=== PATIENT | male | born 1945 | race Caucasian/White ===

== ENCOUNTER → 2017-12-23 06:42 | Outpatient (CLI) | payer MEDICARE, SELFPAY ==
--- NOTE | 2017-12-23 06:42 | DT_ITS ---
This patient was seen during an EMR downtime December 19, 2017 - December 26, 2017. This patient may have a combination of paper and electronic documentation or all paper documentation. All documentation is viewable within the e-chart portion of [employer] for each patient visit.
--- NOTE | 2017-12-23 06:46 | AAAS_ITS ---
Reason For Study: AAA Aorta Measurements Aorta Doppler Measurements Proximal aorta measures1.34 x 1.43cm. in cross- Peak systolic flow velocities within the proximal sectional axis. aorta measure 127 cm/sec. Proximal aorta measures1.34cm. in longitudinal Peak systolic flow velocities within the mid axis. aorta measure 94.9 cm/sec. Mid aorta measures1.52 x 1.45cm. in cross- Peak systolic flow velocities within the distal sectional axis. aorta measure 84.8 cm/sec. Mid aorta measures1.42cm. in longitudinal axis. Distal aorta measures1.35 x 1.36cm. in cross- sectional axis. Distal aorta measures1.36cm. in longitudinal axis. Left Iliac Artery Left iliac artery measures .818 x .800 cm. in the cross-sectional axis. Left iliac artery measures .768 cm. in the longitudinal axis. Peak systolic velocity in the left iliac artery measures 136 cm/sec. Right Iliac Artery Right iliac artery measures .749 x .818 cm. in the cross-sectional axis. Right iliac artery measures .819 cm. in the longitudinal axis. Peak systolic velocity in the right iliac artery measures 83.0 cm/sec. Interpretation Summary No evidence for abdominal aortic aneurysm with maximal mid aortic diameter of 1.52 x 1.45cm Elevated proximal aortic velocities consisten with mild occlusive disease. Normal iliac diameters. Ordering Physician: Luan Brown Performed By: Jaskaran Saini, RVT
--- NOTE | 2017-12-23 06:46 | CT_ITS ---
STUDY: CTA CHEST REASON FOR EXAM: Male, 72 years old. Stenosis and aneurysm RADIATION DOSAGE (If Supplied By Facility): CTDIvol = ( 13.90 ) mGy, DLP = ( 1310.00 ) mGycm TECHNIQUE: The examination was performed with the intravenous administration of 100ML ml of Isovue 370 contrast material. Post-processing of the angiographic images was performed, with multiplanar reformation and 3D reconstruction. Individualized dose optimization techniques were used for this CT. COMPARISON: None. FINDINGS: Normal enhancement of the main pulmonary artery and right and left pulmonary arteries. Normal enhancement of the bilateral peripheral pulmonary arteries. There is no demonstrated pulmonary embolism. Heavy aortic and great vessel calcifications. There is no demonstrated aortic dissection. Normal heart and pericardium. Normal mediastinum. Normal hilar regions. Normal visualized trachea and bronchi. The lungs are well expanded. Normal pulmonary parenchyma. Normal pleura. Normal chest wall structures. Right shoulder arthroplasty. Degenerative spinal changes. Remote rib trauma. Normal visualized upper abdomen. CT/CTA Chest W/WO Contrast IMPRESSION: No thoracic aortic aneurysm or pulmonary embolus. Heavy arterial calcifications. No acute pulmonary findings. Electronically Signed: Eligio Avery MD at 6:40 EDT Tel , Service support ,
--- NOTE | 2017-12-23 06:46 | CT_ITS ---
STUDY: CTA NECK WITH CONTRAST REASON FOR EXAM: Male, 72 years old. Stenosis RADIATION DOSAGE (If Supplied By Facility): CTDIvol = ( 13.90 ) mGy, DLP = ( 1310.00 ) mGycm TECHNIQUE: CT angiography with multi-detector data acquisition was performed from the aortic arch to the skull base following intravenous administration of 100ML ml of Isovue 370 contrast. MIP images were reconstructed from the axial data set. Post-processing of the angiographic images was performed, with multiplanar reformation and 3D reconstruction. Individualized dose optimization techniques were used for this CT. COMPARISON: 04/22/2015 report only FINDINGS: AORTIC ARCH: Extensive calcifications of the great vessels. Otherwise: Normal visualized aortic arch. Normal origins of the brachiocephalic, left common carotid, and left subclavian arteries. RIGHT CAROTID ARTERIES: Normal right common carotid artery (CCA). Heavy circumferential calcified plaque in the carotid bulb. No associated flow limiting stenosis. Residual lumen diameter is 3 mm. Heavy circumferential calcified plaque in the proximal ICA. 60% stenosis, with residual lumen diameter of 2 mm. Normal visualized cervical portion of the right internal carotid artery. Normal origin of the right external carotid artery (ECA). LEFT CAROTID ARTERIES: Normal left common carotid artery (CCA). Mild eccentric calcified plaque in the carotid bulb without flow-limiting stenosis. Residual lumen diameter is 4 mm. Heavy concentric calcified plaque in the proximal ICA without flow-limiting stenosis. Normal visualized cervical portion of the left internal carotid artery. Normal origin of the left external carotid artery (ECA). VERTEBRAL ARTERIES: The right vertebral artery terminates as the posterior inferior cerebellar artery, a normal anatomic variant. CT/CTA Neck W/WO Contrast IMPRESSION: Circumferential calcified plaque in the proximal right ICA with an associated 60% stenosis of that vessel. Heavy calcified plaque in the bilateral carotid bulbs without flow-limiting stenosis at those levels. Electronically Signed: Eligio Avery MD at 6:30 EDT Tel , Service support ,
== END ==
PROVIDERS: Family Provider Family Medicine; PCP Family Medicine; Visit Provider Surgery
DX: I71.4 Abdominal aortic aneurysm, without rupture (principal); I77.1 Stricture of artery; I65.29 Occlusion and stenosis of unspecified carotid artery
CPT/HCPCS: 70498; 71275; 76706; Q9967

== ENCOUNTER 2022-07-03 23:00 | Emergency (ER) | payer MEDICARE, SELFPAY ==
[2022-07-03 23:01] VITALS: BP 177/66; PULSE 88; RESP 18; TEMP 36.2; O2SAT 100
[2022-07-03 23:02] VITALS: BP 177/66; PULSE 88; RESP 16; TEMP 36.2; O2SAT 100; BMI 25.2
--- NOTE | 2022-07-04 00:09 | EDS_ITS ---
HPI History of Present Illness Chief Complaint: Lower Extremity Injury Detail of Chief Complaint: Right ankle redness Informant: patient Onset/Context/Timing Onset: Yesterday Context: Gradual Onset Current Severity: Moderate Maximum Severity: Moderate Narrative Narrative: Patient presents with erythema and pain along the medial aspect of his right ankle. He states he noted symptoms yesterday and is progressed today. He has a history of gout in his knee but has not had a flare in approximately 12 years. He denies any abrasions or skin breakdown to the area. No fever or chills. He is able to ambulate but walks with antalgic gait. [facility] Medical History CAD (coronary artery disease) Carotid stenosis Carotid stenosis, bilateral Chronic back pain GERD (gastroesophageal reflux disease) Gout HTN (hypertension) Osteoarthritis Prominent abdominal aortic pulsation Subclavian arterial stenosis Home Medications aspirin 81 mg tablet,delayed release (Adult Aspirin Regimen) 81 mg PO QDAY 12/09/17 [History Last Taken Unknown] lisinopril 20 mg tablet 20 mg PO QDAY 12/09/17 [History Last Taken Unknown] multivitamin 1 cap PO QDAY 12/09/17 [History Last Taken Unknown] simvastatin 20 mg tablet 20 mg PO QPM 12/09/17 [History Last Taken Unknown] omeprazole 20 mg capsule,delayed release 20 mg PO DAILY 07/03/22 [History Last Taken Unknown] doxycycline monohydrate 100 mg capsule 100 mg PO BID #20 caps 07/04/22 [Rx Last Taken Unknown] hydrocodone-acetaminophen 5-325mg 5mg-325mg 1 tab PO Q6H PRN pain 3 days #10 tabs 07/04/22 [Rx Last Taken Unknown] prednisone 20 mg tablet 40 mg PO DAILY #10 tabs 07/04/22 [Rx Last Taken Unknown] Allergy/AdvReac Type Severity Reaction Status Date / Time No Known Allergies Allergy Verified 12/09/17 14:15 Family History Mother CVA (cerebral vascular accident) Heart disease Hypertension Surgical History S/P eye surgery S/P hip replacement S/P knee replacement S/P shoulder replacement Social History Smoking Status: Never smoker ROS ROS ED Constitutional Constitutional ED: Denies chills or fever(s) Eyes Eyes: Denies change in vision or discharge from eye(s) ENT ENT ED: Denies discharge from eye(s), rhinorrhea or sore throat Cardiovascular Cardiovascular: Denies chest pain or palpitations Respiratory/Chest Respiratory/Chest: Denies cough or dyspnea Gastrointestinal Gastrointestinal: Denies abdominal pain, nausea or vomiting Musculoskeletal Musculoskeletal: Reports extremity pain; Denies back pain Integumentary Reports rash; Denies Abrasions Neurologic Neurologic: Denies headache(s) or weakness Psychiatric Psychiatric: Denies anxiety or depression Allergic/Immunologic Allergic/Immunologic ED: Denies lip swelling or urticaria EXAM Physical Exam Const Vital Signs: 07/03/22 23:02 07/03/22 23:01 Temperature 97.1 F L 97.1 F L Temperature Source Temporal Temporal Pulse Rate 88 88 Respiratory Rate 16 18 Blood Pressure 177/66 H 177/66 H Blood Pressure Mean 103 103 Pulse Ox 100 100 Oxygen Delivery Method Room Air Room Air Positive well nourished and well developed General Appearance ED: well developed HEENT Reports normocephalic and head/scalp atraumatic Eyes PERRL and EOMs intact bilaterally Neck supple Chest Wall inspection of chest normal and palpation of chest normal Resp normal respiratory effort and clear to auscultation bilaterally Cardio regular rate and regular rhythm GI normal to inspection, nondistended, normoactive bowel sounds Palpation: soft Extremity Extremity Narrative: 5 cm diameter round area of erythema along the medial right ankle that is warm to the touch. There is no open skin wound. No calf tenderness or edema. Neuro oriented x3 and no sensory deficits noted Sensorium / Orientation: alert Motor Exam: strength 5/5 throughout Psych mental status grossly normal MDM MDM MDM Narrative Medical decision making narrative: I discussed with the patient that my suspicion is this is a gout flare. This could also represent a cellulitis. He will be covered with both steroids and antibiotics. I will also write him [place] for pain. was concerned about possible blood clot. While I think this is unlikely, I will have him come back tomorrow for an ultrasound when this is available to be thorough. Patient is comfortable with the plan. Discharge Plan Triage Chief Complaint: Lower Extremity Injury ED Provider: Keiko Munguia Dx/Rx/DC Orders Clinical Impression: Gout Instructions: ED Gout Prescriptions: New doxycycline monohydrate 100 mg capsule 100 mg PO BID Qty: 20 0RF hydrocodone-acetaminophen 5-325 mg tablet 1 tab PO Q6H PRN (Reason: pain) 3 Days Qty: 10 0RF prednisone 20 mg tablet 40 mg PO DAILY Qty: 10 0RF No Action lisinopril 20 mg tablet 20 mg PO QDAY simvastatin 20 mg tablet 20 mg PO QPM aspirin [Adult Aspirin Regimen] 81 mg tablet,delayed release (DR/EC) 81 mg PO QDAY multivitamin capsule capsule 1 cap PO QDAY omeprazole 20 mg capsule,delayed release(DR/EC) 20 mg PO DAILY Other Ambulatory Orders: Venous Duplex US, Unilateral (Stat) Facility: [facility] - Location: [facility] Ordered By: Dr. Keiko Munguia Primary Care Provider: Nolan Vigil Referrals: Nolan Vigil MD [Primary Care Provider] - Zoran Cline DPM [Med Staff - Active Staff] - 5-7 Days Disposition Disposition: Home, Self Care Discharge Date/Time: 07/04/22 00:52
[2022-07-04] MEDS: HYDROcodone Bitartrate/Apap 5/325 Tablet PO (00:31)
[2022-07-04] MEDS: predniSONE 20 MG Tablet 60 MG PO (00:32)
[2022-07-04] MEDS: Doxycycline 100 MG CAPSULE PO (00:32)
== END 2022-07-04 00:52 | disposition home or self-care (01) ==
LOC: ED 07-04 00:26
PROVIDERS: Emergency Provider Emergency Medicine; PCP Family Medicine; Visit Provider Emergency Medicine
DX: M10.9 Gout, unspecified (principal); I25.10 Atherosclerotic heart disease of native coronary artery without angina pectoris; I10 Essential (primary) hypertension; M54.9 Dorsalgia, unspecified; G89.29 Other chronic pain; Z79.82 Long term (current) use of aspirin; Z79.899 Other long term (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; Z79.52 Long term (current) use of systemic steroids
CPT/HCPCS: 99283

== ENCOUNTER → 2022-07-04 | Outpatient (CLI) | payer MEDICARE, SELFPAY ==
--- NOTE | 2022-07-04 10:59 | VDLE_ITS ---
Reason For Study: RLE PAIN (ankle) RIGHT GSV is normal. CFV is compressible, spontaneous, phasic, competent and demonstrates normal augmentation. FV is compressible, spontaneous, phasic, competent and demonstrates normal augmentation. POP V is compressible, spontaneous, phasic, competent and demonstrates normal augmentation. T/P Trunk is compressible. PTV is compressible. RT PerV is compressible. Procedure This is a venous duplex using B-mode, color flow and spectral Doppler. Exam performed in department. A preliminary report was called and/or faxed to Nolan Vigil & ED. VL/Venous Duplex US, Unilateral Interpretation Summary Deep veins of the right lower extremity are patent and compressible segmentally . There is no evidence of right lower extremity deep vein thrombosis. The right great sapheno us vein appears patent and compressible segmentally. Ordering Physician: Keiko Munguia Referring Physician: Nolan Vigil Performed By: Dora Akins, DAVID, RVT
== END | disposition home or self-care (01) ==
LOC: VL 10:53
PROVIDERS: PCP Family Medicine; Referring Provider Emergency Medicine; Visit Provider Emergency Medicine
DX: M79.661 Pain in right lower leg (principal)
CPT/HCPCS: 93971

== ENCOUNTER → 2022-09-24 | Outpatient (CLI) | payer MEDICARE, SELFPAY ==
--- NOTE | 2022-09-24 10:48 | STRESSREP_ITS ---
Stress Test Report Date: 09/24/2022 Procedure: Pharmacologic stress nuclear imaging study Indications: Atrial fibrillation/dyspnea Consent: Per the patient Procedure: The patient underwent pharmacologic (Regadenoson 0.4mg ) evaluation with a peak heart rate of 111 beats per minute (77%predicted maximal heart rate) and a peak blood pressure of 120/62 mmHg. The baseline ECG demonstrated atrial fibrillation. The peak pharmacologic ECG demonstrated no significant changes. There were no cardiac dysrhythmias pretest, during pharmacologic infusion, or recovery. There was no complaint of chest discomfort during pharmacologic infusion or recovery. The patient was injected with 15.0 millicuries of technetium 99m Cardiolite and subsequently rest SPECT Cardiolite nuclear imaging was obtained in the horizontal long, vertical long, and short axis views. The patient underwent pharmacologic (Regadenoson) evaluation. The patient was injected with 45.0 millicuries of technetium 99m Cardiolite and subsequently stress SPECT Cardiolite nuclear imaging was obtained in the horizontal long, vertical long, and short axis views. A gated Cardiolite study at peak stress was obtained. The examination was stopped secondary to completion of protocol. Rest and stress SPECT Cardiolite nuclear imaging status post realignment, normalization, and attenuation correction demonstrate moderate apical and septal reversible defect. There is end systolic thickening and brightening. The gated Cardiolite study demonstrates myocardial thickening and inward wall motion. The reported LVEF is 49%. Impression: 1. Pharmacologic (Regadenoson) evaluation 2. Peak pharmacologic ECG with no ischemic changes. 3. There were no cardiac dysrhythmias pretest, during pharmacologic infusion, or recovery. 5. Moderate size anterior apical and septal reversible defect suggestive of ischemia. 6. The gated Cardiolite study reports an LVEF of 49%. This note was generated with [employer] software. It may contain incorrect words, spelling, and punctuation that were not noted in checking the note before signing.
== END | disposition home or self-care (01) ==
LOC: CVS 06:20
PROVIDERS: PCP Family Medicine; Referring Provider Internal Medicine Cardiovascular Disease; Visit Provider Internal Medicine Cardiovascular Disease
DX: I48.91 Unspecified atrial fibrillation (principal); I42.9 Cardiomyopathy, unspecified; R06.02 Shortness of breath
CPT/HCPCS: 78452; 93017; A9500; A4216; J2785

== ENCOUNTER 2022-10-06 12:33 | Observation (INO) | payer MEDICARE, SELFPAY ==
[2022-10-04 08:31] LABS: Hematocrit 36.7 % (40-54); Hemoglobin 11.9 g/dL (13.0-16.5); Mean Corp Hgb Conc 32.4 g/dL (32-36); Mean Corpuscular Hgb 30.3 pg (27.0-32.0); Mean Corpuscular Volume 93.4 fL (80-94); Mean Platelet Vol. 10.5 fl (6.2-12.0); Platelet Count 176 K/mm3 (150-450); RBC Distribution Width CV 14.8 % (11.6-14.6); RBC Distribution Width SD 49.7 fl (35.1-43.9); Red Blood Count 3.93 M/mm3 (4.6-6.2); White Blood Count 10.4 K/mm3 (4.4-11.0)
[2022-10-04 08:56] LABS: International Normalized Ratio 1.4; Prothrombin Time (Protime)PT. 16.4 SECONDS (11.7-14.9)
[2022-10-04 08:57] LABS: Partial Thromboplast Time 30.2 Seconds (24.1-36.2)
[2022-10-04 09:04] LABS: Anion Gap 7 (5-15); BUN 20 mg/dL (7-18); BUN/Creat Ratio 17.1 RATIO (10-20); Calcium,Total 8.9 mg/dL (8.5-10.1); Chloride 108 mmol/L (98-107); Creatinine, Serum 1.17 mg/dL (0.70-1.30); EST Glomerular Filtration Rate 64 mL/min (>60); Est Glom Filt Rate - Afr Amer 78 mL/min (>60); Glucose 100 mg/dL (74-106); Potassium 4.1 mmol/L (3.5-5.1); Sodium Level 140 mmol/L (136-145)
[2022-10-05 06:58] VITALS: BMI 25.2
[2022-10-06] VITALS (8 sets, daily range): BP systolic 110–146; BP diastolic 60–81; PULSE 60–85; RESP 16–17; TEMP 36.5–36.6; O2SAT 96–100
--- NOTE | 2022-10-06 12:21 | CL.I_ITS ---
Patient Name: TRINH FOX Study Date: 10/06/2022 Performing: Osbaldo Vernon MD Ht: 70 inches 177.8 cm : 1945 Wt: 176 lbs 79.83 kg Age: 77 Gender: male BSA: 1.98 PROCEDURE(S) PERFORMED DC01-(75116)LHC/COR/LV IC12-([id number])CALE W/WO PTCA, SINGLE CORONARY ARTERY IC10-([id number])FFR, CORONARY OR GRAFT, INITIAL VESSEL IC02-([id number])PTCA, EACH ADD'L CORONARY ART, SAME MAJOR CLINICAL PROFILE AND CO-MORBIDITIES Indications: Suspected CAD, Cardiomyopathy Heart Failure: None Stress/Imaging Stress Test w/SPECT MPI: Yes Result: Positive Intermediate Risk Stress Test with SPECT MPI: Positive Intermediate Risk CAD Presentations: Other: Dyspnea on exertion CONCLUSIONS LVEF 35% [place] Aorta Heavily calcified ulcerated lesion Prox Right Inominate Artery. Procedure completed through femoral approach. RECOMMENDATIONS Plavix for at least 12 months Continue Eliquis DESCRIPTION OF PROCEDURE The patient arrived to the procedure lab. The risks and benefits of the procedure as well as a full description of our services here and lack of surgical backup were fully explained to the patient and/or their significant other prior to the catheterization. The Timeout was completed, verifying the correct patient and procedure. The patient's procedural site was prepped and draped in the usual fashion. Local anesthetic was given subcutaneously to right radial region with Lidocaine 2%. Local anesthetic was given subcutaneously to right groin region with Lidocaine 2%. Using a modified Seldinger technique, arterial access was obtained via the right radial artery, a 6Fr sheath was inserted., arterial access was obtained via the right femoral artery, a 6Fr sheath was inserted.. Left Coronary Artery selective angiography was performed in multiple views using a 6 Fr. JL4 catheter. Right Coronary Artery selective angiography was then performed in multiple views using a 6 Fr. 3DRC (Peng) catheter. Left Ventriculography was performed in ARREAGA projection using a 6 Fr. Pigtail catheter. LV to AO pullback pressures were then recordedThe images were reviewed and options discussed. A decision was then made to proceed with an Intervention, IVUS or other adjunct procedure. The FFR/iFR wire was inserted. iFR measurements were performed. iFR Ratio: .85 The FFR/iFR wire was then removed. xb 3.0 Guide catheter was inserted and engaged into the LCA. runtrhough Guide wire was advanced to the 1st OM. emerge 2.00 x 15 Balloon catheter was advanced across lesion in the first obtuse marginal, ostial. PTCA balloon inflated at 8 atms for 15 secs. Angiogram performed post balloon dilatation. dee 2.5 x 18 Drug Eluting stent was advanced across the lesion in the first obtuse marginal, ostial. Angiogram performed post stent deployment. runthrough Guide wire was advanced to the Circumflex. 2.5 x 15 nc euphora Balloon catheter was inserted post stent. emerge 1.5 x 8 Balloon catheter was inserted on circ wire PTCA balloon inflated at 10 atms for 18 secs. emerge 2.0 x 8 Balloon catheter was advanced across lesion in the circumflex, mid. PTCA balloon inflated at 10 atms for 20 secs. Angiogram performed post balloon dilatation. nc emerge 2.75 x 8 Balloon catheter was inserted post stent. Angiogram performed post balloon dilatation. runthrough Guide wire was advanced to the OM1 dee 2.25 x 8 Drug Eluting stent was advanced across the lesion in the first obtuse marginal, ostial. nc euphora 2.5 x 15 Balloon catheter was inserted post stent. Angiogram performed post balloon dilatation. Contrast was injected through the sheath and the Right Iliac and Femoral artery were assessed for possible closure device. The arterial sheath was pulled and a Perclose closure device was deployed for hemostasis CORONARY ANGIOGRAPHY DOMINANCE: Right Dominant LEFT HEART ASSESSMENT Left Ventricular Ejection Fraction: by LV Gram 35 % Normal Left Ventricular End Diastolic Pressure LEFT MAIN: Calcified but no significant luminal stenosis LEFT ANTERIOR DESCENDING ARTERY: Heavily calcified Prox segment but no significant luminal stenosis; 50% Mid LAD LAD: Tubular 50% Mid lesion in LAD OM 1: Tubular 90% Ostial lesion in 1st OM RIGHT CORONARY ARTERY: Mild luminal irregularities INTERVENTION INFORMATION LESION SITE: 1st OM (Ostial) Lesion Complexity: Non-High/Non-C Pre Stenosis: 90 % Pre intervention TORSTEN flow: 3 PROCEDURE: Drug Eluting Stent with pre and post dilatation Post Stenosis: 0 % Post intervention TORSTEN flow: 3 Lesion Devices: Cordis 6 Fr XB3.0 100cm Guide Catheter Spreadsave (PNMsoft) Coronary FFR Wire Preston Sci EMERGE MR 2.00x15 BALLOON Medtronic Resolute Dee RX CALE 2.5x18 Medtronic NC EUPHORA RX 2.5x15 BALLOON Preston Sci NC EMERGE MR 2.75x08 BALLOON Terumo .014 180cm Runthrough Extra Floppy straight Medtronic Resolute Dee RX CALE 2.25x08 Preston Sci EMERGE MR 2.00x08 BALLOON LESION SITE: Circumflex (Mid) Lesion Devices: Cordis 6 Fr XB3.0 100cm Guide Catheter Terumo .014 180cm Runthrough Extra Floppy straight Preston Sci EMERGE MR 1.50x08 BALLOON COMPLICATIONS No Complications PROCEDURE MEDICATIONS Versed 1 mg IV Fentanyl 50 mcg IV Fentanyl 50 mcg IV Fentanyl 50 mcg IV Oxygen: 2 L/min via nasal cannula Aspirin (325mg) 1 Tabs PO 10/06/2022 08:38:15 Brilinta 180 mg PO 10/06/2022 11:05:20 Atropine 1mg/10ml 1 amp @ 10/06/2022 12:18:31 Heparin given IA 10/06/2022 10:21:14 Heparin 3000 unit(s) IV 10/06/2022 10:26:50 Heparin 2000 unit(s) IV 10/06/2022 11:05:11 Heparin 1000 unit(s) IV 10/06/2022 11:09:22 Heparin 2000 unit(s) IV 10/06/2022 11:09:48 Nitro 200 mcg IC 10/06/2022 11:09:11 Nitro 200 mcg IC 10/06/2022 11:09:11 Verapamil 2.5mg, Ntg 200mcgs, 2000 units of Heparin given IA 10/06/2022 10:21:14 SUMMARY OF HEMODYNAMIC DATA Time AIR REST ECG 10:16:47 AO 103/62 (77) SA 10:25:13 LV 133/6, 18 10:44:50 LV 146/7, 20 10:44:59 LV 132/15, 24 10:46:10 LVp 136/21, 35 10:46:18 AOp 135/53 (90) 10:46:26 ECG 12:20:11 12:20:11 Signed By Osbaldo Vernon MD On 10/06/2022 12:20:14 Osbaldo Vernon MD
--- NOTE | 2022-10-06 13:28 | CRPHASE1 ---
Patient Communication PHII Cardiac Rehab Discussed with Patient:: Yes Guide to Cardiac Rehab Given to Patient:: Yes Cardiac Rehab Facility Choice List Given to Patient:: Yes Choice Program [facility] CR PHII:: Communication Given to CR Choice Program Other:: Communication Given to CR Commercial Attorney:: Osbaldo Vernon Phase II Cardiac Rehab:: Yes Sessions:: 36 sessions - 3 days/wk, 12 weeks Cardiac Rehabilitation Info Cardiac Rehabilitation Program Information: Cardiac Rehab The cardiac rehab team at [facility] consists of highly skilled exercise physiologists, nurses, respiratory therapists and physicians working together with you. Our purpose is to help you have a full recovery and achieve the goals you set for yourself. Over the years many of our patients have returned to activities they assumed they would never do again! We can help restore your confidence and motivation to make lifestyle changes that can have a significant impact on your health and quality of life! We can help answer questions and concerns you may have about exercise, lifestyle, medications, diet, stress and anxiety which are common following a hospitalization. WE monitor ECG and vital signs during exercise and discuss your progress with you and report to your physician(s). Cardiac Rehab is proven to help reduce readmissions, improve functional capacity and lower recurrence of problems with your heart. Our Cardiac Rehab program is Certified by the [place] [employer]-Vascular and Pulmonary [employer] (AACVPR) and Accredited by the [place] [employer] through our [facility]. You can contact us at . We invite you to call us with your questions or to get started in our program. If you have other questions or concerns be sure to ask your physician/provider during your follow-up visit. WE look forward to seeing you!
--- NOTE | 2022-10-06 13:29 | CRPH1.INSTRU ---
General Education CAD and cardiac anatomy and function:: Patient communicates acknowledgment Explanation of diagnoses and procedures:: Patient communicates acknowledgment Sign/Symptoms of MN:: Patient communicates acknowledgment Antiplatelet therapy: Patient communicates acknowledgment Smoking Patient Nicotine/Smoking Risk Factors Are:: Non-smoker Recommendations Include:: Previous smoker; encourage continued cessation Nicotine/Smoking Response Code:: Patient communicates acknowledgment Dyslipidemia Patient Dyslipidemia Risk Factors Are:: Total Cholesterol, Triglycerides, HDL, LDL Recommendations Include:: Lipid profile not available, Reviewed NCEP/ATP guidelines, Therapeutic Lifestyle Change dietary guidelines Dyslipidemia Response Code:: Patient communicates acknowledgment Overweight/Obesity Patient Overweight/Obesity Risk Factors Are:: BMI Normal [24-29 & > 65 years old] Hypertension Recommendations Include:: Maintain BP <130/85, DASH dietary guidelines, Decrease/maintain normal body weight, Moderation of ETOH Hypertension:: Patient communicates acknowledgment Diabetes Patient Diabetes Risk Factors Are:: No documented hx of diabetes Metabolic Syndrome Recommendations Include:: Does not meet criteria Sedentary Recommendations Include:: Aerobic exercise 5-7 times/week for 20-30 minutes continuously, Benefits of regular exercise, Discussed home walking program, Monitored Outpatient Cardiac Rehab Sedentary Response Code:: Patient communicates acknowledgment Stress Recommendations Include:: Identification of stressors, and assessment of coping skills, Stress management techniques Stress Response Code:: Patient communicates acknowledgment
[2022-10-06] MEDS: 0.9% Normal Saline 1,000 ML 75 ML IV (14:45)
--- NOTE | 2022-10-06 14:55 | EKG12_ITS ---
Test Reason : POSTPCI Blood Pressure : / mmHG Vent. Rate : 086 BPM Atrial Rate : 000 BPM P-R Int : 000 ms QRS Dur : 138 ms QT Int : 396 ms P-R-T Axes : 000 -74 043 degrees QTc Int : 473 ms Atrial fibrillation with premature ventricular or aberrantly conducted complexes Right bundle branch block Left anterior fascicular block Bifascicular block Abnormal ECG Confirmed by DEEPAK VIDALES, PETER ([id number]), editorial director GRETEL ESPINO ([id number]) on 10/12/2022 9:08:49 AM Referred By: Osbaldo Vernon Confirmed By:PETER SOTELO MD
[2022-10-06] MEDS: Allopurinol 100 MG Tablet PO (18:14)
[2022-10-06] MEDS: Clopidogrel Bisulfate 300 MG Tablet PO (19:59)
[2022-10-06] MEDS: MELATONIN 10 MG TABLET 5 MG PO (21:52)
[2022-10-06] MEDS: Atorvastatin Calcium 10 MG Tablet PO (21:53)
[2022-10-07 04:17] VITALS: BP 115/84; PULSE 87; RESP 18; TEMP 36.8; O2SAT 95
[2022-10-07 05:50] LABS: Hemoglobin 10.9 g/dL (13.0-16.5); Mean Corp Hgb Conc 32.1 g/dL (32-36); Mean Corpuscular Hgb 30.1 pg (27.0-32.0); Mean Corpuscular Volume 93.9 fL (80-94); Mean Platelet Vol. 10.3 fl (6.2-12.0); Platelet Count 156 K/mm3 (150-450); RBC Distribution Width CV 15.5 % (11.6-14.6); RBC Distribution Width SD 52.7 fl (35.1-43.9); Red Blood Count 3.62 M/mm3 (4.6-6.2); White Blood Count 9.3 K/mm3 (4.4-11.0)
[2022-10-07 06:21] LABS: AST(SGOT) 22 U/L (15-37); Alanine Aminotransfer ALT/SGPT 59 U/L (16-61); Alkaline Phosphatase 67 U/L (45-117); Anion Gap 8 (5-15); BUN 15 mg/dL (7-18); BUN/Creat Ratio 15.4 RATIO (10-20); Calcium,Total 8.7 mg/dL (8.5-10.1); Chloride 111 mmol/L (98-107); Cholesterol 115 mg/dL (200); Creatinine, Serum 0.98 mg/dL (0.70-1.30); EST Glomerular Filtration Rate 79 mL/min (>60); Est Glom Filt Rate - Afr Amer 96 mL/min (>60); Estimated Creatinine Clearance 65.18 ml/min; Globulin 2.9 g/dL (2.2-4.2); Glucose 103 mg/dL (74-106); High Density Lipoprotein 42 mg/dL; Protein, Total 5.9 g/dL (6.4-8.2); Sodium Level 143 mmol/L (136-145); Triglycerides 121 mg/dL; Very Low Density Lipoprotein 24 mg/dL (5-40)
--- NOTE | 2022-10-07 07:52 | NURSING ---
Pt ambulated up in jay, reassessed groin site. Site soft, no bleeding or signs of hematoma noted.
[2022-10-07 08:07] VITALS: O2SAT 97
[2022-10-07 08:23] VITALS: BP 135/92; PULSE 96; RESP 18; TEMP 36.9; O2SAT 97
[2022-10-07 08:24] VITALS: BP 135/92; PULSE 96
[2022-10-07] MEDS: Clopidogrel Bisulfate 75 MG Tablet PO (08:24)
[2022-10-07] MEDS: Metoprolol(XL)Succ 25 MG Tablet PO (08:24)
[2022-10-07] MEDS: APIXABAN 5 MG TABLET PO (08:24)
[2022-10-07] MEDS: Pantoprazole Sodium 20 MG Tablet PO (08:24)
[2022-10-07] MEDS: Allopurinol 100 MG Tablet PO (08:24)
[2022-10-07] MEDS: Lisinopril 2.5 MG Tablet PO (08:25)
--- NOTE | 2022-10-07 08:40 | PCM.PN.BLA ---
Progress Note Denies any complaints today. Ambulating. Right groin and right wrist stable. No hematoma or bruit. Discharge home. Follow-up as outpatient.
--- NOTE | 2022-10-07 08:50 | DCINST_ITS ---
Discharge Instructions Diet Discharge Diet: Low fat / Low cholesterol Activity May resume sexual activity in: 1-2 weeks Lifting Restrictions: No heavy lifting, bending or strenuous physical activity for 1 week Dressing / Incision Call your doctor if your incision/area has: Continuous Slow Oozing, Sudden Increased Bleeding, Increased Pain/ Swelling, Increased Redness, Foul Smelling Discharge and Swelling at the incision site Follow Up Care Please Follow Up With: Osbaldo Vernon MD When: 2 to 4 weeks Test Results: Test results from this visit will be discussed in further detail at your follow- up appointment, if applicable. Discharge Plan Admission Admit Date/Time: 10/06/22 12:33 Attending Provider: Osbaldo Vernon Primary Care Provider: Nolan Vigil Discharge Orders/Prescriptions Prescriptions: New clopidogrel 75 mg Tablet 75 mg PO DAILY Qty: 90 4RF Continued simvastatin 20 mg tablet 20 mg PO QPM sildenafil 100 mg tablet 100 mg PO DAILY PRN (Reason: sexual activity) Rx Instructions: Take 0.5-1 tab by mouth 1 hour before activity coenzyme Q10 100 mg capsule 100 mg PO DAILY omega 3-sav-vst-fish oil 500-100-1,000 mg capsule 1 cap PO DAILY multivitamin Liquid 5 ml PO DAILY Eliquis 5 mg tablet 5 mg PO BID metoprolol succinate 25 mg tablet extended release 24 hr 25 mg PO DAILY allopurinol 100 mg tablet 100 mg PO BID pantoprazole 20 mg tablet,delayed release (DR/EC) 20 mg PO DAILY benzonatate 100 mg capsule 100 mg PO TID PRN (Reason: cough) potassium gluconate 595 mg (99 mg) tablet 595 mg PO BID melatonin 5 mg capsule 5 mg PO QHS furosemide [Lasix] 40 mg tablet 40 mg PO DAILY PRN (Reason: Pt has gout, wants to take PRN) lisinopril 2.5 mg tablet 2.5 mg PO DAILY Qty: 30 11RF Referrals / Follow Up: Nolan Vigil MD [Primary Care Provider] - Disposition Disposition (needs filled in before D/C Order can be placed): Home, Self Care
[2022-10-07 12:44] VITALS: BP 119/81; PULSE 92; RESP 16; TEMP 36.8; O2SAT 97
== END 2022-10-07 08:49 | disposition home or self-care (01) ==
LOC: CLSP 13:46 → PCU 14:05
PROVIDERS: Admitting Provider Internal Medicine Cardiovascular Disease; PCP Family Medicine; Referring Provider Internal Medicine Cardiovascular Disease; Visit Provider Internal Medicine Cardiovascular Disease
DX: R06.09 Other forms of dyspnea (principal); I42.9 Cardiomyopathy, unspecified; I48.20 Chronic atrial fibrillation, unspecified; I25.10 Atherosclerotic heart disease of native coronary artery without angina pectoris; I10 Essential (primary) hypertension; E78.5 Hyperlipidemia, unspecified; Z79.899 Other long term (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; Z79.82 Long term (current) use of aspirin; I65.23 Occlusion and stenosis of bilateral carotid arteries; N52.9 Male erectile dysfunction, unspecified
CPT/HCPCS: 36415; 80048; 80053; 80061; 85027; 85610; 85730; 92921; 92928; 93005; 93458; 93571; 96360; 96361; 99152; 99153; 99221; J7030; J7040; Q9967; C1725; C1760; C1769; C1874; C1887; C1894; C9600; G0378; J2405

== ENCOUNTER → 2022-11-12 | Outpatient (CLI) | payer MEDICARE, SELFPAY ==
[2022-11-12 10:33] LABS: Anion Gap 4 (5-15); BUN 22 mg/dL (7-18); BUN/Creat Ratio 22.3 RATIO (10-20); Calcium,Total 8.8 mg/dL (8.5-10.1); Chloride 110 mmol/L (98-107); Creatinine, Serum 0.98 mg/dL (0.70-1.30); EST Glomerular Filtration Rate 78 mL/min (>60); Est Glom Filt Rate - Afr Amer 95 mL/min (>60); Glucose 138 mg/dL (74-106); Potassium 4.2 mmol/L (3.5-5.1); Sodium Level 136 mmol/L (136-145)
== END | disposition home or self-care (01) ==
LOC: LAB 08:58
PROVIDERS: PCP Family Medicine; Referring Provider Internal Medicine Cardiovascular Disease; Visit Provider Internal Medicine Cardiovascular Disease
DX: I25.10 Atherosclerotic heart disease of native coronary artery without angina pectoris (principal); I42.9 Cardiomyopathy, unspecified; I48.91 Unspecified atrial fibrillation; Z95.5 Presence of coronary angioplasty implant and graft
CPT/HCPCS: 36415; 80048

== ENCOUNTER → 2022-11-16 | Outpatient (CLI) | payer MEDICARE, SELFPAY ==
[2022-11-16 10:42] LABS: Absolute Neutrophil Count 7.7 X10^3/uL (2.0-7.7); Basophil# 0.05 X10^3/uL; Basophil% 0.4 % (0-1); Eosinophil# 0.11 X10^3/uL; Eosinophils% 0.9 % (0-5); Hematocrit 42.8 % (40-54); Hemoglobin 13.1 g/dL (13.0-16.5); Lymphocyte % 26.4 % (19-41); Mean Corp Hgb Conc 30.6 g/dL (32-36); Mean Corpuscular Hgb 28.4 pg (27.0-32.0); Mean Corpuscular Volume 92.8 fL (80-94); Mean Platelet Vol. 10.8 fl (6.2-12.0); Monocyte# 0.92 X10^3/uL; Monocyte% 7.6 % (0-10); NRBC Flagged by Analyzer 0.2 % (0-5); Neutrophil % 63.7 % (47-70); Platelet Count 240 K/mm3 (150-450); RBC Distribution Width CV 15.7 % (11.6-14.6); Red Blood Count 4.61 M/mm3 (4.6-6.2); White Blood Count 12.1 K/mm3 (4.4-11.0)
[2022-11-16 10:55] LABS: Erythrocyte Sedimentation Rate 15 mm/hr (0-20)
[2022-11-16 11:05] LABS: ALB/GLOB Ratio 1.1 RATIO (0.9-2.4); AST(SGOT) 50 U/L (15-37); Alanine Aminotransfer ALT/SGPT 96 U/L (16-61); Albumin, Serum 3.6 g/dL (3.2-5.0); Alkaline Phosphatase 97 U/L (45-117); Anion Gap 7 (5-15); BUN 25 mg/dL (7-18); BUN/Creat Ratio 21.7 RATIO (10-20); CRP < 2.90 mg/L (0.0-3.0); Calcium,Total 8.9 mg/dL (8.5-10.1); Chloride 112 mmol/L (98-107); Creatinine, Serum 1.15 mg/dL (0.70-1.30); EST Glomerular Filtration Rate 66 mL/min (>60); Est Glom Filt Rate - Afr Amer 79 mL/min (>60); Globulin 3.4 g/dL (2.2-4.2); Glucose 100 mg/dL (74-106); Potassium 3.9 mmol/L (3.5-5.1); Rheumatoid Factor < 10.0 IU/mL (<15); Sodium Level 142 mmol/L (136-145)
[2022-11-16 11:27] LABS: Hepatitis B Surface Antibody Non-Reactive; Hepatitis B Surface Antigen Non-Reactive (Nonreactive); Hepatitis C Antibody Non-Reactive (Nonreactive)
[2022-11-17 12:08] LABS: ANTINUCLEAR ANTIBODIES DIRECT Negative (Negative)
[2022-11-22 17:07] LABS: CCP IgG Antibodies 3 units (0-19); HLA B27 Negative (.)
== END | disposition home or self-care (01) ==
LOC: MTLAB 07:53
PROVIDERS: PCP Family Medicine; Referring Provider Internal Medicine Rheumatology; Visit Provider Internal Medicine Rheumatology
DX: M06.4 Inflammatory polyarthropathy (principal); M10.9 Gout, unspecified
CPT/HCPCS: 36415; 80053; 81374; 85025; 85652; 86038; 86140; 86200; 86431; 86706; 86803; 87340

== ENCOUNTER → 2022-12-18 | Outpatient (CLI) | payer MEDICARE, SELFPAY ==
--- NOTE | 2022-12-18 07:56 | US_ITS ---
STUDY: ABDOMINAL ULTRASOUND - RIGHT UPPER QUADRANT REASON FOR VISIT: Male, 77 years old ELEVATED LIVER ENZYMES TECHNIQUE: Ultrasound evaluation of the right upper quadrant was performed with real-time and static doherty-scale imaging. TECHNICAL QUALITY: Adequate. COMPARISON: None. FINDINGS: Liver: The liver measures 14.4 cm. There is normal echogenicity of the liver. The bile ducts are within normal limits. There is hepatic color flow. The direction of portal flow is hepatopetal. Probable 7 mm right lobe hemangioma. Gallbladder: Normal distended gallbladder. The gallbladder wall measures 7.3 mm. There is a negative sonographic Wahl''s sign. There is no pericholecystic fluid. There are no gallstones. Common Bile Duct (C.B.D.): The common bile duct measures 4 mm. Pancreas: Normal size of the head, body and tail of the pancreas. There is normal echogenicity of the pancreas. There is no demonstrated pancreatic mass or cyst. Right Kidney: Normal size of the right kidney. The right kidney measures 11.5 cm. Normal renal cortex. The right cortex measures 1.2 cm. There is no demonstrated renal mass or cyst. There is no right hydronephrosis. US/Liver IMPRESSION: Significantly thickened gallbladder wall, otherwise unremarkable exam. Electronically Signed: Masood Urbina MD at 16:52 EDT ,
== END | disposition home or self-care (01) ==
LOC: US 07:52
PROVIDERS: PCP Family Medicine; Referring Provider Internal Medicine Rheumatology; Visit Provider Internal Medicine Rheumatology
DX: M06.4 Inflammatory polyarthropathy (principal); I42.9 Cardiomyopathy, unspecified; I48.20 Chronic atrial fibrillation, unspecified; M10.9 Gout, unspecified; I10 Essential (primary) hypertension; I25.10 Atherosclerotic heart disease of native coronary artery without angina pectoris; I65.23 Occlusion and stenosis of bilateral carotid arteries; E78.5 Hyperlipidemia, unspecified; N52.9 Male erectile dysfunction, unspecified
CPT/HCPCS: 76705

== ENCOUNTER 2022-12-25 06:29 | Emergency (ER) | payer MEDICARE, SELFPAY ==
[2022-12-25] VITALS (7 sets, daily range): BP systolic 111–142; BP diastolic 50–78; PULSE 57–70; RESP 14–18; TEMP 35.8–36.7; O2SAT 96–100; BMI 25.7
--- NOTE | 2022-12-25 06:30 | EKG12_ITS ---
Test Reason : SOB Blood Pressure : / mmHG Vent. Rate : 079 BPM Atrial Rate : 079 BPM P-R Int : 170 ms QRS Dur : 152 ms QT Int : 436 ms P-R-T Axes : 076 -77 071 degrees QTc Int : 499 ms Sinus rhythm with frequent Premature ventricular complexes Right bundle branch block Left anterior fascicular block Bifascicular block Abnormal ECG Confirmed by DEEPAK VIDALES, PETER ([id number]), assistant editor GRETEL ESPINO ([id number]) on 12/27/2022 1:16:26 PM Referred By: CYNDIE Confirmed By:PETER SOTELO MD
--- NOTE | 2022-12-25 06:51 | CT_ITS ---
HISTORY: dyspnea. TECHNIQUE: CT angiogram of the chest was performed after the intravenous administration of 100 mL Isovue-370. Post-processing of the angiographic images was performed with multiplanar reformation and 3D reconstruction. Individualized dose optimization techniques were used for this CT. 1170 images. COMPARISON: 12/23/2017. FINDINGS: CENTRAL AIRWAYS: Patent. LUNGS: Very mild centrilobular emphysema. Small calcified right upper lobe granuloma. Mild septal thickening and groundglass opacities in the bilateral lower lobes. PLEURA: Mild bilateral pleural effusions. HEART/PERICARDIUM: Heart upper limits of normal in size with coronary artery disease. No pericardial effusion. PULMONARY ARTERIES: No filling defect. AORTA/VESSELS: Advanced atherosclerosis in the nondilated thoracic aorta. MEDIASTINUM/KUSH: No pathologically enlarged lymph nodes. OSSEOUS STRUCTURES: Right shoulder arthroplasty in place. Degenerative change. Chronic mild T7 compression fracture. UPPER ABDOMEN: Mild ascites and gallbladder wall edema. CT/CTA Chest W/WO Contrast IMPRESSION: No evidence of pulmonary embolism. Mild pulmonary edema with mild pleural effusions. Anasarca with mild ascites and gallbladder wall edema. Electronically Signed: Nae Wright MD at 8:47 EDT ,
--- NOTE | 2022-12-25 06:56 | EDS_ITS ---
HPI History of Present Illness Chief Complaint: Shortness of Breath Narrative Narrative: Patient is a 77-year-old male with past medical history of hypertension and hyperlipidemia as well as CAD requiring 2 stents placed in September of this year. He also has atrial fibrillation and is on Eliquis. He underwent an ablation for his A-fib on Tuesday, December 20 and stayed 1 night in the hospital and went home. He states that he did not have to stop his Eliquis for the procedure. He states that he then was started on amiodarone following the ablation. He reports that he has had shortness of breath since the procedure but last night and this morning had worsening symptoms and with this comes in for evaluation. He denies any history of lung disorder such as COPD emphysema or asthma. He states there is no fevers chills or cough/congestion associated with this but simply a sensation of shortness of breath PFSH [facility] Medical History Allergic rhinitis Atherosclerotic heart disease of [place] coronary artery without angina pectoris Atrial fibrillation Avascular necrosis Benign neoplasm of colon CAD (coronary artery disease) Cardiomyopathy Carotid stenosis, bilateral Chronic back pain Diverticulosis of colon Erectile dysfunction Essential (primary) hypertension GERD (gastroesophageal reflux disease) Gout Hepatomegaly Mixed hyperlipidemia Osteoarthritis PAD (peripheral artery disease) Presence of stent in coronary artery (~10/06/22) Prominent abdominal aortic pulsation Snoring Subclavian arterial stenosis Home Medications simvastatin 20 mg tablet 20 mg PO QPM cholesterol 12/09/17 [History Last Taken Unknown] allopurinol 100 mg tablet 100 mg PO BID gout 09/07/22 [History Last Taken Unknown] apixaban 5 mg tablet (Eliquis) 5 mg PO BID blood thinner 09/07/22 [History Last Taken 10/02/22] pantoprazole 20 mg tablet,delayed release 20 mg PO DAILY reflux 09/07/22 [History Last Taken Unknown] melatonin 5 mg capsule 5 mg PO QHS sleep 09/10/22 [History Last Taken Unknown] multivitamin 5 ml PO DAILY vitamin 09/10/22 [History Last Taken Unknown] potassium gluconate 595 mg (99 mg) tablet 595 mg PO BID supplement 09/10/22 [History Last Taken Unknown] sildenafil 100 mg tablet 100 mg PO DAILY PRN sexual activity 09/10/22 [History Last Taken Unknown] clopidogrel 75 mg tablet 75 mg PO DAILY #90 tabs 10/07/22 [Rx Last Taken Unknown] furosemide 40 mg tablet (Lasix) 40 mg PO DAILY PRN diuretic #90 tabs 10/18/22 [Rx Last Taken Unknown] acetaminophen 325 mg tablet 325 mg PO Q4H PRN 11/04/22 [History Last Taken Unknown] empagliflozin 10 mg tablet (Jardiance) 10 mg PO DAILY #30 tabs 11/04/22 [Rx Last Taken Unknown] lisinopril 5 mg tablet 5 mg PO DAILY #90 tabs 11/04/22 [Rx Last Taken Unknown] prednisone 5 mg tablets in a dose pack 5 mg PO DIRECTED 11/04/22 [History Last Taken Unknown] carvedilol 6.25 mg tablet 6.25 mg PO BID Pt is out, can't get RX until elsewhere #60 tabs 12/09/22 [Rx Last Taken Unknown] Allergy/AdvReac Type Severity Reaction Status Date / Time indomethacin [From Indocin] AdvReac Intermediate Diarrhea Verified 12/25/22 06:36 meloxicam [From Mobic] AdvReac Intermediate Diarrhea Verified 12/25/22 06:36 Family History Mother CVA (cerebral vascular accident) Heart disease Hypertension CAD (coronary artery disease) Cancer kidney Father Cancer lung Sister Fibromyalgia Brother Cancer prostate Surgical History History of tonsillectomy and adenoidectomy Presence of coronary angioplasty implant and graft (~10/06/22) S/P eye surgery S/P hip replacement S/P knee replacement S/P shoulder replacement Social History Smoking Status: Former smoker quit date: 07/18/71 pack-years: 10 how long ago did patient quit smokin alcohol intake: current alcohol intake frequency: a few times a week Alcohol type: beer substance use type: does not use caffeine: Yes Type: coffee Number of servings: 2 ROS ROS ED Constitutional Constitutional ED: Denies chills or fever(s) ENT ENT ED: Denies sore throat Cardiovascular Cardiovascular: Denies chest pain, palpitations or racing heartbeat Respiratory/Chest Respiratory/Chest: Reports dyspnea; Denies cough Gastrointestinal Gastrointestinal: Denies abdominal pain, diarrhea, nausea or vomiting Genitourinary Genitourinary ED: Denies dysuria Musculoskeletal Musculoskeletal: Denies myalgias Integumentary Denies rash Neurologic Neurologic: Denies headache(s) Hematologic/Lymphatic Hematologic/Lymphatic: Reports easy bleeding and easy bruising EXAM Physical Exam Const Vital Signs: 12/25/22 06:29 12/25/22 06:37 Temperature 96.4 F L Temperature Source Temporal Pulse Rate 67 Respiratory Rate 14 Respiratory Effort Normal Non-Labored Short of Breath Respiratory Depth Normal Respiratory Pattern Normal Blood Pressure 137/76 H Blood Pressure Mean 96 Pulse Ox 100 Oxygen Delivery Method Room Air Room Air Positive well nourished and well developed General Appearance ED: well developed; Negative for pallor HEENT Reports moist mucous membranes HEENT Narrative: No tongue or lip swelling no oral lesions no airway edema or compromise Eyes PERRL and EOMs intact bilaterally General Eye ED: Negative for pale conjunctiva Neck supple and no JVD Neck Narrative: No crepitance noted Chest Wall palpation of chest normal Resp normal respiratory effort and clear to auscultation bilaterally Resp Narrative: Breath sounds are slightly diminished throughout but overall clear to auscultation. No nasal flaring retractions tachypnea or accessory muscle use Cardio regular rate and regular rhythm Rate: other Other Details: There is an occasional ectopic beat noted Radial pulses are plus 2 out of 4 bilaterally are equal and symmetric GI normal to inspection, nondistended, normoactive bowel sounds, non-tender, non- distended and no masses GI Narrative: No voluntary guarding or rigidity no pulsatile mass or fluid wave Auscultation: normoactive bowel sounds Palpation: soft Extremity Extremity Narrative: Trace pitting edema to the bilateral lower extremities that is equal and symmetric Neuro oriented x3 and CN's II-XII intact bilaterally Sensorium / Orientation: alert Psych mental status grossly normal Skin no rashes or lesions noted General Skin Exam: Negative for pallor MDM MDM MDM Narrative Medical decision making narrative: Patient presented to the ER with stable vitals satting 98 to 100% on room air with no real increased work of breathing and clear lungs. Differential diagnosis includes pneumonia pulmonary embolus pleural effusions congestive heart failure exacerbation acute blood loss anemia cardiac dysrhythmia or acute coronary syndrome. Patient does have a history of stent placement 3 months ago but there is no obvious signs of heart attack on EKG and rhythm appears sinus without heart block. Pulmonary embolus is a possibility with his history of A- fib and recent procedure but he has been on Eliquis the entire time which should negate any possible pulmonary embolus. However at this time his breath sounds are clear going against pneumonia or congestive heart failure or sudden onset bronchospasm and therefore do not feel the need to provide breathing treatment. Patient will undergo basic laboratory testing to check for acute loss anemia electrolyte derangement or cardiac event as a cause of symptoms and a CT will be added as well to ensure there is no PE or lung pathology. The patient's work-up is still pending and therefore he will be signed out to the oncoming daytime physician Dr. Saldaña. Disposition will be per him. History & Record Review Discussion w/independent historian: Patient and Significant other Lab Data Labs: Laboratory Results - last 24 hr 12/25/22 06:54 WBC 9.7 RBC 4.31 L Hgb 12.1 L Hct 38.3 L MCV 88.9 MCH 28.1 MCHC 31.6 L RDW Std Deviation 54.8 H RDW Coeff of Jarocho 17.1 H Plt Count 147 L MPV 10.5 Immature Gran % (Auto) 0.700 Neut % (Auto) 68.4 Lymph % (Auto) 22.2 [place] % (Auto) 6.9 Eos % (Auto) 1.5 Baso % (Auto) 0.3 Absolute Neuts (auto) 6.7 Absolute Lymphs (auto) 2.16 Nucleated RBC % 0 Discharge Plan Triage Chief Complaint: Shortness of Breath ED Provider: Merrick Abreu Dx/Rx/DC Orders Clinical Impression: SOB (shortness of breath), CAD (coronary artery disease), Current use of retirement anticoagulation, History of atrial fibrillation Prescriptions: No Action simvastatin 20 mg tablet 20 mg PO QPM sildenafil 100 mg tablet 100 mg PO DAILY PRN (Reason: sexual activity) Rx Instructions: Take 0.5-1 tab by mouth 1 hour before activity multivitamin Liquid 5 ml PO DAILY prednisone 5 mg tablets,dose pack 5 mg PO DIRECTED Rx Instructions: see taper instructions acetaminophen 325 mg tablet 325 mg PO Q4H PRN lisinopril 5 mg tablet 5 mg PO DAILY Qty: 90 3RF Jardiance 10 mg tablet 10 mg PO DAILY Qty: 30 12RF clopidogrel 75 mg Tablet 75 mg PO DAILY Qty: 90 4RF Eliquis 5 mg tablet 5 mg PO BID allopurinol 100 mg tablet 100 mg PO BID pantoprazole 20 mg tablet,delayed release (DR/EC) 20 mg PO DAILY potassium gluconate 595 mg (99 mg) tablet 595 mg PO BID melatonin 5 mg capsule 5 mg PO QHS furosemide [Lasix] 40 mg tablet 40 mg PO DAILY PRN (Reason: diuretic) Qty: 90 3RF carvedilol 6.25 mg tablet 6.25 mg PO BID Qty: 60 0RF Rx Instructions: must administer with a meal/food Primary Care Provider: Nolan Vigil Referrals: Nolan Vigil MD [Primary Care Provider] -
[2022-12-25 07:12] LABS: Absolute Lymphocyte Count 2.16 X10^3/uL (0.83-4.51); Absolute Neutrophil Count 6.7 X10^3/uL (2.0-7.7); Basophil# 0.03 X10^3/uL; Basophil% 0.3 % (0-1); Eosinophil# 0.15 X10^3/uL; Eosinophils% 1.5 % (0-5); Hematocrit 38.3 % (40-54); Hemoglobin 12.1 g/dL (13.0-16.5); Lymphocyte # 2.16 X10^3/ul (0.83-4.51); Lymphocyte % 22.2 % (19-41); Mean Corp Hgb Conc 31.6 g/dL (32-36); Mean Corpuscular Hgb 28.1 pg (27.0-32.0); Mean Corpuscular Volume 88.9 fL (80-94); Mean Platelet Vol. 10.5 fl (6.2-12.0); Monocyte# 0.67 X10^3/uL; Monocyte% 6.9 % (0-10); NRBC Flagged by Analyzer 0 % (0-5); Neutrophil # 6.66 X10^3/uL (2.7-7.7); Neutrophil % 68.4 % (47-70); Platelet Count 147 K/mm3 (150-450); RBC Distribution Width CV 17.1 % (11.6-14.6); RBC Distribution Width SD 54.8 fl (35.1-43.9); Red Blood Count 4.31 M/mm3 (4.6-6.2); White Blood Count 9.7 K/mm3 (4.4-11.0)
[2022-12-25 07:31] LABS: International Normalized Ratio 1.7; Prothrombin Time (Protime)PT. 19.8 SECONDS (11.7-14.9)
[2022-12-25 07:32] LABS: Partial Thromboplast Time 32.6 Seconds (24.1-36.2)
[2022-12-25 07:34] LABS: Anion Gap 8 (5-15); BUN 19 mg/dL (7-18); Chloride 111 mmol/L (98-107); Creatinine, Serum 1.12 mg/dL (0.70-1.30); EST Glomerular Filtration Rate 68 mL/min (>60); Est Glom Filt Rate - Afr Amer 82 mL/min (>60); Estimated Creatinine Clearance 57.03 ml/min; Glucose 106 mg/dL (74-106); Magnesium 2.4 mg/dL (1.6-2.6); Potassium 3.7 mmol/L (3.5-5.1); Sodium Level 142 mmol/L (136-145); Troponin-I HS 170 pg/mL (3.0-78.0)
--- NOTE | 2022-12-25 07:35 | ED.RN ---
LAB CALLED [facility] [address]. DR MARTIN.
[2022-12-25 09:18] LABS: AST(SGOT) 34 U/L (15-37); Alanine Aminotransfer ALT/SGPT 60 U/L (16-61); Albumin, Serum 3.6 g/dL (3.2-5.0); Alkaline Phosphatase 96 U/L (45-117); Bilirubin, Direct 0.29 mg/dL (0.00-0.30); Globulin 3.2 g/dL (2.2-4.2); Protein, Total 6.8 g/dL (6.4-8.2)
[2022-12-25 09:45] LABS: Troponin-I HS 161 pg/mL (3.0-78.0)
--- NOTE | 2022-12-25 10:08 | EDS_ITS ---
HPI History of Present Illness Chief Complaint: Shortness of Breath PFSH PFS Medical History Allergic rhinitis Atherosclerotic heart disease of [place] coronary artery without angina pectoris Atrial fibrillation Avascular necrosis Benign neoplasm of colon CAD (coronary artery disease) Cardiomyopathy Carotid stenosis, bilateral Chronic back pain Diverticulosis of colon Erectile dysfunction Essential (primary) hypertension GERD (gastroesophageal reflux disease) Gout Hepatomegaly Mixed hyperlipidemia Osteoarthritis PAD (peripheral artery disease) Presence of stent in coronary artery (~10/06/22) Prominent abdominal aortic pulsation Snoring Subclavian arterial stenosis Home Medications simvastatin 20 mg tablet 20 mg PO QPM cholesterol 12/09/17 [History Last Taken Unknown] allopurinol 100 mg tablet 100 mg PO BID gout 09/07/22 [History Last Taken Unknown] apixaban 5 mg tablet (Eliquis) 5 mg PO BID blood thinner 09/07/22 [History Last Taken 10/02/22] pantoprazole 20 mg tablet,delayed release 20 mg PO DAILY reflux 09/07/22 [History Last Taken Unknown] melatonin 5 mg capsule 5 mg PO QHS sleep 09/10/22 [History Last Taken Unknown] multivitamin 5 ml PO DAILY vitamin 09/10/22 [History Last Taken Unknown] potassium gluconate 595 mg (99 mg) tablet 595 mg PO BID supplement 09/10/22 [History Last Taken Unknown] sildenafil 100 mg tablet 100 mg PO DAILY PRN sexual activity 09/10/22 [History Last Taken Unknown] clopidogrel 75 mg tablet 75 mg PO DAILY #90 tabs 10/07/22 [Rx Last Taken Unknown] furosemide 40 mg tablet (Lasix) 40 mg PO DAILY PRN diuretic #90 tabs 10/18/22 [Rx Last Taken Unknown] acetaminophen 325 mg tablet 325 mg PO Q4H PRN 11/04/22 [History Last Taken Unknown] empagliflozin 10 mg tablet (Jardiance) 10 mg PO DAILY #30 tabs 11/04/22 [Rx Last Taken Unknown] lisinopril 5 mg tablet 5 mg PO DAILY #90 tabs 11/04/22 [Rx Last Taken Unknown] prednisone 5 mg tablets in a dose pack 5 mg PO DIRECTED 11/04/22 [History Last Taken Unknown] carvedilol 6.25 mg tablet 6.25 mg PO BID Pt is out, can't get RX until Tu elsewhere #60 tabs 12/09/22 [Rx Last Taken Unknown] Allergy/AdvReac Type Severity Reaction Status Date / Time indomethacin [From Indocin] AdvReac Intermediate Diarrhea Verified 12/25/22 06:36 meloxicam [From Mobic] AdvReac Intermediate Diarrhea Verified 12/25/22 06:36 Family History Mother CVA (cerebral vascular accident) Heart disease Hypertension CAD (coronary artery disease) Cancer kidney Father Cancer lung Sister Fibromyalgia Brother Cancer prostate Surgical History History of tonsillectomy and adenoidectomy Presence of coronary angioplasty implant and graft (~10/06/22) S/P eye surgery S/P hip replacement S/P knee replacement S/P shoulder replacement Social History Smoking Status: Former smoker quit date: 07/18/71 pack-years: 10 how long ago did patient quit smokin alcohol intake: current alcohol intake frequency: a few times a week Alcohol type: beer substance use type: does not use caffeine: Yes Type: coffee Number of servings: 2 EXAM Physical Exam Const Vital Signs: 12/25/22 06:29 12/25/22 06:37 Temperature 96.4 F L Temperature Source Temporal Pulse Rate 67 Respiratory Rate 14 Respiratory Effort Normal Non-Labored Short of Breath Respiratory Depth Normal Respiratory Pattern Normal Blood Pressure 137/76 H Blood Pressure Mean 96 Pulse Ox 100 Oxygen Delivery Method Room Air Room Air [facility] Lab Data Labs: Laboratory Results - last 24 hr 12/25/22 12/25/22 12/25/22 06:54 06:54 06:54 WBC 9.7 RBC 4.31 L Hgb 12.1 L Hct 38.3 L MCV 88.9 MCH 28.1 MCHC 31.6 L RDW Std Deviation 54.8 H RDW Coeff of Jarocho 17.1 H Plt Count 147 L MPV 10.5 Immature Gran % (Auto) 0.700 Neut % (Auto) 68.4 Lymph % (Auto) 22.2 [place] % (Auto) 6.9 Eos % (Auto) 1.5 Baso % (Auto) 0.3 Absolute Neuts (auto) 6.7 Absolute Lymphs (auto) 2.16 Nucleated RBC % 0 PT 19.8 H INR 1.7 APTT 32.6 Sodium 142 Potassium 3.7 Chloride 111 H Carbon Dioxide 23.0 Anion Gap 8 BUN 19 H Creatinine 1.12 Estim Creat Clear Calc 57.03 Est GFR (MDRD) Af Amer 82 Est GFR (MDRD) Non-Af 68 BUN/Creatinine Ratio 17.0 Glucose 106 Calcium 9.0 Magnesium 2.4 Total Bilirubin Direct Bilirubin AST ALT Alkaline Phosphatase Troponin I High Sens 170 H* B-Natriuretic Peptide Total Protein Albumin Globulin 12/25/22 12/25/22 12/25/22 06:54 06:54 09:15 WBC RBC Hgb Hct MCV MCH MCHC RDW Std Deviation RDW Coeff of Jarocho Plt Count MPV Immature Gran % (Auto) Neut % (Auto) Lymph % (Auto) [place] % (Auto) Eos % (Auto) Baso % (Auto) Absolute Neuts (auto) Absolute Lymphs (auto) Nucleated RBC % PT INR APTT Sodium Potassium Chloride Carbon Dioxide Anion Gap BUN Creatinine Estim Creat Clear Calc Est GFR (MDRD) Af Amer Est GFR (MDRD) Non-Af BUN/Creatinine Ratio Glucose Calcium Magnesium Total Bilirubin 0.90 Direct Bilirubin 0.29 AST 34 ALT 60 Alkaline Phosphatase 96 Troponin I High Sens 161 H* B-Natriuretic Peptide 466.0 H Total Protein 6.8 Albumin 3.6 Globulin 3.2 Radiography Diagnostic Testing: Clinical Impression(s) from Imaging Studies Chest CTA 12/25/22 06:51 IMPRESSION: No evidence of pulmonary embolism. Mild pulmonary edema with mild pleural effusions. Anasarca with mild ascites and gallbladder wall edema. 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, History of atrial fibrillation Prescriptions: No Action simvastatin 20 mg tablet 20 mg PO QPM sildenafil 100 mg tablet 100 mg PO DAILY PRN (Reason: sexual activity) Rx Instructions: Take 0.5-1 tab by mouth 1 hour before activity multivitamin Liquid 5 ml PO DAILY prednisone 5 mg tablets,dose pack 5 mg PO DIRECTED Rx Instructions: see taper instructions acetaminophen 325 mg tablet 325 mg PO Q4H PRN lisinopril 5 mg tablet 5 mg PO DAILY Qty: 90 3RF Jardiance 10 mg tablet 10 mg PO DAILY Qty: 30 12RF clopidogrel 75 mg Tablet 75 mg PO DAILY Qty: 90 4RF Eliquis 5 mg tablet 5 mg PO BID allopurinol 100 mg tablet 100 mg PO BID pantoprazole 20 mg tablet,delayed release (DR/EC) 20 mg PO DAILY potassium gluconate 595 mg (99 mg) tablet 595 mg PO BID melatonin 5 mg capsule 5 mg PO QHS furosemide [Lasix] 40 mg tablet 40 mg PO DAILY PRN (Reason: diuretic) Qty: 90 3RF carvedilol 6.25 mg tablet 6.25 mg PO BID Qty: 60 0RF Rx Instructions: must administer with a meal/food Primary Care Provider: Nolan Vigil Referrals: Osbaldo Vernon MD [Med Staff - Active Staff] - 5-7 Days Nolan Vigil MD [Primary Care Provider] - Activity Restrictions/Additional Instructions: Take Lasix 40 mg daily for the next 5 days. Disposition Disposition: Home, Self Care
== END 2022-12-25 10:31 | disposition home or self-care (01) ==
PROVIDERS: Emergency Medicine; Emergency Provider Emergency Medicine; PCP Family Medicine; Visit Provider Emergency Medicine
DX: R06.02 Shortness of breath (principal); I48.91 Unspecified atrial fibrillation; I25.10 Atherosclerotic heart disease of native coronary artery without angina pectoris; E78.2 Mixed hyperlipidemia; Z87.891 Personal history of nicotine dependence; Z79.01 Long term (current) use of anticoagulants; I10 Essential (primary) hypertension; Z79.899 Other long term (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; M10.9 Gout, unspecified; N52.9 Male erectile dysfunction, unspecified; Z79.02 Long term (current) use of antithrombotics/antiplatelets; Z95.5 Presence of coronary angioplasty implant and graft; Z96.649 Presence of unspecified artificial hip joint; Z96.659 Presence of unspecified artificial knee joint; Z96.619 Presence of unspecified artificial shoulder joint
CPT/HCPCS: 71275; 80048; 80076; 83735; 83880; 84484; 85025; 85610; 85730; 93005; 99282; Q9967; A4216

== ENCOUNTER → 2023-01-04 | Outpatient (CLI) | payer MEDICARE, SELFPAY ==
[2023-01-04 08:44] LABS: AST(SGOT) 17 U/L (15-37); Alanine Aminotransfer ALT/SGPT 33 U/L (16-61); Albumin, Serum 3.5 g/dL (3.2-5.0); Alkaline Phosphatase 76 U/L (45-117); Anion Gap 8 (5-15); BUN 25 mg/dL (7-18); BUN/Creat Ratio 23.1 RATIO (10-20); Calcium,Total 9.1 mg/dL (8.5-10.1); Chloride 108 mmol/L (98-107); Creatinine, Serum 1.08 mg/dL (0.70-1.30); EST Glomerular Filtration Rate 70 mL/min (>60); Est Glom Filt Rate - Afr Amer 85 mL/min (>60); Globulin 3.4 g/dL (2.2-4.2); Glucose 131 mg/dL (74-106); Potassium 3.8 mmol/L (3.5-5.1); Protein, Total 6.9 g/dL (6.4-8.2); Sodium Level 140 mmol/L (136-145); Uric Acid 3.7 mg/dL (3.5-7.2)
== END | disposition home or self-care (01) ==
LOC: LAB 08:00
PROVIDERS: PCP Family Medicine; Referring Provider Internal Medicine Rheumatology; Visit Provider Internal Medicine Rheumatology
DX: M06.4 Inflammatory polyarthropathy (principal); I42.9 Cardiomyopathy, unspecified; I48.20 Chronic atrial fibrillation, unspecified; M10.9 Gout, unspecified; I10 Essential (primary) hypertension; I25.10 Atherosclerotic heart disease of native coronary artery without angina pectoris; I65.23 Occlusion and stenosis of bilateral carotid arteries; E78.5 Hyperlipidemia, unspecified; N52.9 Male erectile dysfunction, unspecified
CPT/HCPCS: 36415; 80053; 84550

== ENCOUNTER → 2023-04-01 | Outpatient (CLI) | payer MEDICARE, SELFPAY ==
[2023-04-01 12:07] LABS: Absolute Lymphocyte Count 1.77 X10^3/uL (0.83-4.51); Absolute Neutrophil Count 4.5 X10^3/uL (2.0-7.7); Basophil# 0.04 X10^3/uL; Basophil% 0.6 % (0-1); Eosinophil# 0.06 X10^3/uL; Eosinophils% 0.8 % (0-5); Hematocrit 33.2 % (40-54); Hemoglobin 10.6 g/dL (13.0-16.5); Lymphocyte # 1.77 X10^3/ul (0.83-4.51); Lymphocyte % 24.8 % (19-41); Mean Corp Hgb Conc 31.9 g/dL (32-36); Mean Corpuscular Hgb 29.5 pg (27.0-32.0); Mean Corpuscular Volume 92.5 fL (80-94); Mean Platelet Vol. 10.3 fl (6.2-12.0); Monocyte# 0.67 X10^3/uL; Monocyte% 9.4 % (0-10); NRBC Flagged by Analyzer 0 % (0-5); Neutrophil # 4.52 X10^3/uL (2.7-7.7); Neutrophil % 63.1 % (47-70); Platelet Count 169 K/mm3 (150-450); RBC Distribution Width CV 15.9 % (11.6-14.6); RBC Distribution Width SD 54.1 fl (35.1-43.9); Red Blood Count 3.59 M/mm3 (4.6-6.2); White Blood Count 7.2 K/mm3 (4.4-11.0)
[2023-04-01 12:45] LABS: ALB/GLOB Ratio 1.1 RATIO (0.9-2.4); AST(SGOT) 18 U/L (15-37); Alanine Aminotransfer ALT/SGPT 25 U/L (16-61); Albumin, Serum 3.5 g/dL (3.2-5.0); Alkaline Phosphatase 53 U/L (45-117); Anion Gap 6 (5-15); BUN 17 mg/dL (7-18); BUN/Creat Ratio 14.4 RATIO (10-20); Calcium,Total 8.6 mg/dL (8.5-10.1); Chloride 112 mmol/L (98-107); Creatinine, Serum 1.18 mg/dL (0.70-1.30); EST Glomerular Filtration Rate 64 mL/min (>60); Est Glom Filt Rate - Afr Amer 77 mL/min (>60); Globulin 3.1 g/dL (2.2-4.2); Glucose 92 mg/dL (74-106); Potassium 3.9 mmol/L (3.5-5.1); Protein, Total 6.6 g/dL (6.4-8.2); Sodium Level 140 mmol/L (136-145)
== END | disposition home or self-care (01) ==
LOC: MTLAB 10:39
PROVIDERS: PCP Family Medicine; Referring Provider Internal Medicine Rheumatology; Visit Provider Internal Medicine Rheumatology
DX: M06.4 Inflammatory polyarthropathy (principal); M10.9 Gout, unspecified
CPT/HCPCS: 36415; 80053; 85025

== ENCOUNTER 2023-05-10 21:46 | Emergency (ER) | payer MEDICARE, SELFPAY ==
[2023-05-10 21:46] VITALS: PULSE 76; RESP 18; TEMP 36.6; O2SAT 98; BMI 25.2
[2023-05-10 21:55] VITALS: BP 129/54
--- NOTE | 2023-05-10 22:10 | CT_ITS ---
STUDY: CT ABDOMEN AND PELVIS WITH CONTRAST REASON FOR EXAM: Male, 77 years old. pain distention and vomiting RADIATION DOSAGE (If Supplied By Facility): CTDIvol = ( 17.29 ) mGy, DLP = ( 1002.04 ) mGycm TECHNIQUE: Transaxial images were obtained from the dome of the diaphragm to the symphysis pubis without oral contrast. IV 100mL Isovue-370 was administered. Sagittal and coronal images were reconstructed. Individualized dose optimization techniques were used for this CT. COMPARISON: None. FINDINGS: The visualized lung bases are unremarkable. Cardiomegaly. Normal liver. Normal gallbladder and extrahepatic biliary system. Normal spleen. Normal pancreas. Normal bilateral adrenal glands. Normal right kidney. Normal left kidney. There is a small hiatal hernia. Normal small intestine. There are multiple colonic diverticula consistent with diverticulosis. Large amount of stool throughout the colon suggestive of constipation. The appendix is visualized and appears normal. There is diffuse atherosclerotic calcification of the abdominal aorta, without a demonstrated aneurysm. Normal inferior vena cava. Normal retroperitoneum. Normal urinary bladder. Normal abdominal wall. Status post left hip arthroplasty which produces streak artifact obscures the pelvis. CT/Abdomen/Pelvis W IV Cont ONLY IMPRESSION: Suspect constipation. Electronically Signed: Feng Cassidy MD at 23:40 EDT ,
--- NOTE | 2023-05-10 22:11 | EX.ED.DYSGE1 ---
HPI History of Present Illness Chief Complaint: Nausea/Vomiting Informant: patient and spouse/S.O. Narrative Narrative: 77 male presenting to the emergency room with abdominal pain and vomiting. Patient states that he ate [place] food with his for dinner. She is feeling well. He developed abdominal cramping bloating and vomiting. States his last bowel movement was on Tuesday and was loose. He has been experiencing loose stools over the past several weeks/months. He has been noticing that he gets full with meals earlier than normal and is scheduled to have a endoscopy through the [facility] in [facility]. 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 The patient denies any prior abdominal surgeries or bowel obstructions. No history of pancreatitis. He denies any fever. History of CHF, atrial fibrillation (status post ablation) as well as coronary artery disease having had stents placed this year. He follows with Dr. Vernon with [facility]. He is currently on clopidogrel and apixaban. [facility] Medical History Allergic rhinitis Atherosclerotic heart disease of [place] coronary artery without angina pectoris Atrial fibrillation Avascular necrosis Benign neoplasm of colon Bradycardia CAD (coronary artery disease) Cardiomyopathy Carotid stenosis, bilateral Chronic back pain Diverticulosis of colon Dyslipidemia Erectile dysfunction Essential (primary) hypertension Fatigue GERD (gastroesophageal reflux disease) Gout Hepatomegaly Lightheadedness Mixed hyperlipidemia Osteoarthritis PAD (peripheral artery disease) Presence of stent in coronary artery (~10/06/22) Prominent abdominal aortic pulsation Snoring SOB (shortness of breath) Subclavian arterial stenosis Home Medications simvastatin 20 mg tablet 20 mg PO QPM cholesterol 12/09/17 [History Last Taken Unknown] allopurinol 100 mg tablet 100 mg PO BID gout 09/07/22 [History Last Taken Unknown] pantoprazole 20 mg tablet,delayed release 20 mg PO DAILY reflux 09/07/22 [History Last Taken Unknown] melatonin 5 mg capsule 5 mg PO QHS sleep 09/10/22 [History Last Taken Unknown] multivitamin 5 ml PO DAILY vitamin 09/10/22 [History Last Taken Unknown] sildenafil 100 mg tablet 100 mg PO DAILY PRN sexual activity 09/10/22 [History Last Taken Unknown] clopidogrel 75 mg tablet 75 mg PO DAILY #90 tabs 10/07/22 [Rx Last Taken Unknown] acetaminophen 325 mg tablet 325 mg PO Q4H PRN fever or pain 11/04/22 [History Last Taken Unknown] carvedilol 6.25 mg tablet 6.25 mg PO BID Pt is out, can't get RX until Tu elsewhere #60 tabs 12/09/22 [Rx Last Taken Unknown] furosemide 40 mg tablet (Lasix) 20 mg (1/2 x 40 mg) PO DAILY PRN diuretic #0 tabs 02/10/23 [Rx Last Taken Unknown] lisinopril 5 mg tablet 2.5 mg (1/2 x 5 mg) PO DAILY #0 tabs 02/10/23 [Rx Last Taken Unknown] apixaban 5 mg tablet (Eliquis) 5 mg PO BID blood thinner #180 tabs 04/25/23 [Rx Last Taken Unknown] ferrous sulfate 325 mg (65 mg iron) tablet 325 mg PO DAILY 05/10/23 [History Last Taken Unknown] hydroxychloroquine 200 mg tablet 200 mg PO DAILY 05/10/23 [History Last Taken Unknown] Allergy/AdvReac Type Severity Reaction Status Date / Time indomethacin [From Indocin] AdvReac Intermediate Diarrhea Verified 05/10/23 21:49 meloxicam [From Mobic] AdvReac Intermediate Diarrhea Verified 05/10/23 21:49 spironolactone AdvReac Intermediate Dizziness Verified 05/10/23 21:49 and severe headaches Family History Mother CVA (cerebral vascular accident) Heart disease Hypertension CAD (coronary artery disease) Cancer kidney Father Cancer lung Sister Fibromyalgia Brother Cancer prostate Surgical History History of radiofrequency ablation (RFA) for complex left atrial arrhythmia (~12/2022) History of tonsillectomy and adenoidectomy Presence of coronary angioplasty implant and graft (~10/06/22) S/P eye surgery S/P hip replacement S/P knee replacement S/P shoulder replacement Social History Smoking Status: Former smoker quit date: 07/18/71 pack-years: 10 how long ago did patient quit smokin alcohol intake: current alcohol intake frequency: a few times a week Alcohol type: beer substance use type: does not use caffeine: Yes Type: coffee Number of servings: 2 ROS ROS ED Constitutional Constitutional ED: Denies chills, fever(s) or weight loss Eyes Eyes: Denies change in vision or diplopia ENT ENT ED: Denies ear pain, rhinorrhea or sore throat Cardiovascular Cardiovascular: Denies chest pain, orthopnea, palpitations or racing heartbeat Respiratory/Chest Respiratory/Chest: Denies cough, dyspnea or orthopnea Gastrointestinal Gastrointestinal: Reports abdominal pain, constipation, nausea, vomiting and other Details: Abdominal distention ; Denies diarrhea Genitourinary Genitourinary ED: Denies dysuria, hematuria or urinary frequency Musculoskeletal Musculoskeletal: Denies arthralgias, back pain, myalgias or neck pain Integumentary Denies abscess or rash Neurologic Neurologic: Denies headache(s) or weakness Psychiatric Psychiatric: Denies anxiety, depression, suicidal ideation or suicidal thoughts Endocrine Endocrinology: Denies polydipsia, polyphagia or polyuria Allergic/Immunologic Allergic/Immunologic ED: Denies mouth swelling, tongue swelling or urticaria EXAM Physical Exam Narrative Exam Narrative: Patient appears uncomfortable but holding his abdomen. Const Vital Signs: 05/10/23 21:46 05/10/23 21:55 Temperature 97.9 F Temperature Source Oral Pulse Rate 76 Respiratory Rate 18 Blood Pressure 129/54 H Blood Pressure Mean 79 Pulse Ox 98 Oxygen Delivery Method Room Air Positive well nourished and well developed General Appearance ED: well developed HEENT Reports normocephalic, head/scalp atraumatic and moist mucous membranes Eyes PERRL and EOMs intact bilaterally Neck no lymphadenopathy, supple and no JVD Resp normal respiratory effort and clear to auscultation bilaterally Cardio regular rate, regular rhythm and no murmurs GI Inspection: abdominal distention Auscultation: normoactive bowel sounds Palpation: soft, tender other (Diffuse) and guarding Back/Spine no CVA tenderness and normal ROM Extremity Extremity Narrative: Trace edema to the lower extremities. +2 dorsalis pedis pulses. Neuro oriented x3 and CN's II-XII intact bilaterally Sensorium / Orientation: alert Motor Exam: strength 5/5 throughout Psych mental status grossly normal Mood & Affect: Negative for depressed or tearful Skin no rashes or lesions noted and no wounds Skin Narrative: Normal skin tone MDM MDM MDM Narrative Medical decision making narrative: White count is nonspecifically elevated 11.5. Hemoglobin 11.7. Platelet 286. BUN of 21 with a creatinine 1.37. Liver enzymes showed an AST of [address] of the abdomen pelvis with IV contrast was obtained. This demonstrated a large amount of stool throughout the large intestine. There is diverticulosis noted but no diverticulitis. Small bowel obstruction was not noted. The CT was reviewed by myself. Patient passed 3 small marble pieces of stool while he was here in the department. Based on the CT findings a soapsuds enema was ordered. Patient has not had much success in being able to hold the fluid of the enema. He is still having abdominal cramping. He does not appear to have an impaction. Bowel sounds are quite active. I would give him some magnesium citrate have him continue this at home. Has his write for any Zofran due to the constipating effects and I am hesitant to use Phenergan or Compazine due to a general sedation effects. Patient and were advised to return instructions note understanding Lab Data Attestation: I reviewed the patient's lab results. Labs: Laboratory Results - last 24 hr 05/10/23 22:14 WBC 11.5 H RBC 4.02 L Hgb 11.7 L Hct 36.9 L MCV 91.8 MCH 29.1 MCHC 31.7 L RDW Std Deviation 46.9 H RDW Coeff of Jarocho 13.8 Plt Count 286 MPV 11.0 Immature Gran % (Auto) 0.300 Neut % (Auto) 69.8 Lymph % (Auto) 23.9 Lander % (Auto) 5.0 Eos % (Auto) 0.7 Baso % (Auto) 0.3 Absolute Neuts (auto) 8.0 H Absolute Lymphs (auto) 2.74 Nucleated RBC % 0 Sodium 139 Potassium 3.9 Chloride 111 H Carbon Dioxide 21.0 Anion Gap 7 BUN 21 H Creatinine 1.37 H Estim Creat Clear Calc 46.62 Est GFR (MDRD) Af Amer 65 Est GFR (MDRD) Non-Af 54 L BUN/Creatinine Ratio 15.3 Glucose 129 H Calcium 9.1 Total Bilirubin 0.80 Direct Bilirubin 0.28 AST 42 H ALT 35 Alkaline Phosphatase 94 Total Protein 7.3 Albumin 3.7 Globulin 3.6 Lipase 42 Radiography Diagnostic Testing: Clinical Impression(s) from Imaging Studies Abdomen/Pelvis CT 05/10/23 22:10 IMPRESSION: Suspect constipation. Electronically Signed: Feng Cassidy MD at 23:40 EDT , Discharge Plan Triage Chief Complaint: Nausea/Vomiting ED Provider: Cabrera Ngo Dx/Rx/DC Orders Clinical Impression: Abdominal pain, Constipation, Vomiting Instructions: Abdominal Pain, ED Vomiting (Adult), ED Diverticulosis Prescriptions: No Action simvastatin 20 mg tablet 20 mg PO QPM sildenafil 100 mg tablet 100 mg PO DAILY PRN (Reason: sexual activity) Rx Instructions: Take 0.5-1 tab by mouth 1 hour before activity multivitamin Liquid 5 ml PO DAILY acetaminophen 325 mg tablet 325 mg PO Q4H PRN (Reason: fever or pain) clopidogrel 75 mg Tablet 75 mg PO DAILY Qty: 90 4RF hydroxychloroquine 200 mg tablet 200 mg PO DAILY Patient Comments: TAKE 1 TABLET BY MOUTH TWICE A DAY ferrous sulfate 325 mg (65 mg iron) tablet 325 mg PO DAILY Patient Comments: TAKE 1 TABLET BY MOUTH EVERY DAY allopurinol 100 mg tablet 100 mg PO BID pantoprazole 20 mg tablet,delayed release (DR/EC) 20 mg PO DAILY melatonin 5 mg capsule 5 mg PO QHS carvedilol 6.25 mg tablet 6.25 mg PO BID Qty: 60 0RF Rx Instructions: must administer with a meal/food lisinopril 5 mg tablet 2.5 mg PO DAILY Qty: 0 0RF Hold Instructions: low BP furosemide [Lasix] 40 mg tablet 20 mg PO DAILY PRN (Reason: diuretic) Qty: 0 0RF Eliquis 5 mg tablet 5 mg PO BID Qty: 180 3RF Primary Care Provider: Nolan Vigil Referrals: Nolan Vigil MD [Primary Care Provider] - 3-5 Days if not improving
[2023-05-10] MEDS: Morphine 4 MG/ML Syringe IV (22:22)
[2023-05-10] MEDS: Ondansetron 4 MG/2 ML Vial IV (22:22)
[2023-05-10] MEDS: 0.9% Normal Saline (500mL Bag) 500 ML 999 ML IV (22:24)
[2023-05-10 22:29] LABS: Absolute Lymphocyte Count 2.74 X10^3/uL (0.83-4.51); Basophil# 0.04 X10^3/uL; Basophil% 0.3 % (0-1); Eosinophil# 0.08 X10^3/uL; Eosinophils% 0.7 % (0-5); Hematocrit 36.9 % (40-54); Hemoglobin 11.7 g/dL (13.0-16.5); Lymphocyte # 2.74 X10^3/ul (0.83-4.51); Lymphocyte % 23.9 % (19-41); Mean Corp Hgb Conc 31.7 g/dL (32-36); Mean Corpuscular Hgb 29.1 pg (27.0-32.0); Mean Corpuscular Volume 91.8 fL (80-94); Monocyte# 0.57 X10^3/uL; NRBC Flagged by Analyzer 0 % (0-5); Neutrophil # 7.98 X10^3/uL (2.7-7.7); Neutrophil % 69.8 % (47-70); Platelet Count 286 K/mm3 (150-450); RBC Distribution Width CV 13.8 % (11.6-14.6); RBC Distribution Width SD 46.9 fl (35.1-43.9); Red Blood Count 4.02 M/mm3 (4.6-6.2); White Blood Count 11.5 K/mm3 (4.4-11.0)
[2023-05-10 23:03] LABS: AST(SGOT) 42 U/L (15-37); Alanine Aminotransfer ALT/SGPT 35 U/L (16-61); Albumin, Serum 3.7 g/dL (3.2-5.0); Alkaline Phosphatase 94 U/L (45-117); Anion Gap 7 (5-15); BUN 21 mg/dL (7-18); BUN/Creat Ratio 15.3 RATIO (10-20); Bilirubin, Direct 0.28 mg/dL (0.00-0.30); Calcium,Total 9.1 mg/dL (8.5-10.1); Chloride 111 mmol/L (98-107); Creatinine, Serum 1.37 mg/dL (0.70-1.30); EST Glomerular Filtration Rate 54 mL/min (>60); Est Glom Filt Rate - Afr Amer 65 mL/min (>60); Estimated Creatinine Clearance 46.62 ml/min; Globulin 3.6 g/dL (2.2-4.2); Glucose 129 mg/dL (74-106); Lipase 42 U/L (13-75); Potassium 3.9 mmol/L (3.5-5.1); Protein, Total 7.3 g/dL (6.4-8.2); Sodium Level 139 mmol/L (136-145)
[2023-05-10 23:46] VITALS: BP 121/74; PULSE 71; RESP 18; O2SAT 99
[2023-05-11 01:00] VITALS: BP 123/73; PULSE 72; RESP 18; O2SAT 99
[2023-05-11] MEDS: Magnesium Citrate 300 ML PO (02:17)
== END 2023-05-11 02:21 | disposition home or self-care (01) ==
PROVIDERS: Emergency Provider Emergency Medicine; PCP Family Medicine; Visit Provider Emergency Medicine
DX: R10.9 Unspecified abdominal pain (principal); I42.9 Cardiomyopathy, unspecified; Z87.891 Personal history of nicotine dependence; I10 Essential (primary) hypertension; E78.2 Mixed hyperlipidemia; M54.9 Dorsalgia, unspecified; I25.10 Atherosclerotic heart disease of native coronary artery without angina pectoris; K57.90 Diverticulosis of intestine, part unspecified, without perforation or abscess without bleeding; K59.00 Constipation, unspecified; R11.10 Vomiting, unspecified; Z95.5 Presence of coronary angioplasty implant and graft
CPT/HCPCS: 74177; 80048; 80076; 83690; 85025; 96361; 96374; 96375; 99285; J7030; Q9967; A4216; J2405

== ENCOUNTER 2023-07-31 15:37 | Emergency (ER) | payer MEDICARE, SELFPAY ==
[2023-07-31 15:38] VITALS: BP 150/78; PULSE 76; RESP 15; TEMP 36.2; O2SAT 100; BMI 24.3
--- NOTE | 2023-07-31 15:55 | CT_ITS ---
INDICATION: blunt left anterior chest wall trauma EXAMINATION: CT CHEST WITHOUT CONTRAST - CT Chest W/O Contrast Injection TECHNIQUE: Helically acquired images were obtained of the chest. A radiation dose optimization technique was used for this scan. IV Contrast dosage and agent: None. COMPARISON: 12/25/2022. 12/23/2017. FINDINGS: LUNGS, PLEURA AND LARGE AIRWAYS: Small right lower lobe subpleural nodule, image 83, series 4 measuring 3.3 mm. Trace bilateral lower lobe atelectasis, otherwise no masses, consolidation, or edema. No pleural effusion or thickening. No pneumothorax. THYROID: No thyroid lesions. HEART AND PERICARDIUM: Heart size is normal. No pericardial effusion. CORONARY ARTERIES: Coronary artery calcification is seen. VESSELS: Calcified atherosclerosis throughout the aorta with no aneurysm. MEDIASTINUM AND KUSH: No mediastinal or hilar adenopathy, largest lymph node measuring approximately 8.7 x 4.5 mm seen in the precarinal region. Esophagus is unremarkable. No hiatal hernia. UPPER ABDOMEN: No acute pathology. BONES: Diffuse osteopenia with multilevel degenerative disease of the spine. Mild compression fracture of T7, stable since 12/25/2022. No acute fracture or subluxation seen of thoracic spine. There is a right-sided shoulder prosthesis in place. CT/Chest without Contrast IMPRESSION: 3.3 mm right lower lobe nodule, unchanged since exam dated 12/23/2017 and therefore compatible with benign process, no further follow-up imaging recommended. Trace bilateral lower lobe atelectasis, otherwise no acute cardiopulmonary disease. No pleural effusion or pneumothorax. Electronically Signed: Rizwana Hedrick MD at 16:55 EST ,
--- NOTE | 2023-07-31 15:55 | RAD_ITS ---
STUDY: X-RAY - LEFT HAND, ATTENTION FIFTH FINGER REASON FOR EXAM: Male, 77 years old. trauma TECHNIQUE: 3 view(s) of the finger were obtained. COMPARISON: None. FINDINGS: Normal metacarpal head. Normal metacarpophalangeal joint. Normal proximal phalanx. Normal middle phalanx. Normal distal phalanx. There is mild degenerative arthrosis of the proximal interphalangeal joint. There is moderate to severe degenerative arthrosis of the distal interphalangeal joint. There is no demonstrated fracture. RAD/Finger(s) Min 2 Views IMPRESSION: Question osteopenia with osteoarthritis, more severe at the distal interphalangeal joint. No acute fracture or subluxation. Electronically Signed: Rizwana Hedrick MD at 16:24 EST ,
--- NOTE | 2023-07-31 15:56 | ED.VIS.CHEST ---
HPI History of Present Illness Chief Complaint: Chest Other Informant: patient and spouse/S.O. Narrative Narrative: 77-year-old male presenting to the emergency room following a fall. Patient states he was in [employer]. He was finished bowling and was carrying his bowling ball when he tripped over the step falling forward. He states he skinned his left anterior knee, hit his right dorsum of his hand resulting in hematoma, injured his left little finger at the DIP joint and struck his anterior left upper chest wall on the bowling ball. He has been able to ambulate appropriately. He applied Band-Aids to the knee. He notes that he is on blood thinner for atrial fibrillation. He denies striking his head or having any headache. He drove from [place] back home to [place] to be evaluated. [facility] Medical History Allergic rhinitis Atherosclerotic heart disease of [place] coronary artery without angina pectoris Atrial fibrillation Avascular necrosis Benign neoplasm of colon Bradycardia CAD (coronary artery disease) Cardiomyopathy Carotid stenosis, bilateral Chronic back pain Diverticulosis of colon Dyslipidemia Erectile dysfunction Essential (primary) hypertension Fatigue GERD (gastroesophageal reflux disease) Gout Hepatomegaly Lightheadedness Mixed hyperlipidemia Osteoarthritis PAD (peripheral artery disease) Presence of stent in coronary artery (~10/06/22) Prominent abdominal aortic pulsation Snoring SOB (shortness of breath) Subclavian arterial stenosis Home Medications simvastatin 20 mg tablet 20 mg PO QPM cholesterol 12/09/17 [History Last Taken Unknown] allopurinol 100 mg tablet 100 mg PO BID gout 09/07/22 [History Last Taken Unknown] pantoprazole 20 mg tablet,delayed release 20 mg PO DAILY reflux 09/07/22 [History Last Taken Unknown] melatonin 5 mg capsule 5 mg PO QHS sleep 09/10/22 [History Last Taken Unknown] multivitamin 5 ml PO DAILY vitamin 09/10/22 [History Last Taken Unknown] sildenafil 100 mg tablet 100 mg PO DAILY PRN sexual activity 09/10/22 [History Last Taken Unknown] clopidogrel 75 mg tablet 75 mg PO DAILY #90 tabs 10/07/22 [Rx Last Taken Unknown] acetaminophen 325 mg tablet 325 mg PO Q4H PRN fever or pain 11/04/22 [History Last Taken Unknown] carvedilol 6.25 mg tablet 6.25 mg PO BID Pt is out, can't get RX until Tu elsewhere #60 tabs 12/09/22 [Rx Last Taken Unknown] furosemide 40 mg tablet (Lasix) 20 mg (1/2 x 40 mg) PO DAILY PRN diuretic #0 tabs 02/10/23 [Rx Last Taken Unknown] apixaban 5 mg tablet (Eliquis) 5 mg PO BID blood thinner #180 tabs 04/25/23 [Rx Last Taken Unknown] hydroxychloroquine 200 mg tablet 200 mg PO DAILY 05/10/23 [History Last Taken Unknown] lactobacillus combination no.4 3 billion cell capsule (Probiotic) 3,000 mmu cells PO DAILY 07/15/23 [History Last Taken Unknown] lisinopril 2.5 mg tablet mg PO 07/15/23 [History Last Taken Unknown] magnesium 250 mg tablet 500 mg PO QHS 07/31/23 [History Last Taken Unknown] Allergy/AdvReac Type Severity Reaction Status Date / Time indomethacin [From Indocin] AdvReac Intermediate Diarrhea Verified 07/31/23 15:40 meloxicam [From Mobic] AdvReac Intermediate Diarrhea Verified 07/31/23 15:40 spironolactone AdvReac Intermediate Dizziness Verified 07/31/23 15:40 and severe headaches Family History Mother CVA (cerebral vascular accident) Heart disease Hypertension CAD (coronary artery disease) Cancer kidney Father Cancer lung Sister Fibromyalgia Brother Cancer prostate Surgical History History of radiofrequency ablation (RFA) for complex left atrial arrhythmia (~12/2022) History of tonsillectomy and adenoidectomy Presence of coronary angioplasty implant and graft (~10/06/22) S/P eye surgery S/P hip replacement S/P knee replacement S/P shoulder replacement Social History Smoking Status: Former smoker quit date: 07/18/71 pack-years: 10 how long ago did patient quit smokin alcohol intake: current alcohol intake frequency: a few times a week Alcohol type: beer substance use type: does not use caffeine: Yes Type: coffee Number of servings: 2 ROS ROS ED Constitutional Constitutional ED: Denies chills, fever(s) or weight loss Eyes Eyes: Denies change in vision or diplopia ENT ENT ED: Denies ear pain, rhinorrhea or sore throat Cardiovascular Cardiovascular: Reports chest pain; Denies orthopnea, palpitations or racing heartbeat Respiratory/Chest Respiratory/Chest: Denies cough, dyspnea or orthopnea Gastrointestinal Gastrointestinal: Denies abdominal pain, diarrhea, nausea or vomiting Genitourinary Genitourinary ED: Denies dysuria, hematuria or urinary frequency Musculoskeletal Musculoskeletal: Reports other Details: Right hand swelling and hematoma over the dorsum of the hand along the second and third MCP joint. There is chronic arthritic deformity of the left little finger DIP joint with associated abrasion and ecchymosis. There are superficial abrasions to the anterior left knee without significant effusion or deformity or ligamentous instability. ; Denies arthralgias or myalgias Integumentary Reports Abrasions; Denies abscess or rash Neurologic Neurologic: Denies headache(s) or weakness Psychiatric Psychiatric: Denies anxiety, depression, suicidal ideation or suicidal thoughts Endocrine Endocrinology: Denies polydipsia, polyphagia or polyuria Allergic/Immunologic Allergic/Immunologic ED: Denies mouth swelling, tongue swelling or urticaria EXAM Physical Exam Const Vital Signs: 07/31/23 15:38 07/31/23 15:48 Temperature 97.2 F L Temperature Source Temporal Pulse Rate 76 Respiratory Rate 15 Respiratory Pattern Normal Blood Pressure 150/78 H Blood Pressure Mean 102 Pulse Ox 100 Oxygen Delivery Method Room Air MDM MDM MDM Narrative Medical decision making narrative: My independent interpretation of the plain films of the left little finger is no obvious fracture. There is some osteoarthritis particular at the DIP joint. My independent rotation of the plain films of the right hand is no acute fracture. Soft tissue swelling. CT of the chest demonstrated no obvious sternal or rib fractures. No pneumothorax or pulmonary contusion seen. There is no obvious costochondral separation either on physical exam or on CT. At this point patient can be treated conservatively at home. We talked about deep breathing exercises. Follow-up with primary care return if worsening or concerns Radiography Diagnostic Testing: Clinical Impression(s) from Imaging Studies Chest CT 07/31/23 15:55 IMPRESSION: 3.3 mm right lower lobe nodule, unchanged since exam dated 12/23/2017 and therefore compatible with benign process, no further follow-up imaging recommended. Trace bilateral lower lobe atelectasis, otherwise no acute cardiopulmonary disease. No pleural effusion or pneumothorax. Electronically Signed: Rizwana Hedrick MD at 16:55 EST , Finger X-Ray 07/31/23 15:55 IMPRESSION: Question osteopenia with osteoarthritis, more severe at the distal interphalangeal joint. No acute fracture or subluxation. Electronically Signed: Rizwana Hedrick MD at 16:24 EST Reading Location ID and State: [employer] / [place] , Service support , Hand X-Ray 07/31/23 16:06 IMPRESSION: Possible osteopenia. Osteoarthritis. No acute fracture or subluxation. Electronically Signed: Rizwana Hedrick MD at 16:26 EST Reading Location ID and State: [employer] / [place] , Service support , Discharge Plan Triage Chief Complaint: Chest Other ED Provider: Cabrera Ngo Dx/Rx/DC Orders Clinical Impression: Hematoma of right hand, Sprain of left little finger, Contusion of left chest wall, Fall, Abrasion, knee Instructions: ED Hand Contusion, ED Bruise, Rib, ED Finger Sprain Prescriptions: No Action simvastatin 20 mg tablet 20 mg PO QPM sildenafil 100 mg tablet 100 mg PO DAILY PRN (Reason: sexual activity) Rx Instructions: Take 0.5-1 tab by mouth 1 hour before activity multivitamin Liquid 5 ml PO DAILY acetaminophen 325 mg tablet 325 mg PO Q4H PRN (Reason: fever or pain) Probiotic 3 billion cell capsule 3,000 mmu cells PO DAILY Rx Instructions: administer with a meal lisinopril 2.5 mg tablet PO Patient Comments: TAKE 1 TABLET BY MOUTH EVERY DAY clopidogrel 75 mg Tablet 75 mg PO DAILY Qty: 90 4RF hydroxychloroquine 200 mg tablet 200 mg PO DAILY Patient Comments: TAKE 1 TABLET BY MOUTH TWICE A DAY magnesium 250 mg tablet 500 mg PO QHS allopurinol 100 mg tablet 100 mg PO BID pantoprazole 20 mg tablet,delayed release (DR/EC) 20 mg PO DAILY melatonin 5 mg capsule 5 mg PO QHS carvedilol 6.25 mg tablet 6.25 mg PO BID Qty: 60 0RF Rx Instructions: must administer with a meal/food furosemide [Lasix] 40 mg tablet 20 mg PO DAILY PRN (Reason: diuretic) Qty: 0 0RF Eliquis 5 mg tablet 5 mg PO BID Qty: 180 3RF Primary Care Provider: Nolan Vigil Referrals: Nolan Vigil MD [Primary Care Provider] - 1 Week Disposition Disposition: Home, Self Care
--- NOTE | 2023-07-31 16:06 | RAD_ITS ---
STUDY: X-RAY - RIGHT HAND REASON FOR EXAM: Male, 77 years old. trauma TECHNIQUE: 3 view(s) of the hand. COMPARISON: None. FINDINGS: Possible diffuse osteopenia. There is joint space narrowing of the radiocarpal articulation consistent mild degenerative arthrosis. Normal distal radioulnar joint. Normal visualized carpal bones. There is degenerative joint disease of the scaphotrapezium / trapezoid articulation. The remainder of the carpal articulations are normal. There is degenerative arthrosis of the carpometacarpal (CMC) articulation of the thumb. Normal second through fifth carpometacarpal joints. Normal metacarpi. There is degenerative arthrosis of the metacarpophalangeal (MCP) joints. There is degenerative arthrosis of the interphalangeal joint of the thumb with articular joint space narrowing. Normal proximal and distal phalanges of the thumb. Normal metacarpophalangeal joints of the second and third fingers. There is diffuse articular joint space narrowing of the proximal and distal interphalangeal joints of the second through fifth fingers, but without erosive changes or periarticular soft tissue swelling. This is more severe at the distal interphalangeal joints, and most significant at the first digit. Normal phalanges of the second through fifth fingers. The soft tissue structures are unremarkable. RAD/Hand Min 3 Views IMPRESSION: Possible osteopenia. Osteoarthritis. No acute fracture or subluxation. Electronically Signed: Rizwana Hedrick MD at 16:26 EST ,
--- OUTSIDE RECORDS SUMMARY | 2023-07-31 16:28 | XMS RPT_ITS | CCD ---
Author Name Unknown Address [address] [place] [address] [facility] Care Team Providers Care Move Coordinator Name Role Phone VICKIE PAEZ Unavailable Unavailable IMCA Unavailable Unavailable Federico Vigil Unavailable Unavailable VICKIE PAEZ Unavailable Unavailable IMCA Unavailable Unavailable Federico Vigil Unavailable Unavailable ANTOINETTE DEAN Unavailable Unavailable eFderico Vigil Unavailable Unavailable Federico Vigil Unavailable Unavailable Serge Dubon MD Unavailable Federico Vigil MD Primary Care Provider Federico Vigil MD Primary Care Provider Federico Vigil MD Primary Care Provider Federico Vigil MD Primary Care Provider CLAUDETTE MORGAN Referring Unavailable MCKENNA MILLER Attending Unavailable FEDERICO VIGIL Primary Care Unavailable MATTO, SUNNY Admitting Unavailable MATELEONORA, SUNNY Attending Unavailable FEDERICO VIGIL Primary Care Unavailable MATTO, SUNNY Referring Unavailable FEDERICO VIGIL Primary Care Unavailable MATTO, SUNNY Referring Unavailable FEDERICO VIGIL Primary Care Unavailable ELENA WATKINS Attending Unavailable FEDERICO VIGIL Primary Care Unavailable FEDERICO VIGIL Referring Unavailable MATTO, SUNNY Attending Unavailable FEDERICO VIGIL Primary Care Unavailable MATELEONORA, SUNNY Attending Unavailable FEDERICO VIGIL Primary Care Unavailable ANDRESSA SAM Attending Unavailable FEDERICO VIGIL Primary Care Unavailable MATTO, SUNNY Referring Unavailable FEDERICO VIGIL Primary Care Unavailable FEDERICO VIGIL Primary Care Unavailable RUTH PEREZ Referring Unavailable FEDERICO VIGIL Primary Care Unavailable FEDERICO VIGIL Primary Care Unavailable URTH PEREZ Referring Unavailable ELDERBROCK, FEDERICO D Primary Care Unavailable ELDERBROCK, FEDERICO D Primary Care Unavailable TESTRAKE, KARINA Attending Unavailable ELDERBROCK, FEDERICO D Primary Care Unavailable TESTRAKE, KARINA Referring Unavailable ELDERBROCK, FEDERICO D Primary Care Unavailable SANTIAGO ELENA Referring Unavailable ELDERBROCK, FEDERICO D Primary Care Unavailable HIRAL, CABRERA P Referring Unavailable HIRAL, CABRERA P Attending Unavailable ELDERBROCK, FEDREICO D Primary Care Unavailable ELDERBROCK, FEDERICO D Primary Care Unavailable ELDERBROCK, FEDERICO D Referring Unavailable CLAUDETTE MORGAN Attending Unavailable TANNHOF, RUTH Attending Unavailable ELDERBROCK, FEDERICO D Primary Care Unavailable ELDERBROCK, FEDERICO D Primary Care Unavailable HIRAL, CABRERA P Referring Unavailable TANNHOF, RUTH Referring Unavailable ELDERBROCK, FEDERICO D Primary Care Unavailable ELDERBROCK, FEDERICO D Primary Care Unavailable TANNHOF, RUTH Referring Unavailable ELDERBROCK, FEDERICO D Primary Care Unavailable TESTRAKE, KARINA Attending Unavailable ELDERBROCK, FEDERICO D Primary Care Unavailable ELDERBROCK, FEDERICO D Primary Care Unavailable TESTRAKE, KARINA Referring Unavailable ELDERBROCK, FEDERICO D Primary Care Unavailable ELDERBROCK, FEDERICO D Attending Unavailable ELDERBROCK, FEDERICO D Primary Care Unavailable ELDERBROCK, FEDERICO D Referring Unavailable TANNHOF, RUTH Attending Unavailable ELDERBROCK, FEDERICO D Primary Care Unavailable TANNHOF, RUTH Attending Unavailable ELDERBROCK, FEDERICO D Primary Care Unavailable TANNHOF, RUTH Attending Unavailable ELDERBROCK, FEDERICO D Primary Care Unavailable TANNHOF, RUTH Referring Unavailable ELDERBROCK, FEDERICO D Primary Care Unavailable ELDERBROCK, FEDERICO D Primary Care Unavailable JOSIAH CHRISTOPHER Referring Unavailable ELDERBROCK, FEDERICO D Primary Care Unavailable ELDERBROCK, FEDERICO D Primary Care Unavailable TESTRAKE, KARINA Attending Unavailable ELDERBROCK, FEDERICO D Primary Care Unavailable TESTRAKE, KARINA Referring Unavailable ELDERBROCK, FEDERICO D Primary Care Unavailable TESTRAKE, KARINA Referring Unavailable ELDERBROCK, FEDERICO D Primary Care Unavailable ELDERBROCK, FEDERICO D Attending Unavailable ELDERBROCK, FEDERICO D Primary Care Unavailable TANNHOF, RUTH Attending Unavailable ELDERBROCK, FEDERICO D Primary Care Unavailable TANNHOF, RUTH Referring Unavailable ELDERBROCK, FEDERICO D Primary Care Unavailable TANNHOF, RUTH Attending Unavailable ELDERBROCK, FEDERICO D Primary Care Unavailable Allergies Allergy Classification Reported Allergen(s) Allergy Type Date of Onset Reaction(s) Facility (20 sources) indomethacin; Translations: [INDOMETHACIN SODIUM] Drug Allergy 05-05-2005 Diarrhea [facility] (20 sources) meloxicam; Translations: [MELOXICAM] Drug Allergy 08-16-2014 Diarrhea [facility] (1 source) Indomethacin Drug Allergy 05-17-2014 nausea [facility] Work Phone: Medications Current Medications Medication Drug Class(es) Dates Sig (Normalized) Sig (Original) amoxicillin 875 mg / clavulanate 125 mg oral tablet (9 sources) Penicillin-class Antibacterial Start: 10-12-2022 End: 10-19-2022 amoxicillin-clavul anic acid (AUGMENTIN) 875-125 mg per tablet Indications: Acute gout involving toe of left foot, unspecified cause Take 1 tablet by mouth twice daily for 7 days. FOR 7 DAYS. 14 tablet 0 10/12/2022 10/19/2022 Active Completed/Discontinued Medications Medication Drug Class(es) Dates Sig (Normalized) Sig (Original) allopurinol 100 mg oral tablet (20 sources) Xanthine Oxidase Inhibitor Start: 08-13-2022 End: 05-24-2023 take 1 tablet by mouth every twelve hours allopurinol (ZYLOPRIM) 100 mg tablet take 1 tablet by mouth twice a day 180 tablet 3 05/24/2023 Active Problems Active Problems Problem Classification Problem Date Documented Da te Episodic/Chronic Abdominal pain (1 source) Upper abdominal pain; Translations: [Upper abdominal pain, unspecified] 05-02-2023 Episodic Acquired foot deformities (1 source) Tailor's bunion of right foot; Translations: [Bunionette of right foot] Episodic Cardiac dysrhythmias (20 sources) Atrial fibrillation; Translations: [Unspecified atrial fibrillation] Onset: 3 08-30-2022 Chronic Conditions associated with dizziness or vertigo (4 sources) Dizziness; Translations: [Dizziness and giddiness] Onset: 3 Episodic Coronary atherosclerosis and other heart disease (20 sources) Ischemic myocardial dysfunction; Translations: [Ischemic cardiomyopathy] Onset: 3 Chronic Deficiency and other anemia (8 sources) Anemia; Translations: [Anemia, unspecified] Onset: 3 05-19-2023 Episodic Deficiency and other anemia (1 source) Anemia, unspecified; Translations: [Anemia, unspecified type] Onset: 3 Episodic Disorders of lipid metabolism (20 sources) Mixed hyperlipidemia; Translations: [Mixed hyperlipidemia] Onset: 5 10-27-2015 Chronic Diverticulosis and diverticulitis (20 sources) Diverticulosis of colon; Translations: [Diverticulosis of large intestine without perforation or abscess without bleeding] Onset: 7 08-24-2006 Chronic Esophageal disorders (20 sources) Gastroesophageal reflux disease; Translations: [Gastro-esophageal reflux disease without esophagitis] Onset: 7 04-27-2017 Chronic Essential hypertension (20 sources) Benign essential hypertension; Translations: [Essential (primary) hypertension] Onset: 5 07-13-2021 Chronic Gout and other crystal arthropathies (20 sources) Gout; Translations: [Gout, unspecified] Onset: 6 08-31-2005 Chronic Hyperplasia of prostate (1 source) Benign prostatic hyperplasia without lower urinary tract symptoms; Translations: [Benign prostatic hyperplasia, unspecified whether lower urinary tract symptoms present] Onset: 4 Chronic Immunizations and screening for infectious disease (2 sources) Suspected disease caused by 2019-nCoV; Translations: [Suspected COVID-19 virus infection] Episodic Occlusion or stenosis of precerebral arteries (20 sources) Bilateral stenosis of carotid arteries; Translations: [Occlusion and stenosis of bilateral carotid arteries] Onset: 9 01-20-2018 Chronic Osteoarthritis (1 source) Osteoarthritis of knee; Translations: [Unilateral primary osteoarthritis, right knee] Onset: 5 04-09-2015 Chronic Other aftercare (1 source) Long-term current use of drug therapy; Translations: [Other mcc (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] 03-28-2023 Episodic Other aftercare (1 source) Long-term current use of anticoagulant; Translations: [manager intermediate (current) use of anticoagulants] 03-28-2023 Episodic Other aftercare (1 source) 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; Translations: [manager intermediate current use of antiarrhythmic drug] Onset: 3 Episodic Other aftercare (1 source) [facility] (current) use of anticoagulants; Translations: [manager intermediate (current) use of anticoagulants] Onset: 3 Episodic Other and unspecified benign neoplasm (9 sources) History of polyp of colon; Translations: [Personal history of colonic polyps] Onset: 3 05-02-2023 Episodic Other and unspecified benign neoplasm (1 source) Personal history of colonic polyps; Translations: [History of colonic polyps] Onset: 3 Episodic Other bone disease and musculoskeletal deformities (20 sources) Avascular necrosis of bone; Translations: [Idiopathic aseptic necrosis of unspecified bone] Onset: 1 08-24-2010 Chronic Other circulatory disease (1 source) Personal history of other diseases of the circulatory system; Translations: [Status post ablation of atrial flutter] Onset: 3 Episodic Other congenital anomalies (20 sources) Congenital pes planus; Translations: [Congenital pes planus, unspecified foot] Onset: 8 07-05-2008 Chronic Other connective tissue disease (1 source) H/O: artificial joint; Translations: [Presence of right artificial knee joint] Onset: 5 07-16-2015 Chronic Other connective tissue disease (20 sources) History of operative procedure on shoulder; Translations: [Presence of unspecified artificial shoulder joint] Onset: 1 06-28-2011 Chronic Other connective tissue disease (1 source) Bursitis of right foot; Translations: [Other enthesopathy of right foot and ankle] Episodic Other connective tissue disease (1 source) Cramp in lower limb; Translations: [Cramp and spasm] Episodic Other connective tissue disease (4 sources) Pain in left foot; Translations: [Pain in left foot] Episodic Other connective tissue disease (1 source) Toe swelling; Translations: [Other specified soft tissue disorders] Episodic Other connective tissue disease (1 source) H/O: gout; Translations: [Personal history of other diseases of the musculoskeletal system and connective tissue] Episodic Other connective tissue disease (1 source) Pain in right foot; Translations: [Pain in right foot] 11-03-2022 Episodic Other connective tissue disease (8 sources) H/O: arthritis; Translations: [Personal history of other diseases of the musculoskeletal system and connective tissue] Onset: 3 05-19-2023 Episodic Other connective tissue disease (2 sources) Personal history of other diseases of the musculoskeletal system and connective tissue; Translations: [History of arthritis] Onset: 3 Episodic Other ear and sense organ disorders (2 sources) Tinnitus; Translations: [Tinnitus, unspecified ear] 05-08-2023 Episodic Other ear and sense organ disorders (1 source) Impacted cerumen of bilateral ears; Translations: [Impacted cerumen, bilateral] 05-09-2023 Episodic Other ear and sense organ disorders (1 source) Tinnitus, unspecified ear; Translations: [Tinnitus, unspecified laterality] Onset: 3 Episodic Other gastrointestinal disorders (3 sources) Swallowing painful; Translations: [Dysphagia, unspecified] Episodic Other gastrointestinal disorders (9 sources) Dysphagia; Translations: [Dysphagia, unspecified] Onset: 3 05-20-2023 Episodic Other gastrointestinal disorders (2 sources) Dysphagia, unspecified; Translations: [Dysphagia, unspecified type] Onset: 3 Episodic Other liver diseases (20 sources) Large liver; Translations: [Hepatomegaly, not elsewhere classified] 08-31-2005 Episodic Other lower respiratory disease (3 sources) Cough; Translations: [Acute cough] Episodic Other lower respiratory disease (1 source) Lower respiratory tract infection; Translations: [Unspecified acute lower respiratory infection] Episodic Other lower respiratory disease (20 sources) Dyspnea; Translations: [Shortness of breath] Onset: 3 Episodic Other lower respiratory disease (1 source) Dyspnea, unspecified; Translations: [Dyspnea, unspecified type] Onset: 3 Episodic Other male genital disorders (20 sources) Secondary erectile dysfunction; Translations: [Male erectile dysfunction, unspecified] Onset: 7 04-27-2017 Chronic Other skin disorders (1 source) Eruption; Translations: [Rash and other nonspecific skin eruption] 04-17-2023 Episodic Other upper respiratory disease (20 sources) Allergic rhinitis; Translations: [Allergic rhinitis, unspecified] 08-31-2005 Chronic Judy-; endo-; and myocarditis; cardiomyopathy (except that caused by tuberculosis or sexually transmitted disease) (3 sources) Cardiomyopathy; Translations: [Cardiomyopathy, unspecified] Onset: 3 06-22-2023 Chronic Peripheral and visceral atherosclerosis (20 sources) Peripheral vascular disease, unspecified; Translations: [Peripheral vascular disease, unspecified] Onset: 9 05-01-2019 Chronic Residual codes; unclassified (1 source) Daytime somnolence; Translations: [Other hypersomnia] 03-03-2023 Chronic Residual codes; unclassified (3 sources) Pain; Translations: [Pain, unspecified] Episodic Residual codes; unclassified (20 sources) History of atrial flutter; Translations: [Other specified postprocedural states] Onset: 3 03-28-2023 Episodic Residual codes; unclassified (2 sources) Other specified personal risk factors, not elsewhere classified; Translations: [Other specified personal history presenting hazards to health] Onset: 3 03-28-2023 Episodic Residual codes; unclassified (2 sources) Other specified postprocedural states; Translations: [Status post ablation of atrial flutter] Onset: 3 Episodic Rheumatoid arthritis and related disease (10 sources) Inflammatory polyarthropathy; Translations: [Inflammatory polyarthropathy] Onset: 3 05-19-2023 Chronic Screening and history of mental health and substance abuse codes (9 sources) Ex-smoker; Translations: [Personal history of nicotine dependence] Onset: 3 05-19-2023 Episodic Thyroid disorders (4 sources) Goiter; Translations: [Nontoxic goiter, unspecified] Onset: 3 Chronic Unclassified (1 source) Unknown / UNK(Unknown) Onset: 8 Unclassified (1 source) History of repair of hip joint; Translations: [Presence of left artificial hip joint] Onset: 6 06-30-2016 Unclassified (1 source) Other persistent atrial fibrillation; Translations: [Persistent atrial fibrillation (HCC)] Onset: 3 Past or Other Problems Problem Classification Problem Date Documented Da te Episodic/Chronic Acquired foot deformities (3 sources) Tailor's bunion of left foot; Translations: [Bunionette of left foot] Onset: 10-25-2022 Episodic Coronary atherosclerosis and other heart disease (1 source) Presence of coronary angioplasty implant and graft; Translations: [S/P drug eluting coronary stent placement] Onset: 11-29-2022 Episodic Hemorrhoids (20 sources) Internal hemorrhoids; Translations: [Other hemorrhoids] Onset: 08-24-2006 08-24-2006 Episodic Other and unspecified benign neoplasm (20 sources) Benign neoplasm of colon; Translations: [Benign neoplasm of colon, unspecified] Onset: 08-24-2006 08-24-2006 Episodic Other connective tissue disease (20 sources) Enthesopathy of ankle AND/OR tarsus; Translations: [Other enthesopathy of unspecified foot and ankle] Onset: 07-05-2008 07-05-2008 Episodic Other connective tissue disease (1 source) Pain in right foot; Translations: [Pain in right foot] Onset: 11-03-2022 Episodic Other connective tissue disease (1 source) Pain in left foot; Translations: [Pain in left foot] Onset: 10-25-2022 Episodic Other lower respiratory disease (1 source) Shortness of breath; Translations: [SOB (shortness of breath)] Onset: 08-30-2022 Episodic Other screening for suspected conditions (not mental disorders or infectious disease) (1 source) Other specified abnormal findings of blood chemistry; Translations: [Abnormal CBC] Onset: 04-06-2023 Episodic Rehabilitation care; fitting of prostheses; and adjustment of devices (20 sources) Patient encounter status; Translations: [Other physical therapy] Onset: 10-01-2010 10-01-2010 Episodic Residual codes; unclassified (20 sources) H/O cardiac surgery; Translations: [Other specified postprocedural states] Onset: 12-21-2022 12-21-2022 Episodic Residual codes; unclassified (1 source) Pain, unspecified; Translations: [Pain] Onset: 09-27-2022 Episodic Spondylosis; intervertebral disc disorders; other back problems (3 sources) Tenderness of neck; Translations: [Cervicalgia] Onset: 04-13-2023 05-09-2023 Episodic Unclassified (1 source) Occlusion and stenosis of bilateral carotid arteries Onset: 01-20-2018 Unclassified (1 source) Problem Results Test Name Value Interpretation Reference Range Facil ity Vital Signs Date Time Vital Sign Value Performing Clinician Facility 06-22-2023 14:48-0500 Body height 179.1 cm Sunny Walker MD Work Phone: [facility] 06-22-2023 14:48-0500 Body weight 75.75 kg Sunny Walker MD Work Phone: [facility] 06-22-2023 14:48-0500 Diastolic blood pressure 66 mm[Hg] Sunny Walker MD Work Phone: [facility] 06-22-2023 14:48-0500 Heart rate 72 /min Sunny Walker MD Work Phone: [facility] 06-22-2023 14:48-0500 SaO2% (BldA) [Mass fraction] 98 % Sunny Walker MD Work Phone: [facility] 06-22-2023 14:48-0500 Systolic blood pressure 108 mm[Hg] Sunny Walker MD Work Phone: [facility] 06-06-2023 14:52-0500 Body height 179.1 cm Cabrera Mejia MD Work Phone: [facility] 06-06-2023 14:52-0500 Body temperature 96.49 [degF] Cabrera Mejia MD Work Phone: [facility] 06-06-2023 14:52-0500 Body weight 78.47 kg Cabrera Mejia MD Work Phone: [facility] 06-06-2023 14:52-0500 Diastolic blood pressure 58 mm[Hg] Cabrera Mejia MD Work Phone: [facility] 06-06-2023 14:52-0500 Heart rate 68 /min Cabrera Mejia MD Work Phone: [facility] 06-06-2023 14:52-0500 SaO2% (BldA) [Mass fraction] 100 % Cabrera Mejia MD Work Phone: [facility] 06-06-2023 14:52-0500 Systolic blood pressure 112 mm[Hg] Cabrera Mejia MD Work Phone: [facility] 05-09-2023 12:47-0400 Body weight 78.47 kg Ruth Perez APRN.CNP Work Phone: [facility] 05-09-2023 12:47-0400 Diastolic blood pressure 50 mm[Hg] Ruth Tannhof PROTECTION MGR.FLATBED PRESS OPERATOR Work Phone: [facility] 05-09-2023 12:47-0400 Heart rate 66 /min Ruth Smithhof PROTECTION MGR.FLATBED PRESS OPERATOR Work Phone: [facility] 05-09-2023 12:47-0400 Respiratory rate 16 /min Ruth Tannhof PROTECTION MGR.FLATBED PRESS OPERATOR Work Phone: [facility] 05-09-2023 12:47-0400 SaO2% (BldA) [Mass fraction] 97 % Ruthchikis Smithhof PROTECTION MGR.FLATBED PRESS OPERATOR Work Phone: [facility] 05-09-2023 12:47-0400 Systolic blood pressure 100 mm[Hg] Ruth Tannhof PROTECTION MGR.FLATBED PRESS OPERATOR Work Phone: [facility] 04-26-2023 12:56-0400 Body height 177.8 cm Claudette Luther PA-C Work Phone: [facility] 04-26-2023 12:56-0400 Body temperature 97.2 [degF] Claudette Pojoaque PA-C Work Phone: [facility] 04-26-2023 12:56-0400 Body weight 78.47 kg Claudette Pojoaque PA-C Work Phone: [facility] 04-26-2023 12:56-0400 Diastolic blood pressure 64 mm[Hg] Claudette Luther PA-C Work Phone: [facility] 04-26-2023 12:56-0400 Heart rate 61 /min Claudette Pojoaque PA-C Work Phone: [facility] 04-26-2023 12:56-0400 SaO2% (BldA) [Mass fraction] 97 % Claudette Luther PA-C Work Phone: [facility] 04-26-2023 12:56-0400 Systolic blood pressure 132 mm[Hg] Claudette Pojoaque PA-C Work Phone: [facility] 04-17-2023 12:14-0400 Body temperature 97.59 [degF] Josiah Rich MELENDEZ.FLATBED PRESS OPERATOR Work Phone: [facility] 04-17-2023 12:14-0400 Body weight 80.56 kg Josiah Rich MELENDEZ.FLATBED PRESS OPERATOR Work Phone: [facility] 04-17-2023 12:14-0400 Diastolic blood pressure 62 mm[Hg] Josiah Christopher APRN.FLATBED PRESS OPERATOR Work Phone: [facility] 04-17-2023 12:14-0400 Heart rate 60 /min Josiahshelton Christopher APRN.FLATBED PRESS OPERATOR Work Phone: [facility] 04-17-2023 12:14-0400 Respiratory rate 16 /min Josiah Christopher APRN.FLATBED PRESS OPERATOR Work Phone: [facility] 04-17-2023 12:14-0400 SaO2% (BldA) [Mass fraction] 99 % Josiah Christopher APRN.FLATBED PRESS OPERATOR Work Phone: [facility] 04-17-2023 12:14-0400 Systolic blood pressure 152 mm[Hg] Josiah Christopher APRN.FLATBED PRESS OPERATOR Work Phone: [facility] 03-29-2023 14:54-0400 Body height 177.8 cm Andressa Sam APRN.FLATBED PRESS OPERATOR Work Phone: [facility] 03-29-2023 14:54-0400 Body weight 78.83 kg Andressa Sam APRN.FLATBED PRESS OPERATOR Work Phone: [facility] 03-29-2023 14:54-0400 Diastolic blood pressure 49 mm[Hg] Andressa Sam APRN.FLATBED PRESS OPERATOR Work Phone: [facility] 03-29-2023 14:54-0400 Heart rate 66 /min Andressa Sam APRN.FLATBED PRESS OPERATOR Work Phone: [facility] 03-29-2023 14:54-0400 SaO2% (BldA) [Mass fraction] 96 % Andressa Sam APRN.FLATBED PRESS OPERATOR Work Phone: [facility] 03-29-2023 14:54-0400 Systolic blood pressure 132 mm[Hg] Andressa Sam APRN.FLATBED PRESS OPERATOR Work Phone: [facility] 01-17-2023 15:03-0400 Body weight 76.66 kg Federico Vigil MD Work Phone: [facility] 01-17-2023 15:03-0400 Diastolic blood pressure 60 mm[Hg] Federico Vigil MD Work Phone: [facility] 01-17-2023 15:03-0400 Heart rate 80 /min Federico Vigil MD Work Phone: [facility] 01-17-2023 15:03-0400 Respiratory rate 16 /min Federico Vigil MD Work Phone: [facility] 01-17-2023 15:03-0400 Systolic blood pressure 122 mm[Hg] Federico Vigil MD Work Phone: [facility] 11-29-2022 09:33-0400 Body height 177.8 cm Sunny Walker MD Work Phone: [facility] 11-29-2022 09:33-0400 Body weight 80.02 kg Sunny Walker MD Work Phone: [facility] 11-29-2022 09:33-0400 Diastolic blood pressure 69 mm[Hg] Sunny Walker MD Work Phone: [facility] 11-29-2022 09:33-0400 Heart rate 65 /min Sunny Walker MD Work Phone: [facility] 11-29-2022 09:33-0400 SaO2% (BldA) [Mass fraction] 99 % Sunny Walker MD Work Phone: [facility] 11-29-2022 09:33-0400 Systolic blood pressure 122 mm[Hg] Sunny Walker MD Work Phone: [facility] 10-27-2022 10:50-0400 Body weight 81.65 kg Ruth Perez APRN.FLATBED PRESS OPERATOR Work Phone: [facility] 10-27-2022 10:50-0400 Diastolic blood pressure 88 mm[Hg] Ruth Smithhof PROTECTION MGR.FLATBED PRESS OPERATOR Work Phone: [facility] 10-27-2022 10:50-0400 Heart rate 83 /min Ruth Smithhof PROTECTION MGR.FLATBED PRESS OPERATOR Work Phone: [facility] 10-27-2022 10:50-0400 Respiratory rate 16 /min Ruth Smithhof PROTECTION MGR.FLATBED PRESS OPERATOR Work Phone: [facility] 10-27-2022 10:50-0400 SaO2% (BldA) [Mass fraction] 100 % Ruth Smithhof PROTECTION MGR.FLATBED PRESS OPERATOR Work Phone: [facility] 10-27-2022 10:50-0400 Systolic blood pressure 130 mm[Hg] Ruth Smithhof PROTECTION MGR.FLATBED PRESS OPERATOR Work Phone: [facility] 09-27-2022 08:55-0400 Body temperature 98.49 [degF] Josiah Christopher APRN.FLATBED PRESS OPERATOR Work Phone: [facility] 09-27-2022 08:55-0400 Body weight 80.47 kg Josiah Christopher APRN.FLATBED PRESS OPERATOR Work Phone: [facility] 09-27-2022 08:55-0400 Diastolic blood pressure 62 mm[Hg] Josiah Christopher PROTECTION MGR.FLATBED PRESS OPERATOR Work Phone: [facility] 09-27-2022 08:55-0400 Heart rate 77 /min Josiah Christopher APRN.FLATBED PRESS OPERATOR Work Phone: [facility] 09-27-2022 08:55-0400 Respiratory rate 18 /min Josiah Christopher PROTECTION MGR.FLATBED PRESS OPERATOR Work Phone: [facility] 09-27-2022 08:55-0400 SaO2% (BldA) [Mass fraction] 98 % Josiah Christopher APRN.FLATBED PRESS OPERATOR Work Phone: [facility] 09-27-2022 08:55-0400 Systolic blood pressure 126 mm[Hg] Josiah Christopher PROTECTION MGR.FLATBED PRESS OPERATOR Work Phone: [facility] 08-05-2022 10:51-0500 Body weight 81.19 kg Ruth Tannhof PROTECTION MGR.FLATBED PRESS OPERATOR Work Phone: [facility] 08-05-2022 10:51-0500 Diastolic blood pressure 70 mm[Hg] Ruth Tannhof PROTECTION MGR.FLATBED PRESS OPERATOR Work Phone: [facility] 08-05-2022 10:51-0500 Heart rate 69 /min Ruth Tannhof PROTECTION MGR.FLATBED PRESS OPERATOR Work Phone: [facility] 08-05-2022 10:51-0500 Respiratory rate 16 /min Ruth Tannhof PROTECTION MGR.FLATBED PRESS OPERATOR Work Phone: [facility] 08-05-2022 10:51-0500 SaO2% (BldA) [Mass fraction] 97 % Ruth Tannhof PROTECTION MGR.FLATBED PRESS OPERATOR Work Phone: [facility] 08-05-2022 10:51-0500 Systolic blood pressure 124 mm[Hg] Ruth Tannhof PROTECTION MGR.FLATBED PRESS OPERATOR Work Phone: [facility] 08-01-2022 09:31-0500 Body temperature 97 [degF] Royce Pendlebury PROTECTION MGR.FLATBED PRESS OPERATOR Work Phone: [facility] 08-01-2022 09:31-0500 Body weight 83.28 kg Royce Pendlebury PROTECTION MGR.FLATBED PRESS OPERATOR Work Phone: [facility] 08-01-2022 09:31-0500 Diastolic blood pressure 70 mm[Hg] Royce Pendlebury PROTECTION MGR.FLATBED PRESS OPERATOR Work Phone: [facility] 08-01-2022 09:31-0500 Heart rate 68 /min Royce Pendlebury PROTECTION MGR.FLATBED PRESS OPERATOR Work Phone: [facility] 08-01-2022 09:31-0500 Respiratory rate 18 /min Royce Pendlebury PROTECTION MGR.FLATBED PRESS OPERATOR Work Phone: [facility] 08-01-2022 09:31-0500 SaO2% (BldA) [Mass fraction] 99 % Royce Pendlebury PROTECTION MGR.FLATBED PRESS OPERATOR Work Phone: [facility] 08-01-2022 09:31-0500 Systolic blood pressure 148 mm[Hg] Royce Rivera PROTECTION MGR.FLATBED PRESS OPERATOR Work Phone: [facility] 07-29-2022 10:13-0500 Body temperature 98.2 [degF] Ruth Tannhof PROTECTION MGR.FLATBED PRESS OPERATOR Work Phone: [facility] 07-29-2022 10:13-0500 Body weight 81.65 kg Ruth Tannhof PROTECTION MGR.FLATBED PRESS OPERATOR Work Phone: [facility] 07-29-2022 10:13-0500 Diastolic blood pressure 72 mm[Hg] Ruth Tannhof PROTECTION MGR.FLATBED PRESS OPERATOR Work Phone: [facility] 07-29-2022 10:13-0500 Heart rate 60 /min Ruth Tannhof PROTECTION MGR.FLATBED PRESS OPERATOR Work Phone: [facility] 07-29-2022 10:13-0500 Respiratory rate 16 /min Ruth Tannhof PROTECTION MGR.FLATBED PRESS OPERATOR Work Phone: [facility] 07-29-2022 10:13-0500 SaO2% (BldA) [Mass fraction] 96 % Ruth Tannhof PROTECTION MGR.FLATBED PRESS OPERATOR Work Phone: [facility] 07-29-2022 10:13-0500 Systolic blood pressure 140 mm[Hg] Ruth Tannhof PROTECTION MGR.FLATBED PRESS OPERATOR Work Phone: [facility] 07-21-2022 08:20-0500 Body weight 82.56 kg Ruth Sarahhof PROTECTION MGR.FLATBED PRESS OPERATOR Work Phone: [facility] 07-21-2022 08:20-0500 Diastolic blood pressure 60 mm[Hg] Ruth Tannhof PROTECTION MGR.FLATBED PRESS OPERATOR Work Phone: [facility] 07-21-2022 08:20-0500 Heart rate 75 /min Ruth Tannhof PROTECTION MGR.FLATBED PRESS OPERATOR Work Phone: [facility] 07-21-2022 08:20-0500 Respiratory rate 16 /min Ruth Tannhof PROTECTION MGR.FLATBED PRESS OPERATOR Work Phone: [facility] 07-21-2022 08:20-0500 SaO2% (BldA) [Mass fraction] 96 % Ruth Tannhof PROTECTION MGR.FLATBED PRESS OPERATOR Work Phone: [facility] 07-21-2022 08:20-0500 Systolic blood pressure 130 mm[Hg] Ruth Tannhof PROTECTION MGR.FLATBED PRESS OPERATOR Work Phone: [facility] 04-28-2022 10:57-0400 Diastolic blood pressure 66 mm[Hg] Ruth Tannhof PROTECTION MGR.FLATBED PRESS OPERATOR Work Phone: [facility] 04-28-2022 10:57-0400 Systolic blood pressure 134 mm[Hg] Ruth Tannhof PROTECTION MGR.FLATBED PRESS OPERATOR Work Phone: [facility] 04-28-2022 10:55-0400 Body weight 79.83 kg Ruth Tannhof PROTECTION MGR.FLATBED PRESS OPERATOR Work Phone: [facility] 04-28-2022 10:55-0400 Heart rate 75 /min Ruth Tannhof PROTECTION MGR.FLATBED PRESS OPERATOR Work Phone: [facility] 04-28-2022 10:55-0400 Respiratory rate 20 /min Ruth Tannhof PROTECTION MGR.FLATBED PRESS OPERATOR Work Phone: [facility] 04-28-2022 10:55-0400 SaO2% (BldA) [Mass fraction] 98 % Ruth Tannhof PROTECTION MGR.FLATBED PRESS OPERATOR Work Phone: [facility] 04-15-2022 11:40-0400 Body temperature 97 [degF] Kinga Praisler-Wood PROTECTION MGR.FLATBED PRESS OPERATOR Work Phone: [facility] 04-15-2022 11:40-0400 Body weight 82.56 kg Kinga Praisler-Wood PROTECTION MGR.FLATBED PRESS OPERATOR Work Phone: [facility] 04-15-2022 11:40-0400 Diastolic blood pressure 84 mm[Hg] Kinga Praisler-Wood PROTECTION MGR.FLATBED PRESS OPERATOR Work Phone: [facility] 04-15-2022 11:40-0400 Heart rate 81 /min Kinga Praisler-Wood PROTECTION MGR.FLATBED PRESS OPERATOR Work Phone: [facility] 04-15-2022 11:40-0400 Respiratory rate 18 /min Kinga Praisler-Wood PROTECTION MGR.FLATBED PRESS OPERATOR Work Phone: [facility] 04-15-2022 11:40-0400 SaO2% (BldA) [Mass fraction] 98 % Kinga Praisler-Wood PROTECTION MGR.FLATBED PRESS OPERATOR Work Phone: [facility] 04-15-2022 11:40-0400 Systolic blood pressure 168 mm[Hg] Kinga Praisler-Wood PROTECTION MGR.FLATBED PRESS OPERATOR Work Phone: [facility] 03-04-2022 09:54-0400 Body height 179.1 cm Shabnam Caba MD Work Phone: [facility] 03-04-2022 09:54-0400 Body weight 79.38 kg Shabnam Caba MD Work Phone: [facility] 03-04-2022 09:54-0400 Diastolic blood pressure 70 mm[Hg] Shabnam Caba MD Work Phone: [facility] 03-04-2022 09:54-0400 Heart rate 72 /min Shabnam Caba MD Work Phone: [facility] 03-04-2022 09:54-0400 Respiratory rate 16 /min Shabnam Cbaa MD Work Phone: [facility] 03-04-2022 09:54-0400 Systolic blood pressure 132 mm[Hg] Shabnam Caba MD Work Phone: [facility] 01-15-2022 09:29-0400 Body weight 80.74 kg Ruth Perez PROTECTION MGR.FLATBED PRESS OPERATOR Work Phone: [facility] 01-15-2022 09:29-0400 Diastolic blood pressure 68 mm[Hg] Ruth Smithhopat PROTECTION MGR.FLATBED PRESS OPERATOR Work Phone: [facility] 01-15-2022 09:29-0400 Heart rate 59 /min [facility] PROTECTION MGR.FLATBED PRESS OPERATOR Work Phone: [facility] 01-15-2022 09:29-0400 Respiratory rate 16 /min Ruth Perez PROTECTION MGR.FLATBED PRESS OPERATOR Work Phone: [facility] 01-15-2022 09:29-0400 SaO2% (BldA) [Mass fraction] 98 % [facility] PROTECTION MGR.FLATBED PRESS OPERATOR Work Phone: [facility] 01-15-2022 09:29-0400 Systolic blood pressure 140 mm[Hg] [facility] PROTECTION MGR.FLATBED PRESS OPERATOR Work Phone: [facility] NEGATED: Highlighted [id number] 12:27-0500 BMI (Body Mass Index) 24.77 kg/m2 [facility] Work Phone: NEGATED: Highlighted [id number] 12:27-0500 BP Diastolic 84 mm[Hg] [facility] Work Phone: NEGATED: Highlighted [id number] 12:27-0500 BP Systolic 134 mm[Hg] [facility] Work Phone: NEGATED: Highlighted [id number] 12:27-0500 Height 177.8 cm [facility] Work Phone: NEGATED: Highlighted [id number] 12:27-0500 Height 178 cm [facility] Work Phone: NEGATED: Highlighted [id number] 12:27-0500 Pulse (Heart Rate) 85 /min [facility] Work Phone: NEGATED: Highlighted [id number] 12:27-0500 Weight 78.02 kg [facility] Work Phone: NEGATED: Highlighted [id number] 12:27-0500 Weight 78 kg Tita Angulo [facility] Work Phone: Encounters Encounter Date Encounter Type Care Provider Facility Start: 07-21-2023 End: 07-22-2023 ambulatory FEDERICO VIGIL Facility:[facility] Start: 07-12-2023 End: 07-12-2023 [facility] Start: 06-22-2023 End: 06-22-2023 ambulatory SUNNY WALKER Facility:[facility] Start: 06-22-2023 End: 06-22-2023 Patient encounter procedure Sunny Walker MD Work Phone: [facility] [place] Procedures Date Procedure Procedure Detail Performing Clinician Start: 05-25-2023 Ct angiography head w/contrast/noncontrast Ruth Perez PROTECTION MGR.FLATBED PRESS OPERATOR Work Phone: Start: 05-25-2023 Ct angiography neck w/contrast/noncontrast Ruth Perez PROTECTION MGR.FLATBED PRESS OPERATOR Work Phone: Start: 04-22-2023 INFLUENZA VACCINE, PRSV FREE, AGE 65+ YR, HIGH DOSE, QUADRIVALENT (FLUZONE HIGH-DOSE) Federico Vigil MD Work Phone: Start: 04-13-2023 Us soft tissue head & neck real time imge docwaldo Perez PROTECTION MGR.FLATBED PRESS OPERATOR Work Phone: Start: 03-29-2023 Ecg routine ecg w/least 12 lds w/i&r Andressa Sam PROTECTION MGR.FLATBED PRESS OPERATOR Work Phone: Start: 03-29-2023 Echo tthrc r-t 2d w/wom-mode compl spec&colr d Sunny Walker MD Work Phone: Start: 11-03-2022 Radex foot complete minimum 3 views Karina Cline Work Phone: Start: 07-23-2022 Us soft tissue head & neck real time imge docm Ruth Perez PROTECTION MGR.FLATBED PRESS OPERATOR Work Phone: Start: 04-28-2022 INFLUENZA SEASONAL QUADRIVALENT HIGH DOSE AGE 65+ Ruth Perez APRN.FLATBED PRESS OPERATOR Work Phone: Start: 11-24-2021 Radex foot complete minimum 3 views Karina Cline Work Phone: Start: 10-06-2021 Adult depression screening assessment Karma Alberto APRN.FLATBED PRESS OPERATOR Work Phone: Start: 08-04-2018 End: 08-08-2018 Blood pressure within normal parameters - no follow-up required Serge Dubon MD Work Phone: Start: 08-04-2018 End: 08-08-2018 BMI documented within normal parameters - no follow-up plan is required Serge Dubon MD Work Phone: Start: 08-04-2018 End: 08-08-2018 Documentation of current medications Serge Dubon MD Work Phone: Start: 08-04-2018 End: 08-08-2018 Pain assessment documented as negative - follow-up not required Serge Dubon MD Work Phone: Start: 08-04-2018 End: 08-04-2018 Radiologic examination knee 3 views Serge Dubon MD Work Phone: Start: 08-04-2018 End: 08-08-2018 Tobacco non-user Serge Holden i, MD Work Phone: Start: 10-01-2010 H/O: artificial joint Shoulder joint replacement by other means Karma Alberto APRN.FLATBED PRESS OPERATOR Work Phone: Start: 09-28-2010 H/O: artificial joint Shoulder joint replacement Karma Alberto APRN.FLATBED PRESS OPERATOR Work Phone: History of placement of stent for coronary artery disease S/P drug eluting coronary stent placement Sunny Walker MD Work Phone: Plan of Treatment Date Care Activity Detail Author Start: 12-21-2025 DIABETES SCREEN DIABETES SCREEN [facility] Start: 12-21-2025 [facility] Start: 07-21-2025 DIABETES SCREEN DIABETES SCREEN [facility] Start: 01-15-2025 DIABETES SCREEN DIABETES SCREEN [facility] Start: 10-06-2024 DIABETES SCREEN DIABETES SCREEN [facility] Start: 06-22-2024 BP Controlled (<130/80) BP Controlle d (<130/80) [facility] Start: 06-06-2024 BP Controlled (<130/80) BP Controlle d (<130/80) [facility] Start: 05-18-2024 BP Controlled (<130/80) BP Controlle d (<130/80) [facility] Start: 05-09-2024 Annual PCP Team Coding Validator ruth Disease Visit Annual PCP Team Chronic Disease Visit [facility] Start: 05-09-2024 BP Controlled (<130/80) BP Controlle d (<130/80) [facility] Start: 04-06-2024 Annual PCP Team Coding Validator ruth Disease Visit Annual PCP Team Chronic Disease Visit [facility] Start: 01-18-2024 ANNUAL PCP TEAM GUNSTOCK REPAIRER RUTH DISEASE VISIT ANNUAL PCP TEAM CHRONIC DISEASE VISIT [facility] Start: 01-18-2024 BP CONTROLLED (<130/80) BP CONTROLLE D (<130/80) [facility] Start: 11-30-2023 BP CONTROLLED (<130/80) BP CONTROLLE D (<130/80) [facility] Start: 10-28-2023 ANNUAL PCP TEAM GUNSTOCK REPAIRER RUTH DISEASE VISIT ANNUAL PCP TEAM CHRONIC DISEASE VISIT [facility] Start: 09-28-2023 BP CONTROLLED (<130/80) BP CONTROLLE D (<130/80) [facility] Start: 08-30-2023 ANNUAL PCP TEAM GUNSTOCK REPAIRER RUTH DISEASE VISIT ANNUAL PCP TEAM CHRONIC DISEASE VISIT [facility] Start: 08-30-2023 BP CONTROLLED (<130/80) BP CONTROLLE D (<130/80) [facility] Start: 08-05-2023 ANNUAL PCP TEAM GUNSTOCK REPAIRER RUTH DISEASE VISIT ANNUAL PCP TEAM CHRONIC DISEASE VISIT [facility] Start: 08-05-2023 BP CONTROLLED (<130/80) BP CONTROLLE D (<130/80) [facility] Start: 07-29-2023 ANNUAL PCP TEAM GUNSTOCK REPAIRER RUTH DISEASE VISIT ANNUAL PCP TEAM CHRONIC DISEASE VISIT [facility] Start: 07-21-2023 ANNUAL PCP TEAM GUNSTOCK REPAIRER RUTH DISEASE VISIT ANNUAL PCP TEAM CHRONIC DISEASE VISIT [facility] Start: 05-09-2023 End: 08-08-2023 CREATININE BLD CREATININE BLD Lab Routine Dizziness Tinnitus, unspecified laterality Expected: 05/09/2023, Expires: 08/08/2023 [facility] Work Phone: Immunizations Immunization Date Immunization Notes Care Provider Weston casiano 04-22-2023 influenza (HD-IIV4) vaccine, age 65+ yr, high dose, quadrivalent, PF (FLUZONE HIGH-DOSE) Immunization Brianna Work Phone: [facility] Work Phone: 04-28-2022 influenza, high-dose , quadrivalent vaccine (FLUZONE HIGH DOSE QUADRIVALENT) Ruth Perez PROTECTION MGR.[facility] Work Phone: [facility] Work Phone: 04-28-2022 influenza virus vaccine, unspecified formulation Andressa Sam PROTECTION MGR.[facility] Work Phone: [facility] 04-08-2021 influenza, high-dose , quadrivalent vaccine (FLUZONE HIGH DOSE QUADRIVALENT) Karma Alberto PROTECTION MGR.FLATBED PRESS OPERATOR Work Phone: [facility] 09-22-2020 COVID-19 vaccine, fu ll dose (MODERNA) Karma Alberto PROTECTION MGR.FLATBED PRESS OPERATOR Work Phone: [facility] 08-25-2020 COVID-19 vaccine, fu ll dose (MODERNA) Karma Alberto PROTECTION MGR.FLATBED PRESS OPERATOR Work Phone: [facility] 04-19-2020 influenza, high-dose , quadrivalent vaccine (FLUZONE HIGH DOSE QUADRIVALENT) Karma Alberto PROTECTION MGR.FLATBED PRESS OPERATOR Work Phone: [facility] 05-01-2019 influenza, high dose seasonal, preservative-free Karma Alberto PROTECTION MGR.FLATBED PRESS OPERATOR Work Phone: [facility] 05-01-2018 influenza, high dose seasonal, preservative-free Karma Alberto PROTECTION MGR.FLATBED PRESS OPERATOR Work Phone: [facility] 04-27-2017 influenza, high dose seasonal, preservative-free Karma Alberto PROTECTION MGR.FLATBED PRESS OPERATOR Work Phone: [facility] 07-08-2016 pneumococcal polysaccharide vaccine, 23 valent Karma Alberto PROTECTION MGR.FLATBED PRESS OPERATOR Work Phone: [facility] 05-21-2016 influenza, high dose seasonal, preservative-free Karma Alberto PROTECTION MGR.FLATBED PRESS OPERATOR Work Phone: [facility] Work Phone: 06-02-2015 influenza, high dose seasonal, preservative-free Karma Alberto PROTECTION MGR.FLATBED PRESS OPERATOR Work Phone: [facility] 03-26-2015 pneumococcal conjuga te vaccine, 13 valent Karma Alberto PROTECTION MGR.[facility] Work Phone: [facility] Work Phone: 07-01-2008 influenza virus vaccine, unspecified formulation Karma Alberto PROTECTION MGR.FLATBED PRESS OPERATOR Work Phone: [facility] 06-05-2007 influenza virus vaccine, unspecified formulation Karma Alberto PROTECTION MGR.FLATBED PRESS OPERATOR Work Phone: [facility] Work Phone: 10-05-2006 tetanus toxoid, reduced diphtheria toxoid, and acellular pertussis vaccine, adsorbed Karma Alberto PROTECTION MGR.[facility] Work Phone: [facility] Work Phone: 05-05-2005 influenza virus vaccine, whole virus Karma Alberto PROTECTION MGR.[facility] Work Phone: [facility] Work Phone: No information available. Tita Angulo [facility] Work Phone: Payers Date Payer Category Payer Medicare AETNA MEDICARE A ETNA MEDICARE PPO [id number] 2021-Present [phone] [address] [place] [address] PPO [id number] 2021 Medicare AETNA MEDICARE A ETNA MEDICARE PPO [id number] 2021-Present [phone] [address] [place] [address] PPO [id number] 2021 Medicare [id number] 1945 Unknown [id number] Unknown [id number] Social History Date Type Detail Facility Start: 08-08-2018 End: 08-08-2018 Assertion Unknown if ever smoked [facility] [place] [facility] Work Phone: Start: 02-22-2011 End: 04-15-2022 Tobacco smoking status NHIS Ex-smoker [facility] End: 07-18-1971 History of tobacco use Current smoker [facility] End: 07-18-1971 History of tobacco use Cigarette Smoker [facility] Start: 10-06-2021 End: 07-21-2022 Alcohol intake Current drinker of alcohol (finding) [facility] Start: 10-06-2021 End: 11-29-2022 Alcohol intake [facility] Work Phone: Start: 1945 Sex Assigned At Not on file [facility] Start: 09-26-2021 End: 04-20-2022 Exposure to SARS-CoV-2 (event) Not sure [facility] Start: 02-22-2011 End: 04-15-2022 Tobacco use and exposure Smokeless tobacco non-user [facility] Start: 11-29-2022 Alcohol Comment daily beer [facility] Start: 11-29-2022 End: 01-17-2023 Tobacco use panel [facility] Work Phone: Adult Depression Screening Assessment 0 [facility] Work Phone: Start: 03-29-2023 Alcohol Comment weekends beer [facility] Start: 05-18-2023 End: 06-22-2023 Alcohol intake Ex-drinker (finding) [facility] Start: 05-18-2023 Alcohol Comment occasional [facility] Medical Equipment Procedure Code Equipment Code Equipment Origin al Text Equipment Identifier Dates Assemb Tapr Ball Adj Nk - [id number] Start: 07-23-2010 Clinical Notes 10-09-2007 to 07-21-2023 Patient InstructionsSunny Walker MD - 06/22/2023 2:56 PM Keiko Gonzalez LPN - 06/22/2023 2:47 PM Cabrera Marinelli MD - 06/13/2023 1:11 PM ESTPatient InstructionsPatient Instructions Note Date & Type Note Facility 07-21-2023 Note HNO ID: [id number] Author: FEDERICO VIGIL MD Service: ? Author Type: Physician Type: Progress Notes Filed: 07/22/2023 16:47 Note Text: Chief Complaint Patient presents with: 6 Month Exam HPI Shelton Kay is a 77 year old male who presents here today for 6 month follow up. Depression screening; denies feeling depressed or hopeless. He does not have an Advanced Directive. No bowel, Gi, or urinary issues. Had EGD done due to having issues with dysphagia. Is taking Protonix 20 mg daily. A-fib: Follows with Cardio Dr. Walker. Is on Eliquis 5 mg BID. HTN: Taking Coreg 6.25 mg BID and Lisinopril 5 mg daily. No chest pains, dizziness, or SOB. Checking BP at home with readings WNL. Edema: taking Lasix 40 mg daily prn. Gout: Stable with Allopurinol 100 mg BID. Lipid/CAD: Taking Zocor 20 mg daily and Plavix 75 mg daily. He was in UC 08/12/22 for itching. He thought it was possibly a side effect of the RSV vaccine. He was given Zyrtec 10 mg daily x 7 days and given Kenalog cream. The itching not improved. He denies any rash. He follows with Rheum Dr. eSo. Is taking Prednisone prn and Plaquenil 200 mg 1 pill BID[address] He saw Dr. Pool, for neck pain and bone spurs. [facility]. Past medical history, appointments, medications, allergies reviewed. Previous Medical History PAST MEDICAL HISTORY Diagnosis Date Allergic rhinitis, cause unspecified Arthritis Atherosclerotic heart disease of [place] coronary artery without angina pectoris Atrial fibrillation (HCC) Avascular necrosis (HCC) Benign neoplasm of colon CAD (coronary artery disease) Cardiomyopathy (HCC) Carotid artery stenosis Chronic back pain Diverticulosis of colon (without mention of hemorrhage) Dyslipidemia Erectile dysfunction Essential hypertension, benign Fatigue GERD (gastroesophageal reflux disease) Gout, unspecified H/O carotid stenosis Hepatomegaly Internal hemorrhoids without mention of complication Mixed hyperlipidemia Osteoarthritis Other and unspecified hyperlipidemia Peripheral arterial disease (HCC) Prominent abdominal aortic pulsation S/P drug eluting coronary stent placement Snoring Status post catheter ablation of atrial fibrillation 12/21/2022 Patient underwent radiofrequency PVI for both atrial fibrillation as well as typical atrial flutter with Dr. Walker on 12/20/2022. Subclavian arterial stenosis (HCC) Unspecified atrial fibrillation (HCC) Previous Surgical History PAST SURGICAL HISTORY Procedure Laterality Date ARTHROPLASTY TOTAL SHOULDER 06/2011 Dr. Benitez. ARTHRP ACETBLR/PROX FEM PROSTC AGRFT/ALGRFT 04/2012 Dr. Wood> [facility]. ARTHRP KNE CONDYLEANDPLATU MEDIALANDLAT COMPARTMENTS Right COLONOSCOPY FLX DX W/COLLJ SPEC WHEN PFRMD 05/[address] Mejia COLONOSCOPY SCREENING 05/20/2023 COLONOSCOPY W/BIOPSY SINGLE/MULTIPLE 08/24/2006 EGD 12/01/2020 ESOPHAGOGASTRODUODENOSCOPY TRANSORAL DIAGNOSTIC 05/2023 EYE SURGERY HX JOINT REPLACEMENT HX LEFT HEART CATH,PERCUTANEOUS 10/06/2022 OPEN REPAIR OF ROTATOR CUFF ACUTE 10/03/2008 Rotator cuff repair-right PAST SURGICAL HISTORY OF right knee scope PAST SURGICAL HISTORY OF cataract both eyes PAST SURGICAL HISTORY OF N/A 12/20/2022 EPS with Ablation, [facility] [place] TONSILLECTOMY HX TONSILLECTOMY PRIMARY/SECONDARY Tonsillectomy and adnoids Family History FAMILY HISTORY Problem Relation Age of Onset Cancer Mother KIDNEY Coronary Artery Disease Mother Lipids Mother Stroke Mother Heart disease Mother Cancer Father LUNG other (fibromyalgia) Sister Prostate Cancer Brother Patient Allergies ALLERGIES Allergen Reactions Indocin [Indomethac* Diarrhea Mobic [Meloxicam] Diarrhea Current Medications Current Outpatient Medications on File Prior to Visit Medication Sig furosemide (LASIX) 40 mg tablet Take 40 mg by mouth as needed. allopurinol (ZYLOPRIM) 100 mg tablet take 1 tablet by mouth twice a day pantoprazole DR (PROTONIX) 20 mg tablet Take 1 tablet by mouth daily before breakfast. Take on empty stomach, 1/2 hr before meal. carvedilol (COREG) 6.25 mg tablet Take 1 tablet by mouth twice daily. predniSONE (DELTASONE) 10 mg tablet Take 1 tablet by mouth as needed. hydrOXYchloroQUINE (PLAQUENIL) 200 mg tablet Take 200 mg by mouth twice daily. simvastatin (ZOCOR) 20 mg tablet Take 1 tablet by mouth once daily. multivit with minerals/lutein (MULTIVITAMIN 50 PLUS ORAL) Take 1 tablet by mouth once daily. apixaban (ELIQUIS) 5 mg tab(s) Take 5 mg by mouth twice daily. clopidogrel (PLAVIX) 75 mg tablet Take 75 mg by mouth once daily. Melatonin 5 mg cap Take 5 mg by mouth daily at bedtime. sildenafil (VIAGRA) 100 mg tablet Take 1/2 to 1 tablet by mouth 1 hour prior to anticipated intercourse. No current facility-administered medications on file prior to visit. Social History Social History Tobacco Use Smoking stat (more content not included)... [facility] 07-12-2023 Note HNO ID: [id number] Author: Kinga Pepper APRN.FLATB[employer] PRESS OPERATOR Service: ? Author Type: Nurse Practitioner Type: Progress Notes Filed: 07/12/2023 8:41 AM Note Text: Subjective HPI Shelton Kay is a 77 year old male who presents with itching on arms and legs He got the RSV shot on 07/05 and itching started the . He has used itch cream and itch spray at home. These have not helped. He is not sure if he can take benadryl with his current medications. He has not had a fever. Review of Systems Constitutional: Negative for chills and fever. Respiratory: Negative. Cardiovascular: Negative. Musculoskeletal: Negative for myalgias. Skin: Positive for itching and rash. BP 120/62 Pulse 60 Temp 36.4 ?C (97.6 ?F) Resp 16 Wt 78 kg (172 lb) SpO2 97% BMI 24.33 kg/m? PAST MEDICAL HISTORY Diagnosis Date Allergic rhinitis, cause unspecified Arthritis Atherosclerotic heart disease of [place] coronary artery without angina pectoris Atrial fibrillation (HCC) Avascular necrosis (HCC) Benign neoplasm of colon CAD (coronary artery disease) Cardiomyopathy (HCC) Carotid artery stenosis Chronic back pain Diverticulosis of colon (without mention of hemorrhage) Dyslipidemia Erectile dysfunction Essential hypertension, benign Fatigue GERD (gastroesophageal reflux disease) Gout, unspecified H/O carotid stenosis Hepatomegaly Internal hemorrhoids without mention of complication Mixed hyperlipidemia Osteoarthritis Other and unspecified hyperlipidemia Peripheral arterial disease (HCC) Prominent abdominal aortic pulsation S/P drug eluting coronary stent placement Snoring Status post catheter ablation of atrial fibrillation 12/21/2022 Patient underwent radiofrequency PVI for both atrial fibrillation as well as typical atrial flutter with Dr. Walker on 12/20/2022. Subclavian arterial stenosis (HCC) Unspecified atrial fibrillation (HCC) PAST SURGICAL HISTORY Procedure Laterality Date ARTHROPLASTY TOTAL SHOULDER 06/2011 Dr. Benitez. ARTHRP ACETBLR/PROX FEM PROSTC AGRFT/ALGRFT 04/2012 Dr. Wood> [facility]. ARTHRP KNE CONDYLEANDPLATU MEDIALANDLAT COMPARTMENTS Right COLONOSCOPY FLX DX W/COLLJ SPEC WHEN PFRMD 05/[address] Mejia COLONOSCOPY SCREENING 05/20/2023 COLONOSCOPY W/BIOPSY SINGLE/MULTIPLE 08/24/2006 EGD 12/01/2020 ESOPHAGOGASTRODUODENOSCOPY TRANSORAL DIAGNOSTIC 05/2023 EYE SURGERY HX JOINT REPLACEMENT HX LEFT HEART CATH,PERCUTANEOUS 10/06/2022 OPEN REPAIR OF ROTATOR CUFF ACUTE 10/03/2008 Rotator cuff repair-right PAST SURGICAL HISTORY OF right knee scope PAST SURGICAL HISTORY OF cataract both eyes PAST SURGICAL HISTORY OF N/A 12/20/2022 EPS with Ablation, [facility] TONSILLECTOMY HX TONSILLECTOMY PRIMARY/SECONDARY Tonsillectomy and adnoids ALLERGIES Indocin [Indomethacin Sodium] and Mobic [Meloxicam] MEDICATIONS furosemide (LASIX) 40 mg tablet Take 40 mg by mouth as needed. allopurinol (ZYLOPRIM) 100 mg tablet take 1 tablet by mouth twice a day pantoprazole DR (PROTONIX) 20 mg tablet Take 1 tablet by mouth daily before breakfast. Take on empty stomach, 1/2 hr before meal. carvedilol (COREG) 6.25 mg tablet Take 1 tablet by mouth twice daily. predniSONE (DELTASONE) 10 mg tablet Take 1 tablet by mouth as needed. hydrOXYchloroQUINE (PLAQUENIL) 200 mg tablet Take 200 mg by mouth twice daily. simvastatin (ZOCOR) 20 mg tablet Take 1 tablet by mouth once daily. multivit with minerals/lutein (MULTIVITAMIN 50 PLUS ORAL) Take 1 tablet by mouth once daily. apixaban (ELIQUIS) 5 mg tab(s) Take 5 mg by mouth twice daily. Melatonin 5 mg cap Take 5 mg by mouth daily at bedtime. sildenafil (VIAGRA) 100 mg tablet Take 1/2 to 1 tablet by mouth 1 hour prior to anticipated intercourse. cetirizine (ZYRTEC) 10 mg tablet Take 1 tablet by mouth once daily for 7 days. triamcinolone (KENALOG) 0.025 % cream Apply 1 application to affected area two times a day. clopidogrel (PLAVIX) 75 mg tablet Take 75 mg by mouth once daily. (Patient not taking: Reported on 07/12/2023) FAMILY HISTORY Problem Relation Age of Onset Cancer Mother KIDNEY Coronary Artery Disease Mother Lipids Mother Stroke Mother Heart disease Mother Cancer Father LUNG other (fibromyalgia) Sister Prostate Cancer Brother Social History Tobacco Use Smoking status: Former Packs/day: 1.00 Years: 10.00 Additional pack years: 0.00 Total pack years: 10.00 Types: Cigarettes Quit date: 07/18/1971 Years since quittin.0 Smokeless tobacco: Never Vaping Use Vaping Use: Never used Substance Use Topics Alcohol use: Not Currently Comment: occasional Drug use: No Objective Physical Exam Vitals and nursing note reviewed. Constitutional: General: He is not in acute distress. Appearance: Normal appearance. He is not ill-appearing. Cardiovascular: Rate and Rhythm: Normal rate and regular rhythm. Heart sounds: Normal (more content not included)... [facility] 06-22-2023 Note HNO ID: [id number] Author: Sunny Walker MD Service: ? Author Type: Physician Type: Progress Notes Filed: 06/22/2023 4:17 PM Note Text: PRIMARY CARE PHYSICIAN: Federico Vigil [address] [place] [address] Patient Care Team: Federico Vigil MD as PCP - General (Family Medicine) CHIEF COMPLAINT: Paroxysmal Atrial fibrillation HISTORY OF PRESENT ILLNESS: Mr. Kay is a 77 year old male who presents today for a cardiovascular medicine follow-up visit. History copied from previous notes, edited as needed: Mr. Kay is a 77 year old male with PMH significant for hypertension, hyperlipidemia, GERD, CAD status post PCI to OM, PAD, chronic systolic heart failure (EF 40%), paroxysmal atrial fibrillation who presents today as a referral for management of atrial fibrillation. Patient was diagnosed with atrial fibrillation in July 2022 after he presented to his primary care with symptoms of fatigue and tiredness for few months. He was noted to be in atrial fibrillation on twelve-lead EKG and referred to cardiology. He underwent an echocardiogram that showed EF of 40% and a mildly dilated left atrium. He subsequently was scheduled for nuclear stress test that showed reversible moderate-sized anterior apical and septal defects suggestive of ischemia. She subsequently underwent a left heart catheterization which showed a 90% OM lesion and underwent PCI. He was placed on carvedilol and Eliquis for management of his atrial fibrillation. He remains in atrial fibrillation although rate controlled but still complains of easy fatigability and tiredness. He has cut down on his caffeine intake and is scheduled for a sleep study because of his history of snoring. Patient was referred to electrophysiology for management of atrial fibrillation. Patient wants to opt for ablation procedure. subsequently he underwent radiofrequency catheter ablation for both atrial fibrillation and typical atrial flutter with Dr. Walker 12/20/2022. He was discharged the next day on amiodarone due to frequent ectopy. Interval History: The patient reports following ablation, the first 5 days were little rough, but since then has been well. The beginning of March, he ran out of the amiodarone, the medication was stopped per Dr. Walker. He underwent 3-month post ablation testing prior to today's appointment which includes an echocardiogram, CT of the chest and 30-day event monitor was applied. He has been exercising 3 days per week at the wellness center in [place], under the supervision of an procurement officer. He checks his heart rhythm daily on the Kardia mobile, reports 2 episodes of atrial fibrillation which he believes only lasted minutes and then resolved, he did not have symptoms associated with these episodes. Interim History : He presents today for follow up. He is doing well with only brief episodes of AF (minutes) since his last visit as reported on the Kardia device. Some of these episodes are not AF but SR with ectopy, others could be AF but rates are similar as SR, lot of baseline wander that makes review difficult. He has otherwise been doing well, other than some issues with swallowing and underwent EGD and CTA head and neck. He was changed from metoprolol to carvedilol by his PCP due to issues of fatigue with metoprolol. He is on carvedilol 6.25 mg twice daily. Blood pressure with systolics in the 100-110's. Does report occasional episodes of lightheadedness especially with positional changes. He denies chest pain, shortness of breath, orthopnea, cough, edema, palpitations, PND, syncope. I have confirmed and edited as necessary, the PFSH and ROS obtained by others. PAST MEDICAL HISTORY Diagnosis Date Allergic rhinitis, cause unspecified Arthritis Atherosclerotic heart disease of [place] coronary artery without angina pectoris Atrial fibrillation (HCC) Avascular necrosis (HCC) Benign neoplasm of colon CAD (coronary artery disease) Cardiomyopathy (HCC) Carotid artery stenosis Chronic back pain Diverticulosis of colon (without mention of hemorrhage) Dyslipidemia Erectile dysfunction Essential hypertension, benign Fatigue GERD (gastroesophageal reflux disease) Gout, unspecified H/O carotid stenosis Hepatomegaly Internal hemorrhoids without mention of complication Mixed hyperlipidemia Osteoarthritis Other and unspecified hyperlipidemia Peripheral arterial disease (HCC) Prominent abdominal aortic pulsation S/P drug eluting coronary stent placement Snoring Status post catheter ablation of atrial fibrillation 12/21/2022 Patient underwent radiofrequency PVI for both atrial fibrillation as well as typical atrial flutter with Dr. Walker on 12/20/2022. Subclavian arterial stenosis (HCC) Unspecified atrial fibrillation (HCC) PAST SURGICAL HISTORY Procedure Laterality Date ARTHROPLASTY T (more content not included)... [facility] 06-22-2023 Instructions Sunny Walker MD - 06/22/2023 3:21 PM EST Atrial Fibrillation What is atrial fibrillation? Atrial fibrillation (also called A-fib) is a fast or irregular heartbeat that starts in the upper chambers of the heart. The abnormal heartbeat affects the ability of the heart to pump blood to the rest of the body. What is the cause? An electrical signal in your heart starts each heartbeat, causing the heart muscle to squeeze (contract). Normally, this signal starts in the upper right chamber of the heart (the right atrium) at a place called the sinus node. The signal then follows normal pathways to the upper left atrium and to the lower chambers of the heart (the ventricles). When you have atrial fibrillation, electrical signals don t start in the normal place in the right atrium and don t travel normally. This can cause the upper chambers of the heart (atria) to beat very fast and not in a normal pattern. Common causes of heart rhythm problems are conditions that damage the heart, like coronary artery disease, heart attack, or heart failure. Problems with the heart valves are another common cause. The heart has 4 valves that open and close with each heartbeat to help blood flow in the right direction through the heart. Other causes of atrial fibrillation include: Health problems, such as a stroke, lung disease, diabetes, overactive thyroid gland, or high blood pressure Abuse of alcohol or drugs, such as cocaine Sometimes no cause can be found. What are the symptoms? Some people don t have any symptoms. When atrial fibrillation does cause symptoms, the most common ones are: Feeling like your heart is beating too fast or too hard or skipping beats or fluttering Feeling tired or weak all the time Symptoms that are more serious include: Chest pain Trouble breathing Lightheadedness or dizziness Confusion How is it diagnosed? Your healthcare provider will ask about your symptoms and medical history and examine you. Tests may include: An ECG (also called an EKG), which measures and records your heartbeat. You may have an ECG while you are resting or while you exercise on a treadmill. You may also be asked to wear a small portable ECG monitor for a few days or sometimes a couple weeks. Blood tests An echocardiogram, which uses sound waves (ultrasound) to show the structures of the heart, like the valves How is it treated? The goal of treatment is to help the heart keep a normal rhythm. Your treatment depends on the cause of the atrial fibrillation, how often you have symptoms, and the severity of your symptoms. If you have no symptoms, or your symptoms are fairly mild, you may not need treatment. For some people atrial fibrillation lasts just a short time and the heart goes back to a normal rhythm on its own. If you keep having spells of atrial fibrillation, treatment may help keep you from having so many spells. If a health problem like a leaky heart valve is causing the atrial fibrillation, treating the health problem may also treat the fast or irregular heartbeat. Other possible treatments are: Medicine: Your provider may prescribe medicine to slow or restore a normal heart rate and rhythm. You may also need medicine to prevent blood clots because when the heart beats irregularly, some of the blood can stay in the upper chambers too long. This makes it easier for blood clots to form, increasing your risk of having a stroke or heart attack. Electrical cardioversion: First, you will be given medicine called anesthesia to keep you from feeling pain during the procedure. Then your chest will be given an electrical shock. The electrical shock should make your heart start beating normally again. You may need medicine to keep your heart rhythm normal after this procedure. Ablation: Ablation is a procedure that uses a small tube called a catheter to deliver energy to the inside of the heart. The energy (usually radio waves) scars small areas of heart tissue. The scars block abnormal electrical pathways and help you have a normal heart rhythm. With some types of ablation treatment, you will also need a pacemaker. A pacemaker is an electronic device put under the skin of your chest to help control the heartbeat. How can I take care of myself? Take your medicines as prescribed. Keep your appointments for follow-up blood tests. Make sure your healthcare provider knows about changes in your diet or medical condition. Your provider also needs to know about all prescription and nonprescription medicines, herbs, or supplements that you are taking. Some medicines may interact with your heart medicine or increase your risk for atrial fibrillation. If you want to drink alcohol, ask your provider how much is safe for you to drink. Follow your healthcare provider's instructions. Ask your provider: ?How and when you will hear your test results ?How long it will take to recover ?What activities you should avoid and when you can return to your normal activities ?How to take care of yourself at home ?What symptoms or problems you should watch for and what to do if you have them Make sure you know when you should come back for a checkup. How can I help prevent atrial fibrillation? The best prevention is to have a heart-healthy lifestyle. Keep a healthy weight. Eat a healthy diet that is low in sodium and saturated and trans fat. Stay fit with the right kind of exercise for you. Decrease stress. Don t smoke. Limit your use of alcohol. If you have heart disease or high blood pressure, follow your healthcare provider's instructions for treatment. Developed by [employer]. Published by [employer]. Copyright 2014 [employer] and/or one of its subsidiaries. All rights reserved. documented in this encounter [facility] 06-22-2023 History of Present illness Narrative PRIMARY CARE PHYSICIAN: Federico Vigil [address] [place] [address] Patient Care Team: Federico Vigil MD as PCP - General (Family Medicine) CHIEF COMPLAINT: Paroxysmal Atrial fibrillation HISTORY OF PRESENT ILLNESS: Mr. Kay is a 77 year old male who presents today for a cardiovascular medicine follow-up visit. History copied from previous notes, edited as needed: Mr. Kay is a 77 year old male with PMH significant for hypertension, hyperlipidemia, GERD, CAD status post PCI to OM, PAD, chronic systolic heart failure (EF 40%), paroxysmal atrial fibrillation who presents today as a referral for management of atrial fibrillation. Patient was diagnosed with atrial fibrillation in July 2022 after he presented to his primary care with symptoms of fatigue and tiredness for few months. He was noted to be in atrial fibrillation on twelve-lead EKG and referred to cardiology. He underwent an echocardiogram that showed EF of 40% and a mildly dilated left atrium. He subsequently was scheduled for nuclear stress test that showed reversible moderate-sized anterior apical and septal defects suggestive of ischemia. She subsequently underwent a left heart catheterization which showed a 90% OM lesion and underwent PCI. He was placed on carvedilol and Eliquis for management of his atrial fibrillation. He remains in atrial fibrillation although rate controlled but still complains of easy fatigability and tiredness. He has cut down on his caffeine intake and is scheduled for a sleep study because of his history of snoring. Patient was referred to electrophysiology for management of atrial fibrillation. Patient wants to opt for ablation procedure. subsequently he underwent radiofrequency catheter ablation for both atrial fibrillation and typical atrial flutter with Dr. Walker 12/20/2022. He was discharged the next day on amiodarone due to frequent ectopy. Interval History: The patient reports following ablation, the first 5 days were little rough, but since then has been well. The beginning of March, he ran out of the amiodarone, the medication was stopped per Dr. Walker. He underwent 3-month post ablation testing prior to today's appointment which includes an echocardiogram, CT of the chest and 30-day event monitor was applied. He has been exercising 3 days per week at the wellness center in [place], under the supervision of an procurement officer. He checks his heart rhythm daily on the [employer] mobile, reports 2 episodes of atrial fibrillation which he believes only lasted minutes and then resolved, he did not have symptoms associated with these episodes. Interim History : He presents today for follow up. He is doing well with only brief episodes of AF (minutes) since his last visit as reported on the [employer] device. Some of these episodes are not AF but SR with ectopy, others could be AF but rates are similar as SR, lot of baseline wander that makes review difficult. He has otherwise been doing well, other than some issues with swallowing and underwent EGD and CTA head and neck. He was changed from metoprolol to carvedilol by his PCP due to issues of fatigue with metoprolol. He is on carvedilol 6.25 mg twice daily. Blood pressure with systolics in the 100-110's. Does report occasional episodes of lightheadedness especially with positional changes. He denies chest pain, shortness of breath, orthopnea, cough, edema, palpitations, PND, syncope. I have confirmed and edited as necessary, the PFSH and ROS obtained by others. PAST MEDICAL HISTORY Diagnosis Date Allergic rhinitis, cause unspecified Arthritis Atherosclerotic heart disease of [place] coronary artery without angina pectoris Atrial fibrillation (HCC) Avascular necrosis (HCC) Benign neoplasm of colon CAD (coronary artery disease) Cardiomyopathy (HCC) Carotid artery stenosis Chronic back pain Diverticulosis of colon (without mention of hemorrhage) Dyslipidemia Erectile dysfunction Essential hypertension, benign Fatigue GERD (gastroesophageal reflux disease) Gout, unspecified H/O carotid stenosis Hepatomegaly Internal hemorrhoids without mention of complication Mixed hyperlipidemia Osteoarthritis Other and unspecified hyperlipidemia Peripheral arterial disease (HCC) Prominent abdominal aortic pulsation S/P drug eluting coronary stent placement Snoring Status post catheter ablation of atrial fibrillation 12/21/2022 Patient underwent radiofrequency PVI for both atrial fibrillation as well as typical atrial flutter with Dr. Walker on 12/20/2022. Subclavian arterial stenosis (HCC) Unspecified atrial fibrillation (HCC) PAST SURGICAL HISTORY Procedure Laterality Date ARTHROPLASTY TOTAL SHOULDER 06/2011 Dr. Bneitez. ARTHRP ACETBLR/PROX FEM PROSTC AGRFT/ALGRFT 04/2012 Dr. Wood> [facility] ARTHRP KNE CONDYLE&PLATU MEDIAL&LAT COMPARTMENTS Right COLONOSCOPY FLX DX W/COLLJ SPEC WHEN PFRMD 05/[address] Mejia COLONOSCOPY SCREENING 05/20/2023 COLONOSCOPY W/BIOPSY SINGLE/MULTIPLE 08/24/2006 EGD 12/01/2020 ESOPHAGOGASTRODUODENOSCOPY TRANSORAL DIAGNOSTIC 05/2023 EYE SURGERY HX JOINT REPLACEMENT HX LEFT HEART CATH,PERCUTANEOUS 10/06/2022 OPEN REPAIR OF ROTATOR CUFF ACUTE 10/03/2008 Rotator cuff repair-right PAST SURGICAL HISTORY OF right knee scope PAST SURGICAL HISTORY OF cataract both eyes PAST SURGICAL HISTORY OF N/A 12/20/2022 EPS with Ablation, [facility] TONSILLECTOMY HX TONSILLECTOMY PRIMARY/SECONDARY <AGE 12 Tonsillectomy and adnoids SOCIAL HISTORY Social History Tobacco Use Smoking status: Former Packs/day: 1.00 Years: 10.00 Additional pack years: 0.00 Total pack years: 10.00 Types: Cigarettes Quit date: 07/18/1971 Years since quittin.9 Smokeless tobacco: Never Vaping Use Vaping Use: Never used Substance Use Topics Alcohol use: Not Currently Comment: occasional Drug use: No FAMILY HISTORY Problem Relation Age of Onset Cancer Mother KIDNEY Coronary Artery Disease Mother Lipids Mother Stroke Mother Heart disease Mother Cancer Father LUNG other (fibromyalgia) Sister Prostate Cancer Brother ALLERGIES: ALLERGIES Allergen Reactions Indocin [Indomethac* Diarrhea Mobic [Meloxicam] Diarrhea MEDICATIONS: furosemide (LASIX) 40 mg tablet Take 40 mg by mouth as needed. allopurinol (ZYLOPRIM) 100 mg tablet take 1 tablet by mouth twice a day pantoprazole DR (PROTONIX) 20 mg tablet Take 1 tablet by mouth daily before breakfast. Take on empty stomach, 1/2 hr before meal. carvedilol (COREG) 6.25 mg tablet Take 1 tablet by mouth twice daily. predniSONE (DELTASONE) 10 mg tablet Take 1 tablet by mouth as needed. hydrOXYchloroQUINE (PLAQUENIL) 200 mg tablet Take 200 mg by mouth twice daily. simvastatin (ZOCOR) 20 mg tablet Take 1 tablet by mouth once daily. multivit with minerals/lutein (MULTIVITAMIN 50 PLUS ORAL) Take 1 tablet by mouth once daily. apixaban (ELIQUIS) 5 mg tab(s) Take 5 mg by mouth twice daily. clopidogrel (PLAVIX) 75 mg tablet Take 75 mg by mouth once daily. Melatonin 5 mg cap Take 5 mg by mouth daily at bedtime. sildenafil (VIAGRA) 100 mg tablet Take 1/2 to 1 tablet by mouth 1 hour prior to anticipated intercourse. PHYSICAL EXAMINATION: BP 108/66 Pulse 72 Ht 5' 10.5 (1.79m) Wt 167 lb (75.8kg) SpO2 98% BMI 23.62 kg/(m^2). General: Well appearing, in no acute distress. Neck: No jugular venous distention. Lungs: Clear to auscultation bilaterally, no wheezing or rhonchi. Heart: Regular rhythm, S1, S2 normal. Abdomen: Soft, nontender, bowel sounds normal, no palpable organomegaly, no bruits. Extremities: No peripheral edema. Neuro: Oriented to person, place and time, alert, cooperative, gait coordinated. CARDIOVASCULAR MEDICINE TESTING: Electrocardiogram: SR with PAC's, RBBB/LAFB. HR 66 bpm. TTE: 03/2023 - The left ventricle is normal in size. Left ventricular systolic function is mildly decreased. EF = 50 5% (2D biplane) Indeterminate left ventricular diastolic dysfunction due to >2+ MR. - The right ventricle is normal in size. Right ventricular systolic function is normal. Tricuspid annular displacement is 2.4 cm. - The left atrial cavity is moderately dilated. Arlyn 43 ml/m . - There is moderate (2+) mitral valve regurgitation. Regurgitant orifice area (PISA) is 0.18 cm . - Exam was compared with the prior echocardiographic exam performed on 08/31/2022 ([facility]). Mild improvement in the LV systolic function, patient in sinus rhythm on todays exam. 30 day event monitor: 03/29/23 to 04/29/23 Sinus rhythm, no AF. CTA:03/29/23 1. Normal pulmonary venous anatomy without pulmonary vein stenosis. 2. No left atrial or left atrial appendage thrombus. 3. Coronary artery disease with severe coronary artery calcifications. I have personally reviewed the Electrocardiogram. I spent 20 minutes in the visit, with more than 50% of the total [id number] time of the visit in counseling / coordination of care. ASSESSMENT/PLAN: 1. Paroxysmal atrial fibrillation (HCC) - ICD9: 427.31, ICD10: I48.0 (primary diagnosis) - ECG B/O W INTERP (MED OFFICE) 2. Cardiomyopathy, unspecified type (HCC) - ICD9: 425.4, ICD10: I42.9 3. Coronary artery disease involving [place] coronary artery of [place] heart with angina pectoris (HCC) - ICD9: 414.01, 413.9, ICD10: I25.119 4. Mixed hyperlipidemia - ICD9: 272.2, ICD10: E78.2 5. BENIGN HYPERTENSION - ICD9: 401.1, ICD10: I10 6. Status post ablation of atrial flutter - ICD9: V45.89, ICD10: Z98.890, Z86.79 IMPRESSION: Mr. Kay is a 77 year old male with PMH significant for hypertension, hyperlipidemia, GERD, CAD status post PCI to OM, PAD, chronic systolic heart failure (EF 40%), paroxysmal atrial fibrillation who presents today for follow up. Patient was formally diagnosed in July 2022 with symptomatic atrial fibrillation and underwent PVI, PW isolation and CTI ablation in 12/2022. He was previously placed on amiodarone for frequent ectopy post ablation and now remains in sustained sinus rhythm off amiodarone. He reports doing well since his ablation. 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 Post testing reviewed and shows improvement in EF to 50%, no pulmonary vein stenosis on CT and 30-day event monitor was negative for AF. CHADS2-Vasc Score Breakdown 4 Total Score 2 Age >= 75 years old 1 History of hypertension 1 History of vascular disease PLAN AND RECOMMENDATIONS: -Patient will continue on Coreg 6.25 mg twice daily. Up titration is limited by his blood pressure. If continues to have frequent ectopy, I would like him to be switched to metoprolol XL, which will not limit up titration as much as carvedilol. This can be assessed either during my follow-up visit or repeat visit with his PCP. -Continue Eliquis for [id number] score of 5, CHF/age/hypertension/vascular disease. No bleeding complications on Eliquis. -Continue lifestyle modifications including maintaining a healthy weight, regular exercise and limiting use of alcohol and/or caffeine. Return in about 6 months (around 12/22/2023) for Afib follow up. Sunny Walker MD documented in this encounter [facility] 06-22-2023 Nurse Note Patient denies any cardiac complaints or symptoms. Keiko Santos LPN documented in this encounter [facility] 06-13-2023 Note HNO ID: [id number] Author: Cabrera Mejia MD Service: ? Author Type: Physician Type: Progress Notes Filed: 06/13/2023 1:14 PM Note Text: Subjective: Patient is status post an EGD completed at [facility] on 05/20/2023. This was done secondary to dysphagia. Biopsy was results of the duodenum were normal the stomach was normal as well distal esophageal and mid esophageal showed squamous epithelium with glycogenic acanthosis. Objective: Blood pressure 112/58, pulse 68, temperature (!) 35.8 ?C (96.5 ?F), height 179.1 cm (5' 10.5 ), weight 78.5 kg (173 lb), SpO2 100 %. Abdomen is soft and nontender Assessment:Other dysphagia (primary encounter diagnosis) Pain with swallowing Plan: Told the patient that probably the neck step. But have to be some esophageal manometry possibly pH probe. She would like to see one of the brick layer in time and we will hopefully get this set up for her [facility] 06-13-2023 History of Present illness Narrative Subjective: Patient is status post an EGD completed at [place] on 05/20/2023. This was done secondary to dysphagia. Biopsy was results of the duodenum were normal the stomach was normal as well distal esophageal and mid esophageal showed squamous epithelium with glycogenic acanthosis. Objective: Blood pressure 112/58, pulse 68, temperature (!) 35.8 C (96.5 F), height 179.1 cm (5' 10.5 ), weight 78.5 kg (173 lb), SpO2 100 %. Abdomen is soft and nontender Assessment:Other dysphagia (primary encounter diagnosis) Pain with swallowing Plan: Told the patient that probably the neck step. But have to be some esophageal manometry possibly pH probe. She would like to see one of the brick layer in time and we will hopefully get this set up for her documented in this encounter [facility] 06-06-2023 Miscellaneous Notes Faxed colonoscopy and EGD report and pathology to Dr Jay's office per patient request Tiffany Lewis LPN Patients calling in, she states that they were told to follow up with One of 2 physicians, one is not accepting new patients. The other, Dr. Jay, is requesting that patient's colonoscopy results get faxed to their office. They plan to follow up with Dr. Jay. Please fax results to their office. documented in this encounter [facility] 05-26-2023 Miscellaneous Notes Patient notified of results, verbalizes understanding of instructions. Valarie Diaz LPN Can you please call the patient and let him know that I reviewed his CT results. IMPRESSION: 1. No large vessel occlusion or high-grade arterial stenosis intracranially. 2. Marked atherosclerotic calcification of the bilateral common carotid arteries with severe stenosis of the mid right common carotid artery. 3. At least 50% stenosis of the proximal right ICA and 30% stenosis of the proximal left ICA by NASCET criteria. At this time I do not see any causes for his current symptoms. I know he has had the carotid arteries evaluated in the past with ultrasound. Most important is controlling cholesterol to prevent worsening stenosis. Ruth Perez APRN.FLATBED PRESS OPERATOR documented in this encounter [facility] 05-25-2023 Miscellaneous Notes Called patient and advised him of diet below. Patient was satisfied with that. Patient has an appointment on 06/[address] Mejia. Pascale Walker LPN Patient's , Azucena, called regarding how patient should proceed. Patient was suppose to have colonoscopy done but was unsuccessful, had barium enema instead. Patient was diagnosed with tortuous colon. Patient is concerned about what he should eat, is there a certain diet he should stick too? Is there a fiber supplement he should be taking, if so what? Patient has a follow up with Collin Morgan on 06/03 but did not want to wait that long to find these things out due to having anxiety over this. Informed Azucena that Dr. Mejia and Claudette Morgan are out of office until 05/27 but I will reach out to all providers for any recommendations to ease patients concern. Please review and advise. Pascale Walker LPN documented in this encounter [facility] 05-25-2023 Note HNO ID: [id number] Author: Andressa Aldnaa RT(R) Service: ? Author Type: Mix Mill Tender Type: Progress Notes Filed: 05/25/2023 4:17 PM Note Text: Radiology Service Progress Note DATE OF SERVICE: May 25, 2023 TIME: 4:16 PM PATIENT IDENTITY VERIFICATION COMPLETED USING TWO (2) STANDARD IDENTIFIERS: Name and Date of confirmed by patient verbally. FALL SCREENING: Has the patient had 2 falls in the last year or 1 fall with injury or currently using an Ambulatory Assistive Device (Walker, Cane, Wheelchair, Crut IENT GENDER DATA: Male PATIENT RELEVANT IMPLANT DATA REVIEWED: Yes ALLERGIES: Reviewed and unchanged CONTRAST ALLERGY: NO. EXAM: CT -CONTRAST INDUCED NEPHROPATHY RISK FACTORS: Patient age > 60 years CREATININE: Creatinine Date Value Ref Range Status 05/23/2023 1.36 (H) 0.73 - 1.22 mg/dL Final 12/21/2022 1.10 0.73 - 1.22 mg/dL Final 12/20/2022 0.99 0.73 - 1.22 mg/dL Final Estimated Glomerular Filtration Rate Date Value Ref Range Status 05/23/2023 54 (L) >=60 mL/min/1.73m? Final Comment: Estimated Glomerular Filtration Rate (eGFR) is calculated using the 2020 CKD-EPI creatinine equation. This equation utilizes serum creatinine, sex, and age as parameters. The creatinine assay has traceable calibration to isotope dilution-mass spectrometry. Refer to KDIGO guidelines for clinical interpretation. In patients with unstable renal function, e.g. those with acute kidney injury, the eGFR may not accurately reflect actual GFR. eGFR- Date Value Ref Range Status 04/09/2021 >60 Final P.O.C.T. RESULTS: POC done: Yes, See Lab Tab May 25, 2023 TREATMENT: N/A PERIPHERAL IV DATA: Ambulatory: A peripheral IV was started in the Left antecubital site with a Angio cath: 18 gauge. RADIOLOGY DEPARTMENT: CT; Exam(s) Completed: Brain , CTA Brain , and CTA Neck SIGNATURE: RT Mariposa(R) PATIENT NAME: Shelton Kay DATE: May 25, 2023 TIME: 4:16 PM [facility] 05-25-2023 History of Present illness Narrative Radiology Service Progress Note DATE OF SERVICE: May 25, 2023 TIME: 4:16 PM PATIENT IDENTITY VERIFICATION COMPLETED USING TWO (2) STANDARD IDENTIFIERS: Name and Date of confirmed by patient verbally. FALL SCREENING: Has the patient had 2 falls in the last year or 1 fall with injury or currently using an Ambulatory Assistive Device (Walker, Cane, Wheelchair, Crut IENT GENDER DATA: Male PATIENT RELEVANT IMPLANT DATA REVIEWED: Yes ALLERGIES: Reviewed and unchanged CONTRAST ALLERGY: NO. EXAM: CT -CONTRAST INDUCED NEPHROPATHY RISK FACTORS: Patient age > 60 years CREATININE: Creatinine Date Value Ref Range Status 05/23/2023 1.36 (H) 0.73 - 1.22 mg/dL Final 12/21/2022 1.10 0.73 - 1.22 mg/dL Final 12/20/2022 0.99 0.73 - 1.22 mg/dL Final Estimated Glomerular Filtration Rate Date Value Ref Range Status 05/23/2023 54 (L) >=60 mL/min/1.73m Final Comment: Estimated Glomerular Filtration Rate (eGFR) is calculated using the 2020 CKD-EPI creatinine equation. This equation utilizes serum creatinine, sex, and age as parameters. The creatinine assay has traceable calibration to isotope dilution-mass spectrometry. Refer to KDIGO guidelines for clinical interpretation. In patients with unstable renal function, e.g. those with acute kidney injury, the eGFR may not accurately reflect actual GFR. eGFR- Date Value Ref Range Status 04/09/2021 >60 Final P.O.C.T. RESULTS: POC done: Yes, See Lab Tab May 25, 2023 TREATMENT: N/A PERIPHERAL IV DATA: Ambulatory: A peripheral IV was started in the Left antecubital site with a Angio cath: 18 gauge. RADIOLOGY DEPARTMENT: CT; Exam(s) Completed: Brain , CTA Brain , and CTA Neck SIGNATURE: RT Mariposa(R) PATIENT NAME: Shelton Kay DATE: May 25, 2023 TIME: 4:16 PM documented in this encounter [facility] 05-24-2023 Miscellaneous Notes OK to refill as ordered Federico Vigil MD Patient has been identified by name and date of : Yes, Provider Dr. Vigil Date 05/24/23 Time 7:54 am Pharmacy phones for refill(s): Requested Prescriptions Pending Prescriptions Disp Refills allopurinol (ZYLOPRIM) 100 mg tablet [Pharmacy Med Name: ALLOPURINOL 100 MG TABLET] 180 tablet 1 Sig: take 1 tablet by mouth twice a day Date of last office visit in primary care: 05/09/2023 Date of next office visit in primary care: 07/21/2023 Last 2 Encounter Wt Readings: Date: Wt: 05/20/2023 78.5 kg (173 lb) 05/18/2023 78.5 kg (173 lb) Previous labs/tests for medication: Not applicable Thank you. Elif Godoy LPN. documented in this encounter [facility] 05-23-2023 Miscellaneous Notes The following approved medication requests have been transmitted electronically. Requested Prescriptions Signed Prescriptions Disp Refills pantoprazole DR (PROTONIX) 20 mg tablet 90 tablet 3 Sig: Take 1 tablet by mouth daily before breakfast. Take on empty stomach, 1/2 hr before meal. Ruth Perez APRN.FLATBED PRESS OPERATOR Patient has been identified by name and date of : Yes Requested Prescriptions Pending Prescriptions Disp Refills pantoprazole DR (PROTONIX) 20 mg tablet 90 tablet 1 Sig: Take 1 tablet by mouth daily before breakfast. Take on empty stomach, 1/2 hr before meal. RX INSTRUCTIONS: Patient aware RX will be sent to pharmacy. No need to notify patient. Elizabeth Brennan LPN documented in this encounter [facility] 05-20-2023 Note HNO ID: [id number] Author: Luma Armstrong RN Service: ? Author Type: Registered Nurse Type: Nursing Progress Note Filed: 05/20/2023 3:43 PM Note Text: Pt to xray for ferdinand hancock. [facility] 05-20-2023 Note HNO ID: [id number] Author: Lexis Junior RT(R) Service: Radiology Author Type: Technologist Type: Progress Notes Filed: 05/20/2023 4:31 PM Note Text: Radiology Service Progress Note PATIENT NAME: Shelton Kay DATE OF SERVICE: May 20, 2023 TIME: 4:31 PM PATIENT IDENTITY VERIFICATION COMPLETED USING TWO (2) IDENTIFIERS: Name and Date of confirmed by patient verbally and Name and Date of confirmed by identification band. FALL SCREENING: Has the patient had 2 falls in the last year or 1 fall with injury or currently using an Ambulatory Assistive Device (Walker, Cane, Wheelchair, Crutches, etc.)? No PATIENT GENDER DATA: Male PATIENT RELEVANT IMPLANT DATA REVIEWED: Not Applicable RADIOLOGY DEPARTMENT: General X-ray: Exam(s) Completed: GI/ Procedure(s): Barium enema with barium contrast PERIPHERAL IV DATA: Not applicable SIGNED BY: RT Lamont(R) May 20, 2023 4:31 PM [facility] 05-10-2023 Miscellaneous Notes Contacted patient for pre-op GI phone call via either phone and or [employer]. Patient understands prep instructions, sent either Mychart and/or Mail. Understands where to report on the day of procedure. All questions answered and or sent to providers office for clarification. Patient understands MyChart arrival time could change and wait for their arrival time call from the facility the day before procedure.Patient understands must have a piledriver carpenter and or responsible republican present. Patient was given direct phone number to call ) if patient has any further questions or given the option to respond to [employer] message If one was sent (please see below for [employer] message). If you have any questions please contact the assembly manager at [phone] or respond to this [employer] message. . Thank you, Rick documented in this encounter [facility] 05-09-2023 Note HNO ID: [id number] Author: Ruth Perez APRN.FLATBED PRESS OPERATOR Service: ? Author Type: Nurse Practitioner Type: Progress Notes Filed: 05/09/2023 2:58 PM Note Text: This is a 77 year old male who presents today with: Patient presents with: Acute Visit: continued dizziness, neck ear pain, tinnitis HISTORY OF PRESENT ILLNESS: Shelton Kay is a 77 year old male. Patient presents with: Acute Visit: continued dizziness, neck ear pain, tinnitis Here in the office for continued ear pain and tinnitus. On going dizziness, new onset afib earlier in the year. Following with cardiology ( [facility]), refers following up soon. Getting lightheaded with position changes or moves too quickly. Checking BP at home, 110/40-140/60's. Dizziness will improve with rest. Tinnitus bilaterally that is constant. Refers that he will get vision changes in the right eye, pain that radiates down into the neck. No LOC. Concerned he may need a CT scan. 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 Was having neck pain and difficulty swallowing, US neck soft tissue was normal. Will be having upper scope completed soon. PAST MEDICAL HISTORY: PAST MEDICAL HISTORY Diagnosis Date Allergic rhinitis, cause unspecified Arthritis Atherosclerotic heart disease of [place] coronary artery without angina pectoris Atrial fibrillation (HCC) Avascular necrosis (HCC) Benign neoplasm of colon CAD (coronary artery disease) Cardiomyopathy (HCC) Carotid artery stenosis Chronic back pain Diverticulosis of colon (without mention of hemorrhage) Dyslipidemia Erectile dysfunction Essential hypertension, benign Fatigue GERD (gastroesophageal reflux disease) Gout, unspecified H/O carotid stenosis Hepatomegaly Internal hemorrhoids without mention of complication Mixed hyperlipidemia Osteoarthritis Other and unspecified hyperlipidemia Peripheral arterial disease (HCC) Prominent abdominal aortic pulsation S/P drug eluting coronary stent placement Snoring Status post catheter ablation of atrial fibrillation 12/21/2022 Patient underwent radiofrequency PVI for both atrial fibrillation as well as typical atrial flutter with Dr. Walker on 12/20/2022. Subclavian arterial stenosis (HCC) Unspecified atrial fibrillation (HCC) PAST SURGICAL HISTORY Procedure Laterality Date ARTHROPLASTY TOTAL SHOULDER 06/2011 Dr. Benitez. ARTHRP ACETBLR/PROX FEM PROSTC AGRFT/ALGRFT 04/2012 Dr. Wood> [facility]. ARTHRP KNE CONDYLEANDPLATU MEDIALANDLAT COMPARTMENTS Right COLONOSCOPY W/BIOPSY SINGLE/MULTIPLE 08/24/2006 EGD 12/01/2020 EYE SURGERY HX JOINT REPLACEMENT HX LEFT HEART CATH,PERCUTANEOUS 10/06/2022 OPEN REPAIR OF ROTATOR CUFF ACUTE 10/03/2008 Rotator cuff repair-right PAST SURGICAL HISTORY OF right knee scope PAST SURGICAL HISTORY OF cataract both eyes PAST SURGICAL HISTORY OF N/A 12/20/2022 EPS with Ablation, [place] [facility] TONSILLECTOMY HX TONSILLECTOMY PRIMARY/SECONDARY Tonsillectomy and adnoids ALLERGIES Indocin [Indomethacin Sodium] and Mobic [Meloxicam] MEDICATIONS Current Outpatient Medications Medication Sig ferrous sulfate 325 mg (65 mg iron) tablet Take 1 tablet by mouth once daily. carvedilol (COREG) 6.25 mg tablet Take 1 tablet by mouth twice daily. lisinopril (ZESTRIL) 5 mg tablet Take 1 tablet by mouth once daily. lisinopril 2.5 mg tablet Take 5 mg by mouth once daily. (Patient not taking: Reported on 03/29/2023) predniSONE (DELTASONE) 10 mg tablet Take 1 tablet by mouth as needed. hydrOXYchloroQUINE (PLAQUENIL) 200 mg tablet Take 200 mg by mouth twice daily. simvastatin (ZOCOR) 20 mg tablet Take 1 tablet by mouth once daily. multivit with minerals/lutein (MULTIVITAMIN 50 PLUS ORAL) Take 1 tablet by mouth once daily. carvedilol (COREG) 3.125 mg tablet Take 6.25 mg by mouth twice daily. (Patient not taking: Reported on 03/29/2023) allopurinol (ZYLOPRIM) 100 mg tablet TAKE 1 TABLET BY MOUTH TWICE A DAY apixaban (ELIQUIS) 5 mg tab(s) Take 5 mg by mouth twice daily. clopidogrel (PLAVIX) 75 mg tablet Take 75 mg by mouth once daily. Melatonin 5 mg cap Take 5 mg by mouth daily at bedtime. furosemide (LASIX) 40 mg tablet Take 1 tablet by mouth once daily. sildenafil (VIAGRA) 100 mg tablet Take 1/2 to 1 tablet by mouth 1 hour prior to anticipated intercourse. No current facility-administered medications for this visit. FAMILY HISTORY Problem Relation Age of Onset Cancer Mother KIDNEY Coronary Artery Disease Mother Lipids Mother Stroke Mother Heart disease Mother Cancer Father LUNG other (fibromyalgia) Sister Prostate Cancer Brother Social History Tobacco Use Smoking status: Former Packs/day: 1.00 Years: 10.00 Additional pack years: 0.00 Total pack years: 10.00 Types: Cigarettes Quit date: 07/18/1971 Years since quittin.8 Smokeless tobacco: Never Vaping Use Vaping Use: Never used Substance Use Topics Alcoho (more content not included)... [facility] 05-09-2023 Instructions Ruth Perez APRN.FLATBED PRESS OPERATOR - 05/09/2023 1:[address] scan of head and neck, get labs completed a couple days prior. Trial off of the lisinopril at night time to see if symptoms improve. Monitor blood pressure, Goal 130/80 or less. Keep up coming appointment with cardiology. Stay well hydrated Be mindful of position changes. If tinnitus does not improve recommend ENT evaluation. No infection seen, ear wax removed. Follow up pending test results. documented in this encounter [facility] 05-09-2023 History of Present illness Narrative This is a 77 year old male who presents today with: Patient presents with: Acute Visit: continued dizziness, neck ear pain, tinnitis HISTORY OF PRESENT ILLNESS: Shelton Kay is a 77 year old male. Patient presents with: Acute Visit: continued dizziness, neck ear pain, tinnitis Here in the office for continued ear pain and tinnitus. On going dizziness, new onset afib earlier in the year. Following with cardiology ( [facility]), refers following up soon. Getting lightheaded with position changes or moves too quickly. Checking BP at home, 110/40-140/60's. Dizziness will improve with rest. Tinnitus bilaterally that is constant. Refers that he will get vision changes in the right eye, pain that radiates down into the neck. No LOC. Concerned he may need a CT scan. 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 Was having neck pain and difficulty swallowing, US neck soft tissue was normal. Will be having upper scope completed soon. PAST MEDICAL HISTORY: PAST MEDICAL HISTORY Diagnosis Date Allergic rhinitis, cause unspecified Arthritis Atherosclerotic heart disease of [place] coronary artery without angina pectoris Atrial fibrillation (HCC) Avascular necrosis (HCC) Benign neoplasm of colon CAD (coronary artery disease) Cardiomyopathy (HCC) Carotid artery stenosis Chronic back pain Diverticulosis of colon (without mention of hemorrhage) Dyslipidemia Erectile dysfunction Essential hypertension, benign Fatigue GERD (gastroesophageal reflux disease) Gout, unspecified H/O carotid stenosis Hepatomegaly Internal hemorrhoids without mention of complication Mixed hyperlipidemia Osteoarthritis Other and unspecified hyperlipidemia Peripheral arterial disease (HCC) Prominent abdominal aortic pulsation S/P drug eluting coronary stent placement Snoring Status post catheter ablation of atrial fibrillation 12/21/2022 Patient underwent radiofrequency PVI for both atrial fibrillation as well as typical atrial flutter with Dr. Walker on 12/20/2022. Subclavian arterial stenosis (HCC) Unspecified atrial fibrillation (HCC) PAST SURGICAL HISTORY Procedure Laterality Date ARTHROPLASTY TOTAL SHOULDER 06/2011 Dr. Benitez. ARTHRP ACETBLR/PROX FEM PROSTC AGRFT/ALGRFT 04/2012 Dr. Wood> [facility]. ARTHRP KNE CONDYLE&PLATU MEDIAL&LAT COMPARTMENTS Right COLONOSCOPY W/BIOPSY SINGLE/MULTIPLE 08/24/2006 EGD 12/01/2020 EYE SURGERY HX JOINT REPLACEMENT HX LEFT HEART CATH,PERCUTANEOUS 10/06/2022 OPEN REPAIR OF ROTATOR CUFF ACUTE 10/03/2008 Rotator cuff repair-right PAST SURGICAL HISTORY OF right knee scope PAST SURGICAL HISTORY OF cataract both eyes PAST SURGICAL HISTORY OF N/A 12/20/2022 EPS with Ablation, [place] [facility] TONSILLECTOMY HX TONSILLECTOMY PRIMARY/SECONDARY <AGE 12 Tonsillectomy and adnoids ALLERGIES Indocin [Indomethacin Sodium] and Mobic [Meloxicam] MEDICATIONS Current Outpatient Medications Medication Sig ferrous sulfate 325 mg (65 mg iron) tablet Take 1 tablet by mouth once daily. carvedilol (COREG) 6.25 mg tablet Take 1 tablet by mouth twice daily. lisinopril (ZESTRIL) 5 mg tablet Take 1 tablet by mouth once daily. lisinopril 2.5 mg tablet Take 5 mg by mouth once daily. (Patient not taking: Reported on 03/29/2023) predniSONE (DELTASONE) 10 mg tablet Take 1 tablet by mouth as needed. hydrOXYchloroQUINE (PLAQUENIL) 200 mg tablet Take 200 mg by mouth twice daily. simvastatin (ZOCOR) 20 mg tablet Take 1 tablet by mouth once daily. multivit with minerals/lutein (MULTIVITAMIN 50 PLUS ORAL) Take 1 tablet by mouth once daily. carvedilol (COREG) 3.125 mg tablet Take 6.25 mg by mouth twice daily. (Patient not taking: Reported on 03/29/2023) allopurinol (ZYLOPRIM) 100 mg tablet TAKE 1 TABLET BY MOUTH TWICE A DAY apixaban (ELIQUIS) 5 mg tab(s) Take 5 mg by mouth twice daily. clopidogrel (PLAVIX) 75 mg tablet Take 75 mg by mouth once daily. Melatonin 5 mg cap Take 5 mg by mouth daily at bedtime. furosemide (LASIX) 40 mg tablet Take 1 tablet by mouth once daily. sildenafil (VIAGRA) 100 mg tablet Take 1/2 to 1 tablet by mouth 1 hour prior to anticipated intercourse. No current facility-administered medications for this visit. FAMILY HISTORY Problem Relation Age of Onset Cancer Mother KIDNEY Coronary Artery Disease Mother Lipids Mother Stroke Mother Heart disease Mother Cancer Father LUNG other (fibromyalgia) Sister Prostate Cancer Brother Social History Tobacco Use Smoking status: Former Packs/day: 1.00 Years: 10.00 Additional pack years: 0.00 Total pack years: 10.00 Types: Cigarettes Quit date: 07/18/1971 Years since quittin.8 Smokeless tobacco: Never Vaping Use Vaping Use: Never used Substance Use Topics Alcohol use: Yes Alcohol/week: 5.0 standard drinks of alcohol Types: 3 Standard drinks or equivalent, 2 Cans of Beer (12oz) per week Comment: weekends beer Drug use: No REVIEW OF SYSTEMS GENERAL: No weight loss, malaise or fevers/chills HEENT: + Vision Changes NECK: Neck Pain RESPIRATORY: Negative for cough, hemoptysis, wheezing, dyspnea or shortness of breath CARDIOVASCULAR: Negative for chest pain, leg swelling, orthopnea, or palpitations GI: No nausea, vomiting, or diarrhea/constipation. No hematochezia/melena. No heartburn or reflux symptoms. : No history of dysuria, frequency or incontinence MUSCULOSKELETAL: Negative for joint pain or swelling. SKIN: Negative for lesions, rash, and itching ENDOCRINE: Negative for cold or heat intolerance, polyuria, polydipsia and goiter NEURO: + Dizziness MOOD: Negative for depression, anxiety, or suicidal ideation. EXAM: BP 100/50 Pulse 66 Resp 16 Wt 78.5 kg (173 lb) SpO2 97% BMI 24.82 kg/m PHYSICAL EXAM: General Appearance: Well appearing, alert, in no acute distress, well-hydrated, well nourished. Skin: Skin color, texture, turgor normal, no suspicious rashes or lesions. Head: Normocephalic, no masses, lesions, tenderness or abnormalities. Eyes: Anicteric sclera. Pupils are equally round and reactive to light. Extraocular movements are intact. Ears: External ears normal, bilateral cerumen noted, removed without difficulty with a curette. TM's dull. Lungs: Lungs clear to auscultation. No wheezing, rhonchi, rales. Heart: Positive findings: irregular rhythm. History of Afib. Extremities: No deformities, edema, skin discoloration, clubbing or cyanosis. Good capillary refill. Peripheral Pulses: Normal, Capillary refill <2secs, strong peripheral pulses, Pulses palpable. Neurologic: Gait normal. Sensation grossly intact. ASSESSMENT/PLAN: 1. Paroxysmal atrial fibrillation (HCC) - ICD9: 427.31, ICD10: I48.0 (primary diagnosis) - Stable, continue to take medication as prescribed. - Keep up coming appt with cardiology. 2. Dizziness - ICD9: 780.4, ICD10: R42 - May trial off of Lisinopril to see if symptoms improve. - Instructed to monitor Blood pressure. - Keep up coming appointment with cardiology. - Due to on going symptoms will get CT head/neck. - CTA HEAD WO/W IVCON - CTA NECK W IVCON - IV CONTRAST (RADIOLOGY PROCEDURE) - CREATININE BLD 3. Tinnitus, unspecified laterality - ICD9: 388.30, ICD10: H93.19 - If symptoms do not improve recommend follow up with ENT Brianna. - CTA HEAD WO/W IVCON - CTA NECK W IVCON - IV CONTRAST (RADIOLOGY PROCEDURE) - CREATININE BLD 4. Bilateral impacted cerumen - ICD9: 380.4, ICD10: H61.23 - Cerumen removed without difficulty. 5. Tenderness of neck - ICD9: 723.1, ICD10: M54.2 - Complete EGD Follow up pending test results or sooner as needed. Discussed treatment plan and patient voices understanding. Patient's questions answered appropriately. Medications and potential side effects were discussed and patient voices understanding. Ruth Perez APRN.[facility] This note was partially generated using [employer] voice recognition system. Note was reviewed for accuracy. There may be minor misspellings or grammar miscues with [employer] voice recognition. documented in this encounter [facility] 05-02-2023 Miscellaneous Notes Pt advised he can get the vaccine at any pharmacy or he can call in and make a nurse visit appt. Janneth Burkett Ma documented in this encounter [facility] 04-26-2023 Note HNO ID: [id number] Author: Claudette Morgan PA-C Service: ? Author Type: Physician Computer Technology Teacher Type: Progress Notes Filed: 05/02/2023 2:17 PM Note Text: HISTORY AND PHYSICAL Shelton Kay 1945 REFERRING PHYSICIAN: Federico Vigil MD CHIEF COMPLAINT: Consult (EGD, pain with swallowing, 04/13/2023 [facility]) HPI: The patient is a 77 year old male referred for endoscopy. Shelton notes a history of neck and throat pain with swallowing over the last year. Onset of symptoms following cardiac ablation. He states pain is worse in right side of his neck. Pain exacerbated with eating foods such as bread. Was felt to have enlarged thyroid on exam by PCP, had ultrasound which did not show concerning findings. Patient denies any change in bowel habits, weight changes, blood in stools, black tarry stools or abdominal pain. Denies family history of colon issues. Shelton has undergone prior endoscopy. Last EGD 12/01/20 under conscious sedation, findings of gastritis. Last colonoscopy in [facility] 09/08/16 with removal of sigmoid polyp, 3 year follow-up recommended. Path report not available in [facility]. Patient's medical history is significant for atrial fibrillation, AVN, cardiomyopathy, coronary stents, carotid stenosis, PAD. He follows with Dr. Vigil in primary care for his chronic medical conditions. PAST MEDICAL HISTORY Diagnosis Date Allergic rhinitis, cause unspecified Arthritis Atherosclerotic heart disease of [place] coronary artery without angina pectoris Atrial fibrillation (HCC) Avascular necrosis (HCC) Benign neoplasm of colon CAD (coronary artery disease) Cardiomyopathy (HCC) Carotid artery stenosis Chronic back pain Diverticulosis of colon (without mention of hemorrhage) Dyslipidemia Erectile dysfunction Essential hypertension, benign Fatigue GERD (gastroesophageal reflux disease) Gout, unspecified H/O carotid stenosis Hepatomegaly Internal hemorrhoids without mention of complication Mixed hyperlipidemia Osteoarthritis Other and unspecified hyperlipidemia Peripheral arterial disease (HCC) Prominent abdominal aortic pulsation S/P drug eluting coronary stent placement Snoring Status post catheter ablation of atrial fibrillation 12/21/2022 Patient underwent radiofrequency PVI for both atrial fibrillation as well as typical atrial flutter with Dr. Walker on 12/20/2022. Subclavian arterial stenosis (HCC) Unspecified atrial fibrillation (HCC) PAST SURGICAL HISTORY Procedure Laterality Date ARTHROPLASTY TOTAL SHOULDER 06/2011 Dr. Benitez. ARTHRP ACETBLR/PROX FEM PROSTC AGRFT/ALGRFT 04/2012 Dr. Wood> [facility]. ARTHRP KNE CONDYLEANDPLATU MEDIALANDLAT COMPARTMENTS Right COLONOSCOPY W/BIOPSY SINGLE/MULTIPLE 08/24/2006 EGD 12/01/2020 EYE SURGERY HX JOINT REPLACEMENT HX LEFT HEART CATH,PERCUTANEOUS 10/06/2022 OPEN REPAIR OF ROTATOR CUFF ACUTE 10/03/2008 Rotator cuff repair-right PAST SURGICAL HISTORY OF right knee scope PAST SURGICAL HISTORY OF cataract both eyes PAST SURGICAL HISTORY OF N/A 12/20/2022 EPS with Ablation, [facility] TONSILLECTOMY HX TONSILLECTOMY PRIMARY/SECONDARY Tonsillectomy and adnoids Current Outpatient Medications Medication Sig allopurinol (ZYLOPRIM) 100 mg tablet TAKE 1 TABLET BY MOUTH TWICE A DAY apixaban (ELIQUIS) 5 mg tab(s) Take 5 mg by mouth twice daily. carvedilol (COREG) 3.125 mg tablet Take 6.25 mg by mouth twice daily. (Patient not taking: Reported on 03/29/2023) carvedilol (COREG) 6.25 mg tablet Take 1 tablet by mouth twice daily. clopidogrel (PLAVIX) 75 mg tablet Take 75 mg by mouth once daily. ferrous sulfate 325 mg (65 mg iron) tablet Take 1 tablet by mouth once daily. furosemide (LASIX) 40 mg tablet Take 1 tablet by mouth once daily. hydrOXYchloroQUINE (PLAQUENIL) 200 mg tablet Take 200 mg by mouth twice daily. JARDIANCE 10 mg tablet Take 10 mg by mouth once daily. (Patient not taking: Reported on 03/29/2023) lisinopril (ZESTRIL) 5 mg tablet Take 1 tablet by mouth once daily. lisinopril 2.5 mg tablet Take 5 mg by mouth once daily. (Patient not taking: Reported on 03/29/2023) Melatonin 5 mg cap Take 5 mg by mouth daily at bedtime. multivit with minerals/lutein (MULTIVITAMIN 50 PLUS ORAL) Take 1 tablet by mouth once daily. predniSONE (DELTASONE) 10 mg tablet Take 1 tablet by mouth as needed. sildenafil (VIAGRA) 100 mg tablet Take 1/2 to 1 tablet by mouth 1 hour prior to anticipated intercourse. simvastatin (ZOCOR) 20 mg tablet Take 1 tablet by mouth once daily. No current facility-administered medications for this visit. ALLERGIES: Indocin [Indomethacin Sodium] and Mobic [Meloxicam] PERSONAL HISTORY: Social History Tobacco Use Smoking status: Former Packs/day: 1.00 Years: 10.00 Additional pack years: 0.00 Total pack years: 10.00 Types: Cigarettes Quit date: 07/18/1971 Years since quittin.8 Smokeless tobacco: Never Vaping Use Vaping U (more content not included)... [facility] 04-26-2023 History of Present illness Narrative HISTORY AND PHYSICAL Shelton Kay 1945 REFERRING PHYSICIAN: Federico Vigil MD CHIEF COMPLAINT: Consult (EGD, pain with swallowing, 04/13/2023 [facility]) HPI: The patient is a 77 year old male referred for endoscopy. Shelton notes a history of neck and throat pain with swallowing over the last year. Onset of symptoms following cardiac ablation. He states pain is worse in right side of his neck. Pain exacerbated with eating foods such as bread. Was felt to have enlarged thyroid on exam by PCP, had ultrasound which did not show concerning findings. Patient denies any change in bowel habits, weight changes, blood in stools, black tarry stools or abdominal pain. Denies family history of colon issues. Shelton has undergone prior endoscopy. Last EGD 12/01/20 under conscious sedation, findings of gastritis. Last colonoscopy in [facility] 09/08/16 with removal of sigmoid polyp, 3 year follow-up recommended. Path report not available in [facility]. Patient's medical history is significant for atrial fibrillation, AVN, cardiomyopathy, coronary stents, carotid stenosis, PAD. He follows with Dr. Vigil in primary care for his chronic medical conditions. PAST MEDICAL HISTORY Diagnosis Date Allergic rhinitis, cause unspecified Arthritis Atherosclerotic heart disease of [place] coronary artery without angina pectoris Atrial fibrillation (HCC) Avascular necrosis (HCC) Benign neoplasm of colon CAD (coronary artery disease) Cardiomyopathy (HCC) Carotid artery stenosis Chronic back pain Diverticulosis of colon (without mention of hemorrhage) Dyslipidemia Erectile dysfunction Essential hypertension, benign Fatigue GERD (gastroesophageal reflux disease) Gout, unspecified H/O carotid stenosis Hepatomegaly Internal hemorrhoids without mention of complication Mixed hyperlipidemia Osteoarthritis Other and unspecified hyperlipidemia Peripheral arterial disease (HCC) Prominent abdominal aortic pulsation S/P drug eluting coronary stent placement Snoring Status post catheter ablation of atrial fibrillation 12/21/2022 Patient underwent radiofrequency PVI for both atrial fibrillation as well as typical atrial flutter with Dr. Walker on 12/20/2022. Subclavian arterial stenosis (HCC) Unspecified atrial fibrillation (HCC) PAST SURGICAL HISTORY Procedure Laterality Date ARTHROPLASTY TOTAL SHOULDER 06/2011 Dr. Benitez. ARTHRP ACETBLR/PROX FEM PROSTC AGRFT/ALGRFT 04/2012 Dr. Wood> [facility]. ARTHRP KNE CONDYLE&PLATU MEDIAL&LAT COMPARTMENTS Right COLONOSCOPY W/BIOPSY SINGLE/MULTIPLE 08/24/2006 EGD 12/01/2020 EYE SURGERY HX JOINT REPLACEMENT HX LEFT HEART CATH,PERCUTANEOUS 10/06/2022 OPEN REPAIR OF ROTATOR CUFF ACUTE 10/03/2008 Rotator cuff repair-right PAST SURGICAL HISTORY OF right knee scope PAST SURGICAL HISTORY OF cataract both eyes PAST SURGICAL HISTORY OF N/A 12/20/2022 EPS with Ablation, [facility] TONSILLECTOMY HX TONSILLECTOMY PRIMARY/SECONDARY <AGE 12 Tonsillectomy and adnoids Current Outpatient Medications Medication Sig allopurinol (ZYLOPRIM) 100 mg tablet TAKE 1 TABLET BY MOUTH TWICE A DAY apixaban (ELIQUIS) 5 mg tab(s) Take 5 mg by mouth twice daily. carvedilol (COREG) 3.125 mg tablet Take 6.25 mg by mouth twice daily. (Patient not taking: Reported on 03/29/2023) carvedilol (COREG) 6.25 mg tablet Take 1 tablet by mouth twice daily. clopidogrel (PLAVIX) 75 mg tablet Take 75 mg by mouth once daily. ferrous sulfate 325 mg (65 mg iron) tablet Take 1 tablet by mouth once daily. furosemide (LASIX) 40 mg tablet Take 1 tablet by mouth once daily. hydrOXYchloroQUINE (PLAQUENIL) 200 mg tablet Take 200 mg by mouth twice daily. JARDIANCE 10 mg tablet Take 10 mg by mouth once daily. (Patient not taking: Reported on 03/29/2023) lisinopril (ZESTRIL) 5 mg tablet Take 1 tablet by mouth once daily. lisinopril 2.5 mg tablet Take 5 mg by mouth once daily. (Patient not taking: Reported on 03/29/2023) Melatonin 5 mg cap Take 5 mg by mouth daily at bedtime. multivit with minerals/lutein (MULTIVITAMIN 50 PLUS ORAL) Take 1 tablet by mouth once daily. predniSONE (DELTASONE) 10 mg tablet Take 1 tablet by mouth as needed. sildenafil (VIAGRA) 100 mg tablet Take 1/2 to 1 tablet by mouth 1 hour prior to anticipated intercourse. simvastatin (ZOCOR) 20 mg tablet Take 1 tablet by mouth once daily. No current facility-administered medications for this visit. ALLERGIES: Indocin [Indomethacin Sodium] and Mobic [Meloxicam] PERSONAL HISTORY: Social History Tobacco Use Smoking status: Former Packs/day: 1.00 Years: 10.00 Additional pack years: 0.00 Total pack years: 10.00 Types: Cigarettes Quit date: 07/18/1971 Years since quittin.8 Smokeless tobacco: Never Vaping Use Vaping Use: Never used Substance Use Topics Alcohol use: Yes Alcohol/week: 5.0 standard drinks of alcohol Types: 3 Standard drinks or equivalent, 2 Cans of Beer (12oz) per week Comment: weekends beer Drug use: No FAMILY HISTORY: FAMILY HISTORY Problem Relation Age of Onset Cancer Mother KIDNEY Coronary Artery Disease Mother Lipids Mother Stroke Mother Heart disease Mother Cancer Father LUNG other (fibromyalgia) Sister Prostate Cancer Brother REVIEW OF SYMPTOMS: The review of systems data was entered by the nurse and reviewed by nh Nursing Notes: Tiffany Lewis LPN 04/26/2023 1:00 PM Signed REVIEW OF SYSTEMS: General: The patient notes fatigue, denies weight loss, denies weight gain, notes feeling hot, and denies feelings of cold. Eyes: The patient denies glaucoma, notes eye injury/surgery, wears glasses or contacts. Ear/Nose/Throat: The patient notes allergies, denies hayfever, denies ear infections, and denies bloody noses. Cardiovascular: The patient denies chest pain, notes heart disease, notes high blood pressure,notes cardiac stent, denies prior heart attack, notes irregular heart beat, notes high cholesterol, notes poor circulation, notes heart failure, other cardiac issues, denies claudication, denies cold feet, denies peripheral arterial stent. Respiratory: The patient denies tuberculosis, denies pneumonia, denies frequent cough, denies pulmonary embolism, denies shortness of breath, and denies coughing up blood. Gastrointestinal: The patient notes difficulty swallowing, notes acid reflux, denies ulcers, denies vomiting, denies jaundice/hepatitis, denies gallbladder problems, denies black or tarry stools, denies hemorrhoids, denies bleeding from rectum, denies diverticulitis, denies constipation, notes diarrhea, denies loss of stool control, and denies hernias. Kidney/Bladder: The patient denies kidney stones, denies urine infections, and denies bloody urine. Skin: The patient denies a history of skin cancer, notes bleeding/changing moles, and denies a history of skin rash. Neurologic: The patient denies a history of epilepsy/convulsions, denies headaches, denies head/spinal injuries, and denies stroke/TIA. Psychiatric: The patient denies psychiatric medications, denies depression, and denies voices, denies substance abuse. Endocrine: The patient denies thyroid disorders, denies diabetes, and denies hormonal problems. Hematologic: The patient notes a history of bruising, notes bleeding, and notes anemia, denies blood clots. Infections: The patient notes a history of measles and mumps, denies rheumatic fever, and denies sexually transmitted diseases. Musculoskeletal: The patient notes back pain/injury, denies back problems, denies sciatica, denies knee/foot trouble, notes arthritis, or notes gout. When was patient's last Mammogram screening? N/A Last Colonoscopy: 2016 Tiffany Lewis LPN I have confirmed and edited as necessary, the PFSH and ROS obtained by others. Claudette Morgan PA-C PHYSICAL EXAMINATION: General: The patient is 77 year old male, well nourished, well hydrated in no acute distress. The patient is oriented to time, place, and person. VITALS: Blood pressure 132/64, pulse 61, temperature 36.2 C (97.2 F), height 177.8 cm (5' 10 ), weight 78.5 kg (173 lb), SpO2 97 %. Body mass index is 24.82 kg/m . HEENT: Normal cephalic, ataumatic, pupils are equally round, sclera are anicteric, mucous membranes are moist, oropharynx is clear. Neck has no masses, asymmetry or lymphadenopathy. Respiratory: Clear to auscultation and percussion. Normal respiratory excursion and pattern. Cardiac: Examination is regular rate and rhythm. Normal S1/S2 Abdominal exam: Soft, nontender, with no palpable masses. No hepatosplenomegaly. No palpable hernias. Extremities: no clubbing, cyanosis or edema. No adenopathy. LABORATORY VALUES: As Noted RADIOLOGIC STUDIES: As Noted Assessment IMPRESSION: dysphagia, throat pain. History of colon polyp PLAN: I have reviewed my findings with the surgeon. Will plan for upper endoscopy. Patient was also offered colonoscopy at same setting, as he appears to have history of polyp and be overdue for surveillance colonoscopy. Path report not available for review. Patient declines to schedule colonoscopy at this time. We discussed the risks and benefits of the planned endoscopy. I have informed the patient that complications can occur including failure to complete the endoscopy and perforation. The patient had the opportunity to ask questions concerning the planned endoscopy. My staff has also explained the procedure to the patient in understandable terms and has given the patient printed material concerning the procedure. The patient freely consents to surgery. If EGD unremarkable, recommend follow-up with ENT We will plan for Monitored Anesthetic Care. Diagnoses: (R13.10) Pain with swallowing (primary encounter diagnosis) (Z86.010) History of colonic polyps (R10.10) Upper abdominal pain Consultation requested by Dr. Vigil for an opinion regarding dysphagia. My final recommendations will be communicated back to the requesting physician by way of shared Medical record or letter to requesting physician via US mail. Claudette Morgan PA-C documented in this encounter [facility] 04-26-2023 Nurse Note REVIEW OF SYSTEMS: General: The patient notes fatigue, denies weight loss, denies weight gain, notes feeling hot, and denies feelings of cold. Eyes: The patient denies glaucoma, notes eye injury/surgery, wears glasses or contacts. Ear/Nose/Throat: The patient notes allergies, denies hayfever, denies ear infections, and denies bloody noses. Cardiovascular: The patient denies chest pain, notes heart disease, notes high blood pressure,notes cardiac stent, denies prior heart attack, notes irregular heart beat, notes high cholesterol, notes poor circulation, notes heart failure, other cardiac issues, denies claudication, denies cold feet, denies peripheral arterial stent. Respiratory: The patient denies tuberculosis, denies pneumonia, denies frequent cough, denies pulmonary embolism, denies shortness of breath, and denies coughing up blood. Gastrointestinal: The patient notes difficulty swallowing, notes acid reflux, denies ulcers, denies vomiting, denies jaundice/hepatitis, denies gallbladder problems, denies black or tarry stools, denies hemorrhoids, denies bleeding from rectum, denies diverticulitis, denies constipation, notes diarrhea, denies loss of stool control, and denies hernias. Kidney/Bladder: The patient denies kidney stones, denies urine infections, and denies bloody urine. Skin: The patient denies a history of skin cancer, notes bleeding/changing moles, and denies a history of skin rash. Neurologic: The patient denies a history of epilepsy/convulsions, denies headaches, denies head/spinal injuries, and denies stroke/TIA. Psychiatric: The patient denies psychiatric medications, denies depression, and denies voices, denies substance abuse. Endocrine: The patient denies thyroid disorders, denies diabetes, and denies hormonal problems. Hematologic: The patient notes a history of bruising, notes bleeding, and notes anemia, denies blood clots. Infections: The patient notes a history of measles and mumps, denies rheumatic fever, and denies sexually transmitted diseases. Musculoskeletal: The patient notes back pain/injury, denies back problems, denies sciatica, denies knee/foot trouble, notes arthritis, or notes gout. When was patient's last Mammogram screening? N/A Last Colonoscopy: 2016 Tiffany Lewis LPN documented in this encounter [facility] 04-17-2023 Note HNO ID: [id number] Author: Josiah Christopher APRN.[facility] Service: ? Author Type: Nurse Practitioner Type: Progress Notes Filed: 04/17/2023 12:37 PM Note Text: Subjective Came in with 2 different concerns. Patient said he has had redness on his right ankle for an unspecified amount of time. Denies any pain says it does itch at times. Patient denies any difficulty with range of motion. Patient also said his middle right toe is red swollen and warm. Patient does have a significant history of gout-like attacks. Patient is on medication for that and just started weaning down. The history is provided by the patient. No language instructor was used. Rash Review of Systems Constitutional: Negative. Skin: Positive for rash. Objective Physical Exam Constitutional: Appearance: Normal appearance. Pulmonary: Effort: Pulmonary effort is normal. Skin: Comments: Erythema noted in the area marked above in blue. Is blanchable. Joint and middle toe where marked red is red and warm. Neurological: Mental Status: He is alert. PAST MEDICAL HISTORY Diagnosis Date Allergic rhinitis, cause unspecified Arthritis Atherosclerotic heart disease of [place] coronary artery without angina pectoris Atrial fibrillation (HCC) Avascular necrosis (HCC) Benign neoplasm of colon CAD (coronary artery disease) Cardiomyopathy (HCC) Carotid artery stenosis Chronic back pain Diverticulosis of colon (without mention of hemorrhage) Dyslipidemia Erectile dysfunction Essential hypertension, benign Fatigue GERD (gastroesophageal reflux disease) Gout, unspecified H/O carotid stenosis Hepatomegaly Internal hemorrhoids without mention of complication Mixed hyperlipidemia Osteoarthritis Other and unspecified hyperlipidemia Peripheral arterial disease (HCC) Prominent abdominal aortic pulsation S/P drug eluting coronary stent placement Snoring Status post catheter ablation of atrial fibrillation 12/21/2022 Patient underwent radiofrequency PVI for both atrial fibrillation as well as typical atrial flutter with Dr. Walker on 12/20/2022. Subclavian arterial stenosis (HCC) Unspecified atrial fibrillation (HCC) PAST SURGICAL HISTORY Procedure Laterality Date ARTHROPLASTY TOTAL SHOULDER 06/2011 Dr. Benitez. ARTHRP ACETBLR/PROX FEM PROSTC AGRFT/ALGRFT 04/2012 Dr. Wood> [facility]. ARTHRP KNE CONDYLEANDPLATU MEDIALANDLAT COMPARTMENTS Right COLONOSCOPY W/BIOPSY SINGLE/MULTIPLE 08/24/2006 EGD 12/01/2020 EYE SURGERY HX JOINT REPLACEMENT HX LEFT HEART CATH,PERCUTANEOUS 10/06/2022 OPEN REPAIR OF ROTATOR CUFF ACUTE 10/03/2008 Rotator cuff repair-right PAST SURGICAL HISTORY OF right knee scope PAST SURGICAL HISTORY OF cataract both eyes PAST SURGICAL HISTORY OF N/A 12/20/2022 EPS with Ablation, [facility] TONSILLECTOMY HX TONSILLECTOMY PRIMARY/SECONDARY Tonsillectomy and adnoids ALLERGIES Indocin [Indomethacin Sodium] and Mobic [Meloxicam] MEDICATIONS ferrous sulfate 325 mg (65 mg iron) tablet Take 1 tablet by mouth once daily. carvedilol (COREG) 6.25 mg tablet Take 1 tablet by mouth twice daily. lisinopril (ZESTRIL) 5 mg tablet Take 1 tablet by mouth once daily. predniSONE (DELTASONE) 10 mg tablet Take 1 tablet by mouth as needed. hydrOXYchloroQUINE (PLAQUENIL) 200 mg tablet Take 200 mg by mouth twice daily. simvastatin (ZOCOR) 20 mg tablet Take 1 tablet by mouth once daily. multivit with minerals/lutein (MULTIVITAMIN 50 PLUS ORAL) Take 1 tablet by mouth once daily. allopurinol (ZYLOPRIM) 100 mg tablet TAKE 1 TABLET BY MOUTH TWICE A DAY apixaban (ELIQUIS) 5 mg tab(s) Take 5 mg by mouth twice daily. clopidogrel (PLAVIX) 75 mg tablet Take 75 mg by mouth once daily. Melatonin 5 mg cap Take 5 mg by mouth daily at bedtime. furosemide (LASIX) 40 mg tablet Take 1 tablet by mouth once daily. sildenafil (VIAGRA) 100 mg tablet Take 1/2 to 1 tablet by mouth 1 hour prior to anticipated intercourse. lisinopril 2.5 mg tablet Take 5 mg by mouth once daily. (Patient not taking: Reported on 03/29/2023) JARDIANCE 10 mg tablet Take 10 mg by mouth once daily. (Patient not taking: Reported on 03/29/2023) carvedilol (COREG) 3.125 mg tablet Take 6.25 mg by mouth twice daily. (Patient not taking: Reported on 03/29/2023) FAMILY HISTORY Problem Relation Age of Onset Cancer Mother KIDNEY Coronary Artery Disease Mother Lipids Mother Stroke Mother Heart disease Mother Cancer Father LUNG other (fibromyalgia) Sister Prostate Cancer Brother Social History Tobacco Use Smoking status: Former Packs/day: 1.00 Years: 10.00 Additional pack years: 0.00 Total pack years: 10.00 Types: Cigarettes Quit date: 07/18/1971 Years since quittin.7 Smokeless tobacco: Never Vaping Use Vaping Use: Never used Substance Use Topics Alcohol use: Yes Alcohol/week: 5.0 standard drinks of alcohol Types: 3 Standard drinks or equivalent, 2 Cans of Beer (more content not included)... [facility] 04-17-2023 History of Present illness Narrative Images from the original note were not included. Subjective Came in with 2 different concerns. Patient said he has had redness on his right ankle for an unspecified amount of time. Denies any pain says it does itch at times. Patient denies any difficulty with range of motion. Patient also said his middle right toe is red swollen and warm. Patient does have a significant history of gout-like attacks. Patient is on medication for that and just started weaning down. The history is provided by the patient. No language instructor was used. Rash Review of Systems Constitutional: Negative. Skin: Positive for rash. Objective Physical Exam Constitutional: Appearance: Normal appearance. Pulmonary: Effort: Pulmonary effort is normal. Skin: Comments: Erythema noted in the area marked above in blue. Is blanchable. Joint and middle toe where marked red is red and warm. Neurological: Mental Status: He is alert. PAST MEDICAL HISTORY Diagnosis Date Allergic rhinitis, cause unspecified Arthritis Atherosclerotic heart disease of [place] coronary artery without angina pectoris Atrial fibrillation (HCC) Avascular necrosis (HCC) Benign neoplasm of colon CAD (coronary artery disease) Cardiomyopathy (HCC) Carotid artery stenosis Chronic back pain Diverticulosis of colon (without mention of hemorrhage) Dyslipidemia Erectile dysfunction Essential hypertension, benign Fatigue GERD (gastroesophageal reflux disease) Gout, unspecified H/O carotid stenosis Hepatomegaly Internal hemorrhoids without mention of complication Mixed hyperlipidemia Osteoarthritis Other and unspecified hyperlipidemia Peripheral arterial disease (HCC) Prominent abdominal aortic pulsation S/P drug eluting coronary stent placement Snoring Status post catheter ablation of atrial fibrillation 12/21/2022 Patient underwent radiofrequency PVI for both atrial fibrillation as well as typical atrial flutter with Dr. Walker on 12/20/2022. Subclavian arterial stenosis (HCC) Unspecified atrial fibrillation (HCC) PAST SURGICAL HISTORY Procedure Laterality Date ARTHROPLASTY TOTAL SHOULDER 06/2011 Dr. Benitez. ARTHRP ACETBLR/PROX FEM PROSTC AGRFT/ALGRFT 04/2012 Dr. Wood> [facility]. ARTHRP KNE CONDYLE&PLATU MEDIAL&LAT COMPARTMENTS Right COLONOSCOPY W/BIOPSY SINGLE/MULTIPLE 08/24/2006 EGD 12/01/2020 EYE SURGERY HX JOINT REPLACEMENT HX LEFT HEART CATH,PERCUTANEOUS 10/06/2022 OPEN REPAIR OF ROTATOR CUFF ACUTE 10/03/2008 Rotator cuff repair-right PAST SURGICAL HISTORY OF right knee scope PAST SURGICAL HISTORY OF cataract both eyes PAST SURGICAL HISTORY OF N/A 12/20/2022 EPS with Ablation, [facility] TONSILLECTOMY HX TONSILLECTOMY PRIMARY/SECONDARY <AGE 12 Tonsillectomy and adnoids ALLERGIES Indocin [Indomethacin Sodium] and Mobic [Meloxicam] MEDICATIONS ferrous sulfate 325 mg (65 mg iron) tablet Take 1 tablet by mouth once daily. carvedilol (COREG) 6.25 mg tablet Take 1 tablet by mouth twice daily. lisinopril (ZESTRIL) 5 mg tablet Take 1 tablet by mouth once daily. predniSONE (DELTASONE) 10 mg tablet Take 1 tablet by mouth as needed. hydrOXYchloroQUINE (PLAQUENIL) 200 mg tablet Take 200 mg by mouth twice daily. simvastatin (ZOCOR) 20 mg tablet Take 1 tablet by mouth once daily. multivit with minerals/lutein (MULTIVITAMIN 50 PLUS ORAL) Take 1 tablet by mouth once daily. allopurinol (ZYLOPRIM) 100 mg tablet TAKE 1 TABLET BY MOUTH TWICE A DAY apixaban (ELIQUIS) 5 mg tab(s) Take 5 mg by mouth twice daily. clopidogrel (PLAVIX) 75 mg tablet Take 75 mg by mouth once daily. Melatonin 5 mg cap Take 5 mg by mouth daily at bedtime. furosemide (LASIX) 40 mg tablet Take 1 tablet by mouth once daily. sildenafil (VIAGRA) 100 mg tablet Take 1/2 to 1 tablet by mouth 1 hour prior to anticipated intercourse. lisinopril 2.5 mg tablet Take 5 mg by mouth once daily. (Patient not taking: Reported on 03/29/2023) JARDIANCE 10 mg tablet Take 10 mg by mouth once daily. (Patient not taking: Reported on 03/29/2023) carvedilol (COREG) 3.125 mg tablet Take 6.25 mg by mouth twice daily. (Patient not taking: Reported on 03/29/2023) FAMILY HISTORY Problem Relation Age of Onset Cancer Mother KIDNEY Coronary Artery Disease Mother Lipids Mother Stroke Mother Heart disease Mother Cancer Father LUNG other (fibromyalgia) Sister Prostate Cancer Brother Social History Tobacco Use Smoking status: Former Packs/day: 1.00 Years: 10.00 Additional pack years: 0.00 Total pack years: 10.00 Types: Cigarettes Quit date: 07/18/1971 Years since quittin.7 Smokeless tobacco: Never Vaping Use Vaping Use: Never used Substance Use Topics Alcohol use: Yes Alcohol/week: 5.0 standard drinks of alcohol Types: 3 Standard drinks or equivalent, 2 Cans of Beer (12oz) per week Comment: weekends beer Drug use: No ASSESSMENT/PLAN: 1. Rash - ICD9: 782.1, ICD10: R21 (primary diagnosis) She is not believed to be an infection at this time. 2. Acute gout involving toe of right foot, unspecified cause - ICD9: 274.01, ICD10: M10.9 Patient also has a care plan through his physician to start if a gout flare occurs. Patient is going to start that and follow-up with primary care and specialist. Patient was okay with this care plan. Josiah Christopher APRN.CNP documented in this encounter [facility] 04-13-2023 Note HNO ID: [id number] Author: Elena Hennessy RDMS Service: ? Author Type: Pulp Grinder And Blender Type: Progress Notes Filed: 04/13/2023 9:39 AM Note Text: Radiology Service Progress Note PATIENT NAME: Shelton Kay DATE OF SERVICE: April 13, 2023 TIME: 9:38 AM PATIENT IDENTITY VERIFICATION COMPLETED USING TWO (2) IDENTIFIERS: Name and Date of confirmed by patient verbally. FALL SCREENING: Has the patient had 2 falls in the last year or 1 fall with injury or currently using an Ambulatory Assistive Device (Walker, Cane, Wheelchair, Crutches, etc.)? No PATIENT GENDER DATA: Male PATIENT RELEVANT IMPLANT DATA REVIEWED: Not Applicable RADIOLOGY DEPARTMENT: Ultrasound PERIPHERAL IV DATA: Not applicable SIGNED BY: Elena Hennessy RDMS RVT April 13, 2023 9:38 AM [facility] 04-13-2023 History of Present illness Narrative Radiology Service Progress Note PATIENT NAME: Shelton Kay DATE OF SERVICE: April 13, 2023 TIME: 9:38 AM PATIENT IDENTITY VERIFICATION COMPLETED USING TWO (2) IDENTIFIERS: Name and Date of confirmed by patient verbally. FALL SCREENING: Has the patient had 2 falls in the last year or 1 fall with injury or currently using an Ambulatory Assistive Device (Walker, Cane, Wheelchair, Crutches, etc.)? No PATIENT GENDER DATA: Male PATIENT RELEVANT IMPLANT DATA REVIEWED: Not Applicable RADIOLOGY DEPARTMENT: Ultrasound PERIPHERAL IV DATA: Not applicable SIGNED BY: Elena Hennessy RDMS RVT April 13, 2023 9:38 AM documented in this encounter [facility] 04-06-2023 Note HNO ID: [id number] Author: Ruth Perez APRN.FLATBED PRESS OPERATOR Service: ? Author Type: Nurse Practitioner Type: Progress Notes Filed: 04/06/2023 11:26 AM Note Text: This is a 77 year old male who presents today with: Patient presents with: Acute Visit: neck/throat pain right side HISTORY OF PRESENT ILLNESS: Shelton Kay is a 77 year old male. Patient presents with: Acute Visit: neck/throat pain right side Here in the office for throat/neck pain. Started after he had cardiac ablation. Refers that right side of neck is tender with touch and swallowing food. Refers he has some difficulty swallowing food, will need to drink fluids. Had thyroid work-up last July for enlarged thyroid. Testing was all normal, except TSH has been trending down. Had teeth implants over a year ago will be following up with oral surgeon. Abnormal CBC, was ordered from Rheumatology, Dr. Seo, was told her was anemic. PAST MEDICAL HISTORY: PAST MEDICAL HISTORY Diagnosis Date Allergic rhinitis, cause unspecified Arthritis Atherosclerotic heart disease of [place] coronary artery without angina pectoris Atrial fibrillation (HCC) Avascular necrosis (HCC) Benign neoplasm of colon CAD (coronary artery disease) Cardiomyopathy (HCC) Carotid artery stenosis Chronic back pain Diverticulosis of colon (without mention of hemorrhage) Dyslipidemia Erectile dysfunction Essential hypertension, benign Fatigue GERD (gastroesophageal reflux disease) Gout, unspecified H/O carotid stenosis Hepatomegaly Internal hemorrhoids without mention of complication Mixed hyperlipidemia Osteoarthritis Other and unspecified hyperlipidemia Peripheral arterial disease (HCC) Prominent abdominal aortic pulsation S/P drug eluting coronary stent placement Snoring Status post catheter ablation of atrial fibrillation 12/21/2022 Patient underwent radiofrequency PVI for both atrial fibrillation as well as typical atrial flutter with Dr. Walker on 12/20/2022. Subclavian arterial stenosis (HCC) Unspecified atrial fibrillation (HCC) PAST SURGICAL HISTORY Procedure Laterality Date ARTHROPLASTY TOTAL SHOULDER 06/2011 Dr. Benitez. ARTHRP ACETBLR/PROX FEM PROSTC AGRFT/ALGRFT 04/2012 Dr. Wood> [facility]. ARTHRP KNE CONDYLEANDPLATU MEDIALANDLAT COMPARTMENTS Right COLONOSCOPY W/BIOPSY SINGLE/MULTIPLE 08/24/2006 EGD 12/01/2020 EYE SURGERY HX JOINT REPLACEMENT HX LEFT HEART CATH,PERCUTANEOUS 10/06/2022 OPEN REPAIR OF ROTATOR CUFF ACUTE 10/03/2008 Rotator cuff repair-right PAST SURGICAL HISTORY OF right knee scope PAST SURGICAL HISTORY OF cataract both eyes PAST SURGICAL HISTORY OF N/A 12/20/2022 EPS with Ablation, [facility] TONSILLECTOMY HX TONSILLECTOMY PRIMARY/SECONDARY Tonsillectomy and adnoids ALLERGIES Indocin [Indomethacin Sodium] and Mobic [Meloxicam] MEDICATIONS Current Outpatient Medications Medication Sig carvedilol (COREG) 6.25 mg tablet Take 1 tablet by mouth twice daily. lisinopril (ZESTRIL) 5 mg tablet Take 1 tablet by mouth once daily. lisinopril 2.5 mg tablet Take 5 mg by mouth once daily. (Patient not taking: Reported on 03/29/2023) predniSONE (DELTASONE) 10 mg tablet Take 1 tablet by mouth as needed. hydrOXYchloroQUINE (PLAQUENIL) 200 mg tablet Take 200 mg by mouth twice daily. simvastatin (ZOCOR) 20 mg tablet Take 1 tablet by mouth once daily. multivit with minerals/lutein (MULTIVITAMIN 50 PLUS ORAL) Take 1 tablet by mouth once daily. JARDIANCE 10 mg tablet Take 10 mg by mouth once daily. (Patient not taking: Reported on 03/29/2023) carvedilol (COREG) 3.125 mg tablet Take 6.25 mg by mouth twice daily. (Patient not taking: Reported on 03/29/2023) allopurinol (ZYLOPRIM) 100 mg tablet TAKE 1 TABLET BY MOUTH TWICE A DAY apixaban (ELIQUIS) 5 mg tab(s) Take 5 mg by mouth twice daily. clopidogrel (PLAVIX) 75 mg tablet Take 75 mg by mouth once daily. Melatonin 5 mg cap Take 5 mg by mouth daily at bedtime. furosemide (LASIX) 40 mg tablet Take 1 tablet by mouth once daily. sildenafil (VIAGRA) 100 mg tablet Take 1/2 to 1 tablet by mouth 1 hour prior to anticipated intercourse. No current facility-administered medications for this visit. FAMILY HISTORY Problem Relation Age of Onset Cancer Mother KIDNEY Coronary Artery Disease Mother Lipids Mother Stroke Mother Heart disease Mother Cancer Father LUNG other (fibromyalgia) Sister Prostate Cancer Brother Social History Tobacco Use Smoking status: Former Packs/day: 1.00 Years: 10.00 Additional pack years: 0.00 Total pack years: 10.00 Types: Cigarettes Quit date: 07/18/1971 Years since quittin.7 Smokeless tobacco: Never Vaping Use Vaping Use: Never used Substance Use Topics Alcohol use: Yes Alcohol/week: 5.0 standard drinks of alcohol Types: 3 Standard drinks or equivalent, 2 Cans of Beer (12oz) per week Comment: weekends beer Drug use: No REVIEW OF SYSTEMS G (more content not included)... [facility] 03-29-2023 Note HNO ID: [id number] Author: Andressa Sam APRN.FLATBED PRESS OPERATOR Service: ? Author Type: Nurse Practitioner Type: Progress Notes Filed: 03/29/2023 3:48 PM Note Text: [facility] Electrophysiology PRIMARY CARE PHYSICIAN: Federico Vigil [address] [place] [address] CHIEF COMPLAINT: Cardiovascular medicine follow-up for arrhythmia. HISTORY OF PRESENT ILLNESS: Mr. Kay is a 77 year old male who presents today for follow-up regarding arrhythmia. The patient has a past medical history significant for hypertension, hyperlipidemia, GERD, CAD s/p PCI to OM, PAD, chronic systolic heart failure (EF 40%), paroxysmal atrial fibrillation, establish care with Dr. Walker in November/2022. He was diagnosed with atrial fibrillation in July/2022 after he presented to his primary care with symptoms of fatigue and tiredness for few months. He was noted to be in atrial fibrillation on twelve-lead EKG and referred to cardiology. He underwent echocardiogram that showed LVEF 40% and mildly dilated left atrium. He underwent nuclear stress test that showed reversible moderate-sized anterior apical and septal defects suggestive of ischemia. He subsequently underwent a left heart catheterization which showed 90% OM lesion and underwent PCI. He was placed on carvedilol and Eliquis for management of his atrial fibrillation. He reduce his caffeine intake and scheduled for a sleep study for history of snoring. He is considered an appropriate candidate for catheter ablation of atrial fibrillation, subsequently he underwent radiofrequency catheter ablation for both atrial fibrillation and typical atrial flutter with Dr. Walker 12/20/2022. He was discharged the next day on amiodarone due to frequent ectopy. Interval History: The patient reports following ablation, the first 5 days were little rough, but since then has been well. The beginning of March, he ran out of the amiodarone, the medication was stopped per Dr. Walker. He underwent 3-month post ablation testing prior to today's appointment which includes an echocardiogram, CT of the chest and 30-day event monitor was applied. He has been exercising 3 days per week at the wellness center in [place], under the supervision of an procurement officer. He checks his heart rhythm daily on the [employer] mobile, reports 2 episodes of atrial fibrillation which he believes only lasted minutes and then resolved, he did not have symptoms associated with these episodes. He denies chest discomfort, palpitations, shortness of breath, lightheadedness, dizziness, near-syncope or syncope. He remains anticoagulated with Eliquis, denies any bleeding issues, does report bruising easily. PAST MEDICAL HISTORY Diagnosis Date Allergic rhinitis, cause unspecified Arthritis Atherosclerotic heart disease of [place] coronary artery without angina pectoris Atrial fibrillation (HCC) Avascular necrosis (HCC) Benign neoplasm of colon CAD (coronary artery disease) Cardiomyopathy (HCC) Carotid artery stenosis Chronic back pain Diverticulosis of colon (without mention of hemorrhage) Dyslipidemia Erectile dysfunction Essential hypertension, benign Fatigue GERD (gastroesophageal reflux disease) Gout, unspecified H/O carotid stenosis Hepatomegaly Internal hemorrhoids without mention of complication Mixed hyperlipidemia Osteoarthritis Other and unspecified hyperlipidemia Peripheral arterial disease (HCC) Prominent abdominal aortic pulsation S/P drug eluting coronary stent placement Snoring Status post catheter ablation of atrial fibrillation 12/21/2022 Patient underwent radiofrequency PVI for both atrial fibrillation as well as typical atrial flutter with Dr. Walker on 12/20/2022. Subclavian arterial stenosis (HCC) Unspecified atrial fibrillation (HCC) PAST SURGICAL HISTORY Procedure Laterality Date ARTHROPLASTY TOTAL SHOULDER 06/2011 Dr. Benitez. ARTHRP ACETBLR/PROX FEM PROSTC AGRFT/ALGRFT 04/2012 Dr. Wood> [facility] ARTHRP KNE CONDYLEANDPLATU MEDIALANDLAT COMPARTMENTS Right COLONOSCOPY W/BIOPSY SINGLE/MULTIPLE 08/24/2006 EGD 12/01/2020 EYE SURGERY HX JOINT REPLACEMENT HX LEFT HEART CATH,PERCUTANEOUS 10/06/2022 OPEN REPAIR OF ROTATOR CUFF ACUTE 10/03/2008 Rotator cuff repair-right PAST SURGICAL HISTORY OF right knee scope PAST SURGICAL HISTORY OF cataract both eyes PAST SURGICAL HISTORY OF N/A 12/20/2022 EPS with Ablation, [facility] TONSILLECTOMY HX TONSILLECTOMY PRIMARY/SECONDARY Tonsillectomy and adnoids Social History Tobacco Use Smoking status: Former Packs/day: 1.00 Years: 10.00 Additional pack years: 0.00 Total pack years: 10.00 Types: Cigarettes Quit date: 07/18/1971 Years since quittin.7 Smokeless tobacco: Never Vaping Use Vaping Use: Never used Substance Use Topics Alcohol use: Yes Alcohol/week: 5 (more content not included)... [facility] 03-29-2023 Instructions Andressa Sam APRN.FLATBED PRESS OPERATOR - 03/29/2023 3:35 PM EDT Atrial Fibrillation What is atrial fibrillation? Atrial fibrillation (also called A-fib) is a fast or irregular heartbeat that starts in the upper chambers of the heart. The abnormal heartbeat affects the ability of the heart to pump blood to the rest of the body. What is the cause? An electrical signal in your heart starts each heartbeat, causing the heart muscle to squeeze (contract). Normally, this signal starts in the upper right chamber of the heart (the right atrium) at a place called the sinus node. The signal then follows normal pathways to the upper left atrium and to the lower chambers of the heart (the ventricles). When you have atrial fibrillation, electrical signals don t start in the normal place in the right atrium and don t travel normally. This can cause the upper chambers of the heart (atria) to beat very fast and not in a normal pattern. Common causes of heart rhythm problems are conditions that damage the heart, like coronary artery disease, heart attack, or heart failure. Problems with the heart valves are another common cause. The heart has 4 valves that open and close with each heartbeat to help blood flow in the right direction through the heart. Other causes of atrial fibrillation include: Health problems, such as a stroke, lung disease, diabetes, overactive thyroid gland, or high blood pressure Abuse of alcohol or drugs, such as cocaine Sometimes no cause can be found. What are the symptoms? Some people don t have any symptoms. When atrial fibrillation does cause symptoms, the most common ones are: Feeling like your heart is beating too fast or too hard or skipping beats or fluttering Feeling tired or weak all the time Symptoms that are more serious include: Chest pain Trouble breathing Lightheadedness or dizziness confusion How is it diagnosed? Your healthcare provider will ask about your symptoms and medical history and examine you. Tests may include: An ECG (also called an EKG), which measures and records your heartbeat. You may have an ECG while you are resting or while you exercise on a treadmill. You may also be asked to wear a small portable ECG monitor for a few days or sometimes a couple weeks. Blood tests An echocardiogram, which uses sound waves (ultrasound) to show the structures of the heart, like the valves How is it treated? The goal of treatment is to help the heart keep a normal rhythm. Your treatment depends on the cause of the atrial fibrillation, how often you have symptoms, and the severity of your symptoms. If you have no symptoms, or your symptoms are fairly mild, you may not need treatment. For some people atrial fibrillation lasts just a short time and the heart goes back to a normal rhythm on its own. If you keep having spells of atrial fibrillation, treatment may help keep you from having so many spells. If a health problem like a leaky heart valve is causing the atrial fibrillation, treating the health problem may also treat the fast or irregular heartbeat. Other possible treatments are: Medicine: Your provider may prescribe medicine to slow or restore a normal heart rate and rhythm. You may also need medicine to prevent blood clots because when the heart beats irregularly, some of the blood can stay in the upper chambers too long. This makes it easier for blood clots to form, increasing your risk of having a stroke or heart attack. Electrical cardioversion: First, you will be given medicine called anesthesia to keep you from feeling pain during the procedure. Then your chest will be given an electrical shock. The electrical shock should make your heart start beating normally again. You may need medicine to keep your heart rhythm normal after this procedure. Ablation: Ablation is a procedure that uses a small tube called a catheter to deliver energy to the inside of the heart. The energy (usually radio waves) scars small areas of heart tissue. The scars block abnormal electrical pathways and help you have a normal heart rhythm. With some types of ablation treatment, you will also need a pacemaker. A pacemaker is an electronic device put under the skin of your chest to help control the heartbeat. How can I take care of myself? Take your medicines as prescribed. Keep your appointments for follow-up blood tests. Make sure your healthcare provider knows about changes in your diet or medical condition. Your provider also needs to know about all prescription and nonprescription medicines, herbs, or supplements that you are taking. Some medicines may interact with your heart medicine or increase your risk for atrial fibrillation. If you want to drink alcohol, ask your provider how much is safe for you to drink. Follow your healthcare provider's instructions. Ask your provider: ?How and when you will hear your test results ?How long it will take to recover ?What activities you should avoid and when you can return to your normal activities ?How to take care of yourself at home ?What symptoms or problems you should watch for and what to do if you have them Make sure you know when you should come back for a checkup. How can I help prevent atrial fibrillation? The best prevention is to have a heart-healthy lifestyle. Keep a healthy weight. Eat a healthy diet that is low in sodium and saturated and trans fat. Stay fit with the right kind of exercise for you. Decrease stress. Don t smoke. Limit your use of alcohol. If you have heart disease or high blood pressure, follow your healthcare provider's instructions for treatment. Copyright 2014 [employer] and/or one of its subsidiaries. All rights reserved. documented in this encounter [facility] 03-29-2023 History of Present illness Narrative Images from the original note were not included. [facility] Electrophysiology PRIMARY CARE PHYSICIAN: Federico Vigil [address] [place] [address] CHIEF COMPLAINT: Cardiovascular medicine follow-up for arrhythmia. HISTORY OF PRESENT ILLNESS: Mr. Kay is a 77 year old male who presents today for follow-up regarding arrhythmia. The patient has a past medical history significant for hypertension, hyperlipidemia, GERD, CAD s/p PCI to OM, PAD, chronic systolic heart failure (EF 40%), paroxysmal atrial fibrillation, establish care with Dr. Walker in November/2022. He was diagnosed with atrial fibrillation in July/2022 after he presented to his primary care with symptoms of fatigue and tiredness for few months. He was noted to be in atrial fibrillation on twelve-lead EKG and referred to cardiology. He underwent echocardiogram that showed LVEF 40% and mildly dilated left atrium. He underwent nuclear stress test that showed reversible moderate-sized anterior apical and septal defects suggestive of ischemia. He subsequently underwent a left heart catheterization which showed 90% OM lesion and underwent PCI. He was placed on carvedilol and Eliquis for management of his atrial fibrillation. He reduce his caffeine intake and scheduled for a sleep study for history of snoring. He is considered an appropriate candidate for catheter ablation of atrial fibrillation, subsequently he underwent radiofrequency catheter ablation for both atrial fibrillation and typical atrial flutter with Dr. Walker 12/20/2022. He was discharged the next day on amiodarone due to frequent ectopy. Interval History: The patient reports following ablation, the first 5 days were little rough, but since then has been well. The beginning of March, he ran out of the amiodarone, the medication was stopped per Dr. Walker. He underwent 3-month post ablation testing prior to today's appointment which includes an echocardiogram, CT of the chest and 30-day event monitor was applied. He has been exercising 3 days per week at the wellness center in [place], under the supervision of an procurement officer. He checks his heart rhythm daily on the [employer] mobile, reports 2 episodes of atrial fibrillation which he believes only lasted minutes and then resolved, he did not have symptoms associated with these episodes. He denies chest discomfort, palpitations, shortness of breath, lightheadedness, dizziness, near-syncope or syncope. He remains anticoagulated with Eliquis, denies any bleeding issues, does report bruising easily. PAST MEDICAL HISTORY Diagnosis Date Allergic rhinitis, cause unspecified Arthritis Atherosclerotic heart disease of [place] coronary artery without angina pectoris Atrial fibrillation (HCC) Avascular necrosis (HCC) Benign neoplasm of colon CAD (coronary artery disease) Cardiomyopathy (HCC) Carotid artery stenosis Chronic back pain Diverticulosis of colon (without mention of hemorrhage) Dyslipidemia Erectile dysfunction Essential hypertension, benign Fatigue GERD (gastroesophageal reflux disease) Gout, unspecified H/O carotid stenosis Hepatomegaly Internal hemorrhoids without mention of complication Mixed hyperlipidemia Osteoarthritis Other and unspecified hyperlipidemia Peripheral arterial disease (HCC) Prominent abdominal aortic pulsation S/P drug eluting coronary stent placement Snoring Status post catheter ablation of atrial fibrillation 12/21/2022 Patient underwent radiofrequency PVI for both atrial fibrillation as well as typical atrial flutter with Dr. Walker on 12/20/2022. Subclavian arterial stenosis (HCC) Unspecified atrial fibrillation (HCC) PAST SURGICAL HISTORY Procedure Laterality Date ARTHROPLASTY TOTAL SHOULDER 06/2011 Dr. Benitez. ARTHRP ACETBLR/PROX FEM PROSTC AGRFT/ALGRFT 04/2012 Dr. Wood> [facility] ARTHRP KNE CONDYLE&PLATU MEDIAL&LAT COMPARTMENTS Right COLONOSCOPY W/BIOPSY SINGLE/MULTIPLE 08/24/2006 EGD 12/01/2020 EYE SURGERY HX JOINT REPLACEMENT HX LEFT HEART CATH,PERCUTANEOUS 10/06/2022 OPEN REPAIR OF ROTATOR CUFF ACUTE 10/03/2008 Rotator cuff repair-right PAST SURGICAL HISTORY OF right knee scope PAST SURGICAL HISTORY OF cataract both eyes PAST SURGICAL HISTORY OF N/A 12/20/2022 EPS with Ablation, [facility] TONSILLECTOMY HX TONSILLECTOMY PRIMARY/SECONDARY <AGE 12 Tonsillectomy and adnoids Social History Tobacco Use Smoking status: Former Packs/day: 1.00 Years: 10.00 Additional pack years: 0.00 Total pack years: 10.00 Types: Cigarettes Quit date: 07/18/1971 Years since quittin.7 Smokeless tobacco: Never Vaping Use Vaping Use: Never used Substance Use Topics Alcohol use: Yes Alcohol/week: 5.0 standard drinks of alcohol Types: 3 Standard drinks or equivalent, 2 Cans of Beer (12oz) per week Comment: weekends beer Drug use: No Family History Problem Relation Age of Onset Cancer Mother KIDNEY Coronary Artery Disease Mother Lipids Mother Stroke Mother Heart disease Mother Cancer Father LUNG other (fibromyalgia) Sister Prostate Cancer Brother ALLERGIES Allergen Reactions Indocin [Indomethac* Diarrhea Mobic [Meloxicam] Diarrhea MEDICATIONS: carvedilol (COREG) 6.25 mg tablet Take 1 tablet by mouth twice daily. lisinopril (ZESTRIL) 5 mg tablet Take 1 tablet by mouth once daily. predniSONE (DELTASONE) 10 mg tablet Take 1 tablet by mouth as needed. hydrOXYchloroQUINE (PLAQUENIL) 200 mg tablet Take 200 mg by mouth twice daily. simvastatin (ZOCOR) 20 mg tablet Take 1 tablet by mouth once daily. multivit with minerals/lutein (MULTIVITAMIN 50 PLUS ORAL) Take 1 tablet by mouth once daily. allopurinol (ZYLOPRIM) 100 mg tablet TAKE 1 TABLET BY MOUTH TWICE A DAY apixaban (ELIQUIS) 5 mg tab(s) Take 5 mg by mouth twice daily. clopidogrel (PLAVIX) 75 mg tablet Take 75 mg by mouth once daily. Melatonin 5 mg cap Take 5 mg by mouth daily at bedtime. furosemide (LASIX) 40 mg tablet Take 1 tablet by mouth once daily. sildenafil (VIAGRA) 100 mg tablet Take 1/2 to 1 tablet by mouth 1 hour prior to anticipated intercourse. lisinopril 2.5 mg tablet Take 5 mg by mouth once daily. (Patient not taking: Reported on 03/29/2023) JARDIANCE 10 mg tablet Take 10 mg by mouth once daily. (Patient not taking: Reported on 03/29/2023) carvedilol (COREG) 3.125 mg tablet Take 6.25 mg by mouth twice daily. (Patient not taking: Reported on 03/29/2023) REVIEW OF SYSTEMS: Review of Systems Constitutional: Negative for chills, diaphoresis and fever. HENT: Negative for nosebleeds. Respiratory: Negative for cough, hemoptysis, sputum production, shortness of breath and wheezing. Cardiovascular: Negative for chest pain, palpitations, orthopnea, leg swelling and PND. Gastrointestinal: Negative for blood in stool. Genitourinary: Negative for hematuria. Musculoskeletal: Negative for myalgias. Neurological: Negative for dizziness, loss of consciousness and headaches. Endo/Heme/Allergies: Bruises/bleeds easily. PHYSICAL EXAMINATION: BP 132/49 Pulse 66 Ht 5' 10 (1.78m) Wt 173 lb 12.8 oz (78.8kg) SpO2 96% BMI 24.94 kg/(m^2). Physical Exam Vitals and nursing note reviewed. Constitutional: General: He is not in acute distress. Appearance: He is not diaphoretic. HENT: Head: Normocephalic and atraumatic. Neck: Vascular: No JVD. Cardiovascular: Rate and Rhythm: Normal rate and regular rhythm. Pulses: Radial pulses are 2+ on the right side and 2+ on the left side. Posterior tibial pulses are 2+ on the right side and 2+ on the left side. Heart sounds: S1 normal and S2 normal. No murmur heard. No gallop. Pulmonary: Effort: Pulmonary effort is normal. No respiratory distress. Breath sounds: Normal breath sounds. No wheezing or rales. Chest: Chest wall: No tenderness. Musculoskeletal: General: Normal range of motion. Cervical back: Neck supple. Right lower leg: No edema. Left lower leg: No edema. Skin: General: Skin is warm and dry. Nails: There is no clubbing. Neurological: Mental Status: He is alert and oriented to person, place, and time. Psychiatric: Mood and Affect: Mood and affect normal. Behavior: Behavior normal. CARDIOVASCULAR MEDICINE TESTING: Echocardiogram: 03/29/2023, results pending. 30-day event monitor: Applied 03/29/2023. CT Chest Scan: 03/29/2023, results pending. Echocardiogram: 08/31/2022 CONCLUSIONS: - Exam indication: Atrial fibrillation - The left ventricle is normal in size. Left ventricular systolic function is moderately decreased. EF = 40 5% (2D 4-ch.) Left ventricular diastolic function was not evaluated due to AF. Global hypokinesis. - The right ventricle is normal in size. Right ventricular systolic function is normal. - The left atrial cavity is mildly dilated. - There is mild (1-2+) mitral regurgitation. - There is mild (1+) tricuspid gestation. - The patient has not had a prior CC echocardiographic exam for comparison. I have personally reviewed the Electrocardiogram: 03/29/2023 -sinus rhythm with occasional PVCs, RBBB, LAFB, 65 bpm, NH 198 ms, QRS 130 ms, QT/QTc 452/470 ms. PLAN AND RECOMMENDATIONS: ASSESSMENT/PLAN: 1. Status post catheter ablation of atrial fibrillation - ICD9: V45.89, ICD10: Z98.890 (primary diagnosis) 2. Status post ablation of atrial flutter - ICD9: V45.89, ICD10: Z98.890, Z86.79 3. Paroxysmal atrial fibrillation (HCC) - ICD9: 427.31, ICD10: I48.0 -s/p radiofrequency catheter ablation of atrial fibrillation and typical atrial flutter with Dr. Walker 12/20/2022. He underwent 3-month post ablation testing prior to today's appointment that includes a CT of the chest, echocardiogram and 30-day event monitor was applied. He seems to be doing well since the ablation, he will continue carvedilol 6.25 mg twice daily and Eliquis 5 mg twice daily. He will follow-up in [address] Walker or [place], or call sooner should any issues arise, patient and his spouse verbalized understanding. 4. [facility] current use of antiarrhythmic drug - ICD9: V58.69, ICD10: Z79.899 -amiodarone; indication: Paroxysmal atrial fibrillation, amiodarone was discontinued at the beginning of this month. In the future, if patient needs antiarrhythmic drug therapy, will consider dofetilide, as discussed with Dr. Walker. 5. [facility] (current) use of anticoagulants - ICD9: V58.61, ICD10: Z79.01 6. At risk for stroke - ICD9: V15.89, ICD10: Z91.89 -paroxysmal atrial fibrillation, continue Eliquis 5 mg twice daily, no signs of bleeding. CHADS2-Vasc Score Breakdown 5 Total Score 2 Age >= 75 years old 1 History of CHF 1 History of hypertension 1 History of vascular disease Return in about 3 months (around 06/28/2023) for Dr. Walker or AL. Andressa Sam APRN.CNP Medical Decision Making: Problems: Moderate: 2+ stable chronic illnesses Data: Unique source(s) for external note(s) reviewed: 2 Unique test result(s) reviewed: 3+ Unique test(s) ordered: 1 Risk: Moderate: Drug management and Moderate risk from testing/treatment Medical Decision Making Level: 4 - Moderate The above note was partially created using a dictation recognition software. A reasonable attempt has been made to correct any errors. documented in this encounter [facility] 03-29-2023 Nurse Note No cardiac complaints today. Veronica Rosas MA documented in this encounter [facility] 03-29-2023 Nurse Note Applied event monitor. Pt verbalized understanding of monitor use and appropriately demonstrated recording a baseline. Spouse present for instruction. documented in this encounter [facility] 03-29-2023 Note HNO ID: [id number] Author: Tatianna Benavidez RT(R) Service: Radiology Author Type: Technologist Type: Progress Notes Filed: 03/29/2023 8:28 AM Note Text: Radiology Service Progress Note DATE OF SERVICE: March 29, 2023 TIME: 8:27 AM PATIENT IDENTITY VERIFICATION COMPLETED USING TWO (2) STANDARD IDENTIFIERS: Name and Date of confirmed by patient verbally and Name and Date of confirmed by identification band. FALL SCREENING: Has the patient had 2 falls in the last year or 1 fall with injury or currently using an Ambulatory Assistive Device (Walker, Cane, Wheelchair, Crutches, etc.)? No PATIENT GENDER DATA: Male PATIENT RELEVANT IMPLANT DATA REVIEWED: Yes ALLERGIES: Reviewed and unchanged CONTRAST ALLERGY: NO. EXAM: CT -CONTRAST INDUCED NEPHROPATHY RISK FACTORS: Patient age > 60 years CREATININE: Creatinine Date Value Ref Range Status 12/21/2022 1.10 0.73 - 1.22 mg/dL Final 12/20/2022 0.99 0.73 - 1.22 mg/dL Final 07/21/2022 1.08 0.73 - 1.22 mg/dL Final Estimated Glomerular Filtration Rate Date Value Ref Range Status 12/21/2022 69 >=60 mL/min/1.73m? Final Comment: Estimated Glomerular Filtration Rate (eGFR) is calculated using the 2020 CKD-EPI creatinine equation. This equation utilizes serum creatinine, sex, and age as parameters. The creatinine assay has traceable calibration to isotope dilution-mass spectrometry. Refer to KDIGO guidelines for clinical interpretation. In patients with unstable renal function, e.g. those with acute kidney injury, the eGFR may not accurately reflect actual GFR. eGFR- Date Value Ref Range Status 04/09/2021 >60 Final P.O.C.T. RESULTS: POC done: Yes, See Lab Tab March 29, 2023 TREATMENT: N/A PERIPHERAL IV DATA: Ambulatory: A peripheral IV was started in the Right antecubital site with a Angio cath: 20 gauge. RADIOLOGY DEPARTMENT: CT; Exam(s) Completed: Cardiac SIGNATURE: RT Flory(R) PATIENT NAME: Shelton Kay DATE: March 29, 2023 TIME: 8:27 AM [facility] 03-29-2023 History of Present illness Narrative Radiology Service Progress Note DATE OF SERVICE: March 29, 2023 TIME: 8:27 AM PATIENT IDENTITY VERIFICATION COMPLETED USING TWO (2) STANDARD IDENTIFIERS: Name and Date of confirmed by patient verbally and Name and Date of confirmed by identification band. FALL SCREENING: Has the patient had 2 falls in the last year or 1 fall with injury or currently using an Ambulatory Assistive Device (Walker, Cane, Wheelchair, Crutches, etc.)? No PATIENT GENDER DATA: Male PATIENT RELEVANT IMPLANT DATA REVIEWED: Yes ALLERGIES: Reviewed and unchanged CONTRAST ALLERGY: NO. EXAM: CT -CONTRAST INDUCED NEPHROPATHY RISK FACTORS: Patient age > 60 years CREATININE: Creatinine Date Value Ref Range Status 12/21/2022 1.10 0.73 - 1.22 mg/dL Final 12/20/2022 0.99 0.73 - 1.22 mg/dL Final 07/21/2022 1.08 0.73 - 1.22 mg/dL Final Estimated Glomerular Filtration Rate Date Value Ref Range Status 12/21/2022 69 >=60 mL/min/1.73m Final Comment: Estimated Glomerular Filtration Rate (eGFR) is calculated using the 2020 CKD-EPI creatinine equation. This equation utilizes serum creatinine, sex, and age as parameters. The creatinine assay has traceable calibration to isotope dilution-mass spectrometry. Refer to KDIGO guidelines for clinical interpretation. In patients with unstable renal function, e.g. those with acute kidney injury, the eGFR may not accurately reflect actual GFR. eGFR- Date Value Ref Range Status 04/09/2021 >60 Final P.O.C.T. RESULTS: POC done: Yes, See Lab Tab March 29, 2023 TREATMENT: N/A PERIPHERAL IV DATA: Ambulatory: A peripheral IV was started in the Right antecubital site with a Angio cath: 20 gauge. RADIOLOGY DEPARTMENT: CT; Exam(s) Completed: Cardiac SIGNATURE: RT Flory(R) PATIENT NAME: Shelton Kay DATE: March 29, 2023 TIME: 8:27 AM documented in this encounter [facility] 03-25-2023 Note HNO ID: [id number] Author: Elena Watkins APRN.FLATBED PRESS OPERATOR Service: ? Author Type: Nurse Practitioner Type: Progress Notes Filed: 03/25/2023 11:33 AM Note Text: Shelton Kay is a 77 year old male presents for yearly evaluation of carotid disease. He is a prior [facility] pt, and established care with Dr. Caba a year ago at the [facility], following [facility]'s usp. Annual Carotid US was requested. Pt has been concerned with some headaches and blurred vision. Explains that he's a lot of health issues since last June. Diagnosed with a-fib (asymptomatic), had a cardiac ablation, and had a heart cath with PCI. Recent Carotid US, done 02/15/23 showed: R CCA 50-99% stenosis, R ICA 20-39% stenosis, and R SCA 50-99% stenosis. L CCA 50-99% stenosos, L ICA 60-79% stenosis, L SCA 50-99% stenosis. And no evidence of reversal of flow in the vertebrals. SYMPTOMS: No notable symptoms - MAURER AND blurred vision not symptomatic of ICAs. We reviewed the symptoms of TIA/stroke including weakness or numbness in an extremity, slurred speech, facial droop, amaurosis fugax, and the pt does not have any symptoms. The pt understands that he/she should call or go to the ED should any of these symptoms develop and that delay could result in stroke. We had an extensive discussion about carotid stenosis, risk factors, rationale for treatment and types of treatment including medical mgmt, carotid stent and carotid endarterectomy. PATIENT'S CURRENT TREATMENT: Eliquis AND Plavix Statin: Yes Patient does not have a history of a CVA. Patient has not had previous carotid surgery HISTORIES: PAST MEDICAL HISTORY Diagnosis Date Allergic rhinitis, cause unspecified Arthritis Atherosclerotic heart disease of [place] coronary artery without angina pectoris Atrial fibrillation (HCC) Avascular necrosis (HCC) Benign neoplasm of colon CAD (coronary artery disease) Cardiomyopathy (HCC) Carotid artery stenosis Chronic back pain Diverticulosis of colon (without mention of hemorrhage) Dyslipidemia Erectile dysfunction Essential hypertension, benign Fatigue GERD (gastroesophageal reflux disease) Gout, unspecified H/O carotid stenosis Hepatomegaly Internal hemorrhoids without mention of complication Mixed hyperlipidemia Osteoarthritis Other and unspecified hyperlipidemia Peripheral arterial disease (HCC) Prominent abdominal aortic pulsation S/P drug eluting coronary stent placement Snoring Status post catheter ablation of atrial fibrillation 12/21/2022 Patient underwent radiofrequency PVI for both atrial fibrillation as well as typical atrial flutter with Dr. Walker on 12/20/2022. Subclavian arterial stenosis (HCC) Unspecified atrial fibrillation (HCC) PAST SURGICAL HISTORY Procedure Laterality Date ARTHROPLASTY TOTAL SHOULDER 06/2011 Dr. Benitez. ARTHRP ACETBLR/PROX FEM PROSTC AGRFT/ALGRFT 04/2012 Dr. Wood> [facility]. ARTHRP KNE CONDYLEANDPLATU MEDIALANDLAT COMPARTMENTS Right COLONOSCOPY W/BIOPSY SINGLE/MULTIPLE 08/24/2006 EGD 12/01/2020 EYE SURGERY HX JOINT REPLACEMENT HX LEFT HEART CATH,PERCUTANEOUS 10/06/2022 OPEN REPAIR OF ROTATOR CUFF ACUTE 10/03/2008 Rotator cuff repair-right PAST SURGICAL HISTORY OF right knee scope PAST SURGICAL HISTORY OF cataract both eyes PAST SURGICAL HISTORY OF N/A 12/20/2022 EPS with Ablation, [facility] TONSILLECTOMY HX TONSILLECTOMY PRIMARY/SECONDARY Tonsillectomy and adnoids Social History Tobacco Use Smoking status: Former Packs/day: 1.00 Years: 10.00 Additional pack years: 0.00 Total pack years: 10.00 Types: Cigarettes Quit date: 07/18/1971 Years since quittin.7 Smokeless tobacco: Never Vaping Use Vaping Use: Never used Substance Use Topics Alcohol use: Yes Alcohol/week: 5.0 standard drinks of alcohol Types: 3 Standard drinks or equivalent, 2 Cans of Beer (12oz) per week Comment: daily beer Drug use: No MEDICATIONS: Current Outpatient Medications Medication Sig lisinopril 2.5 mg tablet Take 5 mg by mouth once daily. predniSONE (DELTASONE) 10 mg tablet Take 1 tablet by mouth as needed. hydrOXYchloroQUINE (PLAQUENIL) 200 mg tablet Take 200 mg by mouth twice daily. simvastatin (ZOCOR) 20 mg tablet Take 1 tablet by mouth once daily. multivit with minerals/lutein (MULTIVITAMIN 50 PLUS ORAL) Take 1 tablet by mouth once daily. JARDIANCE 10 mg tablet Take 10 mg by mouth once daily. carvedilol (COREG) 3.125 mg tablet Take 6.25 mg by mouth twice daily. allopurinol (ZYLOPRIM) 100 mg tablet TAKE 1 TABLET BY MOUTH TWICE A DAY apixaban (ELIQUIS) 5 mg tab(s) Take 5 mg by mouth twice daily. clopidogrel (PLAVIX) 75 mg tablet Take 75 mg by mouth once daily. Melatonin 5 mg cap Take 5 mg by mouth daily at bedtime. furosemide (LASIX) 40 mg tablet Take 1 tablet by mouth once daily. sildenafil (VIAGRA) 100 mg tablet Take 1/2 to 1 tablet by mouth 1 hour prior to anticipated interco (more content not included)... [facility] 03-18-2023 Miscellaneous Notes Left message for to call [facility] for update and new order. [facility] phone number provided. Elena Foster LPN He can stop amio now. Patient's request for medication is as follows: Requested Prescriptions Pending Prescriptions Disp Refills amiodarone (PACERONE) 200 mg tablet [Pharmacy Med Name: AMIODARONE HCL 200 MG TABLET] 90 tablet 0 Sig: Take 1 tablet by mouth once daily. Last seen 11/29/2022. Follow up scheduled for 03/29/2023. Prescription(s) as above. Please process accordingly. Elena Foster LPN documented in this encounter [facility] 03-17-2023 Miscellaneous Notes Consult has been signed, printed, and faxed to [place] [facility]. Ruth Perez APRN.FLATBED PRESS OPERATOR Spouse ([place]) calls and reports that the recommendation would be for a referral to pulmonology and asking if provider would send it to [facility]. Pended consult for a-fib with excessive daytime sleepiness per spouse's request. Please fax to [phone] if provider agrees. Precious Henry RN If Sleep Lab states that this this is not covered by pt's insurance and Cardio wanted this completed, what do you suggest? Yasmeen Oliveros Ma [facility] called and the office notes they received do not support the order for sleep study. The phone number shows the sander and buffer wanted pt to have this done. Per the Sleep lab pt will need a face to face with documentation from pcp is needed. Please contact pt to schedule a face to face apt. After this has been done please fax office note to [facility]. Need documented signs and symptoms that qualify pt for the sleep study. Elif Godoy LPN documented in this encounter [facility] 02-21-2023 Miscellaneous Notes Noted and agree with plan. Thank you, Elena Watkins APRN.LIZET Spouse, Azucena, calling in to Nurse's Line to advise that patient is experiencing head pain and blurred vision. Patient went to his risk consultant/opthalmology who cleared him there. Spouse states there was a change on patient's carotid but patient also had ablation for A-fib by Dr. Joya (sp?). Patient wasn't due for his carotid follow-up until April however they got an early appointment, March 17, 2023 at 9:30am. This Nurse returned call to confirm the March 17, 2023 appointment and to notify us if any changes or concerns and always, if patient's symptoms worsen, to get him to the closest medical facility to be evaluated. Haley Renteria LPN February 21, 2023 1:28 PM documented in this encounter [facility] 01-25-2023 Miscellaneous Notes LMOM to schedule with Dr Caba in [place] Annual F/UP for Carotid Stenosis, Asymptomatic, Bilat with US CAROTID BILAT 02/15/2023 *DOLLY SCHULER* documented in this encounter [facility] 01-17-2023 Note HNO ID: [id number] Author: Federico Vigil MD Service: ? Author Type: Physician Type: Progress Notes Filed: 01/17/2023 5:59 PM Note Text: Chief Complaint Follow up HPI Shelton Kay is a 77 year old male who presents here today for a follow up visit. Pt here today with his , Azucena to discuss his recent health changes. GI/Uro - Denies any stomach, bowel or urinary issues. ED - Takes Viagra prn for ED. GERD - Stable with use of Protonix 20 mg daily. HTN - Checks BP at home, noting his BP has been low in the 110/50's. Denies any chest pain, sob or dizziness. Pt missed formal cardiac rehab due to the inflammatory issues he was having. He's now doing a cardiac work out he received from [employer]. On current regimen of Lisinopril 2.5 mg once daily in addition to Coreg 3.125 mg 2 tab po bid, Jardiance 10 mg once daily, Eliquis 5 mg bid, Amiodarone 200 mg once daily, Lasix 40 mg prn, Aldactone 25 mg once daily and Plavix 75 mg once daily. Afib - Is followed by [facility], had new onset of Afib earlier this year. Pt had cardiac work up completed with stress test, heart cath with 2 stents placed in September. Pt was then referred for ablation, which was completed on 12/20/22. Pt was seen in [place] by Dr. Walker. Has f/u with Cardio. Notes that he's had two episodes of going back into afib since surgery but lasted a very short duration. Lipids - Stable on current regimen of Zocor 20 mg once daily, tolerating well. Does try to watch his diet and stay active. Gout - Following with Podiatry. On current regimen of Allopurinol 100 mg bid. Denies any recent issues. Rheum - Follows with Dr. Seo. Currently taking Plaquenil 200 mg bid and Prednisone 10 mg once daily for inflammatory arthritis; she felt it was more than just gout. Was having increased inflammatory issues in ankles and feet, but is doing much better. This is doing much better. Plan is to slowly wean down off of Prednisone while building up Plaquenil. brought intermittent FMLA forms to be completed to take pt to Doctor appts. Has recently had to miss quite a bit due to his ongoing health issues. Forms completed for intermittent leave 1 episode/week, 2 days/episode. Complains of numbness along right side neck since ablation. Getting better. Noticed rah in right groin today; not itchy. Past medical history, appointments, medications, allergies reviewed. Previous Medical History PAST MEDICAL HISTORY Diagnosis Date Allergic rhinitis, cause unspecified Arthritis Atherosclerotic heart disease of [place] coronary artery without angina pectoris Atrial fibrillation (HCC) Avascular necrosis (HCC) Benign neoplasm of colon CAD (coronary artery disease) Cardiomyopathy (HCC) Carotid artery stenosis Chronic back pain Diverticulosis of colon (without mention of hemorrhage) Dyslipidemia Erectile dysfunction Essential hypertension, benign Fatigue GERD (gastroesophageal reflux disease) Gout, unspecified H/O carotid stenosis Hepatomegaly Internal hemorrhoids without mention of complication Mixed hyperlipidemia Osteoarthritis Other and unspecified hyperlipidemia Peripheral arterial disease (HCC) Prominent abdominal aortic pulsation S/P drug eluting coronary stent placement Snoring Status post catheter ablation of atrial fibrillation 12/21/2022 Patient underwent radiofrequency PVI for both atrial fibrillation as well as typical atrial flutter with Dr. Walker on 12/20/2022. Subclavian arterial stenosis (HCC) Unspecified atrial fibrillation (HCC) Previous Surgical History PAST SURGICAL HISTORY Procedure Laterality Date ARTHROPLASTY TOTAL SHOULDER 06/2011 Dr. Benitez. ARTHRP ACETBLR/PROX FEM PROSTC AGRFT/ALGRFT 04/2012 Dr. Wood> [facility] ARTHRP KNE CONDYLEANDPLATU MEDIALANDLAT COMPARTMENTS Right COLONOSCOPY W/BIOPSY SINGLE/MULTIPLE 08/24/2006 EGD 12/01/2020 EYE SURGERY HX JOINT REPLACEMENT HX LEFT HEART CATH,PERCUTANEOUS 10/06/2022 OPEN REPAIR OF ROTATOR CUFF ACUTE 10/03/2008 Rotator cuff repair-right PAST SURGICAL HISTORY OF right knee scope PAST SURGICAL HISTORY OF cataract both eyes TONSILLECTOMY HX TONSILLECTOMY PRIMARY/SECONDARY Tonsillectomy and adnoids Family History FAMILY HISTORY Problem Relation Age of Onset Cancer Mother KIDNEY Coronary Artery Disease Mother Lipids Mother Stroke Mother Heart disease Mother Cancer Father LUNG other (fibromyalgia) Sister Prostate Cancer Brother Patient Allergies ALLERGIES Allergen Reactions Indocin [Indomethac* Diarrhea Mobic [Meloxicam] Diarrhea Current Medications Current Outpatient Medications on File Prior to Visit Medication Sig simvastatin (ZOCOR) 20 mg tablet Take 1 tablet by mouth once daily. amiodarone (PACERONE) 200 mg tablet Take 1 tablet by mouth three times daily for 21 doses. TID for 7 days followed by 200 mg once daily for 3 months (Total of 111 tabs (more content not included)... [facility] 01-17-2023 History of Present illness Narrative Chief Complaint Follow up HPI Shelton Kay is a 77 year old male who presents here today for a follow up visit. Pt here today with his , Azucena to discuss his recent health changes. GI/Uro - Denies any stomach, bowel or urinary issues. ED - Takes Viagra prn for ED. GERD - Stable with use of Protonix 20 mg daily. HTN - Checks BP at home, noting his BP has been low in the 110/50's. Denies any chest pain, sob or dizziness. Pt missed formal cardiac rehab due to the inflammatory issues he was having. He's now doing a cardiac work out he received from [employer]. On current regimen of Lisinopril 2.5 mg once daily in addition to Coreg 3.125 mg 2 tab po bid, Jardiance 10 mg once daily, Eliquis 5 mg bid, Amiodarone 200 mg once daily, Lasix 40 mg prn, Aldactone 25 mg once daily and Plavix 75 mg once daily. Afib - Is followed by [facility], had new onset of Afib earlier this year. Pt had cardiac work up completed with stress test, heart cath with 2 stents placed in September. Pt was then referred for ablation, which was completed on 12/20/22. Pt was seen in [place] by Dr. Walker. Has f/u with Cardio. Notes that he's had two episodes of going back into afib since surgery but lasted a very short duration. Lipids - Stable on current regimen of Zocor 20 mg once daily, tolerating well. Does try to watch his diet and stay active. Gout - Following with Podiatry. On current regimen of Allopurinol 100 mg bid. Denies any recent issues. Rheum - Follows with Dr. Seo. Currently taking Plaquenil 200 mg bid and Prednisone 10 mg once daily for inflammatory arthritis; she felt it was more than just gout. Was having increased inflammatory issues in ankles and feet, but is doing much better. This is doing much better. Plan is to slowly wean down off of Prednisone while building up Plaquenil. brought intermittent FMLA forms to be completed to take pt to Doctor appts. Has recently had to miss quite a bit due to his ongoing health issues. Forms completed for intermittent leave 1 episode/week, 2 days/episode. Complains of numbness along right side neck since ablation. Getting better. Noticed rah in right groin today; not itchy. Past medical history, appointments, medications, allergies reviewed. Previous Medical History PAST MEDICAL HISTORY Diagnosis Date Allergic rhinitis, cause unspecified Arthritis Atherosclerotic heart disease of [place] coronary artery without angina pectoris Atrial fibrillation (HCC) Avascular necrosis (HCC) Benign neoplasm of colon CAD (coronary artery disease) Cardiomyopathy (HCC) Carotid artery stenosis Chronic back pain Diverticulosis of colon (without mention of hemorrhage) Dyslipidemia Erectile dysfunction Essential hypertension, benign Fatigue GERD (gastroesophageal reflux disease) Gout, unspecified H/O carotid stenosis Hepatomegaly Internal hemorrhoids without mention of complication Mixed hyperlipidemia Osteoarthritis Other and unspecified hyperlipidemia Peripheral arterial disease (HCC) Prominent abdominal aortic pulsation S/P drug eluting coronary stent placement Snoring Status post catheter ablation of atrial fibrillation 12/21/2022 Patient underwent radiofrequency PVI for both atrial fibrillation as well as typical atrial flutter with Dr. Walker on 12/20/2022. Subclavian arterial stenosis (HCC) Unspecified atrial fibrillation (HCC) Previous Surgical History PAST SURGICAL HISTORY Procedure Laterality Date ARTHROPLASTY TOTAL SHOULDER 06/2011 Dr. Benitez. ARTHRP ACETBLR/PROX FEM PROSTC AGRFT/ALGRFT 04/2012 Dr. Wood> [facility]. ARTHRP KNE CONDYLE&PLATU MEDIAL&LAT COMPARTMENTS Right COLONOSCOPY W/BIOPSY SINGLE/MULTIPLE 08/24/2006 EGD 12/01/2020 EYE SURGERY HX JOINT REPLACEMENT HX LEFT HEART CATH,PERCUTANEOUS 10/06/2022 OPEN REPAIR OF ROTATOR CUFF ACUTE 10/03/2008 Rotator cuff repair-right PAST SURGICAL HISTORY OF right knee scope PAST SURGICAL HISTORY OF cataract both eyes TONSILLECTOMY HX TONSILLECTOMY PRIMARY/SECONDARY <AGE 12 Tonsillectomy and adnoids Family History FAMILY HISTORY Problem Relation Age of Onset Cancer Mother KIDNEY Coronary Artery Disease Mother Lipids Mother Stroke Mother Heart disease Mother Cancer Father LUNG other (fibromyalgia) Sister Prostate Cancer Brother Patient Allergies ALLERGIES Allergen Reactions Indocin [Indomethac* Diarrhea Mobic [Meloxicam] Diarrhea Current Medications Current Outpatient Medications on File Prior to Visit Medication Sig simvastatin (ZOCOR) 20 mg tablet Take 1 tablet by mouth once daily. amiodarone (PACERONE) 200 mg tablet Take 1 tablet by mouth three times daily for 21 doses. TID for 7 days followed by 200 mg once daily for 3 months (Total of 111 tabs) lisinopril (ZESTRIL) 5 mg tablet Take 5 mg by mouth once daily. multivit with minerals/lutein (MULTIVITAMIN 50 PLUS ORAL) Take 1 tablet by mouth once daily. JARDIANCE 10 mg tablet Take 10 mg by mouth once daily. predniSONE (DELTASONE) 10 mg tablet Take 1.2 tablets by mouth as needed. carvedilol (COREG) 3.125 mg tablet Take 6.25 mg by mouth twice daily. allopurinol (ZYLOPRIM) 100 mg tablet TAKE 1 TABLET BY MOUTH TWICE A DAY apixaban (ELIQUIS) 5 mg tab(s) Take 5 mg by mouth twice daily. clopidogrel (PLAVIX) 75 mg tablet Take 75 mg by mouth once daily. Melatonin 5 mg cap Take 5 mg by mouth daily at bedtime. furosemide (LASIX) 40 mg tablet Take 1 tablet by mouth once daily. pantoprazole DR (PROTONIX) 20 mg tablet Take 1 tablet by mouth daily before breakfast. Take on empty stomach, 1/2 hr before meal. sildenafil (VIAGRA) 100 mg tablet Take 1/2 to 1 tablet by mouth 1 hour prior to anticipated intercourse. Current Facility-Administered Medications on File Prior to Visit Medication perflutren lipid microspheres 1.3 mL in NaCl (PF) 0.9% 10 mL injection (DEFINITY) sodium chloride 0.9 % (flush) 10 mL (BD POSIFLUSH) perflutren lipid microspheres 1.3 mL in NaCl (PF) 0.9% 10 mL injection (DEFINITY) sodium chloride 0.9 % (flush) 10 mL (BD POSIFLUSH) Social History Social History Tobacco Use Smoking status: Former Packs/day: 1.00 Years: 10.00 Pack years: 10.00 Types: Cigarettes Quit date: 07/18/1971 Years since quittin.5 Smokeless tobacco: Never Vaping Use Vaping Use: Never used Substance Use Topics Alcohol use: Yes Alcohol/week: 5.0 standard drinks Types: 3 Standard drinks or equivalent, 2 Cans of Beer (12oz) per week Comment: daily beer Drug use: No EXAM: BP 122/60 (BP Site: Left Arm, BP Position: Sitting, BP Cuff Size: Regular Adult) Pulse 80 Resp 16 Wt 76.7 kg (169 lb) BMI 24.25 kg/m General Appearance: Well appearing, alert, in no acute distress, well-hydrated, well nourished.. Skin: mildly erythematous rash right groin, circular, red edges. Neck: good ROM, subjective numbness right posterior neck. Lungs: Lungs clear to auscultation. No wheezing, rhonchi, rales.. Heart: RRR without murmur, gallop, or rubs. No ectopy. Health Maintenance List SHINGRIX VACCINE(1 of 2) Never done DTAP,TDAP,TD(2 - Td or Tdap) due on 10/05/2016 ADVANCE DIRECTIVE DISCUSSION due on 07/18/2022 ANNUAL PCP TEAM CHRONIC DISEASE VISIT due on 10/28/2023 BP CONTROLLED (<130/80) due on 11/30/2023 DIABETES SCREEN due on 12/21/2025 INFLUENZA Completed DEPRESSION ASSESSMENT Completed HEPATITIS C SCREENING Completed COVID-19 VACCINE Completed PNEUMOCOCCAL: 65+ Completed Data reviewed Admission on 12/20/2022, Discharged on 12/21/2022 Component Date Value Glucose 12/20/2022 133 (A) BUN 12/20/2022 21 Creatinine 12/20/2022 0.99 Sodium 12/20/2022 136 Potassium 12/20/2022 4.2 Chloride 12/20/2022 103 CO2 12/20/2022 20 (A) Anion Gap 12/20/2022 13 Calcium, Total 12/20/2022 9.1 Estimated Glomerular Nicola* 12/20/2022 78 WBC 12/20/2022 10.53 RBC 12/20/2022 4.61 Hemoglobin 12/20/2022 13.1 Hematocrit 12/20/2022 40.8 MCV 12/20/2022 88.5 MCH 12/20/2022 28.4 MCHC 12/20/2022 32.1 RDW-CV 12/20/2022 16.4 (A) Platelet Count 12/20/2022 162 MPV 12/20/2022 10.9 Absolute nRBC 12/20/2022 <0.01 Activated Clotting Time * 12/20/2022 480 (A) Activated Clotting Time * 12/20/2022 395 (A) Activated Clotting Time * 12/20/2022 359 (A) Activated Clotting Time * 12/20/2022 329 (A) Activated Clotting Time * 12/20/2022 299 (A) Activated Clotting Time * 12/20/2022 347 (A) Activated Clotting Time * 12/20/2022 323 (A) Activated Clotting Time * 12/20/2022 305 (A) WBC 12/21/2022 13.92 (A) RBC 12/21/2022 4.22 Hemoglobin 12/21/2022 11.8 (A) Hematocrit 12/21/2022 37.5 (A) MCV 12/21/2022 88.9 MCH 12/21/2022 28.0 MCHC 12/21/2022 31.5 RDW-CV 12/21/2022 17.2 (A) Platelet Count 12/21/2022 175 MPV 12/21/2022 11.0 Absolute nRBC 12/21/2022 <0.01 Glucose 12/21/2022 124 (A) BUN 12/21/2022 22 Creatinine 12/21/2022 1.10 Sodium 12/21/2022 140 Potassium 12/21/2022 3.7 Chloride 12/21/2022 107 (A) CO2 12/21/2022 20 (A) Anion Gap 12/21/2022 13 Calcium, Total 12/21/2022 8.7 Estimated Glomerular Nicola* 12/21/2022 69 TSH 12/21/2022 0.627 Albumin 12/21/2022 3.8 (A) Bilirubin, Total 12/21/2022 1.1 Bilirubin, Conjugated 12/21/2022 Alkaline Phosphatase 12/21/2022 68 AST 12/21/2022 40 ALT 12/21/2022 31 Protein, Total 12/21/2022 6.3 ASSESSMENT/PLAN: 1. BENIGN HYPERTENSION - ICD9: 401.1, ICD10: I10 (primary diagnosis) - Controlled - Continue current medications - Recommend home blood pressure monitoring, to bring results to next visit - Encouraged sodium restriction, DASH or Mediterranean diet - Recommend regular aerobic exercise 2. GERD without esophagitis - ICD9: 530.81, ICD10: K21.9 - PANTOPRAZOLE 20 MG TABLET,DELAYED RELEASE 3. Mixed hyperlipidemia - ICD9: 272.2, ICD10: E78.2 - Controlled - Continue current medications - Counseled on healthy diet and regular exercise 4. PAD (peripheral artery disease) (HCC) - ICD9: 443.9, ICD10: I73.9 5. Atrial fibrillation, unspecified type (HCC) - ICD9: 427.31, ICD10: I48.91 Follow with Cardiology 6. Cardiomyopathy, ischemic - ICD9: 414.8, ICD10: I25.5 7. Ischemic cardiomyopathy - ICD9: 414.8, ICD10: I25.5 Follow with Cardiology 8. Rash Use OTC Lamisil or Lotrimin 9. Neck numbness Monitor Follow up in 6 months Medical Decision Making: Problems: Low: Acute, uncomplicated illness or injury Moderate: 2+ stable chronic illnesses and 1+ chronic illnesses with change Risk: Moderate: Drug management Medical Decision Making Level: 4 - Moderate Federico Vigil MD documented in this encounter [facility] 12-30-2022 Miscellaneous Notes Post PVAI orders pended for signature documented in this encounter [facility] 12-20-2022 Note HNO ID: [id number] Author: Royce Harding APRN.GATHERING MACHINE FEEDER Service: Anesthesiology Author Type: Nurse Firewall Security Engineer Type: Anesthesia Procedure Notes Filed: 12/20/2022 9:16 AM Note Text: ANESTHESIOLOGY PROCEDURE NOTE Airway General Information Procedure Start Time/Medication Administration: 12/20/2022 9:00 AM Patient location during procedure: OR Patient identity confirmed: arm band Staffing GATHERING MACHINE FEEDER: Royce Harding APRN.GATHERING MACHINE FEEDER Performed by: GATHERING MACHINE FEEDER Indications and Patient Condition Indications for airway management: anesthesia Preoxygenated: yes anesthesia circuit Patient position: sniffing Final Airway Details Final airway type: endotracheal airway Final Endotracheal Airway: ETT Cuffed: yes Successful intubation technique: video laryngoscopy Devices used: ConforMIS Endotracheal tube insertion site: oral Blade: Nadiya Blade size: #4 ETT size (mm): 8.0 Placement verified by: chest auscultation and capnometry Cormack-Lehane Classification: grade IIa - partial view of glottis Number of attempts at approach: 1 SIGNATURE: Francisco Harding APRN.GATHERING MACHINE FEEDER PATIENT NAME: Shelton Kay DATE: December 20, 2022 TIME: 9:14 AM CSN: [id number] [facility] 11-30-2022 Miscellaneous Notes Pt's name has been added to [facility] procedure board. Magda Wallace RN Patient is scheduled for a PVI Ablation on 12/[address] Walker. The hospital will call the day before between 2-5pm with your arrival time. You should not eat or drink after midnight the day before the procedure. You will need a piledriver carpenter when released from the hospital and you will stay overnight for observation. You should continue to take medications as prescribed the morning of the procedure with just a sip of water unless otherwise instructed. Spoke with Shelton Kay on November 30, 2022. Informed of instructions as stated above. Patient verbalized understanding. Tiarra Rand documented in this encounter [facility] 11-29-2022 Note HNO ID: [id number] Author: Sunny Walker MD Service: ? Author Type: Physician Type: Progress Notes Filed: 11/29/2022 12:15 PM Note Text: PRIMARY CARE PHYSICIAN: Federico Vigil [address] [place] [address] REFERRING PHYSICIAN: No referring provider defined for this encounter. Patient Care Team: Federico Vigil MD as PCP - General (Family Medicine) CHIEF COMPLAINT: Paroxysmal atrial fibrillation HISTORY OF PRESENT ILLNESS: Mr. Kay is a 77 year old male with PMH significant for hypertension, hyperlipidemia, GERD, CAD status post PCI to OM, PAD, chronic systolic heart failure (EF 40%), paroxysmal atrial fibrillation who presents today as a referral for management of atrial fibrillation. Patient was diagnosed with atrial fibrillation in July 2022 after he presented to his primary care with symptoms of fatigue and tiredness for few months. He was noted to be in atrial fibrillation on twelve-lead EKG and referred to cardiology. He underwent an echocardiogram that showed EF of 40% and a mildly dilated left atrium. He subsequently was scheduled for nuclear stress test that showed reversible moderate-sized anterior apical and septal defects suggestive of ischemia. She subsequently underwent a left heart catheterization which showed a 90% OM lesion and underwent PCI. He was placed on carvedilol and Eliquis for management of his atrial fibrillation. He remains in atrial fibrillation although rate controlled but still complains of easy fatigability and tiredness. He has cut down on his caffeine intake and is scheduled for a sleep study because of his history of snoring. Patient was referred to electrophysiology for management of atrial fibrillation. He denies chest pain, orthopnea, cough, edema, PND, lightheadedness or syncope. I have confirmed and edited as necessary, the PFSH and ROS obtained by others. PAST MEDICAL HISTORY Diagnosis Date Allergic rhinitis, cause unspecified Arthritis Atherosclerotic heart disease of [place] coronary artery without angina pectoris Atrial fibrillation (HCC) Avascular necrosis (HCC) Benign neoplasm of colon CAD (coronary artery disease) Cardiomyopathy (HCC) Carotid artery stenosis Chronic back pain Diverticulosis of colon (without mention of hemorrhage) Dyslipidemia Erectile dysfunction Essential hypertension, benign Fatigue GERD (gastroesophageal reflux disease) Gout, unspecified H/O carotid stenosis Hepatomegaly Internal hemorrhoids without mention of complication Mixed hyperlipidemia Osteoarthritis Other and unspecified hyperlipidemia Peripheral arterial disease (HCC) Prominent abdominal aortic pulsation S/P drug eluting coronary stent placement Snoring Subclavian arterial stenosis (HCC) Unspecified atrial fibrillation (HCC) PAST SURGICAL HISTORY Procedure Laterality Date ARTHROPLASTY TOTAL SHOULDER 06/2011 Dr. Benitez. ARTHRP ACETBLR/PROX FEM PROSTC AGRFT/ALGRFT 04/2012 Dr. Wood> [facility] ARTHRP KNE CONDYLEANDPLATU MEDIALANDLAT COMPARTMENTS Right COLONOSCOPY W/BIOPSY SINGLE/MULTIPLE 08/24/2006 EGD 12/01/2020 EYE SURGERY HX JOINT REPLACEMENT HX LEFT HEART CATH,PERCUTANEOUS 10/06/2022 OPEN REPAIR OF ROTATOR CUFF ACUTE 10/03/2008 Rotator cuff repair-right PAST SURGICAL HISTORY OF right knee scope PAST SURGICAL HISTORY OF cataract both eyes TONSILLECTOMY HX TONSILLECTOMY PRIMARY/SECONDARY Tonsillectomy and adnoids SOCIAL HISTORY Social History Tobacco Use Smoking status: Former Packs/day: 1.00 Years: 10.00 Pack years: 10.00 Types: Cigarettes Quit date: 07/18/1971 Years since quittin.4 Smokeless tobacco: Never Vaping Use Vaping Use: Never used Substance Use Topics Alcohol use: Yes Alcohol/week: 5.0 standard drinks Types: 3 Standard drinks or equivalent, 2 Cans of Beer (12oz) per week Comment: daily beer Drug use: No FAMILY HISTORY Problem Relation Age of Onset Cancer Mother KIDNEY Coronary Artery Disease Mother Lipids Mother Stroke Mother Heart disease Mother Cancer Father LUNG other (fibromyalgia) Sister Prostate Cancer Brother ALLERGIES: ALLERGIES Allergen Reactions Indocin [Indomethac* Diarrhea Mobic [Meloxicam] Diarrhea MEDICATIONS: lisinopril (ZESTRIL) 5 mg tabletTake 5 mg by mouth once daily.Disp: Rfl: multivit with minerals/lutein (MULTIVITAMIN 50 PLUS ORAL)Take 1 tablet by mouth once daily.Disp: Rfl: JARDIANCE 10 mg tabletTake 10 mg by mouth once daily.Disp: Rfl: predniSONE (DELTASONE) 10 mg tabletTake 1.2 tablets by mouth as needed.Disp: Rfl: carvedilol (COREG) 3.125 mg tabletTake 6.25 mg by mouth twice daily.Disp: Rfl: allopurinol (ZYLOPRIM) 100 mg tabletTAKE 1 TABLET BY MOUTH TWICE A DAYDisp: 180 tabletRfl: 1 apixaban (ELIQUIS) 5 mg tab(s)Take 5 mg by mouth twice daily.Disp: Rfl: clopidogrel (PLAVIX) 75 mg tabletTak (more content not included)... [facility] 11-29-2022 Instructions Sunny Walker MD - 11/29/2022 10:13 AM EDT Atrial Fibrillation What is atrial fibrillation? Atrial fibrillation (also called A-fib) is a fast or irregular heartbeat that starts in the upper chambers of the heart. The abnormal heartbeat affects the ability of the heart to pump blood to the rest of the body. What is the cause? An electrical signal in your heart starts each heartbeat, causing the heart muscle to squeeze (contract). Normally, this signal starts in the upper right chamber of the heart (the right atrium) at a place called the sinus node. The signal then follows normal pathways to the upper left atrium and to the lower chambers of the heart (the ventricles). When you have atrial fibrillation, electrical signals don t start in the normal place in the right atrium and don t travel normally. This can cause the upper chambers of the heart (atria) to beat very fast and not in a normal pattern. Common causes of heart rhythm problems are conditions that damage the heart, like coronary artery disease, heart attack, or heart failure. Problems with the heart valves are another common cause. The heart has 4 valves that open and close with each heartbeat to help blood flow in the right direction through the heart. Other causes of atrial fibrillation include: Health problems, such as a stroke, lung disease, diabetes, overactive thyroid gland, or high blood pressure Abuse of alcohol or drugs, such as cocaine Sometimes no cause can be found. What are the symptoms? Some people don t have any symptoms. When atrial fibrillation does cause symptoms, the most common ones are: Feeling like your heart is beating too fast or too hard or skipping beats or fluttering Feeling tired or weak all the time Symptoms that are more serious include: Chest pain Trouble breathing Lightheadedness or dizziness Confusion How is it diagnosed? Your healthcare provider will ask about your symptoms and medical history and examine you. Tests may include: An ECG (also called an EKG), which measures and records your heartbeat. You may have an ECG while you are resting or while you exercise on a treadmill. You may also be asked to wear a small portable ECG monitor for a few days or sometimes a couple weeks. Blood tests An echocardiogram, which uses sound waves (ultrasound) to show the structures of the heart, like the valves How is it treated? The goal of treatment is to help the heart keep a normal rhythm. Your treatment depends on the cause of the atrial fibrillation, how often you have symptoms, and the severity of your symptoms. If you have no symptoms, or your symptoms are fairly mild, you may not need treatment. For some people atrial fibrillation lasts just a short time and the heart goes back to a normal rhythm on its own. If you keep having spells of atrial fibrillation, treatment may help keep you from having so many spells. If a health problem like a leaky heart valve is causing the atrial fibrillation, treating the health problem may also treat the fast or irregular heartbeat. Other possible treatments are: Medicine: Your provider may prescribe medicine to slow or restore a normal heart rate and rhythm. You may also need medicine to prevent blood clots because when the heart beats irregularly, some of the blood can stay in the upper chambers too long. This makes it easier for blood clots to form, increasing your risk of having a stroke or heart attack. Electrical cardioversion: First, you will be given medicine called anesthesia to keep you from feeling pain during the procedure. Then your chest will be given an electrical shock. The electrical shock should make your heart start beating normally again. You may need medicine to keep your heart rhythm normal after this procedure. Ablation: Ablation is a procedure that uses a small tube called a catheter to deliver energy to the inside of the heart. The energy (usually radio waves) scars small areas of heart tissue. The scars block abnormal electrical pathways and help you have a normal heart rhythm. With some types of ablation treatment, you will also need a pacemaker. A pacemaker is an electronic device put under the skin of your chest to help control the heartbeat. How can I take care of myself? Take your medicines as prescribed. Keep your appointments for follow-up blood tests. Make sure your healthcare provider knows about changes in your diet or medical condition. Your provider also needs to know about all prescription and nonprescription medicines, herbs, or supplements that you are taking. Some medicines may interact with your heart medicine or increase your risk for atrial fibrillation. If you want to drink alcohol, ask your provider how much is safe for you to drink. Follow your healthcare provider's instructions. Ask your provider: ?How and when you will hear your test results ?How long it will take to recover ?What activities you should avoid and when you can return to your normal activities ?How to take care of yourself at home ?What symptoms or problems you should watch for and what to do if you have them Make sure you know when you should come back for a checkup. How can I help prevent atrial fibrillation? The best prevention is to have a heart-healthy lifestyle. Keep a healthy weight. Eat a healthy diet that is low in sodium and saturated and trans fat. Stay fit with the right kind of exercise for you. Decrease stress. Don t smoke. Limit your use of alcohol. If you have heart disease or high blood pressure, follow your healthcare provider's instructions for treatment. Developed by [employer]. Published by [employer]. Copyright 2014 [employer] and/or one of its subsidiaries. All rights reserved. documented in this encounter [facility] 11-29-2022 History of Present illness Narrative Images from the original note were not included. PRIMARY CARE PHYSICIAN: Federico Vigil [address] [place] [address] REFERRING PHYSICIAN: No referring provider defined for this encounter. Patient Care Team: Federico Vigil MD as PCP - General (Family Medicine) CHIEF COMPLAINT: Paroxysmal atrial fibrillation HISTORY OF PRESENT ILLNESS: Mr. Kay is a 77 year old male with PMH significant for hypertension, hyperlipidemia, GERD, CAD status post PCI to OM, PAD, chronic systolic heart failure (EF 40%), paroxysmal atrial fibrillation who presents today as a referral for management of atrial fibrillation. Patient was diagnosed with atrial fibrillation in July 2022 after he presented to his primary care with symptoms of fatigue and tiredness for few months. He was noted to be in atrial fibrillation on twelve-lead EKG and referred to cardiology. He underwent an echocardiogram that showed EF of 40% and a mildly dilated left atrium. He subsequently was scheduled for nuclear stress test that showed reversible moderate-sized anterior apical and septal defects suggestive of ischemia. She subsequently underwent a left heart catheterization which showed a 90% OM lesion and underwent PCI. He was placed on carvedilol and Eliquis for management of his atrial fibrillation. He remains in atrial fibrillation although rate controlled but still complains of easy fatigability and tiredness. He has cut down on his caffeine intake and is scheduled for a sleep study because of his history of snoring. Patient was referred to electrophysiology for management of atrial fibrillation. He denies chest pain, orthopnea, cough, edema, PND, lightheadedness or syncope. I have confirmed and edited as necessary, the PFSH and ROS obtained by others. PAST MEDICAL HISTORY Diagnosis Date Allergic rhinitis, cause unspecified Arthritis Atherosclerotic heart disease of [place] coronary artery without angina pectoris Atrial fibrillation (HCC) Avascular necrosis (HCC) Benign neoplasm of colon CAD (coronary artery disease) Cardiomyopathy (HCC) Carotid artery stenosis Chronic back pain Diverticulosis of colon (without mention of hemorrhage) Dyslipidemia Erectile dysfunction Essential hypertension, benign Fatigue GERD (gastroesophageal reflux disease) Gout, unspecified H/O carotid stenosis Hepatomegaly Internal hemorrhoids without mention of complication Mixed hyperlipidemia Osteoarthritis Other and unspecified hyperlipidemia Peripheral arterial disease (HCC) Prominent abdominal aortic pulsation S/P drug eluting coronary stent placement Snoring Subclavian arterial stenosis (HCC) Unspecified atrial fibrillation (HCC) PAST SURGICAL HISTORY Procedure Laterality Date ARTHROPLASTY TOTAL SHOULDER 06/2011 Dr. Benitez. ARTHRP ACETBLR/PROX FEM PROSTC AGRFT/ALGRFT 04/2012 Dr. Wood> [facility]. ARTHRP KNE CONDYLE&PLATU MEDIAL&LAT COMPARTMENTS Right COLONOSCOPY W/BIOPSY SINGLE/MULTIPLE 08/24/2006 EGD 12/01/2020 EYE SURGERY HX JOINT REPLACEMENT HX LEFT HEART CATH,PERCUTANEOUS 10/06/2022 OPEN REPAIR OF ROTATOR CUFF ACUTE 10/03/2008 Rotator cuff repair-right PAST SURGICAL HISTORY OF right knee scope PAST SURGICAL HISTORY OF cataract both eyes TONSILLECTOMY HX TONSILLECTOMY PRIMARY/SECONDARY <AGE 12 Tonsillectomy and adnoids SOCIAL HISTORY Social History Tobacco Use Smoking status: Former Packs/day: 1.00 Years: 10.00 Pack years: 10.00 Types: Cigarettes Quit date: 07/18/1971 Years since quittin.4 Smokeless tobacco: Never Vaping Use Vaping Use: Never used Substance Use Topics Alcohol use: Yes Alcohol/week: 5.0 standard drinks Types: 3 Standard drinks or equivalent, 2 Cans of Beer (12oz) per week Comment: daily beer Drug use: No FAMILY HISTORY Problem Relation Age of Onset Cancer Mother KIDNEY Coronary Artery Disease Mother Lipids Mother Stroke Mother Heart disease Mother Cancer Father LUNG other (fibromyalgia) Sister Prostate Cancer Brother ALLERGIES: ALLERGIES Allergen Reactions Indocin [Indomethac* Diarrhea Mobic [Meloxicam] Diarrhea MEDICATIONS: lisinopril (ZESTRIL) 5 mg tablet^Take 5 mg by mouth once daily.^Disp: ^Rfl: multivit with minerals/lutein (MULTIVITAMIN 50 PLUS ORAL)^Take 1 tablet by mouth once daily.^Disp: ^Rfl: JARDIANCE 10 mg tablet^Take 10 mg by mouth once daily.^Disp: ^Rfl: predniSONE (DELTASONE) 10 mg tablet^Take 1.2 tablets by mouth as needed.^Disp: ^Rfl: carvedilol (COREG) 3.125 mg tablet^Take 6.25 mg by mouth twice daily.^Disp: ^Rfl: allopurinol (ZYLOPRIM) 100 mg tablet^TAKE 1 TABLET BY MOUTH TWICE A DAY^Disp: 180 tablet^Rfl: 1 apixaban (ELIQUIS) 5 mg tab(s)^Take 5 mg by mouth twice daily.^Disp: ^Rfl: clopidogrel (PLAVIX) 75 mg tablet^Take 75 mg by mouth once daily.^Disp: ^Rfl: Melatonin 5 mg cap^Take 5 mg by mouth daily at bedtime.^Disp: ^Rfl: furosemide (LASIX) 40 mg tablet^Take 1 tablet by mouth once daily.^Disp: 30 tablet^Rfl: [address] (PROTONIX) 20 mg tablet^Take 1 tablet by mouth daily before breakfast. Take on empty stomach, 1/2 hr before meal.^Disp: 30 tablet^Rfl: 5 simvastatin (ZOCOR) 20 mg tablet^Take 1 tablet by mouth once daily.^Disp: 90 tablet^Rfl: 3 sildenafil (VIAGRA) 100 mg tablet^Take 1/2 to 1 tablet by mouth 1 hour prior to anticipated intercourse.^Disp: 30 tablet^Rfl: 5 REVIEW OF SYSTEMS: GENERAL: Negative for: Weight loss or gain, Fever or Chills, Weakness and Sleep difficulties. HEENT: Negative for: Headache, Impaired Vision, Glasses, Hearing Impairment, Ringing in Ears, Nosebleeds, Poor dental care, Bleeding Gums, Dentures NECK: Negative for: Swelling, Pain, Stiffness RESPIRATORY: Negative for: Cough, Blood in Sputum, Shortness of breath, Wheezing, Apnea GASTROINTESTINAL: Negative for: Trouble swallowing, Heartburn, Change in bowel habits, Blood in stool, Dark black stools MUSCULOSKELETAL: Negative for: Muscle or joint pain, Stiffness , Joint swelling NEUROLOGIC/PSYCHIATRIC: Negative for: Weakness, Paralysis, Numbness, Tingling, Tremor, Nervousness, Depressed mood, Memory loss SKIN: Negative for: Rashes, Itching HEMATOLOGICAL/LYMPHATIC: Negative for: Easy bruising , Easy bleeding ENDOCRINE: Negative for: Heat or cold intolerance, Excessive sweating, Frequent urination, Frequent thirst PHYSICAL EXAMINATION: BP 122/69 Pulse 65 Ht 5' 10 (1.78m) Wt 176 lb 6.4 oz (80.0kg) SpO2 99% BMI 25.31 kg/(m^2). General: Well appearing, in no acute distress. Skin: No clubbing, no cyanosis. Eyes: Extra ocular movements intact Oropharynx: Teeth in good repair. Neck: No jugular venous distention, no carotid bruits, carotids have a normal upstroke, no palpable thyromegaly. Lungs: Clear to auscultation bilaterally, no wheezing or rhonchi. Heart: Regular rhythm, PMI not displaced, S1, S2 normal, no S3, no S4, no heaves, no rub and no murmur. Abdomen: Soft, nontender, bowel sounds normal, no palpable organomegaly, no bruits. Extremities: No peripheral edema . Grade 2/4 distal pulses bilaterally. Neuro: Oriented to person, place and time, alert, cooperative, gait coordinated. CARDIOVASCULAR MEDICINE TESTING: Electrocardiogram: Echocardiogram: Stress test: 09/24/2022 [facility]: I have personally reviewed the Electrocardiogram, Echocardiogram, and Stress Test: Nuclear (Non-PET). ASSESSMENT/PLAN: 1. PAF (paroxysmal atrial fibrillation) ([facility]) - ICD9: 427.31, ICD10: I48.0 (primary diagnosis) 2. Atrial fibrillation, unspecified type (HCC) - ICD9: 427.31, ICD10: I48.91 - ECG B/O W INTERP (MED OFFICE) 3. Cardiomyopathy, ischemic - ICD9: 414.8, ICD10: I25.5 4. PAD (peripheral artery disease) ([facility]) - ICD9: 443.9, ICD10: I73.9 5. Mixed hyperlipidemia - ICD9: 272.2, ICD10: E78.2 6. Coronary artery disease involving [place] coronary artery of [place] heart without angina pectoris - ICD9: 414.01, ICD10: I25.10 7. S/P drug eluting coronary stent placement - ICD9: V45.82, ICD10: Z95.5 IMPRESSION: Mr. Kay is a 77 year old male with PMH significant for hypertension, hyperlipidemia, GERD, CAD status post PCI to OM, PAD, chronic systolic heart failure (EF 40%), paroxysmal atrial fibrillation who presents today as a referral for management of atrial fibrillation. Patient was formally diagnosed in July 2022 with symptomatic atrial fibrillation which is currently rate controlled. He presents today to discuss various options for rhythm control of atrial fibrillation. I did discuss the natural history of atrial fibrillation and progression especially given concomitant history of multiple risk factors including hypertension, possible ALONDRA, and dilated left atrium. I discussed options for rhythm control with AAD, which will probably involve Tikosyn initiation as he is likely not a candidate for other antiarrhythmics except for amiodarone, prolonged therapy for which would be limited by side effects. We also discussed ablation procedure involving PVI and details, benefits and risks of the procedure. Patient wants to opt for ablation procedure. CHADS2-Vasc Score Breakdown 5 Total Score 2 Age >= 75 years old 1 History of CHF 1 History of hypertension 1 History of vascular disease PLAN AND RECOMMENDATIONS: -Continue Coreg 6.25 mg twice daily. Remains well rate controlled on current medications. -Continue uninterrupted Eliquis 5 mg twice daily. -Schedule patient for pulm vein isolation with cardio and RF. Required cardioversion during the procedure. -He also has a right bundle branch block and left anterior fascicular block at baseline, no history of syncope and currently no indication for pacemaker. We will continue to monitor. -We will also need repeat echo in 3 to 4 months after PCI and then ablation to achieve rhythm control, to assess with improvement in EF. Return in about 3 months (around 03/01/2023). Or follow-up to be determined after atrial fibrillation ablation. Sunny Walker MD documented in this encounter [facility] 11-29-2022 Nurse Note C/o SOB. Veronica Rosas MA documented in this encounter [facility] 11-10-2022 Miscellaneous Notes Patient aware. Karine Salvador LPN I understand but since they saw him I would feel tanya if they talk with him first. Thanks, Anna Marie APRN.LIZET Pts called and is notified of providers message and instructions. She voices understanding. She states they weren't trying to go over Dr Cline, but she said sometimes he will have them go to the PCP. She was sent through on the phones to Dr Berkowitz office. Claudette Morelos RN I would have him follow-up with Dr. Cline as if he recommended he not have it I do not feel comfortable overriding his decision since he has been treating this. Anna Marie APRN.LIZET checking on reply. Scheduled same day appt with [employer] [place] [employer]. called in and pt has seen Dr. Cline for gout and has been referred to the Rheumatology at [facility]. APt is not till 11-24-22. Pt's foot is red, painful, swelling and pt is having problems walking. He is home icing it now. Pt has been on Prednisone dose pack and has completed this and requesting more Prednisone to help with the symptoms above. Per Dr. Cline did not want to give anymore Prednisone and wants him to see Rheumatology which he does have and apt but needs help while waiting for apt. Please advise . Elif Godoy LPN documented in this encounter [facility] 11-10-2022 Miscellaneous Notes See Phone Encounter 11/10/22. Called patient and notified him that new steroid script was sent to pharmacy. Records faxed to [facility] Dr. Seo. Consent has been scanned into chart. Nurys Stevens LPN Called patient to inform him that he will need to stop into office and sign a consent to forward medical records to arthritis clinic.Patient verbalized understanding. Patient asked if he could have another round of prednisone but tapered. Nurys Stevens LPN documented in this encounter [facility] 11-10-2022 Miscellaneous Notes Images from the original note were not included. Karina Cline [facility] 1 minute ago (4:04 PM) I will call in oral steroid for one time refill. If condition fails to improve, present to ed Karina Cline DPM Azuc[facility] called. Verified name and date of of patient. Patient was referred to reach back out to Dr. Cline due to continuity of care. Patient has rheumatology appointment in two weeks but the gout is causing pain, redness, swelling, and warm to touch. He did complete the prednisone but it did not help completely. Per Azucena it helped about 70%. On the last day it was not completely resolved. Azucena did express going to [facility] or Emergency Room but would really like to have guidance from Dr. Cline. Please review and advise. Andressa Padilla LPN documented in this encounter [facility] 11-10-2022 Miscellaneous Notes Called in refill for oral steroid documented in this encounter [facility] 11-03-2022 Note HNO ID: [id number] Author: RT Eunice(R) Service: Nuclear Medicine Author Type: Technologist Type: Progress Notes Filed: 11/03/2022 9:38 AM Note Text: Radiology Service Progress Note PATIENT NAME: Shelton Kay DATE OF SERVICE: November 03, 2022 TIME: 9:28 AM PATIENT IDENTITY VERIFICATION COMPLETED USING TWO (2) IDENTIFIERS: Name and Date of confirmed by patient verbally. FALL SCREENING: Has the patient had 2 falls in the last year or 1 fall with injury or currently using an Ambulatory Assistive Device (Walker, Cane, Wheelchair, Crutches, etc.)? No PATIENT GENDER DATA: Male PATIENT RELEVANT IMPLANT DATA REVIEWED: Not Applicable RADIOLOGY DEPARTMENT: General X-ray: Exam(s) Completed: Lower Extremity X-Ray(s): Foot, Right and Wt. Bearing PERIPHERAL IV DATA: Not applicable SIGNED BY: RT Eunice(R) November 03, 2022 9:28 AM [facility] 11-03-2022 Note HNO ID: [id number] Author: Karina Cline Service: ? Author Type: Physician Type: Progress Notes Filed: 11/03/2022 9:21 AM Note Text: FOLLOW UP PODIATRIC OFFICE VISIT Chief Complaint: This 77 year old who presents for right foot pain. Patient presents to clinic for evaluation of right foot. Patient states this past Tuesday, he developed pain in the right great toe and right midfoot. He states that the pain is severe and limits his walking He states he has had 4 episodes of gout since this past June. He was seen by me on October 25 and was treated with injection of left 5th metatarsal. The pain is improved. Patient is not currently taking any medicaion for the pain. PAIN EVALUATION 11/03/2022 0856 Pain Level: 10 Pain Location: Foot-Right Description: Throbbing;Aching Duration Amount of Time: 6 Duration Units: Days Frequency: Intermittent Intervention/Comfort measure: Reposition;Relaxation Hemoglobin A1C Date Value Ref Range Status 10/06/2021 5.5 4.3 - 5.6 % Final Comment: [place] [employer] guidelines indicate that patients with HgbA1c in the range 5.7-6.4% are at increased risk for development of diabetes, and intervention by lifestyle modification may be beneficial. HgbA1c greater or equal to 6.5% is considered diagnostic of diabetes. PCP: Federico Vigil MD PAST MEDICAL HISTORY Diagnosis Date Allergic rhinitis, cause unspecified Arthritis Benign neoplasm of colon Carotid artery stenosis Diverticulosis of colon (without mention of hemorrhage) Essential hypertension, benign Gout, unspecified H/O carotid stenosis Hepatomegaly Internal hemorrhoids without mention of complication Other and unspecified hyperlipidemia Snoring Current Outpatient Medications Medication Sig carvedilol (COREG) 3.125 mg tablet TAKE 1 TABLET BY MOUTH TWICE A DAY MUST ADMINISTER WITH FOOD allopurinol (ZYLOPRIM) 100 mg tablet TAKE 1 TABLET BY MOUTH TWICE A DAY apixaban (ELIQUIS) 5 mg tab(s) TWICE A DAY clopidogrel (PLAVIX) 75 mg tablet Take 75 mg by mouth once daily. Melatonin 5 mg cap AT BEDTIME furosemide (LASIX) 40 mg tablet Take 1 tablet by mouth once daily. pantoprazole DR (PROTONIX) 20 mg tablet Take 1 tablet by mouth daily before breakfast. Take on empty stomach, 1/2 hr before meal. simvastatin (ZOCOR) 20 mg tablet Take 1 tablet by mouth once daily. sildenafil (VIAGRA) 100 mg tablet Take 1/2 to 1 tablet by mouth 1 hour prior to anticipated intercourse. POTASSIUM-99 ORAL Take 99 % by mouth twice daily. lisinopril (ZESTRIL, PRINIVIL) 10 mg tablet Take 1 tablet by mouth once daily. (Patient taking differently: Take 10 mg by mouth once daily. 2.5 mg daily) coenzyme Q10 (COENZYME Q-10) 100 mg cap capsule Take 100 mg by mouth once daily. omega 5-uvn-wgp-fish oil 500-100-1,000 mg cap Take 1 capsule by mouth once daily. multivitamins ORAL Liqd TAKES 1 OUNCE DAILY colchicine (COLCRYS) 0.6 mg tablet Take 1 tablet by mouth twice daily for 10 days. metoprolol succinate ER (TOPROL XL) 25 mg 24 hr tablet TAKE 1 TABLET BY MOUTH EVERY DAY omeprazole (PRILOSEC) 20 mg capsule TAKE 1 CAPSULE BY MOUTH EVERY DAY (Patient not taking: No sig reported) aspirin 81 mg chewable tablet Take 81 mg by mouth once daily. (Patient not taking: No sig reported) Current Facility-Administered Medications Medication Dose Route Frequency perflutren lipid microspheres 1.3 mL in NaCl (PF) 0.9% 10 mL injection (DEFINITY) INTRAVENOUS DIRECTED PRN sodium chloride 0.9 % (flush) 10 mL (BD POSIFLUSH) 10 mL INTRAVENOUS DIRECTED PRN ALLERGIES Allergen Reactions Indocin [Indomethac* Diarrhea Mobic [Meloxicam] Diarrhea PAST SURGICAL HISTORY Procedure Laterality Date ARTHROPLASTY TOTAL SHOULDER 06/2011 Dr. Benitez. ARTHRP ACETBLR/PROX FEM PROSTC AGRFT/ALGRFT 04/2012 Dr. Wood> [facility] ARTHRP KNE CONDYLEANDPLATU MEDIALANDLAT COMPARTMENTS Right COLONOSCOPY W/BIOPSY SINGLE/MULTIPLE 08/24/2006 EGD 12/01/2020 EYE SURGERY HX JOINT REPLACEMENT HX OPEN REPAIR OF ROTATOR CUFF ACUTE 10/03/2008 Rotator cuff repair-right PAST SURGICAL HISTORY OF right knee scope PAST SURGICAL HISTORY OF cataract both eyes TONSILLECTOMY HX TONSILLECTOMY PRIMARY/SECONDARY Tonsillectomy and adnoids Physical Exam: OBJECTIVE: Constitutional: Pt is a well developed 77 year old male who is alert, oriented, cooperative and in no apparent distress. Eyes: Following during examination. No redness or drainage. Respiratory: RR normal and nonlabored. Even breathing. No evidence of distress. Psychology: Patient is engaged during conversation. Normal affect and mood. Does not appear depressed or anxious. NVSI unchanged from previous visit. Dermatological: Nails 1-5 b/l are normal. Webspaces clean and dry 1-4 b/l. Skin appears well hydrated and supple. good color, texture, turgor. No open lesions present. No callosities present. Musculoskele (more content not included)... [facility] 11-03-2022 Note HNO ID: [id number] Author: Claudette Bansal RN Service: ? Author Type: Registered Nurse Type: Progress Notes Filed: 11/03/2022 9:21 AM Note Text: AMB ROOMING INTAKE FLOWSHEET DATA Pain Pain Level: 10 Pain Location: Foot-Right Description: Throbbing, Aching Duration Amount of Time: 6 Duration Units: Days Frequency: Intermittent Intervention/Comfort measure: Reposition, Relaxation Patient presents with: Right Foot - Established Patient, Follow Up, Pain Patient presents for Right foot pain that began on Tuesday. Patient states that it started with redness and pain to the toes, now he states the foot is red and swollen. Patient states that he has had many gout and bunion flare ups and it is becoming very frustrating for him. Patient is hoping to be referred to a fiscal economist to find out why he is having so many flare ups. [facility] 11-03-2022 History of Present illness Narrative Radiology Service Progress Note PATIENT NAME: Shelton Kay DATE OF SERVICE: November 03, 2022 TIME: 9:28 AM PATIENT IDENTITY VERIFICATION COMPLETED USING TWO (2) IDENTIFIERS: Name and Date of confirmed by patient verbally. FALL SCREENING: Has the patient had 2 falls in the last year or 1 fall with injury or currently using an Ambulatory Assistive Device (Walker, Cane, Wheelchair, Crutches, etc.)? No PATIENT GENDER DATA: Male PATIENT RELEVANT IMPLANT DATA REVIEWED: Not Applicable RADIOLOGY DEPARTMENT: General X-ray: Exam(s) Completed: Lower Extremity X-Ray(s): Foot, Right and Wt. Bearing PERIPHERAL IV DATA: Not applicable SIGNED BY: RT Eunice(R) November 03, 2022 9:28 AM [facility] Administration 10-27-2022 Note HNO ID: [id number] Author: Ruth Perez APRN.LIZET Service: ? Author Type: Nurse Practitioner Type: Progress Notes Filed: 10/27/2022 1:31 PM Note Text: This is a 77 year old male who presents today with: Patient presents with: 6 Month Exam HISTORY OF PRESENT ILLNESS: Shelton Kay is a 77 year old male. Patient presents with: 6 Month Exam Office for 6-month follow-up. Afib: Was seen by [facility] for new onset A-fib. Had cardiac work-up completed by them, stress test/heart cath. 2 stents placed in September Was referred to [facility] cardiology for ablation due to afib. Discussion of ablation in the future. Waiting for call to get scheduled. Still taking Eliquis 5 mg twice daily and Plavix 75 mg daily. Carvidol 3.125 mg BID. Still having ongoing SOB at times. No chest pain. Cardiology has been monitoring his labs. HTN: Taking lisinopril 2.5 mg daily. Not currently checking blood pressure at home. Denies chest pain, palpitations, dizziness, or edema. Lipid: Taking Zocor 20 mg at bedtime. Tolerating medication well. Watching diet and staying active. GERD: Taking Protonix 20 mg daily. Symptoms well controlled medication Gout: Taking Allopurinol 100 mg twice daily.Saw Coater Smoking Pipe, had an injection into the foot. Injection was helpful. Vaccines: Due for Tdap, denies wanting any vaccines at this time. PAST MEDICAL HISTORY: PAST MEDICAL HISTORY Diagnosis Date Allergic rhinitis, cause unspecified Arthritis Benign neoplasm of colon Carotid artery stenosis Diverticulosis of colon (without mention of hemorrhage) Essential hypertension, benign Gout, unspecified H/O carotid stenosis Hepatomegaly Internal hemorrhoids without mention of complication Other and unspecified hyperlipidemia Snoring PAST SURGICAL HISTORY Procedure Laterality Date ARTHROPLASTY TOTAL SHOULDER 06/2011 Dr. Benitez. ARTHRP ACETBLR/PROX FEM PROSTC AGRFT/ALGRFT 04/2012 Dr. Wood> [facility] ARTHRP KNE CONDYLEANDPLATU MEDIALANDLAT COMPARTMENTS Right COLONOSCOPY W/BIOPSY SINGLE/MULTIPLE 08/24/2006 EGD 12/01/2020 EYE SURGERY HX JOINT REPLACEMENT HX OPEN REPAIR OF ROTATOR CUFF ACUTE 10/03/2008 Rotator cuff repair-right PAST SURGICAL HISTORY OF right knee scope PAST SURGICAL HISTORY OF cataract both eyes TONSILLECTOMY HX TONSILLECTOMY PRIMARY/SECONDARY Tonsillectomy and adnoids ALLERGIES Indocin [Indomethacin Sodium] and Mobic [Meloxicam] MEDICATIONS Current Outpatient Medications Medication Sig allopurinol (ZYLOPRIM) 100 mg tablet TAKE 1 TABLET BY MOUTH TWICE A DAY apixaban (ELIQUIS) 5 mg tab(s) TWICE A DAY clopidogrel (PLAVIX) 75 mg tablet Take 75 mg by mouth once daily. Melatonin 5 mg cap AT BEDTIME colchicine (COLCRYS) 0.6 mg tablet Take 1 tablet by mouth twice daily for 10 days. metoprolol succinate ER (TOPROL XL) 25 mg 24 hr tablet TAKE 1 TABLET BY MOUTH EVERY DAY (Patient not taking: Reported on 10/25/2022) furosemide (LASIX) 40 mg tablet Take 1 tablet by mouth once daily. pantoprazole DR (PROTONIX) 20 mg tablet Take 1 tablet by mouth daily before breakfast. Take on empty stomach, 1/2 hr before meal. omeprazole (PRILOSEC) 20 mg capsule TAKE 1 CAPSULE BY MOUTH EVERY DAY (Patient not taking: No sig reported) simvastatin (ZOCOR) 20 mg tablet Take 1 tablet by mouth once daily. sildenafil (VIAGRA) 100 mg tablet Take 1/2 to 1 tablet by mouth 1 hour prior to anticipated intercourse. POTASSIUM-99 ORAL Take 99 % by mouth twice daily. lisinopril (ZESTRIL, PRINIVIL) 10 mg tablet Take 1 tablet by mouth once daily. (Patient taking differently: Take 10 mg by mouth once daily. 2.5 mg daily) aspirin 81 mg chewable tablet Take 81 mg by mouth once daily. (Patient not taking: Reported on 10/25/2022) coenzyme Q10 (COENZYME Q-10) 100 mg cap capsule Take 100 mg by mouth once daily. omega 7-zuw-ajk-fish oil 500-100-1,000 mg cap Take 1 capsule by mouth once daily. multivitamins ORAL Liqd TAKES 1 OUNCE DAILY Current Facility-Administered Medications Medication Dose Route Frequency BUPivacaine (PF) 0.5 % (5 mg/mL) 2.5 mg injection 0.5 mL INTRA-ARTICULAR ONCE dexAMETHasone sodium phosphate 2 mg injection (DECADRON) 2 mg INTRA-ARTICULAR ONCE triamcinolone acetonide 5 mg injection (KeNALog 10) 5 mg INTRA-ARTICULAR ONCE perflutren lipid microspheres 1.3 mL in NaCl (PF) 0.9% 10 mL injection (DEFINITY) INTRAVENOUS DIRECTED PRN sodium chloride 0.9 % (flush) 10 mL (BD POSIFLUSH) 10 mL INTRAVENOUS DIRECTED PRN FAMILY HISTORY Problem Relation Age of Onset Cancer Mother KIDNEY Coronary Artery Disease Mother Lipids Mother Stroke Mother Cancer Father LUNG other (fibromyalgia) Sister Prostate Cancer Brother Social History Tobacco Use Smoking status: Former Packs/day: 1.00 Years: 10.00 Pack years: 10.00 Types: Cigarettes Quit date: 07/18/1971 Years since quittin.3 Smokeless tobacco: Never Vaping Use Vaping Use: (more content not included)... [facility] 10-27-2022 Instructions Ruth Perez APRN.CNP - 10/27/2022 11:16 AM EDT Continue to take all medication as prescribed. Keep scheduled appointments with cardiology Red flag symptoms go to ER Due for Tdap booster Follow up in 6 months or sooner as needed. documented in this encounter [facility] 10-27-2022 History of Present illness Narrative This is a 77 year old male who presents today with: Patient presents with: 6 Month Exam HISTORY OF PRESENT ILLNESS: Shelton Kay is a 77 year old male. Patient presents with: 6 Month Exam Office for 6-month follow-up. Afib: Was seen by [facility] for new onset A-fib. Had cardiac work-up completed by them, stress test/heart cath. 2 stents placed in September Was referred to [facility] cardiology for ablation due to afib. Discussion of ablation in the future. Waiting for call to get scheduled. Still taking Eliquis 5 mg twice daily and Plavix 75 mg daily. Carvidol 3.125 mg BID. Still having ongoing SOB at times. No chest pain. Cardiology has been monitoring his labs. HTN: Taking lisinopril 2.5 mg daily. Not currently checking blood pressure at home. Denies chest pain, palpitations, dizziness, or edema. Lipid: Taking Zocor 20 mg at bedtime. Tolerating medication well. Watching diet and staying active. GERD: Taking Protonix 20 mg daily. Symptoms well controlled medication Gout: Taking Allopurinol 100 mg twice daily.Saw Coater Smoking Pipe, had an injection into the foot. Injection was helpful. Vaccines: Due for Tdap, denies wanting any vaccines at this time. PAST MEDICAL HISTORY: PAST MEDICAL HISTORY Diagnosis Date Allergic rhinitis, cause unspecified Arthritis Benign neoplasm of colon Carotid artery stenosis Diverticulosis of colon (without mention of hemorrhage) Essential hypertension, benign Gout, unspecified H/O carotid stenosis Hepatomegaly Internal hemorrhoids without mention of complication Other and unspecified hyperlipidemia Snoring PAST SURGICAL HISTORY Procedure Laterality Date ARTHROPLASTY TOTAL SHOULDER 06/2011 Dr. Benitez. ARTHRP ACETBLR/PROX FEM PROSTC AGRFT/ALGRFT 04/2012 Dr. Wood> [facility] ARTHRP KNE CONDYLE&PLATU MEDIAL&LAT COMPARTMENTS Right COLONOSCOPY W/BIOPSY SINGLE/MULTIPLE 08/24/2006 EGD 12/01/2020 EYE SURGERY HX JOINT REPLACEMENT HX OPEN REPAIR OF ROTATOR CUFF ACUTE 10/03/2008 Rotator cuff repair-right PAST SURGICAL HISTORY OF right knee scope PAST SURGICAL HISTORY OF cataract both eyes TONSILLECTOMY HX TONSILLECTOMY PRIMARY/SECONDARY <AGE 12 Tonsillectomy and adnoids ALLERGIES Indocin [Indomethacin Sodium] and Mobic [Meloxicam] MEDICATIONS Current Outpatient Medications Medication Sig allopurinol (ZYLOPRIM) 100 mg tablet TAKE 1 TABLET BY MOUTH TWICE A DAY apixaban (ELIQUIS) 5 mg tab(s) TWICE A DAY clopidogrel (PLAVIX) 75 mg tablet Take 75 mg by mouth once daily. Melatonin 5 mg cap AT BEDTIME colchicine (COLCRYS) 0.6 mg tablet Take 1 tablet by mouth twice daily for 10 days. metoprolol succinate ER (TOPROL XL) 25 mg 24 hr tablet TAKE 1 TABLET BY MOUTH EVERY DAY (Patient not taking: Reported on 10/25/2022) furosemide (LASIX) 40 mg tablet Take 1 tablet by mouth once daily. pantoprazole DR (PROTONIX) 20 mg tablet Take 1 tablet by mouth daily before breakfast. Take on empty stomach, 1/2 hr before meal. omeprazole (PRILOSEC) 20 mg capsule TAKE 1 CAPSULE BY MOUTH EVERY DAY (Patient not taking: No sig reported) simvastatin (ZOCOR) 20 mg tablet Take 1 tablet by mouth once daily. sildenafil (VIAGRA) 100 mg tablet Take 1/2 to 1 tablet by mouth 1 hour prior to anticipated intercourse. POTASSIUM-99 ORAL Take 99 % by mouth twice daily. lisinopril (ZESTRIL, PRINIVIL) 10 mg tablet Take 1 tablet by mouth once daily. (Patient taking differently: Take 10 mg by mouth once daily. 2.5 mg daily) aspirin 81 mg chewable tablet Take 81 mg by mouth once daily. (Patient not taking: Reported on 10/25/2022) coenzyme Q10 (COENZYME Q-10) 100 mg cap capsule Take 100 mg by mouth once daily. omega 6-qzs-too-fish oil 500-100-1,000 mg cap Take 1 capsule by mouth once daily. multivitamins ORAL Liqd TAKES 1 OUNCE DAILY Current Facility-Administered Medications Medication Dose Route Frequency BUPivacaine (PF) 0.5 % (5 mg/mL) 2.5 mg injection 0.5 mL INTRA-ARTICULAR ONCE dexAMETHasone sodium phosphate 2 mg injection (DECADRON) 2 mg INTRA-ARTICULAR ONCE triamcinolone acetonide 5 mg injection (KeNALog 10) 5 mg INTRA-ARTICULAR ONCE perflutren lipid microspheres 1.3 mL in NaCl (PF) 0.9% 10 mL injection (DEFINITY) INTRAVENOUS DIRECTED PRN sodium chloride 0.9 % (flush) 10 mL (BD POSIFLUSH) 10 mL INTRAVENOUS DIRECTED PRN FAMILY HISTORY Problem Relation Age of Onset Cancer Mother KIDNEY Coronary Artery Disease Mother Lipids Mother Stroke Mother Cancer Father LUNG other (fibromyalgia) Sister Prostate Cancer Brother Social History Tobacco Use Smoking status: Former Packs/day: 1.00 Years: 10.00 Pack years: 10.00 Types: Cigarettes Quit date: 07/18/1971 Years since quittin.3 Smokeless tobacco: Never Vaping Use Vaping Use: Never used Substance Use Topics Alcohol use: Yes Alcohol/week: 5.0 standard drinks Types: 2 Cans of Beer (12oz) per week Drug use: No REVIEW OF SYSTEMS GENERAL: No weight loss, malaise or fevers/chills HEENT: Negative for frequent or significant headaches, No changes in hearing or vision. NECK: Negative for lumps, goiter, pain and significant neck swelling RESPIRATORY: Negative for cough, hemoptysis, wheezing, dyspnea or shortness of breath CARDIOVASCULAR: Negative for chest pain, leg swelling, orthopnea, or palpitations GI: No nausea, vomiting, or diarrhea/constipation. No hematochezia/melena. No heartburn or reflux symptoms. : No history of dysuria, frequency or incontinence MUSCULOSKELETAL: Negative for joint pain or swelling. SKIN: Negative for lesions, rash, and itching ENDOCRINE: Negative for cold or heat intolerance, polyuria, polydipsia and goiter NEURO: No history of headaches, syncope, paralysis, seizures or tremors MOOD: Negative for depression, anxiety, or suicidal ideation. EXAM: BP 130/88 Pulse 83 Resp 16 Wt 81.6 kg (180 lb) SpO2 100% BMI 25.46 kg/m PHYSICAL EXAM: General Appearance: Well appearing, alert, in no acute distress, well-hydrated, well nourished. Skin: Skin color, texture, turgor normal, no suspicious rashes or lesions. Head: Normocephalic, no masses, lesions, tenderness or abnormalities. Eyes: Anicteric sclera. Extraocular movements are intact. Lungs: Lungs clear to auscultation. No wheezing, rhonchi, rales. Heart: RRR without murmur, gallop, or rubs. No ectopy. Extremities: No deformities, edema, skin discoloration, clubbing or cyanosis. Good capillary refill. Musculoskeletal: No joint swelling, deformity, or tenderness. Peripheral Pulses: Normal, Capillary refill <2secs, strong peripheral pulses, Pulses palpable. Neurologic: Gait normal. Sensation grossly intact. ASSESSMENT/PLAN: 1. Atrial fibrillation, unspecified type (HCC) - ICD9: 427.31, ICD10: I48.91 (primary diagnosis) - Continue to take medication as prescribed. - Keep scheduled appointments with cardiology. - Red flag symptoms given to patient, he verbalizes understanding when to seek emergency care 2. BENIGN HYPERTENSION - ICD9: 401.1, ICD10: I10 - good control - Continue current medication(s) - Recommended regular aerobic exercise. - Recommend home blood pressure monitoring, to bring results in on next visit - Discussed need and benefit for weight loss. - Goal of BP <130/80 3. Mixed hyperlipidemia - ICD9: 272.2, ICD10: E78.2 - good control - Continue current medication. 4. GERD without esophagitis - ICD9: 530.81, ICD10: K21.9 - Discussed lifestyle modifications including losing weight, limiting caffeine, no meals three hours before sleep, and head of bed elevation. - Stable, continue current medication. 5. Gout involving toe of right foot, unspecified cause, unspecified chronicity - ICD9: 274.9, ICD10: M10.9 - Stable. - Continue to take all medication as prescribed - Keep scheduled appointments with podiatry Follow-up in 6 months or sooner as needed. Discussed treatment plan and patient voices understanding. Patient's questions answered appropriately. Medications and potential side effects were discussed and patient voices understanding. Ruth Perez APRN.CNP This note was partially generated using [employer] voice recognition system. Note was reviewed for accuracy. There may be minor misspellings or grammar miscues with [employer] voice recognition. documented in this encounter [facility] 10-25-2022 Note HNO ID: [id number] Author: Karina Cline Service: ? Author Type: Physician Type: Progress Notes Filed: 10/25/2022 1:47 PM Note Text: FOLLOW UP PODIATRIC OFFICE VISIT Chief Complaint: This 77 year old who presents for follow up:left 2nd toe swelling Patient presents to clinic for follow-up left 2nd toe. The pain and swelling in the left 2nd toe has improved but he still has swelling across the lateral foot He has concerns with the swelling. He has iced his ankle and foot. He took the oral steroid and augmentin. Patient states the pain in the left 2nd toe is better but most of his pain is along the lateral 5th ray. He has had injection in the psat and these have helped PAIN EVALUATION 10/25/2022 1258 Pain Level: 8 Pain Location: Toe Description: Burning Duration Amount of Time: 2 Duration Units: Weeks Frequency: Continuous Intervention/Comfort measure: Relaxation;Reposition;Medication Hemoglobin A1C Date Value Ref Range Status 10/06/2021 5.5 4.3 - 5.6 % Final Comment: [place] [employer] guidelines indicate that patients with HgbA1c in the range 5.7-6.4% are at increased risk for development of diabetes, and intervention by lifestyle modification may be beneficial. HgbA1c greater or equal to 6.5% is considered diagnostic of diabetes. PCP: Federico Vigil MD PAST MEDICAL HISTORY Diagnosis Date Allergic rhinitis, cause unspecified Arthritis Benign neoplasm of colon Carotid artery stenosis Diverticulosis of colon (without mention of hemorrhage) Essential hypertension, benign Gout, unspecified H/O carotid stenosis Hepatomegaly Internal hemorrhoids without mention of complication Other and unspecified hyperlipidemia Snoring Current Outpatient Medications Medication Sig allopurinol (ZYLOPRIM) 100 mg tablet TAKE 1 TABLET BY MOUTH TWICE A DAY apixaban (ELIQUIS) 5 mg tab(s) TWICE A DAY clopidogrel (PLAVIX) 75 mg tablet Take 75 mg by mouth once daily. Melatonin 5 mg cap AT BEDTIME furosemide (LASIX) 40 mg tablet Take 1 tablet by mouth once daily. pantoprazole DR (PROTONIX) 20 mg tablet Take 1 tablet by mouth daily before breakfast. Take on empty stomach, 1/2 hr before meal. simvastatin (ZOCOR) 20 mg tablet Take 1 tablet by mouth once daily. sildenafil (VIAGRA) 100 mg tablet Take 1/2 to 1 tablet by mouth 1 hour prior to anticipated intercourse. POTASSIUM-99 ORAL Take 99 % by mouth twice daily. lisinopril (ZESTRIL, PRINIVIL) 10 mg tablet Take 1 tablet by mouth once daily. (Patient taking differently: Take 10 mg by mouth once daily. 2.5 mg daily) coenzyme Q10 (COENZYME Q-10) 100 mg cap capsule Take 100 mg by mouth once daily. omega 3-sye-tnz-fish oil 500-100-1,000 mg cap Take 1 capsule by mouth once daily. multivitamins ORAL Liqd TAKES 1 OUNCE DAILY colchicine (COLCRYS) 0.6 mg tablet Take 1 tablet by mouth twice daily for 10 days. metoprolol succinate ER (TOPROL XL) 25 mg 24 hr tablet TAKE 1 TABLET BY MOUTH EVERY DAY (Patient not taking: Reported on 10/25/2022) omeprazole (PRILOSEC) 20 mg capsule TAKE 1 CAPSULE BY MOUTH EVERY DAY (Patient not taking: No sig reported) aspirin 81 mg chewable tablet Take 81 mg by mouth once daily. (Patient not taking: Reported on 10/25/2022) Current Facility-Administered Medications Medication Dose Route Frequency perflutren lipid microspheres 1.3 mL in NaCl (PF) 0.9% 10 mL injection (DEFINITY) INTRAVENOUS DIRECTED PRN sodium chloride 0.9 % (flush) 10 mL (BD POSIFLUSH) 10 mL INTRAVENOUS DIRECTED PRN ALLERGIES Allergen Reactions Indocin [Indomethac* Diarrhea Mobic [Meloxicam] Diarrhea PAST SURGICAL HISTORY Procedure Laterality Date ARTHROPLASTY TOTAL SHOULDER 06/2011 Dr. Benitez. ARTHRP ACETBLR/PROX FEM PROSTC AGRFT/ALGRFT 04/2012 Dr. Wood> [facility] ARTHRP KNE CONDYLEANDPLATU MEDIALANDLAT COMPARTMENTS Right COLONOSCOPY W/BIOPSY SINGLE/MULTIPLE 08/24/2006 EGD 12/01/2020 EYE SURGERY HX JOINT REPLACEMENT HX OPEN REPAIR OF ROTATOR CUFF ACUTE 10/03/2008 Rotator cuff repair-right PAST SURGICAL HISTORY OF right knee scope PAST SURGICAL HISTORY OF cataract both eyes TONSILLECTOMY HX TONSILLECTOMY PRIMARY/SECONDARY Tonsillectomy and adnoids Physical Exam: OBJECTIVE: Constitutional: Pt is a well developed 77 year old male who is alert, oriented, cooperative and in no apparent distress. Eyes: Following during examination. No redness or drainage. Respiratory: RR normal and nonlabored. Even breathing. No evidence of distress. Psychology: Patient is engaged during conversation. Normal affect and mood. Does not appear depressed or anxious. NVSI unchanged from previous visit. Dermatological: No open sores noted to left foot. Musculoskeletal/Orthopaedic: Patient has pain to palpation of left 5th metatarsal/tailors bunion Moderate swelling is noted to left foot but no calf pain noted. Tailors bunion present to left foot Swelling a (more content not included)... [facility] 10-25-2022 Note HNO ID: [id number] Author: Rosemary Desouza RN Service: ? Author Type: ? Type: Progress Notes Filed: 10/25/2022 1:47 PM Note Text: AMB ROOMING INTAKE FLOWSHEET DATA Pain Pain Level: 8 Pain Location: Toe Description: Burning Duration Amount of Time: 2 Duration Units: Weeks Frequency: Continuous Intervention/Comfort measure: Relaxation, Reposition, Medication Patient presents with: Left 2nd Toe - Follow Up, Pain, Swelling Patient continues with pain and swelling in L 2nd toe since finishing antibiotics and colcrys. He says swelling has radiated to foot and ankle. [facility] 10-25-2022 Instructions Karina Cline - 10/25/2022 1:16 PM EDT STEROID INJECTION You have been injected with a corticosteroid and local anesthesia today. This should provide relief of symptoms for the next 8 hours or so. After this time frame you will likely experience an increase in pain symptoms again until the effects of the steroid start to work, which should occur within 24-48 hours. Approximately 2% of individuals may experience a post injection flare or severe worsening of symptoms following injection. If this occurs ice the area and take Tylenol or Aleve for pain. In some very rare instances skin depigmentation and joint infection may occur. Joint infection is a concern if you experience any of the following: pain for more than 48 hours after the injection pain develops more than 2 days after the injection the area becomes red, hot or swollen you develop a fever following the injection Corticosteroid injections can also rarely interfere with the healing process and weaken tendons, sometimes causing tendons to rupture. Repeated injections of steroids can also damage joint cartilage. For these reasons, there are limits to how many times and how frequently corticosteroid injections can be used in the same area. If anything seems unusual or out of the ordinary please contact our office as soon as possible for further instruction. documented in this encounter [facility] 10-25-2022 History of Present illness Narrative FOLLOW UP PODIATRIC OFFICE VISIT Chief Complaint: This 77 year old who presents for follow up:left 2nd toe swelling Patient presents to clinic for follow-up left 2nd toe. The pain and swelling in the left 2nd toe has improved but he still has swelling across the lateral foot He has concerns with the swelling. He has iced his ankle and foot. He took the oral steroid and augmentin. Patient states the pain in the left 2nd toe is better but most of his pain is along the lateral 5th ray. He has had injection in the psat and these have helped PAIN EVALUATION 10/25/2022 1258 Pain Level: 8 Pain Location: Toe Description: Burning Duration Amount of Time: 2 Duration Units: Weeks Frequency: Continuous Intervention/Comfort measure: Relaxation;Reposition;Medication Hemoglobin A1C Date Value Ref Range Status 10/06/2021 5.5 4.3 - 5.6 % Final Comment: [place] [employer] guidelines indicate that patients with HgbA1c in the range 5.7-6.4% are at increased risk for development of diabetes, and intervention by lifestyle modification may be beneficial. HgbA1c greater or equal to 6.5% is considered diagnostic of diabetes. PCP: Federico Vigil MD PAST MEDICAL HISTORY Diagnosis Date Allergic rhinitis, cause unspecified Arthritis Benign neoplasm of colon Carotid artery stenosis Diverticulosis of colon (without mention of hemorrhage) Essential hypertension, benign Gout, unspecified H/O carotid stenosis Hepatomegaly Internal hemorrhoids without mention of complication Other and unspecified hyperlipidemia Snoring Current Outpatient Medications Medication Sig allopurinol (ZYLOPRIM) 100 mg tablet TAKE 1 TABLET BY MOUTH TWICE A DAY apixaban (ELIQUIS) 5 mg tab(s) TWICE A DAY clopidogrel (PLAVIX) 75 mg tablet Take 75 mg by mouth once daily. Melatonin 5 mg cap AT BEDTIME furosemide (LASIX) 40 mg tablet Take 1 tablet by mouth once daily. pantoprazole DR (PROTONIX) 20 mg tablet Take 1 tablet by mouth daily before breakfast. Take on empty stomach, 1/2 hr before meal. simvastatin (ZOCOR) 20 mg tablet Take 1 tablet by mouth once daily. sildenafil (VIAGRA) 100 mg tablet Take 1/2 to 1 tablet by mouth 1 hour prior to anticipated intercourse. POTASSIUM-99 ORAL Take 99 % by mouth twice daily. lisinopril (ZESTRIL, PRINIVIL) 10 mg tablet Take 1 tablet by mouth once daily. (Patient taking differently: Take 10 mg by mouth once daily. 2.5 mg daily) coenzyme Q10 (COENZYME Q-10) 100 mg cap capsule Take 100 mg by mouth once daily. omega 9-wky-ksn-fish oil 500-100-1,000 mg cap Take 1 capsule by mouth once daily. multivitamins ORAL Liqd TAKES 1 OUNCE DAILY colchicine (COLCRYS) 0.6 mg tablet Take 1 tablet by mouth twice daily for 10 days. metoprolol succinate ER (TOPROL XL) 25 mg 24 hr tablet TAKE 1 TABLET BY MOUTH EVERY DAY (Patient not taking: Reported on 10/25/2022) omeprazole (PRILOSEC) 20 mg capsule TAKE 1 CAPSULE BY MOUTH EVERY DAY (Patient not taking: No sig reported) aspirin 81 mg chewable tablet Take 81 mg by mouth once daily. (Patient not taking: Reported on 10/25/2022) Current Facility-Administered Medications Medication Dose Route Frequency perflutren lipid microspheres 1.3 mL in NaCl (PF) 0.9% 10 mL injection (DEFINITY) INTRAVENOUS DIRECTED PRN sodium chloride 0.9 % (flush) 10 mL (BD POSIFLUSH) 10 mL INTRAVENOUS DIRECTED PRN ALLERGIES Allergen Reactions Indocin [Indomethac* Diarrhea Mobic [Meloxicam] Diarrhea PAST SURGICAL HISTORY Procedure Laterality Date ARTHROPLASTY TOTAL SHOULDER 06/2011 Dr. Benitez. ARTHRP ACETBLR/PROX FEM PROSTC AGRFT/ALGRFT 04/2012 Dr. Wood> [facility]. ARTHRP KNE CONDYLE&PLATU MEDIAL&LAT COMPARTMENTS Right COLONOSCOPY W/BIOPSY SINGLE/MULTIPLE 08/24/2006 EGD 12/01/2020 EYE SURGERY HX JOINT REPLACEMENT HX OPEN REPAIR OF ROTATOR CUFF ACUTE 10/03/2008 Rotator cuff repair-right PAST SURGICAL HISTORY OF right knee scope PAST SURGICAL HISTORY OF cataract both eyes TONSILLECTOMY HX TONSILLECTOMY PRIMARY/SECONDARY <AGE 12 Tonsillectomy and adnoids Physical Exam: OBJECTIVE: Constitutional: Pt is a well developed 77 year old male who is alert, oriented, cooperative and in no apparent distress. Eyes: Following during examination. No redness or drainage. Respiratory: RR normal and nonlabored. Even breathing. No evidence of distress. Psychology: Patient is engaged during conversation. Normal affect and mood. Does not appear depressed or anxious. NVSI unchanged from previous visit. Dermatological: No open sores noted to left foot. Musculoskeletal/Orthopaedic: Patient has pain to palpation of left 5th metatarsal/tailors bunion Moderate swelling is noted to left foot but no calf pain noted. Tailors bunion present to left foot Swelling and redness of left 2nd toe is resolved. ASSESSMENT: Acute gout involving toe of left foot, unspecified cause (primary encounter diagnosis) Pain in left foot Tailor's bunion of left foot PLAN: Discussed left 2nd toe swelling and redness. This has all resolved since oral steroid and antibiotic. Likely improved with oral steroid. He does have considerable pain and swelling of left foot mostly along the left 5th metatarsal. He had injection in April which helped. He would like an injection today. Informed him that there are risks of injection not limited to infection, pain, swelling, injury. If he had infection could make infection worse. He has no clinical signs of infection. He has elected to pursue. Patient elected to proceed with an injection to the left 5th metatarsal bursa today. The risks, benefits, potential complications, personnel present, and alternatives to this were discsussed. Pt elected to proceed. all questions were answered. no guarantees were given. A timeout was performed. patient properly identified. procedure site marked. Under aseptic technique an injection was performed to the left 5th metatarsal bursae using a mixture of cc of 0.5 % Marcaine plain, of kenalog and cc of dexamethazone Patient noted immediate improvement following injection. Will repeat blood work today. Discussed swelling. Was told by cardiology to discontinue. Would recommend compression stocking. Karina Cline DPM AMB ROOMING INTAKE FLOWSHEET DATA Pain Pain Level: 8 Pain Location: Toe Description: Burning Duration Amount of Time: 2 Duration Units: Weeks Frequency: Continuous Intervention/Comfort measure: Relaxation, Reposition, Medication Patient presents with: Left 2nd Toe - Follow Up, Pain, Swelling Patient continues with pain and swelling in L 2nd toe since finishing antibiotics and colcrys. He says swelling has radiated to foot and ankle. documented in this encounter [facility] 10-19-2022 Miscellaneous Notes Patient notified of results and provider's instructions. Patient verbalizes understanding. Patient states he just needs shot and he as an appointment on 11/02/2022. Nurys Stevens LPN documented in this encounter [facility] 10-18-2022 Miscellaneous Notes The following approved medication requests have been transmitted electronically. Requested Prescriptions Pending Prescriptions Disp Refills allopurinol (ZYLOPRIM) 100 mg tablet [Pharmacy Med Name: ALLOPURINOL 100 MG TABLET] 180 tablet 1 Sig: TAKE 1 TABLET BY MOUTH TWICE A DAY [facility]ani [facility] APRN.LIZET Patient has been identified by name and date of : Yes Requested Prescriptions Pending Prescriptions Disp Refills allopurinol (ZYLOPRIM) 100 mg tablet [Pharmacy Med Name: ALLOPURINOL 100 MG TABLET] 180 tablet 1 Sig: TAKE 1 TABLET BY MOUTH TWICE A DAY RX INSTRUCTIONS: Patient aware RX will be sent to pharmacy. No need to notify patient. Patient last office visit: 08/30/22 Patient next office visit: 10/27/22 Luma Keyes MA documented in this encounter [facility] 10-13-2022 Miscellaneous Notes I called patient and spoke to He started the medication He just started yesterday Will check back later in week to see how he is doing Informed patient that I am out of town next week so if issues arise, present to hospital Karina Cline DPM I attempted to contact patient but no answer. I am going to hold on colcrys and give him oral steroid. I am also going to call in antibiotic as precaution as blood work was slightly elevated Left message. Karina Cline DPM Spoke with Pharmacy, they state that the interaction is with patient's Simvastatin and can cause muscle pain. Notified Dr. Cline. Will wait for further instructions. Pt called back again stating pharmacy will not fill script until they are contacted from Dr. Berkowitz office due to medication interactions. She is asking that either that happens or they receive a call back. She stated the patient had a rough night as he is in a ton of pain with what they believe is gout. Please contact patient.Seema Kitchen RN Patient's called stating she went to [facility] colchicine (COLCRYS) 0.6 mg tablet, pharmacy stated they are waiting on a reply from doctor. Please review and advise pharmacy and patient. Pascale Walker LPN documented in this encounter [facility] 10-11-2022 Note HNO ID: [id number] Author: RT Mackenzie(R) Service: ? Author Type: Technologist Type: Progress Notes Filed: 10/11/2022 2:32 PM Note Text: Radiology Service Progress Note PATIENT NAME: Shelton Kay DATE OF SERVICE: October 11, 2022 TIME: 2:31 PM PATIENT IDENTITY VERIFICATION COMPLETED USING TWO (2) IDENTIFIERS: Name and Date of confirmed by patient verbally. FALL SCREENING: Has the patient had 2 falls in the last year or 1 fall with injury or currently using an Ambulatory Assistive Device (Walker, Cane, Wheelchair, Crutches, etc.)? No PATIENT GENDER DATA: Male PATIENT RELEVANT IMPLANT DATA REVIEWED: Not Applicable RADIOLOGY DEPARTMENT: General X-ray: Exam(s) Completed: Lower Extremity X-Ray(s): Foot, Left, NON WT BEARING PERIPHERAL IV DATA: Not applicable SIGNED BY: RT Mackenzie(R) October 11, 2022 2:31 PM [facility] 10-11-2022 Note HNO ID: [id number] Author: Karina Cline Service: ? Author Type: Physician Type: Progress Notes Filed: 10/11/2022 2:05 PM Note Text: Initial Podiatric Office Visit: Chief Complaint: This 77 year old male who presents with chief complaint:left 2nd toe pain and swelling HPI Patient presents to clinic for evaluation of left 2nd toe. He has swelling and redness to his left 2nd toe that has been present for 4-5 days. He denies any pain but he is concerned about the overall appearance. Patient was recently on oral steroid (possibly 3-4 weeks ago). Patient is on allopurinol but he does not feel it is helping. Patient does not recall any injury Patient is here because he has acute swelling, redness and pain of left 2nd toe. Patient had two stents placed last week. He is on eliquis. He had injection of left 5th metatarsal last office visit. He has no pain currently in 5th toe. PAIN EVALUATION 10/11/2022 1305 Pain Level: 10 Pain Location: Foot-Left Description: Other: See comment Tender Duration Amount of Time: 1 Duration Units: Weeks Frequency: Intermittent Intervention/Comfort measure: Reposition;Relaxation;Cold;Medica tion Hemoglobin A1C (%) Date Value 10/06/2021 5.5 04/09/2021 5.5 HBA1C, [place] (%) Date Value 06/24/2010 5.2 06/06/2007 5.1 PCP: Federico Vigil MD PAST MEDICAL HISTORY Diagnosis Date Allergic rhinitis, cause unspecified Arthritis Benign neoplasm of colon Carotid artery stenosis Diverticulosis of colon (without mention of hemorrhage) Essential hypertension, benign Gout, unspecified H/O carotid stenosis Hepatomegaly Internal hemorrhoids without mention of complication Other and unspecified hyperlipidemia Snoring Current Outpatient Medications Medication Sig apixaban (ELIQUIS) 5 mg tab(s) TWICE A DAY allopurinol (ZYLOPRIM) 100 mg tablet TWICE A DAY Melatonin 5 mg cap AT BEDTIME clopidogrel (PLAVIX) 75 mg tablet Take 75 mg by mouth once daily. metoprolol succinate ER (TOPROL XL) 25 mg 24 hr tablet TAKE 1 TABLET BY MOUTH EVERY DAY furosemide (LASIX) 40 mg tablet Take 1 tablet by mouth once daily. pantoprazole DR (PROTONIX) 20 mg tablet Take 1 tablet by mouth daily before breakfast. Take on empty stomach, 1/2 hr before meal. omeprazole (PRILOSEC) 20 mg capsule TAKE 1 CAPSULE BY MOUTH EVERY DAY (Patient not taking: Reported on 08/05/2022) simvastatin (ZOCOR) 20 mg tablet Take 1 tablet by mouth once daily. sildenafil (VIAGRA) 100 mg tablet Take 1/2 to 1 tablet by mouth 1 hour prior to anticipated intercourse. POTASSIUM-99 ORAL Take 99 % by mouth twice daily. lisinopril (ZESTRIL, PRINIVIL) 10 mg tablet Take 1 tablet by mouth once daily. (Patient not taking: Reported on 08/30/2022) aspirin 81 mg chewable tablet Take 81 mg by mouth once daily. coenzyme Q10 (COENZYME Q-10) 100 mg cap capsule Take 100 mg by mouth once daily. omega 4-cxo-tkq-fish oil 500-100-1,000 mg cap Take 1 capsule by mouth once daily. multivitamins ORAL Liqd TAKES 1 OUNCE DAILY Current Facility-Administered Medications Medication Dose Route Frequency perflutren lipid microspheres 1.3 mL in NaCl (PF) 0.9% 10 mL injection (DEFINITY) INTRAVENOUS DIRECTED PRN sodium chloride 0.9 % (flush) 10 mL (BD POSIFLUSH) 10 mL INTRAVENOUS DIRECTED PRN ALLERGIES Allergen Reactions Indocin [Indomethac* Diarrhea Mobic [Meloxicam] Diarrhea PAST SURGICAL HISTORY Procedure Laterality Date ARTHROPLASTY TOTAL SHOULDER 06/2011 Dr. Benitez. ARTHRP ACETBLR/PROX FEM PROSTC AGRFT/ALGRFT 04/2012 Dr. Wood> [facility] ARTHRP KNE CONDYLEANDPLATU MEDIALANDLAT COMPARTMENTS Right COLONOSCOPY W/BIOPSY SINGLE/MULTIPLE 08/24/2006 EGD 12/01/2020 EYE SURGERY HX JOINT REPLACEMENT HX OPEN REPAIR OF ROTATOR CUFF ACUTE 10/03/2008 Rotator cuff repair-right PAST SURGICAL HISTORY OF right knee scope PAST SURGICAL HISTORY OF cataract both eyes TONSILLECTOMY HX TONSILLECTOMY PRIMARY/SECONDARY Tonsillectomy and adnoids FAMILY HISTORY Problem Relation Age of Onset Cancer Mother KIDNEY Coronary Artery Disease Mother Lipids Mother Stroke Mother Cancer Father LUNG other (fibromyalgia) Sister Prostate Cancer Brother Social History Tobacco Use Smoking status: Former Packs/day: 1.00 Years: 10.00 Pack years: 10.00 Types: Cigarettes Quit date: 07/18/1971 Years since quittin.2 Smokeless tobacco: Never Vaping Use Vaping Use: Never used Substance Use Topics Alcohol use: Yes Alcohol/week: 5.0 standard drinks Types: 2 Cans of Beer (12oz) per week Drug use: No REVIEW OF SYSTEMS GENERAL: Negative for Malaise, significant weight loss, fever RESPIRATORY: Negative for cough, wheezing and shortness of breath CARDIOVASCULAR: Negative for chest pain, leg swelling and palpitations GI: Negative for abdominal discomfort, blood in stools or black stools and change in bowel habits : Negative for dysuria, (more content not included)... [facility] 10-11-2022 Note HNO ID: [id number] Author: Nurys Steevns LPN Service: ? Author Type: LICENSED NURSE Type: Progress Notes Filed: 10/11/2022 2:05 PM Note Text: AMB ROOMING INTAKE FLOWSHEET DATA Pain Pain Level: 10 Pain Location: Foot-Left Description: Other: See comment (Tender) Duration Amount of Time: 1 Duration Units: Weeks Frequency: Intermittent Intervention/Comfort measure: Reposition, Relaxation, Cold, Medication Patient presents with: Left Foot - Established Patient, Follow Up, Pain, Swelling Patient present to office with redness and swelling and pain rating 10/10 when touched. Nurys Stevens LPN [facility] 10-11-2022 History of Present illness Narrative Images from the original note were not included. Initial Podiatric Office Visit: Chief Complaint: This 77 year old male who presents with chief complaint:left 2nd toe pain and swelling HPI Patient presents to clinic for evaluation of left 2nd toe. He has swelling and redness to his left 2nd toe that has been present for 4-5 days. He denies any pain but he is concerned about the overall appearance. Patient was recently on oral steroid (possibly 3-4 weeks ago). Patient is on allopurinol but he does not feel it is helping. Patient does not recall any injury Patient is here because he has acute swelling, redness and pain of left 2nd toe. Patient had two stents placed last week. He is on eliquis. He had injection of left 5th metatarsal last office visit. He has no pain currently in 5th toe. PAIN EVALUATION 10/11/2022 1305 Pain Level: 10 Pain Location: Foot-Left Description: Other: See comment Tender Duration Amount of Time: 1 Duration Units: Weeks Frequency: Intermittent Intervention/Comfort measure: Reposition;Relaxation;Cold;Medica tion Hemoglobin A1C (%) Date Value 10/06/2021 5.5 04/09/2021 5.5 HBA1C, [place] (%) Date Value 06/24/2010 5.2 06/06/2007 5.1 PCP: Federico Vigil MD PAST MEDICAL HISTORY Diagnosis Date Allergic rhinitis, cause unspecified Arthritis Benign neoplasm of colon Carotid artery stenosis Diverticulosis of colon (without mention of hemorrhage) Essential hypertension, benign Gout, unspecified H/O carotid stenosis Hepatomegaly Internal hemorrhoids without mention of complication Other and unspecified hyperlipidemia Snoring Current Outpatient Medications Medication Sig apixaban (ELIQUIS) 5 mg tab(s) TWICE A DAY allopurinol (ZYLOPRIM) 100 mg tablet TWICE A DAY Melatonin 5 mg cap AT BEDTIME clopidogrel (PLAVIX) 75 mg tablet Take 75 mg by mouth once daily. metoprolol succinate ER (TOPROL XL) 25 mg 24 hr tablet TAKE 1 TABLET BY MOUTH EVERY DAY furosemide (LASIX) 40 mg tablet Take 1 tablet by mouth once daily. pantoprazole DR (PROTONIX) 20 mg tablet Take 1 tablet by mouth daily before breakfast. Take on empty stomach, 1/2 hr before meal. omeprazole (PRILOSEC) 20 mg capsule TAKE 1 CAPSULE BY MOUTH EVERY DAY (Patient not taking: Reported on 08/05/2022) simvastatin (ZOCOR) 20 mg tablet Take 1 tablet by mouth once daily. sildenafil (VIAGRA) 100 mg tablet Take 1/2 to 1 tablet by mouth 1 hour prior to anticipated intercourse. POTASSIUM-99 ORAL Take 99 % by mouth twice daily. lisinopril (ZESTRIL, PRINIVIL) 10 mg tablet Take 1 tablet by mouth once daily. (Patient not taking: Reported on 08/30/2022) aspirin 81 mg chewable tablet Take 81 mg by mouth once daily. coenzyme Q10 (COENZYME Q-10) 100 mg cap capsule Take 100 mg by mouth once daily. omega 8-ktn-qyi-fish oil 500-100-1,000 mg cap Take 1 capsule by mouth once daily. multivitamins ORAL Liqd TAKES 1 OUNCE DAILY Current Facility-Administered Medications Medication Dose Route Frequency perflutren lipid microspheres 1.3 mL in NaCl (PF) 0.9% 10 mL injection (DEFINITY) INTRAVENOUS DIRECTED PRN sodium chloride 0.9 % (flush) 10 mL (BD POSIFLUSH) 10 mL INTRAVENOUS DIRECTED PRN ALLERGIES Allergen Reactions Indocin [Indomethac* Diarrhea Mobic [Meloxicam] Diarrhea PAST SURGICAL HISTORY Procedure Laterality Date ARTHROPLASTY TOTAL SHOULDER 06/2011 Dr. Benitez. ARTHRP ACETBLR/PROX FEM PROSTC AGRFT/ALGRFT 04/2012 Dr. Wood> [facility]. ARTHRP KNE CONDYLE&PLATU MEDIAL&LAT COMPARTMENTS Right COLONOSCOPY W/BIOPSY SINGLE/MULTIPLE 08/24/2006 EGD 12/01/2020 EYE SURGERY HX JOINT REPLACEMENT HX OPEN REPAIR OF ROTATOR CUFF ACUTE 10/03/2008 Rotator cuff repair-right PAST SURGICAL HISTORY OF right knee scope PAST SURGICAL HISTORY OF cataract both eyes TONSILLECTOMY HX TONSILLECTOMY PRIMARY/SECONDARY <AGE 12 Tonsillectomy and adnoids FAMILY HISTORY Problem Relation Age of Onset Cancer Mother KIDNEY Coronary Artery Disease Mother Lipids Mother Stroke Mother Cancer Father LUNG other (fibromyalgia) Sister Prostate Cancer Brother Social History Tobacco Use Smoking status: Former Packs/day: 1.00 Years: 10.00 Pack years: 10.00 Types: Cigarettes Quit date: 07/18/1971 Years since quittin.2 Smokeless tobacco: Never Vaping Use Vaping Use: Never used Substance Use Topics Alcohol use: Yes Alcohol/week: 5.0 standard drinks Types: 2 Cans of Beer (12oz) per week Drug use: No REVIEW OF SYSTEMS GENERAL: Negative for Malaise, significant weight loss, fever RESPIRATORY: Negative for cough, wheezing and shortness of breath CARDIOVASCULAR: Negative for chest pain, leg swelling and palpitations GI: Negative for abdominal discomfort, blood in stools or black stools and change in bowel habits : Negative for dysuria, frequency and incontinence MUSCULOSKELETAL: Negative for joint pain or swelling, back pain, and muscle pain. SKIN: Negative for lesions, rash, and itching. HEMATOLOGY/LYMPHOLOGY Negative for prolonged bleeding, bruising easily, and swollen nodes. ENDOCRINE: Negative for cold or heat intolerance, polyuria, polydipsia and goiter. NEURO: negative Physical Exam: Constitutional: Pt is a well developed 77 year old male who is alert, oriented and cooperative Eyes: Following during examination. No redness or drainage. Respiratory: RR normal and nonlabored. Even breathing. No evidence of distress or shortness of breath. Psychology: Patient is engaged during conversation. Normal affect and mood. Does not appear depressed or anxious during encounter. Vascular: Dorsalis pedis and posterior tibial pulses nonpalpable left Capillary Fill time < 5 seconds to digits 1-5 left Skin temperature warm to warm proximal to distal left Hair growth present to digits Left 2nd toe is visibly swollen and red. Picture in epic Neurological: intact light touch/epicritic sensation left intact protective sensation no significant neurological deficits Dermatological: No open wounds noted to left foot. Redness present to left 2nd toe Musculoskeletal/Orthopaedic: Patient has pain to palpation of left 2nd toe at pipj Visible swelline is noted to left 2nd toe and left forefoot Radiographs: 3 views left foot reviewed October 11, 2022: I have personally reviewed and interpreted these XR myself: no acute fracture ASSESSMENT: (M10.9) Acute gout involving toe of left foot, unspecified cause (primary encounter diagnosis) (M79.672) Pain in left foot PLAN: 1. History and physical examination performed. 2. XR reviewed with patient and interpreted today 3. Discussed swelling and pain in left 2nd toe. Differential includes gout vs cellulitis vs fracture. Patient has no known injury and has no open wounds so at this present time, favor more gout. Will check esr, crp, cbc, uric acid 4. Will repeat xrays to evaluate for possible fracture vs lytic changes that would support an infection. 5. Discussed oral steroid vs colcrys. He was on oral steroid in the past and minimal improvement. Will start him on colcrys. Will follow-up with him via phone call later this week to check on him 6. Will call with results. Karina Cline DPM Podiatry [address] [facility] [address] Dept: [phone] Dept AMB ROOMING INTAKE FLOWSHEET DATA Pain Pain Level: 10 Pain Location: Foot-Left Description: Other: See comment (Tender) Duration Amount of Time: 1 Duration Units: Weeks Frequency: Intermittent Intervention/Comfort measure: Reposition, Relaxation, Cold, Medication Patient presents with: Left Foot - Established Patient, Follow Up, Pain, Swelling Patient present to office with redness and swelling and pain rating 10/10 when touched. Nurys Stevens LPN documented in this encounter [facility] 10-11-2022 Miscellaneous Notes Patient scheduled for 10/11/2022. Nurys Stevens LPN Patient returned office call and has been scheduled with Dr. Cline on 10/14. Patient voiced understanding. Called patient to offer sooner appointments. No response. Left VM. Nurys Stevens LPN documented in this encounter [facility] 09-27-2022 Note HNO ID: [id number] Author: RT Damion(R) Service: ? Author Type: Mix Mill Tender Type: Progress Notes Filed: 09/27/2022 9:35 AM Note Text: Radiology Service Progress Note PATIENT NAME: Shelton Kay DATE OF SERVICE: September 27, 2022 TIME: 9:21 AM PATIENT IDENTITY VERIFICATION COMPLETED USING TWO (2) IDENTIFIERS: Name and Date of confirmed by patient verbally. FALL SCREENING: Has the patient had 2 falls in the last year or 1 fall with injury or currently using an Ambulatory Assistive Device (Walker, Cane, Wheelchair, Crutches, etc.)? No PATIENT GENDER DATA: Male PATIENT RELEVANT IMPLANT DATA REVIEWED: Yes RADIOLOGY DEPARTMENT: General X-ray: Exam(s) Completed: Lower Extremity X-Ray(s): Foot, Left PERIPHERAL IV DATA: Not applicable SIGNED BY: RT Damion(R) September 27, 2022 9:21 AM [facility] 09-27-2022 Note HNO ID: [id number] Author: Josiah Christopher APRN.[facility] Service: ? Author Type: Nurse Practitioner Type: Progress Notes Filed: 09/27/2022 10:42 AM Note Text: Subjective Patient came in with complaints of left foot and left middle toe pain. Patient does have a history of gout. Patient assumed it was gout at first. But patient has never had gout in his foot. Patient does take allopurinol regularly. Patient denies any numbness tingling or loss of feeling. Patient says it started a day and a half ago. Patient denies any injury to the area. The history is provided by the patient. No language instructor was used. Pain (foot) Review of Systems Constitutional: Negative. Skin: Negative. Objective Physical Exam Constitutional: Appearance: Normal appearance. Pulmonary: Effort: Pulmonary effort is normal. Musculoskeletal: Feet: Feet: Comments: Erythema located where the red area is marked above as well as swelling. The purple area marked above is area where patient also has pain when palpated. No swelling noted in the area. Neurological: Mental Status: He is alert. PAST MEDICAL HISTORY Diagnosis Date Allergic rhinitis, cause unspecified Arthritis Benign neoplasm of colon Carotid artery stenosis Diverticulosis of colon (without mention of hemorrhage) Essential hypertension, benign Gout, unspecified H/O carotid stenosis Hepatomegaly Internal hemorrhoids without mention of complication Other and unspecified hyperlipidemia Snoring PAST SURGICAL HISTORY Procedure Laterality Date ARTHROPLASTY TOTAL SHOULDER 06/2011 Dr. Benitez. ARTHRP ACETBLR/PROX FEM PROSTC AGRFT/ALGRFT 04/2012 Dr. Wood> [facility] ARTHRP KNE CONDYLEANDPLATU MEDIALANDLAT COMPARTMENTS Right COLONOSCOPY W/BIOPSY SINGLE/MULTIPLE 08/24/2006 EGD 12/01/2020 EYE SURGERY HX JOINT REPLACEMENT HX OPEN REPAIR OF ROTATOR CUFF ACUTE 10/03/2008 Rotator cuff repair-right PAST SURGICAL HISTORY OF right knee scope PAST SURGICAL HISTORY OF cataract both eyes TONSILLECTOMY HX TONSILLECTOMY PRIMARY/SECONDARY Tonsillectomy and adnoids ALLERGIES Indocin [Indomethacin Sodium] and Mobic [Meloxicam] MEDICATIONS metoprolol succinate ER (TOPROL XL) 25 mg 24 hr tabletTAKE 1 TABLET BY MOUTH EVERY DAYDisp: 30 tabletRfl: 5 furosemide (LASIX) 40 mg tabletTake 1 tablet by mouth once daily.Disp: 30 tabletRfl: 0 apixaban (ELIQUIS) 5 mg tab(s)Take 1 tablet by mouth twice daily.Disp: 60 tabletRfl: 5 simvastatin (ZOCOR) 20 mg tabletTake 1 tablet by mouth once daily.Disp: 90 tabletRfl: 3 sildenafil (VIAGRA) 100 mg tabletTake 1/2 to 1 tablet by mouth 1 hour prior to anticipated intercourse.Disp: 30 tabletRfl: 5 POTASSIUM-99 ORALTake 99 % by mouth twice daily.Disp: Rfl: aspirin 81 mg chewable tabletTake 81 mg by mouth once daily.Disp: Rfl: coenzyme Q10 (COENZYME Q-10) 100 mg cap capsuleTake 100 mg by mouth once daily.Disp: Rfl: omega 0-qoz-oaq-fish oil 500-100-1,000 mg capTake 1 capsule by mouth once daily. Disp: Rfl: multivitamins ORAL LiqdTAKES 1 OUNCE DAILYDisp: Rfl: methylPREDNISolone (MEDROL, PETRONA,) 4 mg Dose-PackTake as directedDisp: 21 tabletRfl: [address] (PROTONIX) 20 mg tabletTake 1 tablet by mouth daily before breakfast. Take on empty stomach, 1/2 hr before meal.Disp: 30 tabletRfl: 5 omeprazole (PRILOSEC) 20 mg capsuleTAKE 1 CAPSULE BY MOUTH EVERY DAYDisp: 90 capsuleRfl: 3 (Patient not taking: Reported on 08/05/2022) lisinopril (ZESTRIL, PRINIVIL) 10 mg tabletTake 1 tablet by mouth once daily.Disp: 90 tabletRfl: 3 (Patient not taking: Reported on 08/30/2022) FAMILY HISTORY Problem Relation Age of Onset Cancer Mother KIDNEY Coronary Artery Disease Mother Lipids Mother Stroke Mother Cancer Father LUNG other (fibromyalgia) Sister Prostate Cancer Brother Social History Tobacco Use Smoking status: Former Packs/day: 1.00 Years: 10.00 Pack years: 10.00 Types: Cigarettes Quit date: 07/18/1971 Years since quittin.2 Smokeless tobacco: Never Vaping Use Vaping Use: Never used Substance Use Topics Alcohol use: Yes Alcohol/week: 5.0 standard drinks Types: 2 Cans of Beer (12oz) per week Drug use: No ASSESSMENT/PLAN: 1. Pain - ICD9: 780.96, ICD10: R52 (primary diagnosis) - XR FOOT GENERAL 3V AP/LAT/OBL LEFT * * * * Physician Interpretation * * * * EXAMINATION: XR FOOT 3V AP/LAT/OBL LT CLINICAL HISTORY: Left foot pain Technique: XR FOOT 3V AP/LAT/OBL LT -- LEFT with 3 views on 3 images Comparison: X-ray left foot 04/20/2022 RESULT: No acute fracture or dislocation. Scattered interphalangeal joint space narrowing. Enthesophyte at the base of the left fifth metatarsal. Plantar and posterior calcaneal enthesophytes. Vascular calcifications are noted. 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 Acute (more content not included)... [facility] 09-27-2022 History of Present illness Narrative Images from the original note were not included. Subjective Patient came in with complaints of left foot and left middle toe pain. Patient does have a history of gout. Patient assumed it was gout at first. But patient has never had gout in his foot. Patient does take allopurinol regularly. Patient denies any numbness tingling or loss of feeling. Patient says it started a day and a half ago. Patient denies any injury to the area. The history is provided by the patient. No language instructor was used. Pain (foot) Review of Systems Constitutional: Negative. Skin: Negative. Objective Physical Exam Constitutional: Appearance: Normal appearance. Pulmonary: Effort: Pulmonary effort is normal. Musculoskeletal: Feet: Feet: Comments: Erythema located where the red area is marked above as well as swelling. The purple area marked above is area where patient also has pain when palpated. No swelling noted in the area. Neurological: Mental Status: He is alert. PAST MEDICAL HISTORY Diagnosis Date Allergic rhinitis, cause unspecified Arthritis Benign neoplasm of colon Carotid artery stenosis Diverticulosis of colon (without mention of hemorrhage) Essential hypertension, benign Gout, unspecified H/O carotid stenosis Hepatomegaly Internal hemorrhoids without mention of complication Other and unspecified hyperlipidemia Snoring PAST SURGICAL HISTORY Procedure Laterality Date ARTHROPLASTY TOTAL SHOULDER 06/2011 Dr. Benitez. ARTHRP ACETBLR/PROX FEM PROSTC AGRFT/ALGRFT 04/2012 Dr. Wood> [facility]. ARTHRP KNE CONDYLE&PLATU MEDIAL&LAT COMPARTMENTS Right COLONOSCOPY W/BIOPSY SINGLE/MULTIPLE 08/24/2006 EGD 12/01/2020 EYE SURGERY HX JOINT REPLACEMENT HX OPEN REPAIR OF ROTATOR CUFF ACUTE 10/03/2008 Rotator cuff repair-right PAST SURGICAL HISTORY OF right knee scope PAST SURGICAL HISTORY OF cataract both eyes TONSILLECTOMY HX TONSILLECTOMY PRIMARY/SECONDARY <AGE 12 Tonsillectomy and adnoids ALLERGIES Indocin [Indomethacin Sodium] and Mobic [Meloxicam] MEDICATIONS metoprolol succinate ER (TOPROL XL) 25 mg 24 hr tablet^TAKE 1 TABLET BY MOUTH EVERY DAY^Disp: 30 tablet^Rfl: 5 furosemide (LASIX) 40 mg tablet^Take 1 tablet by mouth once daily.^Disp: 30 tablet^Rfl: 0 apixaban (ELIQUIS) 5 mg tab(s)^Take 1 tablet by mouth twice daily.^Disp: 60 tablet^Rfl: 5 simvastatin (ZOCOR) 20 mg tablet^Take 1 tablet by mouth once daily.^Disp: 90 tablet^Rfl: 3 sildenafil (VIAGRA) 100 mg tablet^Take 1/2 to 1 tablet by mouth 1 hour prior to anticipated intercourse.^Disp: 30 tablet^Rfl: 5 POTASSIUM-99 ORAL^Take 99 % by mouth twice daily.^Disp: ^Rfl: aspirin 81 mg chewable tablet^Take 81 mg by mouth once daily.^Disp: ^Rfl: coenzyme Q10 (COENZYME Q-10) 100 mg cap capsule^Take 100 mg by mouth once daily.^Disp: ^Rfl: omega 9-dnr-cut-fish oil 500-100-1,000 mg cap^Take 1 capsule by mouth once daily. ^Disp: ^Rfl: multivitamins ORAL Liqd^TAKES 1 OUNCE DAILY^Disp: ^Rfl: methylPREDNISolone (MEDROL, PETRONA,) 4 mg Dose-Pack^Take as directed^Disp: 21 tablet^Rfl: [address] (PROTONIX) 20 mg tablet^Take 1 tablet by mouth daily before breakfast. Take on empty stomach, 1/2 hr before meal.^Disp: 30 tablet^Rfl: 5 omeprazole (PRILOSEC) 20 mg capsule^TAKE 1 CAPSULE BY MOUTH EVERY DAY^Disp: 90 capsule^Rfl: 3 (Patient not taking: Reported on 08/05/2022) lisinopril (ZESTRIL, PRINIVIL) 10 mg tablet^Take 1 tablet by mouth once daily.^Disp: 90 tablet^Rfl: 3 (Patient not taking: Reported on 08/30/2022) FAMILY HISTORY Problem Relation Age of Onset Cancer Mother KIDNEY Coronary Artery Disease Mother Lipids Mother Stroke Mother Cancer Father LUNG other (fibromyalgia) Sister Prostate Cancer Brother Social History Tobacco Use Smoking status: Former Packs/day: 1.00 Years: 10.00 Pack years: 10.00 Types: Cigarettes Quit date: 07/18/1971 Years since quittin.2 Smokeless tobacco: Never Vaping Use Vaping Use: Never used Substance Use Topics Alcohol use: Yes Alcohol/week: 5.0 standard drinks Types: 2 Cans of Beer (12oz) per week Drug use: No ASSESSMENT/PLAN: 1. Pain - ICD9: 780.96, ICD10: R52 (primary diagnosis) - XR FOOT GENERAL 3V AP/LAT/OBL LEFT * * * * Physician Interpretation * * * * EXAMINATION: XR FOOT 3V AP/LAT/OBL LT CLINICAL HISTORY: Left foot pain Technique: XR FOOT 3V AP/LAT/OBL LT -- LEFT with 3 views on 3 images Comparison: X-ray left foot 04/20/2022 RESULT: No acute fracture or dislocation. Scattered interphalangeal joint space narrowing. Enthesophyte at the base of the left fifth metatarsal. Plantar and posterior calcaneal enthesophytes. Vascular calcifications are noted. 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 Acute gout involving toe of left foot, unspecified cause - ICD9: 274.01, ICD10: M10.9 - PREDNISONE 10 MG TABLET Patient mentioned that he has a foot doctor's appointment later today. Was educated about x-ray results. Patient was educated that the pain in his foot could be spread of gout and pain related to gout. Was instructed that he should follow-up if the pain is persistent after treatment. Or worsening during treatment. Patient instructed to take the steroids as prescribed rest elevate foot. Increase his water. Patient was okay with this care plan. Josiah Christopher APRN.LIZET documented in this encounter [facility] 09-21-2022 Miscellaneous Notes The following approved medication requests have been transmitted electronically. Requested Prescriptions Pending Prescriptions Disp Refills metoprolol succinate ER (TOPROL XL) 25 mg 24 hr tablet [Pharmacy Med Name: METOPROLOL SUCC ER 25 MG TAB] 30 tablet 5 Sig: TAKE 1 TABLET BY MOUTH EVERY DAY Phani St APRN.LIZET Patient has been identified by name and date of : Yes Requested Prescriptions Pending Prescriptions Disp Refills metoprolol succinate ER (TOPROL XL) 25 mg 24 hr tablet [Pharmacy Med Name: METOPROLOL SUCC ER 25 MG TAB] 30 tablet 5 Sig: TAKE 1 TABLET BY MOUTH EVERY DAY RX INSTRUCTIONS: Patient aware RX will be sent to pharmacy. No need to notify patient. Patient last office visit: 08/30/22 Patient next office visit: 10/27/22 Luma Keyes MA documented in this encounter [facility] 03-02-2023 Miscellaneous Notes Called and spoke with and notified her of message below. She verbalized understanding and wanted to thank PCP for doing this. Going to a lot of appt's for Cardiology. Yasmeen Oliveros Ma I would suggest another Medrol dose petrona as ordered to clear up his attack. He has appt with Ruth in October. Federico Vigil MD Patient's is calling because he is having what she thinks is a gout flare of his left foot second toe. She says his toe is red, swollen, shiny, painful and warm. He had a flare in July of his right big toe. He is currently taking Allopurinol 100 mg twice daily. He started taking Lasix 40 mg on 09/07/22. She says the swelling has improved in both feet but now he noticed the swelling on the top of the left foot near the red toe. He used to take an NSAID (Aleve) for a mild flare but is now on Eliquis and cannot do so. She said he'd be willing to come in for an office visit. She is asking for a recommendation? Phylicia Alberts, RN documented in this encounter [facility] 09-14-2022 Miscellaneous Notes OK to refill as ordered Federico Vigil MD documented in this encounter [facility] 09-07-2022 Miscellaneous Notes Notified via [employer]. Janneth Burkett Ma OK for Lasix 40 mg daily as ordered Federico Vigil MD Patient's calls and states that patient has not been able to sleep due to cough. Patient's states that she had called [facility] and was told that it sounds like patient may need some lasix. Patient does have pitting edema to left foot. By the end of day patient has pitting edema to bilateral feet. states that [facility] nurse told her to call PCP for lasix since he has not had establish care visit with [facility] (this appointment is 09/13/2022). asking if provider can order lasix? Patient's pharmacy is [facility]. Please review and advise, Cynthia Sam RN documented in this encounter [facility] 09-06-2022 Miscellaneous Notes Order has been placed and faxed. Ruth Perez APRN.CNP Luma @ [facility] Cardiovascular Testing calling to request order for Nuclear Lexiscan. They were unable to perform Exercise Stress ECG due to patient is in A fib. Please fax order to [facility]. Phylicia Alberts RN documented in this encounter [facility] 09-01-2022 Miscellaneous Notes Noted, last office note, echo results, and EKG faxed to [facility] office. Ruth Perez APRN.CNP Patient notified of results, verbalizes understanding of instructions. Pt has appt. with [facility]. on Sep 13 Valarie Diaz LPN Can you please call the patient and let him know that I reviewed his echo results. Left ventricular systolic function is moderately decreased. Ejection fraction was 40%. Right ventricle normal function. There is mild mitral regurgitation noted. I would recommend that he continue on the Eliquis and metoprolol. I see he is scheduled for cardiology but not till January. If he is agreeable I can check with the [facility] at [facility] to see if they can see him sooner? Please let me know what he prefers. Thank you. Ruth Perez APRN.LIZET documented in this encounter [facility] 08-30-2022 Miscellaneous Notes Stress test order faxed to [facility]. Referral, demo, OV, lab, insurance card, faxed to [facility]. Janneth Burkett Ma Patient would like stress test sent to [facility] to complete as patient is current scheduled for 01/10 and they would also like cardiology consult sent to [facility] as first opening in [facility] is January 2023 documented in this encounter [facility] 08-30-2022 Note HNO ID: [id number] Author: Ruth Perez APRN.CNP Service: ? Author Type: Nurse Practitioner Type: Progress Notes Filed: 08/30/2022 12:16 PM Note Text: This is a 77 year old male who presents today with: Patient presents with: Acute Visit: continued cough HISTORY OF PRESENT ILLNESS: Shelton Kay is a 77 year old male. Patient presents with: Acute Visit: continued cough Here in the office for reoccurring cough. Ongoing cough for the past 2 weeks. Dry and hacking. Refill of Tessalon Perles sent in on 08/27/2022. Cough is dry. No wheezing. Refers he washing car over the weekend and got SOB, felt like he had ran. No chest pain, palpitations, or dizziness. Concerned that symptoms may be cardiac related. No fever, chills, sore throat, or sinus congestion. Stopped taking Lisinopril 2 weeks ago due to diastolic was in the 50's. Checking BP at home 130/60-70's. Feeling better since stopping medication. PAST MEDICAL HISTORY: PAST MEDICAL HISTORY Diagnosis Date Allergic rhinitis, cause unspecified Arthritis Benign neoplasm of colon Carotid artery stenosis Diverticulosis of colon (without mention of hemorrhage) Essential hypertension, benign Gout, unspecified H/O carotid stenosis Hepatomegaly Internal hemorrhoids without mention of complication Other and unspecified hyperlipidemia Snoring PAST SURGICAL HISTORY Procedure Laterality Date ARTHROPLASTY TOTAL SHOULDER 06/2011 Dr. Benitez. ARTHRP ACETBLR/PROX FEM PROSTC AGRFT/ALGRFT 04/2012 Dr. Wood> [facility]. ARTHRP KNE CONDYLEANDPLATU MEDIALANDLAT COMPARTMENTS Right COLONOSCOPY W/BIOPSY SINGLE/MULTIPLE 08/24/2006 EGD 12/01/2020 EYE SURGERY HX JOINT REPLACEMENT HX OPEN REPAIR OF ROTATOR CUFF ACUTE 10/03/2008 Rotator cuff repair-right PAST SURGICAL HISTORY OF right knee scope PAST SURGICAL HISTORY OF cataract both eyes TONSILLECTOMY HX TONSILLECTOMY PRIMARY/SECONDARY Tonsillectomy and adnoids ALLERGIES Indocin [Indomethacin Sodium] and Mobic [Meloxicam] MEDICATIONS Current Outpatient Medications Medication Sig benzonatate (TESSALON PERLE) 100 mg capsule Take 2 capsules by mouth three times daily as needed for cough for up to 10 days. allopurinol (ZYLOPRIM) 100 mg tablet Take 1 tablet by mouth twice daily. methylPREDNISolone (MEDROL, PETRONA,) 4 mg Dose-Pack Take as directed pantoprazole DR (PROTONIX) 20 mg tablet Take 1 tablet by mouth daily before breakfast. Take on empty stomach, 1/2 hr before meal. omeprazole (PRILOSEC) 20 mg capsule TAKE 1 CAPSULE BY MOUTH EVERY DAY (Patient not taking: Reported on 08/05/2022) simvastatin (ZOCOR) 20 mg tablet Take 1 tablet by mouth once daily. sildenafil (VIAGRA) 100 mg tablet Take 1/2 to 1 tablet by mouth 1 hour prior to anticipated intercourse. POTASSIUM-99 ORAL Take 99 % by mouth twice daily. lisinopril (ZESTRIL, PRINIVIL) 10 mg tablet Take 1 tablet by mouth once daily. aspirin 81 mg chewable tablet Take 81 mg by mouth once daily. coenzyme Q10 (COENZYME Q-10) 100 mg cap capsule Take 100 mg by mouth once daily. omega 3-izl-sci-fish oil 500-100-1,000 mg cap Take 1 capsule by mouth once daily. multivitamins ORAL Liqd TAKES 1 OUNCE DAILY No current facility-administered medications for this visit. FAMILY HISTORY Problem Relation Age of Onset Cancer Mother KIDNEY Coronary Artery Disease Mother Lipids Mother Stroke Mother Cancer Father LUNG other (fibromyalgia) Sister Prostate Cancer Brother Social History Tobacco Use Smoking status: Former Packs/day: 1.00 Years: 10.00 Pack years: 10.00 Types: Cigarettes Quit date: 07/18/1971 Years since quittin.1 Smokeless tobacco: Never Vaping Use Vaping Use: Never used Substance Use Topics Alcohol use: Yes Alcohol/week: 5.0 standard drinks Types: 2 Cans of Beer (12oz) per week Drug use: No REVIEW OF SYSTEMS GENERAL: No weight loss, malaise or fevers/chills HEENT: Negative for frequent or significant headaches, No changes in hearing or vision. NECK: Negative for lumps, goiter, pain and significant neck swelling RESPIRATORY: + Cough/SOB CARDIOVASCULAR: Negative for chest pain, leg swelling, orthopnea, or palpitations GI: No nausea, vomiting, or diarrhea/constipation. No hematochezia/melena. No heartburn or reflux symptoms. : No history of dysuria, frequency or incontinence MUSCULOSKELETAL: Negative for joint pain or swelling. SKIN: Negative for lesions, rash, and itching ENDOCRINE: Negative for cold or heat intolerance, polyuria, polydipsia and goiter NEURO: No history of headaches, syncope, paralysis, seizures or tremors MOOD: Negative for depression, anxiety, or suicidal ideation. EXAM: BP 120/78 Pulse 76 Resp 16 Wt 83.5 kg (184 lb) SpO2 97% BMI 26.03 kg/m? PHYSICAL EXAM: General Appearance: Well appearing, alert, in no acute distress, well-hydrated, well nourished. Skin: Skin color, texture, turgor normal, no suspici (more content not included)... [facility] 08-27-2022 Miscellaneous Notes The following approved medication requests have been transmitted electronically. Requested Prescriptions Signed Prescriptions Disp Refills benzonatate (TESSALON PERLE) 100 mg capsule 60 capsule 0 Sig: Take 2 capsules by mouth three times daily as needed for cough for up to 10 days. Authorizing Provider: RUTH PEREZ APRN.CNP Patient complains of a dry hacking cough for about 1 week. Worse at night while trying to sleep. Denies any fever, headache or chest tightness. Is requesting a refill of the tessalon capsules he was prescribed about 4 months ago. documented in this encounter [facility] 08-13-2022 Miscellaneous Notes Patient was notified Kellen Morejon Ma Can you please call the patient and let him know that I reviewed his lab result. Uric acid is elevated. I would like to go ahead and start him on allopurinol and recheck labs in 4 weeks. Take allopurinol 100 mg once daily for 1 week and increase to 100 mg twice daily. I sent prescription to [facility]. Please let me know if he have any questions. Thank you. The following approved medication requests have been transmitted electronically. Requested Prescriptions Signed Prescriptions Disp Refills allopurinol (ZYLOPRIM) 100 mg tablet 60 tablet 5 Sig: Take 1 tablet by mouth twice daily. Authorizing Provider: RUTH PEREZ APRN.CNP documented in this encounter [facility] 08-05-2022 Note HNO ID: [id number] Author: Ruth Perez APRN.CNP Service: ? Author Type: Nurse Practitioner Type: Progress Notes Filed: 08/05/2022 11:32 AM Note Text: This is a 76 year old male who presents today with: Patient presents with: Acute Visit: Gout right great toe HISTORY OF PRESENT ILLNESS: Shelton Kay is a 76 year old male. Patient presents with: Acute Visit: Gout right great toe Here in the office to follow-up from express care visit. Was seen for great right toe redness, swelling, tenderness. Diagnosed with gout. Given steroid. Questioning whether he can start allopurinol. This is the 2nd flare up since Reji. Steroids have helped with symptoms. Redness and tenderness has improved. Refers that he was on allopurinol several years ago but cannot remember why he stopped taking it. PAST MEDICAL HISTORY: PAST MEDICAL HISTORY Diagnosis Date Allergic rhinitis, cause unspecified Arthritis Benign neoplasm of colon Carotid artery stenosis Diverticulosis of colon (without mention of hemorrhage) Essential hypertension, benign Gout, unspecified H/O carotid stenosis Hepatomegaly Internal hemorrhoids without mention of complication Other and unspecified hyperlipidemia Snoring PAST SURGICAL HISTORY Procedure Laterality Date ARTHROPLASTY TOTAL SHOULDER 06/2011 Dr. Benitez. ARTHRP ACETBLR/PROX FEM PROSTC AGRFT/ALGRFT 04/2012 Dr. Wood> [facility]. ARTHRP KNE CONDYLEANDPLATU MEDIALANDLAT COMPARTMENTS Right COLONOSCOPY W/BIOPSY SINGLE/MULTIPLE 08/24/2006 EGD 12/01/2020 EYE SURGERY HX JOINT REPLACEMENT HX OPEN REPAIR OF ROTATOR CUFF ACUTE 10/03/2008 Rotator cuff repair-right PAST SURGICAL HISTORY OF right knee scope PAST SURGICAL HISTORY OF cataract both eyes TONSILLECTOMY HX TONSILLECTOMY PRIMARY/SECONDARY Tonsillectomy and adnoids ALLERGIES Indocin [Indomethacin Sodium] and Mobic [Meloxicam] MEDICATIONS Current Outpatient Medications Medication Sig methylPREDNISolone (MEDROL, PETRONA,) 4 mg Dose-Pack Take as directed pantoprazole DR (PROTONIX) 20 mg tablet Take 1 tablet by mouth daily before breakfast. Take on empty stomach, 1/2 hr before meal. omeprazole (PRILOSEC) 20 mg capsule TAKE 1 CAPSULE BY MOUTH EVERY DAY simvastatin (ZOCOR) 20 mg tablet Take 1 tablet by mouth once daily. sildenafil (VIAGRA) 100 mg tablet Take 1/2 to 1 tablet by mouth 1 hour prior to anticipated intercourse. POTASSIUM-99 ORAL Take 99 % by mouth twice daily. lisinopril (ZESTRIL, PRINIVIL) 10 mg tablet Take 1 tablet by mouth once daily. aspirin 81 mg chewable tablet Take 81 mg by mouth once daily. coenzyme Q10 (COENZYME Q-10) 100 mg cap capsule Take 100 mg by mouth once daily. omega 7-qnv-wpc-fish oil 500-100-1,000 mg cap Take 1 capsule by mouth once daily. multivitamins ORAL Liqd TAKES 1 OUNCE DAILY No current facility-administered medications for this visit. FAMILY HISTORY Problem Relation Age of Onset Cancer Mother KIDNEY Coronary Artery Disease Mother Lipids Mother Stroke Mother Cancer Father LUNG other (fibromyalgia) Sister Prostate Cancer Brother Social History Tobacco Use Smoking status: Former Packs/day: 1.00 Years: 10.00 Pack years: 10.00 Types: Cigarettes Quit date: 07/18/1971 Years since quittin.0 Smokeless tobacco: Never Vaping Use Vaping Use: Never used Substance Use Topics Alcohol use: Yes Alcohol/week: 5.0 standard drinks Types: 2 Cans of Beer (12oz) per week Drug use: No REVIEW OF SYSTEMS GENERAL: No weight loss, malaise or fevers/chills HEENT: Negative for frequent or significant headaches, No changes in hearing or vision. NECK: Negative for lumps, goiter, pain and significant neck swelling RESPIRATORY: Negative for cough, hemoptysis, wheezing, dyspnea or shortness of breath CARDIOVASCULAR: Negative for chest pain, leg swelling, orthopnea, or palpitations GI: No nausea, vomiting, or diarrhea/constipation. No hematochezia/melena. No heartburn or reflux symptoms. : No history of dysuria, frequency or incontinence MUSCULOSKELETAL: + Right Great Toe Pain SKIN: Negative for lesions, rash, and itching ENDOCRINE: Negative for cold or heat intolerance, polyuria, polydipsia and goiter NEURO: No history of headaches, syncope, paralysis, seizures or tremors MOOD: Negative for depression, anxiety, or suicidal ideation. EXAM: BP 124/70 Pulse 69 Resp 16 Wt 81.2 kg (179 lb) SpO2 97% BMI 25.32 kg/m? PHYSICAL EXAM: General Appearance: Well appearing, alert, in no acute distress, well-hydrated, well nourished. Skin: Skin color, texture, turgor normal, no suspicious rashes or lesions. Head: Normocephalic, no masses, lesions, tenderness or abnormalities. Eyes: Anicteric sclera. Extraocular movements are intact. Lungs: Lungs clear to auscultation. No wheezing, rhonchi, rales. Heart: RRR without murmur, gallop, or rubs. No ectopy. Extremities: No deformities, edema, sk (more content not included)... [facility] 08-05-2022 Instructions Ruth Perez APRN.CNP - 08/05/2022 11:01 AM EST Get labs completed next week. Finish the steroids. 3. Follow up pending test results or sooner as needed. documented in this encounter [facility] 08-05-2022 History of Present illness Narrative This is a 76 year old male who presents today with: Patient presents with: Acute Visit: Gout right great toe HISTORY OF PRESENT ILLNESS: Shelton Kay is a 76 year old male. Patient presents with: Acute Visit: Gout right great toe Here in the office to follow-up from express care visit. Was seen for great right toe redness, swelling, tenderness. Diagnosed with gout. Given steroid. Questioning whether he can start allopurinol. This is the 2nd flare up since . Steroids have helped with symptoms. Redness and tenderness has improved. Refers that he was on allopurinol several years ago but cannot remember why he stopped taking it. PAST MEDICAL HISTORY: PAST MEDICAL HISTORY Diagnosis Date Allergic rhinitis, cause unspecified Arthritis Benign neoplasm of colon Carotid artery stenosis Diverticulosis of colon (without mention of hemorrhage) Essential hypertension, benign Gout, unspecified H/O carotid stenosis Hepatomegaly Internal hemorrhoids without mention of complication Other and unspecified hyperlipidemia Snoring PAST SURGICAL HISTORY Procedure Laterality Date ARTHROPLASTY TOTAL SHOULDER 06/2011 Dr. Benitez. ARTHRP ACETBLR/PROX FEM PROSTC AGRFT/ALGRFT 04/2012 Dr. Wood> [facility]. ARTHRP KNE CONDYLE&PLATU MEDIAL&LAT COMPARTMENTS Right COLONOSCOPY W/BIOPSY SINGLE/MULTIPLE 08/24/2006 EGD 12/01/2020 EYE SURGERY HX JOINT REPLACEMENT HX OPEN REPAIR OF ROTATOR CUFF ACUTE 10/03/2008 Rotator cuff repair-right PAST SURGICAL HISTORY OF right knee scope PAST SURGICAL HISTORY OF cataract both eyes TONSILLECTOMY HX TONSILLECTOMY PRIMARY/SECONDARY <AGE 12 Tonsillectomy and adnoids ALLERGIES Indocin [Indomethacin Sodium] and Mobic [Meloxicam] MEDICATIONS Current Outpatient Medications Medication Sig methylPREDNISolone (MEDROL, PETRONA,) 4 mg Dose-Pack Take as directed pantoprazole DR (PROTONIX) 20 mg tablet Take 1 tablet by mouth daily before breakfast. Take on empty stomach, 1/2 hr before meal. omeprazole (PRILOSEC) 20 mg capsule TAKE 1 CAPSULE BY MOUTH EVERY DAY simvastatin (ZOCOR) 20 mg tablet Take 1 tablet by mouth once daily. sildenafil (VIAGRA) 100 mg tablet Take 1/2 to 1 tablet by mouth 1 hour prior to anticipated intercourse. POTASSIUM-99 ORAL Take 99 % by mouth twice daily. lisinopril (ZESTRIL, PRINIVIL) 10 mg tablet Take 1 tablet by mouth once daily. aspirin 81 mg chewable tablet Take 81 mg by mouth once daily. coenzyme Q10 (COENZYME Q-10) 100 mg cap capsule Take 100 mg by mouth once daily. omega 9-jtt-lsp-fish oil 500-100-1,000 mg cap Take 1 capsule by mouth once daily. multivitamins ORAL Liqd TAKES 1 OUNCE DAILY No current facility-administered medications for this visit. FAMILY HISTORY Problem Relation Age of Onset Cancer Mother KIDNEY Coronary Artery Disease Mother Lipids Mother Stroke Mother Cancer Father LUNG other (fibromyalgia) Sister Prostate Cancer Brother Social History Tobacco Use Smoking status: Former Packs/day: 1.00 Years: 10.00 Pack years: 10.00 Types: Cigarettes Quit date: 07/18/1971 Years since quittin.0 Smokeless tobacco: Never Vaping Use Vaping Use: Never used Substance Use Topics Alcohol use: Yes Alcohol/week: 5.0 standard drinks Types: 2 Cans of Beer (12oz) per week Drug use: No REVIEW OF SYSTEMS GENERAL: No weight loss, malaise or fevers/chills HEENT: Negative for frequent or significant headaches, No changes in hearing or vision. NECK: Negative for lumps, goiter, pain and significant neck swelling RESPIRATORY: Negative for cough, hemoptysis, wheezing, dyspnea or shortness of breath CARDIOVASCULAR: Negative for chest pain, leg swelling, orthopnea, or palpitations GI: No nausea, vomiting, or diarrhea/constipation. No hematochezia/melena. No heartburn or reflux symptoms. : No history of dysuria, frequency or incontinence MUSCULOSKELETAL: + Right Great Toe Pain SKIN: Negative for lesions, rash, and itching ENDOCRINE: Negative for cold or heat intolerance, polyuria, polydipsia and goiter NEURO: No history of headaches, syncope, paralysis, seizures or tremors MOOD: Negative for depression, anxiety, or suicidal ideation. EXAM: BP 124/70 Pulse 69 Resp 16 Wt 81.2 kg (179 lb) SpO2 97% BMI 25.32 kg/m PHYSICAL EXAM: General Appearance: Well appearing, alert, in no acute distress, well-hydrated, well nourished. Skin: Skin color, texture, turgor normal, no suspicious rashes or lesions. Head: Normocephalic, no masses, lesions, tenderness or abnormalities. Eyes: Anicteric sclera. Extraocular movements are intact. Lungs: Lungs clear to auscultation. No wheezing, rhonchi, rales. Heart: RRR without murmur, gallop, or rubs. No ectopy. Extremities: No deformities, edema, skin discoloration, clubbing or cyanosis. Good capillary refill. Musculoskeletal: No joint swelling, deformity. Right great toe mildly tender, no erythema or swelling noted Peripheral Pulses: Normal, Capillary refill <2secs, strong peripheral pulses, Pulses palpable. Neurologic: Gait normal. Reflexes normal and symmetric. Sensation grossly intact. ASSESSMENT/PLAN: 1. History of gout - ICD9: V12.29, ICD10: Z87.39 - Finish prednisone as prescribed. - Get labs completed next week. - Discussed starting back on allopurinol after reviewing results. - URIC ACID BLOOD Follow-up pending test results or sooner as needed. Discussed treatment plan and patient voices understanding. Patient's questions answered appropriately. Medications and potential side effects were discussed and patient voices understanding. Ruth Perez APRN.LIZET This note was partially generated using Proc[employer] voice recognition system. Note was reviewed for accuracy. There may be minor misspellings or grammar miscues with [employer] voice recognition. documented in this encounter [facility] 08-01-2022 Note HNO ID: [id number] Author: Royce Rivera APRN.LIZET Service: ? Author Type: Nurse Practitioner Type: Progress Notes Filed: 08/01/2022 10:30 AM Note Text: Subjective HPI Nontoxic-appearing male presents urgent care chief complaint right great toe pain. Duration of symptoms 1 day. Associated symptoms right great toe pain swelling or redness. States he believes he has gout. Has had gout in the past. This feels similar. Last flareup of gout about 3 weeks ago. Was seen in the ED. Diagnosed with gout of right ankle. Denies any trauma. No numbness no tingling. Denies any systemic symptoms. States overall feels well. Denies any fever body aches chills productive cough chest pain shortness of breath pleuritic pain hemoptysis nausea vomiting abdominal pain change in bowel or bladder habits. Past medical history prescription medication use and allergies reviewed. .Patient presents with: Pain: Pt reported (RT) toe pain, denied injury pain, swelling , x1 day. PAST MEDICAL HISTORY Diagnosis Date Allergic rhinitis, cause unspecified Arthritis Benign neoplasm of colon Carotid artery stenosis Diverticulosis of colon (without mention of hemorrhage) Essential hypertension, benign Gout, unspecified H/O carotid stenosis Hepatomegaly Internal hemorrhoids without mention of complication Other and unspecified hyperlipidemia Snoring PAST SURGICAL HISTORY Procedure Laterality Date ARTHROPLASTY TOTAL SHOULDER 06/2011 Dr. Benitez. ARTHRP ACETBLR/PROX FEM PROSTC AGRFT/ALGRFT 04/2012 Dr. Wood> [facility]. ARTHRP KNE CONDYLEANDPLATU MEDIALANDLAT COMPARTMENTS Right COLONOSCOPY W/BIOPSY SINGLE/MULTIPLE 08/24/2006 EGD 12/01/2020 EYE SURGERY HX JOINT REPLACEMENT HX OPEN REPAIR OF ROTATOR CUFF ACUTE 10/03/2008 Rotator cuff repair-right PAST SURGICAL HISTORY OF right knee scope PAST SURGICAL HISTORY OF cataract both eyes TONSILLECTOMY HX TONSILLECTOMY PRIMARY/SECONDARY Tonsillectomy and adnoids ALLERGIES Indocin [Indomethacin Sodium] and Mobic [Meloxicam] MEDICATIONS pantoprazole DR (PROTONIX) 20 mg tablet Take 1 tablet by mouth daily before breakfast. Take on empty stomach, 1/2 hr before meal. omeprazole (PRILOSEC) 20 mg capsule TAKE 1 CAPSULE BY MOUTH EVERY DAY simvastatin (ZOCOR) 20 mg tablet Take 1 tablet by mouth once daily. sildenafil (VIAGRA) 100 mg tablet Take 1/2 to 1 tablet by mouth 1 hour prior to anticipated intercourse. POTASSIUM-99 ORAL Take 99 % by mouth twice daily. lisinopril (ZESTRIL, PRINIVIL) 10 mg tablet Take 1 tablet by mouth once daily. aspirin 81 mg chewable tablet Take 81 mg by mouth once daily. coenzyme Q10 (COENZYME Q-10) 100 mg cap capsule Take 100 mg by mouth once daily. omega 4-uth-sms-fish oil 500-100-1,000 mg cap Take 1 capsule by mouth once daily. multivitamins ORAL Liqd TAKES 1 OUNCE DAILY FAMILY HISTORY Problem Relation Age of Onset Cancer Mother KIDNEY Coronary Artery Disease Mother Lipids Mother Stroke Mother Cancer Father LUNG other (fibromyalgia) Sister Prostate Cancer Brother Social History Tobacco Use Smoking status: Former Packs/day: 1.00 Years: 10.00 Pack years: 10.00 Types: Cigarettes Quit date: 07/18/1971 Years since quittin.0 Smokeless tobacco: Never Vaping Use Vaping Use: Never used Substance Use Topics Alcohol use: Yes Alcohol/week: 5.0 standard drinks Types: 2 Cans of Beer (12oz) per week Drug use: No BP 148/70 Pulse 68 Temp 36.1 ?C (97 ?F) (Tympanic) Resp 18 Wt 83.3 kg (183 lb 9.6 oz) SpO2 99% BMI 25.97 kg/m? Review of Systems Constitutional: Negative for chills, fever and malaise/fatigue. HENT: Negative for congestion, ear discharge, ear pain, sinus pain and sore throat. Eyes: Negative for blurred vision, pain, discharge and redness. Respiratory: Negative for cough, hemoptysis, sputum production, shortness of breath, wheezing and stridor. Cardiovascular: Negative for chest pain. Gastrointestinal: Negative for abdominal pain, diarrhea, nausea and vomiting. Musculoskeletal: Positive for joint pain. Negative for back pain, falls, myalgias and neck pain. Skin: Negative for itching and rash. Neurological: Negative for dizziness and headaches. Objective Physical Exam Constitutional: General: He is not in acute distress. Appearance: He is not diaphoretic. HENT: Head: Normocephalic. Eyes: Conjunctiva/sclera: Conjunctivae normal. Pupils: Pupils are equal, round, and reactive to light. Cardiovascular: Rate and Rhythm: Normal rate and regular rhythm. Heart sounds: Normal heart sounds. Pulmonary: Effort: Pulmonary effort is normal. No tachypnea, accessory muscle usage or respiratory distress. Breath sounds: Normal breath sounds. No stridor. No wheezing, rhonchi or rales. Abdominal: General: There is no distension. Palpations: Abdomen is soft. Tenderness: There is no abdominal tenderness. There is no guardi (more content not included)... [facility] 08-01-2022 Instructions Royce Rivera APRN.CNP - 08/01/2022 10:01 AM EST GOUT: You have an acute joint inflammation called gout. Gout is caused by uric acid crystals forming in the joint. Often uric acid levels in the blood are also elevated. Gout occurs most commonly in men and appears to be an inherited condition. Diuretics (water pills) tend to elevate blood uric acid levels and can cause similar joint problems. The big toe, foot, ankle, and knee are the joints most often affected. Treatment includes: Rest and elevate the affected limb until the swelling and pain are better. Use a frame to keep the sheets off your leg as needed. Anti-inflammatory medicine usually brings about dramatic relief of pain , redness, and swelling within 2-3 days. Increase your fluid intake, avoid alcohol, and do not eat liver, sweetbreads, or sardines. Long-term management may require medicine to lower blood uric acid levels or stopping diuretic therapy. Please see your doctor if your condition is not better after 1-2 days of treatment, or if you have fever, skin rash, diarrhea, or other joint pains. documented in this encounter [facility] 08-01-2022 History of Present illness Narrative Images from the original note were not included. Subjective HPI Nontoxic-appearing male presents urgent care chief complaint right great toe pain. Duration of symptoms 1 day. Associated symptoms right great toe pain swelling or redness. States he believes he has gout. Has had gout in the past. This feels similar. Last flareup of gout about 3 weeks ago. Was seen in the ED. Diagnosed with gout of right ankle. Denies any trauma. No numbness no tingling. Denies any systemic symptoms. States overall feels well. Denies any fever body aches chills productive cough chest pain shortness of breath pleuritic pain hemoptysis nausea vomiting abdominal pain change in bowel or bladder habits. Past medical history prescription medication use and allergies reviewed. .Patient presents with: Pain: Pt reported (RT) toe pain, denied injury pain, swelling , x1 day. PAST MEDICAL HISTORY Diagnosis Date Allergic rhinitis, cause unspecified Arthritis Benign neoplasm of colon Carotid artery stenosis Diverticulosis of colon (without mention of hemorrhage) Essential hypertension, benign Gout, unspecified H/O carotid stenosis Hepatomegaly Internal hemorrhoids without mention of complication Other and unspecified hyperlipidemia Snoring PAST SURGICAL HISTORY Procedure Laterality Date ARTHROPLASTY TOTAL SHOULDER 06/2011 Dr. Benitez. ARTHRP ACETBLR/PROX FEM PROSTC AGRFT/ALGRFT 04/2012 Dr. Wood> [facility]. ARTHRP KNE CONDYLE&PLATU MEDIAL&LAT COMPARTMENTS Right COLONOSCOPY W/BIOPSY SINGLE/MULTIPLE 08/24/2006 EGD 12/01/2020 EYE SURGERY HX JOINT REPLACEMENT HX OPEN REPAIR OF ROTATOR CUFF ACUTE 10/03/2008 Rotator cuff repair-right PAST SURGICAL HISTORY OF right knee scope PAST SURGICAL HISTORY OF cataract both eyes TONSILLECTOMY HX TONSILLECTOMY PRIMARY/SECONDARY <AGE 12 Tonsillectomy and adnoids ALLERGIES Indocin [Indomethacin Sodium] and Mobic [Meloxicam] MEDICATIONS pantoprazole DR (PROTONIX) 20 mg tablet Take 1 tablet by mouth daily before breakfast. Take on empty stomach, 1/2 hr before meal. omeprazole (PRILOSEC) 20 mg capsule TAKE 1 CAPSULE BY MOUTH EVERY DAY simvastatin (ZOCOR) 20 mg tablet Take 1 tablet by mouth once daily. sildenafil (VIAGRA) 100 mg tablet Take 1/2 to 1 tablet by mouth 1 hour prior to anticipated intercourse. POTASSIUM-99 ORAL Take 99 % by mouth twice daily. lisinopril (ZESTRIL, PRINIVIL) 10 mg tablet Take 1 tablet by mouth once daily. aspirin 81 mg chewable tablet Take 81 mg by mouth once daily. coenzyme Q10 (COENZYME Q-10) 100 mg cap capsule Take 100 mg by mouth once daily. omega 4-vdj-ptk-fish oil 500-100-1,000 mg cap Take 1 capsule by mouth once daily. multivitamins ORAL Liqd TAKES 1 OUNCE DAILY FAMILY HISTORY Problem Relation Age of Onset Cancer Mother KIDNEY Coronary Artery Disease Mother Lipids Mother Stroke Mother Cancer Father LUNG other (fibromyalgia) Sister Prostate Cancer Brother Social History Tobacco Use Smoking status: Former Packs/day: 1.00 Years: 10.00 Pack years: 10.00 Types: Cigarettes Quit date: 07/18/1971 Years since quittin.0 Smokeless tobacco: Never Vaping Use Vaping Use: Never used Substance Use Topics Alcohol use: Yes Alcohol/week: 5.0 standard drinks Types: 2 Cans of Beer (12oz) per week Drug use: No BP 148/70 Pulse 68 Temp 36.1 C (97 F) (Tympanic) Resp 18 Wt 83.3 kg (183 lb 9.6 oz) SpO2 99% BMI 25.97 kg/m Review of Systems Constitutional: Negative for chills, fever and malaise/fatigue. HENT: Negative for congestion, ear discharge, ear pain, sinus pain and sore throat. Eyes: Negative for blurred vision, pain, discharge and redness. Respiratory: Negative for cough, hemoptysis, sputum production, shortness of breath, wheezing and stridor. Cardiovascular: Negative for chest pain. Gastrointestinal: Negative for abdominal pain, diarrhea, nausea and vomiting. Musculoskeletal: Positive for joint pain. Negative for back pain, falls, myalgias and neck pain. Skin: Negative for itching and rash. Neurological: Negative for dizziness and headaches. Objective Physical Exam Constitutional: General: He is not in acute distress. Appearance: He is not diaphoretic. HENT: Head: Normocephalic. Eyes: Conjunctiva/sclera: Conjunctivae normal. Pupils: Pupils are equal, round, and reactive to light. Cardiovascular: Rate and Rhythm: Normal rate and regular rhythm. Heart sounds: Normal heart sounds. Pulmonary: Effort: Pulmonary effort is normal. No tachypnea, accessory muscle usage or respiratory distress. Breath sounds: Normal breath sounds. No stridor. No wheezing, rhonchi or rales. Abdominal: General: There is no distension. Palpations: Abdomen is soft. Tenderness: There is no abdominal tenderness. There is no guarding or rebound. Musculoskeletal: Cervical back: Normal range of motion. Right foot: Decreased range of motion. Feet: Feet: Right foot: Skin integrity: Erythema, warmth and dry skin present. No ulcer, blister or skin breakdown. Comments: Pain with palpation over first digit right foot. Pain is most prevalent over MTP joint. Mild erythema edema noted to this joint. No breakdown of skin. No remote redness. Neurovascular intact. Skin: General: Skin is warm and dry. Neurological: Mental Status: He is alert and oriented to person, place, and time. ASSESSMENT/PLAN: 1. Toe swelling - ICD9: 729.81, ICD10: M79.89 - CBC + DIFF - COMP METABOLIC PANEL - XR FOOT GENERAL 3V AP/LAT/OBL RIGHT Patient diagnosed with great toe swelling. Suspicious of gout. History of gout this feels similar. No signs of skin breakdown. Low suspicion for bacterial cause of pain and swelling. Hemodynamically stable. No systemic symptoms. Placed on Medrol Dosepak. Will not take with NSAIDs. Return tomorrow for lab work and x-ray. Red flags for prompt reevaluation discussed. Patient was educated on supportive therapies. Patient will follow up with primary care provider as needed. Patient was instructed to immediately proceed to emergency room for any new, worsening, or symptoms lasting longer than anticipated. The patient's clinical presentation is otherwise unremarkable at this time. Based on exam and clinical finding, the patient is stable for discharge. Plan of care was discussed with patient. Patient verbalizes understanding and agrees to plan of care. This note was generated using [employer] software. It may contain errors in wording, punctuation, or spelling. Royce Rivera APRN.LIZET documented in this encounter [facility] 07-29-2022 Note HNO ID: [id number] Author: Ruth Perez APRN.LIZET Service: ? Author Type: Nurse Practitioner Type: Progress Notes Filed: 07/29/2022 11:26 AM Note Text: This is a 76 year old male who presents today with: Patient presents with: Acute Visit: question about throat, and coughing HISTORY OF PRESENT ILLNESS: Shelton Kay is a 76 year old male. Patient presents with: Acute Visit: question about throat, and coughing Here in the office for ongoing difficulty with swallowing. On Right side throat is tender with swallowing. No difficulty swallowing food or liquids, increased pain with doing so. Food is not getting stuck or having any aspiration. At last office visit thyroid was enlarged on exam, labs and ultrasound normal. History of GERD, taking omeprazole 20 mg. Has not tolerated higher dose of medication, caused hand and foot swelling. Recommended adding on pepcid at last visit but has not started. Refers he does not have heartburn. Has had difficulty with swallowing in the past as well. Had EGD in November [address] Dougherty. Denies any abdominal pain. EGD: Findings: The examined esophagus was normal. Scattered mild inflammation characterized by erythema was found in the entire examined stomach. Biopsies were taken with a cold forceps for histology. Estimated blood loss was minimal. The examined duodenum was normal. Impression: - Normal esophagus. - Gastritis. Biopsied. - Normal examined duodenum. PAST MEDICAL HISTORY: PAST MEDICAL HISTORY Diagnosis Date Allergic rhinitis, cause unspecified Arthritis Benign neoplasm of colon Carotid artery stenosis Diverticulosis of colon (without mention of hemorrhage) Essential hypertension, benign Gout, unspecified H/O carotid stenosis Hepatomegaly Internal hemorrhoids without mention of complication Other and unspecified hyperlipidemia Snoring PAST SURGICAL HISTORY Procedure Laterality Date ARTHROPLASTY TOTAL SHOULDER 06/2011 Dr. Benitez. ARTHRP ACETBLR/PROX FEM PROSTC AGRFT/ALGRFT 04/2012 Dr. Wood> [facility]. ARTHRP KNE CONDYLEANDPLATU MEDIALANDLAT COMPARTMENTS Right COLONOSCOPY W/BIOPSY SINGLE/MULTIPLE 08/24/2006 EGD 12/01/2020 EYE SURGERY HX JOINT REPLACEMENT HX OPEN REPAIR OF ROTATOR CUFF ACUTE 10/03/2008 Rotator cuff repair-right PAST SURGICAL HISTORY OF right knee scope PAST SURGICAL HISTORY OF cataract both eyes TONSILLECTOMY HX TONSILLECTOMY PRIMARY/SECONDARY Tonsillectomy and adnoids ALLERGIES Indocin [Indomethacin Sodium] and Mobic [Meloxicam] MEDICATIONS Current Outpatient Medications Medication Sig omeprazole (PRILOSEC) 20 mg capsule TAKE 1 CAPSULE BY MOUTH EVERY DAY simvastatin (ZOCOR) 20 mg tablet Take 1 tablet by mouth once daily. sildenafil (VIAGRA) 100 mg tablet Take 1/2 to 1 tablet by mouth 1 hour prior to anticipated intercourse. POTASSIUM-99 ORAL Take 99 % by mouth twice daily. lisinopril (ZESTRIL, PRINIVIL) 10 mg tablet Take 1 tablet by mouth once daily. aspirin 81 mg chewable tablet Take 81 mg by mouth once daily. coenzyme Q10 (COENZYME Q-10) 100 mg cap capsule Take 100 mg by mouth once daily. omega 7-brf-unu-fish oil 500-100-1,000 mg cap Take 1 capsule by mouth once daily. multivitamins ORAL Liqd TAKES 1 OUNCE DAILY No current facility-administered medications for this visit. FAMILY HISTORY Problem Relation Age of Onset Cancer Mother KIDNEY Coronary Artery Disease Mother Lipids Mother Stroke Mother Cancer Father LUNG other (fibromyalgia) Sister Prostate Cancer Brother Social History Tobacco Use Smoking status: Former Packs/day: 1.00 Years: 10.00 Pack years: 10.00 Types: Cigarettes Quit date: 07/18/1971 Years since quittin.0 Smokeless tobacco: Never Vaping Use Vaping Use: Never used Substance Use Topics Alcohol use: Yes Alcohol/week: 5.0 standard drinks Types: 2 Cans of Beer (12oz) per week Drug use: No REVIEW OF SYSTEMS GENERAL: No weight loss, malaise or fevers/chills HEENT: + Pain with Swallowing NECK: Negative for lumps, goiter, pain and significant neck swelling RESPIRATORY: Negative for cough, hemoptysis, wheezing, dyspnea or shortness of breath CARDIOVASCULAR: Negative for chest pain, leg swelling, orthopnea, or palpitations GI: No nausea, vomiting, or diarrhea/constipation. No hematochezia/melena. No heartburn or reflux symptoms. : No history of dysuria, frequency or incontinence MUSCULOSKELETAL: Negative for joint pain or swelling. SKIN: Negative for lesions, rash, and itching ENDOCRINE: Negative for cold or heat intolerance, polyuria, polydipsia and goiter NEURO: No history of headaches, syncope, paralysis, seizures or tremors MOOD: Negative for depression, anxiety, or suicidal ideation. EXAM: BP 140/72 Pulse 60 Temp 36.8 ?C (98.2 ?F) (Left Tympanic) Resp 16 Wt 81.6 kg (180 lb) SpO2 96% BMI 25.46 kg/m? PHYSICAL EXAM: General Appearance: Well appearing, (more content not included)... [facility] 07-29-2022 Instructions Ruth Perez APRN.FLATBED PRESS OPERATOR - 07/29/2022 10:34 AM EST Stop omeprazole, start Protnix 20 mg ,30 minutes prior to breakfast. Recommend eating smaller meals, watch acidic and fatty foods in the diet. Do not eat close to bedtime. If symptoms do not improve recommend follow up with general surgery for possible repeat upper scope if needed. Follow up 1 month if needed. May add on Pepcid 20 mg if needed documented in this encounter [facility] 07-29-2022 History of Present illness Narrative This is a 76 year old male who presents today with: Patient presents with: Acute Visit: question about throat, and coughing HISTORY OF PRESENT ILLNESS: Shelton Kay is a 76 year old male. Patient presents with: Acute Visit: question about throat, and coughing Here in the office for ongoing difficulty with swallowing. On Right side throat is tender with swallowing. No difficulty swallowing food or liquids, increased pain with doing so. Food is not getting stuck or having any aspiration. At last office visit thyroid was enlarged on exam, labs and ultrasound normal. History of GERD, taking omeprazole 20 mg. Has not tolerated higher dose of medication, caused hand and foot swelling. Recommended adding on pepcid at last visit but has not started. Refers he does not have heartburn. Has had difficulty with swallowing in the past as well. Had EGD in November [address] Dougherty. Denies any abdominal pain. EGD: Findings: The examined esophagus was normal. Scattered mild inflammation characterized by erythema was found in the entire examined stomach. Biopsies were taken with a cold forceps for histology. Estimated blood loss was minimal. The examined duodenum was normal. Impression: - Normal esophagus. - Gastritis. Biopsied. - Normal examined duodenum. PAST MEDICAL HISTORY: PAST MEDICAL HISTORY Diagnosis Date Allergic rhinitis, cause unspecified Arthritis Benign neoplasm of colon Carotid artery stenosis Diverticulosis of colon (without mention of hemorrhage) Essential hypertension, benign Gout, unspecified H/O carotid stenosis Hepatomegaly Internal hemorrhoids without mention of complication Other and unspecified hyperlipidemia Snoring PAST SURGICAL HISTORY Procedure Laterality Date ARTHROPLASTY TOTAL SHOULDER 06/2011 Dr. Benitez. ARTHRP ACETBLR/PROX FEM PROSTC AGRFT/ALGRFT 04/2012 Dr. Wood> [facility] ARTHRP KNE CONDYLE&PLATU MEDIAL&LAT COMPARTMENTS Right COLONOSCOPY W/BIOPSY SINGLE/MULTIPLE 08/24/2006 EGD 12/01/2020 EYE SURGERY HX JOINT REPLACEMENT HX OPEN REPAIR OF ROTATOR CUFF ACUTE 10/03/2008 Rotator cuff repair-right PAST SURGICAL HISTORY OF right knee scope PAST SURGICAL HISTORY OF cataract both eyes TONSILLECTOMY HX TONSILLECTOMY PRIMARY/SECONDARY <AGE 12 Tonsillectomy and adnoids ALLERGIES Indocin [Indomethacin Sodium] and Mobic [Meloxicam] MEDICATIONS Current Outpatient Medications Medication Sig omeprazole (PRILOSEC) 20 mg capsule TAKE 1 CAPSULE BY MOUTH EVERY DAY simvastatin (ZOCOR) 20 mg tablet Take 1 tablet by mouth once daily. sildenafil (VIAGRA) 100 mg tablet Take 1/2 to 1 tablet by mouth 1 hour prior to anticipated intercourse. POTASSIUM-99 ORAL Take 99 % by mouth twice daily. lisinopril (ZESTRIL, PRINIVIL) 10 mg tablet Take 1 tablet by mouth once daily. aspirin 81 mg chewable tablet Take 81 mg by mouth once daily. coenzyme Q10 (COENZYME Q-10) 100 mg cap capsule Take 100 mg by mouth once daily. omega 6-jce-inu-fish oil 500-100-1,000 mg cap Take 1 capsule by mouth once daily. multivitamins ORAL Liqd TAKES 1 OUNCE DAILY No current facility-administered medications for this visit. FAMILY HISTORY Problem Relation Age of Onset Cancer Mother KIDNEY Coronary Artery Disease Mother Lipids Mother Stroke Mother Cancer Father LUNG other (fibromyalgia) Sister Prostate Cancer Brother Social History Tobacco Use Smoking status: Former Packs/day: 1.00 Years: 10.00 Pack years: 10.00 Types: Cigarettes Quit date: 07/18/1971 Years since quittin.0 Smokeless tobacco: Never Vaping Use Vaping Use: Never used Substance Use Topics Alcohol use: Yes Alcohol/week: 5.0 standard drinks Types: 2 Cans of Beer (12oz) per week Drug use: No REVIEW OF SYSTEMS GENERAL: No weight loss, malaise or fevers/chills HEENT: + Pain with Swallowing NECK: Negative for lumps, goiter, pain and significant neck swelling RESPIRATORY: Negative for cough, hemoptysis, wheezing, dyspnea or shortness of breath CARDIOVASCULAR: Negative for chest pain, leg swelling, orthopnea, or palpitations GI: No nausea, vomiting, or diarrhea/constipation. No hematochezia/melena. No heartburn or reflux symptoms. : No history of dysuria, frequency or incontinence MUSCULOSKELETAL: Negative for joint pain or swelling. SKIN: Negative for lesions, rash, and itching ENDOCRINE: Negative for cold or heat intolerance, polyuria, polydipsia and goiter NEURO: No history of headaches, syncope, paralysis, seizures or tremors MOOD: Negative for depression, anxiety, or suicidal ideation. EXAM: BP 140/72 Pulse 60 Temp 36.8 C (98.2 F) (Left Tympanic) Resp 16 Wt 81.6 kg (180 lb) SpO2 96% BMI 25.46 kg/m PHYSICAL EXAM: General Appearance: Well appearing, alert, in no acute distress, well-hydrated, well nourished. Skin: Skin color, texture, turgor normal, no suspicious rashes or lesions. Head: Normocephalic, no masses, lesions, tenderness or abnormalities. Eyes: Anicteric sclera. Extraocular movements are intact. Ears: External ears normal, canals clear. TMs pearly doherty Oropharynx: Lips, mucosa, and tongue normal, teeth and gums normal, oropharynx normal. Neck: Positive findings: thyroid: enlarged, Right side of neck tender with palpation. Lungs: Lungs clear to auscultation. No wheezing, rhonchi, rales. Heart: RRR without murmur, gallop, or rubs. No ectopy. Extremities: No deformities, edema, skin discoloration, clubbing or cyanosis. Good capillary refill. Peripheral Pulses: Normal, Capillary refill <2secs, strong peripheral pulses, Pulses palpable. Neurologic: Gait normal. Sensation grossly intact. ASSESSMENT/PLAN: 1. Pain with swallowing - ICD9: 787.20, ICD10: R13.10 (primary diagnosis) - Concerns that GERD is causing his symptoms. - If symptoms do not improve recommend follow-up with general surgery to discuss possible repeat upper scope - CONSULT TO GENERAL SURGERY 2. GERD without esophagitis - ICD9: 530.81, ICD10: K21.9 - Discussed lifestyle modifications including losing weight, limiting caffeine, no meals three hours before sleep, and head of bed elevation - Begin treatment Protonix 20 mg daily. - PANTOPRAZOLE 20 MG TABLET,DELAYED RELEASE Follow-up in 1 month or sooner as needed Discussed treatment plan and patient voices understanding. Patient's questions answered appropriately. Medications and potential side effects were discussed and patient voices understanding. Ruth Perez APRN.FLATBED PRESS OPERATOR This note was partially generated using Dragon voice recognition system. Note was reviewed for accuracy. There may be minor misspellings or grammar miscues with [employer] voice recognition. documented in this encounter [facility] 07-23-2022 History of Present illness Narrative Radiology Service Progress Note PATIENT NAME: Shelton Kay DATE OF SERVICE: July 23, 2022 TIME: 3:22 PM PATIENT IDENTITY VERIFICATION COMPLETED USING TWO (2) IDENTIFIERS: Name and Date of confirmed by patient verbally. FALL SCREENING: Has the patient had 2 falls in the last year or 1 fall with injury or currently using an Ambulatory Assistive Device (Walker, Cane, Wheelchair, Crutches, etc.)? No PATIENT GENDER DATA: Male PATIENT RELEVANT IMPLANT DATA REVIEWED: Not Applicable RADIOLOGY DEPARTMENT: Ultrasound PERIPHERAL IV DATA: Not applicable SIGNED BY: Elena Hennessy RD[facility] July 23, 2022 3:22 PM documented in this encounter [facility] 07-21-2022 Instructions Ruth Perez APRN.CNP - 07/21/2022 8:37 AM EST Get labs completed. Schedule appointment for ultrasound. Recommend follow up with Dr. Wolff Follow up pending test results or sooner as needed. Increasing burping may add on Pepcid 20 mg as needed. documented in this encounter [facility] 07-21-2022 History of Present illness Narrative This is a 76 year old male who presents today with: Patient presents with: Acute Visit: dizziness HISTORY OF PRESENT ILLNESS: Shelton Kay is a 76 year old male. Patient presents with: Acute Visit: dizziness Here in the office for dizziness. Dizziness started several days ago, lasting 10 seconds. Symptoms occur randomly. Improves with rest. Has not had dizziness since last Tuesday. Seems to have resolved. No LOC. Following with Dr. Wolff, Vascular Medicine, has been monitoring carotid arteries. Had ultrasound in January showing carotid stenosis. Has noticed some tenderness with swallowing. History of Gerd. Noticed for the past couple weeks with swallowing vitamin. No difficulty swallowing water or food. Denies any increase heartburn but having increased belching. Has tried Omeprazole 20 mg twice daily but did not tolerate, currently taking once daily. No abdominal pain, N/V/D. PAST MEDICAL HISTORY: PAST MEDICAL HISTORY Diagnosis Date Allergic rhinitis, cause unspecified Arthritis Benign neoplasm of colon Carotid artery stenosis Diverticulosis of colon (without mention of hemorrhage) Essential hypertension, benign Gout, unspecified H/O carotid stenosis Hepatomegaly Internal hemorrhoids without mention of complication Other and unspecified hyperlipidemia Snoring PAST SURGICAL HISTORY Procedure Laterality Date ARTHROPLASTY TOTAL SHOULDER 06/2011 Dr. Benitez. ARTHRP ACETBLR/PROX FEM PROSTC AGRFT/ALGRFT 04/2012 Dr. Wood> [facility] ARTHRP KNE CONDYLE&PLATU MEDIAL&LAT COMPARTMENTS Right COLONOSCOPY W/BIOPSY SINGLE/MULTIPLE 08/24/2006 EGD 12/01/2020 EYE SURGERY HX JOINT REPLACEMENT HX OPEN REPAIR OF ROTATOR CUFF ACUTE 10/03/2008 Rotator cuff repair-right PAST SURGICAL HISTORY OF right knee scope PAST SURGICAL HISTORY OF cataract both eyes TONSILLECTOMY HX TONSILLECTOMY PRIMARY/SECONDARY <AGE 12 Tonsillectomy and adnoids ALLERGIES Indocin [Indomethacin Sodium] and Mobic [Meloxicam] MEDICATIONS Current Outpatient Medications Medication Sig omeprazole (PRILOSEC) 20 mg capsule TAKE 1 CAPSULE BY MOUTH EVERY DAY simvastatin (ZOCOR) 20 mg tablet Take 1 tablet by mouth once daily. sildenafil (VIAGRA) 100 mg tablet Take 1/2 to 1 tablet by mouth 1 hour prior to anticipated intercourse. POTASSIUM-99 ORAL Take 99 % by mouth twice daily. lisinopril (ZESTRIL, PRINIVIL) 10 mg tablet Take 1 tablet by mouth once daily. aspirin 81 mg chewable tablet Take 81 mg by mouth once daily. coenzyme Q10 (COENZYME Q-10) 100 mg cap capsule Take 100 mg by mouth once daily. omega 2-wye-rlf-fish oil 500-100-1,000 mg cap Take 1 capsule by mouth once daily. multivitamins ORAL Liqd TAKES 1 OUNCE DAILY No current facility-administered medications for this visit. FAMILY HISTORY Problem Relation Age of Onset Cancer Mother KIDNEY Coronary Artery Disease Mother Lipids Mother Stroke Mother Cancer Father LUNG other (fibromyalgia) Sister Prostate Cancer Brother Social History Tobacco Use Smoking status: Former Packs/day: 1.00 Years: 10.00 Pack years: 10.00 Types: Cigarettes Quit date: 07/18/1971 Years since quittin.0 Smokeless tobacco: Never Vaping Use Vaping Use: Never used Substance Use Topics Alcohol use: Yes Alcohol/week: 5.0 standard drinks Types: 2 Cans of Beer (12oz) per week Drug use: No REVIEW OF SYSTEMS GENERAL: No weight loss, malaise or fevers/chills HEENT: + Difficulty swallowing NECK: Negative for lumps, goiter, pain and significant neck swelling RESPIRATORY: Negative for cough, hemoptysis, wheezing, dyspnea or shortness of breath CARDIOVASCULAR: Negative for chest pain, leg swelling, orthopnea, or palpitations GI: No nausea, vomiting, or diarrhea/constipation. No hematochezia/melena. No heartburn or reflux symptoms. : No history of dysuria, frequency or incontinence MUSCULOSKELETAL: Negative for joint pain or swelling. SKIN: Negative for lesions, rash, and itching ENDOCRINE: Negative for cold or heat intolerance, polyuria, polydipsia and goiter NEURO: + Dizziness MOOD: Negative for depression, anxiety, or suicidal ideation. EXAM: BP 130/60 Pulse 75 Resp 16 Wt 82.6 kg (182 lb) SpO2 96% BMI 25.75 kg/m PHYSICAL EXAM: General Appearance: Well appearing, alert, in no acute distress, well-hydrated, well nourished. Skin: Skin color, texture, turgor normal, no suspicious rashes or lesions. Head: Normocephalic, no masses, lesions, tenderness or abnormalities. Eyes: Anicteric sclera. Pupils are equally round and reactive to light. Extraocular movements are intact. Neck: Positive findings: thyroid: normal to inspection and palpation and enlarged. Lungs: Lungs clear to auscultation. No wheezing, rhonchi, rales.. Heart: RRR without murmur, gallop, or rubs. No ectopy, Positive findings: Carotid bruit noted bilaterally. Extremities: No deformities, edema, skin discoloration, clubbing or cyanosis. Good capillary refill. Peripheral Pulses: Normal, Capillary refill <2secs, strong peripheral pulses, Pulses palpable. Neurologic: Gait normal. Reflexes normal and symmetric. Sensation grossly intact. ASSESSMENT/PLAN: 1. Dizziness - ICD9: 780.4, ICD10: R42 (primary diagnosis) - Recommend follow up with vascular due to symptoms and past history with carotid stenosis 2. Enlarged thyroid - ICD9: 240.9, ICD10: E04.9 - Get the following labs and imaging completed. - CBC + DIFF - COMP METABOLIC PANEL - TSH BLD - T4 FREE/FREE THYROX - T3 BLD - US THYROID/PARATHYROID Follow-up pending test results or sooner as needed Discussed treatment plan and patient voices understanding. Patient's questions answered appropriately. Medications and potential side effects were discussed and patient voices understanding. Ruth Perez APRN.FLATBED PRESS OPERATOR This note was partially generated using [employer] voice recognition system. Note was reviewed for accuracy. There may be minor misspellings or grammar miscues with [employer] voice recognition. documented in this encounter [facility] 07-16-2022 Miscellaneous Notes Reason for Call: intermittent dizziness Outcome: Pt advised to be evaluated per a physician within 24 hrs. Pt and his agree. Pt.'s states pt will go to the [facility] express care tomorrow if no appt is available.Express care hours for today and tomorrow given. I forwarded call to the appointment center to schedule appt. Reason for Disposition Taking a medicine that could cause dizziness (e.g., blood pressure medications, diuretics) Answer Assessment - Initial Assessment Questions 1. DESCRIPTION: pt states he has intermittent dizziness that lasts about 10 seconds at a time which began a few days ago 2. LIGHTHEADED: Pt reports last episode of dizziness was yesterday. pt has no dizziness/lightheadedness now/today 3.. VERTIGO: none 4. SEVERITY: pt reports mild lightheadedness when it occurs and sits down for relief 5. ONSET: a few days ago 6. AGGRAVATING FACTORS: not sure 7. HEART RATE: HR was 81 earlier today- usually is in the 70's 8. CAUSE: not sure, possibly his hx of carotid stenosis 9. RECURRENT SYMPTOM: yes, has occurred in the past, but was not evaluated for it 10. OTHER SYMPTOMS: Pt reports he had difficulty swallowing pills earlier today, but some pills are large. Pt drinks fluids normally, voids normally Protocols used: Dizziness - [id number] Pt reports recent dx of gout or cellulitis per his ankle which has improved and appears better. documented in this encounter [facility] 04-28-2022 Instructions Ruth Perez APRN.LIZET - 04/28/2022 11:17 AM EDT Continue to take all medication as prescribed. Get fasting labs completed prior to next appointment. No food 8-10 hours, may have black coffee and water. Keep scheduled appointment with specialist. Follow up in 6 months or sooner as needed. documented in this encounter [facility] 04-28-2022 History of Present illness Narrative This is a 76 year old male who presents today with: Patient presents with: Follow Up Immunizations: Flu vaccination HISTORY OF PRESENT ILLNESS: Shelton Kay is a 76 year old male. Patient presents with: Follow Up Immunizations: Flu vaccination Here in the office for 6-month follow-up. GERD: Taking Prilosec 20 mg daily. Symptoms well controlled medication. ED: Using Viagra as needed. HTN: Taking lisinopril 10 mg daily. Checking blood pressure at home, 130/60's. Follows with vascular was seeing Dr. Caba and Dr. Wolff. Denies chest pain, palpitations, dizziness, or edema. Lipids: Taking Zocor 20 mg daily. Has been working on diet and exercise at home. Vaccines: Due for Tdap, would like Flu vaccine today. Labs completed in January, CBC, CMP, magnesium were within normal limits. Last cholesterol completed in September showed slight elevation in LDL at 106. PAST MEDICAL HISTORY: PAST MEDICAL HISTORY Diagnosis Date Allergic rhinitis, cause unspecified Arthritis Benign neoplasm of colon Carotid artery stenosis Diverticulosis of colon (without mention of hemorrhage) Essential hypertension, benign Gout, unspecified H/O carotid stenosis Hepatomegaly Internal hemorrhoids without mention of complication Other and unspecified hyperlipidemia Snoring PAST SURGICAL HISTORY Procedure Laterality Date ARTHROPLASTY TOTAL SHOULDER 06/2011 Dr. Benitez. ARTHRP ACETBLR/PROX FEM PROSTC AGRFT/ALGRFT 04/2012 Dr. Wood> [facility]. ARTHRP KNE CONDYLE&PLATU MEDIAL&LAT COMPARTMENTS Right COLONOSCOPY W/BIOPSY SINGLE/MULTIPLE 08/24/2006 EGD 12/01/2020 EYE SURGERY HX JOINT REPLACEMENT HX OPEN REPAIR OF ROTATOR CUFF ACUTE 10/03/2008 Rotator cuff repair-right PAST SURGICAL HISTORY OF right knee scope PAST SURGICAL HISTORY OF cataract both eyes TONSILLECTOMY HX TONSILLECTOMY PRIMARY/SECONDARY <AGE 12 Tonsillectomy and adnoids ALLERGIES Indocin [Indomethacin Sodium] and Mobic [Meloxicam] MEDICATIONS Current Outpatient Medications Medication Sig omeprazole (PRILOSEC) 20 mg capsule TAKE 1 CAPSULE BY MOUTH EVERY DAY simvastatin (ZOCOR) 20 mg tablet Take 1 tablet by mouth once daily. sildenafil (VIAGRA) 100 mg tablet Take 1/2 to 1 tablet by mouth 1 hour prior to anticipated intercourse. POTASSIUM-99 ORAL Take 99 % by mouth twice daily. lisinopril (ZESTRIL, PRINIVIL) 10 mg tablet Take 1 tablet by mouth once daily. aspirin 81 mg chewable tablet Take 81 mg by mouth once daily. coenzyme Q10 (COENZYME Q-10) 100 mg cap capsule Take 100 mg by mouth once daily. omega 3-mvs-zno-fish oil 500-100-1,000 mg cap Take 1 capsule by mouth once daily. multivitamins ORAL Liqd TAKES 1 OUNCE DAILY No current facility-administered medications for this visit. FAMILY HISTORY Problem Relation Age of Onset Cancer Mother KIDNEY Coronary Artery Disease Mother Lipids Mother Stroke Mother Cancer Father LUNG other (fibromyalgia) Sister Prostate Cancer Brother Social History Tobacco Use Smoking status: Former Packs/day: 1.00 Years: 10.00 Pack years: 10.00 Types: Cigarettes Quit date: 07/18/1971 Years since quittin.8 Smokeless tobacco: Never Vaping Use Vaping Use: Never used Substance Use Topics Alcohol use: Yes Alcohol/week: 5.0 standard drinks Types: 2 Cans of Beer (12oz) per week Drug use: No REVIEW OF SYSTEMS GENERAL: No weight loss, malaise or fevers/chills HEENT: Negative for frequent or significant headaches, No changes in hearing or vision. NECK: Negative for lumps, goiter, pain and significant neck swelling RESPIRATORY: Negative for cough, hemoptysis, wheezing, dyspnea or shortness of breath CARDIOVASCULAR: Negative for chest pain, leg swelling, orthopnea, or palpitations GI: No nausea, vomiting, or diarrhea/constipation. No hematochezia/melena. No heartburn or reflux symptoms. : No history of dysuria, frequency or incontinence MUSCULOSKELETAL: Negative for joint pain or swelling. SKIN: Negative for lesions, rash, and itching ENDOCRINE: Negative for cold or heat intolerance, polyuria, polydipsia and goiter NEURO: No history of headaches, syncope, paralysis, seizures or tremors MOOD: Negative for depression, anxiety, or suicidal ideation. EXAM: BP 134/66 Pulse 75 Resp 20 Wt 79.8 kg (176 lb) SpO2 98% BMI 24.90 kg/m PHYSICAL EXAM: General Appearance: Well appearing, alert, in no acute distress, well-hydrated, well nourished. Skin: Skin color, texture, turgor normal, no suspicious rashes or lesions. Head: Normocephalic, no masses, lesions, tenderness or abnormalities. Eyes: Anicteric sclera. Extraocular movements are intact. Lungs: Lungs clear to auscultation. No wheezing, rhonchi, rales. Heart: RRR without murmur, gallop, or rubs. No ectopy. Extremities: No deformities, edema, skin discoloration, clubbing or cyanosis. Good capillary refill. Musculoskeletal: No joint swelling, deformity, or tenderness. Peripheral Pulses: Normal, Capillary refill <2secs, strong peripheral pulses, Pulses palpable. Neurologic: Gait normal. Sensation grossly intact. ASSESSMENT/PLAN: 1. BENIGN HYPERTENSION - ICD9: 401.1, ICD10: I10 (primary diagnosis) - suboptimal control - Continue current medication(s) - Recommended regular aerobic exercise. - Goal of BP <130/80 - COMP METABOLIC PANEL 2. Mixed hyperlipidemia - ICD9: 272.2, ICD10: E78.2 - to be determined upon return of lab results - Continue current medication. - LIPID PANEL BASIC 3. PAD (peripheral artery disease) (HCC) - ICD9: 443.9, ICD10: I73.9 - Keep scheduled appointments with vascular medicine. 4. ED (erectile dysfunction) of organic origin - ICD9: 607.84, ICD10: N52.9 - May use Viagra as needed. 5. Gastroesophageal reflux disease, unspecified whether esophagitis present - ICD9: 530.81, ICD10: K21.9 - Continue treatment with Prilosec 20 mg QD - MAGNESIUM BLD 6. Need for influenza vaccination - ICD9: V04.81, ICD10: Z23 - VIS provided. - INFLUENZA SEASONAL QUADRIVALENT HIGH DOSE AGE 65+ Follow up in 6 months or sooner as needed. Discussed treatment plan and patient voices understanding. Patient's questions answered appropriately. Medications and potential side effects were discussed and patient voices understanding. Ruth Perez APRN.FLATBED PRESS OPERATOR This note was partially generated using [employer] voice recognition system. Note was reviewed for accuracy. There may be minor misspellings or grammar miscues with [employer] voice recognition. documented in this encounter [facility] 04-21-2022 Miscellaneous Notes The following approved medication requests have been transmitted electronically. Requested Prescriptions Signed Prescriptions Disp Refills omeprazole (PRILOSEC) 20 mg capsule 90 capsule 3 Sig: TAKE 1 CAPSULE BY MOUTH EVERY DAY Authorizing Provider: FEDERICO VIGIL MA OK to refill as ordered Federico Vigil MD Patient asking if pcp will refill omeprazole, since [facility] [employer] is no longer here? Pended. Last ov in pcp office- 01-15-22. Next appt: 04-28-22. Reports he has 2 pills left. documented in this encounter [facility] 04-21-2022 Miscellaneous Notes PATIENT NOTIFIED OF SAME. Can you please call the patient and let him know that he does not have to have labs completed at this time, looking in his chart he had labs completed in January. Please let me know if he has any questions. Thank you. Ruth Perez APRN.LIZET Patient scheduled his 6 mth f/u with [employer] [facility] [employer] on 04-28. Asking if you want him to do lab work? Reports he takes cholesterol and BP medication. Please advise patient. documented in this encounter [facility] 04-20-2022 History of Present illness Narrative FOLLOW UP PODIATRIC OFFICE VISIT Chief Complaint: This 76 year old who presents for follow up:left foot pain Patient presents to clinic for follow-up left foot pain. Patient has pain to the lateral aspect of left 5th metatarsal. He had similar pain in the left foot last July and he had this treated with injection. The pain is starting to return. He is interested in another injection. This will be his second injection in the left foot PAIN EVALUATION 04/20/2022 1533 Pain Level: 1 Pain Location: Foot-Left Description: Sore Duration Amount of Time: 2 Duration Units: Weeks Frequency: Intermittent Intervention/Comfort measure: Reposition;Relaxation Hemoglobin A1C Date Value Ref Range Status 10/06/2021 5.5 4.3 - 5.6 % Final Comment: [place] [employer] guidelines indicate that patients with HgbA1c in the range 5.7-6.4% are at increased risk for development of diabetes, and intervention by lifestyle modification may be beneficial. HgbA1c greater or equal to 6.5% is considered diagnostic of diabetes. PCP: Federico Vigil MD PAST MEDICAL HISTORY Diagnosis Date Allergic rhinitis, cause unspecified Arthritis Benign neoplasm of colon Carotid artery stenosis Diverticulosis of colon (without mention of hemorrhage) Essential hypertension, benign Gout, unspecified H/O carotid stenosis Hepatomegaly Internal hemorrhoids without mention of complication Other and unspecified hyperlipidemia Snoring Current Outpatient Medications Medication Sig simvastatin (ZOCOR) 20 mg tablet Take 1 tablet by mouth once daily. sildenafil (VIAGRA) 100 mg tablet Take 1/2 to 1 tablet by mouth 1 hour prior to anticipated intercourse. POTASSIUM-99 ORAL Take 99 % by mouth twice daily. omeprazole (PRILOSEC) 20 mg capsule TAKE 1 CAPSULE BY MOUTH EVERY DAY lisinopril (ZESTRIL, PRINIVIL) 10 mg tablet Take 1 tablet by mouth once daily. aspirin 81 mg chewable tablet Take 81 mg by mouth once daily. coenzyme Q10 (COENZYME Q-10) 100 mg cap capsule Take 100 mg by mouth once daily. omega 8-inp-npe-fish oil 500-100-1,000 mg cap Take 1 capsule by mouth once daily. multivitamins ORAL Liqd TAKES 1 OUNCE DAILY benzonatate (TESSALON PERLE) 100 mg capsule Take 2 capsules by mouth three times daily as needed for cough for up to 10 days. (Patient not taking: Reported on 04/20/2022) amoxicillin-clavulanic acid (AUGMENTIN) 875-125 mg per tablet Take 1 tablet by mouth twice daily for 10 days. (Patient not taking: Reported on 04/20/2022) No current facility-administered medications for this visit. ALLERGIES Allergen Reactions Indocin [Indomethac* Diarrhea Mobic [Meloxicam] Diarrhea PAST SURGICAL HISTORY Procedure Laterality Date ARTHROPLASTY TOTAL SHOULDER 06/2011 Dr. Benitez. ARTHRP ACETBLR/PROX FEM PROSTC AGRFT/ALGRFT 04/2012 Dr. Wood> [facility] ARTHRP KNE CONDYLE&PLATU MEDIAL&LAT COMPARTMENTS Right COLONOSCOPY W/BIOPSY SINGLE/MULTIPLE 08/24/2006 EGD 12/01/2020 EYE SURGERY HX JOINT REPLACEMENT HX OPEN REPAIR OF ROTATOR CUFF ACUTE 10/03/2008 Rotator cuff repair-right PAST SURGICAL HISTORY OF right knee scope PAST SURGICAL HISTORY OF cataract both eyes TONSILLECTOMY HX TONSILLECTOMY PRIMARY/SECONDARY <AGE 12 Tonsillectomy and adnoids Physical Exam: OBJECTIVE: Constitutional: Pt is a well developed 76 year old male who is alert, oriented, cooperative and in no apparent distress. Eyes: Following during examination. No redness or drainage. Respiratory: RR normal and nonlabored. Even breathing. No evidence of distress. Psychology: Patient is engaged during conversation. Normal affect and mood. Does not appear depressed or anxious. NVSI unchanged from previous visit. Dermatological: Nails 1-5 b/l are normal. Webspaces clean and dry 1-4 b/l. Skin appears well hydrated and supple. good color, texture, turgor. No open lesions present. No callosities present. Musculoskeletal/Orthopaedic: Patient has pain to palpation of left lateral 5th metatarsal head Mild tailors bunion is present to left foot ASSESSMENT: Tailor's bunion of left foot (primary encounter diagnosis) PLAN: Discussed left foot pain Small tailors bunion of left foot Recommend wider shoes He had injection in the past and this helped. 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 If patient continues to have pain, tailors exostectomy could be an option. Patient is not interested in surgery. Patient elected for injection to the left foot. Patient elected to proceed with an injection to the left 5th metatarsal bursae today. The risks, benefits, potential complications, personnel present, and alternatives to this were discsussed. Pt elected to proceed. all questions were answered. no guarantees were given. A timeout was performed. patient properly identified. procedure site marked. Under aseptic technique an injection was performed to the left 5th metatarsal bursae using a mixture of cc of 0.5 % Marcaine plain, of kenalog and cc of dexamethazone Karina Cline DPM AMB ROOMING INTAKE FLOWSHEET DATA Risk Screening Do you have concerns about personal safety or safety in the home?: No Pain Pain Level: 1 Pain Location: Foot-Left Description: Sore Duration Amount of Time: 2 Duration Units: Weeks Frequency: Intermittent Intervention/Comfort measure: Reposition, Relaxation Patient presents with: Left Foot - Follow Up, Bunion Patient states he had a cortisone injection a year ago and pain came back about 2 weeks ago while on vacation. Requesting subsequent injection. documented in this encounter [facility] 04-20-2022 Instructions Karina Cline - 04/20/2022 4:05 PM EDT STEROID INJECTION You have been injected with a corticosteroid and local anesthesia today. This should provide relief of symptoms for the next 8 hours or so. After this time frame you will likely experience an increase in pain symptoms again until the effects of the steroid start to work, which should occur within 24-48 hours. Approximately 2% of individuals may experience a post injection flare or severe worsening of symptoms following injection. If this occurs ice the area and take Tylenol or Aleve for pain. In some very rare instances skin depigmentation and joint infection may occur. Joint infection is a concern if you experience any of the following: pain for more than 48 hours after the injection pain develops more than 2 days after the injection the area becomes red, hot or swollen you develop a fever following the injection Corticosteroid injections can also rarely interfere with the healing process and weaken tendons, sometimes causing tendons to rupture. Repeated injections of steroids can also damage joint cartilage. For these reasons, there are limits to how many times and how frequently corticosteroid injections can be used in the same area. If anything seems unusual or out of the ordinary please contact our office as soon as possible for further instruction. documented in this encounter [facility] 04-20-2022 History of Present illness Narrative Radiology Service Progress Note PATIENT NAME: Shelton Kay DATE OF SERVICE: April 20, 2022 TIME: 3:18 PM PATIENT IDENTITY VERIFICATION COMPLETED USING TWO (2) IDENTIFIERS: Name and Date of confirmed by patient verbally. FALL SCREENING: Has the patient had 2 falls in the last year or 1 fall with injury or currently using an Ambulatory Assistive Device (Walker, Cane, Wheelchair, Crutches, etc.)? No PATIENT GENDER DATA: Male PATIENT RELEVANT IMPLANT DATA REVIEWED: Not Applicable RADIOLOGY DEPARTMENT: General X-ray: Exam(s) Completed: Lower Extremity X-Ray(s): Foot, Left and Wt. Bearing PERIPHERAL IV DATA: Not applicable SIGNED BY: RT Eunice(R) April 20, 2022 3:18 PM documented in this encounter [facility] 04-15-2022 Instructions Elina Darnell - 04/15/2022 12:12 PM EDT ASSESSMENT/PLAN: 1. Acute cough - ICD9: 786.2, ICD10: R05.1 (primary diagnosis) - XR CHEST 2V FRONTAL/LAT IMPRESSION: No acute radiographic abnormality. - BENZONATATE 100 MG CAPSULE 2. Suspected COVID-19 virus infection - ICD9: V01.79, ICD10: Z20.822 - COVID WITH FLUA+B, ROUTINE 3. BENIGN HYPERTENSION - ICD9: 401.1, ICD10: I10 - BP in office 168/84. Pt reports frequent decongestant use. Pt states that BP normally runs 130's/70's. - Stop taking decongestants - Monitor BP at home, if BP >140/80 after illness is resolved then follow up with PCP - Continue current medication(s) - Encouraged dietary sodium restriction/DASH diet - Recommended regular aerobic exercise. - Goal of BP <130/80 - Recommend home or pharmacy blood pressure monitoring 4. Lower resp. tract infection - ICD9: 519.8, ICD10: J22 - AMOXICILLIN 875 MG-POTASSIUM CLAVULANATE 125 MG TABLET - PREDNISONE 20 MG TABLET Elina Darnell APRN Student documented in this encounter [facility] 04-15-2022 History of Present illness Narrative Subjective Cough Associated symptoms include wheezing. Pertinent negatives include no chills, no ear pain, no headaches, no sore throat, no myalgias, no shortness of breath and no eye redness. Shelton Kay is a 76 year old male who presents with cough, congestion and wheezing x 2 weeks. Describes cough as being dry and persistent and reports wheezing at night. States that there has been no improvement over the past 2 weeks. Denies nasal drainage but states he does feel like there is congestion in his chest. Denies fever, chills, sore throat, headache, or GI symptoms. Has tried mucinex and robitussin at home without relief. Pt reports taking multiple at home covid-19 tests over the past 2 weeks that were all negative, but is requesting to be re-tested today. Pt reports recent antibiotic use with amoxicllin within the last 30 days for dental work. Review of Systems Constitutional: Negative for chills, fever and malaise/fatigue. HENT: Positive for congestion. Negative for ear pain, sinus pain and sore throat. Eyes: Negative for discharge and redness. Respiratory: Positive for cough and wheezing. Negative for sputum production and shortness of breath. Gastrointestinal: Negative for abdominal pain, constipation, diarrhea, nausea and vomiting. Musculoskeletal: Negative for myalgias. Skin: Negative for rash. Neurological: Negative for headaches. BP 168/84 Pulse 81 Temp 36.1 C (97 F) Resp 18 Wt 82.6 kg (182 lb) SpO2 98% BMI 25.75 kg/m PAST MEDICAL HISTORY Diagnosis Date Allergic rhinitis, cause unspecified Arthritis Benign neoplasm of colon Carotid artery stenosis Diverticulosis of colon (without mention of hemorrhage) Essential hypertension, benign Gout, unspecified H/O carotid stenosis Hepatomegaly Internal hemorrhoids without mention of complication Other and unspecified hyperlipidemia Snoring PAST SURGICAL HISTORY Procedure Laterality Date ARTHROPLASTY TOTAL SHOULDER 06/2011 Dr. Benitez. ARTHRP ACETBLR/PROX FEM PROSTC AGRFT/ALGRFT 04/2012 Dr. Wood> [facility] ARTHRP KNE CONDYLE&PLATU MEDIAL&LAT COMPARTMENTS Right COLONOSCOPY W/BIOPSY SINGLE/MULTIPLE 08/24/2006 EGD 12/01/2020 EYE SURGERY HX JOINT REPLACEMENT HX OPEN REPAIR OF ROTATOR CUFF ACUTE 10/03/2008 Rotator cuff repair-right PAST SURGICAL HISTORY OF right knee scope PAST SURGICAL HISTORY OF cataract both eyes TONSILLECTOMY HX TONSILLECTOMY PRIMARY/SECONDARY <AGE 12 Tonsillectomy and adnoids ALLERGIES Indocin [Indomethacin Sodium] and Mobic [Meloxicam] MEDICATIONS simvastatin (ZOCOR) 20 mg tablet Take 1 tablet by mouth once daily. sildenafil (VIAGRA) 100 mg tablet Take 1/2 to 1 tablet by mouth 1 hour prior to anticipated intercourse. POTASSIUM-99 ORAL Take 99 % by mouth twice daily. omeprazole (PRILOSEC) 20 mg capsule TAKE 1 CAPSULE BY MOUTH EVERY DAY lisinopril (ZESTRIL, PRINIVIL) 10 mg tablet Take 1 tablet by mouth once daily. aspirin 81 mg chewable tablet Take 81 mg by mouth once daily. coenzyme Q10 (COENZYME Q-10) 100 mg cap capsule Take 100 mg by mouth once daily. omega 8-vmr-xar-fish oil 500-100-1,000 mg cap Take 1 capsule by mouth once daily. multivitamins ORAL Liqd TAKES 1 OUNCE DAILY benzonatate (TESSALON PERLE) 100 mg capsule Take 2 capsules by mouth three times daily as needed for cough for up to 10 days. FAMILY HISTORY Problem Relation Age of Onset Cancer Mother KIDNEY Coronary Artery Disease Mother Lipids Mother Stroke Mother Cancer Father LUNG other (fibromyalgia) Sister Prostate Cancer Brother Social History Tobacco Use Smoking status: Former Packs/day: 1.00 Years: 10.00 Pack years: 10.00 Types: Cigarettes Quit date: 07/18/1971 Years since quittin.7 Smokeless tobacco: Never Vaping Use Vaping Use: Never used Substance Use Topics Alcohol use: Yes Alcohol/week: 5.0 standard drinks Types: 2 Cans of Beer (12oz) per week Drug use: No Objective Physical Exam Vitals and nursing note reviewed. Constitutional: Appearance: Normal appearance. HENT: Head: Normocephalic. Right Ear: Tympanic membrane and ear canal normal. Left Ear: Tympanic membrane and ear canal normal. Nose: Nose normal. Mouth/Throat: Pharynx: No oropharyngeal exudate or posterior oropharyngeal erythema. Eyes: Conjunctiva/sclera: Conjunctivae normal. Pupils: Pupils are equal, round, and reactive to light. Cardiovascular: Rate and Rhythm: Normal rate and regular rhythm. Pulmonary: Effort: Pulmonary effort is normal. Breath sounds: Wheezing (slight lower bilaterally) present. Abdominal: Palpations: Abdomen is soft. Lymphadenopathy: Cervical: No cervical adenopathy. Skin: General: Skin is warm and dry. Neurological: Mental Status: He is alert. ASSESSMENT/PLAN: 1. Acute cough - ICD9: 786.2, ICD10: R05.1 (primary diagnosis) - XR CHEST 2V FRONTAL/LAT IMPRESSION: No acute radiographic abnormality. - BENZONATATE 100 MG CAPSULE 2. Suspected COVID-19 virus infection - ICD9: V01.79, ICD10: Z20.822 - COVID WITH FLUA+B, ROUTINE 3. BENIGN HYPERTENSION - ICD9: 401.1, ICD10: I10 - BP in office 168/84. Pt reports frequent decongestant use. Pt states that BP normally runs 130's/70's. - Monitor BP at home, if BP >140/80 after illness is resolved then follow up with PCP - Stop taking decongestants - Continue current medication(s) - Encouraged dietary sodium restriction/DASH diet - Recommended regular aerobic exercise. - Goal of BP <130/80 - Recommend home or pharmacy blood pressure monitoring 4. Lower resp. tract infection - ICD9: 519.8, ICD10: J22 - AMOXICILLIN 875 MG-POTASSIUM CLAVULANATE 125 MG TABLET - PREDNISONE 20 MG TABLET Elina Darnell APRN Student TEACHING PROVIDER (Physician/PA/PROTECTION MGR) NOTE OF PERSONAL INVOLVEMENT IN CARE: I have personally seen and examined the patient and performed the medical decision-making components. I have reviewed the Advanced Practice Registered Nurse (PROTECTION MGR) Student's documentation and verified the findings in the note as written. Any additions or changes are noted in bold/italics. Signature: Kinga Pepper Date: 04/15/2022 Time: 12:59 PM documented in this encounter [facility] 03-08-2022 Miscellaneous Notes OK to refill as ordered Federico Vigil MD Last office visit: 01/15/22 Last labs: 10/06/21 Patient phones requesting refills as follows: Requested Prescriptions Pending Prescriptions Disp Refills simvastatin (ZOCOR) 20 mg tablet 90 tablet 3 Sig: Take 1 tablet by mouth once daily. Please review and advise. Tianna Barcenas LPN documented in this encounter [facility] 03-04-2022 History of Present illness Narrative Shelton Kay is a 76 year old male presents for yearly evaluation of carotid disease. He is a prior DJW pt that was last seen 04/30/21 when he had about B 50% carotid stenosis. Plan was for PVR and carotid US in 1 year. He had a PVR done 07/2021 that showed: normal PVR to the ankle, but some digital disease. He has no sx of claudication or rest pain. He has some night cramps on occasion. He works out 5x/week and plays golf 2-3x/week. His carotid was done 02/05/22 and showed: R CCA 50-99% stenosis, R ICA 40-59% stenosis, and R SCA 50-99% stenosis. L CCA 50-99% stenosos, L TCA21-22% stenosis, L SCA 50-99% stenosis. And no evidence of reversal of flow in the vertebrals. There was no change in degree of stenosis from prior study. SYMPTOMS: no notable symptoms We reviewed the symptoms of TIA/stroke including weakness or numbness in an extremity, slurred speech, facial droop, amaurosis fugax, and the pt does not have any symptoms. The pt understands that he/she should call or go to the ED should any of these symptoms develop and that delay could result in stroke. We had an extensive discussion about carotid stenosis, risk factors, rationale for treatment and types of treatment including medical mgmt, carotid stent and carotid endarterectomy. PATIENT'S CURRENT TREATMENT: Aspirin Statin: Yes Patient does not have a history of a CVA. Patient has not had previous carotid surgery HISTORIES: PAST MEDICAL HISTORY Diagnosis Date Allergic rhinitis, cause unspecified Arthritis Benign neoplasm of colon Carotid artery stenosis Diverticulosis of colon (without mention of hemorrhage) Essential hypertension, benign Gout, unspecified H/O carotid stenosis Hepatomegaly Internal hemorrhoids without mention of complication Other and unspecified hyperlipidemia Snoring PAST SURGICAL HISTORY Procedure Laterality Date ARTHROPLASTY TOTAL SHOULDER 06/2011 Dr. Benitez. ARTHRP ACETBLR/PROX FEM PROSTC AGRFT/ALGRFT 04/2012 Dr. Wood> [facility]. ARTHRP KNE CONDYLE&PLATU MEDIAL&LAT COMPARTMENTS Right COLONOSCOPY W/BIOPSY SINGLE/MULTIPLE 08/24/2006 EGD 12/01/2020 EYE SURGERY HX JOINT REPLACEMENT HX OPEN REPAIR OF ROTATOR CUFF ACUTE 10/03/2008 Rotator cuff repair-right PAST SURGICAL HISTORY OF right knee scope PAST SURGICAL HISTORY OF cataract both eyes TONSILLECTOMY HX TONSILLECTOMY PRIMARY/SECONDARY <AGE 12 Tonsillectomy and adnoids Social History Tobacco Use Smoking status: Former Packs/day: 1.00 Years: 10.00 Pack years: 10.00 Types: Cigarettes Quit date: 07/18/1971 Years since quittin.6 Smokeless tobacco: Never Vaping Use Vaping Use: Never used Substance Use Topics Alcohol use: Yes Alcohol/week: 5.0 standard drinks Types: 2 Cans of Beer (12oz) per week Drug use: No MEDICATIONS: Current Outpatient Medications Medication Sig sildenafil (VIAGRA) 100 mg tablet Take 1/2 to 1 tablet by mouth 1 hour prior to anticipated intercourse. POTASSIUM-99 ORAL Take 99 % by mouth twice daily. omeprazole (PRILOSEC) 20 mg capsule TAKE 1 CAPSULE BY MOUTH EVERY DAY lisinopril (ZESTRIL, PRINIVIL) 10 mg tablet Take 1 tablet by mouth once daily. aspirin 81 mg chewable tablet Take 81 mg by mouth once daily. simvastatin (ZOCOR) 20 mg tablet Take 1 tablet by mouth once daily. coenzyme Q10 (COENZYME Q-10) 100 mg cap capsule Take 100 mg by mouth once daily. omega 9-yqo-uds-fish oil 500-100-1,000 mg cap Take 1 capsule by mouth once daily. multivitamins ORAL Liqd TAKES 1 OUNCE DAILY No current facility-administered medications for this visit. ALLERGIES: ALLERGIES Allergen Reactions Indocin [Indomethac* Diarrhea Mobic [Meloxicam] Diarrhea PHYSICAL EXAM: General appearance: Normal, healthy, well nourished, alert and cooperative individual, in no acute distress. Skin: No lesions, rashes or ulcerations; normal color and turgor. Pulmonary: No wheezing or rhonchi. Unlabored on RA Upper Extremities: Normal exam of the upper extremities. No clubbing, cyanosis, or edema. Neuro: Awake, alert, and oriented., Gait normal. Sensation grossly intact., CN II-XII grossly intact. IMPRESSION: Carotid Artery Disease: Discussion of carotid artery disease is undertaken with Shelton. The implications of both symptomatic and asymptomatic carotid artery disease are discussed with specific regard to his problem. Different alternatives including medical management with antiplatelet agents and statin agents, endovascular stenting of carotid artery stenosis with cerebral protection, and carotid endarterectomy are discussed in detail with the patient and family members present. Discussion is had with the patient with regard to current thinking with regards to carotid artery disease and how each of the potential therapies impacts on this patient's particular disease state. Expectant management of medical therapy with it's attendant risks of stroke is discussed. PLAN: Continue asa and statin Will need repeat carotid US and f/u visit in 1 year. Pt will call with questions or changes in s/sx. Pt does not appear to have significant or symptomatic PAD. He is not interested in any procedures. Unless he were to develop a non-healing wound or claudication symptoms, will not repeat his pvr. Shabnam Caba MD I spent 30 minutes in the visit, with more than 50% of the total [id number] time of the visit in counseling / coordination of care. 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 Will come tomorrow to get this. Yasmeen Oliveros Ma OK to refill as ordered Federico Vigil MD Patient has been identified by name and date of : Yes Requested Prescriptions Pending Prescriptions Disp Refills sildenafil (VIAGRA) 100 mg tablet 30 tablet 5 Sig: Take 1/2 to 1 tablet by mouth 1 hour prior to anticipated intercourse. RX INSTRUCTIONS: Print and leave at the medical records. Call patient when complete. Gloria Christopher MA Patient requested printed prescription. Xu: 09/2021 No appointment scheduled. It appears it needs rescheduled. Last refill: 07/2021 Patient is requesting to pick-up this RX in paper form and take it to his pharmacy himself. Patient has been identified by name and date of : Yes Requested Prescriptions Pending Prescriptions Disp Refills sildenafil (VIAGRA) 100 mg tablet 30 tablet 5 Sig: Take 1/2 to 1 tablet by mouth 1 hour prior to anticipated intercourse. RX INSTRUCTIONS: PATIENT WOULD LIKE TO PICK-UP THIS RX AT [facility], PLEASE NOTIFY WHEN READY AT [phone] [facility]ai R[facility] documented in this encounter [facility] 03-01-2022 Miscellaneous Notes LM for patient to see if we can move his appointment up to 10am with Dr. Caba on for brianna. Told him to call me to see if that works. documented in this encounter [facility] 01-19-2022 Miscellaneous Notes Pt notified of results via [facility]. Janneth Burkett Ma Can please call the patient and let him know that I reviewed his lab results. Labs were all relatively normal. At this time I do not see any causes for his symptoms. Leg cramping can be idiopathic and may occur for unknown reasons. I would still recommend that he stay well-hydrated, stretch before and after exercise, and try a B complex vitamin. Please let me know if he has any questions. Thank you. Ruth Perez APRN.LIZET documented in this encounter [facility] 01-15-2022 Instructions Ruth Perez APRN.CNP - 01/15/2022 9:46 AM EDT 1.) Get labs completed. 2.) Increase water intake to 8-10 glasses per day. 3.) Recommend trying a B complex vitamin 4.) Continue to stretch the legs. 5.) schedule follow up with vascular, Dr. Wolff. 6.) Follow up pending test results. documented in this encounter [facility] 01-15-2022 History of Present illness Narrative This is a 76 year old male who presents today with: Patient presents with: Acute Visit: cramping in calves HISTORY OF PRESENT ILLNESS: Shelton Kay is a 76 year old male. Patient presents with: Acute Visit: cramping in calves In the office for calf cramps. Cramping started a couple months ago Noticing cramps in calfs that seem worse at night. Refers that he stays well hydrated, drinks about 4 bottles of water per day. Is mindful to stretch when traveling. Wearing supportive shoes. Will get up at night to stretch the legs. Working out 5 days per week, weight lifting and cardio. Golfing about 3 times per week. Has been taking a statin mcc without any problems. Does take a potassium supplement daily. Seeing Vascular annually. PAST MEDICAL HISTORY: PAST MEDICAL HISTORY Diagnosis Date Allergic rhinitis, cause unspecified Arthritis Benign neoplasm of colon Carotid artery stenosis Diverticulosis of colon (without mention of hemorrhage) Essential hypertension, benign Gout, unspecified H/O carotid stenosis Hepatomegaly Internal hemorrhoids without mention of complication Other and unspecified hyperlipidemia Snoring PAST SURGICAL HISTORY Procedure Laterality Date ARTHROPLASTY TOTAL SHOULDER 06/2011 Dr. Benitez. ARTHRP ACETBLR/PROX FEM PROSTC AGRFT/ALGRFT 04/2012 Dr. Wood> [facility]. ARTHRP KNE CONDYLE&PLATU MEDIAL&LAT COMPARTMENTS Right COLONOSCOPY W/BIOPSY SINGLE/MULTIPLE 08/24/2006 EGD 12/01/2020 EYE SURGERY HX JOINT REPLACEMENT HX OPEN REPAIR OF ROTATOR CUFF ACUTE 10/03/2008 Rotator cuff repair-right PAST SURGICAL HISTORY OF right knee scope PAST SURGICAL HISTORY OF cataract both eyes TONSILLECTOMY HX TONSILLECTOMY PRIMARY/SECONDARY <AGE 12 Tonsillectomy and adnoids ALLERGIES Indocin [Indomethacin Sodium] and Mobic [Meloxicam] MEDICATIONS Current Outpatient Medications Medication Sig omeprazole (PRILOSEC) 20 mg capsule TAKE 1 CAPSULE BY MOUTH EVERY DAY lisinopril (ZESTRIL, PRINIVIL) 10 mg tablet Take 1 tablet by mouth once daily. sildenafil (VIAGRA) 100 mg tablet Take 1/2 to 1 tablet by mouth 1 hour prior to anticipated intercourse. aspirin 81 mg chewable tablet Take 81 mg by mouth once daily. simvastatin (ZOCOR) 20 mg tablet Take 1 tablet by mouth once daily. coenzyme Q10 (CO Q-10) 100 mg cap capsule Take 100 mg by mouth once daily. omega 2-vvp-bdm-fish oil 500-100-1,000 mg cap Take 1 capsule by mouth once daily. multivitamins ORAL Liqd TAKES 1 OUNCE DAILY No current facility-administered medications for this visit. FAMILY HISTORY Problem Relation Age of Onset Cancer Mother KIDNEY Coronary Artery Disease Mother Lipids Mother Stroke Mother Cancer Father LUNG other (fibromyalgia) Sister Prostate Cancer Brother Social History Tobacco Use Smoking status: Former Smoker Packs/day: 1.00 Years: 10.00 Pack years: 10.00 Types: Cigarettes Quit date: 07/18/1971 Years since quittin.5 Smokeless tobacco: Never Used Vaping Use Vaping Use: Never used Substance Use Topics Alcohol use: Yes Alcohol/week: 5.0 standard drinks Types: 2 Cans of Beer (12oz) per week Drug use: No REVIEW OF SYSTEMS GENERAL: No weight loss, malaise or fevers/chills HEENT: Negative for frequent or significant headaches, No changes in hearing or vision. NECK: Negative for lumps, goiter, pain and significant neck swelling RESPIRATORY: Negative for cough, hemoptysis, wheezing, dyspnea or shortness of breath CARDIOVASCULAR: Negative for chest pain, leg swelling, orthopnea, or palpitations GI: No nausea, vomiting, or diarrhea/constipation. No hematochezia/melena. No heartburn or reflux symptoms. : No history of dysuria, frequency or incontinence MUSCULOSKELETAL: + Leg cramps SKIN: Negative for lesions, rash, and itching ENDOCRINE: Negative for cold or heat intolerance, polyuria, polydipsia and goiter NEURO: No history of headaches, syncope, paralysis, seizures or tremors MOOD: Negative for depression, anxiety, or suicidal ideation. EXAM: BP 140/68 Pulse (!) 59 Resp 16 Wt 80.7 kg (178 lb) SpO2 98% BMI 25.54 kg/m PHYSICAL EXAM: General Appearance: Well appearing, alert, in no acute distress, well-hydrated, well nourished. Skin: Skin color, texture, turgor normal, no suspicious rashes or lesions. Head: Normocephalic, no masses, lesions, tenderness or abnormalities. Eyes: Anicteric sclera. Extraocular movements are intact. Lungs: Lungs clear to auscultation. No wheezing, rhonchi, rales. Heart: RRR without murmur, gallop, or rubs. No ectopy. Extremities: No deformities, edema, skin discoloration, clubbing or cyanosis. Good capillary refill. Musculoskeletal: No joint swelling, deformity, or tenderness. Peripheral Pulses: Normal, Capillary refill <2secs, strong peripheral pulses, Pulses palpable. Neurologic: Gait normal. Reflexes normal and symmetric. Sensation grossly intact., Negative findings: muscle strength normal. ASSESSMENT/PLAN: 1. Leg cramping - ICD9: 729.82, ICD10: R25.2 - Get the following labs completed. - May try a B complex vitamin. - Instructed to increase water to at least 8-10 glasses per day. - Continue to stretch daily - Schedule follow up with Vascular. - CBC + DIFF - COMP METABOLIC PANEL - MAGNESIUM BLD - CK CREATINE KINASE Follow-up pending test results or sooner as needed. Discussed treatment plan and patient voices understanding. Patient's questions answered appropriately. Medications and potential side effects were discussed and patient voices understanding. Ruth Perez [email or web address] This note was partially generated using [employer] voice recognition system. Note was reviewed for accuracy. There may be minor misspellings or grammar miscues with [employer] voice recognition. documented in this encounter [facility] 11-24-2021 Instructions Karina Cline - 11/24/2021 4:16 PM EDT STEROID INJECTION You have been injected with a corticosteroid and local anesthesia today. This should provide relief of symptoms for the next 8 hours or so. After this time frame you will likely experience an increase in pain symptoms again until the effects of the steroid start to work, which should occur within 24-48 hours. Approximately 2% of individuals may experience a post injection flare or severe worsening of symptoms following injection. If this occurs ice the area and take Tylenol or Aleve for pain. In some very rare instances skin depigmentation and joint infection may occur. Joint infection is a concern if you experience any of the following: - pain for more than 48 hours after the injection - pain develops more than 2 days after the injection - the area becomes red, hot or swollen - you develop a fever following the injection Corticosteroid injections can also rarely interfere with the healing process and weaken tendons, sometimes causing tendons to rupture. Repeated injections of steroids can also damage joint cartilage. For these reasons, there are limits to how many times and how frequently corticosteroid injections can be used in the same area. If anything seems unusual or out of the ordinary please contact our office as soon as possible for further instruction. documented in this encounter [facility] 11-24-2021 History of Present illness Narrative Images from the original note were not included. FOLLOW UP PODIATRIC OFFICE VISIT Chief Complaint: This 76 year old who presents for follow up:pain in right 5th toe Patient presents to clinic for evaluation of right foot. Patient complains of pain to the right 5th toe. Patient states he gets pain in the right 5th toe for the past one month. He has been treating with epsom salts and ice. Nothing seems to work. Patient states there is pain to the ball of right 5th metatarsal He feels a knot to the bottom of his right foot. He had similar pain in left foot and this was relieved with steroid shot. PAIN EVALUATION 11/24/2021 1540 Pain Location: Toe right foot pinky toe Description: Sore Duration Amount of Time: 1 Duration Units: Months Frequency: Intermittent Intervention/Comfort measure: Relaxation Comments: epsom salt soaks, relaxation Hemoglobin A1C Date Value Ref Range Status 10/06/2021 5.5 4.3 - 5.6 % Final Comment: [place] [employer] guidelines indicate that patients with HgbA1c in the range 5.7-6.4% are at increased risk for development of diabetes, and intervention by lifestyle modification may be beneficial. HgbA1c greater or equal to 6.5% is considered diagnostic of diabetes. PCP: Federico Vigil MD PAST MEDICAL HISTORY Diagnosis Date Allergic rhinitis, cause unspecified Arthritis Benign neoplasm of colon Carotid artery stenosis Diverticulosis of colon (without mention of hemorrhage) Essential hypertension, benign Gout, unspecified H/O carotid stenosis Hepatomegaly Internal hemorrhoids without mention of complication Other and unspecified hyperlipidemia Snoring Current Outpatient Medications Medication Sig omeprazole (PRILOSEC) 20 mg capsule TAKE 1 CAPSULE BY MOUTH EVERY DAY lisinopril (ZESTRIL, PRINIVIL) 10 mg tablet Take 1 tablet by mouth once daily. sildenafil (VIAGRA) 100 mg tablet Take 1/2 to 1 tablet by mouth 1 hour prior to anticipated intercourse. aspirin 81 mg chewable tablet Take 81 mg by mouth once daily. simvastatin (ZOCOR) 20 mg tablet Take 1 tablet by mouth once daily. coenzyme Q10 (CO Q-10) 100 mg cap capsule Take 100 mg by mouth once daily. omega 8-hpf-ymp-fish oil 500-100-1,000 mg cap Take 1 capsule by mouth once daily. multivitamins ORAL Liqd TAKES 1 OUNCE DAILY No current facility-administered medications for this visit. ALLERGIES Allergen Reactions Indocin [Indomethac* Diarrhea Mobic [Meloxicam] Diarrhea PAST SURGICAL HISTORY Procedure Laterality Date ARTHROPLASTY TOTAL SHOULDER 06/2011 Dr. Benitez. ARTHRP ACETBLR/PROX FEM PROSTC AGRFT/ALGRFT 04/2012 Dr. Wood> [facility] ARTHRP KNE CONDYLE&PLATU MEDIAL&LAT COMPARTMENTS Right COLONOSCOPY W/BIOPSY SINGLE/MULTIPLE 08/24/2006 EGD 12/01/2020 EYE SURGERY HX JOINT REPLACEMENT HX OPEN REPAIR OF ROTATOR CUFF ACUTE 10/03/2008 Rotator cuff repair-right PAST SURGICAL HISTORY OF right knee scope PAST SURGICAL HISTORY OF cataract both eyes TONSILLECTOMY HX TONSILLECTOMY PRIMARY/SECONDARY <AGE 12 Tonsillectomy and adnoids Physical Exam: OBJECTIVE: Constitutional: Pt is a well developed 76 year old male who is alert, oriented, cooperative and in no apparent distress. Eyes: Following during examination. No redness or drainage. Respiratory: RR normal and nonlabored. Even breathing. No evidence of distress. Psychology: Patient is engaged during conversation. Normal affect and mood. Does not appear depressed or anxious. NVSI unchanged from previous visit. Dermatological: Nails 1-5 b/l are normal. Webspaces clean and dry 1-4 b/l. Skin appears well hydrated and supple. good color, texture, turgor. No open lesions present. No callosities present. Musculoskeletal/Orthopaedic: Patient has pain to palpation of right plantar lateral right 5th metatarsa. No pain with rom of right 5th mtpj xrays of right foot reviewed. Small tailors bunion. No acute fracture is noted. ASSESSMENT: (M77.51) Bursitis of right foot (primary encounter diagnosis) (M21.621) Tailor's bunion of right foot PLAN: Discussed pain in right foot. Pain is located to plantar lateral right 5th metatarsal. Discussed treatment options not limited to otc pain medication, inserts or oral steroid vs injection. This patient elected for injection. Given that his pain is plantar lateral 5th metatarsal, suspect bursitis. Discussed the planned injection to right foot Discussed risks of injection not limited to pain, swelling, bleeding, slow wound healing, recurrent pain. Patient elects to proceed with injection. Patient elected to proceed with an injection to the right 5th metatarsal bursa today. The risks, benefits, potential complications, personnel present, and alternatives to this were discsussed. Pt elected to proceed. all questions were answered. no guarantees were given. A timeout was performed. patient properly identified. procedure site marked. Under aseptic technique an injection was performed to the right foot using a mixture of cc of 0.5 % Marcaine plain, of kenalog and cc of dexamethazone Karina Cline DPM documented in this encounter [facility] 11-24-2021 History of Present illness Narrative Radiology Service Progress Note PATIENT NAME: Shelton Kay DATE OF SERVICE: November 24, 2021 TIME: 2:30 PM PATIENT IDENTITY VERIFICATION COMPLETED USING TWO (2) IDENTIFIERS: Name and Date of confirmed by patient verbally. FALL SCREENING: Has the patient had 2 falls in the last year or 1 fall with injury or currently using an Ambulatory Assistive Device (Walker, Cane, Wheelchair, Crutches, etc.)? No PATIENT GENDER DATA: Male PATIENT RELEVANT IMPLANT DATA REVIEWED: Not Applicable RADIOLOGY DEPARTMENT: General X-ray: Exam(s) Completed: Lower Extremity X-Ray(s): Foot, Right and Wt. Bearing PERIPHERAL IV DATA: Not applicable SIGNED BY: RT Eunice(R) November 24, 2021 2:30 PM documented in this encounter [facility] 10-15-2021 Miscellaneous Notes Insurance will only cover Quantity Limit: 1 Quantity per 1 Day Pharmacy calls in requesting the following refill(s): Pending Prescriptions Disp Refills OMEPRAZOLE 20 MG CAPSULE,DELAYED RELEASE 90 capsule 1 Sig: TAKE 1 CAPSULE BY MOUTH EVERY DAY NUHA: Yes documented in this encounter [facility] documented as of this encounter (statuses as of 01/18/2023) [facility] History of Past illness Narrative* Problem Noted Date Diagnosed Date Resolved Date 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 3 Pain in limb 10/09/2007 10/30/2018 Disturbance of skin sensation 10/09/2007 10/30/2018 documented as of this encounter (statuses as of 01/25/2023) [facility] History of Past illness Narrative* Problem Noted Date Diagnosed Date Resolved Date 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 3 Pain in limb 10/09/2007 10/30/2018 Disturbance of skin sensation 10/09/2007 10/30/2018 documented as of this encounter (statuses as of 02/21/2023) [facility] History of Past illness Narrative* Problem Noted Date Diagnosed Date Resolved Date 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 3 Pain in limb 10/09/2007 10/30/2018 Disturbance of skin sensation 10/09/2007 10/30/2018 documented as of this encounter (statuses as of 03/18/2023) [facility] History of Past illness Narrative* Problem Noted Date Diagnosed Date Resolved Date 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 3 Pain in limb 10/09/2007 10/30/2018 Disturbance of skin sensation 10/09/2007 10/30/2018 documented as of this encounter (statuses as of 03/18/2023) [facility] History of Past illness Narrative* Problem Noted Date Diagnosed Date Resolved Date 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 3 Pain in limb 10/09/2007 10/30/2018 Disturbance of skin sensation 10/09/2007 10/30/2018 documented as of this encounter (statuses as of 03/30/2023) [facility] History of Past illness Narrative* Problem Noted Date Diagnosed Date Resolved Date 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 3 Pain in limb 10/09/2007 10/30/2018 Disturbance of skin sensation 10/09/2007 10/30/2018 documented as of this encounter (statuses as of 03/30/2023) [facility] History of Past illness Narrative* Problem Noted Date Diagnosed Date Resolved Date 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 3 Pain in limb 10/09/2007 10/30/2018 Disturbance of skin sensation 10/09/2007 10/30/2018 documented as of this encounter (statuses as of 03/30/2023) [facility] History of Past illness Narrative* Problem Noted Date Diagnosed Date Resolved Date 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 3 Pain in limb 10/09/2007 10/30/2018 Disturbance of skin sensation 10/09/2007 10/30/2018 documented as of this encounter (statuses as of 03/30/2023) [facility] History of Past illness Narrative* Problem Noted Date Diagnosed Date Resolved Date 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 3 Pain in limb 10/09/2007 10/30/2018 Disturbance of skin sensation 10/09/2007 10/30/2018 documented as of this encounter (statuses as of 04/17/2023) [facility] History of Past illness Narrative* Problem Noted Date Diagnosed Date Resolved Date 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 3 Pain in limb 10/09/2007 10/30/2018 Disturbance of skin sensation 10/09/2007 10/30/2018 documented as of this encounter (statuses as of 04/23/2023) [facility] History of Past illness Narrative* Problem Noted Date Diagnosed Date Resolved Date 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 3 Pain in limb 10/09/2007 10/30/2018 Disturbance of skin sensation 10/09/2007 10/30/2018 documented as of this encounter (statuses as of 05/02/2023) [facility] History of Past illness Narrative* Problem Noted Date Diagnosed Date Resolved Date 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 3 Pain in limb 10/09/2007 10/30/2018 Disturbance of skin sensation 10/09/2007 10/30/2018 documented as of this encounter (statuses as of 05/02/2023) [facility] History of Past illness Narrative* Problem Noted Date Diagnosed Date Resolved Date 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 3 Pain in limb 10/09/2007 10/30/2018 Disturbance of skin sensation 10/09/2007 10/30/2018 documented as of this encounter (statuses as of 05/10/2023) [facility] History of Past illness Narrative* Problem Noted Date Diagnosed Date Resolved Date 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 3 Pain in limb 10/09/2007 10/30/2018 Disturbance of skin sensation 10/09/2007 10/30/2018 documented as of this encounter (statuses as of 05/10/2023) [facility] History of Past illness Narrative* Problem Noted Date Diagnosed Date Resolved Date 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 3 Pain in limb 10/09/2007 10/30/2018 Disturbance of skin sensation 10/09/2007 10/30/2018 documented as of this encounter (statuses as of 05/22/2023) [facility] History of Past illness Narrative* Problem Noted Date Diagnosed Date Resolved Date 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 3 Pain in limb 10/09/2007 10/30/2018 Disturbance of skin sensation 10/09/2007 10/30/2018 documented as of this encounter (statuses as of 05/22/2023) [facility] History of Past illness Narrative* Problem Noted Date Diagnosed Date Resolved Date 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 3 Pain in limb 10/09/2007 10/30/2018 Disturbance of skin sensation 10/09/2007 10/30/2018 documented as of this encounter (statuses as of 05/22/2023) [address]07-2011 History of Past illness Narrative* Problem Noted Date Diagnosed Date Resolved Date 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 3 Pain in limb 10/09/2007 10/30/2018 Disturbance of skin sensation 10/09/2007 10/30/2018 documented as of this encounter (statuses as of 05/24/2023) [facility] History of Past illness Narrative* Problem Noted Date Diagnosed Date Resolved Date 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 3 Pain in limb 10/09/2007 10/30/2018 Disturbance of skin sensation 10/09/2007 10/30/2018 documented as of this encounter (statuses as of 05/25/2023) [facility] History of Past illness Narrative* Problem Noted Date Diagnosed Date Resolved Date 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 3 Pain in limb 10/09/2007 10/30/2018 Disturbance of skin sensation 10/09/2007 10/30/2018 documented as of this encounter (statuses as of 05/26/2023) [facility] History of Past illness Narrative* Problem Noted Date Diagnosed Date Resolved Date 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 3 Pain in limb 10/09/2007 10/30/2018 Disturbance of skin sensation 10/09/2007 10/30/2018 documented as of this encounter (statuses as of 05/26/2023) [facility] History of Past illness Narrative* Problem Noted Date Diagnosed Date Resolved Date 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 3 Pain in limb 10/09/2007 10/30/2018 Disturbance of skin sensation 10/09/2007 10/30/2018 documented as of this encounter (statuses as of 06/07/2023) [facility] History of Past illness Narrative* Problem Noted Date Diagnosed Date Resolved Date 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 3 Pain in limb 10/09/2007 10/30/2018 Disturbance of skin sensation 10/09/2007 10/30/2018 documented as of this encounter (statuses as of 06/14/2023) [facility] History of Past illness Narrative* Problem Noted Date Diagnosed Date Resolved Date 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 3 Pain in limb 10/09/2007 10/30/2018 Disturbance of skin sensation 10/09/2007 10/30/2018 documented as of this encounter (statuses as of 06/23/2023) [facility] History of Past illness Narrative* Problem Noted Date Resolved Date Pain in limb 10/09/2007 10/30/2018 Disturbance of skin sensation 10/09/2007 documented as of this encounter (statuses as of 10/15/2021) [facility] History of Past illness Narrative* Problem Noted Date Resolved Date Pain in limb 10/09/2007 10/30/2018 Disturbance of skin sensation 10/09/2007 documented as of this encounter (statuses as of 10/15/2021) [facility] History of Past illness Narrative* Problem Noted Date Resolved Date Pain in limb 10/09/2007 10/30/2018 Disturbance of skin sensation 10/09/2007 documented as of this encounter (statuses as of 11/16/2021) [address]24-2008 History of Past illness Narrative* Problem Noted Date Resolved Date Pain in limb 10/09/2007 10/30/2018 Disturbance of skin sensation 10/09/2007 documented as of this encounter (statuses as of 11/25/2021) [place] [id number] History of Past illness Narrative* Problem Noted Date Resolved Date Pain in limb 10/09/2007 10/30/2018 Disturbance of skin sensation 10/09/2007 documented as of this encounter (statuses as of 11/25/2021) [place] [id number] History of Past illness Narrative* Problem Noted Date Resolved Date Pain in limb 10/09/2007 10/30/2018 Disturbance of skin sensation 10/09/2007 documented as of this encounter (statuses as of 01/15/2022) [address]24-2008 History of Past illness Narrative* Problem Noted Date Resolved Date Pain in limb 10/09/2007 10/30/2018 Disturbance of skin sensation 10/09/2007 documented as of this encounter (statuses as of 01/19/2022) [facility] History of Past illness Narrative* Problem Noted Date Resolved Date Pain in limb 10/09/2007 10/30/2018 Disturbance of skin sensation 10/09/2007 documented as of this encounter (statuses as of 03/01/2022) [facility] History of Past illness Narrative* Problem Noted Date Resolved Date Pain in limb 10/09/2007 10/30/2018 Disturbance of skin sensation 10/09/2007 documented as of this encounter (statuses as of 03/01/2022) [facility] History of Past illness Narrative* Problem Noted Date Resolved Date Pain in limb 10/09/2007 10/30/2018 Disturbance of skin sensation 10/09/2007 documented as of this encounter (statuses as of 03/04/2022) [facility] History of Past illness Narrative* Problem Noted Date Resolved Date Pain in limb 10/09/2007 10/30/2018 Disturbance of skin sensation 10/09/2007 documented as of this encounter (statuses as of 03/08/2022) [facility] History of Past illness Narrative* Problem Noted Date Resolved Date Pain in limb 10/09/2007 10/30/2018 Disturbance of skin sensation 10/09/2007 documented as of this encounter (statuses as of 04/12/2022) [facility] History of Past illness Narrative* Problem Noted Date Resolved Date Pain in limb 10/09/2007 10/30/2018 Disturbance of skin sensation 10/09/2007 documented as of this encounter (statuses as of 04/15/2022) [facility] History of Past illness Narrative* Problem Noted Date Resolved Date Pain in limb 10/09/2007 10/30/2018 Disturbance of skin sensation 10/09/2007 documented as of this encounter (statuses as of 04/16/2022) [facility] History of Past illness Narrative* Problem Noted Date Resolved Date Pain in limb 10/09/2007 10/30/2018 Disturbance of skin sensation 10/09/2007 documented as of this encounter (statuses as of 04/21/2022) [address]24-2008 History of Past illness Narrative* Problem Noted Date Resolved Date Pain in limb 10/09/2007 10/30/2018 Disturbance of skin sensation 10/09/2007 documented as of this encounter (statuses as of 04/21/2022) [place] [id number] History of Past illness Narrative* Problem Noted Date Resolved Date Pain in limb 10/09/2007 10/30/2018 Disturbance of skin sensation 10/09/2007 documented as of this encounter (statuses as of 04/22/2022) [facility] History of Past illness Narrative* Problem Noted Date Resolved Date Pain in limb 10/09/2007 10/30/2018 Disturbance of skin sensation 10/09/2007 documented as of this encounter (statuses as of 04/28/2022) [facility] History of Past illness Narrative* Problem Noted Date Resolved Date Pain in limb 10/09/2007 10/30/2018 Disturbance of skin sensation 10/09/2007 documented as of this encounter (statuses as of 07/22/2022) [address]24-2008 History of Past illness Narrative* Problem Noted Date Resolved Date Pain in limb 10/09/2007 10/30/2018 Disturbance of skin sensation 10/09/2007 documented as of this encounter (statuses as of 07/22/2022) [facility] History of Past illness Narrative* Problem Noted Date Resolved Date Pain in limb 10/09/2007 10/30/2018 Disturbance of skin sensation 10/09/2007 documented as of this encounter (statuses as of 07/29/2022) [facility] History of Past illness Narrative* Problem Noted Date Resolved Date Pain in limb 10/09/2007 10/30/2018 Disturbance of skin sensation 10/09/2007 documented as of this encounter (statuses as of 08/01/2022) [address]24-2008 History of Past illness Narrative* Problem Noted Date Resolved Date Pain in limb 10/09/2007 10/30/2018 Disturbance of skin sensation 10/09/2007 documented as of this encounter (statuses as of 08/05/2022) [address]24-2008 History of Past illness Narrative* Problem Noted Date Resolved Date Pain in limb 10/09/2007 10/30/2018 Disturbance of skin sensation 10/09/2007 documented as of this encounter (statuses as of 08/13/2022) [facility] History of Past illness Narrative* Problem Noted Date Resolved Date Pain in limb 10/09/2007 10/30/2018 Disturbance of skin sensation 10/09/2007 documented as of this encounter (statuses as of 08/27/2022) [facility] History of Past illness Narrative* Problem Noted Date Resolved Date Pain in limb 10/09/2007 10/30/2018 Disturbance of skin sensation 10/09/2007 documented as of this encounter (statuses as of 08/31/2022) [facility] History of Past illness Narrative* Problem Noted Date Resolved Date Pain in limb 10/09/2007 10/30/2018 Disturbance of skin sensation 10/09/2007 documented as of this encounter (statuses as of 09/01/2022) [facility] History of Past illness Narrative* Problem Noted Date Resolved Date Pain in limb 10/09/2007 10/30/2018 Disturbance of skin sensation 10/09/2007 documented as of this encounter (statuses as of 09/06/2022) [facility] History of Past illness Narrative* Problem Noted Date Resolved Date Pain in limb 10/09/2007 10/30/2018 Disturbance of skin sensation 10/09/2007 documented as of this encounter (statuses as of 09/07/2022) [facility] History of Past illness Narrative* Problem Noted Date Resolved Date Pain in limb 10/09/2007 10/30/2018 Disturbance of skin sensation 10/09/2007 documented as of this encounter (statuses as of 09/14/2022) [facility] History of Past illness Narrative* Problem Noted Date Resolved Date Pain in limb 10/09/2007 10/30/2018 Disturbance of skin sensation 10/09/2007 documented as of this encounter (statuses as of 09/17/2022) [facility] History of Past illness Narrative* Problem Noted Date Resolved Date Pain in limb 10/09/2007 10/30/2018 Disturbance of skin sensation 10/09/2007 documented as of this encounter (statuses as of 09/21/2022) [address]24-2008 History of Past illness Narrative* Problem Noted Date Resolved Date Pain in limb 10/09/2007 10/30/2018 Disturbance of skin sensation 10/09/2007 documented as of this encounter (statuses as of 09/27/2022) [address]24-2008 History of Past illness Narrative* Problem Noted Date Resolved Date Pain in limb 10/09/2007 10/30/2018 Disturbance of skin sensation 10/09/2007 documented as of this encounter (statuses as of 10/11/2022) [facility] History of Past illness Narrative* Problem Noted Date Resolved Date Pain in limb 10/09/2007 10/30/2018 Disturbance of skin sensation 10/09/2007 documented as of this encounter (statuses as of 10/11/2022) [address]24-2008 History of Past illness Narrative* Problem Noted Date Resolved Date Pain in limb 10/09/2007 10/30/2018 Disturbance of skin sensation 10/09/2007 documented as of this encounter (statuses as of 10/12/2022) [address]24-2008 History of Past illness Narrative* Problem Noted Date Resolved Date Pain in limb 10/09/2007 10/30/2018 Disturbance of skin sensation 10/09/2007 documented as of this encounter (statuses as of 10/18/2022) [facility] History of Past illness Narrative* Problem Noted Date Resolved Date Pain in limb 10/09/2007 10/30/2018 Disturbance of skin sensation 10/09/2007 documented as of this encounter (statuses as of 10/19/2022) [address]24-2008 History of Past illness Narrative* Problem Noted Date Resolved Date Pain in limb 10/09/2007 10/30/2018 Disturbance of skin sensation 10/09/2007 documented as of this encounter (statuses as of 10/19/2022) [address]24-2008 History of Past illness Narrative* Problem Noted Date Resolved Date Pain in limb 10/09/2007 10/30/2018 Disturbance of skin sensation 10/09/2007 documented as of this encounter (statuses as of 10/25/2022) [facility] History of Past illness Narrative* Problem Noted Date Resolved Date Pain in limb 10/09/2007 10/30/2018 Disturbance of skin sensation 10/09/2007 documented as of this encounter (statuses as of 10/28/2022) [facility] History of Past illness Narrative* Problem Noted Date Resolved Date Pain in limb 10/09/2007 10/30/2018 Disturbance of skin sensation 10/09/2007 documented as of this encounter (statuses as of 11/11/2022) [facility] History of Past illness Narrative* Problem Noted Date Resolved Date Pain in limb 10/09/2007 10/30/2018 Disturbance of skin sensation 10/09/2007 documented as of this encounter (statuses as of 11/11/2022) [address]24[address]2008 History of Past illness Narrative* Problem Noted Date Resolved Date Pain in limb 10/09/2007 10/30/2018 Disturbance of skin sensation 10/09/2007 documented as of this encounter (statuses as of 11/11/2022) [facility] History of Past illness Narrative* Problem Noted Date Resolved Date Pain in limb 10/09/2007 10/30/2018 Disturbance of skin sensation 10/09/2007 documented as of this encounter (statuses as of 11/11/2022) [facility] History of Past illness Narrative* Problem Noted Date Resolved Date Pain in limb 10/09/2007 10/30/2018 Disturbance of skin sensation 10/09/2007 documented as of this encounter (statuses as of 11/29/2022) [address]24[address]2008 History of Past illness Narrative* Problem Noted Date Resolved Date Pain in limb 10/09/2007 10/30/2018 Disturbance of skin sensation 10/09/2007 documented as of this encounter (statuses as of 11/30/2022) [address]24[address]2008 History of Past illness Narrative* Problem Noted Date Resolved Date Pain in limb 10/09/2007 10/30/2018 Disturbance of skin sensation 10/09/2007 documented as of this encounter (statuses as of 12/30/2022) [facility] note* Diagnosis Pain- Primary Generalized pain [facility] [place] [facility] Diagnosis Pain Generalized pain [facility] [place] [facility]* Diagnosis Bursitis of right foot- Primary Tailor's bunion of right foot [facility] [place] [facility]* Diagnosis Leg cramping- Primary Cramp of limb [facility] in this [facility] [place] [facility]* Diagnosis ED (erectile dysfunction) of organic origin Impotence of organic origin [facility] [place] [facility]* Diagnosis Carotid stenosis, asymptomatic, bilateral- Primary [facility] [place] [facility]* Diagnosis Mixed hyperlipidemia [facility] [place] [facility]* Diagnosis Acute cough- Primary Suspected COVID-19 virus infection BENIGN HYPERTENSION Essential hypertension, benign Lower resp. tract infection Other diseases of respiratory system, not elsewhere classified documented in this [facility] [place] [facility]* Diagnosis Pain in left foot- Primary Pain in limb [facility] [place] [facility] Diagnosis Pain in left foot Pain in limb [facility] [place] [facility]* Diagnosis Tailor's bunion of left foot- Primary [facility] [place] [facility]* Diagnosis BENIGN HYPERTENSION- Primary Essential hypertension, benign Mixed hyperlipidemia PAD (peripheral artery disease) (HCC) Peripheral vascular disease, unspecified ED (erectile dysfunction) of organic origin Impotence of organic origin Gastroesophageal reflux disease, unspecified whether esophagitis present Need for influenza vaccination Need for prophylactic vaccination and inoculation against influenza [facility] this [facility] [place] [facility]* Diagnosis Dizziness- Primary Dizziness and giddiness Enlarged thyroid Goiter, unspecified [facility] [place] [facility]* Diagnosis Pain with swallowing- Primary Dysphagia, unspecified GERD without esophagitis Esophageal reflux [facility] [place] [facility]* Diagnosis Toe swelling- Primary Swelling of limb [facility] [place] [facility]* Diagnosis History of gout- Primary Personal history of other endocrine, metabolic, and immunity disorders documented in this [facility] [place] [facility]* Diagnosis Gout involving toe of right foot, unspecified cause, unspecified chronicity- Primary [facility] [place] [facility]* Diagnosis Acute cough documented in this encounter [facility] note* Diagnosis Atrial fibrillation, unspecified type (HCC)- Primary SOB (shortness of breath) Shortness of breath Shortness of breath documented in this encounter [facility] note* Diagnosis Acute cough documented in this encounter [facility] note* Diagnosis Gout involving toe of right foot, unspecified cause, unspecified chronicity- Primary documented in this encounter [facility] note* Diagnosis Atrial fibrillation, unspecified type (HCC) documented in this encounter [facility] note* Diagnosis Pain- Primary Generalized pain Acute gout involving toe of left foot, unspecified cause documented in this encounter [facility] note* Diagnosis Acute gout involving toe of left foot, unspecified cause- Primary Pain in left foot Pain in limb documented in this encounter [facility] note* Diagnosis Acute gout involving toe of left foot, unspecified cause- Primary documented in this encounter [facility] note* Diagnosis Acute gout involving toe of left foot, unspecified cause- Primary Pain in left foot Pain in limb Tailor's bunion of left foot Atrial fibrillation, unspecified type (HCC)- Primary Gout involving toe of right foot, unspecified cause, unspecified chronicity GERD without esophagitis Esophageal reflux BENIGN HYPERTENSION Essential hypertension, benign Mixed hyperlipidemia documented in this encounter [facility] note* Diagnosis Atrial fibrillation, unspecified type (HCC)- Primary BENIGN HYPERTENSION Essential hypertension, benign Mixed hyperlipidemia GERD without esophagitis Esophageal reflux Gout involving toe of right foot, unspecified cause, unspecified chronicity documented in this encounter [facility] note* Diagnosis PAF (paroxysmal atrial fibrillation) (HCC)- Primary Atrial fibrillation Atrial fibrillation, unspecified type (HCC) Cardiomyopathy, ischemic Other specified forms of chronic ischemic heart disease PAD (peripheral artery disease) (HCC) Peripheral vascular disease, unspecified Mixed hyperlipidemia Coronary artery disease involving [place] coronary artery of [place] heart without angina pectoris S/P drug eluting coronary stent placement Postsurgical percutaneous transluminal coronary angioplasty status documented in this encounter [facility] note* Diagnosis Persistent atrial fibrillation (HCC)- Primary Atrial fibrillation Dyspnea, unspecified type documented in this [facility] [place] [facility]* Diagnosis BENIGN HYPERTENSION- Primary Essential hypertension, benign GERD without esophagitis Esophageal reflux Mixed hyperlipidemia PAD (peripheral artery disease) (HCC) Peripheral vascular disease, unspecified Atrial fibrillation, unspecified type (HCC) Cardiomyopathy, ischemic Other specified forms of chronic ischemic heart disease Ischemic cardiomyopathy Other specified forms of chronic ischemic heart disease documented [facility] [place] [facility]* Diagnosis Paroxysmal atrial fibrillation (HCC)- Primary Atrial fibrillation Excessive daytime sleepiness documented in this [facility] [place] [facility]* Diagnosis Status post catheter ablation of atrial fibrillation documented [facility] this 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 [place] [facility]* Diagnosis Persistent atrial fibrillation (HCC) Atrial fibrillation Dyspnea, unspecified type [facility] [place] [facility]* Diagnosis Rash- Primary Rash and other nonspecific skin eruption Acute gout involving toe of right foot, unspecified cause documented [facility] encounter [facility] [place] [facility]* Diagnosis Pain with swallowing- Primary Dysphagia, unspecified History of colonic polyps Personal history of colonic polyps Upper abdominal pain Abdominal pain, other specified site documented [facility] this encounter [facility] [place] [facility]* Diagnosis Paroxysmal atrial fibrillation (HCC)- Primary Atrial fibrillation Dizziness Dizziness and giddiness Tinnitus, unspecified laterality Bilateral impacted cerumen Impacted cerumen Tenderness of neck documented [facility] this encounter [facility] [place] [facility]* Diagnosis Acute idiopathic gout, unspecified site Pain in right foot Pain in limb documented in this [facility] [place] [facility]* Diagnosis Enlarged thyroid Goiter, unspecified Tenderness of neck documented [facility] [place] [facility]* Diagnosis Enlarged thyroid Goiter, unspecified documented [facility] [place] [facility]* Diagnosis GERD without esophagitis- Primary Esophageal reflux [facility] [place] [facility]* Diagnosis Dizziness Dizziness and giddiness Tinnitus, unspecified laterality documented [facility] this [facility] [place] [facility]* Diagnosis Other dysphagia- Primary Pain with swallowing Dysphagia, unspecified [facility] [place] [facility]* Diagnosis Paroxysmal atrial fibrillation (HCC)- Primary Atrial fibrillation Cardiomyopathy, unspecified type (HCC) Coronary artery disease involving [place] coronary artery of [place] heart with angina pectoris (HCC) Mixed hyperlipidemia BENIGN HYPERTENSION Essential hypertension, benign Status post ablation of atrial flutter Other postprocedural status documented in this encounter [facility] for referral (narrative)* Diagnostic Procedure Only (Routine) - Authorized Specialty Diagnoses / Procedures Referred By Contac t Referred To Contact XR IMAGING Diagnoses Pain Procedures XR FOOT GENERAL 3V AP/LAT/OBL RIGHT RADEX FOOT COMPLETE MINIMUM 3 VIEWS Karina Cline [address] [place] [address] Xr Imaging Referral ID Status Reason Start Date Expiration Date Visits Requested Visits Authorized [id number] Authorized Auto-Generat ed Referral 11/16/2021 12/16/2022 1 1 [facility] for referral (narrative)* Diagnostic Procedure Only (Routine) - Closed Specialty Diagnoses / Procedures Referred By Contac t Referred To Contact XR IMAGING Diagnoses Pain Procedures XR FOOT GENERAL 3V AP/LAT/OBL RIGHT RADEX FOOT COMPLETE MINIMUM 3 VIEWS Karina Cline[address] [place] [address] Xr Imaging Referral ID Status Reason Start Date Expiration Date V isits Requested Visits Authorized [id number] Closed Auto-Generate d Referral 11/16/2021 12/16/2022 1 1 [facility] for referral (narrative)* Diagnostic Procedure Only (Routine) - Pending Review Specialty Diagnoses / Procedures Referred By Contac t Referred To Contact XR IMAGING Diagnoses Pain in left foot Procedures XR FOOT GENERAL 3V AP/LAT/OBL LEFT RADEX FOOT COMPLETE MINIMUM 3 VIEWS Karina [address]line[address] [place] [address] Xr Imaging Referral ID Status Reason Start Date Expiration Date Visits Requested Visits Authorized [id number] Pending Review Auto-Generat ed Referral 04/16/2022 05/16/2023 1 1 [facility] for referral (narrative)* Diagnostic Procedure Only (Routine) - Closed Specialty Diagnoses / Procedures Referred By Contac t Referred To Contact XR IMAGING Diagnoses Pain in left foot Procedures XR FOOT GENERAL 3V AP/LAT/OBL LEFT RADEX FOOT COMPLETE MINIMUM 3 VIEWS Karina Cline [address] [place] [address] Xr Imaging Referral ID Status Reason Start Date Expiration Date V isits Requested Visits Authorized [id number] Closed Auto-Generate d Referral 04/16/2022 05/16/2023 1 1 [facility] for referral (narrative)* Diagnostic Procedure Only (Routine) - Authorized Specialty Diagnoses / Procedures Referred By Contac t Referred To Contact US IMAGING Diagnoses Enlarged thyroid Procedures US THYROID/PARATHYROID US SOFT TISSUE HEAD & NECK REAL TIME IMGE Ruth Gonzalez APRN.FLATBED PRESS OPERATOR [address] [place] [address] Us Imaging Referral ID Status Reason Start Date Expiration Date Visits Requested Visits Authorized [id number] Authorized Auto-Generat ed Referral 07/21/2022 08/20/2023 1 1 [facility] for referral (narrative)* Diagnostic Procedure Only (Urgent) - Pending Review Specialty Diagnoses / Procedures Referred By Contac t Referred To Contact XR IMAGING Diagnoses Toe swelling Procedures XR FOOT GENERAL 3V AP/LAT/OBL RIGHT RADEX FOOT COMPLETE MINIMUM 3 VIEWS Royce Rivera APRN.CNP [address] [place] [address] Xr Imaging Referral ID Status Reason Start Date Expiration Date Visits Requested Visits Authorized [id number] Pending Review Auto-Generat ed Referral 08/01/2022 08/31/2023 1 1 [facility] for referral (narrative)* Diagnostic Procedure Only (Routine) - Pending Review Specialty Diagnoses / Procedures Referred By Contac t Referred To Contact MOLECULAR & FUNCTIONAL IMAGING Diagnoses Atrial fibrillation, unspecified type (HCC) Shortness of breath Procedures NM CARDIAC PERF STRESS/PHARM MYOCARDIAL SPECT MULTIPLE STUDIES Ruth Perez APRN.FLATBED PRESS OPERATOR [address] [place] [address] Molecular & Functional Imaging [address] [place] [address] Referral ID Status Reason Start Date Expiration Date Visits Requested Visits Authorized [id number] Pending Review Auto-Generat ed Referral 09/06/2022 10/06/2023 1 1 [facility] for referral (narrative)* Diagnostic Procedure Only (Urgent) - Closed Specialty Diagnoses / Procedures [facility] To Contact XR IMAG[facility] Diagnoses Pain Procedures XR FOOT GENERAL 3V AP/LAT/OBL LEFT RADEX FOOT COMPLETE MINIMUM 3 VIEWS Josiah Christopher APRN.FLATBED PRESS OPERATOR [address] [place] [address] Xr Imaging Referral ID Status Reason Start Date Expiration Date V isits Requested Visits Authorized [id number] Closed Auto-Generate d Referral 09/27/2022 10/27/2023 1 1 [facility] for referral (narrative)* Diagnostic Procedure Only (Routine) - Closed Specialty Diagnoses / Procedures Referred By Contac t Referred To Contact XR IMAGING Diagnoses Acute gout involving toe of left foot, unspecified cause Pain in left foot Procedures XR FOOT GENERAL 3V AP/LAT/OBL LEFT RADEX FOOT COMPLETE MINIMUM 3 VIEWS Karina Cline [address] [place] [address] Xr Imaging Referral ID Status Reason Start Date Expiration Date V isits Requested Visits Authorized [id number] Closed Auto-Generate d Referral 10/11/2022 11/10/2023 1 1 [facility] for referral (narrative)* Outpatient Procedure (Routine) - Closed Specialty Diagnoses / Procedures Referred By Contac t Referred To Contact [facility] Diagnoses Persistent atrial fibrillation (HCC) Dyspnea, unspecified type Procedures ECHO ECHO TTHRC R-T 2D W/WOM-MODE COMPL SPEC&COLR Sunny Arce MD [address] [place] [address] [facility] [place] [address] [facility] [address] Referral ID Status Reason Start Date Expiration Date V isits Requested Visits Authorized [id number] Closed Auto-Generate d Referral 03/22/2023 12/30/2023 1 1 [facility] for referral (narrative)* Diagnostic Procedure Only (Routine) - Closed Specialty Diagnoses / Procedures Referred By Contac t Referred To Contact XR IMAGING Diagnoses Acute idiopathic gout, unspecified site Pain in right foot Procedures XR FOOT GENERAL 3V AP/LAT/OBL RIGHT RADEX FOOT COMPLETE MINIMUM 3 VIEWS Karina Cline [address] [place] [address] [place] [address] Referral ID Status Reason Start Date Expiration Date V isits Requested Visits Authorized [id number] Closed Auto-Generate d Referral 11/03/2022 12/03/2023 1 1 [facility] for referral (narrative)* Diagnostic Procedure Only (Routine) - Closed Specialty Diagnoses / Procedures Referred By Contac t Referred To Contact US IMAGING Diagnoses Tenderness of neck Procedures US HEAD/NECK SOFT TISSUE OTHER US SOFT TISSUE HEAD & NECK REAL TIME IMGE Ruth Gonzalez APRN.FLATBED PRESS OPERATOR [address] [place] [address] [place] [address] Referral ID Status Reason Start Date Expiration Date V isits Requested Visits Authorized [id number] Closed Auto-Generate d Referral 04/06/2023 05/05/2024 1 1 * Diagnostic Procedure Only (Routine) - Closed Specialty Diagnoses / Procedures Referred By Contac t Referred To Contact US IMAGING Diagnoses Enlarged thyroid Procedures US THYROID/PARATHYROID US SOFT TISSUE HEAD & NECK REAL TIME IMGE Ruth Gonzalez APRN.FLATBED PRESS OPERATOR [address] [place] [address] [place] [address] Referral ID Status Reason Start Date Expiration Date V isits Requested Visits Authorized [id number] Closed Auto-Generate d Referral 04/06/2023 05/05/2024 1 1 [facility] for referral (narrative)* Diagnostic Procedure Only (Routine) - Closed Specialty Diagnoses / Procedures Referred By Contac t Referred To Contact US IMAGING Diagnoses Enlarged thyroid Procedures US THYROID/PARATHYROID US SOFT TISSUE HEAD & NECK REAL TIME IMGE Ruth Gonzalez APRN.FLATBED PRESS OPERATOR [address] [place] [address] [place] [address] Referral ID Status Reason Start Date Expiration Date V isits Requested Visits Authorized [id number] Closed Auto-Generate d Referral 07/21/2022 08/20/2023 1 1 [facility] for visit Narrative* Diagnostic Procedure Only (Routine) - Closed Specialty Diagnoses / Procedures Referred By Contac t Referred To Contact XR IMAGING Diagnoses Pain Procedures XR FOOT GENERAL 3V AP/LAT/OBL RIGHT RADEX FOOT COMPLETE MINIMUM 3 VIEWS Karina Cline [address] [place] [address] Xr Imaging Referral ID Status Reason Start Date Expiration Date V isits Requested Visits Authorized [id number] Closed Auto-Generate d Referral 11/16/2021 12/16/2022 1 1 [facility] for visit Narrative* Diagnostic Procedure Only (Routine) - Closed Specialty Diagnoses / Procedures Referred By Contac t Referred To Contact XR IMAGING Diagnoses Pain in left foot Procedures XR FOOT GENERAL 3V AP/LAT/OBL LEFT RADEX FOOT COMPLETE MINIMUM 3 VIEWS Karina Cline [address] [place] [address] Xr Imaging Referral ID Status Reason Start Date Expiration Date V isits Requested Visits Authorized [id number] Closed Auto-Generate d Referral 04/16/2022 05/16/2023 1 1 [facility] for visit Narrative* Outpatient Procedure (Routine) - Closed Specialty Diagnoses / Procedures Referred By Contac t Referred To Contact [facility] Diagnoses Persistent atrial fibrillation (HCC) Dyspnea, unspecified type Procedures ECHO ECHO TTHRC R-T 2D W/WOM-MODE COMPL SPEC&COLR D Sunny Walker MD [address] [place] [id number] [facility] [place] [address] [place] [address] Referral ID Status Reason Start Date Expiration Date V isits Requested Visits Authorized [id number] Closed Auto-Generate d Referral 03/22/2023 12/30/2023 1 1 [facility] for visit Narrative* Diagnostic Procedure Only (Routine) - Closed Specialty Diagnoses / Procedures Referred By Contac t Referred To Contact XR IMAGING Diagnoses Acute idiopathic gout, unspecified site Pain in right foot Procedures XR FOOT GENERAL 3V AP/LAT/OBL RIGHT RADEX FOOT COMPLETE MINIMUM 3 VIEWS Karina Cline [address] [place] [address] [place] [address] Referral ID Status Reason Start Date Expiration Date V isits Requested Visits Authorized [id number] Closed Auto-Generate d Referral 11/03/2022 12/03/2023 1 1 [facility] Summary Purpose Family History No Family History Records FoundThere may be information available, but it has not been provided by the sender.No Family History Records FoundNo Family History Records FoundNo Family History Records FoundNo Family History Records Found Advance Directives No Advanced Directives Records FoundDocuments on File Type Date Recorded 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 Advance Directive(s) 12/01/2020 9:29 AM Advance Directive(s) 12/01/2020 9:32 AM Advance Directive(s) 11/13/2020 10:53 AM Advance Directive(s) 09/08/2016 6:36 AM Documents on File Type Date Recorded 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 Review of System There may be information available, but it has not been provided by the sender. History of Present Illness There may be information available, but it has not been provided by the sender. Medications Administered Section Inactive Administered Medications - up to 3 most recent administrations Medication Order MAR Action Action Date Dose Rate Site bupivacaine (PF) 0.5 % (5 mg/mL) 2.5 mg injection 2.5 mg (0.5 mL), INTRA-ARTICULAR, ONCE, 1 dose, On Tue11/25/21 at 0800 Given 11/25/2021 7:51 AM EDT 2.5 mg Foot, Right dexAMETHasone sodium phosphate 2 mg injection (DECADRON) 2 mg, INTRA-ARTICULAR, ONCE, 1 dose, On Tue11/25/21 at 0800 Given 11/25/2021 7:52 AM EDT 2 mg Fo ot, Right triamcinolone acetonide 5 mg injection (KeNALog 10) 5 mg, INTRA-ARTICULAR, ONCE, 1 dose, On Tue11/25/21 at 0800 Given 11/25/2021 7:53 AM EDT 5 mg Fo ot, Right Inactive Administered Medications - up to 3 most recent administrations Medication Order MAR Action Action Date Dose Rate Site bupivacaine (PF) 0.5 % (5 mg/mL) 2.5 mg injection 2.5 mg (0.5 mL), INTRA-ARTICULAR, ONCE, 1 dose, On Tue04/22/22 at 0830 Given 04/20/2022 8:01 AM EDT 2.5 mg Foot, Left dexAMETHasone sodium phosphate 2 mg injection (DECADRON) 2 mg, INTRA-ARTICULAR, ONCE, 1 dose, On 04/22/22 at 0830 Given 04/20/2022 8:01 AM EDT 2 mg Foot, Left triamcinolone acetonide 5 mg injection (KeNALog 10) 5 mg, INTRA-ARTICULAR, ONCE, 1 dose, On Ellen 04/22/22 at 0830 Given 04/20/2022 8:02 AM EDT 5 mg Foot, Left Inactive Administered Medications - up to 3 most recent administrations Medication Order MAR Action Action Date Dose Rate Site BUPivacaine (PF) 0.5 % (5 mg/mL) 2.5 mg injection 2.5 mg (0.5 mL), INTRA-ARTICULAR, ONCE, 1 dose, On Tue10/25/22 at 1330 Given 10/25/2022 1:45 PM EDT 2.5 mg Foot, Left dexAMETHasone sodium phosphate 2 mg injection (DECADRON) 2 mg, INTRA-ARTICULAR, ONCE, 1 dose, On Tue10/25/22 at 1330 Given 10/25/2022 1:45 PM EDT 2 mg Foot, Left triamcinolone acetonide 5 mg injection (KeNALog 10) 5 mg, INTRA-ARTICULAR, ONCE, 1 dose, On Tue10/25/22 at 1330 Given 10/25/2022 1:46 PM EDT 5 mg Foot, Left Reason for Referral Specialty Diagnoses / Procedures Referred By Nupur t Referred To Contact General Surgery Diagnoses Pain with swallowing Procedures CONSULT TO GENERAL SURGERY OFFICE/OUTPATIENT [facility] 60-74 MINUTES Ruth Perez APRN.FLATBED PRESS OPERATOR [address] [place] [address] Referral ID Status Reason Start Date Expiration Date Visits Requested Visits Authorized [id number] Pending Review PCP Requested Referral 07/29/2022 07/29/2023 1 1 Specialty Diagnoses / Procedures Referred By Nupur t Referred To Contact CT IMAGING Diagnoses Persistent atrial fibrillation (HCC) Dyspnea, unspecified type Procedures CTA CHEST (NONGATED) W IVCON CT ANGIOGRAPHY CHEST W/CONTRAST/NONCONTRAST Sunny Walker MD [address] [place] [address] Ct Imaging Referral ID Status Reason Start Date Expiration Date Visits Requested Visits Authorized [id number] Authorized Auto-Generat ed Referral 03/22/2023 01/29/2024 1 1 Specialty Diagnoses / Procedures Referred By Contac t Referred [facility] Diagnoses Persistent atrial fibrillation (HCC) Dyspnea, unspecified type Procedures ECHO ECHO TTHRC R-T 2D W/WOM-MODE COMPL SPEC&COLR D Sunny Walker MD [address] [place] [address] [facility] [address] [place] [address] Referral ID Status Reason Start Date Expiration Date Visits Requested Visits Authorized [id number] Authorized Auto-Generat ed Referral 03/22/2023 12/30/2023 1 1 Specialty Diagnoses / Procedures Referred By Contac t Referred To Contact CT IMAGING Diagnoses Dizziness Tinnitus, unspecified laterality Procedures CTA NECK W IVCON CT ANGIOGRAPHY NECK W/CONTRAST/NONCONTRAST Ruth Perez, PROTECTION MGR.FLATBED PRESS OPERATOR [address] [place] [address] [place] [address] Referral ID Status Reason Start Date Expiration Date Visits Requested Visits Authorized [id number] Authorized Auto-Generat ed Referral 06/07/2024 1 1 Specialty Diagnoses / Procedures Referred By Contac t Referred To Contact CT IMAGING Diagnoses Dizziness Tinnitus, unspecified laterality Procedures CTA HEAD WO/W IVCON CT ANGIOGRAPHY HEAD W/CONTRAST/NONCONTRAST Ruth Perez, PROTECTION MGR.FLATBED PRESS OPERATOR [address] [place] [address] [place] [address] Referral ID Status Reason Start Date Expiration Date Visits Requested Visits Authorized [id number] Authorized Auto-Generat ed Referral 06/07/2024 1 1 Referral ID Status Reason Start Date Expiration Date V isits Requested Visits Authorized [id number] Closed Auto-Generate d Referral 05/09/2023 06/07/2024 1 1 Referral ID Status Reason Start Date Expiration Date V isits Requested Visits Authorized [id number] Closed Auto-Generate d Referral 05/09/2023 06/07/2024 1 1 Additional Source Comments (unrecognized sect ion and content) No Status Records FoundNo Status Records FoundNo Status Records FoundNo Status Records FoundNo Status Records Found INFORMATION SOURCE (unrecogn ized section and content) DATE CREATED AUTHOR AUTHOR'S ORGANIZ ATION 10/20/2022 [facility] DATE CREATED AUTHOR AUTHOR'S ORGANIZ ATION 05/24/2023 [facility] DATE CREATED AUTHOR AUTHOR'S ORGANIZ ATION 06/24/2023 [facility] DATE CREATED AUTHOR AUTHOR'S ORGANIZ ATION 07/24/2023 [facility] Reason for Visit (unrecogniz ed section and content) Reason Onset Date Comments Refill Request 10/15/2021 Reason Comments Refill Request Reason Comments Follow Up Pain Toe Injury Reason Comments Acute Visit cramping in calves Reason Comments Results Labs Reason Comments Appointment Reason Onset Date Comments Refill Request Refill Request 03/01/2022 Reason Comments Carotid artery stenosis Shelton is former Dr. Dean pt here to review 02/05/22 Reason Onset Date Comments Refill Request 03/06/2022 Reason Onset Date Comments Refill Request 04/11/2022 Reason Comments Cough Chest congestion, x1 wk, denied SOB, chest pain. Reason Comments Patient Question Reason Comments Follow Up Bunion Reason Onset Date Comments Follow Up Immunizations 04/28/2022 Flu vaccination Reason Comments Dizziness Reason Comments Acute Visit dizziness Reason Comments Acute Visit question about throa t, and coughing Reason Comments Pain Pt reported (RT) toe pain, denied injury pain, swelling , x1 day. Reason Comments Acute Visit Gout right great toe Reason Comments Results Labs Reason Comments Cough Reason Comments Orders Reason Comments Results Echo Reason Comments Need new order for stress test Reason Onset Date Comments Refill Request 09/14/2022 Reason Comments Gout Flare Reason Comments Pain (foot) L foot x1.5 days Reason Comments Established Patient Follow Up Pain Swelling Reason Comments Medication Problem Pharmacy issue Reason Comments Follow Up Pain Swelling Reason Comments 6 Month Exam Reason Comments patient update/requesting medication ph. [id number] Reason Comments Patient Update Patient Question Reason Comments New Patient Ref [facility] for a-fib discuss ablation Reason Comments Preparations For Procedures Reason Comments Orders Reason Comments Wellness Reason Comments Appointment Annual f/up with rupal ting BRIANNA Reason Comments Patient Update Head pain and blurre d vision Reason Comments [facility] Reason Comments CARD Follow Up 3 Month S/p PVI Specialty Diagnoses / Procedures Referred By Contac t Referred To Contact CT IMAGING Diagnoses Persistent atrial fibrillation (HCC) Dyspnea, unspecified type Procedures CTA CHEST (NONGATED) W IVCON CT ANGIOGRAPHY CHEST W/CONTRAST/NONCONTRAST Sunny Walker MD [address] [place] [address] [place] [address] Referral ID Status Reason Start Date Expiration Date V isits Requested Visits Authorized [id number] Closed Auto-Generate d Referral 03/22/2023 01/29/2024 1 1 Reason Comments Rash Rash on ankle and sw ollen toe right foot Reason Comments Consult EGD, pain with swall owing, 04/13/2023 [facility] Specialty Diagnoses / Procedures Referred By Contac t Referred To Contact General Surgery Diagnoses Pain with swallowing Procedures CONSULT TO GENERAL SURGERY OFFICE/OUTPATIENT [facility] 60-74 MINUTES Ruth Perez APRN.FLATBED PRESS OPERATOR [address] [place] [address] Referral ID Status Reason Start Date Expiration Date Visits Requested Visits Authorized [id number] Pending Review PCP Requested Referral 07/29/2022 07/29/2023 1 1 Reason Comments Acute Visit continued dizziness, neck ear pain, tinnitis Reason Comments GIPRE OP CALL Reason Comments Radiology US Specialty Diagnoses / Procedures Referred By Contac t Referred To Contact US IMAGING Diagnoses Enlarged thyroid Procedures US THYROID/PARATHYROID US SOFT TISSUE HEAD & NECK REAL TIME IMGE DOCM Ruth Perez, [place].FLATBED PRESS OPERATOR [address] [place] [address] [place] [address] Referral ID Status Reason Start Date Expiration Date V isits Requested Visits Authorized [id number] Closed Auto-Generate d Referral 04/06/2023 05/05/2024 1 1 Reason Comments Radiology US Referral ID Status Reason Start Date Expiration Date V isits Requested Visits Authorized [id number] Closed Auto-Generate d Referral 07/21/2022 08/20/2023 1 1 Reason Comments Patient Question Questions regarding results Reason Comments Radiology CT Specialty Diagnoses / Procedures Referred By Contac t Referred To Contact CT IMAGING Diagnoses Dizziness Tinnitus, unspecified laterality Procedures CTA NECK W IVCON CT ANGIOGRAPHY NECK W/CONTRAST/NONCONTRAST Ruth Perez, AL.FLATBED PRESS OPERATOR [address] [place] [address] [place] [address] Referral ID Status Reason Start Date Expiration Date V isits Requested Visits Authorized [id number] Closed Auto-Generate d Referral 05/09/2023 06/07/2024 [address] Head/Neck Reason Comments Follow Up colonoscopy Reason Comments CARD Follow Up 3 Month Paroxysmal atrial fibrillation Source Comments (unrecognize d section and content) In the event this informatio n is protected by the Federal Confidentiality of Alcohol and Drug Abuse Patient Records regulations: The Federal rules restrict any use of the information to criminally investigate or prosecute any alcohol or drug abuse patient.[facility] AdministrationIn the event this information is protected by the Federal Confidentiality of Alcohol and Drug Abuse Patient Records regulations: The Federal rules restrict any use of the information to criminally investigate or prosecute any alcohol or drug abuse patient.[facility] AdministrationIn the event this information is protected by the Federal Confidentiality of Alcohol and Drug Abuse Patient Records regulations: The Federal rules restrict any use of the information to criminally investigate or prosecute any alcohol or drug abuse patient.[facility] AdministrationIn the event this information is protected by the Federal Confidentiality of Alcohol and Drug Abuse Patient Records regulations: The Federal rules restrict any use of the information to criminally investigate or prosecute any alcohol or drug abuse patient.[facility] the event this information is protected by the Federal Confidentiality of Alcohol and Drug Abuse Patient Records regulations: The Federal rules restrict any use of the information to criminally investigate or prosecute any alcohol or drug abuse patient.[facility] AdministrationIn the event this information is protected by the Federal Confidentiality of Alcohol and Drug Abuse Patient Records regulations: The Federal rules restrict any use of the information to criminally investigate or prosecute any alcohol or drug abuse patient.[facility] AdministrationIn the event this information is protected by the Federal Confidentiality of Alcohol and Drug Abuse Patient Records regulations: The Federal rules restrict any use of the information to criminally investigate or prosecute any alcohol or drug abuse patient.[facility] the event this information is protected by the Federal Confidentiality of Alcohol and Drug Abuse Patient Records regulations: The Federal rules restrict any use of the information to criminally investigate or prosecute any alcohol or drug abuse patient.[facility] AdministrationIn the event this information is protected by the Federal Confidentiality of Alcohol and Drug Abuse Patient Records regulations: The Federal rules restrict any use of the information to criminally investigate or prosecute any alcohol or drug abuse patient.[facility] AdministrationIn the event this information is protected by the Federal Confidentiality of Alcohol and Drug Abuse Patient Records regulations: The Federal rules restrict any use of the information to criminally investigate or prosecute any alcohol or drug abuse patient.[facility] AdministrationIn the event this information is protected by the Federal Confidentiality of Alcohol and Drug Abuse Patient Records regulations: The Federal rules restrict any use of the information to criminally investigate or prosecute any alcohol or drug abuse patient.[facility] AdministrationIn the event this information is protected by the Federal Confidentiality of Alcohol and Drug Abuse Patient Records regulations: The Federal rules restrict any use of the information to criminally investigate or prosecute any alcohol or drug abuse patient.[facility] AdministrationIn the event this information is protected by the Federal Confidentiality of Alcohol and Drug Abuse Patient Records regulations: The Federal rules restrict any use of the information to criminally investigate or prosecute any alcohol or drug abuse patient.[facility] AdministrationIn the event this information is protected by the Federal Confidentiality of Alcohol and Drug Abuse Patient Records regulations: The Federal rules restrict any use of the information to criminally investigate or prosecute any alcohol or drug abuse patient.[facility] AdministrationIn the event this information is protected by the Federal Confidentiality of Alcohol and Drug Abuse Patient Records regulations: The Federal rules restrict any use of the information to criminally investigate or prosecute any alcohol or drug abuse patient.[facility] AdministrationIn the event this information is protected by the Federal Confidentiality of Alcohol and Drug Abuse Patient Records regulations: The Federal rules restrict any use of the information to criminally investigate or prosecute any alcohol or drug abuse patient.[facility] AdministrationIn the event this information is protected by the Federal Confidentiality of Alcohol and Drug Abuse Patient Records regulations: The Federal rules restrict any use of the information to criminally investigate or prosecute any alcohol or drug abuse patient.[facility] AdministrationIn the event this information is protected by the Federal Confidentiality of Alcohol and Drug Abuse Patient Records regulations: The Federal rules restrict any use of the information to criminally investigate or prosecute any alcohol or drug abuse patient.[facility] AdministrationIn the event this information is protected by the Federal Confidentiality of Alcohol and Drug Abuse Patient Records regulations: The Federal rules restrict any use of the information to criminally investigate or prosecute any alcohol or drug abuse patient.[facility] AdministrationIn the event this information is protected by the Federal Confidentiality of Alcohol and Drug Abuse Patient Records regulations: The Federal rules restrict any use of the information to criminally investigate or prosecute any alcohol or drug abuse patient.[facility] AdministrationIn the event this information is protected by the Federal Confidentiality of Alcohol and Drug Abuse Patient Records regulations: The Federal rules restrict any use of the information to criminally investigate or prosecute any alcohol or drug abuse patient.[facility] AdministrationIn the event this information is protected by the Federal Confidentiality of Alcohol and Drug Abuse Patient Records regulations: The Federal rules restrict any use of the information to criminally investigate or prosecute any alcohol or drug abuse patient.[facility] AdministrationIn the event this information is protected by the Federal Confidentiality of Alcohol and Drug Abuse Patient Records regulations: The Federal rules restrict any use of the information to criminally investigate or prosecute any alcohol or drug abuse patient.[facility] AdministrationIn the event this information is protected by the Federal Confidentiality of Alcohol and Drug Abuse Patient Records regulations: The Federal rules restrict any use of the information to criminally investigate or prosecute any alcohol or drug abuse patient.[facility] AdministrationIn the event this information is protected by the Federal Confidentiality of Alcohol and Drug Abuse Patient Records regulations: The Federal rules restrict any use of the information to criminally investigate or prosecute any alcohol or drug abuse patient.[facility] AdministrationIn the event this information is protected by the Federal Confidentiality of Alcohol and Drug Abuse Patient Records regulations: The Federal rules restrict any use of the information to criminally investigate or prosecute any alcohol or drug abuse patient.[facility] AdministrationIn the event this information is protected by the Federal Confidentiality of Alcohol and Drug Abuse Patient Records regulations: The Federal rules restrict any use of the information to criminally investigate or prosecute any alcohol or drug abuse patient.[facility] AdministrationIn the event this information is protected by the Federal Confidentiality of Alcohol and Drug Abuse Patient Records regulations: The Federal rules restrict any use of the information to criminally investigate or prosecute any alcohol or drug abuse patient.[facility] AdministrationIn the event this information is protected by the Federal Confidentiality of Alcohol and Drug Abuse Patient Records regulations: The Federal rules restrict any use of the information to criminally investigate or prosecute any alcohol or drug abuse patient.[facility] AdministrationIn the event this information is protected by the Federal Confidentiality of Alcohol and Drug Abuse Patient Records regulations: The Federal rules restrict any use of the information to criminally investigate or prosecute any alcohol or drug abuse patient.[facility] AdministrationIn the event this information is protected by the Federal Confidentiality of Alcohol and Drug Abuse Patient Records regulations: The Federal rules restrict any use of the information to criminally investigate or prosecute any alcohol or drug abuse patient.[facility] AdministrationIn the event this information is protected by the Federal Confidentiality of Alcohol and Drug Abuse Patient Records regulations: The Federal rules restrict any use of the information to criminally investigate or prosecute any alcohol or drug abuse patient.[facility] AdministrationIn the event this information is protected by the Federal Confidentiality of Alcohol and Drug Abuse Patient Records regulations: The Federal rules restrict any use of the information to criminally investigate or prosecute any alcohol or drug abuse patient.[facility] AdministrationIn the event this information is protected by the Federal Confidentiality of Alcohol and Drug Abuse Patient Records regulations: The Federal rules restrict any use of the information to criminally investigate or prosecute any alcohol or drug abuse patient.[facility] AdministrationIn the event this information is protected by the Federal Confidentiality of Alcohol and Drug Abuse Patient Records regulations: The Federal rules restrict any use of the information to criminally investigate or prosecute any alcohol or drug abuse patient.[facility] AdministrationIn the event this information is protected by the Federal Confidentiality of Alcohol and Drug Abuse Patient Records regulations: The Federal rules restrict any use of the information to criminally investigate or prosecute any alcohol or drug abuse patient.[facility] AdministrationIn the event this information is protected by the Federal Confidentiality of Alcohol and Drug Abuse Patient Records regulations: The Federal rules restrict any use of the information to criminally investigate or prosecute any alcohol or drug abuse patient.[facility] AdministrationIn the event this information is protected by the Federal Confidentiality of Alcohol and Drug Abuse Patient Records regulations: The Federal rules restrict any use of the information to criminally investigate or prosecute any alcohol or drug abuse patient.[facility] AdministrationIn the event this information is protected by the Federal Confidentiality of Alcohol and Drug Abuse Patient Records regulations: The Federal rules restrict any use of the information to criminally investigate or prosecute any alcohol or drug abuse patient.[facility] AdministrationIn the event this information is protected by the Federal Confidentiality of Alcohol and Drug Abuse Patient Records regulations: The Federal rules restrict any use of the information to criminally investigate or prosecute any alcohol or drug abuse patient.[facility] AdministrationIn the event this information is protected by the Federal Confidentiality of Alcohol and Drug Abuse Patient Records regulations: The Federal rules restrict any use of the information to criminally investigate or prosecute any alcohol or drug abuse patient.[facility] AdministrationIn the event this information is protected by the Federal Confidentiality of Alcohol and Drug Abuse Patient Records regulations: The Federal rules restrict any use of the information to criminally investigate or prosecute any alcohol or drug abuse patient.[facility] AdministrationIn the event this information is protected by the Federal Confidentiality of Alcohol and Drug Abuse Patient Records regulations: The Federal rules restrict any use of the information to criminally investigate or prosecute any alcohol or drug abuse patient.[facility] AdministrationIn the event this information is protected by the Federal Confidentiality of Alcohol and Drug Abuse Patient Records regulations: The Federal rules restrict any use of the information to criminally investigate or prosecute any alcohol or drug abuse patient.[facility] AdministrationIn the event this information is protected by the Federal Confidentiality of Alcohol and Drug Abuse Patient Records regulations: The Federal rules restrict any use of the information to criminally investigate or prosecute any alcohol or drug abuse patient.[facility] AdministrationIn the event this information is protected by the Federal Confidentiality of Alcohol and Drug Abuse Patient Records regulations: The Federal rules restrict any use of the information to criminally investigate or prosecute any alcohol or drug abuse patient.[facility] AdministrationIn the event this information is protected by the Federal Confidentiality of Alcohol and Drug Abuse Patient Records regulations: The Federal rules restrict any use of the information to criminally investigate or prosecute any alcohol or drug abuse patient.[facility] AdministrationIn the event this information is protected by the Federal Confidentiality of Alcohol and Drug Abuse Patient Records regulations: The Federal rules restrict any use of the information to criminally investigate or prosecute any alcohol or drug abuse patient.[facility] AdministrationIn the event this information is protected by the Federal Confidentiality of Alcohol and Drug Abuse Patient Records regulations: The Federal rules restrict any use of the information to criminally investigate or prosecute any alcohol or drug abuse patient.[facility] AdministrationIn the event this information is protected by the Federal Confidentiality of Alcohol and Drug Abuse Patient Records regulations: The Federal rules restrict any use of the information to criminally investigate or prosecute any alcohol or drug abuse patient.[facility] AdministrationIn the event this information is protected by the Federal Confidentiality of Alcohol and Drug Abuse Patient Records regulations: The Federal rules restrict any use of the information to criminally investigate or prosecute any alcohol or drug abuse patient.[facility] AdministrationIn the event this information is protected by the Federal Confidentiality of Alcohol and Drug Abuse Patient Records regulations: The Federal rules restrict any use of the information to criminally investigate or prosecute any alcohol or drug abuse patient.[facility] AdministrationIn the event this information is protected by the Federal Confidentiality of Alcohol and Drug Abuse Patient Records regulations: The Federal rules restrict any use of the information to criminally investigate or prosecute any alcohol or drug abuse patient.[facility] AdministrationIn the event this information is protected by the Federal Confidentiality of Alcohol and Drug Abuse Patient Records regulations: The Federal rules restrict any use of the information to criminally investigate or prosecute any alcohol or drug abuse patient.[facility] the event this information is protected by the Federal Confidentiality of Alcohol and Drug Abuse Patient Records regulations: The Federal rules restrict any use of the information to criminally investigate or prosecute any alcohol or drug abuse patient.[facility] AdministrationIn the event this information is protected by the Federal Confidentiality of Alcohol and Drug Abuse Patient Records regulations: The Federal rules restrict any use of the information to criminally investigate or prosecute any alcohol or drug abuse patient.[facility] AdministrationIn the event this information is protected by the Federal Confidentiality of Alcohol and Drug Abuse Patient Records regulations: The Federal rules restrict any use of the information to criminally investigate or prosecute any alcohol or drug abuse patient.[facility]In the event this information is protected by the Federal Confidentiality of Alcohol and Drug Abuse Patient Records regulations: The Federal rules restrict any use of the information to criminally investigate or prosecute any alcohol or drug abuse patient.[facility] AdministrationIn the event this information is protected by the Federal Confidentiality of Alcohol and Drug Abuse Patient Records regulations: The Federal rules restrict any use of the information to criminally investigate or prosecute any alcohol or drug abuse patient.[facility] AdministrationIn the event this information is protected by the Federal Confidentiality of Alcohol and Drug Abuse Patient Records regulations: The Federal rules restrict any use of the information to criminally investigate or prosecute any alcohol or drug abuse patient.[facility] AdministrationIn the event this information is protected by the Federal Confidentiality of Alcohol and Drug Abuse Patient Records regulations: The Federal rules restrict any use of the information to criminally investigate or prosecute any alcohol or drug abuse patient.[facility] AdministrationIn the event this information is protected by the Federal Confidentiality of Alcohol and Drug Abuse Patient Records regulations: The Federal rules restrict any use of the information to criminally investigate or prosecute any alcohol or drug abuse patient.[facility] AdministrationIn the event this information is protected by the Federal Confidentiality of Alcohol and Drug Abuse Patient Records regulations: The Federal rules restrict any use of the information to criminally investigate or prosecute any alcohol or drug abuse patient.[facility] AdministrationIn the event this information is protected by the Federal Confidentiality of Alcohol and Drug Abuse Patient Records regulations: The Federal rules restrict any use of the information to criminally investigate or prosecute any alcohol or drug abuse patient.[facility] AdministrationIn the event this information is protected by the Federal Confidentiality of Alcohol and Drug Abuse Patient Records regulations: The Federal rules restrict any use of the information to criminally investigate or prosecute any alcohol or drug abuse patient.[facility] AdministrationIn the event this information is protected by the Federal Confidentiality of Alcohol and Drug Abuse Patient Records regulations: The Federal rules restrict any use of the information to criminally investigate or prosecute any alcohol or drug abuse patient.[facility] AdministrationIn the event this information is protected by the Federal Confidentiality of Alcohol and Drug Abuse Patient Records regulations: The Federal rules restrict any use of the information to criminally investigate or prosecute any alcohol or drug abuse patient.[facility] AdministrationIn the event this information is protected by the Federal Confidentiality of Alcohol and Drug Abuse Patient Records regulations: The Federal rules restrict any use of the information to criminally investigate or prosecute any alcohol or drug abuse patient.[facility] AdministrationIn the event this information is protected by the Federal Confidentiality of Alcohol and Drug Abuse Patient Records regulations: The Federal rules restrict any use of the information to criminally investigate or prosecute any alcohol or drug abuse patient.[facility] AdministrationIn the event this information is protected by the Federal Confidentiality of Alcohol and Drug Abuse Patient Records regulations: The Federal rules restrict any use of the information to criminally investigate or prosecute any alcohol or drug abuse patient.[facility] AdministrationIn the event this information is protected by the Federal Confidentiality of Alcohol and Drug Abuse Patient Records regulations: The Federal rules restrict any use of the information to criminally investigate or prosecute any alcohol or drug abuse patient.[facility] AdministrationIn the event this information is protected by the Federal Confidentiality of Alcohol and Drug Abuse Patient Records regulations: The Federal rules restrict any use of the information to criminally investigate or prosecute any alcohol or drug abuse patient.[facility] AdministrationIn the event this information is protected by the Federal Confidentiality of Alcohol and Drug Abuse Patient Records regulations: The Federal rules restrict any use of the information to criminally investigate or prosecute any alcohol or drug abuse patient.[facility] AdministrationIn the event this information is protected by the Federal Confidentiality of Alcohol and Drug Abuse Patient Records regulations: The Federal rules restrict any use of the information to criminally investigate or prosecute any alcohol or drug abuse patient.[facility] AdministrationIn the event this information is protected by the Federal Confidentiality of Alcohol and Drug Abuse Patient Records regulations: The Federal rules restrict any use of the information to criminally investigate or prosecute any alcohol or drug abuse patient.[facility] Care Teams (unrecognized sec tion and content) Move Coordinator Relationship Specialty Start Date End Date Federico Vigil MD [address] [place], [place] [id number] PCP - General Family Practice 04/27/17 Move Coordinator Relationship Specialty Start Date End Date Federico Vigil MD [address] [place], [place] [id number] PCP - General Family Practice 04/27/17 Move Coordinator Relationship Specialty Start Date End Date Federico Vigil MD [address] [place] [address] PCP - General Family Practice 04/27/17 Move Coordinator Relationship Specialty Start Date End Date Federico Vigil MD [address] [facility] [place] [address] PCP - General Family Practice 04/27/17 Move Coordinator Relationship Specialty Start Date End Date Federico Vigil MD [address] [facility] [place] [address] PCP - General Family Practice 04/27/17 Move Coordinator Relationship Specialty Start Date End Date Federico Vigil MD [address] [facility] [place] [address] PCP - General Family Practice 04/27/17 Move Coordinator Relationship Specialty Start Date End Date Federico Vigil MD [address] [facility] [place] [address] PCP - General Family Medicine 04/27/17 Move Coordinator Relationship Specialty Start Date End Date Federico Vigil MD [address] [facility] [place] [address] PCP - General Family Medicine 04/27/17 Move Coordinator Relationship Specialty Start Date End Date Federico Vigil MD [address] [facility] [place] [address] PCP - General Family Medicine 04/27/17 Move Coordinator Relationship Specialty Start Date End Date Federico Vigil MD [address] [facility] [place] [address] PCP - General Family Medicine 04/27/17 Move Coordinator Relationship Specialty Start Date End Date Federico Vigil MD [address] [facility] [place] [address] PCP - General Family Medicine 04/27/17 Move Coordinator Relationship Specialty Start Date End Date Federico Vigil MD [address] [facility] [place] [address] PCP - General Family Medicine 04/27/17 Move Coordinator Relationship Specialty Start Date End Date Federico Vigil MD [address] [place] [address] PCP - General Family Medicine 04/27/17 Move Coordinator Relationship Specialty Start Date End Date Federico Vigil MD [address] [facility] [place] [address] PCP - General Family Medicine 04/27/17 Move Coordinator Relationship Specialty Start Date End Date Federico Vigil MD [address] [facility] [place] [address] PCP - General Family Medicine 04/27/17 Move Coordinator Relationship Specialty Start Date End Date Federico Vigil MD [facility] [facility] [place] [address] PCP - General Family Medicine 04/27/17 Move Coordinator Relationship Specialty Start Date End Date Federico Vigil MD [address] [facility] [place] [address] PCP - General Family Medicine 04/27/17 Move Coordinator Relationship Specialty Start Date End Date Federico Vigil MD [address] [facility] [place] [address] PCP - General Family Medicine 04/27/17 Move Coordinator Relationship Specialty Start Date End Date Federico Vigil MD [address] [facility] [place] [address] PCP - General Family Medicine 04/27/17 Move Coordinator Relationship Specialty Start Date End Date Federico Vigil MD [address] [facility] [place] [address] PCP - General Family Medicine 04/27/17 Move Coordinator Relationship Specialty Start Date End Date Federico Vigil MD [address] [facility] [place] [address] PCP - General Family Medicine 04/27/17 Move Coordinator Relationship Specialty Start Date End Date Federico Vigil MD [address] [facility] [place] [address] PCP - General Family Medicine 04/27/17 Move Coordinator Relationship Specialty Start Date End Date Federico Vigil MD [address] [facility] [place] [address] PCP - General Family Medicine 04/27/17 Move Coordinator Relationship Specialty Start Date End Date Federico Vigil MD [address] [facility] [place] [address] PCP - General Family Medicine 04/27/17 Move Coordinator Relationship Specialty Start Date End Date Federico Vigil MD [address] [facility] [place] [address] PCP - General Family Medicine 04/27/17 Move Coordinator Relationship Specialty Start Date End Date Federico Vigil MD [address] [facility] [place] [address] PCP - General Family Medicine 04/27/17 Move Coordinator Relationship Specialty Start Date End Date Federico Vigil MD [address] [facility] [place] [address] PCP - General Family Medicine 04/27/17 Move Coordinator Relationship Specialty Start Date End Date Federico Vigil MD [address] [facility] [place] [address] PCP - General Family Medicine 04/27/17 Move Coordinator Relationship Specialty Start Date End Date Federico Vigil MD [address] [facility] [place] [address] PCP - General Family Medicine 04/27/17 Move Coordinator Relationship Specialty Start Date End Date Federico Vigil MD [address] [facility] [place] [address] PCP - General Family Medicine 04/27/17 Move Coordinator Relationship Specialty Start Date End Date Federico Vigil MD [address] [facility] [place] [address] PCP - General Family Medicine 04/27/17 Move Coordinator Relationship Specialty Start Date End Date Federico Vigil MD [address] [facility] [place] [address] PCP - General Family Medicine 04/27/17 Move Coordinator Relationship Specialty Start Date End Date Federico Vigil MD [address] [facility] [place] [address] PCP - General Family Medicine 04/27/17 Move Coordinator Relationship Specialty Start Date End Date Federico Vigil MD [address] [facility] [place] [address] PCP - General Family Medicine 04/27/17 Move Coordinator Relationship Specialty Start Date End Date Federico Vigil MD [address] [facility] [place] [address] PCP - General Family Medicine 04/27/17 Move Coordinator Relationship Specialty Start Date End Date Federico Vigil MD [address] [facility] [place] [address] PCP - General Family Medicine 04/27/17 Move Coordinator Relationship Specialty Start Date End Date Federico Vigil MD [address] [facility] [place] [address] PCP - General Family Medicine 04/27/17 Move Coordinator Relationship Specialty Start Date End Date Federico Vigil MD [address] [facility] [place] [address] PCP - General Family Medicine 04/27/17 Move Coordinator Relationship Specialty Start Date End Date Federico Vigil MD [address] [place] [address] PCP - General Family Medicine 04/27/17 Move Coordinator Relationship Specialty Start Date End Date Federico Vigil MD [address] [place] [address] PCP - General Family Medicine 04/27/17 Move Coordinator Relationship Specialty Start Date End Date Federico Vigil MD [address] [place] [address] PCP - General Family Medicine 04/27/17 Move Coordinator Relationship Specialty Start Date End Date Federico Vigil MD [address] [facility] [place] [address] PCP - General Family Medicine 04/27/17 Move Coordinator Relationship Specialty Start Date End Date Federico Vigil MD [address] [facility] [place] [address] PCP - General Family Medicine 04/27/17 Move Coordinator Relationship Specialty Start Date End Date Federico Vigil MD [address] [facility] [place] [address] PCP - General Family Medicine 04/27/17 Move Coordinator Relationship Specialty Start Date End Date Federico Vigil MD [address] [place] [address] PCP - General Family Medicine 04/27/17 Move Coordinator Relationship Specialty Start Date End Date Federico Vigil MD [address] [facility] [place] [address] PCP - General Family Medicine 04/27/17 Move Coordinator Relationship Specialty Start Date End Date Federico Vigil MD [address] [facility] [place] [address] PCP - General Family Medicine 04/27/17 Move Coordinator Relationship Specialty Start Date End Date Federico Vigil MD [address] [facility] [place] [address] PCP - General Family Medicine 04/27/17 Move Coordinator Relationship Specialty Start Date End Date Federico Vigil MD [address] [place] [address] PCP - General Family Medicine 04/27/17 Move Coordinator Relationship Specialty Start Date End Date Federico Vigil MD [address] [facility] [place] [address] PCP - General Family Medicine 04/27/17 FOR RECORDS PERTAINING TO PATIENTS WHO ARE OR HAVE BEEN ENROLLED IN A CHEMICAL DEPENDENCY/SUBSTANCEABUSE PROGRAM, SOME INFORMATION MAY BE OMITTED. This clinical summary was aggregated from multiple sources. Caution should be exercised in using it in the provision of clinical care. This summary normalizes information from multiple sources, and as a consequence, information in this document may materially change the coding, format and clinical context of patient data. In addition, data may be omitted in some cases. CLINICAL DECISIONS SHOULD BE BASED ON THE PRIMARY CLINICAL RECORDS. [facility]. provides no warranty or guarantee of the accuracy or completeness of information in this document.
== END 2023-07-31 17:10 | disposition home or self-care (01) ==
PROVIDERS: Emergency Provider Emergency Medicine; PCP Family Medicine; Visit Provider Emergency Medicine
DX: S60.221A Contusion of right hand, initial encounter (principal); I48.91 Unspecified atrial fibrillation; S63.617A Unspecified sprain of left little finger, initial encounter; S20.20XA Contusion of thorax, unspecified, initial encounter; Z87.891 Personal history of nicotine dependence; Z79.01 Long term (current) use of anticoagulants; I25.10 Atherosclerotic heart disease of native coronary artery without angina pectoris; E78.5 Hyperlipidemia, unspecified; I10 Essential (primary) hypertension; Z95.5 Presence of coronary angioplasty implant and graft; Z79.899 Other long term (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; M10.9 Gout, unspecified; Z79.02 Long term (current) use of antithrombotics/antiplatelets; W01.198A Fall on same level from slipping, tripping and stumbling with subsequent striking against other object, initial encounter; Y93.89 Activity, other specified; Z96.649 Presence of unspecified artificial hip joint; Z96.659 Presence of unspecified artificial knee joint; Z96.619 Presence of unspecified artificial shoulder joint; S80.212A Abrasion, left knee, initial encounter
CPT/HCPCS: 71250; 73130; 73140; 99283

== ENCOUNTER 2023-08-01 12:00 | Outpatient (RCR) | payer MEDICARE, SELFPAY ==
--- NOTE | 2023-07-25 12:52 | HP.PTEVAL_ITS ---
Patient's Visit Information Visit Information Visit Information: TRINH FOX is a 77 year old M referred to Physical Therapy by Dr. 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 Date of Evaluation: 07/25/23 Physical Therapist: Rich Dunham PT, Cert MDT, OCS Visit Plan Frequency: 2x /Week Duration: 4 Weeks Plan: PT INTERVENTIONS CERVICAL ROM ,POSTURAL EX'S /STRENGTHENING ,MODALTIES AND MANUAL THERAPY Subjective Subjective: This 77 y/o male presents to physical therapy with cervical pain. Patient has had cervical pain many months. Patient had pain January [address] Pool Recommended PT. Patient had x-rays showed spurs Grade 1 anterolisthesis of C2 on C3 measuring 2.5 mm. Grade 1 retrolisthesis of C3 on C4 measuring 2.6 mm. Grade 1 retrolisthesis of C4 on C5 measuring 2.8 mm. Grade 1 retrolisthesis of C5 on C6 measuring 2.4 mm. Grade 1 C7 on T1 anterolisthesis measuring 1.9 mm. Patient recently developed A-FIB had aplasia and 2 stents in September . Patient has pain located right side. Patient pain increase with chewing and extension . Alleviating factors rest. Patient denies paresthesia/tingling-. Patient denies MAURER/nausea/tinnitus. Patient PMH : S/P hip replacement, S/P knee replacement ,S/P shoulder replacement ,see below for further comorbities. . Patient pain neck impairs function. Patient goals to decrease pain. SOCIAL: VOCATION: Retired Pain Right Neck: Pain Intensity (Out of 10): 2 Pain Intensity Range: 10 Objective Objective: POSTURE: rounded shoulders head forward PALPTION: tender UT/levator/occiput NEURO: denies paresthesia/tingling ,reflexes C5-6-7 2/3 MMT: BUE grossly 4/5 , except shoulders 3+/5 CERVICAL ROM: flexion min loss ,lateral flexion mod loss and rotation mod loss pain on right side ,extension pain right side Special Tests C/S Radiculapathy - Left Upper limb tension test: Negative C/S Radiculapathy - Right Upper limb tension test: Negative C/S Radiculapathy - Left Spurlings: Negative C/S Radiculapathy - Right Spurlings: Positive C/S Radiculapathy - Left Cervical distraction: Positive C/S Radiculapathy - Right Cervical distraction: Positive C/S Radiculapathy - Left Relief test: Negative C/S Radiculapathy - Right Relief test: Positive Sharp Demetrice: Negative Vertebral Artery Test: Negative Alar Ligament Test: Negative Balance/Special Test Scores Oswestry Neck Score: 18 Goals Goal 1:: Patient to be I with HEP Goal Time Frame: 4-6 Weeks Goal 2:: Patient to demonstrate 50% improvement with improved function and less pain Goal Time Frame: 4-6 Weeks Goal 3:: Patient to improve cervical ROM for function of recovery to turn neck when driving Goal Time Frame: 4-6 Weeks Goal 4:: Patient improve neck oswestry score by 5 points toni improve QOL and function Goal Time Frame: 4-6 Weeks Goal 5:: Patient improve posture for ADLS to manage neck pain Goal Time Frame: 4-6 Weeks Rehabilitation Potential Physical Therapy Diagnosis: This patient has cervical pain with multiple level DDD/spurs with decrease ROM ,pain ,postural deficits thus benefit from skilled PT Rehabilitation Potential: Good Anticipated Interventions Patient/Client Instruction: Educate patient on: Condition and Plan of Care For the Purpose of:: To decrease pain, To increase ROM, To improve muscle performance and motor function, To improve ability to perform ADL's, To increase tolerance to activity/condition/position, To improve ability of physical actions for home/community/work/leisure, To improve health of tissue, To decrease soft tissue restriction, To increase flexibility/ROM and To prevent re-injury Therapeutic Exercise to Include: Strength training, Postural training, Flexibilty training and Active ROM For the Purpose of:: To decrease pain, To improve muscle performance and motor function, To improve ability to perform ADL's, To increase tolerance to activity/condition/position, To improve ability of physical actions for home/community/work/leisure, To improve health of tissue, To decrease soft ti ssue restriction and To reduce risk of recurrence Manual Therapy Techniques to Include: Mobilization and Soft tissue mobilization For the Purpose of:: To decrease pain, To increase ROM, To improve nutrient delivery to tissue, To increase oxygenation perfusion, To improve health of tissue, To decrease soft tissue restriction and To increase flexibility/ROM TENS: Yes IF ES: Yes Cryotherapy (ice pack, ice massage): Yes Thermo therapy (hot pack): Yes Ultrasound (thermal/non thermal): Yes For the Purpose of:: To decrease pain, To increase ROM, To improve nutrient delivery to tissue, To increase oxygenation perfusion, To improve health of tissue, To decrease soft tissue restriction and To increase flexibility/ROM Text: Thank you for the opportunity to evaluate your patient. For Medicare and Medicare HMO plans, please review the plan of care and approve it. It will need to be FAXED BACK to us at [phone] for Medicare purposes. For Medicare only, by signing this I certify the plan of care. Please let me know if there are questions or concerns regarding this plan of care. Physician Signature: Date:
--- NOTE | 2023-10-28 12:36 | HP.PT.NRP ---
Patient Information Patient Information: TRINH FOX was seen in my office for initial evaluation on 07/25/23. The following Plan of Care was established for this patient: POC Established Initial Frequency: 2x /Week Initial Duration: 4 Weeks Anticipated Interventions Patient/Client Instruction: Educate patient on: Condition and Plan of Care For the Purpose of:: To decrease pain, To increase ROM, To improve muscle performance and motor function, To improve ability to perform ADL's, To increase tolerance to activity/condition/position, To improve ability of physical actions for home/community/work/leisure, To improve health of tissue, To decrease soft tissue restriction, To increase flexibility/ROM and To prevent re-injury Therapeutic Exercise to Include: Strength training, Postural training, Flexibilty training and Active ROM For the Purpose of:: To decrease pain, To improve muscle performance and motor function, To improve ability to perform ADL's, To increase tolerance to activity/condition/position, To improve ability of physical actions for home/community/work/leisure, To improve health of tissue, To decrease soft tissue restriction and To reduce risk of recurrence Manual Therapy Techniques to Include: Mobilization and Soft tissue mobilization For the Purpose of:: To decrease pain, To increase ROM, To improve nutrient delivery to tissue, To increase oxygenation perfusion, To improve health of tissue, To decrease soft tissue restriction and To increase flexibility/ROM TENS: Yes IF ES: Yes Cryotherapy (ice pack, ice massage): Yes Thermo therapy (hot pack): Yes Ultrasound (thermal/non thermal): Yes For the Purpose of:: To decrease pain, To increase ROM, To improve nutrient delivery to tissue, To increase oxygenation perfusion, To improve health of tissue, To decrease soft tissue restriction and To increase flexibility/ROM Last Seen Last Seen: This patient was last seen in our office . Pertinent comments regarding their Physical therapy will appear below: Patient seen for PT for cervical pain with HEP and ICTX At this point I will be discontinuing this patient from physical therapy. I would be happy to see this patient again in the future if found appropriate by the physician. Thank you! Rich Dunham, PT, Cert MDT, OCS Balance/Gait/Functional tests Balance/Special Test Scores Oswestry Neck Score: 18
== END 2023-08-01 19:00 | disposition home or self-care (01) ==
LOC: PT 12:00
PROVIDERS: PCP Family Medicine; Visit Provider Orthopaedic Surgery Orthopaedic Surgery of the Spine
DX: M47.812 Spondylosis without myelopathy or radiculopathy, cervical region (principal)
CPT/HCPCS: 97012; 97035; 97162

== ENCOUNTER → 2023-08-15 | Outpatient (CLI) | payer MEDICARE, SELFPAY ==
[2023-08-15 10:37] LABS: Hematocrit 33.6 % (40-54); Hemoglobin 10.1 g/dL (13.0-16.5); Mean Corp Hgb Conc 30.1 g/dL (32-36); Mean Corpuscular Hgb 27.2 pg (27.0-32.0); Mean Corpuscular Volume 90.3 fL (80-94); Mean Platelet Vol. 11.1 fl (6.2-12.0); Platelet Count 166 K/mm3 (150-450); RBC Distribution Width CV 16.2 % (11.6-14.6); Red Blood Count 3.72 M/mm3 (4.6-6.2); White Blood Count 8.8 K/mm3 (4.4-11.0)
[2023-08-15 11:19] LABS: Anion Gap 3 (5-15); BUN 23 mg/dL (7-18); BUN/Creat Ratio 16.9 RATIO (10-20); Chloride 113 mmol/L (98-107); Creatinine, Serum 1.36 mg/dL (0.70-1.30); EST Glomerular Filtration Rate 54 mL/min (>60); Est Glom Filt Rate - Afr Amer 65 mL/min (>60); Glucose 119 mg/dL (74-106); Potassium 3.7 mmol/L (3.5-5.1); Sodium Level 143 mmol/L (136-145); Thyroid Stim Hormone (TSH) 2.61 uIU/mL (0.358-3.74)
== END | disposition home or self-care (01) ==
LOC: LAB 10:19
PROVIDERS: PCP Family Medicine; Referring Provider Nurse Practitioner Gerontology; Visit Provider Nurse Practitioner Gerontology
DX: I42.9 Cardiomyopathy, unspecified (principal); R60.9 Edema, unspecified; R63.5 Abnormal weight gain; R06.02 Shortness of breath; R53.83 Other fatigue
CPT/HCPCS: 36415; 80048; 84443; 85027

== ENCOUNTER → 2023-09-13 | Outpatient (CLI) | payer MEDICARE, SELFPAY ==
[2023-09-13 14:14] LABS: Absolute Lymphocyte Count 1.33 X10^3/uL (0.83-4.51); Absolute Neutrophil Count 11.6 X10^3/uL (2.0-7.7); Basophil# 0.02 X10^3/uL; Basophil% 0.1 % (0-1); Eosinophil# 0.03 X10^3/uL; Eosinophils% 0.2 % (0-5); Hematocrit 34.7 % (40-54); Hemoglobin 10.7 g/dL (13.0-16.5); Lymphocyte # 1.33 X10^3/ul (0.83-4.51); Lymphocyte % 9.3 % (19-41); Mean Corp Hgb Conc 30.8 g/dL (32-36); Mean Corpuscular Hgb 26.8 pg (27.0-32.0); Mean Platelet Vol. 10.8 fl (6.2-12.0); Monocyte# 1.18 X10^3/uL; Monocyte% 8.3 % (0-10); NRBC Flagged by Analyzer 0 % (0-5); Neutrophil # 11.57 X10^3/uL (2.7-7.7); Neutrophil % 81.3 % (47-70); Platelet Count 197 K/mm3 (150-450); RBC Distribution Width CV 17.2 % (11.6-14.6); RBC Distribution Width SD 54.4 fl (35.1-43.9); Red Blood Count 3.99 M/mm3 (4.6-6.2); White Blood Count 14.3 K/mm3 (4.4-11.0)
[2023-09-13 14:33] LABS: BNP,B-Type NATRIURETIC PEPTIDE 1241.4 pg/mL (0-100)
[2023-09-13 14:40] LABS: ALB/GLOB Ratio 1.1 RATIO (0.9-2.4); AST(SGOT) 28 U/L (15-37); Alanine Aminotransfer ALT/SGPT 46 U/L (16-61); Albumin, Serum 3.8 g/dL (3.2-5.0); Alkaline Phosphatase 112 U/L (45-117); Anion Gap 5 (5-15); BUN 28 mg/dL (7-18); BUN/Creat Ratio 24.8 RATIO (10-20); Chloride 105 mmol/L (98-107); Creatinine, Serum 1.13 mg/dL (0.70-1.30); EST Glomerular Filtration Rate 67 mL/min (>60); Est Glom Filt Rate - Afr Amer 81 mL/min (>60); Globulin 3.4 g/dL (2.2-4.2); Glucose 126 mg/dL (74-106); Potassium 4.3 mmol/L (3.5-5.1); Protein, Total 7.2 g/dL (6.4-8.2); Sodium Level 137 mmol/L (136-145)
== END | disposition home or self-care (01) ==
LOC: LAB 13:49
PROVIDERS: PCP Family Medicine; Referring Provider Nurse Practitioner Family; Visit Provider Nurse Practitioner Family
DX: I42.9 Cardiomyopathy, unspecified (principal); I48.0 Paroxysmal atrial fibrillation; I25.10 Atherosclerotic heart disease of native coronary artery without angina pectoris; D64.9 Anemia, unspecified
CPT/HCPCS: 36415; 80053; 83880; 85025

== ENCOUNTER → 2023-09-23 | Outpatient (CLI) | payer MEDICARE, SELFPAY ==
[2023-09-23 12:01] LABS: Absolute Lymphocyte Count 1.68 X10^3/uL (0.83-4.51); Absolute Neutrophil Count 8.4 X10^3/uL (2.0-7.7); Eosinophil# 0.05 X10^3/uL; Eosinophils% 0.5 % (0-5); Lymphocyte # 1.68 X10^3/ul (0.83-4.51); Lymphocyte % 15.4 % (19-41); Mean Corp Hgb Conc 31.6 g/dL (32-36); Mean Corpuscular Volume 88.6 fL (80-94); Mean Platelet Vol. 10.1 fl (6.2-12.0); Monocyte# 0.72 X10^3/uL; Monocyte% 6.6 % (0-10); NRBC Flagged by Analyzer 0 % (0-5); Neutrophil # 8.39 X10^3/uL (2.7-7.7); Neutrophil % 76.8 % (47-70); Platelet Count 171 K/mm3 (150-450); RBC Distribution Width CV 18.5 % (11.6-14.6); RBC Distribution Width SD 59.6 fl (35.1-43.9); Red Blood Count 4.29 M/mm3 (4.6-6.2); White Blood Count 10.9 K/mm3 (4.4-11.0)
[2023-09-23 12:26] LABS: ALB/GLOB Ratio 1.2 RATIO (0.9-2.4); AST(SGOT) 36 U/L (15-37); Alanine Aminotransfer ALT/SGPT 73 U/L (16-61); Albumin, Serum 3.4 g/dL (3.2-5.0); Alkaline Phosphatase 81 U/L (45-117); Anion Gap 5 (5-15); BUN 23 mg/dL (7-18); BUN/Creat Ratio 24.4 RATIO (10-20); Calcium,Total 8.3 mg/dL (8.5-10.1); Chloride 102 mmol/L (98-107); Creatinine, Serum 0.94 mg/dL (0.70-1.30); EST Glomerular Filtration Rate 82 mL/min (>60); Est Glom Filt Rate - Afr Amer 100 mL/min (>60); Globulin 2.8 g/dL (2.2-4.2); Glucose 120 mg/dL (74-106); Potassium 4.7 mmol/L (3.5-5.1); Protein, Total 6.2 g/dL (6.4-8.2); Sodium Level 134 mmol/L (136-145); Uric Acid 4.5 mg/dL (3.5-7.2)
== END | disposition home or self-care (01) ==
LOC: MTLAB 09:28
PROVIDERS: PCP Family Medicine; Referring Provider Internal Medicine Rheumatology; Visit Provider Internal Medicine Rheumatology
DX: M06.4 Inflammatory polyarthropathy (principal); Z79.899 Other long term (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
CPT/HCPCS: 36415; 80053; 84550; 85025

== ENCOUNTER → 2023-11-14 | Outpatient (CLI) | payer MEDICARE, SELFPAY ==
--- NOTE | 2023-11-14 08:05 | MRI_ITS ---
STUDY: MRI CERVICAL SPINE WITHOUT CONTRAST REASON FOR EXAM: Male, 78 years old. Neck pain x10 months. TECHNIQUE: Standardized fat and water weighted pulse sequences were obtained in the sagittal and axial planes. COMPARISON: Cervical spine radiographs 07/15/2023. FINDINGS: Normal foramen magnum and brainstem-cervical cord junction. Normal craniovertebral junction. Normal anterior atlantoaxial articulation. Normal odontoid process. Normal cervical lordosis. Prominent anterior end posterior marginal spurs at C3-C4, C4-C5 and C5-C6 disc space levels. No suspicious recent or remote fractures of the cervical spine. C2-3: Normal endplates. Normal disc height. Minimal degenerative anterolisthesis of C2 on C3. Normal central canal and intervertebral neural foramina. C3-4: Prominent anterior and posterior marginal spurs. Normal endplates. Moderately pronounced left-sided disc space height narrowing. Prominent ventral extradural defect due to prominent bone spur. This is causing minimal deformity of the ventral cord surface and mild central canal stenosis. Moderate stenosis of the intervertebral neural foramina due to osteophytes arising from the uncovertebral joints, left greater than right.. C4-5: Normal endplates. Prominent anterior and posterior marginal spurs. Pronounced disc space height narrowing. Prominent ventral extradural defect due to bone spur. This is causing minimal deformity of the ventral cord surface. Mild central canal stenosis. Moderate stenosis of the intervertebral neural foramina due to osteophytes arising from the uncovertebral joints. C5-6: Minimal Modic type II degenerative vertebral marrow fat infiltration underneath the vertebral endplates. Prominent anterior and posterior marginal spurs. Moderately pronounced disc space height narrowing. Mild central canal stenosis due to posterior marginal spur touching the ventral cord surface without definite cord displacement. Moderate stenosis of the right intervertebral neural foramen and mild stenosis of the left intervertebral neural foramen. C6-7: Normal endplates. Mild disc space height narrowing. Mild ventral extradural defect due to posterior marginal spur. Normal central canal. Mild stenosis of the intervertebral neural foramina. C7-T1: Normal endplates. Normal disc height, signal and morphology. Normal central canal and intervertebral neural foramina. T1-T2 and T2-T3: (Sagittal only). Normal endplates. Normal disc height, signal and morphology. Normal central canal and intervertebral neural foramina. T3-T4: (Sagittal only). Normal endplates. Normal disc height. Small midline ventral extradural defect is posterior bulging annulus. Normal central canal and intervertebral neural foramina. Minimal deformity of the ventral cord surface at C3-C4, C4-C5 and C5-C6 disc space level due to prominent bone spurs. No intrinsic signal abnormality of the cervical spinal cord. Normal upper thoracic spinal cord. Normal visualized soft tissue structures. MRI/Spine Cervical (Routine) IMPRESSION: 1. Mild central canal stenosis at C3-C4, C4-C5 and C5-C6 disc space levels due to prominent posterior marginal spurs causing minimal deformity of the ventral cord surface without intrinsic signal cord abnormality. 2. Moderate stenosis of the C3-C4 intervertebral neural foramina due to osteophytes arising from the uncovertebral joints, left greater than right. 3. Moderate stenosis of the C4-C5 intervertebral neural foramina due to osteophytes arising from the uncovertebral joints. 4. Moderate stenosis of the right C5-C6 intervertebral neural foramen and mild stenosis of the left C5-C6 intervertebral neural foramen due to osteophytes arising from the uncovertebral joints. 5. No MRI evidence of cervical extruded disc fragment. Electronically Signed: Cecil Mancera MD at 12:08 EDT ,
== END | disposition home or self-care (01) ==
PROVIDERS: PCP Family Medicine; Referring Provider Orthopaedic Surgery Orthopaedic Surgery of the Spine; Visit Provider Orthopaedic Surgery Orthopaedic Surgery of the Spine
DX: M54.12 Radiculopathy, cervical region (principal)
CPT/HCPCS: 72141

== ENCOUNTER → 2024-02-08 | Outpatient (CLI) | payer MEDICARE, SELFPAY ==
[2024-02-08 12:12] LABS: Absolute Lymphocyte Count 2.19 X10^3/uL (0.83-4.51); Absolute Neutrophil Count 6.1 X10^3/uL (2.0-7.7); Basophil# 0.05 X10^3/uL; Basophil% 0.5 % (0-1); Eosinophil# 0.13 X10^3/uL; Eosinophils% 1.4 % (0-5); Hematocrit 34.4 % (40-54); Hemoglobin 11.1 g/dL (13.0-16.5); Lymphocyte # 2.19 X10^3/ul (0.83-4.51); Lymphocyte % 23.9 % (19-41); Mean Corp Hgb Conc 32.3 g/dL (32-36); Mean Corpuscular Hgb 30.3 pg (27.0-32.0); Mean Platelet Vol. 10.5 fl (6.2-12.0); Monocyte# 0.64 X10^3/uL; NRBC Flagged by Analyzer 0 % (0-5); Neutrophil # 6.13 X10^3/uL (2.7-7.7); Neutrophil % 66.8 % (47-70); Platelet Count 232 K/mm3 (150-450); RBC Distribution Width CV 13.3 % (11.6-14.6); RBC Distribution Width SD 45.8 fl (35.1-43.9); Red Blood Count 3.66 M/mm3 (4.6-6.2); White Blood Count 9.2 K/mm3 (4.4-11.0)
[2024-02-08 13:03] LABS: ALB/GLOB Ratio 1.1 RATIO (0.9-2.4); AST(SGOT) 15 U/L (15-37); Alanine Aminotransfer ALT/SGPT 21 U/L (16-61); Albumin, Serum 3.9 g/dL (3.2-5.0); Alkaline Phosphatase 77 U/L (45-117); Anion Gap 10 (5-15); BUN 41 mg/dL (7-18); Calcium,Total 9.2 mg/dL (8.5-10.1); Chloride 101 mmol/L (98-107); Creatinine, Serum 1.71 mg/dL (0.70-1.30); EST Glomerular Filtration Rate 41 mL/min (>60); Est Glom Filt Rate - Afr Amer 50 mL/min (>60); Globulin 3.6 g/dL (2.2-4.2); Glucose 120 mg/dL (74-106); Potassium 4.2 mmol/L (3.5-5.1); Protein, Total 7.5 g/dL (6.4-8.2); Sodium Level 135 mmol/L (136-145)
[2024-02-08 16:54] LABS: BNP,B-Type NATRIURETIC PEPTIDE 209.7 pg/mL (0-100)
[2024-02-10 17:07] LABS: G6PD Quant Test 366 (127-427); Red Blood Cell Count Test/G6PD 3.72 x10E6/uL (4.14-5.80)
== END | disposition home or self-care (01) ==
PROVIDERS: Physician Assistant Medical; PCP Family Medicine; Referring Provider Internal Medicine Rheumatology; Visit Provider Internal Medicine Rheumatology
DX: M06.4 Inflammatory polyarthropathy (principal); Z79.899 Other long term (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; M10.9 Gout, unspecified; R06.02 Shortness of breath
CPT/HCPCS: 36415; 80053; 82955; 83880; 84550; 85025

== ENCOUNTER → 2024-02-16 | Outpatient (CLI) | payer MEDICARE, SELFPAY ==
[2024-02-16 15:19] LABS: Anion Gap 4 (5-15); BUN 16 mg/dL (7-18); BUN/Creat Ratio 13.2 RATIO (10-20); Calcium,Total 8.9 mg/dL (8.5-10.1); Chloride 109 mmol/L (98-107); Creatinine, Serum 1.21 mg/dL (0.70-1.30); EST Glomerular Filtration Rate 62 mL/min (>60); Est Glom Filt Rate - Afr Amer 75 mL/min (>60); Glucose 137 mg/dL (74-106); Potassium 4.6 mmol/L (3.5-5.1); Sodium Level 138 mmol/L (136-145)
== END | disposition home or self-care (01) ==
LOC: LAB 10:28
PROVIDERS: PCP Family Medicine; Referring Provider Physician Assistant Medical; Visit Provider Physician Assistant Medical
DX: R63.5 Abnormal weight gain (principal); R60.9 Edema, unspecified; R06.02 Shortness of breath
CPT/HCPCS: 80048

== ENCOUNTER 2024-04-10 12:00 | Outpatient (RCR) | payer MEDICARE, SELFPAY ==
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
--- NOTE | 2024-04-16 20:43 | HP.PT.NRP ---
Patient Information Patient Information: TRINH FOX was seen in my office for initial evaluation on 03/26/24. The following Plan of Care was established for this patient: POC Established Initial Frequency: 2-3x /Week Initial Duration: 4-6 Weeks Anticipated Interventions Patient/Client Instruction: Educate patient on: Condition, Plan of Care and Risk Factors For the Purpose of:: To improve self management Therapeutic Exercise to Include: Strength training, Body mechanics, Postural training, Flexibilty training, Neuromotor development, In an aquatic setting and Dynamic Lumbar Stabilization For the Purpose of:: To decrease pain, To increase ROM, To improve muscle performance and motor function, To increase tolerance to activity/condition/position, To improve ability of physical actions for home/community/work/leisure, To increase flexibility/ROM, To improve self management and To prevent re-injury Cryotherapy (ice pack, ice massage): Yes Thermo therapy (hot pack): Yes Ultrasound (thermal/non thermal): Yes For the Purpose of:: To decrease pain, To decrease swelling/inflammation and To improve nutrient delivery to tissue Last Seen Last Seen: This patient was last seen in our office 04/10/24. Pertinent comments regarding their Physical therapy will appear below: It has been my pleasure to see this patient for a total of 5 visits. This patient has not returned to Physical Therapy for more visits and is appropriate to return to MD for further follow-up as needed. He apparently called cancelled his remaining visits 04/13/24 reporting he is seeing Dr. Oliver for injections. We would be happy to resume PT at any point recommended. At this point I will be discontinuing this patient from physical therapy. I would be happy to see this patient again in the future if found appropriate by the physician. Thank you! Shabnam Diaz, PT, Cert MDT Balance/Gait/Functional tests Balance/Special Test Scores Oswestry Low Back Score: 12
== END 2024-04-10 19:00 | disposition home or self-care (01) ==
LOC: PT 12:00
PROVIDERS: PCP Family Medicine; Referring Provider Anesthesiology; Visit Provider Anesthesiology
DX: M43.06 Spondylolysis, lumbar region (principal)
CPT/HCPCS: 97014; 97110; 97112; 97162; G0283

== ENCOUNTER → 2024-05-29 | Outpatient (CLI) | payer MEDICARE, SELFPAY ==
--- NOTE | 2024-05-29 15:36 | MRI_ITS ---
HISTORY: Spondylosis. Back pain x 2 months. TECHNIQUE: Multiplanar and multisequence MR images of the lumbar spine were obtained without intravenous contrast. 157 images. COMPARISON: CT 05/10/2023. FINDINGS: VERTEBRAE: Vertebral body heights maintained. Degenerative endplate changes at L4-5 and L5-S1. ALIGNMENT: No anterior or posterior subluxation. No scoliosis. CONUS: Normal morphology and position of the conus medullaris at T12-L1. INTERVERTEBRAL DISCS: T12-L1: Very mild disc bulge with no significant central canal stenosis and minimal bilateral foraminal narrowing based on the sagittal images. L1-2, L2-3: Mild disc bulges with facet arthropathy resulting in minimal narrowing of the thecal sac and mild bilateral foraminal narrowing. L3-4: Mild disc bulge with facet arthropathy superimposed on a developmentally narrow spinal canal resulting in mild central canal stenosis and moderate bilateral foraminal narrowing. L4-5: Moderate disc bulge and facet arthropathy superimposed on a developmentally narrow spinal canal resulting in markedly severe central canal stenosis, probable bilateral L5 nerve root impingement, and moderate bilateral foraminal narrowing with right L4 nerve root abutment. Small posterior synovial cysts incidentally noted. L5-S1: No significant posterior disc protrusion, central canal stenosis, or foraminal narrowing. SOFT TISSUES: No paraspinal fluid collection. Colonic diverticulosis noted. MRI/Spine Lumbar (Routine) IMPRESSION: Multilevel degenerative disc disease of the lumbar spine. Markedly severe spinal canal stenosis, moderate bilateral foraminal narrowing, and probable nerve root impingement at L4-5. Mild spinal canal stenosis and moderate bilateral foraminal narrowing at L3-4. Electronically Signed: Nae Wright MD at 9:46 EST ,
== END | disposition home or self-care (01) ==
PROVIDERS: PCP Family Medicine; Referring Provider Anesthesiology; Visit Provider Anesthesiology
DX: M47.896 Other spondylosis, lumbar region (principal)
CPT/HCPCS: 72148

== ENCOUNTER 2024-06-20 15:28 | Observation (INO) | payer MEDICARE, SELFPAY ==
--- NOTE | 2024-06-12 10:39 | EKG12_ITS ---
Test Reason : PRE OP Blood Pressure : */* mmHG Vent. Rate : 72 BPM Atrial Rate : 35 BPM P-R Int : * ms QRS Dur : 104 ms QT Int : 374 ms P-R-T Axes : * -58 -12 degrees QTcB Int : 409 ms Normal sinus rhythm with First degree A-V block Left anterior fascicular block Nonspecific ST and T wave abnormality , probably digitalis effect Abnormal ECG Confirmed by Andrea Mauricio ([id number]), photography editor GRETEL ESPINO ([id number]) on 06/12/2024 1:03:56 PM Referred By: Hang Pool Confirmed By: Andrea Mauricio
[2024-06-12 11:51] LABS: Absolute Lymphocyte Count 2.18 X10^3/uL (0.83-4.51); Absolute Neutrophil Count 8.6 X10^3/uL (2.0-7.7); Basophil# 0.05 X10^3/uL; Basophil% 0.4 % (0-1); Eosinophil# 0.19 X10^3/uL; Eosinophils% 1.6 % (0-5); Hematocrit 39.2 % (40-54); Hemoglobin 13.4 g/dL (13.0-16.5); Lymphocyte # 2.18 X10^3/ul (0.83-4.51); Mean Corp Hgb Conc 34.2 g/dL (32-36); Mean Corpuscular Hgb 30.9 pg (27.0-32.0); Mean Corpuscular Volume 90.3 fL (80-94); Mean Platelet Vol. 9.6 fl (6.2-12.0); Monocyte# 0.92 X10^3/uL; Monocyte% 7.6 % (0-10); NRBC Flagged by Analyzer 0 % (0-5); Neutrophil % 71.2 % (47-70); Platelet Count 247 K/mm3 (150-450); RBC Distribution Width CV 15.3 % (11.6-14.6); RBC Distribution Width SD 49.8 fl (35.1-43.9); Red Blood Count 4.34 M/mm3 (4.6-6.2); White Blood Count 12.1 K/mm3 (4.4-11.0)
[2024-06-12 12:16] LABS: Anion Gap 6 (5-15); BUN 27 mg/dL (7-18); BUN/Creat Ratio 20.1 RATIO (10-20); Calcium,Total 9.4 mg/dL (8.5-10.1); Chloride 97 mmol/L (98-107); Creatinine, Serum 1.34 mg/dL (0.70-1.30); EST Glomerular Filtration Rate 55 mL/min (>60); Est Glom Filt Rate - Afr Amer 66 mL/min (>60); Glucose 101 mg/dL (74-106); Sodium Level 128 mmol/L (136-145)
[2024-06-12 12:55] LABS: HIV - WCH Non-Reactive (Nonreactive); Hepatitis B Surface Antibody Non-Reactive; Hepatitis C Antibody Non-Reactive (Nonreactive)
[2024-06-12 13:11] LABS: Magnesium 3.4 mg/dL (1.6-2.6)
[2024-06-13 06:10] LABS: Hepatitis A AB, Total Negative (Negative)
[2024-06-20] VITALS (12 sets, daily range): BP systolic 130–183; BP diastolic 55–83; PULSE 68–91; RESP 16–18; TEMP 36.1–36.8; O2SAT 96–100; BMI 24.3
--- NOTE | 2024-06-20 11:16 | PCM.PRE.AN2 ---
ASA Classification* ASA Classification ASA Classification: 3 Assessment & Plan Anesthesia* Anesthesia Assessment Anesthesia Assessment: Discussed sedation and/or anesthesia options, risks, benefits, and alternatives with patient/parents/legal guardian/POA. Questions invited. The patient/parents/legal guardian/POA seems to understand and agrees to proceed with anesthesia plan. Reviewed the physical assessment, medical history, allergy history and patient home medications list prior to surgery/procedure/anesthetic and documented any changes. Performed airway and anesthesia risk assessments. Anesthesia Type Anesthesia Type: General Anesthesia Focused Assessment* Airway Assessment Mouth opens: >3 cm Mallampati Score: II Focused Labs Anesthesia Preop lab: CBC WBC 12.1 K/mm3 (4.4-11.0) H 06/12/24 11:03 RBC 4.34 M/mm3 (4.6-6.2) L 06/12/24 11:03 Hgb 13.4 g/dL (13.0-16.5) 06/12/24 11:03 Hct 39.2 % (40-54) L 06/12/24 11:03 Plt Count 247 K/mm3 (150-450) 06/12/24 11:03 CHEMISTRY Potassium 5.0 mmol/L (3.5-5.1) 06/12/24 11:03 Sodium 128 mmol/L (136-145) L 06/12/24 11:03 Magnesium 3.4 mg/dL (1.6-2.6) H 06/12/24 11:03 BUN 27 mg/dL (7-18) H 06/12/24 11:03 Creatinine 1.34 mg/dL (0.70-1.30) H 06/12/24 11:03 Glucose 101 mg/dL (74-106) 06/12/24 11:03 TSH 2.61 uIU/mL (0.358-3.74) 08/15/23 10:21 COAG PT 19.8 SECONDS (11.7-14.9) H 12/25/22 06:54 Pre-Assessment Diagnosis/Proposed Procedure Planned Operative Procedure(s): Lumbar Laminectomy L4-5 Anesthesia History Anesthesia History - product responsibility liaison: Anesthesia History - product responsibility liaison Hx Hospitalization Yes: RIGHT CAROTID 06/11/24 15:17 ENDATERECTOMY - [facility] Any Problems With Anesthesia No 06/11/24 15:17 Cholinesterase deficiency No 06/11/24 15:17 You/Your Family Experience No 06/11/24 15:17 fever (hyperthermia) with Relationship Recent Exposure to Contagious Disease Does patient have nerve No 06/11/24 15:17 stimulator Patient instructed to have device shut off --Does patient have Pacemaker or ICD? When Was Last Pacemaker Check QUESTION #4 FULL TEXT: You/Your Family Experience fever (hyperthermia) with Anesthesia Last Oral Intake Last Oral intake: Last Oral Intake NPO since Meds taken in AM with sips of water? Meds patient instructed to take am of surgery PONV PONV - product responsibility liaison: PONV - product responsibility liaison Female No 06/11/24 15:17 HX of Motion Sickness No 06/11/24 15:17 HX of N/V After Surgery No 06/11/24 15:17 Non-Smoker Yes 06/11/24 15:17 Duration of Surgery greater Yes 06/11/24 15:17 than 60 minutes Number of Risk Factors 2 06/11/24 15:17 PONV Score Moderate Risk 06/11/24 15:17 Height & Weight Height & Weight: Anesthesia: Height & Weight Height 5 ft 10 in 06/19/24 08:20 Weight: 80.286 kg 06/19/24 08:20 Respiratory Assessment Respiratory Assessment - product responsibility liaison: Respiratory Tract Infection Hx - product responsibility liaison Hx Respiratory Tract Infection No 06/11/24 15:17 STOP Sleep Apnea STOP Sleep Apnea - product responsibility liaison: STOP Sleep Apnea - product responsibility liaison Hx Hypertension Yes: CONTROLLED WITH MED 06/11/24 15:17 Hx Sleep Apnea No 06/11/24 15:17 CPAP BIPAP Do you snore loudly (louder No 06/11/24 15:17 than talking or can be heard Do you often feel tired/ No 06/11/24 15:17 fatigued/ sleepy during daytime? Has anyone observed you stop No 06/11/24 15:17 breathing during sleep? STOP Results Negative 06/11/24 15:17 QUESTION #5 FULL TEXT : Do you snore loudly (louder than talking or can be heard through closed doors)? 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 Specify any problems Hx of Preganancy in last 3 N/A 06/11/24 15:17 Months Nurse Filling Out Transfusion NBUCHER 06/11/24 15:17 & Questions: Date: 06/11/24 06/11/24 15:17 Time: 15:20 06/11/24 15:17 Patient unable to answer at this time (ie. confused, unrespo /Reproduction History /Reproductive History - product responsibility liaison: /Reproductive Hx- product responsibility liaison Hx Now No 06/11/24 15:17 Gestational Age (in weeks): EDC: Hx Hx Para Hx Section SAB No 06/11/24 15:17 Active Medications Active Medications: Current Medications Generic Name Dose Route Start Last Admin Trade Name Freq PRN Reason Stop Dose Admin Acetaminophen 1,000 mg 06/20/24 13:00 Acetaminophen 500 Mg Tablet PO 06/20/24 13:01 X1 ONE Tranexamic Acid 1,000 mg/ 110 mls @ 440 mls/hr 06/20/24 13:00 Sodium Chloride IV 06/20/24 13:14 X1 ONE Tranexamic Acid 1,000 mg/ 110 mls @ 440 mls/hr 06/20/24 13:00 Sodium Chloride IV 06/20/24 13:14 X1 ONE Cefazolin Sodium 2 gm/ N/A 20 mls @ 400 mls/hr 06/20/24 13:00 IV 06/20/24 13:02 PREOP ONE Lactated Ringer's 1,000 mls @ 15 mls/hr 06/20/24 11:15 IV 06/26/24 00:34 .Q48H WHITNEY Protocol Insulin Human Lispro 1 - 6 unit 06/20/24 13:00 Insulin Lispro 100 Unit/Ml Insuln.Pen SC 06/20/24 19:00 Q4H PRN PRN BG>/= 180, SEE PROTOCOL Protocol PFSH Medical History Wears hearing aid Loss of hearing Wears glasses Wears dentures History of steroid therapy Back pain Walker as ambulation aid Arthritis DDD (degenerative disc disease) Low iron Excessive bleeding High cholesterol Diverticulosis History of diverticulitis Former smoker Shortness of breath on exertion History of CHF (congestive heart failure) Leg cramps History of echocardiogram History of stress test Cardiology follow-up encounter Cervical radiculopathy Anemia Weight gain Edema Other cervical disc degeneration, mid-cervical region, unspecified level Bradycardia Lightheadedness Fatigue Presence of stent in coronary artery (~10/06/22) Atherosclerotic heart disease of [place] coronary artery without angina pectoris Dyslipidemia Cardiomyopathy SOB (shortness of breath) Snoring Erectile dysfunction Avascular necrosis Allergic rhinitis Diverticulosis of colon Benign neoplasm of colon Hepatomegaly PAD (peripheral artery disease) Essential (primary) hypertension Mixed hyperlipidemia Atrial fibrillation Prominent abdominal aortic pulsation Subclavian arterial stenosis Carotid stenosis, bilateral GERD (gastroesophageal reflux disease) CAD (coronary artery disease) Gout Osteoarthritis Chronic back pain Home Medications ?Medication ?Instructions ?Recorded ?Last Taken ?Type simvastatin 20 mg tablet 20 mg PO QPM cholesterol 12/09/17 Unknown History allopurinol 100 mg tablet 100 mg PO BID gout 09/07/22 Unknown History pantoprazole 20 mg tablet,delayed 20 mg PO DAILY reflux 09/07/22 Unknown History release melatonin 5 mg capsule 5 mg PO QHS sleep 09/10/22 Unknown History acetaminophen 325 mg tablet 325 mg PO Q4H PRN fever or pain 11/04/22 Unknown History lactobacillus combination no.4 3 3,000 mmu cells PO DAILY 07/15/23 Unknown History billion cell capsule (Probiotic) magnesium oxide 500 mg capsule 500 mg PO DAILY 09/13/23 Unknown History multivitamin with iron-mineral 1 tab PO DAILY 09/13/23 Unknown History vitamin B complex 1 tab PO DAILY 09/13/23 Unknown History carvedilol 6.25 mg tablet 6.25 mg PO BID #180 tabs 01/04/24 Unknown Rx polyethylene glycol 3350 17 gram 17 g PO DAILY PRN CONSTIPATION 02/16/24 Unknown History oral powder packet (Miralax) apixaban 5 mg tablet (Eliquis) 5 mg PO BID blood thinner #180 tabs 03/12/24 Unknown Rx furosemide 40 mg tablet 40 mg PO DAILY PRN Swelling or 04/23/24 Unknown Rx weight gain #90 TABLETS lisinopril 5 mg tablet 5 mg PO BID #60 tabs 05/29/24 Unknown Rx oxycodone-acetaminophen 5 mg-325 1 tab PO TID PRN pain 06/07/24 Unknown History mg tablet aspirin 81 mg capsule 81 mg PO DAILY 06/11/24 Unknown History Allergy/AdvReac Type Severity Reaction Status Date / Time indomethacin (From Indocin) AdvReac Intermediate Diarrhea Verified 06/11/24 15:12 meloxicam (From Mobic) AdvReac Intermediate Diarrhea Verified 06/11/24 15:12 spironolactone AdvReac Intermediate Dizziness Verified 06/11/24 15:12 and severe headaches Family History Mother CVA (cerebral vascular accident) Heart disease Hypertension CAD (coronary artery disease) Cancer kidney Father Cancer lung Sister Fibromyalgia Brother Cancer prostate Surgical History History of cardiac catheterization History of right-sided carotid endarterectomy (~12/26/23) History of radiofrequency ablation (RFA) for complex left atrial arrhythmia (~12/2022) Presence of coronary angioplasty implant and graft (~10/06/22) History of tonsillectomy and adenoidectomy S/P eye surgery S/P knee replacement S/P hip replacement S/P shoulder replacement Social History Smoking Status: Former smoker quit date: 07/18/71 pack-years: 10 how long ago did patient quit smokin alcohol intake: current alcohol intake frequency: a few times a week Alcohol type: beer substance use type: does not use caffeine: Yes Type: coffee Number of servings: 2 Review of Systems (Anesthesia) ROS Narrative System reviewed and no additional complaints, except as documented.
[2024-06-20] MEDS: Acetaminophen 500 MG Tablet 1000 MG PO (11:44)
[2024-06-20] MEDS: Lactated Ringers 1,000 ML 15 ML IV (11:44)
[2024-06-20 12:11] LABS: Bedside Glucose 105 mg/dL (74-106)
--- NOTE | 2024-06-20 12:57 | HP.PCM_ITS ---
History and Physical Date of Admission: 06/20/24 MR#: [id number] Acct: [id number] Name: TRINH FOX Rep #: [id number] : 1945 Provider: Dr. Hang Pool MD Age/Sex: 78/M Location: [facility] [place] Status: Signed Intake Vital Signs 02/15/2409:26 Height 5 ft 10 in Intake Visit Reasons: LUMBAR SPINE Accompanied by: Is patient in pain?: Yes Allergies indomethacin (From Indocin) Adverse Reaction (Intermediate, Verified 06/07/24 09:38) Diarrheameloxicam (From Mobic) Adverse Reaction (Intermediate, Verified 06/07/24 09:38) Diarrheaspironolactone Adverse Reaction (Intermediate, Verified 06/07/24 09:38) Dizziness and severe headaches Medications ?Medication ?Instructions ?Recorded ?Confirmed ?Type simvastatin 20 mg tablet 20 mg PO QPM cholesterol 12/09/17 06/07/24 History allopurinol 100 mg tablet 100 mg PO BID gout 09/07/22 06/07/24 History pantoprazole 20 mg tablet,delayed 20 mg PO DAILY reflux 09/07/22 06/07/24 History release melatonin 5 mg capsule 5 mg PO QHS sleep 09/10/22 06/07/24 History acetaminophen 325 mg tablet 325 mg PO Q4H PRN fever or pain 11/04/22 06/07/24 History lactobacillus combination no.4 3 3,000 mmu cells PO DAILY 07/15/23 06/07/24 History billion cell capsule (Probiotic) magnesium oxide 500 mg capsule 500 mg PO DAILY 09/13/23 06/07/24 History multivitamin with iron-mineral 1 tab PO DAILY 09/13/23 06/07/24 History vitamin B complex 1 tab PO DAILY 09/13/23 06/07/24 History carvedilol 6.25 mg tablet 6.25 mg PO BID Pt is out, can't 01/04/24 06/07/24 Rx get RX until elsewhere #180 tabs polyethylene glycol 3350 17 gram 17 g PO DAILY PRN 02/16/24 06/07/24 History oral powder packet (Miralax) prednisone 2.5 mg tablet 2.5 mg PO QDAY 02/16/24 06/07/24 History apixaban 5 mg tablet (Eliquis) 5 mg PO BID blood thinner #180 tabs 03/12/24 1 08/07/23 Rx furosemide 40 mg tablet 40 mg PO DAILY PRN Swelling or 04/23/24 06/07/24 Rx weight gain #90 TABLETS lisinopril 5 mg tablet 5 mg PO BID #60 tabs 05/29/24 06/07/24 Rx oxycodone-acetaminophen 5 mg-325 1 tab PO TID PRN 06/07/24 06/07/24 History mg tablet Have you fallen in the past year?: No PFSH Medical History (Updated 06/07/24 @ 13:[address] Hang Pool MD) Other cervical disc degeneration, mid-cervical region, unspecified level Edema Weight gain Anemia Cervical radiculopathy Bradycardia Lightheadedness Fatigue Presence of stent in coronary artery (~10/06/22) Atherosclerotic heart disease of [place] coronary artery without angina pectoris Dyslipidemia Cardiomyopathy SOB (shortness of breath) Snoring Erectile dysfunction Avascular necrosis Allergic rhinitis Diverticulosis of colon Benign neoplasm of colon Hepatomegaly PAD (peripheral artery disease) Essential (primary) hypertension Mixed hyperlipidemia Atrial fibrillation Prominent abdominal aortic pulsation Subclavian arterial stenosis Carotid stenosis, bilateral GERD (gastroesophageal reflux disease) CAD (coronary artery disease) Gout Osteoarthritis Chronic back pain Surgical History (Updated 02/16/24 @ 09:31 by Elena Sheridan) History of right-sided carotid endarterectomy (~12/26/23) History of radiofrequency ablation (RFA) for complex left atrial arrhythmia (~12/2022) Presence of coronary angioplasty implant and graft (~10/06/22) History of tonsillectomy and adenoidectomy S/P eye surgery S/P knee replacement S/P hip replacement S/P shoulder replacement Family History Mother CVA (cerebral vascular accident) Heart disease Hypertension CAD (coronary artery disease) Cancer kidneyFather Cancer lungSister FibromyalgiaBrother Cancer prostate Social History Smoking Status: Former smoker quit date: 07/18/71 pack-years: 10 how long ago did patient quit smokin alcohol intake: current alcohol intake frequency: a few times a week Alcohol type: beer substance use type: does not use caffeine: Yes Type: coffee Number of servings: 2 HPI LUMBAR SPINE Details: This documentation accurately reflects the service provided and the decisions made by me, Dr. Hang Pool MD 06/07/24 2012. Part of today?s visit was documented by [ ], acting as scribe. TRINH FOX is a 78 year old M here today for lumbar spine. Patient states that he has severe lumbar spine pain. Patient has had pain for 1.5 months with his pain worsening recently within the last 10 days. He states that he was golfing and hit a bump in a golf cart, which might have started his pain. Patient notes that he has pain into his lower back, right buttock and his right calf. No left sided pain. He denies any numbness or tingling. He notes that he has weakness and cant stand or walk far due to his pain. He feels that he has also become m ore unsteady since this pain has worsened. He uses a walker at home. He has been seeing Dr Oliver for other parts of his back but wanted to order an MRI which is here for review. Last injection was a month or two ago. Says that his neck pain has been well managed with pain management. Patient had xrays at [facility] which are not here for review. Patient is taking percocet and Tylenol for pain. He also is trying heat and ice. Prior stent placements with patient taking Eliquis. He has stopped his blood thinner in the past for procedures. Ortho Exam General General: Yes no acute distress Neurologic: Yes alert and Yes oriented x3 Spine SPINE TESTING CERVICAL THORACIC LUMBAR Musculoskeletal Strength 0=absent - 5=normal Details: Neurological exam of the lower and upper extremities shows 5x5 power, except for right ankle dorsiflexion which is 4+. Passive straight leg raise test is positive on the right. Normal sensations across all dermatomes. No midline or paraspinal tenderness. Coding Level of Care Code Off vis,est,level 5 Diagnoses Spinal stenosis of lumbar region with neurogenic claudication M48.062 Lumbar radiculopathy M54.16 Spinal stenosis in cervical region M48.02 Unilateral primary osteoarthritis, right hip M16.11 Time Spent (min) 45 Assessment and Plan Assessment and Plan (1) Spinal stenosis of lumbar region with neurogenic claudication: Status: Acute (2) Lumbar radiculopathy: Status: Acute (3) Spinal stenosis in cervical region: Status: Acute (4) Unilateral primary osteoarthritis, right hip: Status: Acute Orders: Orders L/S Spine Min 4 Views Today M54.50 - Low back pain, unspecified Plan Obtained and reviewed xrays today with the patient and reviewed prior lumbar MRI from 05/29/24. MRI showed severe spinal canal stenosis and moderate bilateral foraminal narrowing at L4-5. No instability on xrays. Previous MRI from cervical spine from October was also discussed which shows C3-6 stenosis with cord indentation without any cord signal changes. AP x-ray of the lumbar spine also shows severe right hip osteoarthritis. Postsurgical changes of left hip replacement noticed. Explained imaging findings in detail. He has severe lumbar stenosis and presents with worsening difficulty to walk and is on a wheelchair now. He has rapidly worsened over the last 3 to 4 months after the jarring accident on the golf cart. He has slowly requiring more support for walking. He has severe debilitating right lumbar radiculopathy mainly going to the L5 dermatome. I recommend urgent L4-5 laminectomy to relieve pressure on the nerve due to pain and the fact that his function has significantly decreased over the last several weeks. Discussed risks and benefits of surgery. The risks include but are not limited to infection, bleeding, hematoma formation, need for further surgery, nerve injury, foot drop, DVT, pulm embolism, need for further surgery, need for fusion, persistent pain, persistent difficulty to ambulate, cardiopulmonary event, stroke, . Patient understands and agrees to proceed with surgery. He will need to be cleared by cardiology to get approval to stop the Eliquis prior to the surgery and clearance from his PCP. I explained to him that he has severe right hip arthritis as well as cervical stenosis with cord indentation. At this point most of his pain is in the lower back right posterior hip and r ight lateral leg and severe difficulty to walk. He denies any pain in the groin or inner thigh pain. Patient also denies any neck pain or upper extremity pain numbness or weakness. I also explained that the L4-5 level may continue to degenerate after laminectomy and may require fusion at the later date. Patient understands and agrees to proceed. Patient is in agreement.
[2024-06-20] MEDS: Cefazolin 2 GM in Syringe IV ×2 (13:26→21:42)
--- NOTE | 2024-06-20 13:30 | RAD_ITS ---
PROCEDURE: L4-L5 laminectomy. DATE OF EXAMINATION: June 20, 2024. INDICATION: Male, 78 years old. Herniated disc. FLUOROSCOPY TIME (if supplied): (5.4 seconds) minutes/seconds. 12.4 mGy. 2 fluoroscopic images were submitted. RAD/Spine 1 View Any Level IMPRESSION: Intraoperative imaging provided for L4-5 laminectomy. Electronically Signed: Mario Trujillo MD at 10:35 EST ,
[2024-06-20] MEDS: TRANEXAMIC ACID 1,000 MG in 0.9% Normal Saline (100mL Bag) 100 ML 440 MG IV ×2 (13:45→14:56)
[2024-06-20] MEDS: Bupivacaine Mpf 0.5% 30 ML VIAL (14:20)
[2024-06-20] MEDS: Dexamethasone IV Preserv Free 10 MG/ML VIAL OPERA.SITE (14:42)
[2024-06-20] MEDS: Lidocaine 1% (20 ml mdv) 20 ML Vial (15:14)
--- NOTE | 2024-06-20 15:23 | PCM.OPRPT ---
Operative Report (Standard) Operative Information Surgery/Procedure Performed: L4-5 laminectomy Surgeon: Hang Pool Date of Procedure: 06/20/24 Procedure Start Time: 14:01 Procedure Stop Time: 15:21 Pre-Operative Diagnosis: L4-5 stenosis, neurogenic claudication, right lower extremity radiculopathy, foot weakness Post-Operative Diagnosis: Same Select all DRAINS/GRAFTS/IMPLANTS that apply: None Type of Anesthesia: General Estimated Blood Loss: 30 cc Specimen collected: No Description of surgery: Preoperative diagnosis: L4-5 central lateral recess stenosis bilateral, neurogenic claudication, right lower extremity radiculopathy, right foot weakness Postoperative diagnosis: Same Name of procedure: L4-5 open laminectomy CPT 78682 Attending Surgeon: Dr. Hang Pool Estimated blood loss: 30 mL Anesthesia: General Indications: Patient is a 78-year-old gentleman who presented with low back pain and right lower extremity lesion, with difficulty walking distances and neurogenic claudication. MRI revealed severe L4-5 central and lateral recess stenosis bilaterally. All options of treatment were discussed which included continued nonoperative treatment measures like rest physical therapy, injections. After prolonged nonsurgical treatment and due to the developing weakness of the right foot, patient requested surgical intervention for laminectomy. All risks and benefits associated with the procedure were explained to the patient. The risks include but are not limited to infection, bleeding, injury to nerves and vessels, persistent paresthesia, incidental dural tear, recurrent disc herniation, spinal instability and need for fusion or other procedures in future, persistent pain, persistent weakness and numbness, etc. Procedure: The patient was identified in the preoperative holding suite using Unique patient identifiers. Skin was marked, consent was reviewed, and all questions were answered. The patient was then brought back to the operative room. A surgical timeout was performed to make sure correct procedure was being done on the correct patient and all operative room staff were on the same page. General endotracheal anesthesia was then given to the patient. The patient was then turned prone onto a Roberto table over a Clint frame. The back was prepped and draped in usual fashion. Preoperative antibiotic was given. A final timeout was then again done just before starting the procedure. An 18-gauge spinal needle was inserted and level was identified. An incision was then carried out approximately in the midline. Bovie was utilized to dissect through the subcutaneous tissue up to the fascia. The fascia was bovied at the spinous process. Subperiosteal dissection was carried out along the both side of the spinous process and the lamina. This dissection was stopped at the level of the medial capsule of the facet joint. Lateral edge of the pars was also identified. A [place] was then placed under the inferior edge of the lamina and a C-arm lateral view was repeated. The level was confirmed to be the L4-5 interspace. A Henry retractor of appropriate depth was then placed to provide retraction throughout the remainder of the surgery. A bone cutter was used to remove the spinous process. SPO bone scalpel was then utilized to first create a score along the area of the laminectomy. Care was taken to preserve at least 1 cm of bone from the lateral border of the pars. The bone scalpel was then advanced to perform the cuts along this score. The lamina was then removed with the help of rongeur. The flavum was utilized to protect the dura and superior articular process was carefully from the flavum. Partial medial facetectomy was performed to provide adequate lateral recess decompression. Superior portion of L5 lamina was also removed with help of Kerrisons. All of the flavum was eventually removed. Once decompression was adequately assessed with Jeannie in both L5 and L4 foramina bilaterally, irrigation was done with normal saline. Irrisept was kept in the wound for 1 minute and then rinsed with saline. 10 mg of preservative-free dexamethasone was then sprinkled over the dura and traversing nerve roots bilaterally. A small piece of Gelfoam was then placed over the bony window. The Henry retractor was then removed. And closure was done in layers, 0 Vicryl for the deep fascia, 2-0 Vicryl for subcutaneous tissue, and kellen for the skin. The deep fascial layer was closed in a watertight fashion with interrupted 0 Vicryl and augmented with #1 strata fix. The skin closure was augmented with Dermabond. 2 x 2 gauze was then placed over the wound covered with Tegaderm. The patient was then turned supine onto a hospital bed. The patient was extubated and taken to PACU in stable condition. The patient tolerated the procedure well and no complications occurred. Estimated blood loss for the entire surgery was 30 mL. No instrumentation was utilized in this case. No dural tear occurred in this case. I was present for the entirety of the case and performed the surgery myself. Identification Officer Kaycee Sanchez PA-C. My physician assistant women's rowing coach was a vital part of this case. They were important in appropriate retraction during the case, and protection of soft tissues during the procedure. Their intimate knowledge of the case and my steps aided in safe and expedient completion of the procedure as well as appropriate position of the patient during the surgery. They were also vital in assisting with closure under my direct supervision. Surgical Findings: See operative note Business Insurance Agent removable prosthodontist: Yes Central Service Supply Distributor: Kaycee Sanchez Tasks completed by engineer first assistant: Closing, Removing tissue, Hemostasis: Electrocautery and Retracting Complications Complications: No Procedures Musculoskeletal [id number]: Other Procedure See Report
--- NOTE | 2024-06-20 15:35 | PCM.POST.ANE ---
Anesthesia: Postop Eval I Current Vital Signs Temperature: 97.3 F Pulse Rate: 88 Blood Pressure: 147/75 Respiratory Rate: 16 Pulse Ox: 100 Oxygen Delivery Method: Room Air Assessment Airway patent: Yes Spontaneous unlabored respirations: Yes Mental status: Awake and Calm nausea: No Vomiting: No Anesthesia Complication: No Fluid Hydration Crystalloid volume administer (ml): 1,000 Total IV fluid infused: 1,000 Progress Note Anesthesia document: Postop Eval 1 completed: Yes
[2024-06-20] MEDS: Methocarbamol 500 MG Tablet 1000 MG PO ×2 (17:19→21:42)
--- NOTE | 2024-06-20 18:13 | POSTOPAN2_ITS ---
Anesthesia Postop Eval I Sum Postop Eval Completion status Anesthesia document: Postop Eval 1 completed: Yes Anesthesia Postop Eval I Summary Anesthesia Postop Eval I Summary: Anesthesia Postop Eval I: Assessment Summary Airway patent Yes 06/20/24 15:36 AGRICULTURAL PRODUCE PACKER.[email or web address] Spontaneous unlabored Yes 06/20/24 15:36 AGRICULTURAL PRODUCE PACKER.[email or web address] respirations Mental status Awake,Calm 06/20/24 15:36 AGRICULTURAL PRODUCE PACKER.SKOBY nausea No 06/20/24 15:36 AGRICULTURAL PRODUCE PACKER.SKOBY Vomiting No 06/20/24 15:36 AGRICULTURAL PRODUCE PACKER.SKOBY Anesthesia Postop Eval I: Fluid Summary Crystalloid volume administer 1,000 06/20/24 15:36 AGRICULTURAL PRODUCE PACKER.SKOBY (ml) Colloids volume administered ( ml) Blood Product volume administered (ml) Total IV fluid infused 1,000 06/20/24 15:36 AGRICULTURAL PRODUCE PACKER.SKOBY Anesthesia Postop Eval I: Summary Notes Anesthesia Complication No 06/20/24 15:36 AGRICULTURAL PRODUCE PACKER.SKOBGlynn Anesthesia Complication Comment: Post-operative progress note Anesthesia: Postop Eval II Evaluation Mental status: Awake and Calm Pain Level: 1 nausea: No Vomiting: No Complications Anesthesia Complication: No
--- NOTE | 2024-06-20 18:13 | PCM.POSTANE2 ---
Anesthesia Postop Eval I Sum Postop Eval Completion status Anesthesia document: Postop Eval 1 completed: Yes Anesthesia Postop Eval I Summary Anesthesia Postop Eval I Summary: Anesthesia Postop Eval I: Assessment Summary Airway patent Yes 06/20/24 15:36 TOWER AIR TRAFFIC CONTROL SPECIALIST.[email or web address] Spontaneous unlabored Yes 06/20/24 15:36 TOWER AIR TRAFFIC CONTROL SPECIALIST.SKOBY respirations Mental status Awake,Calm 06/20/24 15:36 TOWER AIR TRAFFIC CONTROL SPECIALIST.SKOBY nausea No 06/20/24 15:36 TOWER AIR TRAFFIC CONTROL SPECIALIST.SKOBY Vomiting No 06/20/24 15:36 TOWER AIR TRAFFIC CONTROL SPECIALIST.SKOBY Anesthesia Postop Eval I: Fluid Summary Crystalloid volume administer 1,000 06/20/24 15:36 TOWER AIR TRAFFIC CONTROL SPECIALIST.SKOBY (ml) Colloids volume administered ( ml) Blood Product volume administered (ml) Total IV fluid infused 1,000 06/20/24 15:36 TOWER AIR TRAFFIC CONTROL SPECIALIST.SKOBY Anesthesia Postop Eval I: Summary Notes Anesthesia Complication No 06/20/24 15:36 TOWER AIR TRAFFIC CONTROL SPECIALIST.SKOBGlynn Anesthesia Complication Comment: Post-operative progress note Anesthesia: Postop Eval II Evaluation Mental status: Awake and Calm Pain Level: 1 nausea: No Vomiting: No Complications Anesthesia Complication: No
--- NOTE | 2024-06-20 19:56 | PCM.PN.HOSP ---
Reason for Visit Reason for Visit: Diagnoses Encounter for other preprocedural examination (06/20/24) Subjective Subjective 70-year-old male history of gout, A-fib, coronary artery disease, hypertension, GERD presented [facility] 06/20/2024 for a L4-[address] Pool. Hospitalist consulted for postop medical management. Patient evaluated at bedside, reports he feels well and that his pain is significantly improved, he got up to go to the bathroom and did well with this. He has no new or acute complaints and overall feels well Objective Data Objective Data Vital Signs: Vital Signs Temp Pulse Resp BP Pulse Ox O2 Del Method O2 Flow Rate 97.4 F L 78 17 183/64 H 98 Room Air 4 06/20/24 19:01 06/20/24 19:01 06/20/24 19:01 06/20/24 19:01 06/20/24 19:01 06/20/24 19:01 06/20/24 16:15 Oxygen Flow Rate (L/min) 4 Oxygen Delivery Method Room Air Weight: 77 kg Body Mass Index (BMI) 24.3 Intake & Output: Intake and Output for Last 24 Hours 06/18/24 06/19/24 06/20/24 23:59 23:59 23:59 Intake Total 240 / 240 Output Total Balance 239 / 239 Lab / Micro Data 06/12/24 11:03 06/12/24 11:03 Labs: Laboratory Results - last 24 hr 06/20/24 11:34: POC Glucose 105 Micro: Microbiology 06/12/24 11:03 Swab (Method) Nasal Screen MRSA/MSSA - Final Physical Exam Narrative General: Alert, oriented, no apparent distress HEENT: Atraumatic, normocephalic Eyes: Anicteric, normal conjunctiva, extraocular movements grossly intact Neck: Supple Respiratory: Clear to auscultation bilaterally, normal respiratory effort Cardiovascular: Regular rate GI: Soft, nontender, nondistended Extremities: No edema Musculoskeletal: Moving all extremities Neuro: No overt focal neurological deficits Skin: No rashes appreciated Psych: Cooperative Assessment & Plan Assessment/Plan (1) CAD (coronary artery disease): QUALIFIERS: Coronary Disease-Associated Artery/Lesion type: [place] artery [place] vs. transplanted heart: [place] heart Associated angina: without angina Qualified Code(s): I25.10 - Atherosclerotic heart disease of [place] coronary artery without angina pectoris PLAN: Plan #Hx CAD -w/ previous PCI 2022 -Continue atorvastatin -Continue BB -Continue YANIRA -Resume aspirin and eliquis when cleared to do so by primary team #Lumbar stenosis -s/p L4-5 laminectomy w/ Dr. Pool 06/20/24 -Management per primary #Hypertension -Continue home medications #GERD -Continue PPI #Gout -Continue home allopurinol # History of cardiomyopathy -With most recent EF recovered at 50 to 55% -Follows with cardio on outpatient basis -Continue beta-pepe and YANIRA -Takes Lasix as needed -Presently has no complaints or evidence of fluid overload #DVT ppx: per primary, SCDs presently in place Audrey Burks MD Time spent in the patient's overall evaluation, decision-making process, review of diagnostic data, adjustment of management, discussion with other providers, nursing and ancillary staff involved in patient's care documentation, 21 Minutes Charges/Coding Visit Charges Office Visits / Consults: 33706 OV L3 Est 20min
[2024-06-20] MEDS: Allopurinol 100 MG Tablet PO (21:41)
[2024-06-20] MEDS: Senna/Docusate Sodium 1 Tablet 2 TABLET PO (21:41)
[2024-06-20] MEDS: Lisinopril 5 MG Tablet PO (21:41)
[2024-06-20] MEDS: Atorvastatin Calcium 10 MG Tablet PO (21:42)
[2024-06-20] MEDS: Carvedilol 6.25 MG Tablet PO (21:42)
[2024-06-20] MEDS: 0.9% Saline Lock 10 ML Syringe IV (21:45)
[2024-06-20] MEDS: HYDROcodone Bitartrate/Apap 5/325 Tablet PO (23:56)
[2024-06-21 02:53] VITALS: BP 128/87; PULSE 78; RESP 16; TEMP 36.7; O2SAT 96
[2024-06-21] MEDS: Cefazolin 2 GM in Syringe IV (06:01)
[2024-06-21 06:03] VITALS: BP 151/68; PULSE 84; RESP 16; TEMP 37.2; O2SAT 98
[2024-06-21 06:08] LABS: Hematocrit 36.5 % (40-54); Hemoglobin 12.2 g/dL (13.0-16.5); Mean Corp Hgb Conc 33.4 g/dL (32-36); Mean Corpuscular Hgb 30.2 pg (27.0-32.0); Mean Corpuscular Volume 90.3 fL (80-94); Mean Platelet Vol. 9.3 fl (6.2-12.0); Platelet Count 218 K/mm3 (150-450); RBC Distribution Width CV 14.8 % (11.6-14.6); RBC Distribution Width SD 48.4 fl (35.1-43.9); Red Blood Count 4.04 M/mm3 (4.6-6.2); White Blood Count 14.2 K/mm3 (4.4-11.0)
[2024-06-21 06:58] LABS: Anion Gap 7 (5-15); BUN 20 mg/dL (7-18); BUN/Creat Ratio 20.4 RATIO (10-20); Calcium,Total 9.1 mg/dL (8.5-10.1); Chloride 103 mmol/L (98-107); Creatinine, Serum 0.98 mg/dL (0.70-1.30); EST Glomerular Filtration Rate 79 mL/min (>60); Est Glom Filt Rate - Afr Amer 95 mL/min (>60); Estimated Creatinine Clearance 64.14 ml/min; Glucose 171 mg/dL (74-106); Potassium 4.7 mmol/L (3.5-5.1); Sodium Level 132 mmol/L (136-145)
[2024-06-21 07:41] VITALS: BP 155/81; PULSE 90; RESP 14; TEMP 36.4; O2SAT 100
[2024-06-21] MEDS: Methocarbamol 500 MG Tablet 1000 MG PO (07:43)
[2024-06-21] MEDS: Senna/Docusate Sodium 1 Tablet 2 TABLET PO (07:43)
[2024-06-21] MEDS: Carvedilol 6.25 MG Tablet PO (07:44)
[2024-06-21] MEDS: Lisinopril 5 MG Tablet PO (07:44)
[2024-06-21] MEDS: Allopurinol 100 MG Tablet PO (07:44)
[2024-06-21] MEDS: Ensure Surgery 237 ML LIQUID PO ×2 (07:54→14:00)
[2024-06-21 08:00] VITALS: O2SAT 98
--- NOTE | 2024-06-21 12:00 | CASEMGMT ---
RN CM BOILER OPERATOR CM?to room to meet with patient for initial transition planning/care coordination assessment. RN CM?introduced self and role at [facility]. Pt voices understanding and consents to assessment?at this time. Pt sitting up in chair in room in no distress at this time. Pt is A/O at this time and answers all questions appropriately. Care providers, pharmacy, and demographics verified/updated at this time. Strata:?2 Support person: , Azucena PCP: Dr Phelpsronal Specialists: Dr Pool-ortho, [facility]/Cardiology, Dr Seo-rheumatology Preferred Pharmacy: [facility] @ [facility]. Otherwise, goes to [facility], [place] Insurance: Novaled [facility] Prescription Benefit: yes LNOK: , Azucena. Daughter, Li. Son, Cezar. Living Arrangements: Lives w/ in ground-floor condo w/basement and one step to enter through the garage. Indep w/ADL's and IADL's prior to surgery. 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 Friend coming from [place] today and will be staying w/pt and his for awhile until she buys a new home. Friend can assist pt as needed when pt's is @ work or sleeping. Transportation:?Pt states drives self and states no transportation concerns at this time. also drives. DME: States has the following DME: Pt has a walker he has been using for the past couple of weeks d/t pain. He also has available: shower chair, grab bars, raised toilet seat, cane, cheese processor. Pt states no need for further DME at this time. HHC/SNF: No hx of SNF. Pt has had HHC in the past after knee and hip surgeries. Pt goes to [employer] to work out. He was doing this until about 3 weeks ago. Pt aware walking encouraged until he f/u with Dr Pool and then therapy can be further discussed at that time. Pt wishes to return home and states has no concerns with going home at time of discharge. CM?to follow for any further discharge planning/needs. Pt voices no further concerns/needs at this time. Advised pt to ask for CM?if any further questions/concerns/needs arise. Voices understanding. PLAN: Home Tiera GEORGES RN, CM
[2024-06-21] MEDS: Pantoprazole Sodium 20 MG Tablet PO (12:25)
[2024-06-21] MEDS: HYDROcodone Bitartrate/Apap 5/325 Tablet PO (12:26)
[2024-06-21 13:18] VITALS: BP 107/62; PULSE 87; RESP 14; TEMP 36.3; O2SAT 95
--- NOTE | 2024-06-21 13:25 | CASEMGMT ---
TC to [facility], they were already aware pt wanted meds delivered to room and are bringing them up now.
--- NOTE | 2024-06-21 15:12 | PN.ORTHO_ITS ---
Subjective Subjective Postop day 1 status post L4-5 laminectomy. Patient doing well. Cleared PT. Right lower show radiation of pain has resolved. Has incisional pain. Objective Data Objective Data Vital Signs: Vital Signs Temp Pulse Resp BP Pulse Ox O2 Del Method O2 Flow Rate 97.5 F L 90 14 155/81 H 98 Room Air 4 06/21/24 07:41 06/21/24 07:41 06/21/24 07:41 06/21/24 07:41 06/21/24 08:00 06/21/24 08:00 06/20/24 16:15 Oxygen Flow Rate (L/min) 4 Oxygen Delivery Method Room Air Weight: 169 lb 12.095 oz Body Mass Index (BMI) 24.3 Intake & Output: Intake and Output for Last 24 Hours 06/19/24 06/20/24 06/21/24 23:59 23:59 23:59 Intake Total 860 / 860 420 / 420 Output Total Balance 859 / 859 420 / 420 Lab / Micro Data 06/21/24 05:30 06/21/24 05:30 Labs: Laboratory Results - last 24 hr 06/21/24 05:30: WBC 14.2 H, RBC 4.04 L, Hgb 12.2 L, Hct 36.5 L, MCV 90.3, MCH 30.2, MCHC 33.4, RDW Std Deviation 48.4 H, RDW Coeff of Jarocho 14.8 H, Plt Count 218, MPV 9.3, Sodium 132 L, Potassium 4.7, Chloride 103, Carbon Dioxide 22.0, Anion Gap 7, BUN 20 H, Creatinine 0.98, Estim Creat Clear Calc 64.14, Est GFR (MDRD) Af Amer 95, Est GFR (MDRD) Non-Af 79, BUN/Creatinine Ratio 20.4 H, G lucose 171 H, Calcium 9.1 Micro: Microbiology 06/12/24 11:03 Swab (Method) Nasal Screen MRSA/MSSA - Final Radiography Diagnostic Testing: Radiology Impression Spine X-Ray 06/20/24 13:30 IMPRESSION: Intraoperative imaging provided for L4-5 laminectomy. Electronically Signed: Mario Trujillo MD at 10:35 EST , Physical Exam Narrative Dressing CDI. Neurologic bilateral lower extremity shows 5 x 5 power normal shows normal sensations or dermatomes, except right EHL grade 3 baseline. Assessment & Plan Assessment/Plan (1) Status post laminectomy: PLAN: Plan Postop day 1 status post L4-5 laminectomy. Patient cleared PT. Doing well. Will go home today. Follow-up in 2 weeks in clinic for staple removal. All questions answered.
== END 2024-06-21 16:32 | disposition home or self-care (01) ==
LOC: SDC 06-21 01:14 → MS3 06-21 01:14
PROVIDERS: Anesthesiology; Student in an Organized Health Care Education/Training Program; Admitting Provider Orthopaedic Surgery Orthopaedic Surgery of the Spine; PCP Family Medicine; Referring Provider Orthopaedic Surgery Orthopaedic Surgery of the Spine; Visit Provider Internal Medicine
PROC: (CPT 63030; principal; 2024-06-20 12:30)
DX: M48.062 Spinal stenosis, lumbar region with neurogenic claudication (principal); I48.91 Unspecified atrial fibrillation; I42.9 Cardiomyopathy, unspecified; M16.11 Unilateral primary osteoarthritis, right hip; M54.16 Radiculopathy, lumbar region; I25.10 Atherosclerotic heart disease of native coronary artery without angina pectoris; E78.2 Mixed hyperlipidemia; I10 Essential (primary) hypertension; R26.2 Difficulty in walking, not elsewhere classified; Z87.891 Personal history of nicotine dependence; M48.02 Spinal stenosis, cervical region; Z79.899 Other long term (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; Z79.01 Long term (current) use of anticoagulants; Z79.52 Long term (current) use of systemic steroids; K21.9 Gastro-esophageal reflux disease without esophagitis; M10.9 Gout, unspecified
CPT/HCPCS: 63047; 00630; 36415; 72020; 76000; 80048; 82962; 83735; 85025; 85027; 86703; 86706; 86708; 86803; 86850; 86900; 86901; 87077; 87081; 93005; 94668; 96365; 96376; 97162; 97166; 99221; A4216; G0378; J2405

== ENCOUNTER 2024-06-27 13:58 | Inpatient (IN) | payer MEDICARE, SELFPAY ==
[2024-06-27 13:58] VITALS: BP 102/65; PULSE 93; RESP 16; TEMP 36.2; O2SAT 99
--- NOTE | 2024-06-27 14:56 | EDS_ITS ---
HPI History of Present Illness Chief Complaint: Back Informant: spouse/S.O. Narrative Narrative: Patient had a laminectomy lumbar 1 week ago, pain has been gradually becoming more out of control to the point now where he states his legs feel heavy and weak and he has numbness in both feet. He has had symptoms of urinary retention that are worsening, and he has also been constipated due to the narcotics he is taking, he has been taking laxatives and occasionally is incontinent of some mild amount of diarrhea without knowing it. Surgery was here by Dr. Pool. Patient restarted his Eliquis 3 days after surgery, last dose was this morning. [facility] Medical History Wears hearing aid Loss of hearing Wears glasses Wears dentures History of steroid therapy Back pain Walker as ambulation aid Arthritis DDD (degenerative disc disease) Low iron Excessive bleeding High cholesterol Diverticulosis History of diverticulitis Former smoker Shortness of breath on exertion History of CHF (congestive heart failure) Leg cramps History of echocardiogram History of stress test Cardiology follow-up encounter Cervical radiculopathy Anemia Weight gain Edema Other cervical disc degeneration, mid-cervical region, unspecified level Bradycardia Lightheadedness Fatigue Presence of stent in coronary artery (~10/06/22) Atherosclerotic heart disease of [place] coronary artery without angina pectoris Dyslipidemia Cardiomyopathy SOB (shortness of breath) Snoring Erectile dysfunction Avascular necrosis Allergic rhinitis Diverticulosis of colon Benign neoplasm of colon Hepatomegaly PAD (peripheral artery disease) Essential (primary) hypertension Mixed hyperlipidemia Atrial fibrillation Prominent abdominal aortic pulsation Subclavian arterial stenosis Carotid stenosis, bilateral GERD (gastroesophageal reflux disease) CAD (coronary artery disease) Gout Osteoarthritis Chronic back pain Home Medications ?Medication ?Instructions ?Recorded ?Last Taken ?Type simvastatin 20 mg tablet 20 mg PO QPM cholesterol 12/09/17 06/19/24 History allopurinol 100 mg tablet 100 mg PO BID gout 09/07/22 06/19/24 History pantoprazole 20 mg tablet,delayed 20 mg PO DAILY reflux 09/07/22 06/20/24 History release melatonin 5 mg capsule 5 mg PO QHS sleep 09/10/22 06/19/24 History lactobacillus combination no.4 3 3,000 mmu cells PO DAILY 07/15/23 06/15/24 History billion cell capsule (Probiotic) magnesium oxide 500 mg capsule 500 mg PO DAILY 09/13/23 06/19/24 History multivitamin with iron-mineral 1 tab PO DAILY 09/13/23 06/15/24 History vitamin B complex 1 tab PO DAILY 09/13/23 Unknown History carvedilol 6.25 mg tablet 6.25 mg PO BID #180 tabs 01/04/24 06/20/24 Rx polyethylene glycol 3350 17 gram 17 g PO DAILY PRN CONSTIPATION 02/16/24 06/17/24 History oral powder packet (Miralax) apixaban 5 mg tablet (Eliquis) 5 mg PO BID blood thinner #180 tabs 03/12/24 06/15/24 Rx furosemide 40 mg tablet 40 mg PO DAILY PRN Swelling or 04/23/24 06/15/24 Rx weight gain #90 TABLETS lisinopril 5 mg tablet 5 mg PO BID #60 tabs 05/29/24 06/19/24 Rx aspirin 81 mg capsule 81 mg PO DAILY 06/11/24 06/15/24 History hydrocodone-acetaminophen 5-325mg 1 tab PO Q6H PRN PRN Pain Score 06/21/24 Unknown Rx 5mg-325mg 4-10 5 days #20 tabs methocarbamol 500 mg tablet 750 mg (1.5 x 500 mg) PO TID PRN 06/21/24 Unknown Rx pain/spasms #30 tabs sennosides 8.6 mg-docusate sodium 2 tab PO BID PRN constipation #30 06/21/24 Unknown Rx 50 mg tablet (Stimulant Laxative tabs Plus) Allergy/AdvReac Type Severity Reaction Status Date / Time indomethacin (From Indocin) AdvReac Intermediate Diarrhea Verified 06/27/24 14:0 1 meloxicam (From Mobic) AdvReac Intermediate Diarrhea Verified 06/27/24 14:01 spironolactone AdvReac Intermediate Dizziness Verified 06/27/24 14:01 and severe headaches Family History Mother CVA (cerebral vascular accident) Heart disease Hypertension CAD (coronary artery disease) Cancer kidney Father Cancer lung Sister Fibromyalgia Brother Cancer prostate Surgical History History of cardiac catheterization History of right-sided carotid endarterectomy (~12/26/23) History of radiofrequency ablation (RFA) for complex left atrial arrhythmia (~12/2022) Presence of coronary angioplasty implant and graft (~10/06/22) History of tonsillectomy and adenoidectomy S/P eye surgery S/P knee replacement S/P hip replacement S/P shoulder replacement Social History Smoking Status: Former smoker quit date: 07/18/71 pack-years: 10 how long ago did patient quit smokin alcohol intake: current alcohol intake frequency: a few times a week Alcohol type: beer substance use type: does not use caffeine: Yes Type: coffee Number of servings: 2 ROS ROS ED Constitutional Constitutional ED: Denies chills or fever(s) ENT ENT ED: Denies rhinorrhea or sore throat Cardiovascular Cardiovascular: Denies chest pain or orthopnea Respiratory/Chest Respiratory/Chest: Denies dyspnea or orthopnea Gastrointestinal Gastrointestinal: Reports constipation and fecal incontinence; Denies abdominal pain, nausea, rectal bleeding or vomiting Genitourinary Genitourinary ED: Reports other Details: + urinary retention ; Denies abdominal discomfort or urinary incontinence Musculoskeletal Musculoskeletal: Reports as per HPI and back pain; Denies neck pain Integumentary Reports other Details: low back surgical wound, no drainage ; Denies abscess or rash Neurologic Neurologic: Reports paresthesias RLE and LLE; Denies headache(s) or weakness EXAM Physical Exam Const Vital Signs: 06/27/24 13:58 06/27/24 15:58 06/27/24 16:53 Temperature 97.2 F L Temperature Source Oral Pulse Rate 93 73 71 Respiratory Rate 16 16 14 Blood Pressure 102/65 131/78 H 125/71 H Blood Pressure Mean 77 95 89 Pulse Ox 99 99 100 Oxygen Delivery Method Room Air Room Air Room Air 06/27/24 18:00 Temperature Temperature Source Pulse Rate 77 Respiratory Rate 16 Blood Pressure 130/76 H Blood Pressure Mean 94 Pulse Ox 98 Oxygen Delivery Method Room Air Positive well nourished and well developed General Appearance ED: well developed and NAD HEENT Negative for trauma or tenderness Eyes PERRL and EOMs intact bilaterally Neck full ROM and supple Resp normal respiratory effort GI normal to inspection, nondistended, normoactive bowel sounds, soft to palpation and non-tender Narrative: Perianal sensation is present but the patient has poor rectal tone Back/Spine normal to inspection Back/Spine Narrative: Lumbosacral surgical incision kellen intact clean dry, mild diffuse tenderness but nonspecific to the incision which has no erythema or dehiscence or drainage Lumbar Spine / Lower Back: ROM limited and paraspinal muscle tenderness Extremity normal to inspection, full ROM and no pedal edema Neuro oriented x3 and no sensory deficits noted Neuro Narrative: Patient has weakness with thigh flexion and knee flexion bilaterally, worse on the right. Distal strength is 5/5 throughout both sides. Decreased sensation on both feet worse on the right. Sensorium / Orientation: alert Motor Exam: clonus absent Deep Tendon Reflexes: Rt Patellar (L4): 0, Lt Patellar (L4): 0, Rt Ankle (S1): 0 and Lt Ankle (S1): 0 Deep Tendon Reflexes Back: Rt Patellar (L4): 0, Lt Patellar (L4): 0, Rt Ankle (S1): 0 and Lt Ankle (S1): 0 Plantar Reflex: Downgoing: bilateral (No response on right) Psych mental status grossly normal and thought process normal Skin no rashes or lesions noted Skin Narrative: Surgical incision lumbosacral back kellen intact no sign of infection see above MDM MDM MDM Narrative Medical decision making narrative: I am concerned this patient has cauda equina syndrome. I put a call out to Dr. Pool and ordered a STAT MRI as well as pain control for the patient, which helped. I spoke with Dr. Velasquez. We both agree the patient is at risk for expanding hematoma causing cauda equina syndrome. At his recommendation I also spoke with MRI, making a dermatology technician aware of the emergent nature of this case and to attempt to expedite imaging. Patient is requesting premedication due to claustrophobia, so Valium 5 mg will be given orally prior to the imaging. Otherwise the patient will be kept NPO. In the meantime we did place a Lopez catheter, patient had relief of his urinary retention, 1-200 cc urine came as a result, no blood. Urinalysis shows no infection. On my interpretation and in conjunction with consultation with Dr. Velasquez who came to see the patient, the MRI shows no hematoma or cauda equina syndrome, but instead shows a new L5 compression fracture. He recommends the patient be admitted will probably need rehab, and he will follow. He states at this time this does not appear to be operative. Lab Data Attestation: I reviewed the patient's lab results. Labs: Laboratory Results - last 24 hr 06/27/24 06/27/24 15:11 15:30 WBC 9.4 RBC 3.84 L Hgb 12.0 L Hct 34.5 L MCV 89.8 MCH 31.3 MCHC 34.8 RDW Std Deviation 47.3 H RDW Coeff of [place]ocho 14.6 Plt Count 265 MPV 9.0 Immature Gran % (Auto) 1.100 H Neut % (Auto) 70.3 H Lymph % (Auto) 18.0 L [place] % (Auto) 8.1 Eos % (Auto) 2.1 Baso % (Auto) 0.4 Absolute Neuts (auto) 6.6 Absolute Lymphs (auto) 1.70 Nucleated RBC % 0 Sodium 132 L Potassium 4.1 Chloride 101 Carbon Dioxide 23.0 Anion Gap 8 BUN 12 Creatinine 0.95 Estim Creat Clear Calc 66.17 Est GFR (MDRD) Af Amer 98 Est GFR (MDRD) Non-Af 81 BUN/Creatinine Ratio 12.6 Glucose 112 H Calcium 9.1 Urine Color Yellow Urine Clarity Clear Urine pH 8.0 Ur Specific [place] 1.010 Urine Protein Negative Urine Glucose (UA) Normal Urine Ketones 5 H Urine Occult Blood Negative Urine Nitrite Negative Urine Bilirubin Negative Urine Urobilinogen Normal Ur Leukocyte Esterase Negative Urine RBC 0 SEEN Urine WBC 0 SEEN Ur Squamous Epith Cells 0 SEEN Urine Bacteria 0 SEEN Urine Mucus 0 SEEN Radiography Diagnostic Testing: Clinical Impression(s) from Imaging Studies Lumbar Spine MRI 06/27/24 15:01 IMPRESSION: New/increased acute compression fracture L5 vertebral body. Interval decompressive laminectomy L4-5. No recurrent or residual disc extrusion. Multilevel spinal stenosis and bilateral neural foraminal narrowing as above otherwise unchanged. Electronically Signed: Kuldip Araujo MD at 18:21 EST Reading Location ID and State: [facility] / [place] Tel , Service support , Management Discussion w/another healthcare provider: Hospitalist and Machine Etcher (ortho spine Pool) Critical Care Time Critical Care Time: Yes Critical care time (excluding procedures): 30-74 minutes (37 min), Including time spent:, Discussing w/Patient &/or Family/Finishing Frame Runner, Discussing w/Consultants, Arranging Admission or Transfer and Performing Direct Patient Care at Bedside Discharge Plan Dx/Rx/DC Orders Clinical Impression: Intractable low back pain, Closed compression fracture of L5 vertebra, Acute urinary retention Disposition Disposition: Acute Care [facility]
[2024-06-27 15:00] VITALS: BMI 24.0
--- NOTE | 2024-06-27 15:01 | MRI_ITS ---
STUDY: MRI LUMBAR SPINE WITHOUT CONTRAST REASON FOR EXAM: Male, 78 years old. cauda equina syndrome, recent laminectomy TECHNIQUE: Standardized fat and water weighted pulse sequences were obtained in the sagittal and axial planes. COMPARISON: May 29, 2024 MR lumbar spine FINDINGS: T12-L1: Normal endplates. Normal disc height, hydration and morphology. Normal bilateral facet joints. Normal central canal and bilateral lateral recesses. Normal bilateral intervertebral neural foramina. Normal lumbar lordosis. There is no substantial scoliosis. Normal conus medullaris that terminates at the L1 level. L1-2: Normal endplates. Normal disc height, hydration and morphology. Normal bilateral facet joints. Normal central canal and bilateral lateral recesses. Normal bilateral intervertebral neural foramina. L2-3: Normal endplates. Normal disc height, hydration and morphology. Normal bilateral facet joints. Normal central canal and bilateral lateral recesses. Narrowed bilateral intervertebral neural foramina. L3-4: Normal endplates. Normal disc height, hydration and morphology. Hypertrophic bilateral facet joints. Mild trefoil type narrowing central canal and bilateral lateral recesses. Narrowed bilateral intervertebral neural foramina. L4-5: Interval decompressive laminectomy. Hypertrophic facets causing moderate pain of the neural foramina bilaterally. New diffuse bone marrow edema throughout the L5 vertebral body. No retropulsion. New/Increased mild central loss of height of L5 vertebral body. L5-S1: Normal endplates. Normal disc height, hydration and morphology. Hypertrophic bilateral facet joints. Normal central canal and bilateral lateral recesses. Narrowed bilateral intervertebral neural foramina. Normal visualized sacral ala. Normal visualized paraspinous soft tissue structures. MRI/Spine Lumbar (Routine) IMPRESSION: New/increased acute compression fracture L5 vertebral body. Interval decompressive laminectomy L4-5. No recurrent or residual disc extrusion. Multilevel spinal stenosis and bilateral neural foraminal narrowing as above otherwise unchanged. Electronically Signed: Kuldip Araujo MD at 18:21 EST ,
[2024-06-27] MEDS: Ondansetron 4 MG/2 ML Vial IV (15:16)
[2024-06-27] MEDS: HYDROmorphone 1 MG/ML Syringe IV (15:16)
[2024-06-27 15:19] LABS: Absolute Neutrophil Count 6.6 X10^3/uL (2.0-7.7); Basophil# 0.04 X10^3/uL; Basophil% 0.4 % (0-1); Eosinophils% 2.1 % (0-5); Hematocrit 34.5 % (40-54); Mean Corp Hgb Conc 34.8 g/dL (32-36); Mean Corpuscular Hgb 31.3 pg (27.0-32.0); Mean Corpuscular Volume 89.8 fL (80-94); Monocyte# 0.76 X10^3/uL; Monocyte% 8.1 % (0-10); NRBC Flagged by Analyzer 0 % (0-5); Neutrophil # 6.64 X10^3/uL (2.7-7.7); Neutrophil % 70.3 % (47-70); Platelet Count 265 K/mm3 (150-450); RBC Distribution Width CV 14.6 % (11.6-14.6); RBC Distribution Width SD 47.3 fl (35.1-43.9); Red Blood Count 3.84 M/mm3 (4.6-6.2); White Blood Count 9.4 K/mm3 (4.4-11.0)
[2024-06-27 15:46] LABS: Bacteria 0 SEEN /hpf (None Seen); Mucous, Urine 0 SEEN /hpf (<or=2+); Red Blood Cells-Urine 0 SEEN /hpf (0-5); Squamous Epithelial Cells - UA 0 SEEN /hpf (0-5); White Blood Cells 0 SEEN /hpf (0-5)
[2024-06-27 15:49] LABS: Color, Urine Yellow (Yellow); Glucose, Dipstick Normal (Normal); Ketone-Dipstick 5 mg/dl (Negative); Leukocyte Esterase-Dipstick Negative /ul (Negative); Nitrite-Dipstick Negative (Negative); Occult Blood-Urine Negative /ul (Negative); Protein-Dipstick Negative (Negative); Urine Bilirubin Dipstick Negative (Negative); Urine Clarity Clear (Clear); Urine Urobilinogen Normal (Normal)
[2024-06-27 15:58] VITALS: BP 131/78; PULSE 73; RESP 16; O2SAT 99
[2024-06-27 16:00] LABS: Anion Gap 8 (5-15); BUN 12 mg/dL (7-18); BUN/Creat Ratio 12.6 RATIO (10-20); Calcium,Total 9.1 mg/dL (8.5-10.1); Chloride 101 mmol/L (98-107); Creatinine, Serum 0.95 mg/dL (0.70-1.30); EST Glomerular Filtration Rate 81 mL/min (>60); Est Glom Filt Rate - Afr Amer 98 mL/min (>60); Estimated Creatinine Clearance 66.17 ml/min; Glucose 112 mg/dL (74-106); Potassium 4.1 mmol/L (3.5-5.1); Sodium Level 132 mmol/L (136-145)
[2024-06-27] MEDS: diazePAM 5 MG Tablet PO (16:49)
[2024-06-27 16:53] VITALS: BP 125/71; PULSE 71; RESP 14; O2SAT 100
[2024-06-27] MEDS: 0.9% Normal Saline (1000mL) 1,000 ML 100 ML IV (16:55)
--- NOTE | 2024-06-27 16:57 | ED.RN ---
Pt to MRI, out of dept. Dr Pool in to see pt immediately prior to leaving
--- NOTE | 2024-06-27 17:01 | PN.ORTHO_ITS ---
Subjective Subjective Shelton is 1 week status post L4-5 laminectomy done last Tuesday on 06/20/2024. Our office was called around 1:10 PM today the patient's who mentioned that patient is having urinary retention and constipation along with weakness and numbness in the legs. Patient has been on Eliquis which was stopped for surgery last week, and restarted 3 days after the surgery. His last dose was this morning. I immediately requested our office to have him come into the ER immediately. In the ER, I discussed with ER physician and recommended stat MRI due to concern for expanding hematoma given patient's Eliquis intake. I saw the patient as he was being wheeled out towards MRI. His pain is not better controlled with pain medication given in the ER so far. His mentions that he has been n.p.o. around 11 AM today. He has some Gatorade around 11 AM. He did not have breakfast. He has been constipated for at least 2 days and has had a small amount of bowel leakage. He attempted to urinate earlier today and only had some dribbling, and has not had satisfactory bladder evacuation since yesterday. On discussion with ER physician, it appears patient's rectal tone is weak. Objective Data Objective Data Vital Signs: Vital Signs Temp Pulse Resp BP Pulse Ox O2 Del Method 97.2 F L 71 14 125/71 H 100 Room Air 06/27/24 13:58 06/27/24 16:53 06/27/24 16:53 06/27/24 16:53 06/27/24 16:53 06/27/24 16:53 Oxygen Delivery Method Room Air Weight: 167 lb 1.766 oz Body Mass Index (BMI) 24.0 Lab / Micro Data 06/27/24 15:11 06/27/24 15:11 Labs: Laboratory Results - last 24 hr 06/27/24 15:11: WBC 9.4, RBC 3.84 L, Hgb 12.0 L, Hct 34.5 L, MCV 89.8, MCH 31.3, MCHC 34.8, RDW Std Deviation 47.3 H, RDW Coeff of [place] 14.6, Plt Count 265, MPV 9.0, Immature Gran % (Auto) 1.100 H, Neut % (Auto) 70.3 H, Lymph % (Auto) 18.0 L , [place] % (Auto) 8.1, Eos % (Auto) 2.1, Baso % (Auto) 0.4, Absolute Neuts (auto) 6.6, Absolute Lymphs (auto) 1.70, Nucleated RBC % 0, Sodium 132 L, Potassium 4.1, Chloride 101, Carbon Dioxide 23.0, Anion Gap 8, BUN 12, Creatinine 0.95, Estim Creat Clear Calc 66.17, Est GFR (MDRD) Af Amer 98, Est GFR (MDRD) Non-Af 81, BUN/Creatinine Ratio 12.6, Glucose 112 H, Calcium 9.1 06/27/24 15:30: Urine Color Yellow, Urine Clarity Clear, Urine pH 8.0, Ur Specific [place] 1.010, Urine Protein Negative, Urine Glucose (UA) Normal, Urine Ketones 5 H, Urine Occult Blood Negative, Urine Nitrite Negative, Urine Bilirubin Negative, Urine Urobilinogen Normal, Ur Leukocyte Esterase Negative, Urine RBC 0 SEEN, Urine WBC 0 SEEN, Ur Squamous Epith Cells 0 SEEN, Urine Bacteria 0 SEEN, Urine Mucus 0 SEEN Physical Exam Narrative On his way to the MRI, I was able to examine the patient momentarily. Patient has grade 4 strength in both lower extremities in all muscle groups. Assessment & Plan Assessment/Plan (1) Status post laminectomy: PLAN: Plan Considering sudden acute worsening weakness numbness in lower extremities, urinary retention and possible bowel incontinence, I suspect a clinical pattern of cauda equina syndrome. Stat MRI will be performed. I have asked OR to be available. I will review once MRI is complete. Discussed with patient's and patient.
[2024-06-27 18:00] VITALS: BP 130/76; PULSE 77; RESP 16; O2SAT 98
--- NOTE | 2024-06-27 18:24 | HP.PCM.HOS_ITS ---
HPI - General General Date of Admission: 06/27/24 Date of Service: 06/27/24 Chief Complaint: Worsening low back pain HPI Narrative TRINH FOX, is a 78 M who presented to [facility] ED on 06/27/2024 with worsening low back pain. Patient was recently hospitalized here from 06/20-06/22 for a L4-[address] Pool. He reportedly tolerated the procedure well with no intraoperative complications. He was discharged home on 06/22 with plan for outpatient PT. However patient significantly worsening low back pain over the past 2 to 3 days. His opiate medications at home did not seem to be helping at all. He then began to have more difficulty with urinating and began to feel more constipated. Because of this, he came back into the hospital for further evaluation. There initially was concern for possible cauda equina syndrome given his symptoms. He had a stat MRI lumbar spine done that did not show cauda equina syndrome but did show a new/increased acute compression fracture of the L5 vertebral body. Was evaluated by Dr. Pool in the ED as well who suspected that his pain and discomfort was due to this new compression fracture. Patient notably denied any falls or trauma since his recent discharge from the hospital. Dr. Pool recommended admission to medicine and noted he would follow along during this hospitalization but this would likely be nonoperative management. Hospitalist was then contacted for admission. I saw the patient at bedside in the ED, was present. Patient was laying back in bed and answering questions appropriately. He was laying back fairly comfortably and stated that the IV pain medication had been very helpful for improving his low back pain. He also stated that Lopez catheter placement had been helpful for lower abdominal discomfort. He did continue to have some pain with movement but denied any pain with laying still. Denies any fevers or chills. Denied any lightheadedness or dizziness. Denied any other acute symptoms currently. Will be admitted for further management. [facility] Medical History Wears hearing aid Loss of hearing Wears glasses Wears dentures History of steroid therapy Back pain Walker as ambulation aid Arthritis DDD (degenerative disc disease) Low iron Excessive bleeding High cholesterol Diverticulosis History of diverticulitis Former smoker Shortness of breath on exertion History of CHF (congestive heart failure) Leg cramps History of echocardiogram History of stress test Cardiology follow-up encounter Cervical radiculopathy Anemia Weight gain Edema Other cervical disc degeneration, mid-cervical region, unspecified level Bradycardia Lightheadedness Fatigue Presence of stent in coronary artery (~10/06/22) Atherosclerotic heart disease of [place] coronary artery without angina pectoris Dyslipidemia Cardiomyopathy SOB (shortness of breath) Snoring Erectile dysfunction Avascular necrosis Allergic rhinitis Diverticulosis of colon Benign neoplasm of colon Hepatomegaly PAD (peripheral artery disease) Essential (primary) hypertension Mixed hyperlipidemia Atrial fibrillation Prominent abdominal aortic pulsation Subclavian arterial stenosis Carotid stenosis, bilateral GERD (gastroesophageal reflux disease) CAD (coronary artery disease) Gout Osteoarthritis Chronic back pain Home Medications ?Medication ?Instructions ?Recorded ?Last Taken ?Type simvastatin 20 mg tablet 20 mg PO QPM cholesterol 12/09/17 06/19/24 History allopurinol 100 mg tablet 100 mg PO BID gout 09/07/22 06/19/24 History pantoprazole 20 mg tablet,delayed 20 mg PO DAILY reflux 09/07/22 06/20/24 History release melatonin 5 mg capsule 5 mg PO QHS sleep 09/10/22 06/19/24 History lactobacillus combination no.4 3 3,000 mmu cells PO DAILY 07/15/23 06/15/24 History billion cell capsule (Probiotic) magnesium oxide 500 mg capsule 500 mg PO DAILY 09/13/23 06/19/24 History multivitamin with iron-mineral 1 tab PO DAILY 09/13/23 06/15/24 History vitamin B complex 1 tab PO DAILY 09/13/23 Unknown History carvedilol 6.25 mg tablet 6.25 mg PO BID #180 tabs 01/04/24 06/20/24 Rx polyethylene glycol 3350 17 gram 17 g PO DAILY PRN CONSTIPATION 02/16/24 06/17/24 History oral powder packet (Miralax) apixaban 5 mg tablet (Eliquis) 5 mg PO BID blood thinner #180 tabs 03/12/24 06/15/24 Rx furosemide 40 mg tablet 40 mg PO DAILY PRN Swelling or 04/23/24 06/15/24 Rx weight gain #90 TABLETS lisinopril 5 mg tablet 5 mg PO BID #60 tabs 05/29/24 06/19/24 Rx aspirin 81 mg capsule 81 mg PO DAILY 06/11/24 06/15/24 History hydrocodone-acetaminophen 5-325mg 1 tab PO Q6H PRN PRN Pain Score 06/21/24 Unknown Rx 5mg-325mg 4-10 5 days #20 tabs methocarbamol 500 mg tablet 750 mg (1.5 x 500 mg) PO TID PRN 06/21/24 Unknown Rx pain/spasms #30 tabs sennosides 8.6 mg-docusate sodium 2 tab PO BID PRN constipation #30 06/21/24 Unknown Rx 50 mg tablet (Stimulant Laxative tabs Plus) Allergy/AdvReac Type Severity Reaction Status Date / Time indomethacin (From Indocin) AdvReac Intermediate Diarrhea Verified 06/27/24 14:01 meloxicam (From Mobic) AdvReac Intermediate Diarrhea Verified 06/27/24 14:01 spironolactone AdvReac Intermediate Dizziness Verified 06/27/24 14:01 and severe headaches Family History Mother CVA (cerebral vascular accident) Heart disease Hypertension CAD (coronary artery disease) Cancer kidney Father Cancer lung Sister Fibromyalgia Brother Cancer prostate Surgical History History of cardiac catheterization History of right-sided carotid endarterectomy (~12/26/23) History of radiofrequency ablation (RFA) for complex left atrial arrhythmia (~12/2022) Presence of coronary angioplasty implant and graft (~10/06/22) History of tonsillectomy and adenoidectomy S/P eye surgery S/P knee replacement S/P hip replacement S/P shoulder replacement Social History Smoking Status: Former smoker quit date: 07/18/71 pack-years: 10 how long ago did patient quit smokin alcohol intake: current alcohol intake frequency: a few times a week Alcohol type: beer substance use type: does not use caffeine: Yes Type: coffee Number of servings: 2 ROS Constitutional Constitutional: Denies chills, fatigue, fever(s) or weakness Cardiovascular Cardiovascular: Denies chest pain Respiratory/Chest Respiratory/Chest: Denies shortness of breath at rest Gastrointestinal Gastrointestinal: Reports constipation; Denies abdominal pain, diarrhea, nausea or vomiting Genitourinary Genitourinary: Reports difficulty urinating; Denies dysuria Musculoskeletal Musculoskeletal: Reports back pain Neurologic Neurologic: Denies dizziness, focal weakness, headache(s), numbness or paresthesias Vital Signs Vital Signs Vital Signs: 06/27/24 13:58 06/27/24 15:58 06/27/24 16:53 Temperature 97.2 F L Temperature Source Oral Pulse Rate 93 73 71 Respiratory Rate 16 16 14 Blood Pressure 102/65 131/78 H 125/71 H Blood Pressure Mean 77 95 89 Pulse Ox 99 99 100 Oxygen Delivery Method Room Air Room Air Room Air 06/27/24 18:00 Temperature Temperature Source Pulse Rate 77 Respiratory Rate 16 Blood Pressure 130/76 H Blood Pressure Mean 94 Pulse Ox 98 Oxygen Delivery Method Room Air Weight Weight: 75.8 kg Body Mass Index (BMI) 24.0 Physical Exam Const alert, oriented x3, no apparent distress and average body habitus Constitutional Narrative: Elderly male, mildly fatigued appearing, otherwise laying back comfortably in bed, conversing normally, in no acute distress. General Appearance: cooperative and comfortable HEENT normocephalic, head/scalp atraumatic, hearing grossly normal bilaterally, nasal mucous membranes and turbinates normal and moist oral mucous membranes Eyes PERRL, EOMs intact bilaterally and conjunctivae normal Neck full ROM Chest inspection of chest normal Resp normal respiratory effort, normal air movement, no use of accessory muscles and clear to auscultation bilaterally Cardio regular rate, regular rhythm, no murmurs and peripheral pulses 2+ throughout GI normal to inspection, nondistended, normoactive bowel sounds, soft to palpation, non-tender and non-distended Back/Spine Back/Spine Narrative: Mild tenderness to palpation in the mid low back diffusely. Did not attempt any motion. Extremity normal to inspection and no pedal edema Skin no rashes or lesions noted Neuro moves all extremities Speech: speech normal Psych mental status grossly normal Results Lab / Micro Data 06/27/24 15:11 06/27/24 15:11 Labs: Laboratory Results - last 24 hr 06/27/24 15:11: WBC 9.4, RBC 3.84 L, Hgb 12.0 L, Hct 34.5 L, MCV 89.8, MCH 31.3, MCHC 34.8, RDW Std Deviation 47.3 H, RDW Coeff of [place] 14.6, Plt Count 265, MPV 9.0, Immature Gran % (Auto) 1.100 H, Neut % (Auto) 70.3 H, Lymph % (Auto) 18.0 L , [place] % (Auto) 8.1, Eos % (Auto) 2.1, Baso % (Auto) 0.4, Absolute Neuts (auto) 6.6, Absolute Lymphs (auto) 1.70, Nucleated RBC % 0, Sodium 132 L, Potassium 4.1, Chloride 101, Carbon Dioxide 23.0, Anion Gap 8, BUN 12, Creatinine 0.95, Estim Creat Clear Calc 66.17, Est GFR (MDRD) Af Amer 98, Est GFR (MDRD) Non-Af 81, BUN/Creatinine Ratio 12.6, Glucose 112 H, Calcium 9.1 06/27/24 15:30: Urine Color Yellow, Urine Clarity Clear, Urine pH 8.0, Ur Specific [place] 1.010, Urine Protein Negative, Urine Glucose (UA) Normal, Urine Ketones 5 H, Urine Occult Blood Negative, Urine Nitrite Negative, Urine Bilirubin Negative, Urine Urobilinogen Normal, Ur Leukocyte Esterase Negative, Urine RBC 0 SEEN, Urine WBC 0 SEEN, Ur Squamous Epith Cells 0 SEEN, Urine Bacteria 0 SEEN, Urine Mucus 0 SEEN Imaging Radiology Impression Lumbar Spine MRI 06/27/24 15:01 IMPRESSION: New/increased acute compression fracture L5 vertebral body. Interval decompressive laminectomy L4-5. No recurrent or residual disc extrusion. Multilevel spinal stenosis and bilateral neural foraminal narrowing as above otherwise unchanged. Electronically Signed: Kuldip Araujo MD at 18:21 EST Reading Location ID and State: [facility] / [place] Tel , Service support , Assessment & Plan Assessment/Plan (1) Closed compression fracture of L5 vertebra: (2) Intractable low back pain: PLAN: Plan Patient is a 78-year-old male who presented [facility] ED on 06/27/2024 with worsening low back pain. 1. Acute L5 compression fracture in setting of recent L4-5 decompressive laminectomy, with intractable low back pain and acute debility ? Admit under inpatient status to [facility]. Orthopedic surgery and pain management consulted. PT/OT/case management consulted. S/p L4-[address] Pool on 06/20. Presented with worsening pain and there was initially concern for cauda equina syndrome; stat MRI lumbar spine showed no cauda equina but did show an acute L5 compression fracture. Per Dr. Pool, likely no surgical intervention will be required. Patient follows with Dr. Oliver with pain and had injections in the upper back and neck for chronic pain there with good results, and they would be interested in a low back pain injection if this was recommended. Will treat pain for now with scheduled Tylenol, p.o. oxycodone as needed and IV Dilaudid as needed. Bowel regimen with senna and MiraLAX as needed. 2. Concern for urinary retention ? Lopez catheter placed on admission with concern for retention. Only had 100 to 200 cc out with placement. Low concern for true retention, was presumed secondary to low back pain with L5 fracture as noted above. Will plan to remove Lopez prior to discharge. Chronic medical conditions: ? History of CAD with stenting, history of PAD, history of cardiomyopathy with recovered EF, hypertension, hyperlipidemia: Continue home aspirin, statin, Coreg, lisinopril. Takes p.o. Lasix as needed, no volume overload on admit, will hold at this time. ? Paroxysmal A-fib on Eliquis: In normal sinus rhythm on admit. Continue home beta-pepe and Eliquis. ? History of gout: Continue home allopurinol. ? GERD: Continue home PPI. DVT prophylaxis: Not indicated, on Eliquis CODE STATUS: Full code, verified Expected disposition: Likely SNF, 2 to 3 days Total clinical time spent by myself addressing the patient's medical issues, reviewing all the data, and collaborating with patient's care team: 55 minutes. Charges/Coding Visit Charges Inpatient E&M: 18163 Init Hosp L2
[2024-06-27 19:09] VITALS: BP 130/76; PULSE 77; RESP 16; TEMP 36.2; O2SAT 98
[2024-06-27 19:28] VITALS: BP 144/94; PULSE 62; RESP 16; TEMP 36.5; O2SAT 100
[2024-06-27 19:30] VITALS: BMI 23.3
[2024-06-27] MEDS: APIXABAN 5 MG TABLET PO (20:38)
[2024-06-27] MEDS: Acetaminophen 500 MG Tablet 1000 MG PO (20:38)
[2024-06-27] MEDS: Lisinopril 5 MG Tablet PO (20:38)
[2024-06-27] MEDS: Senna/Docusate Sodium 1 Tablet 2 TABLET PO (20:38)
[2024-06-27] MEDS: oxyCODONE 5 MG Tablet PO (20:39)
[2024-06-27] MEDS: Allopurinol 100 MG Tablet PO (20:48)
[2024-06-27] MEDS: MELATONIN 3 MG TABLET PO (20:50)
[2024-06-27] MEDS: Atorvastatin Calcium 10 MG Tablet PO (20:50)
[2024-06-28] VITALS (7 sets, daily range): BP systolic 87–141; BP diastolic 47–108; PULSE 72–89; RESP 16–18; TEMP 36.3–36.7; O2SAT 96–100
[2024-06-28] MEDS: oxyCODONE 5 MG Tablet PO ×2 (01:38→08:11)
[2024-06-28] MEDS: HYDROmorphone 0.5 MG/0.5 ML SYRINGE IV ×2 (03:04→09:32)
[2024-06-28 06:17] LABS: Hematocrit 32.2 % (40-54); Mean Corp Hgb Conc 34.2 g/dL (32-36); Mean Corpuscular Hgb 30.9 pg (27.0-32.0); Mean Corpuscular Volume 90.4 fL (80-94); Platelet Count 249 K/mm3 (150-450); RBC Distribution Width CV 14.5 % (11.6-14.6); RBC Distribution Width SD 48.3 fl (35.1-43.9); Red Blood Count 3.56 M/mm3 (4.6-6.2)
[2024-06-28] MEDS: Acetaminophen 500 MG Tablet 1000 MG PO ×2 (06:26→21:52)
[2024-06-28 06:44] LABS: Anion Gap 5 (5-15); BUN 13 mg/dL (7-18); BUN/Creat Ratio 14.1 RATIO (10-20); Calcium,Total 8.9 mg/dL (8.5-10.1); Chloride 104 mmol/L (98-107); Creatinine, Serum 0.92 mg/dL (0.70-1.30); EST Glomerular Filtration Rate 84 mL/min (>60); Est Glom Filt Rate - Afr Amer 102 mL/min (>60); Estimated Creatinine Clearance 68.33 ml/min; Glucose 102 mg/dL (74-106); Potassium 4.3 mmol/L (3.5-5.1); Sodium Level 134 mmol/L (136-145)
[2024-06-28] MEDS: Allopurinol 100 MG Tablet PO ×2 (08:07→21:44)
[2024-06-28] MEDS: Magnesium Chloride 64 MG Delay Rel.Tablet 128 MG PO (08:07)
[2024-06-28] MEDS: Aspirin 81 MG TAB.CHEW PO (08:07)
[2024-06-28] MEDS: Carvedilol 6.25 MG Tablet PO (08:07)
[2024-06-28] MEDS: Pantoprazole Sodium 20 MG Tablet PO (08:07)
[2024-06-28] MEDS: APIXABAN 5 MG TABLET PO ×2 (08:08→21:44)
[2024-06-28] MEDS: Lisinopril 5 MG Tablet PO (08:08)
[2024-06-28] MEDS: Senna/Docusate Sodium 1 Tablet 2 TABLET PO (08:09)
[2024-06-28] MEDS: Ensure Plus High Protein 120 ML LIQUID PO (08:11)
--- NOTE | 2024-06-28 08:30 | CASEMGMT ---
Addendum entered by Alexandria Briseno 06/28/24 11:29: SW met with pt and pt . Pt reports she would be interested in HHC if pt is not appropriate for a SNF. PT and are not interested in any other SNF than TCU. Pt feels that pt walked 230' because pain was under control by medication, whereas at home, pain is not controlled. Pt reports complications with bowel issues from pain meds and reports cyclical issues of pain impacting function either from back pain prohibiting movement or stomach pain from pain meds limiting function. Pt and would like to have consults today before deciding on HHC providers. RNCM updated. SW remains available to follow. CHEPE Carlson Addendum entered by Alexandria Briseno 06/28/24 09:56: TCU declined due to bed availability. Pt updated. Pt uncertain of new plan at d/c; would like to consult with and follow up with SW. CHEPE Carlson Original Note: Social Work- SW received notice that pt would like referral to TCU; referral completed. Pt updated. SW remains available to follow. CHEPE Carlson
[2024-06-28] MEDS: 0.9% Saline Lock 10 ML Syringe IV ×2 (09:33→11:20)
--- NOTE | 2024-06-28 10:09 | CASEMGMT ---
KEANU BO Assessment: Face to Face with pt for initial transition planning/care coordination assessment. KEANU BO introduced self and role at [facility] [place], pt voices understanding and consents to assessment. Pt is A&O x4 and answers all questions appropriately at this time. Care providers, pharmacy, and demographics verified/updated. Strata: 2 Admitting Dx: L5 compression FX w/ intractable pain PCP: Yaritza Specialists: Saulo, Header Operator; Ron, Ortho; pain management. Preferred Pharmacy: [facility] Insurance: [employer] [facility] Prescription Benefit: yes LNOK: , Daughter Living Arrangements: Pt lives with and a family friend in a condo with 1 step to enter. ADLs: Pt reports I at baseline with ADLs and IADLs, reports works out at 5x week. Transportation: Pt drives self and denies concerns with transportation. DME: Walker, Toilet riser. HHC/SNF:Denies Hx with SNF, previously used [facility] [place]. Pt states would like to go to TCU if possible at time of DC. SW walked in as KEANU BO was leaving, informed pt there are no rooms available on TCU. Pt requested SW to follow up when comes in to discuss other options. Pt states no further concerns/needs. CM to follow. Advised pt to ask CM if any further question/concerns/needs arise, voices understanding. Pt Goal: TBD Plan: TBD, follow therapy for recommendations. Etienne COLUNGA CM
[2024-06-28] MEDS: Dicyclomine 10 MG Capsule PO ×2 (11:14→16:15)
[2024-06-28] MEDS: Polyethylene Glycol 3350 17 GM PACKET PO (11:15)
[2024-06-28] MEDS: Ondansetron 4 MG/2 ML Vial IV (11:20)
--- NOTE | 2024-06-28 11:44 | CASEMGMT ---
Discharge Planning A list of HH providers including quality and resource use data and consistent with the patient's preferred geographic region, medical needs, and insurance network was created in [employer] Guide.? This list was provided to the RN ANUPAM. Josselin Han, Discharge Planning Asst.
--- NOTE | 2024-06-28 11:48 | CON.PCM.OR_ITS ---
HPI Consult Data Date of Consult: 06/28/24 HPI Narrative HPI Narrative: TRINH FOX, is a 78 M who presents with severe low back pain found to have L5 compression fracture. I saw the patient last night in ED and also this morning in 316 admitted to medicine. He underwent L4-5 laminectomy on 06/20/2024 and presented to the ED last night with complaints of increased pain, numbness weakness in legs, urinary retention. On MRI he was found to have L5 compression fracture without any cauda equina compression and only postsurgical changes. Today he is sitting up in the bed and has been able to walk with PT for good amount of distance. He is feeling nauseous likely from pain medication. He has also been constipated for 2 days. He is on multiple stool softeners. [facility] Medical History Wears hearing aid Loss of hearing Wears glasses Wears dentures History of steroid therapy Back pain Walker as ambulation aid Arthritis DDD (degenerative disc disease) Low iron Excessive bleeding High cholesterol Diverticulosis History of diverticulitis Former smoker Shortness of breath on exertion History of CHF (congestive heart failure) Leg cramps History of echocardiogram History of stress test Cardiology follow-up encounter Cervical radiculopathy Anemia Weight gain Edema Other cervical disc degeneration, mid-cervical region, unspecified level Bradycardia Lightheadedness Fatigue Presence of stent in coronary artery (~10/06/22) Atherosclerotic heart disease of [place] coronary artery without angina pectoris Dyslipidemia Cardiomyopathy SOB (shortness of breath) Snoring Erectile dysfunction Avascular necrosis Allergic rhinitis Diverticulosis of colon Benign neoplasm of colon Hepatomegaly PAD (peripheral artery disease) Essential (primary) hypertension Mixed hyperlipidemia Atrial fibrillation Prominent abdominal aortic pulsation Subclavian arterial stenosis Carotid stenosis, bilateral GERD (gastroesophageal reflux disease) CAD (coronary artery disease) Gout Osteoarthritis Chronic back pain Home Medications ?Medication ?Instructions ?Recorded ?Last Taken ?Type simvastatin 20 mg tablet 20 mg PO QPM cholesterol 12/09/17 06/19/24 History allopurinol 100 mg tablet 100 mg PO BID gout 09/07/22 06/19/24 History pantoprazole 20 mg tablet,delayed 20 mg PO DAILY reflux 09/07/22 06/20/24 History release melatonin 5 mg capsule 5 mg PO QHS sleep 09/10/22 06/19/24 History lactobacillus combination no.4 3 3,000 mmu cells PO DAILY 07/15/23 06/15/24 History billion cell capsule (Probiotic) magnesium oxide 500 mg capsule 500 mg PO DAILY 09/13/23 06/19/24 History multivitamin with iron-mineral 1 tab PO DAILY 09/13/23 06/15/24 History vitamin B complex 1 tab PO DAILY 09/13/23 Unknown History carvedilol 6.25 mg tablet 6.25 mg PO BID #180 tabs 01/04/24 06/20/24 Rx polyethylene glycol 3350 17 gram 17 g PO DAILY PRN CONSTIPATION 02/16/24 06/17/24 History oral powder packet (Miralax) apixaban 5 mg tablet (Eliquis) 5 mg PO BID blood thinner #180 tabs 03/12/24 06/15/24 Rx furosemide 40 mg tablet 40 mg PO DAILY PRN Swelling or 04/23/24 06/15/24 Rx weight gain #90 TABLETS lisinopril 5 mg tablet 5 mg PO BID #60 tabs 05/29/24 06/19/24 Rx aspirin 81 mg capsule 81 mg PO DAILY 06/11/24 06/15/24 History hydrocodone-acetaminophen 5-325mg 1 tab PO Q6H PRN PRN Pain Score 06/21/24 Unknown Rx 5mg-325mg 4-10 5 days #20 tabs methocarbamol 500 mg tablet 750 mg (1.5 x 500 mg) PO TID PRN 06/21/24 Unknown Rx pain/spasms #30 tabs sennosides 8.6 mg-docusate sodium 2 tab PO BID PRN constipation #30 06/21/24 Unknown Rx 50 mg tablet (Stimulant Laxative tabs Plus) Allergy/AdvReac Type Severity Reaction Status Date / Time indomethacin (From Indocin) AdvReac Intermediate Diarrhea Verified 06/27/24 14:01 meloxicam (From Mobic) AdvReac Intermediate Diarrhea Verified 06/27/24 14:01 spironolactone AdvReac Intermediate Dizziness Verified 06/27/24 14:01 and severe headaches Family History Mother CVA (cerebral vascular accident) Heart disease Hypertension CAD (coronary artery disease) Cancer kidney Father Cancer lung Sister Fibromyalgia Brother Cancer prostate Surgical History History of cardiac catheterization History of right-sided carotid endarterectomy (~12/26/23) History of radiofrequency ablation (RFA) for complex left atrial arrhythmia (~12/2022) Presence of coronary angioplasty implant and graft (~10/06/22) History of tonsillectomy and adenoidectomy S/P eye surgery S/P knee replacement S/P hip replacement S/P shoulder replacement Social History Smoking Status: Former smoker quit date: 07/18/71 pack-years: 10 how long ago did patient quit smokin alcohol intake: current alcohol intake frequency: a few times a week Alcohol type: beer substance use type: does not use caffeine: Yes Type: coffee Number of servings: 2 Vital Signs Vital Signs Vital Signs: 06/27/24 13:58 06/27/24 15:58 06/27/24 16:53 Temperature 97.2 F L Temperature Source Oral Pulse Rate 93 73 71 Pulse Strength Respiratory Rate 16 16 14 Respiratory Effort Respiratory Depth Respiratory Pattern Blood Pressure 102/65 131/78 H 125/71 H Blood Pressure Mean 77 95 89 Blood Pressure Source Blood Pressure Position Blood Pressure Location Pulse Ox 99 99 100 Oxygen Delivery Method Room Air Room Air Room Air 06/27/24 18:00 06/27/24 19:09 06/27/24 19:28 Temperature 97.2 F L 97.7 F L Temperature Source Oral Pulse Rate 77 77 62 Pulse Strength Respiratory Rate 16 16 16 Respiratory Effort Respiratory Depth Respiratory Pattern Blood Pressure 130/76 H 130/76 H 144/94 H Blood Pressure Mean 94 94 110 Blood Pressure Source Monitor Blood Pressure Position Supine Blood Pressure Location Right Arm Pulse Ox 98 98 100 Oxygen Delivery Method Room Air Room Air 06/27/24 20:43 06/27/24 22:00 06/28/24 01:40 Temperature 97.5 F L Temperature Source Oral Pulse Rate 78 Pulse Strength Normal (2+) Respiratory Rate 16 Respiratory Effort Normal Non-Labored Respiratory Depth Normal Respiratory Pattern Normal Blood Pressure 99/57 L Blood Pressure Mean 71 Blood Pressure Source Monitor Blood Pressure Position Semi-Fowlers Blood Pressure Location Right Arm Pulse Ox 97 Oxygen Delivery Method Room Air 06/28/24 06:27 06/28/24 07:00 06/28/24 08:42 Temperature 97.5 F L Temperature Source Oral Pulse Rate 78 Pulse Strength Respiratory Rate 16 Respiratory Effort Normal Respiratory Depth Normal Respiratory Pattern Normal Blood Pressure 92/72 Blood Pressure Mean 78 Blood Pressure Source Monitor Blood Pressure Position Semi-Fowlers Blood Pressure Location Right Arm Pulse Ox 98 Oxygen Delivery Method Room Air Room Air Room Air 06/28/24 08:42 06/28/24 08:42 06/28/24 11:40 Temperature 98.1 F 97.7 F L Temperature Source Oral Oral Pulse Rate 74 77 Pulse Strength Normal (2+) Respiratory Rate 16 16 Respiratory Effort Respiratory Depth Respiratory Pattern Blood Pressure 103/63 141/108 H Blood Pressure Mean 76 119 Blood Pressure Source Monitor Monitor Blood Pressure Position Semi-Fowlers Semi-Fowlers Blood Pressure Location Right Arm Right Arm Pulse Ox 99 96 Oxygen Delivery Method Room Air Room Air Weight Weight: 162 lb 7.691 oz Body Mass Index (BMI) 23.3 Physical Exam Narrative Dressing?CDI. Neurologic motion of lower extremities with 5 out of 5 follow-up shows normal sensations in all dermatomes. Lab / Micro Data 06/28/24 05:49 06/28/24 05:49 Labs: Laboratory Results - last 24 hr 06/27/24 15:11: WBC 9.4, RBC 3.84 L, Hgb 12.0 L, Hct 34.5 L, MCV 89.8, MCH 31.3, MCHC 34.8, RDW Std Deviation 47.3 H, RDW Coeff of [place] 14.6, Plt Count 265, MPV 9.0, Immature Gran % (Auto) 1.100 H, Neut % (Auto) 70.3 H, Lymph % (Auto) 18.0 L , [place] % (Auto) 8.1, Eos % (Auto) 2.1, Baso % (Auto) 0.4, Absolute Neuts (auto) 6.6, Absolute Lymphs (auto) 1.70, Nucleated RBC % 0, Sodium 132 L, Potassium 4.1, Chloride 101, Carbon Dioxide 23.0, Anion Gap 8, BUN 12, Creatinine 0.95, Estim Creat Clear Calc 66.17, Est GFR (MDRD) Af Amer 98, Est GFR (MDRD) Non-Af 81, BUN/Creatinine Ratio 12.6, Glucose 112 H, Calcium 9.1 06/27/24 15:30: Urine Color Yellow, Urine Clarity Clear, Urine pH 8.0, Ur Specific [place] 1.010, Urine Protein Negative, Urine Glucose (UA) Normal, Urine Ketones 5 H, Urine Occult Blood Negative, Urine Nitrite Negative, Urine Bilirubin Negative, Urine Urobilinogen Normal, Ur Leukocyte Esterase Negative, Urine RBC 0 SEEN, Urine WBC 0 SEEN, Ur Squamous Epith Cells 0 SEEN, Urine Bacteria 0 SEEN, Urine Mucus 0 SEEN 06/28/24 05:49: WBC 11.0, RBC 3.56 L, Hgb 11.0 L, Hct 32.2 L, MCV 90.4, MCH 30.9, MCHC 34.2, RDW Std Deviation 48.3 H, RDW Coeff of [place] 14.5, Plt Count 249, MPV 9.0, Sodium 134 L, Potassium 4.3, Chloride 104, Carbon Dioxide 25.0, Anion Gap 5, BUN 13, Creatinine 0.92, Estim Creat Clear Calc 68.33, Est GFR (MDRD) Af Amer 102, Est GFR (MDRD) Non-Af 84, BUN/Creatinine Ratio 14.1, Glucose 102, Calcium 8.9 Imaging Radiology Impression Lumbar Spine MRI 06/27/24 15:01 IMPRESSION: New/increased acute compression fracture L5 vertebral body. Interval decompressive laminectomy L4-5. No recurrent or residual disc extrusion. Multilevel spinal stenosis and bilateral neural foraminal narrowing as above otherwise unchanged. Electronically Signed: Kuldip Araujo MD at 18:21 EST Reading Location ID and State: [address] [place] [address] Tel , Service support , Assessment & Plan Assessment/Plan (1) Closed compression fracture of L5 vertebra: QUALIFIERS: Encounter type: initial encounter Qualified Code(s): S32.050A - Wedge compression fracture of fifth lumbar vertebra, initial encounter for closed fracture PLAN: Plan Again reviewed MRI done last night which shows acute compression fracture of L5. Again reviewed MRI findings with the patient. Compression fractures heal over 6 to 12 weeks timeframe with rest and analgesics. May benefit from pain management consultation with Dr. Oliver for pain control versus segment augmentation if needed. Of note patient is on Eliquis. Patient will see me for his scheduled 2-week follow-up next week for staple removal. Patient was in agreement. Charges/Coding Visit Charges Inpatient E&M: 38811 Init Hosp L3
--- NOTE | 2024-06-28 12:32 | CASEMGMT ---
Addendum entered by Ashlyn English 06/28/24 14:32: [facility] is able to accept pt for services. Susy to notify day of SOC when determined. Original Note: RN CM into pt room, pt agreeable to [facility]. He states he has had [facility] and would chose them again. Pt feels he only needs therapy. Pt denies need for list that was created by dc construction administrative assistant. DC Plan: [facility] pending pain mgmt consult. TC to Susy at [facility], referral made and made aware of pain mgmt c/s. Will await decision for acceptance.
--- NOTE | 2024-06-28 14:45 | NURSING ---
pt c/o abd cramping with n/v. medicated with zofran, pt stated he continues to c/o nausea. stated he has a kink in bowel. pt is having many bm's this afternoon. notified dr jordan of pt c/o nausea. pt stated that he did not want to have any ct scan, or x ray at this time. will continue to monitor.
--- NOTE | 2024-06-28 15:20 | PCM.CONS.GEN ---
Assessment & Plan Assessment/Plan (1) Closed compression fracture of L5 vertebra: QUALIFIERS: Encounter type: initial encounter Qualified Code(s): S32.050A - Wedge compression fracture of fifth lumbar vertebra, initial encounter for closed fracture (2) Compression fracture of vertebra: PLAN: Plan Mr. Kay recently underwent L4-L5 laminectomy on 06/20/2024. She was doing extremely well but a few days ago noticed severe worsening of low back pain that prevents him from ambulating getting out of bed. Even notice some urinary issues. He went to the ED for evaluation and was found to have L5 acute compression fracture. No evidence of cauda equina. Dr. Pool evaluated him in recommend some conservative efforts at this time and pain management consultation. I saw him today and agree with Dr. Pool's plan. We discussed the possibility of more aggressive treatment modalities such as kyphoplasty should his pain remain severe and debilitating and not improve with conservative measures. He has been managed with Tylenol, p.r.n. oxycodone and breakthrough Dilaudid IV. His pain has been improved with this treatment options he has been ambulating and doing quite well from that standpoint. He will need to work his way off the IV pain medication in order to be homegoing effectively. He is on Robaxin at home after the surgery but noted this flap particularly effective. He has not taken any muscle relaxants. I will start him on baclofen 5 mg t.i.d. p.r.n.. He has taken this previous to surgery and this was helping him quite a bit. This may help with some of the spasm pain related to the fracture. I discussed at great length treatment modalities for acute compression fractures ranging from medications to kyphoplasty and they are considerations there in. At this point in time we will pursue conservative treatment options. I discussed at great length the importance of maintaining bowel movements while taking opiate pain medications and to identify a regimen that works to resolve this issue. He expressed understanding. Consider TLSO bracing. I would like to see him within a week of discharge if able. He and his we will reach out to our office to schedule follow up. He is on apixaban Dictation software was used to assist with this note some some grammatical type of areas may be present. HPI Consult Data Date of Consult: 06/28/24 HPI Narrative Reason for Consultation: Low back pain HPI Narrative: TRINH KAY, is a 78 M who presents with low back pain in the setting of recent L4-L5 laminectomy on 06/20. Found to have L5 acute compression fracture on MRI without cauda equina findings. No fall or trauma was noted. His pain is predominantly in the low back and does not radiate down the legs to the feet. Pain is worse with movement and activity. He is able to get up and ambulate, especially with some pain medications support. He did note some constipation issues, but states that with the current bowel regimen he was able to have a bowel movement and was feeling better from the standpoint. Currently taking apixaban. For pain has been managed with tylenol 1000mg Q8hrs, PRN dilaudid, oxycodone PRN. [facility] Medical History Wears hearing aid Loss of hearing Wears glasses Wears dentures History of steroid therapy Back pain Walker as ambulation aid Arthritis DDD (degenerative disc disease) Low iron Excessive bleeding High cholesterol Diverticulosis History of diverticulitis Former smoker Shortness of breath on exertion History of CHF (congestive heart failure) Leg cramps History of echocardiogram History of stress test Cardiology follow-up encounter Cervical radiculopathy Anemia Weight gain Edema Other cervical disc degeneration, mid-cervical region, unspecified level Bradycardia Lightheadedness Fatigue Presence of stent in coronary artery (~10/06/22) Atherosclerotic heart disease of [place] coronary artery without angina pectoris Dyslipidemia Cardiomyopathy SOB (shortness of breath) Snoring Erectile dysfunction Avascular necrosis Allergic rhinitis Diverticulosis of colon Benign neoplasm of colon Hepatomegaly PAD (peripheral artery disease) Essential (primary) hypertension Mixed hyperlipidemia Atrial fibrillation Prominent abdominal aortic pulsation Subclavian arterial stenosis Carotid stenosis, bilateral GERD (gastroesophageal reflux disease) CAD (coronary artery disease) Gout Osteoarthritis Chronic back pain Home Medications ?Medication ?Instructions ?Recorded ?Last Taken ?Type simvastatin 20 mg tablet 20 mg PO QPM cholesterol 12/09/17 06/19/24 History allopurinol 100 mg tablet 100 mg PO BID gout 09/07/22 06/19/24 History pantoprazole 20 mg tablet,delayed 20 mg PO DAILY reflux 09/07/22 06/20/24 History release melatonin 5 mg capsule 5 mg PO QHS sleep 09/10/22 06/19/24 History lactobacillus combination no.4 3 3,000 mmu cells PO DAILY 07/15/23 06/15/24 History billion cell capsule (Probiotic) magnesium oxide 500 mg capsule 500 mg PO DAILY 09/13/23 06/19/24 History multivitamin with iron-mineral 1 tab PO DAILY 09/13/23 06/15/24 History vitamin B complex 1 tab PO DAILY 09/13/23 Unknown History carvedilol 6.25 mg tablet 6.25 mg PO BID #180 tabs 01/04/24 06/20/24 Rx polyethylene glycol 3350 17 gram 17 g PO DAILY PRN CONSTIPATION 02/16/24 06/17/24 History oral powder packet (Miralax) apixaban 5 mg tablet (Eliquis) 5 mg PO BID blood thinner #180 tabs 03/12/24 06/15/24 Rx furosemide 40 mg tablet 40 mg PO DAILY PRN Swelling or 04/23/24 06/15/24 Rx weight gain #90 TABLETS lisinopril 5 mg tablet 5 mg PO BID #60 tabs 05/29/24 06/19/24 Rx aspirin 81 mg capsule 81 mg PO DAILY 06/11/24 06/15/24 History hydrocodone-acetaminophen 5-325mg 1 tab PO Q6H PRN PRN Pain Score 06/21/24 Unknown Rx 5mg-325mg 4-10 5 days #20 tabs methocarbamol 500 mg tablet 750 mg (1.5 x 500 mg) PO TID PRN 06/21/24 Unknown Rx pain/spasms #30 tabs sennosides 8.6 mg-docusate sodium 2 tab PO BID PRN constipation #30 06/21/24 Unknown Rx 50 mg tablet (Stimulant Laxative tabs Plus) Allergy/AdvReac Type Severity Reaction Status Date / Time indomethacin (From Indocin) AdvReac Intermediate Diarrhea Verified 06/27/24 14:01 meloxicam (From Mobic) AdvReac Intermediate Diarrhea Verified 06/27/24 14:01 spironolactone AdvReac Intermediate Dizziness Verified 06/27/24 14:01 and severe headaches Family History Mother CVA (cerebral vascular accident) Heart disease Hypertension CAD (coronary artery disease) Cancer kidney Father Cancer lung Sister Fibromyalgia Brother Cancer prostate Surgical History History of cardiac catheterization History of right-sided carotid endarterectomy (~12/26/23) History of radiofrequency ablation (RFA) for complex left atrial arrhythmia (~12/2022) Presence of coronary angioplasty implant and graft (~10/06/22) History of tonsillectomy and adenoidectomy S/P eye surgery S/P knee replacement S/P hip replacement S/P shoulder replacement Social History Smoking Status: Former smoker quit date: 07/18/71 pack-years: 10 how long ago did patient quit smokin alcohol intake: current alcohol intake frequency: a few times a week Alcohol type: beer substance use type: does not use caffeine: Yes Type: coffee Number of servings: 2 Physical Exam Narrative Tenderness to percussion over the lumbar spine Surgical site wound C/D/I. Has tenderness over the lower lumbar spine. 5/5 strength in lower extremities. Normal sensation. Lab / Micro Data 06/28/24 05:49 06/28/24 05:49 Labs: Laboratory Results - last 24 hr 06/27/24 15:11: WBC 9.4, RBC 3.84 L, Hgb 12.0 L, Hct 34.5 L, MCV 89.8, MCH 31.3, MCHC 34.8, RDW Std Deviation 47.3 H, RDW Coeff of [place] 14.6, Plt Count 265, MPV 9.0, Immature Gran % (Auto) 1.100 H, Neut % (Auto) 70.3 H, Lymph % (Auto) 18.0 L, [place] % (Auto) 8.1, Eos % (Auto) 2.1, Baso % (Auto) 0.4, Absolute Neuts (auto) 6.6, Absolute Lymphs (auto) 1.70, Nucleated RBC % 0, Sodium 132 L, Potassium 4.1, Chloride 101, Carbon Dioxide 23.0, Anion Gap 8, BUN 12, Creatinine 0.95, Estim Creat Clear Calc 66.17, Est GFR (MDRD) Af Amer 98, Est GFR (MDRD) Non-Af 81, BUN/Creatinine Ratio 12.6, Glucose 112 H, Calcium 9.1 06/27/24 15:30: Urine Color Yellow, Urine Clarity Clear, Urine pH 8.0, Ur Specific [place] 1.010, Urine Protein Negative, Urine Glucose (UA) Normal, Urine Ketones 5 H, Urine Occult Blood Negative, Urine Nitrite Negative, Urine Bilirubin Negative, Urine Urobilinogen Normal, Ur Leukocyte Esterase Negative, Urine RBC 0 SEEN, Urine WBC 0 SEEN, Ur Squamous Epith Cells 0 SEEN, Urine Bacteria 0 SEEN, Urine Mucus 0 SEEN 06/28/24 05:49: WBC 11.0, RBC 3.56 L, Hgb 11.0 L, Hct 32.2 L, MCV 90.4, MCH 30.9, MCHC 34.2, RDW Std Deviation 48.3 H, RDW Coeff of [place] 14.5, Plt Count 249, MPV 9.0, Sodium 134 L, Potassium 4.3, Chloride 104, Carbon Dioxide 25.0, Anion Gap 5, BUN 13, Creatinine 0.92, Estim Creat Clear Calc 68.33, Est GFR (MDRD) Af Amer 102, Est GFR (MDRD) Non-Af 84, BUN/Creatinine Ratio 14.1, Glucose 102, Calcium 8.9 Imaging Radiology Impression Lumbar Spine MRI 06/27/24 15:01 IMPRESSION: New/increased acute compression fracture L5 vertebral body. Interval decompressive laminectomy L4-5. No recurrent or residual disc extrusion. Multilevel spinal stenosis and bilateral neural foraminal narrowing as above otherwise unchanged. Electronically Signed: Kuldip Araujo MD at 18:21 EST Reading Location ID and State: [facility] / [place] Tel , Service support ,
--- NOTE | 2024-06-28 15:51 | CHAPLAIN ---
Type of Pastoral Visit _x__ Initial Visit ___ Follow-up Visit ___ On-call Visit ___ General Patient Visit ___ Spiritual Assessment ___ Family Conference ___ Bereavement ___ Rapid Response ___ Code Blue ___ Other (describe below) Pastoral Care Referral From ___ Patient _x__ Family ___ Nurse ___ Physician ___ Press Tool Maker ___ Mash Filter Press Operator ___ Other (describe below) Sacrament/Intervention ___ Active listening ___ Anointing ___ Orthodox ___ Bereavement ___ Communion ___ Rose exploration ___ ___ Life review _x__ Prayer ___ Reconciliation ___ Sacrament of Sick _x__ Supportive presence ___ Wedding ___ Other (describe below) Pastoral Comments patient is resting quietly and is easily awakened to his name; spouse is at bedside; pt admits that he is having difficulty today resting and getting comfortable; pt had been in the hospital recently and is seeking more answers and relief; pt states that a prayer would be enough for right now; pt also had a visit from [place] [employer] [facility] Writing [facility] earlier and was pleased with that
--- NOTE | 2024-06-28 19:38 | PCM.PN.HOSP ---
Reason for Visit Reason for Visit: Worsening low back pain Subjective Subjective Patient states he is feeling better today other than abdominal cramping. He has not had a bowel movement in several days. Did appear constipated on imaging. At the time of my evaluation was awaiting repeat evaluation by Dr. Pool and by Dr. Oliver for pain management. Patient is passing flatus without any problem and feels like he should be having a bowel movement soon. Objective Data Objective Data Vital Signs: Vital Signs Temp Pulse Resp BP Pulse Ox O2 Del Method 97.4 F L 84 16 91/60 100 Room Air 06/28/24 16:06/28/24 16:01 06/28/24 16:01 06/28/24 16:01 06/28/24 16:01 06/28/24 16:01 Oxygen Delivery Method Room Air Weight: 73.7 kg Body Mass Index (BMI) 23.3 Intake & Output: Intake and Output for Last 24 Hours 06/26/24 06/27/24 06/28/24 23:59 23:59 23:59 Intake Total 1450 / 1450 Output Total 450 / 450 700 / 700 Balance -450 / -450 750 / 750 Lab / Micro Data 06/28/24 05:49 06/28/24 05:49 Labs: Laboratory Results - last 24 hr 06/28/24 05:49: WBC 11.0, RBC 3.56 L, Hgb 11.0 L, Hct 32.2 L, MCV 90.4, MCH 30.9, MCHC 34.2, RDW Std Deviation 48.3 H, RDW Coeff of Jarocho 14.5, Plt Count 249, MPV 9.0, Sodium 134 L, Potassium 4.3, Chloride 104, Carbon Dioxide 25.0, Anion Gap 5, BUN 13, Creatinine 0.92, Estim Creat Clear Calc 68.33, Est GFR (MDRD) Af Amer 102, Est GFR (MDRD) Non-Af 84, BUN/Creatinine Ratio 14.1, Glucose 102, Calcium 8.9 Physical Exam Const alert, oriented x3, average body habitus, healthy appearing and well nourished Constitutional Narrative: Older, white male, sitting up in bed with nursing at bedside, appeared slightly uncomfortable however exam benign, interacted appropriately, does not appear toxic HEENT head/scalp atraumatic and moist oral mucous membranes Head and Scalp: normocephalic Resp normal respiratory effort, no retractions, no use of accessory muscles and clear to auscultation bilaterally Auscultation: Negative for rales, rhonchi or wheezes Cardio regular rate, regular rhythm, S1 normal heart sound, S2 normal heart sound, no murmurs, no rub, no gallops and no clicks GI normal to inspection, nondistended, normoactive bowel sounds and soft to palpation GI Narrative: Bowel sounds are slightly hypoactive, mild diffuse tenderness Extremity no clubbing, cyanosis or edema Neuro oriented x3, moves all extremities and no focal motor deficits Speech: speech normal Psych Psych Narrative: Affect is slightly flat however patient makes good eye time intact answers questions appropriately and is pleasant Assessment & Plan Assessment/Plan (1) Acute urinary retention: (2) Closed compression fracture of L5 vertebra: QUALIFIERS: Encounter type: initial encounter Qualified Code(s): S32.050A - Wedge compression fracture of fifth lumbar vertebra, initial encounter for closed fracture (3) Intractable low back pain: (4) Status post laminectomy: PLAN: Plan Acute L5 compression fracture in the setting of recent L4-L5 decompressive laminectomy with intractable low back pain -MRI shows stability of a new L5 fracture -Pain medication per pain management -It does appear that kyphoplasty was offered and declined at this time -Patient overall did fairly well with therapy and is hoping to be able to go home however still is utilizing IV narcotics at that time -Will need reevaluated tomorrow Concern for urinary retention -Lopez was placed with only 100-200 out -Lopez to be discontinued today -Reevaluate urinary output tomorrow and through the evening -Urinating may be difficult due to constipation Constipation -Added MiraLAX 17 g twice daily -As needed stool softener Abdominal pain/nausea/vomiting -Patient has flatus and started having bowel movements - is concerned because he has a history of bowel obstruction--> I did offer CT of his abdomen pelvis but patient declined -Continue to watch clinically -As needed antiemetics -Hoping that as his bowels start to move this resolves -Encouraged antiemetics with pain medication as this could be contributing CAD/PAD/essential hypertension/hyperlipidemia/history of ischemic cardiomyopathy with recovered EF -Previous PCI -Continue aspirin -Continue home statin -Continue home Coreg -Continue home lisinopril -Takes as needed Lasix at home--> on hold at this time PAF -In sinus rhythm at this time -Continue home beta-pepe -Continue home Eliquis History of gout -Continue home allopurinol GERD -Continue home PPI DVT prophylaxis -Continue Eliquis CODE STATUS -Full code Charges/Coding Visit Charges Inpatient E&M: 06717 Subs Hosp L2
[2024-06-28] MEDS: Atorvastatin Calcium 10 MG Tablet PO (21:45)
[2024-06-28] MEDS: MELATONIN 3 MG TABLET PO (21:45)
[2024-06-28] MEDS: Baclofen 10 MG Tablet 5 MG PO (21:52)
[2024-06-29 04:00] VITALS: BP 126/72; PULSE 80; RESP 15; TEMP 36.6; O2SAT 98
[2024-06-29] MEDS: Baclofen 10 MG Tablet 5 MG PO (05:22)
[2024-06-29] MEDS: Acetaminophen 500 MG Tablet 1000 MG PO (05:22)
[2024-06-29] MEDS: Dicyclomine 10 MG Capsule PO ×2 (05:25→11:16)
[2024-06-29 07:31] LABS: Hematocrit 31.1 % (40-54); Hemoglobin 10.5 g/dL (13.0-16.5); Mean Corp Hgb Conc 33.8 g/dL (32-36); Mean Corpuscular Hgb 30.7 pg (27.0-32.0); Mean Corpuscular Volume 90.9 fL (80-94); Mean Platelet Vol. 8.9 fl (6.2-12.0); Platelet Count 240 K/mm3 (150-450); RBC Distribution Width CV 14.6 % (11.6-14.6); Red Blood Count 3.42 M/mm3 (4.6-6.2); White Blood Count 10.3 K/mm3 (4.4-11.0)
[2024-06-29 08:18] LABS: Anion Gap 7 (5-15); BUN 18 mg/dL (7-18); BUN/Creat Ratio 15.9 RATIO (10-20); Calcium,Total 9.2 mg/dL (8.5-10.1); Chloride 104 mmol/L (98-107); Creatinine, Serum 1.13 mg/dL (0.70-1.30); EST Glomerular Filtration Rate 67 mL/min (>60); Est Glom Filt Rate - Afr Amer 81 mL/min (>60); Estimated Creatinine Clearance 55.63 ml/min; Glucose 101 mg/dL (74-106); Potassium 4.3 mmol/L (3.5-5.1); Sodium Level 132 mmol/L (136-145)
[2024-06-29 09:22] VITALS: BP 98/64; PULSE 82; RESP 16; TEMP 36.7; O2SAT 99
[2024-06-29] MEDS: Aspirin 81 MG TAB.CHEW PO (09:25)
[2024-06-29] MEDS: Pantoprazole Sodium 20 MG Tablet PO (09:25)
[2024-06-29] MEDS: APIXABAN 5 MG TABLET PO (09:25)
[2024-06-29] MEDS: Allopurinol 100 MG Tablet PO (09:25)
[2024-06-29] MEDS: Lisinopril 5 MG Tablet PO (11:14)
[2024-06-29] MEDS: Carvedilol 6.25 MG Tablet PO (11:14)
[2024-06-29 11:18] VITALS: BP 123/75; PULSE 80; O2SAT 100
--- NOTE | 2024-06-29 11:57 | CASEMGMT ---
Addendum entered by Ashlyn English 06/29/24 12:29: KEANU BO into pt room, pt is aware that [facility] will see him on Tuesday. Pt is happy to be going home. Pt denies any further needs. Original Note: TC to [facility], spoke to Susy, HH will be out to see pt on Tuesday. She is aware pt is dc'ing today.
--- NOTE | 2024-06-29 12:07 | DCINST_ITS ---
Discharge Instructions Diet Discharge Diet: Low fat / Low cholesterol DC O2, CPAP, BIPAP needs Additional Home O2 Discharge instructions: No Dressing / Incision Weight Bearing Status: Weight bearing as tolerated Dressing / Incision Call your doctor if you observe: Fever of 101 or Higher, Shortness of breath, Dizziness, Swelling in the ankles and Chest pain Follow Up Care Test Results: Test results from this visit will be discussed in further detail at your follow- up appointment, if applicable. Discharge Plan Admission Admit Date/Time: 06/27/24 18:24 Primary Reason for Your Visit: acute back pain, compression fracture Attending Provider: Jneiffer Glass Primary Care Provider: Nolan Vigil Consulting Providers: Amadou Wade; Hang Pool; Juan Oliver; Janneth Nur Instructions Patient Instructions: Compression Fx Discharge Orders/Prescriptions Prescriptions: New oxycodone 5 mg Tablet 5 mg PO Q4H PRN PRN (Reason: Pain Score 4-10) 35 Days Qty: 30 0RF acetaminophen 325 mg capsule 650 mg PO Q6H PRN (Reason: fever or pain) Qty: 30 0RF Continued simvastatin 20 mg tablet 20 mg PO QPM Probiotic 3 billion cell capsule 3,000 mmu cells PO DAILY Rx Instructions: administer with a meal polyethylene glycol 3350 [Miralax] 17 gram powder in packet 17 g PO DAILY PRN (Reason: CONSTIPATION ) multivitamin with iron-mineral Tablet 1 tab PO DAILY vitamin B complex Tablet 1 tab PO DAILY magnesium oxide 500 mg capsule 500 mg PO DAILY aspirin 81 mg capsule 81 mg PO DAILY sennosides-docusate sodium [Stimulant Laxative Plus] 8.6-50 mg Tablet 2 tab PO BID PRN (Reason: constipation) Qty: 30 0RF methocarbamol 500 mg Tablet 750 mg PO TID PRN (Reason: pain/spasms) Qty: 30 0RF allopurinol 100 mg tablet 100 mg PO BID pantoprazole 20 mg tablet,delayed release (DR/EC) 20 mg PO DAILY melatonin 5 mg capsule 5 mg PO QHS carvedilol 6.25 mg tablet 6.25 mg PO BID Qty: 180 3RF Rx Instructions: must administer with a meal/food Eliquis 5 mg tablet 5 mg PO BID Qty: 180 11RF furosemide 40 mg tablet 40 mg PO DAILY PRN (Reason: Swelling or weight gain) Qty: 90 3RF lisinopril 5 mg tablet 5 mg PO BID Qty: 60 11RF Discontinued hydrocodone-acetaminophen 5-325 mg Tablet 1 tab PO Q6H PRN PRN (Reason: Pain Score 4-10) 5 Days Qty: 20 0RF Referrals / Follow Up: Hang Pool MD [Med Staff - Active Staff] - Within 2 Weeks Nolan Vigil MD [Primary Care Provider] - Within 1 Week Juan Oliver MD [Med Staff - Active Staff] - Within 2 Weeks Disposition Disposition (needs filled in before D/C Order can be placed): Home Health Service
--- NOTE | 2024-06-29 12:07 | PCM.DC.SUM ---
Providers Date of Admission: 06/27/24 Date of Discharge: 06/29/24 Primary Care Physician: Dr. Nolan Vigil MD Consultations 06/27/24 19:28 Consult: Orthopedics Routine Consulting Provider: Hang Pool Reason for Consult: L5 compression fx w/ recent surgery EMERGENT Consult: No MD Notified: Yes Date Notified: 06/27/24 Time Notified: 18:32 Method of Notification: in ER Consult: Pain Management Routine Consulting Provider: Juan Oliver Reason for Consult: L5 compression fx EMERGENT Consult: No MD Notified: Yes Date Notified: 06/28/24 Time Notified: 09:37 Method of Notification: office Reason For Visit: L5 COMPRESSION FX W/ INTRACTABLE PAIN AND Diagnosis Discharge Diagnosis (1) Acute urinary retention: Status: Acute Code(s): R33.8 - Other retention of urine (2) Closed compression fracture of L5 vertebra: Status: Acute Code(s): S32.050A - Wedge compression fracture of fifth lumbar vertebra, initial encounter for closed fracture Qualifiers: Encounter type: initial encounter Qualified Code(s): S32.050A - Wedge compression fracture of fifth lumbar vertebra, initial encounter for closed fracture (3) Intractable low back pain: Status: Acute Code(s): M54.59 - Other low back pain (4) Status post laminectomy: Status: Acute Code(s): Z98.890 - Other specified postprocedural states Medications at Discharge Home Medications simvastatin 20 mg tablet 20 mg PO QPM cholesterol 12/09/17 allopurinol 100 mg tablet 100 mg PO BID gout 09/07/22 pantoprazole 20 mg tablet,delayed release 20 mg PO DAILY reflux 09/07/22 melatonin 5 mg capsule 5 mg PO QHS sleep 09/10/22 lactobacillus combination no.4 3 billion cell capsule (Probiotic) 3,000 mmu cells PO DAILY 07/15/23 magnesium oxide 500 mg capsule 500 mg PO DAILY 09/13/23 multivitamin with iron-mineral 1 tab PO DAILY 09/13/23 vitamin B complex 1 tab PO DAILY 09/13/23 carvedilol 6.25 mg tablet 6.25 mg PO BID #180 tabs 01/04/24 polyethylene glycol 3350 17 gram oral powder packet (Miralax) 17 g PO DAILY PRN CONSTIPATION 02/16/24 apixaban 5 mg tablet (Eliquis) 5 mg PO BID blood thinner #180 tabs 03/12/24 furosemide 40 mg tablet 40 mg PO DAILY PRN Swelling or weight gain #90 TABLETS 04/23/24 lisinopril 5 mg tablet 5 mg PO BID #60 tabs 05/29/24 aspirin 81 mg capsule 81 mg PO DAILY 06/11/24 methocarbamol 500 mg tablet 750 mg (1.5 x 500 mg) PO TID PRN pain/spasms #30 tabs 06/21/24 sennosides 8.6 mg-docusate sodium 50 mg tablet (Stimulant Laxative Plus) 2 tab PO BID PRN constipation #30 tabs 06/21/24 acetaminophen 325 mg capsule 650 mg (2 x 325 mg) PO Q6H PRN fever or pain #30 caps 06/29/24 oxycodone 5 mg tablet 5 mg PO Q4H PRN PRN Pain Score 4-10 35 days #30 tabs 06/29/24 Hospital Course Operations None Procedures None Summary of Care Provided Minutes Spent on Discharge: 45 Hospital Course: Patient is a 78-year-old male with a past medical history as outlined was admitted through the ED on 06/27/2024 with a complaint of worsening lower back pain. He had recently had L4-L5 laminectomy with Dr. Pool was admitted from 06/20 to 06/22/2024. He did well after the surgery and was discharged on 06/22/2024 with plans for outpatient therapy. Patient however developed significantly worsening low back pain over 2 to 3 days prior to admission. His pain meds at home did not seem to be helping he was having difficulty urinating and began to feel more constipated so he came into the ED. There was concern for cauda equina syndrome given his symptoms but he had a stat MRI of the lumbar spine which did not show any evidence of this but did show an acute compression fracture of the L5 vertebral body which appeared to be new. He was evaluated by spine surgery in the ED and it was thought that his symptoms were due to this new compression fracture. He had not had any falls or trauma since his last discharge from the hospital. He was admitted and managed for debility and low back pain due to acute compression fracture. He had a Lopez catheter inserted which helped with the lower abdominal discomfort. His pain subsequently improved and the Lopez catheter was removed. He was seen by pain management and patient opted for conservative therapy now with pain meds and physical therapy and would follow-up with pain management to see if he needed a kyphoplasty. Patient felt much better and was able to ambulate with physical therapy. He was therefore discharged on 06/29/2024. He was given a prescription for p.o. oxycodone 5 mg every 4 hours as needed for total of 30 tablets for 5 days. He is follow-up with his primary care doctor and follow-up with pain management within 1 to 2 weeks. Of note OARRS score was checked and no red flags were seen. Patient seen and examined prior to discharge. He had no active complaints. Review of systems otherwise negative. Labs and vitals reviewed. Home medication reviewed and reconciled. Physical Exam Const alert, oriented x3 and no apparent distress General Appearance: cooperative, comfortable and well kempt Orientation / Consciousness: awake Exam Limitations: no limitations HEENT normocephalic, head/scalp atraumatic, hearing grossly normal bilaterally and moist oral mucous membranes Mouth: oral and palatal mucosa normal Eyes PERRL, EOMs intact bilaterally and conjunctivae normal Neck no lymphadenopathy and supple Resp normal respiratory effort, no retractions, no use of accessory muscles and clear to auscultation bilaterally Cardio regular rate, regular rhythm, S1 normal heart sound, S2 normal heart sound and no murmurs GI normal to inspection, nondistended, normoactive bowel sounds, soft to palpation, non-tender and non-distended Extremity normal to inspection, full ROM and no clubbing, cyanosis or edema Skin no rashes or lesions noted and no wounds Neuro oriented x3, CN's II-XII intact bilaterally, moves all extremities and no focal motor deficits Sensorium / Orientation: awake and alert Motor Exam: strength 5/5 throughout Psych affect normal Weight / BMI Weight Weight: 162 lb 7.691 oz Body Mass Index (BMI) 23.3 ABG / Lab / Microbiology Data 06/29/24 06:43 06/29/24 06:43 Laboratory: Laboratory Results - last 24 hr 06/29/24 06:43: WBC 10.3, RBC 3.42 L, Hgb 10.5 L, Hct 31.1 L, MCV 90.9, MCH 30.7, MCHC 33.8, RDW Std Deviation 49.0 H, RDW Coeff of Jarocho 14.6, Plt Count 240, MPV 8.9, Sodium 132 L, Potassium 4.3, Chloride 104, Carbon Dioxide 21.0, Anion Gap 7, BUN 18, Creatinine 1.13, Estim Creat Clear Calc 55.63, Est GFR (MDRD) Af Amer 81, Est GFR (MDRD) Non-Af 67, BUN/Creatinine Ratio 15.9, Glucose 101, Calcium 9.2 D/C Instructions Discharge Diet: Low fat / Low cholesterol Discharge Activity: Return to Normal Activity Weight Bearing Status: Weight bearing as tolerated Call your doctor if you observe: Fever of 101 or Higher, Shortness of breath, Dizziness, Swelling in the ankles and Chest pain DC O2, CPAP, BIPAP Needs Additional Home O2 Discharge instructions: No DC home with Oxygen: No Meaningful Use Info Meaningful Use Meaningful Use Diagnoses (Choose all that apply): None applicable Ischemic Stroke Statin Dosing Therapy Reference: STATIN DOSE THERAPY REFERENCE: * Patients > 75 years receive moderate or high dose statin therapy. * Patients 75 years or YOUNGER should receive HIGH intensity statin dose unless contraindicated. You will be required to document reason for non-treatment if statin daily dose does not meet guidelines. HIGH DOSE STATIN THERAPY DAILY Atorvastatin > than or = to 40 mg Rosuvastatin > than or = to 20 mg Amlodipine + Atorvastatin > than or = to 2.5/40 mg Ezetimibe + Simvastatin 10/80 mg Simvastatin 80mg Discharge Plan Admission Admit Date/Time: 06/27/24 18:24 Primary Reason for Your Visit: acute back pain, compression fracture Attending Provider: Jeniffer Glass Primary Care Provider: Nolan Vigil Consulting Providers: Amadou Wade; Hang Pool; Juan Oliver; Janneth Nur Instructions Patient Instructions: Compression Fx Discharge Orders/Prescriptions Prescriptions: New oxycodone 5 mg Tablet 5 mg PO Q4H PRN PRN (Reason: Pain Score 4-10) 35 Days Qty: 30 0RF acetaminophen 325 mg capsule 650 mg PO Q6H PRN (Reason: fever or pain) Qty: 30 0RF Continued simvastatin 20 mg tablet 20 mg PO QPM Probiotic 3 billion cell capsule 3,000 mmu cells PO DAILY Rx Instructions: administer with a meal polyethylene glycol 3350 [Miralax] 17 gram powder in packet 17 g PO DAILY PRN (Reason: CONSTIPATION ) multivitamin with iron-mineral Tablet 1 tab PO DAILY vitamin B complex Tablet 1 tab PO DAILY magnesium oxide 500 mg capsule 500 mg PO DAILY aspirin 81 mg capsule 81 mg PO DAILY sennosides-docusate sodium [Stimulant Laxative Plus] 8.6-50 mg Tablet 2 tab PO BID PRN (Reason: constipation) Qty: 30 0RF methocarbamol 500 mg Tablet 750 mg PO TID PRN (Reason: pain/spasms) Qty: 30 0RF allopurinol 100 mg tablet 100 mg PO BID pantoprazole 20 mg tablet,delayed release (DR/EC) 20 mg PO DAILY melatonin 5 mg capsule 5 mg PO QHS carvedilol 6.25 mg tablet 6.25 mg PO BID Qty: 180 3RF Rx Instructions: must administer with a meal/food Eliquis 5 mg tablet 5 mg PO BID Qty: 180 11RF furosemide 40 mg tablet 40 mg PO DAILY PRN (Reason: Swelling or weight gain) Qty: 90 3RF lisinopril 5 mg tablet 5 mg PO BID Qty: 60 11RF Discontinued hydrocodone-acetaminophen 5-325 mg Tablet 1 tab PO Q6H PRN PRN (Reason: Pain Score 4-10) 5 Days Qty: 20 0RF Referrals / Follow Up: Hang Pool MD [Med Staff - Active Staff] - 07/06/24 8:15 am Nolan Vigil MD [Primary Care Provider] - 07/03/24 2:20 pm Juan Oliver MD [Med Staff - Active Staff] - 07/03/24 12:00 pm Disposition Disposition (needs filled in before D/C Order can be placed): Home Health Service Charges/Coding Visit Charges Inpatient E&M: 08764 Disch Hosp >30min
[2024-06-29 13:21] VITALS: BP 119/73; PULSE 79; RESP 18; TEMP 36.8; O2SAT 95
== END 2024-06-29 14:00 | disposition home health service (06) | DRG 552 ==
LOC: ED 18:42 → MS3 18:45
PROVIDERS: Internal Medicine; Admitting Provider Hospitalist; Emergency Provider Emergency Medicine; PCP Family Medicine; Referring Provider Emergency Medicine; Visit Provider Student in an Organized Health Care Education/Training Program
DX: S32.050A Wedge compression fracture of fifth lumbar vertebra, initial encounter for closed fracture (principal); E78.2 Mixed hyperlipidemia; I11.0 Hypertensive heart disease with heart failure; I50.9 Heart failure, unspecified; I48.0 Paroxysmal atrial fibrillation; I25.10 Atherosclerotic heart disease of native coronary artery without angina pectoris; K21.9 Gastro-esophageal reflux disease without esophagitis; M10.9 Gout, unspecified; M54.50 Low back pain, unspecified; K59.00 Constipation, unspecified; R11.2 Nausea with vomiting, unspecified; Z79.01 Long term (current) use of anticoagulants; Z95.5 Presence of coronary angioplasty implant and graft; Z79.82 Long term (current) use of aspirin; R33.9 Retention of urine, unspecified; Z87.891 Personal history of nicotine dependence; Z79.899 Other long term (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; Z96.659 Presence of unspecified artificial knee joint; Z96.649 Presence of unspecified artificial hip joint; Z96.619 Presence of unspecified artificial shoulder joint; Z98.890 Other specified postprocedural states; R10.9 Unspecified abdominal pain
CPT/HCPCS: 36415; 51702; 72148; 80048; 81001; 85025; 85027; 94668; 97110; 97116; 97162; 97166; 97535; 99285; J7030; A4216; J2405

== ENCOUNTER → 2024-11-21 | Outpatient (CLI) | payer MEDICARE, SELFPAY ==
--- NOTE | 2024-11-21 13:15 | RAD_ITS ---
PROCEDURE: L/S SPINE MIN 4 VIEWS 11/21/2024 REASON FOR EXAM: LUMBAR SPONDYLOSIS TECHNIQUE: Five views; AP, bilateral oblique, lateral and coned-down L5-S1 view COMPARISON: 09/14/2024 FINDINGS: Interval vertebroplasty at L5 now noted. Lumbar vertebral bodies otherwise appear unchanged. Multilevel endplate changes, spondylosis again noted, not significantly changed. No malalignment. The L5-S1 disc space is not well evaluated on the current study and difficult to exclude possibility of interval disc space narrowing since 09/14/2024. If further concern for possible discitis, may consider MRI if no contraindication. Partially imaged left hip replacement again noted. No spondylolysis identified. Heavy appearing aortoiliac atherosclerotic calcification. RAD/L/S Spine Min 4 Views IMPRESSION: Interval vertebroplasty at L5 now noted. Lumbar vertebral bodies otherwise cristiano ear unchanged. Multilevel endplate changes, spondylosis again noted, not significantly changed. No malalignment. The L5-S1 disc space is not well evaluated on the current study and difficult t o exclude possibility of interval disc space narrowing since 09/14/2024. If further concern for possible discitis, may cons ider MRI if no contraindication. Reading Location: [id number]
== END | disposition home or self-care (01) ==
LOC: RAD 13:09
PROVIDERS: PCP Family Medicine; Referring Provider Anesthesiology; Visit Provider Anesthesiology
DX: M47.816 Spondylosis without myelopathy or radiculopathy, lumbar region (principal)
CPT/HCPCS: 72110

== ENCOUNTER → 2024-11-27 | Outpatient (CLI) | payer MEDICARE, SELFPAY ==
[2024-11-27 16:57] LABS: Absolute Lymphocyte Count 2.16 X10^3/uL (0.83-4.51); Absolute Neutrophil Count 7.6 X10^3/uL (2.0-7.7); Basophil# 0.04 X10^3/uL; Basophil% 0.4 % (0-1); Eosinophil# 0.07 X10^3/uL; Eosinophils% 0.7 % (0-5); Hematocrit 38.8 % (40-54); Hemoglobin 12.7 g/dL (13.0-16.5); Lymphocyte # 2.16 X10^3/ul (0.83-4.51); Lymphocyte % 20.2 % (19-41); Mean Corp Hgb Conc 32.7 g/dL (32-36); Mean Corpuscular Hgb 29.1 pg (27.0-32.0); Mean Platelet Vol. 10.5 fl (6.2-12.0); Monocyte# 0.81 X10^3/uL; Monocyte% 7.6 % (0-10); NRBC Flagged by Analyzer 0 % (0-5); Neutrophil # 7.57 X10^3/uL (2.7-7.7); Neutrophil % 70.6 % (47-70); Platelet Count 242 K/mm3 (150-450); RBC Distribution Width CV 14.7 % (11.6-14.6); RBC Distribution Width SD 48.2 fl (35.1-43.9); Red Blood Count 4.36 M/mm3 (4.6-6.2); White Blood Count 10.7 K/mm3 (4.4-11.0)
[2024-11-27 17:02] LABS: Erythrocyte Sedimentation Rate 34 mm/hr (0-20)
[2024-11-27 17:16] LABS: CRP < 3.00 mg/L (0.0-3.0)
== END | disposition home or self-care (01) ==
LOC: LAB 15:24
PROVIDERS: PCP Family Medicine; Referring Provider Anesthesiology; Visit Provider Anesthesiology
DX: M47.816 Spondylosis without myelopathy or radiculopathy, lumbar region (principal); M54.9 Dorsalgia, unspecified; Z98.890 Other specified postprocedural states
CPT/HCPCS: 36415; 85025; 85652; 86140

== ENCOUNTER → 2024-11-28 | Outpatient (CLI) | payer MEDICARE, SELFPAY ==
--- NOTE | 2024-11-28 09:57 | ECHOD_ITS ---
Reason For Study Reason For Study: MURMUR Procedure This was a 2D Doppler, Color Flow transthoracic echocardiogram. Exam performed in department. Left Ventricle Normal LV size. Mild concentric left ventricular hypertrophy. Severe generalized LV hypokinesis. LVEF estimated at 35%. Stage III diastolic dysfunction with elevated left atrial filling pressures. Right Ventricle Normal right ventricle. Atria There is moderate biatrial dilatation. Mitral Valve Mild diffuse mitral valve thickening. Moderate (2+) eccentric mitral valve insufficiency. Tricuspid Valve Right ventricular systolic pressure estimated to be 58 mmHg. Moderate (2+) tricuspid valve insufficiency. Aortic Valve Trisinus/trileaflet aortic valve. Moderate focal aortic valve calcification. Aortic sclerosis, no stenosis. Pulmonic Valve The pulmonic valve is not well visualized. Trivial pulmonic valve insufficiency. Great Vessels Moderately calcified aortic root. Pericardium/Pleural No pericardial effusion. MMode/2D Measurements & Calculations LVIDd: 5.4 cm IVSd: 1.2 cm LVOT diam: 2.0 cm LVIDs: 4.5 cm LVPWd: 0.97 cm LVOT area: 3.3 cm2 RVDd: 3.0 cm FS: 16.3 % Ao root diam: 3.0 cm LAV(MOD-bp): 72.7 ml LVAd ap4: 35.4 cm2 LA dimension: 4.6 cm LAV(MOD-bp) Indexed: 36.9 ml/m2 LVLd ap4: 8.6 cm LAV(MOD-sp2): 70.6 ml EDV(MOD-sp4): 119.5 ml LAV(MOD-sp4): 69.9 ml EDV(sp4-el): 124.0 ml LVAs ap4: 27.9 cm2 LVLs ap4: 7.8 cm ESV(MOD-sp4): 81.7 ml ESV(sp4-el): 84.5 ml EF(MOD-sp4): 31.6 % EF(sp4-el): 31.9 % LVAd ap2: 34.6 cm2 SV(MOD-sp4): 37.8 ml SV(MOD-sp2): 37.6 ml LVLd ap2: 8.5 cm SI(MOD-sp4): 19.2 ml/m2 SI(MOD-sp2): 19.1 ml/m2 EDV(MOD-sp2): 118.9 ml EDV(sp2-el): 119.8 ml LVAs ap2: 27.4 cm2 LVLs ap2: 7.8 cm ESV(MOD-sp2): 81.2 ml ESV(sp2-el): 81.3 ml EF(MOD-sp2): 31.6 % SV(sp4-el): 39.5 ml LA dimension(2D): 3.8 cm LA A4 area: 21.1 cm2 RA A4 area: 16.6 cm2 TAPSE: 1.6 cm Time Measurements MV dec time: 0.16 sec Doppler Measurements & Calculations MV E max akash: 109.8 cm/sec Lat Peak E' Akash: 6.8 cm/sec Med Peak E' Akash: 4.5 cm/sec MV A max akash: 37.4 cm/sec E/E' lat: 16.2 E/E' med: 24.7 MV E/A: 2.9 MV V2 max: 133.6 cm/sec MV P1/2t max akash: 128.3 cm/sec Ao V2 max: 123.3 cm/sec MV max P.1 mmHg MV P1/2t: 54.5 msec Ao max P.1 mmHg MV V2 mean: 55.3 cm/sec Ao V2 mean: 83.6 cm/sec MV mean P.6 mmHg MV dec slope: 689.2 cm/sec2 Ao mean P.3 mmHg MV V2 VTI: 25.5 cm MVA(P1/2t): 4.0 cm2 Ao V2 VTI: 26.7 cm AV (velocity ratio): 0.43 MVA(VTI): 1.5 cm2 VANESA(I,D): 1.4 cm2 VANESA(V,D): 1.4 cm2 LV V1 max: 52.7 cm/sec SV(LVOT): 37.2 ml PA V2 max: 68.3 cm/sec LV V1 max P.1 mmHg PA V2 mean: 47.6 cm/sec LV V1 mean P.53 mmHg LV V1 mean: 33.2 cm/sec LV V1 VTI: 11.4 cm PI end-d akash: 108.1 cm/sec TR max akash: 363.9 cm/sec TR max P.0 mmHg ECHO/Echo Complete Interpretation Summary Mild concentric left ventricular hypertrophy. Severe generalized LV hypokinesis. LVEF estimated at 35%. Stage III diastolic d ysfunction with elevated left atrial filling pressures. There is moderate biatrial dilatation. Moderate (2+) tricuspid valve insufficiency. Right ventricular systolic pressur e estimated to be 58 mmHg. Moderate (2+) eccentric mitral valve insufficiency. Aortic sclerosis, no stenosis. Moderately calcified aortic root. Ordering Physician: Karine Brasher Referring Physician: Michael Ko Chi Performed By: Dora Akins RDCS, RVT
== END | disposition home or self-care (01) ==
LOC: CVS 09:37
PROVIDERS: PCP Family Medicine Geriatric Medicine; Referring Provider Physician Assistant Medical; Visit Provider Physician Assistant Medical
DX: I34.0 Nonrheumatic mitral (valve) insufficiency (principal)
CPT/HCPCS: 93306

== ENCOUNTER → 2024-11-29 | Outpatient (CLI) | payer MEDICARE, SELFPAY ==
[2024-11-29 15:58] LABS: Anion Gap 12 (5-15); BUN 21 mg/dL (4-19); BUN/Creat Ratio 21.8 RATIO (10-20); Calcium,Total 9.2 mg/dL (7.6-11.0); Carbon Dioxide 21.5 mmol/L (21.0-32.0); Chloride 104 mmol/L (98-108); Creatinine, Serum 0.95 mg/dL (0.70-1.20); EST Glomerular Filtration Rate 81 (>60); Glucose 86 mg/dL (70-99); Potassium 4.2 mmol/L (3.3-5.1); Pro- Brain NATRIURETIC PEPTIDE 4979 pg/mL (<=1800); Sodium Level 137 mmol/L (133-145)
== END | disposition home or self-care (01) ==
LOC: LAB 14:15
PROVIDERS: PCP Family Medicine Geriatric Medicine; Referring Provider Internal Medicine Cardiovascular Disease; Visit Provider Internal Medicine Cardiovascular Disease
DX: R06.02 Shortness of breath (principal); R14.0 Abdominal distension (gaseous)
CPT/HCPCS: 36415; 80048; 83880

== ENCOUNTER → 2024-12-11 | Outpatient (CLI) | payer MEDICARE, SELFPAY ==
[2024-12-11 09:36] LABS: Absolute Lymphocyte Count 2.81 X10^3/uL (0.83-4.51); Absolute Neutrophil Count 4.7 X10^3/uL (2.0-7.7); Basophil# 0.06 X10^3/uL; Basophil% 0.7 % (0-1); Eosinophil# 0.07 X10^3/uL; Eosinophils% 0.8 % (0-5); Hematocrit 38.4 % (40-54); Hemoglobin 12.6 g/dL (13.0-16.5); Lymphocyte # 2.81 X10^3/ul (0.83-4.51); Mean Corp Hgb Conc 32.8 g/dL (32-36); Mean Corpuscular Hgb 28.9 pg (27.0-32.0); Mean Corpuscular Volume 88.1 fL (80-94); Mean Platelet Vol. 9.9 fl (6.2-12.0); Monocyte% 7.3 % (0-10); NRBC Flagged by Analyzer 0 % (0-5); Neutrophil % 56.8 % (47-70); Platelet Count 253 K/mm3 (150-450); RBC Distribution Width CV 14.7 % (11.6-14.6); RBC Distribution Width SD 47.5 fl (35.1-43.9); Red Blood Count 4.36 M/mm3 (4.6-6.2); White Blood Count 8.3 K/mm3 (4.4-11.0)
[2024-12-11 10:15] LABS: ALB/GLOB Ratio 1.3 RATIO (0.9-2.4); AST(SGOT) 23 U/L (<=37); Alanine Aminotransfer ALT/SGPT 15 U/L (<=46); Albumin, Serum 4.1 g/dL (3.4-4.8); Alkaline Phosphatase 99 U/L (40-129); Anion Gap 12 (5-15); BUN 21 mg/dL (4-19); Calcium,Total 9.5 mg/dL (7.6-11.0); Carbon Dioxide 23.6 mmol/L (21.0-32.0); Chloride 100 mmol/L (98-108); Cholesterol 165 mg/dL (<=200); Creatinine, Serum 1.01 mg/dL (0.70-1.20); EST Glomerular Filtration Rate 76 (>60); Globulin 3.1 g/dL (2.2-4.2); Glucose 104 mg/dL (70-99); Hepatitis C Antibody Nonreactive (Nonreactive); High Density Lipoprotein 48 mg/dL; Low Density Lipoprotein Calc. 97 mg/dL; Potassium 4.6 mmol/L (3.3-5.1); Protein, Total 7.2 g/dL (5.9-8.4); Sodium Level 136 mmol/L (133-145); Total Bilirubin 0.46 mg/dL (0.00-1.30); Triglycerides 101 mg/dL; Uric Acid 4.9 mg/dL (3.5-7.2); Very Low Density Lipoprotein 20 mg/dL (5-40); Vitamin D,25 Hydroxy 39.2 ng/mL (30-100); cholesterol:hdl ratio screen 3.44
== END | disposition home or self-care (01) ==
LOC: LAB 08:33
PROVIDERS: PCP Family Medicine Geriatric Medicine; Referring Provider Family Medicine Geriatric Medicine; Visit Provider Family Medicine Geriatric Medicine
DX: E78.5 Hyperlipidemia, unspecified (principal); E87.6 Hypokalemia; Z13.89 Encounter for screening for other disorder; E55.9 Vitamin D deficiency, unspecified; M10.9 Gout, unspecified
CPT/HCPCS: 36415; 80053; 80061; 82306; 84443; 84550; 85025; 86803

== ENCOUNTER → 2024-12-12 | Outpatient (CLI) | payer MEDICARE, SELFPAY ==
--- NOTE | 2024-12-12 12:34 | CDU_ITS ---
Reason For Study Reason For Study: HX Rt CCA/ICA CEA Rt. Velocities/BP Lt. Velocities/BP Prox CCA 113.9/13.0 cm/sec. Prox CCA 80.6/21.6 cm/sec. Mid CCA 111.1/14.5 cm/sec. Mid CCA 159.7/30.1 cm/sec. Dist CCA 94.9/11.9 cm/sec. Dist CCA 180.4/30.1 cm/sec. Prox ICA 121.7/29.9 cm/sec. Prox ICA 132.4/24.8 cm/sec. Mid ICA 123.5/30.3 cm/sec. Mid ICA 93.9/22.2 cm/sec. Dist ICA 96.1/24.8 cm/sec. Dist ICA 104.8/20.0 cm/sec. Rt. ICA/CCA = 1.1. Lt. ICA/CCA = 0.8. Prox ECA 87.7/0.0 cm/sec. Prox ECA 265.2/6.3 cm/sec. Rt. Vert. 33.1/6.0 cm/sec. Lt. Vert. 57.2/14.2 cm/sec. Right Extracranial There is heterogeneous, smooth atherosclerotic plaque noted in the right common carotid artery. There is heterogeneous, smooth atherosclerotic plaque noted in the right internal carotid artery. There is heterogeneous, irregular atherosclerotic plaque noted in the right external carotid artery. Antegrade flow is noted in the right vertebral artery. Left Extracranial There is heterogeneous, irregular atherosclerotic plaque noted in the left common carotid artery. The atherosclerotic plaque causes acoustic shadowing. There is heterogeneous, irregular atherosclerotic plaque noted in the left internal carotid artery. The atherosclerotic plaque causes acoustic shadowing. There is heterogeneous, irregular atherosclerotic plaque noted in the left external carotid artery. Antegrade flow is noted in the left vertebral artery. Procedure Carotid Duplex [id number]. This is a Carotid Duplex examination using B-mode, color flow and specral Doppler. The exam was diagnostic. Exam performed in department. VL/Carotid Duplex Ultrasound Interpretation Summary Mild (<50%) stenosis right extracranial internal carotid. Moderate (50-69%) stenosis left extracranial internal carotid. Patent and antegrade vertebrals bilaterally. Ordering Physician: Phoebe Troncoso Referring Physician: Michael Ko Chi Performed By: Soren Santacruz RVT
== END | disposition home or self-care (01) ==
PROVIDERS: PCP Family Medicine Geriatric Medicine; Referring Provider Physician Assistant; Visit Provider Physician Assistant
DX: I65.23 Occlusion and stenosis of bilateral carotid arteries (principal); I77.1 Stricture of artery
CPT/HCPCS: 93880

== ENCOUNTER → 2024-12-13 | Outpatient (CLI) | payer MEDICARE, SELFPAY ==
--- NOTE | 2024-12-13 12:34 | BD_ITS ---
PROCEDURE: DEXA BONE DENSITY STUDY 12/13/2024 REASON FOR EXAM: M, age 79 y/o . Postmenopausal. TECHNIQUE: DXA scan of sites with data reported below. REFERENCE LINKS: [facility] Adult Positions COMPARISON: None FINDINGS: BMD and T-SCORES Lumbar spine: 1.112 g/cm2, T-score 0.2 Levels: L1 through L4 Right femoral neck: 0.710 g/cm2, T-score -1.6 Femoral neck comparison data not recommended for monitoring change. Right total hip: 0.840 g/cm2, T-score -1.3 The World Health Organization has defined the following categories based on bone density: Normal bone density: T-score equal to or greater than -1.0 Osteopenia: T-score between -1.0 and -2.5 Osteoporosis: T-score equal to or less than -2.5 The patient does meet the pharmacological treatment recommendations for prevention of osteoporosis. BD/Dexa Bone Density Study IMPRESSION: OSTEOPENIA. Recommend follow-up as clinically warranted. Reading Location: [id number]
== END | disposition home or self-care (01) ==
LOC: OPBD 12:33
PROVIDERS: PCP Family Medicine Geriatric Medicine; Referring Provider Family Medicine Geriatric Medicine; Visit Provider Family Medicine Geriatric Medicine
DX: S32.050A Wedge compression fracture of fifth lumbar vertebra, initial encounter for closed fracture (principal)
CPT/HCPCS: 77080

== ENCOUNTER 2025-01-08 07:27 | Day surgery (SDC) | payer MEDICARE, SELFPAY ==
--- NOTE | 2025-01-02 09:55 | RAD_ITS ---
PROCEDURE: CHEST PA AND LATERAL 01/02/2025 REASON FOR EXAM: [facility]SH[facility], PRE-PROCEDURE DIAGNOSTIC TECHNIQUE: CHEST PA AND LATERAL COMPARISON: None FINDINGS: Hardware: None Heart: The heart size is normal. Mediastinum: The mediastinal contour is unremarkable. Lungs: The lungs are clear. Bones: Prior right reverse shoulder replacement. RAD/Chest PA and Lateral IMPRESSION: NO ACUTE FINDINGS. Reading Location: [id number]
[2025-01-02 10:40] LABS: International Normalized Ratio 1.3; Prothrombin Time (Protime)PT. 16.6 SECONDS (11.7-14.9)
[2025-01-02 10:58] LABS: Anion Gap 13 (5-15); BUN 25 mg/dL (4-19); Calcium,Total 9.5 mg/dL (7.6-11.0); Carbon Dioxide 22.9 mmol/L (21.0-32.0); Chloride 103 mmol/L (98-108); EST Glomerular Filtration Rate 77 (>60); Glucose 111 mg/dL (70-99); Potassium 4.7 mmol/L (3.3-5.1); Sodium Level 139 mmol/L (133-145)
[2025-01-07 08:29] VITALS: BMI 23.6
--- OUTSIDE RECORDS SUMMARY | 2025-01-08 07:37 | XMS RPT_ITS | CCD ---
Author Organization [facility] Care Team Providers Care Center Consultant Name Role Phone VICKIE PAEZ Unavailable Unavailable IMCA Unavailable Unavailable Federico Vigil Unavailable Unavailable VICKIE PAEZ Unavailable Unavailable IMCA Unavailable Unavailable Federico Vigil Unavailable Unavailable ANTOINETTE DEAN Unavailable Unavailable Federico Vigil Unavailable Unavailable Federico Vigil Unavailable Unavailable Serge Dubon MD Unavailable Federico Vigil MD Primary Care Provider Federico Vigil MD Primary Care Provider Federico Vigil MD Primary Care Provider Federico Vigil MD Primary Care Provider Dr. Federico Vigil Primary Care Provider Dr. Miller Alexandre Attending Provider Dr. Keiko Munguia Referring Provider Dr. Federico Vigil Referring Provider Dr. Osbaldo Vernon Attending Provider Dr. Osbaldo Vernon Referring Provider Dr. Osbaldo Vernon Other Provider Dr. Federico Vigil Primary Care Provider Karine Chiang Attending Provider Unavailable GRETEL MORGAN Referring Unavailable MCKENNA ALCAZAR Attending Unavailable FEDERICO VIGIL Primary Care Unavailable Dr. Federico Vigil Primary Care Provider Dr. Federico Vigil Referring Provider Dr. Osbaldo Vernon Attending Provider [phone] Dr. Hang Pool Attending Provider Dr. Luis A Rios Attending Provider [phone] Federico Vigil Primary Care Provider Dr. Federico Vigil Referring Provider MARYJANE Chilel Attending Provider Roof SOLID PROPELLANT PROCESSOR, SOLID PROPELLANT PROCESSOR-Juve Fish Attending Provider Dr. Federico Vigil Primary Care Provider Dr. Federico Vigil Referring Provider Dr. Hang Pool Attending Provider [phone] Luis A Rios Attending Provider [phone] MARYJANE Chilel Attending Provider Roof SOLID PROPELLANT PROCESSOR, SOLID PROPELLANT PROCESSOR-C Abram Fish Attending Provider Federico Vigil MD Primary Care Provider Dr. Federico Vigil Primary Care Provider Dr. Federico Vigil Referring Provider Dr. Luis A Rios Attending Provider [phone] Hang Pool Attending Provider Provider Agustin VIDALES Unavailable Unavailable FEDERICO VIGIL Primary Care Unavailable PROVIDER, UNKNOWN Attending Unavailable FEDERICO VIGIL Primary Care Unavailable ELENA WATKINS Referring Unavailable MATJERSEY, TIMOTHY Attending Unavailable ELDERFEDERICO RAINEY Primary Care Unavailable ELDERREDD, FEDERICO Linares Primary Care Unavailable MALATHI SAM Attending Unavailable ELDERVIKTORCK, FEDERICO Linares Primary Care Unavailable PROVIDER, UNKNOWN Admitting Unavailable PROVIDER, UNKNOWN Attending Unavailable PROVIDER, UNKNOWN Referring Unavailable MATTO, TIMOTHY Referring Unavailable ELDERBROCK, FEDERICO Linares Primary Care Unavailable ELDERBROCK, FEDERICO Linares Primary Care Unavailable MATTO, TIMOTHY Referring Unavailable ELDERBROCK, FEDERICO Linares Primary Care Unavailable MATTO, TIMOTHY Referring Unavailable ELDERBROCK, FEDERICO Linares Primary Care Unavailable ELDERBROCK, FEDERICO Linares Referring Unavailable ELENA WATKINS Attending Unavailable ELDERBROCK, FEDERICO Linares Primary Care Unavailable ELDERBROCK, FEDERICO Linares Referring Unavailable PROVIDER, UNKNOWN Attending Unavailable MATTO, TIMOTHY Attending Unavailable FEDERICO VIGIL Primary Care Unavailable FEDERICO VIGIL Primary Care Unavailable ELENA WATKINS Referring Unavailable FEDERICO VIGIL Primary Care Unavailable PROVIDER, UNKNOWN Referring Unavailable FEDERICO VIGIL Primary Care Unavailable PROVIDER, UNKNOWN Attending Unavailable Juan Oliver MD Unavailable Radha Seo Unavailable Juan Oliver MD Unavailable Tannhof CUSTOMER SALES CONSULTANT.GANG HEMSTITCHING MACHINE OPERATOR, Ruth Unavailable Juan Oliver MD Unavailable Maciel CUSTOMER SALES CONSULTANT.GANG HEMSTITCHING MACHINE OPERATOR, Phani Unavailable Juan Oliver MD Unavailable Tannhof CUSTOMER SALES CONSULTANT.GANG HEMSTITCHING MACHINE OPERATOR, Ruth Unavailable Unavail able Dr. Federico Vigil MD Primary Care Provider [phone] Dr. Federico Vigil MD Referring Provider Karine Betancur Attending Provider Dr. Hang Pool MD Attending Provider Dr. Luis A Rios MD Attending Provider Phoebe Sandoval Attending Provider Benito VIDALES, Dr. Martinez Attending Provider Dr. Juan Oliver MD Referring Provider Karine Betancur Referring Provider Dr. iMchael Ko MD, Chi Primary Care Provider [phone] Dr. Osbaldo Vernon MD Attending Provider Dr. Osbaldo Vernon MD Referring Provider Maikel VIDALES, Dr. Michael Braswell Attending Provider Maikel VIDALES, Dr. Michael Braswell Referring Provider FEDERICO VIGIL Primary Care Unavailable DAVID LUNDBERG Referring Unavailable FEDERICO VIGIL Primary Care Unavailable LUNDBERG, DAVID Referring Unavailable ARTUR LUNDBERGNA Attending Unavailable ELDERBROCK, FEDERICO D Primary Care Unavailable ELDERBROCK, FEDERICO D Primary Care Unavailable ELDERBROCK, FEDERICO D Primary Care Unavailable TANNHOF, RUTH Attending Unavailable ELDERBROCK, FEDERICO D Primary Care Unavailable SELF Referring Unavailable DANNY JUÁREZ Attending Unavailable ELDERBROCK, FEDERICO D Primary Care Unavailable ELDERBROCK, FEDERICO D Referring Unavailable ELDERBROCK, FEDERICO D Primary Care Unavailable TANNHOF, RUTH Attending Unavailable ELDERBROCK, FEDERICO D Primary Care Unavailable ELDERBROCK, FEDERICO D Attending Unavailable ELDERBROCK, FEDERICO D Primary Care Unavailable ELDERBROCK, FEDERICO D Primary Care Unavailable SUMAYA ALCAZAR Referring Unavailable ELDERBROCK, FEDERICO D Primary Care Unavailable ELDERBROCK, FEDERICO D Attending Unavailable ELDERBROCK, FEDERICO D Primary Care Unavailable DAVID LUNDBERG Referring Unavailable ELDERBROCK, FEDERICO D Primary Care Unavailable TANNHOF, RUTH Referring Unavailable ELDERBROCK, FEDERICO D Primary Care Unavailable TANNHOF, RUTH Referring Unavailable ELDERBROCK, FEDERICO D Primary Care Unavailable TANNHOF, RUTH Referring Unavailable ELDERBROCK, FEDERICO D Primary Care Unavailable ELDERBROCK, FEDERICO D Attending Unavailable ELDERBROCK, FEDERICO D Primary Care Unavailable ELDERBROCK, FEDERICO D Referring Unavailable ELDERBROCK, FEDERICO D Primary Care Unavailable TANNHOF, RUTH Referring Unavailable ELDERBROCK, FEDERICO D Primary Care Unavailable TANNHOF, RUTH Attending Unavailable ELDERBROCK, FEDERICO D Primary Care Unavailable TANNHOF, RUTH Attending Unavailable ELDERBROCK, FEDERICO D Primary Care Unavailable TANNHOF, RUTH Attending Unavailable ELDERBROCK, FEDERICO D Primary Care Unavailable TANNHOF, RUTH Attending Unavailable ELDERBROCK, FEDERICO D Primary Care Unavailable PHANI RAJAN Attending Unavailable Phoebe Sandoval Referring Provider [phone] Miller Alexandre MD Attending Provider [phone] Dr. Federico Vigil MD Primary Care Provider [phone] Dr. Federico Vigil MD Referring Provider Karine Betancur Attending Provider [phone] Federico Vigil Primary Care Unavailable Marciyson, Juan Referring Unavailable Prayson, Juan Attending Unavailable Maikel, Michael Chi Primary Care Unavailable Saulo, Osbaldo Attending Unavailable Saulo, Osbaldo Referring Unavailable Yaritza, Federico Primary Care Unavailable Elderbrock, Federico Referring Unavailable Kaycee Sanchez Attending Unavailable Elderbrock, Federico Primary Care Unavailable Prayson, Juan Referring Unavailable Prayson, Juan Attending Unavailable Karine Betancur Attending Unavail able Maikel, Michael Chi Primary Care Unavailable Karine Betancur Referring Unavail able Maikel, Michael Chi Primary Care Unavailable Saulo, Osbaldo Attending Unavailable Saulo, Osbaldo Referring Unavailable Andres Luciano Referring Unavailable MostAmadou cox Consulting Unavailable Mosteller, Amadou Admitting Unavailable Elderbrock, Federico Primary Care Unavailable Koram, Jeniffer Brandy Attending Unavailable Pool, Hang Consulting Unavailable Zahiraon, Juan Consulting Unavailable Sara Nuryn Consulting Unavailable GayleeletskyFederico Attending Unavailable Elderbrock, Federico Primary Care Unavailable Pool, Hang Admitting Unavailable Pool, Hang Referring Unavailable Mauro Amadou Consulting Unavailable Paintsil, [place] Consulting Unavailable Judson Achintya Consulting Unavailable Destiny Vuong Consulting Unavailable Jayce Shay Consulting Unavailable Jayce Corrales Consulting Unavailable Miller Gonzalez Consulting Unavailable Renato Velázquez Consulting Unavailable Mian Avila Consulting Unavailable Janneth Nur Consulting Unavailable Jerel, Federico Consulting Unavailable Maria Luisa, Jeniffer Brandy Consulting Unavailable Juan Tran Consulting Unavailable Rashad La Consulting Unavailable Carlo Rollins Consulting Unavailable Audrey Burks Consulting Unavailable Francisco Blankenship Consulting Unavailable Pool, Hang Consulting Unavailable Elderbrock, Federico Primary Care Unavailable Elderbrock, Federico Referring Unavailable Pool, Hang Attending Unavailable Luis A Rios Attending Unavailable Elderbrock, Federico Primary Care Unavailable Elderbrock, Federico Primary Care Unavailable Karine Betancur Attending Unavail able Elderbrock, Federico Referring Unavailable Elderbrock, Federico Referring Unavailable Elderbrock, Federico Primary Care Unavailable Pool, Hang Attending Unavailable Maikel, Michael Chi Referring Unavailable Maikel, Michael Chi Attending Unavailable Maikel, Michael Chi Primary Care Unavailable Elderbrock, Federico Primary Care Unavailable Prayson, Juan Referring Unavailable Prayson, Juan Attending Unavailable Elderbrock, Federico Primary Care Unavailable Prayson, Juan Referring Unavailable Prayson, Juan Attending Unavailable Enmanuellanflo, Radha Referring Unavailable Elderbrock, Federico Primary Care Unavailable Chilo Seoma Attending Unavailable Elderbrock, Federico Primary Care Unavailable Karine Betancur Referring Unavail able Karine Betancur Attending Unavail able Andres Luciano Referring Unavailable Elderbrock, Federico Primary Care Unavailable Pool, Hang Attending Unavailable Pool, Hang Referring Unavailable Elderbrock, Federico Primary Care Unavailable Eugenio Mauricio Attending Unavailable Elderbrock, Federico Primary Care Unavailable Elderbrock, Federico Referring Unavailable Saulo, Osbaldo Attending Unavailable Maikel, Michael Chi Primary Care Unavailable Saulo, Osbaldo Attending Unavailable Elderbrock, Federico Primary Care Unavailable Gabriel, Bethel Attending Unavailable Maikel, Michael Chi Referring Unavailable Maikel, Michael Chi Attending Unavailable Maikel, Michael Chi Primary Care Unavailable Gabriel, Luis A Attending Unavailable Elderbrock, Federico Primary Care Unavailable Elderbrock, Federico Primary Care Unavailable Elderbrock, Federico Referring Unavailable Karine Betancur Attending Unavail able Elderbrock, Federico Primary Care Unavailable Phoebe Troncoso Attending Unavailable Elderbrock, Federico Referring Unavailable Saulo, Osbaldo Attending Unavailable Elderbrock, Federico Referring Unavailable Maikel, Michael Chi Primary Care Unavailable Pool, Hang Attending Unavailable Pool, Hang Consulting Unavailable Pool, Hang Referring Unavailable Elderbrock, Federico Primary Care Unavailable Pool, Hang Referring Unavailable Amadou Wade Consulting Unavailable Audrey Burks Attending Unavailable Elderbrock, Federico Primary Care Unavailable Paintsil, [place] Consulting Unavailable Roper, Achintya Consulting Unavailable Destiny Vuong Consulting Unavailable Jayce Shay Consulting Unavailable Jayce Corrales Consulting Unavailable Miller Gonzalez Consulting Unavailable Renato Velázquez Consulting Unavailable Mian Avila Consulting Unavailable Janneth Nur Consulting Unavailable Federico Beltrán Consulting Unavailable Jonnaam, Jeniffer Brandy Consulting Unavailable Juan Tran Consulting Unavailable Rashad La Consulting Unavailable Carlo Rollins Consulting Unavailable Audrey Burks Consulting Unavailable Francisco Blankenship Consulting Unavailable Pool, Hang Consulting Unavailable Elderbrock, Federico Primary Care Unavailable Amadou Wade Attending Unavailable Amadou Wade Consulting Unavailable Andres Luciano Referring Unavailable Amadou Wade Admitting Unavailable Pool, Hang Attending Unavailable Pool, Hang Consulting Unavailable Juan Oliver Consulting Unavailable Janneth Nur Attending Unavailable Janneth Nur Consulting Unavailable Koram, Jeniffer Brandy Attending Unavailable Koram, Jeniffer Brandy Consulting Unavailable Pool, Hang Attending Unavailable Pool, Hang Admitting Unavailable Pool, Hang Referring Unavailable Amadou Wade Consulting Unavailable Federico Vigil Primary Care Unavailable Paintsil, [place] Consulting Unavailable Amie Roper Consulting Unavailable Destiny Vuong Consulting Unavailable Jayce Shay Consulting Unavailable Jayce Corrales Consulting Unavailable Miller Gonzalez Consulting Unavailable Renato Velázquez Consulting Unavailable Mian Avila Consulting Unavailable Janneth Nur Consulting Unavailable Federico Beltrán Consulting Unavailable Jeniffer Glsas Consulting Unavailable Juan Tran Consulting Unavailable Rashad La Consulting Unavailable Carlo Rollins Consulting Unavailable Audrey Burks Consulting Unavailable Francisco Blankenship Consulting Unavailable Yrn, Hang Consulting Unavailable Phoebe Troncoso Referring Unavailable Maikel, Michael Chi Primary Care Unavailable Miller Alexandre Attending Unavailable Troncoso Phoebe Referring Unavailable Maikel, Michael Chi Primary Care Unavailable Troncoso, Phoebe Attending Unavailable Allergies Allergy Classification Reported Allergen(s) Allergy Type Date of Onset Reaction(s) Facility NSAIDs (8 sources) Indomethacin Drug Allergy 5 Diarrhea [facility] Work Phone: Spironolactone (3 sources) Spironolactone Drug Allergy 3 Other: See Comments [facility] (20 sources) indomethacin; Translations: [INDOMETHACIN SODIUM] Drug Allergy 5 Diarrhea [facility] (20 sources) meloxicam; Translations: [MELOXICAM] Drug Allergy 5 Diarrhea [facility] (1 source) Indomethacin Drug Allergy 4 nausea [facility] Work Phone: (20 sources) Indomethacin Drug Allergy 3 Diarrhea, Bleeding [facility] (20 sources) Spironolactone; Translations: [SPIRONOLACTONE] Drug Allergy 3 Other: See Comments [facility] (20 sources) Hydroxychloroquine ; Translations: [HYDROXYCHLOROQUIN E] Drug Allergy 4 Itching [facility] (1 source) Indomethacin Drug Allergy 5 [facility] (1 source) Spironolactone Drug Allergy 5 [facility] Repository Medications Current Medications Medication Drug Class(es) Dates Sig (Normalized) Sig (Original) acetaminophen 325 mg oral capsule (20 sources) Start: 06-29-2024 take 2 capsules by mouth every six hours as needed for pain Acetaminophen 325 mg capsule Active 650 mg PO EVERY 6 HOURS as needed for fever or pain June 29, 2024 1:00am Start: 11-04-2022 End: 06-21-2024 take 1 tablet by mouth every four hours as needed for pain Acetaminophen 325 mg tablet Discontinued 325 mg PO Q4H as needed for fever or pain November 04, 2022 12:00am June 21, 2024 1:24pm allopurinol 100 mg oral tablet (20 sources) Xanthine Oxidase Inhibitor Start: 05-21-2024 End: 07-02-2024 take 1 tablet by mouth once daily allopurinol (ZYLOPRIM) 100 mg tablet Take 1 tablet by mouth once daily. 180 tablet 3 05/21/2024 07/02/2024 Discontinued Start: 08-13-2022 End: 08-02-2025 take 1 tablet by mouth twice daily Allopurinol 100 mg tablet Active 100 mg PO TWICE A DAY September 07, 2022 1:00am Comment on above: Take 1 tablet by inocente th twice daily. TWICE A DAY TAKE 1 TABLET BY INOCENTE TH TWICE A DAY amoxicillin 875 mg / clavulanate 125 mg oral tablet (9 sources) Penicillin-class Antibacterial Start: 10-12-2022 End: 10-19-2022 amoxicillin-clavulanic acid (AUGMENTIN) 875-125 mg per tablet Indications: Acute gout involving toe of left foot, unspecified cause Take 1 tablet by mouth twice daily for 7 days. FOR 7 DAYS. 14 tablet 0 10/12/2022 10/19/2022 Active Start: 04-15-2022 End: 04-25-2022 take 1 tablet by mouth twice daily amoxicillin-clavulanic acid (AUGMENTIN) 875-125 mg per tablet Indications: Lower resp. tract infection Take 1 tablet by mouth twice daily for 10 days. 20 tablet 0 04/15/2022 04/25/2022 Active Comment on above: Take 1 tablet by inocente th twice daily for 10 days. Take 1 tablet by inocente th twice daily for 7 days. FOR 7 DAYS. aspirin 81 mg oral tablet (20 sources) Platelet Aggregation Inhibitor, Nonsteroidal Anti-inflammatory Drug Start: 06-11-2024 take 1 capsule by mouth once daily Aspirin 81 mg capsule Active 81 mg PO DAILY June 11, 2024 1:00am Start: 12-09-2017 End: 09-07-2022 take 1 tablet by mouth once daily Aspirin (Adult Aspirin Regimen) 81 mg tablet,delayed release (DR/EC) Discontinued 81 mg PO daily December 09, 2017 12:00am September 07, 2022 4:22pm Start: 04-08-2015 End: 11-29-2022 take 1 tablet by mouth once daily Aspirin 81 mg tablet,chewable Discontinued 81 mg PO DAILY September 10, 2022 1:00am September 13, 2022 12:34pm Comment on above: Take 81 mg by mouth once daily. atorvastatin 40 mg oral tablet (3 sources) HMG-CoA Reductase Inhibitor Start: 12-12-19 take 1 tablet by mouth once daily Atorvastatin (Lipitor) 40 mg tablet Active 40 mg PO daily December 11, 2024 12:00am benzonatate 100 mg oral capsule (20 sources) Non-narcotic Antitussive Start: 05-24-20 End: 06-03-20 take 1 capsule by mouth three times daily as needed benzonatate (TESSALON PERLES) 100 mg capsule Indications: Sinobronchitis Take 1 capsule by mouth three times a day as needed for up to 10 days. 30 capsule 05/24/2024 06/03/2024 Active Start: 09-14-2022 End: 09-24-2022 take 2 capsules by mouth every eight hours as needed for cough and cough benzonatate (TESSALON PERLE) 100 mg capsule Indications: Acute cough Take 2 capsules by mouth three times daily as needed for cough for up to 10 days. 60 capsule 1 09/14/2022 09/24/2022 Active Start: 09-10-2022 End: 11-04-2022 take 1 capsule by mouth three times daily as needed for cough Benzonatate 100 mg capsule Discontinued 100 mg PO THREE TIMES A DAY as needed for cough September 10, 2022 3:46pm November 04, 2022 9:54am Start: 09-07-2022 End: 09-10-2022 Benzonatate 100 mg capsule Discontinued 100 mg PO 2 to 3 times per day as needed September 07, 2022 1:00am September 10, 2022 3:59pm Start: 08-27-2022 End: 09-06-2022 take 2 capsules by mouth every eight hours as needed for cough and cough benzonatate (TESSALON PERLE) 100 mg capsule Indications: Acute cough Take 2 capsules by mouth three times daily as needed for cough for up to 10 days. 60 capsule 0 08/27/2022 09/06/2022 Active Start: 04-15-2022 End: 04-25-2022 take 2 capsules by mouth every eight hours as needed for cough and cough benzonatate (TESSALON PERLE) 100 mg capsule Indications: Acute cough Take 2 capsules by mouth three times daily as needed for cough for up to 10 days. 60 capsule 0 04/15/2022 04/25/2022 Active Comment on above: Take 2 capsules by m outh three times daily as needed for cough for up to 10 days. codeine phosphate 2 mg/ml / guaiFENesin 20 mg/ml oral solution (3 sources) Opioid Agonist Start: 09-03-2024 End: 09-10-2024 take 10 mL by mouth three times daily as needed for cough codeine-guaiFENesin (ROBITUSSIN AC) 10-100 mg/5 mL syrup Indications: URI, acute , Acute cough Take 10 mL by mouth three times a day as needed for cough for up to 7 days. 210 mL 09/03/2024 09/10/2024 Active colchicine 0.6 mg oral tablet (18 sources) Start: 08-29-2024 colchicine 0.6 mg tablet Indications: Chronic gout of left knee, unspecified cause Take 1.2 mg PO X1, then 0.6 mg tablet 1 hour later X1. Max dose 1.8 mg 3 tablet 08/29/2024 Active Start: 10-11-2022 End: 11-29-2022 take 1 tablet by mouth twice daily colchicine (COLCRYS) 0.6 mg tablet Take 1 tablet by mouth twice daily for 10 days. 20 tablet 0 10/11/2022 11/29/2022 Discontinued (Course of therapy completed) Comment on above: Take 1 tablet by inocente th twice daily for 10 days. dapagliflozin 10 mg oral tablet (3 sources) Sodium-Glucose Cotransporter 2 Inhibitor Start: 12-12-19 take 1 tablet by mouth once daily Dapagliflozin Propanediol (Farxiga) 10 mg tablet Active 10 mg PO daily December 11, 2024 12:00am docusate sodium 50 mg / sennosides, pen[facility] 8.6 mg oral tablet (8 sources) Start: 06-21-20 Sennosides-Docusate Sodium (Stimulant Laxative Plus) 8.6-50 mg Tablet Active 2 {tbl} PO TWICE A DAY as needed for constipation June 21, 2024 1:26pm doxycycline hyclate 100 mg oral tablet (20 sources) Tetracycline-class Drug Start: 05-24-20 End: 06-03-20 take 1 tablet by mouth twice daily doxycycline (VIBRA-TABS) 100 mg tablet Indications: Sinobronchitis Take 1 tablet by mouth two times a day for 10 days. 20 tablet 05/24/2024 06/03/2024 Active Start: 07-04-2022 End: 09-07-2022 take 1 capsule by mouth twice daily Doxycycline Monohydrate 100 mg capsule Discontinued 100 mg PO TWICE A DAY July 04, 2022 1:00am September 07, 2022 4:22pm gabapentin 300 mg oral capsule (8 sources) Anti-epileptic Agent Start: 09-14-2024 take 1 capsule by mouth twice daily Gabapentin 300 mg capsule Active 300 mg PO TWICE A DAY September 14, 2024 1:00am Lactobacillus acidophilus (20 sources) take 1 capsule by mouth once daily Lactobacillus acidophilus (ACIDOPHILUS ORAL) Take 1 capsule by mouth once daily. Active take 1 capsule by mouth once car ly Lactobacillus acidophilus (ACIDOPHILUS ORAL) Take 1 capsule by mouth once daily. 0 Active Comment on above: Take 1 capsule by mo uth once daily. Lactobacillus Combination No.4 (Probiotic) 3 billion cell capsule (14 sources) Start: take 3 capsules by mouth once daily Lactobacillus Combination No.4 (Probiotic) 3 billion cell capsule Active 3000 NMA PO DAILY July 15, 2023 1:00am administer with a meal Start: 07-15-2023 take 3 capsules by m outh once daily Lactobacillus Combination No.4 (Probiotic) 3 billion cell capsule Active 3000 MMU CELLS PO DAILY July 15, 2023 1:00am administer with a meal Start: 07-15-2023 take 3 capsules by m outh once daily Lactobacillus Combination No.4 (Probiotic) 3 billion cell capsule Active 3000 MMU CELLS PO DAILY July 15, 2023 12:00am administer with a meal magnesium oxide 500 mg oral capsule (20 sources) Start: 09-13-2023 take 1 capsule by mouth once daily Magnesium Oxide 500 mg capsule Active 500 mg PO DAILY September 13, 2023 1:00am take 1 tablet by mouth once francisco javier y Magnesium Oxide 500 mg tab Take 1 tablet by mouth once daily. Active Comment on above: Take 1 tablet by inocente th once daily. melatonin 5 mg oral capsule (20 sources) Start: 09-07-2022 End: 09-10-2022 take 1 capsule by mouth at bedtime Melatonin 5 mg capsule Active 5 mg PO AT BEDTIME September 10, 2022 3:58pm Start: 09-07-2022 End: 09-10-2022 Melatonin Discontinued MG PO September 07, 2022 1:00am September 10, 2022 3:59pm Comment on above: AT BEDTIME Take 5 mg by mouth d aily at bedtime. Take 5 mg by mouth a t bedtime as needed. methylPREDNISolone (19 sources) Corticosteroid Start: 11-10-2022 End: 11-15-2022 methylPREDNISolone (MEDROL, NOAH,) 4 mg Dose-Pack Take as directed 21 tablet 0 11/10/2022 11/15/2022 Active Start: 11-03-2022 End: 11-08-2022 methylPREDNISolone (MEDROL, NOAH,) 4 mg Dose-Pack Take as directed 21 tablet 0 11/03/2022 11/08/2022 Start: 10-12-2022 End: 10-17-2022 methylPREDNISolone (MEDROL, NOAH,) 4 mg Dose-Pack Indications: Acute gout involving toe of left foot, unspecified cause Take as directed. 21 tablet 0 10/12/2022 10/17/2022 Active Start: 09-16-2022 End: 09-22-2022 methylPREDNISolone (MEDROL, NOAH,) 4 mg Dose-Pack Indications: Gout involving toe of right foot, unspecified cause, unspecified chronicity Follow dosing instructions, take with food. 21 tablet 0 09/16/2022 09/22/2022 Active Start: 08-01-2022 End: 09-27-2022 methylPREDNISolone (MEDROL, NOAH,) 4 mg Dose-Pack Take as directed 21 tablet 0 08/01/2022 09/27/2022 Discontinued Start: 08-01-2022 methylPREDNISo lone (MEDROL, NOAH,) 4 mg Dose-Pack Take as directed 21 tablet 0 08/01/2022 Active Comment on above: Take as directed Follow dosing instru ctions, take with food. Take as directed. multivit with minerals/lutein (MULTIVITAMIN 50 PLUS ORAL) (20 sources) take 1 tablet by mouth once daily multivit with minerals/lutein (MULTIVITAMIN 50 PLUS ORAL) Take 1 tablet by mouth once daily. Active take 1 tablet by mouth once francisco javier y multivit with minerals/lutein (MULTIVITAMIN 50 PLUS ORAL) Take 1 tablet by mouth once daily. 0 Active Comment on above: Take 1 tablet by inocente th once daily. Multivitamin With Iron-Mineral (4 sources) Start: 09-13-2023 take 1 tablet by mouth once daily Multivitamin With Iron-Mineral Active 1 TABLET PO DAILY September 13, 2023 1:00am Start: 09-13-2023 take 1 tablet by inocente th once daily Multivitamin With Iron-Mineral Active 1 TABLET PO DAILY September 13, 2023 12:00am Multivitamin With Iron-Mineral tablet (8 sources) Start: 09-13-2023 Multivitamin W ith Iron-Mineral tablet Active 1 {tbl} PO DAILY September 13, 2023 1:00am pantoprazole 20 mg delayed release oral tablet (20 sources) Proton Pump Inhibitor Start: 07-29-2022 End: 05-16-2025 take 1 tablet by mouth once daily Pantoprazole 20 mg tablet,delayed release (DR/EC) Active 20 mg PO DAILY September 07, 2022 1:00am Comment on above: Take 1 tablet by inocente th daily before breakfast. Take on empty stomach, 1/2 hr before meal. polyethylene glycol 3350 25420 mg powder for oral solution (20 sources) Osmotic Laxative Start: 09-05-2023 End: 02-16-2024 Polyethylene Glycol 3350 (Miralax) 17 gram powder in packet Active 17 g PO DAILY as needed for CONSTIPATION February 16, 2024 9:29am potassium chloride 20 meq extended release oral tablet (7 sources) Start: 11-29-2024 take 1 tablet by mouth once daily Potassium Chloride 20 mEq tablet extended release Active 20 meq PO daily November 29, 2024 12:00am predniSONE 20 mg oral tablet (20 sources) Start: 08-24-2024 End: 08-29-2024 take 2 tablets by mouth once daily predniSONE (DELTASONE) 20 mg tablet Indications: Acute pain of right knee Take 2 tablets by mouth once daily for 5 days. 10 tablet 08/24/2024 08/29/2024 Active Start: 05-30-2024 End: 06-08-2024 predniSONE (DELTASONE) 10 mg tablet Indications: Chronic 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 Take 4 tabs daily for 3 days, then 2 tabs daily for 3 days, then 1 tab daily for 3 days with food. 21 tablet 05/30/2024 06/08/2024 Start: 05-24-2024 End: 05-29-2024 take 1 tablet by mouth once daily predniSONE (DELTASONE) 20 mg tablet Indications: Sinobronchitis Take 1 tablet by mouth once daily for 5 days. 5 tablet 05/24/2024 05/29/2024 Active Start: 03-29-2024 End: 04-07-2024 predniSONE (DELTASONE) 10 mg tablet Indications: Acute right-sided low back pain without sciatica Take 4 tabs daily for 3 days, then 2 tabs daily for 3 days, then 1 tab daily for 3 days with food. 21 tablet 03/29/2024 04/07/2024 Active Start: 03-08-2024 End: 03-17-2024 predniSONE (DELTASONE) 10 mg tablet Indications: Acute right-sided low back pain without sciatica Take 4 tabs daily for 3 days, then 2 tabs daily for 3 days, then 1 tab daily for 3 days with food. 21 tablet 03/08/2024 03/17/2024 Active Start: 01-20-2024 End: 06-11-2024 take 1 tablet by mouth once daily Prednisone 2.5 mg tablet Discontinued 2.5 mg PO daily February 16, 2024 12:00am June 11, 2024 4:16pm Start: 09-05-2023 Prednisone Act tanya MG PO September 05, 2023 1:00am Start: 09-02-2023 End: 09-11-2023 predniSONE (DELTASONE) 10 mg tablet Indications: Acute pain of left knee Take 4 tabs daily for 3 days, then 2 tabs daily for 3 days, then 1 tab daily for 3 days with food. 21 tablet 0 09/02/2023 09/11/2023 Active Start: 01-17-2023 End: 02-16-2024 Prednisone 10 mg tablet Disc ontinued mg PO September 05, 2023 1:00am February 16, 2024 9:29am Start: 11-16-2022 End: 01-17-2023 predniSONE (DELTASONE) 10 mg tablet Take 1.2 tablets by mouth as needed. 0 11/16/2022 01/17/2023 Discontinued Start: 11-04-2022 End: 05-09-2023 Prednisone 5 mg tablets,dose pack Discontinued 5 mg PO As Directed November 04, 2022 12:00am May 09, 2023 10:00am see taper instructions Start: 09-27-2022 End: 10-06-2022 predniSONE (DELTASONE) 10 mg tablet Indications: Acute gout involving toe of left foot, unspecified cause Take 4 tabs daily for 3 days, then 2 tabs daily for 3 days, then 1 tab daily for 3 days with food. 21 tablet 0 09/27/2022 10/06/2022 Active Start: 07-04-2022 End: 09-07-2022 take 2 tablets by mouth once daily Prednisone 20 mg tablet Discontinued 40 mg PO DAILY July 04, 2022 1:00am September 07, 2022 4:23pm Start: 07-04-2022 End: 09-07-2022 take 40 mg by mouth once daily Prednisone Discontinued 40 MG PO DAILY July 04, 2022 1:00am September 07, 2022 4:23pm Start: 04-15-2022 End: 04-19-2022 take 2 tablets by mouth once daily at mealtime predniSONE (DELTASONE) 20 mg tablet Indications: Lower resp. tract infection Take 2 tablets by mouth once daily for 4 days. Take daily with food. 8 tablet 0 04/15/2022 04/19/2022 Active Start: 07-29-2020 End: 08-10-2020 predniSONE (DELTASONE) 10 mg tablet Indications: Acute pain of left shoulder Take 4 tabs daily x 3 days, then 3 tabs x 3 days, 2 tabs x 3 days, then 1 tab x3 days with food. 30 tablet 07/29/2020 08/10/2020 End: 12-20-2023 take 1 tablet by mouth once daily predniSONE (DELTASONE) 2.5 mg tablet Take 2.5 mg by mouth once daily. 0 12/20/2023 Discontinued Comment on above: Take 2 tablets by mo ut once daily for 4 days. Take daily with food. Take 4 tabs daily fo r 3 days, then 2 tabs daily for 3 days, then 1 tab daily for 3 days with food. Take 1.2 tablets by mouth as needed. Take 1 tablet by inocente th as needed. Take 2.5 mg by mouth once daily. regadenoson (LEXISCAN) 0.4 mg/5 mL syrg (1 source) Start: 09-06-19 End: 09-06-19 regadenoson (LEXISCAN) 0.4 mg/5 mL syrg Indications: Atrial fibrillation, unspecified type (HCC) , Shortness of breath Inject 5 mL intravenously one time only for 1 dose. Give IV push over 10 seconds and follow with 5 ml of normal saline 5 mL 0 09/06/2022 09/06/2022 Active Comment on above: Inject 5 mL intraven ously one time only for 1 dose. Give IV push over 10 seconds and follow with 5 ml of normal saline sacubitril 49 mg / valsartan 51 mg oral tablet (3 sources) Angiotensin 2 Receptor Pepe Start: 12-12-19 25 Sacubitril-Valsartan (Entresto) 49-51 mg tablet Active 1 {tbl} PO TWICE A DAY 180 December 11, 2024 12:00am simvastatin 20 mg oral tablet (20 sources) HMG-CoA Reductase Inhibitor Start: 02-29-20 12 End: 12-23-19 24 take 1 tablet by mouth once daily in the evening Simvastatin 20 mg tablet Active 20 mg PO EVERY EVENING December 09, 2017 12:00am Comment on above: Take 1 tablet by inocente once daily. tiZANidine 4 mg oral tablet (2 sources) Central alpha-2 Adrenergic Agonist Start: 03-29-20 24 End: 04-08-20 24 take 1 tablet by mouth every eight hours as needed for muscle spasms tiZANidine (ZANAFLEX) 4 mg tablet Indications: Acute right-sided low back pain without sciatica Take 1 tablet by mouth every 8 hours as needed (muscle spasms) for up to 10 days. 30 tablet 03/29/2024 04/08/2024 Active Start: 03-08-2024 End: 03-18-2024 take 1 tablet by mouth every eight hours as needed for muscle spasms tiZANidine (ZANAFLEX) 4 mg tablet Indications: Acute right-sided low back pain without sciatica Take 1 tablet by mouth every 8 hours as needed (muscle spasms) for up to 10 days. 30 tablet 03/08/2024 03/18/2024 Active traMADol hydrochloride 50 mg oral tablet (2 sources) Opioid Agonist Start: 01-05-2024 End: 01-10-2024 take 1 tablet by mouth every eight hours as needed for pain traMADol (ULTRAM) 50 mg tablet Indications: Post-op pain Take 1 tablet by mouth every 8 hours as needed for pain for up to 5 days. 15 tablet 0 01/05/2024 01/10/2024 Active Start: 12-27-2023 End: 12-30-2023 take 1 tablet by mouth every eight hours as needed traMADol (ULTRAM) 50 mg tablet Indications: Post-operative pain Take 1 tablet by mouth every 8 hours as needed for up to 3 days. 9 tablet 0 12/27/2023 12/30/2023 Active Vitamin B Complex (20 sources) Start: 09-13-2023 take 1 tablet by inocente th once daily Vitamin B Complex Active 1 TABLET PO DAILY September 13, 2023 1:00am Start: 09-13-2023 take 1 tablet by mouth once da sundeep Vitamin B Complex Active 1 TABLET PO DAILY September 13, 2023 12:00am take 1 tablet by mouth once francisco javier y vitamin B complex (SUPER B COMPLEX ORAL) Take 1 tablet by mouth once daily. Active take 1 tablet by mouth once francisco javier y vitamin B complex (SUPER B COMPLEX ORAL) Take 1 tablet by mouth once daily. 0 Active Comment on above: Take 1 tablet by inocente th once daily. Vitamin B Complex tablet (8 sources) Start: 09-13-2023 Vitamin B Complex tablet Active 1 {tbl} PO DAILY September 13, 2023 1:00am Completed/Discontinued Medications Medication Drug Class(es) Dates Sig (Normalized) Sig (Original) acetaminophen 325 mg / HYDROcodone bitartrate 5 mg oral tablet (20 sources) Opioid Agonist Start: 06-21-2024 End: 06-29-2024 Hydrocodone-Acetami nophen 5-325 mg Tablet Discontinued 1 {tbl} PO EVERY 6 HOURS NEEDED as needed for Pain Score 4-10 20 June 21, 2024 June 29, 2024 12:58pm Start: 07-04-2022 End: 09-13-2022 Hydrocodone-Acetaminophen 5- 325 mg tablet Discontinued 1 {tbl} PO EVERY 6 HOURS as needed for pain 04 19July 04, 2022 September 13, 2022 12:34pm Start: 07-04-2022 End: 09-13-2022 take 1 tablet by mouth every six hours Hydrocodone-Acetaminophen Discontinued 1 TABLET PO EVERY 6 HOURS 10 July 04, 2022 September 13, 2022 12:34pm acetaminophen 325 mg / oxyCODONE hydrochloride 5 mg oral tablet (10 sources) Opioid Agonist Start: 06-07-2024 End: 06-21-2024 Oxycodone-Acetaminophen 5-32 5 mg tablet Discontinued 1 {tbl} PO THREE TIMES A DAY as needed for pain June 07, 2024 1:00am June 21, 2024 1:25pm Start: 05-30-2024 End: 06-04-2024 take 1 tablet by mouth every eight hours as needed for pain oxyCODONE-acetaminophen (PERCOCET) 5-325 mg tablet Indications: Chronic 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 Take 1 tablet by mouth every 8 hours as needed for pain for up to 5 days. 15 tablet 05/30/2024 06/04/2024 Active amiodarone hydrochloride 200 mg oral tablet (20 sources) Antiarrhythmic Start: 05-09-2023 End: 05-09-2023 take 1 tablet by mouth once daily Amiodarone 200 mg tablet Discontinued 200 mg PO DAILY May 09, 2023 12:00am May 09, 2023 10:06am Start: 12-21-2022 amiodarone (PA CERONE) 200 mg tablet Indications: Status post catheter ablation of atrial fibrillation Take 1 tablet by mouth three times daily for 21 doses. TID for 7 days followed by 200 mg once daily for 3 months (Total of 111 tabs) 111 tablet 0 12/21/2022 Active Comment on above: Take 1 tablet by inocente three times daily for 21 doses. TID for 7 days followed by 200 mg once daily for 3 months (Total of 111 tabs) apixaban 5 mg oral tablet (20 sources) Factor Xa Inhibitor Start: 3 End: take 1 tablet by mouth twice daily Apixaban (Eliquis) 5 mg tablet Discontinued 5 mg PO TWICE A DAY 180 March 12, 2024 9:02am July 24, 2024 11:48am Comment on above: Take 1 tablet by inocente twice daily. TWICE A DAY Take 5 mg by mouth t wice daily. 5 ml bupivacaine hydrochloride 5 mg/ml injection (3 sources) Amide Local Anesthetic Start: End: BUPivacaine (PF) 0.5 % (5 mg/mL) 2.5 mg injection Start: 04-22-2022 End: 04-20-2022 bupivacaine (PF) 0.5 % (5 mg /mL) 2.5 mg injection Start: 11-25-2021 End: 11-25-2021 bupivacaine (PF) 0.5 % (5 mg /mL) 2.5 mg injection carvedilol 6.25 mg oral tablet (20 sources) alpha-Adrenergic Pepe, beta-Adrenergic Pepe Start: 11-04-2022 End: 01-04-2024 take 1 tablet by mouth twice daily at mealtime Carvedilol 6.25 mg tablet Discontinued 6.25 mg PO TWICE A DAY 180 December 29, 2023 8:29am January 04, 2024 10:12am must administer with a meal/food Start: 10-12-2022 End: 05-18-2023 take 2 tablets by mouth twice daily carvedilol (COREG) 3.125 mg tablet Take 6.25 mg by mouth twice daily. 0 10/12/2022 05/18/2023 Discontinued Start: 10-12-2022 End: 11-04-2022 take 1 tablet by mouth twice daily at mealtime Carvedilol 3.125 mg tablet Discontinued 3.125 mg PO TWICE A DAY 180 October 12, 2022 12:00am November 04, 2022 10:17am must administer with a meal/food Comment on above: TAKE 1 TABLET BY INOCENTE TH TWICE A DAY MUST ADMINISTER WITH FOOD Take 6.25 mg by mout h twice daily. Take 1 tablet by inocente th twice daily. clopidogrel 75 mg oral tablet (20 sources) [id number] Platelet Inhibitor Start: End: take 1 tablet by mouth once daily Clopidogrel 75 mg Tablet Discontinued 75 mg PO DAILY October 07, 2022 12:00am October 25, 2023 3:43pm Comment on above: Take 75 mg by mouth once daily. cyclobenzaprine hydrochloride 10 mg oral tablet (2 sources) Muscle Relaxant Start: End: take 1 tablet by mouth three times daily as needed cyclobenzaprine (FLEXERIL) 10 mg tablet Indications: Chronic 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 Take 1 tablet by mouth three times a day as needed for up to 10 days. 30 tablet 05/31/2024 06/10/2024 1 ml dexamethasone phosphate 4 mg/ml injection (3 sources) Corticosteroid Start: End: dexAMETHasone sodium phosphate 2 mg injection (DECADRON) Start: 04-22-2022 End: 04-20-2022 dexAMETHasone sodium phospha te 2 mg injection (DECADRON) Start: 11-25-2021 End: 11-25-2021 dexAMETHasone sodium phospha te 2 mg injection (DECADRON) Docusate (20 sources) End: 12-27-2023 take 1 tablet by mouth once daily docusate sodium (DULCOLAX STOOL SOFTENER, DSS, ORAL) Take 1 tablet by mouth once daily. 12/27/2023 Discontinued take 1 tablet by mouth once francisco javier y docusate sodium (DULCOLAX STOOL SOFTENER, DSS, ORAL) Take 1 tablet by mouth once daily. 0 Active Comment on above: Take 1 tablet by inocente th once daily. empagliflozin 10 mg oral tablet (20 sources) Sodium-Glucose Cotransporter 2 Inhibitor Start: 11-05-19 End: 04-26-20 take 1 tablet by mouth once daily Empagliflozin (Jardiance) 10 mg tablet Discontinued 10 mg PO DAILY November 04, 2022 10:18am February 03, 2023 9:45am Comment on above: Take 10 mg by mouth once daily. ferrous sulfate 325 mg oral tablet (20 sources) Start: 05-10-20 End: 05-19-20 take 1 tablet by mouth once daily Ferrous Sulfate 325 mg (65 mg iron) tablet Discontinued 325 mg PO DAILY May 10, 2023 12:00am May 19, 2023 1:21pm Start: 04-08-2023 End: 04-07-2024 take 1 tablet by mouth once daily ferrous sulfate 325 mg (65 mg iron) tablet Indications: Iron deficiency anemia, unspecified iron deficiency anemia type Take 1 tablet by mouth once daily. 30 tablet 04/08/2023 05/18/2023 Discontinued Comment on above: Take 1 tablet by inocente th once daily. furosemide 40 mg oral tablet (20 sources) Loop Diuretic Start: 08-09-2023 End: 12-13-2024 take 1 tablet by mouth once daily Furosemide 40 mg tablet Discontinued 40 mg PO DAILY November 29, 2024 1:40pm December 13, 2024 8:53am Start: 02-10-2023 End: 08-09-2023 Furosemide (Lasix) 40 mg tab let Discontinued 20 mg PO DAILY as needed for diuretic 0 February 10, 2023 11:00am August 09, 2023 2:40pm Start: 09-07-2022 End: 05-18-2023 take 1 tablet by mouth once daily as needed Furosemide (Lasix) 40 mg tablet Discontinued 40 mg PO DAILY as needed for diuretic October 18, 2022 11:11am February 10, 2023 11:00am Comment on above: Take 1 tablet by inocente th once daily. Take 40 mg by mouth as needed. hydroxychloroquine sulfate 200 mg oral tablet (20 sources) Antimalarial, Antirheumatic Agent Start: 2022 End: 2023 take 1 tablet by mouth once daily Hydroxychloroquine 200 mg tablet Discontinued 200 mg PO DAILY May 10, 2023 12:00am September 13, 2023 2:07pm Start: 01-05-2023 End: 12-27-2023 take 1 tablet by mouth twice daily Hydroxychloroquine 200 mg tablet Discontinued 200 mg PO TWICE A DAY September 13, 2023 2:07pm October 25, 2023 3:43pm On Hold: To see if itching resolves Comment on above: Take 200 mg by mouth twice daily. iv contrast (will be provided with radiology test) (7 sources) Start: End: inject 1 dose intravenously once iv contrast (will be provided with radiology test) CTA Head/Neck W No IV access, insert saline lock prior to the sedation, infusion, injection for imaging exam. Discontinue saline lock post exam. If Pt. has a central line or IVAD, may access for administration according to line specific nursing protocol. Once exam is complete flush line and de-access according to line specific nursing protocol in the CT contrast administration guidelines link. 1 Each 0 11/17/2023 11/18/2023 Start: 11-11-2023 End: 11-12-2023 inject 1 dose intravenously once iv contrast (will be provided with radiology test) CTA Head/Neck W No IV access, insert saline lock prior to the sedation, infusion, injection for imaging exam. Discontinue saline lock post exam. If Pt. has a central line or IVAD, may access for administration according to line specific nursing protocol. Once exam is complete flush line and de-access according to line specific nursing protocol in the CT contrast administration guidelines link. 1 Each 0 11/11/2023 11/12/2023 Active Start: 05-09-2023 End: 05-10-2023 inject 1 dose intravenously once iv contrast (will be provided with radiology test) Indications: Dizziness , Tinnitus, unspecified laterality CTA Head/Neck WO/W No IV access, insert saline lock prior to the sedation, infusion, injection for imaging exam. Discontinue saline lock post exam. If Pt. has a central line or IVAD, may access for administration according to line specific nursing protocol. Once exam is complete flush line and de-access according to line specific nursing protocol in the CT contrast administration guidelines link. 1 Each 0 05/09/2023 05/10/2023 Active Start: 12-30-2022 End: 12-31-2022 inject 1 dose intravenously once iv contrast (will be provided with radiology test) Indications: Persistent atrial fibrillation (HCC) , Dyspnea, unspecified type CTA CHEST - No IV access, insert saline lock prior to the sedation, infusion, injection for imaging exam. Discontinue saline lock post exam. If Pt. has a central line or IVAD, may access for administration according to line specific nursing protocol. Once exam is complete flush line and de-access according to line specific nursing protocol in the CT contrast administration guidelines link. 1 Each 0 12/30/2022 12/31/2022 Active Comment on above: CTA CHEST - No IV ac cess, insert saline lock prior to the sedation, infusion, injection for imaging exam. Discontinue saline lock post exam. If Pt. has a central line or IVAD, may access for administration according to line specific nursing protocol. Once exam is complete flush line and de-access according to line specific nursing protocol in the CT contrast administration guidelines link. CTA Head/Neck WO/W N o IV access, insert saline lock prior to the sedation, infusion, injection for imaging exam. Discontinue saline lock post exam. If Pt. has a central line or IVAD, may access for administration according to line specific nursing protocol. Once exam is complete flush line and de-access according to line specific nursing protocol in the CT contrast administration guidelines link. lisinopril 5 mg oral tablet (20 sources) Angiotensin Converting Enzyme Inhibitor Start: End: take 1 tablet by mouth once daily Lisinopril 5 mg tablet Discontinued 5 mg PO daily November 29, 2024 1:17pm November 29, 2024 1:26pm on hold Start: 01-13-2024 End: 11-29-2024 take 1 tablet by mouth twice daily Lisinopril 5 mg tablet Discontinued 5 mg PO TWICE A DAY May 29, 2024 11:15am August 20, 2024 11:03am Start: 01-13-2024 End: 04-23-2024 take 1 tablet by mouth once daily Lisinopril 5 mg tablet Discontinued 5 mg PO DAILY January 13, 2024 12:00am April 23, 2024 12:52pm Start: 07-21-2023 End: 10-27-2023 take 1 tablet by mouth once daily lisinopril (ZESTRIL) 5 mg tablet Take 1 tablet by mouth once daily. 07/21/2023 10/27/2023 Discontinued Start: 07-15-2023 End: 09-05-2023 Lisinopril 2.5 mg tablet Discontinued mg PO July 15, 2023 1:00am September 05, 2023 11:04am Start: 07-15-2023 End: 09-05-2023 Lisinopril Discontinued MG P O July 15, 2023 1:00am September 05, 2023 11:04am Start: 02-10-2023 End: 05-19-2023 take 2.5 mg by mouth once daily Lisinopril 5 mg tablet Discontinued 2.5 mg PO DAILY 0 February 10, 2023 10:59am May 19, 2023 1:22pm On Hold: low BP Start: 02-10-2023 End: 05-19-2023 take 2.5 mg by mouth once daily Lisinopril Discontinue d 2.5 MG PO DAILY 0 February 10, 2023 10:59am May 19, 2023 1:22pm On Hold: low BP Start: 01-17-2023 End: 05-18-2023 take 2 tablets by mouth once daily lisinopril 2.5 mg tablet Take 5 mg by mouth once daily. 0 01/17/2023 05/18/2023 Discontinued Start: 01-17-2023 take 1 tablet by inocente th once daily lisinopril 2.5 mg tablet Take 1 tablet by mouth once daily. 0 01/17/2023 Active Start: 11-04-2022 End: 06-22-2023 take 1 tablet by mouth once daily Lisinopril 5 mg tablet Discontinued 5 mg PO DAILY November 04, 2022 10:18am February 10, 2023 11:00am Start: 09-13-2022 End: 11-04-2022 take 1 tablet by mouth once daily Lisinopril 2.5 mg tablet Discontinued 2.5 mg PO DAILY October 06, 2022 1:50pm October 07, 2022 8:52am Start: 10-06-2021 End: 11-29-2022 take 1 tablet by mouth once daily Lisinopril 10 mg tablet Discontinued 10 mg PO DAILY September 10, 2022 1:00am September 13, 2022 12:34pm Start: 12-09-2017 End: 09-07-2022 take 1 tablet by mouth once daily Lisinopril 20 mg tablet Discontinued 20 mg PO daily December 09, 2017 12:00am September 07, 2022 4:17pm Start: 02-29-2012 LISINOPRIL 10 MG TABS daily LISINOPRIL [id number] Magali Parekh Comment on above: Take 1 tablet by inocente th once daily. Take 5 mg by mouth o nce daily. LORazepam 1 mg oral tablet (9 sources) Benzodiazepine Start: End: Lorazepam (Ativan) 1 mg tablet Discontinued 1 mg PO .COMPLEX 2 November 04, 2023 12:00am February 16, 2024 9:29am 1 mg orally 1 hour before MRI for claustrophobia; Magnesium (14 sources) Start: End: take 2 tablets by mouth at bedtime Magnesium 250 mg tablet Discontinued 500 mg PO AT BEDTIME July 31, 2023 1:00am September 13, 2023 2:05pm Start: 07-31-2023 End: 09-13-2023 take 500 mg by mouth at bedtime Magnesium Discontinued 500 MG PO AT BEDTIME July 31, 2023 1:00am September 13, 2023 2:05pm Start: 07-31-2023 End: 09-13-2023 take 500 mg by mouth at bedtime Magnesium Discontinued 500 MG PO AT BEDTIME July 31, 2023 12:00am September 13, 2023 1:05pm Start: 07-31-2023 take 500 mg by mouth at bedtim e Magnesium Active 500 MG PO AT BEDTIME July 31, 2023 12:00am magnesium citrate 58.2 mg/ml oral solution (15 sources) Start: 05-11-2023 End: 07-15-2023 take 1 mL by mouth once as needed for constipation Magnesium Citrate solution Discontinued 300 mL PO ONE TIME as needed for constipation May 11, 2023 2:00am July 15, 2023 11:56am Start: 05-11-2023 End: 07-15-2023 take 1 mL by mouth once Magnesium Citrate Discontinu ed 300 ML PO ONE TIME May 11, 2023 2:00am July 15, 2023 11:56am methocarbamol 500 mg oral tablet (8 sources) Muscle Relaxant Start: 06-21-2024 End: 09-14-2024 Methocarbamol 500 mg Tablet Discontinued 750 mg PO THREE TIMES A DAY as needed for pain/spasms June 21, 2024 1:26pm September 14, 2024 11:52am 24 hr metoprolol succinate 25 mg extended release oral tablet (20 sources) beta-Adrenergic Pepe Start: 08-30-2022 End: 11-29-2022 take 1 tablet by mouth once daily Metoprolol Succinate 25 mg tablet extended release 24 hr Discontinued 25 mg PO DAILY September 07, 2022 1:00am October 12, 2022 9:17am Comment on above: Take 1 tablet by inocente th once daily. TAKE 1 TABLET BY INOCENTE TH EVERY DAY MULTIPLE VITAMIN (1 source) Start: 02-29-2012 MULTIVITAMINS TABS daily MULTIPLE VITAMIN [id number] Magali Parekh multivitamin capsule (15 sources) Start: 12-09-2017 End: 09-10-2022 take 1 capsule by mouth once daily multivitamin capsule Discontinued 1 CAP PO daily December 08, 2017 11:00pm September 10, 2022 2:55pm Start: 12-09-2017 End: 09-10-2022 take 1 capsule by mouth once daily multivitamin capsule Discontinued 1 CAP PO daily December 09, 2017 12:00am September 10, 2022 3:55pm Start: 12-09-2017 take 1 capsule by mo [facility] once daily multivitamin capsule Active 1 CAP PO daily December 08, 2017 11:00pm Multivitamin capsule (8 sources) Start: 12-09-2017 End: 09-10-2022 Multivitamin capsule Discontinued 1 NMA PO daily December 09, 2017 12:00am September 10, 2022 3:55pm Multivitamin liquid (8 sources) Start: 09-10-2022 End: 09-13-2023 take 1 mL by mouth once daily Multivitamin liquid Discontinued 5 mL PO DAILY September 10, 2022 1:00am September 13, 2023 2:03pm Multivitamin preparation (13 sources) Start: 09-10-2022 End: 09-13-2023 take 1 mL by mouth once daily Multivitamin Discontinued 5 ML PO DAILY September 10, 2022 1:00am September 13, 2023 2:03pm Start: 09-10-2022 End: 09-13-2023 take 1 mL by mouth once daily Multivitamin Discontinue d 5 ML PO DAILY September 10, 2022 12:00am September 13, 2023 1:03pm Start: 09-10-2022 take 1 mL by mouth once daily Multivitamin Active 5 ML PO DAILY September 10, 2022 12:00am Start: 09-10-2022 take 1 mL by mouth once daily Multivitamin Active 5 ML PO DAILY September 10, 2022 1:00am multivitamins ORAL Liqd (20 sources) End: 11-29-2022 multivitamins ORAL Liqd TAKE S 1 OUNCE DAILY 11/29/2022 Discontinued (Course of therapy completed) End: 11-29-2022 multivitamins ORAL Liqd TAKE S 1 OUNCE DAILY 0 11/29/2022 Discontinued (Course of therapy completed) multivitamins OR AL Liqd TAKES 1 OUNCE DAILY 0 Active Comment on above: TAKES 1 OUNCE DAILY [place] 1-Riv-Ksb-Fish Oil (13 sources) Start: 09-10-2022 End: 11-04-2022 take 1 capsule by mouth once daily [place] 6-Vah-Eoy-Fish Oil Discontinued 1 CAP PO DAILY September 10, 2022 12:00am November 04, 2022 8:55am Start: 09-10-2022 End: 11-04-2022 take 1 capsule by mouth once daily [place] 8-Cwu-Eqf-Fish Oil Discontinued 1 CAP PO DAILY September 10, 2022 1:00am November 04, 2022 9:55am Start: 09-10-2022 take 1 capsule by mo ut once daily [place] 3-Slk-Tbr-Fish Oil Active 1 CAP PO DAILY September 10, 2022 1:00am omega 1-dwi-yzs-fish oil 500-100-1,000 mg cap (20 sources) End: 11-29-2022 take 1 capsule by mouth once daily omega 8-rbi-ljc-fish oil 500-100-1,000 mg cap Take 1 capsule by mouth once daily. 11/29/2022 Discontinued (Course of therapy completed) End: 11-29-2022 take 1 capsule by mouth once daily omega 0-zgc-lew-fish oil 500-100-1,000 mg cap Take 1 capsule by mouth once daily. 0 11/29/2022 Discontinued (Course of therapy completed) take 1 capsule by mo uth once daily omega 0-gmx-rfq-fish oil 500-100-1,000 mg cap Take 1 capsule by mouth once daily. 0 Active Comment on above: Take 1 capsule by mo [facility] once daily. [place] 3-Sve-Qoi-Fish Oil 500-100-1,000 mg capsule (8 sources) Start: 3 End: 3 [place] 5-Ony-Twp-Fish Oil 500-100-1,000 mg capsule Discontinued 1 NMA PO DAILY September 10, 2022 1:00am November 04, 2022 9:55am omeprazole 20 mg delayed release oral capsule (20 sources) Proton Pump Inhibitor Start: 1 End: 3 take 1 capsule by mouth once daily Omeprazole 20 mg capsule,delayed release(DR/EC) Discontinued 20 mg PO DAILY July 03, 2022 1:00am September 07, 2022 4:23pm Start: 03-21-2020 End: 09-23-2020 take 1 capsule by mouth once daily before breakfast omeprazole (PRILOSEC) 20 mg capsule Take 1 capsule by mouth daily before breakfast. 1/2 hr before meal. 30 capsule 11 03/21/2020 09/23/2020 Discontinued Comment on above: Take 1 capsule by [facility] once daily. TAKE 1 CAPSULE BY [facility] EVERY DAY oxyCODONE hydrochloride 5 mg oral tablet (14 sources) Opioid Agonist Start: 4 End: 5 take 1 tablet by mouth every four hours as needed for pain Oxycodone 5 mg Tablet Discontinued 5 mg PO EVERY 4 HOURS NEEDED as needed for Pain Score 4-10 30 35 June 29, 2024 September 14, 2024 11:53am Start: 06-29-2024 End: 09-03-2024 take 1 tablet by mouth once daily oxyCODONE IR (ROXICODONE) 5 mg immediate release tablet Take 5 mg by mouth once daily. Pain Management Dr. Burger 06/29/2024 09/03/2024 Discontinued perflutren lipid microsphere s 1.3 mL in NaCl (PF) 0.9% 10 mL injection (DEFINITY) (20 sources) Start: 12-30-2022 End: 03-29-2023 perflutren lipid microsphere s 1.3 mL in NaCl (PF) 0.9% 10 mL injection (DEFINITY) Start: 12-30-2022 End: 03-30-2024 perflutren lipid microsphere s 1.3 mL in NaCl (PF) 0.9% 10 mL injection (DEFINITY) Start: 08-30-2022 End: 03-29-2023 perflutren lipid microsphere s 1.3 mL in NaCl (PF) 0.9% 10 mL injection (DEFINITY) Start: 08-30-2022 End: 11-29-2023 perflutren lipid microsphere s 1.3 mL in NaCl (PF) 0.9% 10 mL injection (DEFINITY) potassium gluconate 2.5 meq oral tablet (20 sources) Start: 09-10-2022 End: 05-10-2023 take 1 tablet by mouth twice daily Potassium Gluconate 595 mg (99 mg) tablet Discontinued 595 mg PO TWICE A DAY September 10, 2022 3:49pm May 10, 2023 9:53pm Start: 09-07-2022 End: 09-10-2022 take 1 tablet by mouth once daily Potassium Gluconate 595 mg (99 mg) tablet Discontinued 595 mg PO DAILY September 07, 2022 1:00am September 10, 2022 3:59pm POTASSIUM-99 ORAL (20 sources) End: 11-29-2022 POTASSIUM-99 ORAL Take 99 % by mouth twice daily. 11/29/2022 Discontinued (Course of therapy completed) End: 11-29-2022 POTASSIUM-99 ORAL Take 99 % by mouth twice daily. 0 11/29/2022 Discontinued (Course of therapy completed) POTASSIUM-99 ORA L Take 99 % by mouth twice daily. 0 Active Comment on above: Take 99 % by mouth t wice daily. sildenafil 100 mg oral tablet (20 sources) Phosphodiesterase 5 Inhibitor Start: 09-10-19 End: 09-05-19 take 0.5-1 tablets by mouth once daily Sildenafil 100 mg tablet Discontinued 100 mg PO DAILY as needed for sexual activity September 10, 2022 1:00am September 05, 2023 11:04am Take 0.5-1 tab by mouth 1 hour before activity Start: 07-24-2021 End: 12-27-2023 take 0.5-1 tablets by mouth every hour sildenafil (VIAGRA) 100 mg tablet Indications: ED (erectile dysfunction) of organic origin Take 1/2 to 1 tablet by mouth 1 hour prior to anticipated intercourse. 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 30 tablet 5 03/07/2019 09/23/2020 Discontinued Comment on above: Take 1/2 to 1 tablet by mouth 1 hour prior to anticipated intercourse. 125 ml sodium chloride 9 mg/ml prefilled syringe (20 sources) Start: End: sodium chloride 0.9 % (flush) 10 mL (BD POSIFLUSH) spironolactone 25 mg oral tablet (20 sources) Aldosterone Antagonist Start: End: take 1 tablet by mouth once daily Spironolactone 25 mg tablet Discontinued 25 mg PO DAILY 90 December 30, 2022 12:00am February 03, 2023 9:49am Comment on above: Take 25 mg by mouth once daily. 1 ml triamcinolone acetonide 40 mg/ml injection (6 sources) Corticosteroid Start: End: triamcinolone acetonide 40 mg injection (KeNALog 40) Start: 05-30-2024 End: 05-30-2024 inject 1 dose by intramuscular injection once 40 mg, INTRAMUSCULAR, ONCE, 1 dose, On Tue05/30/24 at 1500 Start: 03-29-2024 End: 04-08-2024 triamcinolone acetonide (SUSSY ALOG) 0.1 % cream Indications: Contact dermatitis, unspecified contact dermatitis type, unspecified trigger Apply 1 application to affected area two times a day for 10 days. Apply to affected area. Location: right calf 80 g 03/29/2024 04/08/2024 Active Start: 10-25-2022 End: 10-25-2022 triamcinolone acetonide 5 mg injection (KeNALog 10) Start: 04-22-2022 End: 04-20-2022 triamcinolone acetonide 5 mg injection (KeNALog 10) Start: 11-25-2021 End: 11-25-2021 triamcinolone acetonide 5 mg injection (KeNALog 10) ubidecarenone 100 mg oral capsule (20 sources) Start: 09-10-2022 End: 11-29-2022 take 10 capsules by mouth once daily Coenzyme Q10 100 mg capsule Discontinued 100 mg PO DAILY September 10, 2022 1:00am November 04, 2022 9:55am Comment on above: Take 100 mg by mouth once daily. Vitamin B Comp And C No.3 (B Complex Plus Vitamin C) 34-59-16-5-300 mg capsule (20 sources) Start: 09-07-2022 End: 09-10-2022 Vitamin B Comp And C No.3 (B Complex Plus Vitamin C) 07-76-82-5-300 mg capsule Discontinued 1 NMA PO DAILY September 07, 2022 1:00am September 10, 2022 3:58pm give with food (meal/snack) Start: 09-07-2022 End: 09-10-2022 Vitamin B Comp And C No.3 (B Complex Plus Vitamin C) 26-19-10-5-300 mg capsule Discontinued 1 CAP PO DAILY September 07, 2022 12:00am September 10, 2022 2:58pm give with food (meal/snack) Start: 09-07-2022 End: 09-10-2022 Vitamin B Comp And C No.3 (B Complex Plus Vitamin C) 92-77-70-5-300 mg capsule Discontinued 1 CAP PO DAILY September 07, 2022 1:00am September 10, 2022 3:58pm give with food (meal/snack) Problems Active Problems Problem Classification Problem Date Documented Da te Episodic/Chronic Abdominal pain (16 sources) Upper abdominal pain; Translations: [Upper abdominal pain, unspecified] 05-02-2023 Episodic Acquired foot deformities (1 source) Tailor's bunion of right foot; Translations: [Bunionette of right foot] Episodic Acquired foot deformities (2 sources) Tailor's bunion of left foot; Translations: [Bunionette of left foot] Episodic Blindness and vision defects (1 source) Eye / vision finding; Translations: [Unspecified visual disturbance] 11-10-2023 Episodic Cardiac dysrhythmias (20 sources) Atrial fibrillation; Translations: [Unspecified atrial fibrillation] Onset: 3 08-30-2022 Chronic Cardiac dysrhythmias (15 sources) Bradycardia; Translations: [Bradycardia, unspecified] 05-03-2023 Episodic Conditions associated with dizziness or vertigo (18 sources) Dizziness; Translations: [Dizziness and giddiness] Episodic Coronary atherosclerosis and other heart disease (20 sources) Coronary arteriosclerosis; Translations: [Atherosclerotic heart disease of [place] coronary artery without angina pectoris] Onset: 3 10-12-2022 Chronic Deficiency and other anemia (20 sources) Anemia; Translations: [Anemia, unspecified] Onset: 3 05-19-2023 Episodic Deficiency and other anemia (10 sources) Iron deficiency anemia; Translations: [Iron deficiency anemia, unspecified] 08-23-2023 Episodic Disorders of lipid metabolism (20 sources) Mixed hyperlipidemia; Translations: [Mixed hyperlipidemia] Onset: 5 10-27-2015 Chronic Diverticulosis and diverticulitis (20 sources) Diverticulosis of colon; Translations: [Diverticulosis of large intestine without perforation or abscess without bleeding] Onset: 7 08-24-2006 Chronic E Codes: Fall (14 sources) Fall; Translations: [Unspecified fall, initial encounter] 07-31-2023 Episodic Esophageal disorders (20 sources) Gastroesophageal reflux disease; Translations: [Gastro-esophageal reflux disease without esophagitis] Onset: 7 04-27-2017 Chronic Essential hypertension (20 sources) Benign essential hypertension; Translations: [Essential (primary) hypertension] Onset: 5 07-13-2021 Chronic Gout and other crystal arthropathies (20 sources) Gout; Translations: [Gout, unspecified] Onset: 6 08-31-2005 Chronic Headache; including migraine (1 source) Headache; Translations: [Headache, unspecified headache type] 01-20-2024 Episodic Heart valve disorders (20 sources) Mitral valve regurgitation; Translations: [Nonrheumatic mitral (valve) insufficiency] Onset: 5 08-20-2024 Chronic Comment on above: mild to moderate Moderate Immunizations and screening for infectious disease (2 sources) Suspected disease caused by 2019-nCoV; Translations: [Suspected COVID-19 virus infection] Episodic Malaise and fatigue (20 sources) Fatigue; Translations: [Other fatigue] 11-04-2022 Episodic Nausea and vomiting (15 sources) Vomiting; Translations: [Vomiting, unspecified] 05-10-2023 Episodic Occlusion or stenosis of precerebral arteries (20 sources) Bilateral stenosis of carotid arteries; Translations: [Occlusion and stenosis of bilateral carotid arteries] Onset: 9 01-20-2018 Chronic Comment on above: S/P R CEA 12/2023 Osteoarthritis (9 sources) Osteoarthritis of knee; Translations: [Osteoarthritis of right hip joint] Onset: 5 04-09-2015 Chronic Other aftercare (18 sources) Long-term current use of anticoagulant; Translations: [longterm (current) use of anticoagulants] 01-02-2023 Episodic Other aftercare (1 source) Long-term current use of drug therapy; Translations: [Other long chain quiller tender (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] 03-28-2023 Episodic Other aftercare (2 sources) Other long chain quiller tender (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; Translations: [longterm current use of antiarrhythmic drug] Onset: 3 Episodic Other aftercare (7 sources) Long-term current use of diuretic; Translations: [Encounter for therapeutic drug level monitoring] 11-29-2024 Episodic Other aftercare (1 source) Encounter for therapeutic drug level monitoring; Translations: [Encounter for therapeutic drug level monitoring] Onset: 5 Episodic Other and unspecified benign neoplasm (1 source) Personal history of colonic polyps; Translations: [History of colonic polyps] Onset: 3 Episodic Other circulatory disease (20 sources) Subclavian artery stenosis; Translations: [Stricture of artery] 09-10-2022 Chronic Other circulatory disease (1 source) Stricture of artery; Translations: [Stricture of artery] Onset: 5 Chronic Other circulatory disease (20 sources) Aortic pulsation in abdomen; Translations: [Other specified symptoms and signs involving the circulatory and respiratory systems] 09-10-2022 Episodic Other circulatory disease (17 sources) H/O: atrial fibrillation; Translations: [Personal history of other diseases of the circulatory system] 01-02-2023 Episodic Other congenital anomalies (20 sources) Congenital [...] [Pain in right foot] 11-03-2022 Episodic Other ear and sense organ disorders (2 sources) Tinnitus; Translations: [Tinnitus, unspecified ear] 05-08-2023 Episodic Other ear and sense organ disorders (2 sources) Impacted cerumen of bilateral ears; Translations: [Impacted cerumen, bilateral] 05-09-2023 Episodic Other ear and sense organ disorders (1 source) Ear pressure sensation; Translations: [Other specified disorders of right ear] 01-20-2024 Episodic Other fractures (20 sources) Compression fracture of lumbar spine; Translations: [Collapsed vertebra, not elsewhere classified, lumbar region, subsequent encounter for fracture with routine healing] 07-24-2024 Episodic Other fractures (8 sources) Compression fracture of vertebral column; Translations: [Collapsed vertebra, not elsewhere classified, site unspecified, initial encounter for fracture] 07-07-2024 Episodic Other fractures (2 sources) Wedge compression fracture of fifth lumbar vertebra, initial encounter for closed fracture; Translations: [Wedge compression fracture of fifth lumbar vertebra, initial encounter for closed fracture] Onset: Episodic Other gastrointestinal disorders (3 sources) Swallowing painful; Translations: [Dysphagia, unspecified] Episodic Other gastrointestinal disorders (15 sources) Constipation; Translations: [Constipation, unspecified] 05-10-2023 Episodic Other gastrointestinal disorders (1 source) Dysphagia, unspecified; Translations: [Dysphagia, unspecified type] Onset: 3 Episodic Other gastrointestinal disorders (7 sources) Swollen abdomen; Translations: [Abdominal distension (gaseous)] 11-29-2024 Episodic Other liver diseases (20 sources) Large liver; Translations: [Hepatomegaly, not elsewhere classified] 08-31-2005 Episodic Other lower respiratory disease (3 sources) Cough; Translations: [Acute cough] Episodic Other lower respiratory disease (1 source) Lower respiratory tract infection; Translations: [Unspecified acute lower respiratory infection] Episodic Other lower respiratory disease (20 sources) Dyspnea; Translations: [Shortness of breath] Onset: 3 Episodic Other lower respiratory disease (3 sources) Cough; Translations: [Acute cough] 04-15-2022 Episodic Other lower respiratory disease (1 source) Shortness of breath; Translations: [Shortness of breath] Onset: 5 Episodic Other male genital disorders (20 sources) Secondary erectile dysfunction; Translations: [Male erectile dysfunction, unspecified] Onset: 7 04-27-2017 Chronic Other male genital disorders (20 sources) Male erectile dysfunction, unspecified; Translations: [Erectile dysfunction] Onset: 5 09-13-2022 Chronic Other nervous system disorders (1 source) Other chronic pain; Translations: [Chronic 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] Onset: 4 Chronic Other nervous system disorders (1 source) Postoperative pain ; Translations: [Other acute postprocedural pain] 01-05-2024 Episodic Other nervous system disorders (1 source) Other acute postprocedural pain; Translations: [Post-operative pain] Onset: 4 Episodic Other non-traumatic joint disorders (6 sources) Pain in left knee; Translations: [Pain in joint, lower leg] 09-02-2023 Episodic Other non-traumatic joint disorders (1 source) Pain in left shoulder; Translations: [Pain in joint, shoulder region] 07-29-2020 Episodic Other nutritional; endocrine; and metabolic disorders (5 sources) Weight gain; Translations: [Abnormal weight gain] 08-09-2023 Episodic Other nutritional; endocrine; and metabolic disorders (8 sources) Weight increased; Translations: [Abnormal weight gain] 12-05-2023 Episodic Other skin disorders (1 source) Eruption; Translations: [Rash and other nonspecific skin eruption] 04-17-2023 Episodic Other upper respiratory disease (20 sources) Allergic rhinitis; Translations: [Allergic rhinitis, unspecified] 08-31-2005 Chronic Other upper respiratory infections (1 source) Chronic sinusitis; Translations: [Chronic sinusitis, unspecified] 05-24-2024 Chronic Judy-; endo-; and myocarditis; cardiomyopathy (except that caused by tuberculosis or sexually transmitted disease) (20 sources) Cardiomyopathy; Translations: [Cardiomyopathy, unspecified] Onset: 3 09-13-2022 Chronic Peripheral and visceral atherosclerosis (20 sources) Peripheral vascular disease, unspecified; Translations: [Peripheral vascular disease, unspecified] Onset: 9 05-01-2019 Chronic Residual codes; unclassified (1 source) Daytime somnolence; Translations: [Other hypersomnia] 03-03-2023 Chronic Residual codes; unclassified (4 sources) Pain; Translations: [Pain, unspecified] Episodic Residual codes; unclassified (13 sources) Edema; Translations: [Edema, unspecified] 08-09-2023 Episodic Residual codes; unclassified (2 sources) Bilateral lower limb edema; Translations: [Localized edema] 06-12-2024 Episodic Residual codes; unclassified (16 sources) H/O Spinal surgery; Translations: [Other specified postprocedural states] 09-14-2024 Episodic Rheumatoid arthritis and related disease (20 sources) Inflammatory polyarthropathy; Translations: [Inflammatory polyarthropathy] Onset: 3 05-19-2023 Chronic Spondylosis; intervertebral disc disorders; other back problems (20 sources) Degeneration of cervical intervertebral disc; Translations: [Other cervical disc degeneration, mid-cervical region, unspecified level] Onset: 4 07-15-2023 Chronic Sprains and strains (14 sources) Unspecified sprain of left little finger, initial encounter; Translations: [Sprain of left little finger] 07-31-2023 Episodic Superficial injury; contusion (20 sources) Contusion of right hand, initial encounter; Translations: [Hematoma of right hand] 07-31-2023 Episodic Thyroid disorders (3 sources) Goiter; Translations: [Nontoxic goiter, unspecified] Chronic Transient cerebral ischemia (10 sources) Amaurosis fugax; Translations: [Amaurosis fugax] Onset: 4 11-10-2023 Chronic Unclassified (1 source) Unknown / UNK(Unknown) Onset: 8 Unclassified (1 source) History of repair of hip joint; Translations: [Presence of left artificial hip joint] Onset: 6 06-30-2016 Unclassified (1 source) Established Patient Onset: 4 Unclassified (1 source) Other persistent atrial fibrillation; Translations: [Persistent atrial fibrillation (HCC)] Onset: 3 Unclassified (1 source) APPOINTMENT CANCELLED 10-12-2024 Unclassified (1 source) Acute cough; Translations: [Acute cough] Onset: 5 Unclassified (1 source) Chronic 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; Translations: [Chronic 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] Onset: 4 Unclassified (1 source) Acute right-sided low back pain without sciatica; Translations: [Acute right-sided low back pain without sciatica] Onset: 4 Unclassified (1 source) Low back pain, unspecified; Translations: [Low back pain, unspecified] Onset: 5 Unclassified (1 source) Other low back pain; Translations: [Other low back pain] Onset: 5 Past or Other Problems Problem Classification Problem Date Documented Da te Episodic/Chronic Allergic reactions (2 sources) Contact dermatitis; Translations: [Unspecified contact dermatitis, unspecified cause] Onset: 03-29-2024 03-29-2024 Episodic Coronary atherosclerosis and other heart disease (20 sources) Stented coronary artery; Translations: [Presence of coronary angioplasty implant and graft] Onset: 09-15-2022 10-29-2022 Episodic Comment on above: Successful PTCA/CALE LCX into Prox OM1 using Resolute Mikana 2.5x18 & 2.25x8mm Dr. Vernon 10/06/22 Deficiency and other anemia (5 sources) Anemia, unspecified; Translations: [Anemia, unspecified] Onset: 05-19-2023 4 Episodic Deficiency and other anemia (2 sources) Iron deficiency anemia, unspecified; Translations: [Iron deficiency anemia, unspecified iron deficiency anemia type] Onset: 05-19-2023 Episodic Diabetes mellitus without complication (3 sources) Increased glucose level; Translations: [Other abnormal glucose] Onset: 01-23-2024 01-20-2024 Episodic Fluid and electrolyte disorders (3 sources) Hyponatremia; Translations: [Hypo-osmolality and hyponatremia] Onset: 06-15-2024 06-13-2024 Episodic Genitourinary symptoms and ill-defined conditions (9 sources) Acute retention of urine ; Translations: [Other retention of urine] Onset: 06-29-2024 07-07-2024 Episodic Hemorrhoids (20 sources) Internal hemorrhoids; Translations: [Other hemorrhoids] Onset: 08-24-2006 08-24-2006 Episodic Other aftercare (1 source) terminal gauger (current) use of anticoagulants; Translations: [longterm (current) use of anticoagulants] Onset: 03-29-2023 Episodic Other and unspecified benign neoplasm (20 sources) Benign neoplasm of colon; Translations: [Benign neoplasm of colon, unspecified] Onset: 08-24-2006 08-24-2006 Episodic Other and unspecified benign neoplasm (20 sources) History of polyp of colon; Translations: [Personal history of colonic polyps] Onset: 05-20-2023 05-02-2023 Episodic Other bone disease and musculoskeletal deformities (20 sources) Avascular necrosis of bone; Translations: [Idiopathic aseptic necrosis of unspecified bone] Onset: 08-24-2010 Resolved: 01-17-2023 08-24-2010 Chronic Other circulatory disease (1 source) Personal history of other diseases of the circulatory system; Translations: [Status post ablation of atrial flutter] Onset: 03-28-2023 Episodic Other connective tissue disease (20 sources) Enthesopathy of ankle AND/OR tarsus; Translations: [Other enthesopathy of unspecified foot and ankle] Onset: 07-05-2008 07-05-2008 Episodic Other connective tissue disease (20 sources) H/O: arthritis; Translations: [Personal history of other diseases of the musculoskeletal system and connective tissue] Onset: 05-19-2023 05-19-2023 Episodic Other connective tissue disease (20 sources) Pain in limb; Translations: [Pain in unspecified limb] Onset: 10-09-2007 Resolved: 10-30-2018 10-30-2018 Episodic Other ear and sense organ disorders (1 source) Impacted cerumen, bilateral; Translations: [Bilateral impacted cerumen] Onset: 03-29-2024 Episodic Other fractures (1 source) Collapsed vertebra, not elsewhere classified, site unspecified, initial encounter for fracture; Translations: [Collapsed vertebra, not elsewhere classified, site unspecified, initial encounter for fracture] Onset: 06-29-2024 Episodic Other gastrointestinal disorders (20 sources) Dysphagia; Translations: [Dysphagia, unspecified] Onset: 05-20-2023 05-20-2023 Episodic Other lower respiratory disease (1 source) Dyspnea, unspecified; Translations: [Dyspnea, unspecified type] Onset: 03-29-2023 Episodic Other nervous system disorders (20 sources) Skin sensation disturbance; Translations: [Unspecified disturbances of skin sensation] Onset: 10-09-2007 Resolved: 10-30-2018 10-30-2018 Episodic Other nutritional; endocrine; and metabolic disorders (1 source) Abnormal weight gain; Translations: [Abnormal weight gain] Onset: 03-21-2024 Episodic Other upper respiratory infections (2 sources) Acute upper respiratory infection; Translations: [Acute upper respiratory infection, unspecified] Onset: 09-03-2024 09-03-2024 Episodic Rehabilitation care; fitting of prostheses; and adjustment of devices (20 sources) Patient encounter status; Translations: [Other physical therapy] Onset: 10-01-2010 10-01-2010 Episodic Residual codes; unclassified (20 sources) H/O cardiac surgery; Translations: [Other specified postprocedural states] Onset: 12-21-2022 12-21-2022 Episodic Residual codes; unclassified (20 sources) History of atrial flutter; Translations: [Other specified postprocedural states] Onset: 03-28-2023 03-28-2023 Episodic Residual codes; unclassified (2 sources) Other specified personal risk factors, not elsewhere classified; Translations: [Other specified personal history presenting hazards to health] Onset: 03-29-2023 03-28-2023 Episodic Residual codes; unclassified (4 sources) Other specified postprocedural states; Translations: [History of right-sided carotid endarterectomy] Onset: 12-21-2022 Episodic Residual codes; unclassified (1 source) Localized edema; Translations: [Bilateral leg edema] Onset: 07-24-2024 Episodic Screening and history of mental health and substance abuse codes (20 sources) Ex-smoker; Translations: [Personal history of nicotine dependence] Onset: 05-19-2023 05-19-2023 Episodic Spondylosis; intervertebral disc disorders; other back problems (20 sources) Tenderness of neck; Translations: [Cervicalgia] Onset: 07-22-2024 05-09-2023 Episodic Unclassified (1 source) Occlusion and stenosis of bilateral carotid arteries Onset: 01-20-2018 Unclassified (1 source) Problem Results Test Name Value Interpretation Reference Range Facility Basic Metabolic Profile (BMP )on 01-02-2025 BUN/CRE 25.0 RATIO High 10-20 [facility] Comment on above: Order Comment: Repea t 1 week to 10 days after starting Lasix Performed By: #### L 500.2500, L300.3900 ####[facility] [address] [place], [address] Calcium [Mass/Vol] 9.5 mg/dL Normal 7.6-11.0 [facility] Comment on above: Order Comment: Repea t 1 week to 10 days after starting Lasix Performed By: #### L 500.2500, L300.3900 ####[facility] [address] [place], [address] Chloride [Moles/Vol] 103 mmol/L Normal 98-108 [facility] Comment on above: Order Comment: Repea t 1 week to 10 days after starting Lasix Performed By: #### L 500.2500, L300.3900 ####[facility] [address] [place], [address] CO2 [Moles/Vol] 22.9 mmol/L Normal 21.0-32.0 [facility] Comment on above: Order Comment: Repea t 1 week to 10 days after starting Lasix Performed By: #### L 500.2500, L300.3900 ####[facility] [address] [place], [address] Creatinine [Mass/Vol] 1.00 mg/dL Normal 0.70-1.20 [facility] Comment on above: Order Comment: Repea t 1 week to 10 days after starting Lasix Performed By: #### L 500.2500, L300.3900 ####[facility] [address] [place], [address] GAP 13 Normal 5-15 [facility] Comment on above: Order Comment: Repea t 1 week to 10 days after starting Lasix Performed By: #### L 500.2500, L300.3900 ####[facility] [address] [place], [address] GFR/1.73 sq M.predicted among non-blacks MDRD (S/P/Bld) [Vol rate/Area] 77 mL/min/{1.73_m2} Normal >60 [facility] Comment on above: Order Comment: Repea t 1 week to 10 days after starting Lasix Result Comment: mL/m in/1.73m2 CKD-EPI Creatinine Equation (2020) Performed By: #### L 500.2500, L300.3900 ####[facility] [address] [place], [address] Glucose [Mass/Vol] 111 mg/dL High 70-99 [facility] Comment on above: Order Comment: Repea t 1 week to 10 days after starting Lasix Performed By: #### L 500.2500, L300.3900 ####[facility] [address] [place], [address] Potassium [Moles/Vol] 4.7 mmol/L Normal 3.3-5.1 [facility] Comment on above: Order Comment: Repea t 1 week to 10 days after starting Lasix Performed By: #### L 500.2500, L300.3900 ####[facility] [address] [place], [address] Sodium [Moles/Vol] 139 mmol/L Normal 133-145 [facility] Comment on above: Order Comment: Repea t 1 week to 10 days after starting Lasix Performed By: #### L 500.2500, L300.3900 ####[facility] [address] [place], [address] Urea nitrogen [Mass/Vol] 25 mg/dL High 4-19 [facility] Comment on above: Order Comment: Repea t 1 week to 10 days after starting Lasix Performed By: #### L 500.2500, L300.3900 ####[facility] [address] [place], [address] Chest PA and Lateralon 01-02 Chest PA and Lateral Normal [facility] Prothrombin Time w/INRon INR Coag (PPP) [Relative time] 1.3 {INR} Normal [facility] Comment on above: Performed By: #### L 500.2500, L300.3900 ####[facility] [address] [place], [address] PT Coag (PPP) [Time] 16.6 s High 11.7-14.9 [facility] Comment on above: Performed By: #### L 500.2500, L300.3900 ####[facility] [address] [place], [address] Bone density reportOrdered B y: Mario Trujillo on 12-13-2024 Study report Skeletal system DXA [facility] Imaging Services [address] [place] [address] Dexa Bone Density Study MR#: [id number] Acct: [id number] Name: SHELTON FOX Rep #: [id number] : 1945 M 79 From: Mahendra Trujillo MD PCP: Dr. Michael Ko MD Status: ROMARIO C BULL Study:Dexa Bone Density Study Date of Exam: 12/13/24 Exam# [id number] Ordering Dr: Michael Ko MD PROCEDURE: DEXA BONE DENSITY STUDY 12/13/2024 REASON FOR EXAM: M, age 79 y/o . Postmenopausal. TECHNIQUE: DXA scan of sites with data reported below. REFERENCE LINKS: ISCD Adult Positions COMPARISON: None FINDINGS: BMD and T-SCORES Lumbar spine: 1.112 g/cm2, T-score 0.2 Levels: L1 through L4 Right femoral neck: 0.710 g/cm2, T-score -1.6 Femoral neck comparison data not recommended for monitoring change. Right total hip: 0.840 g/cm2, T-score -1.3 The World Health Organization has defined the following categories based on bonedensity: Normal bone density: T-score equal to or greater than -1.0 Osteopenia: T-score between -1.0 and -2.5 Osteoporosis: T-score equal to or less than -2.5 The patient does meet the pharmacological treatment recommendations for prevention of osteoporosis. BD/Dexa Bone Density Study IMPRESSION: OSTEOPENIA. Recommend follow-up as clinically warranted. Reading Location: [id number] CC: Dr. Michael Ko MD ~ [employer] Operator: Signed [facility] Dexa Bone Density Studyon Dexa Bone Density Study Normal [facility] Carotid Duplex Ultrasoundon 12-12-2024 Carotid Duplex Ultrasound Normal [facility] Duplex ultrasound of carotid artery reportOrdered By: Miller Alexandre on 12-12-2024 Study report [facility] Cardi[facility] Services [address] [place] [address] Carotid Duplex Ultrasound 12/12/24 1254 MR#: [id number] Acct: [id number] Name: SHELTON FOX Rep #:[id number] : 1945 79 From: Miller Linares Attending Dr: MARYJANE Hunter Stat us: REG CLI Ordering Dr: Phoebe Troncoso Date: Location: [facility] Sex: M C Admitted: Reason For Study Reason For Study: HX Rt CCA/ICA CEA Rt. Velocities/BP Lt. Velocities/BP Prox CCA 113.9/13.0 cm/sec. Prox CCA 80.6/21.6 cm/sec. Mid CCA 111.1/14.5 cm/sec. Mid CCA 159.7/30.1 cm/sec. Dist CCA 94.9/11.9 cm/sec. Dist CCA 180.4/30.1 cm/sec. Prox ICA 121.7/29.9 cm/sec. Prox ICA 132.4/24.8 cm/sec. Mid ICA 123.5/30.3 cm/sec. Mid ICA 93.9/22.2 cm/sec. Dist ICA 96.1/24.8 cm/sec. Dist ICA 104.8/20.0 cm/sec. Rt. ICA/CCA = 1.1. Lt. ICA/CCA = 0.8. Prox ECA 87.7/0.0 cm/sec. Prox ECA 265.2/6.3 cm/sec. Rt. Vert. 33.1/6.0 cm/sec. Lt. Vert. 57.2/14.2 cm/sec. Right Extracranial There is heterogeneous, smooth atherosclerotic plaque noted in the right common carotid artery. There is heterogeneous, smooth atherosclerotic plaque noted in the right internal carotid artery. There is heterogeneous, irregular atherosclerotic plaque noted in the right external carotid artery. Antegrade flow is noted in the right vertebral artery. Left Extracranial There is heterogeneous, irregular atherosclerotic plaque noted in the left common carotid artery. The atherosclerotic plaque causes acoustic shadowing. There is heterogeneous, irregular atherosclerotic plaque noted in the left internal carotid artery. The atherosclerotic plaque causes acoustic shadowing. There is heterogeneous, irregular atherosclerotic plaque noted in the left external carotid artery. Antegrade flow is noted in theleft vertebral artery. Procedure Carotid Duplex 51590. This is a Carotid Duplex examination using B-mode, color flow and specral Doppler. The exam was diagnostic. Exam performed in department. VL/Carotid Duplex Ultrasound Interpretation Summary Mild (<50%) stenosis right extracranial internal carotid. Moderate (50-69%) stenosis left extracranial internal carotid. Patent and antegrade vertebrals bilaterally. ___ Ordering Physician: Phoebe Troncoso Referring Physician: Michael Ko Chi Performed By: Soren Santacruz, T 12/12/241718 Date _ Miller Alexandre MD CC: MARYJANE Hunter; Dr. Michael Ko MD ~ Date Dictated: 12/12/24 1254 Date Transcribed: 12/12/241718 [employer] Operator: Signed [facility] Work Phone: Absolute lymphocyte countOrd ered By: Michael Ko on 12-11-2024 Lymphocytes Auto (Unsp spec) [#/Vol] 2.81 10*3/uL 0.83-4.51 [facility] Absolute neutrophil countOrd ered By: Michael Ko on 12-11-2024 Neutrophils (Bld) [#/Vol] 4.7 10*3/uL 2.0-7.7 [facility] Anion gap in Serum or Plasma Ordered By: Michael Ko on 12-11-2024 Anion gap [Moles/Vol] 12 mmol/L 5-15 [facility] Automated lymphocyte count a s percentage of total leukocytesOrdered By: Michael Ko on 12-11-2024 Lymphocytes/100 WBC Auto (Unsp spec) 34.0 % 19-41 [facility] BUN/creatinine ratioOrdered By: Michael Ko on 12-11-2024 Urea nitrogen/Creatinine [Mass ratio] 21.0 mg/mg High 10-20 [facility] Basophil percentageOrdered B y: Michael Ko on 12-11-2024 Basophils/100 WBC (Bld) 0.7 % 0-1 [facility] Bilirubin, totalOrdered By: Michael Ko on 12-11-2024 Bilirubin [Mass/Vol] 0.46 mg/dL 0.00-1.30 [facility] CBC W/Diff, Automatedon 05-2 -2024 Absolute Lymph 2.81 X10 3/uL Normal 0.83-4.51 [facility] Comment on above: Performed By: #### L 501.9520, L506.1001, L501.1400, L100.0100, L500.4050, L500.4100, L3890.6301 ####[facility] [address] [place], [address] Absolute Neut 4.7 X10 3/uL Normal 2.0-7.7 [facility] Comment on above: Performed By: #### L 501.9520, L506.1001, L501.1400, L100.0100, L500.4050, L500.4100, L3890.6301 ####[facility] [address] [place], [address] Basophils/100 WBC (Bld) 0.7 % Normal 0-1 [facility] Comment on above: Performed By: #### L 501.9520, L506.1001, L501.1400, L100.0100, L500.4050, L500.4100, L3890.6301 ####[facility] [address] [place], [address] Eosinophils/100 WBC (Bld) 0.8 % Normal 0-5 [facility] Comment on above: Performed By: #### L 501.9520, L506.1001, L501.1400, L100.0100, L500.4050, L500.4100, L3890.6301 ####[facility] [address] [place], [address] Erythrocyte distribution width (RBC) [Ratio] 14.7 % High 11.6-14.6 [facility] Comment on above: Performed By: #### L 501.9520, L506.1001, L501.1400, L100.0100, L500.4050, L500.4100, L3890.6301 ####[facility] [address] [place], [address] Hematocrit (Bld) [Volume fraction] 38.4 % Low 40-54 [facility] Comment on above: Performed By: #### L 501.9520, L506.1001, L501.1400, L100.0100, L500.4050, L500.4100, L3890.6301 ####[facility] [address] [place], [address] Hemoglobin (Bld) [Mass/Vol] 12.6 g/dL Low 13.0-16.5 [facility] Comment on above: Performed By: #### L 501.9520, L506.1001, L501.1400, L100.0100, L500.4050, L500.4100, L3890.6301 ####[facility] [address] [place], [address] IG% 0.400 Normal 0.0-0.9 [facility] Comment on above: Result Comment: IG% - Immature Granulocytes (promyelocytes, myelocytes andmetamyelocytes) > 1% indicates that a LEFT SHIFT is Present. Performed By: #### L 501.9520, L506.1001, L501.1400, L100.0100, L500.4050, L500.4100, L3890.6301 ####[facility] [address] [place], [address] Lymphocytes/100 WBC (Bld) 34.0 % Normal 19-41 [facility] Comment on above: Performed By: #### L 501.9520, L506.1001, L501.1400, L100.0100, L500.4050, L500.4100, L3890.6301 ####[facility] [address] [place], [address] MCH (RBC) [Entitic mass] 28.9 pg Normal 27.0-32.0 [facility] Comment on above: Performed By: #### L 501.9520, L506.1001, L501.1400, L100.0100, L500.4050, L500.4100, L3890.6301 ####[facility] [address] [place], [address] MCHC (RBC) [Mass/Vol] 32.8 g/dL Normal 32-36 [facility] Comment on above: Performed By: #### L 501.9520, L506.1001, L501.1400, L100.0100, L500.4050, L500.4100, L3890.6301 ####[facility] [address] [place], [address] MCV (RBC) [Entitic vol] 88.1 fL Normal 80-94 [facility] Comment on above: Performed By: #### L 501.9520, L506.1001, L501.1400, L100.0100, L500.4050, L500.4100, L3890.6301 ####[facility] [address] [place], [address] Monocytes/100 WBC (Bld) 7.3 % Normal 0-10 [facility] Comment on above: Performed By: #### L 501.9520, L506.1001, L501.1400, L100.0100, L500.4050, L500.4100, L3890.6301 ####[facility] [address] [place], [address] Neutrophils/100 WBC (Bld) 56.8 % Normal 47-70 [facility] Comment on above: Performed By: #### L 501.9520, L506.1001, L501.1400, L100.0100, L500.4050, L500.4100, L3890.6301 ####[facility] [address] [place], [address] Nucleated RBC (Bld) [#/Vol] 0 10*3/uL Normal 0-5 [facility] Comment on above: Performed By: #### L 501.9520, L506.1001, L501.1400, L100.0100, L500.4050, L500.4100, L3890.6301 ####[facility] [address] [place], [address] Platelet mean volume (Bld) [Entitic vol] 9.9 fL Normal 6.2-12.0 [facility] Comment on above: Performed By: #### L 501.9520, L506.1001, L501.1400, L100.0100, L500.4050, L500.4100, L3890.6301 ####[facility] [address] [place], [address] Platelets (Bld) [#/Vol] 253 10*3/uL Normal 150-450 [facility] Comment on above: Performed By: #### L 501.9520, L506.1001, L501.1400, L100.0100, L500.4050, L500.4100, L3890.6301 ####[facility] [address] [place], [address] RBC (Bld) [#/Vol] 4.36 10*6/uL Low 4.6-6.2 [facility] Comment on above: Performed By: #### L 501.9520, L506.1001, L501.1400, L100.0100, L500.4050, L500.4100, L3890.6301 ####[facility] [address] [place], [address] RDW SD 47.5 fl High 35.1-43.9 [facility] Comment on above: Performed By: #### L 501.9520, L506.1001, L501.1400, L100.0100, L500.4050, L500.4100, L3890.6301 ####[facility] [address] [place], [place], [address] WBC (Bld) [#/Vol] 8.3 10*3/uL Normal 4.4-11.0 [facility] Comment on above: Performed By: #### L 501.9520, L506.1001, L501.1400, L100.0100, L500.4050, L500.4100, L3890.6309 ####[facility] [address] [place], [address] Calculated very low density lipoprotein (VLDL) cholesterol measurementOrdered By: Michael Ko on 12-11-2024 Calculated very low density lipoprotein (VLDL) cholesterol measurement 20 mg/dL 5-40 [facility] Carbon dioxide, total [Moles /volume] in Central venous bloodOrdered By: Michael Ko on 12-11-2024 CO2 [Moles/Vol] 23.6 mmol/L 21.0-32.0 [facility] Cardiology Visit Reporton Cardiology Visit Report Normal [facility] Chloride assayOrdered By: Julian Ko on 12-11-2024 Chloride [Moles/Vol] 100 mmol/L 98-108 [facility] Comprehensive Metabolic Prof ilon 12-11-2024 Albumin [Mass/Vol] 4.1 g/dL Normal 3.4-4.8 [facility] Comment on above: Performed By: #### L 501.9520, L506.1001, L501.1400, L100.0100, L500.4050, L500.4100, L3890.6301 ####[facility] [address] [place], [address] Albumin/Globulin [Mass ratio] 1.3 {ratio} Normal 0.9-2.4 [facility] Comment on above: Performed By: #### L 501.9520, L506.1001, L501.1400, L100.0100, L500.4050, L500.4100, L3890.6301 ####[facility] [address] [place], [address] ALK PHOS 99 U/L Normal 40-129 [facility] Comment on above: Performed By: #### L 501.9520, L506.1001, L501.1400, L100.0100, L500.4050, L500.4100, L3890.6301 ####[facility] [address] [place], [address] ALT [Catalytic activity/Vol] 15 U/L Normal <=46 [facility] Comment on above: Performed By: #### L 501.9520, L506.1001, L501.1400, L100.0100, L500.4050, L500.4100, L3890.6301 ####[facility] [address] [place], [address] AST [Catalytic activity/Vol] 23 U/L Normal <=37 [facility] Comment on above: Performed By: #### L 501.9520, L506.1001, L501.1400, L100.0100, L500.4050, L500.4100, L3890.6301 ####[facility] [address] [place], [address] Bilirubin [Mass/Vol] 0.46 mg/dL Normal 0.00-1.30 [facility] Comment on above: Performed By: #### L 501.9520, L506.1001, L501.1400, L100.0100, L500.4050, L500.4100, L3890.6301 ####[facility] [address] [place], [address] BUN/CRE 21.0 RATIO High 10-20 [facility] Comment on above: Performed By: #### L 501.9520, L506.1001, L501.1400, L100.0100, L500.4050, L500.4100, L3890.6301 ####[facility] [address] [place], [address] Calcium [Mass/Vol] 9.5 mg/dL Normal 7.6-11.0 [facility] Comment on above: Performed By: #### L 501.9520, L506.1001, L501.1400, L100.0100, L500.4050, L500.4100, L3890.6301 ####[facility] [address] [place], [address] Chloride [Moles/Vol] 100 mmol/L Normal 98-108 [facility] Comment on above: Performed By: #### L 501.9520, L506.1001, L501.1400, L100.0100, L500.4050, L500.4100, L3890.6301 ####[facility] [address] [place], [address] CO2 [Moles/Vol] 23.6 mmol/L Normal 21.0-32.0 [facility] Comment on above: Performed By: #### L 501.9520, L506.1001, L501.1400, L100.0100, L500.4050, L500.4100, L3890.6301 ####[facility] [address] [place], [address] Creatinine [Mass/Vol] 1.01 mg/dL Normal 0.70-1.20 [facility] Comment on above: Performed By: #### L 501.9520, L506.1001, L501.1400, L100.0100, L500.4050, L500.4100, L3890.6301 ####[facility] [address] [place], [address] GAP 12 Normal 5-15 [facility] Comment on above: Performed By: #### L 501.9520, L506.1001, L501.1400, L100.0100, L500.4050, L500.4100, L3890.6301 ####[facility] [address] [place], [address] GFR/1.73 sq M.predicted among non-blacks MDRD (S/P/Bld) [Vol rate/Area] 76 mL/min/{1.73_m2} Normal >60 [facility] Comment on above: Result Comment: mL/m in/1.73m2 CKD-EPI Creatinine Equation (2020) Performed By: #### L 501.9520, L506.1001, L501.1400, L100.0100, L500.4050, L500.4100, L3890.6301 ####[facility] [address] [place], [address] Globulin (S) [Mass/Vol] 3.1 g/dL Normal 2.2-4.2 [facility] Comment on above: Performed By: #### L 501.9520, L506.1001, L501.1400, L100.0100, L500.4050, L500.4100, L3890.6301 ####[facility] [address] [place], [address] Glucose [Mass/Vol] 104 mg/dL High 70-99 [facility] Comment on above: Performed By: #### L 501.9520, L506.1001, L501.1400, L100.0100, L500.4050, L500.4100, L3890.6301 ####[facility] [address] [place], [address] Potassium [Moles/Vol] 4.6 mmol/L Normal 3.3-5.1 [facility] Comment on above: Performed By: #### L 501.9520, L506.1001, L501.1400, L100.0100, L500.4050, L500.4100, L3890.6301 ####[facility] [address] [place], [address] Sodium [Moles/Vol] 136 mmol/L Normal 133-145 [facility] Comment on above: Performed By: #### L 501.9520, L506.1001, L501.1400, L100.0100, L500.4050, L500.4100, L3890.6301 ####[facility] [address] [place], [address] T PROT 7.2 g/dL Normal 5.9-8.4 [facility] Comment on above: Performed By: #### L 501.9520, L506.1001, L501.1400, L100.0100, L500.4050, L500.4100, L3890.6301 ####[facility] [address] [place], [address] Urea nitrogen [Mass/Vol] 21 mg/dL High 4-19 [facility] Comment on above: Performed By: #### L 501.9520, L506.1001, L501.1400, L100.0100, L500.4050, L500.4100, L3890.6301 ####[facility] [address] [place], [address] Eosinophil percentageOrdered By: Michael Maikel on 12-11-2024 Eosinophils/100 WBC (Bld) 0.8 % 0-5 [facility] Erythrocyte distribution wid th ratioOrdered By: Michael Maikel on 12-11-2024 Erythrocyte distribution width (RBC) [Ratio] 14.7 % High 11.6-14.6 [facility] Erythrocyte distribution wid th standard deviationOrdered By: [facility] 12-[facility] Erythrocyte distribution width (RBC) [Ratio] 47.5 fl High 35.1-43.9 [facility] Glomerular filtration rate ( GFR) estimation/1.73 sq m using serum, plasma, or whole bOrdered By: Michael Ko on 12-11-2024 GFR/1.73 sq M.predicted among non-blacks MDRD (S/P/Bld) [Vol rate/Area] 76 mL/min/{1.73_m2} >60 [facility] Comment on above: mL/min/1.73m2 CKD-EP I Creatinine Equation (2020) Hematocrit Auto (Bld) [Volum e fraction]Ordered By: Michael Ko on 12-11-2024 Hematocrit (Bld) [Volume fraction] 38.4 % Low 40-54 [facility] Hemoglobin measurementOrdere d By: Michael Ko on 12-11-2024 Hemoglobin (Bld) [Mass/Vol] 12.6 g/dL Low 13.0-16.5 [facility] Hepatitis C Antibodyon 12-11 Hepatitis C Ab Non-Reactive Normal Nonreactive [facility] Comment on above: Result Comment: Reac tive: Presumptive evidence of antibodies to HCV. FollowC recommendations for supplemental testing.Non-Reactive: Antibodies to HCV were not detected; does notexclude the possibility of exposure to HCVReactive Results are presumptive evidence of antibodies toHCV. Follow CDC recommendations for supplemental testing.Order confirmation testing: HCV Quant by PCR testing -HCVPCR #[id number] Non Reactive: < 0.8 Equivocal: >/= 0.8 to < 1.0 Reactive: >/= 1.0The CDC requires that a reactive/equivocal HCV antibodyresult be sent out for confirmation. HCV Quant by PCRtesting. Performed By: #### L 501.9520, L506.1001, L501.1400, L100.0100, L500.4050, L500.4100, L3890.6301 ####[facility] [address] [place], [address] Immature granulocytes/100 WB C Auto (Bld)Ordered By: Michael Ko on 12-11-2024 Immature granulocytes/100 WBC (Bld) 0.400 % 0.0-0.9 [facility] Comment on above: IG% - Immature Granu locytes (promyelocytes, myelocytes and metamyelocytes) > 1% indicates that a LEFT SHIFT is Present. LDL calc ser/plasOrdered By: Michael Ko on 12-11-2024 Cholesterol in LDL [Mass/Vol] 97 mg/dL [facility] Comment on above: Rxnrzpqmyr=089-229 m g/dL & Higher Yplh=744 mg/dL or greater Laboratory - Chemistry and C hemistry - challengeOrdered By: Michael Ko on 12-11-2024 AST [Catalytic activity/Vol] 23 U/L <38 [facility] Lipid Profileon 12-11-2024 CHOL:HDL 3.44 Normal [facility] Comment on above: Performed By: #### L 501.9520, L506.1001, L501.1400, L100.0100, L500.4050, L500.4100, L3890.6301 ####[facility] [address] [place], [address] Cholesterol [Mass/Vol] 165 mg/dL Normal <=200 [facility] Comment on above: Result Comment: Chol esterol level, Desirable <200 mg/dLBorderline high cholesterol 200-239 mg/dLHigh cholesterol >=240 mg/dLRecommendations of the NCEP Adult Treatment Panel for thefollowing risk-cutoff thresholds for the [place] Americanpulation. Performed By: #### L 501.9520, L506.1001, L501.1400, L100.0100, L500.4050, L500.4100, L3890.6301 ####[facility] [address] [place], [address] Cholesterol in HDL [Mass/Vol] 48 mg/dL Normal [facility] Comment on above: Result Comment: Shelli onal Cholesterol Education Program (NCEP) guidelines:<40 mg/dL: Low HDL-cholesterol (major risk factor for CHD)>= 60 mg/dL: High HDL-cholesterol (negative risk factor forCHD)HDL-cholesterol is affected by a number of factors, e.g.smoking, exercise, hormones, sex and age. Performed By: #### L 501.9520, L506.1001, L501.1400, L100.0100, L500.4050, L500.4100, L3890.6301 ####[facility] [address] [place], [address] Cholesterol in LDL [Mass/Vol] 97 mg/dL Normal [facility] Comment on above: Result Comment: Bord fbmhgn=178-055 mg/dL Higher Kqyj=978 mg/dL or greater Performed By: #### L 501.9520, L506.1001, L501.1400, L100.0100, L500.4050, L500.4100, L3890.6301 ####[facility] [address] [place], [place], [address] Cholesterol in VLDL [Mass/Vol] 20 mg/dL Normal 5-40 [facility] Comment on above: Performed By: #### L 501.9520, L506.1001, L501.1400, L100.0100, L500.4050, L500.4100, L3890.6301 ####[facility] [address] [place], [place], [id number] Triglyceride [Mass/Vol] 101 mg/dL Normal [facility] Comment on above: Result Comment: The drugs N-Acetylcysteine and Metamizole may falselydepress this assay.Normal range: <150 mg/dLBorderline High: 150-199 mg/dLHigh: 200-499 mg/dLVery High: >500 mg/dL Performed By: #### L 501.9520, L506.1001, L501.1400, L100.0100, L500.4050, L500.4100, L3890.6301 ####[facility] [address] [place], [address] MCV (mean corpuscular volume ) determinationOrdered By: Michael Ko on 12-11-2024 MCV (RBC) [Entitic vol] 88.1 fL 80-94 [facility] Mean corpuscular hemoglobin (MCH) determinationOrdered By: Michael Ko on 12-11-2024 MCH (RBC) [Entitic mass] 28.9 pg 27.0-32.0 [facility] Mean corpuscular hemoglobin concentration (MCHC) determinationOrdered By: Michael Ko on 12-11-2024 MCHC (RBC) [Mass/Vol] 32.8 g/dL 32-36 [facility] Mean platelet volume determi nationOrdered By: Michael Ko on 12-11-2024 Platelet mean volume (Bld) [Entitic vol] 9.9 fL 6.2-12.0 [facility] Monocyte percentageOrdered B y: Michael Ko on 12-11-2024 Monocytes/100 WBC (Bld) 7.3 % 0-10 [facility] Neutrophil percentageOrdered By: Michael Ko on 12-11-2024 Neutrophils/100 WBC (Bld) 56.8 % 47-70 [facility] Nucleated red blood cell per centageOrdered By: Michael Ko on 12-11-2024 Nucleated RBC/100 WBC (Bld) [Ratio] 0 % 0-5 [facility] Platelet countOrdered By: Julian Ko on 12-11-2024 Platelets (Bld) [#/Vol] 253 10*3/uL 150-450 [facility] Potassium measurement (mass/ volume)Ordered By: Michael Ko on 12-11-2024 Potassium (Unsp spec) [Mass/Vol] 4.6 mmol/L 3.3-5.1 [facility] RBC Auto (Bld) [#/Vol]Ordere d By: Michael Ko on 12-11-2024 RBC (Bld) [#/Vol] 4.36 10*6/uL Low 4.6-6.2 [facility] Screening total cholesterol/ high density lipoprotein (HDL) cholesterol ratioOrdered By: Michael Ko on 12-11-2024 Cholesterol.total/Cho lesterol in HDL [Mass ratio] 3.44 {ratio} [facility] Serum creatinine measurement (mass/volume)Ordered By: Michael Ko on 12-11-2024 Creatinine [Mass/Vol] 1.01 mg/dL 0.70-1.20 [facility] Serum globulin measurementOr dered By: Michael Ko 12-11-2024 Globulin (S) [Mass/Vol] 3.1 g/dL 2.2-4.2 [facility] Serum glucose measurement (m ass/volume)Ordered By: Michael Ko 12-11-2024 Glucose [Mass/Vol] 104 mg/dL High 70-99 [facility] Serum or plasma alanine condon otransferase (ALT) measurementOrdered By: Michael Ko 12-11-2024 ALT [Catalytic activity/Vol] 15 U/L <47 [facility] Serum or plasma albumin mikel urement (mass/volume)Ordered By: Michael Maikel 12-11-2024 Albumin [Mass/Vol] 4.1 g/dL 3.4-4.8 [facility] Serum or plasma albumin/glob ulin mass ratioOrdered By: Michael Maikel 12-11-2024 Albumin/Globulin [Mass ratio] 1.3 {ratio} 0.9-2.4 [facility] Serum or plasma alkaline radha sphatase measurementOrdered By: Michael Ko 12-11-2024 ALP [Catalytic activity/Vol] 99 U/L 40-129 [facility] Serum or plasma calcium mikel urement (mass/volume)Ordered By: Michael Maikel 12-11-2024 Calcium [Mass/Vol] 9.5 mg/dL 7.6-11.0 [facility] Serum or plasma cholesterol in HDL measurement (mass/volume)Ordered By: Michael Ko 12-11-2024 Cholesterol in HDL [Mass/Vol] 48 mg/dL >40 [facility] Comment on above: National Cholesterol Education Program (NCEP) guidelines:<40 mg/dL: Low HDL-cholesterol (major risk factor for CHD)>= 60 mg/dL: High HDL-cholesterol (negative risk factor for CHD)HDL-cholesterol is affected by a number of factors, e.g. smoking, exercise, hormones, sex and age. Serum or plasma cholesterol measurement (mass/volume)Ordered By: Michael Ko 12-11-2024 Cholesterol [Mass/Vol] 165 mg/dL <201 [facility] Comment on above: Cholesterol level, D esirable <200 mg/dLBorderline high cholesterol 200-239 mg/dLHigh cholesterol >=240 mg/dLRecommendations of the NCEP Adult Treatment Panel for the following risk-cutoff thresholds for the [place] population. Serum or plasma urea nitroge n measurement (mass/volume)Ordered By: Michael Ko on 12-11-2024 Urea nitrogen [Mass/Vol] 21 mg/dL High 4-19 [facility] Serum or plasma uric acid me asurement (mass/volume)Ordered By: Michael Ko on 12-11-2024 Urate [Mass/Vol] 4.9 mg/dL 3.5-7.2 [facility] Comment on above: The drugs N-Acetylcy steine and Metamizole may falsely depress this assay. Sodium levelOrdered By: Michael Ko on 12-11-2024 Sodium [Moles/Vol] 136 mmol/L 133-145 [facility] TSH DL <= 0.005 mIU/L QnOrde red By: Michael Ko on 12-11-2024 TSH Qn 1.010 uIU/mL 0.300-4.200 [facility] Thyroid Stim Hormone (TSH)on 12-11-2024 TSH 1.010 uIU/mL Normal 0.300-4.200 [facility] Comment on above: Performed By: #### L 501.9520, L506.1001, L501.1400, L100.0100, L500.4050, L500.4100, L3890.6301 ####[facility] [address] [place], [address] Total proteinOrdered By: Michael Ko on 12-11-2024 Protein [Mass/Vol] 7.2 g/dL 5.9-8.4 [facility] Triglycerides measurementOrd ered By: Michael Ko on 12-11-2024 Triglyceride [Mass/Vol] 101 mg/dL <199 [facility] Comment on above: The drugs N-Acetylcy steine and Metamizole may falsely depress this assay. Normal range: <150 mg/dLBorderline High: 150-199 mg/dLHigh: 200-499 mg/dLVery High: >500 mg/dL Uric Acidon 12-11-2024 URIC 4.9 mg/dL Normal 3.5-7.2 [facility] Comment on above: Result Comment: The drugs N-Acetylcysteine and Metamizole may falselydepress this assay. Performed By: #### L 501.9520, L506.1001, L501.1400, L100.0100, L500.4050, L500.4100, L3890.6301 ####[facility] [address] [place], [address] Vitamin D,25 Hydroxyon 12-11 Vitamin D 25-OH 39.2 ng/mL Normal 30-100 [facility] Comment on above: Result Comment: Dea min D StatusDeficiency: <20 ng/mL (50nmol/L)Insufficiency: 20-30 ng/mL (50-75 nmol/L)Sufficiency: 30-100 ng/mL (75-250 nmol/L)Toxicity: >100 ng/mL (>250 nmol/L) Performed By: #### L 501.9520, L506.1001, L501.1400, L100.0100, L500.4050, L500.4100, L3890.6301 ####[facility] [address] [place], [address] White blood cell (WBC) count Ordered By: Michael Ko on 12-11-2024 WBC (Bld) [#/Vol] 8.3 10*3/uL 4.4-11.0 [facility] 12-06-[address] [facility] SHELTON FOX ([id number]) 1945 M Date Time Provider Department 12/06/24 [facility] During your visit today, we recorded the following information about you: Yasmeen Oliveros MA 12/06/2024 10:07 AM Signed Office received a Medical Records Release form, requesting all records be faxed from this office to [facility]. F: . Routed to PCP to review and okay form to be routed to Med Recs to start process. YON Patton Mark D, MD 12/06/2024 11:28 AM Signed OK to send records as requested MD Kwadwo Kowalski Kathryn, MA 12/06/2024 11:33 AM Signed Sent to medical records to release records. Janneth Burkett MA Allergies As of Date: 12/06/2024 Noted Allergy Reaction PLAQUENIL (HYDROXYCHLOROQUINE) 01/20/2024 9 - Itching SPIRONOLACTONE 02/03/2023 14 - Other: See Comments Comments: Dizziness and severe headaches INDOCIN (INDOMETHACIN SODIUM) 05/05/2005 6 - Diarrhea MOBIC (MELOXICAM) 08/16/2014 6 - Diarrhea Date Reviewed: 11/09/2024 Reviewed by: Юлия Linn MA - Fully Assessed Reason for Visit: Release Of Medical Records [2017] Prescriptions as of 12/06/2024 - allopurinol (ZYLOPRIM) 100 mg tablet Take 1 tablet by mouth two times a day. - pantoprazole DR (PROTONIX) 20 mg tablet Take 1 tablet by mouth daily before breakfast. Take on empty stomach, 1/2 hr before meal. - lisinopril (ZESTRIL) 5 mg tablet Take 5 mg by mouth two times a day. [facility] - acetaminophen (TYLENOL) 325 mg tablet Take by mouth. - simvastatin (ZOCOR) 20 mg tablet Take 1 tablet by mouth once daily. - polyethylene glycol 3350 17 gram packet Take 17 g by mouth once daily. Dissolve dose in 4 - 8 ounces of liquid and take as directed. - aspirin 81 mg chewable tablet Take 81 mg by mouth once daily. Patient reports taking one 81mg chewable tablet by mouth once daily. - Lactobacillus acidophilus (ACIDOPHILUS ORAL) Take 1 capsule by mouth once daily. - vitamin B complex (SUPER B COMPLEX ORAL) Take 1 tablet by mouth once daily. - Magnesium Oxide 500 mg tab Take 1 tablet by mouth once daily. - furosemide (LASIX) 40 mg tablet Take 40 mg by mouth as needed. - carvedilol (COREG) 6.25 mg tablet Take 1 tablet by mouth twice daily. - multivit with minerals/lutein (MULTIVITAMIN 50 PLUS ORAL) Take 1 tablet by mouth once daily. - apixaban (ELIQUIS) 5 mg tab(s) Take 5 mg by mouth twice daily. - Melatonin 5 mg cap Take 5 mg by mouth at bedtime as needed. Meds Comments as of 07/16/2022: Pt reports no med changes in the last month 07/16/2022TP Problem List As Of Date 12/06/2024 Noted Resolved Hyperlipidemia [E78.5] 05/05/2005 Hypertension [I10] 05/05/2005 GOUT NOS [M10.9] ALLERGIC RHINITIS NOS [J30.9] HEPATOMEGALY [R16.0] 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] 08/24/2006 DIVERTICULOSIS OF COLON W/O BLEED [K57.30] 08/24/2006 BENIGN NEOPLASM LG BOWEL [D12.6] 08/24/2006 Pain in limb [M79.609] 10/09/2007 10/30/2018 Disturbance of skin sensation [R20.9] 10/09/2007 10/30/2018 ANKLE ENTHESOPATHY NEC [M77.50] 07/05/2008 CONGENITAL PES PLANUS [Q66.50] 07/05/2008 Symptomatic carotid artery stenosis, right [I65*01/17/2009 Avascular necrosis (HCC) [M87.00] 08/24/2010 01/17/2023 Shoulder joint replacement 09/28/2010 Shoulder joint replacement by other means [Z96.*10/01/2010 Other physical therapy [DHI8039] 10/01/2010 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] 06/28/2011 Gastroesophageal reflux disease [K21.9] 04/27/2017 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 PAD (peripheral artery disease) (HCC) [I73.9] 05/01/2019 Atrial fibrillation (HCC) [I48.91] 08/30/2022 Ischemic cardiomyopathy [I25.5] Status post catheter ablation of atrial fibrill*12/21/2022 Paroxysmal atrial fibrillation (HCC) [I48.0] 03/28/2023 Status post ablation of atrial flutter [Z98.890*03/28/2023 Dyspnea [R06.00] 03/29/2023 Coronary artery disease involving [place]*05/19/2023 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] 02/03/2023 Diagnosed: 05/19/2023 History of arthritis [Z87.39] 05/19/2023 Former smoker [Z87.891] 05/19/2023 Anemia [D64.9] 05/19/2023 Dysphagia [R13.10] 05/20/2023 History of colonic polyps [Z86.0100] 05/20/2023 Cardiomyopathy, unspecified type (HCC) [I42.9] 06/22/2023 Preop examination [Z01.818] 12/19/2023 S/P carotid endarterectomy [Z98.890] 12/26/2023 Encounter Status:Closed by JANNETH BURKETT on 12/06/24 Normal [facility] Anion gap in Serum or Plasma Ordered By: Osbaldo Vernon on 11-29-2024 Anion gap [Moles/Vol] 12 mmol/L 11-29 [facility] BUN/creatinine ratioOrdered By: Osbaldo Vernon on 11-29-2024 Urea nitrogen/Creatinine [Mass ratio] 21.8 mg/mg High [address] [place] [address] Basic Metabolic Profile (BMP )on 11-29-2024 BUN/CRE 21.8 RATIO High [address] [place] [address] Comment on above: Order Comment: di Performed By: #### L 503.7505, L500.2500 ####[facility] [address] [place], [address] Calcium [Mass/Vol] 9.2 mg/dL Normal 7.6-11.0 [facility] Comment on above: Order Comment: di Performed By: #### L 503.7505, L500.2500 ####[facility] [address] [place], [address] Chloride [Moles/Vol] 104 mmol/L Normal 98-108 [facility] Comment on above: Order Comment: di Performed By: #### L 503.7505, L500.2500 ####[facility] [address] [place], [address] CO2 [Moles/Vol] 21.5 mmol/L Normal 21.0-32.0 [facility] Comment on above: Order Comment: di Performed By: #### L 503.7505, L500.2500 ####[facility] [address] [place], [address] Creatinine [Mass/Vol] 0.95 mg/dL Normal 0.70-1.20 [facility] Comment on above: Order Comment: di Performed By: #### L 503.7505, L500.2500 ####[facility] [address] [place], [address] GAP 12 Normal 5-15 [facility] Comment on above: Order Comment: di Performed By: #### L 503.7505, L500.2500 ####[facility] [address] [place], [address] GFR/1.73 sq M.predicted among non-blacks MDRD (S/P/Bld) [Vol rate/Area] 81 mL/min/{1.73_m2} Normal >60 [facility] Comment on above: Order Comment: di Result Comment: mL/m in/1.73m2 CKD-EPI Creatinine Equation (2020) Performed By: #### L 503.7505, L500.2500 ####[facility] [address] [place], [address] Glucose [Mass/Vol] 86 mg/dL Normal 70-99 [facility] Comment on above: Order Comment: di Performed By: #### L 503.7505, L500.2500 ####[facility] [address] [place], [address] Potassium [Moles/Vol] 4.2 mmol/L Normal 3.3-5.1 [facility] Comment on above: Order Comment: di Performed By: #### L 503.7505, L500.2500 ####[facility] [address] [place], [address] Sodium [Moles/Vol] 137 mmol/L Normal 133-145 [facility] Comment on above: Order Comment: di Performed By: #### L 503.7505, L500.2500 ####[facility] [address] [place], [address] Urea nitrogen [Mass/Vol] 21 mg/dL High 4-19 [facility] Comment on above: Order Comment: di Performed By: #### L 503.7505, L500.2500 ####[facility] [address] [place], [address] Carbon dioxide, total [Moles /volume] in Central venous bloodOrdered By: Osbaldo Vernon on 11-29-2024 CO2 [Moles/Vol] 21.5 mmol/L 21.0-32.0 [facility] Chloride assayOrdered By: Sid Vernon on 11-29-2024 Chloride [Moles/Vol] 104 mmol/L 98-108 [facility] Glomerular filtration rate ( GFR) estimation/1.73 sq m using serum, plasma, or whole bOrdered By: Osbaldo Vernon on 11-29-2024 GFR/1.73 sq M.predicted among non-blacks MDRD (S/P/Bld) [Vol rate/Area] 81 mL/min/{1.73_m2} >60 [facility] Comment on above: mL/min/1.73m2 CKD-EP I Creatinine Equation (2020) L503.7505on 11-29-2024 Natriuretic peptide B (Bld) [Mass/Vol] 4979 pg/mL High <=1800 [facility] Comment on above: Result Comment: Hear t Failure Unlikely: < 300 pg/mLHeart Failure Likely< 50 Years: > 450 pg/mL50-75 Years: > 900 pg/mL>75 Years: > 1800 pg/mL Performed By: #### L 503.7505, L500.2500 ####[facility] [address] [place], [address] Natriuretic peptide.B prohor lupillo N-Terminal [Mass/volume] in Serum or PlasmaOrdered By: Osbaldo Vernon on 11-29-2024 Natriuretic peptide.B prohormone N-Terminal [Mass/Vol] 4979 pg/mL High <1800 [facility] Comment on above: Heart Failure Unlike ly: < 300 pg/mLHeart Failure Likely< 50 Years: > 450 pg/mL50-75 Years: > 900 pg/mL>75 Years: > 1800 pg/mL Potassium measurement (mass/ volume)Ordered By: Osbaldo Vernon on 11-29-2024 Potassium (Unsp spec) [Mass/Vol] 4.2 mmol/L 3.3-5.1 [facility] Serum creatinine measurement (mass/volume)Ordered By: Osbaldo Vernon on 11-29-2024 Creatinine [Mass/Vol] 0.95 mg/dL 0.70-1.20 [facility] Serum glucose measurement (m ass/volume)Ordered By: Osbaldo Vernon on 11-29-2024 Glucose [Mass/Vol] 86 mg/dL 70-99 [facility] Serum or plasma calcium mikel urement (mass/volume)Ordered By: Osbaldo Vernon on 11-29-2024 Calcium [Mass/Vol] 9.2 mg/dL 7.6-11.0 [facility] Serum or plasma urea nitroge n measurement (mass/volume)Ordered By: Osbaldo Vernon on 11-29-2024 Urea nitrogen [Mass/Vol] 21 mg/dL High 4-19 [facility] Sodium levelOrdered By: Zack Vernon on 11-29-2024 Sodium [Moles/Vol] 137 mmol/L 133-145 [facility] Echo Completeon 11-28-2024 Echo Complete Normal [facility] Echocardiogram study reportO rdered By: Osbaldo Vernon on 11-28-2024 Study report [facility] [address] [place] [address] Echo Complete 11/28/24 1013 MR#: [id number] Acct: [id number] Name: SHELTON FOX Rep #:[id number] : 1945 79 From: Osbaldo Vernon MD Attending Dr: MARYJANE Sarkar Status: REG CLI Ordering Dr: Karine Brasher Date: 11/28/24 Location: [facility] Sex: M C Admitted: Reason For Study Reason For Study: MURMUR Procedure This was a 2D Doppler, Color Flow transthoracic echocardiogram. Exam performed in department. Left Ventricle Normal LV size. Mild concentric left ventricular hypertrophy. Severe generalizedLV hypokinesis. LVEF estimated at 35%. Stage III diastolic dysfunction with elevated left atrial filling pressures. Right Ventricle Normal right ventricle. Atria There is moderate biatrial dilatation. Mitral Valve Mild diffuse mitral valve thickening. Moderate (2+) eccentric mitral valve insufficiency. Tricuspid Valve Right ventricular systolic pressure estimated to be 58 mmHg. Moderate (2+) tricuspid valve insufficiency. Aortic Valve Trisinus/trileaflet aortic valve. Moderate focal aortic valve calcification. Aortic sclerosis, no stenosis. Pulmonic Valve The pulmonic valve is not well visualized. Trivial pulmonic valve insufficiency. Great Vessels Moderately calcified aortic root. Pericardium/Pleural No pericardial effusion. MMode/2D Measurements & Calculations LVIDd: 5.4 cm IVSd: 1.2 cm LVOT diam: 2.0 cm LVIDs: 4.5 cm LVPWd: 0.97 cm LVOT area: 3.3 cm2 RVDd: 3.0 cm FS: 16.3 % Ao root diam: 3.0 cm LAV(MOD-bp): 72.7 ml LVAd ap4: 35.4 cm2 LA dimension: 4.6 cm LAV(MOD-bp) Indexed: 36.9 ml/m2 LVLd ap4: 8.6 cm LAV(MOD-sp2): 70.6 ml EDV(MOD-sp4): 119.5 ml LAV(MOD-sp4): 69.9 ml EDV(sp4-el): 124.0 ml LVAs ap4: 27.9 cm2 LVLs ap4: 7.8 cm ESV(MOD-sp4): 81.7 ml ESV(sp4-el): 84.5 ml EF(MOD-sp4): 31.6 % EF(sp4-el): 31.9 % LVAd ap2: 34.6 cm2 SV(MOD-sp4): 37.8 ml SV(MOD-sp2): 37.6 ml LVLd ap2: 8.5 cm SI(MOD-sp4): 19.2 ml/m2 SI(MOD-sp2): 19.1 ml/m2 EDV(MOD-sp2): 118.9 ml EDV(sp2-el): 119.8 ml LVAs ap2: 27.4 cm2 LVLs ap2: 7.8 cm ESV(MOD-sp2): 81.2 ml ESV(sp2-el): 81.3 ml EF(MOD-sp2): 31.6 % SV(sp4-el): 39.5 ml LA dimension(2D): 3.8 cm LA A4 area: 21.1 cm2 RA A4 area: 16.6 cm2 TAPSE: 1.6 cm Time Measurements MV dec time: 0.16 sec Doppler Measurements & Calculations MV E max enmanuel: 109.8 cm/sec Lat Peak E' Enmanuel: 6.8 cm/sec Med Peak E' Enmanuel: 4.5 cm/sec MV A max enmanuel: 37.4 cm/sec E/E' lat: 16.2 E/E' med: 24.7 MV E/A: 2.9 MV V2 max: 133.6 cm/sec MV P1/2t max enmanuel: 128.3 cm/sec Ao V2 max: 123.3 cm/sec MV max P.1 mmHg MV P1/2t: 54.5 msec Ao max P.1 mmHg MV V2 mean: 55.3 cm/sec Ao V2 mean: 83.6 cm/sec MV mean P.6 mmHg MV dec slope: 689.2 cm/sec2 Ao mean P.3 mmHg MV V2 VTI: 25.5 cm MVA(P1/2t): 4.0 cm2 Ao V2 VTI: 26.7 cm AV (velocity ratio): 0.43 MVA(VTI): 1.5 cm2 VANESA(I,D): 1.4 cm2 VANESA(V,D): 1.4 cm2 LV V1 max: 52.7 cm/sec SV(LVOT): 37.2 ml PA V2 max: 68.3 cm/sec LV V1 max P.1 mmHg PA V2 mean: 47.6 cm/sec LV V1 mean P.53 mmHg LV V1 mean: 33.2 cm/sec LV V1 VTI: 11.4 cm PI end-d enmanuel: 108.1 cm/sec TR max enmanuel: 363.9 cm/sec TR max P.0 mmHg ECHO/Echo Complete Interpretation Summary Mild concentric left ventricular hypertrophy. Severe generalized LV hypokinesis. LVEF estimated at 35%. Stage III diastolic dysfunction with elevated left atrial filling pressures. There is moderate biatrial dilatation. Moderate (2+) tricuspid valve insufficiency. Right ventricular systolic pressureestimated to be 58 mmHg. Moderate (2+) eccentric mitral valve insufficiency. Aortic sclerosis, no stenosis. Moderately calcified aortic root. ___ Ordering Physician: Karine Brasher Referring Physician: Michael Ko Chi Performed By: Dora Akins RDCS, RVT 11/28/24 1121 Date _ Osbaldo Vernon MD CC: Dr. Michael Ko MD; MARYJANE Sarkar ~ Date Dictated: 11/28/24 1013 Date Transcribed: 11/28/24 1121 [employer] Operator: Signed [facility] Work Phone: Absolute lymphocyte countOrd ered By: Juanzaheer Oliver on 11-27-2024 Lymphocytes Auto (Unsp spec) [#/Vol] 2.16 10*3/uL 0.83-4.51 [facility] [facility] Absolute neutrophil countOrd ered By: Juan Oliver on 11-27-2024 Neutrophils (Bld) [#/Vol] 7.6 10*3/uL 2.0-7.7 [facility] Automated lymphocyte count a s percentage of total leukocytesOrdered By: Juan Oliver on 11-27-2024 Lymphocytes/100 WBC Auto (Unsp spec) 20.2 % 19-41 [facility] Basophil percentageOrdered B y: Juan Oliver on 11-27-2024 Basophils/100 WBC (Bld) 0.4 % 0-1 [facility] CBC W/Diff, Automatedon 11-15 Absolute Lymph 2.16 X10 3/uL Normal 0.83-4.51 [facility] Comment on above: Performed By: #### L 501.6710, L101.9900, L100.0100 ####[facility] [address] [place], [address] Absolute Neut 7.6 X10 3/uL Normal 2.0-7.7 [facility] Comment on above: Performed By: #### L 501.6710, L101.9900, L100.0100 ####[facility] [address] [place], [address] Basophils/100 WBC (Bld) 0.4 % Normal 0-1 [facility] Comment on above: Performed By: #### L 501.6710, L101.9900, L100.0100 ####[facility] [address] [place], [address] Eosinophils/100 WBC (Bld) 0.7 % Normal 0-5 [facility] Comment on above: Performed By: #### L 501.6710, L101.9900, L100.0100 ####[facility] [address] [place], [address] Erythrocyte distribution width (RBC) [Ratio] 14.7 % High 11.6-14.6 [facility] Comment on above: Performed By: #### L 501.6710, L101.9900, L100.0100 ####[facility] [address] [place], [address] Hematocrit (Bld) [Volume fraction] 38.8 % Low 40-54 [facility] Comment on above: Performed By: #### L 501.6710, L101.9900, L100.0100 ####[facility] [address] [place], [address] Hemoglobin (Bld) [Mass/Vol] 12.7 g/dL Low 13.0-16.5 [facility] Comment on above: Performed By: #### L 501.6710, L101.9900, L100.0100 ####[facility] [address] [place], [address] IG% 0.500 Normal 0.0-0.9 [facility] Comment on above: Result Comment: IG% - Immature Granulocytes (promyelocytes, myelocytes andmetamyelocytes) > 1% indicates that a LEFT SHIFT is Present. Performed By: #### L 501.6710, L101.9900, L100.0100 ####[facility] [address] [place], [address] Lymphocytes/100 WBC (Bld) 20.2 % Normal 19-41 [facility] Comment on above: Performed By: #### L 501.6710, L101.9900, L100.0100 ####[facility] [address] [place], [address] MCH (RBC) [Entitic mass] 29.1 pg Normal 27.0-32.0 [facility] Comment on above: Performed By: #### L 501.6710, L101.9900, L100.0100 ####[facility] [address] [place], [address] MCHC (RBC) [Mass/Vol] 32.7 g/dL Normal 32-36 [facility] Comment on above: Performed By: #### L 501.6710, L101.9900, L100.0100 ####[facility] [address] [place], [address] MCV (RBC) [Entitic vol] 89.0 fL Normal 80-94 [facility] Comment on above: Performed By: #### L 501.6710, L101.9900, L100.0100 ####[facility] [address] [place], [address] Monocytes/100 WBC (Bld) 7.6 % Normal 0-10 [facility] Comment on above: Performed By: #### L 501.6710, L101.9900, L100.0100 ####[facility] [address] [place], [address] Neutrophils/100 WBC (Bld) 70.6 % High 47-70 [facility] Comment on above: Performed By: #### L 501.6710, L101.9900, L100.0100 ####[facility] [address] [place], [address] Nucleated RBC (Bld) [#/Vol] 0 10*3/uL Normal 0-5 [facility] Comment on above: Performed By: #### L 501.6710, L101.9900, L100.0100 ####[facility] [address] [place], [address] Platelet mean volume (Bld) [Entitic vol] 10.5 fL Normal 6.2-12.0 [facility] Comment on above: Performed By: #### L 501.6710, L101.9900, L100.0100 ####[facility] [address] [place], [address] Platelets (Bld) [#/Vol] 242 10*3/uL Normal 150-450 [facility] Comment on above: Performed By: #### L 501.6710, L101.9900, L100.0100 ####[facility] [address] [place], [address] RBC (Bld) [#/Vol] 4.36 10*6/uL Low 4.6-6.2 [facility] Comment on above: Performed By: #### L 501.6710, L101.9900, L100.0100 ####[facility] [address] [place], [address] RDW SD 48.2 fl High 35.1-43.9 [facility] Comment on above: Performed By: #### L 501.6710, L101.9900, L100.0100 ####[facility] [address] [place], [address] WBC (Bld) [#/Vol] 10.7 10*3/uL Normal 4.4-11.0 [facility] Comment on above: Performed By: #### L 501.6710, L101.9900, L100.0100 ####[facility] [address] [place], [address] CRPon 11-27-2024 C-REACTIVE PROT < 3.00 Normal 0.0-3.0 [facility] Comment on above: Performed By: #### L 501.6710, L101.9900, L100.0100 ####[facility] [address] [place], [place], [address] Eosinophil percentageOrdered By: Juan Oliver on 11-27-2024 Eosinophils/100 WBC (Bld) 0.7 % 0-5 [facility] Erythrocyte Sed Rateon 11-27 SED RATE 34 mm/hr High 0-20 [facility] Comment on above: Performed By: #### L 501.6710, L101.9900, L100.0100 ####[facility] [address] [place], [address] Erythrocyte distribution wid th ratioOrdered By: Juan Oliver on 11-27-2024 Erythrocyte distribution width (RBC) [Ratio] 14.7 % High 11.6-14.6 [facility] Erythrocyte distribution wid th standard deviationOrdered By: Juan Oliver on 11-27-2024 Erythrocyte distribution width (RBC) [Ratio] 48.2 fl High 35.1-43.9 [facility] Erythrocyte sedimentation ra teOrdered By: Juan Oliver on 11-27-2024 ESR (Bld) [Velocity] 34 mm/h High 0-20 [facility] Hematocrit Auto (Bld) [Volum e fraction]Ordered By: Juan Oliver on 11-27-2024 Hematocrit (Bld) [Volume fraction] 38.8 % Low 40-54 [facility] Hemoglobin measurementOrdere d By: Juan Oliver on 11-27-2024 Hemoglobin (Bld) [Mass/Vol] 12.7 g/dL Low 13.0-16.5 [facility] Immature granulocytes/100 WB C Auto (Bld)Ordered By: Juan Oliver on 11-27-2024 Immature granulocytes/100 WBC (Bld) 0.500 % 0.0-0.9 [facility] Comment on above: IG% - Immature Granu locytes (promyelocytes, myelocytes and metamyelocytes) > 1% indicates that a LEFT SHIFT is Present. MCV (mean corpuscular volume ) determinationOrdered By: Juan Oliver on 11-27-2024 MCV (RBC) [Entitic vol] 89.0 fL 80-94 [facility] Mean corpuscular hemoglobin (MCH) determinationOrdered By: Juan Oliver on 11-27-2024 MCH (RBC) [Entitic mass] 29.1 pg 27.0-32.0 [facility] Mean corpuscular hemoglobin concentration (MCHC) determinationOrdered By: Juan Oliver on 11-27-2024 MCHC (RBC) [Mass/Vol] 32.7 g/dL 32-36 [facility] Mean platelet volume determi nationOrdered By: Juan Oliver on 11-27-2024 Platelet mean volume (Bld) [Entitic vol] 10.5 fL 6.2-12.0 [facility] Monocyte percentageOrdered B y: Juan Oliver on 11-27-2024 Monocytes/100 WBC (Bld) 7.6 % 0-10 [facility] Neutrophil percentageOrdered By: Juan Oliver on 11-27-2024 Neutrophils/100 WBC (Bld) 70.6 % High 47-70 [facility] Nucleated red blood cell per centageOrdered By: Juan Oliver on 11-27-2024 Nucleated RBC/100 WBC (Bld) [Ratio] 0 % 0-5 [facility] Platelet countOrdered By: Gaby Oliver on 11-27-2024 Platelets (Bld) [#/Vol] 242 10*3/uL 150-450 [facility] RBC Auto (Bld) [#/Vol]Ordere d By: Juan Oliver on 11-27-2024 RBC (Bld) [#/Vol] 4.36 10*6/uL Low 4.6-6.2 [facility] Serum or plasma C reactive p rotein measurement (mass/volume)Ordered By: Juan Oliver on 11-27-2024 CRP [Mass/Vol] mg/L 0.0-3.0 [facility] White blood cell (WBC) count Ordered By: Juan Oliver on 11-27-2024 WBC (Bld) [#/Vol] 10.7 10*3/uL 4.4-11.0 [facility] L/S Spine Min 4 Viewson 05-0 L/S Spine Min 4 Views Normal [facility] MR/BMS.BVSon 11-14-2024 MR/BMS.BVS Normal [facility] CNOVon 11-09-2024 CNOV Office Visit ([facility] ) ----- SHELTON FOX ([id number]) 1945 M Date Time Provider Department 11/09/24 11:00 AM DANNY JUÁREZ During your visit today, we recorded the following information about you: Pulse Blood pressure Weight 92/minute 122/76 78 kg Danny Juárez APRN.GANG HEMSTITCHING MACHINE OPERATOR 11/09/2024 11:01 AM Signed Chief Complaint Patient presents with: Gout HPI Shelton Fox is a 79 year old male who presents here today for Above Complaints.. Gout: - Currently taking allopurinol daily for gout prevention. - Experiences gout flares even when uric acid levels are low. - Typically uses prednisone for flare management. - Denies use of colchicine due to adverse effects. - Current flare involves redness and swelling over the medial metacarpal of the right foot, causing difficulty walking and ankle pain. Past medical history, appointments, medications, allergies reviewed. Previous Medical History PAST MEDICAL HISTORY Diagnosis Date Allergic rhinitis, cause unspecified Arthritis Atherosclerotic heart disease of [place] coronary artery without angina pectoris Atrial fibrillation (HCC) Avascular necrosis (HCC) Benign neoplasm of colon Bilateral extracranial carotid artery stenosis CAD (coronary artery disease) Cardiomyopathy (HCC) Chronic back pain Diverticulosis of colon (without [...] ACETBLR/PROX FEM PROSTC AGRFT/ALGRFT 04/2012 Dr. Wood> [facility] ARTHRP KNE CONDYLEANDPLATU MEDIALANDLAT COMPARTMENTS Right COLONOSCOPY FLX DX W/COLLJ SPEC WHEN PFRMD 05/[address] Mejia COLONOSCOPY SCREENING 05/20/2023 COLONOSCOPY W/BIOPSY SINGLE/MULTIPLE 08/24/2006 EGD 12/01/2020 ESOPHAGOGASTRODUODENOSCOP Y TRANSORAL DIAGNOSTIC 05/2023 EYE SURGERY HX JOINT REPLACEMENT HX LAMINECTOMY,LUMBAR 06/20/2024 Dr. Pool with [facility] LEFT HEART CATH,PERCUTANEOUS 10/06/2022 OPEN REPAIR OF ROTATOR CUFF ACUTE 10/03/2008 Rotator cuff repair-right PAST SURGICAL HISTORY OF right knee scope PAST SURGICAL HISTORY OF cataract both eyes PAST SURGICAL HISTORY OF N/A 12/20/2022 EPS with Ablation, [facility] PAST SURGICAL HISTORY OF Right 12/26/2023 Endarterctomy carotid TONSILLECTOMY HX TONSILLECTOMY PRIMARY/SECONDARY Tonsillectomy and adnoids Family History FAMILY HISTORY Problem Relation Age of Onset Cancer Mother KIDNEY Coronary Artery Disease Mother Lipids Mother Stroke Mother Heart disease Mother Cancer Father LUNG other (fibromyalgia) Sister Heart Sister Prostate Cancer Brother Patient Allergies ALLERGIES Allergen Reactions Plaquenil [Hydroxyc* Itching Spironolactone Other: See Comments Dizziness and severe headaches Indocin [Indomethac* Diarrhea Mobic [Meloxicam] Diarrhea Current Medications Current Outpatient Medications on File Prior to Visit Medication Sig colchicine 0.6 mg tablet Take 1.2 mg PO X1, then 0.6 mg tablet 1 hour later X1. Max dose 1.8 mg allopurinol (ZYLOPRIM) 100 mg tablet Take 1 tablet by mouth two times a day. pantoprazole DR (PROTONIX) 20 mg tablet Take 1 tablet by mouth daily before breakfast. Take on empty stomach, 1/2 hr before meal. lisinopril (ZESTRIL) 5 mg tablet Take 5 mg by mouth two times a day. [facility] acetaminophen (TYLENOL) 325 mg tablet Take by mouth. simvastatin (ZOCOR) 20 mg tablet Take 1 tablet by mouth once daily. polyethylene glycol 3350 17 gram packet Take 17 g by mouth once daily. Dissolve dose in 4 - 8 ounces of liquid and take as directed. aspirin 81 mg chewable tablet Take 81 mg by mouth once daily. Patient reports taking one 81mg chewable tablet by mouth once daily. Lactobacillus acidophilus (ACIDOPHILUS ORAL) Take 1 capsule by mouth once daily. vitamin B complex (SUPER B COMPLEX ORAL) Take 1 tablet by mouth once daily. Magnesium Oxide 500 mg tab Take 1 tablet by mouth once daily. furosemide (LASIX) 40 mg tablet Take 40 mg by mouth as needed. carvedilol (COREG) 6.25 mg tablet Take 1 tablet by mouth twice daily. multi (more content not included)... Normal [facility] Lumbar Spine 2 or 3 Viewson 09-14-2024 Lumbar Spine 2 or 3 Views Normal [facility] Orthopedic Visit Reporton Orthopedic Visit Report Normal [facility] CNOVon 09-03-2024 CNOV Office Visit ([facility] ) ----- SHELTON FOX ([id number]) 1945 M Date Time Provider Department 09/03/24 10:00 AM RUTH PEREZ During your visit today, we recorded the following information about you: Temperature Pulse Respiration Blood pressure 98.2 degrees 76/minute 16/minute 106/70 Weight 77 kg Ruth Perez APRN.CNP 09/03/2024 10:00 AM Addendum Strep Negative Get chest xray completed today Covid, flu, RSV pending Continue supportive care at home, stay well hydrated May use Codeine cough syrup as needed, may cause sleepiness Follow up pending test results or sooner as needed Ruth Perez APRN.CNP 09/03/2024 10:15 AM Signed This is a 79 year old male who presents today with: Patient presents with: Acute Visit: flu/cough/fever HISTORY OF PRESENT ILLNESS: Shelton Fox is a 79 year old male. Patient presents with: Acute Visit: flu/cough/fever Here in the office for flu symptoms. Symptoms started last Tuesday. Ongoing sore throat, low-grade fever, and cough. Cough is dry. No wheezing or SOB. Taking Mucinex without relief. PAST MEDICAL HISTORY: PAST MEDICAL HISTORY Diagnosis Date Allergic rhinitis, cause unspecified Arthritis Atherosclerotic heart disease of [place] coronary artery without angina pectoris Atrial fibrillation (HCC) Avascular necrosis (HCC) Benign neoplasm of colon Bilateral extracranial carotid artery stenosis CAD (coronary artery disease) Cardiomyopathy (HCC) Chronic back pain Diverticulosis of colon (without [...] ACETBLR/PROX FEM PROSTC AGRFT/ALGRFT 04/2012 Dr. Wood> [facility] ARTHRP KNE CONDYLEANDPLATU MEDIALANDLAT COMPARTMENTS Right COLONOSCOPY FLX DX W/COLLJ SPEC WHEN PFRMD 05/[address] Mejia COLONOSCOPY SCREENING 05/20/2023 COLONOSCOPY W/BIOPSY SINGLE/MULTIPLE 08/24/2006 EGD 12/01/2020 ESOPHAGOGASTRODUODENOSCOP Y TRANSORAL DIAGNOSTIC 05/2023 EYE SURGERY HX JOINT REPLACEMENT HX LAMINECTOMY,LUMBAR 06/20/2024 Dr. Pool with [facility] LEFT HEART CATH,PERCUTANEOUS 10/06/2022 OPEN REPAIR OF ROTATOR CUFF ACUTE 10/03/2008 Rotator cuff repair-right PAST SURGICAL HISTORY OF right knee scope PAST SURGICAL HISTORY OF cataract both eyes PAST SURGICAL HISTORY OF N/A 12/20/2022 EPS with Ablation, [facility] PAST SURGICAL HISTORY OF Right 12/26/2023 Endarterctomy carotid TONSILLECTOMY HX TONSILLECTOMY PRIMARY/SECONDARY Tonsillectomy and adnoids ALLERGIES Plaquenil [Hydroxychloroquine], Spironolactone, Indocin [Indomethacin Sodium], and Mobic [Meloxicam] MEDICATIONS Current Outpatient Medications Medication Sig colchicine 0.6 mg tablet Take 1.2 mg PO X1, then 0.6 mg tablet 1 hour later X1. Max dose 1.8 mg allopurinol (ZYLOPRIM) 100 mg tablet Take 1 tablet by mouth two times a day. oxyCODONE IR (ROXICODONE) 5 mg immediate release tablet Take 5 mg by mouth once daily. Pain Management Dr. Burger (Patient not taking: Reported on 08/29/2024) pantoprazole DR (PROTONIX) 20 mg tablet Take 1 tablet by mouth daily before breakfast. Take on empty stomach, 1/2 hr before meal. lisinopril (ZESTRIL) 5 mg tablet Take 5 mg by mouth two times a day. [facility] acetaminophen (TYLENOL) 325 mg tablet Take by mouth. simvastatin (ZOCOR) 20 mg tablet Take 1 tablet by mouth once daily. polyethylene glycol 3350 17 gram packet Take 17 g by mouth once daily. Dissolve dose in 4 - 8 ounces of liquid and take as directed. aspirin 81 mg chewable tablet Take 81 mg by mouth once daily. Patient reports taking one 81mg chewable tablet by mouth once daily. Lactobacillus acidophilus (ACIDOPHILUS ORAL) Take 1 capsule by mouth once daily. vitamin B complex (SUPER B COMPLEX ORAL) Take 1 tablet by mouth once daily. Magnesium Oxide 500 mg tab Take 1 tablet by mouth once daily. (Patient not taking: Reported on 07/24/2024) furosemide (LASIX) 40 mg tablet Take 40 mg by mouth as needed. carvedilol (COREG) 6.25 mg tablet Take 1 tablet by mouth twice daily. multivit with minerals/lutein (MULTIVITAMIN 50 (more content not included)... Normal [facility] STREP A MOLECULAR (POC)on Procedural Control [facility] Strep A (POCT) Negative Negative [facility] XR CHEST 2V FRONTAL/LATon XR CHEST 2V FRONTAL/LAT * * *Final Report* * * DATE OF EXAM: Sep 03 2024 10:11AM WOX [id number] - XR CHEST 2V FRONTAL/LAT / PROCEDURE REASON: Acute cough * * * * Physician Interpretation * * * * EXAMINATION: CHEST RADIOGRAPH (2 VIEW FRONTAL and LATERAL) CLINICAL HISTORY: Acute cough MQ: XC2_6 EXAM DATE/TIME: 09/03/2024 10:11 AM COMPARISON: 04/15/2022 RESULT: Lines, tubes, and devices: None. Lungs and pleura: No consolidation. No lung mass. No pleural effusion. No pneumothorax. Cardiomediastinal silhouette: Normal cardiomediastinal silhouette. Bones and soft tissues: Unremarkable. IMPRESSION: No acute radiographic abnormality. Feather Drying Machine Operator: [facility] Transcribe Date/Time: Sep 03 2024 10:15A Dictated by : ABRAM MG MD This examination was interpreted and the report reviewed and electronically signed by: ABRAM MG MD on Sep 03 2024 10:17AM EST [id number] Normal [facility] XR Chest PA and Lateralon Radiology Study observation (narrative) [facility] IMPRESSION: No acute radiographic abnormality. Feather Drying Machine Operator: [employer] Transcribe Date/Time: Sep 03 2024 10:15A Dictated by : ABRAM MG MD This examination was interpreted and the report reviewed and electronically signed by: ABRAM MG MD on Sep 03 2024 10:17AM EST DIVISION OF RADIOLOGY * * *Final Report* * * DATE OF EXAM: Sep 03 2024 10:11AM WOX [id number] - XR CHEST 2V FRONTAL/LAT / PROCEDURE REASON: Acute cough * * * * Physician Interpretation * * * * EXAMINATION: CHEST RADIOGRAPH (2 VIEW FRONTAL & LATERAL) CLINICAL HISTORY: Acute cough MQ: XC2_6 EXAM DATE/TIME: 09/03/2024 10:11 AM COMPARISON: 04/15/2022 RESULT: Lines, tubes, and devices: None. Lungs and pleura: No consolidation. No lung mass. No pleural effusion. No pneumothorax. Cardiomediastinal silhouette: Normal cardiomediastinal silhouette. Bones and soft tissues: Unremarkable. DIVISION OF RADIOLOGY Provider, [facility] - 09/03/2024 * * *Final Report* * * DATE OF EXAM: Sep 03 2024 10:11AM WOX [id number] - XR CHEST 2V FRONTAL/LAT / PROCEDURE REASON: Acute cough * * * * Physician Interpretation * * * * EXAMINATION: CHEST RADIOGRAPH (2 VIEW FRONTAL & LATERAL) CLINICAL HISTORY: Acute cough MQ: XC2_6 EXAM DATE/TIME: 09/03/2024 10:11 AM COMPARISON: 04/15/2022 RESULT: Lines, tubes, and devices: None. Lungs and pleura: No consolidation. No lung mass. No pleural effusion. No pneumothorax. Cardiomediastinal silhouette: Normal cardiomediastinal silhouette. Bones and soft tissues: Unremarkable. IMPRESSION IMPRESSION: No acute radiographic abnormality. Feather Drying Machine Operator: [facility] Transcribe Date/Time: Sep 03 2024 10:15A Dictated by : ABRAM MG MD This examination was interpreted and the report reviewed and electronically signed by: ABRAM MG MD on Sep 03 2024 10:17AM EST [facility] XR Chest PA and LateralOrder ed By: [facility] Provider on 09-03-2024 [facility] CNOVon 08-29-2024 CNOV Office Visit ([facility] ) ----- SHELTON FOX Page ([id number]) 1945 M Date Time Provider Department 08/29/24 10:00 AM [facility] During your visit today, we recorded the following information about you: Temperature Pulse Respiration Blood pressure 97.1 degrees 62/minute 16/minute 140/90 Weight 79.8 kg Ruth Perez APRN.CNP 08/29/2024 12:58 PM Signed This is a 79 year old male who presents today with: Patient presents with: Follow Up: follow up for gout. Possible cold HISTORY OF PRESENT ILLNESS: Shelton Abel Rahul is a 79 year old male. Patient presents with: Follow Up: follow up for gout. Possible cold Here in the office for gout flare. Was seen in [facility] 08/24/23 treated with prednisone 40 mg daily for 5 days. Reports he is done with the prednisone, he continues with pain on his left knee cap. He reports he limps with walking due to the pain, due to this his back is now hurting. Had back surgery about 3 months ago. History of gout, taking Allopurinol 100 mg BID, last uric acid in 2022, past due for labs. PAST MEDICAL HISTORY: PAST MEDICAL HISTORY Diagnosis Date Allergic rhinitis, cause unspecified Arthritis Atherosclerotic heart disease of [place] coronary artery without angina pectoris Atrial fibrillation (HCC) Avascular necrosis (HCC) Benign neoplasm of colon Bilateral extracranial carotid artery stenosis CAD (coronary artery disease) Cardiomyopathy (HCC) Chronic back pain Diverticulosis of colon (without [...] ACETBLR/PROX FEM PROSTC AGRFT/ALGRFT 04/2012 Dr. Wood> [facility]. ARTHRP KNE CONDYLEANDPLATU MEDIALANDLAT COMPARTMENTS Right COLONOSCOPY FLX DX W/COLLJ SPEC WHEN PFRMD 05/[address] Mejia COLONOSCOPY SCREENING 05/20/2023 COLONOSCOPY W/BIOPSY SINGLE/MULTIPLE 08/24/2006 EGD 12/01/2020 ESOPHAGOGASTRODUODENOSCOP Y TRANSORAL DIAGNOSTIC 05/2023 EYE SURGERY HX JOINT REPLACEMENT HX LAMINECTOMY,LUMBAR 06/20/2024 Dr. Pool with [facility] LEFT HEART CATH,PERCUTANEOUS 10/06/2022 OPEN REPAIR OF ROTATOR CUFF ACUTE 10/03/2008 Rotator cuff repair-right PAST SURGICAL HISTORY OF right knee scope PAST SURGICAL HISTORY OF cataract both eyes PAST SURGICAL HISTORY OF N/A 12/20/2022 EPS with Ablation, [facility] PAST SURGICAL HISTORY OF Right 12/26/2023 Endarterctomy carotid TONSILLECTOMY HX TONSILLECTOMY PRIMARY/SECONDARY Tonsillectomy and adnoids ALLERGIES Plaquenil [Hydroxychloroquine], Spironolactone, Indocin [Indomethacin Sodium], and Mobic [Meloxicam] MEDICATIONS Current Outpatient Medications Medication Sig predniSONE (DELTASONE) 20 mg tablet Take 2 tablets by mouth once daily for 5 days. allopurinol (ZYLOPRIM) 100 mg tablet Take 1 tablet by mouth two times a day. oxyCODONE IR (ROXICODONE) 5 mg immediate release tablet Take 5 mg by mouth once daily. Pain Management Dr. Burger pantoprazole DR (PROTONIX) 20 mg tablet Take 1 tablet by mouth daily before breakfast. Take on empty stomach, 1/2 hr before meal. lisinopril (ZESTRIL) 5 mg tablet Take 5 mg by mouth two times a day. [facility] acetaminophen (TYLENOL) 325 mg tablet Take by mouth. simvastatin (ZOCOR) 20 mg tablet Take 1 tablet by mouth once daily. polyethylene glycol 3350 17 gram packet Take 17 g by mouth once daily. Dissolve dose in 4 - 8 ounces of liquid and take as directed. aspirin 81 mg chewable tablet Take 81 mg by mouth once daily. Patient reports taking one 81mg chewable tablet by mouth once daily. Lactobacillus acidophilus (ACIDOPHILUS ORAL) Take 1 capsule by mouth once daily. vitamin B complex (SUPER B COMPLEX ORAL) Take 1 tablet by mouth once daily. Magnesium Oxide 500 mg tab Take 1 tablet by mouth once daily. (Patient not taking: Reported on 07/24/2024) furosemide (LASIX) 40 mg tablet Take 40 mg by mouth as needed. carvedilol (COREG) 6.25 mg tablet Take 1 tablet by mouth twice daily. multivit with minerals/lutein (MULTIVITAMIN 50 PLUS ORAL) Take 1 tablet by mouth once daily. apixaban (ELIQUIS) 5 mg tab(s (more content not included)... Normal [facility] Comprehensive metabolic 2000 panelon 08-29-2024 Albumin [Mass/Vol] 4.4 g/dL Normal 3.9-4.9 [facility] Comment on above: Order Comment: Speci men Type: BLOOD SPECIMENOrdering Facility: [facility] Address: [address] [place] [address] [place] [address] Performed By: #### 2 4323-8, 308- ####[facility] [id number] [place] [address] [place] ALP [Catalytic activity/Vol] 83 U/L Normal 38-113 [facility] Comment on above: Order Comment: Speci men Type: BLOOD SPECIMENOrdering Facility: [facility] Address: [address] [place] [address] Performed By: #### 2 4323-8, 3083- ####[facility] [id number] [place] [address] [place] ALT [Catalytic activity/Vol] 24 U/L Normal 10-54 [facility] Comment on above: Order Comment: Speci men Type: BLOOD SPECIMENOrdering Facility: [facility] Address: [address] [place] [address] Performed By: #### 2 4323-8, 3083-07 ####[facility] [id number] [place] [address] [place] Anion gap [Moles/Vol] 12 mmol/L Normal 8-15 [facility] Comment on above: Order Comment: Speci men Type: BLOOD SPECIMENOrdering Facility: [facility] Address: [address] [place] [address] Performed By: #### 2 4323-8, 3083-07 ####[facility] [id number] [place] [address] [place] AST [Catalytic activity/Vol] 27 U/L Normal 14-40 [facility] Comment on above: Order Comment: Speci men Type: BLOOD SPECIMENOrdering Facility: [facility] Address: [address] [place] [address] Performed By: #### 2 4323-8, 3083- ####[facility] [id number] [place] [address] [place] Bilirubin [Mass/Vol] 0.6 mg/dL Normal 0.2-1.3 [facility] Comment on above: Order Comment: Speci men Type: BLOOD SPECIMENOrdering Facility: [facility] Address: [address] [place] [address] Performed By: #### 2 4323-8, 3083- ####[facility] [id number] [place] [address] [place] Calcium [Mass/Vol] 9.3 mg/dL Normal 8.5-10.2 [facility] Comment on above: Order Comment: Speci men Type: BLOOD SPECIMENOrdering Facility: [facility] Address: [address] [place] [address] Performed By: #### 2 4323-8, 3083- ####[facility] [id number] [place] [address] [place] Chloride [Moles/Vol] 105 mmol/L Normal 98-107 [facility] Comment on above: Order Comment: Speci men Type: BLOOD SPECIMENOrdering Facility: [facility] Address: [address] [place] [address] Performed By: #### 2 4323-8, 3083-07 ####[facility] [id number] [place] [address] [place] CO2 [Moles/Vol] 24 mmol/L Normal 22-30 [facility] Comment on above: Order Comment: Speci men Type: BLOOD SPECIMENOrdering Facility: [facility] Address: [address] [place] [address] Performed By: #### 2 4323-8, 3083- ####[facility] [id number] [place] [address] [place] Creatinine [Mass/Vol] 0.83 mg/dL Normal 0.73-1.22 [facility] Comment on above: Order Comment: Speci men Type: BLOOD SPECIMENOrdering Facility: [facility] Address: [address] [place] [address] Performed By: #### 2 4323-8, 3084-1 ####[facility] [id number] [place] [address] [place] Creatinine and Glomerular filtration rate.predicted panel (S/P/Bld) 89 mL/min/1.73m??? Normal >=60 [facility] Comment on above: Order Comment: Tiarra jackson Type: BLOOD SPECIMENOrdering Facility: [facility] Address: [address] [place] [address] Result Comment: More mated Glomerular Filtration Rate (eGFR) is calculated using the 2020 CKD-EPI creatinine equation. This equation utilizes serum creatinine, sex, and age as parameters. The creatinine assay has traceable calibration to isotope dilution-mass spectrometry. Refer to KDIGO guidelines for clinical interpretation. In patients with unstable renal function, e.g. those with acute kidney injury, the eGFR may not accurately reflect actual GFR. Performed By: #### 2 4323-8, 308-1 ####[facility] [id number] [place] [address] [place] Glucose [Mass/Vol] 132 mg/dL High 74-99 [facility] Comment on above: Order Comment: Tiarra jackson Type: BLOOD SPECIMENOrdering Facility: [facility] Address: [address] [place] [address] Result Comment: The [place] Diabetes Association (ADA) provides guidance for cutoff values for fasting glucose and random glucose. The ADA defines fasting as no caloric intake for at least 8 hours. Fasting plasma glucose results between 100 to 125 mg/dL indicate increased risk for diabetes (prediabetes). Fasting plasma glucose results greater than or equal to 126 mg/dL meet the criteria for diagnosis of diabetes. In the absence of unequivocal hyperglycemia, results should be confirmed by repeat testing. In a patient with classic symptoms of hyperglycemia or hyperglycemic crisis, random plasma glucose results greater than or equal to 200 mg/dL meet the criteria for diagnosis of diabetes. Reference: Standards of Medical Care in Diabetes 2016, [place] [employer] Association. Diabetes Care. 2016.39(Suppl 1). Performed By: #### 2 4323-8, 3083- ####[facility] [id number] [place] [address] [place] Potassium [Moles/Vol] 4.5 mmol/L Normal 3.7-5.1 [facility] Comment on above: Order Comment: Speci men Type: BLOOD SPECIMENOrdering Facility: [facility] Address: [address] [place] [address] Performed By: #### 2 4323-8, 3083-07 ####[facility] [id number] [place] [address] [place] Protein [Mass/Vol] 6.9 g/dL Normal 6.3-8.0 [facility] Comment on above: Order Comment: Speci men Type: BLOOD SPECIMENOrdering Facility: [facility] Address: [address] [place] [address] Performed By: #### 2 4323-8, 3083-07 ####[facility] [id number] [place] [address] [place] Sodium [Moles/Vol] 141 mmol/L Normal 136-144 [facility] Comment on above: Order Comment: Speci men Type: BLOOD SPECIMENOrdering Facility: [facility] Address: [address] [place] [address] Performed By: #### 2 4323-8, 3083-07 ####[facility] [id number] [place] [address] [place] Urea nitrogen [Mass/Vol] 15 mg/dL Normal 9-24 [facility] Comment on above: Order Comment: Speci men Type: BLOOD SPECIMENOrdering Facility: [facility] Address: [address] [place] [address] Performed By: #### 2 4323-8, 3083- ####[facility] [id number] [place] [address] [place] Urate SerPl-mCncon 5 Urate [Mass/Vol] 4.4 mg/dL Normal 4.0-8.1 Ann-Marie linares [facility] Comment on above: Order Comment: Speci men Type: BLOOD SPECIMENOrdering Facility: [facility] Address: [address] [place] [address] Performed By: #### 2 4323-8, 3084-1 ####[facility] [id number] [place] [address] [place] CNOVon 08-24-2024 CNOV Office Visit (UCWSTR ) ----- SHELTON FOX ([id number]) 1945 M Date Time Provider Department 08/24/24 3:30 PM SUMAYA ALCAZAR [facility] During your visit today, we recorded the following information about you: Temperature Pulse Respiration Blood pressure 97 degrees 84/minute 18/minute 148/80 Weight 78.7 kg Sumaya Alcazar APRN.GANG HEMSTITCHING MACHINE OPERATOR 08/24/2024 5:18 PM Signed Subjective HPI HPI Shelton Abel Rahul is a 78 year old male who presents today for CC of right knee pain/woke him up in the night. Has tried nothing for relief. Symptoms are worsened by rom. Risk factors hx of gout, concerned this is a flair. Denies recent injury or overuse .Patient presents with: Left Knee Pain: X this AM, possible gout, redness and warmth PAST MEDICAL HISTORY Diagnosis Date Allergic rhinitis, cause unspecified Arthritis Atherosclerotic heart disease of [place] coronary artery without angina pectoris Atrial fibrillation (HCC) Avascular necrosis (HCC) Benign neoplasm of colon Bilateral extracranial carotid artery stenosis CAD (coronary artery disease) Cardiomyopathy (HCC) Chronic back pain Diverticulosis of colon (without [...] ACETBLR/PROX FEM PROSTC AGRFT/ALGRFT 04/2012 Dr. Wood> [facility]. ARTHRP KNE CONDYLEANDPLATU MEDIALANDLAT COMPARTMENTS Right COLONOSCOPY FLX DX W/COLLJ SPEC WHEN PFRMD 05/[address] Mjeia COLONOSCOPY SCREENING 05/20/2023 COLONOSCOPY W/BIOPSY SINGLE/MULTIPLE 08/24/2006 EGD 12/01/2020 ESOPHAGOGASTRODUODENOSCOP Y TRANSORAL DIAGNOSTIC 05/2023 EYE SURGERY HX JOINT REPLACEMENT HX LAMINECTOMY,LUMBAR 06/20/2024 Dr. Pool with [facility] LEFT HEART CATH,PERCUTANEOUS 10/06/2022 OPEN REPAIR OF ROTATOR CUFF ACUTE 10/03/2008 Rotator cuff repair-right PAST SURGICAL HISTORY OF right knee scope PAST SURGICAL HISTORY OF cataract both eyes PAST SURGICAL HISTORY OF N/A 12/20/2022 EPS with Ablation, [facility] PAST SURGICAL HISTORY OF Right 12/26/2023 Endarterctomy carotid TONSILLECTOMY HX TONSILLECTOMY PRIMARY/SECONDARY Tonsillectomy and adnoids ALLERGIES Plaquenil [Hydroxychloroquine], Spironolactone, Indocin [Indomethacin Sodium], and Mobic [Meloxicam] MEDICATIONS allopurinol (ZYLOPRIM) 100 mg tablet Take 1 tablet by mouth two times a day. oxyCODONE IR (ROXICODONE) 5 mg immediate release tablet Take 5 mg by mouth once daily. Pain Management Dr. Burger pantoprazole DR (PROTONIX) 20 mg tablet Take 1 tablet by mouth daily before breakfast. Take on empty stomach, 1/2 hr before meal. lisinopril (ZESTRIL) 5 mg tablet Take 5 mg by mouth two times a day. [facility] acetaminophen (TYLENOL) 325 mg tablet Take by mouth. simvastatin (ZOCOR) 20 mg tablet Take 1 tablet by mouth once daily. polyethylene glycol 3350 17 gram packet Take 17 g by mouth once daily. Dissolve dose in 4 - 8 ounces of liquid and take as directed. aspirin 81 mg chewable tablet Take 81 mg by mouth once daily. Patient reports taking one 81mg chewable tablet by mouth once daily. Lactobacillus acidophilus (ACIDOPHILUS ORAL) Take 1 capsule by mouth once daily. vitamin B complex (SUPER B COMPLEX ORAL) Take 1 tablet by mouth once daily. Magnesium Oxide 500 mg tab Take 1 tablet by mouth once daily. (Patient not taking: Reported on 07/24/2024) furosemide (LASIX) 40 mg tablet Take 40 mg by mouth as needed. carvedilol (COREG) 6.25 mg tablet Take 1 tablet by mouth twice daily. multivit with minerals/lutein (MULTIVITAMIN 50 PLUS ORAL) Take 1 tablet by mouth once daily. apixaban (ELIQUIS) 5 mg tab(s) Take 5 mg by mouth twice daily. Melatonin 5 mg cap Take 5 mg by mouth at bedtime as needed. FAMILY HISTORY Problem Relation Age of Onset Cancer Mother KIDNEY Coronary Artery Disease Mother Lipids Mother Stroke Mother Heart disease Mother Cancer Father LUNG other (fibromyalgia) Sister Heart Sister Prostate Cancer Brother Social History Tobacco Use Smoking status: Former Current packs/day: 0.00 Average packs/day: 1 pack/day for 10.0 years (10.0 ttl pk-yrs) (more content not included)... Normal [facility] XR KNEE 4V AP/PA BOTH+LAT/ME R LTon 08-24-2024 XR KNEE 4V AP/PA BOTH+LAT/MICKIE LT * * *Final Report* * * DATE OF EXAM: Aug 24 2024 4:30PM WOX 5202 - XR KNEE 4V AP/PA BOTH+LAT/MICKIE LT / PROCEDURE REASON: Acute pain of right knee * * * * Physician Interpretation * * * * EXAMINATION: XR KNEE 4V AP/PA BOTH+LAT/MICKIE LT HISTORY: woke up at 3 am with terrible pain anterior left knee redness and warmth on patella hx of gout no inj . TECHNIQUE: XR KNEE 4V AP/PA BOTH+LAT/MICKIE LT Laterality: LEFT Number of different views (projections): 4 M: XB_1 COMPARISON: Knee radiographs 09/02/2023 RESULT: 4 images including weightbearing frontal as labeled with the knees [id number] and including patellar sunrise views with the knees qsdz-jy-hwzl. No identified osseous or other acute osseous abnormality or interval change either knee. No left knee joint effusion. No increased left prepatellar swelling and no identified prepatellar soft tissue calcifications. Preexistent findings as follows. Moderate well-defined left patellar dorsal proximal traction spur. Right knee arthroplasty. Chronic severe atherosclerosis IMPRESSION: No acute osseous findings Feather Drying Machine Operator: [facility] Transcribe Date/Time: Aug 24 2024 4:55P Dictated by : MAYRA ODOM MD This examination was interpreted and the report reviewed and electronically signed by: MAYRA ODOM MD on Aug 24 2024 5:09PM EST [id number] Normal [facility] XR Knee - left 4 Viewson IMPRESSION: No acute osseous findings Feather Drying Machine Operator: [facility] Transcribe Date/Time: Aug 24 2024 4:55P Dictated by : MAYRA ODOM MD This examination was interpreted and the report reviewed and electronically signed by: MAYRA ODOM MD on Aug 24 2024 5:09PM EST DIVISION OF RADIOLOGY * * *Final Report* * * DATE OF EXAM: Aug 24 2024 4:30PM WOX 5202 - XR KNEE 4V AP/PA BOTH+LAT/MICKIE LT / PROCEDURE REASON: Acute pain of right knee * * * * Physician Interpretation * * * * EXAMINATION: XR KNEE 4V AP/PA BOTH+LAT/MICKIE LT HISTORY: woke up at 3 am with terrible pain anterior left knee redness and warmth on patella hx of gout no inj . TECHNIQUE: XR KNEE 4V AP/PA BOTH+LAT/MICKIE LT Laterality: LEFT Number of different views (projections): 4 M: XB_1 COMPARISON: Knee radiographs 09/02/2023 RESULT: 4 images including weightbearing frontal as labeled with the knees ljir-ji-snpy and including patellar sunrise views with the knees [id number]-ct-lcjd. No identified osseous or other acute osseous abnormality or interval change either knee. No left knee joint effusion. No increased left prepatellar swelling and no identified prepatellar soft tissue calcifications. Preexistent findings as follows. Moderate well-defined left patellar dorsal proximal traction spur. Right knee arthroplasty. Chronic severe atherosclerosis DIVISION OF RADIOLOGY Provider, Tiara Keenan - 08/24/2024 * * *Final Report* * * DATE OF EXAM: Aug 24 2024 4:30PM WOX 5202 - XR KNEE 4V AP/PA BOTH+LAT/MICKIE LT / PROCEDURE REASON: Acute pain of right knee * * * * Physician Interpretation * * * * EXAMINATION: XR KNEE 4V AP/PA BOTH+LAT/MICKIE LT HISTORY: woke up at 3 am with terrible pain anterior left knee redness and warmth on patella hx of gout no inj . TECHNIQUE: XR KNEE 4V AP/PA BOTH+LAT/MICKIE LT Laterality: LEFT Number of different views (projections): 4 M: XB_1 COMPARISON: Knee radiographs 09/02/2023 RESULT: 4 images including weightbearing frontal as labeled with the knees [id number]-pg-[id number] and including patellar sunrise views with the knees aclk-qf-tiap. No identified osseous or other acute osseous abnormality or interval change either knee. No left knee joint effusion. No increased left prepatellar swelling and no identified prepatellar soft tissue calcifications. Preexistent findings as follows. Moderate well-defined left patellar dorsal proximal traction spur. Right knee arthroplasty. Chronic severe atherosclerosis IMPRESSION IMPRESSION: No acute osseous findings Feather Drying Machine Operator: [facility] Transcribe Date/Time: Aug 24 2024 4:55P Dictated by : MAYRA ODOM MD This examination was interpreted and the report reviewed and electronically signed by: MAYRA ODOM MD on Aug 24 2024 5:09PM [facility] Radiology Study observation (narrative) [facility] XR Knee - left 4 ViewsOrdere d By: [facility] Provider on 08-24-2024 [facility] Cardiology Visit Reporton Cardiology Visit Report Normal [facility] CNOVon 07-24-2024 CNOV Office Visit (FAMPWS ) ----- SHELTON FOX ([id number]) 1945 M Date Time Provider Department 07/24/24 10:40 AM FEDERICO VIGIL During your visit today, we recorded the following information about you: Pulse Respiration Blood pressure Weight 74/minute 18/minute 110/68 77.7 kg Federico Vigil MD 07/24/2024 11:42 AM Signed Chief Complaint Patient presents with: 6 Month Exam HPI Shelton Fox is a 78 year old male who presents here today for 6 month follow up. No bowel, Gi, or urinary issues. Taking Protonix 20 mg daily for dysphagia. Anemia: Follows with Hem/Onc. Edema: terry legs; L>R foot. Uses Lasix 40 mg once daily as needed. A-fib: Follows with [facility] [employer] Dr. Timothy Walker s/p ablation. Taking Eliquis 5 mg 1 pill twice daily. HTN: No chest pains, dizziness, or SOB. Checks BP at home. Taking Lisinopril 5 mg daily and Coreg 6.25 mg BID. Follows with [facility]. Lipid/CAD/PAD: Follows with Vascular Surgeon Dr. Phi Caba. Taking Zocor 20 mg daily and ASA 81 mg daily. Tolerating the Zocor well. Tries to watch diet, feels he doesn't eat too badly. Lifts weights, golfs, and walks for exercise. Gout: Controlled, no flares. Taking Allopurinol [address] mg BID[address] 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 Takes Prednisone 2.5 mg daily. Pain: had back surgery 06/20/24 which was done by Dr. Pool with [facility]. He is following with Dr. Burger, Pain Management with [facility]. Someone he got a compression fracture to the back that occurred after surgery, unsure what caused that, no falls. He was doing great after the surgery but then the fracture occurred and has been in a lot of pain. Pain management is going to do kyphoplasty. He is using Oxycodone 5 mg once daily and Tylenol prn. Past medical history, appointments, medications, allergies reviewed. Previous Medical History PAST MEDICAL HISTORY Diagnosis Date Allergic rhinitis, cause unspecified Arthritis Atherosclerotic heart disease of [place] coronary artery without angina pectoris Atrial fibrillation (HCC) Avascular necrosis (HCC) Benign neoplasm of colon Bilateral extracranial carotid artery stenosis CAD (coronary artery disease) Cardiomyopathy (HCC) Chronic back pain Diverticulosis of colon (without [...] ACETBLR/PROX FEM PROSTC AGRFT/ALGRFT 04/2012 Dr. Wood> [facility] ARTHRP KNE CONDYLEANDPLATU MEDIALANDLAT COMPARTMENTS Right COLONOSCOPY FLX DX W/COLLJ SPEC WHEN PFRMD 05/[address] Mejia COLONOSCOPY SCREENING 05/20/2023 COLONOSCOPY W/BIOPSY SINGLE/MULTIPLE 08/24/2006 EGD 12/01/2020 ESOPHAGOGASTRODUODENOSCOP Y TRANSORAL DIAGNOSTIC 05/2023 EYE SURGERY HX JOINT REPLACEMENT HX LAMINECTOMY,LUMBAR 06/20/2024 Dr. Pool with [facility] LEFT HEART CATH,PERCUTANEOUS 10/06/2022 OPEN REPAIR OF ROTATOR CUFF ACUTE 10/03/2008 Rotator cuff repair-right PAST SURGICAL HISTORY OF right knee scope PAST SURGICAL HISTORY OF cataract both eyes PAST SURGICAL HISTORY OF N/A 12/20/2022 EPS with Ablation, [facility] PAST SURGICAL HISTORY OF Right 12/26/2023 Endarterctomy carotid TONSILLECTOMY HX TONSILLECTOMY PRIMARY/SECONDARY Tonsillectomy and adnoids Family History FAMILY HISTORY Problem Relation Age of Onset Cancer Mother KIDNEY Coronary Artery Disease Mother Lipids Mother Stroke Mother Heart disease Mother Cancer Father LUNG other (fibromyalgia) Sister Heart Sister Prostate Cancer Brother Patient Allergies ALLERGIES Allergen Reactions Plaquenil [Hydroxyc* Itching Spironolactone Other: See Comments Dizziness and severe headaches Indocin [Indomethac* Diarrhea Mobic [Meloxicam] Diarrhea Current Medications Current Outpatient Medications on File Prior to Visit Medication Sig allopurinol (ZYLOPRIM) 100 mg tablet Take 1 tablet by mouth two times a day. pantoprazole DR (PROTONIX) 20 mg tablet Take 1 tablet by mouth daily before breakfast. Take on empty stomach, 1/2 hr be (more content not included)... Normal [facility] CBC W Auto Differential pane l (Bld)on 07-19-2024 Basophils (Bld) [#/Vol] 0.04 10*3/uL Normal <0.11 [facility] Comment on above: Order Comment: Speci men Type: BLOOD SPECIMENOrdering Facility: [facility] Address: [address] [place] [address] Performed By: #### 5 7021-8 ####[facility] [id number] [place] [address] [place] Basophils/100 WBC (Bld) 0.5 % Normal [facility] Comment on above: Order Comment: Speci men Type: BLOOD SPECIMENOrdering Facility: [facility] Address: [address] [place] [address] Performed By: #### 5 7021-8 ####[facility] [id number] [place] [address] [place] Differential cell count method Nom (Bld) Auto Normal [facility] Comment on above: Order Comment: Speci men Type: BLOOD SPECIMENOrdering Facility: [facility] Address: [address] [place] [address] Performed By: #### 5 7021-8 ####[facility] [id number] [place] [address] [place] Eosinophils (Bld) [#/Vol] 0.11 10*3/uL Normal <0.46 [facility] Comment on above: Order Comment: Speci men Type: BLOOD SPECIMENOrdering Facility: [facility] Address: [address] [place] [address] Performed By: #### 5 7021-8 ####[facility] IGNACIOWALMALIA [id number] [place] [address] [place] Eosinophils/100 WBC (Bld) 1.5 % Normal [facility] Comment on above: Order Comment: Speci men Type: BLOOD SPECIMENOrdering Facility: [facility] Address: [address] [place] [address] Performed By: #### 5 7021-8 ####[facility]ENTERALMALIA [id number] [place] [address] [place] Erythrocyte distribution width (RBC) [Ratio] 14.6 % Normal 11.5-15.0 [facility] Comment on above: Order Comment: Speci men Type: BLOOD SPECIMENOrdering Facility: [facility] Address: [address] [place] [address] Performed By: #### 5 7021-8 ####[facility] [id number] [place] [address] [place] Hematocrit (Bld) [Volume fraction] 33.3 % Low 39.0-51.0 [facility] Comment on above: Order Comment: Speci men Type: BLOOD SPECIMENOrdering Facility: [facility] Address: [address] [place] [address] Performed By: #### 5 7021-8 ####[facility] CENTERJENNIFER [id number] [place] [address] [place] Hemoglobin (Bld) [Mass/Vol] 11.0 g/dL Low 13.0-17.0 [facility] Comment on above: Order Comment: Speci men Type: BLOOD SPECIMENOrdering Facility: [facility] Address: [address] [place] [address] Performed By: #### 5 7021-8 ####[facility]ENTERNCLIA [id number] [place] [address] [place] Immature granulocytes (Bld) [#/Vol] 0.04 10*3/uL Normal <0.10 [facility] Comment on above: Order Comment: Speci men Type: BLOOD SPECIMENOrdering Facility: [facility] Address: [address] [place] [address] Performed By: #### 5 7021-8 ####[facility] [id number] [place] [address] [place] Immature granulocytes/100 WBC (Bld) 0.5 % Normal [facility] Comment on above: Order Comment: Speci men Type: BLOOD SPECIMENOrdering Facility: [facility] Address: [address] [place] [address] Performed By: #### 5 7021-8 ####[facility]ENTERNCSE[facility] [id number] [place] [address] [place] Lymphocytes (Bld) [#/Vol] 1.96 10*3/uL Normal 1.00-4.00 [facility] Comment on above: Order Comment: Speci men Type: BLOOD SPECIMENOrdering Facility: [facility] Address: [address] [place] [address] Performed By: #### 5 7021-8 ####[facility] [id number] [place] [address] [place] Lymphocytes/100 WBC (Bld) 26.8 % Normal [facility] Comment on above: Order Comment: Speci men Type: BLOOD SPECIMENOrdering Facility: [facility] Address: [address] [place] [address] Performed By: #### 5 7021-8 ####[facility]ENTERNCA [id number] [place] [address] [place] MCH (RBC) [Entitic mass] 30.5 pg Normal 26.0-34.0 [facility] Comment on above: Order Comment: Speci men Type: BLOOD SPECIMENOrdering Facility: [facility] Address: [address] [place] [address] Performed By: #### 5 7021-8 ####[facility] TRICIA [id number] [place] [address] [place] MCHC (RBC) [Mass/Vol] 33.0 g/dL Normal 30.5-36.0 [facility] Comment on above: Order Comment: Speci men Type: BLOOD SPECIMENOrdering Facility: [facility] Address: [address] [place] [address] Performed By: #### 5 7021-8 ####[facility] CENTERJENNIFER [id number] [place] [address] [place] MCV (RBC) [Entitic vol] 92.2 fL Normal 80.0-100.0 [facility] Comment on above: Order Comment: Speci men Type: BLOOD SPECIMENOrdering Facility: [facility] Address: [address] [place] [address] Performed By: #### 5 7021-8 ####[facility]ENTERJENNIFER [id number] [place] [address] [place] Monocytes (Bld) [#/Vol] 0.72 10*3/uL Normal <0.87 [facility] Comment on above: Order Comment: Speci men Type: BLOOD SPECIMENOrdering Facility: [facility] Address: [address] [place] [address] Performed By: #### 5 7021-8 ####[facility]ENTERJENNIFER [id number] [place] [address] [place] Monocytes/100 WBC (Bld) 9.9 % Normal [facility] Comment on above: Order Comment: Speci men Type: BLOOD SPECIMENOrdering Facility: [facility] Address: [address] [place] [address] Performed By: #### 5 7021-8 ####[facility] MILLTOWNCLIA [id number] [place] [address] [place] Neutrophils (Bld) [#/Vol] 4.43 10*3/uL Normal 1.45-7.50 [facility] Comment on above: Order Comment: Speci men Type: BLOOD SPECIMENOrdering Facility: [facility] Address: [address] [place] [address] Performed By: #### 5 7021-8 ####[facility]STITUTEWNCLIA [id number] [place] [address] [place] Neutrophils/100 WBC (Bld) 60.8 % Normal [facility] Comment on above: Order Comment: Speci men Type: BLOOD SPECIMENOrdering Facility: [facility] Address: [address] [place] [address] Performed By: #### 5 7021-8 ####[facility] HOSPITALLIA [id number] [place] [address] [place] Nucleated RBC (Bld) [#/Vol] 10*3/uL Normal <0.01 [facility] Comment on above: Order Comment: Speci men Type: BLOOD SPECIMENOrdering Facility: [facility] Address: [address] [place] [address] Performed By: #### 5 7021-8 ####[facility] HOSPITALLIA [id number] [place] [address] [place] Nucleated RBC/100 WBC (Bld) [Ratio] 0.0 /100 WBC Normal [facility] Comment on above: Order Comment: Speci men Type: BLOOD SPECIMENOrdering Facility: [facility] Address: [address] [place] [address] Performed By: #### 5 7021-8 ####[facility]ENTERNCLIA [id number] [place] [address] [place] Platelet mean volume (Bld) [Entitic vol] 8.4 fL Low 9.0-12.7 [facility] Comment on above: Order Comment: Speci men Type: BLOOD SPECIMENOrdering Facility: [facility] Address: [address] [place] [address] Performed By: #### 5 7021-8 ####[facility]ENTERNCLIA [id number] [place] [address] [place] Platelets (Bld) [#/Vol] 249 10*3/uL Normal 150-400 [facility] Comment on above: Order Comment: Speci men Type: BLOOD SPECIMENOrdering Facility: [facility] Address: [address] [place] [address] Performed By: #### 5 7021-8 ####[facility]ENTERNCSEVI[facility] [id number] [place] [address] [place] RBC (Bld) [#/Vol] 3.61 10*6/uL Low 4.20-6.00 [facility] Comment on above: Order Comment: Speci men Type: BLOOD SPECIMENOrdering Facility: [facility] Address: [address] [place] [address] Performed By: #### 5 7021-8 ####[facility]ENTERNCLIA [id number] [place] [address] [place] WBC (Bld) [#/Vol] 7.30 10*3/uL Normal 3.70-11.00 [facility] Comment on above: Order Comment: Speci men Type: BLOOD SPECIMENOrdering Facility: [facility] Address: [address] [place] [address] Performed By: #### 5 7021-8 ####[facility]ENTERNCLIA [id number] [place] [address] [place] Ferritin SerPl-mCncon 2024 Ferritin [Mass/Vol] 430.0 ng/mL Normal 30.3-565.7 [facility] Comment on above: Order Comment: Speci men Type: BLOOD SPECIMENOrdering Facility: [facility] Address: [address] [place] [address] Performed By: #### 2 276-4, 77566-8 ####[facility] LABCLIA [id number] [place] [address] [place] Iron and Iron binding capaci ty panelon 07-19-2024 Iron [Mass/Vol] 60 ug/dL Normal 41-186 [facility] Comment on above: Order Comment: Speci men Type: BLOOD SPECIMENOrdering Facility: [facility] Address: [address] [place] [address] Performed By: #### 2 276-4, 39099-7 ####[facility] LABIA [id number] [address] [place] Iron binding capacity [Mass/Vol] 286 ug/dL Normal 232-386 [facility] Comment on above: Order Comment: Speci men Type: BLOOD SPECIMENOrdering Facility: [facility] Address: [address] [place] [address] Performed By: #### 2 276-4, 33750-7 ####[facility] LABIA [id number] [place] [address] [place] Iron/TIBC [Molar ratio] 21.0 % Normal 15.0-57.0 [facility] Comment on above: Order Comment: Speci men Type: BLOOD SPECIMENOrdering Facility: [facility] Address: [address] [place] [address] Performed By: #### 2 276-4, 59031-1 ####[facility] LABCLIA [id number] [place] [id number] [place] CNPDarlin 07-16-2024 CNPN Telephone (HEMAWS) ----- SHELTON FOX ([id number]) 1945 M Date Time Provider Department 07/16/24 DAVID LUNDBERG During your visit today, we recorded the following information about you: Guadalupe Sofia 07/16/2024 9:11 AM Signed Spouse called stating that patient had labs completed at [facility], she believes on 06/17. She states blood counts were low and is asking for an appointment or phone call. Please advise. Gina Malave LPN 07/16/2024 9:31 AM Signed Pt.needs scheduled for CBC/Iron studies. PSS please put on lab schedule for 07/19 @ 11:00 am FREDDY Escobar Kaitlyn 07/16/2024 10:41 AM Signed Scheduled Allergies As of Date: 07/16/2024 Noted Allergy Reaction PLAQUENIL (HYDROXYCHLOROQUINE) 01/20/2024 9 - Itching SPIRONOLACTONE 02/03/2023 14 - Other: See Comments Comments: Dizziness and severe headaches INDOCIN (INDOMETHACIN SODIUM) 05/05/2005 6 - Diarrhea MOBIC (MELOXICAM) 08/16/2014 6 - Diarrhea Date Reviewed: 05/30/2024 Reviewed by: Magali Diaz LPN - Fully Assessed Reason for Visit: Results [95] Prescriptions as of 07/16/2024 - allopurinol (ZYLOPRIM) 100 mg tablet Take 1 tablet by mouth two times a day. - pantoprazole DR (PROTONIX) 20 mg tablet Take 1 tablet by mouth daily before breakfast. Take on empty stomach, 1/2 hr before meal. - lisinopril (ZESTRIL) 5 mg tablet Take 5 mg by mouth every afternoon. - acetaminophen (TYLENOL) 325 mg tablet Take by mouth. - simvastatin (ZOCOR) 20 mg tablet Take 1 tablet by mouth once daily. - polyethylene glycol 3350 17 gram packet Take 17 g by mouth once daily. Dissolve dose in 4 - 8 ounces of liquid and take as directed. - aspirin 81 mg chewable tablet Take 81 mg by mouth once daily. Patient reports taking one 81mg chewable tablet by mouth once daily. - Lactobacillus acidophilus (ACIDOPHILUS ORAL) Take 1 capsule by mouth once daily. - vitamin B complex (SUPER B COMPLEX ORAL) Take 1 tablet by mouth once daily. - Magnesium Oxide 500 mg tab Take 1 tablet by mouth once daily. - furosemide (LASIX) 40 mg tablet Take 40 mg by mouth as needed. - carvedilol (COREG) 6.25 mg tablet Take 1 tablet by mouth twice daily. - multivit with minerals/lutein (MULTIVITAMIN 50 PLUS ORAL) Take 1 tablet by mouth once daily. - apixaban (ELIQUIS) 5 mg tab(s) Take 5 mg by mouth twice daily. - Melatonin 5 mg cap Take 5 mg by mouth at bedtime as needed. Meds Comments as of 07/16/2022: Pt reports no med changes in the last month 07/16/2022TP Problem List As Of Date 07/16/2024 Noted Resolved Hyperlipidemia [E78.5] 05/05/2005 Hypertension [I10] 05/05/2005 GOUT NOS [M10.9] ALLERGIC RHINITIS NOS [J30.9] HEPATOMEGALY [R16.0] 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] 08/24/2006 DIVERTICULOSIS OF COLON W/O BLEED [K57.30] 08/24/2006 BENIGN NEOPLASM LG BOWEL [D12.6] 08/24/2006 Pain in limb [M79.609] 10/09/2007 10/30/2018 Disturbance of skin sensation [R20.9] 10/09/2007 10/30/2018 ANKLE ENTHESOPATHY NEC [M77.50] 07/05/2008 CONGENITAL PES PLANUS [Q66.50] 07/05/2008 Symptomatic carotid artery stenosis, right [I65*01/17/2009 Avascular necrosis (HCC) [M87.00] 08/24/2010 01/17/2023 Shoulder joint replacement 09/28/2010 Shoulder joint replacement by other means [Z96.*10/01/2010 Other physical therapy [IKM6287] 10/01/2010 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] 06/28/2011 Gastroesophageal reflux disease [K21.9] 04/27/2017 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 PAD (peripheral artery disease) (HCC) [I73.9] 05/01/2019 Atrial fibrillation (HCC) [I48.91] 08/30/2022 Ischemic cardiomyopathy [I25.5] Status post catheter ablation of atrial fibrill*12/21/2022 Paroxysmal atrial fibrillation (HCC) [I48.0] 03/28/2023 Status post ablation of atrial flutter [Z98.890*03/28/2023 Dyspnea [R06.00] 03/29/2023 Coronary artery disease involving [place] gates*05/19/2023 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] 02/03/2023 Diagnosed: 05/19/2023 History of arthritis [Z87.39] 05/19/2023 Former smoker [Z87.891] 05/19/2023 Anemia [D64.9] 05/19/2023 Dysphagia [R13.10] 05/20/2023 History of colonic polyps [Z86.0100] 05/20/2023 Cardiomyopathy, unspecified type (HCC) [I42.9] 06/22/2023 Preop examination [Z01.818] 12/19/2023 S/P carotid endarterectomy [Z98.890] 12/26/2023 Encounter Status:Closed by GINA MALAVE on 07/16/24 Normal [facility] Lumbar Spine 2 or 3 Viewson 07-06-2024 Lumbar Spine 2 or 3 Views Normal [facility] Orthopedic Visit Reporton Orthopedic Visit Report Normal [facility] 07-02-2024 CNPN Telephone (FAMPWS) ----- SHELTON FOX ([id number]) 1945 M Date Time Provider Department 07/02/24 FEDERICO VIGIL FAMPWS During your visit today, we recorded the following information about you: Barbara Roman RN 07/02/2024 1:42 PM Signed Ranulfo with [facility] Physical Therapy calling with the following: Physical Therapy Plan of Care will be: 2x/week for 4 weeks for functional mobility training. No call back needed if PCP agreeable to this plan. Ranulfo reports patient is taking allopurinol 100 mg twice a day and it is ordered for once a day. Recent OV note on 06/12/24 has documentation that pt takes it twice daily but it is not ordered that way. Ranulfo asking if he can be called back with clarification of frequency for this medication. [phone]. Thank you. Ruth Perez APRN.LIZET 07/02/2024 2:28 PM Signed Can you please call Ranulfo back and let him know that yes the patient should be taking allopurinol 100 mg twice daily, I updated the MAR. We are also agreeable with physical therapy plan of care. Please let me know if he has any additional questions. Thank you. Ruth Perez APRN.Magali Rios LPN 07/02/2024 2:31 PM Signed TC to pt. Left a detailed message on a secure line with updates. Magali Diaz LPN Allergies As of Date: 07/02/2024 Noted Allergy Reaction PLAQUENIL (HYDROXYCHLOROQUINE) 01/20/2024 9 - Itching SPIRONOLACTONE 02/03/2023 14 - Other: See Comments Comments: Dizziness and severe headaches INDOCIN (INDOMETHACIN SODIUM) 05/05/2005 6 - Diarrhea MOBIC (MELOXICAM) 08/16/2014 6 - Diarrhea Date Reviewed: 05/30/2024 Reviewed by: Magali Diaz LPN - Fully Assessed Reason for Visit: PT Plan of Care [Other] Medication Clarification Request [Other] Order(s):allopurinol (ZYLOPRIM) 100 mg tabletTake 1 tablet by mouth two times a day.Disp: 180 tabletRfl: 3 Prescriptions as of 07/02/2024 - allopurinol (ZYLOPRIM) 100 mg tablet Take 1 tablet by mouth two times a day. - pantoprazole DR (PROTONIX) 20 mg tablet Take 1 tablet by mouth daily before breakfast. Take on empty stomach, 1/2 hr before meal. - lisinopril (ZESTRIL) 5 mg tablet Take 5 mg by mouth every afternoon. - acetaminophen (TYLENOL) 325 mg tablet Take by mouth. - simvastatin (ZOCOR) 20 mg tablet Take 1 tablet by mouth once daily. - polyethylene glycol 3350 17 gram packet Take 17 g by mouth once daily. Dissolve dose in 4 - 8 ounces of liquid and take as directed. - aspirin 81 mg chewable tablet Take 81 mg by mouth once daily. Patient reports taking one 81mg chewable tablet by mouth once daily. - Lactobacillus acidophilus (ACIDOPHILUS ORAL) Take 1 capsule by mouth once daily. - vitamin B complex (SUPER B COMPLEX ORAL) Take 1 tablet by mouth once daily. - Magnesium Oxide 500 mg tab Take 1 tablet by mouth once daily. - furosemide (LASIX) 40 mg tablet Take 40 mg by mouth as needed. - carvedilol (COREG) 6.25 mg tablet Take 1 tablet by mouth twice daily. - multivit with minerals/lutein (MULTIVITAMIN 50 PLUS ORAL) Take 1 tablet by mouth once daily. - apixaban (ELIQUIS) 5 mg tab(s) Take 5 mg by mouth twice daily. - Melatonin 5 mg cap Take 5 mg by mouth at bedtime as needed. 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] 08/24/2006 DIVERTICULOSIS OF COLON W/O BLEED [K57.30] 08/24/2006 BENIGN NEOPLASM LG BOWEL [D12.6] 08/24/2006 Pain in limb [M79.609] 10/09/2007 10/30/2018 Disturbance of skin sensation [R20.9] 10/09/2007 10/30/2018 ANKLE ENTHESOPATHY NEC [M77.50] 07/05/2008 CONGENITAL PES PLANUS [Q66.50] 07/05/2008 Symptomatic carotid artery stenosis, right [I65*01/17/2009 Avascular necrosis (HCC) [M87.00] 08/24/2010 01/17/2023 Shoulder joint replacement 09/28/2010 Shoulder joint replacement by other means [Z96.*10/01/2010 Other physical therapy [[id number]] 10/01/2010 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] 06/28/2011 Gastroesophageal reflux disease [K21.9] 04/27/2017 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 PAD (peripheral artery disease) (HCC) [I73.9] 05/01/2019 Atrial fibrillation (HCC) [I48.91] 08/30/2022 Ischemic cardiomyopathy [I25.5] Status post catheter ablation of atrial fibrill*12/21/2022 Paroxysmal atrial fibrillation (HCC) [I48.0] 03/28/2023 Status post ablation of atrial flutter [Z98.890*03/28/2023 Dyspnea [R06.00] 03/29/2023 Coronary artery disease involving [place]*05/19/2023 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 Normal [facility] Basic Metabolic Profile (BMP )on 06-29-2024 BUN/CRE 15.9 RATIO Normal 10-20 [facility] Comment on above: Performed By: #### L 100.0500, L500.2500 ####[facility] [address] [place], [address] CA,Total 9.2 mg/dL Normal 8.5-10.1 [facility] Comment on above: Performed By: #### L 100.0500, L500.2500 ####[facility] [address] [place], [address] Chloride [Moles/Vol] 104 mmol/L Normal 98-107 [facility] Comment on above: Performed By: #### L 100.0500, L500.2500 ####[facility] [address] [place], [address] CO2 [Moles/Vol] 21.0 mmol/L Normal 21.0-32.0 [facility] Comment on above: Performed By: #### L 100.0500, L500.2500 ####[facility] [address] [place], [address] Creatinine [Mass/Vol] 1.13 mg/dL Normal 0.70-1.30 [facility] Comment on above: Result Comment: The validity of the calculated GFR GFRAA in patients over70 years has not been determined. Clinical correlation isessential. Performed By: #### L 100.0500, L500.2500 ####[facility] [address] [place], [address] ECRCL 55.63 ml/min Normal [facility] Comment on above: Performed By: #### L 100.0500, L500.2500 ####[facility] [address] [place], [address] EST GFR - AA 81 mL/min Normal >60 [facility] Comment on above: Result Comment: Afri can [place] GFR Calc Performed By: #### L 100.0500, L500.2500 ####[facility] [address] [place], [address] GAP 7 Normal 5-15 [facility] Comment on above: Performed By: #### L 100.0500, L500.2500 ####[facility] [address] [place], [address] GFR/1.73 sq M.predicted among non-blacks MDRD (S/P/Bld) [Vol rate/Area] 67 mL/min/{1.73_m2} Normal >60 [facility] Comment on above: Result Comment: Non- GFR Calc Performed By: #### L 100.0500, L500.2500 ####[facility] [address] [place], [address] Glucose [Mass/Vol] 101 mg/dL Normal 74-106 [facility] Comment on above: Result Comment: Fast ing Glucose result from 100 to 125 mg/dLsuggests IMPAIRED HOMEOSTASIS per A.D.A. criteria. Performed By: #### L 100.0500, L500.2500 ####[facility] [address] [place], [address] Potassium [Moles/Vol] 4.3 mmol/L Normal 3.5-5.1 [facility] Comment on above: Result Comment: Slig ht Hemolysis, Result may be falsely increased. Performed By: #### L 100.0500, L500.2500 ####[facility] [address] [place], [address] Sodium [Moles/Vol] 132 mmol/L Low 136-145 [facility] Comment on above: Performed By: #### L 100.0500, L500.2500 ####[facility] [address] [place], [address] Urea nitrogen [Mass/Vol] 18 mg/dL Normal 7-18 [facility] Comment on above: Performed By: #### L 100.0500, L500.2500 ####[facility] [address] [place], [address] CBC-Complete Blood Cnt No Di ffon 06-29-2024 Erythrocyte distribution width (RBC) [Ratio] 14.6 % Normal 11.6-14.6 [facility] Comment on above: Performed By: #### L 100.0500, L500.2500 ####[facility] [address] [place], [address] Hematocrit (Bld) [Volume fraction] 31.1 % Low 40-54 [facility] Comment on above: Performed By: #### L 100.0500, L500.2500 ####[facility] [address] [place], [address] Hemoglobin (Bld) [Mass/Vol] 10.5 g/dL Low 13.0-16.5 [facility] Comment on above: Performed By: #### L 100.0500, L500.2500 ####[facility] [address] [place], [address] MCH (RBC) [Entitic mass] 30.7 pg Normal 27.0-32.0 [facility] Comment on above: Performed By: #### L 100.0500, L500.2500 ####[facility] [address] [place], [address] MCHC (RBC) [Mass/Vol] 33.8 g/dL Normal 32-36 [facility] Comment on above: Performed By: #### L 100.0500, L500.2500 ####[facility] [address] [place], [address] MCV (RBC) [Entitic vol] 90.9 fL Normal 80-94 [facility] Comment on above: Performed By: #### L 100.0500, L500.2500 ####[facility] [address] [place], [address] Platelet mean volume (Bld) [Entitic vol] 8.9 fL Normal 6.2-12.0 [facility] Comment on above: Performed By: #### L 100.0500, L500.2500 ####[facility] [address] [place], [address] Platelets (Bld) [#/Vol] 240 10*3/uL Normal 150-450 [facility] Comment on above: Performed By: #### L 100.0500, L500.2500 ####[facility] [address] [place], [address] RBC (Bld) [#/Vol] 3.42 10*6/uL Low 4.6-6.2 [facility] Comment on above: Performed By: #### L 100.0500, L500.2500 ####[facility] [address] [place], [address] RDW SD 49.0 fl High 35.1-43.9 [facility] Comment on above: Performed By: #### L 100.0500, L500.2500 ####[facility] [address] [place], [address] WBC (Bld) [#/Vol] 10.3 10*3/uL Normal 4.4-11.0 [facility] Comment on above: Performed By: #### L 100.0500, L500.2500 ####[facility] [address] [place], [address] [facility] [facility] ----- SHELTON FOX ([id number]) 1945 M Date Time Provider Department 06/29/24 [facility] During your visit today, we recorded the following information about you: Evon Ross, RN 06/29/2024 12:20 PM Signed [facility] - [facility]- reports patient will discharge from [facility] today with orders for [facility] PT OT. Dx: L5 compression fracture. Asking if pcp is agreeable to follow for orders, and asking for delay in care order because [facility] is not available to see patient until Tuesday. Please phone Susy with verbal: [phone] Federico Vigil MD 06/29/2024 1:52 PM Signed I am agreeable to follow for orders, and OK for delay in care order because [facility] is not available to see patient until Tuesday MD Domo Kowalski Rilee, MA 06/29/2024 1:56 PM Signed Called and LM on confidential intake line with information below. If questions to contact office and ask to speak with Triage Nurse. Yasmeen Oliveros MA Allergies As of Date: 06/29/2024 Noted Allergy Reaction PLAQUENIL (HYDROXYCHLOROQUINE) 01/20/2024 9 - Itching SPIRONOLACTONE 02/03/2023 14 - Other: See Comments Comments: Dizziness and severe headaches INDOCIN (INDOMETHACIN SODIUM) 05/05/2005 6 - Diarrhea MOBIC (MELOXICAM) 08/16/2014 6 - Diarrhea Date Reviewed: 05/30/2024 Reviewed by: Magali Diaz LPN - Fully Assessed Reason for Visit: Agree to follow for [facility] HH PT OT [Other] Prescriptions as of 07/02/2024 - allopurinol (ZYLOPRIM) 100 mg tablet Take 1 tablet by mouth once daily. - pantoprazole DR (PROTONIX) 20 mg tablet Take 1 tablet by mouth daily before breakfast. Take on empty stomach, 1/2 hr before meal. - lisinopril (ZESTRIL) 5 mg tablet Take 5 mg by mouth every afternoon. - acetaminophen (TYLENOL) 325 mg tablet Take by mouth. - simvastatin (ZOCOR) 20 mg tablet Take 1 tablet by mouth once daily. - polyethylene glycol 3350 17 gram packet Take 17 g by mouth once daily. Dissolve dose in 4 - 8 ounces of liquid and take as directed. - aspirin 81 mg chewable tablet Take 81 mg by mouth once daily. Patient reports taking one 81mg chewable tablet by mouth once daily. - Lactobacillus acidophilus (ACIDOPHILUS ORAL) Take 1 capsule by mouth once daily. - vitamin B complex (SUPER B COMPLEX ORAL) Take 1 tablet by mouth once daily. - Magnesium Oxide 500 mg tab Take 1 tablet by mouth once daily. - furosemide (LASIX) 40 mg tablet Take 40 mg by mouth as needed. - carvedilol (COREG) 6.25 mg tablet Take 1 tablet by mouth twice daily. - multivit with minerals/lutein (MULTIVITAMIN 50 PLUS ORAL) Take 1 tablet by mouth once daily. - apixaban (ELIQUIS) 5 mg tab(s) Take 5 mg by mouth twice daily. - Melatonin 5 mg cap Take 5 mg by mouth at bedtime as needed. 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] 08/24/2006 DIVERTICULOSIS OF COLON W/O BLEED [K57.30] 08/24/2006 BENIGN NEOPLASM LG BOWEL [D12.6] 08/24/2006 Pain in limb [M79.609] 10/09/2007 10/30/2018 Disturbance of skin sensation [R20.9] 10/09/2007 10/30/2018 ANKLE ENTHESOPATHY NEC [M77.50] 07/05/2008 CONGENITAL PES PLANUS [Q66.50] 07/05/2008 Symptomatic carotid artery stenosis, right [I65*01/17/2009 Avascular necrosis (HCC) [M87.00] 08/24/2010 01/17/2023 Shoulder joint replacement 09/28/2010 Shoulder joint replacement by other means [Z96.*10/01/2010 Other physical therapy [JEA1952] 10/01/2010 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] 06/28/2011 Gastroesophageal reflux disease [K21.9] 04/27/2017 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 PAD (peripheral artery disease) (HCC) [I73.9] 05/01/2019 Atrial fibrillation (HCC) [I48.91] 08/30/2022 Ischemic cardiomyopathy [I25.5] Status post catheter ablation of atrial fibrill*12/21/2022 Paroxysmal atrial fibrillation (HCC) [I48.0] 03/28/2023 Status post ablation of atrial flutter [Z98.890*03/28/2023 Dyspnea [R06.00] 03/29/2023 Coronary artery disease involving [place]*05/19/2023 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] 02/03/2023 Diagnosed: 05/19/2023 History of arthritis [Z87.39] 05/19/2023 Former smoker [Z87.891] 05/19/2023 Anemia [D64.9] 05/19/2023 Dysphagia [R13.10] 05/20/2023 History of colonic polyps [Z86.0100] 05/20/2023 Cardiomyopathy, unspecified type (HCC) [I42.9] 06/22/2023 Preop examination [Z01.818] 12/19/2023 S/P carotid endarterectomy [Z98.890] 12/26/2023 Encounter Status:Closed by Evon ROSS on 07/02/24 Normal [facility] Discharge Instructionon 06-17 Discharge Instruction Normal [facility] Basic Metabolic Profile (BMP )on 06-28-2024 BUN/CRE 14.1 RATIO Normal 10-20 [facility] Comment on above: Performed By: #### L 100.0500, L500.2500 ####[facility] [address] [place], [address] CA,Total 8.9 mg/dL Normal 8.5-10.1 [facility] Comment on above: Performed By: #### L 100.0500, L500.2500 ####[facility] [address] [place], [address] Chloride [Moles/Vol] 104 mmol/L Normal 98-107 [facility] Comment on above: Performed By: #### L 100.0500, L500.2500 ####[facility] [address] [place], [address] CO2 [Moles/Vol] 25.0 mmol/L Normal 21.0-32.0 [facility] Comment on above: Performed By: #### L 100.0500, L500.2500 ####[facility] [address] [place], [address] Creatinine [Mass/Vol] 0.92 mg/dL Normal 0.70-1.30 [facility] Comment on above: Result Comment: The validity of the calculated GFR GFRAA in patients over70 years has not been determined. Clinical correlation isessential. Performed By: #### L 100.0500, L500.2500 ####[facility] [address] [place], [address] ECRCL 68.33 ml/min Normal [facility] Comment on above: Performed By: #### L 100.0500, L500.2500 ####[facility] [address] [place], [address] EST GFR - AA 102 mL/min Normal >60 [facility] Comment on above: Result Comment: Afri can [place]an GFR Calc Performed By: #### L 100.0500, L500.2500 ####[facility] [address] [place], [address] GAP 5 Normal 5-15 [facility] Comment on above: Performed By: #### L 100.0500, L500.2500 ####[facility] [address] [place], [address] GFR/1.73 sq M.predicted among non-blacks MDRD (S/P/Bld) [Vol rate/Area] 84 mL/min/{1.73_m2} Normal >60 [facility] Comment on above: Result Comment: Non- GFR Calc Performed By: #### L 100.0500, L500.2500 ####[facility] [address] [place], [address] Glucose [Mass/Vol] 102 mg/dL Normal 74-106 [facility] Comment on above: Result Comment: Fast ing Glucose result from 100 to 125 mg/dLsuggests IMPAIRED HOMEOSTASIS per A.D.A. criteria. Performed By: #### L 100.0500, L500.2500 ####[facility] [address] [place], [address] Potassium [Moles/Vol] 4.3 mmol/L Normal 3.5-5.1 [facility] Comment on above: Performed By: #### L 100.0500, L500.2500 ####[facility] [address] [place], [address] Sodium [Moles/Vol] 134 mmol/L Low 136-145 [facility] Comment on above: Performed By: #### L 100.0500, L500.2500 ####[facility] [address] [place], [address] Urea nitrogen [Mass/Vol] 13 mg/dL Normal 7-18 [facility] Comment on above: Performed By: #### L 100.0500, L500.2500 ####[facility] [address] [place], [address] CBC-Complete Blood Cnt No Di ffon 06-28-2024 Erythrocyte distribution width (RBC) [Ratio] 14.5 % Normal 11.6-14.6 [facility] Comment on above: Performed By: #### L 100.0500, L500.2500 ####[facility] [address] [place], [address] Hematocrit (Bld) [Volume fraction] 32.2 % Low 40-54 [facility] Comment on above: Performed By: #### L 100.0500, L500.2500 ####[facility] [address] [place], [address] Hemoglobin (Bld) [Mass/Vol] 11.0 g/dL Low 13.0-16.5 [facility] Comment on above: Performed By: #### L 100.0500, L500.2500 ####[facility] [address] [place], [address] MCH (RBC) [Entitic mass] 30.9 pg Normal 27.0-32.0 [facility] Comment on above: Performed By: #### L 100.0500, L500.2500 ####[facility] [address] [place], [address] MCHC (RBC) [Mass/Vol] 34.2 g/dL Normal 32-36 [facility] Comment on above: Performed By: #### L 100.0500, L500.2500 ####[facility] [address] [place], [address] MCV (RBC) [Entitic vol] 90.4 fL Normal 80-94 [facility] Comment on above: Performed By: #### L 100.0500, L500.2500 ####[facility] [address] [place], [address] Platelet mean volume (Bld) [Entitic vol] 9.0 fL Normal 6.2-12.0 [facility] Comment on above: Performed By: #### L 100.0500, L500.2500 ####[facility] [address] [place], [address] Platelets (Bld) [#/Vol] 249 10*3/uL Normal 150-450 [facility] Comment on above: Performed By: #### L 100.0500, L500.2500 ####[facility] [address] [place], [address] RBC (Bld) [#/Vol] 3.56 10*6/uL Low 4.6-6.2 [facility] Comment on above: Performed By: #### L 100.0500, L500.2500 ####[facility] [address] [place], [address] RDW SD 48.3 fl High 35.1-43.9 [facility] Comment on above: Performed By: #### L 100.0500, L500.2500 ####[facility] [address] [place], [address] WBC (Bld) [#/Vol] 11.0 10*3/uL Normal 4.4-11.0 [facility] Comment on above: Performed By: #### L 100.0500, L500.2500 ####[facility] [address] [place], [address] Consultation - Orthopedicson 06-28-2024 Consultation - Orthopedics Normal [facility] Basic Metabolic Profile (BMP )on 06-27-2024 BUN/CRE 12.6 RATIO Normal 10-20 [facility] Comment on above: Performed By: #### L 500.2500, L100.0100 ####[facility] [address] [place], [address] CA,Total 9.1 mg/dL Normal 8.5-10.1 [facility] Comment on above: Performed By: #### L 500.2500, L100.0100 ####[facility] [address] [place], [address] Chloride [Moles/Vol] 101 mmol/L Normal 98-107 [facility] Comment on above: Performed By: #### L 500.2500, L100.0100 ####[facility] [address] [place], [address] CO2 [Moles/Vol] 23.0 mmol/L Normal 21.0-32.0 [facility] Comment on above: Performed By: #### L 500.2500, L100.0100 ####[facility] [address] [place], [address] Creatinine [Mass/Vol] 0.95 mg/dL Normal 0.70-1.30 [facility] Comment on above: Result Comment: The validity of the calculated GFR GFRAA in patients over70 years has not been determined. Clinical correlation isessential. Performed By: #### L 500.2500, L100.0100 ####[facility] [address] [place], [address] ECRCL 66.17 ml/min Normal [facility] Comment on above: Performed By: #### L 500.2500, L100.0100 ####[facility] [address] [place], [address] EST GFR - AA 98 mL/min Normal >60 [facility] Comment on above: Result Comment: Afri can [place] GFR Calc Performed By: #### L 500.2500, L100.0100 ####[facility] [address] [place], [address] GAP 8 Normal 5-15 [facility] Comment on above: Performed By: #### L 500.2500, L100.0100 ####[facility] [address] [place], [address] GFR/1.73 sq M.predicted among non-blacks MDRD (S/P/Bld) [Vol rate/Area] 81 mL/min/{1.73_m2} Normal >60 [facility] Comment on above: Result Comment: Non- GFR Calc Performed By: #### L 500.2500, L100.0100 ####[facility] [address] [place], [address] Glucose [Mass/Vol] 112 mg/dL High 74-106 [facility] Comment on above: Result Comment: Fast ing Glucose result from 100 to 125 mg/dLsuggests IMPAIRED HOMEOSTASIS per A.D.A. criteria. Performed By: #### L 500.2500, L100.0100 ####[facility] [address] [place], [address] Potassium [Moles/Vol] 4.1 mmol/L Normal 3.5-5.1 [facility] Comment on above: Performed By: #### L 500.2500, L100.0100 ####[facility] [address] [place], [address] Sodium [Moles/Vol] 132 mmol/L Low 136-145 [facility] Comment on above: Performed By: #### L 500.2500, L100.0100 ####[facility] [address] [place], [address] Urea nitrogen [Mass/Vol] 12 mg/dL Normal 7-18 [facility] Comment on above: Performed By: #### L 500.2500, L100.0100 ####[facility] [address] [place], [address] CBC W/Diff, Automatedon 12 Absolute Lymph 1.70 X10 3/uL Normal 0.83-4.51 [facility] Comment on above: Performed By: #### L 500.2500, L100.0100 ####[facility] [address] [place], [address] Absolute Neut 6.6 X10 3/uL Normal 2.0-7.7 [facility] Comment on above: Performed By: #### L 500.2500, L100.0100 ####[facility] [address] [place], [address] Basophils/100 WBC (Bld) 0.4 % Normal 0-1 [facility] Comment on above: Performed By: #### L 500.2500, L100.0100 ####[facility] [address] [place], [address] Eosinophils/100 WBC (Bld) 2.1 % Normal 0-5 [facility] Comment on above: Performed By: #### L 500.2500, L100.0100 ####[facility] [address] [place], [address] Erythrocyte distribution width (RBC) [Ratio] 14.6 % Normal 11.6-14.6 [facility] Comment on above: Performed By: #### L 500.2500, L100.0100 ####[facility] [address] [place], [address] Hematocrit (Bld) [Volume fraction] 34.5 % Low 40-54 [facility] Comment on above: Performed By: #### L 500.2500, L100.0100 ####[facility] [address] [place], [address] Hemoglobin (Bld) [Mass/Vol] 12.0 g/dL Low 13.0-16.5 [facility] Comment on above: Performed By: #### L 500.2500, L100.0100 ####[facility] [address] [place], [address] IG% 1.100 High 0.0-0.9 [facility] Comment on above: Result Comment: IG% - Immature Granulocytes (promyelocytes, myelocytes andmetamyelocytes) > 1% indicates that a LEFT SHIFT is Present. Performed By: #### L 500.2500, L100.0100 ####[facility] [address] [place], [address] Lymphocytes/100 WBC (Bld) 18.0 % Low 19-41 [facility] Comment on above: Performed By: #### L 500.2500, L100.0100 ####[facility] [address] [place], [address] MCH (RBC) [Entitic mass] 31.3 pg Normal 27.0-32.0 [facility] Comment on above: Performed By: #### L 500.2500, L100.0100 ####[facility] [address] [place], [address] MCHC (RBC) [Mass/Vol] 34.8 g/dL Normal 32-36 [facility] Comment on above: Performed By: #### L 500.2500, L100.0100 ####[facility] [address] [place], [address] MCV (RBC) [Entitic vol] 89.8 fL Normal 80-94 [facility] Comment on above: Performed By: #### L 500.2500, L100.0100 ####[facility] [address] [place], [address] Monocytes/100 WBC (Bld) 8.1 % Normal 0-10 [facility] Comment on above: Performed By: #### L 500.2500, L100.0100 ####[facility] [address] [place], [address] Neutrophils/100 WBC (Bld) 70.3 % High 47-70 [facility] Comment on above: Performed By: #### L 500.2500, L100.0100 ####[facility] [address] [place], [address] Nucleated RBC (Bld) [#/Vol] 0 10*3/uL Normal 0-5 [facility] Comment on above: Performed By: #### L 500.2500, L100.0100 ####[facility] [address] [place], [address] Platelet mean volume (Bld) [Entitic vol] 9.0 fL Normal 6.2-12.0 [facility] Comment on above: Performed By: #### L 500.2500, L100.0100 ####[facility] [address] [place], [address] Platelets (Bld) [#/Vol] 265 10*3/uL Normal 150-450 [facility] Comment on above: Performed By: #### L 500.2500, L100.0100 ####[facility] [address] [place], [address] RBC (Bld) [#/Vol] 3.84 10*6/uL Low 4.6-6.2 [facility] Comment on above: Performed By: #### L 500.2500, L100.0100 ####[facility] [address] [place], [address] RDW SD 47.3 fl High 35.1-43.9 [facility] Comment on above: Performed By: #### L 500.2500, L100.0100 ####[facility] [address] [place], [address] WBC (Bld) [#/Vol] 9.4 10*3/uL Normal 4.4-11.0 [facility] Comment on above: Performed By: #### L 500.2500, L100.0100 ####[facility] [address] [place], [address] Emergency Department Summary on 06-27-2024 Emergency Department Summary Normal [facility] H AND P Exam - Hospitaliston 06-27-2024 H&P Exam - Hospitalist Normal [facility] Spine Lumbar (Routine)on Spine Lumbar (Routine) Normal [facility] Urinalysis, Completeon 06-27 BACTERIA 0 SEEN Normal None Seen [facility] Comment on above: Order Comment: CONNER CTOR TO SPECIFY Performed By: #### L 400.0001 ####[facility] [address] [place], [address] EPI,SQUAMOUS 0 SEEN Normal 0-5 [facility] Comment on above: Order Comment: CONNER CTOR TO SPECIFY Performed By: #### L 400.0001 ####[facility] [address] [place], [address] Mucus Ql (Urine sed) 0 SEEN Normal [facility] Comment on above: Order Comment: CONNER CTOR TO SPECIFY Performed By: #### L 400.0001 ####[facility] [address] [place], [address] RBC 0 SEEN Normal 0-5 [facility] Comment on above: Order Comment: CONNER CTOR TO SPECIFY Performed By: #### L 400.0001 ####[facility] [address] [place], [address] WBC 0 SEEN Normal 0-5 [facility] Comment on above: Order Comment: COLLE CTOR TO SPECIFY Performed By: #### L 400.0001 ####[facility] [address] [place], [address] Basic Metabolic Profile (BMP )on 06-21-2024 BUN/CRE 20.4 RATIO High 10-20 [facility] Comment on above: Performed By: #### L 100.0500, L500.2500 ####[facility] [address] [place], [address] CA,Total 9.1 mg/dL Normal 8.5-10.1 [facility] Comment on above: Performed By: #### L 100.0500, L500.2500 ####[facility] [address] [place], [address] Chloride [Moles/Vol] 103 mmol/L Normal 98-107 [facility] Comment on above: Performed By: #### L 100.0500, L500.2500 ####[facility] [address] [place], [address] CO2 [Moles/Vol] 22.0 mmol/L Normal 21.0-32.0 [facility] Comment on above: Performed By: #### L 100.0500, L500.2500 ####[facility] [address] [place], [address] Creatinine [Mass/Vol] 0.98 mg/dL Normal 0.70-1.30 [facility] Comment on above: Result Comment: The validity of the calculated GFR GFRAA in patients over70 years has not been determined. Clinical correlation isessential. Performed By: #### L 100.0500, L500.2500 ####[facility] [address] [place], [address] ECRCL 64.14 ml/min Normal [facility] Comment on above: Performed By: #### L 100.0500, L500.2500 ####[facility] [address] [place], [address] EST GFR - AA 95 mL/min Normal >60 [facility] Comment on above: Result Comment: Afri can [place] GFR Calc Performed By: #### L 100.0500, L500.2500 ####[facility] [address] [place], [address] GAP 7 Normal 5-15 [facility] Comment on above: Performed By: #### L 100.0500, L500.2500 ####[facility] [address] [place], [address] GFR/1.73 sq M.predicted among non-blacks MDRD (S/P/Bld) [Vol rate/Area] 79 mL/min/{1.73_m2} Normal >60 [facility] Comment on above: Result Comment: Non- GFR Calc Performed By: #### L 100.0500, L500.2500 ####[facility] [address] [place], [address] Glucose [Mass/Vol] 171 mg/dL High 74-106 [facility] Comment on above: Result Comment: Fast ing Glucose result greater than or equal to 126 mg/dLsuggests DIABETES MELLITUS per A.D.A. criteria. Performed By: #### L 100.0500, L500.2500 ####[facility] [address] [place], [address] Potassium [Moles/Vol] 4.7 mmol/L Normal 3.5-5.1 [facility] Comment on above: Performed By: #### L 100.0500, L500.2500 ####[facility] [address] [place], [address] Sodium [Moles/Vol] 132 mmol/L Low 136-145 [facility] Comment on above: Performed By: #### L 100.0500, L500.2500 ####[facility] [address] [place], [address] Urea nitrogen [Mass/Vol] 20 mg/dL High 7-18 [facility] Comment on above: Performed By: #### L 100.0500, L500.2500 ####[facility] [address] [place], [address] CBC-Complete Blood Cnt No Di ffon 06-21-2024 Erythrocyte distribution width (RBC) [Ratio] 14.8 % High 11.6-14.6 [facility] Comment on above: Performed By: #### L 100.0500, L500.2500 ####[facility] [address] [place], [address] Hematocrit (Bld) [Volume fraction] 36.5 % Low 40-54 [facility] Comment on above: Performed By: #### L 100.0500, L500.2500 ####[facility] [address] [place], [address] Hemoglobin (Bld) [Mass/Vol] 12.2 g/dL Low 13.0-16.5 [facility] Comment on above: Performed By: #### L 100.0500, L500.2500 ####[facility] [address] [place], [address] MCH (RBC) [Entitic mass] 30.2 pg Normal 27.0-32.0 [facility] Comment on above: Performed By: #### L 100.0500, L500.2500 ####[facility] [address] [place], [address] MCHC (RBC) [Mass/Vol] 33.4 g/dL Normal 32-36 [facility] Comment on above: Performed By: #### L 100.0500, L500.2500 ####[facility] [address] [place], [address] MCV (RBC) [Entitic vol] 90.3 fL Normal 80-94 [facility] Comment on above: Performed By: #### L 100.0500, L500.2500 ####[facility] [address] [place], [address] Platelet mean volume (Bld) [Entitic vol] 9.3 fL Normal 6.2-12.0 [facility] Comment on above: Performed By: #### L 100.0500, L500.2500 ####[facility] [address] [place], [address] Platelets (Bld) [#/Vol] 218 10*3/uL Normal 150-450 [facility] Comment on above: Performed By: #### L 100.0500, L500.2500 ####[facility] [address] [place], [address] RBC (Bld) [#/Vol] 4.04 10*6/uL Low 4.6-6.2 [facility] Comment on above: Performed By: #### L 100.0500, L500.2500 ####[facility] [address] [place], [address] RDW SD 48.4 fl High 35.1-43.9 [facility] Comment on above: Performed By: #### L 100.0500, L500.2500 ####[facility] [address] [place], [address] WBC (Bld) [#/Vol] 14.2 10*3/uL High 4.4-11.0 [facility] Comment on above: Performed By: #### L 100.0500, L500.2500 ####[facility] [id number] [place], [address] Bedside Glucoseon 12-04-2024 FINGERSTICK GLU 105 mg/dL Normal 74-106 [facility] Comment on above: Result Comment: SHANA SANGITA OF PATIENT CARE PER NURSING PROTOCOL Performed By: #### L 501.080 ####[facility] [id number] [place], [address] MR/POSTOP.ANEon 06-20-2024 MR/POSTOP.ANE Normal [facility] MR/[id number] 06-20-2024 MR/POSTOPAN2 Normal [facility] Operative Reporton Operative Report Normal [facility] Spine 1 View Any Levelon Spine 1 View Any Level Normal [facility] CNPNon 06-18-2024 CNPN Telephone (INTMWS) ----- SHELTON FOX ([id number]) 1945 M Date Time Provider Department 06/18/24 RUTH PEREZ INTWS During your visit today, we recorded the following information about you: Gt Joseph LPN 06/18/2024 2:17 PM Signed called asking that today labs be faxed to Dr. Pool at [facility]. Labs printed and faxed as requested. Allergies As of Date: 06/18/2024 Noted Allergy Reaction PLAQUENIL (HYDROXYCHLOROQUINE) 01/20/2024 9 - Itching SPIRONOLACTONE 02/03/2023 14 - Other: See Comments Comments: Dizziness and severe headaches INDOCIN (INDOMETHACIN SODIUM) 05/05/2005 6 - Diarrhea MOBIC (MELOXICAM) 08/16/2014 6 - Diarrhea Date Reviewed: 05/30/2024 Reviewed by: Magali Diaz LPN - Fully Assessed Reason for Visit: Results [95] Cmt: labs Prescriptions as of 07/06/2024 - allopurinol (ZYLOPRIM) 100 mg tablet Take 1 tablet by mouth two times a day. - pantoprazole DR (PROTONIX) 20 mg tablet Take 1 tablet by mouth daily before breakfast. Take on empty stomach, 1/2 hr before meal. - lisinopril (ZESTRIL) 5 mg tablet Take 5 mg by mouth every afternoon. - acetaminophen (TYLENOL) 325 mg tablet Take by mouth. - simvastatin (ZOCOR) 20 mg tablet Take 1 tablet by mouth once daily. - polyethylene glycol 3350 17 gram packet Take 17 g by mouth once daily. Dissolve dose in 4 - 8 ounces of liquid and take as directed. - aspirin 81 mg chewable tablet Take 81 mg by mouth once daily. Patient reports taking one 81mg chewable tablet by mouth once daily. - Lactobacillus acidophilus (ACIDOPHILUS ORAL) Take 1 capsule by mouth once daily. - vitamin B complex (SUPER B COMPLEX ORAL) Take 1 tablet by mouth once daily. - Magnesium Oxide 500 mg tab Take 1 tablet by mouth once daily. - furosemide (LASIX) 40 mg tablet Take 40 mg by mouth as needed. - carvedilol (COREG) 6.25 mg tablet Take 1 tablet by mouth twice daily. - multivit with minerals/lutein (MULTIVITAMIN 50 PLUS ORAL) Take 1 tablet by mouth once daily. - apixaban (ELIQUIS) 5 mg tab(s) Take 5 mg by mouth twice daily. - Melatonin 5 mg cap Take 5 mg by mouth at bedtime as needed. Meds Comments as of 07/16/2022: Pt reports no med changes in the last month 07/16/2022TP Problem List As Of Date 06/18/2024 Noted Resolved Hyperlipidemia [E78.5] 05/05/2005 Hypertension [I10] 05/05/2005 GOUT NOS [M10.9] ALLERGIC RHINITIS NOS [J30.9] HEPATOMEGALY [R16.0] 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] 08/24/2006 DIVERTICULOSIS OF COLON W/O BLEED [K57.30] 08/24/2006 BENIGN NEOPLASM LG BOWEL [D12.6] 08/24/2006 Pain in limb [M79.609] 10/09/2007 10/30/2018 Disturbance of skin sensation [R20.9] 10/09/2007 10/30/2018 ANKLE ENTHESOPATHY NEC [M77.50] 07/05/2008 CONGENITAL PES PLANUS [Q66.50] 07/05/2008 Symptomatic carotid artery stenosis, right [I65*01/17/2009 Avascular necrosis (HCC) [M87.00] 08/24/2010 01/17/2023 Shoulder joint replacement 09/28/2010 Shoulder joint replacement by other means [Z96.*10/01/2010 Other physical therapy [RXV6394] 10/01/2010 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] 06/28/2011 Gastroesophageal reflux disease [K21.9] 04/27/2017 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 PAD (peripheral artery disease) (HCC) [I73.9] 05/01/2019 Atrial fibrillation (HCC) [I48.91] 08/30/2022 Ischemic cardiomyopathy [I25.5] Status post catheter ablation of atrial fibrill*12/21/2022 Paroxysmal atrial fibrillation (HCC) [I48.0] 03/28/2023 Status post ablation of atrial flutter [Z98.890*03/28/2023 Dyspnea [R06.00] 03/29/2023 Coronary artery disease involving [place]*05/19/2023 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] 02/03/2023 Diagnosed: 05/19/2023 History of arthritis [Z87.39] 05/19/2023 Former smoker [Z87.891] 05/19/2023 Anemia [D64.9] 05/19/2023 Dysphagia [R13.10] 05/20/2023 History of colonic polyps [Z86.0100] 05/20/2023 Cardiomyopathy, unspecified type (HCC) [I42.9] 06/22/2023 Preop examination [Z01.818] 12/19/2023 S/P carotid endarterectomy [Z98.890] 12/26/2023 Encounter Status:Closed by GT JOSEPH on 07/06/24 Normal [facility] Comprehensive metabolic 2000 panelon 06-18-2024 Albumin [Mass/Vol] 4.3 g/dL Normal 3.9-4.9 [facility] Comment on above: Order Comment: Speci men Type: BLOOD SPECIMENOrdering Facility: [facility] Address: [address] [place] [address] Performed By: #### 2 4323-8 ####[facility] BRIANNA MILLTOWNCLIA [id number] [place] [address] [place] ALP [Catalytic activity/Vol] 110 U/L Normal 38-113 [facility] Comment on above: Order Comment: Speci men Type: BLOOD SPECIMENOrdering Facility: [facility] Address: [address] [place] [address] Performed By: #### 2 4323-8 ####[facility] MILLTOWNCLIA [id number] [place] [address] [place] ALT [Catalytic activity/Vol] 19 U/L Normal 10-54 [facility] Comment on above: Order Comment: Speci men Type: BLOOD SPECIMENOrdering Facility: [facility] Address: [address] [place] [address] Performed By: #### 2 4323-8 ####[facility] MILLTOWNCLIA [id number] [place] [address] [place] Anion gap [Moles/Vol] 14 mmol/L Normal 8-15 [facility] Comment on above: Order Comment: Speci men Type: BLOOD SPECIMENOrdering Facility: [facility] Address: [address] [place] [address] Performed By: #### 2 4323-8 ####[facility] MILLTOWNCLIA [id number] [place] [address] [place] AST [Catalytic activity/Vol] 25 U/L Normal 14-40 [facility] Comment on above: Order Comment: Speci men Type: BLOOD SPECIMENOrdering Facility: [facility] Address: [address] [place] [address] Performed By: #### 2 4323-8 ####[facility] MILLTOWNCLIA [id number] [place] [address] [place] Bilirubin [Mass/Vol] 0.9 mg/dL Normal 0.2-1.3 [facility] Comment on above: Order Comment: Speci men Type: BLOOD SPECIMENOrdering Facility: [facility] Address: [address] [place] [address] Performed By: #### 2 4323-8 ####[facility] BRIANNA MILLTOWNCLIA [id number] [place] [address] [place] Calcium [Mass/Vol] 9.8 mg/dL Normal 8.5-10.2 [facility] Comment on above: Order Comment: Speci men Type: BLOOD SPECIMENOrdering Facility: [facility] Address: [address] [place] [address] Performed By: #### 2 4323-8 ####[facility]STITUTEWALMALIA [id number] [place] [address] [place] Chloride [Moles/Vol] 97 mmol/L Low 98-107 [facility] Comment on above: Order Comment: Speci men Type: BLOOD SPECIMENOrdering Facility: [facility] Address: [address] [place] [address] Performed By: #### 2 4323-8 ####[facility] MILLWNCLIA [id number] [place] [address] [place] CO2 [Moles/Vol] 19 mmol/L Low 22-30 [facility] Comment on above: Order Comment: Speci men Type: BLOOD SPECIMENOrdering Facility: [facility] Address: [address] [place] [address] Performed By: #### 2 4323-8 ####[facility] BRIANNA MILLTOWNCLIA [id number] [place] [address] [place] Creatinine [Mass/Vol] 0.96 mg/dL Normal 0.73-1.22 [facility] Comment on above: Order Comment: Tiarra jackson Type: BLOOD SPECIMENOrdering Facility: [facility] Address: [address] [place] [address] Performed By: #### 2 4323-8 ####[facility] [id number] [place] [address] [place] Creatinine and Glomerular filtration rate.predicted panel (S/P/Bld) 81 mL/min/1.73m??? Normal >=60 [facility] Comment on above: Order Comment: Tiarra jackson Type: BLOOD SPECIMENOrdering Facility: [facility] Address: [address] [place] [address] Result Comment: More mated Glomerular Filtration Rate (eGFR) is calculated using the 2020 CKD-EPI creatinine equation. This equation utilizes serum creatinine, sex, and age as parameters. The creatinine assay has traceable calibration to isotope dilution-mass spectrometry. Refer to KDIGO guidelines for clinical interpretation. In patients with unstable renal function, e.g. those with acute kidney injury, the eGFR may not accurately reflect actual GFR. Performed By: #### 2 4323-8 ####[facility] [id number] [place] [address] [place] Glucose [Mass/Vol] 113 mg/dL High 74-99 [facility] Comment on above: Order Comment: Tiarra jackson Type: BLOOD SPECIMENOrdering Facility: [facility] Address: [address] [place] [address] Result Comment: The [place] Diabetes Association (ADA) provides guidance for cutoff values for fasting glucose and random glucose. The ADA defines fasting as no caloric intake for at least 8 hours. Fasting plasma glucose results between 100 to 125 mg/dL indicate increased risk for diabetes (prediabetes). Fasting plasma glucose results greater than or equal to 126 mg/dL meet the criteria for diagnosis of diabetes. In the absence of unequivocal hyperglycemia, results should be confirmed by repeat testing. In a patient with classic symptoms of hyperglycemia or hyperglycemic crisis, random plasma glucose results greater than or equal to 200 mg/dL meet the criteria for diagnosis of diabetes. Reference: Standards of Medical Care in Diabetes 2016, [place] Diabetes Association. Diabetes Care. 2016.39(Suppl 1). Performed By: #### 2 4323-8 ####[facility] MILLTOWNCLIA [id number] [place] [address] [place] Potassium [Moles/Vol] 5.2 mmol/L High 3.7-5.1 [facility] Comment on above: Order Comment: Speci men Type: BLOOD SPECIMENOrdering Facility: [facility] Address: [address] [place] [address] Performed By: #### 2 4323-8 ####[facility] MILLTOWNCLIA [id number] [place] [address] [place] Protein [Mass/Vol] 7.1 g/dL Normal 6.3-8.0 [facility] Comment on above: Order Comment: Speci men Type: BLOOD SPECIMENOrdering Facility: [facility] Address: [address] [place] [address] Performed By: #### 2 4323-8 ####[facility]ENTERNCLIA [id number] [place] [address] [place] Sodium [Moles/Vol] 130 mmol/L Low 136-144 [facility] Comment on above: Order Comment: Speci men Type: BLOOD SPECIMENOrdering Facility: [facility] Address: [address] [place] [address] Performed By: #### 2 4323-8 ####[facility] MILLTOWNCLIA [id number] [place] [address] [place] Urea nitrogen [Mass/Vol] 37 mg/dL High 9-24 [facility] Comment on above: Order Comment: Speci men Type: BLOOD SPECIMENOrdering Facility: [facility] Address: [address] [place] [address] Performed By: #### 2 4323-8 ####[facility] MILLTOWNCLIA [id number] [place] [address] [place] Comprehensive metabolic 2000 panelon 06-15-2024 Albumin [Mass/Vol] 4.5 g/dL Normal 3.9-4.9 [facility] Comment on above: Order Comment: Speci men Type: BLOOD SPECIMENOrdering Facility: [facility] Address: [address] [place] [address] Performed By: #### 2 4323-8 ####[facility] MILLWNCLIA [id number] [place] [address] [place] ALP [Catalytic activity/Vol] 97 U/L Normal 38-113 [facility] Comment on above: Order Comment: Speci men Type: BLOOD SPECIMENOrdering Facility: [facility] Address: [address] [place] [address] Performed By: #### 2 4323-8 ####[facility]STITUTEWNCLIA [id number] [place] [address] [place] ALT [Catalytic activity/Vol] 21 U/L Normal 10-54 [facility] Comment on above: Order Comment: Speci men Type: BLOOD SPECIMENOrdering Facility: [facility] Address: [address] [place] [address] Performed By: #### 2 4323-8 ####[facility]WNCLIA [id number] [place] [address] [place] Anion gap [Moles/Vol] 10 mmol/L Normal 8-15 [facility] Comment on above: Order Comment: Speci men Type: BLOOD SPECIMENOrdering Facility: [facility] Address: [address] [place] [address] Performed By: #### 2 4323-8 ####[facility] MILLTOWNCLIA [id number] [place] [address] [place] AST [Catalytic activity/Vol] 31 U/L Normal 14-40 [facility] Comment on above: Order Comment: Speci men Type: BLOOD SPECIMENOrdering Facility: [facility] Address: [address] [place] [address] Performed By: #### 2 4323-8 ####[facility] HERBERBULLElham [id number] [place] [address] [place] Bilirubin [Mass/Vol] 0.5 mg/dL Normal 0.2-1.3 [facility] Comment on above: Order Comment: Speci men Type: BLOOD SPECIMENOrdering Facility: [facility] Address: [address] [place] [address] Performed By: #### 2 4323-8 ####[facility]STITUTECARLOS [id number] [place] [address] [place] Calcium [Mass/Vol] 9.8 mg/dL Normal 8.5-10.2 [facility] Comment on above: Order Comment: Speci men Type: BLOOD SPECIMENOrdering Facility: [facility] Address: [address] [place] [address] Performed By: #### 2 4323-8 ####[facility] IGNACIONEW TRENTONJENNIFER [id number] [place] [address] [place] Chloride [Moles/Vol] 94 mmol/L Low 98-107 [facility] Comment on above: Order Comment: Speci men Type: BLOOD SPECIMENOrdering Facility: [facility] Address: [address] [place] [address] Performed By: #### 2 4323-8 ####[facility]ENTERNCLIA [id number] [place] [address] [place] CO2 [Moles/Vol] 22 mmol/L Normal 22-30 [facility] Comment on above: Order Comment: Speci men Type: BLOOD SPECIMENOrdering Facility: [facility] Address: [address] [place] [address] Performed By: #### 2 4323-8 ####[facility]ENTERNCLI [id number] [place] [address] [place] Creatinine [Mass/Vol] 1.04 mg/dL Normal 0.73-1.22 [facility] Comment on above: Order Comment: Speci manuel Type: BLOOD SPECIMENOrdering Facility: [facility] Address: [address] [place] [address] Performed By: #### 2 4323-8 ####[facility] [id number] [place] [address] [place] Creatinine and Glomerular filtration rate.predicted panel (S/P/Bld) 73 mL/min/1.73m??? Normal >=60 [facility] Comment on above: Order Comment: Aimeep[facility] Type: BLOOD SPECIMENOrdering Facility: [facility] Address: [address] [place] [address] Result Comment: More mated Glomerular Filtration Rate (eGFR) is calculated using the 2020 CKD-EPI creatinine equation. This equation utilizes serum creatinine, sex, and age as parameters. The creatinine assay has traceable calibration to isotope dilution-mass spectrometry. Refer to KDIGO guidelines for clinical interpretation. In patients with unstable renal function, e.g. those with acute kidney injury, the eGFR may not accurately reflect actual GFR. Performed By: #### 2 4323-8 ####[facility]ITAL[facility] [id number] [place] [address] [place] Glucose [Mass/Vol] 130 mg/dL High 74-99 [facility] Comment on above: Order Comment: Speci men Type: BLOOD SPECIMENOrdering Facility: [facility] Address: [address] [place] [address] Result Comment: The [place] Diabetes Association (ADA) provides guidance for cutoff values for fasting glucose and random glucose. The ADA defines fasting as no caloric intake for at least 8 hours. Fasting plasma glucose results between 100 to 125 mg/dL indicate increased risk for diabetes (prediabetes). Fasting plasma glucose results greater than or equal to 126 mg/dL meet the criteria for diagnosis of diabetes. In the absence of unequivocal hyperglycemia, results should be confirmed by repeat testing. In a patient with classic symptoms of hyperglycemia or hyperglycemic crisis, random plasma glucose results greater than or equal to 200 mg/dL meet the criteria for diagnosis of diabetes. Reference: Standards of Medical Care in Diabetes 2016, [place] Diabetes Association. Diabetes Care. 2016.39(Suppl 1). Performed By: #### 2 4323-8 ####[facility] BRIANNA MILLTOWNCLIA [id number] [place] [address] [place] Potassium [Moles/Vol] 5.3 mmol/L High 3.7-5.1 [facility] Comment on above: Order Comment: Speci men Type: BLOOD SPECIMENOrdering Facility: [facility] Address: [address] [place] [address] Performed By: #### 2 4323-8 ####[facility]ENTERALMALIA [id number] [place] [address] [place] Protein [Mass/Vol] 7.3 g/dL Normal 6.3-8.0 [facility] Comment on above: Order Comment: Aimeei manuel Type: BLOOD SPECIMENOrdering Facility: [facility] Address: [address] [place] [address] Performed By: #### 2 4323-8 ####[facility]ENTERALMALIA [id number] [place] [address] [place] Sodium [Moles/Vol] 126 mmol/L Low 136-144 [facility] Comment on above: Order Comment: Speci men Type: BLOOD SPECIMENOrdering Facility: [facility] Address: [address] [place] [address] Performed By: #### 2 4323-8 ####[facility]STITUTEWNCL[facility] [id number] [place] [address] [place] Urea nitrogen [Mass/Vol] 28 mg/dL High 9-24 [facility] Comment on above: Order Comment: Speci men Type: BLOOD SPECIMENOrdering Facility: [facility] Address: [address] [place] [address] Performed By: #### 2 4323-8 ####[facility] BRIANNA CLARKE [id number] [place] [address] [place] CNPNon 06-13-2024 [facility] SHELTON FOX ([id number]) 1945 M Date Time Provider Department 06/13/24 [facility] During your visit today, we recorded the following information about you: Evon Ross RN 06/13/2024 9:35 AM Addendum Susy- Dr. Pool's office- [employer] Worker [facility]- phoned to let Ruth know, labs and EKG were completed yesterday. The lab results are in epic as outside labs. Susy wants to make sure you look at the Sodium lab- was 128 yesterday. Susy is going to fax the EKG results to your office today. Dr. Pool's fax # [phone] Magali Chairez RN 06/13/2024 10:34 AM Signed See note below. Pt's Ry calling as she got a call from pt's spine surgeon's office regarding pt's low Sodium level. She states with pt's history of CHF she is wondering if they need to do anything or repeat the lab prior to his surgery which is scheduled for next 06/20. She states pt was seen by Ruth yesterday and to call if they had any issues come up prior to surgery. She states pt has not gained any weight and she doesn't notice any swelling except maybe some in his abdomen. She wasn't sure if this was a question for his safety physician or if Ruth can answer questions. Ruth Perez APRN.CNP 06/13/2024 12:18 PM Signed Can you please call the patient's and let her know that I am currently in the middle of printing off all of his test results. I would not be concerned with low sodium and CHF. When sodium is high it will cause you to hold onto water which can make CHF worse. I would like him to try to get some extra sodium in the diet. We can recheck labs on Tuesday or Tuesday? Ruth Perez APRN.Magali Rios LPN 06/13/2024 12:30 PM Signed Patient notified of updates, verbalizes understanding of instructions. stated they will do labs on Tuesday. FREDDY Hays Ashley, APRN.CNP 06/13/2024 2:27 PM Signed Lab order has been placed. Thank you. Ruth Perez APRN.Ruth Rodriguez APRN.CNP 06/15/2024 2:14 PM Signed Can you please call the patient and and let them know that I reviewed his repeat lab results. Sodium is still low and potassium was mildly elevated. However I am concerned that the mild elevated glucose is affecting the sodium level. We can repeat labs on Tuesday however I would prefer that he fast. Ruth Perez APRN.Magali Rios LPN 06/15/2024 2:18 PM Signed Patient notified of results, verbalizes understanding of instructions. FREDDY Hays Ashley, APRN.CNP 06/15/2024 2:21 PM Signed Lab order placed. Preop forms faxed NITA Monique Ashley, APRN.CNP 06/15/2024 2:21 PM Signed Addended by: RUTH PEREZ on: 06/15/2024 02:21 PM Modules accepted: Orders Allergies As of Date: 06/13/2024 Noted Allergy Reaction PLAQUENIL (HYDROXYCHLOROQUINE) 01/20/2024 9 - Itching SPIRONOLACTONE 02/03/2023 14 - Other: See Comments Comments: Dizziness and severe headaches INDOCIN (INDOMETHACIN SODIUM) 05/05/2005 6 - Diarrhea MOBIC (MELOXICAM) 08/16/2014 6 - Diarrhea Date Reviewed: 05/30/2024 Reviewed by: Magali Diaz LPN - Fully Assessed Reason for Visit: Results and Form [Other] Primary Visit Diagnosis:Hyponatremia [E87.1] Other Visit Diagnosis:Hyperkalemia [E87.5] Order(s):COMPREHENSIVE METABOLIC PANEL [SQCMP] Order #: [id number] FUTURE COMPREHENSIVE METABOLIC PANEL [SQCMP] Order #: [id number] FUTURE Prescriptions as of 06/15/2024 - allopurinol (ZYLOPRIM) 100 mg tablet Take 1 tablet by mouth once daily. - pantoprazole DR (PROTONIX) 20 mg tablet Take 1 tablet by mouth daily before breakfast. Take on empty stomach, 1/2 hr before meal. - lisinopril (ZESTRIL) 5 mg tablet Take 5 mg by mouth every afternoon. - acetaminophen (TYLENOL) 325 mg tablet Take by mouth. - simvastatin (ZOCOR) 20 mg tablet Take 1 tablet by mouth once daily. - polyethylene glycol 3350 17 gram packet Take 17 g by mouth once daily. Dissolve dose in 4 - 8 ounces of liquid and take as directed. - aspirin 81 mg chewable tablet Take 81 mg by mouth once daily. Patient reports taking one 81mg chewable tablet by mouth once daily. - Lactobacillus acidophilus (ACIDOPHILUS ORAL) Take 1 capsule by mouth once daily. - vitamin B complex (SUPER B COMPLEX ORAL) Take 1 tablet by mouth once daily. - Magnesium Oxide 500 mg tab Take 1 tablet by mouth once daily. - furosemide (LASIX) 40 mg tablet Take 40 mg by mouth as needed. - carvedilol (COREG) 6.25 mg tablet Take 1 tablet by mouth twice daily. - multivit with minerals/lutein (MULTIVITAMIN 50 PLUS ORAL) Take 1 tablet by mouth once daily. - apixaban (ELIQUIS) 5 mg tab(s) Take 5 mg by mouth twice daily. - Melatonin 5 mg cap Take 5 mg by mouth at bedtime as needed. Meds Comments as of 07/16/2022: Pt reports no med changes in the last (more content not included)... Normal [facility] Hepatitis A AB, Totalon 11-2 HEPATITIS A,TOT Negative Normal Negative [facility] Comment on above: Result Comment: Comm ent: The HAV total antibody assay detects both IgG andIgM but does not differentiate between them. A negativeresult suggests susceptibility to infection. A positiveresult could be due to vaccination, previously resolvedinfection or active infection. Testing for HAV IgM shouldbe performed if active HAV infection is suspected. [facility]corp[facility]ers profiles that will automatically reflex positive HAVtotal antibody results to IgM (e.g., panel #[id number] HAVAntibody w/ Rfx).Performed at: [address] [id number] Director: Emmanuel Lazcano PhD, Phone: [phone] Performed By: #### L 500.2500, L3100.0300, BTSPAT, L3890.6200, L3890.6300, M100.651, L100.0100, L3890.6005 ####[facility] [address] [place], [place], [phone] MRSA/SAID NASAL SCREENon MRSA+SAID SCRN Reason for Exam: PRE OP MRSA MRSA Negative S. AUREUS S. aureus PositiveA Normal [facility] Comment on above: Performed By: #### L 500.2500, L3100.0300, BTSPAT, L3890.6200, L3890.6300, M100.651, L100.0100, L3890.6005 ####[facility] [address] [place], [place], [id number] 12 Lead EKGon 06-12-2024 12 Lead EKG Normal [facility] Basic Metabolic Profile (BMP )on 06-12-2024 BUN/CRE 20.1 RATIO High 10-20 [facility] Comment on above: Performed By: #### L 500.2500, L3100.0300, BTSPAT, L3890.6200, L3890.6300, M100.651, L100.0100, L3890.6005 ####[facility] [address] [place], [address] CA,Total 9.4 mg/dL Normal 8.5-10.1 [facility] Comment on above: Performed By: #### L 500.2500, L3100.0300, BTSPAT, L3890.6200, L3890.6300, M100.651, L100.0100, L3890.6005 ####[facility] [address] [place], [address] Chloride [Moles/Vol] 97 mmol/L Low 98-107 [facility] Comment on above: Performed By: #### L 500.2500, L3100.0300, BTSPAT, L3890.6200, L3890.6300, M100.651, L100.0100, L3890.6005 ####[facility] [address] [place], [address] CO2 [Moles/Vol] 25.0 mmol/L Normal 21.0-32.0 [facility] Comment on above: Performed By: #### L 500.2500, L3100.0300, BTSPAT, L3890.6200, L3890.6300, M100.651, L100.0100, L3890.6005 ####[facility] [address] [place], [address] Creatinine [Mass/Vol] 1.34 mg/dL High 0.70-1.30 [facility] Comment on above: Result Comment: The validity of the calculated GFR GFRAA in patients over70 years has not been determined. Clinical correlation isessential. Performed By: #### L 500.2500, L3100.0300, BTSPAT, L3890.6200, L3890.6300, M100.651, L100.0100, L3890.6005 ####[facility] [address] [place], [address] EST GFR - AA 66 mL/min Normal >60 [facility] Comment on above: Result Comment: Afri can [place] GFR Calc Performed By: #### L 500.2500, L3100.0300, BTSPAT, L3890.6200, L3890.6300, M100.651, L100.0100, L3890.6005 ####[facility] [address] [place], [address] GAP 6 Normal 5-15 [facility] Comment on above: Performed By: #### L 500.2500, L3100.0300, BTSPAT, L3890.6200, L3890.6300, M100.651, L100.0100, L3890.6005 ####[facility] [address] [place], [address] GFR/1.73 sq M.predicted among non-blacks MDRD (S/P/Bld) [Vol rate/Area] 55 mL/min/{1.73_m2} Low >60 [facility] Comment on above: Result Comment: Non- GFR Calc Performed By: #### L 500.2500, L3100.0300, BTSPAT, L3890.6200, L3890.6300, M100.651, L100.0100, L3890.6005 ####[facility] [address] [place], [address] Glucose [Mass/Vol] 101 mg/dL Normal 74-106 [facility] Comment on above: Result Comment: Fast ing Glucose result from 100 to 125 mg/dLsuggests IMPAIRED HOMEOSTASIS per A.D.A. criteria. Performed By: #### L 500.2500, L3100.0300, BTSPAT, L3890.6200, L3890.6300, M100.651, L100.0100, L3890.6005 ####[facility] [address] [place], [address] Potassium [Moles/Vol] 5.0 mmol/L Normal 3.5-5.1 [facility] Comment on above: Performed By: #### L 500.2500, L3100.0300, BTSPAT, L3890.6200, L3890.6300, M100.651, L100.0100, L3890.6005 ####[facility] [address] [place], [address] Sodium [Moles/Vol] 128 mmol/L Low 136-145 [facility] Comment on above: Performed By: #### L 500.2500, L3100.0300, BTSPAT, L3890.6200, L3890.6300, M100.651, L100.0100, L3890.6005 ####[facility] [address] [place], [address] Urea nitrogen [Mass/Vol] 27 mg/dL High 7-18 [facility] Comment on above: Performed By: #### L 500.2500, L3100.0300, BTSPAT, L3890.6200, L3890.6300, M100.651, L100.0100, L3890.6005 ####[facility] [address] [place], [place], [phone] CBC W/Diff, Automatedon 11-2 Absolute Lymph 2.18 X10 3/uL Normal 0.83-4.51 [facility] Comment on above: Performed By: #### L 500.2500, L3100.0300, BTSPAT, L3890.6200, L3890.6300, M100.651, L100.0100, L3890.6005 ####[facility] [address] [place], [place], [phone] Absolute Neut 8.6 X10 3/uL High 2.0-7.7 [facility] Comment on above: Performed By: #### L 500.2500, L3100.0300, BTSPAT, L3890.6200, L3890.6300, M100.651, L100.0100, L3890.6005 ####[facility] [address] [place], [address] Basophils/100 WBC (Bld) 0.4 % Normal 0-1 [facility] Comment on above: Performed By: #### L 500.2500, L3100.0300, BTSPAT, L3890.6200, L3890.6300, M100.651, L100.0100, L3890.6005 ####[facility] [address] [place], [address] Eosinophils/100 WBC (Bld) 1.6 % Normal 0-5 [facility] Comment on above: Performed By: #### L 500.2500, L3100.0300, BTSPAT, L3890.6200, L3890.6300, M100.651, L100.0100, L3890.6005 ####[facility] [address] [place], [address] Erythrocyte distribution width (RBC) [Ratio] 15.3 % High 11.6-14.6 [facility] Comment on above: Performed By: #### L 500.2500, L3100.0300, BTSPAT, L3890.6200, L3890.6300, M100.651, L100.0100, L3890.6005 ####[facility] [address] [place], [address] Hematocrit (Bld) [Volume fraction] 39.2 % Low 40-54 [facility] Comment on above: Performed By: #### L 500.2500, L3100.0300, BTSPAT, L3890.6200, L3890.6300, M100.651, L100.0100, L3890.6005 ####[facility] [address] [place], [address] Hemoglobin (Bld) [Mass/Vol] 13.4 g/dL Normal 13.0-16.5 [facility] Comment on above: Performed By: #### L 500.2500, L3100.0300, BTSPAT, L3890.6200, L3890.6300, M100.651, L100.0100, L3890.6005 ####[facility] [address] [place], [address] IG% 1.200 High 0.0-0.9 [facility] Comment on above: Result Comment: IG% - Immature Granulocytes (promyelocytes, myelocytes andmetamyelocytes) > 1% indicates that a LEFT SHIFT is Present. Performed By: #### L 500.2500, L3100.0300, BTSPAT, L3890.6200, L3890.6300, M100.651, L100.0100, L3890.6005 ####[facility] [address] [place], [address] Lymphocytes/100 WBC (Bld) 18.0 % Low 19-41 [facility] Comment on above: Performed By: #### L 500.2500, L3100.0300, BTSPAT, L3890.6200, L3890.6300, M100.651, L100.0100, L3890.6005 ####[facility] [address] [place], [address] MCH (RBC) [Entitic mass] 30.9 pg Normal 27.0-32.0 [facility] Comment on above: Performed By: #### L 500.2500, L3100.0300, BTSPAT, L3890.6200, L3890.6300, M100.651, L100.0100, L3890.6005 ####[facility] [address] [place], [address] MCHC (RBC) [Mass/Vol] 34.2 g/dL Normal 32-36 [facility] Comment on above: Performed By: #### L 500.2500, L3100.0300, BTSPAT, L3890.6200, L3890.6300, M100.651, L100.0100, L3890.6005 ####[facility] [address] [place], [address] MCV (RBC) [Entitic vol] 90.3 fL Normal 80-94 [facility] Comment on above: Performed By: #### L 500.2500, L3100.0300, BTSPAT, L3890.6200, L3890.6300, M100.651, L100.0100, L3890.6005 ####[facility] [address] [place], [address] Monocytes/100 WBC (Bld) 7.6 % Normal 0-10 [facility] Comment on above: Performed By: #### L 500.2500, L3100.0300, BTSPAT, L3890.6200, L3890.6300, M100.651, L100.0100, L3890.6005 ####[facility] [address] [place], [address] Neutrophils/100 WBC (Bld) 71.2 % High 47-70 [facility] Comment on above: Performed By: #### L 500.2500, L3100.0300, BTSPAT, L3890.6200, L3890.6300, M100.651, L100.0100, L3890.6005 ####[facility] [address] [place], [address] Nucleated RBC (Bld) [#/Vol] 0 10*3/uL Normal 0-5 [facility] Comment on above: Performed By: #### L 500.2500, L3100.0300, BTSPAT, L3890.6200, L3890.6300, M100.651, L100.0100, L3890.6005 ####[facility] [address] [place], [address] Platelet mean volume (Bld) [Entitic vol] 9.6 fL Normal 6.2-12.0 [facility] Comment on above: Performed By: #### L 500.2500, L3100.0300, BTSPAT, L3890.6200, L3890.6300, M100.651, L100.0100, L3890.6005 ####[facility] [address] [place], [address] Platelets (Bld) [#/Vol] 247 10*3/uL Normal 150-450 [facility] Comment on above: Performed By: #### L 500.2500, L3100.0300, BTSPAT, L3890.6200, L3890.6300, M100.651, L100.0100, L3890.6005 ####[facility] [address] [place], [address] RBC (Bld) [#/Vol] 4.34 10*6/uL Low 4.6-6.2 [facility] Comment on above: Performed By: #### L 500.2500, L3100.0300, BTSPAT, L3890.6200, L3890.6300, M100.651, L100.0100, L3890.6005 ####[facility] [address] [place], [address] RDW SD 49.8 fl High 35.1-43.9 [facility] Comment on above: Performed By: #### L 500.2500, L3100.0300, BTSPAT, L3890.6200, L3890.6300, M100.651, L100.0100, L3890.6005 ####[facility] [address] [place], [address] WBC (Bld) [#/Vol] 12.1 10*3/uL High 4.4-11.0 [facility] Comment on above: Performed By: #### L 500.2500, L3100.0300, BTSPAT, L3890.6200, L3890.6300, M100.651, L100.0100, L3890.6005 ####[facility] [address] [place], [address] CNOVon 06-12-2024 [facility] ----- SHELTON FOX ([id number]) 1945 M Date Time Provider Department 06/12/24 10:00 AM RUTH PEREZ [facility] During your visit today, we recorded the following information about you: Pulse Respiration Blood pressure 72/minute 20/minute 120/60 Ruth Perez APRN.GANG HEMSTITCHING MACHINE OPERATOR 06/12/2024 1:39 PM Signed This is a 78 year old male who presents today with: Patient presents with: Pre-Op Exam HISTORY OF PRESENT ILLNESS: Shelton Fox is a 78 year old male. Patient presents with: Pre-Op Exam Here in the office for preop clearance. Will be having lumbar laminectomy L4-L5, with Dr. Pool at [facility] On June 20, 2024. Will be getting labs and EKG at [facility] today. Pain has been severe, pain radiating into the legs, worse on the right. Feet will go numb. Seeing Dr. Patterson at pain management today to help with medication management. Difficulty getting comfortable. Taking Perocet 5/325 mg. Finished prednisone. Taking Tylenol 1000 mg every 8 hours. Muscle relaxant was not helpful. GERD: Has had a EGD completed in the past. Taking Protonix 20 mg daily. A-fib: Following with cardiology, Dr. Hanna at [facility]. Taking Eliquis 5 mg twice daily. Surgeon recommending off Eliquis 4 days prior and 3 days post op. Needs cardiology approval. HTN: Taking Coreg 6.25 mg twice daily and lisinopril 5 mg daily. Denies chest pain, palpitations, dizziness, or edema. Not currently checking blood pressure at home. Edema: Taking Lasix 40 mg daily as needed. Gout: Taking allopurinol 100 mg twice daily. Lipid/CAD: Taking Zocor 20 mg daily and Plavix 75 mg daily. History of RATNA, has had infusions in the past. PAST MEDICAL HISTORY: PAST MEDICAL HISTORY Diagnosis Date Allergic rhinitis, cause unspecified Arthritis Atherosclerotic heart disease of [place] coronary artery without angina pectoris Atrial fibrillation (HCC) Avascular necrosis (HCC) Benign neoplasm of colon Bilateral extracranial carotid artery stenosis CAD (coronary artery disease) Cardiomyopathy (HCC) Chronic back pain Diverticulosis of colon (without [...] ACETBLR/PROX FEM PROSTC AGRFT/ALGRFT 04/2012 Dr. Wood> [facility] ARTHRP KNE CONDYLEANDPLATU MEDIALANDLAT COMPARTMENTS Right COLONOSCOPY FLX DX W/COLLJ SPEC WHEN PFRMD 05/[address] Mejia COLONOSCOPY SCREENING 05/20/2023 COLONOSCOPY W/BIOPSY SINGLE/MULTIPLE 08/24/2006 EGD 12/01/2020 ESOPHAGOGASTRODUODENOSCOP Y TRANSORAL DIAGNOSTIC 05/2023 EYE SURGERY HX JOINT REPLACEMENT HX LEFT HEART CATH,PERCUTANEOUS 10/06/2022 OPEN REPAIR OF ROTATOR CUFF ACUTE 10/03/2008 Rotator cuff repair-right PAST SURGICAL HISTORY OF right knee scope PAST SURGICAL HISTORY OF cataract both eyes PAST SURGICAL HISTORY OF N/A 12/20/2022 EPS with Ablation, [facility] PAST SURGICAL HISTORY OF Right 12/26/2023 Endarterctomy carotid TONSILLECTOMY HX TONSILLECTOMY PRIMARY/SECONDARY Tonsillectomy and adnoids ALLERGIES Plaquenil [Hydroxychloroquine], Spironolactone, Indocin [Indomethacin Sodium], and Mobic [Meloxicam] MEDICATIONS Current Outpatient Medications Medication Sig allopurinol (ZYLOPRIM) 100 mg tablet Take 1 tablet by mouth once daily. pantoprazole DR (PROTONIX) 20 mg tablet Take 1 tablet by mouth daily before breakfast. Take on empty stomach, 1/2 hr before meal. lisinopril (ZESTRIL) 5 mg tablet Take 5 mg by mouth every afternoon. acetaminophen (TYLENOL) 325 mg tablet Take by mouth. simvastatin (ZOCOR) 20 mg tablet Take 1 tablet by mouth once daily. polyethylene glycol 3350 17 gram packet Take 17 g by mouth once daily. Dissolve dose in 4 - 8 ounces of liquid and take as directed. aspirin 81 mg chewable tablet Take 81 mg by mouth once daily. Patient reports taking one 81mg chewable tablet by mouth once daily. Lactobacillus acidophilus (ACIDOPHILUS ORAL) Take 1 capsule by mouth once daily. vitamin B complex (SUPER B COMPLEX ORAL) Take 1 tablet by mouth once daily. Magnesium Oxide 500 mg tab Take 1 tablet by mouth once daily. f (more content not included)... Normal [facility] HIV - WCHon 06-12-2024 HIV Non-Reactive Normal Nonreactive [facility] Comment on above: Order Comment: Reaso n for Exam: PAT Performed By: #### L 500.2500, L3100.0300, BTSPAT, L3890.6200, L3890.6300, M100.651, L100.0100, L3890.6005 ####[facility] [address] [place], [place], [address] Hepatitis B Surface Antibody on 06-12-2024 HEP B Surf Ab Non-Reactive Normal [facility] Comment on above: Order Comment: Reaso n for Exam: PAT Result Comment: Non Reactive: Inconsistent with immunity less than <10 mIU/mL Reactive: Consistent with immunity greater than or equal to 10 mIU/mL Performed By: #### L 500.2500, L3100.0300, BTSPAT, L3890.6200, L3890.6300, M100.651, L100.0100, L3890.6005 ####[facility] [address] [place], [address] Hepatitis C Antibodyon 06-12 Hepatitis C AB Non-Reactive Normal Nonreactive [facility] Comment on above: Order Comment: Reaso n for Exam: PAT Result Comment: Non Reactive: < 0.8 Equivocal: >/= 0.8 to < 1.0 Reactive: >/= 1.0The [facility] requires that a reactive/equivocal HCV antibodyresult be sent out for confirmation. HCV Quant by PCRtesting. Performed By: #### L 500.2500, L3100.0300, BTSPAT, L3890.6200, L3890.6300, M100.651, L100.0100, L3890.6005 ####[facility] [address] [place], [address] Magnesiumon 06-12-2024 Magnesium [Mass/Vol] 3.4 mg/dL High 1.6-2.6 [facility] Comment on above: Performed By: #### L 501.5200 ####[facility] [address] [place], [address] Type AND Screen - PAT ONLYon 06-12-2024 Ab SCREEN GEL Negative Normal [facility] Comment on above: Order Comment: Reaso n for Laboratory Test [id number] LAMINECTOMY Performed By: #### L 500.2500, L3100.0300, BTSPAT, L3890.6200, L3890.6300, M100.651, L100.0100, L3890.6005 ####[facility] [address] [place], [address] CNPNon 06-07-2024 CNPN Telephone ([facility]) ----- SHELTON FOX ([id number]) 1945 M Date Time Provider Department 06/07/24 FEDERICO VIGIL During your visit today, we recorded the following information about you: Yasmeen Oliveros MA 06/07/2024 2:23 PM Addendum Type of form: Medical Clearance for surgery from [facility] for Lumbar Laminectomy (L4-L5) on 06/20/24. Form received via fax When form is completed, Fax form to [phone] Form has been forwarded to Physician Desk: YON Munoz Mark D, MD 06/08/2024 5:10 PM Signed He needs appt in the next few days to complete this. His last routine check was in January. Surgery scheduled for Jun 20. MD Emily Kowalski Barbara, LPN 06/11/2024 8:59 AM Signed Pt has a pre - op appt with Lizette on 06/12/24 Magali Diaz LPN Allergies As of Date: 06/07/2024 Noted Allergy Reaction PLAQUENIL (HYDROXYCHLOROQUINE) 01/20/2024 9 - Itching SPIRONOLACTONE 02/03/2023 14 - Other: See Comments Comments: Dizziness and severe headaches INDOCIN (INDOMETHACIN SODIUM) 05/05/2005 6 - Diarrhea MOBIC (MELOXICAM) 08/16/2014 6 - Diarrhea Date Reviewed: 05/30/2024 Reviewed by: Magali Diaz LPN - Fully Assessed Reason for Visit: Forms [913] Cmt: Medical Clearance Prescriptions as of 06/11/2024 - allopurinol (ZYLOPRIM) 100 mg tablet Take 1 tablet by mouth once daily. - pantoprazole DR (PROTONIX) 20 mg tablet Take 1 tablet by mouth daily before breakfast. Take on empty stomach, 1/2 hr before meal. - lisinopril (ZESTRIL) 5 mg tablet Take 5 mg by mouth every afternoon. - acetaminophen (TYLENOL) 325 mg tablet Take by mouth. - simvastatin (ZOCOR) 20 mg tablet Take 1 tablet by mouth once daily. - polyethylene glycol 3350 17 gram packet Take 17 g by mouth once daily. Dissolve dose in 4 - 8 ounces of liquid and take as directed. - aspirin 81 mg chewable tablet Take 81 mg by mouth once daily. Patient reports taking one 81mg chewable tablet by mouth once daily. - Lactobacillus acidophilus (ACIDOPHILUS ORAL) Take 1 capsule by mouth once daily. - vitamin B complex (SUPER B COMPLEX ORAL) Take 1 tablet by mouth once daily. - Magnesium Oxide 500 mg tab Take 1 tablet by mouth once daily. - furosemide (LASIX) 40 mg tablet Take 40 mg by mouth as needed. - carvedilol (COREG) 6.25 mg tablet Take 1 tablet by mouth twice daily. - multivit with minerals/lutein (MULTIVITAMIN 50 PLUS ORAL) Take 1 tablet by mouth once daily. - apixaban (ELIQUIS) 5 mg tab(s) Take 5 mg by mouth twice daily. - Melatonin 5 mg cap Take 5 mg by mouth at bedtime as needed. Meds Comments as of 07/16/2022: Pt reports no med changes in the last month 07/16/2022TP Problem List As Of Date 06/07/2024 Noted Resolved Hyperlipidemia [E78.5] 05/05/2005 Hypertension [I10] 05/05/2005 GOUT NOS [M10.9] ALLERGIC RHINITIS NOS [J30.9] HEPATOMEGALY [R16.0] 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] 08/24/2006 DIVERTICULOSIS OF COLON W/O BLEED [K57.30] 08/24/2006 BENIGN NEOPLASM LG BOWEL [D12.6] 08/24/2006 Pain in limb [M79.609] 10/09/2007 10/30/2018 Disturbance of skin sensation [R20.9] 10/09/2007 10/30/2018 ANKLE ENTHESOPATHY NEC [M77.50] 07/05/2008 CONGENITAL PES PLANUS [Q66.50] 07/05/2008 Symptomatic carotid artery stenosis, right [I65*01/17/2009 Avascular necrosis (HCC) [M87.00] 08/24/2010 01/17/2023 Shoulder joint replacement 09/28/2010 Shoulder joint replacement by other means [Z96.*10/01/2010 Other physical therapy [XQI5247] 10/01/2010 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] 06/28/2011 Gastroesophageal reflux disease [K21.9] 04/27/2017 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 PAD (peripheral artery disease) (HCC) [I73.9] 05/01/2019 Atrial fibrillation (HCC) [I48.91] 08/30/2022 Ischemic cardiomyopathy [I25.5] Status post catheter ablation of atrial fibrill*12/21/2022 Paroxysmal atrial fibrillation (HCC) [I48.0] 03/28/2023 Status post ablation of atrial flutter [Z98.890*03/28/2023 Dyspnea [R06.00] 03/29/2023 Coronary artery disease involving [place] gates*05/19/2023 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] 02/03/2023 Diagnosed: 05/19/2023 History of arthritis [Z87.39] 05/19/2023 Former smoker [Z87.891] 05/19/2023 Anemia [D64.9] 05/19/2023 Dysphagia [R13.10] 05/20/2023 History of colonic polyps [Z86.0100] 05/20/2023 Cardiomyopathy, unspecified type (HCC) [I42.9] 06/22/2023 Preop examination [Z01.818] 12/19/2023 S/P carotid endarterectomy [Z98.890] 12/26/2023 Encounter Status:Closed by MAGALI DIAZ on 06/11/24 Normal [facility] L/S Spine Min 4 Viewson 05-19 L/S Spine Min 4 Views Normal [facility] Orthopedic Visit Reporton Orthopedic Visit Report Normal [facility] CNOVon 05-30-2024 CNOV Office Visit ([facility] ) ----- SHELTON FOX ([id number]) 1945 M Date Time Provider Department 05/30/24 2:40 PM RUTH PEREZ During your visit today, we recorded the following information about you: Pulse Respiration Blood pressure Weight 75/minute 16/minute 102/68 80.7 kg Ruth Perez APRN.GANG HEMSTITCHING MACHINE OPERATOR 05/30/2024 4:35 PM Signed This is a 78 year old male who presents today with: Patient presents with: Acute Visit: Low back pain HISTORY OF PRESENT ILLNESS: Shelton Fox is a 78 year old male. Patient presents with: Acute Visit: Low back pain Here in the office for back pain. Refers that he was at the gym on Tuesday did a twisting motion and developed a sharp pain. Had MRI lumbar yesterday for pain management, has had injections in the past. Follow up next week. Taking Tylenol as needed which is not helpful. Low back pain. No numbness or tinging in the legs. No loss of bowel/bladder or saddle anesthesia. PAST MEDICAL HISTORY: PAST MEDICAL HISTORY Diagnosis Date Allergic rhinitis, cause unspecified Arthritis Atherosclerotic heart disease of [place] coronary artery without angina pectoris Atrial fibrillation (HCC) Avascular necrosis (HCC) Benign neoplasm of colon Bilateral extracranial carotid artery stenosis CAD (coronary artery disease) Cardiomyopathy (HCC) Chronic back pain Diverticulosis of colon (without [...] ACETBLR/PROX FEM PROSTC AGRFT/ALGRFT 04/2012 Dr. Wood> [facility] ARTHRP KNE CONDYLEANDPLATU MEDIALANDLAT COMPARTMENTS Right COLONOSCOPY FLX DX W/COLLJ SPEC WHEN PFRMD 05/[address] Mejia COLONOSCOPY SCREENING 05/20/2023 COLONOSCOPY W/BIOPSY SINGLE/MULTIPLE 08/24/2006 EGD 12/01/2020 ESOPHAGOGASTRODUODENOSCOP Y TRANSORAL DIAGNOSTIC 05/2023 EYE SURGERY HX JOINT REPLACEMENT HX LEFT HEART CATH,PERCUTANEOUS 10/06/2022 OPEN REPAIR OF ROTATOR CUFF ACUTE 10/03/2008 Rotator cuff repair-right PAST SURGICAL HISTORY OF right knee scope PAST SURGICAL HISTORY OF cataract both eyes PAST SURGICAL HISTORY OF N/A 12/20/2022 EPS with Ablation, [facility] PAST SURGICAL HISTORY OF Right 12/26/2023 Endarterctomy carotid TONSILLECTOMY HX TONSILLECTOMY PRIMARY/SECONDARY Tonsillectomy and adnoids ALLERGIES Plaquenil [Hydroxychloroquine], Spironolactone, Indocin [Indomethacin Sodium], and Mobic [Meloxicam] MEDICATIONS Current Outpatient Medications Medication Sig doxycycline (VIBRA-TABS) 100 mg tablet Take 1 tablet by mouth two times a day for 10 days. benzonatate (TESSALON PERLES) 100 mg capsule Take 1 capsule by mouth three times a day as needed for up to 10 days. allopurinol (ZYLOPRIM) 100 mg tablet Take 1 tablet by mouth once daily. pantoprazole DR (PROTONIX) 20 mg tablet Take 1 tablet by mouth daily before breakfast. Take on empty stomach, 1/2 hr before meal. lisinopril (ZESTRIL) 5 mg tablet Take 5 mg by mouth every afternoon. acetaminophen (TYLENOL) 325 mg tablet Take by mouth. simvastatin (ZOCOR) 20 mg tablet Take 1 tablet by mouth once daily. polyethylene glycol 3350 17 gram packet Take 17 g by mouth once daily. Dissolve dose in 4 - 8 ounces of liquid and take as directed. aspirin 81 mg chewable tablet Take 81 mg by mouth once daily. Patient reports taking one 81mg chewable tablet by mouth once daily. Lactobacillus acidophilus (ACIDOPHILUS ORAL) Take 1 capsule by mouth once daily. vitamin B complex (SUPER B COMPLEX ORAL) Take 1 tablet by mouth once daily. Magnesium Oxide 500 mg tab Take 1 tablet by mouth once daily. furosemide (LASIX) 40 mg tablet Take 40 mg by mouth as needed. carvedilol (COREG) 6.25 mg tablet Take 1 tablet by mouth twice daily. multivit with minerals/lutein (MULTIVITAMIN 50 PLUS ORAL) Take 1 tablet by mouth once daily. apixaban (ELIQUIS) 5 mg tab(s) Take 5 mg by mouth twice daily. Melatonin 5 mg cap Take 5 mg by mouth at bedtime as needed. No current facility-administered medications for this visit. FAMILY HISTORY Problem Relation Age of Onset Cancer Mother KIDNEY Coronary Artery Dis (more content not included)... Normal [facility] Spine Lumbar (Routine)on Spine Lumbar (Routine) Normal [facility] CNOVon 05-24-2024 [facility] SHELTON FOX Page ([id number]) 1945 M Date Time Provider Department 05/24/24 9:20 AM [facility] During your visit today, we recorded the following information about you: Temperature Pulse Respiration Blood pressure 97.6 degrees 76/minute 16/minute 128/72 Weight 79.6 kg Ruth Perez APRN.CNP 05/24/2024 9:13 AM Addendum Start Doxycyline, take with food, hold vitamins while taking antibiotic Start prednisone 20 mg daily for the next 5 days May use Tessalon Perles as needed for cough Stay well hydrated Follow up as needed. Ruth Perez APRN.CNP 05/24/2024 9:54 AM Signed This is a 78 year old male who presents today with: Patient presents with: Acute Visit: lingering cough and cold HISTORY OF PRESENT ILLNESS: Shelton Fox is a 78 year old male. Patient presents with: Acute Visit: lingering cough and cold Here in the office for cough. Symptoms started about 3 weeks ago. Initially had fever, sore throat, and cough. Has been using OTC cold and cough medications. Symptoms started to improve then worsening with sinus congestion, head pressure, and cough. Cough is dry. No SOB or difficulty breathing. PAST MEDICAL HISTORY: PAST MEDICAL HISTORY Diagnosis Date Allergic rhinitis, cause unspecified Arthritis Atherosclerotic heart disease of [place] coronary artery without angina pectoris Atrial fibrillation (HCC) Avascular necrosis (HCC) Benign neoplasm of colon Bilateral extracranial carotid artery stenosis CAD (coronary artery disease) Cardiomyopathy (HCC) Chronic back pain Diverticulosis of colon (without [...] ACETBLR/PROX FEM PROSTC AGRFT/ALGRFT 04/2012 Dr. Wood> [facility]. ARTHRP KNE CONDYLEANDPLATU MEDIALANDLAT COMPARTMENTS Right COLONOSCOPY FLX DX W/COLLJ SPEC WHEN PFRMD 05/[address] Mejia COLONOSCOPY SCREENING 05/20/2023 COLONOSCOPY W/BIOPSY SINGLE/MULTIPLE 08/24/2006 EGD 12/01/2020 ESOPHAGOGASTRODUODENOSCOP Y TRANSORAL DIAGNOSTIC 05/2023 EYE SURGERY HX JOINT REPLACEMENT HX LEFT HEART CATH,PERCUTANEOUS 10/06/2022 OPEN REPAIR OF ROTATOR CUFF ACUTE 10/03/2008 Rotator cuff repair-right PAST SURGICAL HISTORY OF right knee scope PAST SURGICAL HISTORY OF cataract both eyes PAST SURGICAL HISTORY OF N/A 12/20/2022 EPS with Ablation, [facility] PAST SURGICAL HISTORY OF Right 12/26/2023 Endarterctomy carotid TONSILLECTOMY HX TONSILLECTOMY PRIMARY/SECONDARY Tonsillectomy and adnoids ALLERGIES Plaquenil [Hydroxychloroquine], Spironolactone, Indocin [Indomethacin Sodium], and Mobic [Meloxicam] MEDICATIONS Current Outpatient Medications Medication Sig allopurinol (ZYLOPRIM) 100 mg tablet Take 1 tablet by mouth once daily. pantoprazole DR (PROTONIX) 20 mg tablet Take 1 tablet by mouth daily before breakfast. Take on empty stomach, 1/2 hr before meal. lisinopril (ZESTRIL) 5 mg tablet Take 5 mg by mouth every afternoon. acetaminophen (TYLENOL) 325 mg tablet Take by mouth. simvastatin (ZOCOR) 20 mg tablet Take 1 tablet by mouth once daily. polyethylene glycol 3350 17 gram packet Take 17 g by mouth once daily. Dissolve dose in 4 - 8 ounces of liquid and take as directed. aspirin 81 mg chewable tablet Take 81 mg by mouth once daily. Patient reports taking one 81mg chewable tablet by mouth once daily. Lactobacillus acidophilus (ACIDOPHILUS ORAL) Take 1 capsule by mouth once daily. vitamin B complex (SUPER B COMPLEX ORAL) Take 1 tablet by mouth once daily. Magnesium Oxide 500 mg tab Take 1 tablet by mouth once daily. furosemide (LASIX) 40 mg tablet Take 40 mg by mouth as needed. carvedilol (COREG) 6.25 mg tablet Take 1 tablet by mouth twice daily. multivit with minerals/lutein (MULTIVITAMIN 50 PLUS ORAL) Take 1 tablet by mouth once daily. apixaban (ELIQUIS) 5 mg tab(s) Take 5 mg by mouth twice daily. Melatonin 5 mg cap Take 5 mg by mouth at bedtime as needed. No current facility-administered medications for this visit. FAMILY HISTORY Problem Relation Age of Onset Cancer Mother (more content not included)... Normal [facility] CBC W Auto Differential pane l (Bld)on 04-23-2024 Basophils (Bld) [#/Vol] 10*3/uL Normal <0.11 [facility] Comment on above: Order Comment: Speci men Type: BLOOD SPECIMENOrdering Facility: [facility] Address: [address] [place] [address] Performed By: #### 5 7021-8 ####[facility] [id number] [place] [address] [place] Basophils/100 WBC (Bld) 0.2 % Normal [facility] Comment on above: Order Comment: Speci men Type: BLOOD SPECIMENOrdering Facility: [facility] Address: [address] [place] [address] Performed By: #### 5 7021-8 ####[facility] [id number] [place] [address] [place] Differential cell count method Nom (Bld) Auto Normal [facility] Comment on above: Order Comment: Speci men Type: BLOOD SPECIMENOrdering Facility: [facility] Address: [address] [place] [address] Performed By: #### 5 7021-8 ####[facility] [id number] [place] [address] [place] Eosinophils (Bld) [#/Vol] 0.07 10*3/uL Normal <0.46 [facility] Comment on above: Order Comment: Speci men Type: BLOOD SPECIMENOrdering Facility: [facility] Address: [address] [place] [address] Performed By: #### 5 7021-8 ####[facility] [id number] [place] [address] [place] Eosinophils/100 WBC (Bld) 0.8 % Normal [facility] Comment on above: Order Comment: Speci men Type: BLOOD SPECIMENOrdering Facility: [facility] Address: [address] [place] [address] Performed By: #### 5 7021-8 ####[facility] [id number] [place] [address] [place] Erythrocyte distribution width (RBC) [Ratio] 15.1 % High 11.5-15.0 [facility] Comment on above: Order Comment: Speci men Type: BLOOD SPECIMENOrdering Facility: [facility] Address: [address] [place] [address] Performed By: #### 5 7021-8 ####[facility] [id number] [place] [address] [place] Hematocrit (Bld) [Volume fraction] 35.9 % Low 39.0-51.0 [facility] Comment on above: Order Comment: Speci men Type: BLOOD SPECIMENOrdering Facility: [facility] Address: [address] [place] [address] Performed By: #### 5 7021-8 ####[facility] IGNACIONEW TRENTONJENNIFER [id number] [place] [address] [place] Hemoglobin (Bld) [Mass/Vol] 12.0 g/dL Low 13.0-17.0 [facility] Comment on above: Order Comment: Speci men Type: BLOOD SPECIMENOrdering Facility: [facility] Address: [address] [place] [address] Performed By: #### 5 7021-8 ####[facility] [id number] [place] [address] [place] Immature granulocytes (Bld) [#/Vol] 0.06 10*3/uL Normal <0.10 [facility] Comment on above: Order Comment: Speci men Type: BLOOD SPECIMENOrdering Facility: [facility] Address: [address] [place] [address] Performed By: #### 5 7021-8 ####[facility] [id number] [place] [address] [place] Immature granulocytes/100 WBC (Bld) 0.7 % Normal [facility] Comment on above: Order Comment: Speci men Type: BLOOD SPECIMENOrdering Facility: [facility] Address: [address] [place] [address] Performed By: #### 5 7021-8 ####[facility]ITAL[facility] [id number] [place] [address] [place] Lymphocytes (Bld) [#/Vol] 2.70 10*3/uL Normal 1.00-4.00 [facility] Comment on above: Order Comment: Speci men Type: BLOOD SPECIMENOrdering Facility: [facility] Address: [address] [place] [address] Performed By: #### 5 7021-8 ####[facility] HOSPITALYARELIS [id number] [place] [address] [place] Lymphocytes/100 WBC (Bld) 30.9 % Normal [facility] Comment on above: Order Comment: Speci men Type: BLOOD SPECIMENOrdering Facility: [facility] Address: [address] [place] [address] Performed By: #### 5 7021-8 ####[facility] [id number] [place] [address] [place] MCH (RBC) [Entitic mass] 30.1 pg Normal 26.0-34.0 [facility] Comment on above: Order Comment: Speci men Type: BLOOD SPECIMENOrdering Facility: [facility] Address: [address] [place] [address] Performed By: #### 5 7021-8 ####[facility] [id number] [place] [address] [place] MCHC (RBC) [Mass/Vol] 33.4 g/dL Normal 30.5-36.0 [facility] Comment on above: Order Comment: Speci men Type: BLOOD SPECIMENOrdering Facility: [facility] Address: [address] [place] [address] Performed By: #### 5 7021-8 ####[facility]ITALA [id number] [place] [address] [place] MCV (RBC) [Entitic vol] 90.0 fL Normal 80.0-100.0 [facility] Comment on above: Order Comment: Speci men Type: BLOOD SPECIMENOrdering Facility: [facility] Address: [address] [place] [address] Performed By: #### 5 7021-8 ####[facility]ENTERNCLI [id number] [place] [address] [place] Monocytes (Bld) [#/Vol] 0.68 10*3/uL Normal <0.87 [facility] Comment on above: Order Comment: Speci men Type: BLOOD SPECIMENOrdering Facility: [facility] Address: [address] [place] [address] Performed By: #### 5 7021-8 ####[facility] [id number] [place] [address] [place] Monocytes/100 WBC (Bld) 7.8 % Normal [facility] Comment on above: Order Comment: Speci men Type: BLOOD SPECIMENOrdering Facility: [facility] Address: [address] [place] [address] Performed By: #### 5 7021-8 ####[facility] [id number] [place] [address] [place] Neutrophils (Bld) [#/Vol] 5.21 10*3/uL Normal 1.45-7.50 [facility] Comment on above: Order Comment: Speci men Type: BLOOD SPECIMENOrdering Facility: [facility] Address: [address] [place] [address] Performed By: #### 5 7021-8 ####[facility] [id number] [place] [address] [place] Neutrophils/100 WBC (Bld) 59.6 % Normal [facility] Comment on above: Order Comment: Speci men Type: BLOOD SPECIMENOrdering Facility: [facility] Address: [address] [place] [address] Performed By: #### 5 7021-8 ####[facility] [id number] [place] [address] [place] Nucleated RBC (Bld) [#/Vol] 10*3/uL Normal <0.01 [facility] Comment on above: Order Comment: Speci men Type: BLOOD SPECIMENOrdering Facility: [facility] Address: [address] [place] [address] Performed By: #### 5 7021-8 ####[facility] TRICIA [id number] [place] [address] [place] Nucleated RBC/100 WBC (Bld) [Ratio] 0.0 /100 WBC Normal [facility] Comment on above: Order Comment: Speci men Type: BLOOD SPECIMENOrdering Facility: [facility] Address: [address] [place] [address] Performed By: #### 5 7021-8 ####[facility] IGNACIONEW TRENTONJENNIFER [id number] [place] [address] [place] Platelet mean volume (Bld) [Entitic vol] 9.5 fL Normal 9.0-12.7 [facility] Comment on above: Order Comment: Speci men Type: BLOOD SPECIMENOrdering Facility: [facility] Address: [address] [place] [address] Performed By: #### 5 7021-8 ####[facility]ENTEROMARIA [id number] [place] [address] [place] Platelets (Bld) [#/Vol] 203 10*3/uL Normal 150-400 [facility] Comment on above: Order Comment: Speci men Type: BLOOD SPECIMENOrdering Facility: [facility] Address: [address] [place] [address] Performed By: #### 5 7021-8 ####[facility] CENTERALMALIA [id number] [place] [address] [place] RBC (Bld) [#/Vol] 3.99 10*6/uL Low 4.20-6.00 [facility] Comment on above: Order Comment: Speci men Type: BLOOD SPECIMENOrdering Facility: [facility] Address: [address] [place] [address] Performed By: #### 5 7021-8 ####[facility] IGNACIOTOWNCLIA [id number] [place] [address] [place] WBC (Bld) [#/Vol] 8.74 10*3/uL Normal 3.70-11.00 [facility] Comment on above: Order Comment: Speci men Type: BLOOD SPECIMENOrdering Facility: [facility] Address: [facility] [place] [address] Performed By: #### 5 7021-8 ####[facility] IGNACIONEW TRENTONNCLIA [id number] [place] [address] [place] CNOVSPon 04-23-2024 CNOVSP Visit ([facility]) Office ([facility]) ----- SHELTON FOX ([id number]) 1945 M Date Time Provider Department 04/23/24 8:30 AM DAVID LUNDBERG During your visit today, we recorded the following information about you: Temperature Pulse Blood pressure Weight 97.5 degrees 68/minute 159/70 80.1 kg David Lundberg 04/23/2024 2:20 PM Signed Hematology Progress Note Shelton Fox 1945 Encounter date: 04/23/2024 Cancer Staging No matching staging information was found for the patient. 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 Presents today for evaulation of anemia. Recent H labs from 08/15/23 demonstrated Hgb 10.1. He was previously on PO ferrous sulfate daily for mild RATNA. This caused him fairly severe constipation, abd pain and impaction resulting in a hospital visit. He has had recent GI work up. Colonoscopy 05/20/23 without evidence of ulceration, bleeding, however noted difficult exam due to patient discomfort and tortuous colon. EGD 05/20/23:Squamous epithelium with glycogenic acanthosis. Ongoing anemia. More fatigue in the last month. Feels like he has now energy to do anything. Tries to works out regularly. Active golf, bowling. Track the Bet Tuesday - Tuesday but recently feels he is unable to perform activities he was able to do just a few months ago. Appetite decrease, no unintentional weight loss. Does not follow any particular dietary restrictions. One cup of coffee per day/ limits himself to two alcoholic drinks total per weekend. No illicit drug use. Diffuse itching since RSV vaccinaction in injection in June, primarily on arms and legs. Has tried several lotions, antihistamines, otc meds without any noticeable changes. Denies recent illnesses, infections, fever, chills, NS. PALMER for about the last month feels dizziness, lightheaded. No SOB, CP, palpitations. Denies changes in bowel or bladder habits. No N/V/C/D. No black, tarry stools or BRB. On plavix and eliquis. Bad gout in the last year. Started plaquenil about 6 months ago. Prednisone and lasix as needed. Multivitamin. No additional supplements or OTC meds. Does not take any NSAIDs. Tylenol as needed. Taking miralax and magnesium daily to prevent constipation. No known personal or family hx of blood disorders. Father, lung ca. Mother, kidney ca. [employer] for 33 years, retired - no known chemical exposures. Interval Hx: Mr. Fox presents today for follow up and lab review. Reports that he feels well overall. Denies new issues. Fatigue has improved. Arthritis is manageable. Staying active. Received injections in his neck and back which have made a huge difference. Denies new aches or pains. SOB,PALMER. No CP, palpitations. Denies changes in bowel or bladder habits. No bleeding or bruising. Reviewed labs in detail today. Appetite is good. BP high today. He notes that it has been running high this week. Denies symptoms. He is planning to call his safety physician once he returns home this afternoon. PAST MEDICAL HISTORY Diagnosis Date Allergic rhinitis, cause unspecified Arthritis Atherosclerotic heart disease of [place] coronary artery without angina pectoris Atrial fibrillation (HCC) Avascular necrosis (HCC) Benign neoplasm of colon Bilateral extracranial carotid artery stenosis CAD (coronary artery disease) Cardiomyopathy (HCC) Chronic back pain Diverticulosis of colon (without [...] ACETBLR/PROX FEM PROSTC AGRFT/ALGRFT 04/2012 Dr. Wood> [facility]. ARTHRP KNE CONDYLEANDPLATU MEDIALANDLAT COMPARTMENTS Right COLONOSCOPY FLX DX W/COLLJ SPEC WHEN PFRMD 05/[address] Mejia COLONOSCOPY SCREENING 05/20/2023 COLONOSCOPY W/BIOPSY SINGLE/MULTIPLE 08/24/2006 EGD 12/01/2020 ESOPHAGOGASTRODUODENOSCOP Y TRANSORAL DIAGNOSTIC 05/2023 EYE SURGERY HX JOINT REPLACEMENT HX LEFT HEART CATH,PERCUTANEOUS 10/06/2022 OPEN REPAIR OF RO (more content not included)... Normal [facility] Ferritin SerPl-mCncon 2023 Ferritin [Mass/Vol] 260.0 ng/mL Normal 30.3-565.7 [facility] Comment on above: Order Comment: Speci men Type: BLOOD SPECIMENOrdering Facility: [facility] Address: [address] [place] [address] Performed By: #### 5 0190-8, 2276-4 ####[facility] LABCLIA [id number] [place] [address] [place] Iron and Iron binding capaci ty panelon 04-23-2024 Iron [Mass/Vol] 66 ug/dL Normal 41-186 [facility] Comment on above: Order Comment: Speci men Type: BLOOD SPECIMENOrdering Facility: [facility] Address: [address] [place] [address] Performed By: #### 5 0190-8, 6-4 ####[facility] LABIA [id number] [address] [place] Iron binding capacity [Mass/Vol] 333 ug/dL Normal 232-386 [facility] Comment on above: Order Comment: Speci men Type: BLOOD SPECIMENOrdering Facility: [facility] Address: [address] [place] [address] Performed By: #### 5 0190-8, 2275-4 ####[facility] LABIA [id number] [address] STATES OF [facility] Iron/TIBC [Molar ratio] 19.8 % Normal 15.0-57.0 [facility] Comment on above: Order Comment: Speci men Type: BLOOD SPECIMENOrdering Facility: [facility] Address: [address] [place] [address] Performed By: #### 5 0190-8, 2275-4 ####[facility] LABIA [id number] [address] [place] CNOVon 03-29-2024 CNOV Office Visit ([facility] ) ----- SHELTON FOX ([id number]) 1945 M Date Time Provider Department 03/29/24 7:40 AM RUTH PEREZ During your visit today, we recorded the following information about you: Pulse Respiration Blood pressure Weight 85/minute 16/minute 142/68 79.3 kg Ruth Perez APRN.GANG HEMSTITCHING MACHINE OPERATOR 03/29/2024 8:21 AM Signed This is a 78 year old male who presents today with: Patient presents with: Acute Visit: rash on right leg HISTORY OF PRESENT ILLNESS: Shelton Fox is a 78 year old male. Patient presents with: Acute Visit: rash on right leg Here in the office for rash. Started about 1 week ago on right calf. Has been applying coritsone cream with mild relief. Rash has not spread, very itchy. No seeping. Back Pain, currently in PT. Taking Tylenol as needed due to anticoagulants. Has been applying Ivone unit. No numbness and tingling down the legs. The low back feels very tight. Cannot play golf. Following with pain manamgent, discussions of injections in the future Ear pain, has been applying debrox ear drops. History of cerumen impaction in the past. No difficulty hearing. PAST MEDICAL HISTORY: PAST MEDICAL HISTORY No date: Allergic rhinitis, cause unspecified No date: Arthritis No date: Atherosclerotic heart disease of [place] coronary artery without angina pectoris No date: Atrial fibrillation (HCC) No date: Avascular necrosis (HCC) No date: Benign neoplasm of colon No date: Bilateral extracranial carotid artery stenosis No date: CAD (coronary artery disease) No date: Cardiomyopathy (HCC) No date: Chronic back pain No date: Diverticulosis of colon (without mention of hemorrhage) No date: Dyslipidemia No date: Erectile dysfunction No date: Essential hypertension, benign No date: Fatigue No date: GERD (gastroesophageal reflux disease) No date: Gout, unspecified No date: H/O carotid stenosis No date: Hepatomegaly No date: Internal hemorrhoids without mention of complication No date: Mixed hyperlipidemia No date: Osteoarthritis No date: Other and unspecified hyperlipidemia No date: Peripheral arterial disease (HCC) No date: Prominent abdominal aortic pulsation No date: S/P drug eluting coronary stent placement No date: Snoring 12/21/2022: Status post catheter ablation of atrial fibrillation Comment: Patient underwent radiofrequency PVI for both atrial fibrillation as well as typical atrial flutter with Dr. Walker on 12/20/2022. No date: Subclavian arterial stenosis (HCC) No date: Unspecified atrial fibrillation (HCC) PAST SURGICAL HISTORY 06/2011: ARTHROPLASTY TOTAL SHOULDER Comment: Dr. Benitez. 04/2012: ARTHRP ACETBLR/PROX FEM PROSTC AGRFT/ALGRFT Comment: Dr. Wood> [facility] No date: ARTHRP KNE CONDYLEANDPLATU MEDIALANDLAT COMPARTMENTS Comment: Right 05/2023: COLONOSCOPY FLX DX W/COLLJ SPEC WHEN PFRMD Comment: with Dr. Mejia 05/20/2023: COLONOSCOPY SCREENING 08/24/2006: COLONOSCOPY W/BIOPSY SINGLE/MULTIPLE 12/01/2020: EGD 05/2023: ESOPHAGOGASTRODUODENOSCOP Y TRANSORAL DIAGNOSTIC No date: EYE SURGERY HX No date: JOINT REPLACEMENT HX 10/06/2022: LEFT HEART CATH,PERCUTANEOUS 10/03/2008: OPEN REPAIR OF ROTATOR CUFF ACUTE Comment: Rotator cuff repair-right No date: PAST SURGICAL HISTORY OF Comment: right knee scope No date: PAST SURGICAL HISTORY OF Comment: cataract both eyes 12/20/2022: PAST SURGICAL HISTORY OF; N/A Comment: EPS with Ablation, Joan Horowitz 12/26/2023: PAST SURGICAL HISTORY OF; Right Comment: Endarterctomy carotid No date: TONSILLECTOMY HX No date: TONSILLECTOMY PRIMARY/SECONDARY Comment: Tonsillectomy and adnoids ALLERGIES Plaquenil [Hydroxychloroquine], Spironolactone, Indocin [Indomethacin Sodium], and Mobic [Meloxicam] MEDICATIONS Current Outpatient Medications Medication Sig lisinopril (ZESTRIL) 5 mg tablet Take 5 mg by mouth every afternoon. predniSONE (DELTASONE) 2.5 mg tablet Take 1 tablet by mouth once daily. acetaminophen (TYLENOL) 325 mg tablet Take by mouth. simvastatin (ZOCOR) 20 mg tablet Take 1 tablet by mouth once daily. polyethylene glycol 3350 17 gram packet Take 17 g by mouth once daily. Dissolve dose in 4 - 8 ounces of liquid and take as directed. aspirin 81 mg chewable tablet Take 81 mg by mouth once daily. Patient reports taking one 81mg chewable tablet by mouth once daily. Lactobacillus acidophilus (ACIDOPHILUS ORAL) Take 1 capsule by mouth once daily. vitamin B complex (SUPER B COMPLEX ORAL) Take 1 tablet by mouth once daily. Magnesium Oxide 500 mg tab Take 1 tablet by mouth once daily. furosemide (LASIX) 40 mg tablet Take 40 mg by mouth as needed. allopurinol (ZYLOPRIM) 100 mg tablet take 1 tablet by mouth twice a day pantoprazole DR (PROTONIX) 20 mg tablet Take 1 tablet by mouth daily before breakfast. Take on empty stomach, 1/2 hr before meal. carvedilol (more content not included)... Normal [facility] Inital Evaluation (1) - PTon 03-26-2024 Inital Evaluation (1) - PT Normal [facility] 03-08-2024 CNPN Telephone (FAMPWS) ----- SHELTON FOX ([id number]) 1945 M Date Time Provider Department 03/08/24 [facility] During your visit today, we recorded the following information about you: Gretel Morelos RN 03/08/2024 10:04 AM Signed Pt called in and reports he saw provider on 02/27/24 for back pain. Pt states it hadn't gotten better. He states he can only take Tylenol due to heart issues ans this doesn't really help. Pt states he use heat and a roll on like icy hot, this helps a little. He says he can't use anything like Voltaren rub due to his heart. He reports to feeling really stiff when he gets up in the morning, and says it's hard to bend forward and backward. Pt states his pain is a 10/10 constant dull aching, and was asking if provider cold send something in for him. Pt reports he went to pain management for his neck and that is better, I encouraged hi to call them about his back. Pt uses [facility] in [place]. Please call and advise. Ruth Perez APRN.GANG HEMSTITCHING MACHINE OPERATOR 03/08/2024 11:11 AM Signed Can you please call the patient back and ask if he would like to do a prednisone taper to see if that will help with his pain? If he is agreeable please verify pharmacy. If he would like I can order a muscle relaxant as well. Please let me know what he prefers. Thank you. NITA Monique Barbara, LPN 03/08/2024 11:19 AM Signed Patient notified of recommendations, verbalizes understanding of instructions. Pt stated he will do both Prednisone and muscle relaxant. Please send to [facility] Brianna. FREDDY Hays Ashley, APRN.CNP 03/08/2024 11:27 AM Signed The following approved medication requests have been transmitted electronically. Requested Prescriptions Signed Prescriptions Disp Refills predniSONE (DELTASONE) 10 mg tablet 21 tablet 0 Sig: Take 4 tabs daily for 3 days, then 2 tabs daily for 3 days, then 1 tab daily for 3 days with food. Authorizing Provider: RUTH PEREZ tiZANidine (ZANAFLEX) 4 mg tablet 30 tablet 0 Sig: Take 1 tablet by mouth every 8 hours as needed (muscle spasms) for up to 10 days. Authorizing Provider: RUTH PEREZ APRN.CNP Allergies As of Date: 03/08/2024 Noted Allergy Reaction PLAQUENIL (HYDROXYCHLOROQUINE) 01/20/2024 9 - Itching SPIRONOLACTONE 02/03/2023 14 - Other: See Comments Comments: Dizziness and severe headaches INDOCIN (INDOMETHACIN SODIUM) 05/05/2005 6 - Diarrhea MOBIC (MELOXICAM) 08/16/2014 6 - Diarrhea Date Reviewed: 02/27/2024 Reviewed by: Yasmeen Oliveros MA - Fully Assessed Reason for Visit: Patient Update [1234] Medication Request [138] Primary Visit Diagnosis:Acute right-sided low back pain without sciatica [M54.50] Order(s):predniSONE (DELTASONE) 10 mg tabletTake 4 tabs daily for 3 days, then 2 tabs daily for 3 days, then 1 tab daily for 3 days with food.Disp: 21 tabletRfl: 0 tiZANidine (ZANAFLEX) 4 mg tabletTake 1 tablet by mouth every 8 hours as needed (muscle spasms) for up to 10 days.Disp: 30 tabletRfl: 0 Prescriptions as of 03/08/2024 - predniSONE (DELTASONE) 10 mg tablet Take 4 tabs daily for 3 days, then 2 tabs daily for 3 days, then 1 tab daily for 3 days with food. - tiZANidine (ZANAFLEX) 4 mg tablet Take 1 tablet by mouth every 8 hours as needed (muscle spasms) for up to 10 days. - lisinopril (ZESTRIL) 5 mg tablet Take 5 mg by mouth every afternoon. - predniSONE (DELTASONE) 2.5 mg tablet Take 1 tablet by mouth once daily. - acetaminophen (TYLENOL) 325 mg tablet Take by mouth. - simvastatin (ZOCOR) 20 mg tablet Take 1 tablet by mouth once daily. - polyethylene glycol 3350 17 gram packet Take 17 g by mouth once daily. Dissolve dose in 4 - 8 ounces of liquid and take as directed. - aspirin 81 mg chewable tablet Take 81 mg by mouth once daily. Patient reports taking one 81mg chewable tablet by mouth once daily. - Lactobacillus acidophilus (ACIDOPHILUS ORAL) Take 1 capsule by mouth once daily. - vitamin B complex (SUPER B COMPLEX ORAL) Take 1 tablet by mouth once daily. - Magnesium Oxide 500 mg tab Take 1 tablet by mouth once daily. - furosemide (LASIX) 40 mg tablet Take 40 mg by mouth as needed. - allopurinol (ZYLOPRIM) 100 mg tablet take 1 tablet by mouth twice a day - pantoprazole DR (PROTONIX) 20 mg tablet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 By: #### L 501.1400, L500.4050, L3300.1900, L100.0100 ####[facility] [address] [place], [address] Potassium [Moles/Vol] 4.2 mmol/L Normal 3.5-5.1 [facility] Comment on above: Performed By: #### L 501.1400, L500.4050, L3300.1900, L100.0100 ####[facility] [address] [place], [address] Sodium [Moles/Vol] 135 mmol/L Low 136-145 [facility] Comment on above: Performed By: #### L 501.1400, L500.4050, L3300.1900, L100.0100 ####[facility] [address] [place], [address] T PROT 7.5 g/dL Normal 6.4-8.2 [facility] Comment on above: Performed By: #### L 501.1400, L500.4050, L3300.1900, L100.0100 ####[facility] [address] [place], [address] Urea nitrogen [Mass/Vol] 41 mg/dL High 7-18 [facility] Comment on above: Performed By: #### L 501.1400, L500.4050, L3300.1900, L100.0100 ####[facility] [address] [place], [address] Uric Acidon 02-08-2024 URIC 6.0 mg/dL Normal 3.5-7.2 [facility] Comment on above: Result Comment: The drugs N-Acetylcysteine and Metamizole may falselydepress this assay. Performed By: #### L 501.1400, L500.4050, L3300.1900, L100.0100 ####[facility] [address] [place], [address] [facility]20[facility] ----- SHELTON FOX ([id number]) 1945 M Date Time Provider Department 01/27/24 PHI CABA [facility] During your visit today, we recorded the following information about you: Vel Kc MA 01/27/2024 3:35 PM Signed Left detailed message regarding future appt [facility] US 02/27/24 10:00am [facility]. Allergies As of Date: 01/27/2024 Noted Allergy Reaction PLAQUENIL (HYDROXYCHLOROQUINE) 01/20/2024 9 - Itching SPIRONOLACTONE 02/03/2023 14 - Other: See Comments Comments: Dizziness and severe headaches INDOCIN (INDOMETHACIN SODIUM) 05/05/2005 6 - Diarrhea MOBIC (MELOXICAM) 08/16/2014 6 - Diarrhea Date Reviewed: 01/26/2024 Reviewed by: Phi Caba MD - Fully Assessed Reason for Visit: Future Appointment [256] Prescriptions as of 01/27/2024 - lisinopril (ZESTRIL) 5 mg tablet Take 5 mg by mouth every afternoon. - predniSONE (DELTASONE) 2.5 mg tablet Take 1 tablet by mouth once daily. - acetaminophen (TYLENOL) 325 mg tablet Take by mouth. - simvastatin (ZOCOR) 20 mg tablet Take 1 tablet by mouth once daily. - polyethylene glycol 3350 17 gram packet Take 17 g by mouth once daily. Dissolve dose in 4 - 8 ounces of liquid and take as directed. - aspirin 81 mg chewable tablet Take 81 mg by mouth once daily. Patient reports taking one 81mg chewable tablet by mouth once daily. - Lactobacillus acidophilus (ACIDOPHILUS ORAL) Take 1 capsule by mouth once daily. - vitamin B complex (SUPER B COMPLEX ORAL) Take 1 tablet by mouth once daily. - Magnesium Oxide 500 mg tab Take 1 tablet by mouth once daily. - furosemide (LASIX) 40 mg tablet Take 40 mg by mouth as needed. - allopurinol (ZYLOPRIM) 100 mg tablet take 1 tablet by mouth twice a day - pantoprazole DR (PROTONIX) 20 mg tablet Take 1 tablet by mouth daily before breakfast. Take on empty stomach, 1/2 hr before meal. - carvedilol (COREG) 6.25 mg tablet Take 1 tablet by mouth twice daily. - multivit with minerals/lutein (MULTIVITAMIN 50 PLUS ORAL) Take 1 tablet by mouth once daily. - apixaban (ELIQUIS) 5 mg tab(s) Take 5 mg by mouth twice daily. - Melatonin 5 mg cap Take 5 mg by mouth at bedtime as needed. 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] 08/24/2006 DIVERTICULOSIS OF COLON W/O BLEED [K57.30] 08/24/2006 BENIGN NEOPLASM LG BOWEL [D12.6] 08/24/2006 Pain in limb [M79.609] 10/09/2007 10/30/2018 Disturbance of skin sensation [R20.9] 10/09/2007 10/30/2018 ANKLE ENTHESOPATHY NEC [M77.50] 07/05/2008 CONGENITAL PES PLANUS [Q66.50] 07/05/2008 Symptomatic carotid artery stenosis, right [I65*01/17/2009 Avascular necrosis (HCC) [M87.00] 08/24/2010 01/17/2023 Shoulder joint replacement 09/28/2010 Shoulder joint replacement by other means [Z96.*10/01/2010 Other physical therapy [SRG7495] 10/01/2010 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] 06/28/2011 Gastroesophageal reflux disease [K21.9] 04/27/2017 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 PAD (peripheral artery disease) (HCC) [I73.9] 05/01/2019 Atrial fibrillation (HCC) [I48.91] 08/30/2022 Ischemic cardiomyopathy [I25.5] Status post catheter ablation of atrial fibrill*12/21/2022 Paroxysmal atrial fibrillation (HCC) [I48.0] 03/28/2023 Status post ablation of atrial flutter [Z98.890*03/28/2023 Dyspnea [R06.00] 03/29/2023 Coronary artery disease involving [place]*05/19/2023 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] 02/03/2023 History of arthritis [Z87.39] 05/19/2023 Former smoker [Z87.891] 05/19/2023 Anemia [D64.9] 05/19/2023 Dysphagia [R13.10] 05/20/2023 History of colonic polyps [Z86.010] 05/20/2023 Cardiomyopathy, unspecified type (HCC) [I42.9] 06/22/2023 Preop examination [Z01.818] 12/19/2023 S/P carotid endarterectomy [Z98.890] 12/26/2023 Encounter Status:Closed by EDGAR KC [facility] (TOM ANG[facility] ----- SHELTON FOX ([id number]) 1945 M Date Time Provider Department 01/26/24 9:00 AM PHI CABA During your visit today, we recorded the following information about you: Pulse Respiration Blood pressure Weight 64/minute 16/minute 130/70 77.1 kg Height 1.778 m Phi Caba MD 01/26/2024 9:17 AM Signed Shelton Fox is a 78 year old male who presents in follow up after R CEA on 12/26/23 for symptomatic stenosis. Pt has said he's had a low grade R sided headache since surgery. Disussed that headaches aren't typically a symptom of carotid disease or of surgery. He also has bone spurs in his neck and has had C4-5 injections. This is more likely the cause. The pt is doing well post surgery. They are following post op instructions. The incisions are healing well. He has a small hematoma associated with the incision that he states is going down. He complains of some numbness which is normal. He asked about getting back to normal activity like golf and lifting some weight after his vacation next week. He can begin to resume normal activity but should take it slow at the start. Discussed f/u US in the next month or two (states he still has some sorness at the neck) and then yearly. MEDICATIONS: Current Outpatient Medications Medication Sig Dispense Refill lisinopril (ZESTRIL) 5 mg tablet Take 5 mg by mouth every afternoon. predniSONE (DELTASONE) 2.5 mg tablet Take 1 tablet by mouth once daily. acetaminophen (TYLENOL) 325 mg tablet Take by mouth. simvastatin (ZOCOR) 20 mg tablet Take 1 tablet by mouth once daily. 90 tablet 3 polyethylene glycol 3350 17 gram packet Take 17 g by mouth once daily. Dissolve dose in 4 - 8 ounces of liquid and take as directed. aspirin 81 mg chewable tablet Take 81 mg by mouth once daily. Patient reports taking one 81mg chewable tablet by mouth once daily. Lactobacillus acidophilus (ACIDOPHILUS ORAL) Take 1 capsule by mouth once daily. vitamin B complex (SUPER B COMPLEX ORAL) Take 1 tablet by mouth once daily. Magnesium Oxide 500 mg tab Take 1 tablet by mouth once daily. furosemide (LASIX) 40 mg tablet Take 40 mg by mouth as needed. allopurinol (ZYLOPRIM) 100 mg tablet take 1 tablet by mouth twice a day [address] (PROTONIX) 20 mg tablet Take 1 tablet by mouth daily before breakfast. Take on empty stomach, 1/2 hr before meal. 90 tablet 3 carvedilol (COREG) 6.25 mg tablet Take 1 tablet by mouth twice daily. multivit with minerals/lutein (MULTIVITAMIN 50 PLUS ORAL) Take 1 tablet by mouth once daily. apixaban (ELIQUIS) 5 mg tab(s) Take 5 mg by mouth twice daily. Melatonin 5 mg cap Take 5 mg by mouth at bedtime as needed. No current facility-administered medications for this visit. ALLERGIES Allergen Reactions Plaquenil [Hydroxyc* Itching Spironolactone Other: See Comments Dizziness and severe headaches Indocin [Indomethac* Diarrhea Mobic [Meloxicam] Diarrhea There were no vitals taken for this visit. PHYSICAL EXAM: PHYSICAL EXAMINATION: General appearance: Well appearing, alert, in no acute distress, well-hydrated, well nourished. Skin: Skin color, texture, turgor normal, no suspicious rashes or lesions, incisions well healed, small hematoma Head: Lungs: Unlabored on room air Heart: Abdomen: Extremities: Musculoskeletal: Peripheral pulses: Neuro: Gait normal. Reflexes normal and symmetric. Sensation grossly intact. ASSESSMENT: S/p r CEA, symptomatic PLAN: Carotid US in 1-2 months Headache unrelated to recent surgery, continue workup prn Okay to resume normal activity, slow at first Continue asa and statin F/u in 1 year FOLLOW UP: No follow-ups on file. Phi Caba MD Referring Provider: FEDERICO VIGIL [[id number]] Allergies As of Date: 01/26/2024 Noted Allergy Reaction PLAQUENIL (HYDROXYCHLOROQUINE) 01/20/2024 9 - Itching SPIRONOLACTONE 02/03/2023 14 - Other: See Comments Comments: Dizziness and severe headaches INDOCIN (INDOMETHACIN SODIUM) 05/05/2005 6 - Diarrhea MOBIC (MELOXICAM) 08/16/2014 6 - Diarrhea Date Reviewed: 01/26/2024 Reviewed by: Phi Caba MD - Fully Assessed Reason for Visit: Post Op [174] Cmt: 12/26/23 Rt CEA Primary Visit Diagnosis:Amaurosis fugax of right eye [G45.3] Other Visit Diagnoses:Bilateral extracranial carotid artery stenosis [I65.23] History of right-sided carotid endarterectomy [Z98.890] Order(s):US CAROTID BILATERAL [[id number]] Order #: [id number] FUTURE Prescriptions as of 01/26/2024 - lisinopril (ZESTRIL) 5 mg tablet Take 5 mg by mouth every afternoon. - predniSONE (DELTASONE) 2.5 mg tablet Take 1 tablet by mouth once daily. - acetaminophen (TYLENOL) 325 mg tablet Take by mouth. - simvastatin (ZOCOR) 20 mg tablet Take 1 tablet by mouth once daily. - polyethylene glycol 3350 17 gram packet Take 17 g by mouth once d (more content not included)... Normal [facility] CBC W Auto Differential pane l (Bld)on 01-23-2024 Basophils (Bld) [#/Vol] 0.05 10*3/uL Normal <0.11 [facility] Comment on above: Order Comment: Speci men Type: BLOOD SPECIMENOrdering Facility: [facility] Address: [address] [place] [address] Performed By: #### 5 7021-8 ####[facility] [id number] [place] [address] [place] Basophils/100 WBC (Bld) 0.6 % Normal [facility] Comment on above: Order Comment: Speci men Type: BLOOD SPECIMENOrdering Facility: [facility] Address: [address] [place] [address] Performed By: #### 5 7021-8 ####[facility] [id number] [place] [address] [place] Differential cell count method Nom (Bld) Auto Normal [facility] Comment on above: Order Comment: Speci men Type: BLOOD SPECIMENOrdering Facility: [facility] Address: [address] [place] [address] Performed By: #### 5 7021-8 ####[facility] [id number] [place] [address] [place] Eosinophils (Bld) [#/Vol] 0.11 10*3/uL Normal <0.46 [facility] Comment on above: Order Comment: Speci men Type: BLOOD SPECIMENOrdering Facility: [facility] Address: [address] [place] [address] Performed By: #### 5 7021-8 ####[facility] PURVINCLIA [id number] [place] [address] [place] Eosinophils/100 WBC (Bld) 1.4 % Normal [facility] Comment on above: Order Comment: Speci men Type: BLOOD SPECIMENOrdering Facility: [facility] Address: [address] [place] [address] Performed By: #### 5 7021-8 ####[facility] [id number] [place] [address] [place] Erythrocyte distribution width (RBC) [Ratio] 13.5 % Normal 11.5-15.0 [facility] Comment on above: Order Comment: Speci men Type: BLOOD SPECIMENOrdering Facility: [facility] Address: [address] [place] [address] Performed By: #### 5 7021-8 ####[facility] [id number] [place] [address] [place] Hematocrit (Bld) [Volume fraction] 34.1 % Low 39.0-51.0 [facility] Comment on above: Order Comment: Speci men Type: BLOOD SPECIMENOrdering Facility: [facility] Address: [address] [place] [address] Performed By: #### 5 7021-8 ####[facility] IGNACIONEW TRENTONNCLIA [id number] [place] [address] [place] Hemoglobin (Bld) [Mass/Vol] 11.1 g/dL Low 13.0-17.0 [facility] Comment on above: Order Comment: Speci men Type: BLOOD SPECIMENOrdering Facility: [facility] Address: [address] [place] [address] Performed By: #### 5 7021-8 ####[facility] [id number] [place] [address] [place] Immature granulocytes (Bld) [#/Vol] 0.04 10*3/uL Normal <0.10 [facility] Comment on above: Order Comment: Speci men Type: BLOOD SPECIMENOrdering Facility: [facility] Address: [address] [place] [address] Performed By: #### 5 7021-8 ####[facility] [id number] [place] [address] [place] Immature granulocytes/100 WBC (Bld) 0.5 % Normal [facility] Comment on above: Order Comment: Speci men Type: BLOOD SPECIMENOrdering Facility: [facility] Address: [address] [place] [address] Performed By: #### 5 7021-8 ####[facility] [id number] [place] [address] [place] Lymphocytes (Bld) [#/Vol] 1.94 10*3/uL Normal 1.00-4.00 [facility] Comment on above: Order Comment: Speci men Type: BLOOD SPECIMENOrdering Facility: [facility] Address: [address] [place] [address] Performed By: #### 5 7021-8 ####[facility] HOSPITALBULLA [id number] [place] [address] [place] Lymphocytes/100 WBC (Bld) 25.1 % Normal [facility] Comment on above: Order Comment: Speci men Type: BLOOD SPECIMENOrdering Facility: [facility] Address: [address] [place] [address] Performed By: #### 5 7021-8 ####[facility]ENTERNCLIA [id number] [place] [address] [place] MCH (RBC) [Entitic mass] 31.2 pg Normal 26.0-34.0 [facility] Comment on above: Order Comment: Speci men Type: BLOOD SPECIMENOrdering Facility: [facility] Address: [address] [place] [address] Performed By: #### 5 7021-8 ####[facility] IGNACIOJaswinderNCYARELIS [id number] [place] [address] [place] MCHC (RBC) [Mass/Vol] 32.6 g/dL Normal 30.5-36.0 [facility] Comment on above: Order Comment: Speci men Type: BLOOD SPECIMENOrdering Facility: [facility] Address: [address] [place] [address] Performed By: #### 5 7021-8 ####[facility]ENTERNCSE[facility] [id number] [place] [address] [place] MCV (RBC) [Entitic vol] 95.8 fL Normal 80.0-100.0 [facility] Comment on above: Order Comment: Speci men Type: BLOOD SPECIMENOrdering Facility: [facility] Address: [address] [place] [address] Performed By: #### 5 7021-8 ####[facility]ENTERNCA [id number] [place] [address] [place] Monocytes (Bld) [#/Vol] 0.62 10*3/uL Normal <0.87 [facility] Comment on above: Order Comment: Speci men Type: BLOOD SPECIMENOrdering Facility: [facility] Address: [address] [place] [address] Performed By: #### 5 7021-8 ####[facility]ENTERNCA [id number] [address] [place] Monocytes/100 WBC (Bld) 8.0 % Normal [facility] Comment on above: Order Comment: Speci men Type: BLOOD SPECIMENOrdering Facility: [facility] Address: [address] [place], [place] [address] Performed By: #### 5 7021-8 ####[facility] MILLTOWNCLIA [id number] [place] [address] [place] Neutrophils (Bld) [#/Vol] 4.96 10*3/uL Normal 1.45-7.50 [facility] Comment on above: Order Comment: Speci men Type: BLOOD SPECIMENOrdering Facility: [facility] Address: [address] [place] [address] Performed By: #### 5 7021-8 ####[facility] MILLWNCLIA [id number] [place] [address] [place] Neutrophils/100 WBC (Bld) 64.4 % Normal [facility] Comment on above: Order Comment: Speci men Type: BLOOD SPECIMENOrdering Facility: [facility] Address: [address] [place] [address] Performed By: #### 5 7021-8 ####[facility] HOSPITALLIA [id number] [place] [address] [place] Nucleated RBC (Bld) [#/Vol] 10*3/uL Normal <0.01 [facility] Comment on above: Order Comment: Speci men Type: BLOOD SPECIMENOrdering Facility: [facility] Address: [address] [place] [address] Performed By: #### 5 7021-8 ####[facility] MILLTOWNCLIA [id number] [place] [address] [place] Nucleated RBC/100 WBC (Bld) [Ratio] 0.0 /100 WBC Normal [facility] Comment on above: Order Comment: Speci men Type: BLOOD SPECIMENOrdering Facility: [facility] Address: [address] [place] [address] Performed By: #### 5 7021-8 ####[facility] MILLWNCLIA [id number] [place] [address] [place] Platelet mean volume (Bld) [Entitic vol] 9.6 fL Normal 9.0-12.7 [facility] Comment on above: Order Comment: Speci men Type: BLOOD SPECIMENOrdering Facility: [facility] Address: [address] [place] [address] Performed By: #### 5 7021-8 ####[facility] CENTERALMAYARELIS [id number] [place] [address] [place] Platelets (Bld) [#/Vol] 194 10*3/uL Normal 150-400 [facility] Comment on above: Order Comment: Speci men Type: BLOOD SPECIMENOrdering Facility: [facility] Address: [address] [place] [address] Performed By: #### 5 7021-8 ####[facility]ENTERNCLIA [id number] [place] [address] [place] RBC (Bld) [#/Vol] 3.56 10*6/uL Low 4.20-6.00 [facility] Comment on above: Order Comment: Speci men Type: BLOOD SPECIMENOrdering Facility: [facility] Address: [address] [place] [address] Performed By: #### 5 7021-8 ####[facility]ENTERNCLIA [id number] [place] [address] [place] WBC (Bld) [#/Vol] 7.72 10*3/uL Normal 3.70-11.00 [facility] Comment on above: Order Comment: Speci men Type: BLOOD SPECIMENOrdering Facility: [facility] Address: [address] [place] [address] Performed By: #### 5 7021-8 ####[facility]ENTERNCLIA [id number] [place] [address] [place] Comprehensive metabolic 2000 panelon 01-23-2024 Albumin [Mass/Vol] 4.3 g/dL Normal 3.9-4.9 [facility] Comment on above: Order Comment: Speci men Type: BLOOD SPECIMENOrdering Facility: [facility] Address: [address] [place] [address] Performed By: #### 2 4323-8 ####[facility] BRIANNA MILLWMTLIA [id number] [place] [address] [place] ALP [Catalytic activity/Vol] 79 U/L Normal 38-113 [facility] Comment on above: Order Comment: Speci men Type: BLOOD SPECIMENOrdering Facility: [facility] Address: [address] [place] [address] Performed By: #### 2 4323-8 ####[facility] HOSPITALLIA [id number] [place] [address] [place] ALT [Catalytic activity/Vol] 11 U/L Normal 10-54 [facility] Comment on above: Order Comment: Speci men Type: BLOOD SPECIMENOrdering Facility: [facility] Address: [address] [place] [address] Performed By: #### 2 4323-8 ####[facility]ENTERNCLIA [id number] [place] [address] [place] Anion gap [Moles/Vol] 10 mmol/L Normal 8-15 [facility] Comment on above: Order Comment: Speci men Type: BLOOD SPECIMENOrdering Facility: [facility] Address: [address] [place] [address] Performed By: #### 2 4323-8 ####[facility] HOSPITALLIA [id number] [place] [address] [place] AST [Catalytic activity/Vol] 17 U/L Normal 14-40 [facility] Comment on above: Order Comment: Speci men Type: BLOOD SPECIMENOrdering Facility: [facility] Address: [address] [place] [address] Performed By: #### 2 4323-8 ####[facility] MILLTOWNCLIA [id number] [place] [address] [place] Bilirubin [Mass/Vol] 0.4 mg/dL Normal 0.2-1.3 [facility] Comment on above: Order Comment: Speci men Type: BLOOD SPECIMENOrdering Facility: [facility] Address: [address] [place] [address] Performed By: #### 2 4323-8 ####[facility] MILLTOWNCLIA [id number] [place] [address] [place] Calcium [Mass/Vol] 9.5 mg/dL Normal 8.5-10.2 [facility] Comment on above: Order Comment: Speci men Type: BLOOD SPECIMENOrdering Facility: [facility] Address: [address] [place] [address] Performed By: #### 2 4323-8 ####[facility] MILLWNCLIA [id number] [place] [address] [place] Chloride [Moles/Vol] 105 mmol/L Normal 98-107 [facility] Comment on above: Order Comment: Speci men Type: BLOOD SPECIMENOrdering Facility: [facility] Address: [address] [place] [address] Performed By: #### 2 4323-8 ####[facility] MILLTOWNCLIA [id number] [place] [address] [place] CO2 [Moles/Vol] 26 mmol/L Normal 22-30 [facility] Comment on above: Order Comment: Speci men Type: BLOOD SPECIMENOrdering Facility: [facility] Address: [address] [place] [address] Performed By: #### 2 4323-8 ####[facility] MILLTOWNCLIA [id number] [place] [address] [place] Creatinine [Mass/Vol] 1.04 mg/dL Normal 0.73-1.22 [facility] Comment on above: Order Comment: Tiarra jackson Type: BLOOD SPECIMENOrdering Facility: [facility] Address: [address] [place] [address] Performed By: #### 2 4323-8 ####[facility] [id number] [place] [address] [place] Creatinine and Glomerular filtration rate.predicted panel (S/P/Bld) 73 mL/min/1.73m??? Normal >=60 [facility] Comment on above: Order Comment: Tiarra jackson Type: BLOOD SPECIMENOrdering Facility: [facility] Address: [address] [place] [address] Result Comment: More mated Glomerular Filtration Rate (eGFR) is calculated using the 2020 CKD-EPI creatinine equation. This equation utilizes serum creatinine, sex, and age as parameters. The creatinine assay has traceable calibration to isotope dilution-mass spectrometry. Refer to KDIGO guidelines for clinical interpretation. In patients with unstable renal function, e.g. those with acute kidney injury, the eGFR may not accurately reflect actual GFR. Performed By: #### 2 4323-8 ####[facility] [id number] [place] [address] [place] Glucose [Mass/Vol] 115 mg/dL High 74-99 [facility] Comment on above: Order Comment: Tiarra jackson Type: BLOOD SPECIMENOrdering Facility: [facility] Address: [address] [place] [address] Result Comment: The [place] Diabetes Association (ADA) provides guidance for cutoff values for fasting glucose and random glucose. The ADA defines fasting as no caloric intake for at least 8 hours. Fasting plasma glucose results between 100 to 125 mg/dL indicate increased risk for diabetes (prediabetes). Fasting plasma glucose results greater than or equal to 126 mg/dL meet the criteria for diagnosis of diabetes. In the absence of unequivocal hyperglycemia, results should be confirmed by repeat testing. In a patient with classic symptoms of hyperglycemia or hyperglycemic crisis, random plasma glucose results greater than or equal to 200 mg/dL meet the criteria for diagnosis of diabetes. Reference: Standards of Medical Care in Diabetes 2016, [place] Diabetes Association. Diabetes Care. 2016.39(Suppl 1). Performed By: #### 2 4323-8 ####[facility] [id number] [place] [address] [place] Potassium [Moles/Vol] 4.6 mmol/L Normal 3.7-5.1 [facility] Comment on above: Order Comment: Speci men Type: BLOOD SPECIMENOrdering Facility: [facility] Address: [address] [place] [address] Performed By: #### 2 4323-8 ####[facility] [id number] [place] [address] [place] Protein [Mass/Vol] 6.7 g/dL Normal 6.3-8.0 [facility] Comment on above: Order Comment: Speci men Type: BLOOD SPECIMENOrdering Facility: [facility] Address: [address] [place], [place] [address] Performed By: #### 2 4323-8 ####[facility] [id number] [place] [address] [place] Sodium [Moles/Vol] 141 mmol/L Normal 136-144 [facility] Comment on above: Order Comment: Speci men Type: BLOOD SPECIMENOrdering Facility: [facility] Address: [address] [place] [address] Performed By: #### 2 4323-8 ####[facility] [id number] [place] [address] [place] Urea nitrogen [Mass/Vol] 20 mg/dL Normal 9-24 [facility] Comment on above: Order Comment: Speci men Type: BLOOD SPECIMENOrdering Facility: [facility] Address: [address] [place] [address] Performed By: #### 2 4323-8 ####[facility] [id number] [place] [address] [place] Ferritin SerPl-mCncon 2023 Ferritin [Mass/Vol] 372.0 ng/mL Normal 30.3-565.7 [facility] Comment on above: Order Comment: Speci men Type: BLOOD SPECIMENOrdering Facility: [facility] Address: [address] [place] [address] Performed By: #### 5 0190-8, 2276-4 ####[facility] LABCLIA [id number] [place] [address] [place]#### 96255-0 ####[facility] LABCLIA [id number] [place] [address] [place] [facility] [id number] [place] [address] [place] HbA1c (Bld)on 01-23-2024 Average glucose Estimated from glycated hemoglobin (Bld) [Mass/Vol] 97 mg/dL Normal [facility] Comment on above: Order Comment: Speci men Type: BLOOD SPECIMENOrdering Facility: [facility] Address: [address] [place] [address] Result Comment: eAG: (Estimated average glucose) is a calculated value from HgbA1c and is sales representative graphic art of the average blood glucose level in the last 2-3 month period. Performed By: #### 5 5454-3 ####[facility] LABCLIA [id number] [place] [address] [place] HbA1c (Bld) [Mass fraction] 5.0 % Normal 4.3-5.6 [facility] Comment on above: Order Comment: Speci men Type: BLOOD SPECIMENOrdering Facility: [facility] Address: [address] [place] [address] Result Comment: Amer [place] Diabetes Association guidelines indicate that patients with HgbA1c in the range 5.7-6.4% are at increased risk for development of diabetes, and intervention by lifestyle modification may be beneficial. HgbA1c greater or equal to 6.5% is considered diagnostic of diabetes. Performed By: #### 5 5454-3 ####[facility] LABCLIA [id number] [place] [address] [place] Iron and Iron binding capaci ty panelon 01-23-2024 Iron [Mass/Vol] 88 ug/dL Normal 41-186 [facility] Comment on above: Order Comment: Speci men Type: BLOOD SPECIMENOrdering Facility: [facility] Address: [address] [place] [address] Performed By: #### 5 0190-8, 2275- ####[facility] LABCLIA [id number] [place] [address] [place]#### 49547-8 ####[facility] LABCLIA [id number] [id number] [place] [address] [place] Iron binding capacity [Mass/Vol] 312 ug/dL Normal 232-386 [facility] Comment on above: Order Comment: Speci men Type: BLOOD SPECIMENOrdering Facility: [facility] Address: [address] [place] [address] Performed By: #### 5 0190-8, 2275- ####[facility] LABCLIA [id number] [place] [address] [place]#### 87155-4 ####[facility] LABCLIA [id number] [place] [id number] [facility] [id number] [place] [address] [place] Iron/TIBC [Molar ratio] 28.2 % Normal 15.0-57.0 [facility] Comment on above: Order Comment: Speci men Type: BLOOD SPECIMENOrdering Facility: [facility] Address: [address] [place] [address] Performed By: #### 5 0190-8, 2275-4 ####[facility] LABCLIA [id number] [place] [address] [place]#### 54010-6 ####[facility] LABCLIA [id number] [address] STATES OF [facility] [id number] [place] [address] [place] Lipid 1996 panelon 4 Cholesterol [Mass/Vol] 176 mg/dL Normal <200 [facility] Comment on above: Order Comment: Speci men Type: BLOOD SPECIMENOrdering Facility: [facility] Address: [address] [place] [address] Result Comment: <200 mg/dL, Desirable 200-239 mg/dL, Borderline high >239 mg/dL, High Performed By: #### 5 0190-8, 2275-4 ####[facility] LABCLIA [id number] [place] [address] [place]#### 50962-2 ####[facility] LABCLIA [id number] [address] OF [facility] [id number] [place] [address] [place] Cholesterol in HDL [Mass/Vol] 50 mg/dL Normal >39 [facility] Comment on above: Order Comment: Speci men Type: BLOOD SPECIMENOrdering Facility: [facility] Address: [address] [place], [place] [address] Result Comment: 40-5 9 mg/dL, Acceptable >59 mg/dL, High: Negative risk factor for coronary heart disease <40 mg/dL, Low: Positive risk factor for coronary heart disease Performed By: #### 5 0190-8, 6-4 ####[facility] LABCLIA [id number] [place] [id number] [place]#### 72267-9 ####[facility] LABCLIA [id number] [place] [address] [place] [facility] [id number] [place] [address] [place] Cholesterol in LDL [Mass/Vol] 102 mg/dL High <100 [facility] Comment on above: Order Comment: Speci men Type: BLOOD SPECIMENOrdering Facility: [facility] Address: [address] [place] [address] Result Comment: <100 mg/dL, Optimal 100-129 mg/dL, Near optimal/above optimal 130-159 mg/dL, Borderline high 160-189 mg/dL, High >189 mg/dL, Very high Secondary prevention optimal LDL Cholesterol levels are recommended to be < 70 mg/dL Performed By: #### 5 0190-8, 2275-4 ####[facility] LABCLIA [id number] [place] [address] [place]#### 38298-0 ####[facility] LABCLIA [id number] [place] [id number] [place] [facility] [id number] [place] [address] [place] Cholesterol in LDL/Cholesterol in HDL [Mass ratio] 2.04 {ratio} Normal <2.54 [facility] Comment on above: Order Comment: Speci men Type: BLOOD SPECIMENOrdering Facility: [facility] Address: [address] [place] [address] Result Comment: Refe hien: 1. National Cholesterol Education Program ATP III Guideline At-A-Glance Quick Desk Reference: National Heart, Lung, and Blood [place]. National Institutes of Health. 2001: NIH Publication No. 01-3305. 2. An International Atherosclerosis Society position paper: global recommendations for the management of dyslipidemia: executive summary, Atherosclerosis. 2014: 232(2):410-413. Performed By: #### 5 0190-8, 2275- ####[facility] LABCLIA [id number] [place] [address] [place]#### 50007-0 ####[facility] LABCLIA [id number] [address] [id number] [place] [address] [place] Cholesterol in VLDL [Mass/Vol] 24 mg/dL Normal <30 [facility] Comment on above: Order Comment: Speci men Type: BLOOD SPECIMENOrdering Facility: [facility] Address: [address] [place] [address] Performed By: #### 5 0190-8, 2275-10 ####[facility] LABCLIA [id number] [address] [place]#### 66569-8 ####[facility] LABCLIA [id number] [address] [id number] [place] [address] [place] Cholesterol non HDL [Mass/Vol] 126 mg/dL Normal <130 [facility] Comment on above: Order Comment: Speci men Type: BLOOD SPECIMENOrdering Facility: [facility] Address: [address] [place] [address] Result Comment: <130 mg/dL, Optimal 130-159 mg/dL, Near optimal/above optimal 160-189 mg/dL, Borderline high 190-219 mg/dL, High >219 mg/dL, Very high Secondary prevention optimal non HDL Cholesterol levels are recommended to be <100 mg/dL Performed By: #### 5 0190-8, 2275-10 ####[facility] LABCLIA [id number] [place] [address] [place]#### 84927-8 ####[facility] LABCLIA [id number] [id number] [place] [address] [place] Cholesterol.total/Cho lesterol in HDL [Mass ratio] 3.52 {ratio} Normal <5.10 [facility] Comment on above: Order Comment: Speci men Type: BLOOD SPECIMENOrdering Facility: [facility] Address: [address] [place] [address] Performed By: #### 5 0190-8, 2275-10 ####[facility] LABCLIA [id number] [place] [address] [place]#### 90464-2 ####[facility] LABCLIA [id number] [id number] [place] [address] [place] FASTING TIME 12 hrs Normal [facility] Comment on above: Order Comment: Speci men Type: BLOOD SPECIMENOrdering Facility: [facility] Address: [address] [place] [id number] Performed By: #### 5 0190-8, 2275-10 ####[facility] LABCLIA [id number] [place] [address] [place]#### 79350-6 ####[facility] LABCLIA [id number] [address] [id number] [place] [address] [place] Triglyceride [Mass/Vol] 122 mg/dL Normal <150 [facility] Comment on above: Order Comment: Speci men Type: BLOOD SPECIMENOrdering Facility: [facility] Address: [address] [place] [address] Result Comment: <150 mg/dL, Normal 150-199 mg/dL, Borderline high 200-499 mg/dL, High >499 mg/dL, Very high Performed By: #### 5 0190-8, 2276-4 ####[facility] LABCLIA [id number] [address] [place]#### 08120-3 ####[facility] LABCLIA [id number] [address] OF [facility] [id number] [address] [place] CNOVon 01-20-2024 CNOV Office Visit (FAMPWS ) ----- SHELTON FOX ([id number]) 1945 M Date Time Provider Department 01/20/24 9:00 AM FEDERICO VIGIL FAMPWS During your visit today, we recorded the following information about you: Pulse Respiration Blood pressure Weight 60/minute 18/minute 138/64 79.2 kg Federico Vigil MD 01/20/2024 11:11 AM Signed Chief Complaint Patient presents with: F/U 6 Month HPI Shelton Abel Fox is a 78 year old male who presents here today for 6 month follow up. Pt here today for a follow up. Daughter, Li here with him today. No bowel, Gi, or urinary issues. Taking Protonix 20 mg daily for dysphagia. Had EGD completed in past for this. Lipid/CAD: Follows with Vascular Surgeon Dr. Phi Caba, had endarterectomy done 12/26/23, bilateral carotid stenosis. Has not been fully released to do all activities, is able to now walk on a treadmill. Hopefully get released to do more activities such as lift weights and golf. States he doesn't eat real badly. Current regimen of Zocor 20 mg daily and ASA 81 mg daily. Tolerating the Zocor well. A-fib: Follows with EP [facility] Dr. Timothy Walker s/p ablation. Was recently seen by him about a week ago. Was told he didn't have to see him unless there's an issue; may follow with regular Cardiology. Taking Eliquis 5 mg 1 pill twice daily. HTN: No chest pains, dizziness, or SOB. Checking BP at home with readings running generally in the low now in the 130-150's/70's. Taking Lisinopril 5 mg daily and Coreg 6.25 mg 1 pill BID and Lisinopril 5 mg once daily. Cardio Doctor at [facility] added Lisinopril to regimen due to increased BP. Edema: terry legs; L>R foot. Uses Lasix 40 mg once daily as needed. States he doesn't have to use this real often. Anemia: iron deficiency; follows with Hem/Onc. Has had infusions. Following with Dr. Seo, Rheum who has pt taking Prednisone 2.5 mg once daily. Notes some increased arthritis pain. Was d/c off Plaquenil by Dr. Seo due to side effects of itching. Gout: Taking Allopurinol 100 mg 1 pill BID. Stable, no flare ups. Headaches - Experiencing headaches daily since having endarterectomy on 12/26/23. Using Tylenol daily. Has follow up with Vascular next week. Unsure if this is related to surgery or hx of receiving injections from C4-C5 by Dr. Low. Pt states he has bone spurs. He was referred by Dr. Pool. Got a shot about a month ago. States MAURER is right above his right eye and gets pressure/stuffiness in his right ear. Feels like his right ear is full, uses ear drops and lavages his ear. HM - Behavioral Health Screening completed. Denies having Adv Dir/Living Will. Only receives Moderna vaccines, prefers not to switch. Behavioral Health Screening PHQ-2 Score: 0 (Lower risk for depression) MIGUEL-2 Score: 1 (Lower risk for anxiety) Recommendation: no further intervention at this time Past medical history, appointments, medications, allergies reviewed. Previous Medical History PAST MEDICAL HISTORY Diagnosis Date Allergic rhinitis, cause unspecified Arthritis Atherosclerotic heart disease of [place] coronary artery without angina pectoris Atrial fibrillation (HCC) Avascular necrosis (HCC) Benign neoplasm of colon Bilateral extracranial carotid artery stenosis CAD (coronary artery disease) Cardiomyopathy (HCC) Chronic back pain Diverticulosis of colon (without [...] ACETBLR/PROX FEM PROSTC AGRFT/ALGRFT 04/2012 Dr. Wood> [facility] ARTHRP KNE CONDYLEANDPLATU MEDIALANDLAT COMPARTMENTS Right COLONOSCOPY FLX DX W/COLLJ SPEC WHEN PFRMD 05/[address] Mejia COLONOSCOPY SCREENING 05/20/2023 COLONOSCOPY W/BIOPSY SINGLE/MULTIPLE 08/24/2006 EGD 12/01/2020 ESOPHAGOGASTRODUODENOSCOP Y TRANSORAL DIAGNOSTIC 05/2023 EYE SURGERY HX JOINT REPLACEMENT HX LEFT HEART CATH,PERCUTANEOUS 10/06/2022 OPEN REPAIR OF ROTATOR CUFF ACUTE 10/03/2008 Rotator cuff repair-right PAST SURGICAL HISTORY OF right knee scope PAST SURGICAL HISTORY OF ca (more content not included)... Normal [facility] CNPNon 01-13-2024 CNPN Telephone ([employer]) ----- SHELTON FOX ([id number]) 1945 M Date Time Provider Department 01/13/24 PHI CABA During your visit today, we recorded the following information about you: Delmy Peng LPN 01/13/2024 4:11 PM Signed Ry called back stating Shelton's B/P is higher than it usual is. She said this morning it was 186/69 AND 160/60 prior to taking his medications. I told her to call her safety physician or PCP for blood pressure management. I also let her know I did let Dr. Caba know about his B/P AND the firm lump area on his neck AND she agreed- just to keep an eye on it as we discussed earlier. Ry voiced understanding. Delmy Peng LPN Allergies As of Date: 01/13/2024 Noted Allergy Reaction SPIRONOLACTONE 02/03/2023 14 - Other: See Comments Comments: Dizziness and severe headaches INDOCIN (INDOMETHACIN SODIUM) 05/05/2005 6 - Diarrhea MOBIC (MELOXICAM) 08/16/2014 6 - Diarrhea Date Reviewed: 01/04/2024 Reviewed by: Urvashi Gan MA - Fully Assessed Reason for Visit: Patient Update [1234] Prescriptions as of 01/13/2024 - acetaminophen (TYLENOL) 325 mg tablet Take by mouth. - simvastatin (ZOCOR) 20 mg tablet Take 1 tablet by mouth once daily. - polyethylene glycol 3350 17 gram packet Take 17 g by mouth once daily. Dissolve dose in 4 - 8 ounces of liquid and take as directed. - aspirin 81 mg chewable tablet Take 81 mg by mouth once daily. Patient reports taking one 81mg chewable tablet by mouth once daily. - Lactobacillus acidophilus (ACIDOPHILUS ORAL) Take 1 capsule by mouth once daily. - vitamin B complex (SUPER B COMPLEX ORAL) Take 1 tablet by mouth once daily. - Magnesium Oxide 500 mg tab Take 1 tablet by mouth once daily. - furosemide (LASIX) 40 mg tablet Take 40 mg by mouth as needed. - allopurinol (ZYLOPRIM) 100 mg tablet take 1 tablet by mouth twice a day - pantoprazole DR (PROTONIX) 20 mg tablet Take 1 tablet by mouth daily before breakfast. Take on empty stomach, 1/2 hr before meal. - carvedilol (COREG) 6.25 mg tablet Take 1 tablet by mouth twice daily. - multivit with minerals/lutein (MULTIVITAMIN 50 PLUS ORAL) Take 1 tablet by mouth once daily. - apixaban (ELIQUIS) 5 mg tab(s) Take 5 mg by mouth twice daily. - Melatonin 5 mg cap Take 5 mg by mouth at bedtime as needed. 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 Symptomatic carotid artery stenosis, right [I65*01/17/2009 Avascular necrosis (HCC) [M87.00] 08/24/2010 01/17/2023 Shoulder joint replacement 09/28/2010 Shoulder joint replacement by other means [Z96.*10/01/2010 Other physical therapy [AOJ8003] 10/01/2010 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] 06/28/2011 Gastroesophageal reflux disease [K21.9] 04/27/2017 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 PAD (peripheral artery disease) (HCC) [I73.9] 05/01/2019 Atrial fibrillation (HCC) [I48.91] 08/30/2022 Ischemic cardiomyopathy [I25.5] Status post catheter ablation of atrial fibrill*12/21/2022 Paroxysmal atrial fibrillation (HCC) [I48.0] 03/28/2023 Status post ablation of atrial flutter [Z98.890*03/28/2023 Dyspnea [R06.00] 03/29/2023 Coronary artery disease involving [place] gates*05/19/2023 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] 02/03/2023 History of arthritis [Z87.39] 05/19/2023 Former smoker [Z87.891] 05/19/2023 Anemia [D64.9] 05/19/2023 Dysphagia [R13.10] 05/20/2023 History of colonic polyps [Z86.010] 05/20/2023 Cardiomyopathy, unspecified type (HCC) [I42.9] 06/22/2023 Preop examination [Z01.818] 12/19/2023 S/P carotid endarterectomy [Z98.890] 12/26/2023 Encounter Status:Closed by DELMY PENG on 01/13/24 [facility] CNPN Telephone ([employer]) ----- SHELTON FOX ([id number]) 1945 M Date Time Provider Department 01/13/24 PHI CABA During your visit today, we recorded the following information about you: Delmy Peng LPN 01/13/2024 1:21 PM Signed Ry called stating Shelton's neck swelling has gone way down AND now he has a firm ball in the area of his incision. I spoke with Shelton AND he denies any pain or drainage from his incision AND he said it is about the size of a quarter or smaller. He said he is not concerned about it AND did not know his was calling our office. He feels it is healing just fine. I told them to keep an eye on it AND if it gets worse to call us back. Shelton has post op appt with Dr. Caba 01/26/24. Delmy Peng LPN Allergies As of Date: 01/13/2024 Noted Allergy Reaction SPIRONOLACTONE 02/03/2023 14 - Other: See Comments Comments: Dizziness and severe headaches INDOCIN (INDOMETHACIN SODIUM) 05/05/2005 6 - Diarrhea MOBIC (MELOXICAM) 08/16/2014 6 - Diarrhea Date Reviewed: 01/04/2024 Reviewed by: Urvashi Gan MA - Fully Assessed Reason for Visit: Patient Update [1234] Prescriptions as of 01/13/2024 - acetaminophen (TYLENOL) 325 mg tablet Take by mouth. - simvastatin (ZOCOR) 20 mg tablet Take 1 tablet by mouth once daily. - polyethylene glycol 3350 17 gram packet Take 17 g by mouth once daily. Dissolve dose in 4 - 8 ounces of liquid and take as directed. - aspirin 81 mg chewable tablet Take 81 mg by mouth once daily. Patient reports taking one 81mg chewable tablet by mouth once daily. - Lactobacillus acidophilus (ACIDOPHILUS ORAL) Take 1 capsule by mouth once daily. - vitamin B complex (SUPER B COMPLEX ORAL) Take 1 tablet by mouth once daily. - Magnesium Oxide 500 mg tab Take 1 tablet by mouth once daily. - furosemide (LASIX) 40 mg tablet Take 40 mg by mouth as needed. - allopurinol (ZYLOPRIM) 100 mg tablet take 1 tablet by mouth twice a day - pantoprazole DR (PROTONIX) 20 mg tablet Take 1 tablet by mouth daily before breakfast. Take on empty stomach, 1/2 hr before meal. - carvedilol (COREG) 6.25 mg tablet Take 1 tablet by mouth twice daily. - multivit with minerals/lutein (MULTIVITAMIN 50 PLUS ORAL) Take 1 tablet by mouth once daily. - apixaban (ELIQUIS) 5 mg tab(s) Take 5 mg by mouth twice daily. - Melatonin 5 mg cap Take 5 mg by mouth at bedtime as needed. 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 Symptomatic carotid artery stenosis, right [I65*01/17/2009 Avascular necrosis (HCC) [M87.00] 08/24/2010 01/17/2023 Shoulder joint replacement 09/28/2010 Shoulder joint replacement by other means [Z96.*10/01/2010 Other physical therapy [YAS2363] 10/01/2010 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] 06/28/2011 Gastroesophageal reflux disease [K21.9] 04/27/2017 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 PAD (peripheral artery disease) (HCC) [I73.9] 05/01/2019 Atrial fibrillation (HCC) [I48.91] 08/30/2022 Ischemic cardiomyopathy [I25.5] Status post catheter ablation of atrial fibrill*12/21/2022 Paroxysmal atrial fibrillation (HCC) [I48.0] 03/28/2023 Status post ablation of atrial flutter [Z98.890*03/28/2023 Dyspnea [R06.00] 03/29/2023 Coronary artery disease involving [place] gates*05/19/2023 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] 02/03/2023 History of arthritis [Z87.39] 05/19/2023 Former smoker [Z87.891] 05/19/2023 Anemia [D64.9] 05/19/2023 Dysphagia [R13.10] 05/20/2023 History of colonic polyps [Z86.010] 05/20/2023 Cardiomyopathy, unspecified type (HCC) [I42.9] 06/22/2023 Preop examination [Z01.818] 12/19/2023 S/P carotid endarterectomy [Z98.890] 12/26/2023 Encounter Status:Closed by DELMY PENG on 01/13/24 [facility] CNOVon 01-04-2024 CNOV Office Visit (AGCARD POB) ----- SHELTON FOX Page ([id number]) 1945 M Date Time Provider Department 01/04/24 3:00 PM TIMOTHY WALKER AGCARDPOB During your visit today, we recorded the following information about you: Pulse Blood pressure Weight Height 68/minute 132/59 78 kg 1.778 m Timothy Walker MD 01/04/2024 4:26 PM Addendum PRIMARY CARE PHYSICIAN: Federico Vigil [address] [place] [address] Patient Care Team: Federico Vigil MD as PCP - General (Family Medicine) Provider, MD Agustin as Freelance Digital Project Manager CHIEF COMPLAINT: Paroxysmal atrial fibrillation HISTORY OF PRESENT ILLNESS: Mr. Fox is a 78 year old male who presents today for a cardiovascular medicine follow-up visit. History copied from previous notes, edited as needed: 78 year old male with PMH significant for [...] 90% OM lesion and underwent PCI. He underwent radiofrequency catheter ablation for both atrial fibrillation and typical atrial flutter on 12/20/2022. He was discharged the next day on amiodarone due to frequent ectopy. Interim History : He presents today for follow-up. Patient was last seen in June of last year. He was doing well at the time with only brief episodes that he noted on Kardia device. Most of these episodes were not true AF but sinus rhythm with PAC's, at other times indistinguishable from AF but rates were similar to sinus rhythm. He had been changed from metoprolol to carvedilol by his PCP due to issues with fatigue and metoprolol. He has been doing well, with no recurrence of atrial fibrillation. Checking his Kardia device, he has not had any episodes of AF, only reported PACs and PVCs. He just underwent carotid endarterectomy on 12/29 and is recovering from that. Did well postsurgically but is under restrictions for a few weeks after the surgery as far as physical activity is concerned. Otherwise, reports mild chronic fatigue but no other cardiac symptoms. Tolerating Eliquis well with no significant bleeding issues, occasional bruising on his arms. He denies chest pain, shortness of breath, orthopnea, cough, edema, palpitations, PND, lightheadedness or syncope. I have confirmed and edited as necessary, the PFSH and ROS obtained by others. PAST MEDICAL HISTORY Diagnosis Date Allergic rhinitis, cause unspecified Arthritis Atherosclerotic heart disease of [place] coronary artery without angina pectoris Atrial fibrillation (HCC) Avascular necrosis (HCC) Benign neoplasm of colon Bilateral extracranial carotid artery stenosis CAD (coronary artery disease) Cardiomyopathy (HCC) Chronic back pain Diverticulosis of colon (without [...] ACETBLR/PROX FEM PROSTC AGRFT/ALGRFT 04/2012 Dr. Wood> [facility]. ARTHRP KNE CONDYLEANDPLATU MEDIALANDLAT COMPARTMENTS Right COLONOSCOPY FLX DX W/COLLJ SPEC WHEN PFRMD 05/[address] Mejia COLONOSCOPY SCREENING 05/20/2023 COLONOSCOPY W/BIOPSY SINGLE/MULTIPLE 08/24/2006 EGD 12/01/2020 ESOPHAGOGASTRODUODENOSCOP Y TRANSORAL DIAGNOSTIC 05/2023 EYE SURGERY HX JOINT REPLACEMENT HX LEFT HEART CATH,PERCUTANEOUS 10/06/2022 OPEN REPAIR OF ROTATOR CUFF ACUTE 10/03/2008 Rotator cuff repair-right PAST SURGICAL HISTORY OF righ (more content not included)... Normal [facility] CNPNon 01-04-2024 LIZETN Telephone ([employer]) ----- SHELTON FOX ([id number]) 1945 M Date Time Provider Department 01/04/24 PHI CABA [facility] During your visit today, we recorded the following information about you: Keila Renteria LPN 01/04/2024 11:54 AM Signed Spouse, Ry, calling in and left message on Nurse's Line that patient is experiencing a lot of swelling in his neck. Spouse asking is this normal? Recommendations? Keila Renteria LPN January 04, 2024 11:54 AM Elena Watkins APRN.GANG HEMSTITCHING MACHINE OPERATOR 01/04/2024 12:20 PM Signed Swelling is quite common after surgery. So long as it is not causing any issues with his breathing or swallowing, we just continue to monitor. Try not to sleep on that side, as the swelling will go to the most dependent area. OK for ice compress vs warm compress on AND off for ~20 minutes or so at a time if he'd like. If there is any concern for his breathing/swallow, he will need urgent evaluation in the ED - otherwise, we can plan to follow-up as scheduled. Please call with any further questions or concerns, but can continue to monitor for now. Elena Watkins APRN.LIZET DexterKeila LPN 01/04/2024 4:16 PM Signed Attempted to contact patient however no answer. This Nurse left a voice message requesting a return call, providing our phone number. Keila Renteria LPN January 04, 2024 4:16 PM Keila Renteria LPN 01/05/2024 3:35 PM Signed This Nurse spoke to patient per below. Patient and spouse have several other questions/concerns. Patient admits that he DOES sleep on same side. Patient states he was told after surgery that would be ok. Patient and spouse states that the swelling has gotten worse within the last two days as well as there is a hardness that has developed over the last few days compared to the squishiness of skin/tissue. This Nurse provided [facility] phone number to send a picture. Patient asking if Tramadol can be refilled since he is still having pain? Pharmacy: RENAE Renteria LPN January 05, 2024 3:29 PM Elena Watkins APRN.LIZET 01/05/2024 4:10 PM Signed Photo received AND reviewed. * The above image(s) of the NECK was/were taken on 01/05/24 by the patient, for use in clinical documentation purposes only using an encrypted, [facility] approved device. All efforts were made to exclude or minimize identifying information and respect patient modesty and privacy. It is OK to sleep on that side, but that is why the swelling has increased. It will come down over some time - it does get worse before it gets better. And again, so long as there is no issue with his swallowing or breathing, it is OK to continue to monitor. Could try sleeping on other side or on back to see if that helps it come down (or even propped up just a bit if he can tolerate it). Will provide 1 refill of the tramadol to the pharmacy on file. Should be using tylenol (up to 3000mg/24 hours) as well. PDMP website checked and validated. All prescriptions have been APPROPRIATELY filled. No suspicious activity was identified. 01/05/2024 by Elena Watkins APRN.LIZET Upton, Elena Watkins APRN.Keila Hall LPN 01/06/2024 11:03 AM Signed Notified patient per below. Keila Renteria LPN January 06, 2024 11:03 AM Allergies As of Date: 01/04/2024 Noted Allergy Reaction SPIRONOLACTONE 02/03/2023 14 - Other: See Comments Comments: Dizziness and severe headaches INDOCIN (INDOMETHACIN SODIUM) 05/05/2005 6 - Diarrhea MOBIC (MELOXICAM) 08/16/2014 6 - Diarrhea Date Reviewed: 01/04/2024 Reviewed by: Urvashi Gan MA - Fully Assessed Reason for Visit: Patient Update [1234] Cmt: Swelling in the neck Primary Visit Diagnosis:Post-op pain [G89.18] Order(s):traMADol (ULTRAM) 50 mg tabletTake 1 tablet by mouth every 8 hours as needed for pain for up to 5 days.Disp: 15 tabletRfl: 0 Prescriptions as of 01/06/2024 - traMADol (ULTRAM) 50 mg tablet Take 1 tablet by mouth every 8 hours as needed for pain for up to 5 days. - acetaminophen (TYLENOL) 325 mg tablet Take by mouth. - simvastatin (ZOCOR) 20 mg tablet Take 1 tablet by mouth once daily. - polyethylene glycol 3350 17 gram packet Take 17 g by mouth once daily. Dissolve dose in 4 - 8 ounces of liquid and take as directed. - aspirin 81 mg chewable tablet Take 81 mg by mouth once daily. Patient reports taking one 81mg chewable tablet by mouth once daily. - Lactobacillus acidophilus (ACIDOPHILUS ORAL) Take 1 capsule by mouth once daily. - vitamin B complex (SUPER B COMPLEX ORAL) Take 1 tablet by mouth once daily. - Magnesium Oxide 500 mg tab Take 1 tablet by mouth once daily. - furosemide (LASIX) 40 mg tablet Take 40 mg by mouth as needed. - allopurinol (ZYLOPRIM) 100 mg tablet take 1 tablet by mouth twice a day - pantoprazole DR (PROTONIX) 20 mg tablet Take 1 tablet by mouth daily before breakfast. Take on empty s (more content not included)... Normal [facility] ANES POSTPROC EVALon 024 ANES POSTPROC EVAL HNO ID: [id number] Author: KIERA DIAZ MD Service: Anesthesiology Author Type: Physician Type: Anesthesia Postprocedure Evaluation Filed: 12/27/2023 09:05 Note Text: POST ANESTHESIA EVALUATION NOTE : 1945 Procedure Summary Date: 12/26/23 Room / Location: [place] OR / [place] OR Anesthesia Start: 839 Anesthesia Stop: 1317 Procedure: ENDARTERECTOMY CAROTID ADULT (Right: Neck) Diagnosis: Bilateral extracranial carotid artery stenosis (Bilateral extracranial carotid artery stenosis [I65.23]) Surgeons: Phi Caba MD Responsible Provider: Kiera Diaz MD Anesthesia Type: general ASA Status: 4 Anesthesia Type: general Airway Type: ETT Last Vitals Vitals Value Taken Time BP 107/39 12/27/23 0900 Temp 36.1 ?C (97 ?F) 12/27/23 0700 Pulse 80 12/27/23 0905 Resp 18 12/27/23 0905 SpO2 97 % 12/27/23 0905 Vitals shown include unfiled device data. Post Anesthesia Patient Status Patient Evaluation: ICU. PACU/ICU Patient Condition: stable. Pulmonary Status: breathing comfortably on supplemental oxygen Airway Control: returned to baseline unsupported. Cardiovascular Status: stable. Pain Management: clinically adequate Postoperative Hydration: acceptable. Intraoperative Events: no significant anesthesia events Post Operative Nausea/Vomiting Status: no significant post operative nausea or vomiting Recommendation: continue current plan of care. Anesthesia Observations No Documentation SIGNATURE: Kiera Diaz MD PATIENT NAME: Shelton Fox DATE: December 27, 2023 TIME: 9:05 AM CSN: [id number] Normal [facility] Basic metabolic 2000 panelon 12-27-2023 Anion gap [Moles/Vol] 12 mmol/L Normal 8-15 [facility] Comment on above: Order Comment: Speci men Type: BLOOD SPECIMEN Ordering Facility: [facility] Address: [address] [place] [address] Performed By: #### 2 4321-2 #### [facility] CLIA [id number] [address] [place] [address] [place] Calcium [Mass/Vol] 8.9 mg/dL Normal 8.5-10.2 [facility] Comment on above: Order Comment: Speci men Type: BLOOD SPECIMEN Ordering Facility: [facility] Address: [address] [place] [address] Performed By: #### 2 4321-2 #### [facility] CLIA [id number] [address] [place] [address] [place] Chloride [Moles/Vol] 100 mmol/L Normal 98-107 [facility] Comment on above: Order Comment: Speci men Type: BLOOD SPECIMEN Ordering Facility: [facility] Address: [address] [place] [address] Performed By: #### 2 4321-2 #### [facility] CLIA [id number] [address] [place] CO2 [Moles/Vol] 21 mmol/L Low 22-30 [facility] Comment on above: Order Comment: Speci men Type: BLOOD SPECIMEN Ordering Facility: [facility] Address: [address] [place] [address] Performed By: #### 2 4321-2 #### [facility] CLIA [id number] [address] [place] Creatinine [Mass/Vol] 0.88 mg/dL Normal 0.73-1.22 [facility] Comment on above: Order Comment: Speci men Type: BLOOD SPECIMEN Ordering Facility: [facility] Address: [address] [place] [address] Performed By: #### 2 4321-2 #### [facility] CLIA [id number] [address] [place] Creatinine and Glomerular filtration rate.predicted panel (S/P/Bld) 88 mL/min/1.73m??? Normal >=60 [facility] Comment on above: Order Comment: Speci men Type: BLOOD SPECIMEN Ordering Facility: [facility] Address: [address] [place] [address] Result Comment: More mated Glomerular Filtration Rate (eGFR) is calculated using the 2020 CKD-EPI creatinine equation. This equation utilizes serum creatinine, sex, and age as parameters. The creatinine assay has traceable calibration to isotope dilution-mass spectrometry. Refer to KDIGO guidelines for clinical interpretation. In patients with unstable renal function, e.g. those with acute kidney injury, the eGFR may not accurately reflect actual GFR. Performed By: #### 2 4321-2 #### [facility] CLIA [id number] [address] [place] [address] [place] Glucose [Mass/Vol] 141 mg/dL High 74-99 [facility] Comment on above: Order Comment: Speci men Type: BLOOD SPECIMEN Ordering Facility: [facility] Address: [address] [place] [address] Result Comment: The [place] Diabetes Association (ADA) provides guidance for cutoff values for fasting glucose and random glucose. The ADA defines fasting as no caloric intake for at least 8 hours. Fasting plasma glucose results between 100 to 125 mg/dL indicate increased risk for diabetes (prediabetes). Fasting plasma glucose results greater than or equal to 126 mg/dL meet the criteria for diagnosis of diabetes. In the absence of unequivocal hyperglycemia, results should be confirmed by repeat testing. In a patient with classic symptoms of hyperglycemia or hyperglycemic crisis, random plasma glucose results greater than or equal to 200 mg/dL meet the criteria for diagnosis of diabetes. Reference: Standards of Medical Care in Diabetes 2016, [place] Diabetes Association. Diabetes Care. 2016.39(Suppl 1). Performed By: #### 2 4321-2 #### [facility] CLIA [id number] [address] [place] [address] [place] Potassium [Moles/Vol] 4.0 mmol/L Normal 3.7-5.1 [facility] Comment on above: Order Comment: Tiarra jackson Type: BLOOD SPECIMEN Ordering Facility: [facility] Address: [address] [id number] Performed By: #### 2 4321-2 #### [facility] CLIA [id number] [address] [place] [address] [place] Sodium [Moles/Vol] 133 mmol/L Low 136-144 [facility] Comment on above: Order Comment: Aimeei men Type: BLOOD SPECIMEN Ordering Facility: [facility] Address: [address], [place] [address] Performed By: #### 2 4321-2 #### [facility] CLIA [id number] [address] Urea nitrogen [Mass/Vol] 15 mg/dL Normal 9-24 [facility] Comment on above: Order Comment: Speci men Type: BLOOD SPECIMEN Ordering Facility: [facility] Address: [address] [place] [address] Performed By: #### 2 4321-2 #### [facility] CLIA [id number] [address] CBC panel Auto (Bld)on 12-26 Erythrocyte distribution width (RBC) [Ratio] 15.0 % Normal 11.5-15.0 [facility] Comment on above: Order Comment: Speci men Type: BLOOD SPECIMEN Ordering Facility: [facility] Address: [address] [place] [address] Performed By: #### 5 8410-2 #### [facility] CLIA [id number] [address] Hematocrit (Bld) [Volume fraction] 34.5 % Low 39.0-51.0 [facility] Comment on above: Order Comment: Speci men Type: BLOOD SPECIMEN Ordering Facility: [facility] Address: [address] [place] [address] Performed By: #### 5 8410-2 #### [facility] CLIA [id number] [address] Hemoglobin (Bld) [Mass/Vol] 11.3 g/dL Low 13.0-17.0 [facility] Comment on above: Order Comment: Speci men Type: BLOOD SPECIMEN Ordering Facility: [facility] Address: [facility] [place] [address] Performed By: #### 5 8410-2 #### [facility] CLIA [id number] [address] MCH (RBC) [Entitic mass] 31.0 pg Normal 26.0-34.0 [facility] Comment on above: Order Comment: Speci men Type: BLOOD SPECIMEN Ordering Facility: [facility] Address: [address] [place] [address] Performed By: #### 5 8410-2 #### [facility] CLIA [id number] [address] MCHC (RBC) [Mass/Vol] 32.8 g/dL Normal 30.5-36.0 [facility] Comment on above: Order Comment: Speci men Type: BLOOD SPECIMEN Ordering Facility: [facility] Address: [address] [place] [address] Performed By: #### 5 8410-2 #### [facility] CLIA [id number] [address] [facility] MCV (RBC) [Entitic vol] 94.5 fL Normal 80.0-100.0 [facility] Comment on above: Order Comment: Speci men Type: BLOOD SPECIMEN Ordering Facility: [facility] Address: [address] [place] [address] Performed By: #### 5 8410-2 #### [facility] CLIA [id number] [address] Nucleated RBC (Bld) [#/Vol] 10*3/uL Normal <0.01 [facility] Comment on above: Order Comment: Speci men Type: BLOOD SPECIMEN Ordering Facility: [facility] Address: [address] [place] [address] Performed By: #### 5 8410-2 #### [facility] CLIA [id number] [address] Platelet mean volume (Bld) [Entitic vol] 9.4 fL Normal 9.0-12.7 [facility] Comment on above: Order Comment: Speci men Type: BLOOD SPECIMEN Ordering Facility: [facility] Address: [address] [place] [address] Performed By: #### 5 8410-2 #### [facility] CLIA [id number] [address] Platelets (Bld) [#/Vol] 205 10*3/uL Normal 150-400 [facility] Comment on above: Order Comment: Tiarra jackson Type: BLOOD SPECIMEN Ordering Facility: [facility] Address: [address] [place] [address] Performed By: #### 5 8410-2 #### [facility] CLIA [id number] [address] RBC (Bld) [#/Vol] 3.65 10*6/uL Low 4.20-6.00 [facility] Comment on above: Order Comment: Aimeei men Type: BLOOD SPECIMEN Ordering Facility: [facility] Address: [address] [place] [address] Performed By: #### 5 8410-2 #### [facility] CLIA [id number] [address] WBC (Bld) [#/Vol] 18.08 10*3/uL High 3.70-11.00 [facility] Comment on above: Order Comment: Aimeei men Type: BLOOD SPECIMEN Ordering Facility: [facility] Address: [address] [place] [address] Performed By: #### 5 8410-2 #### [facility] CLIA [id number] [address] CNDSon 12-27-2023 CNDS HNO ID: [id number] Author: PHI CABA MD Service: Vascular Surgery Author Type: Physician Cut To Length Operator Type: Discharge Summary Filed: 12/27/2023 12:02 Note Text: ----- Attestation signed by Phi Caba MD at 12/27/2023 12:02 PM Phi Caba MD ----- DISCHARGE SUMMARY PATIENT NAME: Shelton Fox Code Status: Not on file Highest Readmission Risk Score: 13 The 30 day readmissions risk score is derived from an internally validated risk model which evaluates patient level characteristics, utilization history, medication orders and lab results up until the day of discharge. Patients with a score of 40 or above are considered highest risk for readmission. Specific patient level drivers will be listed at the bottom of the summary. Admission Information Admission Information ADMIT DATE: 12/26/2023 DISCHARGE DATE: 12/27/2023 DOCTORS AND MEDICAL TEAM: My Main [facility] Doctor: Phi Caba MD Primary Care Provider: Federico Vigil MD My Medical Team Members: Treatment Team: Attending Provider: Phi Caba MD CONDITION AT DISCHARGE: Stable REASON FOR HOSPITALIZATION: Symptomatic carotid stenosis - right SUMMARY OF HOSPITAL COURSE: Pt presented to [facility] for elective right carotid endarterectomy with extended common carotid endarterectomy performed by Dr. Caba on 12/26/2023. No perioperative complications. Patient was discharged home in stable condition on 12/27/2023 with plans to resume Eliquis later that night. OTHER PROBLEMS/DIAGNOSIS: Principal Problem: S/P carotid endarterectomy - right Active Problems: Hyperlipidemia Hypertension Symptomatic carotid artery stenosis, right OPERATIONS PERFORMED WHILE IN THE HOSPITAL: See above IMPORTANT TEST/PROCEDURES: See above TEST RESULTS NOT AVAILABLE AT THIS TIME: No pending results Discharge Disposition Discharge Disposition: Home With Self Care Activity When You Leave the Hospital Lifting is restricted to 10 pounds for two weeks. May bathe and shower May use stairs No driving until cleared by surgeon. No exercise for: 7 days No swimming or hot tubs for two weeks. Diet Instructions Resume your pre-hospital diet For Pain When You Leave the Hospital If you become constipated, you may use any bhtl-azg-qvyyjuk treatment such as Milk of Magnesia, Sennakot, Prune Juice, Suppositories, etc. in addition to the stool softener/fiber supplement No alcohol or driving while on pain medication Use acetaminophen (Tylenol) as recommended on the bottle Use the dispensed medication (see prescription) You should use an chiy-bpb-shapxgf stool softener (Docusate sodium) and/or a fiber supplement (Metamucil, Fiber Con) every day while taking prescribed pain medication Wound/Surgical Site Care Leave open to air Wash your hands frequently, especially before touching your incision, after using restroom and before eating You may experience mild swelling and bruising around surgical site. It may feel thickened and raised as well. Monitor closely and if swelling is increasing, call surgeon. Your incision has skin glue. It will peel off on its own. It can get wet Call Your Doctor If There is severe pain at the operative site You have a severe headache You have lightheadedness, fainting, or confusion You have persistent nausea/vomiting over 24 hours You have persistent or heavy bleeding You have redness, swelling, pus or drainage from the wound You have weakness or numbness of arm or leg, change in vision, or difficulty speaking. Your temperature is greater than 101F Follow Up Appointments Follow-Up Appointment 01/26/24 at 1030 AM When: In: Patient/Parents to call for appointment?: Scheduled Phi Caba MD [phone] 1 [facility] [address] [facility] [address] PCP Requested Referral Additional Provider to Provider Information: Treatment Team: Attending Provider: Phi Caba MD Transitions of Care Critical Issues: SPECIALIST FOLLOW-UP: Vascular LABS AND PROCEDURES PENDING AT DISCHARGE: No pending results. FOLLOW-UP APPOINTMENTS ALREADY SCHEDULED WITH A [facility] PROVIDER: Future Appointments Date Time Provider Department Center 01/04/2024 3:00 PM Timothy Wakler MD [facility] 01/20/2024 9:00 AM Federico Vigil MD [facility] 01/23/2024 8:00 AM [facility] [place] 01/26/2024 10:30 AM [facility]i [facility]aba [facility] 04/23/2024 8:00 AM [facility] [place] 04/23/2024 8:30 AM David Lundberg [place] 100e ALLERGIES Allergen Reactions Spironolactone Other: See Comments Dizziness and severe headaches Indocin [Indomethac* Diarrhea Mobic [Meloxicam] Diarrhea DISCHARGE MEDICATION: Medication List START taking these medications traMADol 50 mg tablet Commo (more content not included)... Normal [facility] ANES PRE-OPon 12-26-2023 ANES PRE-OP HNO ID: [id number] Author: KIERA DIAZ MD Service: Anesthesiology Author Type: Physician Type: Anesthesia Preprocedure Evaluation Filed: 12/26/2023 07:39 Note Text: ANESTHESIOLOGY DAY OF SURGERY NOTE : 1945 Procedure Information Date/Time: 12/26/23829 Procedure: ENDARTERECTOMY CAROTID ADULT (Right: Neck) Location: [facility] OR Surgeons: Phi Caba MD Estimated body mass index is 24.39 kg/m? as calculated from the following: Height as of 12/20/23: 177.8 cm (5' 10). Weight as of 12/20/23: 77.1 kg (170 lb). Most recent hematocrit and potassium results: Hematocrit 37.8 12/20/2023 Potassium 4.0 12/20/2023 Relevant Problems CARDIO (+) Atrial fibrillation (HCC) (+) BENIGN HYPERTENSION (+) Carotid stenosis, asymptomatic, bilateral (+) Coronary artery disease involving [place] coronary artery of [place] heart with angina pectoris (HCC) (+) Internal hemorrhoids without mention of complication (+) PAD (peripheral artery disease) (HCC) (+) Paroxysmal atrial fibrillation (HCC) GI (+) Gastroesophageal reflux disease -RENAL (+) Hepatomegaly NEURO-PSYCH (+) History of arthritis (+) History of colonic polyps (+) Status post ablation of atrial flutter PULMONARY (+) Dyspnea Other (+) Inflammatory polyarthropathy (HCC) I - PHYSICAL EVALUATION AIRWAY Patient intubated: No. Tracheostomy tube not present Mallampati: II. TM distance: >3 FB. Neck ROM: full ROM without neurological symptoms. Mouth opening: adequate. Short neck: no. Thick neck: no DENTAL Dental findings: edentulous. Dentures, upper: complete. II - ANESTHESIA PLAN ASA Score: 4 Anesthetic Plan: general Airway type: ETT NPO Status: adequate Beta Pepe Administration of chronic beta pepe medication planned. Monitoring Plan Monitoring plan: standard ASA and invasive hemodynamic monitoring. Monitoring method: arterial Line Post Procedure Analgesic Plan Postoperative analgesic plan: multimodal analgesia and go to ICU. Informed Consent Anesthetic risks, benefits, alternatives, personnel and consent discussed: yes. Patient / Responsible Democrat agrees to proceed: yes Patient / Surrogate agrees to blood products: Yes Significant changes in the patient condition since the History and Physical, not otherwise documented in primary service progress note: no. Potential Anesthesia issues that may suggest increased risk of complications or contraindication to planned procedure: none. Vitals Value Taken Time BP 145/66 12/26/23730 Pulse 70 12/26/23711 Resp 13 12/26/23711 Temp 35.9 ?C (96.6 ?F) 12/26/23711 SpO2 97 % 12/26/23730 Vitals shown include unfiled device data. No current facility-administered medications on file as of 12/26/2023. Outpatient Medications as of 12/26/2023 Medication Sig triamcinolone acetonide (KENALOG) 0.1 % cream APPLY TOPICALLY 1-2 TIMES DAILY NEEDED FOR ITCHING ON THE BODY. acetaminophen (TYLENOL) 325 mg tablet Take by mouth. aspirin 81 mg chewable tablet Take 81 mg by mouth once daily. Patient reports taking one 81mg chewable tablet by mouth once daily. Lactobacillus acidophilus (ACIDOPHILUS ORAL) Take 1 capsule by mouth once daily. vitamin B complex (SUPER B COMPLEX ORAL) Take 1 tablet by mouth once daily. Magnesium Oxide 500 mg tab Take 1 tablet by mouth once daily. furosemide (LASIX) 40 mg tablet Take 40 mg by mouth as needed. allopurinol (ZYLOPRIM) 100 mg tablet take 1 tablet by mouth twice a day pantoprazole DR (PROTONIX) 20 mg tablet Take 1 tablet by mouth daily before breakfast. Take on empty stomach, 1/2 hr before meal. carvedilol (COREG) 6.25 mg tablet Take 1 tablet by mouth twice daily. multivit with minerals/lutein (MULTIVITAMIN 50 PLUS ORAL) Take 1 tablet by mouth once daily. Melatonin 5 mg cap Take 5 mg by mouth at bedtime as needed. docusate sodium (DULCOLAX STOOL SOFTENER, DSS, ORAL) Take 1 tablet by mouth once daily. (Patient not taking: Reported on 11/17/2023) hydrOXYchloroQUINE (PLAQUENIL) 200 mg tablet Take 200 mg by mouth twice daily. (Patient not taking: Reported on 11/17/2023) apixaban (ELIQUIS) 5 mg tab(s) Take 5 mg by mouth twice daily. sildenafil (VIAGRA) 100 mg tablet Take 1/2 to 1 tablet by mouth 1 hour prior to anticipated intercourse. (Patient not taking: Reported on 11/17/2023) I have interviewed and examined the patient. I have reviewed the medical record and/or the pre-anesthesia evaluation, pertinent labs, and test results. This contains updated information obtained within 48 hours of Surgery/Procedure. SIGNATURE: Kiera Diaz MD PATIENT NAME: Shelton Fox DATE: December 26, 2023 TIME: 7:39 AM CSN: [id number] [facility] BRIEF OP NOTon 12-26-2023 BRIEF OP NOT HNO ID: [id number] Author: PHI CABA MD Service: Vascular Surgery Author Type: Physician Type: Brief Op Note Filed: 12/26/2023 13:39 Note Text: BRIEF OPERATIVE / PROCEDURE NOTE LOG ID: [id number] SURGERY/PROCEDURE DATE: 12/26/2023 INCISION/PROCEDURE START TIME: 9:24 AM INCISION CLOSE/PROCEDURE END TIME: 12:47 PM SURGEON(S)/PROCEDURALIST( S) AND EDGER MACHINE HELPER(S): Surgeon(s) and Role: * Phi Caba MD - Primary Physician Cut To Length Operator: Bertha Segundo PA-C; La Bang PA-C SURGERY/PROCEDURE(S): right carotid endarterectomy with extended common carotid endarterectomy ANESTHESIA: General FINDINGS: good flow post procedure ESTIMATED BLOOD LOSS: per anesthesia SPECIMENS: carotid plaque COMPLICATIONS: None CLOSURE TECHNIQUE: Primary PRE-OP/PRE-PROCEDURE DIAGNOSIS: symptomatic right ICA stenosis POST-OP/POST-PROCEDURE DIAGNOSIS: Same as Preop SIGNATURE: Phi Caba MD PATIENT NAME: Shelton Fox DATE: December 26, 2023 TIME: 1:38 PM [facility] CBC panel Auto (Bld)on 12-25 Erythrocyte distribution width (RBC) [Ratio] 15.0 % Normal 11.5-15.0 [facility] Comment on above: Order Comment: Speci men Type: BLOOD SPECIMEN Ordering Facility: [facility] Address: [address] [place] [address] Performed By: #### 5 8410-2 #### [facility] CLIA [id number] [address] [facility] Hematocrit (Bld) [Volume fraction] 33.8 % Low 39.0-51.0 [facility] Comment on above: Order Comment: Speci men Type: BLOOD SPECIMEN Ordering Facility: [facility] Address: [address] [place] [address] Performed By: #### 5 8410-2 #### [facility] CLIA [id number] [address] OF [place] Hemoglobin (Bld) [Mass/Vol] 11.0 g/dL Low 13.0-17.0 [facility] Comment on above: Order Comment: Speci men Type: BLOOD SPECIMEN Ordering Facility: [facility] Address: [address] [place] [address] Performed By: #### 5 8410-2 #### [facility] CLIA [id number] [address] [facility] MCH (RBC) [Entitic mass] 31.1 pg Normal 26.0-34.0 [facility] Comment on above: Order Comment: Speci men Type: BLOOD SPECIMEN Ordering Facility: [facility] Address: [address] [place] [address] Performed By: #### 5 8410-2 #### [facility] CLIA [id number] [address] [place] MCHC (RBC) [Mass/Vol] 32.5 g/dL Normal 30.5-36.0 [facility] Comment on above: Order Comment: Speci men Type: BLOOD SPECIMEN Ordering Facility: [facility] Address: [address] [place] [address] Performed By: #### 5 8410-2 #### [facility] CLIA [id number] [address] [place] MCV (RBC) [Entitic vol] 95.5 fL Normal 80.0-100.0 [facility] Comment on above: Order Comment: Speci men Type: BLOOD SPECIMEN Ordering Facility: [facility] Address: [address] [place] [address] Performed By: #### 5 8410-2 #### [facility] CLIA [id number] [address] [place] Nucleated RBC (Bld) [#/Vol] 10*3/uL Normal <0.01 [facility] Comment on above: Order Comment: Speci men Type: BLOOD SPECIMEN Ordering Facility: [facility] Address: [address] [place] [address] Performed By: #### 5 8410-2 #### [facility] CLIA [id number] [address] Platelet mean volume (Bld) [Entitic vol] 9.7 fL Normal 9.0-12.7 [facility] Comment on above: Order Comment: Speci men Type: BLOOD SPECIMEN Ordering Facility: [facility] Address: [address] [place] [address] Performed By: #### 5 8410-2 #### [facility] CLIA [id number] [address] [place] Platelets (Bld) [#/Vol] 161 10*3/uL Normal 150-400 [facility] Comment on above: Order Comment: Speci men Type: BLOOD SPECIMEN Ordering Facility: [facility] Address: [address] [place] [address] Performed By: #### 5 8410-2 #### [facility] CLIA [id number] [address] [place] RBC (Bld) [#/Vol] 3.54 10*6/uL Low 4.20-6.00 [facility] Comment on above: Order Comment: Speci men Type: BLOOD SPECIMEN Ordering Facility: [facility] Address: [address] [place] [address] [place] [address] Performed By: #### 5 8410-2 #### [facility] CLIA [id number] 1 [place] [address] [facility] [place] WBC (Bld) [#/Vol] 8.78 10*3/uL Normal 3.70-11.00 [facility] Comment on above: Order Comment: Speci men Type: BLOOD SPECIMEN Ordering Facility: [facility] Address: [address] [place] [address] Performed By: #### 5 8410-2 #### [facility] CLIA [id number] 1 [place] [address] [facility] OPERATIVE NOon 12-26-2023 OPERATIVE NO HNO ID: [id number] Author: PHI CABA MD Service: Vascular Surgery Author Type: Physician Type: Operative Report Filed: 12/30/2023 13:10 Note Text: [facility] - Operative Report SHELTON FOX Page : 1945 AGE: 78. SEX: M PATIENT TYPE: I HOSP SVC: ICU LOCATION: [facility] ATTENDING PHYSICIAN: PHI CABA CSN NUMBER: [id number] DATE OF SURGERY/PROCEDURE: 12/26/2023 INCISION/PROCEDURE START TIME: 9:24 AM INCISION CLOSE/PROCEDURE END TIME: 12:47 PM PREOPERATIVE DIAGNOSIS: Symptomatic right internal carotid artery stenosis, high- grade right common carotid artery stenosis. POSTOPERATIVE DIAGNOSIS: Symptomatic right internal carotid artery stenosis, high- grade right common carotid artery stenosis. SURGEON: Phi Caba MD EDGER MACHINE HELPER: 1. Bertha Segundo PA-C. She was present and scrubbed for the entirety of the case, no qualified residents were available. 2. La Bang PA-C. She was present and scrubbed for the entirety of the case, no qualified residents were available. SURGERY/PROCEDURE: Right carotid endarterectomy with bovine patch angioplasty. ANESTHESIA: General. INDICATION: The patient was born in 1945. 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 The patient described right eye symptoms. A CTA showed greater than 50% right internal carotid artery stenosis as well as high-grade stenosis of his right common carotid artery. The patient elected to undergo a right carotid endarterectomy, with extended endarterectomy onto the common carotid artery after the risks, benefits, alternatives were explained to him. Risks include, but not limited to bleeding, infection, hematoma, vision changes, stroke, nerve damage, restenosis, need for secondary procedure, DE, and . In addition, the patient does understand he is at high risk as he will need an extended endarterectomy to allow #1 for treatment of a high-grade common carotid artery stenosis and additionally to allow for even finding a point to clamp the artery. The patient has elected to undergo the procedure. DESCRIPTION OF PROCEDURE: The patient was taken to the operating room and placed in supine position. General anesthesia was induced. The right neck was prepped and draped in normal sterile fashion. Preoperative antibiotics were given. A [facility] approved time-out was performed. The ultrasound was used to interrogate the right internal common carotid artery in order to identify the level of significant common carotid artery stenosis to better plan our incision. An oblique incision was made in the neck, anterior to sternocleidomastoid with a scalpel and was deepened through subcutaneous tissue utilizing electrocautery. The common carotid artery was identified and was circumferentially isolated and dissected. We did carry our dissection distally. The internal and external carotid artery were identified, circumferentially isolated and dissected. The dense calcific plaque did extend for slightly further than anticipated on the internal carotid artery. However, we needed a very sufficient area in order to be able to clear the plaque effectively. The ansa cervicalis as well as the hypoglossal nerve were identified and were protected throughout the case. Once we did dissect free the internal and external carotid artery, the dissection was carried proximally. There was an area distal to his clavicle that was palpable and was felt that it would be soft and able to be clamped. This did correlate with what was seen on the ultrasound and an area that was more clear of surrounding calcific disease. As such, the dissection was carried distally along the length of the common carotid artery and cleared the common carotid artery that was associated with dense calcific plaque. Once the extended common carotid artery was dissected free, we did heparinize the patient. The ACT was kept greater than 300 throughoutthe duration of the case. The internal followed by the external common carotid arteries were clamped. A longitudinal arteriotomy was made with the scalpel, extended into the internal and common carotid artery with the Bolden scissors. The plaque in the artery was very densely calcified. An endarterectomy was performed. An eversion endarterectomy was performed with the external carotid artery. The plaque was passed off the table as a specimen. The posterior aspect of the endarterectomy was cleared. It should also be noted there was no evidence of any EEG changes when the artery was clamped proximally and distally. Once the posterior aspect of the endarterectomy site was cleared from debris, we did place 3 tacking sutures distally in the internal carotid artery. Patch angioplasty was performed with a bovine pericardial patch. This was also performed with a running suture of 6-0 Prolene. Due to the extensive length of th (more content not included)... Normal [facility] SURGICAL PATHOLOGYon 024 CASE REPORT Normal [facility] Comment on above: Order Comment: Specpapo jackson Type: TISSUE SPECIMENOrdering Facility: [facility] Address: [address] [place] [address] Result Comment: Surg ica Pathology Report Case: [id number] Authorizing Provider: Phi Caba MD Collected: 12/26/2023 09:33 AM Ordering Location: [facility] Received: 12/27/2023 08:19 AM Pathologist: Mckenna Goyal MD Specimen: Plaque, RIGHT CAROTID PLAQUE Performed By: #### S ####[facility] LABORATORYCLIA [id number] [address] STATES OF [facility] CLINICAL HISTORY Normal [facility] Comment on above: Order Comment: Tiarra jackson Type: TISSUE SPECIMENOrdering Facility: [facility] Address: [address] [place] [address] Result Comment: Pre- op diagnosis: Bilateral extracranial carotid artery stenosis [I65.23] Performed By: #### S ####[facility] LABORATORYCLIA [id number] [address] FINAL DIAGNOSIS Normal [facility] Comment on above: Order Comment: Tiarra jackson Type: TISSUE SPECIMENOrdering Facility: [facility] Address: [address] [place] [address] Result Comment: Collin varela, right carotid, endarterectomy: - Compatible with atherosclerotic plaque. Performed By: #### S ####[facility] LABORATORYCLIA [id number] [address] STATES OF [place] FINAL PERFORMING LAB Normal [facility] Comment on above: Order Comment: Speci men Type: TISSUE SPECIMENOrdering Facility: [facility] Address: [address] [place] [address] Result Comment: Diag nostic interpretation performed at [facility], [address] [place] [address] CLIA# [id number] [place] Bottom Maker: Miller Camilo M.D. Performed By: #### S ####[facility] LABORATORYCLIA [id number] [address] GROSS DESCRIPTION A. Plaque Normal [facility] Comment on above: Order Comment: Speci men Type: TISSUE SPECIMENOrdering Facility: [facility] Address: [address] [place] [address] Result Comment: Rece ived in formalin labeled right carotid plaque is a yellow-sheldon calcified tubular structure measuring 5.5 x 0.8 x 0.5 cm. Thrombi and vessel wall are not present. Fire Extinguisher Tester sections are submitted in A1 following light decalcification Gross examination performed at [facility], [address] [place] [address] CLIA#[id number] OLS December 27, 2023 1:25 PM Performed By: #### S ####[facility] LABORATORYCLIA [id number] [address] STATES OF [place] Basic metabolic 2000 panelon 12-20-2023 Anion gap [Moles/Vol] 11 mmol/L Normal 8-15 [facility] Comment on above: Order Comment: Speci men Type: BLOOD SPECIMEN [facility] Address: [address] [place] [address] Performed By: #### 2 4321-2 #### [facility] CLIA [id number] [address] [place] Calcium [Mass/Vol] 9.5 mg/dL Normal 8.5-10.2 [facility] Comment on above: Order Comment: Speci men Type: BLOOD SPECIMEN [facility] Facility[facility] Address: [address] [place] [address] Performed By: #### 2 4321-2 #### [facility] CLIA [id number] [address] [place] Chloride [Moles/Vol] 105 mmol/L Normal 98-107 [facility] Comment on above: Order Comment: Speci men Type: BLOOD SPECIMEN [facility] Address: [address] [place] [address] Performed By: #### 2 4321-2 #### [facility] CLIA [id number] [address] OF [place] CO2 [Moles/Vol] 27 mmol/L Normal 22-30 [facility] Comment on above: Order Comment: Speci men Type: BLOOD SPECIMEN [facility] Address: [address] [place] [address] Performed By: #### 2 4321-2 #### [facility] CLIA [id number] [address] [place] OF [place] Creatinine [Mass/Vol] 0.99 mg/dL Normal 0.73-1.22 [facility] Comment on above: Order Comment: Speci men Type: BLOOD SPECIMEN [facility] Facility[facility] Address: [address] [place] [address] Performed By: #### 2 4321-2 #### [facility] CLIA [id number] [address] OF [place] Creatinine and Glomerular filtration rate.predicted panel (S/P/Bld) 78 mL/min/1.73m??? Normal >=60 [facility] Comment on above: Order Comment: Speci men Type: BLOOD SPECIMEN [facility] Address: [address] [place] [address] Result Comment: More mated Glomerular Filtration Rate (eGFR) is calculated using the 2020 CKD-EPI creatinine equation. This equation utilizes serum creatinine, sex, and age as parameters. The creatinine assay has traceable calibration to isotope dilution-mass spectrometry. Refer to KDIGO guidelines for clinical interpretation. In patients with unstable renal function, e.g. those with acute kidney injury, the eGFR may not accurately reflect actual GFR. Performed By: #### 2 4321-2 #### [facility] CLIA [id number] [address] [place] [address] [place] Glucose [Mass/Vol] 76 mg/dL Normal 74-99 [facility] Comment on above: Order Comment: Specpapo jackson Type: BLOOD SPECIMEN [facility] Address: [address] [place] [address] Result Comment: The [place] Diabetes Association (ADA) provides guidance for cutoff values for fasting glucose and random glucose. The ADA defines fasting as no caloric intake for at least 8 hours. Fasting plasma glucose results between 100 to 125 mg/dL indicate increased risk for diabetes (prediabetes). Fasting plasma glucose results greater than or equal to 126 mg/dL meet the criteria for diagnosis of diabetes. In the absence of unequivocal hyperglycemia, results should be confirmed by repeat testing. In a patient with classic symptoms of hyperglycemia or hyperglycemic crisis, random plasma glucose results greater than or equal to 200 mg/dL meet the criteria for diagnosis of diabetes. Reference: Standards of Medical Care in Diabetes 2016, [place] Diabetes Association. Diabetes Care. 2016.39(Suppl 1). Performed By: #### 2 4321-2 #### [facility] CLIA [id number] [address] [place] [address] [place] Potassium [Moles/Vol] 4.0 mmol/L Normal 3.7-5.1 [facility] Comment on above: Order Comment: Tiarra jackson Type: BLOOD SPECIMEN [facility] Address: [address] [id number] Performed By: #### 2 4321-2 #### [facility] CLIA [id number] [address] [place] [address] [place] Sodium [Moles/Vol] 143 mmol/L Normal 136-144 [facility] Comment on above: Order Comment: Speci men Type: BLOOD SPECIMEN [facility] Address: [address] [place] [address] Performed By: #### 2 4321-2 #### [facility] CLIA [id number] [address] Urea nitrogen [Mass/Vol] 20 mg/dL Normal 9-24 [facility] Comment on above: Order Comment: Speci men Type: BLOOD SPECIMEN [facility] Address: [address] [place] [address] Performed By: #### 2 4321-2 #### [facility] CLIA [id number] [address] CBC panel Auto (Bld)on 12-19 Erythrocyte distribution width (RBC) [Ratio] 15.9 % High 11.5-15.0 [facility] Comment on above: Order Comment: Speci men Type: BLOOD SPECIMEN [facility] Address: [address] [place] [address] Performed By: #### 5 8410-2 #### [facility] CLIA [id number] [address] Hematocrit (Bld) [Volume fraction] 37.8 % Low 39.0-51.0 [facility] Comment on above: Order Comment: Speci men Type: BLOOD SPECIMEN [facility] Address: [address] [place] [address] Performed By: #### 5 8410-2 #### [facility] CLIA [id number] [address] OF [facility] Hemoglobin (Bld) [Mass/Vol] 12.4 g/dL Low 13.0-17.0 [facility] Comment on above: Order Comment: Speci men Type: BLOOD SPECIMEN [facility] Address: [address] [place] [address] Performed By: #### 5 8410-2 #### [facility] CLIA [id number] [address] [place] MCH (RBC) [Entitic mass] 31.0 pg Normal 26.0-34.0 [facility] Comment on above: Order Comment: Speci men Type: BLOOD SPECIMEN [facility] Address: [address] [place] [address] Performed By: #### 5 8410-2 #### [facility] CLIA [id number] [address] MCHC (RBC) [Mass/Vol] 32.8 g/dL Normal 30.5-36.0 [facility] Comment on above: Order Comment: Speci men Type: BLOOD SPECIMEN [facility] Address: [address] [place] [address] Performed By: #### 5 8410-2 #### [facility] CLIA [id number] [address] MCV (RBC) [Entitic vol] 94.5 fL Normal 80.0-100.0 [facility] Comment on above: Order Comment: Speci men Type: BLOOD SPECIMEN [facility] Address: [address] [place] [address] Performed By: #### 5 8410-2 #### [facility] CLIA [id number] [address] Nucleated RBC (Bld) [#/Vol] 10*3/uL Normal <0.01 [facility] Comment on above: Order Comment: Speci men Type: BLOOD SPECIMEN [facility] Address: [address] [place] [address] Performed By: #### 5 8410-2 #### [facility] CLIA [id number] [address] Platelet mean volume (Bld) [Entitic vol] 10.8 fL Normal 9.0-12.7 [facility] Comment on above: Order Comment: Speci men Type: BLOOD SPECIMEN [facility] Address: [address] [place] [address] Performed By: #### 5 8410-2 #### [facility] CLIA [id number] [address] Platelets (Bld) [#/Vol] 221 10*3/uL Normal 150-400 [facility] Comment on above: Order Comment: Speci men Type: BLOOD SPECIMEN [facility] Address: [address] [place] [address] Performed By: #### 5 8410-2 #### [facility] CLIA [id number] [address] OF [facility] RBC (Bld) [#/Vol] 4.00 10*6/uL Low 4.20-6.00 [facility] Comment on above: Order Comment: Speci men Type: BLOOD SPECIMEN [facility] Address: [address] [place] [address] Performed By: #### 5 8410-2 #### [facility] CLIA [id number] [address] WBC (Bld) [#/Vol] 10.60 10*3/uL Normal 3.70-11.00 [facility] Comment on above: Order Comment: Speci men Type: BLOOD SPECIMEN [facility] Address: [address] [place] [address] Performed By: #### 5 8410-2 #### [facility] CLIA [id number] [address] EKGon 12-20-2023 Electrocardiogram Ventricular Rate : 6 0 BPM Atrial Rate : 60 BPM P-R Interval : 188 ms QRS Duration : 118 ms Q-T Interval : 434 ms QTC Calculation(Bazett) : 434 ms Calculated P Plover : 31 degrees Calculated R Plover : -64 degrees Calculated T Plover : 25 degrees SINUS RHYTHM WITH OCCASIONAL PREMATURE VENTRICULAR COMPLEXES LEFT ANTERIOR FASCICULAR BLOCK NONSPECIFIC ST ABNORMALITY ABNORMAL ECG NO PREVIOUS ECGS AVAILABLE Confirmed by MD PIOTR, [facility] ([id number]) on 12/21/2023 8:25:43 AM NAME : SHELTON FOX PID : [id number] : 1945 Gender : Male Race : ORD : Procedure Date : Dec 20 2023 10:32:11 Edit Date : Dec 21 2023 08:25:44 Diagnosis: SINUS RHYTHM WITH OCCASIONAL PREMATURE VENTRICULAR COMPLEXES LEFT ANTERIOR FASCICULAR BLOCK NONSPECIFIC ST ABNORMALITY ABNORMAL ECG NO PREVIOUS ECGS AVAILABLE Confirmed by MD SALDAÑA KAMALESH ([id number]) on 12/21/2023 8:25:43 AM Test Reason : Location : 147 : [facility] Overread By : MD SALDAÑA KAMALESH Edited By : MD SALDAÑA KAMALESH Referred By : ELENA WATKINS Acquired by : HEIDY BERNSTEIN [facility] HISTORY PHYSICALon HISTORY PHYSICAL HNO ID: [id number] Author: HEIDY BERNSTEIN APRN.CNP Service: ? Author Type: Nurse Practitioner Type: H&P Filed: 12/20/2023 11:04 Note Text: HISTORY AND PHYSICAL EXAMINATION SERVICE DATE: 12/20/2023 SERVICE TIME: 11:00 AM PRIMARY CARE PHYSICIAN: Federico Vigil MD Assessment Patient has the following medical conditions which may affect judy-operative course: Carotid stenosis, asymptomatic, bilateral Surgery scheduled with Dr. Caba on 12/26/2023 Preop examination Patient has the following medical conditions which may affect judy-operative course addressed in assessment and plan today. Paroxysmal atrial fibrillation (HCC) Ablation 12/2022 Rate controlled with carvedilol Pt taking Eliquis I instructed patient to get preop instructions from surgeon and safety physician. Managed by Dr. 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 Vernon, last OV 05/19/2024 On Carvedilol, statin and ASA Cardiomyopathy, unspecified type ([facility]) ECHO 03/29/2023 CONCLUSIONS: - Exam indication: Sustained atrial fibrillation - The left ventricle is normal in size. Left ventricular systolic function is mildly decreased. EF = 50 ? 5% (2D biplane) Indeterminate left ventricular diastolic dysfunction due to >2+ MR. - The right ventricle is normal in size. Right ventricular systolic function is normal. Tricuspid annular displacement is 2.4 cm. - The left atrial cavity is moderately dilated. Arlyn 43 ml/m?. - There is moderate (2+) mitral valve regurgitation. Regurgitant orifice area (PISA) is 0.18 cm?. - Exam was compared with the prior echocardiographic exam performed on 08/31/2022 ([facility] [place]). Mild improvement in the LV systolic function, patient in sinus rhythm on todays exam. BENIGN HYPERTENSION Controlled with carvedilol, instructed to take morning of surgery Gastroesophageal reflux disease Controlled with pantoprazole, instructed to take morning of surgery Anemia Hemoglobin (g/dL) Date Value 10/26/2023 11.5 09/25/2020 13.2 Hematocrit (%) Date Value 10/26/2023 36.0 09/25/2020 41.0 WBC (k/uL) Date Value 10/26/2023 9.59 09/25/2020 8.09 CBC today in PAT Mustafa Activity Status Index: METS: Participate in moderate recreational activites, such as golf, bowling, dancing, doubles tennis, or throwing a baseball or football (6.00 METs) DASI Score: 6 Patient denies any chest pain or undue shortness of breath with the above physical activity. ARISCAT Score: Age: 51-80 Preoperative SpO2: >=96% Respiratory infection in the last month: No Preoperative anemia: No Surgical incision: peripheral Duration of surgery: >3 hrs Emergency procedure: No ARISCAT Score: 26 ANESTHESIA FINDINGS: Intubation History: No history of difficult intubation. No abnormal airway history Significant Anesthesia Considerations: Airway History: No history of difficult airway No abnormal airway history I - PHYSICAL EVALUATION AIRWAY Patient intubated: No. DENTAL Dental findings: teeth intact. Dentures, upper: complete. II - ANESTHESIA PLAN Anesthetic Plan: general Beta Pepe Monitoring Plan Post Procedure Analgesic Plan Prepared for Surgery: optimally prepared for surgery. CONSULTS: Planned Anesthetic: general The Following Tests/Procedures Have Been Initiated: Orders Placed This Encounter polyethylene glycol 3350 17 gram packet Sig: Take 17 g by mouth once daily. Dissolve dose in 4 - 8 ounces of liquid and take as directed. REASON FOR VISIT: Shelton Fox is a 78 year old male who is scheduled for Procedure(s): ENDARTERECTOMY CAROTID ADULT (Right) at the request of Phi Andres MD for routine HANDP. My final recommendation will be communicated back to the requesting physician by way of shared medical record or letter. The reason for this visit is to perform a comprehensive review of the patient's past medical history, assess their current health status and obtain any additional testing required based on anesthesia guidelines. We will also identify any potential anesthesia problems or contraindications to the planned procedure. 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 Normal [facility] PT panel Coag (PPP)on 2023 INR Coag (PPP) [Relative time] 1.2 {INR} Normal 0.9-1.3 [facility] Comment on above: Order Comment: Speci men Type: BLOOD SPECIMEN [facility] Address: [address] [place] [address] Result Comment: Dea min K Antagonist (VKA) Therapeutic Range: INR 2 to 3 (Target INR of 2.5) Note: For patients treated with VKA drugs, such as warfarin, the [place] [employer] 2012 Guideline recommends a therapeutic INR range of 2 to 3 (target INR of 2.5). This recommendation includes high-risk patients with antiphospholipid syndrome with previous arterial or venous thromboembolism, current-generation mechanical or bioprosthetic aortic heart valve replacement. Note: Patients with mechanical aortic valve replacement and additional risk factors for thromboembolic events (atrial fibrillation, previous thromboembolism, LV dysfunction, hypercoagulable conditions) or an older generation mechanical AVR (i.e., ball in-Cage) or any mechanical MVR should have a INR therapeutic range of 2.5 to 3.5 (target INR of 3). Foster ROJAS, et al. Chest 2012, 141:7S-47S Era BACA et al. [facility] 2017, 70: 252-289 Performed By: #### 3 4528-0 #### [facility] CLIA [id number] [address] [place] [address] PT Coag (PPP) [Time] 12.3 s Normal <13.1 [facility] Comment on above: Order Comment: Speci men Type: BLOOD SPECIMEN [facility] Address: [address] [place] [address] Performed By: #### 3 4528-0 #### [facility] CLIA [id number] [address] [place] [address] TYPE AND SCREEN,30 DAYon ABO A Normal [facility] Comment on above: Order Comment: Speci men Type: BLOOD SPECIMENOrdering Facility: [facility] Address: [address] [place] [address] Performed By: #### T SCR30 ####[facility] BANKCLIA [id number] [address] HISTORICAL AB SCR STATUS Negative Normal [facility] Comment on above: Order Comment: Speci men Type: BLOOD SPECIMENOrdering Facility: [facility] Address: [address] [place] [address] Performed By: #### T SCR30 ####[facility] BLO[facility] BANKCLIA [id number] [address] Rh Nom (Bld) Positive Normal [facility] Comment on above: Order Comment: Speci men Type: BLOOD SPECIMENOrdering Facility: [facility] Address: [address] [place] [address] Performed By: #### T SCR30 ####[facility] BLOOD BANKCLIA [id number] [address] CNPDarlin 12-09-2023 CNPN Telephone (AGVASACC) ----- SHELTON FOX ([id number]) 1945 M Date Time Provider Department 12/09/23 PHI CABA AGVASACC During your visit today, we recorded the following information about you: Elena Watkins APRN.CNP 12/09/2023 9:36 AM Signed Orders signed. Thank you, Elena Watkins APRN.GANG HEMSTITCHING MACHINE OPERATOR Allergies As of Date: 12/09/2023 Noted Allergy Reaction INDOCIN (INDOMETHACIN SODIUM) 05/05/2005 6 - Diarrhea MOBIC (MELOXICAM) 08/16/2014 6 - Diarrhea Date Reviewed: 12/08/2023 Reviewed by: Phi Caba MD - Fully Assessed Reason for Visit: Schedule Surgery [1330] Primary Visit Diagnosis:Bilateral extracranial carotid artery stenosis [I65.23] Order(s):SURGICAL REQUEST - ELECTIVE (02/2020) [0005920] Order #: [id number]: 1 HANDP FOR SURGERY [[id number]] Order #: [id number] COMPLETE BLOOD COUNT [SQCBC] Order #: [id number] FUTURE BASIC METABOLIC PANEL [SQBMP] Order #: [id number] FUTURE PROTHROMBIN TIME [SQPT] Order #: [id number] FUTURE ECG COMPLETE [ECG01] Order #: [id number] FUTURE TYPE AND SCREEN,30 DAY [MHIWDI18] Order #: [id number] FUTURE Prescriptions as of 12/09/2023 - aspirin 81 mg chewable tablet Take 81 mg by mouth once daily. Patient reports taking one 81mg chewable tablet by mouth once daily. - predniSONE (DELTASONE) 2.5 mg tablet Take 2.5 mg by mouth once daily. - Lactobacillus acidophilus (ACIDOPHILUS ORAL) Take 1 capsule by mouth once daily. - vitamin B complex (SUPER B COMPLEX ORAL) Take 1 tablet by mouth once daily. - docusate sodium (DULCOLAX STOOL SOFTENER, DSS, ORAL) Take 1 tablet by mouth once daily. - Magnesium Oxide 500 mg tab Take 1 tablet by mouth once daily. - furosemide (LASIX) 40 mg tablet Take 40 mg by mouth as needed. - allopurinol (ZYLOPRIM) 100 mg tablet take 1 tablet by mouth twice a day - pantoprazole DR (PROTONIX) 20 mg tablet Take 1 tablet by mouth daily before breakfast. Take on empty stomach, 1/2 hr before meal. - carvedilol (COREG) 6.25 mg tablet Take 1 tablet by mouth twice daily. - hydrOXYchloroQUINE (PLAQUENIL) 200 mg tablet Take 200 mg by mouth twice daily. - simvastatin (ZOCOR) 20 mg tablet Take 1 tablet by mouth once daily. - multivit with minerals/lutein (MULTIVITAMIN 50 PLUS ORAL) Take 1 tablet by mouth once daily. - apixaban (ELIQUIS) 5 mg tab(s) Take 5 mg by mouth twice daily. - Melatonin 5 mg cap Take 5 mg by mouth at bedtime as needed. - sildenafil (VIAGRA) 100 mg tablet Take 1/2 to 1 tablet by mouth 1 hour prior to anticipated intercourse. Meds Comments as of 07/16/2022: Pt reports no med changes in the last month 07/16/2022TP Problem List As Of Date 12/09/2023 Noted Resolved Mixed hyperlipidemia [E78.2] 05/05/2005 BENIGN HYPERTENSION [I10] 05/05/2005 GOUT NOS [M10.9] ALLERGIC RHINITIS NOS [J30.9] HEPATOMEGALY [R16.0] 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] 08/24/2006 DIVERTICULOSIS OF COLON W/O BLEED [K57.30] 08/24/2006 BENIGN NEOPLASM LG BOWEL [D12.6] 08/24/2006 Pain in limb [M79.609] 10/09/2007 10/30/2018 Disturbance of skin sensation [R20.9] 10/09/2007 10/30/2018 ANKLE ENTHESOPATHY NEC [M77.50] 07/05/2008 CONGENITAL PES PLANUS [Q66.50] 07/05/2008 Carotid stenosis, asymptomatic, bilateral [I65.*01/17/2009 Avascular necrosis (HCC) [M87.00] 08/24/2010 01/17/2023 Shoulder joint replacement 09/28/2010 Shoulder joint replacement by other means [Z96.*10/01/2010 Other physical therapy [MOX9211] 10/01/2010 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] 06/28/2011 Gastroesophageal reflux disease [K21.9] 04/27/2017 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 PAD (peripheral artery disease) (HCC) [I73.9] 05/01/2019 Atrial fibrillation (HCC) [I48.91] 08/30/2022 Ischemic cardiomyopathy [I25.5] Status post catheter ablation of atrial fibrill*12/21/2022 Paroxysmal atrial fibrillation (HCC) [I48.0] 03/28/2023 Status post ablation of atrial flutter [Z98.890*03/28/2023 Dyspnea [R06.00] 03/29/2023 Coronary artery disease involving [place] gates*05/19/2023 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] 02/03/2023 History of arthritis [Z87.39] 05/19/2023 Former smoker [Z87.891] 05/19/2023 Anemia [D64.9] 05/19/2023 Dysphagia [R13.10] 05/20/2023 History of colonic polyps [Z86.010] 05/20/2023 Cardiomyopathy, unspecified type (HCC) [I42.9] 06/22/2023 Encounter Status:Closed by ELENA WATKINS on 12/09/23 [facility] CNOVon 12-08-2023 CNOV Office Visit (TOM ANG) ----- SHELTON FOX ([id number]) 1945 M Date Time Provider Department 12/08/23 3:30 PM PHI CABA During your visit today, we recorded the following information about you: Pulse Respiration Blood pressure Weight 68/minute 16/minute 120/70 75.8 kg Height 1.778 m Phi Caba MD 12/08/2023 4:53 PM Signed Shelton Fox is a 78 year old male presents for evaluation of carotid disease. Pt was seen 11/17/23 with concerns for amarousis defined as R eye pressure and vision that turned silver and then black and lasted 20-30 min. He does have an extensive eye history and saw his opthomologist. A CTA done 05/2023 showed At least 50% stenosis of the proximal right ICA and 30% stenosis of the proximal left ICA by NASCET criteria Marked atherosclerotic calcification of the bilateral common carotid arteries with severe stenosis of the mid right common carotid artery. His CTA neck done 10/2023 was nondiagnostic due to poor timing of contrast, so it was repeated as was a carotid US and he sees me back today. He is on asa and plavix. CTA neck 11/24/23: Diffuse atherosclerotic changes along the length of the right greater than left common carotid arteries with high-grade stenosis of the proximal-mid portions on the right and mild-moderate stenosis of the mid-distal portions on the left. Moderate stenosis (50-60% right, 40-50% left) of each carotid bifurcation by NASCET criteria. His carotid US showed: R Common carotid artery: 50-99% stenosis. Elevated velocities mid vessel. Internal carotid artery: 20-39% stenosis. Findings may be underestimated due to calcified shadowing plaque from origin to proximal . L Common carotid artery: 50-99% stenosis. Elevated velocities mid vessel. Internal carotid artery: 60-79% stenosis. Unfortunately I cannot see the carotid US images due to where the study was done. We had a lengthy discussion with the pt and his as to the findings. Including the difference regarding if we consider this symptomatic or not. The degree of stenosis on each imaging and how that impacts recommendations in regards to carotid disease. The complicating factor of the significant CCA lesion on the right and how that impacts planning. He is not a TCAR candidate in my opinion due to the CCA disease. We discussed medical therapy vs TF carotid stenting vs CEA. I offered to send him to [facility] to discuss potential for TFCAS if he would like. Though it would likely require stenting all the way down the CCA for a longer distance. He declined referral. We also discussed CEA and potentially trying to do an extended endarterectomy to incorporate the CCA lesion. This is what he would like to do. He understands that it may not be possible to incorporate the lesion in the endarterectomy and he may need additional procedures. R/b/a/details of procedure and recovery discussed. SYMPTOMS: amaurosis We reviewed the symptoms of TIA/stroke including weakness or numbness in an extremity, slurred speech, facial droop, amaurosis fugax, and the pt does have any symptoms. The pt understands that he/she should call or go to the ED should any of these symptoms develop and that delay could result in stroke. We had an extensive discussion about carotid stenosis, risk factors, rationale for treatment and types of treatment including medical mgmt, carotid stent and carotid endarterectomy. Pt understands that the risk of stroke with asymptomatic CEA is 2-3%, the risk of stroke with symptomatic CEA is 3-5%, and the risk of cranial nerve injury is approx 2%. Other risks of open or endovascular treatment include but are not limited to bleeding, infection, re-stenosis, hematoma, DE, and . The pt understands that delay in treatment once it is indicated could result in stroke. PATIENT'S CURRENT TREATMENT: Aspirin, eliquis Statin: Yes Patient does not have a history of a CVA. Patient has not had previous carotid surgery RISK FACTORS: HISTORIES: PAST MEDICAL HISTORY Diagnosis Date Allergic rhinitis, cause unspecified Arthritis Atherosclerotic heart disease of [place] coronary artery without angina pectoris Atrial fibrillation [...] eluting coronary stent placement Snoring Status post cat (more content not included)... Normal [facility] 11-25-2023 [facility] Telephone ([employer]) ----- SHELTON FOX ([id number]) 1945 M Date Time Provider Department 11/25/23 PHI CABA During your visit today, we recorded the following information about you: Keila Renteria LPN 11/25/2023 12:02 PM Signed Spouse, Courtney, calling in and left message that patient had a CT scan yesterday and wants to discuss those results as well as ask, if US that is scheduled for Tuesday, November 28, 2023, is necessary? They have a high co-pay but if US will assistance and guide on additional information to help patient they will do it. Keila Renteria LPN November 25, 2023 12:02 PM Keila Renteria LPN 11/25/2023 3:53 PM Signed This Nurse spoke to Dr. Caba in regard to prior Telephone Encounter. Dr. Caba states that these test do show different things however if co-pay for CT scan on Tuesday is high it would be up to the patient to not get it. Patient has an upcoming appointment to discuss CT scan results. This Nurse returned call to patient and advised per above. Patient states he will get test scheduled on 11/28/2023. Keila Renteria LPN November 25, 2023 3:53 PM Allergies As of Date: 11/25/2023 Noted Allergy Reaction INDOCIN (INDOMETHACIN SODIUM) 05/05/2005 6 - Diarrhea MOBIC (MELOXICAM) 08/16/2014 6 - Diarrhea Date Reviewed: 11/18/2023 Reviewed by: Malathi Aldana, RT(R) - Fully Assessed Reason for Visit: Results [95] Cmt: CT scan results Prescriptions as of 11/25/2023 - aspirin 81 mg chewable tablet Take 81 mg by mouth once daily. Patient reports taking one 81mg chewable tablet by mouth once daily. - predniSONE (DELTASONE) 2.5 mg tablet Take 2.5 mg by mouth once daily. - Lactobacillus acidophilus (ACIDOPHILUS ORAL) Take 1 capsule by mouth once daily. - vitamin B complex (SUPER B COMPLEX ORAL) Take 1 tablet by mouth once daily. - docusate sodium (DULCOLAX STOOL SOFTENER, DSS, ORAL) Take 1 tablet by mouth once daily. - Magnesium Oxide 500 mg tab Take 1 tablet by mouth once daily. - furosemide (LASIX) 40 mg tablet Take 40 mg by mouth as needed. - allopurinol (ZYLOPRIM) 100 mg tablet take 1 tablet by mouth twice a day - pantoprazole DR (PROTONIX) 20 mg tablet Take 1 tablet by mouth daily before breakfast. Take on empty stomach, 1/2 hr before meal. - carvedilol (COREG) 6.25 mg tablet Take 1 tablet by mouth twice daily. - hydrOXYchloroQUINE (PLAQUENIL) 200 mg tablet Take 200 mg by mouth twice daily. - simvastatin (ZOCOR) 20 mg tablet Take 1 tablet by mouth once daily. - multivit with minerals/lutein (MULTIVITAMIN 50 PLUS ORAL) Take 1 tablet by mouth once daily. - apixaban (ELIQUIS) 5 mg tab(s) Take 5 mg by mouth twice daily. - Melatonin 5 mg cap Take 5 mg by mouth at bedtime as needed. - sildenafil (VIAGRA) 100 mg tablet Take 1/2 to 1 tablet by mouth 1 hour prior to anticipated intercourse. Meds Comments as of 07/16/2022: Pt reports no med changes in the last month 07/16/2022TP Problem List As Of Date 11/25/2023 Noted Resolved Mixed hyperlipidemia [E78.2] 05/05/2005 BENIGN HYPERTENSION [I10] 05/05/2005 GOUT NOS [M10.9] ALLERGIC RHINITIS NOS [J30.9] HEPATOMEGALY [R16.0] 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] 08/24/2006 DIVERTICULOSIS OF COLON W/O BLEED [K57.30] 08/24/2006 BENIGN NEOPLASM LG BOWEL [D12.6] 08/24/2006 Pain in limb [M79.609] 10/09/2007 10/30/2018 Disturbance of skin sensation [R20.9] 10/09/2007 10/30/2018 ANKLE ENTHESOPATHY NEC [M77.50] 07/05/2008 CONGENITAL PES PLANUS [Q66.50] 07/05/2008 Carotid stenosis, asymptomatic, bilateral [I65.*01/17/2009 Avascular necrosis (HCC) [M87.00] 08/24/2010 01/17/2023 Shoulder joint replacement 09/28/2010 Shoulder joint replacement by other means [Z96.*10/01/2010 Other physical therapy [HUT1872] 10/01/2010 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] 06/28/2011 Gastroesophageal reflux disease [K21.9] 04/27/2017 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 PAD (peripheral artery disease) (HCC) [I73.9] 05/01/2019 Atrial fibrillation (HCC) [I48.91] 08/30/2022 Ischemic cardiomyopathy [I25.5] Status post catheter ablation of atrial fibrill*12/21/2022 Paroxysmal atrial fibrillation (HCC) [I48.0] 03/28/2023 Status post ablation of atrial flutter [Z98.890*03/28/2023 Dyspnea [R06.00] 03/29/2023 Coronary artery disease involving [place] gates*05/19/2023 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] 02/03/2023 History of arthritis [Z87.39] 05/19/2023 Former smoker [Z87.891] 05/19/2023 Anemia [D64.9] 05/19/2023 Dysphagia [R13.10] 05/20/2023 History of colonic polyps [Z86.010] 05/20/2023 Cardiomyopathy, unspecified type (HCC) [I42.9] 06/22/2023 Encounter Status:Closed by KEILA RENTERIA on 11/25/23 Normal [facility] CT Neck W contrast Johnson 05-0 * * *Final Report* * * DATE OF EXAM: Nov 24 2023 10:23AM [facility] 0024 - CTA NECK W IVCON / PROCEDURE REASON: Amaurosis fugax * * * * Physician Interpretation * * * * CTA NECK W IVCON, CTA HEAD W IVCON HISTORY: Amaurosis fugax TECHNIQUE: CTA head and neck. 3-D post-processed images were created, reviewed and archived. MQ: CTAHN_3 Contrast: IV administration of 80 cc Omnipaque 350 Dose-Length Product (DLP): 850 mGy*cm CT Dose Reduction Employed: Automated exposure control(AEC) and iterative recon COMPARISON: CTA head/neck 11/11/2023 RESULT: BRAIN: Evaluation of the individual slices of the CTA demonstrates no evidence of an acute stroke. ASPECT Score = 10 Hemorrhage: No evidence of acute intracranial hemorrhage. ECASS hemorrhagic transformation score: Not Applicable NECK: Soft tissues: Within normal limits. Spine: Alignment is normal. Mild-moderate spondylosis. Lungs: The imaged lungs are clear. CT ARTERIOGRAM: EXTRACRANIAL CIRCULATION: Aortic arch and branch vessels: Conventional 3-vessel arch branch anatomy. Diffuse eccentric calcified atherosclerotic changes throughout the imaged arch, proximal descending thoracic aorta and arch branch vessel origins with areas of mild stenosis involving the right brachiocephalic and left subclavian arteries. Carotid Stenosis: Right Common: Diffuse eccentric atherosclerotic changes along the length of the common carotid artery with segmental high-grade stenosis along the proximal-mid portions. Right Internal Carotid Plaque: Moderate smooth eccentric mixed plaque formation. Right Internal Carotid Stenosis (% by NASCET Criteria): 50-60% Left Common: Diffuse eccentric atherosclerotic changes resulting in mild-moderate stenosis of the distal segments. Left Internal Carotid Plaque: Mild smooth eccentric predominantly calcified plaque formation. Left Internal Carotid Stenosis (% by NASCET Criteria): 40-50% Cervical Vertebral Arteries: Localized atherosclerotic changes at the origin of each vertebral artery with at least mild stenosis bilaterally. Patency: Bilateral Dominance: Left INTRACRANIAL CIRCULATION: Anterior circulation: Diffuse eccentric/circumferential atherosclerotic calcification throughout each carotid siphon with mild stenosis at each paraclinoid segment. Distal ICAs remain patent. ACAs and MCAs are normal in caliber. Left dominant A1 segment. Posterior circulation: configuration of the right MRI CT TECH with hypoplastic right P1 segment. The nondominant right vertebral artery terminates predominantly as the right PICA with absent versus markedly hypoplastic distal V4 segment to the vertebrobasilar junction. Distal vertebral arteries, basilar trunk and associate manager are normal in caliber. No vessel cut off, filling defect, significant focal narrowing, or evidence of aneurysm. Opacified dural venous sinuses and major deep and superficial draining veins are patent. Autism Specialist (topogram) images: No additional findings. DIVISION OF RADIOLOGY Provider, [facility] - 11/24/2023 * * *Final Report* * * DATE OF EXAM: Nov 24 2023 10:23AM [facility] 0024 - CTA NECK W IVCON / PROCEDURE REASON: Amaurosis fugax * * * * Physician Interpretation * * * * CTA NECK W IVCON, CTA HEAD W IVCON HISTORY: Amaurosis fugax TECHNIQUE: CTA head and neck. 3-D post-processed images were created, reviewed and archived. MQ: CTAHN_3 Contrast: IV administration of 80 cc Omnipaque 350 Dose-Length Product (DLP): 850 mGy*cm CT Dose Reduction Employed: Automated exposure control(AEC) and iterative recon COMPARISON: CTA head/neck 11/11/2023 RESULT: BRAIN: Evaluation of the individual slices of the CTA demonstrates no evidence of an acute stroke. ASPECT Score = 10 Hemorrhage: No evidence of acute intracranial hemorrhage. ECASS hemorrhagic transformation score: Not Applicable NECK: Soft tissues: Within normal limits. Spine: Alignment is normal. Mild-moderate spondylosis. Lungs: The imaged lungs are clear. CT ARTERIOGRAM: EXTRACRANIAL CIRCULATION: Aortic arch and branch vessels: Conventional 3-vessel arch branch anatomy. Diffuse eccentric calcified atherosclerotic changes throughout the imaged arch, proximal descending thoracic aorta and arch branch vessel origins with areas of mild stenosis involving the right brachiocephalic and left subclavian arteries. Carotid Stenosis: Right Common: Diffuse eccentric atherosclerotic changes along the length of the common carotid artery with segmental high-grade stenosis along the proximal-mid portions. Right Internal Carotid Plaque: Moderate smooth eccentric mixed plaque formation. Right Internal Carotid Stenosis (% by NASCET Criteria): 50-60% Left Common: Diffuse eccentric atherosclerotic changes resulting in mild-moderate stenosis of the distal segments. Left Internal Carotid Plaque: Mild smooth eccentric predominantly calcified plaque formation. Left Internal Carotid Stenosis (% by NASCET Criteria): 40-50% Cervical Vertebral Arteries: Localized atherosclerotic changes at the origin of each vertebral artery with at least mild stenosis bilaterally. Patency: Bilateral Dominance: Left INTRACRANIAL CIRCULATION: Anterior circulation: Diffuse eccentric/circumferential atherosclerotic calcification throughout each carotid siphon with mild stenosis at each paraclinoid segment. Distal ICAs remain patent. ACAs and MCAs are normal in caliber. Left dominant A1 segment. Posterior circulation: configuration of the right MRI CT TECH with hypoplastic right P1 segment. The nondominant right vertebral artery terminates predominantly as the right PICA with absent versus markedly hypoplastic distal V4 segment to the vertebrobasilar junction. Distal vertebral arteries, basilar trunk and associate manager are normal in caliber. No vessel cut off, filling defect, significant focal narrowing, or evidence of aneurysm. Opacified dural venous sinuses and major deep and superficial draining veins are patent. Autism Specialist (topogram) images: No additional findings. IMPRESSION IMPRESSION: Diffuse eccentric atherosclerotic changes involving the aortic arch and arch branch vessels with areas of mild stenosis involving the right brachiocephalic and left subclavian arteries. Diffuse atherosclerotic changes along the length of the right greater than left common carotid arteries with high-grade stenosis of the proximal-mid portions on the right and mild-moderate stenosis of the mid-distal portions on the left. Moderate stenosis (50-60% right, 40-50% left) of each carotid bifurcation by NASCET criteria. Patent vertebral arteries (left dominant with at least mild stenosis at each origin. No intracranial large vessel occlusion or high-grade stenosis. Arterial blood flow was measured to detect acute large vessel occlusion by computer aided detection software: Not Performed. Feather Drying Machine Operator: [facility]evorah Transcribe Date/Time: Nov 24 2023 12:04P Dictated by : KARINA JARRELL MD This examination was interpreted and the report reviewed and electronically signed by: KARINA JARRELL MD on Nov 24 2023 12:10PM [facility] CTA Head Arteries W contrast Johnson 11-24-2023 * * *Final Report* * * DATE OF EXAM: Nov 24 2023 10:23AM [facility] 0022 - CTA HEAD W IVCON / PROCEDURE REASON: Occlusion and stenosis of unspecified carotid artery * * * * Physician Interpretation * * * * CTA NECK W IVCON, CTA HEAD W IVCON HISTORY: Amaurosis fugax TECHNIQUE: CTA head and neck. 3-D post-processed images were created, reviewed and archived. MQ: CTAHN_3 Contrast: IV administration of 80 cc Omnipaque 350 Dose-Length Product (DLP): 850 mGy*cm CT Dose Reduction Employed: Automated exposure control(AEC) and iterative recon COMPARISON: CTA head/neck 11/11/2023 RESULT: BRAIN: Evaluation of the individual slices of the CTA demonstrates no evidence of an acute stroke. ASPECT Score = 10 Hemorrhage: No evidence of acute intracranial hemorrhage. ECASS hemorrhagic transformation score: Not Applicable NECK: Soft tissues: Within normal limits. Spine: Alignment is normal. Mild-moderate spondylosis. Lungs: The imaged lungs are clear. CT ARTERIOGRAM: EXTRACRANIAL CIRCULATION: Aortic arch and branch vessels: Conventional 3-vessel arch branch anatomy. Diffuse eccentric calcified atherosclerotic changes throughout the imaged arch, proximal descending thoracic aorta and arch branch vessel origins with areas of mild stenosis involving the right brachiocephalic and left subclavian arteries. Carotid Stenosis: Right Common: Diffuse eccentric atherosclerotic changes along the length of the common carotid artery with segmental high-grade stenosis along the proximal-mid portions. Right Internal Carotid Plaque: Moderate smooth eccentric mixed plaque formation. Right Internal Carotid Stenosis (% by NASCET Criteria): 50-60% Left Common: Diffuse eccentric atherosclerotic changes resulting in mild-moderate stenosis of the distal segments. Left Internal Carotid Plaque: Mild smooth eccentric predominantly calcified plaque formation. Left Internal Carotid Stenosis (% by NASCET Criteria): 40-50% Cervical Vertebral Arteries: Localized atherosclerotic changes at the origin of each vertebral artery with at least mild stenosis bilaterally. Patency: Bilateral Dominance: Left INTRACRANIAL CIRCULATION: Anterior circulation: Diffuse eccentric/circumferential atherosclerotic calcification throughout each carotid siphon with mild stenosis at each paraclinoid segment. Distal ICAs remain patent. ACAs and MCAs are normal in caliber. Left dominant A1 segment. Posterior circulation: configuration of the right MRI CT TECH with hypoplastic right P1 segment. The nondominant right vertebral artery terminates predominantly as the right PICA with absent versus markedly hypoplastic distal V4 segment to the vertebrobasilar junction. Distal vertebral arteries, basilar trunk and associate manager are normal in caliber. No vessel cut off, filling defect, significant focal narrowing, or evidence of aneurysm. Opacified dural venous sinuses and major deep and superficial draining veins are patent. Autism Specialist (topogram) images: No additional findings. DIVISION OF RADIOLOGY Provider, [facility] - 11/24/2023 * * *Final Report* * * DATE OF EXAM: Nov 24 2023 10:23AM [facility] 0022 - CTA HEAD W IVCON / PROCEDURE REASON: Occlusion and stenosis of unspecified carotid artery * * * * Physician Interpretation * * * * CTA NECK W IVCON, CTA HEAD W IVCON HISTORY: Amaurosis fugax TECHNIQUE: CTA head and neck. 3-D post-processed images were created, reviewed and archived. MQ: CTAHN_3 Contrast: IV administration of 80 cc Omnipaque 350 Dose-Length Product (DLP): 850 mGy*cm CT Dose Reduction Employed: Automated exposure control(AEC) and iterative recon COMPARISON: CTA head/neck 11/11/2023 RESULT: BRAIN: Evaluation of the individual slices of the CTA demonstrates no evidence of an acute stroke. ASPECT Score = 10 Hemorrhage: No evidence of acute intracranial hemorrhage. ECASS hemorrhagic transformation score: Not Applicable NECK: Soft tissues: Within normal limits. Spine: Alignment is normal. Mild-moderate spondylosis. Lungs: The imaged lungs are clear. CT ARTERIOGRAM: EXTRACRANIAL CIRCULATION: Aortic arch and branch vessels: Conventional 3-vessel arch branch anatomy. Diffuse eccentric calcified atherosclerotic changes throughout the imaged arch, proximal descending thoracic aorta and arch branch vessel origins with areas of mild stenosis involving the right brachiocephalic and left subclavian arteries. Carotid Stenosis: Right Common: Diffuse eccentric atherosclerotic changes along the length of the common carotid artery with segmental high-grade stenosis along the proximal-mid portions. Right Internal Carotid Plaque: Moderate smooth eccentric mixed plaque formation. Right Internal Carotid Stenosis (% by NASCET Criteria): 50-60% Left Common: Diffuse eccentric atherosclerotic changes resulting in mild-moderate stenosis of the distal segments. Left Internal Carotid Plaque: Mild smooth eccentric predominantly calcified plaque formation. Left Internal Carotid Stenosis (% by NASCET Criteria): 40-50% Cervical Vertebral Arteries: Localized atherosclerotic changes at the origin of each vertebral artery with at least mild stenosis bilaterally. Patency: Bilateral Dominance: Left INTRACRANIAL CIRCULATION: Anterior circulation: Diffuse eccentric/circumferential atherosclerotic calcification throughout each carotid siphon with mild stenosis at each paraclinoid segment. Distal ICAs remain patent. ACAs and MCAs are normal in caliber. Left dominant A1 segment. Posterior circulation: configuration of the right MRI CT TECH with hypoplastic right P1 segment. The nondominant right vertebral artery terminates predominantly as the right PICA with absent versus markedly hypoplastic distal V4 segment to the vertebrobasilar junction. Distal vertebral arteries, basilar trunk and associate manager are normal in caliber. No vessel cut off, filling defect, significant focal narrowing, or evidence of aneurysm. Opacified dural venous sinuses and major deep and superficial draining veins are patent. Autism Specialist (topogram) images: No additional findings. IMPRESSION IMPRESSION: Diffuse eccentric atherosclerotic changes involving the aortic arch and arch branch vessels with areas of mild stenosis involving the right brachiocephalic and left subclavian arteries. Diffuse atherosclerotic changes along the length of the right greater than left common carotid arteries with high-grade stenosis of the proximal-mid portions on the right and mild-moderate stenosis of the mid-distal portions on the left. Moderate stenosis (50-60% right, 40-50% left) of each carotid bifurcation by NASCET criteria. Patent vertebral arteries (left dominant with at least mild stenosis at each origin. No intracranial large vessel occlusion or high-grade stenosis. Arterial blood flow was measured to detect acute large vessel occlusion by computer aided detection software: Not Performed. Feather Drying Machine Operator: [facility]ITALDevorah Transcribe Date/Time: Nov 24 2023 12:04P Dictated by : KARINA JARRELL MD This examination was interpreted and the report reviewed and electronically signed by: KARINA JARRELL MD on Nov 24 2023 12:10PM [facility] No Panel Informationon 11-23 IMPRESSION: Diffuse eccentric atherosclerotic changes involving the aortic arch and arch branch vessels with areas of mild stenosis involving the right brachiocephalic and left subclavian arteries. Diffuse atherosclerotic changes along the length of the right greater than left common carotid arteries with high-grade stenosis of the proximal-mid portions on the right and mild-moderate stenosis of the mid-distal portions on the left. Moderate stenosis (50-60% right, 40-50% left) of each carotid bifurcation by NASCET criteria. Patent vertebral arteries (left dominant with at least mild stenosis at each origin. No intracranial large vessel occlusion or high-grade stenosis. Arterial blood flow was measured to detect acute large vessel occlusion by computer aided detection software: Not Performed. Feather Drying Machine Operator: [facility] Transcribe Date/Time: Nov 24 2023 12:04P Dictated by : KARINA JARRELL MD This examination was interpreted and the report reviewed and electronically signed by: KARINA JARRELL MD on Nov 24 2023 12:10PM [facility] [facility] Radiology Study observation (narrative) [facility] No Panel InformationOrdered By: Tiara Provider on 11-24-2023 [facility] CNOVon 11-17-2023 CNOV Office Visit (TOM ANG) ----- SHELTON FOX ([id number]) 1945 M Date Time Provider Department 11/17/23 4:00 PM PHI CABA During your visit today, we recorded the following information about you: Pulse Blood pressure Weight Height 68/minute 130/70 75.3 kg 1.765 m Phi Caba MD 11/25/2023 3:45 PM Signed Carotid stenosisShelton Fox is a 78 year old male presents for initial evaluation of carotid disease and concerns for amarousis. The pt states that 1 week ago he complained of R eye pressure and that his vision turned silver and then it turned black. It lasted 20-30 min. There was no shade coming down. He went to his opthomologist, he has had extensive eye history. The opthomologist considered possible temporal arteritis (though labs were negative) and amarosis, and they sent him to his pcp who referred to us. Per the pt and his , they did not find plaques in his eye. Pt is prior DJW pt who was seen by me 02/2022 for 50% B ICa stenosis. He had a CTA neck 05/2023 that showed: At least 50% stenosis of the proximal right ICA and 30% stenosis of the proximal left ICA by NASCET criteria Marked atherosclerotic calcification of the bilateral common carotid arteries with severe stenosis of the mid right common carotid artery. He has a carotid US pending. He had a CTA neck 10/2023 that showed:CTA neck is nondiagnostic. Extensive atherosclerosis in bilateral common carotid arteries and proximal internal carotid arteries. Repeat CTA neck may be considered The CTA was very poorly timed for his arterial circulation. Additionally, he was recently taken off plavix the end of september after he had cardiac stents. He was resumed on asa by our office after this occurred. SYMPTOMS: Amaurosis possibly We reviewed the symptoms of TIA/stroke including weakness or numbness in an extremity, slurred speech, facial droop, and the pt denies any other symptoms. The pt understands that he/she should call or go to the ED should any of these symptoms develop and that delay could result in stroke. We had an extensive discussion about carotid stenosis, risk factors, rationale for treatment and types of treatment including medical mgmt, carotid stent and carotid endarterectomy. PATIENT'S CURRENT TREATMENT: Aspirin eliquis Statin: Yes HISTORIES: PAST MEDICAL HISTORY Diagnosis Date Allergic rhinitis, cause unspecified Arthritis Atherosclerotic heart disease of [place] coronary artery without angina pectoris Atrial fibrillation [...] ACETBLR/PROX FEM PROSTC AGRFT/ALGRFT 04/2012 Dr. Wood> [facility]. ARTHRP KNE CONDYLEANDPLATU MEDIALANDLAT COMPARTMENTS Right COLONOSCOPY FLX DX W/COLLJ SPEC WHEN PFRMD 05/[address] Mejia COLONOSCOPY SCREENING 05/20/2023 COLONOSCOPY W/BIOPSY SINGLE/MULTIPLE 08/24/2006 EGD 12/01/2020 ESOPHAGOGASTRODUODENOSCOP Y TRANSORAL DIAGNOSTIC 05/2023 EYE SURGERY HX JOINT REPLACEMENT HX LEFT HEART CATH,PERCUTANEOUS 10/06/2022 OPEN REPAIR OF ROTATOR CUFF ACUTE 10/03/2008 Rotator cuff repair-right PAST SURGICAL HISTORY OF right knee scope PAST SURGICAL HISTORY OF cataract both eyes PAST SURGICAL HISTORY OF N/A 12/20/2022 EPS with Ablation, [facility] TONSILLECTOMY HX TONSILLECTOMY PRIMARY/SECONDARY Tonsillectomy and adnoids Social History Tobacco Use Smoking status: Former Packs/day: 1.00 Years: 10.00 Additional pack years: 0.00 Total pack years: 10.00 Types: Cigarettes Quit date: 07/18/1971 Years since quittin.3 Smokeless tobacco: Never Vaping Use Vaping Use: Never used Substance Use Topics Alcohol use: Not Currently Comment: occasional Drug use: No MEDICATIONS: Current Outpatient Medications Medication Sig aspirin 81 mg chewable tablet Take 81 mg by mouth once daily. Patient reports taking one 81mg chew (more content not included)... Normal [facility] Ivette 11-11-2023 LIZETN Telephone (AGVASACC) ----- SHELTON FOX ([id number]) 1945 M Date Time Provider Department 11/11/23 ELENA WATKINS During your visit today, we recorded the following information about you: Elena Watkins APRN.GANG HEMSTITCHING MACHINE OPERATOR 11/11/2023 3:41 PM Signed Reviewed pt's CTA report - unfortunately CTA neck non-diagnostic. I called and spoke with pt AND . Pt continues to remain asymptomatic. Discussed that scan did not show current degree of carotid stenosis, and that I am unsure as to how/why. Noted that pt recently stopped plavix d/t anemia, and asked that he start baby asa for anti-platelet therapy, and asked if he could come in this coming week to discuss recent symptoms with Dr. Caba (can even review scan, even though report says nondiagnostic). Pt AND agree. Noted again that should pt have any further symptoms ---- symptoms reviewed ---- he needs to go to the ED for urgent evaluation, and both agree. Will continue current medications and add baby asa for the time being. Will see JZ next week as discussed. Pt will continue with scheduled testing (MRI) and follow-up with PCP regarding recent labs. Elena Watkins APRN.GANG HEMSTITCHING MACHINE OPERATOR Allergies As of Date: 11/11/2023 Noted Allergy Reaction INDOCIN (INDOMETHACIN SODIUM) 05/05/2005 6 - Diarrhea MOBIC (MELOXICAM) 08/16/2014 6 - Diarrhea Date Reviewed: 10/27/2023 Reviewed by: David Lundberg - Fully Assessed Reason for Visit: Results [95] Prescriptions as of 11/11/2023 - iv contrast (will be provided with radiology test) CTA Head/Neck W No IV access, insert saline lock prior to the sedation, infusion, injection for imaging exam. Discontinue saline lock post exam. If Pt. has a central line or IVAD, may access for administration according to line specific nursing protocol. Once exam is complete flush line and de-access according to line specific nursing protocol in the CT contrast administration guidelines link. - predniSONE (DELTASONE) 2.5 mg tablet Take 2.5 mg by mouth once daily. - Lactobacillus acidophilus (ACIDOPHILUS ORAL) Take 1 capsule by mouth once daily. - vitamin B complex (SUPER B COMPLEX ORAL) Take 1 tablet by mouth once daily. - docusate sodium (DULCOLAX STOOL SOFTENER, DSS, ORAL) Take 1 tablet by mouth once daily. - Magnesium Oxide 500 mg tab Take 1 tablet by mouth once daily. - furosemide (LASIX) 40 mg tablet Take 40 mg by mouth as needed. - allopurinol (ZYLOPRIM) 100 mg tablet take 1 tablet by mouth twice a day - pantoprazole DR (PROTONIX) 20 mg tablet Take 1 tablet by mouth daily before breakfast. Take on empty stomach, 1/2 hr before meal. - carvedilol (COREG) 6.25 mg tablet Take 1 tablet by mouth twice daily. - hydrOXYchloroQUINE (PLAQUENIL) 200 mg tablet Take 200 mg by mouth twice daily. - simvastatin (ZOCOR) 20 mg tablet Take 1 tablet by mouth once daily. - multivit with minerals/lutein (MULTIVITAMIN 50 PLUS ORAL) Take 1 tablet by mouth once daily. - apixaban (ELIQUIS) 5 mg tab(s) Take 5 mg by mouth twice daily. - Melatonin 5 mg cap Take 5 mg by mouth at bedtime as needed. - sildenafil (VIAGRA) 100 mg tablet Take 1/2 to 1 tablet by mouth 1 hour prior to anticipated intercourse. Meds Comments as of 07/16/2022: Pt reports no med changes in the last month 07/16/2022TP Problem List As Of Date 11/11/2023 Noted Resolved Mixed hyperlipidemia [E78.2] 05/05/2005 BENIGN HYPERTENSION [I10] 05/05/2005 GOUT NOS [M10.9] ALLERGIC RHINITIS NOS [J30.9] HEPATOMEGALY [R16.0] 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] 08/24/2006 DIVERTICULOSIS OF COLON W/O BLEED [K57.30] 08/24/2006 BENIGN NEOPLASM LG BOWEL [D12.6] 08/24/2006 Pain in limb [M79.609] 10/09/2007 10/30/2018 Disturbance of skin sensation [R20.9] 10/09/2007 10/30/2018 ANKLE ENTHESOPATHY NEC [M77.50] 07/05/2008 CONGENITAL PES PLANUS [Q66.50] 07/05/2008 Carotid stenosis, asymptomatic, bilateral [I65.*01/17/2009 Avascular necrosis (HCC) [M87.00] 08/24/2010 01/17/2023 Shoulder joint replacement 09/28/2010 Shoulder joint replacement by other means [Z96.*10/01/2010 Other physical therapy [GVT7096] 10/01/2010 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] 06/28/2011 Gastroesophageal reflux disease [K21.9] 04/27/2017 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 PAD (peripheral artery disease) (HCC) [I73.9] 05/01/2019 Atrial fibrillation (HCC) [I48.91] 08/30/2022 Ischemic cardiomyopathy [I25.5] Status post catheter ablation of atrial fibrill*12/21/2022 Paroxysmal atrial fibrillation (HCC) [I48.0] 03/28/2023 Status post ablation of atrial flutter [Z98.890*03/28/2023 Dyspnea [R06.00] 03/29/2023 Coronary artery disease involving [place] gates*05/19/2023 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 Normal [facility] CREATININE, POC (AK,MR)on Creatinine [Mass/Vol] 1.00 mg/dL 0.60 - 1.30 mg/dL [facility] eGFR (POCT) mL/min/1.73 m2 [facility] Meter ID:[id number] Location:[facility], [address] [place] [address], [address] [place] [address] POINT OF CARE [facility] CT Neck W contrast Johnson 04-2 * * *Final Report* * * DATE OF EXAM: Nov 11 2023 1:53PM [facility] 0024 - CTA NECK W IVCON / PROCEDURE REASON: multiple diagnoses dizziness/imbalance, cran * * * * Physician Interpretation * * * * EXAMINATION: CTA HEAD W IVCON, CTA NECK W IVCON HISTORY: Carotid stenosis, asymptomatic, bilateral Amaurosis fugax of right eye Posterior circulation (vision loss, dizziness/imbalance, cran TECHNIQUE: Spiral high resolution axial images were obtained through the head, neck and superior mediastinum following bolus administration of intravenous contrast for CT angiography. 3D maximum intensity projection images were created, reviewed and archived . MQ: CTAHN_4 Contrast: 100 mL Omnipaque [address] Radiation dose: Integrated Dose-Length Product (DLP) for this visit = 648 mGy*cm. CT Dose Reduction Employed: No dose reduction techniques were required COMPARISON: CTA head and neck 05/25/2023 RESULT: BRAIN: Evaluation of the individual slices of the CTA demonstrates no evidence of an acute stroke. ASPECT Score = 10 Hemorrhage: No evidence of acute intracranial hemorrhage. ECASS hemorrhagic transformation score: Not Applicable NECK: Soft tissues: The soft tissue planes are maintained throughout. No evidence of a soft tissue mass in the neck or superior mediastinum. No significant lymphadenopathy is seen. Spine: Reversal of the cervical lordosis. Moderate to severe degenerative changes are present. Lung apices: The visualized lung apices are clear. CT ARTERIOGRAM: Poor opacification of the arteries. Extracranial Circulation: Nondiagnostic. Extensive arthrosclerosis in bilateral common carotid arteries and proximal internal carotid arteries. Intracranial Circulation: Poor opacification of the intracranial arterial circulation. Pipeline Atherosclerosis of bilateral carotid siphons. Bilateral ACAs and MCAs are overall patent. Bilateral associate manager and basilar artery is grossly patent. Autism Specialist (topogram) images: No additional findings. Access Closure RADIOLOGY SYNGO Provider, [facility]11[facility]23 * * *Final Report* * * DATE OF EXAM: Nov 11 2023 1:53PM [facility] 0024 - CTA NECK W IVCON / PROCEDURE REASON: multiple diagnoses dizziness/imbalance, cran * * * * Physician Interpretation * * * * EXAMINATION: CTA HEAD W IVCON, CTA NECK W IVCON HISTORY: Carotid stenosis, asymptomatic, bilateral Amaurosis fugax of right eye Posterior circulation (vision loss, dizziness/imbalance, cran TECHNIQUE: Spiral high resolution axial images were obtained through the head, neck and superior mediastinum following bolus administration of intravenous contrast for CT angiography. 3D maximum intensity projection images were created, reviewed and archived . MQ: CTAHN_4 Contrast: 100 mL Omnipaque [address] Radiation dose: Integrated Dose-Length Product (DLP) for this visit = 648 mGy*cm. CT Dose Reduction Employed: No dose reduction techniques were required COMPARISON: CTA head and neck 05/25/2023 RESULT: BRAIN: Evaluation of the individual slices of the CTA demonstrates no evidence of an acute stroke. ASPECT Score = 10 Hemorrhage: No evidence of acute intracranial hemorrhage. ECASS hemorrhagic transformation score: Not Applicable NECK: Soft tissues: The soft tissue planes are maintained throughout. No evidence of a soft tissue mass in the neck or superior mediastinum. No significant lymphadenopathy is seen. Spine: Reversal of the cervical lordosis. Moderate to severe degenerative changes are present. Lung apices: The visualized lung apices are clear. CT ARTERIOGRAM: Poor opacification of the arteries. Extracranial Circulation: Nondiagnostic. Extensive arthrosclerosis in bilateral common carotid arteries and proximal internal carotid arteries. Intracranial Circulation: Poor opacification of the intracranial arterial circulation. Pipeline Atherosclerosis of bilateral carotid siphons. Bilateral ACAs and MCAs are overall patent. Bilateral associate manager and basilar artery is grossly patent. Autism Specialist (topogram) images: No additional findings. IMPRESSION IMPRESSION: Poor contrast opacification of the arterial circulation. CTA neck is nondiagnostic. Extensive atherosclerosis in bilateral common carotid arteries and proximal internal carotid arteries. Repeat CTA neck may be considered. Bilateral ACAs and MCAs are overall patent. Bilateral associate manager are grossly patent. Feather Drying Machine Operator: [facility] Transcribe Date/Time: Nov 11 2023 1:58P Dictated by : RIKA CHÁVEZ MD This examination was interpreted and the report reviewed and electronically signed by: RIKA CHÁVEZ MD on Nov 11 2023 2:15PM [facility] CTA HEAD W IVCONon 4 CTA HEAD W IVCON * * *Final Report* * * DATE OF EXAM: Nov 11 2023 1:53PM [facility] 0022 - CTA HEAD W IVCON / PROCEDURE REASON: multiple diagnoses dizziness/imbalance, cran * * * * Physician Interpretation * * * * EXAMINATION: CTA HEAD W IVCON, CTA NECK W IVCON HISTORY: Carotid stenosis, asymptomatic, bilateral Amaurosis fugax of right eye Posterior circulation (vision loss, dizziness/imbalance, cran TECHNIQUE: Spiral high resolution axial images were obtained through the head, neck and superior mediastinum following bolus administration of intravenous contrast for CT angiography. 3D maximum intensity projection images were created, reviewed and archived . MQ: CTAHN_4 Contrast: 100 mL Omnipaque [address] Radiation dose: Integrated Dose-Length Product (DLP) for this visit = 648 mGy*cm. CT Dose Reduction Employed: No dose reduction techniques were required COMPARISON: CTA head and neck 05/25/2023 RESULT: BRAIN: Evaluation of the individual slices of the CTA demonstrates no evidence of an acute stroke. ASPECT Score = 10 Hemorrhage: No evidence of acute intracranial hemorrhage. ECASS hemorrhagic transformation score: Not Applicable NECK: Soft tissues: The soft tissue planes are maintained throughout. No evidence of a soft tissue mass in the neck or superior mediastinum. No significant lymphadenopathy is seen. Spine: Reversal of the cervical lordosis. Moderate to severe degenerative changes are present. Lung apices: The visualized lung apices are clear. CT ARTERIOGRAM: Poor opacification of the arteries. Extracranial Circulation: Nondiagnostic. Extensive arthrosclerosis in bilateral common carotid arteries and proximal internal carotid arteries. Intracranial Circulation: Poor opacification of the intracranial arterial circulation. Pipeline Atherosclerosis of bilateral carotid siphons. Bilateral ACAs and MCAs are overall patent. Bilateral associate manager and basilar artery is grossly patent. Autism Specialist (topogram) images: No additional findings. IMPRESSION: Poor contrast opacification of the arterial circulation. CTA neck is nondiagnostic. Extensive atherosclerosis in bilateral common carotid arteries and proximal internal carotid arteries. Repeat CTA neck may be considered. Bilateral ACAs and MCAs are overall patent. Bilateral associate manager are grossly patent. Feather Drying Machine Operator: [facility] Transcribe Date/Time: Nov 11 2023 1:58P Dictated by : RIKA CHÁVEZ MD This examination was interpreted and the report reviewed and electronically signed by: RIKA CHÁVEZ MD on Nov 11 2023 2:15PM EST [id number] Normal [facility] CTA Head Arteries W contrast Johnson 11-11-2023 * * *Final Report* * * DATE OF EXAM: Nov 11 2023 1:53PM [facility] 0022 - CTA HEAD W IVCON / PROCEDURE REASON: multiple diagnoses dizziness/imbalance, cran * * * * Physician Interpretation * * * * EXAMINATION: CTA HEAD W IVCON, CTA NECK W IVCON HISTORY: Carotid stenosis, asymptomatic, bilateral Amaurosis fugax of right eye Posterior circulation (vision loss, dizziness/imbalance, cran TECHNIQUE: Spiral high resolution axial images were obtained through the head, neck and superior mediastinum following bolus administration of intravenous contrast for CT angiography. 3D maximum intensity projection images were created, reviewed and archived . MQ: CTAHN_4 Contrast: 100 mL Omnipaque [address] Radiation dose: Integrated Dose-Length Product (DLP) for this visit = 648 mGy*cm. CT Dose Reduction Employed: No dose reduction techniques were required COMPARISON: CTA head and neck 05/25/2023 RESULT: BRAIN: Evaluation of the individual slices of the CTA demonstrates no evidence of an acute stroke. ASPECT Score = 10 Hemorrhage: No evidence of acute intracranial hemorrhage. ECASS hemorrhagic transformation score: Not Applicable NECK: Soft tissues: The soft tissue planes are maintained throughout. No evidence of a soft tissue mass in the neck or superior mediastinum. No significant lymphadenopathy is seen. Spine: Reversal of the cervical lordosis. Moderate to severe degenerative changes are present. Lung apices: The visualized lung apices are clear. CT ARTERIOGRAM: Poor opacification of the arteries. Extracranial Circulation: Nondiagnostic. Extensive arthrosclerosis in bilateral common carotid arteries and proximal internal carotid arteries. Intracranial Circulation: Poor opacification of the intracranial arterial circulation. Pipeline Atherosclerosis of bilateral carotid siphons. Bilateral ACAs and MCAs are overall patent. Bilateral associate manager and basilar artery is grossly patent. Autism Specialist (topogram) images: No additional findings. Access Closure RADIOLOGY SYNGO Provider, [facility] - 11/11/2023 * * *Final Report* * * DATE OF EXAM: Nov 11 2023 1:53PM [facility] 0022 - CTA HEAD W IVCON / PROCEDURE REASON: multiple diagnoses dizziness/imbalance, cran * * * * Physician Interpretation * * * * EXAMINATION: CTA HEAD W IVCON, CTA NECK W IVCON HISTORY: Carotid stenosis, asymptomatic, bilateral Amaurosis fugax of right eye Posterior circulation (vision loss, dizziness/imbalance, cran TECHNIQUE: Spiral high resolution axial images were obtained through the head, neck and superior mediastinum following bolus administration of intravenous contrast for CT angiography. 3D maximum intensity projection images were created, reviewed and archived . MQ: CTAHN_4 Contrast: 100 mL Omnipaque [address] Radiation dose: Integrated Dose-Length Product (DLP) for this visit = 648 mGy*cm. CT Dose Reduction Employed: No dose reduction techniques were required COMPARISON: CTA head and neck 05/25/2023 RESULT: BRAIN: Evaluation of the individual slices of the CTA demonstrates no evidence of an acute stroke. ASPECT Score = 10 Hemorrhage: No evidence of acute intracranial hemorrhage. ECASS hemorrhagic transformation score: Not Applicable NECK: Soft tissues: The soft tissue planes are maintained throughout. No evidence of a soft tissue mass in the neck or superior mediastinum. No significant lymphadenopathy is seen. Spine: Reversal of the cervical lordosis. Moderate to severe degenerative changes are present. Lung apices: The visualized lung apices are clear. CT ARTERIOGRAM: Poor opacification of the arteries. Extracranial Circulation: Nondiagnostic. Extensive arthrosclerosis in bilateral common carotid arteries and proximal internal carotid arteries. Intracranial Circulation: Poor opacification of the intracranial arterial circulation. Pipeline Atherosclerosis of bilateral carotid siphons. Bilateral ACAs and MCAs are overall patent. Bilateral associate manager and basilar artery is grossly patent. Autism Specialist (topogram) images: No additional findings. IMPRESSION IMPRESSION: Poor contrast opacification of the arterial circulation. CTA neck is nondiagnostic. Extensive atherosclerosis in bilateral common carotid arteries and proximal internal carotid arteries. Repeat CTA neck may be considered. Bilateral ACAs and MCAs are overall patent. Bilateral associate manager are grossly patent. Feather Drying Machine Operator: [facility] Transcribe Date/Time: Nov 11 2023 1:58P Dictated by : RIKA CHÁVEZ MD This examination was interpreted and the report reviewed and electronically signed by: RIKA CHÁVEZ MD on Nov 11 2023 2:15PM [facility] CTA NECK W IVCONon 4 CTA NECK W IVCON * * *Final Report* * * DATE OF EXAM: Nov 11 2023 1:53PM [facility] 0024 - CTA NECK W IVCON / PROCEDURE REASON: multiple diagnoses dizziness/imbalance, cran * * * * Physician Interpretation * * * * EXAMINATION: CTA HEAD W IVCON, CTA NECK W IVCON HISTORY: Carotid stenosis, asymptomatic, bilateral Amaurosis fugax of right eye Posterior circulation (vision loss, dizziness/imbalance, cran TECHNIQUE: Spiral high resolution axial images were obtained through the head, neck and superior mediastinum following bolus administration of intravenous contrast for CT angiography. 3D maximum intensity projection images were created, reviewed and archived . MQ: CTAHN_4 Contrast: 100 mL Omnipaque [address] Radiation dose: Integrated Dose-Length Product (DLP) for this visit = 648 mGy*cm. CT Dose Reduction Employed: No dose reduction techniques were required COMPARISON: CTA head and neck 05/25/2023 RESULT: BRAIN: Evaluation of the individual slices of the CTA demonstrates no evidence of an acute stroke. ASPECT Score = 10 Hemorrhage: No evidence of acute intracranial hemorrhage. ECASS hemorrhagic transformation score: Not Applicable NECK: Soft tissues: The soft tissue planes are maintained throughout. No evidence of a soft tissue mass in the neck or superior mediastinum. No significant lymphadenopathy is seen. Spine: Reversal of the cervical lordosis. Moderate to severe degenerative changes are present. Lung apices: The visualized lung apices are clear. CT ARTERIOGRAM: Poor opacification of the arteries. Extracranial Circulation: Nondiagnostic. Extensive arthrosclerosis in bilateral common carotid arteries and proximal internal carotid arteries. Intracranial Circulation: Poor opacification of the intracranial arterial circulation. Pipeline Atherosclerosis of bilateral carotid siphons. Bilateral ACAs and MCAs are overall patent. Bilateral associate manager and basilar artery is grossly patent. Autism Specialist (topogram) images: No additional findings. IMPRESSION: Poor contrast opacification of the arterial circulation. CTA neck is nondiagnostic. Extensive atherosclerosis in bilateral common carotid arteries and proximal internal carotid arteries. Repeat CTA neck may be considered. Bilateral ACAs and MCAs are overall patent. Bilateral associate manager are grossly patent. Feather Drying Machine Operator: [facility] Transcribe Date/Time: Nov 11 2023 1:58P Dictated by : RIKA CHÁVEZ MD This examination was interpreted and the report reviewed and electronically signed by: RIKA CHÁVEZ MD on Nov 11 2023 2:15PM EST [id number] Normal [facility] No Panel Informationon 11-10 IMPRESSION: Poor contrast opacification of the arterial circulation. CTA neck is nondiagnostic. Extensive atherosclerosis in bilateral common carotid arteries and proximal internal carotid arteries. Repeat CTA neck may be considered. Bilateral ACAs and MCAs are overall patent. Bilateral associate manager are grossly patent. Feather Drying Machine Operator: PSCB Transcribe Date/Time: Nov 11 2023 1:58P Dictated by : RIKA CHÁVEZ MD This examination was interpreted and the report reviewed and electronically signed by: RIKA CHÁVEZ MD on Nov 11 2023 2:15PM EST [facility] Radiology Study observation (narrative) [facility] No Panel InformationOrdered By: Ccf Provider on 11-11-2023 [facility] C-REACTIVE PROTEINon 024 CRP [Mass/Vol] 1.0 mg/dL High NINF - 0.9 mg/dL [facility] CNPNon 11-10-2023 CNPN Telephone (AGVASACC) ----- SHELTON FOX ([id number]) 1945 M Date Time Provider Department 11/10/23 [facility] During your visit today, we recorded the following information about you: Keila Renteria LPN 11/10/2023 4:55 PM Signed Spouse, Courtney, calling in and left message on Nurse's Line that patient recently has had symptoms of vision loss. PCP is Ordering blood work and ultrasound. Spouse is asking from vascular standpoint, how do they proceed? Keila Renteria LPN November 10, 2023 4:55 PM Elena Watkins APRN.GANG HEMSTITCHING MACHINE OPERATOR 11/11/2023 8:26 AM Signed Well, upon looking at his chart, it looks like he was already advised to go to the ED, which is the right thing to do, because if he is having symptoms, he does need urgent evaluation and treatment..... That said, if he's not CURRENTLY having symptoms, I guess we can order a CTA to be done outpt STAT, which we can schedule, but they may need to be a little flexible with where to get the scan done (will be scheduled next available), unless pt does just want to go to the nearest ED for a scan...... I've placed an order for the STAT CTA, so pt need to let us know what he'd like to do -- we can get that scheduled if that's what he'd prefer. Thanks, Elena Watkins APRN.Keila Hall LPN 11/11/2023 9:10 AM Signed This Nurse spoke to patient. Patient is resistant to going to Emergency Department when speaking with this Nurse. Patient reiterates that he is getting an MRI on Tuesday and US which was Ordered for neck pain. Patient states he feels this is his carotids due to issues he has been experiencing. This Nurse explained that the MRI nor US is not what we need for vascular and CAT is being Ordered STAT. Patient states he is currently not having vision loss or experiencing any symptoms of vision loss. Patient verbalizes that he doesn't know what he should do and for this Nurse to contact his who is a Nurse. This Nurse contacted spouse, Ry, but no answer. This Nurse left a voice message requesting a return call, providing our phone number. As this Nurse was reporting to SOLID PROPELLANT PROCESSOR at the same time spouse, Ry, returned call and SOLID PROPELLANT PROCESSOR spoke to spouse. Keila Renteria LPN November 11, 2023 9:07 AM Elena Watkins APRN.LIZET 11/11/2023 10:06 AM Signed I spoke with pt's . Reports vision loss happened a couple of days ago, lasted somewhere between 10-20 minutes and resolved. Has not happened again. Went to see eye doctor. Eye doctor was very concerned and advised ED; pt declined. Eye doc phoned PCP to discuss. PCP advised ED; pt declined. PCP ordered outpt testing and to call Vascular. Pt has Carotid US and MRI (has chronic neck issues and is following with ortho not associated with [facility] in [place]) scheduled on Tuesday. Pt believes MRI should show what needs to be evaluated and continues to decline ED. Has not had any repeat vision loss. Continues to report dizziness, which apparently has been an ongoing issue since last Fall --- note CTA done in May at which time R ICA 50% stenosis). Pt/ report compliant with Eliquis (which pt takes for a-fib). --per chart review, appear plavix was discontinued per heme/onc for some ongoing anemia issues. Discussed that recommend ED, though would consider stat CTA h/n outpt since not CURRENTLY symptomatic, noting that if ANY symptoms recur, he should go the ED immediately for attention/evaluation/poss ible intervention. Ry notes that she may try to convince pt to go to the ED now, but she's not hopeful that he will agree, and would like to schedule CTA and that she will get him to wherever they can do the scan. Will proceed with scheduling CTA head/neck. Elean Watkins APRN.GANG HEMSTITCHING MACHINE OPERATOR Allergies As of Date: 11/10/2023 Noted Allergy Reaction INDOCIN (INDOMETHACIN SODIUM) 05/05/2005 6 - Diarrhea MOBIC (MELOXICAM) 08/16/2014 6 - Diarrhea Date Reviewed: 10/27/2023 Reviewed by: David Lundberg - Fully Assessed Reason for Visit: Patient Update [1234] Cmt: Vision loss Primary Visit Diagnosis:Carotid stenosis, asymptomatic, bilateral [I65.23] Other Visit Diagnosis:Amaurosis fugax of right eye [G45.3] Order(s):CTA HEAD W IVCON [[id number]] Order #: [id number] FUTURE iv contrast (will be provided with radiology test)CTA Head/Neck W No IV access, insert saline lock prior to the sedation, infusion, injection for imaging exam. Discontinue saline lock post exam. If Pt. has a central line or IVAD, may access for administration according to line specific nursing protocol. Once exam is complete flush line and de-access according to line specific nursing protocol in the CT contrast administration guidelines link.Disp: 1 EachRfl: 0 CREATININE BLD [SQCRET] Order #: [id number] FUTURE CTA NECK W IVCON [[id number]] Order #: [id number] FUTURE Prescriptions as of 11/11/2023 - iv contrast (will be provided with radiolo (more content not included)... Normal [facility] CRP [Mass/Vol]on 11-10-2023 Interpretation and review of laboratory results Abnormal [facility] ESR Westergren method (Bld) [Velocity]on 11-10-2023 ESR (Bld) [Velocity] 42 mm/h High [facility] Interpretation and review of laboratory results Abnormal [facility] Absolute lymphocyte countOrd ered By: Radha Seo on 09-23-2023 Lymphocytes Auto (Unsp spec) [#/Vol] 1.68 10*3/uL 0.83-4.51 [facility] Automated lymphocyte count a s percentage of total leukocytesOrdered By: Radha Seo on 09-23-2023 Lymphocytes/100 WBC Auto (Unsp spec) 15.4 % 19-41 [facility] Basophil percentageOrdered B y: Radha Seo on 09-23-2023 Basophils/100 WBC (Bld) 0.0 % 0-1 [facility] Bilirubin [Mass/Vol] 1.40 mg/dL 0.20-1.00 [facility] Comment on above: For patients on eltr ombopag therapy, use of Dimension [place] TBIL is not recommended. Chloride [Moles/Vol] 102 mmol/L 98-107 [facility] Eosinophils/100 WBC (Bld) 0.5 % 0-5 [facility] Glucose [Mass/Vol] 120 mg/dL 74-106 [facility] Comment on above: Fasting Glucose resu lt from 100 to 125 mg/dL suggests IMPAIRED HOMEOSTASIS per A.D.A. criteria. Hemoglobin (Bld) [Mass/Vol] 12.0 g/dL 13.0-16.5 [facility] Monocytes/100 WBC (Bld) 6.6 % 0-10 [facility] Neutrophils (Bld) [#/Vol] 8.4 10*3/uL 2.0-7.7 [facility] Neutrophils/100 WBC (Bld) 76.8 % 47-70 [facility] Potassium [Moles/Vol] 4.7 mmol/L 3.5-5.1 [facility] Protein [Mass/Vol] 6.2 g/dL 6.4-8.2 [facility] Sodium [Moles/Vol] 134 mmol/L 136-145 [facility] WBC (Bld) [#/Vol] 10.9 10*3/uL 4.4-11.0 [facility] Determination of erythrocyte mean corpuscular volume (MCV)Ordered By: Radha Seo on 09-23-2023 MCV (RBC) [Entitic vol] 88.6 fL 80-94 [facility] Erythrocyte distribution wid th ratioOrdered By: Radha Seo on 09-23-2023 Erythrocyte distribution width (RBC) [Ratio] 18.5 % 11.6-14.6 [facility] Erythrocyte distribution wid th standard deviationOrdered By: Radha Seo on 09-23-2023 Erythrocyte distribution width (RBC) [Entitic vol] 59.6 fL 35.1-43.9 [facility] Hematocrit Auto (Bld) [Volum e fraction]Ordered By: Radha Soe on 09-23-2023 Hematocrit (Bld) [Volume fraction] 38.0 % 40-54 [facility] Immature granulocytes/100 WB C Auto (Bld)Ordered By: Radhayon Seo on 09-23-2023 Immature granulocytes/100 WBC (Bld) 0.700 % 0.0-0.9 [facility] Comment on above: IG% - Immature Granu locytes (promyelocytes, myelocytes and metamyelocytes) > 1% indicates that a LEFT SHIFT is Present. Laboratory - Chemistry and C hemistry - challengeOrdered By: Radha Seo on 09-23-2023 Albumin/Globulin [Mass ratio] 1.2 {ratio} 0.9-2.4 [facility] ALP [Catalytic activity/Vol] 81 U/L 45-117 [facility] ALT [Catalytic activity/Vol] 73 U/L 16-61 [facility] CO2 [Moles/Vol] 27.0 mmol/L 21.0-32.0 [facility] Globulin (S) [Mass/Vol] 2.8 g/dL 2.2-4.2 [facility] Urea nitrogen/Creatinine [Mass ratio] 24.4 mg/mg 10-20 [facility] Laboratory - Hematology and Cell countsOrdered By: Radha Seo on 09-23-2023 MCH (RBC) [Entitic mass] 28.0 pg 27.0-32.0 [facility] MCHC (RBC) [Mass/Vol] 31.6 g/dL 32-36 [facility] Nucleated RBC/100 WBC (Bld) [Ratio] 0 % 0-5 [facility] Platelet mean volume (Bld) [Entitic vol] 10.1 fL 6.2-12.0 [facility] Platelets (Bld) [#/Vol] 171 10*3/uL 150-450 [facility] No Panel InformationOrdered By: Radha Seo on 09-23-2023 Estimated GFR (MDRD) Amer 100 mL/min >60 [facility] Comment on above: GFR Calc Estimated GFR (MDRD) Non-Af Amer 82 mL/min >60 [facility] Comment on above: Non- GFR Calc RBC Auto (Bld) [#/Vol]Ordere d By: Radha Seo on 09-23-2023 RBC (Bld) [#/Vol] 4.29 10*6/uL 4.6-6.2 [facility] Serum or plasma calcium mikel urement (mass/volume)Ordered By: Radha eSo on 09-23-2023 Calcium [Mass/Vol] 8.3 mg/dL 8.5-10.1 [facility] Serum or plasma creatinine m easurement (mass/volume)Ordered By: Radha Seo on 09-23-2023 Creatinine [Mass/Vol] 0.94 mg/dL 0.70-1.30 [facility] Comment on above: The validity of the calculated GFR & GFRAA in patients over 70 years has not been determined. Clinical correlation is essential. Serum or plasma urea nitroge n measurement (mass/volume)Ordered By: Radha Seo on 09-23-2023 Urea nitrogen [Mass/Vol] 23 mg/dL 7-18 [facility] Serum or plasma uric acid me asurement (mass/volume)Ordered By: Radha Seo on 09-23-2023 Urate [Mass/Vol] 4.5 mg/dL 3.5-7.2 [facility] Comment on above: The drugs N-Acetylcy steine and Metamizole may falsely depress this assay. Thin prep Papanicolaou smear with manual screeningOrdered By: Radha Seo on 09-23-2023 Thin prep Papanicolaou smear with manual screening 3.4 g/dL 3.2-5.0 [facility] Thin prep Papanicolaou smear with manual screening 36 U/L 15-37 [facility] Thin prep Papanicolaou smear with manual screening 5 5-15 [facility] Absolute lymphocyte countOrd ered By: Abram Mckeon on 09-13-2023 Lymphocytes Auto (Unsp spec) [#/Vol] 1.33 10*3/uL 0.83-4.51 [facility] Automated lymphocyte count a s percentage of total leukocytesOrdered By: Abram Mckeon on 09-13-2023 Lymphocytes/100 WBC Auto (Unsp spec) 9.3 % 19-41 [facility] Basophil percentageOrdered B y: Abram Mckeon on 09-13-2023 Basophils/100 WBC (Bld) 0.1 % 0-1 [facility] Bilirubin [Mass/Vol] 1.00 mg/dL 0.20-1.00 [facility] Comment on above: For patients on eltr ombopag therapy, use of Dimension [place] TBIL is not recommended. Chloride [Moles/Vol] 105 mmol/L 98-107 [facility] Eosinophils/100 WBC (Bld) 0.2 % 0-5 [facility] Glucose [Mass/Vol] 126 mg/dL 74-106 [facility] Comment on above: Fasting Glucose resu lt greater than or equal to 126 mg/dL suggests DIABETES MELLITUS per A.D.A. criteria. Hemoglobin (Bld) [Mass/Vol] 10.7 g/dL 13.0-16.5 [facility] Monocytes/100 WBC (Bld) 8.3 % 0-10 [facility] Neutrophils (Bld) [#/Vol] 11.6 10*3/uL 2.0-7.7 [facility] Neutrophils/100 WBC (Bld) 81.3 % 47-70 [facility] Potassium [Moles/Vol] 4.3 mmol/L 3.5-5.1 [facility] Protein [Mass/Vol] 7.2 g/dL 6.4-8.2 [facility] Sodium [Moles/Vol] 137 mmol/L 136-145 [facility] WBC (Bld) [#/Vol] 14.3 10*3/uL 4.4-11.0 [facility] Determination of erythrocyte mean corpuscular volume (MCV)Ordered By: Abram Mckeon on 09-13-2023 MCV (RBC) [Entitic vol] 87.0 fL 80-94 [facility] Erythrocyte distribution wid th ratioOrdered By: Abram Mckeon on 09-13-2023 Erythrocyte distribution width (RBC) [Ratio] 17.2 % 11.6-14.6 [facility] Erythrocyte distribution wid th standard deviationOrdered By: Abram Mckeon on 09-13-2023 Erythrocyte distribution width (RBC) [Entitic vol] 54.4 fL 35.1-43.9 [facility] Hematocrit Auto (Bld) [Volum e fraction]Ordered By: Abram Mckeon on 09-13-2023 Hematocrit (Bld) [Volume fraction] 34.7 % 40-54 [facility] Immature granulocytes/100 WB C Auto (Bld)Ordered By: Abram Mckeon on 09-13-2023 Immature granulocytes/100 WBC (Bld) 0.800 % 0.0-0.9 [facility] Comment on above: IG% - Immature Granu locytes (promyelocytes, myelocytes and metamyelocytes) > 1% indicates that a LEFT SHIFT is Present. Laboratory - Chemistry and C hemistry - challengeOrdered By: Abram Mckeon on 09-13-2023 Albumin/Globulin [Mass ratio] 1.1 {ratio} 0.9-2.4 [facility] ALP [Catalytic activity/Vol] 112 U/L 45-117 [facility] ALT [Catalytic activity/Vol] 46 U/L 16-61 [facility] CO2 [Moles/Vol] 27.0 mmol/L 21.0-32.0 [facility] Globulin (S) [Mass/Vol] 3.4 g/dL 2.2-4.2 [facility] Natriuretic peptide B (Bld) [Mass/Vol] 1241.4 pg/mL 0-100 [facility] Urea nitrogen/Creatinine [Mass ratio] 24.8 mg/mg 10-20 [facility] Laboratory - Hematology and Cell countsOrdered By: Abram Mckeon on 09-13-2023 MCH (RBC) [Entitic mass] 26.8 pg 27.0-32.0 [facility] MCHC (RBC) [Mass/Vol] 30.8 g/dL 32-36 [facility] Nucleated RBC/100 WBC (Bld) [Ratio] 0 % 0-5 [facility] Platelet mean volume (Bld) [Entitic vol] 10.8 fL 6.2-12.0 [facility] Platelets (Bld) [#/Vol] 197 10*3/uL 150-450 [facility] No Panel InformationOrdered By: Abram Mckeon on 09-13-2023 Estimated GFR (MDRD) Amer 81 mL/min >60 [facility] Comment on above: GFR Calc Estimated GFR (MDRD) Non-Af Amer 67 mL/min >60 [facility] Comment on above: Non- GFR Calc RBC Auto (Bld) [#/Vol]Ordere d By: Abram Mckeon on 09-13-2023 RBC (Bld) [#/Vol] 3.99 10*6/uL 4.6-6.2 [facility] Serum or plasma calcium mikel urement (mass/volume)Ordered By: Abram Mckeon on 09-13-2023 Calcium [Mass/Vol] 9.0 mg/dL 8.5-10.1 [facility] Serum or plasma creatinine m easurement (mass/volume)Ordered By: Abram Mckeon on 09-13-2023 Creatinine [Mass/Vol] 1.13 mg/dL 0.70-1.30 [facility] Comment on above: The validity of the calculated GFR & GFRAA in patients over 70 years has not been determined. Clinical correlation is essential. Serum or plasma urea nitroge n measurement (mass/volume)Ordered By: Abram Mckeon on 09-13-2023 Urea nitrogen [Mass/Vol] 28 mg/dL 7-18 [facility] Thin prep Papanicolaou smear with manual screeningOrdered By: Abram Mckeon on 09-13-2023 Thin prep Papanicolaou smear with manual screening 3.8 g/dL 3.2-5.0 [facility] Thin prep Papanicolaou smear with manual screening 28 U/L 15-37 [facility] Thin prep Papanicolaou smear with manual screening 5 5-15 [facility] XR Knee - left AP and Latera l and obliqueon 09-02-2023 IMPRESSION: No acute bony finding. Minimal degenerative findings Feather Drying Machine Operator: PSCB Transcribe Date/Time: Sep 02 2023 9:04A Dictated by : FEDERICO BRYANT MD This examination was interpreted and the report reviewed and electronically signed by: FEDERICO BRYANT MD on Sep 02 2023 9:06AM [facility] DIVISION OF RADIOLOGY * * *Final Report* * * DATE OF EXAM: Sep 02 2023 9:04AM WOX 5204 - XR KNEE 4V AP/LAT/OBLS LT / PROCEDURE REASON: Acute pain of left knee * * * * Physician Interpretation * * * * Left knee HISTORY: 78 years old Clinical information: Acute pain of left knee was sore 4 days ago and then bowled last night and became very painful. Pain is anterior and inferior to the patella with some swelling no specific inj TECHNIQUE: Images: XR KNEE 4V AP/LAT/OBLS LT Comparison: None. RESULT: Findings: No effusion, fracture or subluxation. Borderline narrowing peripheral aspect medial knee joint compartment. Trace hypertrophic spurring medial compartment and patellofemoral joint. Status post RIGHT knee joint replacement DIVISION OF RADIOLOGY Provider, pat Keenan - 09/02/2023 * * *Final Report* * * DATE OF EXAM: Sep 02 2023 9:04AM WOX 5204 - XR KNEE 4V AP/LAT/OBLS LT / PROCEDURE REASON: Acute pain of left knee * * * * Physician Interpretation * * * * Left knee HISTORY: 78 years old Clinical information: Acute pain of left knee was sore 4 days ago and then bowled last night and became very painful. Pain is anterior and inferior to the patella with some swelling no specific inj TECHNIQUE: Images: XR KNEE 4V AP/LAT/OBLS LT Comparison: None. RESULT: Findings: No effusion, fracture or subluxation. Borderline narrowing peripheral aspect medial knee joint compartment. Trace hypertrophic spurring medial compartment and patellofemoral joint. Status post RIGHT knee joint replacement IMPRESSION IMPRESSION: No acute bony finding. Minimal degenerative findings Feather Drying Machine Operator[facility] Transcribe Date/Time: Sep 02 2023 9:04A Dictated by : FEDERICO BRYANT MD This examination was interpreted and the report reviewed and electronically signed by: FEDERICO BRYANT MD on Sep 02 2023 9:06AM EST [facility] Radiology Study observation (narrative) [facility] XR Knee - left AP and Latera l and obliqueOrdered By: Ccf Provider on 09-02-2023 [facility] COPPER BLOODon 08-23-2023 Copper [Mass/Vol] 142 ug/dL High 70 - 140 ug/dL [facility] FOLATE SERUMon 02-06-2024 Folate [Mass/Vol] >4.7 ng/mL [facility] HAPTOGLOBIN BLDon 08-23-2023 Haptoglobin [Mass/Vol] 219 mg/dL 31 - 238 mg/dL [facility] VITAMIN B12 BLOODon 08-23-19 Cobalamin (Vitamin B12) [Mass/Vol] 486 pg/mL 232 - 1,245 pg/mL [facility] CBC W Auto Differential pane l (Bld)on 08-22-2023 Basophils (Bld) [#/Vol] 0.04 10*3/uL <0.11 k/uL [facility] Basophils/100 WBC (Bld) 0.5 % [facility] Differential cell count method Nom (Bld) Auto [facility] Eosinophils (Bld) [#/Vol] 0.26 10*3/uL <0.46 k/uL [facility] Eosinophils/100 WBC (Bld) 3.3 % [facility] Erythrocyte distribution width (RBC) [Ratio] 16.1 % High 11.5 - 15.0 % [facility] Hematocrit (Bld) [Volume fraction] 33.4 % Low 39.0 - 51.0 % [facility] Hemoglobin (Bld) [Mass/Vol] 10.4 g/dL Low 13.0 - 17.0 g/dL [facility] Immature granulocytes (Bld) [#/Vol] <0.10 k/uL [facility] Immature granulocytes/100 WBC (Bld) 0.3 % [facility] Lymphocytes (Bld) [#/Vol] 1.38 10*3/uL 1.00 - 4.00 k/uL [facility] Lymphocytes/100 WBC (Bld) 17.5 % [facility] MCH (RBC) [Entitic mass] 27.2 pg 26.0 - 34.0 pg [facility] MCHC (RBC) [Mass/Vol] 31.1 g/dL 30.5 - 36.0 g/dL [facility] MCV (RBC) [Entitic vol] 87.4 fL 80.0 - 100.0 fL [facility] Monocytes (Bld) [#/Vol] 0.64 10*3/uL <0.87 k/uL [facility] Monocytes/100 WBC (Bld) 8.1 % [facility] Neutrophils (Bld) [#/Vol] 5.53 10*3/uL 1.45 - 7.50 k/uL [facility] Neutrophils/100 WBC (Bld) 70.3 % [facility] Nucleated RBC (Bld) [#/Vol] <0.01 k/uL [facility] Nucleated RBC/100 WBC (Bld) [Ratio] 0.0 /100 WBC [facility] Platelet mean volume (Bld) [Entitic vol] 10.9 fL 9.0 - 12.7 fL [facility] Platelets (Bld) [#/Vol] 159 10*3/uL 150 - 400 k/uL [facility] RBC (Bld) [#/Vol] 3.82 10*6/uL Low 4.20 - 6.0 0 m/uL [facility] WBC (Bld) [#/Vol] 7.87 10*3/uL 3.70 - 11. 00 k/uL [facility] Comprehensive metabolic 2000 panelon 08-22-2023 Albumin [Mass/Vol] 4.2 g/dL 3.9 - 4.9 g/dL [facility] ALP [Catalytic activity/Vol] 117 U/L High 38 - 113 U/L [facility] ALT [Catalytic activity/Vol] 14 U/L 10 - 54 U/L [facility] Anion gap [Moles/Vol] 9 mmol/L 9 - 18 mmol/L [facility] AST [Catalytic activity/Vol] 17 U/L 14 - 40 U/L [facility] Bilirubin [Mass/Vol] 1.1 mg/dL 0.2 - 1 .3 mg/dL [facility] Calcium [Mass/Vol] 9.3 mg/dL 8.5 - 10. 2 mg/dL [facility] Chloride [Moles/Vol] 106 mmol/L High 97 - 10 5 mmol/L [facility] CO2 [Moles/Vol] 26 mmol/L 22 - 30 mmol/L [facility] Creatinine [Mass/Vol] 1.21 mg/dL 0.73 - 1.22 mg/dL [facility] Estimated Glomerular Filtration Rate 62 mL/min/1.73m >=60 mL/min/1.73m [facility] Glucose [Mass/Vol] 104 mg/dL High 74 - 99 mg/dL [facility] Potassium [Moles/Vol] 3.8 mmol/L 3.7 - 5.1 mmol/L [facility] Protein [Mass/Vol] 6.8 g/dL 6.3 - 8.0 g/dL [facility] Sodium [Moles/Vol] 141 mmol/L 136 - 144 mmol/L [facility] Urea nitrogen [Mass/Vol] 22 mg/dL 9 - 24 mg/dL [facility] LD LACTATE DEHYDROon 024 LDH [Catalytic activity/Vol] 211 U/L 135 - 225 U/L [facility] RETIC COUNTon 08-22-2023 Reticulocytes (Bld) [#/Vol] 0.95324 10*3/uL 0.018 - 0.100 M/uL [facility] Reticulocytes (Bld) [#/Vol]o n 08-22-2023 Reticulocytes/100 RBC (Bld) 1.7 % 0.4 - 2.0 % [facility] Basophil percentageOrdered B y: Barbara Canada on 08-15-2023 Chloride [Moles/Vol] 113 mmol/L 98-107 [facility] Glucose [Mass/Vol] 119 mg/dL 74-106 [facility] Comment on above: Fasting Glucose resu lt from 100 to 125 mg/dL suggests IMPAIRED HOMEOSTASIS per A.D.A. criteria. Hemoglobin (Bld) [Mass/Vol] 10.1 g/dL 13.0-16.5 [facility] Potassium [Moles/Vol] 3.7 mmol/L 3.5-5.1 [facility] Sodium [Moles/Vol] 143 mmol/L 136-145 [facility] WBC (Bld) [#/Vol] 8.8 10*3/uL 4.4-11.0 [facility] Determination of erythrocyte mean corpuscular volume (MCV)Ordered By: Barbara Canada on 08-15-2023 MCV (RBC) [Entitic vol] 90.3 fL 80-94 [facility] Erythrocyte distribution wid th ratioOrdered By: Barbara Canada on 08-15-2023 Erythrocyte distribution width (RBC) [Ratio] 16.2 % 11.6-14.6 [facility] Erythrocyte distribution wid th standard deviationOrdered By: Barbara Canada on 08-15-2023 Erythrocyte distribution width (RBC) [Entitic vol] 54.0 fL 35.1-43.9 [facility] Hematocrit Auto (Bld) [Volum e fraction]Ordered By: Barbara Canada on 08-15-2023 Hematocrit (Bld) [Volume fraction] 33.6 % 40-54 [facility] Laboratory - Chemistry and C hemistry - challengeOrdered By: Barbara Canada on 08-15-2023 CO2 [Moles/Vol] 27.0 mmol/L 21.0-32.0 [facility] Urea nitrogen/Creatinine [Mass ratio] 16.9 mg/mg 10-20 [facility] Laboratory - Hematology and Cell countsOrdered By: Barbara Canada on 08-15-2023 MCH (RBC) [Entitic mass] 27.2 pg 27.0-32.0 [facility] MCHC (RBC) [Mass/Vol] 30.1 g/dL 32-36 [facility] Platelets (Bld) [#/Vol] 166 10*3/uL 150-450 [facility] No Panel InformationOrdered By: Barbara Canada on 08-15-2023 Estimated GFR (MDRD) Amer 65 mL/min >60 [facility] Comment on above: GFR Calc Estimated GFR (MDRD) Non-Af Amer 54 mL/min >60 [facility] Comment on above: Non- GFR Calc Platelet mean volume Matthias-Ec ker (Bld) [Entitic vol]Ordered By: Barbara Canada on 08-15-2023 Platelet mean volume (Bld) [Entitic vol] 11.1 fL 6.2-12.0 [facility] RBC Auto (Bld) [#/Vol]Ordere d By: Barbara Canada on 08-15-2023 RBC (Bld) [#/Vol] 3.72 10*6/uL 4.6-6.2 [facility] Serum or plasma calcium mikel urement (mass/volume)Ordered By: Barbara Canada on 08-15-2023 Calcium [Mass/Vol] 9.0 mg/dL 8.5-10.1 [facility] Serum or plasma creatinine m easurement (mass/volume)Ordered By: Barbara Canada on 08-15-2023 Creatinine [Mass/Vol] 1.36 mg/dL 0.70-1.30 [facility] Comment on above: The validity of the calculated GFR & GFRAA in patients over 70 years has not been determined. Clinical correlation is essential. Serum or plasma thyroid stim ulating hormone (TSH) measurement (units/volume)Ordered By: Barbara Canada on 08-15-2023 TSH Qn 2.61 uIU/mL 0.358-3.74 [facility] Serum or plasma urea nitroge n measurement (mass/volume)Ordered By: Barbara Canada on 08-15-2023 Urea nitrogen [Mass/Vol] 23 mg/dL 7-18 [facility] Thin prep Papanicolaou smear with manual screeningOrdered By: Barbara Canada on 08-15-2023 Thin prep Papanicolaou smear with manual screening 3 5-15 [facility] CNOVon 06-22-2023 CNOV Office Visit (AGCARD POB) ----- SHELTON FOX ([id number]) 1945 M Date Time Provider Department 06/22/23 3:00 PM TIMOTHY WALKER AGCARDPOB During your visit today, we recorded the following information about you: Pulse Blood pressure Weight Height 72/minute 108/66 75.8 kg 1.791 m Keiko Santos LPN 06/22/2023 2:50 PM Signed Patient denies any cardiac complaints or symptoms. FREDDY Thurman Faisal, MD 06/22/2023 4:17 PM Signed PRIMARY CARE PHYSICIAN: Federico Vigil [address] [place] [address] Patient Care Team: Federico Vigil MD as PCP - General (Family Medicine) CHIEF COMPLAINT: Paroxysmal Atrial fibrillation HISTORY OF PRESENT ILLNESS: Mr. Fox is a 77 year old male who presents today for a cardiovascular medicine follow-up visit. History copied from previous notes, edited as needed: Mr. Fox is a 77 year old male with [...] per week at the wellness center in [place], under the supervision of an senior web applications developer. He checks his heart rhythm daily on [...] cause unspecified Arthritis Atherosclerotic heart disease of [place] coronary artery without angina pectoris Atrial fibrillation [...] (HCC) Prominent abdominal aortic pulsation S/P drug (more content not included)... Normal [facility] No Panel Informationon 05-25 [facility] ANES POSTPROC EVALon 023 ANES POSTPROC EVAL HNO ID: [id number] Author: Mckenna Alcazar MD Service: ? Author Type: Anesthesiologist Type: Anesthesia Postprocedure Evaluation Filed: 05/20/2023 12:53 PM Note Text: POST ANESTHESIA EVALUATION NOTE : 1945 Procedure Summary Date: 05/20/23 Room / Location: [facility] Endoscopy Anesthesia Start: 940 Anesthesia Stop: 1026 Procedures: EGD DIAGNOSTIC COLONOSCOPY SCREENING Diagnosis: Dysphagia, unspecified type History of colonic polyps (Dysphagia) (High risk colon cancer surveillance: Personal history of colonic polyps) Scheduled Providers: Cabrera Mejia MD; Tiarra Cueva APRN.DELIVERY DRIVER ASSISTANT; Mckenna Alcazar MD Responsible Provider: Mckenna Alcazar MD Anesthesia Type: MAC ASA Status: 3 Anesthesia Type: MAC Last Vitals Vitals Value Taken Time BP 165/71 05/20/23 1116 Temp 36.1 ?C (97 ?F) 05/20/23 1029 Pulse 69 05/20/23 1119 Resp 14 05/20/23 1119 SpO2 98 % 05/20/23 1119 Vitals shown include unvalidated device data. Post Anesthesia Patient Status Patient Evaluation: bedside. Anticipated Disposition: phase 2 then home. Neurological Status: aware and responsive. Pulmonary Status: breathing comfortably on room air Airway Control: returned to baseline unsupported. Cardiovascular Status: stable. Pain Management: clinically adequate Postoperative Hydration: acceptable. Intraoperative Events: no significant anesthesia events Post Operative Nausea/Vomiting Status: no significant post operative nausea or vomiting Recommendation: continue current plan of care. Anesthesia Observations No Documentation SIGNATURE: Mckenna Alcazar MD PATIENT NAME: Shelton Fox DATE: May 20, 2023 TIME: 12:53 PM CSN: [id number] Normal [facility] ANES PRE-OPon 05-20-2023 ANES PRE-OP HNO ID: [id number] Author: Mckenna Alcazar MD Service: ? Author Type: Anesthesiologist Type: Anesthesia Preprocedure Evaluation Filed: 05/20/2023 9:29 AM Note Text: ANESTHESIOLOGY DAY OF SURGERY NOTE : 1945 Procedure Information Date/Time: 05/20/23 1100 Scheduled providers: Cabrera Mejia MD; Tiarra Cueva APRN.DELIVERY DRIVER ASSISTANT; Mckenna Alcazar MD Procedures: EGD DIAGNOSTIC COLONOSCOPY SCREENING Location: [facility] Endoscopy Estimated body mass index is 24.82 kg/m? as calculated from the following: Height as of this encounter: 177.8 cm (5' 10). Weight as of this encounter: 78.5 kg (173 lb). Most recent hematocrit and potassium results: Hematocrit 34.4 04/06/2023 Potassium 3.7 12/21/2022 Relevant Problems CARDIO (+) Atrial fibrillation (HCC) (+) BENIGN HYPERTENSION (+) Carotid stenosis, asymptomatic, bilateral (+) Coronary artery disease involving [place] coronary artery of [place] heart with angina pectoris (HCC) (+) Internal hemorrhoids without mention of complication (+) PAD (peripheral artery disease) (HCC) (+) Paroxysmal atrial fibrillation (HCC) (-) Angina at rest (-) Angina of effort GI (+) Gastroesophageal reflux disease -RENAL (+) Hepatomegaly NEURO-PSYCH (+) History of arthritis (+) Status post ablation of atrial flutter PULMONARY (+) Dyspnea Other (+) Inflammatory polyarthropathy (HCC) I - PHYSICAL EVALUATION AIRWAY Patient intubated: No. Tracheostomy tube not present Mallampati: II. TM distance: >3 FB. Neck ROM: full ROM without neurological symptoms. Mouth opening: adequate. Short neck: no. Thick neck: no DENTAL Dentures, upper: complete. II - ANESTHESIA PLAN ASA Score: 3 Anesthetic Plan: MAC The patient is not a current smoker. NPO Status: adequate Beta Pepe Monitoring Plan Monitoring plan: standard ASA. Post Procedure Analgesic Plan Postoperative analgesic plan: other. Informed Consent Anesthetic risks, benefits, alternatives, personnel and consent discussed: yes. Patient / Responsible Democrat agrees to proceed: yes Patient / Surrogate agrees to blood products: Yes DNR status not reviewed with patient and/or family prior to surgery. Significant changes in the patient condition since the History and Physical, not otherwise documented in primary service progress note: no. Potential Anesthesia issues that may suggest increased risk of complications or contraindication to planned procedure: none. Vitals Value Taken Time BP 176/77 05/20/23840 Pulse 61 05/20/23840 Resp 16 05/20/23840 Temp 36.2 ?C (97.2 ?F) 05/20/23840 SpO2 100 % 05/20/23840 Outpatient Medications as of 05/20/2023 Medication Sig - carvedilol (COREG) 6.25 mg tablet Take 1 tablet by mouth twice daily. - predniSONE (DELTASONE) 10 mg tablet Take 1 tablet by mouth as needed. - hydrOXYchloroQUINE (PLAQUENIL) 200 mg tablet Take 200 mg by mouth twice daily. - simvastatin (ZOCOR) 20 mg tablet Take 1 tablet by mouth once daily. - multivit with minerals/lutein (MULTIVITAMIN 50 PLUS ORAL) Take 1 tablet by mouth once daily. - allopurinol (ZYLOPRIM) 100 mg tablet TAKE 1 TABLET BY MOUTH TWICE A DAY - apixaban (ELIQUIS) 5 mg tab(s) Take 5 mg by mouth twice daily. - clopidogrel (PLAVIX) 75 mg tablet Take 75 mg by mouth once daily. - Melatonin 5 mg cap Take 5 mg by mouth daily at bedtime. - sildenafil (VIAGRA) 100 mg tablet Take 1/2 to 1 tablet by mouth 1 hour prior to anticipated intercourse. - lisinopril (ZESTRIL) 5 mg tablet Take 1 tablet by mouth once daily. Facility-Administered Medications as of 05/20/2023 Medication Dose Route Frequency - lactated ringers iv infusion 30 mL/hr INTRAVENOUS CONTINUOUS - lactated ringers iv infusion 30 mL/hr INTRAVENOUS CONTINUOUS I have interviewed and examined the patient. I have reviewed the medical record and/or the pre-anesthesia evaluation, pertinent labs, and test results. This contains updated information obtained within 48 hours of Surgery/Procedure. SIGNATURE: Mckenna Alcazar MD PATIENT NAME: Shelton Fox DATE: May 20, 2023 TIME: 9:29 AM CSN: [id number] Normal [facility] Colonoscopyon 05-20-2023 Colonoscopy [facility] Gastrointestinal Endoscopy Patient Name: Shelton Fox Procedure Date: 05/20/2023 9:35 AM Date of : 1945 Admit Type: Outpatient Age: 77 Room: [facility] Gender: Male Note Status: Finalized Attending MD: Cabrera Mejia MD Procedure: Colonoscopy Indications: High risk colon cancer surveillance: Personal history of colonic polyps Providers: Cabrera Mejia MD Patient Profile: This is a 77 year old male. Refer to note in patient chart for documentation of history and physical. Last Colonoscopy: August 2016. Referring Physician: Gretel Morgan (pa) (Referring MD) Medicines: See the Anesthesia note for documentation of the administered medications Complications: No immediate complications. Estimated blood loss: None. Requesting Provider: Procedure: Pre-Anesthesia Assessment: - Prior to the procedure, a History and Physical was performed, and patient medications and allergies were reviewed. The patient's tolerance of previous anesthesia was also reviewed. The risks and benefits of the procedure and the sedation options and risks were discussed with the patient. All questions were answered, and informed consent was obtained. Prior Anticoagulants: The patient has taken Plavix (clopidogrel), last dose was 1 day prior to procedure. ASA Grade Assessment: III - A patient with severe systemic disease. After reviewing the risks and benefits, the patient was deemed in satisfactory condition to undergo the procedure. After I obtained informed consent, the scope was passed under direct vision. Throughout the procedure, the patient's blood pressure, pulse, and oxygen saturations were monitored continuously. The Colonoscope was introduced through the anus with the intention of advancing to the cecum. The scope was advanced to the sigmoid colon before the procedure was aborted. Medications were given. The colonoscopy was extremely difficult due to a tortuous colon. The quality of the bowel preparation was good. No anatomical landmarks were photographed. The patient tolerated the procedure well. Moderate Sedation: Moderate (conscious) sedation was personally administered by an anesthesia professional. The following parameters were monitored: oxygen saturation, heart rate, blood pressure, respiratory rate, EKG, adequacy of pulmonary ventilation, and response to care. MAC anesthesia was administered by the anesthesia team. Total Procedure Duration: 0 hours 18 minutes 0 seconds Findings: The sigmoid colon was grossly tortuous. Impression: - Tortuous colon. - No specimens collected. Recommendation: - Patient has a contact number available for emergencies. The signs and symptoms of potential delayed complications were discussed with the patient. Return to normal activities tomorrow. Written discharge instructions were provided to the patient. - Resume previous diet. - Continue present medications. - Perform an air contrast barium enema today. - Resume Plavix (clopidogrel) today at prior dose. - Repeat colonoscopy at appointment to be scheduled for retreatment. Procedure Code(s): --- Professional --- 44437, 53, Colonoscopy, flexible; diagnostic, including collection of specimen(s) by brushing or washing, when performed (separate procedure) Diagnosis Code(s): --- Professional --- Z12.11, Encounter for screening for malignant neoplasm of colon Z86.010, Personal history of colonic polyps Q43.8, Other specified congenital malformations of intestine CPT copyright 2020 [employer]. All rights reserved. The codes documented in this report are preliminary and upon social scientist review may be revised to meet current compliance requirements. Attending Participation: I personally performed the entire procedure. Scope In: 9:55:54 AM Scope Out: 10:13:54 AM MD Cabrera Avila MD 05/20/2023 10:20:13 AM This report has been signed electronically by Cabrera Mejia MD Number of Addenda: 0 Note Initiated On: 05/20/2023 9:35 AM Estimated Blood Loss: Estimated blood loss: none. Normal [facility] HISTORY PHYSICALon HISTORY PHYSICAL HNO ID: [id number] Author: Cabrera Mejia MD Service: General Surgery Author Type: Physician Type: HANDP Filed: 05/20/2023 9:42 AM Note Text: HISTORY AND PHYSICAL Shleton Fox 1945 REFERRING PHYSICIAN: Federico Vigil MD CHIEF [...] sedation, findings of gastritis. Last colonoscopy in [facility] 09/08/16 with removal of sigmoid polyp, 3 year follow-up recommended. Path report not available in [facility]. Patient's medical history is significant for atrial fibrillation, AVN, cardiomyopathy, coronary stents, carotid stenosis, PAD. He follows with Dr. Vigil in primary care for his chronic medical conditions. PAST MEDICAL HISTORY PAST MEDICAL HISTORY Diagnosis Date Allergic rhinitis, cause unspecified Arthritis Atherosclerotic heart disease of [place] coronary artery without angina pectoris Atrial fibrillation [...] Unspecified atrial fibrillation (HCC) PAST SURGICAL HISTORY PAST SURGICAL HISTORY Procedure Laterality Date ARTHROPLASTY TOTAL SHOULDER 06/2011 Dr. Benitez. ARTHRP ACETBLR/PROX FEM PROSTC AGRFT/ALGRFT 04/2012 Dr. Wood> [facility] ARTHRP KNE CONDYLEANDPLATU MEDIALANDLAT COMPARTMENTS Right COLONOSCOPY W/BIOPSY SINGLE/MULTIPLE 08/24/2006 EGD 12/01/2020 EYE SURGERY HX JOINT REPLACEMENT HX LEFT HEART CATH,PERCUTANEOUS 10/06/2022 OPEN REPAIR OF ROTATOR CUFF ACUTE 10/03/2008 Rotator cuff repair-right PAST SURGICAL HISTORY OF right knee scope PAST SURGICAL HISTORY OF cataract both eyes PAST SURGICAL HISTORY OF N/A 12/20/2022 EPS with Ablation, [facility] TONSILLECTOMY HX TONSILLECTOMY PRIMARY/SECONDARY Tonsillectomy and adnoids CURRENT MEDICATIONS Current Outpatient Medications Medication Sig allopurinol [...] [Indomethacin Sodium] and Mobic [Meloxicam] PERSONAL HISTORY: SOCIAL HISTORY Social History Tobacco Use Smoking status: Former Packs/day: 1.00 Years: 10.00 Additional pack years: 0.00 Total pack years: 10.00 Types: Cigarettes Quit date: (more content not included)... Normal [facility] NURSING PROGon 05-20-2023 NURSING PROG HNO ID: [id number] Author: Luma Armstrong, RN Service: ? Author Type: Registered Nurse Type: Nursing Progress Note Filed: 05/20/2023 12:38 PM Note Text: Patient waiting on barrium enema study. Plan to go around 2:30pm. Pt resting with at the bedside at this time. Will continue to monitor. [facility] SURGICAL PATHOLOGYon 023 CASE REPORT [facility] Comment on above: Order Comment: Tiarra jackson Type: TISSUE SPECIMEN Ordering Facility: [facility] Address: [address] [place] [address] Result Comment: Surg ical Pathology Report Case: [id number] Authorizing Provider: Cabrera Mejia MD Collected: 05/20/2023 09:52 AM Ordering Location: [facility] Endoscopy Received: 05/20/2023 12:48 PM Pathologist: Butch Ulrich MD Specimens: A) - DUODENUM BIOPSY B) - STOMACH BIOPSY C) - ESOPHAGUS LOWER BIOPSY D) - ESOPHAGUS MID BIOPSY Performed By: #### S #### [facility] CLIA [id number] [address] [place] [address] [place] FINAL DIAGNOSIS [facility] Comment on above: Order Comment: Tiarra jackson Type: TISSUE SPECIMEN Ordering Facility: [facility] Address: [address] [place] [address] Result Comment: A. D uodenum, biopsy: -Duodenal mucosa with no diagnostic abnormality. B. Stomach, biopsy: -Gastric antral mucosa with no diagnostic abnormality. C. Esophagus, lower, biopsy: -Squamous epithelium with glycogenic acanthosis. D. Esophagus, mid, biopsy: -Squamous epithelium with glycogenic acanthosis. Performed By: #### S #### [facility] CLIA [id number] [address] [place] [address] [place] FINAL PERFORMING LAB Normal [facility] Comment on above: Order Comment: Speci men Type: TISSUE SPECIMEN Ordering Facility: [facility] Address: [address] [place] [address] Result Comment: Diag nostic interpretation performed at [facility], [address] [place] [address] CLIA# [id number] [place] Bottom Maker: Sanchez Ruth M.D. Performed By: #### S #### [facility] CLIA [id number] [address] [place] [address] [place] GROSS DESCRIPTION Normal [facility] Comment on above: Order Comment: Speci men Type: TISSUE SPECIMEN Ordering Facility: [facility] Address: [address] [place] [address] Result Comment: A. D UODENUM BIOPSY Received in formalin is a pink polypoid segment of tissue measuring 0.5 x 0.4 x 0.6 cm. No stalk is noted. The apparent line of resection is noted. The specimen is bisected. Totally submitted in one cassette. B. STOMACH BIOPSY Received in formalin is one piece of sheldon, soft tissue measuring 0.5 x 0.3 x 0.2 cm. Totally submitted in one cassette. C. ESOPHAGUS LOWER BIOPSY Received in formalin are two pieces of sheldon, soft tissue aggregating to 1.0 x 0.5 x 0.1 cm. Totally submitted in one cassette. D. ESOPHAGUS MID BIOPSY Received in formalin is one piece of sheldon, soft tissue measuring 0.5 x 0.4 x 0.1 cm. Totally submitted in one cassette. CL May 20, 2023 4:08 PM Gross examination performed at [facility], [address] [place] [address] Performed By: #### S #### [facility] CLIA [id number] [address] [place] [address] [place] Upper GI endoscopyon 05-20- 023 Upper GI endoscopy [facility] Gastrointestinal Endoscopy Patient Name: Shelton Fox Procedure Date: 05/20/2023 9:49 AM Date of : 1945 Admit Type: Outpatient Age: 77 Room: [facility] Gender: Male Note Status: Finalized Attending MD: Cabrera Mejia MD Procedure: Upper GI endoscopy Indications: Dysphagia Providers: Cabrera Mejia MD Patient Profile: This is a 77 year old male. Refer to note in patient chart for documentation of history and physical. Referring Physician: Gretel Morgan (pa) (Referring MD) Medicines: See the Anesthesia note for documentation of the administered medications Complications: No immediate complications. Estimated blood loss: Minimal. Requesting Provider: Procedure: Pre-Anesthesia Assessment: - Prior to the procedure, a History and Physical was performed, and patient medications and allergies were reviewed. The patient's tolerance of previous anesthesia was also reviewed. The risks and benefits of the procedure and the sedation options and risks were discussed with the patient. All questions were answered, and informed consent was obtained. Prior Anticoagulants: The patient has taken Plavix (clopidogrel), last dose was 1 day prior to procedure. ASA Grade Assessment: III - A patient with severe systemic disease. After reviewing the risks and benefits, the patient was deemed in satisfactory condition to undergo the procedure. After obtaining informed consent, the endoscope was passed under direct vision. Throughout the procedure, the patient's blood pressure, pulse, and oxygen saturations were monitored continuously. The Colonoscope was introduced through the mouth, and advanced to the second part of duodenum. The upper GI endoscopy was accomplished without difficulty. The patient tolerated the procedure well. Moderate Sedation: Moderate (conscious) sedation was personally administered by an anesthesia professional. The following parameters were monitored: oxygen saturation, heart rate, blood pressure, respiratory rate, EKG, adequacy of pulmonary ventilation, and response to care. MAC anesthesia was administered by the anesthesia team. Total Procedure Duration: 0 hours 4 minutes 28 seconds Findings: The Z-line was regular and was found 41 cm from the incisors. Biopsies were taken with a cold forceps for histology. Localized minimal inflammation characterized by erythema was found in the prepyloric region of the stomach. Biopsies were taken with a cold forceps for Helicobacter pylori testing. The examined duodenum was normal. Biopsies for histology were taken with a cold forceps for evaluation of celiac disease. Impression: - Z-line regular, 41 cm from the incisors. Biopsied. - Gastritis. Biopsied. - Normal examined duodenum. Biopsied. Recommendation: - Patient has a contact number available for emergencies. The signs and symptoms of potential delayed complications were discussed with the patient. Return to normal activities tomorrow. Written discharge instructions were provided to the patient. - Resume previous diet. - Continue present medications. - Await pathology results. - Repeat upper endoscopy PRN for surveillance. - Return to physician retail assistant manager in 1 week. Procedure Code(s): --- Professional --- 92725, Esophagogastroduodenoscop y, flexible, transoral; with biopsy, single or multiple Diagnosis Code(s): --- Professional --- K29.70, Gastritis, unspecified, without bleeding R13.10, Dysphagia, unspecified CPT copyright 2020 [employer]. All rights reserved. The codes documented in this report are preliminary and upon social scientist review may be revised to meet current compliance requirements. Attending Participation: I personally performed the entire procedure. Scope In: 9:49:48 AM Scope Out: 9:54:16 AM MD Cabrera Avila MD 05/20/2023 10:17:07 AM This report has been signed electronically by Cabrera Mejia MD Number of Addenda: 0 Note Initiated On: 05/20/2023 9:49 AM Estimated Blood Loss: Estimated blood loss was minimal. Normal [facility] XR COLON ROUTINE DOUBLE CONT [facility] 05-20-2023 XR COLON ROUTINE DOUBLE CONTRAST * * *Final Report* * * DATE OF EXAM: May 20 2023 4:28PM MDX [id number] - XR COLON ROUTINE DOUBLE CONTRAST / PROCEDURE REASON: failed colonoscopy * * * * Physician Interpretation * * * * Air contrast barium enema: HISTORY: 77 years old Clinical information: failed colonoscopy TECHNIQUE: Radiation time: 4:54 (minutes/seconds) Images obtained: Multiple spot film images in the area tortuosity were obtained during fluoroscopy. Multiple overhead films were obtained. RESULT: Findings: The sigmoid portion the colon is extremely tortuous and there are multiple diverticula extending down into the area of the rectum. There is no evidence of diverticulitis. Patient was constantly losing barium during the exam and had to be cleaned multiple times. Inferior to the cecum filled with contrast. No persistent filling defects or areas of ulceration was seen. IMPRESSION: 1. Difficult exam due to patient's level of discomfort 2. Multiple diverticula but no evidence of diverticulitis 3. Sigmoid colon is extremely tortuous Feather Drying Machine Operator: SIA Transcribe Date/Time: May 20 2023 4:38P Dictated by : ROBERT CHIRINOS DO This examination was interpreted and the report reviewed and electronically signed by: ROBERT CHIRINOS DO on May 20 2023 4:44PM EST [id number] Normal [facility] Absolute lymphocyte countOrd ered By: Cabrera Ngo on 05-10-2023 Lymphocytes Auto (Unsp spec) [#/Vol] 2.74 10*3/uL 0.83-4.51 [facility] Basophil percentageOrdered B y: Cabrera Ngo on 05-10-2023 Basophils/100 WBC (Bld) 0.3 % 0-1 [facility] Bilirubin [Mass/Vol] 0.80 mg/dL 0.20-1.00 [facility] Comment on above: For patients on eltr ombopag therapy, use of Dimension [place] TBIL is not recommended. Chloride [Moles/Vol] 111 mmol/L 98-107 [facility] Eosinophils/100 WBC (Bld) 0.7 % 0-5 [facility] Glucose [Mass/Vol] 129 mg/dL 74-106 [facility] Comment on above: Fasting Glucose resu lt greater than or equal to 126 mg/dL suggests DIABETES MELLITUS per A.D.A. criteria. Neutrophils (Bld) [#/Vol] 8.0 10*3/uL 2.0-7.7 [facility] Neutrophils/100 WBC (Bld) 69.8 % 47-70 [facility] Potassium [Moles/Vol] 3.9 mmol/L 3.5-5.1 [facility] Comment on above: Slight Hemolysis, Re sult may be falsely increased. Protein [Mass/Vol] 7.3 g/dL 6.4-8.2 [facility] Sodium [Moles/Vol] 139 mmol/L 136-145 [facility] WBC (Bld) [#/Vol] 11.5 10*3/uL 4.4-11.0 [facility] Blood erythrocytes count (nu mber/volume)Ordered By: Cabrera Ngo on 10-24-2023 RBC (Bld) [#/Vol] 4.02 10*6/uL 4.6-6.2 [facility] Blood hemoglobin measurement (mass/volume)Ordered By: Cabrera Ngo on 05-10-2023 Hemoglobin (Bld) [Mass/Vol] 11.7 g/dL 13.0-16.5 [facility] Blood lymphocytes/100 leukoc ytesOrdered By: Cabrera Ngo on 05-10-2023 Lymphocytes/100 WBC (Bld) 23.9 % 19-41 [facility] Blood monocytes/100 leukocyt esOrdered By: Cabrera Ngo on 05-10-2023 Monocytes/100 WBC (Bld) 5.0 % 0-10 [facility] Blood platelet mean volumeOr dered By: Cabrera Ngo on 05-10-2023 Platelet mean volume (Bld) [Entitic vol] 11.0 fL 6.2-12.0 [facility] Determination of erythrocyte mean corpuscular volume (MCV)Ordered By: Cabrera Ngo on 05-10-2023 MCV (RBC) [Entitic vol] 91.8 fL 80-94 [facility] Direct bilirubinOrdered By: Cabrera Ngo on 05-10-2023 Bilirubin.direct [Mass/Vol] 0.28 mg/dL 0.00-0.30 [facility] Hematocrit Auto (Bld) [Volum e fraction]Ordered By: Cabrera Ngo on 05-10-2023 Hematocrit (Bld) [Volume fraction] 36.9 % 40-54 [facility] Laboratory - Chemistry and C hemistry - challengeOrdered By: Cabrera Ngo on 05-10-2023 ALP [Catalytic activity/Vol] 94 U/L 45-117 [facility] ALT [Catalytic activity/Vol] 35 U/L 16-61 [facility] CO2 [Moles/Vol] 21.0 mmol/L 21.0-32.0 [facility] Globulin (S) [Mass/Vol] 3.6 g/dL 2.2-4.2 [facility] Lipase [Catalytic activity/Vol] 42 U/L 13-75 [facility] Comment on above: Please note:LIPASE r evised reference range effective 22. New Lipase methodology. Expected to produce lower values than the previous assay method. NEW Reference Range: 13 - 75 U/L Urea nitrogen/Creatinine [Mass ratio] 15.3 mg/mg 10-20 [facility] Laboratory - Hematology and Cell countsOrdered By: Cabrera Ngo on 05-10-2023 Erythrocyte distribution width (RBC) [Entitic vol] 46.9 fL 35.1-43.9 [facility] Erythrocyte distribution width (RBC) [Ratio] 13.8 % 11.6-14.6 [facility] Immature granulocytes/100 WBC (Bld) 0.300 % 0.0-0.9 [facility] Comment on above: IG% - Immature Granu locytes (promyelocytes, myelocytes and metamyelocytes) > 1% indicates that a LEFT SHIFT is Present. MCH (RBC) [Entitic mass] 29.1 pg 27.0-32.0 [facility] Nucleated RBC/100 WBC (Bld) [Ratio] 0 % 0-5 [facility] MCHC Auto (RBC) [Mass/Vol]Or dered By: Cabrera Ngo on 05-10-2023 MCHC (RBC) [Mass/Vol] 31.7 g/dL 32-36 [facility] No Panel InformationOrdered By: Cabrera Ngo on 05-10-2023 Estimated Creatinine Clearance Calc 46.62 ml/min [facility] Estimated GFR (MDRD) Amer 65 mL/min >60 [facility] Comment on above: GFR Calc Estimated GFR (MDRD) Non-Af Amer 54 mL/min >60 [facility] Comment on above: Non- GFR Calc Platelets bldOrdered By: Delonte Ngo on 05-10-2023 Platelets (Bld) [#/Vol] 286 10*3/uL 150-450 [facility] Serum or plasma albumin mikel urement (mass/volume)Ordered By: Cabrera Ngo on 05-10-2023 Albumin [Mass/Vol] 3.7 g/dL 3.2-5.0 [facility] Serum or plasma calcium mikel urement (mass/volume)Ordered By: Cabrera Ngo on 05-10-2023 Calcium [Mass/Vol] 9.1 mg/dL 8.5-10.1 [facility] Serum or plasma creatinine m easurement (mass/volume)Ordered By: Cabrera Ngo on 05-10-2023 Creatinine [Mass/Vol] 1.37 mg/dL 0.70-1.30 [facility] Comment on above: The validity of the calculated GFR & GFRAA in patients over 70 years has not been determined. Clinical correlation is essential. Serum or plasma urea nitroge n measurement (mass/volume)Ordered By: Cabrera Ngo on 05-10-2023 Urea nitrogen [Mass/Vol] 21 mg/dL - [facility] Thin prep Papanicolaou smear with manual screeningOrdered By: Cabrera Ngo on 05-10-2023 Thin prep Papanicolaou smear with manual screening 42 U/L [facility] Comment on above: Slight Hemolysis, Re sult may be falsely increased. Thin prep Papanicolaou smear with manual screening 7 11-29 [facility] No Panel Informationon 04-13 [facility] Absolute lymphocyte countOrd ered By: Radha Seo on 04-01-2023 Lymphocytes Auto (Unsp spec) [#/Vol] 1.77 10*3/uL 0.83-4.51 [facility] Basophil percentageOrdered B y: Radha Seo on 04-01-2023 Basophils/100 WBC (Bld) 0.6 % 0-1 [facility] Bilirubin [Mass/Vol] 0.50 mg/dL 0.20-1.00 [facility] Comment on above: For patients on eltr ombopag therapy, use of Dimension [place] TBIL is not recommended. Chloride [Moles/Vol] 112 mmol/L 98-107 [facility] Eosinophils/100 WBC (Bld) 0.8 % 0-5 [facility] Glucose [Mass/Vol] 92 mg/dL 74-106 [facility] Neutrophils (Bld) [#/Vol] 4.5 10*3/uL 2.0-7.7 [facility] Neutrophils/100 WBC (Bld) 63.1 % 47-70 [facility] Potassium [Moles/Vol] 3.9 mmol/L 3.5-5.1 [facility] Protein [Mass/Vol] 6.6 g/dL 6.4-8.2 [facility] Sodium [Moles/Vol] 140 mmol/L 136-145 [facility] WBC (Bld) [#/Vol] 7.2 10*3/uL 4.4-11.0 [facility] Blood erythrocytes count (nu mber/volume)Ordered By: Radha Seo on 04-01-2023 RBC (Bld) [#/Vol] 3.59 10*6/uL 4.6-6.2 [facility] Blood hemoglobin measurement (mass/volume)Ordered By: Radha Seo on 04-01-2023 Hemoglobin (Bld) [Mass/Vol] 10.6 g/dL 13.0-16.5 [facility] Blood lymphocytes/100 leukoc ytesOrdered By: Radhayon Seo on 04-01-2023 Lymphocytes/100 WBC (Bld) 24.8 % 19-41 [facility] Blood monocytes/100 leukocyt esOrdered By: Radha Seo on 04-01-2023 Monocytes/100 WBC (Bld) 9.4 % 0-10 [facility] Blood platelet mean volumeOr dered By: Radha Gabbi on 04-01-2023 Platelet mean volume (Bld) [Entitic vol] 10.3 fL 6.2-12.0 [facility] Determination of erythrocyte mean corpuscular volume (MCV)Ordered By: Radhayon Seo on 04-01-2023 MCV (RBC) [Entitic vol] 92.5 fL 80-94 [facility] Hematocrit Auto (Bld) [Volum e fraction]Ordered By: Radha Seo on 04-01-2023 Hematocrit (Bld) [Volume fraction] 33.2 % 40-54 [facility] Laboratory - Chemistry and C hemistry - challengeOrdered By: Radha Seo on 04-01-2023 ALP [Catalytic activity/Vol] 53 U/L 45-117 [facility] ALT [Catalytic activity/Vol] 25 U/L 16-61 [facility] CO2 [Moles/Vol] 22.0 mmol/L 21.0-32.0 [facility] Globulin (S) [Mass/Vol] 3.1 g/dL 2.2-4.2 [facility] Urea nitrogen/Creatinine [Mass ratio] 14.4 mg/mg 10-20 [facility] Laboratory - Hematology and Cell countsOrdered By: Radha Seo on 04-01-2023 Erythrocyte distribution width (RBC) [Entitic vol] 54.1 fL 35.1-43.9 [facility] Erythrocyte distribution width (RBC) [Ratio] 15.9 % 11.6-14.6 [facility] Immature granulocytes/100 WBC (Bld) 1.300 % 0.0-0.9 [facility] Comment on above: IG% - Immature Granu locytes (promyelocytes, myelocytes and metamyelocytes) > 1% indicates that a LEFT SHIFT is Present. MCH (RBC) [Entitic mass] 29.5 pg 27.0-32.0 [facility] Nucleated RBC/100 WBC (Bld) [Ratio] 0 % 0-5 [facility] MCHC Auto (RBC) [Mass/Vol]Or dered By: Radha Seo on 04-01-2023 MCHC (RBC) [Mass/Vol] 31.9 g/dL 32-36 [facility] No Panel InformationOrdered By: Radha Seo on 04-01-2023 Estimated GFR (MDRD) Amer 77 mL/min >60 [facility] Comment on above: GFR Calc Estimated GFR (MDRD) Non-Af Amer 64 mL/min >60 [facility] Comment on above: Non- GFR Calc Platelets bldOrdered By: Chilo Seo on 04-01-2023 Platelets (Bld) [#/Vol] 169 10*3/uL 150-450 [facility] Serum or plasma albumin mikel urement (mass/volume)Ordered By: Radha Seo on 04-01-2023 Albumin [Mass/Vol] 3.5 g/dL 3.2-5.0 [facility] Serum or plasma albumin/glob ulin mass ratioOrdered By: Radha Seo on 04-01-2023 Albumin/Globulin [Mass ratio] 1.1 {ratio} 0.9-2.4 [facility] Serum or plasma calcium mikel urement (mass/volume)Ordered By: Radha Seo on 04-01-2023 Calcium [Mass/Vol] 8.6 mg/dL 8.5-10.1 [facility] Serum or plasma creatinine m easurement (mass/volume)Ordered By: Radha Seo on 04-01-2023 Creatinine [Mass/Vol] 1.18 mg/dL 0.70-1.30 [facility] Comment on above: The validity of the calculated GFR & GFRAA in patients over 70 years has not been determined. Clinical correlation is essential. Serum or plasma urea nitroge n measurement (mass/volume)Ordered By: Radha Seo on 04-01-2023 Urea nitrogen [Mass/Vol] 17 mg/dL 7-18 [facility] Thin prep Papanicolaou smear with manual screeningOrdered By: Radha Seo on 04-01-2023 Thin prep Papanicolaou smear with manual screening 18 U/L 15 [facility] Thin prep Papanicolaou smear with manual screening 6 5-15 [facility] CNOVon 03-29-2023 CNOV Office Visit (DIMITRIS DUMONTB) ----- SHELTON FOX ([id number]) 1945 M Date Time Provider Department 03/29/23 3:00 PM MALATHI SAM During your visit today, we recorded the following information about you: Pulse Blood pressure Weight Height 66/minute 132/49 78.8 kg 1.778 m Veronica Rosas MA 03/29/2023 3:03 PM Signed No cardiac complaints today. YON Pennington Kimberly, APRN.CNP 03/29/2023 3:48 PM Signed [facility] General Cardiology Electrophysiology PRIMARY CARE PHYSICIAN: Federico Vigil [address] [place] [address] CHIEF COMPLAINT: Cardiovascular medicine follow-up for arrhythmia. HISTORY OF PRESENT ILLNESS: Mr. 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 He checks his heart rhythm daily on the [employer] mobile, reports 2 episodes of atrial fibrillation [...] cause unspecified Arthritis Atherosclerotic heart disease of [place] coronary artery without angina pectoris Atrial fibrillation [...] ACETBLR/PROX FEM PROSTC AGRFT/ALGRFT 04/2012 Dr. Wood> [facility]. ARTHRP KNE CONDYLEANDPLATU MEDIALANDLAT COMPARTMENTS Right COLONOSCOPY W/BIOPSY SINGLE/MULTIPLE 08/24/2006 EGD 12/01/2020 EYE SURGERY HX JOINT REPLACEMENT HX LEFT HEART CATH,PERCUTANEOUS 10/06/2022 OPEN REPAIR OF ROTATOR CUFF ACUTE 10/03/2008 Rotator cuff repair-right PAST SURGICAL HISTORY OF right knee scope PAST SURGICAL HISTORY OF cataract both eyes PAST SURGICAL HISTORY OF N/A 12/20/2022 EPS with Ablation, [facility] TONSILLECTOMY HX TONSILLECTOMY PRIMARY/SECONDARY Tons (more content not included)... Normal [facility] CTA CHEST (NONGATED) W IVCON on 03-29-2023 CTA CHEST (NONGATED) W IVCON * * *Final Report* * * DATE OF EXAM: Mar 29 2023 8:30AM [facility] 0123 - CTA CHEST (NONGATED) W IVCON / PROCEDURE REASON: multiple diagnoses * * * * Physician Interpretation * * * * CTA of the chest dated 03/29/2023 8:30 AM Comparison: 01/06/2006 History: 77 years old Male with history of atrial fibrillation status post RFA/PVI of the pulmonary vein ostia in 12/20/2022. There is a concern for pulmonary venous patency. Technique: Multi-detector CT technology was employed. Axial, sequential imaging with prospective gating was performed of the chest following the IV administration of contrast material. A low-osmolar contrast agent was used (100 cc of Omnipaque 350). CT Dose-Length Product (DLP): [address] Dose Reduction Employed: Automated exposure control was utilized For optimization of anatomic evaluation, multiplanar reconstruction, maximum intensity projections, and advanced 3-D off-line postprocessing were performed on a dedicated stand-alone workstation under the direct supervision of the interpreting physician. RESULT: Potential study limitations: None. The chest wall, mediastinum, pericardium, and pulmonary arteries are unremarkable. No significant adenopathy is identified in the axilla, mediastinum, and miryam. Lungs: Central airways are patent. There are no consolidations, pleural effusions, or pneumothorax. There is a 6 mm nodule in the right lower lobe (series 8 image 392), and another 2 mm nodule in the right lower lobe (series 8 image 373). Another small 2 mm nodule is noted within the right lower lobe (series 8 image 338). The cardiac chambers are normal in size. VASCULAR WITH ADVANCED 3-D OFF-LINE POSTPROCESSING: The left atrium and atrial appendage show no evidence of thrombus. The left atrium receives 4 widely patent pulmonary veins without complication from the RFA/PVI procedure. The right middle vein is a branch of the right superior pulmonary vein. No pulmonary vein stenosis is noted. The coronary sinus drains into the right atrium normally and is widely patent. The aortic valve is trileaflet, and demonstrates mild calcifications. The visualized portions of the ascending and descending thoracic aorta are of normal size. There is moderate to severe atherosclerotic disease noted. There is no acute aortic pathology, such as dissection, intramural hematoma, or contained rupture. The coronary arteries have normal origins and courses. There are severe coronary calcifications identified, though this study was not optimized for coronary artery evaluation. The limited images of the upper abdomen are unremarkable. IMPRESSION: 1. Normal pulmonary venous anatomy without pulmonary vein stenosis. 2. No left atrial or left atrial appendage thrombus. 3. Coronary artery disease with severe coronary artery calcifications. 4. Subcentimeter nodules noted within the right lower lobe, could represent underlying infection or inflammation. Follow-up in 3-6 months is recommended. Feather Drying Machine Operator: SIA Transcribe Date/Time: Mar 30 2023 2:37P Dictated by : XAVI AREVALO MD This examination was interpreted and the report reviewed and electronically signed by: XAVI AREVALO MD on Mar 30 2023 2:54PM EST [id number] Normal [facility] ECHOon 03-29-2023 Echocardiography Echocardiography Rep ort: Transthoracic Echo [facility] Date of service: 03/29/2023 9:34:10 AM HOSPITAL Ordering physician: TIMOTHY WALKER Indication: Sustained atrial fibrillation Technologist: Luma Smalls [facility] Interpreting physician: Fabricio Jamison MD PATIENT: Name: MR. SHELTON FOX : 1945 Age: 77 years Gender: M Previous cardiovascular interventions: Afib Ablation (12/2022) Primary rhythm: sinus. Secondary rhythm: PAC. Height: 177.80 cm BSA: 1.97 m Weight: 78.65 kg BMI: 24.9 kg/m Heart rate 70 bpm Color Doppler was utilized to interrogate the cardiac valves assessed and spectral Doppler was utilized to determine the flow velocities and pressure gradients reported in this exam. MEASUREMENTS: Value Indexed Normal Max aortic dimension 2.9 cm Ao < 3.8 Left atrial volume 86 ml (biplane A-L) 43 ml/m Arlyn <= 34 LV ID (diastole) 5.2 cm (2D) 2.66 cm/m LV ID (systole) 4.1 cm (2D) 2.10 cm/m IVS, leaflet tips 1.0 cm (2D) Posterior wall thickness 1.0 cm (2D) Left ventricular mass 204 g (2D) 103 g/m LV stroke volume 71 ml (2D biplane) LV end diastolic volume 143 ml (2D biplane) 72.4 ml/m 34<=EDVi<75 LV end systolic volume 72 ml (2D biplane) 36.5 ml/m Ejection Fraction 50 % (2D biplane) EF > 52 FINDINGS: LEFT VENTRICLE The left ventricle is normal in size. Left ventricular systolic function is mildly decreased globally. Indeterminate left ventricular diastolic dysfunction due to >2+ MR. Mitral annular lateral E/e': 8.8. Mitral annular septal E/e': 15.1. Wall Motion: All scored segments are normal. RIGHT VENTRICLE The right ventricle is normal in size. Right ventricular systolic function is normal. RV systolic tissue Doppler velocity is 13.0 cm/s. Tricuspid annular displacement is 2.4 cm. Estimated right ventricular systolic pressure is 27 mmHg consistent with normal pulmonary artery pressures. Estimated right atrial pressure is 3 mmHg based on IVC assessment. LEFT ATRIUM The left atrial cavity is moderately dilated. Pulmonary Veins: The pulmonary venous pattern showed blunted systolic flow. RIGHT ATRIUM The right atrial cavity is normal in size. Inferior Vena Cava: The inferior vena cava appears normal measuring 1.3 cm. The vessel decreases greater than 50 percent with inspiration. MITRAL VALVE There is mild mitral annular calcification observed posterior. There is moderate (2+) mitral valve regurgitation. There is mild thickening. Regurgitant orifice area (PISA) is 0.18 cm . The pressure half time is 78 msec. The peak mitral E/A ratio is 2.61. The average mitral E/e' ratio is 11.9. The mitral flow deceleration time is 268 msec. TRICUSPID VALVE The tricuspid valve leaflets are structurally normal. There is mild (1+ - 2+) tricuspid valve regurgitation. AORTIC VALVE There is no aortic valve regurgitation. Tricuspid aortic valve. There is mild thickening. PULMONIC VALVE There is trace pulmonic valve regurgitation. There is no thickening. AORTA The visualized aorta is normal in size. Measurements - Sinus: 2.6 cm. Mid ascending aorta 2.9 cm. PULMONARY ARTERIES The pulmonary arteries are unseen or not interrogated. INTERATRIAL SEPTUM There is no evidence of intracardiac shunting as detected by Doppler. INTERVENTRICULAR SEPTUM The interventricular septum is normal. PERICARDIUM There is no pericardial effusion. There is an epicardial fat pad. CONCLUSIONS: - Exam indication: Sustained atrial fibrillation - The left ventricle is normal [...] patient in sinus rhythm on todays exam. * * * Final * * * CC [facility] : [id number] Normal [facility] NURSING PROGon 03-29-2023 NURSING PROG HNO ID: [id number] Author: Cassidy Munoz, Qm Nurse Service: ? Author Type: Qm Nurse Type: Nursing Progress Note Filed: 03/29/2023 11:04 AM Note Text: Applied event monitor. Pt verbalized understanding of monitor use and appropriately demonstrated recording a baseline. Spouse present for instruction. Normal [facility] CNOVon 03-24-2023 CNOV Office Visit (TOM ANG) ----- SHELTON FOX ([id number]) 1945 M Date Time Provider Department 03/24/23 2:30 PM ELENA WATKINS During your visit today, we recorded the following information about you: Pulse Respiration Blood pressure Weight 78/minute 16/minute 132/64 77.1 kg Height 1.791 m Elena Watkins APRN.GANG HEMSTITCHING MACHINE OPERATOR 03/25/2023 11:33 AM Signed Shelton Fox is a 77 year old male presents for yearly evaluation of carotid disease. He is a prior [facility] pt, and established care with Dr. Caba a year ago at the [place] office, following [facility]'s prison. Annual Carotid US was requested. Pt has [...] cause unspecified Arthritis Atherosclerotic heart disease of [place] coronary artery without angina pectoris Atrial fibrillation [...] ACETBLR/PROX FEM PROSTC AGRFT/ALGRFT 04/2012 Dr. Wood> [facility]. ARTHRP KNE CONDYLEANDPLATU MEDIALANDLAT COMPARTMENTS Right COLONOSCOPY W/BIOPSY SINGLE/MULTIPLE 08/24/2006 EGD 12/01/2020 EYE SURGERY HX JOINT REPLACEMENT HX LEFT HEART CATH,PERCUTANEOUS 10/06/2022 OPEN REPAIR OF ROTATOR CUFF ACUTE 10/03/2008 Rotator cuff repair-right PAST SURGICAL HISTORY OF right knee scope PAST SURGICAL HISTORY OF cataract both eyes PAST SURGICAL HISTORY OF N/A 12/20/2022 EPS with Ablation, [facility] TONSILLECTOMY HX TONSILLECTOMY PRIMARY/SECONDARY Tonsillectomy and [...] 5 mg by mouth twice daily. clopidogrel (more content not included)... Normal [facility] Ivette 02-21-2023 NAEL Telephone (DAVE) ----- SHELTON FOX ([id number]) 1945 M Date Time Provider Department 02/21/23 PHI CABA During your visit today, we recorded the following information about you: Keila Renteria LPN 02/21/2023 1:31 PM Signed Spouse, Ry, calling in to Nurse's Line to advise that patient is experiencing head pain and blurred vision. Patient went to his chromosomal disorders counselor/opthalmology who cleared him there. Spouse states there [...] the closest medical facility to be evaluated. Keila Renteria LPN February 21, 2023 1:28 PM Elena Watkins APRN.GANG HEMSTITCHING MACHINE OPERATOR 02/21/2023 1:58 PM Signed Noted and agree with plan. Thank you, Elena Watkins APRN.GANG HEMSTITCHING MACHINE OPERATOR Allergies As of Date: 02/21/2023 Noted Allergy Reaction INDOCIN (INDOMETHACIN SODIUM) 05/05/2005 6 - Diarrhea MOBIC (MELOXICAM) 08/16/2014 6 - Diarrhea Date Reviewed: 01/17/2023 Reviewed by: Yasmeen Oliveros Ma - Fully Assessed Reason for Visit: Patient Update [1234] Cmt: Head pain and blurred vision Prescriptions as of 02/21/2023 - lisinopril 2.5 mg tablet Take 1 tablet by mouth once daily. - predniSONE (DELTASONE) 10 mg tablet Take 1 tablet by mouth as needed. - hydrOXYchloroQUINE (PLAQUENIL) 200 mg tablet Take 200 mg by mouth twice daily. - spironolactone (ALDACTONE) 25 mg tablet Take 25 mg by mouth once daily. - pantoprazole DR (PROTONIX) 20 mg tablet Take 1 tablet by mouth daily before breakfast. Take on empty stomach, 1/2 hr before meal. - simvastatin (ZOCOR) 20 mg tablet Take 1 tablet by mouth once daily. - amiodarone (PACERONE) 200 mg tablet Take 1 tablet by mouth three times daily for 21 doses. TID for 7 days followed by 200 mg once daily for 3 months (Total of 111 tabs) - multivit with minerals/lutein (MULTIVITAMIN 50 PLUS ORAL) Take 1 tablet by mouth once daily. - JARDIANCE 10 mg tablet Take 10 mg by mouth once daily. - carvedilol (COREG) 3.125 mg tablet Take 6.25 mg by mouth twice daily. - allopurinol (ZYLOPRIM) 100 mg tablet TAKE 1 TABLET BY MOUTH TWICE A DAY - apixaban (ELIQUIS) 5 mg tab(s) Take 5 mg by mouth twice daily. - clopidogrel (PLAVIX) 75 mg tablet Take 75 mg by mouth once daily. - Melatonin 5 mg cap Take 5 mg by mouth daily at bedtime. - furosemide (LASIX) 40 mg tablet Take 1 tablet by mouth once daily. - sildenafil (VIAGRA) 100 mg tablet Take 1/2 to 1 tablet by mouth 1 hour prior to anticipated intercourse. Facility-Administered Medications as of 02/21/2023 - perflutren lipid microspheres 1.3 mL in NaCl (PF) 0.9% 10 mL injection (DEFINITY) - sodium chloride 0.9 % (flush) 10 mL (BD POSIFLUSH) - perflutren lipid microspheres 1.3 mL in NaCl (PF) 0.9% 10 mL injection (DEFINITY) - sodium chloride 0.9 % (flush) 10 mL (BD POSIFLUSH) Meds Comments as of 07/16/2022: Pt reports no med changes in the last month 07/16/2022TP Problem List As Of Date 02/21/2023 Noted Resolved Mixed hyperlipidemia [E78.2] 05/05/2005 BENIGN HYPERTENSION [I10] 05/05/2005 GOUT NOS [M10.9] ALLERGIC RHINITIS NOS [J30.9] HEPATOMEGALY [R16.0] 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] 08/24/2006 DIVERTICULOSIS OF COLON W/O BLEED [K57.30] 08/24/2006 BENIGN NEOPLASM LG BOWEL [D12.6] 08/24/2006 Pain in limb [M79.609] 10/09/2007 10/30/2018 Disturbance of skin sensation [R20.9] 10/09/2007 10/30/2018 ANKLE ENTHESOPATHY NEC [M77.50] 07/05/2008 CONGENITAL PES PLANUS [Q66.50] 07/05/2008 Carotid stenosis, asymptomatic, bilateral [I65.*01/17/2009 Avascular necrosis (HCC) [M87.00] 08/24/2010 01/17/2023 Shoulder joint replacement 09/28/2010 Shoulder joint replacement by other means [Z96.*10/01/2010 Other physical therapy [GHF0362] 10/01/2010 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] 06/28/2011 Gastroesophageal reflux disease [K21.9] 04/27/2017 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 PAD (peripheral artery disease) ([facility]) [I73.9] 05/01/2019 Atrial fibrillation ([facility]) [I48.91] 08/30/2022 Ischemic cardiomyopathy [I25.5] Status post catheter ablation of atrial fibrill*12/21/2022 Encounter Status:Closed by ELENA WATKINS on 02/21/23 [facility] Basophil percentageOrdered B y: Dr. Seo on 01-04-2023 Bilirubin [Mass/Vol] 0.70 mg/dL 0.20-1.00 [facility] Comment on above: For patients on eltr ombopag therapy, use of Dimension [place] TBIL is not recommended. Chloride [Moles/Vol] 108 mmol/L 98-107 [facility] Glucose [Mass/Vol] 131 mg/dL 74-106 [facility] Comment on above: Fasting Glucose resu lt greater than or equal to 126 mg/dL suggests DIABETES MELLITUS per A.D.A. criteria. Potassium [Moles/Vol] 3.8 mmol/L 3.5-5.1 [facility] Protein [Mass/Vol] 6.9 g/dL 6.4-8.2 [facility] Sodium [Moles/Vol] 140 mmol/L 136-145 [facility] Laboratory - Chemistry and C hemistry - challengeOrdered By: Dr. Seo on 01-04-2023 ALP [Catalytic activity/Vol] 76 U/L 45-117 [facility] ALT [Catalytic activity/Vol] 33 U/L 16-61 [facility] CO2 [Moles/Vol] 24.0 mmol/L 21.0-32.0 [facility] Globulin (S) [Mass/Vol] 3.4 g/dL 2.2-4.2 [facility] Urea nitrogen/Creatinine [Mass ratio] 23.1 mg/mg 10-20 [facility] No Panel InformationOrdered By: Dr. Seo on 01-04-2023 Estimated GFR (MDRD) Amer 85 mL/min >60 [facility] Comment on above: GFR Calc Estimated GFR (MDRD) Non-Af Amer 70 mL/min >60 [facility] Comment on above: Non- GFR Calc Serum or plasma albumin mikel urement (mass/volume)Ordered By: Dr. Seo on 01-04-2023 Albumin [Mass/Vol] 3.5 g/dL 3.2-5.0 [facility] Serum or plasma albumin/glob ulin mass ratioOrdered By: Dr. Seo on 01-04-2023 Albumin/Globulin [Mass ratio] 1.0 {ratio} 0.9-2.4 [facility] Serum or plasma calcium mikel urement (mass/volume)Ordered By: Dr. Seo on 01-04-2023 Calcium [Mass/Vol] 9.1 mg/dL 8.5-10.1 [facility] Serum or plasma creatinine m easurement (mass/volume)Ordered By: Dr. Seo on 01-04-2023 Creatinine [Mass/Vol] 1.08 mg/dL 0.70-1.30 [facility] Comment on above: The validity of the calculated GFR & GFRAA in patients over 70 years has not been determined. Clinical correlation is essential. Serum or plasma urea nitroge n measurement (mass/volume)Ordered By: Dr. Seo on 01-04-2023 Urea nitrogen [Mass/Vol] 25 mg/dL 7-18 [facility] Serum or plasma uric acid me asurement (mass/volume)Ordered By: Dr. Seo on 01-04-2023 Urate [Mass/Vol] 3.7 mg/dL 3.5-7.2 [facility] Comment on above: The drugs N-Acetylcy steine and Metamizole may falsely depress this assay. Thin prep Papanicolaou smear with manual screeningOrdered By: Dr. Seo on 01-04-2023 Thin prep Papanicolaou smear with manual screening 17 U/L 15-37 [facility] Thin prep Papanicolaou smear with manual screening 8 5-15 [facility] Absolute lymphocyte countOrd ered By: Merrick Abreu on 12-25-2022 Lymphocytes Auto (Unsp spec) [#/Vol] 2.16 10*3/uL 0.83-4.51 [facility] Basophil percentageOrdered B y: Merrick Abreu on 12-25-2022 Basophils/100 WBC (Bld) 0.3 % 0-1 [facility] Chloride [Moles/Vol] 111 mmol/L 98-107 [facility] Eosinophils/100 WBC (Bld) 1.5 % 0-5 [facility] Glucose [Mass/Vol] 106 mg/dL 74-106 [facility] Comment on above: Fasting Glucose resu lt from 100 to 125 mg/dL suggests IMPAIRED HOMEOSTASIS per A.D.A. criteria. Neutrophils (Bld) [#/Vol] 6.7 10*3/uL 2.0-7.7 [facility] Neutrophils/100 WBC (Bld) 68.4 % 47-70 [facility] Potassium [Moles/Vol] 3.7 mmol/L 3.5-5.1 [facility] Sodium [Moles/Vol] 142 mmol/L 136-145 [facility] WBC (Bld) [#/Vol] 9.7 10*3/uL 4.4-11.0 [facility] Basophil percentageOrdered B y: Dr. Saldaña on 12-25-2022 Bilirubin [Mass/Vol] 0.90 mg/dL 0.20-1.00 [facility] Comment on above: For patients on eltr ombopag therapy, use of Dimension [place] TBIL is not recommended. Protein [Mass/Vol] 6.8 g/dL 6.4-8.2 [facility] Blood erythrocytes count (nu mber/volume)Ordered By: Merrick Abreu on 12-25-2022 RBC (Bld) [#/Vol] 4.31 10*6/uL 4.6-6.2 [facility] Blood hemoglobin measurement (mass/volume)Ordered By: Merrick Abreu on 12-25-2022 Hemoglobin (Bld) [Mass/Vol] 12.1 g/dL 13.0-16.5 [facility] Blood lymphocytes/100 leukoc ytesOrdered By: Merrick Abreu on 12-25-2022 Lymphocytes/100 WBC (Bld) 22.2 % 19-41 [facility] Blood monocytes/100 leukocyt esOrdered By: Merrick Abreu on 12-25-2022 Monocytes/100 WBC (Bld) 6.9 % 0-10 [facility] Blood platelet mean volumeOr dered By: Merrick Abreu on 12-25-2022 Platelet mean volume (Bld) [Entitic vol] 10.5 fL 6.2-12.0 [facility] Determination of erythrocyte mean corpuscular volume (MCV)Ordered By: Merrick Abreu on 12-25-2022 MCV (RBC) [Entitic vol] 88.9 fL 80-94 [facility] Direct bilirubinOrdered By: Dr. Saldaña on 12-25-2022 Bilirubin.direct [Mass/Vol] 0.29 mg/dL 0.00-0.30 [facility] Hematocrit Auto (Bld) [Volum e fraction]Ordered By: Merrick Abreu on 12-25-2022 Hematocrit (Bld) [Volume fraction] 38.3 % 40-54 [facility] INR in Blood by Coagulation assayOrdered By: Merrick Abreu on 12-25-2022 INR Coag (Bld) [Relative time] 1.7 {INR} [facility] Laboratory - Chemistry and C hemistry - challengeOrdered By: Dr. Saldaña on 12-25-2022 ALP [Catalytic activity/Vol] 96 U/L 45-117 [facility] ALT [Catalytic activity/Vol] 60 U/L 16-61 [facility] Globulin (S) [Mass/Vol] 3.2 g/dL 2.2-4.2 [facility] Laboratory - Chemistry and C hemistry - challengeOrdered By: Merrick Abreu on 12-25-2022 CO2 [Moles/Vol] 23.0 mmol/L 21.0-32.0 [facility] Magnesium [Mass/Vol] 2.4 mg/dL 1.6-2.6 [facility] Natriuretic peptide B (Bld) [Mass/Vol] 466.0 pg/mL 0-100 [facility] Urea nitrogen/Creatinine [Mass ratio] 17.0 mg/mg 10- [facility] Laboratory - CoagulationOrde red By: Merrick Abreu on 12-25-2022 aPTT Coag (Bld) [Time] 32.6 s 24.1-36.2 [facility] PT Coag (PPP) [Time] 19.8 s 11.7-14.9 [facility] Laboratory - Hematology and Cell countsOrdered By: Merrick Abreu on 12-25-2022 Erythrocyte distribution width (RBC) [Entitic vol] 54.8 fL 35.1-43.9 [facility] Erythrocyte distribution width (RBC) [Ratio] 17.1 % 11.6-14.6 [facility] Immature granulocytes/100 WBC (Bld) 0.700 % 0.0-0.9 [facility] Comment on above: IG% - Immature Granu locytes (promyelocytes, myelocytes and metamyelocytes) > 1% indicates that a LEFT SHIFT is Present. MCH (RBC) [Entitic mass] 28.1 pg 27.0-32.0 [facility] Nucleated RBC/100 WBC (Bld) [Ratio] 0 % 0-5 [facility] MCHC Auto (RBC) [Mass/Vol]Or dered By: Merrick Abreu on 12-25-2022 MCHC (RBC) [Mass/Vol] 31.6 g/dL [facility] No Panel InformationOrdered By: Merrick Abreu on 12-25-2022 Troponin I High Sensitivity 161 pg/mL 3.0-78.0 [facility] Comment on above: Critical Result(s) C alled at: 09:52:34 12/25/2022 by: Keith Sanchez. Jersey Garcia RN (ER). Results read back by same. Please Note: New Test Units and Gender Specific Reference Ranges. For more information see Policy Stat Procedure [place] High Sensitivity Troponin (TNIH) and attachments. Estimated Creatinine Clearance Calc 57.03 ml/min [facility] Estimated GFR (MDRD) Amer 82 mL/min >60 [facility] Comment on above: GFR Calc Estimated GFR (MDRD) Non-Af Amer 68 mL/min >60 [facility] Comment on above: Non- GFR Calc Platelets bldOrdered By: Ben Abreu on 12-25-2022 Platelets (Bld) [#/Vol] 147 10*3/uL 150-450 [facility] Serum or plasma albumin mikel urement (mass/volume)Ordered By: Dr. Saldaña on 12-25-2022 Albumin [Mass/Vol] 3.6 g/dL 3.2-5.0 [facility] Serum or plasma calcium mikel urement (mass/volume)Ordered By: Merrick Abreu on 12-25-2022 Calcium [Mass/Vol] 9.0 mg/dL 8.5-10.1 [facility] Serum or plasma creatinine m easurement (mass/volume)Ordered By: Merrick Abreu on 12-25-2022 Creatinine [Mass/Vol] 1.12 mg/dL 0.70-1.30 [facility] Comment on above: The validity of the calculated GFR & GFRAA in patients over 70 years has not been determined. Clinical correlation is essential. Serum or plasma urea nitroge n measurement (mass/volume)Ordered By: Merrick Abreu on 12-25-2022 Urea nitrogen [Mass/Vol] 19 mg/dL 7-18 [facility] Thin prep Papanicolaou smear with manual screeningOrdered By: Dr. Saldaña on 12-25-2022 Thin prep Papanicolaou smear with manual screening 34 U/L 15-37 [facility] Thin prep Papanicolaou smear with manual screeningOrdered By: Merrick Abreu on 12-25-2022 Thin prep Papanicolaou smear with manual screening 8 5-15 [facility] Absolute lymphocyte countOrd ered By: Dr. Seo on 11-16-2022 Lymphocytes Auto (Unsp spec) [#/Vol] 3.20 10*3/uL 0.83-4.51 [facility] Basophil percentageOrdered B y: Dr. Seo on 11-16-2022 Basophils/100 WBC (Bld) 0.4 % 0-1 [facility] Bilirubin [Mass/Vol] 0.50 mg/dL 0.20-1.00 [facility] Comment on above: For patients on eltr ombopag therapy, use of Dimension [place] TBIL is not recommended. Chloride [Moles/Vol] 112 mmol/L 98-107 [facility] Eosinophils/100 WBC (Bld) 0.9 % 0-5 [facility] Glucose [Mass/Vol] 100 mg/dL 74-106 [facility] Comment on above: Fasting Glucose resu lt from 100 to 125 mg/dL suggests IMPAIRED HOMEOSTASIS per A.D.A. criteria. Neutrophils (Bld) [#/Vol] 7.7 10*3/uL 2.0-7.7 [facility] Neutrophils/100 WBC (Bld) 63.7 % 47-70 [facility] Potassium [Moles/Vol] 3.9 mmol/L 3.5-5.1 [facility] Protein [Mass/Vol] 7.0 g/dL 6.4-8.2 [facility] Sodium [Moles/Vol] 142 mmol/L 136-145 [facility] WBC (Bld) [#/Vol] 12.1 10*3/uL 4.4-11.0 [facility] Blood erythrocytes count (nu mber/volume)Ordered By: Dr. Seo on 11-16-2022 RBC (Bld) [#/Vol] 4.61 10*6/uL 4.6-6.2 [facility] Blood hemoglobin measurement (mass/volume)Ordered By: Dr. Seo on 11-16-2022 Hemoglobin (Bld) [Mass/Vol] 13.1 g/dL 13.0-16.5 [facility] Blood lymphocytes/100 leukoc ytesOrdered By: Dr. Seo on 11-16-2022 Lymphocytes/100 WBC (Bld) 26.4 % 19-41 [facility] Blood monocytes/100 leukocyt esOrdered By: Dr. Seo on 11-16-2022 Monocytes/100 WBC (Bld) 7.6 % 0-10 [facility] Blood platelet mean volumeOr dered By: Dr. Seo on 11-16-2022 Platelet mean volume (Bld) [Entitic vol] 10.8 fL 6.2-12.0 [facility] Determination of erythrocyte mean corpuscular volume (MCV)Ordered By: Dr. Seo on 11-16-2022 MCV (RBC) [Entitic vol] 92.8 fL 80-94 [facility] Erythrocyte sedimentation ra teOrdered By: Dr. Seo on 11-16-2022 ESR (Bld) [Velocity] 15 mm/h 0-20 [facility] Hematocrit Auto (Bld) [Volum e fraction]Ordered By: Dr. Seo on 11-16-2022 Hematocrit (Bld) [Volume fraction] 42.8 % 40-54 [facility] Laboratory - Chemistry and C hemistry - challengeOrdered By: Dr. Seo on 11-16-2022 ALP [Catalytic activity/Vol] 97 U/L 45-117 [facility] ALT [Catalytic activity/Vol] 96 U/L 16-61 [facility] CO2 [Moles/Vol] 23.0 mmol/L 21.0-32.0 [facility] Globulin (S) [Mass/Vol] 3.4 g/dL 2.2-4.2 [facility] Urea nitrogen/Creatinine [Mass ratio] 21.7 mg/mg 10-20 [facility] Laboratory - Hematology and Cell countsOrdered By: Dr. Seo on 11-16-2022 Erythrocyte distribution width (RBC) [Entitic vol] 53.0 fL 35.1-43.9 [facility] Erythrocyte distribution width (RBC) [Ratio] 15.7 % 11.6-14.6 [facility] Immature granulocytes/100 WBC (Bld) 1.000 % 0.0-0.9 [facility] Comment on above: IG% - Immature Granu locytes (promyelocytes, myelocytes and metamyelocytes) > 1% indicates that a LEFT SHIFT is Present. MCH (RBC) [Entitic mass] 28.4 pg 27.0-32.0 [facility] Nucleated RBC/100 WBC (Bld) [Ratio] 0.2 % 0-5 [facility] MCHC Auto (RBC) [Mass/Vol]Or dered By: Dr. Seo on 11-16-2022 MCHC (RBC) [Mass/Vol] 30.6 g/dL 32-36 [facility] No Panel InformationOrdered By: Dr. Seo on 11-16-2022 Anti-Nuclear Antibody Screen Negative Negative [facility] Comment on above: Performed at: [address] [place] [id number] Director: Emmanuel Lazcano PhD, Phone: [phone] Estimated GFR (MDRD) Amer 79 mL/min >60 [facility] Comment on above: GFR Calc Estimated GFR (MDRD) Non-Af Amer 66 mL/min >60 [facility] Comment on above: Non- GFR Calc Hepatitis B Surface Antigen Non-Reactive Nonreactive [facility] Hepatitis C Antibody Non-Reactive Nonreactive [facility] Comment on above: Non Reactive: < 0.8 Equivocal: >/= 0.8 to < 1.0 Reactive: >/= 1.0The CDC recommends that a reactive/equivocal HCV antibody result be followed up by the HCV Nucleic Acid Amplificationtest ([id number]) Platelets bldOrdered By: Dr. Seo on 11-16-2022 Platelets (Bld) [#/Vol] 240 10*3/uL 150-450 [facility] Serum cyclic citrullinated p eptide IgG antibody assay (units/volume)Ordered By: Dr. Seo on 11-16-2022 Cyclic citrullinated peptide IgG Qn 3 units 0-19 [facility] Comment on above: Negative <20 Weak po sitive 20 - 39 Moderate positive 40 - 59 Strong positive >59Performed at: [address] [place], [place] [address] [place], [place] [id number] Director: Blaine Martins PhD, Phone: [phone] at: [address] [id number] Director: Emmanuel Lazcano PhD, Phone: [phone] Serum hepatitis B virus surf yanira antibody IgG detectionOrdered By: Dr. Seo on 11-16-2022 HBV surface IgG Ql (S) Non-Reactive [facility] Comment on above: Non Reactive: Incons istent with immunity less than <10 mIU/mL Reactive: Consistent with immunity greater than or equal to 10 mIU/mL Serum or plasma C reactive p rotein measurement (mass/volume)Ordered By: Dr. Seo on 11-16-2022 CRP [Mass/Vol] mg/L 0.0-3.0 [facility] Comment on above: C-Reactive Protein ( CRP) provides useful information for thediagnosis, therapy and monitoring of inflammatory processesand associated diseases. For the evaluation of Relative Riskfor Cardiovascular Disease, a High Sensitivity CRP (HSCRP)should be ordered. Serum or plasma albumin mikel urement (mass/volume)Ordered By: Dr. Seo on 11-16-2022 Albumin [Mass/Vol] 3.6 g/dL 3.2-5.0 [facility] Serum or plasma albumin/glob ulin mass ratioOrdered By: Dr. Seo on 11-16-2022 Albumin/Globulin [Mass ratio] 1.1 {ratio} 0.9-2.4 [facility] Serum or plasma calcium mikel urement (mass/volume)Ordered By: Dr. Seo on 11-16-2022 Calcium [Mass/Vol] 8.9 mg/dL 8.5-10.1 [facility] Serum or plasma creatinine m easurement (mass/volume)Ordered By: Dr. Seo on 11-16-2022 Creatinine [Mass/Vol] 1.15 mg/dL 0.70-1.30 [facility] Comment on above: The validity of the calculated GFR & GFRAA in patients over 70 years has not been determined. Clinical correlation is essential. Serum or plasma urea nitroge n measurement (mass/volume)Ordered By: Dr. Seo on 11-16-2022 Urea nitrogen [Mass/Vol] 25 mg/dL 7-18 [facility] Serum rheumatoid factor dete ctionOrdered By: Dr. Seo on 11-16-2022 Rheumatoid factor Ql (S) < 10.0 IU/mL <15 [facility] Thin prep Papanicolaou smear with manual screeningOrdered By: Dr. Seo on 11-16-2022 Thin prep Papanicolaou smear with manual screening 50 U/L 15-37 [facility] Thin prep Papanicolaou smear with manual screening 7 5-15 [facility] Thin prep Papanicolaou smear with manual screening Negative . [facility] Comment on above: HLA-B*27 CwaqyaouS22 allele interpretation for all loci based on IMGT/HLAdatabase version 3.44This test was developed and its performance characteristicsdetermined by [employer]. It has not been cleared or approvedby the Food and Drug Administration.[facility] CLIA ID Number [id number] test was performed using PCR (Polymerase ChainReaction)/SSOP (Sequence Specific Oligonucleotide Probes)technique. SBT (Sequence Based Typing) and/or SSP(Sequence Specific Primers) may be used as supplementalmethods when necessary. Please contact [facility] at if you have any questions. Director of [facility] Dr Blaine Martins, PhD Basophil percentageOrdered B y: Dr. Vernon on 11-12-2022 Chloride [Moles/Vol] 110 mmol/L 98-107 [facility] Glucose [Mass/Vol] 138 mg/dL 74-106 [facility] Comment on above: Fasting Glucose resu lt greater than or equal to 126 mg/dL suggests DIABETES MELLITUS per A.D.A. criteria. Potassium [Moles/Vol] 4.2 mmol/L 3.5-5.1 [facility] Sodium [Moles/Vol] 136 mmol/L 136-145 [facility] Laboratory - Chemistry and C hemistry - challengeOrdered By: Dr. Vernon on 11-12-2022 CO2 [Moles/Vol] 22.0 mmol/L 21.0-32.0 [facility] Urea nitrogen/Creatinine [Mass ratio] 22.3 mg/mg 10-20 [facility] No Panel InformationOrdered By: Dr. Vernon on 11-12-2022 Estimated GFR (MDRD) Amer 95 mL/min >60 [facility] Comment on above: GFR Calc Estimated GFR (MDRD) Non-Af Amer 78 mL/min >60 [facility] Comment on above: Non- GFR Calc Serum or plasma calcium mikel urement (mass/volume)Ordered By: Dr. Vernon on 11-12-2022 Calcium [Mass/Vol] 8.8 mg/dL 8.5-10.1 [facility] Serum or plasma creatinine m easurement (mass/volume)Ordered By: Dr. Vernon on 11-12-2022 Creatinine [Mass/Vol] 0.98 mg/dL 0.70-1.30 [facility] Comment on above: The validity of the calculated GFR & GFRAA in patients over 70 years has not been determined. Clinical correlation is essential. Serum or plasma urea nitroge n measurement (mass/volume)Ordered By: Dr. Vernon on 11-12-2022 Urea nitrogen [Mass/Vol] 22 mg/dL 7-18 [facility] Thin prep Papanicolaou smear with manual screeningOrdered By: Dr. Vernon on 11-12-2022 Thin prep Papanicolaou smear with manual screening 4 5-15 [facility] XR FOOT GENERAL 3V AP/LAT/OB L RIGHTon 11-03-2022 [facility] CBC panel Auto (Bld)on 10-25 Erythrocyte distribution width (RBC) [Ratio] 14.5 % 11.5 - 15.0 % [facility] Hematocrit (Bld) [Volume fraction] 36.7 % Low 39.0 - 51.0 % [facility] Hemoglobin (Bld) [Mass/Vol] 12.1 g/dL Low 13.0 - 17.0 g/dL [facility] MCH (RBC) [Entitic mass] 29.5 pg 26.0 - 34.0 pg [facility] MCHC (RBC) [Mass/Vol] 33.0 g/dL 30.5 - 36.0 g/dL [facility] MCV (RBC) [Entitic vol] 89.5 fL 80.0 - 100.0 fL [facility] Nucleated RBC (Bld) [#/Vol] <0.01 k/uL [facility] Platelet mean volume (Bld) [Entitic vol] 9.8 fL 9.0 - 12.7 fL [facility] Platelets (Bld) [#/Vol] 247 10*3/uL 150 - 400 k/uL [facility] RBC (Bld) [#/Vol] 4.10 10*6/uL Low 4.20 - 6.0 0 m/uL [facility] WBC (Bld) [#/Vol] 8.48 10*3/uL 3.70 - 11. 00 k/uL [facility] ESR Westergren method (Bld) [Velocity]on 10-25-2022 ESR (Bld) [Velocity] 33 mm/h High 0 - 15 mm/hr [facility] CBC panel Auto (Bld)on 10-11 Erythrocyte distribution width (RBC) [Ratio] 14.6 % 11.5 - 15.0 % [facility] Hematocrit (Bld) [Volume fraction] 38.9 % Low 39.0 - 51.0 % [facility] Hemoglobin (Bld) [Mass/Vol] 12.7 g/dL Low 13.0 - 17.0 g/dL [facility] MCH (RBC) [Entitic mass] 29.7 pg 26.0 - 34.0 pg [facility] MCHC (RBC) [Mass/Vol] 32.6 g/dL 30.5 - 36.0 g/dL [facility] MCV (RBC) [Entitic vol] 90.9 fL 80.0 - 100.0 fL [facility] Nucleated RBC (Bld) [#/Vol] <0.01 k/uL [facility] Platelet mean volume (Bld) [Entitic vol] 9.6 fL 9.0 - 12.7 fL [facility] Platelets (Bld) [#/Vol] 256 10*3/uL 150 - 400 k/uL [facility] RBC (Bld) [#/Vol] 4.28 10*6/uL 4.20 - 6.0 0 m/uL [facility] WBC (Bld) [#/Vol] 11.27 10*3/uL High 3.70 - 11 .00 k/uL [facility] URIC ACID BLOODon 10-11-2022 Urate [Mass/Vol] 4.9 mg/dL 4.0 - 8.1 mg/dL [facility] Basophil percentageOrdered B y: Dr. Vernon on 10-07-2022 Bilirubin [Mass/Vol] 0.60 mg/dL 0.20-1.00 [facility] Comment on above: For patients on eltr ombopag therapy, use of Dimension [place] TBIL is not recommended. Chloride [Moles/Vol] 111 mmol/L 98-107 [facility] Cholesterol [Mass/Vol] 115 mg/dL <200 [facility] Comment on above: <200 mg/dL Desirable 200-240 mg/dL Borderline >240 mg/dL High Risk Glucose [Mass/Vol] 103 mg/dL 74-106 [facility] Comment on above: Fasting Glucose resu lt from 100 to 125 mg/dL suggests IMPAIRED HOMEOSTASIS per A.D.A. criteria. Potassium [Moles/Vol] 4.0 mmol/L 3.5-5.1 [facility] Protein [Mass/Vol] 5.9 g/dL 6.4-8.2 [facility] Sodium [Moles/Vol] 143 mmol/L 136-145 [facility] Triglyceride [Mass/Vol] 121 mg/dL <199 [facility] Comment on above: The drugs N-Acetylcy steine and Metamizole may falsely depress this assay.Serum Triglycerides Reference Interval Normal <150 mg/dL Borderline high 150 - 199 mg/dL High 200 - 499 mg/dL Very High > or = 500 mg/dL WBC (Bld) [#/Vol] 9.3 10*3/uL 4.4-11.0 [facility] Blood erythrocytes count (nu mber/volume)Ordered By: Dr. Vernon on 10-07-2022 RBC (Bld) [#/Vol] 3.62 10*6/uL 4.6-6.2 [facility] Blood hemoglobin measurement (mass/volume)Ordered By: Dr. Vernon on 10-07-2022 Hemoglobin (Bld) [Mass/Vol] 10.9 g/dL 13.0-16.5 [facility] Blood platelet mean volumeOr dered By: Dr. Vernon on 10-07-2022 Platelet mean volume (Bld) [Entitic vol] 10.3 fL 6.2-12.0 [facility] Determination of erythrocyte mean corpuscular volume (MCV)Ordered By: Dr. Vernon on 10-07-2022 MCV (RBC) [Entitic vol] 93.9 fL 80-94 [facility] Hematocrit Auto (Bld) [Volum e fraction]Ordered By: Dr. Vernon on 10-07-2022 Hematocrit (Bld) [Volume fraction] 34.0 % 40-54 [facility] Laboratory - Chemistry and C hemistry - challengeOrdered By: Dr. Vernon on 10-07-2022 ALP [Catalytic activity/Vol] 67 U/L 45-117 [facility] ALT [Catalytic activity/Vol] 59 U/L 16-61 [facility] CO2 [Moles/Vol] 24.0 mmol/L 21.0-32.0 [facility] Globulin (S) [Mass/Vol] 2.9 g/dL 2.2-4.2 [facility] Urea nitrogen/Creatinine [Mass ratio] 15.4 mg/mg 10-20 [facility] Laboratory - Hematology and Cell countsOrdered By: Dr. Vernon on 10-07-2022 Erythrocyte distribution width (RBC) [Entitic vol] 52.7 fL 35.1-43.9 [facility] Erythrocyte distribution width (RBC) [Ratio] 15.5 % 11.6-14.6 [facility] MCH (RBC) [Entitic mass] 30.1 pg 27.0-32.0 [facility] MCHC Auto (RBC) [Mass/Vol]Or dered By: Dr. Vernon on 10-07-2022 MCHC (RBC) [Mass/Vol] 32.1 g/dL 32-36 [facility] No Panel InformationOrdered By: Dr. Vernon on 10-07-2022 Estimated Creatinine Clearance Calc 65.18 ml/min [facility] Estimated GFR (MDRD) Amer 96 mL/min >60 [facility] Comment on above: GFR Calc Estimated GFR (MDRD) Non-Af Amer 79 mL/min >60 [facility] Comment on above: Non- GFR Calc Platelets bldOrdered By: Dr. Vernon on 10-07-2022 Platelets (Bld) [#/Vol] 156 10*3/uL 150-450 [facility] Serum or plasma albumin mikel urement (mass/volume)Ordered By: Dr. Vernon on 10-07-2022 Albumin [Mass/Vol] 3.0 g/dL 3.2-5.0 [facility] Serum or plasma albumin/glob ulin mass ratioOrdered By: Dr. Vernon on 10-07-2022 Albumin/Globulin [Mass ratio] 1.0 {ratio} 0.9-2.4 [facility] Serum or plasma calcium mikel urement (mass/volume)Ordered By: Dr. Vernon on 10-07-2022 Calcium [Mass/Vol] 8.7 mg/dL 8.5-10.1 [facility] Serum or plasma cholesterol in HDL measurement (mass/volume)Ordered By: Dr. Vernon on 10-07-2022 Cholesterol in HDL [Mass/Vol] 42 mg/dL >40 [facility] Comment on above: The drugs N-Acetylcy steine and Metamizole may falsely depress this assay. Reference Range HDL <40 mg/dL Low HDL Cholesterol HDL >or= 60 mg/dL High HDL Cholesterol Serum or plasma cholesterol in VLDL measurement (mass/volume)Ordered By: Dr. Vernon on 10-07-2022 Cholesterol in VLDL [Mass/Vol] 24 mg/dL 5-40 [facility] Serum or plasma creatinine m easurement (mass/volume)Ordered By: Dr. Vernon on 10-07-2022 Creatinine [Mass/Vol] 0.98 mg/dL 0.70-1.30 [facility] Comment on above: The validity of the calculated GFR & GFRAA in patients over 70 years has not been determined. Clinical correlation is essential. Serum or plasma low density lipoprotein (LDL) cholesterol measurement (mass/volume)Ordered By: Dr. Vernon on 10-07-2022 Cholesterol in LDL [Mass/Vol] 49 mg/dL 0-130 [facility] Serum or plasma urea nitroge n measurement (mass/volume)Ordered By: Dr. Vernon on 10-07-2022 Urea nitrogen [Mass/Vol] 15 mg/dL 7-18 [facility] Thin prep Papanicolaou smear with manual screeningOrdered By: Dr. Vernon on 10-07-2022 Thin prep Papanicolaou smear with manual screening 22 U/L 15-37 [facility] Thin prep Papanicolaou smear with manual screening 8 5-15 [facility] INR in Blood by Coagulation assayOrdered By: Dr. Vernon on 10-04-2022 INR Coag (Bld) [Relative time] 1.4 {INR} [facility] Laboratory - CoagulationOrde red By: Dr. Vernon on 10-04-2022 aPTT Coag (Bld) [Time] 30.2 s 24.1-36.2 [facility] PT Coag (PPP) [Time] 16.4 s 11.7-14.9 [facility] XR FOOT GENERAL 3V AP/LAT/OB L LEFTon 09-27-2022 [facility] XR Foot - left AP and Latera l and obliqueon 09-27-2022 IMPRESSION: No acute fracture or dislocation Feather Drying Machine Operator: SIA Transcribe Date/Time: Sep 27 2022 9:58A Dictated by : MUNA HARPER MD This examination was interpreted and the report reviewed and electronically signed by: MUNA HARPER MD on Sep 27 2022 10:07AM EST DIVISION OF RADIOLOGY * * *Final Report* * * DATE OF EXAM: Sep 27 2022 9:34AM WOX 5336 - XR FOOT 3V AP/LAT/OBL LT / PROCEDURE REASON: Pain * * * * Physician Interpretation * [...] posterior calcaneal enthesophytes. Vascular calcifications are noted. DIVISION OF RADIOLOGY Provider, [facility] - 09/27/2022 * * *Final Report* * * DATE OF EXAM: Sep 27 2022 9:34AM WOX 5336 - XR FOOT 3V AP/LAT/OBL LT / PROCEDURE REASON: Pain * * * * Physician Interpretation * [...] IMPRESSION IMPRESSION: No acute fracture or dislocation Feather Drying Machine Operator: [facility] Transcribe Date/Time: Sep 27 2022 9:58A Dictated by : MUNA HARPER MD This examination was interpreted and the report reviewed and electronically signed by: MUNA HARPER MD on Sep 27 2022 10:07AM EST [facility] Radiology Study observation (narrative) [facility] XR Foot - left AP and Latera l and obliqueOrdered By: [facility] Provider on 09-27-2022 [facility] US THYROID/PARATHYROIDon [facility] Comprehensive metabolic 2000 panelon 07-22-2022 Albumin [Mass/Vol] 4.6 g/dL 3.9 - 4.9 g/dL [facility] ALP [Catalytic activity/Vol] 78 U/L 38 - 113 U/L [facility] ALT [Catalytic activity/Vol] 21 U/L 10 - 54 U/L [facility] Anion gap [Moles/Vol] 12 mmol/L 9 - 18 mmol/L [facility] AST [Catalytic activity/Vol] 24 U/L 14 - 40 U/L [facility] Bilirubin [Mass/Vol] 0.5 mg/dL 0.2 - 1 .3 mg/dL [facility] Calcium [Mass/Vol] 10.1 mg/dL 8.5 - 10. 2 mg/dL [facility] Chloride [Moles/Vol] 103 mmol/L 97 - 10 5 mmol/L [facility] CO2 [Moles/Vol] 25 mmol/L 22 - 30 mmol/L [facility] Creatinine [Mass/Vol] 1.08 mg/dL 0.73 - 1.22 mg/dL [facility] Estimated Glomerular Filtration Rate 71 mL/min/1.73m >=60 mL/min/1.73m [facility] Glucose [Mass/Vol] 116 mg/dL High 74 - 99 mg/dL [facility] Potassium [Moles/Vol] 5.1 mmol/L 3.7 - 5.1 mmol/L [facility] Protein [Mass/Vol] 7.6 g/dL 6.3 - 8.0 g/dL [facility] Sodium [Moles/Vol] 140 mmol/L 136 - 144 mmol/L [facility] Urea nitrogen [Mass/Vol] 17 mg/dL 9 - 24 mg/dL [facility] T3 Don 07-22-2022 T3 [Mass/Vol] 119 ng/dL 79 - 165 ng/dL [facility] T4 FREE/FREE THYROXon 2022 Free T4 [Mass/Vol] 0.9 ng/dL 0.9 - 1.7 ng/dL [facility] TSH Don 07-22-2022 TSH Qn 2.430 m[IU]/L 0.270 - 4.200 mIU/L [facility] CBC W Auto Differential pane l (Bld)on 07-21-2022 Basophils (Bld) [#/Vol] 0.05 10*3/uL <0.11 k/uL [facility] Basophils/100 WBC (Bld) 0.5 % [facility] Differential cell count method Nom (Bld) Auto [facility] Eosinophils (Bld) [#/Vol] 0.15 10*3/uL <0.46 k/uL [facility] Eosinophils/100 WBC (Bld) 1.5 % [facility] Erythrocyte distribution width (RBC) [Ratio] 13.5 % 11.5 - 15.0 % [facility] Hematocrit (Bld) [Volume fraction] 41.9 % 39.0 - 51.0 % [facility] Hemoglobin (Bld) [Mass/Vol] 13.6 g/dL 13.0 - 17.0 g/dL [facility] Immature granulocytes (Bld) [#/Vol] 0.05 10*3/uL <0.10 k/uL [facility] Immature granulocytes/100 WBC (Bld) 0.5 % [facility] Lymphocytes (Bld) [#/Vol] 3.46 10*3/uL 1.00 - 4.00 k/uL [facility] Lymphocytes/100 WBC (Bld) 35.4 % [facility] MCH (RBC) [Entitic mass] 30.0 pg 26.0 - 34.0 pg [facility] MCHC (RBC) [Mass/Vol] 32.5 g/dL 30.5 - 36.0 g/dL [facility] MCV (RBC) [Entitic vol] 92.5 fL 80.0 - 100.0 fL [facility] Monocytes (Bld) [#/Vol] 0.64 10*3/uL <0.87 k/uL [facility] Monocytes/100 WBC (Bld) 6.6 % [facility] Neutrophils (Bld) [#/Vol] 5.42 10*3/uL 1.45 - 7.50 k/uL [facility] Neutrophils/100 WBC (Bld) 55.5 % [facility] Nucleated RBC (Bld) [#/Vol] <0.01 k/uL [facility] Nucleated RBC/100 WBC (Bld) [Ratio] 0.0 /100 WBC [facility] Platelet mean volume (Bld) [Entitic vol] 9.9 fL 9.0 - 12.7 fL [facility] Platelets (Bld) [#/Vol] 281 10*3/uL 150 - 400 k/uL [facility] RBC (Bld) [#/Vol] 4.53 10*6/uL 4.20 - 6.0 0 m/uL [facility] WBC (Bld) [#/Vol] 9.77 10*3/uL 3.70 - 11. 00 k/uL [facility] XR CHEST 2V FRONTAL/LATon [facility] XR Chest PA and Lateralon IMPRESSION: No acute radiographic abnormality. Feather Drying Machine Operator: PSCB Transcribe Date/Time: Apr 15 2022 12:14P Dictated by : KEYA ALMENDAREZ DO This examination was interpreted and the report reviewed and electronically signed by: KEYA ALMENDAREZ DO on Apr 15 2022 12:17PM [facility] DIVISION OF RADIOLOGY * * *Final Report* * * DATE OF EXAM: Apr 15 2022 12:11PM WOX 5291 - XR CHEST 2V FRONTAL/LAT / PROCEDURE REASON: Acute cough * * * * Physician Interpretation * * * * EXAMINATION: CHEST RADIOGRAPH (2 VIEW FRONTAL & LATERAL) PATIENT/TECHNOLOGIST PROVIDED HISTORY: cough for 2 weeks CLINICAL INFORMATION: 76 years old Male with Acute cough MQ: [id number]_6 EXAM DATE/TIME: 04/15/2022 12:11 PM COMPARISON: Chest radiograph 10/29/2015 RESULT: Lines, tubes, and devices: None. Lungs and pleura: No consolidation. No pleural effusion or pneumothorax. Cardiomediastinal silhouette: Normal cardiopericardial silhouette. Diffuse atherosclerotic calcification of the thoracoabdominal aorta. Bones and soft tissues: Remote healed RIGHT posterior lateral fourth rib fracture. Partially visualized RIGHT shoulder arthroplasty. Endplate degenerative changes in the visualized spine. DIVISION OF RADIOLOGY Provider, [facility] - 04/15/2022 * * *Final Report* * * DATE OF EXAM: Apr 15 2022 12:11PM WOX 5291 - XR CHEST 2V FRONTAL/LAT / PROCEDURE REASON: Acute cough * * * * Physician Interpretation * * * * EXAMINATION: CHEST RADIOGRAPH (2 VIEW FRONTAL & LATERAL) PATIENT/TECHNOLOGIST PROVIDED HISTORY: cough for 2 weeks CLINICAL INFORMATION: 76 years old Male with Acute cough MQ: XC2_6 EXAM DATE/TIME: 04/15/2022 12:11 PM COMPARISON: Chest radiograph 10/29/2015 RESULT: Lines, tubes, and devices: None. Lungs and pleura: No consolidation. No pleural effusion or pneumothorax. Cardiomediastinal silhouette: Normal cardiopericardial silhouette. Diffuse atherosclerotic calcification of the thoracoabdominal aorta. Bones and soft tissues: Remote healed RIGHT posterior lateral fourth rib fracture. Partially visualized RIGHT shoulder arthroplasty. Endplate degenerative changes in the visualized spine. IMPRESSION IMPRESSION: No acute radiographic abnormality. Feather Drying Machine Operator: PSCB Transcribe Date/Time: Apr 15 2022 12:14P Dictated by : KEYA ALMENDAREZ DO This examination was interpreted and the report reviewed and electronically signed by: KEYA ALMENDAREZ DO on Apr 15 2022 12:17PM EST [facility] Radiology Study observation (narrative) [facility] XR Chest PA and LateralOrder ed By: [facility] Provider on 04-15-2022 [facility] CBC W Auto Differential pane l (Bld)on 01-15-2022 Abs Immature Gran <0.03 <0.10 k/uL [facility] Basophils (Bld) [#/Vol] 0.04 10*3/uL <0.11 k/uL [facility] Basophils/100 WBC (Bld) 0.5 % [facility] Differential cell count method Nom (Bld) Auto [facility] Eosinophils (Bld) [#/Vol] 0.09 10*3/uL <0.46 k/uL [facility] Eosinophils/100 WBC (Bld) 1.1 % [facility] Erythrocyte distribution width (RBC) [Ratio] 13.9 % 11.5 - 15.0 % [facility] Hematocrit (Bld) [Volume fraction] 40.5 % 39.0 - 51.0 % [facility] Hemoglobin (Bld) [Mass/Vol] 13.4 g/dL 13.0 - 17.0 g/dL [facility] Immature Gran % 0.3 % [facility] Lymphocytes (Bld) [#/Vol] 2.79 10*3/uL 1.00 - 4.00 k/uL [facility] Lymphocytes/100 WBC (Bld) 35.4 % [facility] MCH (RBC) [Entitic mass] 30.3 pg 26.0 - 34.0 pg [facility] MCHC (RBC) [Mass/Vol] 33.1 g/dL 30.5 - 36.0 g/dL [facility] MCV (RBC) [Entitic vol] 91.6 fL 80.0 - 100.0 fL [facility] Monocytes (Bld) [#/Vol] 0.66 10*3/uL <0.87 k/uL [facility] Monocytes/100 WBC (Bld) 8.4 % [facility] Neutrophils (Bld) [#/Vol] 4.28 10*3/uL 1.45 - 7.50 k/uL [facility] Neutrophils/100 WBC (Bld) 54.3 % [facility] Nucleated RBC (Bld) [#/Vol] 10*3/uL <0.01 k/uL [facility] Nucleated RBC/100 WBC (Bld) [Ratio] 0.0 /100 WBC [facility] Platelet mean volume (Bld) [Entitic vol] 10.1 fL 9.0 - 12.7 fL [facility] Platelets (Bld) [#/Vol] 280 10*3/uL 150 - 400 k/uL [facility] RBC (Bld) [#/Vol] 4.42 10*6/uL 4.20 - 6.0 0 m/uL [facility] WBC (Bld) [#/Vol] 7.88 10*3/uL 3.70 - 11. 00 k/uL [facility] XR FOOT GENERAL 3V AP/LAT/OB L RIGHTon 11-24-2021 [facility] XR Shoulder - left 3 Viewson 07-29-2020 IMPRESSION: Mild AC joint degenerative change. Feather Drying Machine Operator: SIA Transcribe Date/Time: Jul 29 2020 4:02P Dictated by : REYNOLD OROZCO MD This examination was interpreted and the report reviewed and electronically signed by: REYNOLD OROZCO MD on Jul 29 2020 4:34PM [facility] DIVISION OF RADIOLOGY * * *Final Report* * * DATE OF EXAM: Jul 29 2020 2:51PM WOX 5252 - XR SHLDR >/=3V AP/SUREKHA AP/OTHR LT / PROCEDURE REASON: Acute pain of left shoulder * * * * Physician Interpretation * * * * HISTORY: pt states pain for couple of months anterior left shoulder no inj. Acute pain of left shoulder . TECHNIQUE: XR SHLDR >/=3V AP/SUREKHA AP/OTHR LT Laterality: LEFT Number of different views (projections): 3 COMPARISON: None RESULT: There is no evidence of fracture or dislocation. The subacromial space is preserved. The glenohumeral joint space is maintained. 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 - DIVISION OF RADIOLOGY Provider, Tiara Boudreaux [facility] - 07/29/2020 * * *Final Report* * * DATE OF EXAM: Jul 29 2020 2:51PM WOX 5252 - XR SHLDR >/=3V AP/SUREKHA AP/OTHR LT / PROCEDURE REASON: Acute pain of left shoulder * * * * Physician Interpretation * * * * HISTORY: pt states pain for couple of months anterior left shoulder no inj. Acute pain of left shoulder . TECHNIQUE: XR SHLDR >/=3V AP/SUREKHA AP/OTHR LT Laterality: LEFT Number of different views (projections): 3 COMPARISON: None RESULT: There is no evidence of fracture or dislocation. The subacromial space is preserved. The glenohumeral joint space is maintained. 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 - IMPRESSION IMPRESSION: Mild AC joint degenerative change. Feather Drying Machine Operator: SIA Transcribe Date/Time: Jul 29 2020 4:02P Dictated by : REYNOLD OROZCO MD This examination was interpreted and the report reviewed and electronically signed by: REYNOLD OROZCO MD on Jul 29 2020 4:34PM EST [facility] Radiology Study observation (narrative) [facility] XR Shoulder - left 3 ViewsOr dered By: [facility] Provider on 07-29-2020 [facility] Clinical Lists Update: Prelo ad Extendedon 08-08-2018 Tobacco smoking status NHIS Tobacco smoking status NHIS [facility] Work Phone: Clinical Summary: Data Submi tted by Patient in [place] 08-04-2018 #DEP CHLDRN Yes [facility] Work Phone: 3+ETOHDAILY 2 drinks per day [facility] Work Phone: ASTHEHSZHOUS 2 floors [facility] Work Phone: BROTHERS A/D My brother(s)' healt h history is unknown [facility] Work Phone: DEATHCAU DAD Cancer [facility] Work Phone: DEATHCAU MOM Heart failure [facility] Work Phone: DEP ALG LIST I don't have any jayce g allergies.,I don't have any food allergies.,I don't have any environmental allergies. 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 [facility] Work Phone: DEP ETOH USE Yes [facility] Work Phone: DEP MED LIST Lisinopril 20 mg Tab , 1 times per day,Aspirin 81 mg Tab, 1 times per day,Simvastatin 20 mg Tab, 1 times per day [facility] Work Phone: DEP MOM PMH Arthritis, Cancer, H eart disease [facility] Work Phone: DEP PMH Arterial sclerosis, GERD, Gout, High blood pressure, Peripheral vascular disease [facility] Work Phone: DEP SH CSMO former smoker [facility] Work Phone: DEP SH FSMO 1980 [facility] Work Phone: DEP SH MAST [facility] Work Phone: DEP SURGERY Hip replacement - to day, Knee replacement - total, Shoulder replacement - total [facility] Work Phone: DEPEXER FREQ 5 days per week [facility] Work Phone: ETOHPERFRM beer [facility] Work Phone: FATHER A/D [facility] Work Phone: HCG.beta subunit ( test) Ql (U) 1 time per year [facility] Work Phone: MOTHER A/D [facility] Work Phone: RLATNSHPINFR Self [facility] Work Phone: SISTER A/D My sister(s)' health history is unknown [facility] Work Phone: SWHOUTYPE house [facility] Work Phone: DEP EXERCISE Yes [facility] Work Phone: DEP EXERTYP walking, strength training, aerobics [facility] Work Phone: DEP MED LIST Lisinopril 20 mg Tab , 1 times per day,Simvastatin 20 mg Tab, 1 times per day [facility] Work Phone: Clinical Summary: HMSPatient IDon 08-04-2018 OOP [facility] Work Phone: Office Visit: Follow-up by juve cabrales Rm: 3on 08-04-2018 NEGATED: Highlighted rowProtein mass conc Done [facility] Work Phone: ECG B/O W INTERP (MED OFFICE ) [facility] Vital Signs Date Time Vital Sign Value Performing Clinician Facility 12-11-2024 08:39-0400 Body mass index (BMI) [Ratio] 23.6 kg/m2 Dr. Federico Vigil MD Work Phone: [phone] [place] [address] 12-11-2024 08:39-0400 Body weight 74.[address] Federico Vigil MD Work Phone: [phone](104)[phone] [place] [address] 12-11-2024 08:39-0400 Diastolic blood pressure 74 mm[Hg] Dr. Federico Vigil MD Work Phone: [phone] [place] [address] 12-11-2024 08:39-0400 Heart rate 68 /min Dr. Federico Vigil MD Work Phone: [phone] [place] [address] 12-11-2024 08:39-0400 Respiratory rate 18 /min Dr. Federico Vigil MD Work Phone: 0([phone] [place] [address] 12-11-2024 08:39-0400 Systolic blood pressure 133 mm[Hg] Dr. Federico Vigil MD Work Phone: [phone] [place] [address] 11-14-2024 13:33-0400 Diastolic blood pressure 80 mm[Hg] Dr. Federico Vigil MD Work Phone: [phone])[phone] [place] [address] 11-14-2024 13:33-0400 Systolic blood pressure 150 mm[Hg] Dr. Federico Vigil MD Work Phone: 0([phone] [place] [address] 11-14-2024 13:01-0400 Body temperature 98 [degF] Dr. Federico Vigil MD Work Phone: [phone] [place] [address] 11-14-2024 13:01-0400 Body weight 79.[address] Federico Vigil MD Work Phone: [phone] [place] [address] 11-14-2024 13:01-0400 Heart rate 69 /min Dr. Federico Vigil MD Work Phone: [phone] [place] [address] 11-14-2024 13:01-0400 Respiratory rate 16 /min Dr. Federico Vigil MD Work Phone: [phone] [place] [address] 11-14-2024 13:01-0400 SaO2% (BldA) [Mass fraction] 97 % Dr. Federico Vigil MD Work Phone: [facility] 09-03-2024 09:46-0500 Body mass index (BMI) [Ratio] 24.36 kg/m2 Ruth Smithhopat CUSTOMER SALES CONSULTANT.GANG HEMSTITCHING MACHINE OPERATOR Work Phone: [facility] 09-03-2024 09:46-0500 Body temperature 98.2 [degF] Ruth Smithhof CUSTOMER SALES CONSULTANT.GANG HEMSTITCHING MACHINE OPERATOR Work Phone: [facility] 09-03-2024 09:46-0500 Body weight 77 kg Ruthchikis Smithhof CUSTOMER SALES CONSULTANT.GANG HEMSTITCHING MACHINE OPERATOR Work Phone: [facility] 09-03-2024 09:46-0500 Diastolic blood pressure 70 mm[Hg] Ruth Smithhof CUSTOMER SALES CONSULTANT.GANG HEMSTITCHING MACHINE OPERATOR Work Phone: [facility] 09-03-2024 09:46-0500 Heart rate 76 /min Ruth Smithhof CUSTOMER SALES CONSULTANT.GANG HEMSTITCHING MACHINE OPERATOR Work Phone: [facility] 09-03-2024 09:46-0500 Respiratory rate 16 /min Ruth Smithhof CUSTOMER SALES CONSULTANT.GANG HEMSTITCHING MACHINE OPERATOR Work Phone: [facility] 09-03-2024 09:46-0500 SaO2% (BldA) [Mass fraction] 97 % Ruth Smithhof CUSTOMER SALES CONSULTANT.GANG HEMSTITCHING MACHINE OPERATOR Work Phone: [facility] 09-03-2024 09:46-0500 Systolic blood pressure 106 mm[Hg] Ruth Smithhof CUSTOMER SALES CONSULTANT.GANG HEMSTITCHING MACHINE OPERATOR Work Phone: [facility] 08-29-2024 09:47-0500 Body mass index (BMI) [Ratio] 25.24 kg/m2 Ruth Smithhof CUSTOMER SALES CONSULTANT.GANG HEMSTITCHING MACHINE OPERATOR Work Phone: [facility] 08-29-2024 09:47-0500 Body temperature 97.11 [degF] Ruth Smithhof CUSTOMER SALES CONSULTANT.GANG HEMSTITCHING MACHINE OPERATOR Work Phone: [facility] 08-29-2024 09:47-0500 Body weight 79.8 kg Ruth Smithhof CUSTOMER SALES CONSULTANT.GANG HEMSTITCHING MACHINE OPERATOR Work Phone: [facility] 08-29-2024 09:47-0500 Diastolic blood pressure 90 mm[Hg] Ruth Smithhof CUSTOMER SALES CONSULTANT.GANG HEMSTITCHING MACHINE OPERATOR Work Phone: [facility] 08-29-2024 09:47-0500 Heart rate 62 /min [facility] CUSTOMER SALES CONSULTANT.GANG HEMSTITCHING MACHINE OPERATOR Work Phone: [facility] 08-29-2024 09:47-0500 Respiratory rate 16 /min [facility] CUSTOMER SALES CONSULTANT.GANG HEMSTITCHING MACHINE OPERATOR Work Phone: [facility] 08-29-2024 09:47-0500 SaO2% (BldA) [Mass fraction] 97 % [facility] CUSTOMER SALES CONSULTANT.GANG HEMSTITCHING MACHINE OPERATOR Work Phone: [facility] 08-29-2024 09:47-0500 Systolic blood pressure 140 mm[Hg] Ruth Smithf CUSTOMER SALES CONSULTANT.GANG HEMSTITCHING MACHINE OPERATOR Work Phone: [facility] 08-24-2024 16:27-0500 Diastolic blood pressure 80 mm[Hg] Sumaya Alcazar CUSTOMER SALES CONSULTANT.GANG HEMSTITCHING MACHINE OPERATOR Work Phone: [facility] 08-24-2024 16:27-0500 Systolic blood pressure 148 mm[Hg] Sumaya Alcazar CUSTOMER SALES CONSULTANT.GANG HEMSTITCHING MACHINE OPERATOR Work Phone: [facility] 08-24-2024 15:54-0500 Body mass index (BMI) [Ratio] 24.89 kg/m2 Sumaya Alcazar CUSTOMER SALES CONSULTANT.GANG HEMSTITCHING MACHINE OPERATOR Work Phone: [facility] 08-24-2024 15:54-0500 Body temperature 97 [degF] Sumaya Alcazar CUSTOMER SALES CONSULTANT.GANG HEMSTITCHING MACHINE OPERATOR Work Phone: [facility] 08-24-2024 15:54-0500 Body weight 78.7 kg Sumaya Alcazar CUSTOMER SALES CONSULTANT.GANG HEMSTITCHING MACHINE OPERATOR Work Phone: [facility] 08-24-2024 15:54-0500 Heart rate 84 /min Sumaya Alcazar CUSTOMER SALES CONSULTANT.GANG HEMSTITCHING MACHINE OPERATOR Work Phone: [facility] 08-24-2024 15:54-0500 Respiratory rate 18 /min Sumaya Alcazar CUSTOMER SALES CONSULTANT.GANG HEMSTITCHING MACHINE OPERATOR Work Phone: [facility] 08-24-2024 15:54-0500 SaO2% (BldA) [Mass fraction] 99 % Sumaya Alcazar APRN.CNP Work Phone: [facility] 08-20-2024 09:42-0500 Body height 177.[address] Federico Vigil MD Work Phone: [facility] 08-20-2024 09:42-0500 Body mass index (BMI) [Ratio] 25 kg/m2 Dr. Federico Vigil MD Work Phone: [facility] 08-20-2024 09:42-0500 Body weight 78.[address] Federico Vigil MD Work Phone: [facility] 08-20-2024 09:42-0500 Diastolic blood pressure 66 mm[Hg] Dr. Federico Vigil MD Work Phone: [facility] 08-20-2024 09:42-0500 Heart rate 75 /min Dr. Federico Vigil MD Work Phone: [facility] 08-20-2024 09:42-0500 Respiratory rate 18 /min Dr. Federico Vigil MD Work Phone: [facility] 08-20-2024 09:42-0500 SaO2% (BldA) [Mass fraction] 98 % Dr. Federico Vigil MD Work Phone: [facility] 08-20-2024 09:42-0500 Systolic blood pressure 117 mm[Hg] Dr. Federico Vigil MD Work Phone: [facility] 07-24-2024 10:31-0500 Body mass index (BMI) [Ratio] 24.58 kg/m2 Federico Vigil MD Work Phone: [facility] 07-24-2024 10:31-0500 Body weight 77.7 kg Federico Vigil MD Work Phone: [facility] 07-24-2024 10:31-0500 Diastolic blood pressure 68 mm[Hg] Federico Vigil MD Work Phone: [facility] 07-24-2024 10:31-0500 Heart rate 74 /min Federico Vigil MD Work Phone: [facility] 07-24-2024 10:31-0500 Respiratory rate 18 /min Federico Vigil MD Work Phone: [facility] 07-24-2024 10:31-0500 Systolic blood pressure 110 mm[Hg] Federico Vigil MD Work Phone: [facility] 06-12-2024 10:21-0500 Diastolic blood pressure 60 mm[Hg] Ruth Tannhof CUSTOMER SALES CONSULTANT.GANG HEMSTITCHING MACHINE OPERATOR Work Phone: [facility] 06-12-2024 10:21-0500 Heart rate 72 /min Ruth Tannhof CUSTOMER SALES CONSULTANT.GANG HEMSTITCHING MACHINE OPERATOR Work Phone: [facility] 06-12-2024 10:21-0500 Respiratory rate 20 /min Ruth Tannhof CUSTOMER SALES CONSULTANT.GANG HEMSTITCHING MACHINE OPERATOR Work Phone: [facility] 06-12-2024 10:21-0500 SaO2% (BldA) [Mass fraction] 98 % Ruth Tannhof CUSTOMER SALES CONSULTANT.GANG HEMSTITCHING MACHINE OPERATOR Work Phone: [facility] 06-12-2024 10:21-0500 Systolic blood pressure 120 mm[Hg] Ruth Tannhof CUSTOMER SALES CONSULTANT.GANG HEMSTITCHING MACHINE OPERATOR Work Phone: [facility] 05-30-2024 14:32-0500 Body mass index (BMI) [Ratio] 25.53 kg/m2 Ruth Tannhof CUSTOMER SALES CONSULTANT.GANG HEMSTITCHING MACHINE OPERATOR Work Phone: [facility] 05-30-2024 14:32-0500 Body weight 80.7 kg Ruth Tannhof CUSTOMER SALES CONSULTANT.GANG HEMSTITCHING MACHINE OPERATOR Work Phone: [facility] 05-30-2024 14:32-0500 Diastolic blood pressure 68 mm[Hg] Ruth Tannhof CUSTOMER SALES CONSULTANT.GANG HEMSTITCHING MACHINE OPERATOR Work Phone: [facility] 05-30-2024 14:32-0500 Heart rate 75 /min Ruth Tannhof CUSTOMER SALES CONSULTANT.GANG HEMSTITCHING MACHINE OPERATOR Work Phone: [facility] 05-30-2024 14:32-0500 Respiratory rate 16 /min Ruth Tannhof CUSTOMER SALES CONSULTANT.GANG HEMSTITCHING MACHINE OPERATOR Work Phone: [facility] 05-30-2024 14:32-0500 SaO2% (BldA) [Mass fraction] 98 % Ruth Tannhof CUSTOMER SALES CONSULTANT.GANG HEMSTITCHING MACHINE OPERATOR Work Phone: [facility] 05-30-2024 14:32-0500 Systolic blood pressure 102 mm[Hg] Ruth Tannhof CUSTOMER SALES CONSULTANT.GANG HEMSTITCHING MACHINE OPERATOR Work Phone: [facility] 05-24-2024 09:00-0500 Body mass index (BMI) [Ratio] 25.18 kg/m2 Ruth Tannhof CUSTOMER SALES CONSULTANT.GANG HEMSTITCHING MACHINE OPERATOR Work Phone: [facility] 05-24-2024 09:00-0500 Body temperature 97.59 [degF] Ruth Tannhof CUSTOMER SALES CONSULTANT.GANG HEMSTITCHING MACHINE OPERATOR Work Phone: [facility] 05-24-2024 09:00-0500 Body weight 79.6 kg Ruth Tannhof CUSTOMER SALES CONSULTANT.GANG HEMSTITCHING MACHINE OPERATOR Work Phone: [facility] 05-24-2024 09:00-0500 Diastolic blood pressure 72 mm[Hg] Ruth Tannhof CUSTOMER SALES CONSULTANT.GANG HEMSTITCHING MACHINE OPERATOR Work Phone: [facility] 05-24-2024 09:00-0500 Heart rate 76 /min Ruth Tannhof CUSTOMER SALES CONSULTANT.GANG HEMSTITCHING MACHINE OPERATOR Work Phone: [facility] 05-24-2024 09:00-0500 Respiratory rate 16 /min Ruth Tannhof CUSTOMER SALES CONSULTANT.GANG HEMSTITCHING MACHINE OPERATOR Work Phone: [facility] 05-24-2024 09:00-0500 SaO2% (BldA) [Mass fraction] 98 % Ruth Tannhof CUSTOMER SALES CONSULTANT.GANG HEMSTITCHING MACHINE OPERATOR Work Phone: [facility] 05-24-2024 09:00-0500 Systolic blood pressure 128 mm[Hg] Ruth Tannhof CUSTOMER SALES CONSULTANT.GANG HEMSTITCHING MACHINE OPERATOR Work Phone: [facility] 04-23-2024 08:20-0400 Body mass index (BMI) [Ratio] 25.33 kg/m2 David Lundberg Work Phone: [facility] 04-23-2024 08:20-0400 Body temperature 97.5 [degF] David Lundberg Work Phone: [facility] 04-23-2024 08:20-0400 Body weight 80.06 kg David Lundberg Work Phone: [facility] 04-23-2024 08:20-0400 Diastolic blood pressure 70 mm[Hg] David Lundberg Work Phone: [facility] 04-23-2024 08:20-0400 Heart rate 68 /min David Lundberg Work Phone: [facility] 04-23-2024 08:20-0400 SaO2% (BldA) [Mass fraction] 99 % David Lundberg Work Phone: [facility] 04-23-2024 08:20-0400 Systolic blood pressure 159 mm[Hg] David Lundberg Work Phone: [facility] 03-29-2024 07:36-0400 Body mass index (BMI) [Ratio] 25.08 kg/m2 Ruth Smithhof CUSTOMER SALES CONSULTANT.GANG HEMSTITCHING MACHINE OPERATOR Work Phone: [facility] 03-29-2024 07:36-0400 Body weight 79.3 kg Ruth Smithhof CUSTOMER SALES CONSULTANT.GANG HEMSTITCHING MACHINE OPERATOR Work Phone: [facility] 03-29-2024 07:36-0400 Diastolic blood pressure 68 mm[Hg] Ruth Smithhof CUSTOMER SALES CONSULTANT.GANG HEMSTITCHING MACHINE OPERATOR Work Phone: [facility] 03-29-2024 07:36-0400 Heart rate 85 /min Ruth Smithhof CUSTOMER SALES CONSULTANT.GANG HEMSTITCHING MACHINE OPERATOR Work Phone: [facility] 03-29-2024 07:36-0400 Respiratory rate 16 /min Ruthchikis Smithhof CUSTOMER SALES CONSULTANT.GANG HEMSTITCHING MACHINE OPERATOR Work Phone: [facility] 03-29-2024 07:36-0400 SaO2% (BldA) [Mass fraction] 97 % Ruth Perez CUSTOMER SALES CONSULTANT.GANG HEMSTITCHING MACHINE OPERATOR Work Phone: [facility] 03-29-2024 07:36-0400 Systolic blood pressure 142 mm[Hg] Ruth Perez APRN.GANG HEMSTITCHING MACHINE OPERATOR Work Phone: [facility] 02-27-2024 18:40-0400 Body mass index (BMI) [Ratio] 25.08 kg/m2 Federico Vigil MD Work Phone: [facility] 02-27-2024 18:40-0400 Body weight 79.3 kg Federico Vigil MD Work Phone: [facility] 02-27-2024 18:40-0400 Diastolic blood pressure 76 mm[Hg] Federico Vigil MD Work Phone: [facility] 02-27-2024 18:40-0400 Heart rate 78 /min Federico Vigil MD Work Phone: [facility] 02-27-2024 18:40-0400 Respiratory rate 18 /min Federico Vigil MD Work Phone: [facility] 02-27-2024 18:40-0400 Systolic blood pressure 128 mm[Hg] Federico Vigil MD Work Phone: [facility] 01-26-2024 08:52-0400 Body height 177.8 cm Phi Caba MD Work Phone: [facility] 01-26-2024 08:52-0400 Body mass index (BMI) [Ratio] 24.39 kg/m2 Phi Caba MD Work Phone: [facility] 01-26-2024 08:52-0400 Body weight 77.11 kg Phi Caba MD Work Phone: [facility] 01-26-2024 08:52-0400 Diastolic blood pressure 70 mm[Hg] Phi Caba MD Work Phone: [facility] 01-26-2024 08:52-0400 Heart rate 64 /min Phi Caba MD Work Phone: [facility] 01-26-2024 08:52-0400 Respiratory rate 16 /min Phi Caba MD Work Phone: [facility] 01-26-2024 08:52-0400 Systolic blood pressure 130 mm[Hg] Phi Caba MD Work Phone: [facility] 01-20-2024 08:51-0400 Body mass index (BMI) [Ratio] 25.05 kg/m2 Federico Vigil MD Work Phone: [facility] 01-20-2024 08:51-0400 Body weight 79.2 kg Federico Vigil MD Work Phone: [facility] 01-20-2024 08:51-0400 Diastolic blood pressure 64 mm[Hg] Federico Vigil MD Work Phone: [facility] 01-20-2024 08:51-0400 Heart rate 60 /min Federico Vigil MD Work Phone: [facility] 01-20-2024 08:51-0400 Respiratory rate 18 /min Federico Vigil MD Work Phone: [facility] 01-20-2024 08:51-0400 Systolic blood pressure 138 mm[Hg] Federico Vigil MD Work Phone: [facility] 01-04-2024 14:55-0400 Body height 177.8 cm Timothy Walker MD Work Phone: [facility] 01-04-2024 14:55-0400 Body mass index (BMI) [Ratio] 24.68 kg/m2 Timothy Walker MD Work Phone: [facility] 01-04-2024 14:55-0400 Body weight 78.02 kg Timothy Walker MD Work Phone: [facility] 01-04-2024 14:55-0400 Diastolic blood pressure 59 mm[Hg] Timothy Walker MD Work Phone: [facility] 01-04-2024 14:55-0400 Heart rate 68 /min Timothy Walker MD Work Phone: [facility] 01-04-2024 14:55-0400 SaO2% (BldA) [Mass fraction] 98 % Timothy Walker MD Work Phone: [facility] 01-04-2024 14:55-0400 Systolic blood pressure 132 mm[Hg] Timothy Walker MD Work Phone: [facility] 12-20-2023 10:45-0400 Body height 177.8 cm Pst 1 [facility] 12-20-2023 10:45-0400 Body mass index (BMI) [Ratio] 24.39 kg/m2 Pst 1 [facility] 12-20-2023 10:45-0400 Body temperature 97.9 [degF] Pst 1 [facility] 12-20-2023 10:45-0400 Body weight 77.11 kg Pst 1 [facility] 12-20-2023 10:45-0400 Diastolic blood pressure 56 mm[Hg] Pst 1 [facility] 12-20-2023 10:45-0400 Heart rate 61 /min Pst 1 [facility] 12-20-2023 10:45-0400 Respiratory rate 16 /min Pst 1 [facility] 12-20-2023 10:45-0400 SaO2% (BldA) [Mass fraction] 99 % Pst 1 [facility] 12-20-2023 10:45-0400 Systolic blood pressure 127 mm[Hg] Pst 1 [facility] 12-08-2023 15:27-0400 Body height 177.8 cm Phi Caba MD Work Phone: [facility] 12-08-2023 15:27-0400 Body mass index (BMI) [Ratio] 23.96 kg/m2 Phi Caba MD Work Phone: [facility] 12-08-2023 15:27-0400 Body weight 75.75 kg Phi Caba MD Work Phone: [facility] 12-08-2023 15:27-0400 Diastolic blood pressure 70 mm[Hg] Phi Caba MD Work Phone: [facility] 12-08-2023 15:27-0400 Heart rate 68 /min Phi Caba MD Work Phone: 4(306)076-418715 [place] [address] 12-08-2023 15:27-0400 Respiratory rate 16 /min Phi Caba MD Work Phone: 4(745)[phone] [address] 12-08-2023 15:27-0400 SaO2% (BldA) [Mass fraction] 98 % Phi Caba MD Work Phone: 7(246)[phone] [address] 12-08-2023 15:27-0400 Systolic blood pressure 120 mm[Hg] Phi Caba MD Work Phone: 0(762)[phone] [place] [address] 11-17-2023 16:10-0400 Body height 176.5 cm Phi Caba MD Work Phone: 2(030)[phone] [address] Comment on above: Patient reports. 11-17-2023 16:10-0400 Body mass index (BMI) [Ratio] 24.16 kg/m2 Phi Caba MD Work Phone: 7(408)568-922027 [place] [address] 11-17-2023 16:10-0400 Body weight 75.3 kg Phi Caba MD Work Phone: 5(984)301-331035 [address] 11-17-2023 16:10-0400 Diastolic blood pressure 70 mm[Hg] Phi Caba MD Work Phone: 3(150)869-973935 [address] 11-17-2023 16:10-0400 Heart rate 68 /min Phi Caba MD Work Phone: 3(810)[phone] [address] 11-17-2023 16:10-0400 SaO2% (BldA) [Mass fraction] 98 % Phi Cbaa MD Work Phone: 4(046)[phone] [address] 11-17-2023 16:10-0400 Systolic blood pressure 130 mm[Hg] Phi Caba MD Work Phone: 3(577)939-720435 [address] 10-27-2023 08:16-0400 Body temperature 98.6 [degF] David Lundberg Work Phone: [facility] 10-27-2023 08:16-0400 Body weight 76.66 kg David Lundberg Work Phone: [facility] 10-27-2023 08:16-0400 Diastolic blood pressure 71 mm[Hg] David Lundberg Work Phone: [facility] 10-27-2023 08:16-0400 Heart rate 77 /min David Lundberg Work Phone: [facility] 10-27-2023 08:16-0400 SaO2% (BldA) [Mass fraction] 98 % David Lundberg Work Phone: [facility] 10-27-2023 08:16-0400 Systolic blood pressure 136 mm[Hg] David Lundberg Work Phone: [facility] 09-19-2023 08:55-0500 Diastolic blood pressure 72 mm[Hg] Treatment Wstr Work Phone: [facility] 09-19-2023 08:55-0500 Systolic blood pressure 148 mm[Hg] Treatment Wstr Work Phone: [facility] 09-19-2023 08:18-0500 Body temperature 97.81 [degF] Treatment Wstr Work Phone: [facility] 09-19-2023 08:18-0500 Heart rate 77 /min Treatment Wstr Work Phone: [facility] 09-19-2023 08:18-0500 Respiratory rate 16 /min Treatment Wstr Work Phone: [facility] 09-19-2023 08:18-0500 SaO2% (BldA) [Mass fraction] 97 % Treatment Wstr Work Phone: [facility] 09-16-2023 11:10-0500 Body temperature 97.81 [degF] Treatment Wstr Work Phone: [facility] 09-16-2023 11:10-0500 Diastolic blood pressure 66 mm[Hg] Treatment Wstr Work Phone: [facility] 09-16-2023 11:10-0500 Heart rate 72 /min Treatment Wstr Work Phone: [facility] 09-16-2023 11:10-0500 Respiratory rate 16 /min Treatment Wstr Work Phone: [facility] 09-16-2023 11:10-0500 SaO2% (BldA) [Mass fraction] 99 % Treatment Wstr Work Phone: [facility] 09-16-2023 11:10-0500 Systolic blood pressure 128 mm[Hg] Treatment Wstr Work Phone: [facility] 09-14-2023 10:09-0500 Diastolic blood pressure 74 mm[Hg] Treatment Wstr Work Phone: [facility] 09-14-2023 10:09-0500 Heart rate 70 /min Treatment Wstr Work Phone: [facility] 09-14-2023 10:09-0500 Respiratory rate 16 /min Treatment Wstr Work Phone: [facility] 09-14-2023 10:09-0500 Systolic blood pressure 137 mm[Hg] Treatment Wstr Work Phone: [facility] 09-14-2023 09:30-0500 Body temperature 97.81 [degF] Treatment Wstr Work Phone: [facility] 09-14-2023 09:30-0500 SaO2% (BldA) [Mass fraction] 99 % Treatment Wstr Work Phone: [facility] 09-13-2023 12:59-0500 Body height 177.[address] Federico Viigl Work Phone: [facility] 09-13-2023 12:59-0500 Body mass index (BMI) [Ratio] 23.9 kg/m2 Dr. Federico Vigil Work Phone: [facility] 09-13-2023 12:59-0500 Body weight 75.[address] Federico Vigil Work Phone: [facility] 09-13-2023 12:59-0500 Diastolic blood pressure 68 mm[Hg] Dr. Federico Vigil Work Phone: [facility] 09-13-2023 12:59-0500 Heart rate 68 /min Dr. Federico Vigil Work Phone: [facility] 09-13-2023 12:59-0500 Respiratory rate 16 /min Dr. Federico Vigil Work Phone: [facility] 09-13-2023 12:59-0500 Systolic blood pressure 136 mm[Hg] Dr. Federico Vigil Work Phone: [facility] 09-08-2023 10:48-0500 Body temperature 97.3 [degF] Treatment Wstr Work Phone: [facility] 09-08-2023 10:48-0500 Diastolic blood pressure 64 mm[Hg] Treatment Wstr Work Phone: [facility] 09-08-2023 10:48-0500 Heart rate 67 /min Treatment Wstr Work Phone: [facility] 09-08-2023 10:48-0500 Respiratory rate 18 /min Treatment Wstr Work Phone: [facility] 09-08-2023 10:48-0500 SaO2% (BldA) [Mass fraction] 100 % Treatment Wstr Work Phone: [facility] 09-08-2023 10:48-0500 Systolic blood pressure 119 mm[Hg] Treatment Wstr Work Phone: [facility] 09-02-2023 08:32-0500 Body temperature 96.8 [degF] Sumaya Alcazar APRN.GANG HEMSTITCHING MACHINE OPERATOR Work Phone: [facility] 09-02-2023 08:32-0500 Body weight 79.56 kg Sumaya Alcazar APRN.GANG HEMSTITCHING MACHINE OPERATOR Work Phone: [facility] 09-02-2023 08:32-0500 Diastolic blood pressure 68 mm[Hg] Sumaya Alcazar APRN.GANG HEMSTITCHING MACHINE OPERATOR Work Phone: [facility] 09-02-2023 08:32-0500 Heart rate 72 /min Sumaya Alcazar APRN.GANG HEMSTITCHING MACHINE OPERATOR Work Phone: [facility] 09-02-2023 08:32-0500 Respiratory rate 21 /min Sumaya Alcazar APRN.GANG HEMSTITCHING MACHINE OPERATOR Work Phone: [facility] 09-02-2023 08:32-0500 SaO2% (BldA) [Mass fraction] 99 % Sumaya Ottoniel CUSTOMER SALES CONSULTANT.GANG HEMSTITCHING MACHINE OPERATOR Work Phone: [facility] 09-02-2023 08:32-0500 Systolic blood pressure 100 mm[Hg] Sumaya Alcazar APRN.GANG HEMSTITCHING MACHINE OPERATOR Work Phone: [facility] 09-01-2023 09:22-0500 Body temperature 97.9 [degF] David Lundberg Work Phone: [facility] 09-01-2023 09:22-0500 Body weight 78.7 kg David Lundberg Work Phone: [facility] 09-01-2023 09:22-0500 Diastolic blood pressure 69 mm[Hg] David Lundberg Work Phone: [facility] 09-01-2023 09:22-0500 Heart rate 61 /min David Lundberg Work Phone: [facility] 09-01-2023 09:22-0500 SaO2% (BldA) [Mass fraction] 99 % David Lundberg Work Phone: [facility] 09-01-2023 09:22-0500 Systolic blood pressure 118 mm[Hg] David Lundberg Work Phone: [facility] 08-22-2023 10:34-0500 Body height 177.2 cm David Lundberg Work Phone: [facility] 08-22-2023 10:34-0500 Body temperature 97.11 [degF] David Lundberg Work Phone: [facility] 08-22-2023 10:34-0500 Body weight 77.56 kg David Lundberg Work Phone: [facility] 08-22-2023 10:34-0500 Diastolic blood pressure 62 mm[Hg] David Lundberg Work Phone: [facility] 08-22-2023 10:34-0500 Heart rate 62 /min David Lundberg Work Phone: [facility] 08-22-2023 10:34-0500 SaO2% (BldA) [Mass fraction] 99 % David Lundberg Work Phone: [facility] 08-22-2023 10:34-0500 Systolic blood pressure 111 mm[Hg] Davidevelyn Lundberg Work Phone: [facility] 07-31-2023 15:38-0500 Body height 177.[address] Federico Vigil Work Phone: [facility] 07-31-2023 15:38-0500 Body mass index (BMI) [Ratio] 24.3 kg/m2 Dr. Federico Vigil Work Phone: [facility] 07-31-2023 15:38-0500 Body temperature 97.2 [degF] Dr. Federico Vigil Work Phone: [facility] 07-31-2023 15:38-0500 Body weight 77.[address] Federico Vigil Work Phone: [facility] 07-31-2023 15:38-0500 Diastolic blood pressure 78 mm[Hg] Dr. Federico Vigil Work Phone: [facility] 07-31-2023 15:38-0500 Heart rate 76 /min Dr. Federico Vigil Work Phone: [facility] 07-31-2023 15:38-0500 Respiratory rate 15 /min Dr. Federico Vigil Work Phone: [facility] 07-31-2023 15:38-0500 SaO2% (BldA) [Mass fraction] 100 % Dr. Federico Vigil Work Phone: [facility] 07-31-2023 15:38-0500 Systolic blood pressure 150 mm[Hg] Dr. Federico Vigil Work Phone: [facility] 07-15-2023 10:54-0500 Body mass index (BMI) [Ratio] 24.4 kg/m2 Dr. Federico Vigil Work Phone: [facility] 07-15-2023 10:54-0500 Body weight 77.[address] Federico Vigil Work Phone: [facility] 06-22-2023 14:48-0500 Body height 179.1 cm Timothy Walker MD Work Phone: [facility] 06-22-2023 14:48-0500 Body weight 75.75 kg Timothy Walker MD Work Phone: [facility] 06-22-2023 14:48-0500 Diastolic blood pressure 66 mm[Hg] Timothy Walker MD Work Phone: [facility] 06-22-2023 14:48-0500 Heart rate 72 /min Timothy Walker MD Work Phone: [facility] 06-22-2023 14:48-0500 SaO2% (BldA) [Mass fraction] 98 % Timothy Walker MD Work Phone: [facility] 06-22-2023 14:48-0500 Systolic blood pressure 108 mm[Hg] Timothy Walker MD Work Phone: [facility] 06-06-2023 14:52-0500 Body height 179.1 cm Cabrera Mejia MD Work Phone: [facility] 06-06-2023 14:52-0500 Body temperature 96.49 [degF] Cabrera Mejia MD Work Phone: [facility] 06-06-2023 14:52-0500 Body weight 78.47 kg Cabrera Mejia MD Work Phone: [facility] 06-06-2023 14:52-0500 Diastolic blood pressure 58 mm[Hg] Cabrera Mejia MD Work Phone: [facility] 06-06-2023 14:52-0500 Heart rate 68 /min Cabrera Mejia MD Work Phone: [facility] 06-06-2023 14:52-0500 SaO2% (BldA) [Mass fraction] 100 % Cabrera Mejia MD Work Phone: [facility] 06-06-2023 14:52-0500 Systolic blood pressure 112 mm[Hg] Cabrera Mejia MD Work Phone: [facility] 05-19-2023 13:19-0400 Body mass index (BMI) [Ratio] 24.3 kg/m2 Dr. Federico Vigil Work Phone: [facility] 05-19-2023 13:19-0400 Body weight 77.[address] Federico Vigil Work Phone: [facility] 05-19-2023 13:19-0400 Diastolic blood pressure 66 mm[Hg] Dr. Federico Vigil Work Phone: [facility] 05-19-2023 13:19-0400 Heart rate 65 /min Dr. Federico Vigil Work Phone: [facility] 05-19-2023 13:19-0400 Respiratory rate 16 /min Dr. Federico Vigil Work Phone: [facility] 05-19-2023 13:19-0400 Systolic blood pressure 137 mm[Hg] Dr. Federico Vigil Work Phone: [facility] 05-11-2023 01:00-0400 Diastolic blood pressure 73 mm[Hg] [facility] 05-11-2023 01:00-0400 Heart rate 72 /min [facility] 05-11-2023 01:00-0400 Respiratory rate 18 /min [facility] 05-11-2023 01:00-0400 SaO2% (BldA) [Mass fraction] 99 % [facility] 05-11-2023 01:00-0400 Systolic blood pressure 123 mm[Hg] [facility] 05-10-2023 21:46-0400 Body height 177.8 cm [facility] 05-10-2023 21:46-0400 Body mass index (BMI) [Ratio] 25.2 kg/m2 [facility] 05-10-2023 21:46-0400 Body temperature 97.9 [degF] [facility] 05-10-2023 21:46-0400 Body weight 79.6 kg [facility] 05-09-2023 12:47-0400 Body weight 78.47 kg Ruth Tannhof CUSTOMER SALES CONSULTANT.GANG HEMSTITCHING MACHINE OPERATOR Work Phone: [facility] 05-09-2023 12:47-0400 Diastolic blood pressure 50 mm[Hg] Ruth Tannhof CUSTOMER SALES CONSULTANT.GANG HEMSTITCHING MACHINE OPERATOR Work Phone: [facility] 05-09-2023 12:47-0400 Heart rate 66 /min Ruth Tannhof CUSTOMER SALES CONSULTANT.GANG HEMSTITCHING MACHINE OPERATOR [facility] Phone[facility] System 05-09-2023 12:47-0400 Respiratory rate 16 /min Ruth Tannhof CUSTOMER SALES CONSULTANT.GANG HEMSTITCHING MACHINE OPERATOR Work Phone: [facility] 05-09-2023 12:47-0400 SaO2% (BldA) [Mass fraction] 97 % Ruth Tannhof CUSTOMER SALES CONSULTANT.GANG HEMSTITCHING MACHINE OPERATOR Work Phone: [facility] 05-09-2023 12:47-0400 Systolic blood pressure 100 mm[Hg] Ruth Tannhof CUSTOMER SALES CONSULTANT.GANG HEMSTITCHING MACHINE OPERATOR Work Phone: [facility] 04-26-2023 12:56-0400 Body height 177.8 cm Gretel [place] PA-C Work Phone: [facility] 04-26-2023 12:56-0400 Body temperature 97.2 [degF] Gretel [place] PA-C Work Phone: [facility] 04-26-2023 12:56-0400 Body weight 78.47 kg Gretel Cathy PA-C Work Phone: [facility] 04-26-2023 12:56-0400 Diastolic blood pressure 64 mm[Hg] Gretel [place] PA-C Work Phone: [facility] 04-26-2023 12:56-0400 Heart rate 61 /min Gretel Cathy PA-C Work Phone: [facility] 04-26-2023 12:56-0400 SaO2% (BldA) [Mass fraction] 97 % Gretel Melaraf PA-C Work Phone: [facility] 04-26-2023 12:56-0400 Systolic blood pressure 132 mm[Hg] Gretel Melaraf PA-C Work Phone: [facility] 04-17-2023 12:14-0400 Body temperature 97.59 [degF] Ita Villanueva APRN.GANG HEMSTITCHING MACHINE OPERATOR Work Phone: [facility] 04-17-2023 12:14-0400 Body weight 80.56 kg Ita Villanueva APRN.GANG HEMSTITCHING MACHINE OPERATOR Work Phone: [facility] 04-17-2023 12:14-0400 Diastolic blood pressure 62 mm[Hg] Ita Villanueva APRN.GANG HEMSTITCHING MACHINE OPERATOR Work Phone: [facility] 04-17-2023 12:14-0400 Heart rate 60 /min Ita Villanueva APRN.GANG HEMSTITCHING MACHINE OPERATOR Work Phone: [facility] 04-17-2023 12:14-0400 Respiratory rate 16 /min Ita Villanueva APRN.GANG HEMSTITCHING MACHINE OPERATOR Work Phone: [facility] 04-17-2023 12:14-0400 SaO2% (BldA) [Mass fraction] 99 % Ita Villanueva APRN.GANG HEMSTITCHING MACHINE OPERATOR Work Phone: [facility] 04-17-2023 12:14-0400 Systolic blood pressure 152 mm[Hg] Ita Villanueva APRN.GANG HEMSTITCHING MACHINE OPERATOR Work Phone: [facility] 03-29-2023 14:54-0400 Body height 177.8 cm Malathi Sam APRN.GANG HEMSTITCHING MACHINE OPERATOR Work Phone: [facility] 03-29-2023 14:54-0400 Body weight 78.83 kg Malathi Sam APRN.GANG HEMSTITCHING MACHINE OPERATOR Work Phone: [facility] 03-29-2023 14:54-0400 Diastolic blood pressure 49 mm[Hg] Malathi Sam CUSTOMER SALES CONSULTANT.GANG HEMSTITCHING MACHINE OPERATOR Work Phone: [facility] 03-29-2023 14:54-0400 Heart rate 66 /min Malathi Sam CUSTOMER SALES CONSULTANT.GANG HEMSTITCHING MACHINE OPERATOR Work Phone: [facility] 03-29-2023 14:54-0400 SaO2% (BldA) [Mass fraction] 96 % Malathi Sam CUSTOMER SALES CONSULTANT.GANG HEMSTITCHING MACHINE OPERATOR Work Phone: [facility] 03-29-2023 14:54-0400 Systolic blood pressure 132 mm[Hg] Malathi Sam CUSTOMER SALES CONSULTANT.GANG HEMSTITCHING MACHINE OPERATOR Work Phone: [facility] 01-17-2023 15:03-0400 Body weight 76.66 kg Federico Vigil MD Work Phone: [facility] 01-17-2023 15:03-0400 Diastolic blood pressure 60 mm[Hg] Federico Vigil MD Work Phone: [facility] 01-17-2023 15:03-0400 Heart rate 80 /min Federico Vigil MD Work Phone: [facility] 01-17-2023 15:03-0400 Respiratory rate 16 /min Federico Vigil MD Work Phone: [facility] 01-17-2023 15:03-0400 Systolic blood pressure 122 mm[Hg] Federico Vigil MD Work Phone: [facility] 12-25-2022 10:23-0400 Body temperature 98.1 [degF] Dr. Federico Vigil Work Phone: [facility] 12-25-2022 10:23-0400 Diastolic blood pressure 65 mm[Hg] Dr. Federico Vigil Work Phone: [facility] 12-25-2022 10:23-0400 Heart rate 69 /min Dr. Federico Vigil Work Phone: [facility] 12-25-2022 10:23-0400 Respiratory rate 18 /min Dr. Federico Vigil Work Phone: [facility] 12-25-2022 10:23-0400 SaO2% (BldA) [Mass fraction] 99 % Dr. Federico Vigil Work Phone: [facility] 12-25-2022 10:23-0400 Systolic blood pressure 142 mm[Hg] Dr. Federico Vigil Work Phone: [facility] 12-25-2022 06:29-0400 Body height 177.[address] Federico Vigil Work Phone: [facility] 12-25-2022 06:29-0400 Body mass index (BMI) [Ratio] 25.7 kg/m2 Dr. Federico Vigil Work Phone: [facility] 12-25-2022 06:29-0400 Body weight 81.[address] Federico Vigil Work Phone: [facility] 11-29-2022 09:33-0400 Body height 177.8 cm Timothy Walker MD Work Phone: [facility] 11-29-2022 09:33-0400 Body weight 80.02 kg Timothy Walker MD Work Phone: [facility] 11-29-2022 09:33-0400 Diastolic blood pressure 69 mm[Hg] Timothy Walker MD Work Phone: [facility] 11-29-2022 09:33-0400 Heart rate 65 /min Timothy Walker MD Work Phone: [facility] 11-29-2022 09:33-0400 SaO2% (BldA) [Mass fraction] 99 % Timothy Walker MD Work Phone: [facility] 11-29-2022 09:33-0400 Systolic blood pressure 122 mm[Hg] Timothy Walker MD Work Phone: [facility] 11-04-2022 09:52-0400 Body height 177.[address] Federico Vigil Work Phone: [facility] 11-04-2022 09:52-0400 Body mass index (BMI) [Ratio] 25 kg/m2 Dr. Federico Vigil Work Phone: [facility] 11-04-2022 09:52-0400 Body weight 78.[address] Federico Vigil Work Phone: [facility] 11-04-2022 09:52-0400 Diastolic blood pressure 75 mm[Hg] Dr. Federico Vigil Work Phone: [facility] 11-04-2022 09:52-0400 Heart rate 95 /min Dr. Federico Vigil Work Phone: [facility] 11-04-2022 09:52-0400 Respiratory rate 16 /min Dr. Federico Vigil Work Phone: [facility] 11-04-2022 09:52-0400 Systolic blood pressure 155 mm[Hg] Dr. Federico Vigil Work Phone: [facility] 10-27-2022 10:50-0400 Body weight 81.65 kg Ruth Perez CUSTOMER SALES CONSULTANT.GANG HEMSTITCHING MACHINE OPERATOR Work Phone: [facility] 10-27-2022 10:50-0400 Diastolic blood pressure 88 mm[Hg] Ruth Perez CUSTOMER SALES CONSULTANT.GANG HEMSTITCHING MACHINE OPERATOR Work Phone: [facility] 10-27-2022 10:50-0400 Heart rate 83 /min Ruth Perez CUSTOMER SALES CONSULTANT.GANG HEMSTITCHING MACHINE OPERATOR Work Phone: [facility] 10-27-2022 10:50-0400 Respiratory rate 16 /min Ruth Perez CUSTOMER SALES CONSULTANT.GANG HEMSTITCHING MACHINE OPERATOR Work Phone: [facility] 10-27-2022 10:50-0400 SaO2% (BldA) [Mass fraction] 100 % Ruth Perez CUSTOMER SALES CONSULTANT.GANG HEMSTITCHING MACHINE OPERATOR Work Phone: [facility] 10-27-2022 10:50-0400 Systolic blood pressure 130 mm[Hg] Ruth Perez CUSTOMER SALES CONSULTANT.GANG HEMSTITCHING MACHINE OPERATOR Work Phone: [facility] 10-12-2022 09:01-0400 Body mass index (BMI) [Ratio] 25.5 kg/m2 Dr. Federico Vigil Work Phone: 1(870)610-713927 [place] [address] 10-12-2022 09:01-0400 Body weight 80.[address] Federico Vigil Work Phone: 9(619)961-599392 [place] [address] 10-12-2022 09:01-0400 Diastolic blood pressure 72 mm[Hg] Dr. Federico Vigil Work Phone: 5(170)290-829992 [place] [address] 10-12-2022 09:01-0400 Heart rate 86 /min Dr. Federico Vigil Work Phone: 1(340)254-892702 [address] 10-12-2022 09:01-0400 Respiratory rate 16 /min Dr. Federico Vigil Work Phone: 7(447)459-079292 [place] [address] 10-12-2022 09:01-0400 Systolic blood pressure 118 mm[Hg] Dr. Federico Vigil Work Phone: 9(893)613-275492 [place] [address] 10-07-2022 12:44-0400 Body temperature 98.3 [degF] Dr. Federico Vigil Work Phone: 7(643)670-881492 [place] [address] 10-07-2022 12:44-0400 Diastolic blood pressure 81 mm[Hg] Dr. Federico Vigil Work Phone: 2(488)759-646692 [place] [address] 10-07-2022 12:44-0400 Heart rate 92 /min Dr. Federico Vigil Work Phone: 8(618)852-063192 [place] [address] 10-07-2022 12:44-0400 Respiratory rate 16 /min Dr. Federico Vigil Work Phone: 4(713)385-905627 [place] [address] 10-07-2022 12:44-0400 SaO2% (BldA) [Mass fraction] 97 % Dr. Federico Vigil Work Phone: 4(167)945-203627 [place] [address] 10-07-2022 12:44-0400 Systolic blood pressure 119 mm[Hg] Dr. Federico Vigil Work Phone: 7(604)113-450392 [place] [address] 10-06-2022 08:30-0400 Body weight 79.[address] Federico Vigil Work Phone: 8(076)797-517892 [place] [address] 10-05-2022 06:58-0400 Body mass index (BMI) [Ratio] 25.2 kg/m2 Dr. Federico Vigil Work Phone: [facility] 09-27-2022 08:55-0400 Body temperature 98.49 [degF] Ita Villanueva APRN.GANG HEMSTITCHING MACHINE OPERATOR Work Phone: [facility] 09-27-2022 08:55-0400 Body weight 80.47 kg Ita Villanueva APRN.GANG HEMSTITCHING MACHINE OPERATOR Work Phone: [facility] 09-27-2022 08:55-0400 Diastolic blood pressure 62 mm[Hg] Ita Villanueva APRN.GANG HEMSTITCHING MACHINE OPERATOR Work Phone: [facility] 09-27-2022 08:55-0400 Heart rate 77 /min Ita Villanueva APRN.GANG HEMSTITCHING MACHINE OPERATOR Work Phone: [facility] 09-27-2022 08:55-0400 Respiratory rate 18 /min Ita Villanueva APRN.GANG HEMSTITCHING MACHINE OPERATOR Work Phone: [facility] 09-27-2022 08:55-0400 SaO2% (BldA) [Mass fraction] 98 % Ita Villanueva APRN.GANG HEMSTITCHING MACHINE OPERATOR Work Phone: [facility] 09-27-2022 08:55-0400 Systolic blood pressure 126 mm[Hg] Ita Villanueva APRN.GANG HEMSTITCHING MACHINE OPERATOR Work Phone: [facility] 09-13-2022 11:36-0500 Body height 177.[address] Federico Vigil Work Phone: [facility] 09-13-2022 11:28-0500 Body mass index (BMI) [Ratio] 25.2 kg/m2 Dr. Federico Vigil Work Phone: [facility] 09-13-2022 11:28-0500 Body weight 79.[address] Federico Vigil Work Phone: [facility] 09-13-2022 11:28-0500 Diastolic blood pressure 74 mm[Hg] Dr. Federico Vigil Work Phone: [facility] 09-13-2022 11:28-0500 Heart rate 90 /min Dr. Federico Vigil Work Phone: [facility] 09-13-2022 11:28-0500 Respiratory rate 18 /min Dr. Federico Vigil Work Phone: [facility] 09-13-2022 11:28-0500 SaO2% (BldA) [Mass fraction] 99 % Dr. Federico Vigil Work Phone: [facility] 09-13-2022 11:28-0500 Systolic blood pressure 175 mm[Hg] Dr. Federico Vigli Work Phone: [facility] 08-05-2022 10:51-0500 Body weight 81.19 kg Ruth Perez CUSTOMER SALES CONSULTANT.GANG HEMSTITCHING MACHINE OPERATOR Work Phone: [facility] 08-05-2022 10:51-0500 Diastolic blood pressure 70 mm[Hg] Ruth Perez CUSTOMER SALES CONSULTANT.GANG HEMSTITCHING MACHINE OPERATOR Work Phone: [facility] 08-05-2022 10:51-0500 Heart rate 69 /min Ruth Perez CUSTOMER SALES CONSULTANT.GANG HEMSTITCHING MACHINE OPERATOR Work Phone: [facility] 08-05-2022 10:51-0500 Respiratory rate 16 /min Ruth Perez CUSTOMER SALES CONSULTANT.GANG HEMSTITCHING MACHINE OPERATOR Work Phone: [facility] 08-05-2022 10:51-0500 SaO2% (BldA) [Mass fraction] 97 % Ruth Perez CUSTOMER SALES CONSULTANT.GANG HEMSTITCHING MACHINE OPERATOR Work Phone: [facility] 08-05-2022 10:51-0500 Systolic blood pressure 124 mm[Hg] Ruth Perez CUSTOMER SALES CONSULTANT.GANG HEMSTITCHING MACHINE OPERATOR Work Phone: [facility] 08-01-2022 09:31-0500 Body temperature 97 [degF] Royce Rivera CUSTOMER SALES CONSULTANT.GANG HEMSTITCHING MACHINE OPERATOR Work Phone: [facility] 08-01-2022 09:31-0500 Body weight 83.28 kg Royce Rivera CUSTOMER SALES CONSULTANT.GANG HEMSTITCHING MACHINE OPERATOR Work Phone: [facility] 08-01-2022 09:31-0500 Diastolic blood pressure 70 mm[Hg] Royce Pendlebury CUSTOMER SALES CONSULTANT.GANG HEMSTITCHING MACHINE OPERATOR Work Phone: [facility] 08-01-2022 09:31-0500 Heart rate 68 /min Royce Pendlebury CUSTOMER SALES CONSULTANT.GANG HEMSTITCHING MACHINE OPERATOR Work Phone: [facility] 08-01-2022 09:31-0500 Respiratory rate 18 /min Royce Pendlebury CUSTOMER SALES CONSULTANT.GANG HEMSTITCHING MACHINE OPERATOR Work Phone: [facility] 08-01-2022 09:31-0500 SaO2% (BldA) [Mass fraction] 99 % Royce Pendlebury CUSTOMER SALES CONSULTANT.GANG HEMSTITCHING MACHINE OPERATOR Work Phone: [facility] 08-01-2022 09:31-0500 Systolic blood pressure 148 mm[Hg] Royce Pendlebury CUSTOMER SALES CONSULTANT.GANG HEMSTITCHING MACHINE OPERATOR Work Phone: [facility] 07-29-2022 10:13-0500 Body temperature 98.2 [degF] Ruth Tannhof CUSTOMER SALES CONSULTANT.GANG HEMSTITCHING MACHINE OPERATOR Work Phone: [facility] 07-29-2022 10:13-0500 Body weight 81.65 kg Ruth Tannhof CUSTOMER SALES CONSULTANT.GANG HEMSTITCHING MACHINE OPERATOR Work Phone: [facility] 07-29-2022 10:13-0500 Diastolic blood pressure 72 mm[Hg] Ruth Tannhof CUSTOMER SALES CONSULTANT.GANG HEMSTITCHING MACHINE OPERATOR Work Phone: [facility] 07-29-2022 10:13-0500 Heart rate 60 /min Ruth Tannhof CUSTOMER SALES CONSULTANT.GANG HEMSTITCHING MACHINE OPERATOR Work Phone: [facility] 07-29-2022 10:13-0500 Respiratory rate 16 /min Ruth Tannhof CUSTOMER SALES CONSULTANT.GANG HEMSTITCHING MACHINE OPERATOR Work Phone: [facility] 07-29-2022 10:13-0500 SaO2% (BldA) [Mass fraction] 96 % Ruth Tannhof CUSTOMER SALES CONSULTANT.GANG HEMSTITCHING MACHINE OPERATOR Work Phone: [facility] 07-29-2022 10:13-0500 Systolic blood pressure 140 mm[Hg] Ruth Tannhof CUSTOMER SALES CONSULTANT.GANG HEMSTITCHING MACHINE OPERATOR Work Phone: [facility] 07-21-2022 08:20-0500 Body weight 82.56 kg Ruth Smithhof CUSTOMER SALES CONSULTANT.GANG HEMSTITCHING MACHINE OPERATOR Work Phone: [facility] 07-21-2022 08:20-0500 Diastolic blood pressure 60 mm[Hg] Ruth Smithhof CUSTOMER SALES CONSULTANT.GANG HEMSTITCHING MACHINE OPERATOR Work Phone: [facility] 07-21-2022 08:20-0500 Heart rate 75 /min Ruth Smithhof CUSTOMER SALES CONSULTANT.GANG HEMSTITCHING MACHINE OPERATOR Work Phone: [facility] 07-21-2022 08:20-0500 Respiratory rate 16 /min Ruth Smithhof CUSTOMER SALES CONSULTANT.GANG HEMSTITCHING MACHINE OPERATOR Work Phone: [facility] 07-21-2022 08:20-0500 SaO2% (BldA) [Mass fraction] 96 % Ruth Smithhof CUSTOMER SALES CONSULTANT.GANG HEMSTITCHING MACHINE OPERATOR Work Phone: [facility] 07-21-2022 08:20-0500 Systolic blood pressure 130 mm[Hg] Ruth Smithhof CUSTOMER SALES CONSULTANT.GANG HEMSTITCHING MACHINE OPERATOR Work Phone: [facility] 07-03-2022 23:02-0500 Body height 177.8 cm [facility] Work Phone: 07-03-2022 23:02-0500 Body mass index (BMI) [Ratio] 25.2 kg/m2 [facility] 07-03-2022 23:02-0500 Body temperature 97.1 [degF] [facility] 07-03-2022 23:02-0500 Body weight 79.83 kg [facility] 07-03-2022 23:02-0500 Diastolic blood pressure 66 mm[Hg] [facility] 07-03-2022 23:02-0500 Heart rate 88 /min [facility] 07-03-2022 23:02-0500 Respiratory rate 16 /min [facility] 07-03-2022 23:02-0500 SaO2% (BldA) [Mass fraction] 100 % [facility] 07-03-2022 23:02-0500 Systolic blood pressure 177 mm[Hg] [facility] 04-28-2022 10:57-0400 Diastolic blood pressure 66 mm[Hg] Ruth Tannhof CUSTOMER SALES CONSULTANT.GANG HEMSTITCHING MACHINE OPERATOR Work Phone: [facility] 04-28-2022 10:57-0400 Systolic blood pressure 134 mm[Hg] Ruth Tannhof CUSTOMER SALES CONSULTANT.GANG HEMSTITCHING MACHINE OPERATOR Work Phone: [facility] 04-28-2022 10:55-0400 Body weight 79.83 kg Ruth Tannhof CUSTOMER SALES CONSULTANT.GANG HEMSTITCHING MACHINE OPERATOR Work Phone: [facility] 04-28-2022 10:55-0400 Heart rate 75 /min Ruth Tannhof CUSTOMER SALES CONSULTANT.GANG HEMSTITCHING MACHINE OPERATOR Work Phone: [facility] 04-28-2022 10:55-0400 Respiratory rate 20 /min Ruth Tannhof CUSTOMER SALES CONSULTANT.GANG HEMSTITCHING MACHINE OPERATOR Work Phone: [facility] 04-28-2022 10:55-0400 SaO2% (BldA) [Mass fraction] 98 % Ruth Tannhof CUSTOMER SALES CONSULTANT.GANG HEMSTITCHING MACHINE OPERATOR Work Phone: [facility] 04-15-2022 11:40-0400 Body temperature 97 [degF] Kinga Praisler-Wood CUSTOMER SALES CONSULTANT.GANG HEMSTITCHING MACHINE OPERATOR Work Phone: [facility] 04-15-2022 11:40-0400 Body weight 82.56 kg Kinga Praisler-Wood CUSTOMER SALES CONSULTANT.GANG HEMSTITCHING MACHINE OPERATOR Work Phone: [facility] 04-15-2022 11:40-0400 Diastolic blood pressure 84 mm[Hg] Kinga Praisler-Wood CUSTOMER SALES CONSULTANT.GANG HEMSTITCHING MACHINE OPERATOR Work Phone: [facility] 04-15-2022 11:40-0400 Heart rate 81 /min Kinga Praisler-Wood CUSTOMER SALES CONSULTANT.GANG HEMSTITCHING MACHINE OPERATOR Work Phone: [facility] 04-15-2022 11:40-0400 Respiratory rate 18 /min Kinga Praisler-Wood CUSTOMER SALES CONSULTANT.GANG HEMSTITCHING MACHINE OPERATOR Work Phone: [facility] 04-15-2022 11:40-0400 SaO2% (BldA) [Mass fraction] 98 % Kinga Praisler-Wood CUSTOMER SALES CONSULTANT.GANG HEMSTITCHING MACHINE OPERATOR Work Phone: [facility] 04-15-2022 11:40-0400 Systolic blood pressure 168 mm[Hg] Kinga Praisler-Wood CUSTOMER SALES CONSULTANT.GANG HEMSTITCHING MACHINE OPERATOR Work Phone: [facility] 03-04-2022 09:54-0400 Body height 179.1 cm Phi Caba MD Work Phone: [facility] 03-04-2022 09:54-0400 Body weight 79.38 kg Phi Caba MD Work Phone: [facility] 03-04-2022 09:54-0400 Diastolic blood pressure 70 mm[Hg] Phi Caba MD Work Phone: [facility] 03-04-2022 09:54-0400 Heart rate 72 /min Phi Caba MD Work Phone: [facility] 03-04-2022 09:54-0400 Respiratory rate 16 /min Phi Caba MD Work Phone: [facility] 03-04-2022 09:54-0400 Systolic blood pressure 132 mm[Hg] Phi Caba MD Work Phone: [facility] 01-15-2022 09:29-0400 Body weight 80.74 kg Ruth Smithhof CUSTOMER SALES CONSULTANT.GANG HEMSTITCHING MACHINE OPERATOR Work Phone: [facility] 01-15-2022 09:29-0400 Diastolic blood pressure 68 mm[Hg] Ruth Tannhof CUSTOMER SALES CONSULTANT.GANG HEMSTITCHING MACHINE OPERATOR Work Phone: [facility] 01-15-2022 09:29-0400 Heart rate 59 /min Ruth Tannhof CUSTOMER SALES CONSULTANT.GANG HEMSTITCHING MACHINE OPERATOR Work Phone: [facility] 01-15-2022 09:29-0400 Respiratory rate 16 /min Ruth Tannhof CUSTOMER SALES CONSULTANT.GANG HEMSTITCHING MACHINE OPERATOR Work Phone: [facility] 01-15-2022 09:29-0400 SaO2% (BldA) [Mass fraction] 98 % Ruth Tannhof CUSTOMER SALES CONSULTANT.GANG HEMSTITCHING MACHINE OPERATOR Work Phone: [facility] 01-15-2022 09:29-0400 Systolic blood pressure 140 mm[Hg] Ruth Perez CUSTOMER SALES CONSULTANT.GANG HEMSTITCHING MACHINE OPERATOR Work Phone: [facility] NEGATED: Highlighted [id number] 12:27-0500 BMI (Body Mass Index) 24.77 kg/m2 [facility] Work Phone: NEGATED: Highlighted [id number] 12:27-0500 BP Diastolic 84 mm[Hg] [facility] Work Phone: NEGATED: Highlighted [id number] 12:27-0500 BP Systolic 134 mm[Hg] [facility] Work Phone: NEGATED: Highlighted [id number] 12:27-0500 Height 177.8 cm [facility] Work Phone: NEGATED: Highlighted [id number] 12:27-0500 Height 178 cm [facility] Work Phone: NEGATED: Highlighted [id number] 12:27-0500 Pulse (Heart Rate) 85 /min [facility] Work Phone: NEGATED: Highlighted [id number] 12:27-0500 Weight 78.02 kg [facility] Work Phone: NEGATED: Highlighted [id number] 12:27-0500 Weight 78 kg [facility] Work Phone: Encounters Encounter Date Encounter Type Care Provider Facility Start: 01-08-2025 ambulatory Michael Chi Maikel Facility:[facility] Start: 12-13-2024 End: 12-13-[address] Federico Vigil MD Work Phone: [facility] Work Phone: Start: 12-13-2024 End: 12-13-[address] Michael Ko MD -Outpatient Bone Densitometry Work Phone: Start: 12-12-2024 Non-patient / Non-visit Dr. Miller polk MD -[facility] Start: 12-12-2024 End: 12-13-[address] Federico Vigil MD Work Phone: [facility] Work Phone: Start: 12-12-2024 End: 12-12-2024 Patient encounter procedure Phoebe WESLEY -Cardiovascular Services Work Phone: Start: 12-11-2024 End: 12-11-[address] Osbaldo Vernon MD -[facility] Work Phone: Start: 12-11-2024 End: 12-11-[address] Federico Vigil MD Work Phone: [facility] Work Phone: Start: 12-11-2024 End: 12-12-[address] Federico Vigil MD Work Phone: [facility] Work Phone: Start: 12-11-2024 End: 12-11-[address] Michael Ko MD -Laboratory Work Phone: Start: 12-11-2024 End: 12-11-2024 ambulatory Michael Ko Facility:[facility] Start: 11-29-2024 End: 11-29-[address] Federico Vigil MD Work Phone: [facility] Work Phone: Start: 11-29-2024 End: 11-29-[address] Osbaldo Vernon MD -Laboratory Work Phone: Start: 11-28-2024 Non-patient / Non-visit Dr. Osbaldo ortiz MD -[facility] Start: 11-28-2024 End: 11-29-[address] Federico Vigil MD Work Phone: [facility] Work Phone: Start: 11-28-2024 End: 11-28-2024 Patient encounter procedure Karine WESLEY -Cardiovascular Services Work Phone: Start: 11-27-2024 End: 11-28-[address] Federico Vigil MD Work Phone: [facility] Work Phone: Start: 11-27-2024 End: 11-27-[address] Juan Oliver MD -Laboratory Work Phone: Start: 11-27-2024 End: 11-27-2024 [facility] Start: 11-21-2024 End: 11-21-[address] Federico Vigil MD Work Phone: [facility] Work Phone: Start: 11-21-2024 End: 11-21-[address] Juan Oliver MD -Radiology, [facility] Work Phone: Start: 11-21-2024 End: 11-21-2024 [facility] Start: 11-14-2024 End: 11-14-2024 Patient encounter procedure Phoebe WESLEY -[facility] Work Phone: Start: 11-14-2024 End: 11-14-2024 ambulatory Federico Atkinsonmershon Facility:[facility] Start: 11-09-2024 End: 11-09-2024 [facility] Start: 10-12-2024 End: 10-12-2024 ambulatory [facility]ICO [facility] Facility:[facility] Start: 10-12-2024 End: 10-12-2024 Patient encounter procedure Phani Rajan APRN.GANG HEMSTITCHING MACHINE OPERATOR Work Phone: [facility] Comment on above: APPOINTMENT CANCELLE D (Primary Dx) Start: 10-12-2024 End: 10-12-2024 Telemedicine consultation with patient Phani Rajan GANG HEMSTITCHING MACHINE OPERATOR Work Phone: [facility] [place] Start: 09-14-2024 End: 09-14-[address] Hang Pool MD -[facility] Work Phone: Start: 09-14-2024 End: 09-14-2024 ambulatory [facility] Start: 09-03-2024 End: 09-03-2024 Follow-up encounter Ruth Perez APRN.GANG HEMSTITCHING MACHINE OPERATOR Work Phone: [facility] [place] Start: 09-03-2024 End: 09-03-2024 Subsequent hospital visit by physician Jamel [facility] [place] Work Phone: Radiology Comment on above: Acute cough [R05.1] Start: 09-03-2024 End: 09-03-2024 Office outpatient visit 15 minutes Ruth Perez APRN.GANG HEMSTITCHING MACHINE OPERATOR Work Phone: [facility] [place] Comment on above: URI, acute (Primary Dx); Acute cough Start: 09-03-2024 End: 09-03-2024 [facility] Facility:[facility] Start: 08-30-2024 End: 10-30-2024 Follow-up encounter Ruth Perez APRN.CNP [facility] [place] Start: 08-29-2024 End: 08-29-2024 [facility] Facility:[facility] Start: 08-29-2024 End: 08-29-2024 Office outpatient visit 25 minutes Ruth Perez APRN.GANG HEMSTITCHING MACHINE OPERATOR Work Phone: [facility] Comment on above: Chronic gout of left knee, unspecified cause (Primary Dx) Start: 08-29-2024 End: 08-29-2024 [facility] Facility:[facility] Start: 08-24-2024 End: 08-24-2024 Subsequent hospital visit by physician Jamel [facility] [place] Work Phone: Radiology Comment on above: Acute pain of right knee [M25.561] Start: 08-24-2024 End: 08-24-2024 ambulatory [facility] Facility:[facility] Start: 08-24-2024 End: 08-24-2024 Patient encounter procedure Sumaya King NITA Work Phone: [facility] Comment on above: Acute pain of right knee (Primary Dx) Start: 08-20-2024 End: 08-20-2024 Patient encounter procedure Karine Brasher OR -[facility] Work Phone: Start: 08-20-2024 End: 08-20-2024 ambulatory [facility] Facility:[facility] Start: 08-02-2024 End: 08-02-2024 Refill Federico Vigil MD Work Phone: [facility] Comment on above: Refill Request Start: 07-24-2024 End: 07-24-2024 ambulatory [facility] Facility:[facility] Start: 07-24-2024 End: 07-24-2024 Patient encounter procedure Federico Vigil MD Work Phone: 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); Iron deficiency anemia, unspecified iron deficiency anemia type; Inflammatory polyarthropathy (HCC); Ischemic cardiomyopathy; Bilateral leg edema; Cardiomyopathy, unspecified type (HCC); Elevated glucose; Non-traumatic compression fracture of L5 lumbar vertebra with routine healing, subsequent encounter Start: 07-22-2024 [facility] Start: 07-19-2024 End: 07-19-2024 ambulatory [facility] Facility:[facility] Start: 07-16-2024 End: 07-16-2024 Telephone encounter David Lundberg Work Phone: Hematology/Oncology Comment on above: Results Start: 07-06-2024 End: 07-06-2024 ambulatory [facility] Start: 07-02-2024 End: 07-02-2024 Telephone encounter Federico Vigil MD Work Phone: [facility] [place] Comment on above: PT Plan of Care; Med ication Clarification Request Start: 06-29-2024 End: 07-02-2024 Telephone encounter Federico Vigil MD Work Phone: [facility] [place] Comment on above: Agree to follow for [facility] PT OT Start: 06-27-2024 ambulatory Federico Vigil Facilit y:[facility] Start: 06-27-2024 End: 06-29-2024 Evaluation and management of inpatient Andres Luciano Facility:[facility] Start: 06-27-2024 ambulatory Andres Luciano Facility :[facility] Start: 06-20-2024 ambulatory Hang Pool [facility] Start: 06-20-2024 End: 06-21-2024 [facility] Start: 06-20-2024 ambulatory [facility] Start: 06-18-2024 End: 07-06-2024 Telephone encounter Ruth Perez APRN.GANG HEMSTITCHING MACHINE OPERATOR Work Phone: [facility] [place] Comment on above: Results (labs) Start: 06-18-2024 End: 06-18-2024 ambulatory FEDERICO Linares [facility] Facility:[facility] Start: 06-15-2024 End: 06-15-2024 ambulatory FEDERICO Linares [facility] Facility:[facility] Start: 06-13-2024 End: 06-13-2024 Telephone encounter Federico Vigil MD Work Phone: [facility] [place] Comment on above: Results and Form Start: 06-12-2024 End: 06-12-2024 Patient encounter procedure Ruth Perez APRN.GANG HEMSTITCHING MACHINE OPERATOR Work Phone: [facility] [place] Comment on above: Preop examination (P rimary Dx); Chronic 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; GERD without esophagitis; BENIGN HYPERTENSION; Paroxysmal atrial fibrillation (HCC); Coronary artery disease involving [place] coronary artery of [place] heart with angina pectoris (HCC); Mixed hyperlipidemia; Gout involving toe of right foot, unspecified cause, unspecified chronicity; Anemia, unspecified type; Bilateral leg edema Start: 06-12-2024 End: 06-12-2024 Preprocedural examination done Ruth Perez APRN.GANG HEMSTITCHING MACHINE OPERATOR Work Phone: [facility] Work Phone: Start: 06-12-2024 End: 06-12-2024 ambulatory [facility] Facility:[facility] Start: 06-07-2024 End: 06-11-2024 Telephone encounter Federico Vigil MD Work Phone: [facility] [place] Comment on above: Forms (Medical Clear ance) Start: 06-07-2024 End: 06-07-2024 ambulatory [facility] Facility:[facility] Start: 05-31-2024 End: 05-31-2024 ambulatory Ruth Perez APRN.GANG HEMSTITCHING MACHINE OPERATOR Work Phone: [facility] [place] Comment on above: Shelton's pain Start: 05-30-2024 End: 05-30-2024 Patient encounter procedure Ruth Perez APRN.GANG HEMSTITCHING MACHINE OPERATOR Work Phone: [facility] [place] Comment on above: Chronic 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 (Primary Dx) Start: 05-30-2024 End: 05-30-2024 ambulatory [facility] Facility:[facility] Start: 05-29-2024 End: 05-29-2024 ambulatory [facility] Facility:[facility] Start: 05-24-2024 End: 05-24-2024 ambulatory [facility] Facility:[facility] Start: 05-24-2024 End: 05-24-2024 Patient encounter procedure Ruth Perez APRN.GANG HEMSTITCHING MACHINE OPERATOR Work Phone: [facility] [place] Comment on above: Sinobronchitis (Prim neville Dx) Start: 05-18-2024 End: 05-21-2024 Refill Phani Rajan APRN.GANG HEMSTITCHING MACHINE OPERATOR Work Phone: [facility] [place] Comment on above: Refill Request Start: 05-16-2024 End: 05-16-2024 Refill Ruth Perez APRN.GANG HEMSTITCHING MACHINE OPERATOR Work Phone: [facility] Comment on above: Refill Request Start: 05-02-2024 End: 05-02-2024 ambulatory [facility] [place] Work Phone: [facility] Start: 05-02-2024 End: 05-02-2024 Patient encounter procedure [facility] [place] Work Phone: [facility] [place] Start: 04-23-2024 End: 04-23-2024 Patient encounter procedure Davidevelyn Lundberg Work Phone: Hematology/Oncology Start: 04-23-2024 End: 04-23-2024 ambulatory Davidleif Lundberg Work Phone: Hematology/Oncology Comment on above: Anemia, unspecified type (Primary Dx) Start: 04-10-2024 End: 04-10-2024 [facility] Facility:[facility] Start: 03-29-2024 End: 03-29-2024 Patient encounter procedure Ruth Perez APRN.GANG HEMSTITCHING MACHINE OPERATOR Work Phone: [facility] Comment on above: Contact dermatitis, unspecified contact dermatitis type, unspecified trigger (Primary Dx); Acute right-sided low back pain without sciatica; Bilateral impacted cerumen Start: 03-29-2024 End: 03-29-2024 [facility] Facility:[facility] Start: 03-08-2024 End: 03-08-2024 Telephone encounter Federico Vigil MD Work Phone: [facility] Comment on above: Patient Update; Medi cation Request Start: 03-07-2024 ambulatory Federico Vigil Facilit y:[facility] Start: 02-28-2024 End: 02-28-2024 ambulatory [facility] Facility:[facility] Start: 02-28-2024 End: 02-28-2024 Subsequent hospital visit by physician Jamel [facility] [place] Work Phone: Radiology Comment on above: Acute right-sided lo w back pain without sciatica [M54.50] Start: 02-27-2024 End: 02-27-2024 ambulatory [facility] Facility:[facility] Start: 02-27-2024 End: 02-27-2024 Patient encounter procedure Federico Vigil MD Work Phone: [facility] [place] Comment on above: Acute right-sided lo w back pain without sciatica (Primary Dx) Start: 02-23-2024 Orders Only Phi Caba MD Work Phone: [facility] Comment on above: S/P carotid endarter ectomy (Primary Dx); Carotid stenosis, asymptomatic, bilateral Start: 02-16-2024 End: 02-16-2024 ambulatory [facility] Start: 02-16-2024 End: 02-16-2024 ambulatory [facility] Facility:[facility] Start: 02-08-2024 End: 02-08-2024 ambulatory [facility] Facility:[facility] Start: 01-27-2024 Telephone encounter Phi Caba MD Work Phone: [facility] Comment on above: Future Appointment Start: 01-26-2024 End: 01-26-2024 Patient encounter procedure Phi Caba MD Work Phone: [facility] Comment on above: Amaurosis fugax of r ight eye (Primary Dx); Bilateral extracranial carotid artery stenosis; History of right-sided carotid endarterectomy Start: 01-26-2024 End: 01-26-2024 ambulatory [facility] Facility:[facility] Start: 01-23-2024 End: 01-23-2024 [facility] Start: 01-20-2024 End: 01-20-2024 ambulatory FEDERICO [facility] Facility:[facility] Start: 01-20-2024 End: 01-20-2024 Patient encounter procedure Federico Vigil MD Work Phone: [facility] [place] Comment on above: BENIGN HYPERTENSION (Primary Dx); Mixed hyperlipidemia; Paroxysmal atrial fibrillation (HCC); Cardiomyopathy, unspecified type (HCC); Coronary artery disease involving [place] coronary artery of [place] heart with angina pectoris (HCC); Atrial fibrillation, unspecified type (HCC); Gout involving toe of right foot, unspecified cause, unspecified chronicity; GERD without esophagitis; Anemia, unspecified type; Inflammatory polyarthropathy (HCC); Headache, unspecified headache type; Ear pressure, right; Elevated glucose Start: 01-13-2024 Telephone encounter Phi Caba MD Work Phone: [facility] Comment on above: Patient Update Start: 01-04-2024 End: 01-04-2024 Patient encounter procedure Timothy Walker MD Work Phone: [facility] [place] Comment on above: Paroxysmal atrial fi brillation (HCC) (Primary Dx); Cardiomyopathy, unspecified type (HCC); Hyperlipidemia, unspecified hyperlipidemia type; Primary hypertension; Status post ablation of atrial flutter; Status post catheter ablation of atrial fibrillation Start: 01-04-2024 End: 01-04-2024 ambulatory TIMOTHY WALKER Facility:[facility] Start: 01-04-2024 Telephone encounter Phi Caba MD Work Phone: [facility] Comment on above: Patient Update (Swel ling in the neck) Start: 01-03-2024 Telephone encounter Agustin Linares [facility] Comment on above: Fabric Transition of Care Start: 12-28-2023 Telephone encounter Agustin Linares [facility] Comment on above: [facility] Transition of Care Start: 12-26-2023 End: 12-27-2023 Evaluation and management of inpatient FEDERICO VIGIL Facility:[facility] Start: 12-23-2023 Refill Federico dsouza MD Work Phone: [facility] [place] Comment on above: Refill Request Start: 12-21-2023 Refill Ruth Perez APRN.CNP Work Phone: [facility] [place] Comment on above: Refill Request Start: 12-20-2023 End: 12-20-2023 Admission to establishment [facility] Pre Surgical Testing Start: 12-20-2023 End: 12-20-2023 Preprocedural examination done [address] Start: 12-20-2023 End: 12-20-2023 ambulatory FEDERICO VIGIL Pre Surgical Testing Comment on above: Carotid stenosis, as ymptomatic, bilateral (Primary Dx); Preop examination; Paroxysmal atrial fibrillation (HCC); Mixed hyperlipidemia; Coronary artery disease involving [place] coronary artery of [place] heart with angina pectoris (HCC); Cardiomyopathy, unspecified type (HCC); BENIGN HYPERTENSION; Gastroesophageal reflux disease, unspecified whether esophagitis present; Iron deficiency anemia, unspecified iron deficiency anemia type Start: 12-19-2023 Preprocedural examination done Pst 1 [facility] Start: 12-19-2023 Encounter for other preprocedural examination RUTH RUTH [facility] Start: 12-09-2023 Telephone encounter Phi Caba MD Work Phone: [facility] Comment on above: Schedule Surgery Start: 12-08-2023 End: 12-08-2023 Patient encounter procedure Phi Caba MD Work Phone: [facility] Comment on above: Bilateral extracrani al carotid artery stenosis (Primary Dx); Amaurosis fugax of right eye Start: 12-08-2023 End: 12-08-2023 ambulatory FED[facility] Start: 11-28-2023 Telephone encounter Federico steven MD Work Phone: [facility] [place] Comment on above: Schedule Surgery Start: 11-25-2023 Telephone encounter Phi Caba MD Work Phone: [facility] Comment on above: Results (CT scan res ults) Start: 11-24-2023 End: 11-24-2023 Subsequent hospital visit by physician Maria T [facility] Work Phone: Cat Scan Comment on above: Occlusion and stenos is of unspecified carotid artery [I65.29] Start: 11-17-2023 End: 11-17-2023 Patient encounter procedure Phi Caba MD Work Phone: [facility] Comment on above: Bilateral extracrani al carotid artery stenosis (Primary Dx); Amaurosis fugax; Occlusion and stenosis of unspecified carotid artery Start: 11-17-2023 End: 11-17-2023 ambulatory FEDERICO Linares [facility] Start: 11-14-2023 End: 11-14-[address] Federico Vigil Work Phone: [facility] Work Phone: Start: 11-14-2023 End: 11-14-[address] Federico Vigil Work Phone: [facility] Work Phone: Start: 11-11-2023 Telephone encounter Elena Yon tthews CUSTOMER SALES CONSULTANT.GANG HEMSTITCHING MACHINE OPERATOR Work Phone: [facility] Comment on above: Results Start: 11-11-2023 ambulatory FEDERICO VIGIL Facil ity:[facility] Start: 11-11-2023 End: 11-11-2023 Subsequent hospital visit by physician [facility] Comment on above: Carotid stenosis, as ymptomatic, bilateral [I65.23] Start: 11-10-2023 Telephone encounter Phi Caba MD Work Phone: [facility] Comment on above: Patient Update (Visi on loss) Patient Update; Corazon ent Question Start: 11-09-2023 Telephone encounter Federico steven MD Work Phone: [facility] [place] Comment on above: Requesting testing Start: 10-27-2023 Telephone encounter David hutchinson Work Phone: Hematology/Oncology Comment on above: AVS 10/27/23 Start: 10-27-2023 End: 10-27-2023 ambulatory David Lundberg Work Phone: Hematology/Oncology Comment on above: Iron deficiency anem ia, unspecified iron deficiency anemia type (Primary Dx); Anemia, unspecified type Start: 10-27-2023 End: 10-27-2023 Patient encounter procedure David Lundberg Work Phone: [facility] Start: 10-25-2023 End: 10-25-[address] Federico Vigil Work Phone: [facility] Work Phone: Start: 10-24-2023 Orders Only David Lundberg Work Phone: Hematology/Oncology Comment on above: Anemia, unspecified type (Primary Dx); Iron deficiency anemia, unspecified iron deficiency anemia type Start: 09-23-2023 End: 09-23-[address] Federico Vigil Work Phone: [facility] Work Phone: Start: 09-23-2023 End: 09-23-[address] Federico Vigil Work Phone: [facility] Work Phone: Start: 09-19-2023 Telephone encounter Cass WALTERS Hematology/Oncology Comment on above: Social Work Services Start: 09-19-2023 End: 09-19-2023 ambulatory Treatment Rm 13 [facility] Work Phone: Hematology/Oncology Comment on above: Iron deficiency anem ia, unspecified iron deficiency anemia type (Primary Dx) Start: 09-16-2023 End: 09-16-2023 ambulatory Treatment Rm 13 Yohan [facility] Work Phone: Hematology/Oncology Comment on above: Iron deficiency anem ia, unspecified iron deficiency anemia type (Primary Dx) Start: 09-14-2023 End: 09-14-2023 ambulatory Treatment Rm 13 Yohan [facility] Work Phone: Hematology/Oncology Comment on above: Iron deficiency anem ia, unspecified iron deficiency anemia type (Primary Dx) Start: 09-13-2023 End: 09-13-[address] Federico Vigil Work Phone: [facility] Work Phone: Start: 09-13-2023 End: 09-13-[address] Federico Vigil Work Phone: [facility] Work Phone: Start: 09-08-2023 End: 09-08-2023 ambulatory Treatment [facility]m [facility] Work Phone: H[facility]Oncology Comment on above: Iron deficiency anem ia, unspecified iron deficiency anemia type (Primary Dx) Start: 09-05-2023 End: 09-05-[address] Federico Vigil Work Phone: [facility] Work Phone: Start: 09-02-2023 End: 09-02-2023 Subsequent hospital visit by physician Xr [facility] [place] Work Phone: Radiology Comment on above: Acute pain of left k nee [M25.562] Start: 09-02-2023 End: 09-02-2023 Patient encounter procedure Sumaya Alcazar APRN.CNP Work Phone: [facility] Comment on above: Acute pain of left k nee (Primary Dx) Start: 09-01-2023 End: 09-01-2023 ambulatory David Lundberg Work Phone: Hematology/Oncology Comment on above: Anemia, unspecified type (Primary Dx); Iron deficiency anemia, unspecified iron deficiency anemia type Start: 09-01-2023 End: 09-01-2023 Patient encounter procedure David Lundberg Work Phone: [facility] Start: 08-22-2023 End: 08-22-2023 ambulatory David Lundberg Work Phone: Hematology/Oncology Comment on above: Anemia, unspecified type (Primary Dx); Iron deficiency anemia, unspecified iron deficiency anemia type Start: 08-22-2023 End: 08-22-2023 Patient encounter procedure David Lundberg Work Phone: [facility] Start: 08-18-2023 Telephone encounter Federico steven MD Work Phone: [facility] [place] Comment on above: New Patient Start: 08-15-2023 End: 08-15-[address] Federico Vigil Work Phone: [facility] Work Phone: Start: 08-15-2023 End: 08-15-[address] Federico Vigil Work Phone: [facility]-Laboratory Work Phone: Start: 08-01-2023 End: 08-01-[address] Federico Vigil Work Phone: [facility] Work Phone: Start: 08-01-2023 End: 08-01-[address] Federico Vigil Work Phone: [facility]-Physical Therapy Work Phone: Start: 08-01-[address] Federico Vigil Work Phone: [facility]-Physical Therapy Work Phone: Start: 07-31-2023 End: 07-31-2023 Emergency department patient visit Dr. Federico Vigil Work Phone: [facility]-Emergency Department Work Phone: Start: 07-25-[address] Federico Vigil Work Phone: [facility]-Physical Therapy Work Phone: Start: 07-15-2023 End: 07-15-[address] Federico Vigil Work Phone: [facility] Work Phone: Start: 06-22-2023 End: 06-22-2023 Patient encounter procedure Timothy Walker MD Work Phone: [facility] [place] Comment on above: Paroxysmal atrial fi brillation (HCC) (Primary Dx); Cardiomyopathy, unspecified type (HCC); Coronary artery disease involving [place] coronary artery of [place] heart with angina pectoris (HCC); Mixed hyperlipidemia; BENIGN HYPERTENSION; Status post ablation of atrial flutter Start: 06-22-2023 End: 06-22-2023 ambulatory TIMOTHY WALKER Facility:[facility] Start: 06-06-2023 End: 06-06-2023 Patient encounter procedure Cabrera Mejia MD Work Phone: General Surgery Comment on above: Other dysphagia (Karla flaca Dx); Pain with swallowing Start: 06-06-2023 Telephone encounter Cabrera kimball MD Work Phone: General Surgery Start: 05-25-2023 Telephone encounter Ruth arango CUSTOMER SALES CONSULTANT.GANG HEMSTITCHING MACHINE OPERATOR Work Phone: [facility] Comment on above: Results (CT Head/Nec k ) Start: 05-25-2023 End: 05-25-2023 Subsequent hospital visit by physician [facility] ([facility]) Work Phone: Cat Scan Comment on above: Dizziness [R42] Start: 05-24-2023 Refill Phani REYEZ RN.GANG HEMSTITCHING MACHINE OPERATOR Work Phone: [facility] Comment on above: Refill Request Start: 05-24-2023 Telephone encounter Cabrera kimball MD Work Phone: General Surgery Comment on above: Patient Question (Qu estions regarding results) Start: 05-22-2023 ambulatory Ruth Perez CUSTOMER SALES CONSULTANT.GANG HEMSTITCHING MACHINE OPERATOR Work Phone: [facility] Comment on above: Pantoprazole Start: 05-20-2023 [facility] Start: 05-19-2023 End: 05-19-[address] Federico Vigil Work Phone: [facility] [facility] Work Phone: Start: 05-10-2023 End: 05-11-2023 Emergency department patient visit [facility]Emergency Department Work Phone: Start: 05-10-2023 Telephone encounter Rick Snell [facility] Surgery Comment on above: GIPRE OP CALL Start: 05-09-2023 End: 05-09-2023 Patient encounter procedure Ruth Perez CUSTOMER SALES CONSULTANT.GANG HEMSTITCHING MACHINE OPERATOR Work Phone: [facility] Comment on above: Paroxysmal atrial fi brillation (HCC) (Primary Dx); Dizziness; Tinnitus, unspecified laterality; Bilateral impacted cerumen; Tenderness of neck Start: 05-01-2023 ambulatory Ruth Perez APRN.GANG HEMSTITCHING MACHINE OPERATOR Work Phone: [facility] Comment on above: RSV vaccine Start: 04-26-2023 End: 04-26-2023 Patient encounter procedure Gretel Morgan PA-C Work Phone: General Surgery Comment on above: Pain with swallowing (Primary Dx); History of colonic polyps; Upper abdominal pain Start: 04-22-2023 End: 04-22-2023 ambulatory Immunization Clinic Nurse Brianna Work Phone: [facility] Start: 04-17-2023 End: 04-17-2023 Patient encounter procedure Ita Villanueva APRN.GANG HEMSTITCHING MACHINE OPERATOR Work Phone: [facility] Comment on above: Rash (Primary Dx); Acute gout involving toe of right foot, unspecified cause Start: 04-13-2023 End: 04-13-2023 Subsequent hospital visit by physician [facility] Work Phone: Radiology Comment on above: Enlarged thyroid [E0 4.9] Start: 04-01-2023 End: 04-01-2023 ambulatory [facility] Work Phone: Start: 04-01-2023 End: 04-01-2023 Patient encounter procedure [facility] Work Phone: Start: 03-29-2023 End: 03-29-2023 Patient encounter procedure Malathi Sam APRN.GANG HEMSTITCHING MACHINE OPERATOR Work Phone: [facility]iology [place] Comment on above: Status post catheter ablation of atrial fibrillation (Primary Dx); Status post ablation of atrial flutter; Paroxysmal atrial fibrillation (HCC); terminal gauger current use of antiarrhythmic drug; terminal gauger (current) use of anticoagulants; At risk for stroke Start: 03-29-2023 End: 03-29-2023 ambulatory FEDERICO VIGIL Facility:[facility] Start: 03-29-2023 ambulatory TIMOTHY WALKER Facility:[facility] Start: 03-29-2023 End: 03-29-2023 Subsequent hospital visit by physician Ekg/Holter/Event Monitor [place] [facility] Comment on above: Persistent atrial fi brillation (HCC) [I48.19] Start: 03-24-2023 End: 03-24-2023 ambulatory FEDERICO VIGIL Facility:[facility] Start: 03-18-2023 Refill Thomas Pruitt NITA Work Phone: [facility] Comment on above: Refill Request Start: 02-21-2023 Telephone encounter Phi Caba MD Work Phone: [facility] Comment on above: Patient Update (Head pain and blurred vision) Start: 02-17-2023 Telephone encounter Federico steven MD Work Phone: [facility] Comment on above: [facility] Sleep Disorder C enter Start: 01-25-2023 Telephone encounter Phi Caba MD Work Phone: [facility] Comment on above: Appointment (Annual f/up with testing MORRISON) Start: 01-17-2023 End: 01-17-2023 Patient encounter procedure Federico Vigil MD Work Phone: [facility] Comment on above: BENIGN HYPERTENSION (Primary Dx); GERD without esophagitis; Mixed hyperlipidemia; PAD (peripheral artery disease) (HCC); Atrial fibrillation, unspecified type (HCC); Cardiomyopathy, ischemic; Ischemic cardiomyopathy Start: 01-04-2023 End: 01-04-[address] Federico Vigil Work Phone: [facility] Work Phone: Start: 01-04-2023 End: 01-04-[address] Federico Vigil Work Phone: [facility]-Laboratory Start: 12-30-2022 Telephone encounter Timothy antoine MD Work Phone: [facility] [place] Comment on above: Orders Start: 12-25-2022 End: 12-25-2022 Emergency department patient visit Dr. Federico Vigil Work Phone: [facility]-Emergency Department Start: 12-18-2022 End: 12-18-[address] Federico Vigil Work Phone: [facility] Work Phone: Start: 12-18-2022 End: 12-18-[address] Federico Vigil Work Phone: [facility], [facility] Start: 11-30-2022 Telephone encounter Timothy antoine MD Work Phone: [facility] Cardiology [place] Comment on above: Preparations For Pro cedures Start: 11-29-2022 End: 11-29-2022 Patient encounter procedure Timothy Walker MD Work Phone: [facility] [place] Comment on above: PAF (paroxysmal atri al fibrillation) ([facility]) (Primary Dx); Atrial fibrillation, unspecified type (HCC); Cardiomyopathy, ischemic; PAD (peripheral artery disease) ([facility]); Mixed hyperlipidemia; Coronary artery disease involving [place] coronary artery of [place] heart without angina pectoris; S/P drug eluting coronary stent placement Start: 11-16-2022 End: 11-16-[address] Federico Vigil Work Phone: [facility] Work Phone: Start: 11-16-2022 End: 11-16-[address] Federico Vigil Work Phone: [facility] Start: 11-12-2022 End: 11-12-[address] Federico Vigil Work Phone: [facility] Work Phone: Start: 11-12-2022 End: 11-12-[address] [facility] Start: 11-10-2022 Telephone encounter Federico steven MD Work Phone: [facility] [place] Comment on above: patient update/reque sting medication ([id number]/) Orders Patient Update; Corazon ent Question Start: 11-07-2022 ambulatory Karina carrasco Work Phone: Podiatry Comment on above: Gout Start: 11-04-2022 End: 11-04-[address] Federico Vigil Work Phone: [facility] Start: 11-03-2022 End: 11-03-2022 Subsequent hospital visit by physician [facility] Work Phone: Radiology Comment on above: Acute idiopathic gou t, unspecified site [M10.00] Start: 10-29-2022 Non-patient / Non-visit Dr. Yon Vigil Work Phone: [facility] Start: 10-27-2022 End: 10-27-2022 Patient encounter procedure Ruth Perez APRN.GANG HEMSTITCHING MACHINE OPERATOR Work Phone: [facility] Comment on above: Atrial fibrillation, unspecified type (HCC) (Primary Dx); BENIGN HYPERTENSION; Mixed hyperlipidemia; GERD without esophagitis; Gout involving toe of right foot, unspecified cause, unspecified chronicity Start: 10-25-2022 End: 10-25-2022 Patient encounter procedure Karina Cline Work Phone: Podiatry Comment on above: Acute gout involving toe of left foot, unspecified cause (Primary Dx); Pain in left foot; Tailor's bunion of left foot Start: 10-16-2022 Refill Ruth Perez APRN.GANG HEMSTITCHING MACHINE OPERATOR Work Phone: [facility] Comment on above: Refill Request Start: 10-14-2022 ambulatory Karina carrasco Work Phone: Podiatry Comment on above: xrays Start: 10-14-2022 E-mail encounter fro m caregiver Karina Cline Work Phone: [facility] Start: 10-12-2022 Orders Only Karina carrasco Work Phone: Podiatry Comment on above: Acute gout involving toe of left foot, unspecified cause (Primary Dx) Start: 10-12-2022 End: 10-12-[address] Federico Vigil Work Phone: [facility] Start: 10-11-2022 Telephone encounter Karina Pedroza Work Phone: Podiatry Comment on above: Medication Problem ( Pharmacy issue) Start: 10-11-2022 End: 10-11-2022 Patient encounter procedure Karina Cline Work Phone: Podiatry Comment on above: Acute gout involving toe of left foot, unspecified cause (Primary Dx); Pain in left foot Start: 10-10-2022 ambulatory Karina carrasco Work Phone: Podiatry Comment on above: Left foot bunion and repeated gout despite allipurinol Start: 10-07-2022 Non-patient / Non-visit Dr. Yon Vigil Work Phone: [facility] Start: 10-06-2022 End: 10-07-2022 Evaluation and management of inpatient Dr. Federico Vigil Work Phone: [facility]-Progressive Care Unit Start: 09-27-2022 End: 09-27-2022 Subsequent hospital visit by physician [facility] Work Phone: Radiology Comment on above: Pain [R52] Start: 09-27-2022 End: 09-27-2022 Patient encounter procedure Ita Villanueva APRN.CNP Work Phone: [facility] Comment on above: Pain (Primary Dx); Acute gout involving toe of left foot, unspecified cause Start: 09-24-2022 Non-patient / Non-visit Dr. Yon Vigil Work Phone: [facility] Start: 09-24-2022 End: 09-24-[address] Federico Vigil Work Phone: [facility] Work Phone: Start: 09-24-2022 End: 09-24-[address] Federico Vigil Work Phone: [facility]-Cardiovascular Services Start: 09-21-2022 Refill Ruth Perez APRN.GANG HEMSTITCHING MACHINE OPERATOR Work Phone: [facility] Comment on above: Refill Request Start: 09-16-2022 Telephone encounter Federico steven MD Work Phone: [facility] Comment on above: Gout Flare Start: 09-14-2022 Refill Ruth Perez APRN.GANG HEMSTITCHING MACHINE OPERATOR Work Phone: [facility] Comment on above: Refill Request Start: 09-13-2022 End: 09-13-[address] Federico Vigil Work Phone: [facility] Start: 09-07-2022 ambulatory Ruth Perez APRN.GANG HEMSTITCHING MACHINE OPERATOR Work Phone: [facility] Comment on above: Cough Start: 09-06-2022 Telephone encounter Federico steven MD Work Phone: [facility] Comment on above: Need new order for s tress test Start: 09-01-2022 Telephone encounter Ruth arango CUSTOMER SALES CONSULTANT.GANG HEMSTITCHING MACHINE OPERATOR Work Phone: [facility] Comment on above: Results (Echo ) Start: 08-30-2022 Telephone encounter Ruth arango CUSTOMER SALES CONSULTANT.GANG HEMSTITCHING MACHINE OPERATOR Work Phone: [address] [place] [address] Comment on above: Orders Start: 08-27-2022 Telephone encounter Federico steven MD Work Phone: [facility] Comment on above: Cough Start: 08-13-2022 Telephone encounter Ruth arango CUSTOMER SALES CONSULTANT.GANG HEMSTITCHING MACHINE OPERATOR Work Phone: [facility] Comment on above: Results (Labs ) Start: 08-05-2022 End: 08-05-2022 Patient encounter procedure Ruth Perez APRN.GANG HEMSTITCHING MACHINE OPERATOR Work Phone: [facility] Comment on above: History of gout (Karla flaca Dx) Start: 08-01-2022 End: 08-01-2022 Office outpatient visit 25 minutes Royce Rivera CUSTOMER SALES CONSULTANT.GANG HEMSTITCHING MACHINE OPERATOR Work Phone: [facility] Comment on above: Toe swelling (Primar y Dx) Start: 07-29-2022 End: 07-29-2022 Patient encounter procedure Ruth Perez APRN.CNP Work Phone: [facility] Comment on above: Pain with swallowing (Primary Dx); GERD without esophagitis Start: 07-23-2022 End: 07-23-2022 Subsequent hospital visit by physician [facility] Work Phone: Radiology Comment on above: Enlarged thyroid [E0 4.9] Start: 07-21-2022 End: 07-21-2022 Patient encounter procedure Ruth Perez APRN.GANG HEMSTITCHING MACHINE OPERATOR Work Phone: [facility] Comment on above: Dizziness (Primary D x); Enlarged thyroid Start: 07-16-2022 ambulatory Felicia Olguin RN NURSE O N CALL Comment on above: Dizziness Start: 07-04-2022 Non-patient / Non-visit Dr. Yon maldonado [facility] Work Phone: [facility] Start: 07-04-2022 End: 07-04-2022 ambulatory [facility] Work Phone: Start: 07-04-2022 End: 07-04-2022 Patient encounter procedure [facility] Start: 07-03-2022 End: 07-04-2022 Emergency department patient visit [facility]Emergency Department Start: 04-28-2022 End: 04-28-2022 Patient encounter procedure Ruth Perez APRN.GANG HEMSTITCHING MACHINE OPERATOR Work Phone: [facility] Comment on above: BENIGN HYPERTENSION (Primary Dx); Mixed hyperlipidemia; PAD (peripheral artery disease) ([facility]); ED (erectile dysfunction) of organic origin; Gastroesophageal reflux disease, unspecified whether esophagitis present; Need for influenza vaccination Start: 04-21-2022 Telephone encounter Federico steven MD Work Phone: [facility] Comment on above: Patient Question Start: 04-20-2022 End: 04-20-2022 Patient encounter procedure Karina Cline Work Phone: Podiatry Comment on above: Tailor's bunion of l eft foot (Primary Dx) Start: 04-20-2022 End: 04-20-2022 Subsequent hospital visit by physician [facility] Brianna Jenkins Work Phone: Radiology Comment on above: Pain in left foot [M 79.672] Start: 04-16-2022 Orders Only Karina carrasco Work Phone: Podiatry Comment on above: Pain in left foot (P rimary Dx) Start: 04-15-2022 Refill Karma Alberto APR N.GANG HEMSTITCHING MACHINE OPERATOR Work Phone: Gastroenterology Comment on above: Refill Request Start: 04-15-2022 End: 04-15-2022 Subsequent hospital visit by physician [facility] Brianna Work Phone: Radiology Comment on above: Acute cough [R05.1] Start: 04-15-2022 End: 04-15-2022 Patient encounter procedure Kinga Pepper APRN.GANG HEMSTITCHING MACHINE OPERATOR Work Phone: [facility] Comment on above: Acute cough (Primary Dx); Suspected COVID-19 virus infection; BENIGN HYPERTENSION; Lower resp. tract infection Start: 04-11-2022 Refill Karma Alberto APR N.GANG HEMSTITCHING MACHINE OPERATOR Work Phone: Gastroenterology Comment on above: Refill Request Start: 03-06-2022 Refill Federico dsouza MD Work Phone: [facility] Comment on above: Refill Request Start: 03-04-2022 End: 03-04-2022 Patient encounter procedure Phi Caba MD Work Phone: [facility]iac[facility] Comment on above: Carotid stenosis, as ymptomatic, bilateral (Primary Dx) Start: 03-01-2022 Telephone encounter Phi Caba MD Work Phone: [facility] Cardiac, [facility]acic [facility]ties Comment on above: Appointment Refill Request; Refi ll Request Start: 01-19-2022 Telephone encounter Ruth arango CUSTOMER SALES CONSULTANT.GANG HEMSTITCHING MACHINE OPERATOR Work Phone: [facility] Comment on above: Results (Labs) Start: 01-15-2022 End: 01-15-2022 Patient encounter procedure Ruth Perez CUSTOMER SALES CONSULTANT.GANG HEMSTITCHING MACHINE OPERATOR Work Phone: [facility] [place] Comment on above: Leg cramping (Primar y Dx) Start: 11-24-2021 End: 11-24-2021 Patient encounter procedure Karina Cline Work Phone: Podiatry Comment on above: Bursitis of right fo ot (Primary Dx); Tailor's bunion of right foot Start: 11-24-2021 End: 11-24-2021 Subsequent hospital visit by physician [facility] [place] [facility] Work Phone: Radiology Comment on above: Pain [R52] Start: 11-16-2021 Orders Only Karina carrasco Work Phone: [facility] Comment on above: Pain (Primary Dx) Start: 10-15-2021 Refill Karma Alberto APR N.GANG HEMSTITCHING MACHINE OPERATOR Work Phone: Gastroenterology Comment on above: Refill Request Start: 10-15-2021 Refill Karma Alberto APR N.GANG HEMSTITCHING MACHINE OPERATOR Work Phone: Gastroenterology Comment on above: Refill Request Start: 07-29-2020 End: 07-29-2020 Subsequent hospital visit by physician [facility] [place] Work Phone: Radiology Comment on above: Acute pain of left s houlder [M25.512] Start: 02-02-2019 Ambulatory ANTOINETTE DEAN Facilit y:[facility] Start: 08-04-2018 End: 08-08-2018 Patient encounter procedure Serge Dubon MD Work Phone: [facility] Work Phone: Start: 01-20-2018 End: 01-20-2018 Ambulatory VICKIE PAEZ Facility:[facility] Start: 12-29-2017 Ambulatory VICKIE PAEZ Facilit y:[facility] Procedures Date Procedure Procedure Detail Performing Clinician Start: 12-13-2024 Dual energy X-ray absorptiometry Dr. Federico Vigil MD Work Phone: Start: 12-11-2024 Hepatitis C antibody measurement Dr. Federico Vigil MD Work Phone: Comment on above: Reactive: Presumptiv e evidence of antibodies to HCV. Follow CDC recommendations for supplemental testing.Non-Reactive: Antibodies to HCV were not detected; does not exclude the possibility of exposure to HCVReactive Results are presumptive evidence of antibodies to HCV. Follow CDC recommendations for supplemental testing.Order confirmation testing: HCV Quant by PCR testing - HCVPCR #[id number] Non Reactive: < 0.8 Equivocal: >/= 0.8 to < 1.0 Reactive: >/= 1.0The CDC requires that a reactive/equivocal HCV antibody result be sent out for confirmation. HCV Quant by PCR testing. Start: 12-11-2024 Vitamin D, 25-hydrox y measurement Dr. Federico Vigil MD Work Phone: Comment on above: Vitamin D StatusDefi ciency: <20 ng/mL (50nmol/L)Insufficiency: 20-30 ng/mL (50-75 nmol/L)Sufficiency: 30-100 ng/mL (75-250 nmol/L)Toxicity: >100 ng/mL (>250 nmol/L) Start: 11-21-2024 X-ray of lumbosacral spine Dr. Federico Vigil MD Work Phone: Start: 09-14-2024 X-ray of lumbar spin e, two or three views Dr. Federico Vigil MD Work Phone: Start: 09-03-2024 Radiologic exam ches t 2 views Ruth Perez APRN.GANG HEMSTITCHING MACHINE OPERATOR Work Phone: Start: 09-03-2024 STREP A MOLECULAR (POC) Ruth Perez APRN.GANG HEMSTITCHING MACHINE OPERATOR Work Phone: Start: 08-24-2024 Radiologic exam knee complete 4/more views Sumaya Alcazar APRN.GANG HEMSTITCHING MACHINE OPERATOR Work Phone: Start: 02-28-2024 Radex spine lumbosac ral 2/3 views Federico Vigil MD Work Phone: Start: 01-20-2024 Adult depression screening assessment Federico Vigil MD Work Phone: Start: 12-26-2023 History of carotid endarterectomy S/P carotid endarterectomy Gyant Jossy VIDALES Start: 12-20-2023 Antibody screen FEDERICO WILLIS Comment on above: Order Comment: Speci men Type: BLOOD SPECIMENOrdering Facility: [facility] Address: [address] [place] [address] [place] [address] Performed By: #### T [id number] ####[facility] [id number] [place] [address] [facility] Start: 11-24-2023 Ct angiography head w/contrast/noncontrast Phi Caba MD Work Phone: Start: 11-24-2023 Ct angiography neck w/contrast/noncontrast Phi Caba MD Work Phone: Start: 11-14-2023 MRI of cervical spine Milagros Vigil Work Phone: Start: 11-11-2023 Ct angiography head w/contrast/noncontrast Elena Watkins CUSTOMER SALES CONSULTANT.GANG HEMSTITCHING MACHINE OPERATOR Work Phone: Start: 11-11-2023 Ct angiography neck w/contrast/noncontrast Vel Kc MA Start: 11-11-2023 Creatinine blood [facility] Pr ovider Start: 09-05-2023 Radiologic examinati on of knee Dr. Federico Vigil Work Phone: Start: 09-02-2023 Radiologic exam knee complete 4/more views Sumaya Alcazar CUSTOMER SALES CONSULTANT.GANG HEMSTITCHING MACHINE OPERATOR Work Phone: Start: 07-31-2023 Plain x-ray of hand Dr. Federico Vigil Work Phone: Start: 07-31-2023 CT of chest without contrast Dr. Federico Vigil Work Phone: Start: 07-31-2023 Diagnostic radiograp hy of finger Dr. Federico Vigil Work Phone: Start: 07-15-2023 X-ray of cervical spine Dr. Federico Vigil Work Phone: Start: 05-25-2023 Ct angiography head w/contrast/noncontrast Ruth Perez CUSTOMER SALES CONSULTANT.GANG HEMSTITCHING MACHINE OPERATOR Work Phone: Start: 05-25-2023 Ct angiography neck w/contrast/noncontrast Ruth Perez CUSTOMER SALES CONSULTANT.GANG HEMSTITCHING MACHINE OPERATOR Work Phone: Start: 05-10-2023 Computed tomography of abdomen and pelvis with intravenous contrast Start: 04-22-2023 INFLUENZA VACCINE, P RSV FREE, AGE 65+ YR, HIGH DOSE, QUADRIVALENT (FLUZONE HIGH-DOSE) Federico Vigil MD Work Phone: Start: 04-13-2023 Us soft tissue head & neck real time imge docm Ruth Perez CUSTOMER SALES CONSULTANT.GANG HEMSTITCHING MACHINE OPERATOR Work Phone: Start: 03-29-2023 Ecg routine ecg w/le ast 12 lds w/i&r Malathi Sam CUSTOMER SALES CONSULTANT.GANG HEMSTITCHING MACHINE OPERATOR Work Phone: Start: 03-29-2023 Echo tthrc r-t 2d w/wom-mode compl spec&colr d Timothy Walker MD Work Phone: Start: 12-25-2022 CT angiography of ch est with contrast Dr. Federico Vigil Work Phone: Start: 12-18-[address] Federico Vigil Work Phone: Start: 11-03-2022 Radex foot complete minimum 3 views Karina Cline Work Phone: Start: 09-27-2022 Radex foot complete minimum 3 views Ita Villanueva CUSTOMER SALES CONSULTANT.GANG HEMSTITCHING MACHINE OPERATOR Work Phone: Start: 09-24-2022 Cardiovascular stres s test using pharmacologic stress agent Dr. Federico Vigil Work Phone: Start: 09-15-2022 History of placement of stent for coronary artery disease History of coronary artery stent placement Dr. Federico Vigil Work Phone: Comment on above: 1st OM(Ostial)-PTCA/ CALE Resolute Mikana 2.5x18mm and Resolute Lc 2.25x8mm, Mid Circumflex PTCA Start: 07-23-2022 Us soft tissue head & neck real time imge docm Ruth Ruth CUSTOMER SALES CONSULTANT.GANG HEMSTITCHING MACHINE OPERATOR Work Phone: Start: 04-28-2022 INFLUENZA SEASONAL QUADRIVALENT HIGH DOSE AGE 65+ Ruth Smithsravanipat CUSTOMER SALES CONSULTANT.GANG HEMSTITCHING MACHINE OPERATOR Work Phone: Start: 04-15-2022 Radiologic exam ches t 2 views Kinga Pepper CUSTOMER SALES CONSULTANT.GANG HEMSTITCHING MACHINE OPERATOR Work Phone: Start: 11-24-2021 Radex foot complete minimum 3 views Karina Cline Work Phone: Start: 10-06-2021 Adult depression screening assessment Karma Alberto CUSTOMER SALES CONSULTANT.GANG HEMSTITCHING MACHINE OPERATOR Work Phone: Start: 07-29-2020 Radex shoulder compl ete minimum 2 views Reyna Mandel CUSTOMER SALES CONSULTANT.GANG HEMSTITCHING MACHINE OPERATOR Work Phone: Start: 08-04-2018 End: 08-08-2018 [...] Start: 08-04-2018 End: 08-08-2018 Tobacco non-user Serge Dubon MD Work Phone: Start: 10-01-2010 H/O: artificial joint Shoulder joint replacement by other means Karma Alberto CUSTOMER SALES CONSULTANT.GANG HEMSTITCHING MACHINE OPERATOR Work Phone: Start: 09-28-2010 H/O: artificial joint Shoulder joint replacement Karma Alberto GANG HEMSTITCHING MACHINE OPERATOR Work Phone: History of carotid endarterectomy History of right-sided carotid endarterectomy Phi Caba MD Work Phone: History of carotid endarterectomy S/P carotid endarterectomy Phi Caba MD Work Phone: History of placement of stent for coronary artery disease S/P drug eluting coronary stent placement Timothy Walker MD Work Phone: Plan of Treatment Date Care Activity Detail Author Start: 08-29-2027 Diabetes Screening Diabetes Screening [facility] Start: 06-18-2027 Diabetes Screening Diabetes Screening [facility] Start: 01-22-2027 Diabetes Screening Diabetes Screening [facility] Start: 12-26-2026 Diabetes Screening Diabetes Screening [facility] Start: 12-19-2026 Diabetes Screening Diabetes Screening [facility] Start: 08-22-2026 Diabetes Screening Diabetes Screening [facility] Start: 07-21-2026 Diabetes Screening Diabetes Screening [facility] Start: 12-21-2025 DIABETES SCREEN DIABETES SCREEN [facility] Start: 12-21-2025 Diabetes Screening Diabetes Screening [facility] Start: 10-12-2025 Annual PCP Team Chronic Disease Visit Annual PCP Team Chronic Disease Visit [facility] Start: 09-03-2025 Annual PCP Team Chronic Disease Visit Annual PCP Team Chronic Disease Visit [facility] Start: 09-03-2025 BP Controlled (<130/80) BP Controlled (<130/80) [facility] Start: 08-29-2025 Annual PCP Team Chronic Disease Visit Annual PCP Team Chronic Disease Visit [facility] Start: 07-24-2025 Annual PCP Team Chronic Disease Visit Annual PCP Team Chronic Disease Visit [facility] Start: 07-24-2025 BP Controlled (<130/80) BP Controlled (<130/80) [facility] Start: 07-21-2025 DIABETES SCREEN DIABETES SCREEN [facility] Start: 06-12-2025 Annual PCP Team Chronic Disease Visit Annual PCP Team Chronic Disease Visit [facility] Start: 06-12-2025 BP Controlled (<130/80) BP Controlled (<130/80) [facility] Start: 05-30-2025 Annual PCP Team Chronic Disease Visit Annual PCP Team Chronic Disease Visit [facility] Start: 05-30-2025 BP Controlled (<130/80) BP Controlled (<130/80) [facility] Start: 03-29-2025 Annual PCP Team Chronic Disease Visit Annual PCP Team Chronic Disease Visit [facility] Start: 02-26-2025 Annual PCP Team Chronic Disease Visit Annual PCP Team Chronic Disease Visit [facility] Start: 02-26-2025 BP Controlled (<130/80) BP Controlled (<130/80) [facility] Start: 01-25-2025 End: 01-25-2025 Patient encounter procedure 01/25/2025 11:00 AM EDT Office Visit Family Medicine [place] [address] [place], [place] [id number] Federico Vigil MD [address] [place], [place] [address] 6 month follow up Family Medicine [place] Comment on above: 6 month follow up Start: 01-22-2025 Hepatitis B surface antibody level LDL Cholesterol [facility] Start: 01-21-2025 End: 04-22-2025 Comprehensive metabolic 2000 panel - Serum or Plasma COMPREHENSIVE METABOLIC PANEL Lab Routine Hyperlipidemia, unspecified hyperlipidemia type PAD (peripheral artery disease) (HCC) Coronary artery disease involving [place] coronary artery of [place] heart with angina pectoris (HCC) Elevated glucose Expected: 01/21/2025 (Approximate), Expires: 04/22/2025 [facility] Work Phone: Comment on above: Expected: 01/21/2025 (Approximate), Expi res: 04/22/2025 Start: 01-21-2025 End: 04-22-2025 Hemoglobin A1c in Blood HEMOGLOBIN A1C Lab Routine Elevated glucose Expected: 01/21/2025 (Approximate), Expires: 04/22/2025 [facility] Comment on above: Expected: 01/21/2025 (Approximate), Expi res: 04/22/2025 Start: 01-21-2025 End: 04-22-2025 Lipid 1996 panel - Serum or Plasma LIPID PANEL BASIC Lab Routine Hyperlipidemia, unspecified hyperlipidemia type PAD (peripheral artery disease) (HCC) Coronary artery disease involving [place] coronary artery of [place] heart with angina pectoris (HCC) Expected: 01/21/2025 (Approximate), Expires: 04/22/2025 [facility] Comment on above: Expected: 01/21/2025 (Approximate), Expi res: 04/22/2025 Start: 01-21-2025 End: 04-22-2025 Urate [Mass/volume] in Serum or Plasma URIC ACID Lab Routine Gout involving toe of right foot, unspecified cause, unspecified chronicity Expected: 01/21/2025 (Approximate), Expires: 04/22/2025 [facility] Comment on above: Expected: 01/21/2025 (Approximate), Expi res: 04/22/2025 Start: 01-19-2025 Annual PCP Team Chronic Disease Visit Annual PCP Team Chronic Disease Visit [facility] Start: 01-19-2025 Anxiety Screening Anxiety Screening [facility] Start: 01-19-2025 Depression Screening Depression Screening [facility] Start: 01-15-2025 DIABETES SCREEN DIABETES SCREEN [facility] Start: 12-19-2024 BP Controlled (<130/80) BP Controlled (<130/80) [facility] in Start: 12-07-2024 BP Controlled (<130/80) BP Controlled (<130/80) [facility] Start: 10-22-2024 End: 10-22-2024 ambulatory [facility] Comment on above: CBC/IRON STUDIES* 6 MO OV/LABS EARLY* Start: 10-18-2024 Covid-19 Vaccine () Covid-19 Vaccine () [facility] Start: 10-06-2024 DIABETES SCREEN DIABETES SCREEN [facility] Start: 09-02-2024 BP Controlled (<130/80) BP Controlled (<130/80) [facility] in Start: 08-29-2024 End: 11-28-2024 Comprehensive metabolic 2000 panel - Serum or Plasma [facility] Comment on above: Expected: 08/29/2024, Expires: Start: 08-29-2024 End: 11-28-2024 Urate [Mass/volume] in Serum or Plasma [facility] Work Phone: Comment on above: Expected: 08/29/2024, Expires: Start: 08-22-2024 BP Controlled (<130/80) BP Controlled (<130/80) [facility] Start: 08-16-2024 Annual PCP Team Chronic Disease Visit Annual PCP Team Chronic Disease Visit [facility] Start: 08-16-2024 BP Controlled (<130/80) BP Controlled (<130/80) [facility] Start: 07-24-2024 End: 07-24-2024 Patient encounter procedure 07/24/2024 10:40 AM EST Office Visit Family Medicine [place] [address] [place] [address] Federico Vigil MD [address] [place] [address] 6 mo follow up Family Medicine [place] Comment on above: 6 mo follow up Start: 07-24-2024 End: 07-24-2024 ambulatory 07/24/2024 10:00 AM EST Results Only [place] [facility] [address] [place] [address] CBC/IRON STUDIES* [place] [facility] Comment on above: CBC/IRON STUDIES* Start: 07-21-2024 Hepatitis B surface antibody level LDL Cholesterol [facility] Start: 07-19-2024 End: 07-19-2024 ambulatory 07/19/2024 11:00 AM EST Results Only [place] [facility] [address] [place] [address] CBC/Iron studies [place] [facility] Comment on above: CBC/Iron studies Start: 07-18-2024 Advance Directive Discussion Advance Directive Discussion [facility] Start: 06-22-2024 BP Controlled (<130/80) BP Controlled (<130/80) [facility] Start: 06-15-2024 End: 06-15-2024 ambulatory 06/15/2024 8:45 AM EST Results Only [place] [facility] [address] [place] [address] [place] [facility] Start: 06-13-2024 End: 09-12-2024 Comprehensive metabolic 2000 panel - Serum or Plasma COMPREHENSIVE METABOLIC PANEL Lab Routine Hyponatremia Expected: 06/13/2024, Expires: 09/12/2024 [facility] Work Phone: Comment on above: Expected: 06/13/2024, Expires: Start: 06-12-2024 End: 06-12-2024 Patient encounter procedure 06/12/2024 10:00 AM EST Office Visit Family Medicine [place] [address] [facility] [place] [address] Ruth Perez, CUSTOMER SALES CONSULTANT.[employer]ANG H[employer]STITCHING MACHINE OPERATOR [address] [place] [address] Pre - op check [facility] [place] Comment on above: Pre - op check Start: 06-06-2024 BP Controlled (<130/80) BP Controlled (<130/80) [facility] Start: 05-24-2024 End: 05-24-2024 Patient encounter procedure 05/24/2024 9:20 AM EST Office Visit Family Medicine [place] [address] [facility] [place] [address] Ruth Perez, CUSTOMER SALES CONSULTANT.GANG HEMSTITCHING MACHINE OPERATOR [address] [place] [address] Lingering cough and cold Family Medicine [place] Comment on above: Lingering cough and cold Start: 05-18-2024 BP Controlled (<130/80) BP Controlled (<130/80) [facility] Start: 05-09-2024 Annual PCP Team Chronic Disease Visit Annual PCP Team Chronic Disease Visit [facility] Start: 05-09-2024 BP Controlled (<130/80) BP Controlled (<130/80) [facility] Start: 04-23-2024 End: 04-23-2024 ambulatory [place] [facility] Comment on above: CBC/FERRITIN/IRON STUDIES* 6 MO OV/LABS EARLY* Start: 04-06-2024 Annual PCP Team Chronic Disease Visit Annual PCP Team Chronic Disease Visit [facility] Start: 03-18-2024 Covid-19 Vaccine ( season) Covid-19 Vaccine () [facility] Start: 03-18-2024 Covid-19 Vaccine () Covid-19 Vaccine () [facility] Start: 03-18-2024 Influenza vaccination Influenza Vaccine (#1) [facility] Start: 02-27-2024 End: 02-27-2024 Patient encounter procedure 02/27/2024 10:00 AM EDT Appointment Radiology [address] [place] [address] Bilateral extracranial carotid artery stenosis [I65.23]; History of right-sided carotid endarterectomy [Z98.890] Radiology Comment on above: Bilateral extracranial carotid artery st enosis [I65.23]; History of right-sided carotid endarterectomy [Z98.890] Start: 02-26-2024 End: 02-24-2025 US Carotid arteries - bilateral US CAROTID BILATERAL Radiology Routine Bilateral extracranial carotid artery stenosis History of right-sided carotid endarterectomy Expected: 02/26/2024, Expires: 02/24/2025 [facility] Work Phone: Comment on above: Expected: 02/26/2024, Expires: Start: 01-26-2024 End: 01-26-2024 Patient encounter procedure [facility] Comment on above: PO RCEA done on 12/25 by DOLLY PO RCEA done on 12/25 by DOLLY ([facility] & pt out week of 01/30/24) Start: 01-23-2024 End: 04-23-2024 Comprehensive metabolic 2000 panel - Serum or Plasma COMPREHENSIVE METABOLIC PANEL Lab Routine BENIGN HYPERTENSION Elevated glucose Expected: 01/23/2024 (Approximate), Expires: 04/23/2024 [facility] Comment on above: Expected: 01/23/2024 (Approximate), Expi res: 04/23/2024 Start: 01-23-2024 End: 04-23-2024 Hemoglobin A1c in Blood HEMOGLOBIN A1C Lab Routine BENIGN HYPERTENSION Elevated glucose Expected: 01/23/2024 (Approximate), Expires: 04/23/2024 [facility] Comment on above: Expected: 01/23/2024 (Approximate), Expi res: 04/23/2024 Start: 01-23-2024 End: 04-23-2024 Lipid 1996 panel - Serum or Plasma LIPID PANEL BASIC Lab Routine BENIGN HYPERTENSION Mixed hyperlipidemia Expected: 01/23/2024 (Approximate), Expires: 04/23/2024 [facility] Work Phone: Comment on above: Expected: 01/23/2024 (Approximate), Expi res: 04/23/2024 Start: 01-23-2024 End: 01-23-2024 [facility] Comment on above: CBC/FERRITIN/IRON STUDIES* (SO)CBC/FERRITIN/IRO N STUDIES* Start: 01-20-2024 End: 01-20-2024 Patient encounter procedure 01/20/2024 9:00 AM EDT Office Visit Family Medicine [place] [address] [place] [address] Federico Vigil MD [address] [place] [address] 6 month follow up Family Medicine [place] Comment on above: 6 month follow up Start: 01-18-2024 ANNUAL PCP TEAM CHRONIC DISEASE VISIT ANNUAL PCP TEAM CHRONIC DISEASE VISIT [facility] Start: 01-18-2024 BP CONTROLLED (<130/80) BP CONTROLLED (<130/80) [facility] Start: 01-04-2024 End: 01-04-2024 Patient encounter procedure [facility] [place] Comment on above: Return in about 6 months (around ) for Afib follow up with Dr. Walker 6 month follow up *EKG/eo Start: 12-26-2023 End: 12-26-2023 Admission to [facility] Comment on above: ENDARTERECTOMY CAROTID ADULT Start: 12-26-2023 Subsequent hospital visit by physician [facility] Comment on above: Bilateral extracranial carotid artery st enosis [I65.23] Start: 12-26-2023 End: 12-26-2023 Teaec w/patch grf carotid vertb subclav neck inc [place] [facility] Start: 12-20-2023 End: 12-20-2023 ambulatory 12/20/2023 10:40 AM EDT PAT Pre Surgical Testing [address] [place] [address] ENDARTERECTOMY CAROTID ADULT Pre Surgical Testing Comment on above: ENDARTERECTOMY CAROTID ADULT Start: 12-09-2023 End: 12-08-2024 Basic metabolic 2000 panel - Serum or Plasma BASIC METABOLIC PANEL Lab Routine Bilateral extracranial carotid artery stenosis Expected: 12/09/2023, Expires: 12/08/2024 [facility] Comment on above: Expected: 12/09/2023, Expires: 5 Start: 12-09-2023 End: 12-08-2024 CBC panel - Blood by Automated count COMPLETE BLOOD COUNT Lab Routine Bilateral extracranial carotid artery stenosis Expected: 12/09/2023, Expires: 12/08/2024 [facility] Comment on above: Expected: 12/09/2023, Expires: 5 Start: 12-09-2023 End: 12-08-2024 PT panel - Platelet poor plasma by Coagulation assay PROTHROMBIN TIME Lab Routine Bilateral extracranial carotid artery stenosis Expected: 12/09/2023, Expires: 12/08/2024 [facility] Comment on above: Expected: 12/09/2023, Expires: 5 Start: 12-09-2023 End: 03-09-2024 TYPE AND SCREEN,30 DAY TYPE AND SCREEN,30 DAY Blood Bank Routine Bilateral extracranial carotid artery stenosis Expected: 12/09/2023, Expires: 03/09/2024 [facility] Comment on above: Expected: 12/09/2023, Expires: 4 Start: 12-08-2023 End: 12-08-2023 Patient encounter procedure 12/08/2023 3:30 PM EDT Office Visit [facility] [address] [place] [address] Phi Caba MD [address] [facility] [address] [place], [place] [id number] 2 -3 Week F/up - Bilateral Extracranial Carotid Artery Stenosis. Repeat CTA NECK/CAROTID US on *11/24/23 & 11/28/23* [facility] Comment on above: 2 -3 Week F/up - Bilateral Extracranial Carotid Artery Stenosis. Repeat CTA NECK/CAROTID US on *11/24/23 & 11/28/23* Start: 11-30-2023 BP CONTROLLED (<130/80) BP CONTROLLED (<130/80) [facility] Start: 11-28-2023 End: 11-28-2023 Patient encounter procedure 11/28/2023 8:00 AM EDT Office Visit Vascular Surgery [address] [address] Vision changes [H53.9] [facility] Comment on above: Vision changes [H53.9] Start: 11-17-2023 End: 11-17-2023 Patient encounter procedure 11/17/2023 4:00 PM EDT Office Visit [facility] [address] [place], [place] [phone] Phi Caba MD [address] [phone] f/up - Amarousis; carotid stenosis [facility] Comment on above: f/up - Amarousis; carotid stenosis Start: 11-17-2023 End: 02-16-2024 Basic metabolic 2000 panel - Serum or Plasma BASIC METABOLIC PANEL Lab Routine Bilateral extracranial carotid artery stenosis Amaurosis fugax Occlusion and stenosis of unspecified carotid artery Expected: 11/17/2023, Expires: 02/16/2024 [facility] Comment on above: Expected: 11/17/2023, Expires: Start: 11-14-2023 End: 11-14-2023 Patient encounter procedure 11/14/2023 1:00 PM EDT Appointment [facility] [address] [place] [phone] Vision changes [H53.9]; Amaurosis fugax [G45.3] [facility] Comment on above: Vision changes [H53.9]; Amaurosis fugax [G45.3] Start: 11-11-2023 End: 02-10-2024 CREATININE BLD CREATININE BLD Lab STAT Carotid stenosis, asymptomatic, bilateral Amaurosis fugax of right eye Expected: 11/11/2023, Expires: 02/10/2024 [facility] Work Phone: Comment on above: Expected: 11/11/2023, Expires: Start: 10-28-2023 ANNUAL PCP TEAM CHRONIC DISEASE VISIT ANNUAL PCP TEAM CHRONIC DISEASE VISIT [facility] Start: 10-27-2023 End: 01-26-2024 DUPL / OVERRIDE LAB ORDER DUPL / OVERRIDE LAB ORDER Lab Routine Iron deficiency anemia, unspecified iron deficiency anemia type Anemia, unspecified type Expected: 10/27/2023, Expires: 01/26/2024 [facility] Work Phone: Comment on above: Expected: 10/27/2023, Expires: Start: 10-25-2023 End: 01-24-2024 CBC W Auto Differential panel - Blood CBC + DIFF Lab STAT Anemia, unspecified type Iron deficiency anemia, unspecified iron deficiency anemia type Expected: 10/25/2023, Expires: 01/24/2024 [facility] Work Phone: Comment on above: Expected: 10/25/2023, Expires: 4 Start: 10-25-2023 End: 01-24-2024 Ferritin [Mass/volume] in Serum or Plasma FERRITIN BLD Lab Routine Anemia, unspecified type Iron deficiency anemia, unspecified iron deficiency anemia type Expected: 10/25/2023, Expires: 01/24/2024 [facility] Work Phone: Comment on above: Expected: 10/25/2023, Expires: Start: 10-25-2023 End: 01-24-2024 Iron and Iron binding capacity panel - Serum or Plasma IRON + TIBC Lab Routine Anemia, unspecified type Iron deficiency anemia, unspecified iron deficiency anemia type Expected: 10/25/2023, Expires: 01/24/2024 [facility] Work Phone: Comment on above: Expected: 10/25/2023, Expires: Start: 09-28-2023 BP CONTROLLED (<130/80) BP CONTROLLED (<130/80) [facility] Start: 08-30-2023 ANNUAL PCP TEAM CHRONIC DISEASE VISIT ANNUAL PCP TEAM CHRONIC DISEASE VISIT [facility] Start: 08-30-2023 BP CONTROLLED (<130/80) BP CONTROLLED (<130/80) [facility] Start: 08-22-2023 End: 11-21-2023 PROTEIN ELECTROPHORESIS SERUM W/INTERP [facility] Work Phone: Comment on above: Expected: 08/22/2023, Expires: Start: 08-05-2023 ANNUAL PCP TEAM CHRONIC DISEASE VISIT ANNUAL PCP TEAM CHRONIC DISEASE VISIT [facility] Start: 08-05-2023 BP CONTROLLED (<130/80) BP CONTROLLED (<130/80) [facility] Start: 07-31-2023 [facility] Start: 07-29-2023 ANNUAL PCP TEAM CHRONIC DISEASE VISIT ANNUAL PCP TEAM CHRONIC DISEASE VISIT [facility] Start: 07-21-2023 ANNUAL PCP TEAM CHRONIC DISEASE VISIT ANNUAL PCP TEAM CHRONIC DISEASE VISIT [facility] Start: 07-18-2023 Advance Directive Discussion Advance Directive Discussion [facility] Start: 07-18-2023 Behavioral Health Screening Behavioral Health Screening [facility] Start: 07-15-2023 Patient referral [facility] Work Phone: Start: 05-11-2023 [facility] Start: 05-09-2023 End: 08-08-2023 CREATININE BLD CREATININE BLD Lab Routine Dizziness Tinnitus, unspecified laterality Expected: 05/09/2023, Expires: 08/08/2023 [facility] Work Phone: Comment on above: Expected: 05/09/2023, Expires: Start: 04-28-2023 ANNUAL PCP TEAM CHRONIC DISEASE VISIT ANNUAL PCP TEAM CHRONIC DISEASE VISIT [facility] Start: 03-22-2023 End: 01-29-2024 Ct angiography chest w/contrast/noncontrast CTA CHEST (NONGATED) W IVCON Radiology Routine Persistent atrial fibrillation (HCC) Dyspnea, unspecified type Expected: 03/22/2023, Expires: 01/29/2024 [facility] Work Phone: Comment on above: Expected: 03/22/2023, Expires: 4 Start: 03-22-2023 End: 12-31-2023 Echocardiography ECHO Cardiology Routine Persistent atrial fibrillation (HCC) Dyspnea, unspecified type Expected: 03/22/2023, Expires: 12/31/2023 [facility] Work Phone: Comment on above: Expected: 03/22/2023, Expires: 4 Start: 03-18-2023 Covid-19 Vaccine () Covid-19 Vaccine () [facility] Start: 03-18-2023 Influenza vaccination [facility] Start: 01-15-2023 ANNUAL PCP TEAM CHRONIC DISEASE VISIT ANNUAL PCP TEAM CHRONIC DISEASE VISIT [facility] Start: 10-27-2022 End: 12-27-2022 Comprehensive metabolic 2000 panel - Serum or Plasma COMP METABOLIC PANEL Lab Routine BENIGN HYPERTENSION Expected: 10/27/2022, Expires: 12/27/2022 [facility] Work Phone: Comment on above: Expected: 10/27/2022, Expires: 3 Start: 10-27-2022 End: 12-27-2022 Lipid 1996 panel - Serum or Plasma LIPID PANEL BASIC Lab Routine Mixed hyperlipidemia Expected: 10/27/2022, Expires: 12/27/2022 [facility] Work Phone: Comment on above: Expected: 10/27/2022, Expires: 3 Start: 10-27-2022 End: 12-27-2022 Magnesium [Mass/volume] in Serum or Plasma MAGNESIUM BLD Lab Routine Gastroesophageal reflux disease, unspecified whether esophagitis present Expected: 10/27/2022, Expires: 12/27/2022 [facility] Work Phone: Comment on above: Expected: 10/27/2022, Expires: 3 Start: 10-25-2022 End: 12-25-2022 C reactive protein [Mass/volume] in Serum or Plasma [facility] Work Phone: Comment on above: Expected: 10/25/2022, Expires: Start: 10-11-2022 End: 12-11-2022 C reactive protein [Mass/volume] in Serum or Plasma [facility] Work Phone: Comment on above: Expected: 10/11/2022, Expires: 3 Start: 10-11-2022 End: 12-11-[address] [facility] Work Phone: Comment on above: Expected: 10/11/2022, Expires: Start: 10-07-2022 Patient referral [facility] Work Phone: Start: 10-07-2022 Patient discharge [facility] Start: 10-06-2022 Following clinical pathway protocol [facility] Start: 10-06-2022 Adult depression screening assessment DEPRESSION SCREENING [facility] Start: 10-06-2022 ANNUAL PCP TEAM CHRONIC DISEASE VISIT ANNUAL PCP TEAM CHRONIC DISEASE VISIT [facility] Start: 10-06-2022 Hepatitis B surface antibody level LDL Cholesterol [facility] Start: 10-06-2022 Admission procedure [facility] Start: 10-06-2022 Pulse taking [facility] Start: 10-06-2022 End: 10-06-2022 [facility] Start: 10-06-2022 Cardiac monitoring [facility] Start: 10-06-2022 Cardiac rehabilitation - phase 1 [facility] Start: 10-06-2022 Cardiac rehabilitation - phase 2 [facility] Start: 10-06-2022 Notification of physician [facility] Start: 10-06-2022 Oxygen therapy [facility] Start: 10-06-2022 Patient discharge [facility] Start: 10-06-2022 Taking patient vital signs [facility] Start: 10-06-2022 Vascular disease risk assessment [facility] Start: 10-06-2022 Vital signs measurements [facility] Start: 10-06-2022 [facility] Start: 09-29-2022 COVID-19 VACCINE (6 - Moderna series) COVID-19 VACCINE (6 - Moderna series) [facility] Start: 09-13-2022 End: 11-13-2022 Comprehensive metabolic 2000 panel - Serum or Plasma COMP METABOLIC PANEL Lab Routine Gout involving toe of right foot, unspecified cause, unspecified chronicity Expected: 09/13/2022, Expires: 11/13/2022 [facility] Work Phone: Comment on above: Expected: 09/13/2022, Expires: 3 Start: 09-13-2022 End: 11-13-2022 Urate [Mass/volume] in Serum or Plasma URIC ACID BLOOD Lab Routine Gout involving toe of right foot, unspecified cause, unspecified chronicity Expected: 09/13/2022, Expires: 11/13/2022 [facility] Work Phone: Comment on above: Expected: 09/13/2022, Expires: 3 Start: 08-05-2022 End: 10-05-2022 Urate [Mass/volume] in Serum or Plasma URIC ACID BLOOD Lab Routine History of gout Expected: 08/05/2022, Expires: 10/05/2022 [facility] Work Phone: Comment on above: Expected: 08/05/2022, Expires: 3 Start: 08-01-2022 End: 10-01-2022 CBC W Auto Differential panel - Blood CBC + DIFF Lab Routine Toe swelling Expected: 08/01/2022, Expires: 10/01/2022 [facility] Work Phone: Comment on above: Expected: 08/01/2022, Expires: 3 Start: 08-01-2022 End: 10-01-2022 Comprehensive metabolic 2000 panel - Serum or Plasma COMP METABOLIC PANEL Lab Routine Toe swelling Expected: 08/01/2022, Expires: 10/01/2022 [facility] Work Phone: Comment on above: Expected: 08/01/2022, Expires: 3 Start: 07-18-2022 ADVANCE DIRECTIVE DISCUSSION ADVANCE DIRECTIVE DISCUSSION [facility] Start: 07-18-2022 DEPRESSION ASSESSMENT DEPRESSION ASSESSMENT [facility] Start: 07-04-2022 US.doppler Lower extremity vein [facility] Work Phone: Start: 03-18-2022 Influenza vaccination INFLUENZA (#1) [facility] Start: 02-04-2022 COVID-19 VACCINE (5 - Booster for Moderna series) COVID-19 VACCINE (5 - Booster for Moderna series) [facility] Start: 01-15-2022 End: 03-17-2022 Comprehensive metabolic 2000 panel - Serum or Plasma [facility] Work Phone: Comment on above: Expected: 01/15/2022, Expires: 2 Start: 01-15-2022 End: 03-17-2022 Creatine kinase [Enzymatic activity/volume] in Serum or Plasma [facility] Work Phone: Comment on above: Expected: 01/15/2022, Expires: 2 Start: 01-15-2022 End: 03-17-2022 Magnesium [Mass/volume] in Serum or Plasma [facility] Work Phone: Comment on above: Expected: 01/15/2022, Expires: 2 Start: 09-18-2021 COVID-19 VACCINE (4 - Booster for Moderna series) COVID-19 VACCINE (4 - Booster for Moderna series) [facility] Start: 07-18-2021 DEPRESSION ASSESSMENT DEPRESSION ASSESSMENT [facility] Start: 10-05-2016 Urine microalbumin profile [facility] Start: 2005 RSV Vaccine (1 - 1-dose 60+ series) RSV Vaccine (1 - 1-dose 60+ series) [facility] Start: 1995 SHINGRIX VACCINE (1 of 2) SHINGRIX VACCINE (1 of 2) [facility] Start: 1963 BP CONTROLLED (<130/80) BP CONTROLLED (<130/80) [facility] inic Basic metabolic 2008 panel with ionized calcium - Serum or Plasma [facility] C reactive protein [Mass/volume] in Serum or Plasma [facility] End: 10-26-2024 CBC W Auto Differential panel - Blood COMPLETE BLOOD COUNT AND DIFFERENTIAL Lab STAT Iron deficiency anemia, unspecified iron deficiency anemia type Every 3 months for 4 Occurrences starting 10/27/2023 until 10/26/2024 [facility] Work Phone: Comment on above: Every 3 months for 4 Occurrences startin g 10/27/2023 until 10/26/2024 COVID & INFLUENZA A/ B & RSV PCR, ROUTINE COVID & INFLUENZA A/B & RSV PCR, ROUTINE Microbiology Routine URI, acute Ordered: 09/03/2024 [facility] Work Phone: Comment on above: Ordered: 09/03/2024 Ct angiography chest w/contrast/noncontrast CTA CHEST (NONGATED) W IVCON Radiology Routine Persistent atrial fibrillation (HCC) Dyspnea, unspecified type 03/29/2023 8:[address] [facility] Work Phone: End: 06-07-2024 CTA HEAD WO/W IVCON CTA HEAD WO/W IVCON Radiology Routine Dizziness Tinnitus, unspecified laterality 1 Occurrences starting 05/09/2023 until 06/07/2024 [facility] Work Phone: Comment on above: 1 Occurrences starting 05/09/2023 until 06/07/2024 End: 06-07-2024 CTA NECK W IVCON CTA NECK W IVCON Radiology Routine Dizziness Tinnitus, unspecified laterality 1 Occurrences starting 05/09/2023 until 06/07/2024 [facility] Work Phone: Comment on above: 1 Occurrences starting 05/09/2023 until 06/07/2024 Cyclic citrullinated peptide IgG Ab [Units/volume] in Serum or Plasma [facility] ECG B/O W INTERP (ME D OFFICE) ECG B/O W INTERP (MED OFFICE) ECG Routine Atrial fibrillation, unspecified type (HCC) Ordered: 11/29/2022 [facility] Work Phone: Comment on above: Ordered: 11/29/2022 ECG B/O W INTERP (ME D OFFICE) ECG B/O W INTERP (MED OFFICE) ECG Routine Paroxysmal atrial fibrillation (HCC) Ordered: 06/22/2023 [facility] Work Phone: Comment on above: Ordered: 06/22/2023 End: 12-08-2024 ECG COMPLETE ECG COMPLETE ECG Routine Bilateral extracranial carotid artery stenosis 1 Occurrences starting 12/09/2023 until 12/08/2024 [facility] Comment on above: 1 Occurrences starting 12/09/2023 until 12/08/2024 Erythrocyte mean corpuscular volume determination [facility] Erythrocyte sediment ation rate [facility] EVENT MONITOR EVENT MONITOR Ca rdiology Routine Persistent atrial fibrillation (HCC) Dyspnea, unspecified type Ordered: 12/30/2022 [facility] Work Phone: Comment on above: Ordered: 12/30/2022 End: 10-26-2024 Ferritin [Mass/volume] in Serum or Plasma FERRITIN Lab Routine Iron deficiency anemia, unspecified iron deficiency anemia type Anemia, unspecified type Every 3 months for 4 Occurrences starting 10/27/2023 until 10/26/2024 [facility] Work Phone: Comment on above: Every 3 months for 4 Occurrences startin g 10/27/2023 until 10/26/2024 H&P for surgery H&P FOR SURGERY Procedures Routine Bilateral extracranial carotid artery stenosis Ordered: 12/09/2023 [facility] Work Phone: Comment on above: Ordered: 12/09/2023 Hematocrit [Volume Fraction] of Blood [facility] Hemoglobin [Mass/vol ume] in Blood [facility] HLA-B27 [Presence] b y KVNG with probe detection [facility] Influenza virus A an d B RNA and SARS-CoV-2 (COVID-19) N gene panel - Respiratory specimen by KVNG with probe detection COVID WITH FLUA+B, ROUTINE Microbiology Routine Suspected COVID-19 virus infection Ordered: 04/15/2022 [facility] Work Phone: Comment on above: Ordered: 04/15/2022 End: 10-26-2024 Iron and Iron binding capacity panel - Serum or Plasma IRON AND TIBC Lab Routine Iron deficiency anemia, unspecified iron deficiency anemia type Every 3 months for 4 Occurrences starting 10/27/2023 until 10/26/2024 [facility] Work Phone: Comment on above: Every 3 months for 4 Occurrences startin g 10/27/2023 until 10/26/2024 Leukocytes [#/volume ] in Blood [facility] Mean corpuscular hemoglobin concentration determination [facility] Mean corpuscular hemoglobin determination [facility] Neutrophil count [facility] Neutrophil percent differential count [facility] NM CARDIAC PERF STRESS/PHARM NM CARDIAC PERF STRESS/PHARM Radiology Routine Atrial fibrillation, unspecified type (HCC) Shortness of breath Ordered: 09/06/2022 [facility] Work Phone: Comment on above: Ordered: 09/06/2022 Patient Education [facility] Work Phone: Patient referral [facility] Work Phone: Platelets [#/volume] in Blood [facility] Prothrombin time [facility] Red blood cell count [facility] Red cell distributio n width determination [facility] US Carotid arteries [facility] End: 11-09-2024 US Carotid arteries - bilateral US CAROTID ARTERIES [facility] Vascular Lab Routine Vision changes Amaurosis fugax 1 Occurrences starting 11/10/2023 until 11/09/2024 [facility] Work Phone: Comment on above: 1 Occurrences starting 11/10/2023 until 11/09/2024 End: 12-16-2024 US Carotid arteries - bilateral US CAROTID BILATERAL Radiology Routine Bilateral extracranial carotid artery stenosis Amaurosis fugax Occlusion and stenosis of unspecified carotid artery 1 Occurrences starting 11/17/2023 until 12/16/2024 [facility] Work Phone: Comment on above: 1 Occurrences starting 11/17/2023 until 12/16/2024 End: 02-22-2025 US Carotid arteries - bilateral US CAROTID ARTERIES [facility] Vascular Lab Routine S/P carotid endarterectomy Carotid stenosis, asymptomatic, bilateral 1 Occurrences starting 02/23/2024 until 02/22/2025 [facility] Work Phone: Comment on above: 1 Occurrences starting 02/23/2024 until 02/22/2025 US Heart [facility] End: 08-20-2023 Us soft tissue head & neck real time imge docm US THYROID/PARATHYROID Radiology Routine Enlarged thyroid 1 Occurrences starting 07/21/2022 until 08/20/2023 [facility] Work Phone: Comment on above: 1 Occurrences starting 07/21/2022 until 08/20/2023 End: 05-16-2023 XR FOOT GENERAL 3V AP/LAT/OBL LEFT XR FOOT GENERAL 3V AP/LAT/OBL LEFT Radiology Routine Pain in left foot 1 Occurrences starting 04/16/2022 until 05/16/2023 [facility] Work Phone: Comment on above: 1 Occurrences starting 04/16/2022 until 05/16/2023 End: 04-20-2022 XR FOOT GENERAL 3V AP/LAT/OBL LEFT [facility] Work Phone: Comment on above: 1 Occurrences starting 04/20/2022 until 04/20/2022 End: 11-10-2023 XR FOOT GENERAL 3V AP/LAT/OBL LEFT XR FOOT GENERAL 3V AP/LAT/OBL LEFT Radiology Routine Acute gout involving toe of left foot, unspecified cause Pain in left foot 1 Occurrences starting 10/11/2022 until 11/10/2023 [facility] Work Phone: Comment on above: 1 Occurrences starting 10/11/2022 until 11/10/2023 XR FOOT GENERAL 3V AP/LAT/OBL LEFT XR FOOT GENERAL 3V AP/LAT/OBL LEFT Radiology Routine Acute gout involving toe of left foot, unspecified cause Pain in left foot 10/11/2022 2:[address] [facility] Work Phone: End: 12-16-2022 XR FOOT GENERAL 3V AP/LAT/OBL RIGHT XR FOOT GENERAL 3V AP/LAT/OBL RIGHT Radiology Routine Pain 1 Occurrences starting 11/16/2021 until 12/16/2022 [facility] Work Phone: Comment on above: 1 Occurrences starting 11/16/2021 until 12/16/2022 End: 08-31-2023 XR FOOT GENERAL 3V AP/LAT/OBL RIGHT XR FOOT GENERAL 3V AP/LAT/OBL RIGHT Radiology STAT Toe swelling 1 Occurrences starting 08/01/2022 until 08/31/2023 [facility] Work Phone: Comment on above: 1 Occurrences starting 08/01/2022 until 08/31/2023 End: 03-28-2025 XR Lumbar spine 3 Views XR LUMBAR GENERAL 3V AP/LAT/L5-S1 Radiology Routine Acute right-sided low back pain without sciatica 1 Occurrences starting 02/27/2024 until 03/28/2025 [facility] Work Phone: Comment on above: 1 Occurrences starting 02/27/2024 until 03/28/2025 XR Lumbar spine 3 Views XR LUMBA R GENERAL 3V AP/LAT/L5-S1 Radiology Routine Acute right-sided low back pain without sciatica 02/28/2024 3:[address] [facility] Work Phone: [facility] Work Phone: [facility] Immunizations Immunization Date Immunization Notes Care Provider [facility] 05-02-2024 influenza, high dose seasonal, preservative-free Immunization [place] Work Phone: [facility] 04-19-2024 Covid (Spikevax) Dr. Federico willis MD Work Phone: [facility] 04-22-2023 influenza (HD-IIV4) vaccine, age 65+ yr, high dose, quadrivalent, PF (FLUZONE HIGH-DOSE) Immunization [place] Work Phone: [facility] Work Phone: 04-22-2023 influenza virus vaccine, unspecified formulation Federico Vigil MD Work Phone: [facility] 04-28-2022 influenza, high-dose , quadrivalent vaccine (FLUZONE HIGH DOSE QUADRIVALENT) Ruth Perez CUSTOMER SALES CONSULTANT.GANG HEMSTITCHING MACHINE OPERATOR Work Phone: [facility] Work Phone: 04-28-2022 influenza virus vaccine, unspecified formulation Malathi Sam CUSTOMER SALES CONSULTANT.GANG HEMSTITCHING MACHINE OPERATOR Work Phone: [facility] 04-08-2021 influenza, high-dose , quadrivalent vaccine (FLUZONE HIGH DOSE QUADRIVALENT) Karma Alberto CUSTOMER SALES CONSULTANT.GANG HEMSTITCHING MACHINE OPERATOR Work Phone: [facility] 09-22-2020 COVID-19 vaccine, fu ll dose (MODERNA) Karma Alberto CUSTOMER SALES CONSULTANT.GANG HEMSTITCHING MACHINE OPERATOR Work Phone: [facility] 08-25-2020 COVID-19 vaccine, fu ll dose (MODERNA) Karma Alberto CUSTOMER SALES CONSULTANT.GANG HEMSTITCHING MACHINE OPERATOR Work Phone: [facility] 04-19-2020 influenza, high-dose , quadrivalent vaccine (FLUZONE HIGH DOSE QUADRIVALENT) Karma Alberto CUSTOMER SALES CONSULTANT.GANG HEMSTITCHING MACHINE OPERATOR Work Phone: [facility] 05-01-2019 influenza, high dose seasonal, preservative-free Karma Alberto CUSTOMER SALES CONSULTANT.GANG HEMSTITCHING MACHINE OPERATOR Work Phone: [facility] 05-01-2018 influenza, high dose seasonal, preservative-free Karma Alberto CUSTOMER SALES CONSULTANT.GANG HEMSTITCHING MACHINE OPERATOR Work Phone: [facility] 04-27-2017 influenza, high dose seasonal, preservative-free Karma Alberto CUSTOMER SALES CONSULTANT.GANG HEMSTITCHING MACHINE OPERATOR Work Phone: [facility] 07-08-2016 pneumococcal polysaccharide vaccine, 23 valent Karma Alberto CUSTOMER SALES CONSULTANT.GANG HEMSTITCHING MACHINE OPERATOR Work Phone: [facility] 05-21-2016 influenza, high dose seasonal, preservative-free Karma Alberto CUSTOMER SALES CONSULTANT.GANG HEMSTITCHING MACHINE OPERATOR Work Phone: [facility] Work Phone: 06-02-2015 influenza, high dose seasonal, preservative-free Karma Alberto CUSTOMER SALES CONSULTANT.GANG HEMSTITCHING MACHINE OPERATOR Work Phone: [facility] 03-26-2015 pneumococcal conjuga te vaccine, 13 valent Karma Alberto CUSTOMER SALES CONSULTANT.GANG HEMSTITCHING MACHINE OPERATOR Work Phone: [facility] Work Phone: 07-01-2008 influenza virus vaccine, unspecified formulation Karma Alberto CUSTOMER SALES CONSULTANT.GANG HEMSTITCHING MACHINE OPERATOR Work Phone: [facility] 06-05-2007 influenza virus vaccine, unspecified formulation Karma Alberto CUSTOMER SALES CONSULTANT.GANG HEMSTITCHING MACHINE OPERATOR Work Phone: [facility] Work Phone: 10-05-2006 tetanus toxoid, reduced diphtheria toxoid, and acellular pertussis vaccine, adsorbed Karma Alberto CUSTOMER SALES CONSULTANT.GANG HEMSTITCHING MACHINE OPERATOR Work Phone: [facility] Work Phone: 05-05-2005 influenza virus vaccine, whole virus Karma Alberto CUSTOMER SALES CONSULTANT.GANG HEMSTITCHING MACHINE OPERATOR Work Phone: [facility] Work Phone: No information available. Tita Angulo [facility] Work Phone: Payers Date Payer Category Payer Self-pay [id number] 2021 Medicare AETNA MEDICARE A ETNA MEDICARE PPO [id number] 2021-Present [phone] [address] [place] [address] PPO [id number] 2021 Medicare (Managed Care) AETNA ME DICARE [id number] 2021 Private Health Insurance [facility] [id number] 2019 Medicare [id number] 2014 Unknown [id number] 1945 Unknown [id number] 2.16.840.1.895658.3.579.2. 594 Unknown [id number] 2.16.840.1.145613.3.579.2. 462 Unknown [id number] 2.16.840.1.213244.3.579.2. 462 Unknown [id number] 2.16.840.1.442104.3.579.2. 462 Unknown [id number] 2.16.840.1.699235.3.579.2. 462 Unknown [id number] 2.16.840.1.064296.3.579.2. 462 Unknown [id number] 2.16840.1.473534.3.579.2. 462 Unknown [id number] 2.16.840.1.531817.3.579.2. 462 Unknown [id number] 2.16.840.1.615026.3.579.2. 462 Unknown [id number] 2.16.840.1.572901.3.579.2. 462 Unknown [id number] 2.16.840.1.452046.3.579.2. 462 Unknown [id number] 2.16.840.1.913746.3.579.2. 462 Unknown [id number] 2.16.840.1.107564.3.579.2. 462 Unknown [id number] 2.16.840.1.558673.3.579.2. 462 Unknown [id number] 2.16.840.1.557198.3.579.2. 462 Unknown [id number] 2.16.840.1.566592.3.579.2. 462 Unknown [id number] 2.16.840.1.009461.3.579.2. 462 Unknown [id number] 2.840.1.259257.3.579.2. 462 Unknown [id number] 2.840.1.163897.3.579.2. 462 Unknown [id number] 2.840.1.666723.3.579.2. 462 Unknown [id number] 2.840.1.697898.3.579.2. 462 Unknown [id number] 2.840.1.197939.3.579.2. 462 Unknown [id number] 2.840.1.524345.3.579.2. 462 Unknown [id number] 2.840.1.609878.3.579.2. 462 Unknown [id number] 2.840.1.615432.3.579.2. 462 Unknown [id number] 2.840.1.706459.3.579.2. 462 Unknown [id number] 2.840.1.301659.3.579.2. 462 Unknown [id number] 2..840.1.911244.3.579.2. 462 Unknown [id number] 2.16.840.1.419568.3.579.2. 462 Unknown [id number] 2.16.840.1.367107.3.579.2. 462 Unknown [id number] 2.840.1.430984.3.579.2. 462 Unknown [id number] 2.16.840.1.479692.3.579.2. 462 Unknown [id number] 2.16.840.1.061784.3.579.2. 462 Unknown [id number] 2.16.840.1.833508.3.579.2. 462 Unknown [id number] 2.16.840.1.807282.3.579.2. 462 Unknown [id number] 2.16.840.1.900024.3.579.2. 462 Unknown [id number] 2.16.840.1.212954.3.579.2. 462 Social History Date Type Detail Facility Start: 07-03-2022 End: 10-25-2023 Assertion Unknown if ever smoked [facility] Work Phone: Start: 02-22-2011 End: 06-27-2024 Tobacco smoking status NHIS Ex-smoker [facility] Start: 07-18-1961 End: 07-18-1971 History of tobacco use Current smoker [facility] Start: 07-18-1961 End: 07-18-1971 History of tobacco use Cigarette Smoker [facility] Start: 10-06-2021 End: 08-29-2024 Alcohol intake Current drinker of alcohol (finding) [facility] Start: 10-06-2021 End: 11-29-2022 Alcohol intake [facility] Work Phone: Start: 1945 Sex Assigned At Not on file [facility] Start: 06-29-2020 End: 04-20-2022 Exposure to SARS-CoV-2 (event) Not sure [facility] Start: 02-22-2011 End: 03-29-2024 Tobacco use and exposure Smokeless tobacco non-user [facility] Start: 1945 Sex Assigned At Male [facility] Start: 11-29-2022 Alcohol Comment daily beer [facility] Start: 11-29-2022 End: 01-17-2023 Tobacco use panel [facility] Work Phone: Adult Depression Screening Assessment 0 [facility] Work Phone: Start: 03-29-2023 Alcohol Comment weekends beer [facility] Start: 05-18-2023 End: 09-02-2023 Alcohol intake Ex-drinker (finding) [facility] Start: 05-18-2023 Alcohol Comment [facility] Start: 12-20-2023 Alcohol Comment occasional, 2 beers a week [facility] How often to you hav e a drink containing alcohol? 2-4 times a month [facility] How many standard drinks containing alcohol do you have on a typical day? 1 or 2 [facility] How often do you hav e 6 or more drinks on 1 occasion? Never [facility] Medical Equipment Procedure Code Equipment Code Equipment Origin al Text Equipment Identifier Dates Surgical procedure on lumbar spine including any or all of laminectomy, discectomy, a Gelatin haemostatic agent [id number] FDA Start: 06-20-2024 Assemb Tapr Ball Adj Nk - [id number] Start: 07-23-2010 Comment on above: Description: left Head Hum 18mm 52 mm Ecc Glob Ap - [id number] Start: 07-23-2010 Comment on above: Description: right Stem Hum 10mm Gl ob Ap - [id number] Start: 07-23-2010 Comment on above: Description: right Drug-eluting coronary artery stent, vat-clpejorhtliye-yr lymer-coated [id number] ([id number] FDA Start: 10-06-2022 Drug-eluting coronary artery stent, [id number] lymer-coated [id number] ([id number] FDA Start: 10-06-2022 Femoral vessel suture implantation set [id number] FDA Start: 10-06-2022 Patch Xenosure Bovine Pericardial Tissue 8x.8cm Vascular Sterile - [id number] Start: 12-26-2023 Patch Xenosure Bovine Pericardial Tissue 8x.8cm Vascular Sterile - [id number] Start: 12-26-2023 Goals Date Patient Goal Desired Activity /State Personal health goal Functional Status Date Assessment Result Facility 10-12-2024 Total score [AUDIT-C] 2 10/13/19 11:08 AM EDT User, Fraciscot [facility] 10-12-2024 How often to you hav e a drink containing alcohol? 2-4 times a month 10/12/2024 11:08 AM EDT User, Santinohart 2-4 times a month [facility] 10-12-[address] inks containing alcohol do you have on a typical day? 1 or 2 10/12/2024 11:08 AM EDT User, Mychart 1 or 2 [facility] 10-12-2024 How often do you hav e 6 or more drinks on 1 occasion? Never 10/12/2024 11:08 AM EDT User, Santinohart Never [facility] 12-27-2023 Are you deaf, or do you have serious difficulty hearing No 12/27/2023 11:51 AM Mari Salomon RN No [facility] 12-27-2023 Are you blind, or do you have serious difficulty seeing, even when wearing glasses No 12/27/2023 11:51 AM Mari Salomon RN No [facility] 12-27-2023 Do you have serious difficulty walking or climbing stairs No 12/27/2023 11:51 AM Mari Salomon RN [facility] 12-27-2023 Do you have difficul ty dressing or bathing No 12/27/2023 11:51 AM Mari Salomon RN No [facility] 12-27-2023 Because of a physica l, mental, or emotional condition, do you have difficulty doing errands alone such as visiting a physician's office or shopping No 12/27/2023 11:51 AM Mari Salomon RN No [facility] 10-07-2022 Functional status Ambulates [facility] Work Phone: Mental Status Date Assessment Result Facility 12-27-2023 Because of a physica l, mental, or emotional condition, do you have serious difficulty concentrating, remembering, or making decisions No 12/27/2023 11:51 AM Mari Salomon RN No [facility] 07-31-2023 Cognitive function Voice/Name [facility] Work Phone: 10-07-2022 Cognitive function Voice/Name [facility] Work Phone: Clinical Notes 10-09-2007 to 12-11-2024 Note Date & Type Note Facility 12-11-2024 Progress note [facility] 12-11-2024 Progress note Note Date/Time December 11, 2024 2:31pm [facility] [address] [place] [address] OFFICE VISIT Date of Service: 12/11/24 MR#: [id number] Acct: [id number] Name: SHELTON FOX Rep #: [id number] 1945 Provider: Dr. Zack Vernon MD Age/Sex: 79/M [place] [facility] Status: Signed HPI HPI History of Present Illness Details: This gentleman with history of previous tachycardia mediated cardiomyopathy is here for follow-up visit. He also has history of atrial fibrillation status post ablation, coronary artery disease, hypertension and dyslipidemia. His recent echocardiogram shows drop in EF from 50 to 35%. Moderate mitral valve regurgitation with moderate tricuspid valve regurgitation was also reported. Clinically patient denies any chest pains or shortness of breath. Denies any orthopnea or PND. No ankle edema. No palpitations. No lightheadedness or dizziness. 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 Accompanied by: [facility] Allergies indomethacin (From Indocin) Allergy (Verified 12/11/24 14:01) Bleeding meloxicam (From Mobic) Adverse Reaction (Intermediate, Verified 12/11/24 14:01) Diarrhea spironolactone Adverse Reaction (Intermediate, Verified 12/11/24 14:01) Dizziness and severe headaches Medications ?Medication ?Instructions ?Recorded ?Confirmed ?Type simvastatin 20 mg tablet 20 mg PO QPM cholesterol 05/ 25/18 05/15/25 History allopurinol 100 mg tablet 100 mg PO BID gout 09/07/22 11/29/24 History pantoprazole 20 mg tablet,delayed 20 mg PO DAILY reflu x 09/07/22 11/29/24 History release melatonin 5 mg capsule 5 mg PO QHS sleep 09/10/22 0 11/29/24 History lactobacillus combination no.4 3 3,000 mmu cells PO DA SUNDEEP 07/15/23 11/29/24 History billion cell capsule (Probiotic) magnesium oxide 500 mg capsule 500 mg PO DAILY 4 11/29/24 History multivitamin with iron-mineral 1 tab PO DAILY 09/13/23 11/29/24 History vitamin B complex 1 tab PO DAILY 09/13/2311/15 History carvedilol 6.25 mg tablet 6.25 mg PO BID #180 tabs 11/29/24 Rx polyethylene glycol 3350 17 gram 17 g PO DAILY PRN CON STIPATION 02/16/24 11/29/24 History oral powder packet (Miralax) aspirin 81 mg capsule 81 mg PO DAILY 06/11/2411/15 History sennosides 8.6 mg-docusate sodium 2 tab PO BID PRN con stipation #30 06/21/24 11/29/24 Rx 50 mg tablet (Stimulant Laxative tabs Plus) acetaminophen 325 mg capsule 650 mg (2 x 325 mg) PO Q6 H PRN 06/29/24 11/29/24 Rx fever or pain #30 caps apixaban 5 mg tablet (Eliquis) 5 mg PO BID blood thinn er #180 tabs 07/24/24 11/29/24 Rx gabapentin 300 mg capsule 300 mg PO BID 09/14/2411/29 History furosemide 40 mg tablet 40 mg PO DAILY Swelling or w eight 11/29/24 11/29/24 Rx gain #90 TABLETS potassium chloride 20 mEq 20 meq PO QDAY #30 tabs 11/1511/29/24 Rx tablet,extended release Ejection fraction %: 35 Have you fallen in the past year?: No [facility] Medical History Allergic rhinitis Anemia Arthritis Atherosclerotic heart disease of [place] coronary artery without angina pectoris Atrial fibrillation Avascular necrosis Back pain Benign neoplasm of colon Bradycardia CAD (coronary artery disease) Cardiology follow-up encounter Cardiomyopathy Carotid stenosis, bilateral Cervical radiculopathy Chronic back pain Closed compression fracture of L5 vertebra Compression fracture of vertebra DDD (degenerative disc disease) Diverticulosis Diverticulosis of colon Dyslipidemia Edema Erectile dysfunction Essential (primary) hypertension Excessive bleeding Fatigue Former smoker GERD (gastroesophageal reflux disease) Gout Hepatomegaly High cholesterol History of CHF (congestive heart failure) History of diverticulitis History of echocardiogram History of steroid therapy History of stress test Intractable low back pain Leg cramps Lightheadedness Loss of hearing Low iron Mitral insufficiency Mixed hyperlipidemia Osteoarthritis Other cervical disc degeneration, mid-cervical region, unspecified level PAD (peripheral artery disease) Presence of stent in coronary artery (~10/06/22) Prominent abdominal aortic pulsation Shortness of breath on exertion Snoring SOB (shortness of breath) Subclavian arterial stenosis Walker as ambulation aid Wears dentures Wears glasses Wears hearing aid Weight gain Surgical History History of cardiac catheterization History of radiofrequency ablation (RFA) for complex left atrial arrhythmia (~12/2022) History of right-sided carotid endarterectomy (~12/26/23) History of tonsillectomy and adenoidectomy Presence of coronary angioplasty implant and graft (~10/06/22) S/P eye surgery S/P hip replacement S/P knee replacement S/P shoulder replacement Status post laminectomy Family History Mother CVA (cerebral vascular accident) Heart disease Hypertension CAD (coronary artery disease) Cancer kidney Father Cancer lung Sister Fibromyalgia Brother Cancer prostate Social History Smoking Status: Former smoker quit date: 07/18/71 pack-years: 10 how long ago did patient quit smokin alcohol intake: current alcohol intake frequency: a few times a week Alcohol type: beer substance use type: does not use caffeine: Yes Type: coffee Number of servings: 2 ROS Const Const: Positive for weakness; Negative for fatigue, headache(s) or weight gain ENT ENT: Positive for balance problems; Negative for headache(s), dizziness or Nosebleed/epistaxis Cardio Chest Pain: No Palpitations: No Edema: None Muscle aches with walking: None Resp Respiratory: Positive for SOB with activity; Negative for SOB at rest or SOB orthopneaundefinedSOB lying down GI GI: Negative nausea, vomiting or heartburn Musc Musc: Positive for joint pain (back, s/p back surgery in Dec) and balance problems; Negative for muscle aches/ myalgia or muscle weakness Neuro Neuro: Positive for weakness; Negative for dizziness, lightheadedness, near syncope, syncope or headache(s) Endo Endo: Negative for fatigue Cardiology Exam Const Appearance: comfortable and no acute distress Nutritional Appearance: well nourished Neck Neck: no JVD Carotids: bruit (Bilateral carotid artery bruits audible. Right louder.) Chest Auscultation: Bilateral: Clear to Auscultation Cardio Rate: regular rate Rhythm: irregularly irregular Heart sounds: S1 normal and S2 normal Right groin stable. No hematoma. No bruit. Right radial pulse 1+. Neuro General: patient alert, patient awake and patient oriented x3 Extremities Lower Extremity Edema: None: Bilateral Supplemental Info Supplemental Information Echocardiogram November 2024: Mild concentric left ventricular hypertrophy. Severe generalized LV hypokinesis. LVEF estimated at 35%. Stage III diastolic dysfunction with elevated left atrial filling pressures. There is moderate biatrial dilatation. Moderate (2+) tricuspid valve insufficiency. Right ventricular systolic pressureestimated to be 58 mmHg. Moderate (2+) eccentric mitral valve insufficiency. Aortic sclerosis, no stenosis. Moderately calcified aortic root. ECHOCARDIOGRAM 03/29/23 @ [facility] CONCLUSIONS - Exam indication: Sustained atrial fibrillation - The left ventricle is normal in size. Left ventricular systolic function is mildly decreased. EF = 50+/- 5% (2D biplane) Indeterminate left ventricular diastolic dysfunction due to >2+ MR. - The right ventricle is normal in size. Right ventricular systolic function is normal. Tricuspid annular displacement is 2.4cm. - The left atrial cavity is moderately dilated. Arlyn 43 ml/m2. - There is moderate (2+) mitral valve regurgitation. Regurgitant orifice area (PISA) is 0.18cm2. - Exam was compared with the prior echocardiographic exam performed on 08/31/22 (Brianna). Mild improvement in the LV systolic function, patient in sinus rhythm on today's exam. ECHOCARDIOGRAM 08/31/22 @ [facility] CONCLUSIONS: - Exam indication: Atrial fibrillation - The left ventricle is normal in size. Left ventricular systolic function is moderately decreased. EF = 40 ? 5% (2D 4-ch.) Left ventricular diastolic function was not evaluated due to AF. Global hypokinesis. - The right ventricle is normal in size. Right ventricular systolic function is normal. - The left atrial cavity is mildly dilated. - There is mild (1-2+) mitral regurgitation. - There is mild (1+) tricuspid gestation. Stress Test Report: Date: 09/24/2022? Procedure: Pharmacologic stress nuclear imaging study? Rest and stress SPECT Cardiolite nuclear imaging status post realignment, normalization, and attenuation correction demonstrate moderate apical and septalreversible defect.? There is end systolic thickening and brightening.? The gatedCardiolite study demonstrates myocardial thickening and inward wall motion.? Thereported LVEF is 49%. ? Impression: 1.? Pharmacologic (Regadenoson) evaluation 2.? Peak pharmacologic ECG with no ischemic changes. 3.? There were no cardiac dysrhythmias pretest, during pharmacologic infusion, or recovery. 5.? Moderate size anterior apical and septal reversible defect suggestive of ischemia. 6.? The gated Cardiolite study reports an LVEF of 49%. CARDIAC CATH INTERVENTION 10/06/22 CONCLUSIONS 90% ostial & prox OM1(iFR 0.85) Heavily calcified Prox and Mid LAD, Mid LAD 50% LVEF 35% [place] Aorta Heavily calcified ulcerated lesion Prox Right Inominate Artery. Procedure completed through femoral approach. Successful PTCA/CALE LCX into Prox OM1 using Resolute Mikana 2.5x18 & 2.25x8mm RECOMMENDATIONS Plavix for at least 12 months Continue [facility] CAROTID DUPLEX 02/15/23: IMPRESSION RIGHT SIDE Common carotid artery: 50-99% stenosis mid vessel. Internal carotid artery: 20-39% stenosis. Findings may be underestimated due to calcified shadowing plaque from origin to proximal. Vertebral artery: Patent and antegrade flow noted. Innominate artery: Plaque visualized without evidence of hemodynamically significant stenosis. Abnormal signal suggests more proximal stenosis. Subclavian artery: 50-99%. LEFT SIDE Common carotid artery: 50-99% stenosis mid vessel. Internal carotid artery: 60-79% stenosis. External carotid artery: Elevated velocities and plaque noted. Vertebral artery: Patent and antegrade flow noted. Abnormal signal suggests moreproximal stenosis. Subclavian artery: 50-99% stenosis. CAROTID DUPLEX 11/28/23: IMPRESSION Compared to prior study of 02/15/2023, No significant change. RIGHT SIDE Common carotid artery: 50-99% stenosis. Elevated velocities mid vessel. Internal carotid artery: 20-39% stenosis. Findings may be underestimated due to calcified shadowing plaque from origin to proximal . Vertebral artery: Patent and antegrade flow noted. Innominate artery: Abnormal waveform suggests a more proximal stenosis. Subclavian artery: 50-99% stenosis. LEFT SIDE Common carotid artery: 50-99% stenosis. Elevated velocities mid vessel. Internal carotid artery: 60-79% stenosis. External carotid artery: Elevated velocities and plaque noted. Vertebral artery: Patent and antegrade flow noted. Subclavian artery: 50-99% stenosis. CHEST CTA 12/25/22: FINDINGS: CENTRAL AIRWAYS: Patent. LUNGS: Very mild centrilobular emphysema. Small calcified right upper lobe granuloma. Mild septal thickening and groundglass opacities in the bilateral lower lobes. PLEURA: Mild bilateral pleural effusions. HEART/PERICARDIUM: Heart upper limits of normal in size with coronary artery disease. No pericardial effusion. PULMONARY ARTERIES: No filling defect. AORTA/VESSELS: Advanced atherosclerosis in the nondilated thoracic aorta. MEDIASTINUM/MIRYAM: No pathologically enlarged lymph nodes. OSSEOUS STRUCTURES: Right shoulder arthroplasty in place. Degenerative change. Chronic mild T7 compression fracture. UPPER ABDOMEN: Mild ascites and gallbladder wall edema. IMPRESSION: No evidence of pulmonary embolism. Mild pulmonary edema with mild pleural effusions. Anasarca with mild ascites and gallbladder wall edema. Assessment and Plan Assessment and Plan (1) Atrial fibrillation: Status: Chronic Qualifiers: Atrial fibrillation type: paroxysmal Qualified Code(s): I48.0 - Paroxysmal atrial fibrillation Plan: Status post A-fib ablation. Apixaban. Carvedilol. (2) CAD (coronary artery disease): Status: Chronic Qualifiers: Coronary Disease-Associated Artery/Lesion type: [place] artery [place] vs. transplanted heart: [place] heart Associated angina: without angina Qualified Code(s): I25.10 - Atherosclerotic heart disease of [place] coronary artery without angina pectoris Plan: Status post drug-eluting stent placement to the mid left circumflex into the first obtuse marginal branch. Continue Plavix. (3) Cardiomyopathy: Status: Chronic Qualifiers: Cardiomyopathy type: other Qualified Code(s): I42.8 - Other cardiomyopathies Plan: LVEF down to 35%. Previous diagnosis of tachycardia induced cardiomyopathy. However he has since had ablation of his A-fib done and maintaining sinus rhythm. History of CAD as well. I therefore recommend repeating his coronary angiography and excluding severe CAD as a cause of his depressed LVEF. Risks benefits and alternatives explained to the patient. He understands these and wishes to proceed. Continue carvedilol. Start Farxiga. Start Entresto. If no significant obstructive disease was noted on angiography, then will refer to EP for consideration for defibrillator. (4) Mitral insufficiency: Status: Chronic Comment: Moderate Plan: Periodic echo and clinical surveillance. (5) Essential (primary) hypertension: Status: Chronic Plan: On carvedilol. (6) Carotid stenosis, bilateral: Status: Chronic Comment: S/P R CEA 12/2023 Plan: As per vascular surgery. (7) Dyslipidemia: Status: Chronic Plan: Continue treatment as per primary care physician. (8) Erectile dysfunction: Status: Chronic Plan: As per PCP. Plan Details Follow Up: 6 Months Coding Level of Care Code Off vis,est,level 4 Diagnoses Paroxysmal atrial fibrillation I48.0 Atrial fibrillation type: paroxysmal Coronary artery disease involving [place] coronary artery of [place] heart withoutangina pectoris I25.10 Coronary Disease-Associated Artery/Lesion type: [place] artery [place] vs. transplanted heart: [place] heart Associated angina: without angina Other cardiomyopathy I42.8 Cardiomyopathy type: other Mitral insufficiency I34.0 Essential (primary) hypertension I10 Carotid stenosis, bilateral I65.23 Dyslipidemia E78.5 Erectile dysfunction N52.9 Coding Level of Care Code Off vis,est,level 4 Diagnoses Paroxysmal atrial fibrillation I48.0 Atrial fibrillation type: paroxysmal Coronary artery disease involving [place] coronary artery of [place] heart withoutangina pectoris I25.10 Coronary Disease-Associated Artery/Lesion type: [place] artery [place] vs. transplanted heart: [place] heart Associated angina: without angina Other cardiomyopathy I42.8 Cardiomyopathy type: other Mitral insufficiency I34.0 Essential (primary) hypertension I10 Carotid stenosis, bilateral I65.23 Dyslipidemia E78.5 Erectile dysfunction N52.9 Clinical Quality Measures Falls Risk Screening/Assistive Devices Have you fallen in the past year?: No Cardiac Ejection fraction %: 35 12/11/24 1431 <Electronically signed by Osbaldo Vernon MD> Date _ Osbaldo Vernon MD Cosigner Signature: Date (if applicable) CC: Dr. Michael Ko MD ~ [place] [employer] Work Phone: [phone] 441-202305-08-2025 Radiology Diagnostic study note [facility] Imaging Services [address] [place], [place] [id number] L/S Spine Min 4 Views MR#: [id number] Acct: [id number] Name: SHELTON FOX Rep #: [id number] : 1945 M 79 From: Jimmy Iverson MD PCP: Dr. Federico Vigil MD Status: RE G CLI Study:L/S Spine Min 4 Views Date of Exam: 11/21/24 Exam# [id number] Ordering Dr: Juan Oliver MD PROCEDURE: L/S SPINE MIN 4 VIEWS 11/21/2024 REASON FOR EXAM: LUMBAR SPONDYLOSIS TECHNIQUE: Five views; AP, bilateral oblique, lateral and coned-down L5-S1 view COMPARISON: 09/14/2024 FINDINGS: Interval vertebroplasty at L5 now noted. Lumbar vertebral bodies otherwise appear unchanged. Multilevel endplate changes, spondylosis again noted, not significantly changed. No malalignment. The L5-S1 disc space is not well evaluated on the current study and difficult toexclude possibilityof interval disc space narrowing since 09/14/2024. If further concern for possible discitis, may consider MRI if no contraindication. Partially imaged left hip replacement again noted. No spondylolysis identified. Heavy appearing aortoiliac atherosclerotic calcification. RAD/L/S Spine Min 4 Views IMPRESSION: Interval vertebroplasty at L5 now noted. Lumbar vertebral bodies otherwise appear unchanged. Multilevel endplate changes, spondylosis again noted, not significantly changed. No malalignment. The L5-S1 disc space is not well evaluated on the current study and difficult toexclude possibilityof interval disc space narrowing since 09/14/2024. If further concern for possible discitis, may consider MRI if no contraindication. Reading Location: [id number] CC: Dr. Federico Vigil MD; Dr. Juan Oliver MD ~ [employer] Operator: Signed [facility]04-25-2025 NoteHNO ID: [id number] Author: DANNY JUÁREZ APRN.GANG HEMSTITCHING MACHINE OPERATOR Service: ? Author Type: Nurse Practitioner Type: Progress Notes Filed: 11/09/2024 11:01 Note Text: Chief Complaint Patient presents with: Gout HPI Shelton Fox is a 79 year old male who presents here today for Above Complaints.. Gout: - Currently taking allopurinol daily for gout prevention. - Experiences gout flares even when uric acid levels are low. - Typically uses prednisone for flare management. - Denies use of colchicine due to adverse effects. - Current flare involves redness and swelling over the medial metacarpal of the right foot, causing difficulty walking and ankle pain. Past medical history, appointments, medications, allergies reviewed. Previous Medical History PAST MEDICAL HISTORY Diagnosis Date Allergic rhinitis, cause unspecified Arthritis Atherosclerotic heart disease of [place] coronary artery without angina pectoris Atrial fibrillation (HCC) Avascular necrosis (HCC) Benign neoplasm of colon Bilateral extracranial carotid artery stenosis CAD (coronary artery disease) Cardiomyopathy (HCC) Chronic back pain Diverticulosis of colon (without [...] ACETBLR/PROX FEM PROSTC AGRFT/ALGRFT 04/2012 Dr. Wood> [facility] ARTHRP KNE CONDYLEANDPLATU MEDIALANDLAT COMPARTMENTS Right COLONOSCOPY FLX DX W/COLLJ SPEC WHEN PFRMD 05/[address] Mejia COLONOSCOPY SCREENING 05/20/2023 COLONOSCOPY W/BIOPSY SINGLE/MULTIPLE 08/24/2006 EGD 12/01/2020 ESOPHAGOGASTRODUODENOSCOPY TRANSORAL DIAGNOSTIC 05/2023 EYE SURGERY HX JOINT REPLACEMENT HX LAMINECTOMY,LUMBAR 06/20/2024 Dr. Pool with [facility] LEFT HEART CATH,PERCUTANEOUS 10/06/2022 OPEN REPAIR OF ROTATOR CUFF ACUTE 10/03/2008 Rotator cuff repair-right PAST SURGICAL HISTORY OF right knee scope PAST SURGICAL HISTORY OF cataract both eyes PAST SURGICAL HISTORY OF N/A 12/20/2022 EPS with Ablation, [facility] PAST SURGICAL HISTORY OF Right 12/26/2023 Endarterctomy carotid TONSILLECTOMY HX TONSILLECTOMY PRIMARY/SECONDARY Tonsillectomy and adnoids Family History FAMILY HISTORY Problem Relation Age of Onset Cancer Mother KIDNEY Coronary Artery Disease Mother Lipids Mother Stroke Mother Heart disease Mother Cancer Father LUNG other (fibromyalgia) Sister Heart Sister Prostate Cancer Brother Patient Allergies ALLERGIES Allergen Reactions Plaquenil [Hydroxyc* Itching Spironolactone Other: See Comments Dizziness and severe headaches Indocin [Indomethac* Diarrhea Mobic [Meloxicam] Diarrhea Current Medications Current Outpatient Medications on File Prior to Visit Medication Sig colchicine 0.6 mg tablet Take 1.2 mg PO X1, then 0.6 mg tablet 1 hour later X1. Max dose 1.8 mg allopurinol (ZYLOPRIM) 100 mg tablet Take 1 tablet by mouth two times a day. pantoprazole DR (PROTONIX) 20 mg tablet Take 1 tablet by mouth daily before breakfast. Take on empty stomach, 1/2 hr before meal. lisinopril (ZESTRIL) 5 mg tablet Take 5 mg by mouth two times a day. [facility] acetaminophen (TYLENOL) 325 mg tablet Take by mouth. simvastatin (ZOCOR) 20 mg tablet Take 1 tablet by mouth once daily. polyethylene glycol 3350 17 gram packet Take 17 g by mouth once daily. Dissolve dose in 4 - 8 ounces of liquid and take as directed. aspirin 81 mg chewable tablet Take 81 mg by mouth once daily. Patient reports taking one 81mg chewable tablet by mouth once daily. Lactobacillus acidophilus (ACIDOPHILUS ORAL) Take 1 capsule by mouth once daily. vitamin B complex (SUPER B COMPLEX ORAL) Take 1 tablet by mouth once daily. Magnesium Oxide 500 mg tab Take 1 tablet by mouth once daily. furosemide (LASIX) 40 mg tablet Take 40 mg by mouth as needed. carvedilol (COREG) 6.25 mg tablet Take 1 tablet by mouth twice daily. multivit with minerals/lutein (MULTIVITAMIN 50 PLUS ORAL) Take 1 tablet by mouth once daily. apixaban (ELIQUIS) 5 mg tab(s) Take 5 mg by mouth twice daily. Melatonin 5 mg cap Take 5 mg by mouth at bedtime as needed. No current facility-admi (more content not included)...[facility]03-28-2025 History of Present illness Narrative* Phani Rajan APRN.GANG HEMSTITCHING MACHINE OPERATOR - 10/12/2024 11:20 AM EDT Telemedicine Visit - Distance Health Virtual Visit Note Patient seen on [employer] Video Visit platform. Location of patient: [place] I have communicated my name and active licensure. The patient's identity and physical location wereverified at the time of this visit. Either the patient or their legal sales representative graphic art has been informed of the risks and benefits of -- and alternatives to -- treatment through a remote evaluation andconsents to proceed with the evaluation remotely. History of Present Illness Shelton is a 79-year-old male, with a history of atrial fibrillation on Eliquis, presenting for acute shoulder pain. Shelton reports severe shoulder pain following a recent injury, for which he was evaluated in the Pending sale to [facility]. He was informed that he might have a bicep muscle tear, rotator cuff tear, or ligament injury. He is currently unable to lift his arm and experiences significant pain with any movement. Due to his anticoagulation therapy with Eliquis, he is unable to take NSAIDs and has been managing pain with Tylenol, which provides insufficient relief. He is scheduled for a kyphoplasty on Tuesday. PAST MEDICAL HISTORY Diagnosis Date Allergic rhinitis, cause unspecified Arthritis Atherosclerotic heart disease of [place] coronary artery without angina pectoris Atrial fibrillation (HCC) Avascular necrosis (HCC) Benign neoplasm of colon Bilateral extracranial carotid artery stenosis CAD (coronary artery disease) Cardiomyopathy (HCC) Chronic back pain Diverticulosis of colon (without [...] atrial fibrillation as well as typical atrial flutterwith Dr. Walker on 12/20/2022. Subclavian arterial stenosis (HCC) Unspecified atrial fibrillation (HCC) PAST SURGICAL HISTORY Procedure Laterality Date ARTHROPLASTY TOTAL SHOULDER 06/2011 Dr. Benitez. ARTHRP ACETBLR/PROX FEM PROSTC AGRFT/ALGRFT 04/2012 Dr. Wood> [facility]. ARTHRP KNE CONDYLE&PLATU MEDIAL&LAT COMPARTMENTS Right COLONOSCOPY FLX DX W/COLLJ SPEC WHEN PFRMD 05/[address] Mejia COLONOSCOPY SCREENING 05/20/2023 COLONOSCOPY W/BIOPSY SINGLE/MULTIPLE 08/24/2006 EGD 12/01/2020 ESOPHAGOGASTRODUODENOSCOPY TRANSORAL DIAGNOSTIC 05/2023 EYE SURGERY HX JOINT REPLACEMENT HX LAMINECTOMY,LUMBAR 06/20/2024 Dr. Pool with [facility] LEFT HEART CATH,PERCUTANEOUS 10/06/2022 OPEN REPAIR OF ROTATOR CUFF ACUTE 10/03/2008 Rotator cuff repair-right PAST SURGICAL HISTORY OF right knee scope PAST SURGICAL HISTORY OF cataract both eyes PAST SURGICAL HISTORY OF N/A 12/20/2022 EPS with Ablation, [facility] PAST SURGICAL HISTORY OF Right 12/26/2023 Endarterctomy carotid TONSILLECTOMY HX TONSILLECTOMY PRIMARY/SECONDARY <AGE 12 Tonsillectomy and adnoids FAMILY HISTORY Problem Relation Age of Onset Cancer Mother KIDNEY Coronary Artery Disease Mother Lipids Mother Stroke Mother Heart disease Mother Cancer Father LUNG other (fibromyalgia) Sister Heart Sister Prostate Cancer Brother Social History Tobacco Use Smoking status: Former Current packs/day: 0.00 Average packs/day: 1 pack/day for 10.0 years (10.0 ttl pk-yrs) Types: Cigarettes Start date: 07/18/1961 Quit date: 07/18/1971 Years since quittin.2 Smokeless tobacco: Never Vaping Use Vaping status: Never Used Substance Use Topics Alcohol use: Yes Comment: occasional, 2 beers a week Drug use: No Current Outpatient Medications Medication Sig colchicine 0.6 mg tablet Take 1.2 mg PO X1, then 0.6 mg tablet 1 hour later X1. Max dose 1.8 mg allopurinol (ZYLOPRIM) 100 mg tablet Take 1 tablet by mouth two times a day. pantoprazole DR (PROTONIX) 20 mg tablet Take 1 tablet by mouth daily before breakfast. Take on empty stomach, 1/2 hr before meal. lisinopril (ZESTRIL) 5 mg tablet Take 5 mg by mouth two times a day. [facility] acetaminophen (TYLENOL) 325 mg tablet Take by mouth. simvastatin (ZOCOR) 20 mg tablet Take 1 tablet by mouth once daily. polyethylene glycol 3350 17 gram packet Take 17 g by mouth once daily. Dissolve dose in 4 - 8 ounces of liquid and take as directed. aspirin 81 mg chewable tablet Take 81 mg by mouth once daily. Patient reports taking one 81mg chewable tablet by mouth once daily. Lactobacillus acidophilus (ACIDOPHILUS ORAL) Take 1 capsule by mouth once daily. vitamin B complex (SUPER B COMPLEX ORAL) Take 1 tablet by mouth once daily. Magnesium Oxide 500 mg tab Take 1 tablet by mouth once daily. furosemide (LASIX) 40 mg tablet Take 40 mg by mouth as needed. carvedilol (COREG) 6.25 mg tablet Take 1 tablet by mouth twice daily. multivit with minerals/lutein (MULTIVITAMIN 50 PLUS ORAL) Take 1 tablet by mouth once daily. apixaban (ELIQUIS) 5 mg tab(s) Take 5 mg by mouth twice daily. Melatonin 5 mg cap Take 5 mg by mouth at bedtime as needed. No current facility-administered medications for this visit. ALLERGIES Allergen Reactions Plaquenil [Hydroxyc* Itching Spironolactone Other: See Comments Dizziness and severe headaches Indocin [Indomethac* Diarrhea Mobic [Meloxicam] Diarrhea 1. APPOINTMENT CANCELLED Patient is currently in [place], outside of my licensed practice area. Reschedule appointment for when patient is back in [place], either virtual or in-person. Phani Rajan APRN.LIZET [facility]25 NoteHNO ID: [id number] Author: PHANI RAJAN APRN.LIZET Service: ? Author Type: Nurse Practitioner Type: Progress Notes Filed: 10/12/2024 11:33 Note Text: Telemedicine Visit - Distance Health Virtual Visit Note Patient seen on [employer] Video Visit platform. Location of patient: [place] I have communicated my name and active licensure. The patient's identity and physical location were verified at the time of this visit. Either the patient or their legal sales representative graphic art has been informed of the risks and benefits of -- and alternatives to -- treatment through a remote evaluation and consents to proceed with the evaluation remotely. History of Present Illness Shelton is a 79-year-old male, with a history of atrial fibrillation on Eliquis, presenting for acute shoulder pain. Shelton reports severe shoulder pain following a recent injury, for which he was evaluated in the ER in [place]. He was informed that he might have a bicep muscle tear, rotator cuff tear, or ligament injury. He is currently unable to lift his arm and experiences significant pain with any movement. Due to his anticoagulation therapy with Eliquis, he is unable to take NSAIDs and has been managing pain with Tylenol, which provides insufficient relief. He is scheduled for a kyphoplasty on Tuesday. PAST MEDICAL HISTORY Diagnosis Date Allergic rhinitis, cause unspecified Arthritis Atherosclerotic heart disease of [place] coronary artery without angina pectoris Atrial fibrillation (HCC) Avascular necrosis (HCC) Benign neoplasm of colon Bilateral extracranial carotid artery stenosis CAD (coronary artery disease) Cardiomyopathy (HCC) Chronic back pain Diverticulosis of colon (without [...] ACETBLR/PROX FEM PROSTC AGRFT/ALGRFT 04/2012 Dr. Wood> [facility] ARTHRP KNE CONDYLEANDPLATU MEDIALANDLAT COMPARTMENTS Right COLONOSCOPY FLX DX W/COLLJ SPEC WHEN PFRMD 05/[address] Mejia COLONOSCOPY SCREENING 05/20/2023 COLONOSCOPY W/BIOPSY SINGLE/MULTIPLE 08/24/2006 EGD 12/01/2020 ESOPHAGOGASTRODUODENOSCOPY TRANSORAL DIAGNOSTIC 05/2023 EYE SURGERY HX JOINT REPLACEMENT HX LAMINECTOMY,LUMBAR 06/20/2024 Dr. Pool with [facility] LEFT HEART CATH,PERCUTANEOUS 10/06/2022 OPEN REPAIR OF ROTATOR CUFF ACUTE 10/03/2008 Rotator cuff repair-right PAST SURGICAL HISTORY OF right knee scope PAST SURGICAL HISTORY OF cataract both eyes PAST SURGICAL HISTORY OF N/A 12/20/2022 EPS with Ablation, [facility] PAST SURGICAL HISTORY OF Right 12/26/2023 Endarterctomy carotid TONSILLECTOMY HX TONSILLECTOMY PRIMARY/SECONDARY Tonsillectomy and adnoids FAMILY HISTORY Problem Relation Age of Onset Cancer Mother KIDNEY Coronary Artery Disease Mother Lipids Mother Stroke Mother Heart disease Mother Cancer Father LUNG other (fibromyalgia) Sister Heart Sister Prostate Cancer Brother Social History Tobacco Use Smoking status: Former Current packs/day: 0.00 Average packs/day: 1 pack/day for 10.0 years (10.0 ttl pk-yrs) Types: Cigarettes Start date: 07/18/1961 Quit date: 07/18/1971 Years since quittin.2 Smokeless tobacco: Never Vaping Use Vaping status: Never Used Substance Use Topics Alcohol use: Yes Comment: occasional, 2 beers a week Drug use: No Current Outpatient Medications Medication Sig colchicine 0.6 mg tablet Take 1.2 mg PO X1, then 0.6 mg tablet 1 hour later X1. Max dose 1.8 mg allopurinol (ZYLOPRIM) 100 mg tablet Take 1 tablet by mouth two times a day. pantoprazole DR (PROTONIX) 20 mg tablet Take 1 tablet by mouth daily before breakfast. Take on empty stomach, 1/2 hr before meal. lisinopril (ZESTRIL) 5 mg tablet Take 5 mg by mouth two times a day. [facility] acetaminophen (TYLENOL) 325 mg tablet Take by mouth. simvastatin (ZOCOR) 20 mg tablet Take 1 tablet by mouth once daily. polyethylene glycol 3350 17 gram packet Take 17 g by mouth once daily. Dissolve dose in 4 - 8 ounces of liquid and take as directed. aspirin 81 mg chewable tablet Take 81 mg by mouth once daily. Patient reports taking one 81mg chewable t (more content not included)...[facility]02-28-2025 Evaluation note* Diagnosis Onset Date Resolution Status Admit Date Lumbar compression fracture acute September 14, 2024 10:44am Status post laminectomy acute F ebruary 2024 10:44am Carotid stenosis, bilateral chronic November 14, 2024 12:34pm PAD (peripheral artery disease) chamber walker ruth November 14, 2024 12:34pm Subclavian arterial stenosis chronic November 14, 2024 12:34pm Atrial fibrillation chronic November 162024 1:57pm CAD (coronary artery disease) chroni c December 11, 2024 1:57pm Cardiomyopathy chronic December 11, 2024 1:57pm Carotid stenosis, bilateral chronic December 11, 2024 1:57pm Dyslipidemia chronic December 11 1:57pm Erectile dysfunction chronic December 11, 2024 1:57pm Essential (primary) hypertension chronic December 11, 2024 1 :57pm Mitral insufficiency chronic December 11, 2024 1:57pm [facility] Work Phone: [phone]) 652-697902-17-2025 Telephone encounter Note* Telephone Encounter - Miryam Ferrara LPN - 09/03/2024 1:11 PM EST Patient returned call and went over results, notes from Ruth Perez SOLID PROPELLANT PROCESSOR with understanding. [facility]02-17-2025 Miscellaneous Notes* Telephone Encounter - Miryam Ferrara LPN - 09/03/2024 1:11 PM EST Patient returned call and went over results, notes from Ruth Perez SOLID PROPELLANT PROCESSOR with understanding. * Telephone Encounter - Elif Godoy LPN - 09/03/2024 10:47 AM EST Left a message for pt to call the office and ask to speak to a nurse. Elif Godoy LPN * Telephone Encounter - Ruth Perez APRN.LIZET - 09/03/2024 10:22 AM EST Can you please call the patient and let him know that his chest x-ray was normal. I would recommendhe continue supportive care at home. COVID/RSV/flu results should be back by tomorrow. Please let me know if he has any additional questions. Ruth Perez APRN.GANG HEMSTITCHING MACHINE OPERATOR documented in this encounterHolzer [facility] System02-[facility]-2025 Telephone encounter Note * Telephone Encounter - Elif Godoy LPN - 09/03/2024 10:47 AM EST Left a message for pt to call the office and ask to speak to a nurse. Elif Godoy LPN [facility]02-17-2025 History of Present illness Narrative* Kat Stone Tech - 09/03/2024 10:40 AM EST Radiology Service Progress Note PATIENT NAME: Shelton Fox DATE OF SERVICE: September 03, 2024 TIME: 10:11 AM PATIENT IDENTITY VERIFICATION COMPLETED USING TWO (2) IDENTIFIERS: Name and Date of confirmedby patient verbally. FALL SCREENING: Has the patient had 2 falls in the last year or 1 fall with injury or currently using an Ambulatory Assistive Device (Walker, Cane, Wheelchair, Crutches, etc.)? No PATIENT GENDER DATA: Assigned male at PATIENT RELEVANT IMPLANT DATA REVIEWED: Not Applicable PATIENT PRESENTS WITH AN IMPLANTABLE OR ATTACHED TONE REGULATOR: No RADIOLOGY DEPARTMENT: General X-ray: Exam(s) Completed: Chest X-Ray PERIPHERAL IV DATA: Not applicable SIGNED BY: Yomi Bone September 03, 2024 10:11 AM documented in this encounterHolzer Health System02-17-2025 NoteHNO ID: [id number] Author: KAT STONE Tech Service: ? Author Type: Technologist Type: Progress Notes Filed: 09/03/2024 10:11 Note Text: Radiology Service Progress Note PATIENT NAME: Shelton Fox DATE OF SERVICE: September 03, 2024 TIME: 10:11 AM PATIENT IDENTITY VERIFICATION COMPLETED USING TWO (2) IDENTIFIERS: Name and Date of confirmed by patient verbally. FALL SCREENING: Has the patient had 2 falls in the last year or 1 fall with injury or currently using an Ambulatory Assistive Device (Walker, Cane, Wheelchair, Crutches, etc.)? No PATIENT GENDER DATA: Assigned male at PATIENT RELEVANT IMPLANT DATA REVIEWED: Not Applicable PATIENT PRESENTS WITH AN IMPLANTABLE OR ATTACHED TONE REGULATOR: No RADIOLOGY DEPARTMENT: General X-ray: Exam(s) Completed: Chest X-Ray PERIPHERAL IV DATA: Not applicable SIGNED BY: Yomi Bone September 03, 2024 10:11 [facility]02-17-2025 Telephone encounter Note* Telephone Encounter - Ruth Perez APRN.CNP - 09/03/2024 10:22 AM EST Can you please call the patient and let him know that his chest x-ray was normal. I would recommendhe continue supportive care at home. COVID/RSV/flu results should be back by tomorrow. Please let me know if he has any additional questions. Ruth Perez APRN.CNP [facility]02-17-2025 [id number] (AGENT OF COVID-19) RNA: Not detected INFLUENZA A RNA: Not detected INFLUENZA B RNA: Not detected RESPIRATORY SYNCYTIAL VIRUS (RSV) RNA: Not detectedMercy Health Kings Mills HospitalComment on above:Performed By: #### [id number] ####[facility] LABCLIA [id number] [place] [id number] [place] [id number] History of Present illness Narrative* Ruth Perez APRN.GANG HEMSTITCHING MACHINE OPERATOR - 09/03/2024 10:00 AM EST This is a 79 year old male who presents today with: Patient presents with: Acute Visit: flu/cough/fever HISTORY OF PRESENT ILLNESS: Shelton Fox is a 79 year old male. Patient presents with: Acute Visit: flu/cough/fever Here in the office for flu symptoms. Symptoms started last Tuesday. Ongoing sore throat, low-grade fever, and cough. Cough is dry. No wheezing or SOB. Taking Mucinex without relief. 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 Walker on 12/20/2022. Subclavian arterial stenosis (HCC) Unspecified atrial fibrillation (HCC) PAST SURGICAL HISTORY Procedure Laterality Date ARTHROPLASTY TOTAL SHOULDER 06/2011 Dr. Benitez. ARTHRP ACETBLR/PROX FEM PROSTC AGRFT/ALGRFT 04/2012 Dr. Wood> [facility]. ARTHRP KNE CONDYLE&PLATU MEDIAL&LAT COMPARTMENTS Right COLONOSCOPY FLX DX W/COLLJ SPEC WHEN PFRMD 05/[address] Mejia COLONOSCOPY SCREENING 05/20/2023 COLONOSCOPY W/BIOPSY SINGLE/MULTIPLE 08/24/2006 EGD 12/01/2020 ESOPHAGOGASTRODUODENOSCOPY TRANSORAL DIAGNOSTIC 05/2023 EYE SURGERY HX JOINT REPLACEMENT HX LAMINECTOMY,LUMBAR 06/20/2024 Dr. Pool with [facility] LEFT HEART CATH,PERCUTANEOUS 10/06/2022 OPEN REPAIR OF ROTATOR CUFF ACUTE 10/03/2008 Rotator cuff repair-right PAST SURGICAL HISTORY OF right knee scope PAST SURGICAL HISTORY OF cataract both eyes PAST SURGICAL HISTORY OF N/A 12/20/2022 EPS with Ablation, [facility] PAST SURGICAL HISTORY OF Right 12/26/2023 Endarterctomy carotid TONSILLECTOMY HX TONSILLECTOMY PRIMARY/SECONDARY <AGE 12 Tonsillectomy and adnoids ALLERGIES Plaquenil [Hydroxychloroquine], Spironolactone, Indocin [Indomethacin Sodium], and Mobic [Meloxicam] MEDICATIONS Current Outpatient Medications Medication Sig colchicine 0.6 mg tablet Take 1.2 mg PO X1, then 0.6 mg tablet 1 hour later X1. Max dose 1.8 mg allopurinol (ZYLOPRIM) 100 mg tablet Take 1 tablet by mouth two times a day. oxyCODONE IR (ROXICODONE) 5 mg immediate release tablet Take 5 mg by mouth once daily. Pain Management Dr. Burger (Patient not taking: Reported on 08/29/2024) pantoprazole DR (PROTONIX) 20 mg tablet Take 1 tablet by mouth daily before breakfast. Take on empty stomach, 1/2 hr before meal. lisinopril (ZESTRIL) 5 mg tablet Take 5 mg by mouth two times a day. [facility] acetaminophen (TYLENOL) 325 mg tablet Take by mouth. simvastatin (ZOCOR) 20 mg tablet Take 1 tablet by mouth once daily. polyethylene glycol 3350 17 gram packet Take 17 g by mouth once daily. Dissolve dose in 4 - 8 ounces of liquid and take as directed. aspirin 81 mg chewable tablet Take 81 mg by mouth once daily. Patient reports taking one 81mg chewable tablet by mouth once daily. Lactobacillus acidophilus (ACIDOPHILUS ORAL) Take 1 capsule by mouth once daily. vitamin B complex (SUPER B COMPLEX ORAL) Take 1 tablet by mouth once daily. Magnesium Oxide 500 mg tab Take 1 tablet by mouth once daily. (Patient not taking: Reported on 07/24/2024) furosemide (LASIX) 40 mg tablet Take 40 mg by mouth as needed. carvedilol (COREG) 6.25 mg tablet Take 1 tablet by mouth twice daily. multivit with minerals/lutein (MULTIVITAMIN 50 PLUS ORAL) Take 1 tablet by mouth once daily. apixaban (ELIQUIS) 5 mg tab(s) Take 5 mg by mouth twice daily. Melatonin 5 mg cap Take 5 mg by mouth at bedtime as needed. No current facility-administered medications for this visit. FAMILY HISTORY Problem Relation Age of Onset Cancer Mother KIDNEY Coronary Artery Disease Mother Lipids Mother Stroke Mother Heart disease Mother Cancer Father LUNG other (fibromyalgia) Sister Heart Sister Prostate Cancer Brother Social History Tobacco Use Smoking status: Former Current packs/day: 0.00 Average packs/day: 1 pack/day for 10.0 years (10.0 ttl pk-yrs) Types: Cigarettes Start date: 07/18/1961 Quit date: 07/18/1971 Years since quittin.1 Smokeless tobacco: Never Vaping Use Vaping status: Never Used Substance Use Topics Alcohol use: Yes Comment: occasional, 2 beers a week Drug use: No REVIEW OF SYSTEMS GENERAL: No weight loss, malaise or fevers/chills HEENT: + Sore Throat NECK: Negative for lumps, goiter, pain and significant neck swelling RESPIRATORY: + Cough CARDIOVASCULAR: Negative for chest pain, leg swelling, [...] depression, anxiety, or suicidal ideation. EXAM: BP 106/70 Pulse 76 Temp 36.8 C (98.2 F) (Left Tympanic) Resp 16 Wt 77 kg (169 lb 12.1 oz) SpO2 97% BMI 24.36 kg/m PHYSICAL EXAM: General Appearance: Ill appearing, alert, in no acute distress, well-hydrated, well nourished. Skin: Skin color, texture, turgor normal, no suspicious rashes or lesions. Head: Normocephalic, no masses, lesions, tenderness or abnormalities. Eyes: Anicteric sclera. Extraocular movements are intact. Ears: External ears normal, canals clear. TM's dull. Nose/Sinuses: Nares normal, septum midline, mucosa normal, no drainage or sinus tenderness. Oropharynx: Positive findings: mild oropharyngeal erythema. Neck: Supple, no adenopathy; thyroid symmetric, normal size, no bruits. Lungs: Lungs clear to auscultation. No wheezing, rhonchi, rales. Cough. Heart: Positive findings: irregular rhythm. History of afib Extremities: No deformities, edema, skin discoloration, clubbing or cyanosis. Good capillary refill. Peripheral Pulses: Normal, Capillary refill <2secs, strong peripheral pulses, Pulses palpable. Neurologic: Gait normal. Sensation grossly intact. ASSESSMENT/PLAN: 1. URI, acute - ICD9: 465.9, ICD10: J06.9 (primary diagnosis) - Discussed viral etiology and rationale for treatment. - Group A strep molecular testing negative - Symptomatic treatment with prn analgesia - Supportive care with fluids and rest - STREP A MOLECULAR (POC) - COVID & INFLUENZA A/B & RSV PCR, ROUTINE - CODEINE 10 MG-GUAIFENESIN 100 MG/5 ML ORAL LIQUID 2. Acute cough - ICD9: 786.2, ICD10: R05.1 - Patient requesting chest xray and Covid/Flu/RSV testing. - May use codeine cough syrup as needed. - Continue supportive care at home. Stay well-hydrated. - XR CHEST 2V FRONTAL/LAT - CODEINE 10 MG-GUAIFENESIN 100 MG/5 ML ORAL LIQUID Follow-up pending test results or sooner as needed. Discussed treatment plan and patient voices understanding. Patient's questions answered appropriately. Medications and potential side effects were discussed and patient voices understanding. Ruth Perez APRN.GANG HEMSTITCHING MACHINE OPERATOR This note was partially generated using [employer] recognition system. Note was reviewed for accuracy. There may be minor misspellings or grammar miscues with [employer] voice recognition. PDMP website checked and validated. All prescriptions have been APPROPRIATELY filled. No suspiciousactivity was identified. 09/03/2024 by Ruth Perez APRN.GANG HEMSTITCHING MACHINE OPERATOR documented in this encounterHolzer Health System02-17-2025 NoteHNO ID: [id number] Author: RUTH PEREZ APRN.GANG HEMSTITCHING MACHINE OPERATOR Service: ? Author Type: Nurse Practitioner Type: Progress Notes Filed: 09/03/2024 10:15 Note Text: This is a 79 year old male who presents today with: Patient presents with: Acute Visit: flu/cough/fever HISTORY OF PRESENT ILLNESS: Shelton Fox is a 79 year old male. Patient presents with: Acute Visit: flu/cough/fever Here in the office for flu symptoms. Symptoms started last Tuesday. Ongoing sore throat, low-grade fever, and cough. Cough is dry. No wheezing or SOB. Taking Mucinex without relief. PAST MEDICAL HISTORY: PAST MEDICAL HISTORY Diagnosis Date Allergic rhinitis, cause unspecified Arthritis Atherosclerotic heart disease of [place] coronary artery without angina pectoris Atrial fibrillation (HCC) Avascular necrosis (HCC) Benign neoplasm of colon Bilateral extracranial carotid artery stenosis CAD (coronary artery disease) Cardiomyopathy (HCC) Chronic back pain Diverticulosis of colon (without [...] ACETBLR/PROX FEM PROSTC AGRFT/ALGRFT 04/2012 Dr. Wood> [facility]. ARTHRP KNE CONDYLEANDPLATU MEDIALANDLAT COMPARTMENTS Right COLONOSCOPY FLX DX W/COLLJ SPEC WHEN PFRMD 05/[address] Mejia COLONOSCOPY SCREENING 05/20/2023 COLONOSCOPY W/BIOPSY SINGLE/MULTIPLE 08/24/2006 EGD 12/01/2020 ESOPHAGOGASTRODUODENOSCOPY TRANSORAL DIAGNOSTIC 05/2023 EYE SURGERY HX JOINT REPLACEMENT HX LAMINECTOMY,LUMBAR 06/20/2024 Dr. Pool with [facility] LEFT HEART CATH,PERCUTANEOUS 10/06/2022 OPEN REPAIR OF ROTATOR CUFF ACUTE 10/03/2008 Rotator cuff repair-right PAST SURGICAL HISTORY OF right knee scope PAST SURGICAL HISTORY OF cataract both eyes PAST SURGICAL HISTORY OF N/A 12/20/2022 EPS with Ablation, [facility] PAST SURGICAL HISTORY OF Right 12/26/2023 Endarterctomy carotid TONSILLECTOMY HX TONSILLECTOMY PRIMARY/SECONDARY Tonsillectomy and adnoids ALLERGIES Plaquenil [Hydroxychloroquine], Spironolactone, Indocin [Indomethacin Sodium], and Mobic [Meloxicam] MEDICATIONS Current Outpatient Medications Medication Sig colchicine 0.6 mg tablet Take 1.2 mg PO X1, then 0.6 mg tablet 1 hour later X1. Max dose 1.8 mg allopurinol (ZYLOPRIM) 100 mg tablet Take 1 tablet by mouth two times a day. oxyCODONE IR (ROXICODONE) 5 mg immediate release tablet Take 5 mg by mouth once daily. Pain Management Dr. Burger (Patient not taking: Reported on 08/29/2024) pantoprazole DR (PROTONIX) 20 mg tablet Take 1 tablet by mouth daily before breakfast. Take on empty stomach, 1/2 hr before meal. lisinopril (ZESTRIL) 5 mg tablet Take 5 mg by mouth two times a day. [facility] acetaminophen (TYLENOL) 325 mg tablet Take by mouth. simvastatin (ZOCOR) 20 mg tablet Take 1 tablet by mouth once daily. polyethylene glycol 3350 17 gram packet Take 17 g by mouth once daily. Dissolve dose in 4 - 8 ounces of liquid and take as directed. aspirin 81 mg chewable tablet Take 81 mg by mouth once daily. Patient reports taking one 81mg chewable tablet by mouth once daily. Lactobacillus acidophilus (ACIDOPHILUS ORAL) Take 1 capsule by mouth once daily. vitamin B complex (SUPER B COMPLEX ORAL) Take 1 tablet by mouth once daily. Magnesium Oxide 500 mg tab Take 1 tablet by mouth once daily. (Patient not taking: Reported on 07/24/2024) furosemide (LASIX) 40 mg tablet Take 40 mg by mouth as needed. carvedilol (COREG) 6.25 mg tablet Take 1 tablet by mouth twice daily. multivit with minerals/lutein (MULTIVITAMIN 50 PLUS ORAL) Take 1 tablet by mouth once daily. apixaban (ELIQUIS) 5 mg tab(s) Take 5 mg by mouth twice daily. Melatonin 5 mg cap Take 5 mg by mouth at bedtime as needed. No current facility-administered medications for this visit. FAMILY HISTORY Problem Relation Age of Onset Cancer Mother KIDNEY Coronary Artery Disease Mother Lipids Mother Stroke Mother Heart disease Mother Cancer Father LUNG other (fibromyalgia) Sister Heart Sister Prostate Cancer Brother Social History Tobacco Use Smoking status: Former Current packs/day: 0.00 Average packs/day: (more content not included)...[facility] 09-03-2024 Instructions* Patient Instructions* Ruth Perez APRN.CNP - 09/03/2024 9:58 AM EST Strep Negative Get chest xray completed today Covid, flu, RSV pending Continue supportive care at home, stay well hydrated May use Codeine cough syrup as needed, may cause sleepiness Follow up pending test results or sooner as needed documented in this encounterHolzer Health System02-12-2025 Instructions* Patient Instructions* Ruth Perez APRN.CNP - 08/29/2024 10:30 AM EST Get labs completed today Start Colchicine, take as prescribed Continue supportive care at home May apply warm or cool compress to knee, elevated knee May take Claritin or Zyrtec as needed Follow up pending test results documented in this encounterHolzer Health System02-12-2025 History of Present illness Narrative* Ruth Perez APRN.CNP - 08/29/2024 10:00 AM EST This is a 79 year old male who presents today with: Patient presents with: Follow Up: UC follow up for gout. Possible cold HISTORY OF PRESENT ILLNESS: Shelton Fox is a 79 year old male. Patient presents with: Follow Up: UC follow up for gout. Possible cold Here in the office for gout flare. Was seen in [facility] 08/24/23 treated with prednisone 40 mg daily for 5 days. Reports he is done with the prednisone, he continues with pain on his left knee cap. He reports he limps with walking due to the pain, due to this his back is now hurting. Had back surgery about 3 months ago. History of gout, taking Allopurinol 100 mg BID, last uric acid in 2022, past due for labs. 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 Walker on 12/20/2022. Subclavian arterial stenosis (HCC) Unspecified atrial fibrillation (HCC) PAST SURGICAL HISTORY Procedure Laterality Date ARTHROPLASTY TOTAL SHOULDER 06/2011 Dr. Benitez. ARTHRP ACETBLR/PROX FEM PROSTC AGRFT/ALGRFT 04/2012 Dr. Wood> [facility]. ARTHRP KNE CONDYLE&PLATU MEDIAL&LAT COMPARTMENTS Right COLONOSCOPY FLX DX W/COLLJ SPEC WHEN PFRMD 05/[address] Mejia COLONOSCOPY SCREENING 05/20/2023 COLONOSCOPY W/BIOPSY SINGLE/MULTIPLE 08/24/2006 EGD 12/01/2020 ESOPHAGOGASTRODUODENOSCOPY TRANSORAL DIAGNOSTIC 05/2023 EYE SURGERY HX JOINT REPLACEMENT HX LAMINECTOMY,LUMBAR 06/20/2024 Dr. Pool with [facility] LEFT HEART CATH,PERCUTANEOUS 10/06/2022 OPEN REPAIR OF ROTATOR CUFF ACUTE 10/03/2008 Rotator cuff repair-right PAST SURGICAL HISTORY OF right knee scope PAST SURGICAL HISTORY OF cataract both eyes PAST SURGICAL HISTORY OF N/A 12/20/2022 EPS with Ablation, [facility] PAST SURGICAL HISTORY OF Right 12/26/2023 Endarterctomy carotid TONSILLECTOMY HX TONSILLECTOMY PRIMARY/SECONDARY <AGE 12 Tonsillectomy and adnoids ALLERGIES Plaquenil [Hydroxychloroquine], Spironolactone, Indocin [Indomethacin Sodium], and Mobic [Meloxicam] MEDICATIONS Current Outpatient Medications Medication Sig predniSONE (DELTASONE) 20 mg tablet Take 2 tablets by mouth once daily for 5 days. allopurinol (ZYLOPRIM) 100 mg tablet Take 1 tablet by mouth two times a day. oxyCODONE IR (ROXICODONE) 5 mg immediate release tablet Take 5 mg by mouth once daily. Pain Management Dr. Burger pantoprazole DR (PROTONIX) 20 mg tablet Take 1 tablet by mouth daily before breakfast. Take on empty stomach, 1/2 hr before meal. lisinopril (ZESTRIL) 5 mg tablet Take 5 mg by mouth two times a day. [facility] acetaminophen (TYLENOL) 325 mg tablet Take by mouth. simvastatin (ZOCOR) 20 mg tablet Take 1 tablet by mouth once daily. polyethylene glycol 3350 17 gram packet Take 17 g by mouth once daily. Dissolve dose in 4 - 8 ounces of liquid and take as directed. aspirin 81 mg chewable tablet Take 81 mg by mouth once daily. Patient reports taking one 81mg chewable tablet by mouth once daily. Lactobacillus acidophilus (ACIDOPHILUS ORAL) Take 1 capsule by mouth once daily. vitamin B complex (SUPER B COMPLEX ORAL) Take 1 tablet by mouth once daily. Magnesium Oxide 500 mg tab Take 1 tablet by mouth once daily. (Patient not taking: Reported on 07/24/2024) furosemide (LASIX) 40 mg tablet Take 40 mg by mouth as needed. carvedilol (COREG) 6.25 mg tablet Take 1 tablet by mouth twice daily. multivit with minerals/lutein (MULTIVITAMIN 50 PLUS ORAL) Take 1 tablet by mouth once daily. apixaban (ELIQUIS) 5 mg tab(s) Take 5 mg by mouth twice daily. Melatonin 5 mg cap Take 5 mg by mouth at bedtime as needed. No current facility-administered medications for this visit. FAMILY HISTORY Problem Relation Age of Onset Cancer Mother KIDNEY Coronary Artery Disease Mother Lipids Mother Stroke Mother Heart disease Mother Cancer Father LUNG other (fibromyalgia) Sister Heart Sister Prostate Cancer Brother Social History Tobacco Use Smoking status: Former Current packs/day: 0.00 Average packs/day: 1 pack/day for 10.0 years (10.0 ttl pk-yrs) Types: Cigarettes Start date: 07/18/1961 Quit date: 07/18/1971 Years since quittin.1 Smokeless tobacco: Never Vaping Use Vaping status: Never Used Substance Use Topics Alcohol use: Yes Comment: occasional, 2 beers a week Drug use: No REVIEW OF SYSTEMS [...] of dysuria, frequency or incontinence MUSCULOSKELETAL: + Left Knee Pain SKIN: Negative for lesions, rash, and itching ENDOCRINE: Negative for cold or heat intolerance, polyuria, polydipsia and goiter NEURO: No history of headaches, syncope, paralysis, seizures or tremors MOOD: Negative for depression, anxiety, or suicidal ideation. EXAM: BP 140/90 Pulse 62 Temp 36.2 C (97.1 F) (Left Tympanic) Resp 16 Wt 79.8 kg (175 lb 14.8 oz) SpO2 97% BMI 25.24 kg/m PHYSICAL EXAM: General Appearance: Well appearing, alert, in no acute distress, well-hydrated, well nourished. Skin: Skin color, texture, turgor normal, no suspicious rashes or lesions. Head: Normocephalic, no masses, lesions, tenderness or abnormalities. Eyes: Anicteric sclera. Extraocular movements are intact. . Lungs: Lungs clear to auscultation. No wheezing, rhonchi, rales. Heart: RRR without murmur, gallop, or rubs. No ectopy. Extremities: No deformities, edema, skin discoloration, clubbing or cyanosis. Good capillary refill. Musculoskeletal: Full ROM, Left knee swollen, small area of erythema noted on the patella, no increased warmth, tender with palpation. Peripheral Pulses: Normal, Capillary refill <2secs, strong peripheral pulses, Pulses palpable. Neurologic: Gait normal. Sensation grossly intact. ASSESSMENT/PLAN: 1. Chronic gout of left knee, unspecified cause - ICD9: 274.02, ICD10: M1A.0620 - Start Colchicine - Get labs, may need to adjust Allopurinol pending results. - URIC ACID - COMPREHENSIVE METABOLIC PANEL - COLCHICINE 0.6 MG TABLET Follow-up pending test results or sooner as needed. Discussed treatment plan and patient voices understanding. Patient's questions answered appropriately. Medications and potential side effects were discussed and patient voices understanding. Ruth Perez APRN.LIZET This note was partially generated using [employer] voice recognition system. Note was reviewed for accuracy. There may be minor misspellings or grammar miscues with [employer] voice recognition. documented in this encounterHolzer Health System02-12-2025 NoteHNO ID: [id number] Author: RUTH PEREZ APRN.CNP Service: ? Author Type: Nurse Practitioner Type: Progress Notes Filed: 08/29/2024 12:58 Note Text: This is a 79 year old male who presents today with: Patient presents with: Follow Up: UC follow up for gout. Possible cold HISTORY OF PRESENT ILLNESS: Shelton Fox is a 79 year old male. Patient presents with: Follow Up: UC follow up for gout. Possible cold Here in the office for gout flare. Was seen in [facility] 08/24/23 treated with prednisone 40 mg daily for 5 days. Reports he is done with the prednisone, he continues with pain on his left knee cap. He reports he limps with walking due to the pain, due to this his back is now hurting. Had back surgery about 3 months ago. History of gout, taking Allopurinol 100 mg BID, last uric acid in 2022, past due for labs. PAST MEDICAL HISTORY: PAST MEDICAL HISTORY Diagnosis Date Allergic rhinitis, cause unspecified Arthritis Atherosclerotic heart disease of [place] coronary artery without angina pectoris Atrial fibrillation (HCC) Avascular necrosis (HCC) Benign neoplasm of colon Bilateral extracranial carotid artery stenosis CAD (coronary artery disease) Cardiomyopathy (HCC) Chronic back pain Diverticulosis of colon (without [...] ACETBLR/PROX FEM PROSTC AGRFT/ALGRFT 04/2012 Dr. Wood> [facility]. ARTHRP KNE CONDYLEANDPLATU MEDIALANDLAT COMPARTMENTS Right COLONOSCOPY FLX DX W/COLLJ SPEC WHEN PFRMD 05/[address] Mejia COLONOSCOPY SCREENING 05/20/2023 COLONOSCOPY W/BIOPSY SINGLE/MULTIPLE 08/24/2006 EGD 12/01/2020 ESOPHAGOGASTRODUODENOSCOPY TRANSORAL DIAGNOSTIC 05/2023 EYE SURGERY HX JOINT REPLACEMENT HX LAMINECTOMY,LUMBAR 06/20/2024 Dr. Pool with [facility] LEFT HEART CATH,PERCUTANEOUS 10/06/2022 OPEN REPAIR OF ROTATOR CUFF ACUTE 10/03/2008 Rotator cuff repair-right PAST SURGICAL HISTORY OF right knee scope PAST SURGICAL HISTORY OF cataract both eyes PAST SURGICAL HISTORY OF N/A 12/20/2022 EPS with Ablation, [facility] PAST SURGICAL HISTORY OF Right 12/26/2023 Endarterctomy carotid TONSILLECTOMY HX TONSILLECTOMY PRIMARY/SECONDARY Tonsillectomy and adnoids ALLERGIES Plaquenil [Hydroxychloroquine], Spironolactone, Indocin [Indomethacin Sodium], and Mobic [Meloxicam] MEDICATIONS Current Outpatient Medications Medication Sig predniSONE (DELTASONE) 20 mg tablet Take 2 tablets by mouth once daily for 5 days. allopurinol (ZYLOPRIM) 100 mg tablet Take 1 tablet by mouth two times a day. oxyCODONE IR (ROXICODONE) 5 mg immediate release tablet Take 5 mg by mouth once daily. Pain Management Dr. Burger pantoprazole DR (PROTONIX) 20 mg tablet Take 1 tablet by mouth daily before breakfast. Take on empty stomach, 1/2 hr before meal. lisinopril (ZESTRIL) 5 mg tablet Take 5 mg by mouth two times a day. [facility] acetaminophen (TYLENOL) 325 mg tablet Take by mouth. simvastatin (ZOCOR) 20 mg tablet Take 1 tablet by mouth once daily. polyethylene glycol 3350 17 gram packet Take 17 g by mouth once daily. Dissolve dose in 4 - 8 ounces of liquid and take as directed. aspirin 81 mg chewable tablet Take 81 mg by mouth once daily. Patient reports taking one 81mg chewable tablet by mouth once daily. Lactobacillus acidophilus (ACIDOPHILUS ORAL) Take 1 capsule by mouth once daily. vitamin B complex (SUPER B COMPLEX ORAL) Take 1 tablet by mouth once daily. Magnesium Oxide 500 mg tab Take 1 tablet by mouth once daily. (Patient not taking: Reported on 07/24/2024) furosemide (LASIX) 40 mg tablet Take 40 mg by mouth as needed. carvedilol (COREG) 6.25 mg tablet Take 1 tablet by mouth twice daily. multivit with minerals/lutein (MULTIVITAMIN 50 PLUS ORAL) Take 1 tablet by mouth once daily. apixaban (ELIQUIS) 5 mg tab(s) Take 5 mg by mouth twice daily. Melatonin 5 mg cap Take 5 mg by mouth at bedtime as needed. No current facility-administered medications for this visit. FAMILY HISTORY Problem Relation Age of Onset Cancer Mother KIDNEY Coronary Artery Disease Mother Lipids Mother Stroke Moth (more content not included)...[facility]02-07-2025 History of Present illness Narrative* Arun Lopez, RT(R) - 08/24/2024 4:20 PM EST Radiology Service Progress Note PATIENT NAME: Shelton Fox DATE OF SERVICE: August 24, 2024 TIME: 4:21 PM PATIENT IDENTITY VERIFICATION COMPLETED USING TWO (2) IDENTIFIERS: Name and Date of confirmedby patient verbally. FALL SCREENING: Has the patient had 2 falls in the last year or 1 fall with injury or currently using an Ambulatory Assistive Device (Walker, Cane, Wheelchair, Crutches, etc.)? No PATIENT GENDER DATA: Assigned male at PATIENT RELEVANT IMPLANT DATA REVIEWED: Not Applicable PATIENT PRESENTS WITH AN IMPLANTABLE OR ATTACHED TONE REGULATOR: No RADIOLOGY DEPARTMENT: General X-ray: Exam(s) Completed: Lower Extremity X- Ray(s): Knee, AP / Lat / Tunne / Merchant Left and Wt. Bearing PERIPHERAL IV DATA: Not applicable SIGNED BY: RT Eunice(R) August 24, 2024 4:21 PM documented in this encounterHolzer Health System02-07-2025 NoteHNO ID: [id number] Author: ARUN LOPEZ RT(R) Service: Radiology Author Type: Technologist Type: Progress Notes Filed: 08/24/2024 16:30 Note Text: Radiology Service Progress Note PATIENT NAME: Shelton Fox DATE OF SERVICE: August 24, 2024 TIME: 4:21 PM PATIENT IDENTITY VERIFICATION COMPLETED USING TWO (2) IDENTIFIERS: Name and Date of confirmed by patient verbally. FALL SCREENING: Has the patient had 2 falls in the last year or 1 fall with injury or currently using an Ambulatory Assistive Device (Walker, Cane, Wheelchair, Crutches, etc.)? No PATIENT GENDER DATA: Assigned male at PATIENT RELEVANT IMPLANT DATA REVIEWED: Not Applicable PATIENT PRESENTS WITH AN IMPLANTABLE OR ATTACHED TONE REGULATOR: No RADIOLOGY DEPARTMENT: General X-ray: Exam(s) Completed: Lower Extremity X-Ray(s): Knee, AP / Lat / Tunne / Merchant Left and Wt. Bearing PERIPHERAL IV DATA: Not applicable SIGNED BY: RT Eunice(R) August 24, 2024 4:21 [facility]02-07-2025 NoteHNO ID: [id number] Author: SUMAYA ALCAZAR APRN.GANG HEMSTITCHING MACHINE OPERATOR Service: ? Author Type: Nurse Practitioner Type: Progress Notes Filed: 08/24/2024 17:18 Note Text: Subjective HPI HPI Shelton Fox is a 78 year old male who presents today for CC of right knee pain/woke him up in the night. Has tried nothing for relief. Symptoms are worsened by rom. Risk factors hx of gout, concerned this is a flair. Denies recent injury or overuse .Patient presents with: Left Knee Pain: X this AM, possible gout, redness and warmth PAST MEDICAL HISTORY Diagnosis Date Allergic rhinitis, cause unspecified Arthritis Atherosclerotic heart disease of [place] coronary artery without angina pectoris Atrial fibrillation (HCC) Avascular necrosis (HCC) Benign neoplasm of colon Bilateral extracranial carotid artery stenosis CAD (coronary artery disease) Cardiomyopathy (HCC) Chronic back pain Diverticulosis of colon (without [...] ACETBLR/PROX FEM PROSTC AGRFT/ALGRFT 04/2012 Dr. Wood> [facility]. ARTHRP KNE CONDYLEANDPLATU MEDIALANDLAT COMPARTMENTS Right COLONOSCOPY FLX DX W/COLLJ SPEC WHEN PFRMD 05/[address] Mejia COLONOSCOPY SCREENING 05/20/2023 COLONOSCOPY W/BIOPSY SINGLE/MULTIPLE 08/24/2006 EGD 12/01/2020 ESOPHAGOGASTRODUODENOSCOPY TRANSORAL DIAGNOSTIC 05/2023 EYE SURGERY HX JOINT REPLACEMENT HX LAMINECTOMY,LUMBAR 06/20/2024 Dr. Pool with [facility] LEFT HEART CATH,PERCUTANEOUS 10/06/2022 OPEN REPAIR OF ROTATOR CUFF ACUTE 10/03/2008 Rotator cuff repair-right PAST SURGICAL HISTORY OF right knee scope PAST SURGICAL HISTORY OF cataract both eyes PAST SURGICAL HISTORY OF N/A 12/20/2022 EPS with Ablation, [facility] PAST SURGICAL HISTORY OF Right 12/26/2023 Endarterctomy carotid TONSILLECTOMY HX TONSILLECTOMY PRIMARY/SECONDARY Tonsillectomy and adnoids ALLERGIES Plaquenil [Hydroxychloroquine], Spironolactone, Indocin [Indomethacin Sodium], and Mobic [Meloxicam] MEDICATIONS allopurinol (ZYLOPRIM) 100 mg tablet Take 1 tablet by mouth two times a day. oxyCODONE IR (ROXICODONE) 5 mg immediate release tablet Take 5 mg by mouth once daily. Pain Management Dr. Burger pantoprazole DR (PROTONIX) 20 mg tablet Take 1 tablet by mouth daily before breakfast. Take on empty stomach, 1/2 hr before meal. lisinopril (ZESTRIL) 5 mg tablet Take 5 mg by mouth two times a day. [facility] acetaminophen (TYLENOL) 325 mg tablet Take by mouth. simvastatin (ZOCOR) 20 mg tablet Take 1 tablet by mouth once daily. polyethylene glycol 3350 17 gram packet Take 17 g by mouth once daily. Dissolve dose in 4 - 8 ounces of liquid and take as directed. aspirin 81 mg chewable tablet Take 81 mg by mouth once daily. Patient reports taking one 81mg chewable tablet by mouth once daily. Lactobacillus acidophilus (ACIDOPHILUS ORAL) Take 1 capsule by mouth once daily. vitamin B complex (SUPER B COMPLEX ORAL) Take 1 tablet by mouth once daily. Magnesium Oxide 500 mg tab Take 1 tablet by mouth once daily. (Patient not taking: Reported on 07/24/2024) furosemide (LASIX) 40 mg tablet Take 40 mg by mouth as needed. carvedilol (COREG) 6.25 mg tablet Take 1 tablet by mouth twice daily. multivit with minerals/lutein (MULTIVITAMIN 50 PLUS ORAL) Take 1 tablet by mouth once daily. apixaban (ELIQUIS) 5 mg tab(s) Take 5 mg by mouth twice daily. Melatonin 5 mg cap Take 5 mg by mouth at bedtime as needed. FAMILY HISTORY Problem Relation Age of Onset Cancer Mother KIDNEY Coronary Artery Disease Mother Lipids Mother Stroke Mother Heart disease Mother Cancer Father LUNG other (fibromyalgia) Sister Heart Sister Prostate Cancer Brother Social History Tobacco Use Smoking status: Former Current packs/day: 0.00 Average packs/day: 1 pack/day for 10.0 years (10.0 ttl pk-yrs) Types: Cigarettes Start date: 07/18/1961 Quit date: 07/18/1971 Years since quittin.1 Smokeless tobacco: Never Vaping Use Vaping status: Never Used Substance Use Topics Alcohol use: Yes Comment: occasional, 2 beers a week Drug use: No ROS Objective Blood pressu (more content not included)...[facility]02-07-2025 History of Present illness Narrative* Sumaya Alcazar APRN.GANG HEMSTITCHING MACHINE OPERATOR - 08/24/2024 3:59 PM EST Images from the original note were not included. Subjective HPI HPI Shelton Fox is a 78 year old male who presents today for CC of right knee pain/woke him up in the night. Has tried nothing for relief. Symptoms are worsened by rom. Risk factors hx of gout, concerned this is a flair. Denies recent injury or overuse .Patient presents with: Left Knee Pain: X this AM, possible gout, redness and warmth PAST MEDICAL HISTORY Diagnosis Date Allergic rhinitis, cause unspecified Arthritis Atherosclerotic heart disease of [place] coronary artery without angina pectoris Atrial fibrillation (HCC) Avascular necrosis (HCC) Benign neoplasm of colon Bilateral extracranial carotid artery stenosis CAD (coronary artery disease) Cardiomyopathy (HCC) Chronic back pain Diverticulosis of colon (without [...] atrial fibrillation as well as typical atrial flutterwith Dr. Walker on 12/20/2022. Subclavian arterial stenosis (HCC) Unspecified atrial fibrillation (HCC) PAST SURGICAL HISTORY Procedure Laterality Date ARTHROPLASTY TOTAL SHOULDER 06/2011 Dr. Benitez. ARTHRP ACETBLR/PROX FEM PROSTC AGRFT/ALGRFT 04/2012 Dr. Wood> [facility] ARTHRP KNE CONDYLE&PLATU MEDIAL&LAT COMPARTMENTS Right COLONOSCOPY FLX DX W/COLLJ SPEC WHEN PFRMD 05/[address] Mejia COLONOSCOPY SCREENING 05/20/2023 COLONOSCOPY W/BIOPSY SINGLE/MULTIPLE 08/24/2006 EGD 12/01/2020 ESOPHAGOGASTRODUODENOSCOPY TRANSORAL DIAGNOSTIC 05/2023 EYE SURGERY HX JOINT REPLACEMENT HX LAMINECTOMY,LUMBAR 06/20/2024 Dr. Pool with [facility] LEFT HEART CATH,PERCUTANEOUS 10/06/2022 OPEN REPAIR OF ROTATOR CUFF ACUTE 10/03/2008 Rotator cuff repair-right PAST SURGICAL HISTORY OF right knee scope PAST SURGICAL HISTORY OF cataract both eyes PAST SURGICAL HISTORY OF N/A 12/20/2022 EPS with Ablation, [facility] PAST SURGICAL HISTORY OF Right 12/26/2023 Endarterctomy carotid TONSILLECTOMY HX TONSILLECTOMY PRIMARY/SECONDARY <AGE 12 Tonsillectomy and adnoids ALLERGIES Plaquenil [Hydroxychloroquine], Spironolactone, Indocin [Indomethacin Sodium], and Mobic [Meloxicam] MEDICATIONS allopurinol (ZYLOPRIM) 100 mg tablet Take 1 tablet by mouth two times a day. oxyCODONE IR (ROXICODONE) 5 mg immediate release tablet Take 5 mg by mouth once daily. Pain Management Dr. Burger pantoprazole DR (PROTONIX) 20 mg tablet Take 1 tablet by mouth daily before breakfast. Take on empty stomach, 1/2 hr before meal. lisinopril (ZESTRIL) 5 mg tablet Take 5 mg by mouth two times a day. [facility] acetaminophen (TYLENOL) 325 mg tablet Take by mouth. simvastatin (ZOCOR) 20 mg tablet Take 1 tablet by mouth once daily. polyethylene glycol 3350 17 gram packet Take 17 g by mouth once daily. Dissolve dose in 4 - 8 ounces of liquid and take as directed. aspirin 81 mg chewable tablet Take 81 mg by mouth once daily. Patient reports taking one 81mg chewable tablet by mouth once daily. Lactobacillus acidophilus (ACIDOPHILUS ORAL) Take 1 capsule by mouth once daily. vitamin B complex (SUPER B COMPLEX ORAL) Take 1 tablet by mouth once daily. Magnesium Oxide 500 mg tab Take 1 tablet by mouth once daily. (Patient not taking: Reported on 07/24/2024) furosemide (LASIX) 40 mg tablet Take 40 mg by mouth as needed. carvedilol (COREG) 6.25 mg tablet Take 1 tablet by mouth twice daily. multivit with minerals/lutein (MULTIVITAMIN 50 PLUS ORAL) Take 1 tablet by mouth once daily. apixaban (ELIQUIS) 5 mg tab(s) Take 5 mg by mouth twice daily. Melatonin 5 mg cap Take 5 mg by mouth at bedtime as needed. FAMILY HISTORY Problem Relation Age of Onset Cancer Mother KIDNEY Coronary Artery Disease Mother Lipids Mother Stroke Mother Heart disease Mother Cancer Father LUNG other (fibromyalgia) Sister Heart Sister Prostate Cancer Brother Social History Tobacco Use Smoking status: Former Current packs/day: 0.00 Average packs/day: 1 pack/day for 10.0 years (10.0 ttl pk-yrs) Types: Cigarettes Start date: 07/18/1961 Quit date: 07/18/1971 Years since quittin.1 Smokeless tobacco: Never Vaping Use Vaping status: Never Used Substance Use Topics Alcohol use: Yes Comment: occasional, 2 beers a week Drug use: No ROS Objective Blood pressure 156/72, pulse 84, temperature 36.1 C (97 F), resp. rate 18, weight 78.7 kg (173 lb 8oz), SpO2 99%. Physical Exam Constitutional: General: He is not in acute distress. Appearance: He is not toxic-appearing or diaphoretic. HENT: Head: Normocephalic and atraumatic. Pulmonary: Effort: Pulmonary effort is normal. No accessory muscle usage or respiratory distress. Musculoskeletal: Legs: Neurological: Mental Status: He is alert and oriented to person, place, and time. ASSESSMENT/PLAN: 1. Acute pain of right knee - ICD9: 719.46, ICD10: M25.561 Xray negative Treat for possible gout flair - XR KNEE GENERAL 4V AP BOTH/PA BOTH/LAT/MERC RIGHT IMPRESSION: No acute osseous findings Dictated by : MAYRA ODOM MD - PREDNISONE 20 MG TABLET Sumaya Alcazar APRN.GANG HEMSTITCHING MACHINE OPERATOR documented in this encounterHolzer Health System02-03-2025 Evaluation note* Diagnosis Onset Date Resolution Status Admit Date Anemia acute August 20, 2024 9:40am Atrial fibrillation chronic 2024 9:40am CAD (coronary artery disease) chroni c August 20, 2024 9:40am Cardiomyopathy chronic August 202024 9:40am Carotid stenosis, bilateral chronic August 20, 2024 9:40am Dyslipidemia chronic August 9:40am Essential (primary) hypertension chronic August 20 9:40am Mitral insufficiency chronic 2024 9:40am Lumbar compression fracture acute September 14, 2024 10:44am Status post laminectomy acute F ebruary 2024 10:44am Carotid stenosis, bilateral chronic November 14, 2024 12:34pm PAD (peripheral artery disease) chamber walker ruth November 14, 2024 12:34pm Subclavian arterial stenosis chronic November 14, 2024 12:34pm [facility] Work Phone: 1(425) 242-517802-03-2025 Evaluation note* Diagnosis Onset Date Resolution Status Admit Date Anemia acute August 20, 2024 9:40am Atrial fibrillation chronic [place]2024 9:40am CAD (coronary artery disease) chroni c August 20, 2024 9:40am Cardiomyopathy chronic August 202024 9:40am Carotid stenosis, bilateral chronic August 20, 2024 9:40am Dyslipidemia chronic August 9:40am Essential (primary) hypertension chronic August 20 9:40am Mitral insufficiency chronic ua2024 9:40am Lumbar compression fracture acute September 14, 2024 10:44am Status post laminectomy acute F ebruary 2024 10:44am Carotid stenosis, bilateral chronic November 14, 2024 12:34pm PAD (peripheral artery disease) chamber walker ruth November 14, 2024 12:34pm Subclavian arterial stenosis chronic November 14, 2024 12:34pm Atrial fibrillation chronic November 162024 1:57pm CAD (coronary artery disease) chroni c December 11, 2024 1:57pm Cardiomyopathy chronic December 11, 2024 1:57pm Carotid stenosis, bilateral chronic December 11, 2024 1:57pm Dyslipidemia chronic December 11 1:57pm Erectile dysfunction chronic December 11, 2024 1:57pm Essential (primary) hypertension chronic December 11, 2024 1 :57pm Mitral insufficiency chronic December 11, 2024 1:57pm [email or web address] Work Phone: 1(350) 883-306101-16-2025 Telephone encounter Note* Telephone Encounter - Phani Rajan APRN.CNP - 08/02/2024 10:25 AM EST The following approved medication requests have been transmitted electronically. Requested Prescriptions Pending Prescriptions Disp Refills allopurinol (ZYLOPRIM) 100 mg tablet 180 tablet 3 Sig: Take 1 tablet by mouth two times a day. Phani Rajan APRN.CNP [facility]01-16-2025 Miscellaneous Notes* Telephone Encounter - Phani Rajan APRN.CNP - 08/02/2024 10:25 AM EST The following approved medication requests have been transmitted electronically. Requested Prescriptions Pending Prescriptions Disp Refills allopurinol (ZYLOPRIM) 100 mg tablet 180 tablet 3 Sig: Take 1 tablet by mouth two times a day. Phani Rajan APRN.CNP * Telephone Encounter - Elif Godoy LPN - 08/02/2024 10:15 AM EST Last rx was med update and pt now needs a new rx. The patient has been identified by name and date of : Yes Caregiver verified no other encounters exist for this prescription request: Yes Caregiver confirmed with patient/requestor that no other refills are due, in the near future, with this provider at this time: Yes The last office visit in the department: 07/24/2024 Does the patient have a future office visit with this provider/department: Yes 01/25/2025 Requested Prescriptions Pending Prescriptions Disp Refills allopurinol (ZYLOPRIM) 100 mg tablet 180 tablet 3 Sig: Take 1 tablet by mouth two times a day. Elif Godoy LPN August 02, 2024 10:15 AM documented in this encounterHolzer Health System01-16-2025 Telephone encounter Note * Telephone Encounter - Elif Godoy LPN - 08/02/2024 10:15 AM EST Last rx was med update and pt now needs a new rx. The patient has been identified by name and date of : Yes Caregiver verified no other encounters exist for this prescription request: Yes Caregiver confirmed with patient/requestor that no other refills are due, in the near future, with this provider at this time: Yes The last office visit in the department: 07/24/2024 Does the patient have a future office visit with this provider/department: Yes 01/25/2025 Requested Prescriptions Pending Prescriptions Disp Refills allopurinol (ZYLOPRIM) 100 mg tablet 180 tablet 3 Sig: Take 1 tablet by mouth two times a day. Elif Godoy LPN August 02, 2024 10:15 AM [facility]01-[facility] History of Present illness Narrative* Federico Vigil MD - 07/24/2024 10:40 AM EST Chief Complaint Patient presents with: 6 Month Exam HPI Shelton Fox is a 78 year old male who presents here today for 6 month follow up. No bowel, Gi, or urinary issues. Taking Protonix 20 mg daily for dysphagia. Anemia: Follows with Hem/Onc. Edema: terry legs; L>R foot. Uses Lasix 40 mg once daily as needed. A-fib: Follows with [facility] Dr. Timothy Walker s/p ablation. Taking Eliquis 5 mg 1 pill twicedaily. HTN: No chest pains, dizziness, or SOB. Checks BP at home. Taking Lisinopril 5 mg daily and Coreg 6.25 mg BID. Follows with [facility]. Lipid/CAD/PAD: Follows with Vascular Surgeon Dr. Phi Caba. Taking Zocor 20 mg daily and ASA 81 mg daily. Tolerating the Zocor well. Tries to watch diet, feels he doesn't eat too badly. Lifts weights, golfs, and walks for exercise. Gout: Controlled, no flares. Taking Allopurinol [address] mg BID[address] 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 Takes Prednisone 2.5 mg daily. Pain: had back surgery 06/20/24 which was done by Dr. Pool with [facility]. He is following with Dr. Burger, Pain Management with [facility]. Someone he got a compression fracture to the back that occurred after surgery, unsure what caused that, no falls. He was doing great after the surgery but then the fracture occurred and has been in a lot of pain. Pain management is going to dokyphoplasty. He is using Oxycodone 5 mg once daily and Tylenol prn. Past medical history, appointments, medications, allergies reviewed. Previous Medical History PAST MEDICAL HISTORY Diagnosis Date Allergic rhinitis, cause unspecified Arthritis Atherosclerotic heart disease of [place] coronary artery without angina pectoris Atrial fibrillation (HCC) Avascular necrosis (HCC) Benign neoplasm of colon Bilateral extracranial carotid artery stenosis CAD (coronary artery disease) Cardiomyopathy (HCC) Chronic back pain Diverticulosis of colon (without [...] atrial fibrillation as well as typical atrial flutterwith Dr. Walker on 12/20/2022. Subclavian arterial stenosis (HCC) Unspecified atrial fibrillation (HCC) Previous Surgical History PAST SURGICAL HISTORY Procedure Laterality Date ARTHROPLASTY TOTAL SHOULDER 06/2011 Dr. Benitez. ARTHRP ACETBLR/PROX FEM PROSTC AGRFT/ALGRFT 04/2012 Dr. Wood> [facility]. ARTHRP KNE CONDYLE&PLATU MEDIAL&LAT COMPARTMENTS Right COLONOSCOPY FLX DX W/COLLJ SPEC WHEN PFRMD 05/[address] Mejia COLONOSCOPY SCREENING 05/20/2023 COLONOSCOPY W/BIOPSY SINGLE/MULTIPLE 08/24/2006 EGD 12/01/2020 ESOPHAGOGASTRODUODENOSCOPY TRANSORAL DIAGNOSTIC 05/2023 EYE SURGERY HX JOINT REPLACEMENT HX LAMINECTOMY,LUMBAR 06/20/2024 Dr. Pool with [facility] LEFT HEART CATH,PERCUTANEOUS 10/06/2022 OPEN REPAIR OF ROTATOR CUFF ACUTE 10/03/2008 Rotator cuff repair-right PAST SURGICAL HISTORY OF right knee scope PAST SURGICAL HISTORY OF cataract both eyes PAST SURGICAL HISTORY OF N/A 12/20/2022 EPS with Ablation, [facility] PAST SURGICAL HISTORY OF Right 12/26/2023 Endarterctomy carotid TONSILLECTOMY HX TONSILLECTOMY PRIMARY/SECONDARY <AGE 12 Tonsillectomy and adnoids Family History FAMILY HISTORY Problem Relation Age of Onset Cancer Mother KIDNEY Coronary Artery Disease Mother Lipids Mother Stroke Mother Heart disease Mother Cancer Father LUNG other (fibromyalgia) Sister Heart Sister Prostate Cancer Brother Patient Allergies ALLERGIES Allergen Reactions Plaquenil [Hydroxyc* Itching Spironolactone Other: See Comments Dizziness and severe headaches Indocin [Indomethac* Diarrhea Mobic [Meloxicam] Diarrhea Current Medications Current Outpatient Medications on File Prior to Visit Medication Sig allopurinol (ZYLOPRIM) 100 mg tablet Take 1 tablet by mouth two times a day. pantoprazole DR (PROTONIX) 20 mg tablet Take 1 tablet by mouth daily before breakfast. Take on empty stomach, 1/2 hr before meal. lisinopril (ZESTRIL) 5 mg tablet Take 5 mg by mouth every afternoon. acetaminophen (TYLENOL) 325 mg tablet Take by mouth. simvastatin (ZOCOR) 20 mg tablet Take 1 tablet by mouth once daily. polyethylene glycol 3350 17 gram packet Take 17 g by mouth once daily. Dissolve dose in 4 - 8 ounces of liquid and take as directed. aspirin 81 mg chewable tablet Take 81 mg by mouth once daily. Patient reports taking one 81mg chewable tablet by mouth once daily. Lactobacillus acidophilus (ACIDOPHILUS ORAL) Take 1 capsule by mouth once daily. vitamin B complex (SUPER B COMPLEX ORAL) Take 1 tablet by mouth once daily. Magnesium Oxide 500 mg tab Take 1 tablet by mouth once daily. furosemide (LASIX) 40 mg tablet Take 40 mg by mouth as needed. carvedilol (COREG) 6.25 mg tablet Take 1 tablet by mouth twice daily. multivit with minerals/lutein (MULTIVITAMIN 50 PLUS ORAL) Take 1 tablet by mouth once daily. apixaban (ELIQUIS) 5 mg tab(s) Take 5 mg by mouth twice daily. Melatonin 5 mg cap Take 5 mg by mouth at bedtime as needed. No current facility-administered medications on file prior to visit. Social History Social History Tobacco Use Smoking status: Former Current packs/day: 0.00 Average packs/day: 1 pack/day for 10.0 years (10.0 ttl pk-yrs) Types: Cigarettes Start date: 07/18/1961 Quit date: 07/18/1971 Years since quittin.0 Smokeless tobacco: Never Vaping Use Vaping status: Never Used Substance Use Topics Alcohol use: Yes Comment: occasional, 2 beers a week Drug use: No EXAM: BP 110/68 Pulse 74 Resp 18 Wt 77.7 kg (171 lb 4.8 oz) BMI 24.58 kg/m General Appearance: Well appearing, alert, in no acute distress, well-hydrated, well nourished.. Lungs: Lungs clear to auscultation. No wheezing, rhonchi, rales.. Heart: RRR without murmur, gallop, or rubs. No ectopy. Health Maintenance List Shingrix Vaccine(1 of 2) Never done DTaP,Tdap,Td Vaccine(2 - Td or Tdap) due on 10/05/2016 Advance Directive Discussion due on 07/18/2024 Depression Screening due on 01/19/2025 Anxiety Screening due on 01/19/2025 LDL Cholesterol due on 01/22/2025 Annual PCP Team Chronic Disease Visit due on 06/12/2025 BP Controlled (<130/80) due on 06/12/2025 Diabetes Screening due on 06/18/2027 Influenza Vaccine Completed RSV Vaccine Completed Hepatitis C Screening Completed Covid-19 Vaccine Completed Pneumococcal Vaccine: 50+ Completed Colorectal Cancer Screening Discontinued Data reviewed None ASSESSMENT/PLAN: 1. Hyperlipidemia, unspecified hyperlipidemia type - ICD9: 272.4, ICD10: E78.5 (primary diagnosis) - Controlled - Continue current medications - Counseled on healthy diet and regular exercise - Discussed need for and benefit of weight loss. BMI 24.58 kg/(m^2) 2. Primary hypertension - ICD9: 401.9, ICD10: I10 - Controlled - Continue current medications - Recommend home blood pressure monitoring, to bring results to next visit - Encouraged sodium restriction, DASH or Mediterranean diet - Recommend regular aerobic exercise 3. Gout involving toe of right foot, unspecified cause, unspecified chronicity - ICD9: 274.9, ICD10: M10.9 Stable Continue current medications. 4. PAD (peripheral artery disease) (HCC) - ICD9: 443.9, ICD10: I73.9 Continue current medications. Continue with Vascular 5. Atrial fibrillation, unspecified type (HCC) - ICD9: 427.31, ICD10: I48.91 Continue current medications. Continue with Cardio 6. Coronary artery disease involving [place] coronary artery of [place] heart with angina pectoris (HCC) - ICD9: 414.01, 413.9, ICD10: I25.119 Continue current medications. Continue with Cardio 7. Iron deficiency anemia, unspecified iron deficiency anemia type - ICD9: 280.9, ICD10: D50.9 Continue current medications. Continue with hem/onc 8. Inflammatory polyarthropathy (HCC) - ICD9: 714.9, ICD10: M06.4 Continue current medications. Continue with Rheum 9. Ischemic cardiomyopathy - ICD9: 414.8, ICD10: I25.5 Continue current medications. Continue with Cardio 10. Bilateral leg edema - ICD9: 782.3, ICD10: R60.0 Stable Continue current medications. 11. Cardiomyopathy, unspecified type (HCC) - ICD9: 425.4, ICD10: I42.9 Continue current medications. Continue with Cardio 12. Elevated glucose - ICD9: 790.29, ICD10: R73.09 Monitored with labs 13. Compression fracture spine Follow with Pain as planned Follow up in 6 months with fasting labs prior. I agree with the Chief Complaint, ROS, and Past Histories independently gathered by the clinical cell support operator and the remaining scribed note accurately describes my personal service to the patient. Medical Decision Making: Problems: Moderate: 2+ stable chronic illnesses Data: Unique test(s) ordered: 3+ Risk: Moderate: Drug management Medical Decision Making Level: 4 - Moderate Federico Vigil MD The documentation for this note was completed by Janneth Burkett MA acting as scribe for Federico Vigil MD. July 24, 2024 10:35 AM. Janneth Burkett MA documented in this encounterHolzer Health System01-07-2025 NoteHNO ID: [id number] Author: FEDERICO VIGIL MD Service: ? Author Type: Physician Type: Progress Notes Filed: 07/24/2024 11:42 Note Text: Chief Complaint Patient presents with: 6 Month Exam HPI Shelton Fox is a 78 year old male who presents here today for 6 month follow up. No bowel, Gi, or urinary issues. Taking Protonix 20 mg daily for dysphagia. Anemia: Follows with Hem/Onc. Edema: terry legs; L>R foot. Uses Lasix 40 mg once daily as needed. A-fib: Follows with [facility] Dr. Timothy Walker s/p ablation. Taking Eliquis 5 mg 1 pill twice daily. HTN: No chest pains, dizziness, or SOB. Checks BP at home. Taking Lisinopril 5 mg daily and Coreg 6.25 mg BID. Follows with [facility]. Lipid/CAD/PAD: Follows with Vascular Surgeon Dr. Phi Caba. Taking Zocor 20 mg daily and ASA 81 mg daily. Tolerating the Zocor well. Tries to watch diet, feels he doesn't eat too badly. Lifts weights, golfs, and walks for exercise. Gout: Controlled, no flares. Taking Allopurinol [address] mg BID[address] 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 Takes Prednisone 2.5 mg daily. Pain: had back surgery 06/20/24 which was done by Dr. Pool with [facility]. He is following with Dr. Burger, Pain Management with [facility]. Someone he got a compression fracture to the back that occurred after surgery, unsure what caused that, no falls. He was doing great after the surgery but then the fracture occurred and has been in a lot of pain. Pain management is going to do kyphoplasty. He is using Oxycodone 5 mg once daily and Tylenol prn. Past medical history, appointments, medications, allergies reviewed. Previous Medical History PAST MEDICAL HISTORY Diagnosis Date Allergic rhinitis, cause unspecified Arthritis Atherosclerotic heart disease of [place] coronary artery without angina pectoris Atrial fibrillation (HCC) Avascular necrosis (HCC) Benign neoplasm of colon Bilateral extracranial carotid artery stenosis CAD (coronary artery disease) Cardiomyopathy (HCC) Chronic back pain Diverticulosis of colon (without [...] ACETBLR/PROX FEM PROSTC AGRFT/ALGRFT 04/2012 Dr. Wood> [facility]. ARTHRP KNE CONDYLEANDPLATU MEDIALANDLAT COMPARTMENTS Right COLONOSCOPY FLX DX W/COLLJ SPEC WHEN PFRMD 05/[address] Mejia COLONOSCOPY SCREENING 05/20/2023 COLONOSCOPY W/BIOPSY SINGLE/MULTIPLE 08/24/2006 EGD 12/01/2020 ESOPHAGOGASTRODUODENOSCOPY TRANSORAL DIAGNOSTIC 05/2023 EYE SURGERY HX JOINT REPLACEMENT HX LAMINECTOMY,LUMBAR 06/20/2024 Dr. Pool with [facility] LEFT HEART CATH,PERCUTANEOUS 10/06/2022 OPEN REPAIR OF ROTATOR CUFF ACUTE 10/03/2008 Rotator cuff repair-right PAST SURGICAL HISTORY OF right knee scope PAST SURGICAL HISTORY OF cataract both eyes PAST SURGICAL HISTORY OF N/A 12/20/2022 EPS with Ablation, [facility] PAST SURGICAL HISTORY OF Right 12/26/2023 Endarterctomy carotid TONSILLECTOMY HX TONSILLECTOMY PRIMARY/SECONDARY Tonsillectomy and adnoids Family History FAMILY HISTORY Problem Relation Age of Onset Cancer Mother KIDNEY Coronary Artery Disease Mother Lipids Mother Stroke Mother Heart disease Mother Cancer Father LUNG other (fibromyalgia) Sister Heart Sister Prostate Cancer Brother Patient Allergies ALLERGIES Allergen Reactions Plaquenil [Hydroxyc* Itching Spironolactone Other: See Comments Dizziness and severe headaches Indocin [Indomethac* Diarrhea Mobic [Meloxicam] Diarrhea Current Medications Current Outpatient Medications on File Prior to Visit Medication Sig allopurinol (ZYLOPRIM) 100 mg tablet Take 1 tablet by mouth two times a day. pantoprazole DR (PROTONIX) 20 mg tablet Take 1 tablet by mouth daily before breakfast. Take on empty stomach, 1/2 hr before meal. lisinopril (ZESTRIL) 5 mg tablet Take 5 mg by mouth every afternoon. acetaminophen (TYLENOL) 325 mg tablet Take by mouth. simvastatin (ZOCOR) 20 mg tablet Take 1 tablet by mouth once daily. polyethylene glycol 3350 17 gram packet Take 17 g by mouth once daily (more content not included)...[facility]12-30-2024 Telephone encounter Note* Telephone Encounter - Raiza Segovia - 07/16/2024 10:40 AM EST Scheduled [facility]12-30-2024 Miscellaneous Notes* Telephone Encounter - Raiza Segovia - 07/16/2024 10:40 AM EST Scheduled * Telephone Encounter - Gina Malave LPN - 07/16/2024 9:27 AM EST Pt.needs scheduled for CBC/Iron studies. PSS please put on lab schedule for 2 @ 11:00 am Gina Malave LPN * Telephone Encounter - Guadalupe Sofia - 07/16/2024 9:11 AM EST Spouse called stating that patient had labs completed at [facility], she believes on 06/17. She states blood counts were low and is asking for an appointment or phone call. Please advise. documented in this encounterHolzer Health System12-30-2024 Telephone encounter Note * Telephone Encounter - Gina Malave LPN - 07/16/2024 9:27 AM EST Pt.needs scheduled for CBC/Iron studies. PSS please put on lab schedule for 2 @ 11:00 am Gina Malave LPN [facility]12-30-2024 Telephone encounter Note* Telephone Encounter - Guadalupe Sofia - 07/16/2024 9:11 AM EST Spouse called stating that patient had labs completed at [facility], she believes on 06/17. She states blood counts were low and is asking for an appointment or phone call. Please advise. [facility] Work Phone: [phone] 471-538012-16-2024 Telephone encounter Note* Telephone Encounter - Magali Diaz LPN - 07/02/2024 2:30 PM EST TC to pt. Left a detailed message on a secure line with updates. Magali Diaz LPN [facility]12-16-2024 Miscellaneous Notes* Telephone Encounter - Magali Diaz LPN - 07/02/2024 2:30 PM EST TC to pt. Left a detailed message on a secure line with updates. Magali Diaz LPN * Telephone Encounter - Ruth Perez APRN.CNP - 07/02/2024 2:27 PM EST Can you please call Ranulfo back and let him know that yes the patient should be taking allopurinol 100 mg twice daily, I updated the MAR. We are also agreeable with physical therapy plan of care. Please let me know if he has any additional questions. Thank you. Ruth Perez APRN.LIZET * Telephone Encounter - Barbara Roman RN - 07/02/2024 1:34 PM EST Ranulfo with [facility] Physical Therapy calling with the following: Physical Therapy Plan of Care will be: 2x/week for 4 weeks for functional mobility training. No call back needed if PCP agreeable to this plan. Ranulfo reports patient is taking allopurinol 100 mg twice a day and it is ordered for once a day. Recent OV note on 06/12/24 has documentation that pt takes it twice daily but it is not ordered that way. Ranulfo asking if he can be called back with clarification of frequency for this medication. [phone]. Thank you. documented in this encounterHolzer Health System12-16-2024 Telephone encounter Note * Telephone Encounter - Ruth Perez APRN.CNP - 07/02/2024 2:27 PM EST Can you please call Ranulfo back and let him know that yes the patient should be taking allopurinol 100 mg twice daily, I updated the MAR. We are also agreeable with physical therapy plan of care. Please let me know if he has any additional questions. Thank you. Ruth Perez APRN.GANG HEMSTITCHING MACHINE OPERATOR [facility]12-16-2024 Telephone encounter Note* Telephone Encounter - Brabara Roman RN - 07/02/2024 1:34 PM EST Ranulfo with [facility] Physical Therapy calling with the following: Physical Therapy Plan of Care will be: 2x/week for 4 weeks for functional mobility training. No call back needed if PCP agreeable to this plan. Ranulfo reports patient is taking allopurinol 100 mg twice a day and it is ordered for once a day. Recent OV note on 06/12/24 has documentation that pt takes it twice daily but it is not ordered that way. Ranulfo asking if he can be called back with clarification of frequency for this medication. [phone]. Thank you. [facility]12-13-2024 Telephone encounter Note* Telephone Encounter - Yasmeen Oliveros MA - 06/29/2024 1:55 PM EST Called and LM on confidential intake line with information below. If questions to contact office and ask to speak with Triage Nurse. Yasmeen Oliveros MA [facility]12-13-2024 Miscellaneous Notes* Telephone Encounter - Yasmeen Oliveros MA - 06/29/2024 1:55 PM EST Called and LM on confidential intake line with information below. If questions to contact office and ask to speak with Triage Nurse. Yasmeen Oliveros MA * Telephone Encounter - Federico Vigil MD - 06/29/2024 1:52 PM EST I am agreeable to follow for orders, and OK for delay in care order because [facility] is not available tosee patient until Tuesday Federico Vigil MD * Telephone Encounter - Evon Ross RN - 06/29/2024 12:16 PM EST Susy - [facility] HH- reports patient will discharge from [facility] today with orders for HHC PT OT. Dx: L5 compression fracture. Asking if pcp is agreeable to follow for orders, and asking for delay in care order because [facility] is not available to see patient until Tuesday. Please phone Susy with verbal: [phone] documented in this encounterHolzer Health System12-13-2024 Telephone encounter Note * Telephone Encounter - Federico Vigil MD - 06/29/2024 1:52 PM EST I am agreeable to follow for orders, and OK for delay in care order because [facility] is not available tosee patient until Tuesday Federico Vigil MD [facility]12-13-2024 Telephone encounter Note* Telephone Encounter - Evon Ross RN - 06/29/2024 12:16 PM EST Susy - [facility] HH- reports patient will discharge from [facility] today with orders for HHC PT OT. Dx: L5 compression fracture. Asking if pcp is agreeable to follow for orders, and asking for delay in care order because [facility] is not available to see patient until Tuesday. Please phone Susy with verbal: [phone] [facility]12-13-2024 [facility]12-12-2024 [facility]12-04-2024 [facility]12-02-2024 Telephone encounter Note* Telephone Encounter - Gt Joseph LPN - 06/18/2024 2:12 PM EST called asking that today labs be faxed to Dr. Pool at [facility]. Labs printed and faxed as requested. [facility]12-02-2024 Miscellaneous Notes* Telephone Encounter - Gt Joseph LPN - 06/18/2024 2:12 PM EST called asking that today labs be faxed to Dr. Pool at [facility]. Labs printed and faxed as requested. documented in this encounterHolzer Health System11-27-2024 Telephone encounter Note * Telephone Encounter - Ruth Perez APRN.CNP - 06/13/2024 2:27 PM EST Lab order has been placed. Thank you. Ruth Perez APRN.CNP [facility]11-27-2024 Miscellaneous Notes* Telephone Encounter - Ruth Perez APRN.CNP - 06/13/2024 2:27 PM EST Lab order has been placed. Thank you. Ruth Perez APRN.CNP * Telephone Encounter - Magali Diaz LPN - 06/13/2024 12:29 PM EST Patient notified of updates, verbalizes understanding of instructions. stated they will do labs on Tuesday. Magali Diaz LPN * Telephone Encounter - Ruth Perez APRN.CNP - 06/13/2024 12:14 PM EST Can you please call the patient's and let her know that I am currently in the middle of printing off all of his test results. I would not be concerned with low sodium and CHF. When sodium is high it will cause you to hold onto water which can make CHF worse. I would like him to try to get someextra sodium in the diet. We can recheck labs on Tuesday or Tuesday? Ruth Perez APRN.LIZET * Telephone Encounter - Magali Chairez RN - 06/13/2024 10:29 AM EST See note below. Pt's Ry calling as she got a call from pt's spine surgeon's office regarding pt's low Sodium level. She states with pt's history of CHF she is wondering if they need to do anything or repeat the lab prior to his surgery which is scheduled for next 06/20. She states pt wasseen by Ruth yesterday and to call if they had any issues come up prior to surgery. She states pthas not gained any weight and she doesn't notice any swelling except maybe some in his abdomen. Shewasn't sure if this was a question for his safety physician or if Ruth can answer questions. * Telephone Encounter - Evon Ross, RN - 06/13/2024 9:23 AM EST Susy- Dr. Pool's office- [employer] [facility]- phoned to let Ruth know, labs and EKG were completed yesterday. The lab results are in epic as outside labs. Susy wants to make sure you look at the Sodium lab- [id number] yesterday. Susy is going to fax the EKG results to your office today. Dr. Pool's fax # [phone] documented in this encounterHolzer Health System11-27-2024 Telephone encounter Note * Telephone Encounter - Magali Diaz LPN - 06/13/2024 12:29 PM EST Patient notified of updates, verbalizes understanding of instructions. stated they will do labs on Tuesday. Magali Diaz LPN [facility]11-27-2024 Telephone encounter Note* Telephone Encounter - Ruth Perez APRN.LIZET - 06/13/2024 12:14 PM EST Can you please call the patient's and let her know that I am currently in the middle of printing off all of his test results. I would not be concerned with low sodium and CHF. When sodium is high it will cause you to hold onto water which can make CHF worse. I would like him to try to get someextra sodium in the diet. We can recheck labs on Tuesday or Tuesday? Ruth Perez APRN.GANG HEMSTITCHING MACHINE OPERATOR [facility]11-27-2024 Telephone encounter Note* Telephone Encounter - Magali Chairez RN - 06/13/2024 10:29 AM EST See note below. Pt's Ry calling as she got a call from pt's spine surgeon's office regarding pt's low Sodium level. She states with pt's history of CHF she is wondering if they need to do anything or repeat the lab prior to his surgery which is scheduled for next 06/20. She states pt wasseen by Ruth yesterday and to call if they had any issues come up prior to surgery. She states pthas not gained any weight and she doesn't notice any swelling except maybe some in his abdomen. Shewasn't sure if this was a question for his safety physician or if Ruth can answer questions. [facility]11-27-[facility] Telephone encounter Note* Telephone Encounter - Evon Ross RN - 06/13/2024 9:23 AM EST Susy- Dr. Pool's office- [employer] [facility]- phoned to let Ruth know, labs and EKG were completed yesterday. The lab results are in epic as outside labs. Susy wants to make sure you look at the Sodium lab- [id number] yesterday. Susy is going to fax the EKG results to your office today. Dr. Pool's fax # [phone] [facility]11-26-2024 Instructions* Patient Instructions* Ruth Perez APRN.CNP - 06/12/2024 10:18 AM EST Get labs and EKG completed Preop forms will be completed Keep scheduled appointments with specialist Continue to take all medication as prescribed Follow up as needed. documented in this encounterHolzer Health System11-26-2024 History of Present illness Narrative* Ruth Perez APRN.CNP - 06/12/2024 10:00 AM EST This is a 78 year old male who presents today with: Patient presents with: Pre-Op Exam HISTORY OF PRESENT ILLNESS: Shelton Fox is a 78 year old male. Patient presents with: Pre-Op Exam Here in the office for preop clearance. Will be having lumbar laminectomy L4-L5, with Dr. Pool at [facility] On June 20, 2024. Will be getting labs and EKG at [facility] today. Pain has been severe, pain radiating into the legs, worse on the right. Feet will go numb. Seeing Dr. Yesenia dawsonain management today to help with medication management. Difficulty getting comfortable. Taking Perocet 5/325 mg. Finished prednisone. Taking Tylenol 1000 mg every 8 hours. Muscle relaxant was not helpful. GERD: Has had a EGD completed in the past. Taking Protonix 20 mg daily. A-fib: Following with cardiology, Dr. Hanna at [facility]. Taking Eliquis 5 mg twice daily. Surgeon recommending off Eliquis 4 days prior and 3 days post op. Needs cardiology approval. HTN: Taking Coreg 6.25 mg twice daily and lisinopril 5 mg daily. Denies chest pain, palpitations, dizziness, or edema. Not currently checking blood pressure at home. Edema: Taking Lasix 40 mg daily as needed. Gout: Taking allopurinol 100 mg twice daily. Lipid/CAD: Taking Zocor 20 mg daily and Plavix 75 mg daily. History of RATNA, has had infusions in the past. 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 Walker on 12/20/2022. Subclavian arterial stenosis (HCC) Unspecified atrial fibrillation (HCC) PAST SURGICAL HISTORY Procedure Laterality Date ARTHROPLASTY TOTAL SHOULDER 06/2011 Dr. Benitez. ARTHRP ACETBLR/PROX FEM PROSTC AGRFT/ALGRFT 04/2012 Dr. Wodo> [facility]. ARTHRP KNE CONDYLE&PLATU MEDIAL&LAT COMPARTMENTS Right [...] HISTORY OF N/A 12/20/2022 EPS with Ablation, [facility] PAST SURGICAL HISTORY OF Right 12/26/2023 Endarterctomy carotid TONSILLECTOMY HX TONSILLECTOMY PRIMARY/SECONDARY <AGE 12 Tonsillectomy and adnoids ALLERGIES Plaquenil [Hydroxychloroquine], Spironolactone, Indocin [Indomethacin Sodium], and Mobic [Meloxicam] MEDICATIONS Current Outpatient Medications Medication Sig allopurinol (ZYLOPRIM) 100 mg tablet Take 1 tablet by mouth once daily. pantoprazole DR (PROTONIX) 20 mg tablet Take 1 tablet by mouth daily before breakfast. Take on empty stomach, 1/2 hr before meal. lisinopril (ZESTRIL) 5 mg tablet Take 5 mg by mouth every afternoon. acetaminophen (TYLENOL) 325 mg tablet Take by mouth. simvastatin (ZOCOR) 20 mg tablet Take 1 tablet by mouth once daily. polyethylene glycol 3350 17 gram packet Take 17 g by mouth once daily. Dissolve dose in 4 - 8 ounces of liquid and take as directed. aspirin 81 mg chewable tablet Take 81 mg by mouth once daily. Patient reports taking one 81mg chewable tablet by mouth once daily. Lactobacillus acidophilus (ACIDOPHILUS ORAL) Take 1 capsule by mouth once daily. vitamin B complex (SUPER B COMPLEX ORAL) Take 1 tablet by mouth once daily. Magnesium Oxide 500 mg tab Take 1 tablet by mouth once daily. furosemide (LASIX) 40 mg tablet Take 40 mg by mouth as needed. carvedilol (COREG) 6.25 mg tablet Take 1 tablet by mouth twice daily. multivit with minerals/lutein (MULTIVITAMIN 50 PLUS ORAL) Take 1 tablet by mouth once daily. apixaban (ELIQUIS) 5 mg tab(s) Take 5 mg by mouth twice daily. Melatonin 5 mg cap Take 5 mg by mouth at bedtime as needed. No current facility-administered medications for this visit. FAMILY HISTORY Problem Relation Age of Onset Cancer Mother KIDNEY Coronary Artery Disease Mother Lipids Mother Stroke Mother Heart disease Mother Cancer Father LUNG other (fibromyalgia) Sister Heart Sister Prostate Cancer Brother Social History Tobacco Use Smoking status: Former Current packs/day: 0.00 Average packs/day: 1 pack/day for 10.0 years (10.0 ttl pk-yrs) Types: Cigarettes Start date: 07/18/1961 Quit date: 07/18/1971 Years since quittin.9 Smokeless tobacco: Never Vaping Use Vaping status: Never Used Substance Use Topics Alcohol use: Yes Comment: occasional, 2 beers a week Drug use: No REVIEW OF SYSTEMS [...] depression, anxiety, or suicidal ideation. EXAM: BP 120/60 Pulse 72 Resp 20 SpO2 98% PHYSICAL EXAM: General Appearance: Sad appearing, tearful, alert, in no acute distress, well- hydrated, well nourished. Skin: Skin color, texture, turgor normal, no suspicious rashes or lesions. Head: Normocephalic, no masses, lesions, tenderness or abnormalities. Eyes: Anicteric sclera. Extraocular movements are intact. Lungs: Lungs clear to auscultation. No wheezing, rhonchi, rales. Heart: RRR without murmur, gallop, or rubs. No ectopy. Extremities: No deformities, edema, skin discoloration, clubbing or cyanosis. Good capillary refill. Musculoskeletal: Low back pain severe, unable to full assess, in wheelchair. Peripheral Pulses: Normal, Capillary refill <2secs, strong peripheral pulses, Pulses palpable. Neurologic: In Wheelchair. Reflexes normal and symmetric. Sensation grossly intact. ASSESSMENT/PLAN: 1. Preop examination - ICD9: V72.84, ICD10: Z01.818 (primary diagnosis) - Complete preop testing at [facility] - Preop forms will be completed once test results are reviewd, forms will be faxed back to Dr. Pool. - Keep scheduled surgery date - Due to Afib will need anticoagulation instructions/preference from safety physician. 2. Chronic 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 - ICD9: 724.2, 338.29, ICD10: M54.50, G89.29 - Same plan as #1 3. GERD without esophagitis - ICD9: 530.81, ICD10: K21.9 - Stable, continue take current medication. 4. BENIGN HYPERTENSION - ICD9: 401.1, ICD10: I10 - Controlled - Continue current medications - Recommend home blood pressure monitoring, to bring results to next visit - Encouraged sodium restriction, DASH or Mediterranean diet - Recommend regular aerobic exercise 5. Paroxysmal atrial fibrillation (HCC) - ICD9: 427.31, ICD10: I48.0 - Stable, continue to take current medication. - Keep scheduled appointments with cardiology. 6. Coronary artery disease involving [place] coronary artery of [place] heart with angina pectoris (HCC) - ICD9: 414.01, 413.9, ICD10: I25.119 - Same plan as #5. 7. Mixed hyperlipidemia - ICD9: 272.2, ICD10: E78.2 - Controlled - Continue current medications - Counseled on healthy diet and regular exercise 8. Gout involving toe of right foot, unspecified cause, unspecified chronicity - ICD9: 274.9, ICD10: M10.9 - Stable, continue to take current medication. 9. Anemia, unspecified type - ICD9: 285.9, ICD10: D64.9 - Stable 10. Bilateral leg edema - ICD9: 782.3, ICD10: R60.0 - Stable, continue with lasix prn. Follow-up pending test results or sooner as needed. Discussed treatment plan and patient voices understanding. Patient's questions answered appropriately. Medications and potential side effects were discussed and patient voices understanding. Ruth Perez APRN.LIZET This note was partially generated using [employer] voice recognition system. Note was reviewed for accuracy. There may be minor misspellings or grammar miscues with [employer] voice recognition. documented in this encounterHolzer Health System11-26-2024 NoteHNO ID: [id number] Author: RUTH PEREZ APRN.GANG HEMSTITCHING MACHINE OPERATOR Service: ? Author Type: Nurse Practitioner Type: Progress Notes Filed: 06/12/2024 13:39 Note Text: This is a 78 year old male who presents today with: Patient presents with: Pre-Op Exam HISTORY OF PRESENT ILLNESS: Shelton Fox is a 78 year old male. Patient presents with: Pre-Op Exam Here in the office for preop clearance. Will be having lumbar laminectomy L4-L5, with Dr. Pool at [facility] On June 20, 2024. Will be getting labs and EKG at [facility] today. Pain has been severe, pain radiating into the legs, worse on the right. Feet will go numb. Seeing Dr. Patterson at pain management today to help with medication management. Difficulty getting comfortable. Taking Perocet 5/325 mg. Finished prednisone. Taking Tylenol 1000 mg every 8 hours. Muscle relaxant was not helpful. GERD: Has had a EGD completed in the past. Taking Protonix 20 mg daily. A-fib: Following with cardiology, Dr. Hanna at [facility]. Taking Eliquis 5 mg twice daily. Surgeon recommending off Eliquis 4 days prior and 3 days post op. Needs cardiology approval. HTN: Taking Coreg 6.25 mg twice daily and lisinopril 5 mg daily. Denies chest pain, palpitations, dizziness, or edema. Not currently checking blood pressure at home. Edema: Taking Lasix 40 mg daily as needed. Gout: Taking allopurinol 100 mg twice daily. Lipid/CAD: Taking Zocor 20 mg daily and Plavix 75 mg daily. History of RATNA, has had infusions in the past. PAST MEDICAL HISTORY: PAST MEDICAL HISTORY Diagnosis Date Allergic rhinitis, cause unspecified Arthritis Atherosclerotic heart disease of [place] coronary artery without angina pectoris Atrial fibrillation (HCC) Avascular necrosis (HCC) Benign neoplasm of colon Bilateral extracranial carotid artery stenosis CAD (coronary artery disease) Cardiomyopathy (HCC) Chronic back pain Diverticulosis of colon (without [...] ACETBLR/PROX FEM PROSTC AGRFT/ALGRFT 04/2012 Dr. Wood> [facility] ARTHRP KNE CONDYLEANDPLATU MEDIALANDLAT COMPARTMENTS Right [...] HISTORY OF N/A 12/20/2022 EPS with Ablation, [facility] PAST SURGICAL HISTORY OF Right 12/26/2023 Endarterctomy carotid TONSILLECTOMY HX TONSILLECTOMY PRIMARY/SECONDARY Tonsillectomy and adnoids ALLERGIES Plaquenil [Hydroxychloroquine], Spironolactone, Indocin [Indomethacin Sodium], and Mobic [Meloxicam] MEDICATIONS Current Outpatient Medications Medication Sig allopurinol (ZYLOPRIM) 100 mg tablet Take 1 tablet by mouth once daily. pantoprazole DR (PROTONIX) 20 mg tablet Take 1 tablet by mouth daily before breakfast. Take on empty stomach, 1/2 hr before meal. lisinopril (ZESTRIL) 5 mg tablet Take 5 mg by mouth every afternoon. acetaminophen (TYLENOL) 325 mg tablet Take by mouth. simvastatin (ZOCOR) 20 mg tablet Take 1 tablet by mouth once daily. polyethylene glycol 3350 17 gram packet Take 17 g by mouth once daily. Dissolve dose in 4 - 8 ounces of liquid and take as directed. aspirin 81 mg chewable tablet Take 81 mg by mouth once daily. Patient reports taking one 81mg chewable tablet by mouth once daily. Lactobacillus acidophilus (ACIDOPHILUS ORAL) Take 1 capsule by mouth once daily. vitamin B complex (SUPER B COMPLEX ORAL) Take 1 tablet by mouth once daily. Magnesium Oxide 500 mg tab Take 1 tablet by mouth once daily. furosemide (LASIX) 40 mg tablet Take 40 mg by mouth as needed. carvedilol (COREG) 6.25 mg tablet Take 1 tablet by mouth twice daily. multivit with minerals/lutein (MULTIVITAMIN 50 PLUS ORAL) Take 1 tablet by mouth once daily. apixaban (ELIQUIS) 5 (more content not included)...[facility] 06-11-2024 Telephone encounter Note* Telephone Encounter - Magali Diaz LPN - 06/11/2024 8:58 AM EST Pt has a pre - op appt with [facility] on 06/12/24 Magali Diaz LPN [facility]11-[facility] Miscellaneous Notes* Telephone Encounter - Magali Diaz LPN - 06/11/2024 8:58 AM EST Pt has a pre - op appt with [facility] on 06/12/24 Magali Diaz LPN * Telephone Encounter - Federico Vigil MD - 06/08/2024 5:08 PM EST He needs appt in the next few days to complete this. His last routine check was in January. Surgery scheduled for Jun 20. Federico Vigil MD * Telephone Encounter - Yasmeen Oliveros MA - 06/07/2024 2:20 PM EST Type of form: Medical Clearance for surgery from [facility] for Lumbar Laminectomy (L4-L5) on 06/20/24. Form received via fax When form is completed, Fax form to [phone] Form has been forwarded to Physician Desk: Dr. Yaritza Oliveros MA documented in this encounterHolzer Health System11-22-2024 Telephone encounter Note * Telephone Encounter - Federico Vigil MD - 06/08/2024 5:08 PM EST He needs appt in the next few days to complete this. His last routine check was in January. Surgery scheduled for Jun 20. Federico Vigil MD [facility] Telephone encounter Note* Telephone Encounter - Yasmeen Oliveros MA - 06/07/2024 2:20 PM EST Type of form: Medical Clearance for surgery from [facility] for Lumbar Laminectomy (L4-L5) on 06/20/24. Form received via fax When form is completed, Fax form to [phone] Form has been forwarded to Physician Desk: Dr. Yaritza Oliveros MA [facility]11-14-[facility] Telephone encounter Note* Telephone Encounter - Ruth Perez APRN.CNP - 05/31/2024 10:41 AM EST The following approved medication requests have been transmitted electronically. Requested Prescriptions Signed Prescriptions Disp Refills cyclobenzaprine (FLEXERIL) 10 mg tablet 30 tablet 0 Sig: Take 1 tablet by mouth three times a day as needed for up to 10 days. Ruth Perez APRN.CNP [facility]11-14-[facility]24 Miscellaneous Notes* Telephone Encounter - Ruth Perez APRN.CNP - 05/31/2024 10:41 AM EST The following approved medication requests have been transmitted electronically. Requested Prescriptions Signed Prescriptions Disp Refills cyclobenzaprine (FLEXERIL) 10 mg tablet 30 tablet 0 Sig: Take 1 tablet by mouth three times a day as needed for up to 10 days. Ruth Perez APRN.CNP * Telephone Encounter - Yasmeen Oliveros MA - 05/31/2024 10:16 AM EST Please see message and advise. Yasmeen Oliveros MA documented in this encounterHolzer Health System11-14-2024 Telephone encounter Note * Telephone Encounter - Yasmeen Oliveros MA - 05/31/2024 10:16 AM EST Please see message and advise. Yasmeen Oliveros MA [facility]11-13-[facility] Instructions* Patient Instructions* Ruth Perez APRN.CNP - 05/30/2024 2:50 PM EST Kenalog injection given today (Steroid) Start prednisone taper tomorrow, take with food May use Percocet as needed for moderate to severe pain May use additional tylenol as needed Continue supportive care at home May apply heat and gentle stretching Keep scheduled appointment next week with pain management Follow up as needed. documented in this encounterHolzer Health System11-13-2024 History of Present illness Narrative* Ruth Perez APRN.CNP - 05/30/2024 2:40 PM EST This is a 78 year old male who presents today with: Patient presents with: Acute Visit: Low back pain HISTORY OF PRESENT ILLNESS: Shelton Fox is a 78 year old male. Patient presents with: Acute Visit: Low back pain Here in the office for back pain. Refers that he was at the gym on Tuesday did a twisting motion anddeveloped a sharp pain. Had MRI lumbar yesterday for pain management, has had injections in the past. Follow up next week. Taking Tylenol as needed which is not helpful. Low back pain. No numbness ortinging in the legs. No loss of bowel/bladder or saddle anesthesia. 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 Walker on 12/20/2022. Subclavian arterial stenosis (HCC) Unspecified atrial fibrillation (HCC) PAST SURGICAL HISTORY Procedure Laterality Date ARTHROPLASTY TOTAL SHOULDER 06/2011 Dr. Benitez. ARTHRP ACETBLR/PROX FEM PROSTC AGRFT/ALGRFT 04/2012 Dr. Wood> [facility]. ARTHRP KNE CONDYLE&PLATU MEDIAL&LAT COMPARTMENTS Right COLONOSCOPY [...] HISTORY OF N/A 12/20/2022 EPS with Ablation, [facility] PAST SURGICAL HISTORY OF Right 12/26/2023 Endarterctomy carotid TONSILLECTOMY HX TONSILLECTOMY PRIMARY/SECONDARY <AGE 12 Tonsillectomy and adnoids ALLERGIES Plaquenil [Hydroxychloroquine], Spironolactone, Indocin [Indomethacin Sodium], and Mobic [Meloxicam] MEDICATIONS Current Outpatient Medications Medication Sig doxycycline (VIBRA-TABS) 100 mg tablet Take 1 tablet by mouth two times a day for 10 days. benzonatate (TESSALON PERLES) 100 mg capsule Take 1 capsule by mouth three times a day as needed for up to 10 days. allopurinol (ZYLOPRIM) 100 mg tablet Take 1 tablet by mouth once daily. pantoprazole DR (PROTONIX) 20 mg tablet Take 1 tablet by mouth daily before breakfast. Take on empty stomach, 1/2 hr before meal. lisinopril (ZESTRIL) 5 mg tablet Take 5 mg by mouth every afternoon. acetaminophen (TYLENOL) 325 mg tablet Take by mouth. simvastatin (ZOCOR) 20 mg tablet Take 1 tablet by mouth once daily. polyethylene glycol 3350 17 gram packet Take 17 g by mouth once daily. Dissolve dose in 4 - 8 ounces of liquid and take as directed. aspirin 81 mg chewable tablet Take 81 mg by mouth once daily. Patient reports taking one 81mg chewable tablet by mouth once daily. Lactobacillus acidophilus (ACIDOPHILUS ORAL) Take 1 capsule by mouth once daily. vitamin B complex (SUPER B COMPLEX ORAL) Take 1 tablet by mouth once daily. Magnesium Oxide 500 mg tab Take 1 tablet by mouth once daily. furosemide (LASIX) 40 mg tablet Take 40 mg by mouth as needed. carvedilol (COREG) 6.25 mg tablet Take 1 tablet by mouth twice daily. multivit with minerals/lutein (MULTIVITAMIN 50 PLUS ORAL) Take 1 tablet by mouth once daily. apixaban (ELIQUIS) 5 mg tab(s) Take 5 mg by mouth twice daily. Melatonin 5 mg cap Take 5 mg by mouth at bedtime as needed. No current facility-administered medications for this visit. FAMILY HISTORY Problem Relation Age of Onset Cancer Mother KIDNEY Coronary Artery Disease Mother Lipids Mother Stroke Mother Heart disease Mother Cancer Father LUNG other (fibromyalgia) Sister Heart Sister Prostate Cancer Brother Social History Tobacco Use Smoking status: Former Current packs/day: 0.00 Average packs/day: 1 pack/day for 10.0 years (10.0 ttl pk-yrs) Types: Cigarettes Start date: 07/18/1961 Quit date: 07/18/1971 Years since quittin.9 Smokeless tobacco: Never Vaping Use Vaping status: Never Used Substance Use Topics Alcohol use: Yes Comment: occasional, 2 beers a week Drug use: No REVIEW OF SYSTEMS [...] of dysuria, frequency or incontinence MUSCULOSKELETAL: + Back Pain SKIN: Negative for lesions, rash, and itching ENDOCRINE: Negative for cold or heat intolerance, polyuria, polydipsia and goiter NEURO: No history of headaches, syncope, paralysis, seizures or tremors MOOD: Negative for depression, anxiety, or suicidal ideation. EXAM: BP 102/68 Pulse 75 Resp 16 Wt 80.7 kg (177 lb 14.6 oz) SpO2 98% BMI 25.53 kg/m PHYSICAL EXAM: General Appearance: Well appearing, alert, in no acute distress, well-hydrated, well nourished. Skin: Skin color, texture, turgor normal, no suspicious rashes or lesions. Head: Normocephalic, no masses, lesions, tenderness or abnormalities. Eyes: Anicteric sclera. Extraocular movements are intact. Extremities: No deformities, edema, skin discoloration, clubbing or cyanosis. Good capillary refill. Musculoskeletal: Reduced ROM, very painful with position changes, lumbar spine tender with palpation. Muscle knot noted in low right side of back. Peripheral Pulses: Normal, Capillary refill <2secs, strong peripheral pulses, Pulses palpable. Neurologic: Gait normal. Reflexes normal and symmetric. Sensation grossly intact. ASSESSMENT/PLAN: 1. Chronic 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 - ICD9: 724.2, 338.29, ICD10: M54.50, G89.29 - Kenalog injection given in office today - Start Prednisone taper tomorrow - May use Additional tylenol as needed for pain. - May use Oxycodone for moderate to severe pain. - Continue supportive care at home. May apply heat/ice to the area, gentle stretching. - Keep scheduled appointment with pain management next week. - Red flag symptoms given to patient and , they both verbalized understanding when to seek care. - TRIAMCINOLONE ACETONIDE 40 MG/ML SUSPENSION FOR INJECTION - PREDNISONE 10 MG TABLET - OXYCODONE-ACETAMINOPHEN 5 MG-325 MG TABLET Follow-up as needed. Discussed treatment plan and patient voices understanding. Patient's questions answered appropriately. Medications and potential side effects were discussed and patient voices understanding. Ruth Perez APRN.CNP This note was partially generated using [employer] voice recognition system. Note was reviewed for accuracy. There may be minor misspellings or grammar miscues with [employer] voice recognition. PDMP website checked and validated. All prescriptions have been APPROPRIATELY filled. No suspiciousactivity was identified. 05/30/2024 by Ruth Perez APRN.LIZET documented in this encounterHolzer Health System11-13-2024 NoteHNO ID: [id number] Author: RUTH PEREZ APRN.CNP Service: ? Author Type: Nurse Practitioner Type: Progress Notes Filed: 05/30/2024 16:35 Note Text: This is a 78 year old male who presents today with: Patient presents with: Acute Visit: Low back pain HISTORY OF PRESENT ILLNESS: Shelton Fox is a 78 year old male. Patient presents with: Acute Visit: Low back pain Here in the office for back pain. Refers that he was at the gym on Tuesday did a twisting motion and developed a sharp pain. Had MRI lumbar yesterday for pain management, has had injections in the past. Follow up next week. Taking Tylenol as needed which is not helpful. Low back pain. No numbness or tinging in the legs. No loss of bowel/bladder or saddle anesthesia. PAST MEDICAL HISTORY: PAST MEDICAL HISTORY Diagnosis Date Allergic rhinitis, cause unspecified Arthritis Atherosclerotic heart disease of [place] coronary artery without angina pectoris Atrial fibrillation (HCC) Avascular necrosis (HCC) Benign neoplasm of colon Bilateral extracranial carotid artery stenosis CAD (coronary artery disease) Cardiomyopathy (HCC) Chronic back pain Diverticulosis of colon (without [...] ACETBLR/PROX FEM PROSTC AGRFT/ALGRFT 04/2012 Dr. Wood> [facility] ARTHRP KNE CONDYLEANDPLATU MEDIALANDLAT COMPARTMENTS Right [...] HISTORY OF N/A 12/20/2022 EPS with Ablation, [facility] PAST SURGICAL HISTORY OF Right 12/26/2023 Endarterctomy carotid TONSILLECTOMY HX TONSILLECTOMY PRIMARY/SECONDARY Tonsillectomy and adnoids ALLERGIES Plaquenil [Hydroxychloroquine], Spironolactone, Indocin [Indomethacin Sodium], and Mobic [Meloxicam] MEDICATIONS Current Outpatient Medications Medication Sig doxycycline (VIBRA-TABS) 100 mg tablet Take 1 tablet by mouth two times a day for 10 days. benzonatate (TESSALON PERLES) 100 mg capsule Take 1 capsule by mouth three times a day as needed for up to 10 days. allopurinol (ZYLOPRIM) 100 mg tablet Take 1 tablet by mouth once daily. pantoprazole DR (PROTONIX) 20 mg tablet Take 1 tablet by mouth daily before breakfast. Take on empty stomach, 1/2 hr before meal. lisinopril (ZESTRIL) 5 mg tablet Take 5 mg by mouth every afternoon. acetaminophen (TYLENOL) 325 mg tablet Take by mouth. simvastatin (ZOCOR) 20 mg tablet Take 1 tablet by mouth once daily. polyethylene glycol 3350 17 gram packet Take 17 g by mouth once daily. Dissolve dose in 4 - 8 ounces of liquid and take as directed. aspirin 81 mg chewable tablet Take 81 mg by mouth once daily. Patient reports taking one 81mg chewable tablet by mouth once daily. Lactobacillus acidophilus (ACIDOPHILUS ORAL) Take 1 capsule by mouth once daily. vitamin B complex (SUPER B COMPLEX ORAL) Take 1 tablet by mouth once daily. Magnesium Oxide 500 mg tab Take 1 tablet by mouth once daily. furosemide (LASIX) 40 mg tablet Take 40 mg by mouth as needed. carvedilol (COREG) 6.25 mg tablet Take 1 tablet by mouth twice daily. multivit with minerals/lutein (MULTIVITAMIN 50 PLUS ORAL) Take 1 tablet by mouth once daily. apixaban (ELIQUIS) 5 mg tab(s) Take 5 mg by mouth twice daily. Melatonin 5 mg cap Take 5 mg by mouth at bedtime as needed. No current facility-administered medications for this visit. FAMILY HISTORY Problem Relation Age of Onset Cancer Mother KIDNEY Coronary Artery Disease Mother Lipids Mother Stroke Mother Heart disease Mother Cancer Father LUNG other (fibromyalgia) Sister Heart Sister Prostate Cancer Brother Social History Tobacco Use Smoking status: Former Current packs/day: 0.00 Average packs/day: 1 (more content not included)...[facility] 05-24-2024 History of Present illness Narrative* Ruth Perez APRN.[facility] - 05/24/2024 9:20 AM EST This is a 78 year old male who presents today with: Patient presents with: Acute Visit: lingering cough and cold HISTORY OF PRESENT ILLNESS: Shelton Fox is a 78 year old male. Patient presents with: Acute Visit: lingering cough and cold Here in the office for cough. Symptoms started about 3 weeks ago. Initially had fever, sore throat,and cough. Has been using OTC cold and cough medications. Symptoms started to improve then worsening with sinus congestion, head pressure, and cough. Cough is dry. No SOB or difficulty breathing. 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 Walker on 12/20/2022. Subclavian arterial stenosis (HCC) Unspecified atrial fibrillation (HCC) PAST SURGICAL HISTORY Procedure Laterality Date ARTHROPLASTY TOTAL SHOULDER 06/2011 Dr. Benitez. ARTHRP ACETBLR/PROX FEM PROSTC AGRFT/ALGRFT 04/2012 Dr. Wood> [facility]. ARTHRP KNE CONDYLE&PLATU MEDIAL&LAT COMPARTMENTS Right COLONOSCOPY [...] HISTORY OF N/A 12/20/2022 EPS with Ablation, [facility] PAST SURGICAL HISTORY OF Right 12/26/2023 Endarterctomy carotid TONSILLECTOMY HX TONSILLECTOMY PRIMARY/SECONDARY <AGE 12 Tonsillectomy and adnoids ALLERGIES Plaquenil [Hydroxychloroquine], Spironolactone, Indocin [Indomethacin Sodium], and Mobic [Meloxicam] MEDICATIONS Current Outpatient Medications Medication Sig allopurinol (ZYLOPRIM) 100 mg tablet Take 1 tablet by mouth once daily. pantoprazole DR (PROTONIX) 20 mg tablet Take 1 tablet by mouth daily before breakfast. Take on empty stomach, 1/2 hr before meal. lisinopril (ZESTRIL) 5 mg tablet Take 5 mg by mouth every afternoon. acetaminophen (TYLENOL) 325 mg tablet Take by mouth. simvastatin (ZOCOR) 20 mg tablet Take 1 tablet by mouth once daily. polyethylene glycol 3350 17 gram packet Take 17 g by mouth once daily. Dissolve dose in 4 - 8 ounces of liquid and take as directed. aspirin 81 mg chewable tablet Take 81 mg by mouth once daily. Patient reports taking one 81mg chewable tablet by mouth once daily. Lactobacillus acidophilus (ACIDOPHILUS ORAL) Take 1 capsule by mouth once daily. vitamin B complex (SUPER B COMPLEX ORAL) Take 1 tablet by mouth once daily. Magnesium Oxide 500 mg tab Take 1 tablet by mouth once daily. furosemide (LASIX) 40 mg tablet Take 40 mg by mouth as needed. carvedilol (COREG) 6.25 mg tablet Take 1 tablet by mouth twice daily. multivit with minerals/lutein (MULTIVITAMIN 50 PLUS ORAL) Take 1 tablet by mouth once daily. apixaban (ELIQUIS) 5 mg tab(s) Take 5 mg by mouth twice daily. Melatonin 5 mg cap Take 5 mg by mouth at bedtime as needed. No current facility-administered medications for this visit. FAMILY HISTORY Problem Relation Age of Onset Cancer Mother KIDNEY Coronary Artery Disease Mother Lipids Mother Stroke Mother Heart disease Mother Cancer Father LUNG other (fibromyalgia) Sister Heart Sister Prostate Cancer Brother Social History Tobacco Use Smoking status: Former Current packs/day: 0.00 Average packs/day: 1 pack/day for 10.0 years (10.0 ttl pk-yrs) Types: Cigarettes Start date: 07/18/1961 Quit date: 07/18/1971 Years since quittin.8 Smokeless tobacco: Never Vaping Use Vaping status: Never Used Substance Use Topics Alcohol use: Yes Comment: occasional, 2 beers a week Drug use: No REVIEW OF SYSTEMS GENERAL: No weight loss, malaise or fevers/chills HEENT: + Sinus congestion/Pressure NECK: Negative for lumps, goiter, pain and significant neck swelling RESPIRATORY: + SOB CARDIOVASCULAR: Negative for chest pain, leg swelling, [...] depression, anxiety, or suicidal ideation. EXAM: BP 128/72 Pulse 76 Temp 36.4 C (97.6 F) (Tympanic) Resp 16 Wt 79.6 kg (175 lb 7.8 oz) SpO2 98% BMI 25.18 kg/m PHYSICAL EXAM: General Appearance: Ill appearing, alert, in no acute distress, well-hydrated, well nourished.. Skin: Skin color, texture, turgor normal, no suspicious rashes or lesions. Head: Normocephalic, no masses, lesions, tenderness or abnormalities. Eyes: Anicteric sclera. Extraocular movements are intact. Ears: External ears normal, canals clear. TMs dull. Nose/Sinuses: Positive findings: mucosa erythematous and swollen. Frontal sinus tenderness with palpation. Oropharynx: Lips, mucosa, and tongue normal, teeth and gums normal, oropharynx normal. Neck: Supple, no adenopathy; thyroid symmetric, normal size, no bruits. Lungs: Lungs clear to auscultation. No wheezing, rhonchi, rales. + Cough Heart: RRR without murmur, gallop, or rubs. No ectopy. Extremities: No deformities, edema, skin discoloration, clubbing or cyanosis. Good capillary refill. Peripheral Pulses: Normal, Capillary refill <2secs, strong peripheral pulses, Pulses palpable. Neurologic: Gait normal. Sensation grossly intact.. ASSESSMENT/PLAN: 1. Sinobronchitis - ICD9: 473.9, 490, ICD10: J32.9, J40 - Will begin treatment with Doxycycline - Supportive care with plenty of fluids, rest, and analgesia prn. - Start prednisone burst - May use Tessalon Perles as needed for cough - DOXYCYCLINE HYCLATE 100 MG TABLET - BENZONATATE 100 MG CAPSULE - PREDNISONE 20 MG TABLET Follow up if no improvement. Discussed treatment plan and patient voices understanding. Patient's questions answered appropriately. Medications and potential side effects were discussed and patient voices understanding. Ruth Perez APRN.LIZET This note was partially generated using [employer] recognition system. Note was reviewed for accuracy. There may be minor misspellings or grammar miscues with [employer] voice recognition. documented in this encounterHolzer Health System11-07-2024 NoteHNO ID: [id number] Author: RUTH PEREZ APRN.GANG HEMSTITCHING MACHINE OPERATOR Service: ? Author Type: Nurse Practitioner Type: Progress Notes Filed: 05/24/2024 09:54 Note Text: This is a 78 year old male who presents today with: Patient presents with: Acute Visit: lingering cough and cold HISTORY OF PRESENT ILLNESS: Shelton Fox is a 78 year old male. Patient presents with: Acute Visit: lingering cough and cold Here in the office for cough. Symptoms started about 3 weeks ago. Initially had fever, sore throat, and cough. Has been using OTC cold and cough medications. Symptoms started to improve then worsening with sinus congestion, head pressure, and cough. Cough is dry. No SOB or difficulty breathing. PAST MEDICAL HISTORY: PAST MEDICAL HISTORY Diagnosis Date Allergic rhinitis, cause unspecified Arthritis Atherosclerotic heart disease of [place] coronary artery without angina pectoris Atrial fibrillation (HCC) Avascular necrosis (HCC) Benign neoplasm of colon Bilateral extracranial carotid artery stenosis CAD (coronary artery disease) Cardiomyopathy (HCC) Chronic back pain Diverticulosis of colon (without [...] ACETBLR/PROX FEM PROSTC AGRFT/ALGRFT 04/2012 Dr. Wood> [facility] ARTHRP KNE CONDYLEANDPLATU MEDIALANDLAT COMPARTMENTS Right [...] SURGICAL HISTORY OF N/A 12/20[facility]2022 [facility]ST [facility]GICAL HISTORY OF Right 12/26/2023 Endarterctomy carotid TONSILLECTOMY HX TONSILLECTOMY PRIMARY/SECONDARY Tonsillectomy and adnoids ALLERGIES Plaquenil [Hydroxychloroquine], Spironolactone, Indocin [Indomethacin Sodium], and Mobic [Meloxicam] MEDICATIONS Current Outpatient Medications Medication Sig allopurinol (ZYLOPRIM) 100 mg tablet Take 1 tablet by mouth once daily. pantoprazole DR (PROTONIX) 20 mg tablet Take 1 tablet by mouth daily before breakfast. Take on empty stomach, 1/2 hr before meal. lisinopril (ZESTRIL) 5 mg tablet Take 5 mg by mouth every afternoon. acetaminophen (TYLENOL) 325 mg tablet Take by mouth. simvastatin (ZOCOR) 20 mg tablet Take 1 tablet by mouth once daily. polyethylene glycol 3350 17 gram packet Take 17 g by mouth once daily. Dissolve dose in 4 - 8 ounces of liquid and take as directed. aspirin 81 mg chewable tablet Take 81 mg by mouth once daily. Patient reports taking one 81mg chewable tablet by mouth once daily. Lactobacillus acidophilus (ACIDOPHILUS ORAL) Take 1 capsule by mouth once daily. vitamin B complex (SUPER B COMPLEX ORAL) Take 1 tablet by mouth once daily. Magnesium Oxide 500 mg tab Take 1 tablet by mouth once daily. furosemide (LASIX) 40 mg tablet Take 40 mg by mouth as needed. carvedilol (COREG) 6.25 mg tablet Take 1 tablet by mouth twice daily. multivit with minerals/lutein (MULTIVITAMIN 50 PLUS ORAL) Take 1 tablet by mouth once daily. apixaban (ELIQUIS) 5 mg tab(s) Take 5 mg by mouth twice daily. Melatonin 5 mg cap Take 5 mg by mouth at bedtime as needed. No current facility-administered medications for this visit. FAMILY HISTORY Problem Relation Age of Onset Cancer Mother KIDNEY Coronary Artery Disease Mother Lipids Mother Stroke Mother Heart disease Mother Cancer Father LUNG other (fibromyalgia) Sister Heart Sister Prostate Cancer Brother Social History Tobacco Use Smoking status: Former Current packs/day: 0.00 Average packs/day: 1 pack/day for 10.0 years (10.0 ttl pk-yrs) Types: Cigarettes Start date: 07/18/1961 Quit date: 07/18/1971 Years since quittin.8 Smokeless tobacco: Never Vaping Use Vaping status: Never Used Substance Use Topics Alcohol use: Yes Comment: occasional (more content not included)...[facility] 05-24-2024 Instructions* Patient Instructions* Ruth Perez APRN.CNP - 05/24/2024 9:12 AM EST Start Doxycyline, take with food, hold vitamins while taking antibiotic Start prednisone 20 mg daily for the next 5 days May use Tessalon Perles as needed for cough Stay well hydrated Follow up as needed. documented in this encounterHolzer [facility] System11-04-2024 Telephone encounter Note * Telephone Encounter - Phani Rajan APRN.CNP - 05/21/2024 7:22 AM EST The following approved medication requests have been transmitted electronically. Requested Prescriptions Pending Prescriptions Disp Refills allopurinol (ZYLOPRIM) 100 mg tablet 180 tablet 3 Sig: Take 1 tablet by mouth once daily. Phani Rajan APRN.CNP [facility]11-04-[facility] Miscellaneous Notes* Telephone Encounter - Phani Rajan APRN.CNP - 05/21/2024 7:22 AM EST The following approved medication requests have been transmitted electronically. Requested Prescriptions Pending Prescriptions Disp Refills allopurinol (ZYLOPRIM) 100 mg tablet 180 tablet 3 Sig: Take 1 tablet by mouth once daily. Phani Rajan APRN.CNP * Telephone Encounter - Larisa Cano LPN - 05/21/2024 6:44 AM EST Prescription Refill Information The patient has been identified by name and date of : Yes Caregiver verified no other encounters exist for this prescription request: Yes Caregiver confirmed with patient/requestor that no other refills are due, in the near future, with this provider at this time: Yes The last office visit in the department: 01/20/2024 Does the patient have a future office visit with this provider/department: Yes Requested Prescriptions Pending Prescriptions Disp Refills allopurinol (ZYLOPRIM) 100 mg tablet 180 tablet 3 Sig: Take 1 tablet by mouth. Larisa Cano LPN May 21, 2024 6:58 AM documented in this encounterHolzer Health System11-04-2024 Telephone encounter Note * Telephone Encounter - Larisa Cano LPN - 05/21/2024 6:44 AM EST Prescription Refill Information The patient has been identified by name and date of : Yes Caregiver verified no other encounters exist for this prescription request: Yes Caregiver confirmed with patient/requestor that no other refills are due, in the near future, with this provider at this time: Yes The last office visit in the department: 01/20/2024 Does the patient have a future office visit with this provider/department: Yes Requested Prescriptions Pending Prescriptions Disp Refills allopurinol (ZYLOPRIM) 100 mg tablet 180 tablet 3 Sig: Take 1 tablet by mouth. Larisa Cano LPN May 21, 2024 6:58 AM [facility] Telephone encounter Note* Telephone Encounter - Phani Rajan APRN.CNP - 05/16/2024 12:27 PM EDT The following approved medication requests have been transmitted electronically. Requested Prescriptions Pending Prescriptions Disp Refills pantoprazole DR (PROTONIX) 20 mg tablet 90 tablet 3 Sig: Take 1 tablet by mouth daily before breakfast. Take on empty stomach, 1/2 hr before meal. Phani Rajan APRN.CNP [facility] Miscellaneous Notes* Telephone Encounter - Phani Rajan APRN.CNP - 05/16/2024 12:27 PM EDT The following approved medication requests have been transmitted electronically. Requested Prescriptions Pending Prescriptions Disp Refills pantoprazole DR (PROTONIX) 20 mg tablet 90 tablet 3 Sig: Take 1 tablet by mouth daily before breakfast. Take on empty stomach, 1/2 hr before meal. Phani Rajan APRN.CNP * Telephone Encounter - Magali Diaz LPN - 05/16/2024 11:13 AM EDT Prescription Refill Information The patient has been identified by name and date of : Yes Caregiver verified no other encounters exist for this prescription request: Yes Caregiver confirmed with patient/requestor that no other refills are due, in the near future, with this provider at this time: Yes The last office visit in the department: 03/29/24 Does the patient have a future office visit with this provider/department: Yes 07/24/24 Requested Prescriptions Pending Prescriptions Disp Refills pantoprazole DR (PROTONIX) 20 mg tablet 90 tablet 3 Sig: Take 1 tablet by mouth daily before breakfast. Take on empty stomach, 1/2 hr before meal. Magali Diaz LPN May 16, 2024 11:14 AM documented in this encounterHolzer Health System10-30-2024 Telephone encounter Note * Telephone Encounter - Magali Diaz LPN - 05/16/2024 11:13 AM EDT Prescription Refill Information The patient has been identified by name and date of : Yes Caregiver verified no other encounters exist for this prescription request: Yes Caregiver confirmed with patient/requestor that no other refills are due, in the near future, with this provider at this time: Yes The last office visit in the department: 9/12/24 Does the patient have a future office visit with this provider/department: Yes 07/24/24 Requested Prescriptions Pending Prescriptions Disp Refills pantoprazole DR (PROTONIX) 20 mg tablet 90 tablet 3 Sig: Take 1 tablet by mouth daily before breakfast. Take on empty stomach, 1/2 hr before meal. Magali Diaz LPN May 16, 2024 11:14 AM [facility] History of Present illness Narrative* Lundberg David - 04/23/2024 8:39 AM EDT Images from the original note were not included. Hematology Progress Note Shelton Fox 1945 Encounter date: 04/23/2024 Cancer Staging No matching staging information was found for the patient. 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 Presents today for evaulation of anemia. Recent H labs from 08/15/23 demonstrated Hgb 10.1. He was previously on PO ferrous sulfate daily for mild RATNA. This caused him fairly severe constipation, abd pain and impaction resulting in a hospital visit. He has had recent GI work up. Colonoscopy 05/20/23 without evidence of ulceration, bleeding, however noted difficult exam due to patient discomfort and tortuous colon. EGD 05/20/23:Squamous epithelium with glycogenic acanthosis. Ongoing anemia. More fatigue in the last month. Feels like he has now energy to do anything. Tries to works out regularly. Active golf, bowling. Track the [employer] Tuesday - Tuesday but recently feels he is unable to perform activities he was able to do just a few months ago. Appetite decrease, no unintentional weight loss. Does not follow any particular dietary restrictions. One cup of coffee per day/ limits himself to two alcoholic drinks total per weekend. No illicit drug use. Diffuse itching since RSV vaccinaction in injection in June, primarily on arms and legs. Has tried several lotions, antihistamines, otc meds without any noticeable changes. Denies recent illnesses, infections, fever, chills, NS. PALMER for about the last month feels dizziness, lightheaded. No SOB, CP, palpitations. Denies changes in bowel or bladder habits. No N/V/C/D. No black, tarry stools or BRB. On plavix and eliquis. Bad gout in the last year. Started plaquenil about 6 months ago. Prednisone and lasix as needed. Multivitamin. No additional supplements or OTC meds. Does not take any NSAIDs. Tylenol as needed. Taking miralax and magnesium daily to prevent constipation. No known personal or family hx of blood disorders. Father, lung ca. Mother, kidney ca. [employer] for 33 years, retired - no known chemical exposures. Interval Hx: Mr. Fox presents today for follow up and lab review. Reports that he feels well overall. Denies new issues. Fatigue has improved. Arthritis is manageable. Staying active. Received injections in hisneck and back which have made a huge difference. Denies new aches or pains. SOB,PALMER. No CP, palpitations. Denies changes in bowel or bladder habits.No bleeding or bruising. Reviewed labs in detail today. Appetite is good. BP high today. He notes that it has been running high this week. Denies symptoms. He is planning to call his safety physician once he returns home this afternoon. PAST MEDICAL HISTORY Diagnosis Date Allergic rhinitis, cause unspecified Arthritis Atherosclerotic heart disease of [place] coronary artery without angina pectoris Atrial fibrillation (HCC) Avascular necrosis (HCC) Benign neoplasm of colon Bilateral extracranial carotid artery stenosis CAD (coronary artery disease) Cardiomyopathy (HCC) Chronic back pain Diverticulosis of colon (without [...] atrial fibrillation as well as typical atrial flutterwith Dr. Walker on 12/20/2022. Subclavian arterial stenosis (HCC) Unspecified atrial fibrillation (HCC) PAST SURGICAL HISTORY Procedure Laterality Date ARTHROPLASTY TOTAL SHOULDER 06/2011 Dr. Ianotti. ARTHRP ACETBLR/PROX FEM PROSTC AGRFT/ALGRFT 04/2012 Dr. Wood> [facility]. ARTHRP KNE CONDYLE&PLATU MEDIAL&LAT COMPARTMENTS Right COLONOSCOPY [...] HISTORY OF N/A 12/20/2022 EPS with Ablation, [facility] PAST SURGICAL HISTORY OF Right 12/26/2023 Endarterctomy carotid TONSILLECTOMY HX TONSILLECTOMY PRIMARY/SECONDARY <AGE 12 Tonsillectomy and adnoids Current Outpatient Medications Medication Sig Dispense Refill lisinopril (ZESTRIL) 5 mg tablet Take 5 mg by mouth every afternoon. acetaminophen (TYLENOL) 325 mg tablet Take by mouth. simvastatin (ZOCOR) 20 mg tablet Take 1 tablet by mouth once daily. 90 tablet 3 polyethylene glycol 3350 17 gram packet Take 17 g by mouth once daily. Dissolve dose in 4 - 8 ounces of liquid and take as directed. aspirin 81 mg chewable tablet Take 81 mg by mouth once daily. Patient reports taking one 81mg chewable tablet by mouth once daily. Lactobacillus acidophilus (ACIDOPHILUS ORAL) Take 1 capsule by mouth once daily. vitamin B complex (SUPER B COMPLEX ORAL) Take 1 tablet by mouth once daily. Magnesium Oxide 500 mg tab Take 1 tablet by mouth once daily. furosemide (LASIX) 40 mg tablet Take 40 mg by mouth as needed. allopurinol (ZYLOPRIM) 100 mg tablet take 1 tablet by mouth twice a day [address] (PROTONIX) 20 mg tablet Take 1 tablet by mouth daily before breakfast. Take on empty stomach, 1/2 hr before meal. 90 tablet 3 carvedilol (COREG) 6.25 mg tablet Take 1 tablet by mouth twice daily. multivit with minerals/lutein (MULTIVITAMIN 50 PLUS ORAL) Take 1 tablet by mouth once daily. apixaban (ELIQUIS) 5 mg tab(s) Take 5 mg by mouth twice daily. Melatonin 5 mg cap Take 5 mg by mouth at bedtime as needed. No current facility-administered medications for this visit. ALLERGIES Allergen Reactions Plaquenil [Hydroxyc* Itching Spironolactone Other: See Comments Dizziness and severe headaches Indocin [Indomethac* Diarrhea Mobic [Meloxicam] Diarrhea FAMILY HISTORY Problem Relation Age of Onset Cancer Mother KIDNEY Coronary Artery Disease Mother Lipids Mother Stroke Mother Heart disease Mother Cancer Father LUNG other (fibromyalgia) Sister Heart Sister Prostate Cancer Brother Social History Tobacco Use Smoking status: Former Current packs/day: 0.00 Average packs/day: 1 pack/day for 10.0 years (10.0 ttl pk-yrs) Types: Cigarettes Start date: 07/18/1961 Quit date: 07/18/1971 Years since quittin.8 Smokeless tobacco: Never Vaping Use Vaping status: Never Used Substance Use Topics Alcohol use: Yes Comment: occasional, 2 beers a week Drug use: No Review of Systems: All systems reviewed on 04/23/2024 with pertinent positives and negatives as outlined in the interval history. Physical Exam: BP 159/70 Pulse 68 Temp (Src) 97.5 (Temporal) Wt 176 lb 8 oz (80.1kg) SpO2 99% General: Age-appropriate well developed. HEENT: Normocephalic, no sclera icterus, external ears normal Neck: Supple, no JVD. Chest: Clear bilaterally, no wheezes, not labored. Heart: RR, afib Abdomen: Soft, nontender, nondistended, Extremities: No cyanosis, clubbing, gross deformities Neurological: Cranial nerves II through XII are intact bilaterally, no focal deficits. Skin: Warm and dry with no ulcerations. Hematologic: no bruising or petechiae. Psychiatric: Alert and oriented x3. Emotional well-being assessment was performed. Pt denies depression, distress, and or problems with coping or adjustment. I have performed the physical exam today (04/23/2024) and have edited the note to correlate with current findings. Lab Results Component Value Date WBC 8.74 04/23/2024 HB 12.0 (L) 04/23/2024 MCV 90.0 04/23/2024 PLT 203 04/23/2024 Lab Results Component Value Date NA 141 01/23/2024 K 4.6 01/23/2024 CO2 26 01/23/2024 BUN 20 01/23/2024 CREAT 1.04 01/23/2024 TBILI 0.4 01/23/2024 TPROT 6.7 01/23/2024 ALB 4.3 01/23/2024 ALKPHOS 79 01/23/2024 ALT 11 01/23/2024 AST 17 01/23/2024 Ferritin Date Value Ref Range Status 01/23/2024 372.0 30.3 - 565.7 ng/mL Final 10/26/2023 794.0 (H) 30.3 - 565.7 ng/mL Final 08/16/2023 93.4 30.3 - 565.7 ng/mL Final 04/06/2023 124.0 30.3 - 565.7 ng/mL Final 09/06/2008 235.8 18.0 - 300.0 ng/mL Final Iron Date Value Ref Range Status 01/23/2024 88 41 - 186 ug/dL Final 10/26/2023 72 41 - 186 ug/dL Final 08/16/2023 53 41 - 186 ug/dL Final 04/06/2023 44 41 - 186 ug/dL Final 09/06/2008 130 30 - 140 ug/dL Final TIBC Date Value Ref Range Status 01/23/2024 312 232 - 386 ug/dL Final 10/26/2023 284 232 - 386 ug/dL Final 08/16/2023 380 232 - 386 ug/dL Final 04/06/2023 327 232 - 386 ug/dL Final 09/06/2008 347 210 - 415 ug/dL Final Transferrin Saturation Date Value Ref Range Status 01/23/2024 28.2 15.0 - 57.0 % Final 10/26/2023 25.4 15.0 - 57.0 % Final 08/16/2023 13.9 (L) 15.0 - 57.0 % Final 04/06/2023 13.5 (L) 15.0 - 57.0 % Final 09/06/2008 37 11 - 46 % Final PRIOR: ARMANDO&SPEP in scanned docs from 10/2015 WNL Colonscopy: 05/20/2023 4:46 PM - Radiology, [place] In Impression IMPRESSION: 1. Difficult exam due to patient's level of discomfort 2. Multiple diverticula but no evidence of diverticulitis 3. Sigmoid colon is extremely tortuous XR of hands from 07/31/2023, injury : Assessment and Plan: Mr. Fox is a pleasant 78 year old gentleman presenting for further evaluation of anemia. Anemia - reviewed symptoms/potential causes of anemia in detail, including but not limited to CKD, liver dysfunction, malabsorption issues, blood loss, bone marrow disorders, etc. Pt able to ask questions. Reviewed that he does not meet criteria for blood transfusion as hgb >7 - Appears anemia has been ongoing to some degree for several years, likely multifactorial to some degree. RATNA, kidney dysfunction, afib, on hydroxychloroquine for last 6 + months likely all contributing. - EGD and colonoscopy in 05/2023 without bleeding or ulceration, no overt s/s of bleeding - recent iron studies show mild RATNA, unsure if that alone would contribute to recent drop in hgb. Unable to tolerate PO iron. With CKD. Recommend IV iron sucrose 200mg x 5 and reevaluate cbc for improvement. - hgb 10.1 on 08/15/23, stable 10.4 08/22/2023 - SPEP, retic, cmp, folate, copper, hapto, ldh unremarkable - we discussed in detail that fatigue can be multifactorial - s/p IV iron sucrose 200mg x5, last dose on 09/19/2023 - reviewed labs today, cbc unremarkable. Hgb 12 today - Iron studies pending - CBC, iron studies in Q3 months RTC in 6 months with labs Pt acknowledged and agreeable with plan. Pt would like labs faxed to Dr. Gabbi Lundberg APRN.GANG HEMSTITCHING MACHINE OPERATOR I spent a total of 25 minutes on the date of the service which included preparing to see the patient, [id number] patient care, completing clinical documentation, and performing a medically appropriate examination. Portions of this note including HPI, ROS, impression/plan may have been copied forward as to provide important historical information essential in contributing to medical decision making. Documentation has been reviewed and edited as necessary to support clinical decision making for today's visit and to reflect my own independent evaluation of this patient. documented in this encounterHolzer Health System10-07-2024 NoteHNO ID: [id number] Author: DAVID LUNDBERG, ? Service: ? Author Type: Nurse Practitioner Type: Progress Notes Filed: 04/23/2024 14:20 Note Text: Hematology Progress Note Shelton Fox 1945 Encounter date: 04/23/2024 Cancer Staging No matching staging information was found for the patient. 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 Presents today for evaulation of anemia. Recent [facility] labs from 08/15/23 demonstrated Hgb 10.1. He was previously on PO ferrous sulfate daily for mild RATNA. This caused him fairly severe constipation, abd pain and impaction resulting in a hospital visit. He has had recent GI work up. Colonoscopy 05/20/23 without evidence of ulceration, bleeding, however noted difficult exam due to patient discomfort and tortuous colon. EGD 05/20/23:Squamous epithelium with glycogenic acanthosis. Ongoing anemia. More fatigue in the last month. Feels like he has now energy to do anything. Tries to works out regularly. Active golf, bowling. Track [employer] Tuesday - Tuesday but recently feels he is unable to perform activities he was able to do just a few months ago. Appetite decrease, no unintentional weight loss. Does not follow any particular dietary restrictions. One cup of coffee per day/ limits himself to two alcoholic drinks total per weekend. No illicit drug use. Diffuse itching since RSV vaccinaction in injection in June, primarily on arms and legs. Has tried several lotions, antihistamines, otc meds without any noticeable changes. Denies recent illnesses, infections, fever, chills, NS. PALMER for about the last month feels dizziness, lightheaded. No SOB, CP, palpitations. Denies changes in bowel or bladder habits. No N/V/C/D. No black, tarry stools or BRB. On plavix and eliquis. Bad gout in the last year. Started plaquenil about 6 months ago. Prednisone and lasix as needed. Multivitamin. No additional supplements or OTC meds. Does not take any NSAIDs. Tylenol as needed. Taking miralax and magnesium daily to prevent constipation. No known personal or family hx of blood disorders. Father, lung ca. Mother, kidney ca. [employer] for 33 years, retired - no known chemical exposures. Interval Hx: Mr. Fox presents today for follow up and lab review. Reports that he feels well overall. Denies new issues. Fatigue has improved. Arthritis is manageable. Staying active. Received injections in his neck and back which have made a huge difference. Denies new aches or pains. SOB,PALMER. No CP, palpitations. Denies changes in bowel or bladder habits. No bleeding or bruising. Reviewed labs in detail today. Appetite is good. BP high today. He notes that it has been running high this week. Denies symptoms. He is planning to call his safety physician once he returns home this afternoon. PAST MEDICAL HISTORY Diagnosis Date Allergic rhinitis, cause unspecified Arthritis Atherosclerotic heart disease of [place] coronary artery without angina pectoris Atrial fibrillation (HCC) Avascular necrosis (HCC) Benign neoplasm of colon Bilateral extracranial carotid artery stenosis CAD (coronary artery disease) Cardiomyopathy (HCC) Chronic back pain Diverticulosis of colon (without [...] ACETBLR/PROX FEM PROSTC AGRFT/ALGRFT 04/2012 Dr. Wood> [facility] ARTHRP KNE CONDYLEANDPLATU MEDIALANDLAT COMPARTMENTS Right [...] SURGICAL HISTORY OF N/A 12/20/2022 [facility]ST [facility]GICAL HISTORY OF Right (more content not included)...[facility]09-12-2024 Instructions* Patient Instructions* Ruth Perez APRN.CNP - 03/29/2024 7:57 AM EDT If back pain does not improve, start the prednisone taper, take with food May use muscle relaxant as needed. Apply steroid cream to rash for the next 10 days. Follow up if no improvement. documented in this encounterHol[facility]09-[facility]24 History of Present illness Narrative* Ruth Perez APRN.CNP - 03/29/2024 7:40 AM EDT This is a 78 year old male who presents today with: Patient presents with: Acute Visit: rash on right leg HISTORY OF PRESENT ILLNESS: Shelton Fox is a 78 year old male. Patient presents with: Acute Visit: rash on right leg Here in the office for rash. Started about 1 week ago on right calf. Has been applying coritsone cream with mild relief. Rash has not spread, very itchy. No seeping. Back Pain, currently in PT. Taking Tylenol as needed due to anticoagulants. Has been applying Ivone unit. No numbness and tingling down the legs. The low back feels very tight. Cannot play golf. Following with pain manamgent, discussions of injections in the future Ear pain, has been applying debrox ear drops. History of cerumen impaction in the past. No difficulty hearing. PAST MEDICAL HISTORY: PAST MEDICAL HISTORY No date: Allergic rhinitis, cause unspecified No date: Arthritis No date: Atherosclerotic heart disease of [place] coronary artery without angina pectoris No date: Atrial fibrillation (HCC) No date: Avascular necrosis (HCC) No date: Benign neoplasm of colon No date: Bilateral extracranial carotid artery stenosis No date: CAD (coronary artery disease) No date: Cardiomyopathy (HCC) No date: Chronic back pain No date: Diverticulosis of colon (without mention of hemorrhage) No date: Dyslipidemia No date: Erectile dysfunction No date: Essential hypertension, benign No date: Fatigue No date: GERD (gastroesophageal reflux disease) No date: Gout, unspecified No date: H/O carotid stenosis No date: Hepatomegaly No date: Internal hemorrhoids without mention of complication No date: Mixed hyperlipidemia No date: Osteoarthritis No date: Other and unspecified hyperlipidemia No date: Peripheral arterial disease (HCC) No date: Prominent abdominal aortic pulsation No date: S/P drug eluting coronary stent placement No date: Snoring 12/21/2022: Status post catheter ablation of atrial fibrillation Comment: Patient underwent radiofrequency PVI for both atrial fibrillation as well as typical atrial flutter with Dr. Walker on 12/20/2022. No date: Subclavian arterial stenosis (HCC) No date: Unspecified atrial fibrillation (HCC) PAST SURGICAL HISTORY 06/2011: ARTHROPLASTY TOTAL SHOULDER Comment: Dr. Benitez. 04/2012: ARTHRP ACETBLR/PROX FEM PROSTC AGRFT/ALGRFT Comment: Dr. Wood> [facility] No date: ARTHRP KNE CONDYLE&PLATU MEDIAL&LAT COMPARTMENTS Comment: Right 05/2023: COLONOSCOPY FLX DX W/COLLJ SPEC WHEN PFRMD Comment: with Dr. Mejia 05/20/2023: COLONOSCOPY SCREENING 08/24/2006: COLONOSCOPY W/BIOPSY SINGLE/MULTIPLE 12/01/2020: EGD 05/2023: ESOPHAGOGASTRODUODENOSCOPY TRANSORAL DIAGNOSTIC No date: EYE SURGERY HX No date: JOINT REPLACEMENT HX 10/06/2022: LEFT HEART CATH,PERCUTANEOUS 10/03/2008: OPEN REPAIR OF ROTATOR CUFF ACUTE Comment: Rotator cuff repair-right No date: PAST SURGICAL HISTORY OF Comment: right knee scope No date: PAST SURGICAL HISTORY OF Comment: cataract both eyes 12/20/2022: PAST SURGICAL HISTORY OF; N/A Comment: EPS with Ablation, [facility] 12/26/2023: PAST SURGICAL HISTORY OF; Right Comment: Endarterctomy carotid No date: TONSILLECTOMY HX No date: TONSILLECTOMY PRIMARY/SECONDARY <AGE 12 Comment: Tonsillectomy and adnoids ALLERGIES Plaquenil [Hydroxychloroquine], Spironolactone, Indocin [Indomethacin Sodium], and Mobic [Meloxicam] MEDICATIONS Current Outpatient Medications Medication Sig lisinopril (ZESTRIL) 5 mg tablet Take 5 mg by mouth every afternoon. predniSONE (DELTASONE) 2.5 mg tablet Take 1 tablet by mouth once daily. acetaminophen (TYLENOL) 325 mg tablet Take by mouth. simvastatin (ZOCOR) 20 mg tablet Take 1 tablet by mouth once daily. polyethylene glycol 3350 17 gram packet Take 17 g by mouth once daily. Dissolve dose in 4 - 8 ounces of liquid and take as directed. aspirin 81 mg chewable tablet Take 81 mg by mouth once daily. Patient reports taking one 81mg chewable tablet by mouth once daily. Lactobacillus acidophilus (ACIDOPHILUS ORAL) Take 1 capsule by mouth once daily. vitamin B complex (SUPER B COMPLEX ORAL) Take 1 tablet by mouth once daily. Magnesium Oxide 500 mg tab Take 1 tablet by mouth once daily. furosemide (LASIX) 40 mg tablet Take 40 mg by mouth as needed. allopurinol (ZYLOPRIM) 100 mg tablet take 1 tablet by mouth twice a day pantoprazole DR (PROTONIX) 20 mg tablet Take 1 tablet by mouth daily before breakfast. Take on empty stomach, 1/2 hr before meal. carvedilol (COREG) 6.25 mg tablet Take 1 tablet by mouth twice daily. multivit with minerals/lutein (MULTIVITAMIN 50 PLUS ORAL) Take 1 tablet by mouth once daily. apixaban (ELIQUIS) 5 mg tab(s) Take 5 mg by mouth twice daily. Melatonin 5 mg cap Take 5 mg by mouth at bedtime as needed. No current facility-administered medications for this visit. FAMILY HISTORY Problem Relation Age of Onset Cancer Mother KIDNEY Coronary Artery Disease Mother Lipids Mother Stroke Mother Heart disease Mother Cancer Father LUNG other (fibromyalgia) Sister Heart Sister Prostate Cancer Brother Social History Tobacco Use Smoking status: Former Current packs/day: 0.00 Average packs/day: 1 pack/day for 10.0 years (10.0 ttl pk-yrs) Types: Cigarettes Start date: 07/18/1961 Quit date: 07/18/1971 Years since quittin.7 Smokeless tobacco: Never Vaping Use Vaping status: Never Used Substance Use Topics Alcohol use: Yes Comment: occasional, 2 beers a week Drug use: No REVIEW OF SYSTEMS GENERAL: No weight loss, malaise or fevers/chills HEENT: + Ear Pain NECK: Negative for lumps, goiter, pain and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 Dr. Benitez. 04/2012: ARTHRP ACETBLR/PROX FEM PROSTC AGRFT/ALGRFT Comment: Dr. Wood> [facility]. No date: ARTHRP KNE CONDYLEANDPLATU MEDIALANDLAT COMPARTMENTS Comment: Right 05/2023: COLONOSCOPY FLX DX W/COLLJ SPEC WHEN PFRMD Comment: with Dr. Mejia 05/20/2023: COLONOSCOPY SCREENING 08/24/2006: COLONOSCOPY W/BIOPSY SINGLE/MULTIPLE 12/01/2020: EGD 05/2023: ESOPHAGOGASTRODUODENOSCOPY TRANSORAL DIAGNOSTIC No date: EYE SURGERY HX No date: JOINT REPLACEMENT HX 10/06/2022: LEFT HEART CATH,PERCUTANEOUS 10/03/2008: OPEN REPAIR OF ROTATOR CUFF ACUTE Comment: Rotator cuff repair-right No date: PAST SURGICAL HISTORY OF Comment: right knee scope No date: PAST SURGICAL HISTORY OF Comment: cataract both eyes 12/20/2022: PAST SURGICAL HISTORY OF; N/A Comment: EPS with Ablation, [facility] 12/26/2023: PAST SURGICAL HISTORY OF; Right Comment: Endarterctomy carotid No date: TONSILLECTOMY HX No date: TONSILLECTOMY PRIMARY/SECONDARY Comment: Tonsillectomy and adnoids Family History FAMILY HISTORY Problem Relation Age of Onset Cancer Mother KIDNEY Coronary Artery Disease Mother Lipids Mother Stroke Mother Heart disease Mother Cancer Father LUNG other (fibromyalgia) Sister Heart Sister Prostate Cancer Brother Patient Allergies ALLERGIES Allergen Reactions Plaquenil [Hydroxyc* Itching Spironolactone Other: See Comments Dizziness and severe headaches Indocin [Indomethac* Diarrhea Mobic [Meloxicam] Diarrhea Current Medications Current Outpatient Medications on File Prior to Visit Medication Sig lisinopril (ZESTRIL) 5 mg tablet Take 5 mg by mouth every afternoon. predniSONE (DELTASONE) 2.5 mg tablet Take 1 tablet by mouth once daily. acetaminophen (TYLENOL) 325 mg tablet Take by mouth. simvastatin (ZOCOR) 20 mg tablet Take 1 tablet by mouth once daily. polyethylene glycol 3350 17 gram packet Take 17 g by mouth once daily. Dissolve dose in 4 - 8 ounces of liquid and take as directed. aspirin 81 mg chewable tablet Take 81 mg by mouth once daily. Patient reports taking one 81mg chewable tablet by mouth once daily. Lactobacillus acidophilus (ACIDOPHILUS ORAL) Take 1 capsule by mouth once daily. (more content not included)...[facility]07-12-2024 Telephone encounter Note* Telephone Encounter - Vel Kc MA - 01/27/2024 3:34 PM EDT Left detailed message regarding future appt Carotid US 02/27/24 10:00am [facility]07-12-[facility]24 Miscellaneous Notes* Telephone Encounter - Vel Kc MA - 01/27/2024 3:34 PM EDT Left detailed message regarding future appt Carotid US 02/27/24 10:00am [facility]. documented in this encounterHolzer [facility] System07-11-2024 NoteHNO ID: [id number] Author: RODRÍGUEZ, PHI, MD Service: ? Author Type: Physician Type: Progress Notes Filed: 01/26/2024 09:17 Note Text: Shelton Fox is a 78 year old male who presents in follow up after R CEA on 12/26/23 for symptomatic stenosis. Pt has said he's had a low grade R sided headache since surgery. Disussed that headaches aren't typically a symptom of carotid disease or of surgery. He also has bone spurs in his neck and has had C4-5 injections. This is more likely the cause. The pt is doing well post surgery. They are following post op instructions. The incisions are healing well. He has a small hematoma associated with the incision that he states is going down. He complains of some numbness which is normal. He asked about getting back to normal activity like golf and lifting some weight after his vacation next week. He can begin to resume normal activity but should take it slow at the start. Discussed f/u US in the next month or two (states he still has some sorness at the neck) and then yearly. MEDICATIONS: Current Outpatient Medications Medication Sig Dispense Refill lisinopril (ZESTRIL) 5 mg tablet Take 5 mg by mouth every afternoon. predniSONE (DELTASONE) 2.5 mg tablet Take 1 tablet by mouth once daily. acetaminophen (TYLENOL) 325 mg tablet Take by mouth. simvastatin (ZOCOR) 20 mg tablet Take 1 tablet by mouth once daily. 90 tablet 3 polyethylene glycol 3350 17 gram packet Take 17 g by mouth once daily. Dissolve dose in 4 - 8 ounces of liquid and take as directed. aspirin 81 mg chewable tablet Take 81 mg by mouth once daily. Patient reports taking one 81mg chewable tablet by mouth once daily. Lactobacillus acidophilus (ACIDOPHILUS ORAL) Take 1 capsule by mouth once daily. vitamin B complex (SUPER B COMPLEX ORAL) Take 1 tablet by mouth once daily. Magnesium Oxide 500 mg tab Take 1 tablet by mouth once daily. furosemide (LASIX) 40 mg tablet Take 40 mg by mouth as needed. allopurinol (ZYLOPRIM) 100 mg tablet take 1 tablet by mouth twice a day [address] (PROTONIX) 20 mg tablet Take 1 tablet by mouth daily before breakfast. Take on empty stomach, 1/2 hr before meal. 90 tablet 3 carvedilol (COREG) 6.25 mg tablet Take 1 tablet by mouth twice daily. multivit with minerals/lutein (MULTIVITAMIN 50 PLUS ORAL) Take 1 tablet by mouth once daily. apixaban (ELIQUIS) 5 mg tab(s) Take 5 mg by mouth twice daily. Melatonin 5 mg cap Take 5 mg by mouth at bedtime as needed. No current facility-administered medications for this visit. ALLERGIES Allergen Reactions Plaquenil [Hydroxyc* Itching Spironolactone Other: See Comments Dizziness and severe headaches Indocin [Indomethac* Diarrhea Mobic [Meloxicam] Diarrhea There were no vitals taken for this visit. PHYSICAL EXAM: PHYSICAL EXAMINATION: General appearance: Well appearing, alert, in no acute distress, well-hydrated, well nourished. Skin: Skin color, texture, turgor normal, no suspicious rashes or lesions, incisions well healed, small hematoma Head: Lungs: Unlabored on room air Heart: Abdomen: Extremities: Musculoskeletal: Peripheral pulses: Neuro: Gait normal. Reflexes normal and symmetric. Sensation grossly intact. ASSESSMENT: S/p r CEA, symptomatic PLAN: Carotid US in 1-2 months Headache unrelated to recent surgery, continue workup prn Okay to resume normal activity, slow at first Continue asa and statin F/u in 1 year FOLLOW UP: No follow-ups on file. Phi Caba [facility]07-11-2024 History of Present illness Narrative* Phi Caba MD - 01/26/2024 8:50 AM EDT Shelton Fox is a 78 year old male who presents in follow up after R CEA on 12/26/23 for symptomatic stenosis. Pt has said he's had a low grade R sided headache since surgery. Disussed that headaches aren't typically a symptom of carotid disease or of surgery. He also has bone spurs in his neck and has had C4-5 injections. This is more likely the cause. The pt is doing well post surgery. They are following post op instructions. The incisions are healing well. He has a small hematoma associated with the incision that he states is going down. He complains of some numbness which is normal. He asked about getting back to normal activity like golf and lifting some weight after his vacationnext week. He can begin to resume normal activity but should take it slow at the start. Discussed f/u US in the next month or two (states he still has some sorness at the neck) and then yearly. MEDICATIONS: Current Outpatient Medications Medication Sig Dispense Refill lisinopril (ZESTRIL) 5 mg tablet Take 5 mg by mouth every afternoon. predniSONE (DELTASONE) 2.5 mg tablet Take 1 tablet by mouth once daily. acetaminophen (TYLENOL) 325 mg tablet Take by mouth. simvastatin (ZOCOR) 20 mg tablet Take 1 tablet by mouth once daily. 90 tablet 3 polyethylene glycol 3350 17 gram packet Take 17 g by mouth once daily. Dissolve dose in 4 - 8 ounces of liquid and take as directed. aspirin 81 mg chewable tablet Take 81 mg by mouth once daily. Patient reports taking one 81mg chewable tablet by mouth once daily. Lactobacillus acidophilus (ACIDOPHILUS ORAL) Take 1 capsule by mouth once daily. vitamin B complex (SUPER B COMPLEX ORAL) Take 1 tablet by mouth once daily. Magnesium Oxide 500 mg tab Take 1 tablet by mouth once daily. furosemide (LASIX) 40 mg tablet Take 40 mg by mouth as needed. allopurinol (ZYLOPRIM) 100 mg tablet take 1 tablet by mouth twice a day [address] (PROTONIX) 20 mg tablet Take 1 tablet by mouth daily before breakfast. Take on empty stomach, 1/2 hr before meal. 90 tablet 3 carvedilol (COREG) 6.25 mg tablet Take 1 tablet by mouth twice daily. multivit with minerals/lutein (MULTIVITAMIN 50 PLUS ORAL) Take 1 tablet by mouth once daily. apixaban (ELIQUIS) 5 mg tab(s) Take 5 mg by mouth twice daily. Melatonin 5 mg cap Take 5 mg by mouth at bedtime as needed. No current facility-administered medications for this visit. ALLERGIES Allergen Reactions Plaquenil [Hydroxyc* Itching Spironolactone Other: See Comments Dizziness and severe headaches Indocin [Indomethac* Diarrhea Mobic [Meloxicam] Diarrhea There were no vitals taken for this visit. PHYSICAL EXAM: PHYSICAL EXAMINATION: General appearance: Well appearing, alert, in no acute distress, well-hydrated, well nourished. Skin: Skin color, texture, turgor normal, no suspicious rashes or lesions, incisions well healed, small hematoma Head: Lungs: Unlabored on room air Heart: Abdomen: Extremities: Musculoskeletal: Peripheral pulses: Neuro: Gait normal. Reflexes normal and symmetric. Sensation grossly intact. ASSESSMENT: S/p r CEA, symptomatic PLAN: Carotid US in 1-2 months Headache unrelated to recent surgery, continue workup prn Okay to resume normal activity, slow at first Continue asa and statin F/u in 1 year FOLLOW UP: No follow-ups on file. Phi Caba MD documented in this encounterHol[facility]07-[facility] History of Present illness Narrative* Federico Vigil MD - 01/20/2024 9:00 AM EDT Chief Complaint Patient presents with: F/U 6 Month HPI Shelton Fox is a 78 year old male who presents here today for 6 month follow up. Pt here today for a follow up. Daughter, iL here with him today. No bowel, Gi, or urinary issues. Taking Protonix 20 mg daily for dysphagia. Had EGD completed in past for this. Lipid/CAD: Follows with Vascular Surgeon Dr. Phi Caba, had endarterectomy done 12/26/23, bilateral carotid stenosis. Has not been fully released to do all activities, is able to now walk on a treadmill. Hopefully get released to do more activities such as lift weights and golf. States he doesn't eat real badly. Current regimen of Zocor 20 mg daily and ASA 81 mg daily. Tolerating the Zocor well. A-fib: Follows with [facility] Dr. Timothy Walker s/p ablation. Was recently seen by him about aweek ago. Was told he didn't have to see him unless there's an issue; may follow with regular Cardiology. Taking Eliquis 5 mg 1 pill twice daily. HTN: No chest pains, dizziness, or SOB. Checking BP at home with readings running generally in the low now in the 130-150's/70's. Taking Lisinopril 5 mg daily and Coreg 6.25 mg 1 pill BID and Lisinopril 5 mg once daily. Cardio Doctor at [facility] added Lisinopril to regimen due to increased BP. Edema: terry legs; L>R foot. Uses Lasix 40 mg once daily as needed. States he doesn't have to use this real often. Anemia: iron deficiency; follows with Hem/Onc. Has had infusions. Following with Dr. Seo, Rheum who has pt taking Prednisone 2.5 mg once daily. Notes some increased arthritis pain. Was d/c off Plaquenil by Dr. Seo due to side effects of itching. Gout: Taking Allopurinol 100 mg 1 pill BID. Stable, no flare ups. Headaches - Experiencing headaches daily since having endarterectomy on 12/26/23. Using Tylenol daily. Has follow up with Vascular next week. Unsure if this is related to surgery or hx of receiving injections from C4-C5 by Dr. Low. Pt states he has bone spurs. He was referred by Dr. Pool. Got amber about a month ago. States MAURER is right above his right eye and gets pressure/stuffiness in his right ear. Feels like his right ear is full, uses ear drops and lavages his ear. HM - Behavioral Health Screening completed. Denies having Adv Dir/Living Will. Only receives Moderna vaccines, prefers not to switch. Behavioral Health Screening PHQ-2 Score: 0 (Lower risk for depression) MIGUEL-2 Score: 1 (Lower risk for anxiety) Recommendation: no further intervention at this time Past medical history, appointments, medications, allergies reviewed. Previous Medical History PAST MEDICAL HISTORY Diagnosis Date Allergic rhinitis, cause unspecified Arthritis Atherosclerotic heart disease of [place] coronary artery without angina pectoris Atrial fibrillation (HCC) Avascular necrosis (HCC) Benign neoplasm of colon Bilateral extracranial carotid artery stenosis CAD (coronary artery disease) Cardiomyopathy (HCC) Chronic back pain Diverticulosis of colon (without [...] atrial fibrillation as well as typical atrial flutterwith Dr. Walker on 12/20/2022. Subclavian arterial stenosis (HCC) Unspecified atrial fibrillation (HCC) Previous Surgical History PAST SURGICAL HISTORY Procedure Laterality Date ARTHROPLASTY TOTAL SHOULDER 06/2011 Dr. Benitez. ARTHRP ACETBLR/PROX FEM PROSTC AGRFT/ALGRFT 04/2012 Dr. Wood> [facility]. ARTHRP KNE CONDYLE&PLATU MEDIAL&LAT COMPARTMENTS Right [...] HISTORY OF N/A 12/20/2022 EPS with Ablation, [facility] TONSILLECTOMY HX TONSILLECTOMY PRIMARY/SECONDARY <AGE 12 Tonsillectomy and adnoids Family History FAMILY HISTORY Problem Relation Age of Onset Cancer Mother KIDNEY Coronary Artery Disease Mother Lipids Mother Stroke Mother Heart disease Mother Cancer Father LUNG other (fibromyalgia) Sister Heart Sister Prostate Cancer Brother Patient Allergies ALLERGIES Allergen Reactions Spironolactone Other: See Comments Dizziness and severe headaches Indocin [Indomethac* Diarrhea Mobic [Meloxicam] Diarrhea Current Medications Current Outpatient Medications on File Prior to Visit Medication Sig traMADol (ULTRAM) 50 mg tablet Take 1 tablet by mouth every 8 hours as needed for pain for up to 5 days. acetaminophen (TYLENOL) 325 mg tablet Take by mouth. simvastatin (ZOCOR) 20 mg tablet Take 1 tablet by mouth once daily. polyethylene glycol 3350 17 gram packet Take 17 g by mouth once daily. Dissolve dose in 4 - 8 ounces of liquid and take as directed. aspirin 81 mg chewable tablet Take 81 mg by mouth once daily. Patient reports taking one 81mg chewable tablet by mouth once daily. Lactobacillus acidophilus (ACIDOPHILUS ORAL) Take 1 capsule by mouth once daily. vitamin B complex (SUPER B COMPLEX ORAL) Take 1 tablet by mouth once daily. Magnesium Oxide 500 mg tab Take 1 tablet by mouth once daily. furosemide (LASIX) 40 mg tablet Take 40 mg by mouth as needed. allopurinol (ZYLOPRIM) 100 mg tablet take 1 tablet by mouth twice a day pantoprazole DR (PROTONIX) 20 mg tablet Take 1 tablet by mouth daily before breakfast. Take on empty stomach, 1/2 hr before meal. carvedilol (COREG) 6.25 mg tablet Take 1 tablet by mouth twice daily. multivit with minerals/lutein (MULTIVITAMIN 50 PLUS ORAL) Take 1 tablet by mouth once daily. apixaban (ELIQUIS) 5 mg tab(s) Take 5 mg by mouth twice daily. Melatonin 5 mg cap Take 5 mg by mouth at bedtime as needed. No current facility-administered medications on file prior to visit. Social History Social History Tobacco Use Smoking status: Former Packs/day: 1.00 Years: 10.00 Additional pack years: 0.00 Total pack years: 10.00 Types: Cigarettes Quit date: 07/18/1971 Years since quittin.5 Smokeless tobacco: Never Vaping Use Vaping Use: Never used Substance Use Topics Alcohol use: Yes Comment: occasional, 2 beers a week Drug use: No EXAM: BP 138/64 (BP Site: Left Arm, BP Position: Sitting, BP Cuff Size: Regular Adult) Pulse 60 Resp 18 Wt 79.2 kg (174 lb 9.6 oz) BMI 25.05 kg/m General Appearance: Well appearing, alert, in no acute distress, well-hydrated, well nourished.. Skin: Skin color, texture, turgor normal, no suspicious rashes or lesions, Incisions well healed. Ears: External ears normal, canals clear. Neck: Healing incision on the right side of his neck Lungs: Lungs clear to auscultation. No wheezing, rhonchi, rales.. Heart: RRR without murmur, gallop, or rubs. Occ extrasystoles heard Health Maintenance List BP Controlled (<130/80) Never done Shingrix Vaccine(1 of 2) Never done DTaP,Tdap,Td Vaccine(2 - Td or Tdap) due on 10/05/2016 Covid-19 Vaccine(2022- season) due on 03/18/2023 Advance Directive Discussion due on 07/18/2023 Behavioral Health Screening Never done Influenza Vaccine(1) due on 03/18/2024 LDL Cholesterol due on 07/21/2024 Annual PCP Team Chronic Disease Visit due on 08/16/2024 Diabetes Screening due on 12/26/2026 RSV Vaccine Completed Hepatitis C Screening Completed Pneumococcal Vaccine: 65+ Completed Colorectal Cancer Screening Discontinued Data reviewed None ASSESSMENT/PLAN: 1. BENIGN HYPERTENSION - ICD9: 401.1, ICD10: I10 (primary diagnosis) - Controlled - Continue current medications - Recommend home blood pressure monitoring, to bring results to next visit - Encouraged sodium restriction, DASH or Mediterranean diet - Recommend regular aerobic exercise - LIPID PANEL BASIC - COMPREHENSIVE METABOLIC PANEL - HEMOGLOBIN A1C 2. Mixed hyperlipidemia - ICD9: 272.2, ICD10: E78.2 - Check labs on Tuesday, will call with results - Continue current medications - Counseled on healthy diet and regular exercise - LIPID PANEL BASIC 3. Paroxysmal atrial fibrillation (HCC) - ICD9: 427.31, ICD10: I48.0 - Stable - Continue current medication regimen. 4. Cardiomyopathy, unspecified type (HCC) - ICD9: 425.4, ICD10: I42.9 - Stable - Continue current medication regimen. 5. Coronary artery disease involving [place] coronary artery of [place] heart with angina pectoris (HCC) - ICD9: 414.01, 413.9, ICD10: I25.119 - Stable - Continue current medication regimen. 6. Atrial fibrillation, unspecified type (HCC) - ICD9: 427.31, ICD10: I48.91 - Stable - Continue current medication regimen. 7. Gout involving toe of right foot, unspecified cause, unspecified chronicity - ICD9: 274.9, ICD10: M10.9 - Stable - Continue current medication regimen. 8. GERD without esophagitis - ICD9: 530.81, ICD10: K21.9 - Continue current medication regimen. 9. Anemia, unspecified type - ICD9: 285.9, ICD10: D64.9 - Cont monitoring through labs 10. Inflammatory polyarthropathy (HCC) - ICD9: 714.9, ICD10: M06.4 - Cont f/u with Rheum 11. Headache, unspecified headache type - ICD9: 784.0, ICD10: R51.9 - Related to recent surgery more than likely - Discuss with Vascular 12. Ear pressure, right - ICD9: 388.8, ICD10: H93.8X1 - Related to recent surgery - Ear clean on exam Complete labs on Tuesday. Will call with results. Follow up in 6 months. I agree with the Chief Complaint, ROS, and Past Histories independently gathered by the clinical cell support operator and the remaining scribed note accurately describes my personal service to the patient. Medical Decision Making: Problems: Moderate: 2+ stable chronic illnesses Data: Unique test(s) ordered: 3+ Risk: Moderate: Drug management Medical Decision Making Level: 4 - Moderate Federico Vigil MD The documentation for this note was completed by Yasmeen Oliveros MA acting as scribe for Federico Vigil MD. January 20, 2024 9:07 AM. Yasmeen Oliveros MA documented in this encounterHolzer [facility] System07-05-2024 NoteHNO ID: [id number] Author: FEDERICO VIGIL MD Service: ? Author Type: Physician Type: Progress Notes Filed: 01/20/2024 11:11 Note Text: Chief Complaint Patient presents with: F/U 6 Month HPI Shelton Fox is a 78 year old male who presents here today for 6 month follow up. Pt here today for a follow up. Daughter, Li here with him today. No bowel, Gi, or urinary issues. Taking Protonix 20 mg daily for dysphagia. Had EGD completed in past for this. Lipid/CAD: Follows with Vascular Surgeon Dr. Phi Caba, had endarterectomy done 12/26/23, bilateral carotid stenosis. Has not been fully released to do all activities, is able to now walk on a treadmill. Hopefully get released to do more activities such as lift weights and golf. States he doesn't eat real badly. Current regimen of Zocor 20 mg daily and ASA 81 mg daily. Tolerating the Zocor well. A-fib: Follows with [facility] Dr. Timothy Walker s/p ablation. Was recently seen by him about a week ago. Was told he didn't have to see him unless there's an issue; may follow with regular Cardiology. Taking Eliquis 5 mg 1 pill twice daily. HTN: No chest pains, dizziness, or SOB. Checking BP at home with readings running generally in the low now in the 130-150's/70's. Taking Lisinopril 5 mg daily and Coreg 6.25 mg 1 pill BID and Lisinopril 5 mg once daily. Cardio Doctor at [facility] added Lisinopril to regimen due to increased BP. Edema: terry legs; L>R foot. Uses Lasix 40 mg once daily as needed. States he doesn't have to use this real often. Anemia: iron deficiency; follows with Hem/Onc. Has had infusions. Following with Dr. Seo, Rheum who has pt taking Prednisone 2.5 mg once daily. Notes some increased arthritis pain. Was d/c off Plaquenil by Dr. Seo due to side effects of itching. Gout: Taking Allopurinol 100 mg 1 pill BID. Stable, no flare ups. Headaches - Experiencing headaches daily since having endarterectomy on 12/26/23. Using Tylenol daily. Has follow up with Vascular next week. Unsure if this is related to surgery or hx of receiving injections from C4-C5 by Dr. Low. Pt states he has bone spurs. He was referred by Dr. Pool. Got a shot about a month ago. States MAURER is right above his right eye and gets pressure/stuffiness in his right ear. Feels like his right ear is full, uses ear drops and lavages his ear. HM - Behavioral Health Screening completed. Denies having Adv Dir/Living Will. Only receives Moderna vaccines, prefers not to switch. Behavioral Health Screening PHQ-2 Score: 0 (Lower risk for depression) MIGUEL-2 Score: 1 (Lower risk for anxiety) Recommendation: no further intervention at this time Past medical history, appointments, medications, allergies reviewed. Previous Medical History PAST MEDICAL HISTORY Diagnosis Date Allergic rhinitis, cause unspecified Arthritis Atherosclerotic heart disease of [place] coronary artery without angina pectoris Atrial fibrillation (HCC) Avascular necrosis (HCC) Benign neoplasm of colon Bilateral extracranial carotid artery stenosis CAD (coronary artery disease) Cardiomyopathy (HCC) Chronic back pain Diverticulosis of colon (without [...] Laterality Date ARTHROPLASTY TOTAL SHOULDER 06/2011 Dr. Ianotti. ARTHRP ACETBLR/PROX FEM PROSTC AGRFT/ALGRFT 04/2012 Dr. Wood> [facility]. ARTHRP KNE CONDYLEANDPLATU MEDIALANDLAT COMPARTMENTS Right COLONOSCOPY [...] HISTORY OF N/A 12/20/2022 EPS with Ablation, [facility] TONSILLECTOMY HX TONSILLECTOMY PRIMARY/SECONDARY Tonsillectomy and adnoids Family History FAMILY HISTORY Problem Relation Age of Onset Cancer Mother KIDNEY Coronary (more content not included)...[facility]06-28-2024 Telephone encounter Note* Telephone Encounter - Delmy Peng LPN - 01/13/2024 4:02 PM EDT Ry called back stating Shelton's B/P is higher than it usual is. She said this morning it was 186/69 & 160/60 prior to taking his medications. I told her to call her safety physician or PCP for blood pressure management. I also let her know I did let Dr. Caba know about his B/P & the firm lump area on his neck & she agreed- just to keep an eye on it as we discussed earlier. Ry voiced understanding. Delmy Peng LPN [facility]06-28-2024 Miscellaneous Notes* Telephone Encounter - Delmy Peng LPN - 01/13/2024 4:02 PM EDT Ry called back stating Shelton's B/P is higher than it usual is. She said this morning it was 186/69 & 160/60 prior to taking his medications. I told her to call her safety physician or PCP for blood pressure management. I also let her know I did let Dr. Caba know about his B/P & the firm lump area on his neck & she agreed- just to keep an eye on it as we discussed earlier. Ry voiced understanding. Delmy Peng LPN documented in this encounterHolzer Health System06-28-2024 Telephone encounter Note * Telephone Encounter - Delmy Peng LPN - 01/13/2024 1:14 PM EDT Ry called stating Shelton's neck swelling has gone way down & now he has a firm ball in the area of his incision. I spoke with Shelton & he denies any pain or drainage from his incision & he said it is about the size of a quarter or smaller. He said he is not concerned about it & did not know his was calling our office. He feels it is healing just fine. I told them to keep an eye on it & if it gets worse to call us back. Shelton has post op appt with Dr. Caba 01/26/24. Delmy Peng LPN [facility]06-28-2024 Miscellaneous Notes* Telephone Encounter - Delmy Peng LPN - 01/13/2024 1:14 PM EDT Ry called stating Shelton's neck swelling has gone way down & now he has a firm ball in the area of his incision. I spoke with Shelton & he denies any pain or drainage from his incision & he said it is about the size of a quarter or smaller. He said he is not concerned about it & did not know his was calling our office. He feels it is healing just fine. I told them to keep an eye on it & if it gets worse to call us back. Shelton has post op appt with Dr. Caba 01/26/24. Delmy Peng LPN documented in this encounterHolzer [facility] System06-21-2024 Telephone encounter Note * Telephone Encounter - Keila Renteria LPN - 01/06/2024 11:03 AM EDT Notified patient per below. Keila Renteria LPN January 06, 2024 11:03 AM [facility]06-21-20[facility] Miscellaneous Notes* Telephone Encounter - Keila Renteria LPN - 01/06/2024 11:03 AM EDT Notified patient per below. Keila Renteria LPN January 06, 2024 11:03 AM * Telephone Encounter - Elena Watkins APRN.CNP - 01/05/2024 4:00 PM EDT Images from the original note were not included. Photo received & reviewed. * The above image(s) of the NECK was/were taken on 01/05/24 by the patient, for use in clinical documentation purposes only using an encrypted, [facility] approved device. All efforts were made to exclude or minimize identifying information and respect patient modesty and privacy. It is OK to sleep on that side, but that is why the swelling has increased. It will come down over some time - it does get worse before it gets better. And again, so long as there is no issue with his swallowing or breathing, it is OK to continue to monitor. Could try sleeping on other side or on back to see if that helps it come down (or even propped up just a bit if he can tolerate it). Will provide 1 refill of the tramadol to the pharmacy on file. Should be using tylenol (up to 3000mg/24 hours) as well. PDMP website checked and validated. All prescriptions have been APPROPRIATELY filled. No suspiciousactivity was identified. 01/05/2024 by Elena Watkins APRN.LIZET Thanks, Elena Watkins APRN.LIZET * Telephone Encounter - Keila Renteria LPN - 01/05/2024 3:24 PM EDT This Nurse spoke to patient per below. Patient and spouse have several other questions/concerns. Patient admits that he DOES sleep on same side. Patient states he was told after surgery that would beok. Patient and spouse states that the swelling has gotten worse within the last two days as well as there is a hardness that has developed over the last few days compared to the squishiness of skin/tissue. This Nurse provided [facility] phone number to send a picture. Patient asking if Tramadol can be refilled since he is still having pain? Pharmacy: RENAE Renteria LPN January 05, 2024 3:29 PM * Telephone Encounter - Keila Renteria LPN - 01/04/2024 4:15 PM EDT Attempted to contact patient however no answer. This Nurse left a voice message requesting a returncall, providing our phone number. Keila Renteria LPN January 04, 2024 4:16 PM * Telephone Encounter - Elena Watkins APRN.CNP - 01/04/2024 12:05 PM EDT Swelling is quite common after surgery. So long as it is not causing any issues with his breathing or swallowing, we just continue to monitor. Try not to sleep on that side, as the swelling will go to the most dependent area. OK for ice compress vs warm compress on & off for ~20 minutes or so at a time if he'd like. If there is any concern for his breathing/swallow, he will need urgent evaluation in the ED - otherwise, we can plan to follow-up as scheduled. Please call with any further questions or concerns, but can continue to monitor for now. Elena Watkins APRN.CNP * Telephone Encounter - Keila Renteria LPN - 01/04/2024 11:53 AM EDT Spouse, Ry, calling in and left message on Nurse's Line that patient is experiencing a lot of swelling in his neck. Spouse asking is this normal? Recommendations? Keila Renteria LPN January 04, 2024 11:54 AM documented in this encounterHolzer Health System06-20-2024 Telephone encounter Note * Telephone Encounter - Elena Watkins APRN.CNP - 01/05/2024 4:00 PM EDT Images from the original note were not included. Photo received & reviewed. * The above image(s) of the NECK was/were taken on 01/05/24 by the patient, for use in clinical documentation purposes only using an encrypted, [facility] approved device. All efforts were made to exclude or minimize identifying information and respect patient modesty and privacy. It is OK to sleep on that side, but that is why the swelling has increased. It will come down over some time - it does get worse before it gets better. And again, so long as there is no issue with his swallowing or breathing, it is OK to continue to monitor. Could try sleeping on other side or on back to see if that helps it come down (or even propped up just a bit if he can tolerate it). Will provide 1 refill of the tramadol to the pharmacy on file. Should be using tylenol (up to 3000mg/24 hours) as well. PDMP website checked and validated. All prescriptions have been APPROPRIATELY filled. No suspiciousactivity was identified. 01/05/2024 by Elena Watkins APRN.LIZET Thanks, Elena Watkins APRN.GANG HEMSTITCHING MACHINE OPERATOR [facility]06-20-20[facility] Telephone encounter Note* Telephone Encounter - Keila Renteria LPN - 01/05/2024 3:24 PM EDT This Nurse spoke to patient per below. Patient and spouse have several other questions/concerns. Patient admits that he DOES sleep on same side. Patient states he was told after surgery that would beok. Patient and spouse states that the swelling has gotten worse within the last two days as well as there is a hardness that has developed over the last few days compared to the squishiness of skin/tissue. This Nurse provided [facility] phone number to send a picture. Patient asking if Tramadol can be refilled since he is still having pain? Pharmacy: [facility] Keila Renteria LPN January 05, 2024 3:29 PM [facility]06-19-20[facility] Telephone encounter Note* Telephone Encounter - eKila Renteria LPN - 01/04/2024 4:15 PM EDT Attempted to contact patient however no answer. This Nurse left a voice message requesting a returncall, providing our phone number. Keila Renteria LPN January 04, 2024 4:16 PM [facility]06-19-20[facility] Instructions* Patient Instructions* Timothy Walker MD - 01/04/2024 3:21 PM EDT Atrial Fibrillation What is atrial [...] pathways to the upper left atrium and tothe lower chambers of the heart (the ventricles). [...] heart has 4 valves that open and closewith each heartbeat to help blood flow in [...] may help keep you from having so manyspells. If a health problem like a leaky [...] called a catheter to deliver energy to theinside of the heart. The energy (usually radio [...] healthcare provider's instructions for treatment. Developed by [employer]. Published by [employer]. Copyright 2014 [employer] and/or one of its subsidiaries. All rights reserved. documented in this encounterHolzer Health System06-19-2024 Nurse Note* Urvashi Gan MA - 01/04/2024 2:57 PM EDT Patient has no cardiac complaints today. [facility] Nurse Note* Urvashi Gan MA - 01/04/2024 2:57 PM EDT Patient has no cardiac complaints today. documented in this encounterHolzer Health System06-19-2024 NoteHNO ID: [id number] Author: TIMOTHY WALKER MD Service: ? Author Type: Physician Type: Progress Notes Filed: 01/04/2024 16:26 Note Text: PRIMARY CARE PHYSICIAN: Federico Vigil [address] [place] [address] Patient Care Team: Federico Vigil MD as PCP - General (Family Medicine) Provider, MD Agustin as Freelance Digital Project Manager CHIEF COMPLAINT: Paroxysmal atrial fibrillation HISTORY OF PRESENT ILLNESS: Mr. Fox is a 78 year old male who presents today for a cardiovascular medicine follow-up visit. History copied from previous notes, edited as needed: 78 year old male with PMH significant for [...] 90% OM lesion and underwent PCI. He underwent radiofrequency catheter ablation for both atrial fibrillation and typical atrial flutter on 12/20/2022. He was discharged the next day on amiodarone due to frequent ectopy. Interim History : He presents today for follow-up. Patient was last seen in June of last year. He was doing well at the time with only brief episodes that he noted on Kardia device. Most of these episodes were not true AF but sinus rhythm with PAC's, at other times indistinguishable from AF but rates were similar to sinus rhythm. He had been changed from metoprolol to carvedilol by his PCP due to issues with fatigue and metoprolol. He has been doing well, with no recurrence of atrial fibrillation. Checking his Kardia device, he has not had any episodes of AF, only reported PACs and PVCs. He just underwent carotid endarterectomy on 12/29 and is recovering from that. Did well postsurgically but is under restrictions for a few weeks after the surgery as far as physical activity is concerned. Otherwise, reports mild chronic fatigue but no other cardiac symptoms. Tolerating Eliquis well with no significant bleeding issues, occasional bruising on his arms. He denies chest pain, shortness of breath, orthopnea, cough, edema, palpitations, PND, lightheadedness or syncope. I have confirmed and edited as necessary, the PFSH and ROS obtained by others. PAST MEDICAL HISTORY Diagnosis Date Allergic rhinitis, cause unspecified Arthritis Atherosclerotic heart disease of [place] coronary artery without angina pectoris Atrial fibrillation (HCC) Avascular necrosis (HCC) Benign neoplasm of colon Bilateral extracranial carotid artery stenosis CAD (coronary artery disease) Cardiomyopathy (HCC) Chronic back pain Diverticulosis of colon (without [...] ACETBLR/PROX FEM PROSTC AGRFT/ALGRFT 04/2012 Dr. Wood> [facility]. ARTHRP KNE CONDYLEANDPLATU MEDIALANDLAT COMPARTMENTS Right COLONOSCOPY [...] HISTORY OF N/A 12/20/2022 EPS with Ablation, [facility] TONSILLECTOMY HX TONSILLECTOMY PRIMARY/SECONDARY Tonsillectomy and adnoids SOCIAL HISTORY Social History Tobacco Use Smokin (more content not included)...[facility]06-19-2024 History of Present illness Narrative* Timothy Walker MD - 01/04/2024 2:56 PM EDT PRIMARY CARE PHYSICIAN: Federico Vigil [address] [id number] Patient Care Team: Federico Vigil MD as PCP - General (Family Medicine) Provider, MD Agustin as Freelance Digital Project Manager CHIEF COMPLAINT: Paroxysmal atrial fibrillation HISTORY OF PRESENT ILLNESS: Mr. Fox is a 78 year old male who presents today for a cardiovascular medicine follow-up visit. History copied from previous notes, edited as needed: 78 year old male with PMH significant for [...] 90% OM lesion and underwent PCI. He underwent radiofrequency catheter ablation for both atrial fibrillation and typical atrial flutter on 12/20/2022. He was discharged the next day on amiodarone due to frequent ectopy. Interim History : He presents today for follow-up. Patient was last seen in June of last year. He was doing well at the time with only brief episodes that he noted on Kardia device. Most of these episodes were nottrue AF but sinus rhythm with PAC's, at other times indistinguishable from AF but rates were similar to sinus rhythm. He had been changed from metoprolol to carvedilol by his PCP due to issues with fatigue and metoprolol. He has been doing well, with no recurrence of atrial fibrillation. Checking his Kardia device, he has not had any episodes of AF, only reported PACs and PVCs. He just underwent carotid endarterectomy on 12/29 and is recovering from that. Did well postsurgically but is under restrictions for a few weeks after the surgery as far as physical activity is concerned. Otherwise, reports mild chronic fatigue but no other cardiac symptoms. Tolerating Eliquis well withno significant bleeding issues, occasional bruising on his arms. He denies chest pain, shortness of breath, orthopnea, cough, edema, palpitations, PND, lightheadedness or syncope. I have confirmed and edited as necessary, the PFSH and ROS obtained by others. PAST MEDICAL HISTORY Diagnosis Date Allergic rhinitis, cause unspecified Arthritis Atherosclerotic heart disease of [place] coronary artery without angina pectoris Atrial fibrillation (HCC) Avascular necrosis (HCC) Benign neoplasm of colon Bilateral extracranial carotid artery stenosis CAD (coronary artery disease) Cardiomyopathy (HCC) Chronic back pain Diverticulosis of colon (without [...] atrial fibrillation as well as typical atrial flutterwith Dr. Walker on 12/20/2022. Subclavian arterial stenosis (HCC) Unspecified atrial fibrillation (HCC) PAST SURGICAL HISTORY Procedure Laterality Date ARTHROPLASTY TOTAL SHOULDER 06/2011 Dr. Benitez. ARTHRP ACETBLR/PROX FEM PROSTC AGRFT/ALGRFT 04/2012 Dr. Wood> [facility]. ARTHRP KNE CONDYLE&PLATU MEDIAL&LAT COMPARTMENTS Right COLONOSCOPY [...] HISTORY OF N/A 12/20/2022 EPS with Ablation, [facility] TONSILLECTOMY HX TONSILLECTOMY PRIMARY/SECONDARY <AGE 12 Tonsillectomy and adnoids SOCIAL HISTORY Social History Tobacco Use Smoking status: Former Packs/day: 1.00 Years: 10.00 Additional pack years: 0.00 Total pack years: 10.00 Types: Cigarettes Quit date: 07/18/1971 Years since quittin.5 Smokeless tobacco: Never Vaping Use Vaping Use: Never used Substance Use Topics Alcohol use: Yes Comment: occasional, 2 beers a week Drug use: No FAMILY HISTORY Problem Relation Age of Onset Cancer Mother KIDNEY Coronary Artery Disease Mother Lipids Mother Stroke Mother Heart disease Mother Cancer Father LUNG other (fibromyalgia) Sister Heart Sister Prostate Cancer Brother ALLERGIES: ALLERGIES Allergen Reactions Spironolactone Other: See Comments Dizziness and severe headaches Indocin [Indomethac* Diarrhea Mobic [Meloxicam] Diarrhea MEDICATIONS: acetaminophen (TYLENOL) 325 mg tablet Take by mouth. simvastatin (ZOCOR) 20 mg tablet Take 1 tablet by mouth once daily. polyethylene glycol 3350 17 gram packet Take 17 g by mouth once daily. Dissolve dose in 4 - 8 ounces of liquid and take as directed. aspirin 81 mg chewable tablet Take 81 mg by mouth once daily. Patient reports taking one 81mg chewable tablet by mouth once daily. Lactobacillus acidophilus (ACIDOPHILUS ORAL) Take 1 capsule by mouth once daily. vitamin B complex (SUPER B COMPLEX ORAL) Take 1 tablet by mouth once daily. Magnesium Oxide 500 mg tab Take 1 tablet by mouth once daily. furosemide (LASIX) 40 mg tablet Take 40 mg by mouth as needed. allopurinol (ZYLOPRIM) 100 mg tablet take 1 tablet by mouth twice a day pantoprazole DR (PROTONIX) 20 mg tablet Take 1 tablet by mouth daily before breakfast. Take on empty stomach, 1/2 hr before meal. carvedilol (COREG) 6.25 mg tablet Take 1 tablet by mouth twice daily. multivit with minerals/lutein (MULTIVITAMIN 50 PLUS ORAL) Take 1 tablet by mouth once daily. apixaban (ELIQUIS) 5 mg tab(s) Take 5 mg by mouth twice daily. Melatonin 5 mg cap Take 5 mg by mouth at bedtime as needed. PHYSICAL EXAMINATION: BP 132/59 Pulse 68 Ht 5' 10 (1.78m) Wt 172 lb (78.0kg) SpO2 98% BMI 24.68 kg/(m^2). General: Well appearing, in no acute distress. Neck: No jugular venous distention. Lungs: Clear to auscultation bilaterally. Heart: Regular rhythm, S1, S2 normal. Extremities: No peripheral edema. Neuro: Oriented to person, place and time, alert, cooperative, gait coordinated. CARDIOVASCULAR MEDICINE TESTING: TTE: 03/2023 - The left ventricle is [...] with more than 50% of the total ghyd-ym-honu time of the visit in counseling / coordination of care. ASSESSMENT/PLAN: 1. Paroxysmal atrial fibrillation (HCC) - ICD9: 427.31, ICD10: I48.0 (primary diagnosis) 2. Cardiomyopathy, unspecified type (HCC) - ICD9: 425.4, ICD10: I42.9 3. Hyperlipidemia, unspecified hyperlipidemia type - ICD9: 272.4, ICD10: E78.5 4. Primary hypertension - ICD9: 401.9, ICD10: I10 5. Status post ablation of atrial flutter - ICD9: V45.89, ICD10: Z98.890, Z86.79 6. Status post catheter ablation of atrial fibrillation - ICD9: V45.89, ICD10: Z98.890 CHADS2-Vasc Score Breakdown 4 Total Score 2 Age >= 75 years old 1 History of hypertension 1 History of vascular disease IMPRESSION: Mr. Fox is a 78 year old male with PMH significant for hypertension, hyperlipidemia, GERD, CAD status post PCI to OM, PAD, chronic systolic heart failure (EF 40%--> 50% after PVI), persistent atrial fibrillation s/p PVI + PW isolation, typical atrial flutter induced during PVI s/p CTI ablation(01/07), PAD s/p rt. (12/30/23) presents today for follow-up. Doing well post ablation with no recurrence of atrial fibrillation. PAC and PVC burden remains low. PLAN AND RECOMMENDATIONS: -Tolerating carvedilol 6.25 mg twice daily well with no issues. -Continue Eliquis 5 mg twice daily. Also on aspirin 81 mg daily for recent carotid endarterectomy. Tolerating anticoagulation well without any significant bleeding sequelae except for mild bruising on his arms. -Recommended continued risk factor modification including regular exercise, maintaining a healthy weight and avoidance of alcohol, smoking etc. -He will follow-up with his regular general safety physician in [place], Dr. Vernon and see EP as needed if future arrhythmia issues arise. No follow-ups on file. Timothy Walker MD documented in [facility] encounter[facility]06-[facility]24 Telephone encounter Note * Telephone Encounter - Elena Watkins APRN.CNP - 01/04/2024 12:05 PM EDT Swelling is quite common after surgery. So long as it is not causing any issues with his breathing or swallowing, we just continue to monitor. Try not to sleep on that side, as the swelling will go to the most dependent area. OK for ice compress vs warm compress on & off for ~20 minutes or so at a time if he'd like. If there is any concern for his breathing/swallow, he will need urgent evaluation in the ED - otherwise, we can plan to follow-up as scheduled. Please call with any further questions or concerns, but can continue to monitor for now. Elena Watkins APRN.GANG HEMSTITCHING MACHINE OPERATOR [facility]06-19-[facility] Telephone encounter Note* Telephone Encounter - Keila Renteria LPN - 01/04/2024 11:53 AM EDT Spouse, Ry, calling in and left message on Nurse's Line that patient is experiencing a lot of swelling in his neck. Spouse asking is this normal? Recommendations? Keila Renteria LPN January 04, 2024 11:54 AM [facility]06-18-2024 Telephone encounter Note* Telephone Encounter - Agustin - 01/03/2024 12:12 AM EDT Record ID: [id number] Patient name: Shelton Fox Date: January 02, 2024 - 07:12 Administered by: AGUSTIN Protocol: -> Great! Now we are in a secure chat environment. Protecting your health information is important to us. Ok, let's get started. Please verify your name and date of . Please click on the button with your first name. -> Shelton Got it. On to the next question... Select the button with your last name. -> Rahul Got it, thank you. Please enter your date of in MM/DD/YYYY format:(e.g., [birth year]/1969 for Aug 05, 1969) -> 1945 Thank you for verifying your information. I'd like to ask you a few questions about how your recovery is going. Have you experienced any new or worsening symptoms since returning home? -> No I'm glad to hear that. Have you had a hospital follow-up appointment yet since your discharge? -> No Why do you think you will not be able to attend? -> Appointment scheduled for a future date Excellent. Many patients have concerns about their medication once they are home. Do you have any questions about taking your medications or which medications you should be on? -> No Good! When you were discharged from the hospital were you discharged home with home health care services?-> No Ok thanks for confirming. When you were discharged from the hospital were you given orders to obtain medical equipment? ->No [facility]06-18-2024 Miscellaneous Notes* Telephone Encounter - Agustin - 01/03/2024 12:12 AM EDT Record ID: [id number] Patient name: Shelton Fox Date: January 02, 2024 - 07:12 Administered by: AGUSTIN Protocol: -> Great! Now we are in a secure chat environment. Protecting your health information is important to us. Ok, let's get started. Please verify your name and date of . Please click on the button with your first name. -> Shelton Got it. On to the next question... Select the button with your last name. -> Rahul Got it, thank you. Please enter your date of in MM/DD/YYYY format:(e.g., 08/05/1969 for Aug 05, 1969) -> 1945 Thank you for verifying your information. I'd like to ask you a few questions about how your recovery is going. Have you experienced any new or worsening symptoms since returning home? -> No I'm glad to hear that. Have you had a hospital follow-up appointment yet since your discharge? -> No Why do you think you will not be able to attend? -> Appointment scheduled for a future date Excellent. Many patients have concerns about their medication once they are home. Do you have any questions about taking your medications or which medications you should be on? -> No Good! When you were discharged from the hospital were you discharged home with home health care services?-> No Ok thanks for confirming. When you were discharged from the hospital were you given orders to obtain medical equipment? ->No documented in this encounterHol[facility] System06-12-[facility]24 Telephone encounter Note * Telephone Encounter - Agustin - 12/28/2023 7:37 PM EDT Record ID: [id number] Patient name: Shelton Fox Date: December 28, 2023 - 02:37 Administered by: AGUSTIN Protocol: -> Great! Now we are in a secure chat environment. Protecting your health information is important to us. Ok, let's get started. Please verify your name and date of . Please click on the button with your first name. -> Shelton Got it. On to the next question... Select the button with your last name. -> Rahul Got it, thank you. Please enter your date of in MM/DD/YYYY format:(e.g., 08/05/1969 for Aug 05, 1969) -> 1945 Thank you for verifying your information. I'd like to ask you a few questions about how your recovery is going. Since leaving the hospital, do you have any new or worsening symptoms? -> No I'm glad to hear that. We encourage a follow-up appointment with a physician to oversee your recovery. It seems that you already have a follow-up appointment for FEDERICO VIGIL on January 20, 2024. Are you able to attend? -> Yes Many patients have concerns about their medication once they are home. Do you have any questions about taking your medications or which medications you should be on? -> No [facility] Miscellaneous Notes* Telephone Encounter - Agustin - 12/28/2023 7:37 PM EDT Record ID: [id number] Patient name: Shelton Fox Date: December 28, 2023 - 02:37 Administered by: AGUSTIN Protocol: -> Great! Now we are in a secure chat environment. Protecting your health information is important to us. Ok, let's get started. Please verify your name and date of . Please click on the button with your first name. -> Shelton Got it. On to the next question... Select the button with your last name. -> Rahul Got it, thank you. Please enter your date of in MM/DD/YYYY format:(e.g., 08/05/1969 for Aug 05, 1969) -> 1945 Thank you for verifying your information. I'd like to ask you a few questions about how your recovery is going. Since leaving the hospital, do you have any new or worsening symptoms? -> No I'm glad to hear that. We encourage a follow-up appointment with a physician to oversee your recovery. It seems that you already have a follow-up appointment for FEDERICO VIGIL on January 20, 2024. Are you able to attend? -> Yes Many patients have concerns about their medication once they are home. Do you have any questions about taking your medications or which medications you should be on? -> No documented in this encounterHolzer [facility] System06-11-2024 NoteHNO ID: [id number] Author: ?, ?, ? Service: Pharmacy Author Type: Media/Instructional Designer Type: Plan of Care Filed: 12/27/2023 12:33 Note Text: PHARMACY MEDICATION REVIEW Patient Name: Shelton Fox : 1945 The following medications were updated within the [facility] medication list: Medications ADDED to [facility] medication list Medications CHANGED on [facility] medication list Medications REMOVED from [facility] medication list triamcinolone acetonide (KENALOG) 0.1 % cream Adjust Sig - Block E-Cancel Additional comments: Verified medication information with e-scripts/dispense report and chart review. Confirmed medications with patient. Patient stated no longer taking Kenalog cream - remove from med list. Required follow up actions for nursing: None The below information represents the best possible medication history: Yes Medication history completed by: Media/Instructional Designer: Augusta Mejia (Certified Fire Investigator) Source of history: Patient: Reliability of source: Appears reliable, clearly identified: Medication name, Medication dose, Medication route, and Medication frequency, Pharmacy records: e-scripts/dispense report, and [facility] records Medication nonadherence identified: No barriers noted Reconciliation completed: No, pharmacist not yet reviewed Patient interested in Bedside Delivery Services or using OP Pharmacy at discharge? Unable to assess Preferred outpatient pharmacy: e- [id number] [place] [address] - [phone] [facility]. - [phone] [facility] [phone] Allergies: Spironolactone Other: See Comments Comment:Dizziness and severe headaches Indocin [Indomethac* Diarrhea Mobic [Meloxicam] Diarrhea Prior to Admission Medications Prescriptions Last Dose Informant Patient Reported? Taking? Lactobacillus acidophilus (ACIDOPHILUS ORAL) Past Week Yes Yes Sig: Take 1 capsule by mouth once daily. Magnesium Oxide 500 mg tab Past Week Yes Yes Sig: Take 1 tablet by mouth once daily. Melatonin 5 mg cap 12/25/2023 Yes Yes Sig: Take 5 mg by mouth at bedtime as needed. acetaminophen (TYLENOL) 325 mg tablet 12/25/2023 Yes Yes Sig: Take by mouth. allopurinol (ZYLOPRIM) 100 mg tablet 12/26/2023 at 0430 No Yes Sig: take 1 tablet by mouth twice a day apixaban (ELIQUIS) 5 mg tab(s) Yes Yes Sig: Take 5 mg by mouth twice daily. aspirin 81 mg chewable tablet 12/25/2023 Yes Yes Sig: Take 81 mg by mouth once daily. Patient reports taking one 81mg chewable tablet by mouth once daily. carvedilol (COREG) 6.25 mg tablet 12/26/2023 at 0430 Yes Yes Sig: Take 1 tablet by mouth twice daily. docusate sodium (DULCOLAX STOOL SOFTENER, DSS, ORAL) Yes No Sig: Take 1 tablet by mouth once daily. Patient not taking: Reported on 11/17/2023 furosemide (LASIX) 40 mg tablet 12/25/2023 Yes Yes Sig: Take 40 mg by mouth as needed. hydrOXYchloroQUINE (PLAQUENIL) 200 mg tablet Yes No Sig: Take 200 mg by mouth twice daily. Patient not taking: Reported on 11/17/2023 multivit with minerals/lutein (MULTIVITAMIN 50 PLUS ORAL) Past Week Yes Yes Sig: Take 1 tablet by mouth once daily. pantoprazole DR (PROTONIX) 20 mg tablet 12/26/2023 at 0430 No Yes Sig: Take 1 tablet by mouth daily before breakfast. Take on empty stomach, 1/2 hr before meal. polyethylene glycol 3350 17 gram packet Yes Yes Sig: Take 17 g by mouth once daily. Dissolve dose in 4 - 8 ounces of liquid and take as directed. sildenafil (VIAGRA) 100 mg tablet Unknown No No Sig: Take 1/2 to 1 tablet by mouth 1 hour prior to anticipated intercourse. Patient not taking: Reported on 11/17/2023 simvastatin (ZOCOR) 20 mg tablet 12/25/2023 No Yes Sig: Take 1 tablet by mouth once daily. vitamin B complex (SUPER B COMPLEX ORAL) Past Week Yes Yes Sig: Take 1 tablet by mouth once daily. Facility-Administered Medications: None Augusta Mejia (Certified Fire Investigator)[id number] 12/27/[facility]23[facility]06-11-2024 NoteHNO ID: [id number] Author: PHI CABA MD Service: Vascular Surgery Author Type: Physician Type: Progress Notes Filed: 12/27/2023 12:03 Note Text: Pt seen and examined. Doing well post op. Incision c/d/I. Neuro in tact. Tolerating po. Urinating. BP wnl. No issues. Pt has yet to walk in cvicu. D/c instructions discussed with pt and . Pt okay for d/c after he ambulates successfully. Phi Caba [facility]06-11-2024 NoteHNO ID: [id number] Author: EUGENIO BARNETT PA-C Service: Vascular Surgery Author Type: Physician Cut To Length Operator Type: Progress Notes Filed: 12/27/2023 09:15 Note Text: Vascular Surgery Progress Note SERVICE DATE: 12/27/2023 Vascular Surgery Service Pager: For questions or concerns Mon-Fri 6a-5p please page [phone]. After 5pm and on Weekends and Holidays, please page [phone] if in ICU or [phone] if on RNF. Subjective SUBJECTIVE: CC: Elective CEA Today I am evaluating the patient re: Elective CEA Patient seen and examined. No events overnight. 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 Denies N/V/CP/SOB. Pain well controlled on APAP. Has not walked yet. + flatus Diet: DIET REGULAR Objective OBJECTIVE: Vitals: Temp (24hrs), Av.3 ?C (97.3 ?F), Min:36.1 ?C (97 ?F), Max:36.5 ?C (97.7 ?F) BP 121/67 Pulse 71 Temp 36.1 ?C (97 ?F) (Temporal) Resp 21 Ht 177.8 cm (5' 10) Wt 78.1 kg (172 lb 2.9 oz) SpO2 98% BMI 24.71 kg/m? O2 Therapy: Room Air IANDO: Date 12/26/23 07 - 12/27/23 0659 12/27/23 07 - 12/28/23 0659 Shift 3501-3143 1376-6239 6643-2955 24 Hour Total 2246-7717 4555-7855 6734-8009 24 Hour Total INTAKE PO 240 650 890 100 100 PO 240 650 890 100 100 IV 1500 24.4 28 1552.4 Volume (mL) 24.4 28 52.4 Volume (mL) (NaCl 0.9% iv infusion) 600 600 Volume (mL) (lactated ringers iv infusion) 900 900 Shift Total 1500 264.4 678 2442.4 100 100 OUTPUT Urine 275 550 825 120 120 Void (ml) 550 550 120 120 OR Urine Output 275 275 Shift Total 275 550 825 120 120 Weight (kg) 77.1 77.1 78.1 78.1 78.1 78.1 78.1 78.1 MEDICATIONS Current Facility-Administered Medications Medication Dose Route Frequency heparin 3,000 Units in NaCl 0.9% 500 mL irrigation 3,000 Units IRRIGATION ONE TIME aspirin 81 mg chewable tab(s) 81 mg ORAL DAILY melatonin 6 mg tab(s) 6 mg ORAL AT BEDTIME PRN pantoprazole DR 20 mg tab(s) (PROTONIX) 20 mg ORAL BEFORE BREAKFAST DAILY magnesium oxide 400 mg tab(s) (MAG-OX) 400 mg ORAL DAILY carvedilol 6.25 mg tab(s) (COREG) 6.25 mg ORAL BID w MEALS simvastatin 20 mg tab(s) (ZOCOR) 20 mg ORAL AT BEDTIME polyethylene glycol 3350 17 g packet 17 g ORAL DAILY PRN NaCl 0.9% iv flush bag 20 mL INTRAVENOUS PRN acetaminophen 1,000 mg tab(s) (TYLENOL) 1,000 mg ORAL q 6 H hydrALAZINE 10 mg injection (APRESOLINE) 10 mg INTRAVENOUS q 4 H PRN allopurinol 100 mg tab(s) (ZYLOPRIM) 100 mg ORAL BID traMADol 50-100 mg tab(s) (ULTRAM) 50-100 mg ORAL q 6 H PRN morphine 2 mg injection 2 mg INTRAVENOUS q 2 H PRN nitroglycerin 100 mg in D5W 250 mL 5-100 mcg/min INTRAVENOUS CONTINUOUS Labs: Recent Labs 12/27/23 0615 12/26/23 1324 NA 133* -- K 4.0 -- CHLOR 100 -- CO2 21* -- BUN 15 -- CREAT 0.88 -- GLUC 141* -- ANION 12 -- CA 8.9 -- WBC 18.08* 8.78 HB 11.3* 11.0* HCT 34.5* 33.8* PLT 205 161 Exam: GENERAL: Patient in chair - NAD. No visitors. NSR on tele. Nitro off - no other gtts NEURO: NFD HEENT: normocephalic, atraumatic, EOMI NECK: Right incision with mild edema. Glue covering incision and skin edges well approximated. trachea midline no JVD. Supple LUNGS: Unlabored breathing. No crackles or wheeze O2 Therapy: Room Air CARDIAC: Regular rate and rhythm ABDOMEN: Soft, non-tender, non-distended EXTREMITIES: GOMEZ symmetrically, No deformities, No edema SKIN: See neck - no other rashes/ ulcers PSYCH: normal mood and affect PULSE: Radial 2+ ASSESSMENT AND PLAN: Active Hospital Problems Diagnosis Date Noted S/P carotid endarterectomy 12/26/2023 Assessment: 78 year old male with history of HLD, HTN, atrial fibrillation, CAD currently hospitalized for symptomatic right ICA stenosis. POD#1 s/p R CEA with extended common carotid endarterectomy. Plan: -Monitor with Nitro off -ASA/ statin -Perioperative ABX completed -Will discuss with Dr. Caba on when to restart OAC (eliquis) -Remove arterial line -Mobilize -Voided -Tolerating PO intake -Possible DC later today SIGNATURE: Eugenio Barnett PA-C PATIENT NAME: Shelton Fox DATE: December 27, 2023 TIME: 8:01 AM Vascular Surgery Service Pager: For questions or concerns Mon-Fri 6a-5p please page [phone]. After 5pm and on Weekends and Holidays, please page [phone] if in ICU or [phone] if on RNF.[facility]06-10-2024 NoteHNO ID: [id number] Author: DANNY PEREZ APRN.DELIVERY DRIVER ASSISTANT Service: Anesthesiology Author Type: Nurse Vocational Psychologist Type: Anesthesia Procedure Notes Filed: 12/26/2023 12:27 Note Text: ANESTHESIOLOGY PROCEDURE NOTE A-Line General Information Procedure Start Time/Medication Administration: 12/26/2023 8:45 AM Procedure End Time: 12/26/2023 8:50 AM Patient location during procedure: OR Timeout Performed Pre-procedure: timeout performed Indications: continuous blood pressure monitoring and blood sampling needed Staffing Anesthesiologist: Kiera Diaz MD DELIVERY DRIVER ASSISTANT: Danny Perez APRN.DELIVERY DRIVER ASSISTANT SRNA: Martin Loja SRNA Performed by: anesthesiologist and SRNA Preparation Sterility Preparation: hand hygiene performed prior to procedure, sterile gloves, drapes, and procedure tray, surgical cap used, mask used, sterile drape used during line insertion, skin prep agent completely dried prior to procedure Site Prep: Chloraprep Procedure Details Catheter Type: arterial line Catheter Size: 20 G Catheter Length: 5.25 in Micropuncture Kit Used: Yes Guidewire Used: Yes Guidewire Removed Intact: Yes Laterality: left Site: brachial artery Ultrasound Guided: Yes Image in Chart: No Sites: potential access sites evaluated, selected vessel patent, concurrent real time ultrasound visualization of vascular needle entry Vessel: target vessel identified and guidewire advanced into vessel Line Secured: Tegaderm and occlusive biodressing Events Events: patient tolerated procedure well with no complications SIGNATURE: Kiera Diaz MD PATIENT NAME: Shelton Fox DATE: December 26, 2023 TIME: 10:44 AM [facility]: [id number] NoteHNO ID: [id number] Author: DANNY PEREZ APRN.DELIVERY DRIVER ASSISTANT Service: Anesthesiology Author Type: Nurse Vocational Psychologist Type: Anesthesia Procedure Notes Filed: 12/26/2023 12:26 Note Text: ANESTHESIOLOGY PROCEDURE NOTE Airway General Information Procedure Start Time/Medication Administration: 12/26/2023 8:48 AM Procedure End Time: 12/26/2023 8:48 AM Patient location during procedure: OR Timeout Performed Pre-procedure: timeout performed Consent Obtained: Yes Patient identity confirmed: arm band Staffing Anesthesiologist: Kiera Diaz MD DELIVERY DRIVER ASSISTANT: Danny Perez APRN.DELIVERY DRIVER ASSISTANT SRNA: Martin Loja SRNA Performed by: UDAY Indications and Patient Condition Indications for airway management: anesthesia Preoxygenated: yes anesthesia circuit Patient position: sniffing Method: asleep Cricoid Pressure: No Manual In-Line Stabilization: No Difficult Mask: No Final Airway Details Final airway type: endotracheal airway Final Endotracheal Airway: ETT Cuffed: yes Successful intubation technique: video laryngoscopy Devices used: Miranda and intubating stylet Endotracheal tube insertion site: oral Blade: Nadiya Blade size: #4 ETT size (mm): 7.5 Measured from: lips (to left side of mouth) Measurement (cm): 22 Placement verified by: capnometry Cormack-Lehane Classification: grade I - full view of glottis Number of attempts at approach: 1 Airway trauma: none. Failed airway: no Unrecognized esophageal intubation: no Airway not difficult SIGNATURE: Danny Perez APRN.DELIVERY DRIVER ASSISTANT PATIENT NAME: Shelton Fox DATE: December 26, 2023 TIME: 9:32 AM CSN: [id number]06-[facility]24 Telephone encounter Note* Telephone Encounter - Federico Vigil MD - 12/23/2023 11:10 AM EDT OK to refill as ordered Federico Vigil MD [facility]06-07-2024 Miscellaneous Notes* Telephone Encounter - Federico Vigil MD - 12/23/2023 11:10 AM EDT OK to refill as ordered Federico Vigil MD * Telephone Encounter - Luma Edmonds - 12/23/2023 8:29 AM EDT Prescription Refill Information The patient has been identified by name and date of : Yes Caregiver verified no other encounters exist for this prescription request: Yes Caregiver confirmed with patient/requestor that no other refills are due, in the near future, with this provider at this time: Yes The last office visit in the department: 08/16/23 Does the patient have a future office visit with this provider/department: Yes Requested Prescriptions Pending Prescriptions Disp Refills simvastatin (ZOCOR) 20 mg tablet 90 tablet 3 Sig: Take 1 tablet by mouth once daily. Luma Garcia [facility] December 23, 2023 8:30 AM documented in this encounterHol[facility] System06-07-2024 Telephone encounter Note * Telephone Encounter - Luma Edmonds - 12/23/2023 8:29 AM EDT Prescription Refill Information The patient has been identified by name and date of : Yes Caregiver verified no other encounters exist for this prescription request: Yes Caregiver confirmed with patient/requestor that no other refills are due, in the near future, with this provider at this time: Yes The last office visit in the department: 08/16/23 Does the patient have a future office visit with this provider/department: Yes Requested Prescriptions Pending Prescriptions Disp Refills simvastatin (ZOCOR) 20 mg tablet 90 tablet 3 Sig: Take 1 tablet by mouth once daily. Luma Garcia [facility] December 23, 2023 8:30 AM [facility]06-04-2024 History and physical note* Heidy Bernstein APRN.GANG HEMSTITCHING MACHINE OPERATOR - 12/20/2023 10:40 AM EDT HISTORY AND PHYSICAL EXAMINATION SERVICE DATE: 12/20/2023 SERVICE TIME: 11:00 AM PRIMARY CARE PHYSICIAN: Federico Vigil MD Assessment Patient has the following medical conditions which may affect judy-operative course: Carotid stenosis, asymptomatic, bilateral Surgery scheduled with Dr. Caba on 12/26/2023 Preop examination Patient has the following medical conditions which may affect judy-operative course addressed in assessment and plan today. Paroxysmal atrial fibrillation (HCC) Ablation 12/2022 Rate controlled with carvedilol Pt taking Eliquis I instructed patient to get preop instructions from surgeon and safety physician. Managed by Dr. 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 Vernon, last OV 05/19/2024 On Carvedilol, statin and ASA Cardiomyopathy, unspecified type (HCC) ECHO 03/29/2023 CONCLUSIONS: - Exam indication: Sustained atrial fibrillation - The left ventricle is normal [...] the prior echocardiographic exam performed on 08/31/2022 ([place]). Mild improvement in the LV systolic function, patient in sinus rhythm on todays exam. BENIGN HYPERTENSION Controlled with carvedilol, instructed to take morning of surgery Gastroesophageal reflux disease Controlled with pantoprazole, instructed to take morning of surgery Anemia Hemoglobin (g/dL) Date Value 10/26/2023 11.5 09/25/2020 13.2 Hematocrit (%) Date Value 10/26/2023 36.0 09/25/2020 41.0 WBC (k/uL) Date Value 10/26/2023 9.59 09/25/2020 8.09 CBC today in PAT Mustafa Activity Status Index: METS: Participate in moderate recreational activites, such as golf, bowling, dancing, doubles tennis, or throwing a baseball or football (6.00 METs) DASI Score: 6 Patient denies any chest pain or undue shortness of breath with the above physical activity. ARISCAT Score: Age: 51-80 Preoperative SpO2: >=96% Respiratory infection in the last month: No Preoperative anemia: No Surgical incision: peripheral Duration of surgery: >3 hrs Emergency procedure: No ARISCAT Score: 26 ANESTHESIA FINDINGS: Intubation History: No history of difficult intubation. No abnormal airway history Significant Anesthesia Considerations: Airway History: No history of difficult airway No abnormal airway history I - PHYSICAL EVALUATION AIRWAY Patient intubated: No. DENTAL Dental findings: teeth intact. Dentures, upper: complete. II - ANESTHESIA PLAN Anesthetic Plan: general Beta Pepe Monitoring Plan Post Procedure Analgesic Plan Prepared for Surgery: optimally prepared for surgery. CONSULTS: Planned Anesthetic: general The Following Tests/Procedures Have Been Initiated: Orders Placed This Encounter polyethylene glycol 3350 17 gram packet Sig: Take 17 g by mouth once daily. Dissolve dose in 4 - 8 ounces of liquid and take as directed. REASON FOR VISIT: Shelton Fox is a 78 year old male who is scheduled for Procedure(s): ENDARTERECTOMY CAROTID ADULT (Right) at the request of Phi Andres MD for routine H&P. My final recommendation will be communicated back to the requesting physician by way of shared medical record or letter. The reason for this visit is to perform a comprehensive review of the patient's past medical history, assess their current health status and obtain any additional testing required based on anesthesiaguidelines. We will also identify any potential anesthesia problems or contraindications to the planned procedure. 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 Carotid Stenosis, Asymptomatic, Bilateral Shoulder Joint Replacement Shoulder Joint Replacement By Other Means Other Physical Therapy Shoulder Joint Replacement Status Gastroesophageal Reflux Disease Ed (Erectile Dysfunction) of Organic Origin Pad (Peripheral Artery Disease) (Hcc) Atrial Fibrillation (Hcc) Ischemic Cardiomyopathy Status Post Catheter Ablation of Atrial Fibrillation Paroxysmal Atrial Fibrillation (Hcc) Status Post Ablation of Atrial Flutter Dyspnea Coronary Artery Disease Involving [place] Coronary Artery of [place] Heart With Angina Pectoris (Hcc) Inflammatory Polyarthropathy (Hcc) History of Arthritis Former Smoker Anemia Dysphagia History of Colonic Polyps Cardiomyopathy, Unspecified Type (Hcc) Preop Examination COVID-19 Immunization Status Overdue - Covid-19 Vaccine (2022- season) Overdue since 03/18/2023 06/01/2022 Imm Admin: COVID-19 vaccine, age 12+ yr, bivalent (MODERNA) 12/10/2021 Imm Admin: COVID-19 original vaccine, full dose, monovalent (MODERNA) 05/21/2021 Imm Admin: COVID-19 original vaccine, full dose, monovalent (MODERNA) Only the first 3 history entries have been loaded, but more history exists. CHIEF COMPLAINT: Bilateral extracranial carotid artery stenosis HPI: Patient is a 78 year old male here for a preoperative exam. Pt has a history of carotid arterystenosis. Recent US showed Common carotid artery: 50- 99% stenosis and internal carotid artery: 20-39% stenosis on the right. Common carotid artery: 50-99% stenosis and internal carotid artery: 60-79%stenosis on the left. Pt denies symptoms. Pt discussed with surgeon and agrees to surgical intervention. REVIEW OF SYSTEMS: General: Negative for: unintentional weight change, malaise and fever. Neurological: Positive for: headaches. Negative for: seizures and strokes. Respiratory: Negative for: asthma, COPD, tobacco use, URI < 2 weeks and obstructive sleep apnea. Cardiovascular: Positive for: atrial fibrillation, CAD, CHF, hyperlipidemia and hypertension Negative for: arrhythmia, chest pain and DVT/PE. GI: Positive for: GERD and liver disease Negative for: abdominal pain, nausea and vomiting. : Negative for: dysuria, hematuria and renal failure. Endocrine: Negative for: diabetes mellitus, hyperthyroidism and hypothyroidism. Hematology: Positive for: chronic anti-coagulation/platelet meds. Patient is on anti- coagulation/platelet medication(s): DOAC and Aspirin. Negative for: anemia, factor V Leiden and von Willebrand disease. Oncology: No history of CA metastasis, chemo within 30 days, or radiotherapy within 90 days. No history of oncological symptoms or problems. Psych: Negative for: anxiety and depression. Musculoskeletal: Negative for joint pain or swelling, back pain or muscle pain. Skin: Negative for lesions, rash and itching. PAST MEDICAL HISTORY Diagnosis Date Allergic rhinitis, cause unspecified Arthritis Atherosclerotic heart disease of [place] coronary artery without angina pectoris Atrial fibrillation (HCC) Avascular necrosis (HCC) Benign neoplasm of colon Bilateral extracranial carotid artery stenosis CAD (coronary artery disease) Cardiomyopathy (HCC) Chronic back pain Diverticulosis of colon (without [...] atrial fibrillation as well as typical atrial flutterwith Dr. Walker on 12/20/2022. Subclavian arterial stenosis (HCC) Unspecified atrial fibrillation (HCC) PAST SURGICAL HISTORY Procedure Laterality Date ARTHROPLASTY TOTAL SHOULDER 06/2011 Dr. Benitez. ARTHRP ACETBLR/PROX FEM PROSTC AGRFT/ALGRFT 04/2012 Dr. Wood> [facility] ARTHRP KNE CONDYLE&PLATU MEDIAL&LAT COMPARTMENTS Right [...] HISTORY OF N/A 12/20/2022 EPS with Ablation, [facility] TONSILLECTOMY HX TONSILLECTOMY PRIMARY/SECONDARY Tonsillectomy and adnoids FAMILY HISTORY Problem Relation Age of Onset Cancer Mother KIDNEY Coronary Artery Disease Mother Lipids Mother Stroke Mother Heart disease Mother Cancer Father LUNG other (fibromyalgia) Sister Heart Sister Prostate Cancer Brother Social History Tobacco Use Smoking status: Former Packs/day: 1.00 Years: 10.00 Additional pack years: 0.00 Total pack years: 10.00 Types: Cigarettes Quit date: 07/18/1971 Years since quittin.4 Smokeless tobacco: Never Vaping Use Vaping Use: Never used Substance Use Topics Alcohol use: Yes Comment: occasional, 2 beers a week Drug use: No Prior to Admission medications as of 12/20/23 1037 Medication Sig Last Dose Taking polyethylene glycol 3350 17 gram packet Take 17 g by mouth once daily. Dissolve dose in 4 - 8 ounces of liquid and take as directed. Taking Yes aspirin 81 mg chewable tablet Take 81 mg by mouth once daily. Patient reports taking one 81mg chewable tablet by mouth once daily. Taking Yes vitamin B complex (SUPER B COMPLEX ORAL) Take 1 tablet by mouth once daily. Taking Yes Magnesium Oxide 500 mg tab Take 1 tablet by mouth once daily. Taking Yes furosemide (LASIX) 40 mg tablet Take 40 mg by mouth as needed. Taking Yes allopurinol (ZYLOPRIM) 100 mg tablet take 1 tablet by mouth twice a day Taking Yes pantoprazole DR (PROTONIX) 20 mg tablet Take 1 tablet by mouth daily before breakfast. Take on empty stomach, 1/2 hr before meal. Taking Yes carvedilol (COREG) 6.25 mg tablet Take 1 tablet by mouth twice daily. Taking Yes simvastatin (ZOCOR) 20 mg tablet Take 1 tablet by mouth once daily. Taking Yes multivit with minerals/lutein (MULTIVITAMIN 50 PLUS ORAL) Take 1 tablet by mouth once daily. TakingYes apixaban (ELIQUIS) 5 mg tab(s) Take 5 mg by mouth twice daily. Taking Yes Lactobacillus acidophilus (ACIDOPHILUS ORAL) Take 1 capsule by mouth once daily. docusate sodium (DULCOLAX STOOL SOFTENER, DSS, ORAL) Take 1 tablet by mouth once daily. Patient not taking: Reported on 11/17/2023 hydrOXYchloroQUINE (PLAQUENIL) 200 mg tablet Take 200 mg by mouth twice daily. Patient not taking: Reported on 11/17/2023 Melatonin 5 mg cap Take 5 mg by mouth at bedtime as needed. sildenafil (VIAGRA) 100 mg tablet Take 1/2 to 1 tablet by mouth 1 hour prior to anticipated intercourse. Patient not taking: Reported on 11/17/2023 Medication Comments documented by Felicia Olguin RN on 07/16/2022 at 1659. Pt reports no med changes in the last month 07/16/2022TP ALLERGIES Allergen Reactions Spironolactone Other: See Comments Dizziness and severe headaches Indocin [Indomethac* Diarrhea Mobic [Meloxicam] Diarrhea Objective PHYSICAL EXAM: General: alert and oriented and healthy appearance. Pertinent negatives noted - not distressed. Skin: normal color, no rash or lesions. HEENT: No additional findings for patient's neck. Cardiovascular: regular rate and rhythm, normal S1 and S2, no rub, murmurs, or gallop. Respiratory: normal breath sounds, no wheezes or crackles. No chest wall deformity or tenderness. Abdomen: bowel sounds present and soft. Pertinent negatives noted - not tender. Extremities: no deformity, no edema or tenderness, no joint swelling or clubbing. Neurological: normal cognition and motor skills. Gait normal. No weakness or sensory deficit. PAIN ASSESSMENT: VITALS: BP 127/56 Pulse 61 Temp 97.9 Resp 16 Ht 5' 10 (1.78m) Wt 170 lb (77.1kg) SpO2 99% BMI 24.39 kg/(m^2). Diagnostic tests reviewed for today's visit: Lab Value Units Date High Low HB 11.5 g/dL 10/26/2023 17.0 13.0 HCT 36.0 % 10/26/2023 51.0 39.0 WBC 9.59 k/uL 10/26/2023 11.00 3.70 PLT 193 k/uL 10/26/2023 400 150 NA 141 mmol/L 08/22/2023 144 136 K 3.8 mmol/L 08/22/2023 5.1 3.7 GLUC 104 mg/dL 08/22/2023 99 74 BUN 22 mg/dL 08/22/2023 24 9 CREAT 1.21 mg/dL 08/22/2023 1.22 0.73 CREAT 1.00 mg/dL 11/11/2023 1.30 0.60 PTSEC No results within date range. INR No results within date range. APTT No results within date range. ALT 14 U/L 08/22/2023 54 10 AST 17 U/L 08/22/2023 40 14 TBILI 1.1 mg/dL 08/22/2023 1.3 0.2 TSH No results within date range. Lab Value Units Date High Low HCGQT No results within date range. UHCG No results within date range. HCG, BODY* No results within date range. Lab Value Units Date High Low ABORHD No results within date range. ABSCREEN No results within date range. Hemoglobin A1C (%) Date Value 10/06/2021 5.5 04/09/2021 5.5 HBA1C, [place] (%) Date Value 06/24/2010 5.2 06/06/2007 5.1 No results found for this or any previous visit (from the past 8760 hour(s)). Recent Results (from the past 26665 hour(s)) ECHO Collection Time: 03/29/23 9:34 AM Impression CONCLUSIONS: - Exam indication: Sustained atrial fibrillation - The left ventricle is normal [...] patient in sinus rhythm on todays exam. * * * Final * * * Implantable Devices: right shoulder, left hip and right knee replacements, IOL OU The Following Tests/Procedures Have Been Initiated: T/S, EKG, PT, BMP, CBC ordered per surgeon in Epic Assessment/Plan Diagnosis: Bilateral extracranial carotid artery stenosis [I65.23] PLAN Planned Procedure: Procedure(s): ENDARTERECTOMY CAROTID ADULT (Right) Instructions Given to Patient: Instructions located in the after visit summary. Patient given verbal and written preop instructions and voices comprehension and compliance. I spent a total of 50 minutes on the date of the service which included preparing to see the patient, [id number] patient care, completing clinical documentation, obtaining and/or reviewing separately obtained history, performing a medically appropriate examination, counseling and educating the pat ient/family/caregiver, and ordering medications, tests, or procedures. 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 Caba on 12/26/2023 Preop examination Patient has the following medical conditions which may affect judy-operative course addressed in assessment and plan today. Paroxysmal atrial fibrillation (HCC) Ablation 12/2022 Rate controlled with carvedilol Pt taking Eliquis I instructed patient to get preop instructions from surgeon and safety physician. Managed by Dr. 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 Vernon, last OV 05/19/2024 On Carvedilol, statin and ASA Cardiomyopathy, unspecified type ([facility]) ECHO 03/29/2023 CONCLUSIONS: - Exam indication: Sustained atrial fibrillation - The left ventricle is normal [...] the prior echocardiographic exam performed on 08/31/2022 ([place]). Mild improvement in the LV systolic function, patient in sinus rhythm on todays exam. BENIGN HYPERTENSION Controlled with carvedilol, instructed to take morning of surgery Gastroesophageal reflux disease Controlled with pantoprazole, instructed to take morning of surgery Anemia Hemoglobin (g/dL) Date Value 10/26/2023 11.5 09/25/2020 13.2 Hematocrit (%) Date Value 10/26/2023 36.0 09/25/2020 41.0 WBC (k/uL) Date Value 10/26/2023 9.59 09/25/2020 8.09 CBC today in PAT Mustafa Activity Status Index: METS: Participate in moderate recreational activites, such as golf, bowling, dancing, doubles tennis, or throwing a baseball or football (6.00 METs) DASI Score: 6 Patient denies any chest pain or undue shortness of breath with the above physical activity. ARISCAT Score: Age: 51-80 Preoperative SpO2: >=96% Respiratory infection in the last month: No Preoperative anemia: No Surgical incision: peripheral Duration of surgery: >3 hrs Emergency procedure: No ARISCAT Score: 26 ANESTHESIA FINDINGS: Intubation History: No history of difficult intubation. No abnormal airway history Significant Anesthesia Considerations: Airway History: No history of difficult airway No abnormal airway history I - PHYSICAL EVALUATION AIRWAY Patient intubated: No. DENTAL Dental findings: teeth intact. Dentures, upper: complete. II - ANESTHESIA PLAN Anesthetic Plan: general Beta Pepe Monitoring Plan Post Procedure Analgesic Plan Prepared for Surgery: optimally prepared for surgery. CONSULTS: Planned Anesthetic: general The Following Tests/Procedures Have Been Initiated: Orders Placed This Encounter polyethylene glycol 3350 17 gram packet Sig: Take 17 g by mouth once daily. Dissolve dose in 4 - 8 ounces of liquid and take as directed. REASON FOR VISIT: Shelton Fox is a 78 year old male who is scheduled for Procedure(s): ENDARTERECTOMY CAROTID ADULT (Right) at the request of Phi Andres MD for routine H&P. My final recommendation will be communicated back to the requesting physician by way of shared medical record or letter. The reason for this visit is to perform a comprehensive review of the patient's past medical history, assess their current health status and obtain any additional testing required based on anesthesiaguidelines. We will also identify any potential anesthesia problems or contraindications to the planned procedure. 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 Carotid Stenosis, Asymptomatic, Bilateral Shoulder Joint Replacement Shoulder Joint Replacement By Other Means Other Physical Therapy Shoulder Joint Replacement Status Gastroesophageal Reflux Disease Ed (Erectile Dysfunction) of Organic Origin Pad (Peripheral Artery Disease) (Hcc) Atrial Fibrillation (Hcc) Ischemic Cardiomyopathy Status Post Catheter Ablation of Atrial Fibrillation Paroxysmal Atrial Fibrillation (Hcc) Status Post Ablation of Atrial Flutter Dyspnea Coronary Artery Disease Involving [place] Coronary Artery of [place] Heart With Angina Pectoris (Hcc) Inflammatory Polyarthropathy (Hcc) History of Arthritis Former Smoker Anemia Dysphagia History of Colonic Polyps Cardiomyopathy, Unspecified Type (Hcc) Preop Examination COVID-19 Immunization Status Overdue - Covid-19 Vaccine () Overdue since 03/18/2023 06/01/2022 Imm Admin: COVID-19 vaccine, age 12+ yr, bivalent (MODERNA) 12/10/2021 Imm Admin: COVID-19 original vaccine, full dose, monovalent (MODERNA) 05/21/2021 Imm Admin: COVID-19 original vaccine, full dose, monovalent (MODERNA) Only the first 3 history entries have been loaded, but more history exists. CHIEF COMPLAINT: Bilateral extracranial carotid artery stenosis HPI: Patient is a 78 year old male here for a preoperative exam. Pt has a history of carotid arterystenosis. Recent US showed Common carotid artery: 50- 99% stenosis and internal carotid artery: 20-39% stenosis on the right. Common carotid artery: 50-99% stenosis and internal carotid artery: 60-79%stenosis on the left. Pt denies symptoms. Pt discussed with surgeon and agrees to surgical intervention. REVIEW OF SYSTEMS: General: Negative for: unintentional weight change, malaise and fever. Neurological: Positive for: headaches. Negative for: seizures and strokes. Respiratory: Negative for: asthma, COPD, tobacco use, URI < 2 weeks and obstructive sleep apnea. Cardiovascular: Positive for: atrial fibrillation, CAD, CHF, hyperlipidemia and hypertension Negative for: arrhythmia, chest pain and DVT/PE. GI: Positive for: GERD and liver disease Negative for: abdominal pain, nausea and vomiting. : Negative for: dysuria, hematuria and renal failure. Endocrine: Negative for: diabetes mellitus, hyperthyroidism and hypothyroidism. Hematology: Positive for: chronic anti-coagulation/platelet meds. Patient is on anti- coagulation/platelet medication(s): DOAC and Aspirin. Negative for: anemia, factor V Leiden and von Willebrand disease. Oncology: No history of CA metastasis, chemo within 30 days, or radiotherapy within 90 days. No history of oncological symptoms or problems. Psych: Negative for: anxiety and depression. Musculoskeletal: Negative for joint pain or swelling, back pain or muscle pain. Skin: Negative for lesions, rash and itching. PAST MEDICAL HISTORY Diagnosis Date Allergic rhinitis, cause unspecified Arthritis Atherosclerotic heart disease of [place] coronary artery without angina pectoris Atrial fibrillation (HCC) Avascular necrosis (HCC) Benign neoplasm of colon Bilateral extracranial carotid artery stenosis CAD (coronary artery disease) Cardiomyopathy (HCC) Chronic back pain Diverticulosis of colon (without [...] atrial fibrillation as well as typical atrial flutterwith Dr. Walker on 12/20/2022. Subclavian arterial stenosis (HCC) Unspecified atrial fibrillation (HCC) PAST SURGICAL HISTORY Procedure Laterality Date ARTHROPLASTY TOTAL SHOULDER 06/2011 Dr. Benitez. ARTHRP ACETBLR/PROX FEM PROSTC AGRFT/ALGRFT 04/2012 Dr. Wood> [facility]. ARTHRP KNE CONDYLE&PLATU MEDIAL&LAT COMPARTMENTS Right [...] HISTORY OF N/A 12/20/2022 EPS with Ablation, [facility] TONSILLECTOMY HX TONSILLECTOMY PRIMARY/SECONDARY <AGE 12 Tonsillectomy and adnoids FAMILY HISTORY Problem Relation Age of Onset Cancer Mother KIDNEY Coronary Artery Disease Mother Lipids Mother Stroke Mother Heart disease Mother Cancer Father LUNG other (fibromyalgia) Sister Heart Sister Prostate Cancer Brother Social History Tobacco Use Smoking status: Former Packs/day: 1.00 Years: 10.00 Additional pack years: 0.00 Total pack years: 10.00 Types: Cigarettes Quit date: 07/18/1971 Years since quittin.4 Smokeless tobacco: Never Vaping Use Vaping Use: Never used Substance Use Topics Alcohol use: Yes Comment: occasional, 2 beers a week Drug use: No Prior to Admission medications as of 12/20/23 1037 Medication Sig Last Dose Taking polyethylene glycol 3350 17 gram packet Take 17 g by mouth once daily. Dissolve dose in 4 - 8 ounces of liquid and take as directed. Taking Yes aspirin 81 mg chewable tablet Take 81 mg by mouth once daily. Patient reports taking one 81mg chewable tablet by mouth once daily. Taking Yes vitamin B complex (SUPER B COMPLEX ORAL) Take 1 tablet by mouth once daily. Taking Yes Magnesium Oxide 500 mg tab Take 1 tablet by mouth once daily. Taking Yes furosemide (LASIX) 40 mg tablet Take 40 mg by mouth as needed. Taking Yes allopurinol (ZYLOPRIM) 100 mg tablet take 1 tablet by mouth twice a day Taking Yes pantoprazole DR (PROTONIX) 20 mg tablet Take 1 tablet by mouth daily before breakfast. Take on empty stomach, 1/2 hr before meal. Taking Yes carvedilol (COREG) 6.25 mg tablet Take 1 tablet by mouth twice daily. Taking Yes simvastatin (ZOCOR) 20 mg tablet Take 1 tablet by mouth once daily. Taking Yes multivit with minerals/lutein (MULTIVITAMIN 50 PLUS ORAL) Take 1 tablet by mouth once daily. TakingYes apixaban (ELIQUIS) 5 mg tab(s) Take 5 mg by mouth twice daily. Taking Yes Lactobacillus acidophilus (ACIDOPHILUS ORAL) Take 1 capsule by mouth once daily. docusate sodium (DULCOLAX STOOL SOFTENER, DSS, ORAL) Take 1 tablet by mouth once daily. Patient not taking: Reported on 11/17/2023 hydrOXYchloroQUINE (PLAQUENIL) 200 mg tablet Take 200 mg by mouth twice daily. Patient not taking: Reported on 11/17/2023 Melatonin 5 mg cap Take 5 mg by mouth at bedtime as needed. sildenafil (VIAGRA) 100 mg tablet Take 1/2 to 1 tablet by mouth 1 hour prior to anticipated intercourse. Patient not taking: Reported on 11/17/2023 Medication Comments documented by Felicia Olguin RN on 07/16/2022 at 1659. Pt reports no med changes in the last month 07/16/2022TP ALLERGIES Allergen Reactions Spironolactone Other: See Comments Dizziness and severe headaches Indocin [Indomethac* Diarrhea Mobic [Meloxicam] Diarrhea Objective PHYSICAL EXAM: General: alert and oriented and healthy appearance. Pertinent negatives noted - not distressed. Skin: normal color, no rash or lesions. HEENT: No additional findings for patient's neck. Cardiovascular: regular rate and rhythm, normal S1 and S2, no rub, murmurs, or gallop. Respiratory: normal breath sounds, no wheezes or crackles. No chest wall deformity or tenderness. Abdomen: bowel sounds present and soft. Pertinent negatives noted - not tender. Extremities: no deformity, no edema or tenderness, no joint swelling or clubbing. Neurological: normal cognition and motor skills. Gait normal. No weakness or sensory deficit. PAIN ASSESSMENT: VITALS: BP 127/56 Pulse 61 Temp 97.9 Resp 16 Ht 5' 10 (1.78m) Wt 170 lb (77.1kg) SpO2 99% BMI 24.39 kg/(m^2). Diagnostic tests reviewed for today's visit: Lab Value Units Date High Low HB 11.5 g/dL 10/26/2023 17.0 13.0 HCT 36.0 % 10/26/2023 51.0 39.0 WBC 9.59 k/uL 10/26/2023 11.00 3.70 PLT 193 k/uL 10/26/2023 400 150 NA 141 mmol/L 08/22/2023 144 136 K 3.8 mmol/L 08/22/2023 5.1 3.7 GLUC 104 mg/dL 08/22/2023 99 74 BUN 22 mg/dL 08/22/2023 24 9 CREAT 1.21 mg/dL 08/22/2023 1.22 0.73 CREAT 1.00 mg/dL 11/11/2023 1.30 0.60 PTSEC No results within date range. INR No results within date range. APTT No results within date range. ALT 14 U/L 08/22/2023 54 10 AST 17 U/L 08/22/2023 40 14 TBILI 1.1 mg/dL 08/22/2023 1.3 0.2 TSH No results within date range. Lab Value Units Date High Low HCGQT No results within date range. UHCG No results within date range. HCG, BODY* No results within date range. Lab Value Units Date High Low ABORHD No results within date range. ABSCREEN No results within date range. Hemoglobin A1C (%) Date Value 10/06/2021 5.5 04/09/2021 5.5 HBA1C, [place] (%) Date Value 06/24/2010 5.2 06/06/2007 5.1 No results found for this or any previous visit (from the past 8760 hour(s)). Recent Results (from the past 98970 hour(s)) ECHO Collection Time: 03/29/23 9:34 AM Impression CONCLUSIONS: - Exam indication: Sustained atrial fibrillation - The left ventricle is normal [...] the prior echocardiographic exam performed on 08/31/2022 ([place]). Mild improvement in the LV systolic function, patient in sinus rhythm on todays exam. * * * Final * * * Implantable Devices: right shoulder, left hip and right knee replacements, IOL OU The Following Tests/Procedures Have Been Initiated: T/S, EKG, PT, BMP, CBC ordered per surgeon in Epic Assessment/Plan Diagnosis: Bilateral extracranial carotid artery stenosis [I65.23] PLAN Planned Procedure: Procedure(s): ENDARTERECTOMY CAROTID ADULT (Right) Instructions Given to Patient: Instructions located in the after visit summary. Patient given verbal and written preop instructions and voices comprehension and compliance. I spent a total of 50 minutes on the date of the service which included preparing to see the patient, [id number] patient care, completing clinical documentation, obtaining and/or reviewing separately obtained history, performing a medically appropriate examination, counseling and educating the pat ient/family/caregiver, and ordering medications, tests, or procedures. SIGNATURE: Heidy Bernstein APRN.CNP PATIENT NAME: Shelton Fox DATE: December 20, 2023 TIME: 11:00 AM PAGER/CONTACT #: documented in this encounterHolzer Health System06-03-2024 Instructions* Patient Instructions* Heidy Bernstein APRN.CNP - 12/19/2023 10:55 AM EDT PATIENT PREOPERATIVE INSTRUCTIONS Dr. Caba has scheduled you for your procedure at this surgery center: [facility]: [phone], [address] [id number] Please read below carefully for your personalized instructions. SURGERY DATE: 12/26/2023 Your surgeon's office will provide you with your ARRIVAL TIME for surgery. -If you have not received an arrival time by the afternoon before your surgery date, please follow up with your surgeon's office. - If you are scheduled for Tuesday surgery, please make sure you have your arrival time by Tuesday afternoon. -Please be aware that emergency situations arise, which may delay or change your surgical time. If this happens, your surgeon's office will notify you as soon as possible and regret any inconvenience. Dietary Restrictions: - Nothing to eat or drink after midnight except for a sip of water with approved medications. This is important because if you do, your surgery may have to be cancelled Blood Thinning Medications: Stop NSAIDS. -DO NOT TAKE (Ibuprofen, Advil, Aleve, Motrin, Naproxen, Celebrex, Mobic, Voltaren, Diclofenac etc.) 7 days before surgery, or as directed by your surgeon. You may take Tylenol as an alternative. IF YOU TAKE ANY OF THE FOLLOWING BLOOD THINNERS, PLEASE CONTACT YOUR SURGEON AND THE PHYSICIAN WHO PRESCRIBES IT FOR YOU IN ORDER TO GET PERIOPERATIVE INSTRUCTIONS SOON POSSIBLE. BLOOD THINNERS: Aspirin, Coumadin, Plavix, Eliquis, Pradaxa, Xarelto, Lovenox, Brilinta, Effient, Savaysa, Arixtra, etc - Stop Vitamin E, fish oil, multivitamins, Marijuana, CBD oil and other over the counter herbals and dietary supplements 7 days before surgery. -This would not apply to cancer patients who are prescribed Marinol or any other prescription form on marijuana or CBD. Medications: Hold YANIRA inhibitors (Angiotensin-converting enzyme inhibitors) and Angiotensin II receptor blockers(ARBs) Day of surgery. Approved medications to take the morning of surgery with a sip of water: BP (except for YANIRA inhibitors and ARBs), Heart, thyroid, psych, seizure, and pain medications excluding NSAIDS. Use inhalers as prescribed. Please bring inhalers day of surgery. Approved medications to take the morning of surgery with a sip of water: Pre-Surgery Med Instructions Medication Instructions polyethylene glycol 3350 17 gram packet Continue until night before surgery aspirin 81 mg chewable tablet As per surgeon's recommendation vitamin B complex (SUPER B COMPLEX ORAL) Continue until night before surgery Magnesium Oxide 500 mg tab Continue until night before surgery furosemide (LASIX) 40 mg tablet Hold morning of surgery allopurinol (ZYLOPRIM) 100 mg tablet Continue until night before surgery pantoprazole DR (PROTONIX) 20 mg tablet Take morning of surgery with sip of water, no other fluids carvedilol (COREG) 6.25 mg tablet Take morning of surgery with sip of water, no other fluids simvastatin (ZOCOR) 20 mg tablet Continue until night before surgery multivit with minerals/lutein (MULTIVITAMIN 50 PLUS ORAL) Stop 7 days before surgery apixaban (ELIQUIS) 5 mg tab(s) As per surgeon's recommendation If you take any medications for erectile dysfunction-Cialis (Tadalafil), Levitra, Staxyn (Vardenafil) Viagra (Sildenenafil please do not take these for 48 hours before surgery. If you start any new medications after today's visit, please contact the surgeon's office. Important Reminders: -You need a responsible person to stay and wait for you at the hospital or surgery center during your procedure. - -If you are undergoing an outpatient procedure you must have someone drive you home and stay withyou for 24 hours. Your surgery may be cancelled if you do not have someone to drive you home or take care of you for 24 hours. -- If you have a stimulator, implant or pump that requires a remote please bring the remote with you the day of surgery. - Candy, mints, and tobacco products are NOT permitted the morning of surgery. - Hearing aids, dentures and glasses may be worn the morning of surgery. - NO jewelry, body piercings, makeup, hairpins or contacts are to be worn the day of surgery. -If you use CPAP/BIPAP, you can bring the machine with you the day of surgery. - If you are prescribed inhalers for breathing, continue using them AND bring them to the surgery center. -- Leave ALL valuables and money at home or with family members. -Oral hygiene and a shower or bath are required the evening before or the morning of surgery. - NO lotion, creams, powders or deodorants on the skin the day of surgery. -Wear loose, comfortable clothing that will accommodate bandages. -Your length of stay will be determined by your surgeon - You will need to have someone else (Family or friend) drive you home once discharged from the hospital. You are not allowed to drive yourself home after surgery. Your ride home must be at least 18 years old or older. - YOU MUST HAVE A RESPONSIBLE CASEWORK SPECIALIST TO TAKE YOU HOME. A MATERIAL HANDLING EQUIPMENT STEVEDORE, CAB OR UBER CASEWORK SPECIALIST CANNOT BE MADE A RESPONSIBLE CASEWORK SPECIALIST. - You cannot stay in a hotel alone after outpatient surgery. You will not be permitted to have yoursurgery, if you do not have someone to take care of you. -It is recommended patients have a 72-hour period between getting their vaccine and date of surgery. If you develop symptoms such as a fever, cold, or flu, or have other changes to your health within TWO DAYS of scheduled surgery or the morning of surgery, please contact the surgery center above. Visitors to any [facility] facility: An individual who is sick should not visit. Visitors to patients with COVID-19 must follow these guidelines, which include wearing a mask, eye protection, gown and gloves. [facility]- Visitations are: Visitation hours are from 7 a.m. to 9 p.m. Pre- Surgery-Patients may have up to two visitors at a time. PACU-Patients may have up to 1-2 visitors at a time. Personal Belongings: -Please have your photo ID and insurance cards. -If you do not have a copy of advance directives on file with us, please bring a copy with you on the day of surgery. If you already have an Advance Directive, please fax a copy to [phone] or email to for it to be added to your chart. If you do not have an Advance Directive, you can find the appropriate form and more information at [email or web address]. We recommend that youcomplete the Advance Directive form found on the website and bring it with you the day of your surgery. It can be witnessed and scanned into your chart that day. documented in this encounterHolzer Health System05-24-2024 Telephone encounter Note * Telephone Encounter - Elena Watkins APRN.CNP - 12/09/2023 9:33 AM EDT Orders signed. Thank you, Elena Watkins APRN.CNP [facility] Work Phone: [phone] Miscellaneous Notes* Telephone Encounter - Elena Watkins APRN.CNP - 12/09/2023 9:33 AM EDT Orders signed. Thank you, Elena Watkins APRN.GANG HEMSTITCHING MACHINE OPERATOR documented in this encounterHolzer Health System05-23-2024 NoteHNO ID: [id number] Author: PHI CABA MD Service: ? Author Type: Physician Type: Progress Notes Filed: 12/08/2023 16:53 Note Text: Shelton Fox is a 78 year old male presents for evaluation of carotid disease. Pt was seen 11/17/23 with concerns for amarousis defined as R eye pressure and vision that turned silver and then black and lasted 20-30 min. He does have an extensive eye history and saw his opthomologist. A CTA done 05/2023 showed At least 50% stenosis of the proximal right ICA and 30% stenosis of the proximal left ICA by NASCET criteria Marked atherosclerotic calcification of the bilateral common carotid arteries with severe stenosis of the mid right common carotid artery. His CTA neck done 10/2023 was nondiagnostic due to poor timing of contrast, so it was repeated as was a carotid US and he sees me back today. He is on asa and plavix. CTA neck 11/24/23: Diffuse atherosclerotic changes along the length of the right greater than left common carotid arteries with high-grade stenosis of the proximal-mid portions on the right and mild-moderate stenosis of the mid-distal portions on the left. Moderate stenosis (50-60% right, 40-50% left) of each carotid bifurcation by NASCET criteria. His carotid US showed: R Common carotid artery: 50-99% stenosis. Elevated velocities mid vessel. Internal carotid artery: 20-39% stenosis. Findings may be underestimated due to calcified shadowing plaque from origin to proximal . L Common carotid artery: 50-99% stenosis. Elevated velocities mid vessel. Internal carotid artery: 60-79% stenosis. Unfortunately I cannot see the carotid US images due to where the study was done. We had a lengthy discussion with the pt and his as to the findings. Including the difference regarding if we consider this symptomatic or not. The degree of stenosis on each imaging and how that impacts recommendations in regards to carotid disease. The complicating factor of the significant CCA lesion on the right and how that impacts planning. He is not a TCAR candidate in my opinion due to the CCA disease. We discussed medical therapy vs TF carotid stenting vs CEA. I offered to send him to [facility] to discuss potential for TFCAS if he would like. Though it would likely require stenting all the way down the CCA for a longer distance. He declined referral. We also discussed CEA and potentially trying to do an extended endarterectomy to incorporate the CCA lesion. This is what he would like to do. He understands that it may not be possible to incorporate the lesion in the endarterectomy and he may need additional procedures. R/b/a/details of procedure and recovery discussed. SYMPTOMS: amaurosis We reviewed the symptoms of TIA/stroke including weakness or numbness in an extremity, slurred speech, facial droop, amaurosis fugax, and the pt does have any symptoms. The pt understands that he/she should call or go to the ED should any of these symptoms develop and that delay could result in stroke. We had an extensive discussion about carotid stenosis, risk factors, rationale for treatment and types of treatment including medical mgmt, carotid stent and carotid endarterectomy. Pt understands that the risk of stroke with asymptomatic CEA is 2-3%, the risk of stroke with symptomatic CEA is 3-5%, and the risk of cranial nerve injury is approx 2%. Other risks of open or endovascular treatment include but are not limited to bleeding, infection, re-stenosis, hematoma, DE, and . The pt understands that delay in treatment once it is indicated could result in stroke. PATIENT'S CURRENT TREATMENT: Aspirin, eliquis Statin: Yes Patient does not have a history of a CVA. Patient has not had previous carotid surgery RISK FACTORS: HISTORIES: PAST MEDICAL HISTORY Diagnosis Date Allergic rhinitis, cause unspecified Arthritis Atherosclerotic heart disease of [place] coronary artery without angina pectoris Atrial fibrillation [...] atrial fibrillation (HCC) PAST SURGICAL HISTORY Procedure La (more content not included)...[facility] 12-08-2023 History of Present illness Narrative* Phi Caba MD - 12/08/2023 3:34 PM EDT Shelton Fox is a 78 year old male presents for evaluation of carotid disease. Pt was seen 11/17/23 with concerns for amarousis defined as R eye pressure and vision that turned silver and then black and lasted 20-30 min. He does have an extensive eye history and saw his opthomologist. A CTA done 05/2023 showed At least 50% stenosis of the proximal right ICA and 30% stenosis of the proximal left ICA by NASCET criteria Marked atherosclerotic calcification of the bilateral common carotid arteries with severe stenosis of the mid right common carotid artery. His CTA neck done 10/2023 was nondiagnostic due to poor timing of contrast, so it was repeated as was a carotid US and he sees me back today. He is on asa and plavix. CTA neck 11/24/23: Diffuse atherosclerotic changes along the length of the right greater than left common carotid arteries with high-grade stenosis of the proximal-mid portions on the right and mild-moderate stenosis of the mid-distal portions on the left. Moderate stenosis (50-60% right, 40-50% left) of each carotid bifurcation by NASCET criteria. His carotid US showed: R Common carotid artery: 50-99% stenosis. Elevated velocities mid vessel. Internal carotid artery: 20-39% stenosis. Findings may be underestimated due to calcified shadowing plaque from origin to proximal . L Common carotid artery: 50-99% stenosis. Elevated velocities mid vessel. Internal carotid artery: 60-79% stenosis. Unfortunately I cannot see the carotid US images due to where the study was done. We had a lengthy discussion with the pt and his as to the findings. Including the difference regarding if we consider this symptomatic or not. The degree of stenosis on each imaging and how thatimpacts recommendations in regards to carotid disease. The complicating factor of the significant CCA lesion on the right and how that impacts planning. He is not a TCAR candidate in my opinion due to the CCA disease. We discussed medical therapy vs TF carotid stenting vs CEA. I offered to send [facility]to [facility] to discuss potential for TFCAS if he would like. Though it would likely require stenting allthe way down the CCA for a longer distance. He declined referral. We also discussed CEA and potentia lly trying to do an extended endarterectomy to incorporate the CCA lesion. This is what he would like to do. He understands that it may not be possible to incorporate the lesion in the endarterectomyand he may need additional procedures. R/b/a/details of procedure and recovery discussed. SYMPTOMS: amaurosis We reviewed the symptoms of TIA/stroke including weakness or numbness in an extremity, slurred speech, facial droop, amaurosis fugax, and the pt does have any symptoms. The pt understands that he/sheshould call or go to the ED should any of these symptoms develop and that delay could result in stroke. We had an extensive discussion about carotid stenosis, risk factors, rationale for treatment and types of treatment including medical mgmt, carotid stent and carotid endarterectomy. Pt understands that the risk of stroke with asymptomatic CEA is 2-3%, the risk of stroke with symptomatic CEA is 3-5%, and the risk of cranial nerve injury is approx 2%. Other risks of open or endovascular treatment include but are not limited to bleeding, infection, re-stenosis, hematoma, DE, and . The pt understands that delay in treatment once it is indicated could result in stroke. PATIENT'S CURRENT TREATMENT: Aspirin, eliquis Statin: Yes Patient does not have a history of a CVA. Patient has not had previous carotid surgery RISK FACTORS: HISTORIES: PAST MEDICAL HISTORY Diagnosis Date Allergic rhinitis, cause unspecified Arthritis Atherosclerotic heart disease of [place] coronary artery without angina pectoris Atrial fibrillation [...] atrial fibrillation as well as typical atrial flutterwith Dr. Walker on 12/20/2022. Subclavian arterial stenosis (HCC) Unspecified atrial fibrillation (HCC) PAST SURGICAL HISTORY Procedure Laterality Date ARTHROPLASTY TOTAL SHOULDER 06/2011 Dr. Benitez. ARTHRP ACETBLR/PROX FEM PROSTC AGRFT/ALGRFT 04/2012 Dr. Wood> [facility] ARTHRP KNE CONDYLE&PLATU MEDIAL&LAT COMPARTMENTS Right [...] HISTORY OF N/A 12/20/2022 EPS with Ablation, [facility] TONSILLECTOMY HX TONSILLECTOMY PRIMARY/SECONDARY <AGE 12 Tonsillectomy and adnoids Social History Tobacco Use Smoking status: Former Packs/day: 1.00 Years: 10.00 Additional pack years: 0.00 Total pack years: 10.00 Types: Cigarettes Quit date: 07/18/1971 Years since quittin.4 Smokeless tobacco: Never Vaping Use Vaping Use: Never used Substance Use Topics Alcohol use: Not Currently Comment: occasional Drug use: No MEDICATIONS: Current Outpatient Medications Medication Sig aspirin 81 mg chewable tablet Take 81 mg by mouth once daily. Patient reports taking one 81mg chewable tablet by mouth once daily. predniSONE (DELTASONE) 2.5 mg tablet Take 2.5 mg by mouth once daily. Lactobacillus acidophilus (ACIDOPHILUS ORAL) Take 1 capsule by mouth once daily. vitamin B complex (SUPER B COMPLEX ORAL) Take 1 tablet by mouth once daily. Magnesium Oxide 500 mg tab Take 1 tablet by mouth once daily. furosemide (LASIX) 40 mg tablet Take 40 mg by mouth as needed. allopurinol (ZYLOPRIM) 100 mg tablet take 1 tablet by mouth twice a day pantoprazole DR (PROTONIX) 20 mg tablet Take 1 tablet by mouth daily before breakfast. Take on empty stomach, 1/2 hr before meal. carvedilol (COREG) 6.25 mg tablet Take 1 tablet by mouth twice daily. simvastatin (ZOCOR) 20 mg tablet Take 1 tablet by mouth once daily. multivit with minerals/lutein (MULTIVITAMIN 50 PLUS ORAL) Take 1 tablet by mouth once daily. apixaban (ELIQUIS) 5 mg tab(s) Take 5 mg by mouth twice daily. Melatonin 5 mg cap Take 5 mg by mouth at bedtime as needed. docusate sodium (DULCOLAX STOOL SOFTENER, DSS, ORAL) Take 1 tablet by mouth once daily. (Patient not taking: Reported on 11/17/2023) hydrOXYchloroQUINE (PLAQUENIL) 200 mg tablet Take 200 mg by mouth twice daily. (Patient not taking:Reported on 11/17/2023) sildenafil (VIAGRA) 100 mg tablet Take 1/2 to 1 tablet by mouth 1 hour prior to anticipated intercourse. (Patient not taking: Reported on 11/17/2023) No current facility-administered medications for this visit. ALLERGIES: ALLERGIES Allergen Reactions Indocin [Indomethac* Diarrhea Mobic [Meloxicam] Diarrhea PHYSICAL EXAM: General appearance: Normal, healthy, well nourished, alert and cooperative individual, in no acute distress. Skin: No lesions, rashes or ulcerations; normal color and turgor. Pulmonary: No wheezing or rhonchi. Breathing unlabored on RA Upper Extremities: Normal exam of the upper extremities. No clubbing, cyanosis, or edema. Neuro: Awake, alert, and oriented., Gait normal. Sensation grossly intact., CN II-XII grossly intact. IMPRESSION: Carotid Artery Disease: Discussion of carotid artery disease is undertaken with Shelton. The implications of both symptomatic and asymptomatic carotid artery disease are discussed with specific regardto his problem. Different alternatives including medical management [...] it's attendant risks of stroke is discussed. In addition, the risks and benefits of carotid stenting are compared with carotid endarterectomy and discussed with the patient given the patient's age and medical condition. The current indications for carotid stenting are discu ssed with the patient as well as the current indication for carotid endarterectomy. Risks of both carotid endarterectomy and carotid stenting including , stroke, hemorrhage, infection, nerve injury are discussed with regard to each of the procedures. The patient and family are asked for any que stions and questions are answered with regard to the different procedures, the hospital procedure, the hospital course, the length of stay, and the recovery associated with each of the procedures as well as the expected outcomes of medical management. PLAN: Right carotid endarterectomy with extended incision for CCA Consent signed Continue sean crooks before surgery Phi Caba MD I spent 25 minutes in the visit, with more than 50% of the total [id number] time of the visit in counseling / coordination of care. documented in this encounterCleveland [id number] Telephone encounter Note * Telephone Encounter - Keila Renteria LPN - 11/25/2023 3:51 PM EDT This Nurse spoke to Dr. Caba in regard to prior Telephone Encounter. Dr. Caba states that these test do show different things however if co-pay for CT scan on Tuesday is high it would be up to the patient to not get it. Patient has an upcoming appointment to discuss CT scan results. This Nurse returned call to patient and advised per above. Patient states he will get test scheduled on 11/28/2023. Keila Renteria LPN November 25, 2023 3:53 PM [facility]05-10-2024 Miscellaneous Notes* Telephone Encounter - Keila Renteria LPN - 11/25/2023 3:51 PM EDT This Nurse spoke to Dr. Caba in regard to prior Telephone Encounter. Dr. Caba states that these test do show different things however if co-pay for CT scan on Tuesday is high it would be up to the patient to not get it. Patient has an upcoming appointment to discuss CT scan results. This Nurse returned call to patient and advised per above. Patient states he will get test scheduled on 11/28/2023. Keila Renteria LPN November 25, 2023 3:53 PM * Telephone Encounter - Keila Renteria LPN - 11/25/2023 12:00 PM EDT Spouse, Courtney, calling in and left message that patient had a CT scan yesterday and wants to discuss those results as well as ask, if US that is scheduled for Tuesday, November 28, 2023, is necessary? They have a high co-pay but if US will assistance and guide on additional information to help patient they will do it. Keila Renteria LPN November 25, 2023 12:02 PM documented in this encounterHolzer Health System05-10-2024 Telephone encounter Note * Telephone Encounter - Keila Renteria LPN - 11/25/2023 12:00 PM EDT Spouse, Courtney, calling in and left message that patient had a CT scan yesterday and wants to discuss those results as well as ask, if US that is scheduled for Tuesday, November 28, 2023, is necessary? They have a high co-pay but if US will assistance and guide on additional information to help patient they will do it. Keila Renteria LPN November 25, 2023 12:02 PM [facility]05-09-2024 History of Present illness Narrative* Meme Mcgovern CT - 11/24/2023 10:00 AM EDT Radiology Service Progress Note DATE OF SERVICE: November 24, 2023 TIME: 11:00 AM PATIENT IDENTITY VERIFICATION COMPLETED USING TWO (2) STANDARD IDENTIFIERS: Name and Date of confirmed by patient verbally. FALL SCREENING: Has the patient had 2 falls in the last year or 1 fall with injury or currently using an Ambulatory Assistive Device (Walker, Cane, Wheelchair, Crutches, etc.)? No PATIENT GENDER DATA: Male PATIENT RELEVANT IMPLANT DATA REVIEWED: Not Applicable PATIENT PRESENTS WITH AN IMPLANTABLE OR ATTACHED TONE REGULATOR: No ALLERGIES: Reviewed and unchanged CONTRAST ALLERGY: NO. EXAM: CT -CONTRAST INDUCED NEPHROPATHY RISK FACTORS: Patient age > 60 years CREATININE: Creatinine Date Value Ref Range Status 08/22/2023 1.21 0.73 - 1.22 mg/dL Final 07/21/2023 1.16 0.73 - 1.22 mg/dL Final Creatinine (POCT) Date Value Ref Range Status 11/11/2023 1.00 0.60 - 1.30 mg/dL Final eGFR (POCT) Date Value Ref Range Status 11/11/2023 >60 mL/min/1.73 m2 Final eGFR- Date Value Ref Range Status 04/09/2021 >60 Final P.O.C.T. RESULTS: POC done: Yes, See Lab Tab November 24, 2023 TREATMENT: N/A PERIPHERAL IV DATA: Ambulatory: A peripheral IV was started in the Right antecubital site with a Angio cath: 20 gauge. RADIOLOGY DEPARTMENT: CT; Exam(s) Completed: CTA Brain and CTA Neck SIGNATURE: MARIA T Sherman PATIENT NAME: Shelton Fox DATE: November 24, 2023 TIME: 11:00 AM documented in this encounterHolzer Health System05-02-2024 NoteHNO ID: [id number] Author: PHI CABA MD Service: ? Author Type: Physician Type: Progress Notes Filed: 11/25/2023 15:45 Note Text: Carotid stenosisShelton Fox is a 78 year old male presents for initial evaluation of carotid disease and concerns for amarousis. The pt states that 1 week ago he complained of R eye pressure and that his vision turned silver and then it turned black. It lasted 20-30 min. There was no shade coming down. He went to his opthomologist, he has had extensive eye history. The opthomologist considered possible temporal arteritis (though labs were negative) and amarosis, and they sent him to his pcp who referred to us. Per the pt and his , they did not find plaques in his eye. Pt is prior [facility] pt who was seen by me 02/2022 for 50% B ICa stenosis. He had a CTA neck 05/2023 that showed: At least 50% stenosis of the proximal right ICA and 30% stenosis of the proximal left ICA by NASCET criteria Marked atherosclerotic calcification of the bilateral common carotid arteries with severe stenosis of the mid right common carotid artery. He has a carotid US pending. He had a CTA neck 10/2023 that showed:CTA neck is nondiagnostic. Extensive atherosclerosis in bilateral common carotid arteries and proximal internal carotid arteries. Repeat CTA neck may be considered The CTA was very poorly timed for his arterial circulation. Additionally, he was recently taken off plavix the end of september after he had cardiac stents. He was resumed on asa by our office after this occurred. SYMPTOMS: Amaurosis possibly We reviewed the symptoms of TIA/stroke including weakness or numbness in an extremity, slurred speech, facial droop, and the pt denies any other symptoms. The pt understands that he/she should call or go to the ED should any of these symptoms develop and that delay could result in stroke. We had an extensive discussion about carotid stenosis, risk factors, rationale for treatment and types of treatment including medical mgmt, carotid stent and carotid endarterectomy. PATIENT'S CURRENT TREATMENT: Aspirin eliquis Statin: Yes HISTORIES: PAST MEDICAL HISTORY Diagnosis Date Allergic rhinitis, cause unspecified Arthritis Atherosclerotic heart disease of [place] coronary artery without angina pectoris Atrial fibrillation [...] ACETBLR/PROX FEM PROSTC AGRFT/ALGRFT 04/2012 Dr. Wood> [facility]. ARTHRP KNE CONDYLEANDPLATU MEDIALANDLAT COMPARTMENTS Right COLONOSCOPY [...] HISTORY OF N/A 12/20/2022 EPS with Ablation, [facility] TONSILLECTOMY HX TONSILLECTOMY PRIMARY/SECONDARY Tonsillectomy and adnoids Social History Tobacco Use Smoking status: Former Packs/day: 1.00 Years: 10.00 Additional pack years: 0.00 Total pack years: 10.00 Types: Cigarettes Quit date: 07/18/1971 Years since quittin.3 Smokeless tobacco: Never Vaping Use Vaping Use: Never used Substance Use Topics Alcohol use: Not Currently Comment: occasional Drug use: No MEDICATIONS: Current Outpatient Medications Medication Sig aspirin 81 mg chewable tablet Take 81 mg by mouth once daily. Patient reports taking one 81mg chewable tablet by mouth once daily. predniSONE (DELTASONE) 2.5 mg tablet Take 2.5 mg by mouth once daily. Lactobacillus acidophilus (ACIDOPHILUS ORAL) Take 1 capsule by mouth once daily. vitamin B complex (SUPER B COMPLEX ORAL) Take 1 tablet by mouth once daily. (more content not included)...[facility]05-02-2024 History of Present illness Narrative* Phi Caba MD - 11/17/2023 4:18 PM EDT Carotid stenosisShelton Fox is a 78 year old male presents for initial evaluation of carotid disease and concerns for amarousis. The pt states that 1 week ago he complained of R eye pressure and that his vision turned silver andthen it turned black. It lasted 20-30 min. There was no shade coming down. He went to his opthomologist, he has had extensive eye history. The opthomologist considered possible temporal arteritis (though labs were negative) and amarosis, and they sent him to his pcp who referred to us. Per the pt and his , they did not find plaques in his eye. Pt is prior [facility] pt who was seen by me 02/2022 for 50% B ICa stenosis. He had a CTA neck 05/2023 that showed: At least 50% stenosis of the proximal right ICA and 30% stenosis of the proximal left ICA by NASCET criteria Marked atherosclerotic calcification of the bilateral common carotid arteries with severe stenosis of the mid right common carotid artery. He has a carotid US pending. He had a CTA neck 10/2023 that showed:CTA neck is nondiagnostic. Extensive atherosclerosis in bilateral common carotid arteries and proximal internal carotid arteries. Repeat CTA neck may be considered The CTA was very poorly timed for his arterial circulation. Additionally, he was recently taken off plavix the end of september after he had cardiac stents. He was resumed on asa by our office after this occurred. SYMPTOMS: Amaurosis possibly We reviewed the symptoms of TIA/stroke including weakness or numbness in an extremity, slurred speech, facial droop, and the pt denies any other symptoms. The pt understands that he/she should call or go to the ED should any of these symptoms develop and that delay could result in stroke. We had an extensive discussion about carotid stenosis, risk factors, rationale for treatment and types of treatment including medical mgmt, carotid stent and carotid endarterectomy. PATIENT'S CURRENT TREATMENT: Aspirin eliquis Statin: Yes HISTORIES: PAST MEDICAL HISTORY Diagnosis Date Allergic rhinitis, cause unspecified Arthritis Atherosclerotic heart disease of [place] coronary artery without angina pectoris Atrial fibrillation [...] atrial fibrillation as well as typical atrial flutterwith Dr. Walker on 12/20/2022. Subclavian arterial stenosis (HCC) Unspecified atrial fibrillation (HCC) PAST SURGICAL HISTORY Procedure Laterality Date ARTHROPLASTY TOTAL SHOULDER 06/2011 Dr. Benitez. ARTHRP ACETBLR/PROX FEM PROSTC AGRFT/ALGRFT 04/2012 Dr. Wood> [facility]. ARTHRP KNE CONDYLE&PLATU MEDIAL&LAT COMPARTMENTS Right COLONOSCOPY [...] HISTORY OF N/A 12/20/2022 EPS with Ablation, [facility] TONSILLECTOMY HX TONSILLECTOMY PRIMARY/SECONDARY <AGE 12 Tonsillectomy and adnoids Social History Tobacco Use Smoking status: Former Packs/day: 1.00 Years: 10.00 Additional pack years: 0.00 Total pack years: 10.00 Types: Cigarettes Quit date: 07/18/1971 Years since quittin.3 Smokeless tobacco: Never Vaping Use Vaping Use: Never used Substance Use Topics Alcohol use: Not Currently Comment: occasional Drug use: No MEDICATIONS: Current Outpatient Medications Medication Sig aspirin 81 mg chewable tablet Take 81 mg by mouth once daily. Patient reports taking one 81mg chewable tablet by mouth once daily. predniSONE (DELTASONE) 2.5 mg tablet Take 2.5 mg by mouth once daily. Lactobacillus acidophilus (ACIDOPHILUS ORAL) Take 1 capsule by mouth once daily. vitamin B complex (SUPER B COMPLEX ORAL) Take 1 tablet by mouth once daily. Magnesium Oxide 500 mg tab Take 1 tablet by mouth once daily. furosemide (LASIX) 40 mg tablet Take 40 mg by mouth as needed. allopurinol (ZYLOPRIM) 100 mg tablet take 1 tablet by mouth twice a day pantoprazole DR (PROTONIX) 20 mg tablet Take 1 tablet by mouth daily before breakfast. Take on empty stomach, 1/2 hr before meal. carvedilol (COREG) 6.25 mg tablet Take 1 tablet by mouth twice daily. simvastatin (ZOCOR) 20 mg tablet Take 1 tablet by mouth once daily. multivit with minerals/lutein (MULTIVITAMIN 50 PLUS ORAL) Take 1 tablet by mouth once daily. apixaban (ELIQUIS) 5 mg tab(s) Take 5 mg by mouth twice daily. Melatonin 5 mg cap Take 5 mg by mouth at bedtime as needed. docusate sodium (DULCOLAX STOOL SOFTENER, DSS, ORAL) Take 1 tablet by mouth once daily. (Patient not taking: Reported on 11/17/2023) hydrOXYchloroQUINE (PLAQUENIL) 200 mg tablet Take 200 mg by mouth twice daily. (Patient not taking:Reported on 11/17/2023) sildenafil (VIAGRA) 100 mg tablet Take 1/2 to 1 tablet by mouth 1 hour prior to anticipated intercourse. (Patient not taking: Reported on 11/17/2023) No current facility-administered medications for this visit. ALLERGIES: ALLERGIES Allergen Reactions Indocin [Indomethac* Diarrhea Mobic [Meloxicam] Diarrhea PHYSICAL EXAM: General appearance: Normal, healthy, well nourished, alert and cooperative individual, in no acute distress. Skin: No lesions, rashes or ulcerations; normal color and turgor. Pulmonary: No wheezing or rhonchi. Breathing unlabored on RA Upper Extremities: Normal exam of the upper extremities. No clubbing, cyanosis, or edema. Neuro: Awake, alert, and oriented., Gait normal. Sensation grossly intact., CN II-XII grossly intact. IMPRESSION: Carotid Artery Disease: Discussion of carotid artery disease is undertaken with Shelton. The implications of both symptomatic and asymptomatic carotid artery disease are discussed with specific regardto his problem. Different alternatives including medical management [...] it's attendant risks of stroke is discussed. In addition, the risks and benefits of carotid stenting are compared with carotid endarterectomy and discussed with the patient given the patient's age and medical condition. The current indications for carotid stenting are discu ssed with the patient as well as the current indication for carotid endarterectomy. Risks of both carotid endarterectomy and carotid stenting including , stroke, hemorrhage, infection, nerve injury are discussed with regard to each of the procedures. The patient and family are asked for any que stions and questions are answered with regard to the different procedures, the hospital procedure, the hospital course, the length of stay, and the recovery associated with each of the procedures as well as the expected outcomes of medical management. PLAN: Repeat CTA neck and carotid US F/u 2-3 weeks after imaging Continue asa May need NIL involvement depending on involvement of [facility] Call with question or changes in symptoms Phi Caba MD I spent 25 minutes in the visit, with more than 50% of the total [id number] time of the visit in counseling / coordination of care. documented in this encounterHolzer [facility] System04-26-[facility]24 Telephone encounter Note * Telephone Encounter - Elena Watkins APRN.CNP - 11/11/2023 3:32 PM EDT Reviewed pt's CTA report - unfortunately CTA neck non-diagnostic. I called and spoke with pt & . Pt continues to remain asymptomatic. Discussed that scan didnot show current degree of carotid stenosis, and that I am unsure as to how/why. Noted that pt recently stopped plavix d/t anemia, and asked that he start baby asa for anti-platelet therapy, and asked if he could come in this coming week to discuss recent symptoms with Dr. Caba (can even review scan, even though report says nondiagnostic). Pt & agree. Noted again that should pt have any further symptoms ---- symptoms reviewed ---- he needs to go to the ED for urgent evaluation, and both agree. Will continue current medications and add baby asa for the time being. Will see JZ next week as discussed. Pt will continue with scheduled testing (MRI) and follow-up with PCP regarding recent labs. Elena Watkins APRN.CNP [facility]04-[facility] Miscellaneous Notes* Telephone Encounter - Elena Watkins APRN.CNP - 11/11/2023 3:32 PM EDT Reviewed pt's CTA report - unfortunately CTA neck non-diagnostic. I called and spoke with pt & . Pt continues to remain asymptomatic. Discussed that scan didnot show current degree of carotid stenosis, and that I am unsure as to how/why. Noted that pt recently stopped plavix d/t anemia, and asked that he start baby asa for anti-platelet therapy, and asked if he could come in this coming week to discuss recent symptoms with Dr. Caba (can even review scan, even though report says nondiagnostic). Pt & agree. Noted again that should pt have any further symptoms ---- symptoms reviewed ---- he needs to go to the ED for urgent evaluation, and both agree. Will continue current medications and add baby asa for the time being. Will see JZ next week as discussed. Pt will continue with scheduled testing (MRI) and follow-up with PCP regarding recent labs. Elena Watkins APRN.LIZET documented in this encounterHolzer Health System04-26-2024 History of Present illness Narrative* Karie Sam RT(Joe) - 11/11/2023 1:00 PM EDT Radiology Service Progress Note DATE OF SERVICE: November 11, 2023 TIME: 1:42 PM PATIENT IDENTITY VERIFICATION COMPLETED USING TWO [...] PATIENT RELEVANT IMPLANT DATA REVIEWED: Not Applicable PATIENT PRESENTS WITH AN IMPLANTABLE OR ATTACHED TONE REGULATOR: No ALLERGIES: Reviewed and unchanged CONTRAST ALLERGY: NO. EXAM: CT -CONTRAST INDUCED NEPHROPATHY RISK FACTORS: Patient age > 60 years CREATININE: Creatinine Date Value Ref Range Status 08/22/2023 1.21 0.73 - 1.22 mg/dL Final 07/21/2023 1.16 0.73 - 1.22 mg/dL Final Creatinine (POCT) Date Value Ref Range Status 11/11/2023 1.00 0.60 - 1.30 mg/dL Final eGFR (POCT) Date Value Ref Range Status 11/11/2023 >60 mL/min/1.73 m2 Final eGFR- Date Value Ref Range Status 04/09/2021 >60 Final P.O.C.T. RESULTS: POC done: Yes, See Lab Tab November 11, 2023 TREATMENT: N/A PERIPHERAL IV DATA: Ambulatory: A peripheral IV was started in the Left antecubital site with a Angio cath: 20 gauge. RADIOLOGY DEPARTMENT: CT; Exam(s) Completed: CTA Brain and CTA Neck SIGNATURE: RT Sarah(Joe) PATIENT NAME: Shelton Fox DATE: November 11, 2023 TIME: 1:42 PM documented in this encounterHolzer Health System04-26-2024 NoteHNO ID: [id number] Author: KARIE SAM RT(Joe) Service: Radiology Author Type: Technologist Type: Progress Notes Filed: 11/11/2023 13:44 Note Text: Radiology Service Progress Note DATE OF SERVICE: November 11, 2023 TIME: 1:42 PM PATIENT IDENTITY VERIFICATION COMPLETED USING TWO [...] PATIENT RELEVANT IMPLANT DATA REVIEWED: Not Applicable PATIENT PRESENTS WITH AN IMPLANTABLE OR ATTACHED TONE REGULATOR: No ALLERGIES: Reviewed and unchanged CONTRAST ALLERGY: NO. EXAM: CT -CONTRAST INDUCED NEPHROPATHY RISK FACTORS: Patient age > 60 years CREATININE: Creatinine Date Value Ref Range Status 08/22/2023 1.21 0.73 - 1.22 mg/dL Final 07/21/2023 1.16 0.73 - 1.22 mg/dL Final Creatinine (POCT) Date Value Ref Range Status 11/11/2023 1.00 0.60 - 1.30 mg/dL Final eGFR (POCT) Date Value Ref Range Status 11/11/2023 >60 mL/min/1.73 m2 Final eGFR- Date Value Ref Range Status 04/09/2021 >60 Final P.O.C.T. RESULTS: POC done: Yes, See Lab Tab November 11, 2023 TREATMENT: N/A PERIPHERAL IV DATA: Ambulatory: A peripheral IV was started in the Left antecubital site with a Angio cath: 20 gauge. RADIOLOGY DEPARTMENT: CT; Exam(s) Completed: CTA Brain and CTA Neck SIGNATURE: RT Sarah(Joe) PATIENT NAME: Shelton Fox DATE: November 11, 2023 TIME: 1:42 [facility]04-26-2024 Telephone encounter Note* Telephone Encounter - Elena Watkins APRN.CNP - 11/11/2023 9:39 AM EDT I spoke with pt's . Reports vision loss happened a couple of days ago, lasted somewhere between 10- 20 minutes and resolved. Has not happened again. Went to see eye doctor. Eye doctor was very concerned and advised ED; pt declined. Eye doc phoned PCP to discuss. PCP advised ED; pt declined. PCP ordered outpt testing and to call Vascular. Pt has Carotid US and MRI (has chronic neck issues and is following with ortho not associated with [facility] in [place]) scheduled on Tuesday. Pt believes MRI should show what needs to be evaluated and continues to decline ED. Has not had any repeat vision loss. Continues to report dizziness, which apparently has been an ongoing issue since last Fall --- note CTA done in May at which time R ICA 50% stenosis). Pt/ report compliant with Eliquis (which pt takes for a-fib). --per chart review, appear plavixwas discontinued per heme/onc for some ongoing anemia issues. Discussed that recommend ED, though would consider stat CTA h/n outpt since not CURRENTLY symptomatic, noting that if ANY symptoms recur, he should go the ED immediately for attention/evaluation/possible intervention. Ry notes that she may try to convince pt to go to the ED now, but she's not hopeful that he will agree, and would like to schedule CTA and that she will get him to wherever they can do the scan. Will proceed with scheduling CTA head/neck. Elena Watkins APRN.LIZET [facility]04-26-2024 Miscellaneous Notes* Telephone Encounter - Elena Watkins APRN.LIZET - 11/11/2023 9:39 AM EDT I spoke with pt's . Reports vision loss happened a couple of days ago, lasted somewhere between 10- 20 minutes and resolved. Has not happened again. Went to see eye doctor. Eye doctor was very concerned and advised ED; pt declined. Eye doc phoned PCP to discuss. PCP advised ED; pt declined. PCP ordered outpt testing and to call Vascular. Pt has Carotid US and MRI (has chronic neck issues and is following with ortho not associated with [facility] in [place]) scheduled on Tuesday. Pt believes MRI should show what needs to be evaluated and continues to decline ED. Has not had any repeat vision loss. Continues to report dizziness, which apparently has been an ongoing issue since last Fall --- note CTA done in May at which time R ICA 50% stenosis). Pt/ report compliant with Eliquis (which pt takes for a-fib). --per chart review, appear plavixwas discontinued per heme/onc for some ongoing anemia issues. Discussed that recommend ED, though would consider stat CTA h/n outpt since not CURRENTLY symptomatic, noting that if ANY symptoms recur, he should go the ED immediately for attention/evaluation/possible intervention. Ry notes that she may try to convince pt to go to the ED now, but she's not hopeful that he will agree, and would like to schedule CTA and that she will get him to wherever they can do the scan. Will proceed with scheduling CTA head/neck. Elena Watkins APRN.GANG HEMSTITCHING MACHINE OPERATOR * Telephone Encounter - Keila Renteria LPN - 11/11/2023 9:05 AM EDT This Nurse spoke to patient. Patient is resistant to going to Emergency Department when speaking with this Nurse. Patient reiterates that he is getting an MRI on Tuesday and US which was Ordered for neck pain. Patient states he feels this is his carotids due to issues he has been experiencing. This Nurse explained that the MRI nor US is not what we need for vascular and CAT is being Ordered STAT. Patient states he is currently not having vision loss or experiencing any symptoms of vision loss. Patient verbalizes that he doesn't know what he should do and for this Nurse to contact his who is a Nurse. This Nurse contacted spouse, Ry, but no answer. This Nurse left a voice message requesting a return call, providing our phone number. As this Nurse was reporting to SOLID PROPELLANT PROCESSOR at the same time spouse, Ry, returned call and SOLID PROPELLANT PROCESSOR spoke to spouse. Keila Renteria LPN November 11, 2023 9:07 AM * Telephone Encounter - Elena Watkins APRN.LIZET - 11/11/2023 8:17 AM EDT Well, upon looking at his chart, it looks like he was already advised to go to the ED, which is theright thing to do, because if he is having symptoms, he does need urgent evaluation and treatment..... That said, if he's not CURRENTLY having symptoms, I guess we can order a CTA to be done outpt STAT,which we can schedule, but they may need to be a little flexible with where to get the scan done (will be scheduled next available), unless pt does just want to go to the nearest ED for a scan...... I've placed an order for the STAT CTA, so pt need to let us know what he'd like to do -- we can getthat scheduled if that's what he'd prefer. Thanks, Elena Watkins APRN.GANG HEMSTITCHING MACHINE OPERATOR * Telephone Encounter - Keila Renteria LPN - 11/10/2023 4:53 PM EDT Spouse, Courtney, calling in and left message on Nurse's Line that patient recently has had symptoms of vision loss. PCP is Ordering blood work and ultrasound. Spouse is asking from vascular standpoint, how do they proceed? Keila Renteria LPN November 10, 2023 4:55 PM documented in this encounterHolzer Health System04-26-2024 Telephone encounter Note * Telephone Encounter - Keila Renteria LPN - 11/11/2023 9:05 AM EDT This Nurse spoke to patient. Patient is resistant to going to Emergency Department when speaking with this Nurse. Patient reiterates that he is getting an MRI on Tuesday and US which was Ordered for neck pain. Patient states he feels this is his carotids due to issues he has been experiencing. This Nurse explained that the MRI nor US is not what we need for vascular and CAT is being Ordered STAT. Patient states he is currently not having vision loss or experiencing any symptoms of vision loss. Patient verbalizes that he doesn't know what he should do and for this Nurse to contact his who is a Nurse. This Nurse contacted spouse, Ry, but no answer. This Nurse left a voice message requesting a return call, providing our phone number. As this Nurse was reporting to SOLID PROPELLANT PROCESSOR at the same time spouse, Ry, returned call and SOLID PROPELLANT PROCESSOR spoke to spouse. Keila Renteria LPN November 11, 2023 9:07 AM [facility]04-[facility] Telephone encounter Note* Telephone Encounter - Elena Watkins APRN.CNP - 11/11/2023 8:17 AM EDT Well, upon looking at his chart, it looks like he was already advised to go to the ED, which is theright thing to do, because if he is having symptoms, he does need urgent evaluation and treatment..... That said, if he's not CURRENTLY having symptoms, I guess we can order a CTA to be done outpt STAT,which we can schedule, but they may need to be a little flexible with where to get the scan done (will be scheduled next available), unless pt does just want to go to the nearest ED for a scan...... I've placed an order for the STAT CTA, so pt need to let us know what he'd like to do -- we can getthat scheduled if that's what he'd prefer. Thanks, Elena Watkins APRN.LIZET [facility]04-25-2024 Telephone encounter Note* Telephone Encounter - Annie Garcias OCCA - 11/10/2023 4:58 PM EDT TC to patients who verbalized understanding. She states she called [facility] but had to leave a message. She is going to try again tomorrow and if necessary, go to office. She will call back with an update once she has spoken to [facility]. GARCIA Felix [facility]04-25-2024 Miscellaneous Notes* Telephone Encounter - Annie Garcias OCCA - 11/10/2023 4:58 PM EDT TC to patients who verbalized understanding. She states she called [facility] but had to leave a message. She is going to try again tomorrow and if necessary, go to office. She will call back with an update once she has spoken to [facility]. GARCIA Felix * Telephone Encounter - Federico Vigil MD - 11/10/2023 4:51 PM EDT With that additional history I would agree with getting in touch with [facility] and let them know what happened and see what they recommend. He does not need the carotid test repeated here if hechecks with them. Federico Vigil MD * Telephone Encounter - Gretel Morelos RN - 11/10/2023 4:43 PM EDT Pts called in and reports Pt already sees [facility] and he has had an US and they know hehas moderate to sever occlusion in his carotid. She said they weren't going to do anything until the Pt had symptoms. She states they Pt lost vision for 10 min in his R eye, so she would say this is a symptom. She is asking if he would need to have another US, since they already know his carotid isblocked. She is also going to call [facility]. Please call and advise. documented in this encounterHolzer Health System04-25-2024 Telephone encounter Note * Telephone Encounter - Keila Renteria LPN - 11/10/2023 4:53 PM EDT Spouse, Courtney, calling in and left message on Nurse's Line that patient recently has had symptoms of vision loss. PCP is Ordering blood work and ultrasound. Spouse is asking from vascular standpoint, how do they proceed? Keila Renteria LPN November 10, 2023 4:55 PM [facility]04-[facility] Telephone encounter Note* Telephone Encounter - Federico Vigil MD - 11/10/2023 4:51 PM EDT With that additional history I would agree with getting in touch with [facility] and let them know what happened and see what they recommend. He does not need the carotid test repeated here if hechecks with them. Federico Vigil MD [facility]04-25-20[facility] Telephone encounter Note* Telephone Encounter - Gretel Morelos, KEANU - 11/10/2023 4:43 PM EDT Pts called in and reports Pt already sees [facility] and he has had an US and they know hehas moderate to sever occlusion in his carotid. She said they weren't going to do anything until the Pt had symptoms. She states they Pt lost vision for 10 min in his R eye, so she would say this is a symptom. She is asking if he would need to have another US, since they already know his carotid isblocked. She is also going to call [facility]. Please call and advise. [facility]04-25-2024 Telephone encounter Note* Telephone Encounter - Yasmeen Oliveros MA - 11/10/2023 3:02 PM EDT Call to pt and notified him of message below, pt driving at this time and not able to be transferred to scheduling. Will call back in to schedule an appt. Wanted to make you aware he will be having an MRI done on Tuesday as well. Yasmeen Oliveros MA [facility]04-25-2024 Miscellaneous Notes* Telephone Encounter - Yasmeen Oliveros MA - 11/10/2023 3:02 PM EDT Call to pt and notified him of message below, pt driving at this time and not able to be transferred to scheduling. Will call back in to schedule an appt. Wanted to make you aware he will be having an MRI done on Tuesday as well. Yasmeen Oliveros MA * Telephone Encounter - Federico Vigil MD - 11/10/2023 2:48 PM EDT Doppler ordered Federico Vigil MD * Telephone Encounter - Elif Godoy LPN - 11/10/2023 9:39 AM EDT Pt called in and will get lab work done. Pt also needs to have a carotid doppler done. Please call pt when this has been ordered. Elif Godoy LPN * Telephone Encounter - Elif Godoy LPN - 11/09/2023 2:52 PM EDT Elena with , [facility] called to get orders for pt to have the followin)carotid doppler 2)C-reactive protein lab 3)sed rate DX:G45.3 Amaurosis Fugax would like pt to have the above tests as soon as possible. Dr. Das wanted pt to go to ER but pt refused. Please give Elena a call when testing has been ordered. Will also need to advise pt. Dr. Das is aware Dr. Vigil is out of the office and will return tomorrow Elif Godoy LPN documented in this encounterHolzer [facility] System04-[facility]24 Telephone encounter Note * Telephone Encounter - Federico Vigil MD - 11/10/2023 2:48 PM EDT Doppler ordered Federico Vigil MD [facility]04-25-2024 Telephone encounter Note* Telephone Encounter - Elif Godoy LPN - 11/10/2023 9:39 AM EDT Pt called in and will get lab work done. Pt also needs to have a carotid doppler done. Please call pt when this has been ordered. Elif Godoy LPN [facility]04-24-2024 Telephone encounter Note* Telephone Encounter - Elif Godoy LPN - 11/09/2023 2:52 PM EDT Elena with , [facility] called to get orders for pt to have the followin)carotid doppler 2)C-reactive protein lab 3)sed rate DX:G45.3 Amaurosis Fugax would like pt to have the above tests as soon as possible. Dr. Das wanted pt to go to ER but pt refused. Please give Elena a call when testing has been ordered. Will also need to advise pt. Dr. Das is aware Dr. Vigil is out of the office and will return tomorrow Elif Godoy LPN [facility]04-12-2024 Miscellaneous Notes* Telephone Encounter - Guadalupe Sofia - 10/28/2023 4:15 PM EDT Scheduled with patient * Telephone Encounter - Cynthia Pedro - 10/28/2023 4:00 PM EDT Left message for patient to return call. When he calls, please schedule CBC/FERRITIN/IRON STUDIES in 3 months and same labs with OV in 6 mos. Cynthia Pedro * Telephone Encounter - Cynthia Pedro - 10/27/2023 4:43 PM EDT Follow-up disposition: Return in about 6 months (around 04/27/2024). Check out comments: CBC, ferritin, iron studies Q3 mons RTC in 6 mo with labs documented in this encounterHolzer Health System04-12-2024 Discharge summary Author Rich Dunham [facility] October 28, 2023 12:44pm Note Date/Time October 28, 2023 12: 36pm [facility] Physical Therapy [facility] [facility] [address] [place] [address] / REHABILITATION SERVICES DISCHARGE SUMMARY MR#: [id number] Acct: [id number] Name: SHELTON FOX Rep #: [id number] : 1945 78 From: Cert. FLASH MoiseT, OCS Referring DrAniceto: Dr. Hang Pool MD Status: REG [facility] Insurance: [facility] SELF PAY INSURANCE Patient Information Patient Information: SHELTON FOX was seen in my office for initial evaluation on 07/25/23. The following Plan of Care was established for this patient: POC Established Initial Frequency: 2x /Week Initial Duration: 4 Weeks Anticipated Interventions Patient/Client Instruction: Educate patient on: Condition and Plan of Care For the Purpose of:: To decrease pain, To increase ROM, To improve muscle performance and motor function, To improve ability to perform ADL's, To increasetolerance to activity/condition/position, To improve ability of physical actionsfor home/community/work/leisure, To improve health of tissue, To decrease soft tissue restriction, To increase flexibility/ROM and To prevent re-injury Therapeutic Exercise to Include: Strength training, Postural training, Flexibilty training and Active ROM For the Purpose of:: To decrease pain, To improve muscle performance and motor function, To improve ability to perform ADL's, To increase tolerance to activity/condition/position, To improve ability of physical actions for home/community/work/leisure, To improve health of tissue, To decrease soft tissue restriction and To reduce risk of recurrence Manual Therapy Techniques to Include: Mobilization and Soft tissue mobilization For the Purpose of:: To decrease pain, To increase ROM, To improve nutrient delivery to tissue, To increase oxygenation perfusion, To improve health of tissue, To decrease soft tissue restriction and To increase flexibility/ROM TENS: Yes IF ES: Yes Cryotherapy (ice pack, ice massage): Yes Thermo therapy (hot pack): Yes Ultrasound (thermal/non thermal): Yes For the Purpose of:: To decrease pain, To increase ROM, To improve nutrient delivery to tissue, To increase oxygenation perfusion, To improve health of tissue, To decrease soft tissue restriction and To increase flexibility/ROM Last Seen Last Seen: This patient was last seen in our office . Pertinent comments regarding their Physical therapy will appear below: Patient seen for PT for cervical pain with HEP and ICTX At this point I will be discontinuing this patient from physical therapy. I would be happy to see this patient again in the future if found appropriate by the physician. Thank you! Rich Dunham PT, Cert MDT, OCS Balance/Gait/Functional tests Balance/Special Test Scores Oswestry Neck Score: 18 <Electronically signed by Rich Dunham PT Cert. JOSE, OCS> 10/28/23 1244 CC: Dr. Hang Pool MD; Dr. Federico Vigil MD ~ AFUA Signed [facility] Work Phone: [phone]) 523-530804-11-2024 History of Present illness Narrative* David Lundberg - 10/27/2023 8:30 AM EDT Images from the original note were not included. Hematology Progress Note Shelton Fox 1945 Encounter date: 10/27/2023 Cancer Staging No matching staging information was found for the patient. 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 Presents today for evaulation of anemia. Recent H labs from 08/15/23 demonstrated Hgb 10.1. He was previously on PO ferrous sulfate daily for mild RATNA. This caused him fairly severe constipation, abd pain and impaction resulting in a hospital visit. He has had recent GI work up. Colonoscopy 05/20/23 without evidence of ulceration, bleeding, however noted difficult exam due to patient discomfort and tortuous colon. EGD 05/20/23:Squamous epithelium with glycogenic acanthosis. Ongoing anemia. More fatigue in the last month. Feels like he has now energy to do anything. Tries to works out regularly. Active golf, bowling. Track the Bet Tuesday - Tuesday but recently feels he is unable to perform activities he was able to do just a few months ago. Appetite decrease, no unintentional weight loss. Does not follow any particular dietary restrictions. One cup of coffee per day/ limits himself to two alcoholic drinks total per weekend. No illicit drug use. Diffuse itching since RSV vaccinaction in injection in June, primarily on arms and legs. Has tried several lotions, antihistamines, otc meds without any noticeable changes. Denies recent illnesses, infections, fever, chills, NS. PALMER for about the last month feels dizziness, lightheaded. No SOB, CP, palpitations. Denies changes in bowel or bladder habits. No N/V/C/D. No black, tarry stools or BRB. On plavix and eliquis. Bad gout in the last year. Started plaquenil about 6 months ago. Prednisone and lasix as needed. Multivitamin. No additional supplements or OTC meds. Does not take any NSAIDs. Tylenol as needed. Taking miralax and magnesium daily to prevent constipation. No known personal or family hx of blood disorders. Father, lung ca. Mother, kidney ca. [place] for 33 years, retired - no known chemical exposures. Interval Hx: Mr. Fox presents today for follow up and lab review. Reports that he feels much better since lastvisit. Denies new issues. Fatigue has improved. He is sleeping better. He has since stopped plaquinil and discontinued Plavix. His itching has resolved. Arthritis is manageable. Staying active. Back to exercising several days/week. Denies new aches or pains. SOB,PALMER. No CP, palpitations. Denies changes in bowel or bladder habits.No bleeding or bruising. Tolerated infusions well. Reviewed labs in detail today. Iron labs have improved and hgb has come up. No longer iron deficient at this time. Appetite is good. PAST MEDICAL HISTORY Diagnosis Date Allergic rhinitis, cause unspecified Arthritis Atherosclerotic heart disease of [place] coronary artery without angina pectoris Atrial fibrillation [...] atrial fibrillation as well as typical atrial flutterwith Dr. Walker on 12/20/2022. Subclavian arterial stenosis (HCC) Unspecified atrial fibrillation (HCC) PAST SURGICAL HISTORY Procedure Laterality Date ARTHROPLASTY TOTAL SHOULDER 06/2011 Dr. Benitez. ARTHRP ACETBLR/PROX FEM PROSTC AGRFT/ALGRFT 04/2012 Dr. Wood> [facility] ARTHRP KNE CONDYLE&PLATU MEDIAL&LAT COMPARTMENTS Right [...] HISTORY OF N/A 12/20/2022 EPS with Ablation, [facility] TONSILLECTOMY HX TONSILLECTOMY PRIMARY/SECONDARY <AGE 12 Tonsillectomy and adnoids Current Outpatient Medications Medication Sig Dispense Refill predniSONE (DELTASONE) 2.5 mg tablet Take 2.5 mg by mouth once daily. Lactobacillus acidophilus (ACIDOPHILUS ORAL) Take 1 capsule by mouth once daily. vitamin B complex (SUPER B COMPLEX ORAL) Take 1 tablet by mouth once daily. docusate sodium (DULCOLAX STOOL SOFTENER, DSS, ORAL) Take 1 tablet by mouth once daily. Magnesium Oxide 500 mg tab Take 1 tablet by mouth once daily. furosemide (LASIX) 40 mg tablet Take 40 mg by mouth as needed. allopurinol (ZYLOPRIM) 100 mg tablet take 1 tablet by mouth twice a day [address] (PROTONIX) 20 mg tablet Take 1 tablet by mouth daily before breakfast. Take on empty stomach, 1/2 hr before meal. 90 tablet 3 carvedilol (COREG) 6.25 mg tablet Take 1 tablet by mouth twice daily. hydrOXYchloroQUINE (PLAQUENIL) 200 mg tablet Take 200 mg by mouth twice daily. simvastatin (ZOCOR) 20 mg tablet Take 1 tablet by mouth once daily. 90 tablet 3 multivit with minerals/lutein (MULTIVITAMIN 50 PLUS ORAL) Take 1 tablet by mouth once daily. apixaban (ELIQUIS) 5 mg tab(s) Take 5 mg by mouth twice daily. Melatonin 5 mg cap Take 5 mg by mouth at bedtime as needed. sildenafil (VIAGRA) 100 mg tablet Take 1/2 to 1 tablet by mouth 1 hour prior to anticipated intercourse. 30 tablet 5 No current facility-administered medications for this visit. ALLERGIES Allergen Reactions Indocin [Indomethac* Diarrhea Mobic [Meloxicam] Diarrhea FAMILY HISTORY Problem Relation Age of Onset Cancer Mother KIDNEY Coronary Artery Disease Mother Lipids Mother Stroke Mother Heart disease Mother Cancer Father LUNG other (fibromyalgia) Sister Heart Sister Prostate Cancer Brother Social History Tobacco Use Smoking status: Former Packs/day: 1.00 Years: 10.00 Additional pack years: 0.00 Total pack years: 10.00 Types: Cigarettes Quit date: 07/18/1971 Years since quittin.3 Smokeless tobacco: Never Vaping Use Vaping Use: Never used Substance Use Topics Alcohol use: Not Currently Comment: occasional Drug use: No Review of Systems: All systems reviewed on 10/27/2023 with pertinent positives and negatives as outlined in the interval history. Physical Exam: BP 136/71 Pulse 77 Temp 98.6 Wt 169 lb (76.7kg) SpO2 98% General: Age-appropriate well developed. HEENT: Normocephalic, no sclera icterus, external ears normal Neck: Supple, no JVD. Chest: Clear bilaterally, no wheezes, not labored. Heart: RR, afib Abdomen: Soft, nontender, nondistended, Extremities: No cyanosis, clubbing, gross deformities Neurological: Cranial nerves II through XII are intact bilaterally, no focal deficits. Skin: Warm and dry with no ulcerations. Hematologic: no bruising or petechiae. Psychiatric: Alert and oriented x3. Emotional well-being assessment was performed. Pt denies depression, distress, and or problems with coping or adjustment. I have performed the physical exam today (10/27/2023) and have edited the note to correlate with current findings. Lab Results Component Value Date WBC 9.59 10/26/2023 HB 11.5 (L) 10/26/2023 MCV 88.9 10/26/2023 PLT 193 10/26/2023 Lab Results Component Value Date NA 141 08/22/2023 K 3.8 08/22/2023 CO2 26 08/22/2023 BUN 22 08/22/2023 CREAT 1.21 08/22/2023 TBILI 1.1 08/22/2023 TPROT 6.8 08/22/2023 TPROT 6.3 08/22/2023 ALB 4.2 08/22/2023 ALKPHOS 117 (H) 08/22/2023 ALT 14 08/22/2023 AST 17 08/22/2023 Ferritin Date Value Ref Range Status 10/26/2023 794.0 (H) 30.3 - 565.7 ng/mL Final 08/16/2023 93.4 30.3 - 565.7 ng/mL Final 04/06/2023 124.0 30.3 - 565.7 ng/mL Final 09/06/2008 235.8 18.0 - 300.0 ng/mL Final Iron Date Value Ref Range Status 10/26/2023 72 41 - 186 ug/dL Final 08/16/2023 53 41 - 186 ug/dL Final 04/06/2023 44 41 - 186 ug/dL Final 09/06/2008 130 30 - 140 ug/dL Final TIBC Date Value Ref Range Status 10/26/2023 284 232 - 386 ug/dL Final 08/16/2023 380 232 - 386 ug/dL Final 04/06/2023 327 232 - 386 ug/dL Final 09/06/2008 347 210 - 415 ug/dL Final Transferrin Saturation Date Value Ref Range Status 10/26/2023 25.4 15.0 - 57.0 % Final 08/16/2023 13.9 (L) 15.0 - 57.0 % Final 04/06/2023 13.5 (L) 15.0 - 57.0 % Final 09/06/2008 37 11 - 46 % Final PRIOR: ARMANDO&SPEP in scanned docs from 10/2015 WNL Colonscopy: 05/20/2023 4:46 PM - Radiology, O[place] In Impression IMPRESSION: 1. Difficult exam due to patient's level of discomfort 2. Multiple diverticula but no evidence of diverticulitis 3. Sigmoid colon is extremely tortuous XR of hands from 07/31/2023, injury : Assessment and Plan: Mr. Fox is a pleasant 78 year old gentleman presenting for further evaluation of anemia. Anemia - reviewed symptoms/potential causes of anemia in detail today, including but not limited to CKD, liver dysfunction, malabsorption issues, blood loss, bone marrow disorders, etc. Pt able to ask questions. Reviewed that he does not meet criteria for blood transfusion as hgb >7 - Appears anemia has been ongoing to some degree for several years, likely multifactorial to some degree. RATNA, kidney dysfunction, afib, on hydroxychloroquine for last 6 + months likely all contributing. - EGD and colonoscopy in 05/2023 without bleeding or ulceration, no overt s/s of bleeding - recent iron studies show mild RATNA, unsure if that alone would contribute to recent drop in hgb. Unable to tolerate PO iron. With CKD. Recommend IV iron sucrose 200mg x 5 and reevaluate cbc for improvement. - hgb 10.1 on 08/15/23, stable 10.4 08/22/2023 - SPEP, retic, cmp, folate, copper, hapto, ldh unremarkable - we discussed in detail that fatigue can be multifactorial - s/p IV iron sucrose 200mg x5, last dose on 09/19/2023 - reviewed labs today, cbc and iron studies with improvement, ferritin elevation likely due to recent dose. - no repeat iron at this time. Continue to monitor cbc. - CBC, iron studies in Q3 months RTC in 6 months with labs Pt acknowledged and agreeable with plan. David Lundberg APRN.GANG HEMSTITCHING MACHINE OPERATOR I spent a total of 30 minutes on the date of the service which included preparing to see the patient, [id number] patient care, completing clinical documentation, and counseling and educating the patient/family/caregiver. Portions of this note including HPI, ROS, impression/plan may have been copied forward as to provide important historical information essential in contributing to medical decision making. Documentation has been reviewed and edited as necessary to support clinical decision making for today's visit and to reflect my own independent evaluation of this patient. documented in this encounterHolzer [facility]04-[facility]24 Nurse Note* Gina Malave LPN - 10/27/2023 8:16 AM EDT Est. Pt, discuss recent lab results, 2 month F/u Gina Malave LPN documented in this encounterHolzer Health System03-04-2024 Miscellaneous Notes* Telephone Encounter - Cass Smalls LISW - 09/19/2023 3:44 PM EST Pt noted on [place] 1st time treatment report. Pt has a non-oncology regimen. No social work followup indicated. ROMEO Muro-S documented in this encounterHolzer Health System02-22-2024 History of Present illness Narrative* Amanda Weinberg RN - 09/08/2023 11:03 AM EST No reaction or hypersensitivity noted after transfusion. Pt verbalized I feel good. documented in this encounterHolzer Health System02-16-2024 History of Present illness Narrative* Arun Lopez RT(R) - 09/02/2023 8:50 AM EST Radiology Service Progress Note PATIENT NAME: Shelton Fox DATE OF SERVICE: September 02, 2023 TIME: 8:54 AM PATIENT IDENTITY VERIFICATION COMPLETED USING TWO (2) IDENTIFIERS: Name and Date of confirmedby patient verbally. FALL SCREENING: Has the patient had 2 falls in the last year or 1 fall with injury or currently using an Ambulatory Assistive Device (Walker, Cane, Wheelchair, Crutches, etc.)? No PATIENT GENDER DATA: Male PATIENT RELEVANT IMPLANT DATA REVIEWED: Not Applicable PATIENT PRESENTS WITH AN IMPLANTABLE OR ATTACHED TONE REGULATOR: No RADIOLOGY DEPARTMENT: General X-ray: Exam(s) Completed: Lower Extremity X- Ray(s): Knee, AP / LAT Left and Wt. Bearing with obliques PERIPHERAL IV DATA: Not applicable SIGNED BY: RT Eunice(R) September 02, 2023 8:54 AM documented in this encounterHolzer Health System02-16-2024 History of Present illness Narrative* Sumaya Alcazar APRN.CNP - 09/02/2023 8:48 AM EST Images from the original note were not included. Subjective HPI HPI Shelton Fox is a 78 year old male who presents today for CC of left knee pain after stumbling last week. Has tried otc medication, ice for relief. Symptoms are worsened by rom/walking. Risk factors hx of gout. .Patient presents with: Knee Pain: left knee pain x 4 days PAST MEDICAL HISTORY Diagnosis Date Allergic rhinitis, cause unspecified Arthritis Atherosclerotic heart disease of [place] coronary artery without angina pectoris Atrial fibrillation [...] atrial fibrillation as well as typical atrial flutterwith Dr. Walker on 12/20/2022. Subclavian arterial stenosis (HCC) Unspecified atrial fibrillation (HCC) PAST SURGICAL HISTORY Procedure Laterality Date ARTHROPLASTY TOTAL SHOULDER 06/2011 Dr. Benitez. ARTHRP ACETBLR/PROX FEM PROSTC AGRFT/ALGRFT 04/2012 Dr. Wood> [facility]. ARTHRP KNE CONDYLE&PLATU MEDIAL&LAT COMPARTMENTS Right COLONOSCOPY [...] HISTORY OF N/A 12/20/2022 EPS with Ablation, [facility] TONSILLECTOMY HX TONSILLECTOMY PRIMARY/SECONDARY <AGE 12 Tonsillectomy and adnoids ALLERGIES Indocin [Indomethacin Sodium] and Mobic [Meloxicam] MEDICATIONS Lactobacillus acidophilus (ACIDOPHILUS ORAL) Take 1 capsule by mouth once daily. vitamin B complex (SUPER B COMPLEX ORAL) Take 1 tablet by mouth once daily. docusate sodium (DULCOLAX STOOL SOFTENER, DSS, ORAL) Take 1 tablet by mouth once daily. Magnesium Oxide 500 mg tab Take 1 tablet by mouth once daily. furosemide (LASIX) 40 mg tablet Take 40 mg by mouth as needed. allopurinol (ZYLOPRIM) 100 mg tablet take 1 tablet by mouth twice a day pantoprazole DR (PROTONIX) 20 mg tablet Take 1 tablet by mouth daily before breakfast. Take on empty stomach, 1/2 hr before meal. carvedilol (COREG) 6.25 mg tablet Take 1 tablet by mouth twice daily. hydrOXYchloroQUINE (PLAQUENIL) 200 mg tablet Take [...] mg cap Take 5 mg by mouth at bedtime as needed. sildenafil (VIAGRA) 100 mg tablet Take 1/2 to 1 tablet by mouth 1 hour prior to anticipated intercourse. lisinopril (ZESTRIL) 5 mg tablet Take 1 tablet by mouth once daily. (Patient not taking: Reported on 09/01/2023) predniSONE (DELTASONE) 10 mg tablet Take 1 tablet by mouth as needed. (Patient not taking: Reportedon 09/02/2023) FAMILY HISTORY Problem Relation Age of Onset Cancer Mother KIDNEY Coronary Artery Disease Mother Lipids Mother Stroke Mother Heart disease Mother Cancer Father LUNG other (fibromyalgia) Sister Heart Sister Prostate Cancer Brother Social History Tobacco Use Smoking status: Former Packs/day: 1.00 Years: 10.00 Additional pack years: 0.00 Total pack years: 10.00 Types: Cigarettes Quit date: 07/18/1971 Years since quittin.1 Smokeless tobacco: Never Vaping Use Vaping Use: Never used Substance Use Topics Alcohol use: Not Currently Comment: occasional Drug use: No ROS Objective Blood pressure 100/68, pulse 72, temperature 36 C (96.8 F), resp. rate 21, weight 79.6 kg (175 lb 6.4 oz), SpO2 99%. Physical Exam Constitutional: General: He is not in acute distress. Appearance: He is not toxic-appearing or diaphoretic. HENT: Head: Normocephalic and atraumatic. Pulmonary: Effort: Pulmonary effort is normal. No accessory muscle usage or respiratory distress. Musculoskeletal: Left knee: Swelling present. No deformity, effusion, erythema, ecchymosis, lacerations, bony tenderness or crepitus. Decreased range of motion (d/t pain). Tenderness present. No LCL laxity or MCL laxity.Normal alignment. Legs: Neurological: Mental Status: He is alert and oriented to person, place, and time. ASSESSMENT/PLAN: 1. Acute pain of left knee - ICD9: 719.46, ICD10: M25.562 -no bony abnormality noted on xray -given stretches/exercises -follow up with primary care if symptoms persist/worsen in 10-14 days - with orthopedics - XR KNEE INJURY 4V AP/LAT/OBLS LEFT IMPRESSION: No acute bony finding. Minimal degenerative findings Dictated by : FEDERICO BRYANT MD - PREDNISONE 10 MG TABLET Sumaya Alcazar APRN.GANG HEMSTITCHING MACHINE OPERATOR documented in this encounterHolzer Health System02-15-2024 History of Present illness Narrative* David Lundberg - 09/01/2023 9:30 AM EST Images from the original note were not included. Hematology Consult Note Shelton Fox 1945 Encounter date: 09/02/2023 Cancer Staging No matching staging information was found for the patient. 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 Presents today for evaulation of anemia. Recent [facility] labs from 08/15/23 demonstrated Hgb 10.1. He was previously on PO ferrous sulfate daily for mild RATNA. This caused him fairly severe constipation, abd pain and impaction resulting in a hospital visit. He has had recent GI work up. Colonoscopy 05/20/23 without evidence of ulceration, bleeding, however noted difficult exam due to patient discomfort and tortuous colon. EGD 05/20/23:Squamous epithelium with glycogenic acanthosis. Ongoing anemia. More fatigue in the last month. Feels like he has now energy to do anything. Tries to works out regularly. Active golf, bowling. Track the Bet Tuesday - Tuesday but recently feels he is unable to perform activities he was able to do just a few months ago. Appetite decrease, no unintentional weight loss. Does not follow any particular dietary restrictions. One cup of coffee per day/ limits himself to two alcoholic drinks total per weekend. No illicit drug use. Diffuse itching since RSV vaccinaction in injection in [place], primarily on arms and legs. Has tried several lotions, antihistamines, otc meds without any noticeable changes. Denies recent illnesses, infections, fever, chills, NS. PALMER for about the last month feels dizziness, lightheaded. No SOB, CP, palpitations. Denies changes in bowel or bladder habits. No N/V/C/D. No black, tarry stools or BRB. On plavix and eliquis. Bad gout in the last year. Started plaquenil about 6 months ago. Prednisone and lasix as needed. Multivitamin. No additional supplements or OTC meds. Does not take any NSAIDs. Tylenol as needed. Taking miralax and magnesium daily to prevent constipation. No known personal or family hx of blood disorders. Father, lung ca. Mother, kidney ca. [place] for 33 years, retired - no known chemical exposures. Interval Hx: Mr. Fox presents today with his spouse for follow up and lab review. Reports that he feels about this same since last visit. Denies new issues. Fatigue is stable. Denies worsening SOB,PALMER. No CP, palpitations. Denies changes in bowel or bladder habits. Itching to arms and legs is generally stablefrom our visit. He has appt with derm scheduled. Reviewed labs in detail today with patient and spouse. At this time RATNA with mild chronic kidney dysfunction only finding from lab results. Pt unable to tolerate PO iron due to severe constipation and impaction resulting in hospital stay with previous PO iron trial. Would recommend IV iron. PAST MEDICAL HISTORY Diagnosis Date Allergic rhinitis, cause unspecified Arthritis Atherosclerotic heart disease of [place] coronary artery without angina pectoris Atrial fibrillation [...] atrial fibrillation as well as typical atrial flutterwith Dr. Walker on 12/20/2022. Subclavian arterial stenosis (HCC) Unspecified atrial fibrillation (HCC) PAST SURGICAL HISTORY Procedure Laterality Date ARTHROPLASTY TOTAL SHOULDER 06/2011 Dr. Benitez. ARTHRP ACETBLR/PROX FEM PROSTC AGRFT/ALGRFT 04/2012 Dr. Wood> [facility]. ARTHRP KNE CONDYLE&PLATU MEDIAL&LAT COMPARTMENTS Right [...] HISTORY OF N/A 12/20/2022 EPS with Ablation, [facility] TONSILLECTOMY HX TONSILLECTOMY PRIMARY/SECONDARY <AGE 12 Tonsillectomy and adnoids Current Outpatient Medications Medication Sig Dispense Refill Lactobacillus acidophilus (ACIDOPHILUS ORAL) Take 1 capsule by mouth once daily. vitamin B complex (SUPER B COMPLEX ORAL) Take 1 tablet by mouth once daily. docusate sodium (DULCOLAX STOOL SOFTENER, DSS, ORAL) Take 1 tablet by mouth once daily. Magnesium Oxide 500 mg tab Take 1 tablet by mouth once daily. furosemide (LASIX) 40 mg tablet Take 40 mg by mouth as needed. allopurinol (ZYLOPRIM) 100 mg tablet take 1 tablet by mouth twice a day [address] (PROTONIX) 20 mg tablet Take 1 tablet by mouth daily before breakfast. Take on empty stomach, 1/2 hr before meal. 90 tablet 3 carvedilol (COREG) 6.25 mg tablet Take 1 tablet by mouth twice daily. predniSONE (DELTASONE) 10 mg tablet Take 1 tablet by mouth as needed. (Patient not taking: Reportedon 09/02/2023) hydrOXYchloroQUINE (PLAQUENIL) 200 mg tablet Take 200 mg by mouth twice daily. simvastatin (ZOCOR) 20 mg tablet Take 1 tablet by mouth once daily. 90 tablet 3 multivit with minerals/lutein (MULTIVITAMIN 50 PLUS ORAL) Take 1 tablet by mouth once daily. apixaban (ELIQUIS) 5 mg tab(s) Take 5 mg by mouth twice daily. clopidogrel (PLAVIX) 75 mg tablet Take 75 mg by mouth once daily. Melatonin 5 mg cap Take 5 mg by mouth at bedtime as needed. sildenafil (VIAGRA) 100 mg tablet Take 1/2 to 1 tablet by mouth 1 hour prior to anticipated intercourse. 30 tablet 5 predniSONE (DELTASONE) 10 mg tablet Take 4 tabs daily for 3 days, then 2 tabs daily for 3 days, then 1 tab daily for 3 days with food. 21 tablet 0 lisinopril (ZESTRIL) 5 mg tablet Take 1 tablet by mouth once daily. (Patient not taking: Reported on 09/01/2023) No current facility-administered medications for this visit. ALLERGIES Allergen Reactions Indocin [Indomethac* Diarrhea Mobic [Meloxicam] Diarrhea FAMILY HISTORY Problem Relation Age of Onset Cancer Mother KIDNEY Coronary Artery Disease Mother Lipids Mother Stroke Mother Heart disease Mother Cancer Father LUNG other (fibromyalgia) Sister Heart Sister Prostate Cancer Brother Social History Tobacco Use Smoking status: Former Packs/day: 1.00 Years: 10.00 Additional pack years: 0.00 Total pack years: 10.00 Types: Cigarettes Quit date: 07/18/1971 Years since quittin.1 Smokeless tobacco: Never Vaping Use Vaping Use: Never used Substance Use Topics Alcohol use: Not Currently Comment: occasional Drug use: No Review of Systems: Negative except as noted in HPI reviewed 09/01/2023 Physical Exam: BP 118/69 Pulse 61 Temp (Src) 97.9 (Temporal) Wt 173 lb 8 oz (78.7kg) SpO2 99% ECOG PS: 0 Pain Intensity: 0/10 General: Age-appropriate well developed. Appears pale. HEENT: Normocephalic, no sclera icterus, external ears normal Neck: Supple, no thyroid nodules, no JVD. Chest: Clear bilaterally, no wheezes, not labored. Heart: RR, afib Abdomen: Soft, nontender, nondistended, bowel sounds present, no organomegaly or mass, no rigidity. Extremities: No cyanosis, clubbing, gross deformities, or palpable cords. Neurological: Cranial nerves II through XII are intact bilaterally, strength normal in the upper and lower extremities, no focal deficits. Skin: Warm and dry with no ulcerations. Redness and irritation to bilateral shins. Stable Nodes: No palpable adenopathy in the cervical, supraclavicular, infraclavicular, or axillary regions. Hematologic: no bruising or petechiae. Psychiatric: Alert and oriented x3. Emotional well-being assessment was performed. Pt denies depression, distress, and or problems with coping or adjustment. I have performed the physical exam today (09/01/2023) and have edited the note to correlate with current findings. Lab Results Component Value Date WBC 7.87 08/22/2023 HB 10.4 (L) 08/22/2023 MCV 87.4 08/22/2023 PLT 159 08/22/2023 Lab Results Component Value Date NA 141 08/22/2023 K 3.8 08/22/2023 CO2 26 08/22/2023 BUN 22 08/22/2023 CREAT 1.21 08/22/2023 TBILI 1.1 08/22/2023 TPROT 6.8 08/22/2023 TPROT 6.3 08/22/2023 ALB 4.2 08/22/2023 ALKPHOS 117 (H) 08/22/2023 ALT 14 08/22/2023 AST 17 08/22/2023 Ferritin Date Value Ref Range Status 08/16/2023 93.4 30.3 - 565.7 ng/mL Final 04/06/2023 124.0 30.3 - 565.7 ng/mL Final 09/06/2008 235.8 18.0 - 300.0 ng/mL Final Iron Date Value Ref Range Status 08/16/2023 53 41 - 186 ug/dL Final 04/06/2023 44 41 - 186 ug/dL Final 09/06/2008 130 30 - 140 ug/dL Final TIBC Date Value Ref Range Status 08/16/2023 380 232 - 386 ug/dL Final 04/06/2023 327 232 - 386 ug/dL Final 09/06/2008 347 210 - 415 ug/dL Final Transferrin Saturation Date Value Ref Range Status 08/16/2023 13.9 (L) 15.0 - 57.0 % Final 04/06/2023 13.5 (L) 15.0 - 57.0 % Final 09/06/2008 37 11 - 46 % Final PRIOR: ARMANDO&SPEP in scanned docs from 10/2015 WNL Colonscopy: 05/20/2023 4:46 PM - Radiology, Oru In Impression IMPRESSION: 1. Difficult exam due to patient's level of discomfort 2. Multiple diverticula but no evidence of diverticulitis 3. Sigmoid colon is extremely tortuous XR of hands from 07/31/2023, injury : Assessment and Plan: Mr. Fox is a pleasant 78 year old gentleman presenting for further evaluation of anemia. Anemia - reviewed symptoms/potential causes of anemia in detail today, including but not limited to CKD, liver dysfunction, malabsorption issues, blood loss, bone marrow disorders, etc. Ptable to ask questions. Reviewed that he does not meet criteria for blood transfusion as hgb >7 - Appears anemia has been ongoing to some degree for several years, likely multifactorial to some degree. RATNA, kidney dysfunction, afib, on hydroxychloroquine for last 6 + months likely all contributing. - EGD and colonoscopy in 05/2023 without bleeding or ulceration, no overt s/s of bleeding - recent iron studies show mild RATNA, unsure if that alone would contribute to recent drop in hgb. Unable to tolerate PO iron. With CKD. Recommend IV iron sucrose 200mg x 5 and reevaluate cbc for improvement. - hgb 10.1 on 08/15/23, stable 10.4 08/22/2023 - SPEP, retic, cmp, folate, copper, hapto, ldh unremarkable - we discussed in detail that fatigue can be multifactorial - Plan for IV iron as patient is unable to tolerate PO, RTC with repeat CBC, iron studies in 8 weeks. David Lundberg APRN.GANG HEMSTITCHING MACHINE OPERATOR I spent >35 minutes in the visit, with more than 50% of the total [id number] time of the visitin counseling / coordination of care. Portions of this note including HPI, ROS, impression/plan may have been copied forward as to provide important historical information essential in contributing to medical decision making. Documentation has been reviewed and edited as necessary to support clinical decision making for today's visit and to reflect my own independent evaluation of this patient. documented in this encounterHolzer Health System02-05-2024 History of Present illness Narrative* David Lundberg - 08/22/2023 10:30 AM EST Images from the original note were not included. Hematology Consult Note Sehlton Fox 1945 Encounter date: 08/22/2023 Cancer Staging No matching staging information was found for the patient. 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 Presents today for evaulation of anemia. Recent [facility] labs from 08/15/23 demonstrated Hgb 10.1. He was previously on PO ferrous sulfate daily for mild RATNA. This caused him fairly severe constipation, abd pain and impaction resulting in a hospital visit. He has had recent GI work up. Colonoscopy 05/20/23 without evidence of ulceration, bleeding, however noted difficult exam due to patient discomfort and tortuous colon. EGD 05/20/23:Squamous epithelium with glycogenic acanthosis. Ongoing anemia. More fatigue in the last month. Feels like he has now energy to do anything. Tries to works out regularly. Active golf, bowling. Track the [employer] Tuesday - Tuesday but recently feels he is unable to perform activities he was able to do just a few months ago. Appetite decrease, no unintentional weight loss. Does not follow any particular dietary restrictions. One cup of coffee per day/ limits himself to two alcoholic drinks total per weekend. No illicit drug use. Diffuse itching since RSV vaccinaction in injection in June, primarily on arms and legs. Has tried several lotions, antihistamines, otc meds without any noticeable changes. Denies recent illnesses, infections, fever, chills, NS. PALMER for about the last month feels dizziness, lightheaded. No SOB, CP, palpitations. Denies changes in bowel or bladder habits. No N/V/C/D. No black, tarry stools or BRB. On plavix and eliquis. Bad gout in the last year. Started plaquenil about 6 months ago. Prednisone and lasix as needed. Multivitamin. No additional supplements or OTC meds. Does not take any NSAIDs. Tylenol as needed. Taking miralax and magnesium daily to prevent constipation. No known personal or family hx of blood disorders. Father, lung ca. Mother, kidney ca. [place] for 33 years, retired - no known chemical exposures. PAST MEDICAL HISTORY Diagnosis Date Allergic rhinitis, cause unspecified Arthritis Atherosclerotic heart disease of [place] coronary artery without angina pectoris Atrial fibrillation [...] atrial fibrillation as well as typical atrial flutterwith Dr. Walker on 12/20/2022. Subclavian arterial stenosis (HCC) Unspecified atrial fibrillation (HCC) PAST SURGICAL HISTORY Procedure Laterality Date ARTHROPLASTY TOTAL SHOULDER 06/2011 Dr. Benitez. ARTHRP ACETBLR/PROX FEM PROSTC AGRFT/ALGRFT 04/2012 Dr. Wood> [facility]. ARTHRP KNE CONDYLE&PLATU MEDIAL&LAT COMPARTMENTS Right [...] HISTORY OF N/A 12/20/2022 EPS with Ablation, [facility] TONSILLECTOMY HX TONSILLECTOMY PRIMARY/SECONDARY <AGE 12 Tonsillectomy and adnoids Current Outpatient Medications Medication Sig Dispense Refill Lactobacillus acidophilus (ACIDOPHILUS ORAL) Take 1 capsule by mouth once daily. vitamin B complex (SUPER B COMPLEX ORAL) Take 1 tablet by mouth once daily. docusate sodium (DULCOLAX STOOL SOFTENER, DSS, ORAL) Take 1 tablet by mouth once daily. Magnesium Oxide 500 mg tab Take 1 tablet by mouth once daily. furosemide (LASIX) 40 mg tablet Take 40 mg by mouth as needed. pantoprazole DR (PROTONIX) 20 mg tablet Take 1 tablet by mouth daily before breakfast. Take on empty stomach, 1/2 hr before meal. 90 tablet 3 carvedilol (COREG) 6.25 mg tablet Take 1 tablet by mouth twice daily. predniSONE (DELTASONE) 10 mg tablet Take 1 tablet by mouth as needed. hydrOXYchloroQUINE (PLAQUENIL) 200 mg tablet Take 200 mg by mouth twice daily. simvastatin (ZOCOR) 20 mg tablet Take 1 tablet by mouth once daily. 90 tablet 3 multivit with minerals/lutein (MULTIVITAMIN 50 PLUS ORAL) Take 1 tablet by mouth once daily. apixaban (ELIQUIS) 5 mg tab(s) Take 5 mg by mouth twice daily. clopidogrel (PLAVIX) 75 mg tablet Take 75 mg by mouth once daily. Melatonin 5 mg cap Take 5 mg by mouth at bedtime as needed. sildenafil (VIAGRA) 100 mg tablet Take 1/2 to 1 tablet by mouth 1 hour prior to anticipated intercourse. 30 tablet 5 lisinopril (ZESTRIL) 5 mg tablet Take 1 tablet by mouth once daily. allopurinol (ZYLOPRIM) 100 mg tablet take 1 tablet by mouth twice a day 180 tablet 3 No current facility-administered medications for this visit. ALLERGIES Allergen Reactions Indocin [Indomethac* Diarrhea Mobic [Meloxicam] Diarrhea FAMILY HISTORY Problem Relation Age of Onset Cancer Mother KIDNEY Coronary Artery Disease Mother Lipids Mother Stroke Mother Heart disease Mother Cancer Father LUNG other (fibromyalgia) Sister Heart Sister Prostate Cancer Brother Social History Tobacco Use Smoking status: Former Packs/day: 1.00 Years: 10.00 Additional pack years: 0.00 Total pack years: 10.00 Types: Cigarettes Quit date: 07/18/1971 Years since quittin.1 Smokeless tobacco: Never Vaping Use Vaping Use: Never used Substance Use Topics Alcohol use: Not Currently Comment: occasional Drug use: No Review of Systems: Negative except as noted in HPI reviewed 08/22/2023 Physical Exam: BP 111/62 Pulse 62 Temp (Src) 97.1 (Temporal) Ht 5' 9.75 (1.77m) Wt 171 lb (77.6kg) [id number]% BMI 24.70 kg/(m^2). ECOG PS: 0 Pain Intensity: 0/10 General: Age-appropriate well developed. Appears pale. HEENT: Normocephalic, no sclera icterus, external ears normal Neck: Supple, no thyroid nodules, no JVD. Chest: Clear bilaterally, no wheezes, not labored. Heart: Normal S1 and S2, no abnormal sounds Abdomen: Soft, nontender, nondistended, bowel sounds present, no organomegaly or mass, no rigidity. Extremities: No cyanosis, clubbing, gross deformities, or palpable cords. Neurological: Cranial nerves II through XII are intact bilaterally, strength normal in the upper and lower extremities, no focal deficits. Skin: Warm and dry with no ulcerations. Redness and irritation to bilateral shins Nodes: No palpable adenopathy in the cervical, supraclavicular, infraclavicular, or axillary regions. Hematologic: no bruising or petechiae. Psychiatric: Alert and oriented x3. Emotional well-being assessment was performed. Pt denies depression, distress, and or problems with coping or adjustment. Lab Results Component Value Date WBC 7.13 07/21/2023 HB 11.7 (L) 07/21/2023 MCV 87.9 07/21/2023 PLT 220 07/21/2023 Lab Results Component Value Date NA 143 07/21/2023 K 3.5 (L) 07/21/2023 CO2 28 07/21/2023 BUN 16 07/21/2023 CREAT 1.16 07/21/2023 TBILI 0.7 07/21/2023 TPROT 6.9 07/21/2023 ALB 4.1 07/21/2023 ALKPHOS 93 07/21/2023 ALT 18 07/21/2023 AST 20 07/21/2023 Ferritin Date Value Ref Range Status 08/16/2023 93.4 30.3 - 565.7 ng/mL Final 04/06/2023 124.0 30.3 - 565.7 ng/mL Final 09/06/2008 235.8 18.0 - 300.0 ng/mL Final Iron Date Value Ref Range Status 08/16/2023 53 41 - 186 ug/dL Final 04/06/2023 44 41 - 186 ug/dL Final 09/06/2008 130 30 - 140 ug/dL Final TIBC Date Value Ref Range Status 08/16/2023 380 232 - 386 ug/dL Final 04/06/2023 327 232 - 386 ug/dL Final 09/06/2008 347 210 - 415 ug/dL Final Transferrin Saturation Date Value Ref Range Status 08/16/2023 13.9 (L) 15.0 - 57.0 % Final 04/06/2023 13.5 (L) 15.0 - 57.0 % Final 09/06/2008 37 11 - 46 % Final PRIOR: ARMANDO&SPEP in scanned docs from 10/2015 WNL Colonscopy: 05/20/2023 4:46 PM - Radiology, O[facility] In Impression IMPRESSION: 1. Difficult exam due to patient's level of discomfort 2. Multiple diverticula but no evidence of diverticulitis 3. Sigmoid colon is extremely tortuous XR of hands from 07/31/2023, injury : Assessment and Plan: Mr. Fox is a pleasant 77 year old gentleman presenting for further evaluation of anemia. Anemia - reviewed symptoms/potential causes of anemia in detail today, including but not limited to CKD, liver dysfunction, malabsorption issues, blood loss, bone marrow disorders, etc. Pt and sister-in lawable to ask questions. Reviewed that he does not meet criteria for blood transfusion as hgb >7 - Appears anemia has been ongoing to some degree for several years. - EGD and colonoscopy in 05/2023 without bleeding or ulceration, no overt s/s of bleeding - recent iron studies show mild RATNA, unsure if that alone would contribute to recent drop in hgb. Unable to tolerate PO iron. - hgb 10.1 on 08/15/23 - plan to recheck CBC today for stability - SPEP, retic, cmp, folate, copper, hapto, ldh today - plan pending today's labs - RTC in 2 weeks to review labs David Lundberg APRN.[employer] HEMSTITCHING MACHINE OPERATOR I spent >60 minutes in the visit, with more than 50% of the total wqrc-nu-ppab time of the visitin counseling / coordination of care. Portions of this note including HPI, ROS, impression/plan may have been copied forward as to provide important historical information essential in contributing to medical decision making. Documentation has been reviewed and edited as necessary to support clinical decision making for today's visit and to reflect my own independent evaluation of this patient. documented in this encounterHolzer [facility] System02-01-2024 Miscellaneous Notes* Telephone Encounter - Barbara Sears - 08/18/2023 4:23 PM EST Please note consult to hematology * Telephone Encounter - Janneth Burkett Ma - 08/18/2023 4:21 PM EST Pt Ry notified and voiced understanding. Transferred to [facility] to set up Hematology appt. Janneth Burkett Ma * Telephone Encounter - Federico Vigil MD - 08/18/2023 4:04 PM EST His iron level is actually in the normal range; I would suggest a Hematology consult to evaluate his anemia and see if they think an iron infusion would be beneficial. or if other testing may be warranted. Federico Vigil MD * Telephone Encounter - Josselin Hung LPN - 08/18/2023 11:04 AM EST Ry calling for lab results & to ask how to proceed from here? She reports pt still feels the same as when seen 08/16/23. She wonders that if pt needs to have ironif an iron infusion would be an option & if that would help to prevent the bowel probles from happening that pt had in the past? Or what is recommended? Please advise. Josselin Hung LPN documented in this encounterHolzer Health System12-06-2023 Instructions* Patient Instructions* Timothy Walker MD - 06/22/2023 3:21 PM EST [...] pathways to the upper left atrium and tothe lower chambers of the heart (the ventricles). [...] heart has 4 valves that open and closewith each heartbeat to help blood flow in [...] may help keep you from having so manyspells. If a health problem like a leaky [...] called a catheter to deliver energy to theinside of the heart. The energy (usually radio [...] healthcare provider's instructions for treatment. Developed by [employer]. Published by [employer]. Copyright 2014 [employer] and/or one of its subsidiaries. All rights reserved. documented in this encounterHolzer Health System12-06-2023 NoteHNO ID: [id number] Author: Timothy Walker MD Service: ? Author Type: Physician Type: Progress Notes Filed: 06/22/2023 4:17 PM Note Text: PRIMARY CARE PHYSICIAN: Federico Vigil [address] [place] [address] Patient Care Team: Federico Vigil MD as PCP - General (Family Medicine) CHIEF COMPLAINT: Paroxysmal Atrial fibrillation HISTORY OF PRESENT ILLNESS: Mr. Fox is a 77 year old male who presents today for a cardiovascular medicine follow-up visit. History copied from previous notes, edited as needed: Mr. Fox is a 77 year old male with [...] per week at the wellness center in [place], under the supervision of an senior web applications developer. He checks his heart rhythm daily on [...] cause unspecified Arthritis Atherosclerotic heart disease of [place] coronary artery without angina pectoris Atrial fibrillation [...] Laterality Date ARTHROPLASTY T (more content not included)...[facility] 06-22-2023 History of Present illness Narrative* Timothy Walker MD - 06/22/2023 2:56 PM EST PRIMARY CARE PHYSICIAN: Federico Vigil [address] [place] [address] Patient Care Team: Federico Vigil MD as PCP - General (Family Medicine) CHIEF COMPLAINT: Paroxysmal Atrial fibrillation HISTORY OF PRESENT ILLNESS: Mr. Fox is a 77 year old male who presents today for a cardiovascular medicine follow-up visit. History copied from previous notes, edited as needed: Mr. Fox is a 77 year old male with [...] a sleep study because of his history ofsnoring. Patient was referred to electrophysiology for management of atrial fibrillation. Patient wants to opt for ablation procedure. subsequently he underwent radiofrequency catheter ablation for both atrial fibrillation and typicalatrial flutter with Dr. Walker 12/20/2022. He was discharged the next day on amiodarone due to frequent ectopy. Interval History: The patient reports following ablation, the first 5 days were little rough, but since then has been well. The beginning of March, he ran out of the amiodarone, the medication was stopped per Dr. Walker. He underwent 3- month post ablation testing prior to today's appointment which includes an echocardiogram, CT of the chest and 30-day event monitor was applied. He has been exercising 3 days per week at the wellness center in [place], under the supervision of an senior web applications developer. He checks his heart rhythm daily on the [employer] mobile, reports 2 episodes of atrial fibrillation [...] episodes are not AF but SR with ectopy,others could be AF but rates are similar [...] cause unspecified Arthritis Atherosclerotic heart disease of [place] coronary artery without angina pectoris Atrial fibrillation [...] atrial fibrillation as well as typical atrial flutterwith Dr. Walker on 12/20/2022. Subclavian arterial stenosis (HCC) Unspecified atrial fibrillation (HCC) PAST SURGICAL HISTORY Procedure Laterality Date ARTHROPLASTY TOTAL SHOULDER 06/2011 Dr. Benitez. ARTHRP ACETBLR/PROX FEM PROSTC AGRFT/ALGRFT 04/2012 Dr. Wood> [facility]. ARTHRP KNE CONDYLE&PLATU MEDIAL&LAT COMPARTMENTS Right COLONOSCOPY [...] HISTORY OF N/A 12/20/2022 EPS with Ablation, [facility] TONSILLECTOMY HX TONSILLECTOMY PRIMARY/SECONDARY <AGE 12 [...] with more than 50% of the total qias-pa-zton time of the visit in counseling / coordination of care. ASSESSMENT/PLAN: 1. Paroxysmal atrial fibrillation (HCC) - ICD9: 427.31, ICD10: I48.0 (primary diagnosis) - ECG B/O W INTERP (MED OFFICE) 2. Cardiomyopathy, unspecified type (HCC) - ICD9: 425.4, ICD10: I42.9 3. Coronary artery disease involving [place] coronary artery of [place] heart with angina pectoris (HCC) - ICD9: 414.01, 413.9, ICD10: I25.119 4. Mixed hyperlipidemia - ICD9: 272.2, ICD10: E78.2 5. BENIGN HYPERTENSION - ICD9: 401.1, ICD10: I10 6. Status post ablation of atrial flutter - ICD9: V45.89, ICD10: Z98.890, Z86.79 IMPRESSION: Mr. Fox is a 77 year old male with PMH significant for hypertension, hyperlipidemia, GERD, CAD status post PCI to OM, PAD, chronic systolic heart failure (EF 40%), paroxysmal atrial fibrillation who presents today for follow up. Patient was formally diagnosed in July 2022 with symptomatic atrial fibrillation and underwent PVI, PW isolation and CTI ablation in 12/2022. He was previously placedon amiodarone for frequent ectopy post ablation and [...] Up titration is limited by his blood pressure.If continues to have frequent ectopy, I would like him to be switched to metoprolol XL, which will not limit up titration as much as carvedilol. This can be assessed either during my follow-up visit or repeat visit with his PCP. -Continue Eliquis for [id number] score of 5, CHF/age/hypertension/vascular disease. No bleeding complications on Eliquis. -Continue lifestyle modifications including maintaining a healthy weight, regular exercise and limiting use of alcohol and/or caffeine. Return in about 6 months (around 12/22/2023) for Afib follow up. Timothy Walker MD documented in this encounterHolzer Health System12-06-2023 Nurse Note* Keiko Santos LPN - 06/22/2023 2:47 PM EST Patient denies any cardiac complaints or symptoms. Keiko Santos LPN documented in this encounterHolzer Health System11-27-2023 History of Present illness Narrative* Cabrera Mejia MD - 06/13/2023 1:11 PM EST Subjective: Patient is status post an EGD completed at [facility] on 05/20/2023. This was done secondaryto dysphagia. Biopsy was results of the duodenum were normal the stomach was normal as well distal esophageal and mid esophageal showed squamous epithelium with glycogenic acanthosis. Objective: Blood pressure 112/58, pulse 68, temperature (!) 35.8 C (96.5 F), height 179.1 cm (5' 10.5), weight 78.5 kg (173 lb), SpO2 100 %. Abdomen is soft and nontender Assessment:Other dysphagia (primary encounter diagnosis) Pain with swallowing Plan: Told the patient that probably the neck step. But have to be some esophageal manometry possibly pH probe. She would like to see one of the information systems administrator in time and we will hopefully get this set up for her documented in this encounterHolzer Health System11-20-2023 Miscellaneous Notes* Telephone Encounter - Flaca Lewis LPN - 06/06/2023 3:51 PM EST Faxed colonoscopy and EGD report and pathology to Dr Jay's office per patient request Flaca Lewis LPN * Telephone Encounter - Gretel Bansal RN - 06/06/2023 3:30 PM EST Patients calling in, she states that they were told to follow up with One of 2 physicians, oneis not accepting new patients. The other, Dr. Jay, is requesting that patient's colonoscopy results get faxed to their office. They plan to follow up with Dr. Jay. Please fax results to their office. documented in this encounterHolzer Health System11-09-2023 Miscellaneous Notes* Telephone Encounter - Magali Diaz LPN - 05/26/2023 9:06 AM EST Patient notified of results, verbalizes understanding of instructions. Magali Diaz LPN * Telephone Encounter - Ruth Perez APRN.LIZET - 05/25/2023 6:47 PM EST Can you please call the patient and [...] cholesterol to prevent worsening stenosis. Ruth Perez APRN.GANG HEMSTITCHING MACHINE OPERATOR documented in this encounterHolzer Health System11-08-2023 Miscellaneous Notes* Telephone Encounter - Pascale Walker LPN - 05/25/2023 1:13 PM EST Called patient and advised him of diet below. Patient was satisfied with that. Patient has an appointment on 06/[address] Mejia. Pascale Walker LPN * Telephone Encounter - Pascale Walker LPN - 05/24/2023 9:43 AM EST Patient's , Ry, called regarding how patient should proceed. Patient [...] due to having anxiety over this. Informed Ry that Dr. Mejia and Gretel Morgan are out of office until 05/27 but I will reach out to all providers for any recommendations to ease patients concern. Please review and advise. Pascale Walker LPN documented in this encounterHolzer Health System11-08-2023 History of Present illness Narrative* Malathi Aldana, RT(R) - 05/25/2023 10:40 AM EST Radiology Service Progress Note DATE OF SERVICE: [...] creatinine assay has traceable calibration to isotope dilution- mass spectrometry. Refer to KDIGO guidelines for clinical interpretation. In patients with unstable renal function, e.g. those with acute kidney injury, the eGFRmay not accurately reflect actual GFR. eGFR- Date [...] Neck SIGNATURE: RT Mariposa(R) PATIENT NAME: Shelton Fox DATE: May 25, 2023 TIME: 4:16 PM documented in this encounterHolzer Health System11-07-2023 Miscellaneous Notes* Telephone Encounter - Federico Vigil MD - 05/24/2023 8:28 AM EST OK to refill as ordered Federico Vigil MD * Telephone Encounter - Elif Godoy LPN - 05/24/2023 7:52 AM EST Patient has been identified by name and [...] you. Elif Godoy LPN. documented in this encounterHolzer Health System11-06-2023 Miscellaneous Notes* Telephone Encounter - Ruth Perez APRN.CNP - 05/23/2023 8:07 AM EST The following approved medication requests have been transmitted electronically. Requested Prescriptions Signed Prescriptions Disp Refills pantoprazole DR (PROTONIX) 20 mg tablet 90 tablet 3 Sig: Take 1 tablet by mouth daily before breakfast. Take on empty stomach, 1/2 hr before meal. Ruth Perez APRN.CNP * Telephone Encounter - Elizabeth Brennan LPN - 05/23/2023 7:58 AM EST Patient has been identified by name and [...] patient. Elizabeth Brennan LPN documented in this encounterHolzer Health System11-03-2023 NoteHNO ID: [id number] Author: Luma Armstrong RN Service: ? Author Type: Registered Nurse Type: Nursing Progress Note Filed: 05/20/2023 3:43 PM Note Text: Pt to xray for ferdinand hancock.[facility] [id number] NoteHNO ID: [id number] Author: Lexis Junior RT(R) Service: Radiology Author Type: Technologist Type: Progress Notes Filed: 05/20/2023 4:31 PM Note Text: Radiology Service Progress Note PATIENT NAME: Shelton Fox DATE OF SERVICE: May 20, 2023 TIME: [...] BY: RT Lamont(R) May 20, 2023 4:31 PMNationwide Children'S [id number] Miscellaneous Notes* Telephone Encounter - Rick Snell - 05/10/2023 12:35 PM EDT Contacted patient for pre-op GI phone call via either phone and or [employer]. Patient understands prep instructions, sent either [employer] and/or Mail. Understands where to report on the day of procedure. All questions answered and or sent to providers office for clarification. Patient understands [employer] arrival time could change and wait for their arrival time call from the facility the day before procedure.Patient understands must have a ice cream truck driver and or responsible constitution party present. Patient was givendirect phone number to call ) if patient has any further questions or given the option to respond to [email or web address] message If one was sent (please see below for mychart message). If you have any questions please contact the ophthalmic surgical assistant at [phone] or respond to this mychart message. . Thank you, Rick documented in this encounterHolzer Health System10-23-2023 Instructions* Patient Instructions* Ruth Perez APRN.CNP - 05/09/2023 1:[address] [...] up pending test results. documented in this encounterHolzer Health System10-23-2023 History of Present illness Narrative* Ruth Perez APRN.CNP - 05/09/2023 1:00 PM EDT This is a 77 year old male who presents today with: Patient presents with: Acute Visit: continued dizziness, neck ear pain, tinnitis HISTORY OF PRESENT ILLNESS: Shelton Fox is a 77 year old male. Patient presents with: Acute Visit: continued dizziness, neck ear pain, tinnitis Here in the office for continued ear pain and tinnitus. On going dizziness, new onset afib earlier in the year. Following with cardiology ( [facility]), refers following up soon. Getting lightheaded with position changes or moves too quickly. Checking BP at home, 110/40-140/60's. Dizzinesswill improve with rest. Tinnitus bilaterally that is [...] cause unspecified Arthritis Atherosclerotic heart disease of [place] coronary artery without angina pectoris Atrial fibrillation [...] atrial fibrillation as well as typical atrial flutterwith Dr. Walker on 12/20/2022. Subclavian arterial stenosis (HCC) Unspecified atrial fibrillation (HCC) PAST SURGICAL HISTORY Procedure Laterality Date ARTHROPLASTY TOTAL SHOULDER 06/2011 Dr. Benitez. ARTHRP ACETBLR/PROX FEM PROSTC AGRFT/ALGRFT 04/2012 Dr. Wood> [facility] ARTHRP KNE CONDYLE&PLATU MEDIAL&LAT COMPARTMENTS Right COLONOSCOPY W/BIOPSY SINGLE/MULTIPLE 08/24/2006 EGD 12/01/2020 EYE SURGERY HX JOINT REPLACEMENT HX LEFT HEART CATH,PERCUTANEOUS 10/06/2022 OPEN REPAIR OF ROTATOR CUFF ACUTE 10/03/2008 Rotator cuff repair-right PAST SURGICAL HISTORY OF right knee scope PAST SURGICAL HISTORY OF cataract both eyes PAST SURGICAL HISTORY OF N/A 12/20/2022 EPS with Ablation, [facility] TONSILLECTOMY HX TONSILLECTOMY PRIMARY/SECONDARY <AGE 12 [...] by mouth twice daily. (Patient not taking: Reportedon 03/29/2023) allopurinol (ZYLOPRIM) 100 mg tablet TAKE [...] not improve recommend follow up with ENT [place]. - CTA HEAD WO/W IVCON - CTA [...] APRN.LIZET This note was partially generated using [employer] voice recognition system. Note was reviewed for accuracy. There may be minor misspellings or grammar miscues with Dragon voice recognition. documented in this encounterHolzer Health System10-16-2023 Miscellaneous Notes* Telephone Encounter - Janneth Burkett Ma - 05/02/2023 8:06 AM EDT Pt advised he can get the vaccine at any pharmacy or he can call in and make a nurse visit appt. Janneth Burkett Ma documented in this encounterHolzer Health System10-10-2023 History of Present illness Narrative* Gretel Morgan PA-C - 04/26/2023 1:06 PM EDT HISTORY AND PHYSICAL Shelton Fox 1945 REFERRING PHYSICIAN: Federico Vigil MD CHIEF [...] sedation, findings of gastritis. Last colonoscopy in [facility] 09/08/16 with removal of sigmoid polyp, 3 year follow-up recommended. Path report not available in [facility]. Patient's medical history is significant for atrial fibrillation, AVN, cardiomyopathy, coronary stents, carotid stenosis, PAD. He follows with Dr. Vigil in primary care for his chronic medical conditions. PAST MEDICAL HISTORY Diagnosis Date Allergic rhinitis, cause unspecified Arthritis Atherosclerotic heart disease of [place] coronary artery without angina pectoris Atrial fibrillation [...] atrial fibrillation as well as typical atrial flutterwith Dr. Walker on 12/20/2022. Subclavian arterial stenosis (HCC) Unspecified atrial fibrillation (HCC) PAST SURGICAL HISTORY Procedure Laterality Date ARTHROPLASTY TOTAL SHOULDER 06/2011 Dr. Benitez. ARTHRP ACETBLR/PROX FEM PROSTC AGRFT/ALGRFT 04/2012 Dr. Wood> [facility]. ARTHRP KNE CONDYLE&PLATU MEDIAL&LAT COMPARTMENTS Right COLONOSCOPY W/BIOPSY SINGLE/MULTIPLE 08/24/2006 EGD 12/01/2020 EYE SURGERY HX JOINT REPLACEMENT HX LEFT HEART CATH,PERCUTANEOUS 10/06/2022 OPEN REPAIR OF ROTATOR CUFF ACUTE 10/03/2008 Rotator cuff repair-right PAST SURGICAL HISTORY OF right knee scope PAST SURGICAL HISTORY OF cataract both eyes PAST SURGICAL HISTORY OF N/A 12/20/2022 EPS with Ablation, [facility] TONSILLECTOMY HX TONSILLECTOMY PRIMARY/SECONDARY <AGE 12 Tonsillectomy and adnoids Current Outpatient Medications Medication Sig allopurinol (ZYLOPRIM) 100 mg tablet TAKE 1 TABLET BY MOUTH TWICE A DAY apixaban (ELIQUIS) 5 mg tab(s) Take 5 mg by mouth twice daily. carvedilol (COREG) 3.125 mg tablet Take 6.25 mg by mouth twice daily. (Patient not taking: Reportedon 03/29/2023) carvedilol (COREG) 6.25 mg tablet Take [...] entered by the nurse and reviewed by vt Nursing Notes: Flaca Lewis LPN 04/26/2023 1:00 PM Signed REVIEW [...] pain, notes heart disease, notes high blood pressure,notescardiac stent, denies prior heart attack, notes irregular heart beat, notes high cholesterol, notespoor circulation, notes heart failure, other cardiac issues, denies claudication, denies cold feet,denies peripheral arterial stent. Respiratory: The patient denies tuberculosis, denies pneumonia, denies frequent cough, denies pulmonary embolism, denies shortness of breath, and denies coughing up blood. Gastrointestinal: The patient notes difficulty swallowing, notes acid reflux, denies ulcers, deniesvomiting, denies jaundice/hepatitis, denies gallbladder problems, denies black [...] patient's last Mammogram screening? N/A Last Colonoscopy: 2017 Flaca Lewis LPN I have confirmed and edited as necessary, the PFSH and ROS obtained by others. Gretel Morgan PA-C PHYSICAL EXAMINATION: General: The patient is 77 year old male, well nourished, well hydrated in no acute distress. The patient is oriented to time, place, and person. VITALS: Blood pressure 132/64, pulse 61, temperature 36.2 C (97.2 F), height 177.8 cm (5' 10), weight 78.5 kg (173 lb), SpO2 97 %. Body mass index is 24.82 kg/m . HEENT: Normal cephalic, ataumatic, pupils are equally round, sclera are anicteric, mucous membranesare moist, oropharynx is clear. Neck has no [...] Will plan for upper endoscopy. Patient was alsooffered colonoscopy at same setting, as he appears to have history of polyp and be overdue for surveillance colonoscopy. Path report not available for review. Patient declines to schedule colonoscopyat this time. We discussed the risks and [...] letter to requesting physician via US mail. Gretel Morgan PA-C documented in this encounterHolzer Health System10-10-2023 Nurse Note* Flaca Lewis LPN - 04/26/2023 12:56 PM EDT REVIEW OF SYSTEMS: General: The patient notes fatigue, denies weight loss, denies weight gain, notes feeling hot, and denies feelings of cold. Eyes: The patient denies glaucoma, notes eye injury/surgery, wears glasses or contacts. Ear/Nose/Throat: The patient notes allergies, denies hayfever, denies ear infections, and denies bloody noses. Cardiovascular: The patient denies chest pain, notes heart disease, notes high blood pressure,notescardiac stent, denies prior heart attack, notes irregular heart beat, notes high cholesterol, notespoor circulation, notes heart failure, other cardiac issues, denies claudication, denies cold feet,denies peripheral arterial stent. Respiratory: The patient denies tuberculosis, denies pneumonia, denies frequent cough, denies pulmonary embolism, denies shortness of breath, and denies coughing up blood. Gastrointestinal: The patient notes difficulty swallowing, notes acid reflux, denies ulcers, deniesvomiting, denies jaundice/hepatitis, denies gallbladder problems, denies black [...] last Mammogram screening? N/A Last Colonoscopy: 2016 Flaca Lewis LPN documented in this encounterHolzer Health System10-01-2023 History of Present illness Narrative* Ita Villanueva APRN.GANG HEMSTITCHING MACHINE OPERATOR - 04/17/2023 12:34 PM EDT Images from the original note were not included. Subjective Came in with 2 different concerns. Patient said he has had redness on his right ankle for an unspecified amount of time. Denies any pain says it does itch at times. Patient denies any difficulty withrange of motion. Patient also said his middle right toe is red swollen and warm. Patient does have a significant history of gout-like attacks. Patient is on medication for that and just started weaning down. The history is provided by the patient. No senior research consultant was used. Rash Review of Systems Constitutional: [...] cause unspecified Arthritis Atherosclerotic heart disease of [place] coronary artery without angina pectoris Atrial fibrillation [...] atrial fibrillation as well as typical atrial flutterwith Dr. Walker on 12/20/2022. Subclavian arterial stenosis (HCC) Unspecified atrial fibrillation (HCC) PAST SURGICAL HISTORY Procedure Laterality Date ARTHROPLASTY TOTAL SHOULDER 06/2011 Dr. Benitez. ARTHRP ACETBLR/PROX FEM PROSTC AGRFT/ALGRFT 04/2012 Dr. Wood> [facility] ARTHRP KNE CONDYLE&PLATU MEDIAL&LAT COMPARTMENTS Right COLONOSCOPY W/BIOPSY SINGLE/MULTIPLE 08/24/2006 EGD 12/01/2020 EYE SURGERY HX JOINT REPLACEMENT HX LEFT HEART CATH,PERCUTANEOUS 10/06/2022 OPEN REPAIR OF ROTATOR CUFF ACUTE 10/03/2008 Rotator cuff repair-right PAST SURGICAL HISTORY OF right knee scope PAST SURGICAL HISTORY OF cataract both eyes PAST SURGICAL HISTORY OF N/A 12/20/2022 EPS with Ablation, [facility] TONSILLECTOMY HX TONSILLECTOMY PRIMARY/SECONDARY <AGE 12 [...] by mouth twice daily. (Patient not taking: Reportedon 03/29/2023) FAMILY HISTORY Problem Relation Age of [...] Patient was okay with this care plan. Ita Villanueva APRN.CNP documented in this encounterHolzer Health System09-27-2023 History of Present illness Narrative* Elena Hennessy RDMS - 04/13/2023 7:45 AM EDT Radiology Service Progress Note PATIENT NAME: Shelton Fox DATE OF SERVICE: April 13, 2023 TIME: 9:38 AM PATIENT IDENTITY VERIFICATION COMPLETED USING TWO (2) IDENTIFIERS: Name and Date of confirmedby patient verbally. FALL SCREENING: Has the patient [...] 13, 2023 9:38 AM documented in this encounterCleveland [id number] Instructions* Patient Instructions* Malathi Sam APRN.GANG HEMSTITCHING MACHINE OPERATOR - 03/29/2023 3:35 PM EDT Atrial [...] pathways to the upper left atrium and tothe lower chambers of the heart (the ventricles). [...] heart has 4 valves that open and closewith each heartbeat to help blood flow in [...] may help keep you from having so manyspells. If a health problem like a leaky [...] called a catheter to deliver energy to theinside of the heart. The energy (usually radio [...] healthcare provider's instructions for treatment. Copyright 2014 [employer] and/or one of its subsidiaries. All rights reserved. documented in this encounterHolzer Health System09-12-2023 History of Present illness Narrative* Malathi Sam APRN.CNP - 03/29/2023 3:00 PM EDT Images from the original note were not included. [facility] General Cardiology Electrophysiology PRIMARY CARE PHYSICIAN: Federico Vigil [address] [place] [address] CHIEF COMPLAINT: Cardiovascular medicine follow-up for arrhythmia. HISTORY OF PRESENT ILLNESS: Mr. Fox is a 77 year old male who [...] 12/20/2022. He was discharged the next day o n amiodarone due to frequent ectopy. Interval History: The patient reports following ablation, the first 5 days were little rough, but since then has been well. The beginning of March, he ran out of the amiodarone, the medication was stopped per Dr. Walker. He underwent 3- month post ablation testing prior to today's appointment which includes an echocardiogram, CT of the chest and 30-day event monitor was applied. He has been exercising 3 days per week at the wellness center in [place], under the supervision of an senior web applications developer. He checks his heart rhythm daily on the [employer] mobile, reports 2 episodes of atrial fibrillation which he believes only lasted minutes and then resolved, he did not have symptoms associated with these episodes. He denies chest discomfort, palpitations, shortness of breath, lightheadedness,dizziness, near-syncope or syncope. He remains anticoagulated with Eliquis, denies any bleeding issues, does report bruising easily. PAST MEDICAL HISTORY Diagnosis Date Allergic rhinitis, cause unspecified Arthritis Atherosclerotic heart disease of [place] coronary artery without angina pectoris Atrial fibrillation [...] atrial fibrillation as well as typical atrial flutterwith Dr. Walker on 12/20/2022. Subclavian arterial stenosis (HCC) Unspecified atrial fibrillation (HCC) PAST SURGICAL HISTORY Procedure Laterality Date ARTHROPLASTY TOTAL SHOULDER 06/2011 Dr. Benitez. ARTHRP ACETBLR/PROX FEM PROSTC AGRFT/ALGRFT 04/2012 Dr. Wood> [facility] ARTHRP KNE CONDYLE&PLATU MEDIAL&LAT COMPARTMENTS Right COLONOSCOPY W/BIOPSY SINGLE/MULTIPLE 08/24/2006 EGD 12/01/2020 EYE SURGERY HX JOINT REPLACEMENT HX LEFT HEART CATH,PERCUTANEOUS 10/06/2022 OPEN REPAIR OF ROTATOR CUFF ACUTE 10/03/2008 Rotator cuff repair-right PAST SURGICAL HISTORY OF right knee scope PAST SURGICAL HISTORY OF cataract both eyes PAST SURGICAL HISTORY OF N/A 12/20/2022 EPS with Ablation, [facility] TONSILLECTOMY HX TONSILLECTOMY PRIMARY/SECONDARY <AGE 12 [...] by mouth twice daily. (Patient not taking: Reportedon 03/29/2023) REVIEW OF SYSTEMS: Review of Systems [...] size. Left ventricular systolic function is moderately decreased.EF = 40 5% (2D 4-ch.) Left ventricular [...] with occasional PVCs, RBBB, LAFB, 65 bpm, FL 198 ms, QRS 130 ms, QT/QTc 452/470 [...] patient and his spouse verbalized understanding. 4. longterm current use of antiarrhythmic drug - ICD9: V58.69, ICD10: Z79.899 - amiodarone; indication: Paroxysmal atrial fibrillation, amiodarone was discontinued at the beginning of this month. In the future, if patient needs antiarrhythmic drug therapy, will consider dofetilide, as discussed with Dr. Walker. 5. terminal gauger (current) use of anticoagulants - ICD9: V58.61, [...] months (around 06/28/2023) for Dr. Walker or APRN. Malathi Sam APRN.CNP Medical Decision Making: Problems: Moderate: [...] to correct any errors. documented in this encounterHolzer Health System09-12-2023 NoteHNO ID: [id number] Author: Malathi Sam APRN.CNP Service: ? Author Type: Nurse Practitioner Type: Progress Notes Filed: 03/29/2023 3:48 PM Note Text: [facility] General Cardiology Electrophysiology PRIMARY CARE PHYSICIAN: Federico Vigil [address] [place] [address] CHIEF COMPLAINT: Cardiovascular medicine follow-up for arrhythmia. HISTORY OF PRESENT ILLNESS: Mr. 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 He checks his heart rhythm daily on the [employer] mobile, reports 2 episodes of atrial fibrillation [...] cause unspecified Arthritis Atherosclerotic heart disease of [place] coronary artery without angina pectoris Atrial fibrillation [...] ACETBLR/PROX FEM PROSTC AGRFT/ALGRFT 04/2012 Dr. Wood> [facility]. ARTHRP KNE CONDYLEANDPLATU MEDIALANDLAT COMPARTMENTS Right COLONOSCOPY W/BIOPSY SINGLE/MULTIPLE 08/24/2006 EGD 12/01/2020 EYE SURGERY HX JOINT REPLACEMENT HX LEFT HEART CATH,PERCUTANEOUS 10/06/2022 OPEN REPAIR OF ROTATOR CUFF ACUTE 10/03/2008 Rotator cuff repair-right PAST SURGICAL HISTORY OF right knee scope PAST SURGICAL HISTORY OF cataract both eyes PAST SURGICAL HISTORY OF N/A 12/20/2022 EPS with Ablation, [facility] TONSILLECTOMY HX TONSILLECTOMY PRIMARY/SECONDARY Tonsillectomy and adnoids Social History Tobacco Use Smoking status: Former Packs/day: 1.00 Years: 10.00 Additional pack years: 0.00 Total pack years: 10.00 Types: Cigarettes Quit date: 07/18/1971 Years since quittin.7 Smokeless tobacco: Never Vaping Use Vaping Use: Never used Substance Use Topics Alcohol use: Yes Alcohol/week: 5 (more content not included)...[facility] 03-29-2023 Nurse Note* Veronica Rosas MA - 03/29/2023 2:57 PM EDT No cardiac complaints today. Veronica Rosas MA documented in this encounterHolzer Health System09-12-2023 Nurse Note* Cassidy Munoz, Qm Nurse - 03/29/2023 11:00 AM EDT Applied event monitor. Pt verbalized understanding of monitor use and appropriately demonstrated recording a baseline. Spouse present for instruction. documented in this encounterHolzer Health System09-12-2023 History of Present illness Narrative* Tatianna Benavidez RT(R) - 03/29/2023 8:30 AM EDT Radiology Service Progress Note DATE OF SERVICE: [...] creatinine assay has traceable calibration to isotope dilution- mass spectrometry. Refer to KDIGO guidelines for clinical interpretation. In patients with unstable renal function, e.g. those with acute kidney injury, the eGFRmay not accurately reflect actual GFR. eGFR- Date Value Ref Range Status 04/09/2021 >60 Final P.O.C.T. RESULTS: POC done: Yes, See Lab Tab March 29, 2023 TREATMENT: N/A PERIPHERAL IV DATA: Ambulatory: A peripheral IV was started in the Right antecubital site with a Angio cath: 20 gauge. RADIOLOGY DEPARTMENT: CT; Exam(s) Completed: Cardiac SIGNATURE: RT Flory(R) PATIENT NAME: Shelton Fox DATE: March 29, 2023 TIME: 8:27 AM documented in this encounterHolzer Health System09-12-2023 NoteHNO ID: [id number] Author: Tatianna Benavidez RT(R) Service: Radiology Author [...] Cardiac SIGNATURE: RT Flory(R) PATIENT NAME: Shelton Fox DATE: March 29, 2023 TIME: 8:27 [facility]09-08-2023 NoteHNO ID: [id number] Author: Elena Watkins APRN.GANG HEMSTITCHING MACHINE OPERATOR Service: ? Author Type: Nurse Practitioner Type: Progress Notes Filed: 03/25/2023 11:33 AM Note Text: Shelton Fox is a 77 year old male presents for yearly evaluation of carotid disease. He is a prior [facility] pt, and established care with Dr. Caba a year ago at the [place] office, following [facility]'s prison. Annual Carotid US was requested. Pt has [...] cause unspecified Arthritis Atherosclerotic heart disease of [place] coronary artery without angina pectoris Atrial fibrillation [...] ACETBLR/PROX FEM PROSTC AGRFT/ALGRFT 04/2012 Dr. Wood> [facility]. ARTHRP KNE CONDYLEANDPLATU MEDIALANDLAT COMPARTMENTS Right COLONOSCOPY W/BIOPSY SINGLE/MULTIPLE 08/24/2006 EGD 12/01/2020 EYE SURGERY HX JOINT REPLACEMENT HX LEFT HEART CATH,PERCUTANEOUS 10/06/2022 OPEN REPAIR OF ROTATOR CUFF ACUTE 10/03/2008 Rotator cuff repair-right PAST SURGICAL HISTORY OF right knee scope PAST SURGICAL HISTORY OF cataract both eyes PAST SURGICAL HISTORY OF N/A 12/20/2022 EPS with Ablation, [facility] TONSILLECTOMY HX TONSILLECTOMY PRIMARY/SECONDARY Tonsillectomy and [...] prior to anticipated interco (more content not included)...[facility]09-01-2023 Miscellaneous Notes* Telephone Encounter - Elena Foster LPN - 03/18/2023 10:10 AM EDT Left message for to call [facility] for update and new order. [facility] phone number provided. Elena Foster LPN * Telephone Encounter - Timothy Walker MD - 03/18/2023 8:45 AM EDT He can stop amio now. * Telephone Encounter - Elena Foster LPN - 03/18/2023 7:09 AM EDT Patient's request for medication is as follows: Requested Prescriptions Pending Prescriptions Disp Refills amiodarone (PACERONE) 200 mg tablet [Pharmacy Med Name: AMIODARONE HCL 200 MG TABLET] 90 tablet 0 Sig: Take 1 tablet by mouth once daily. Last seen 11/29/2022. Follow up scheduled for 03/29/2023. Prescription(s) as above. Please process accordingly. Elena Foster LPN documented in this encounterHolzer Health System08-31-2023 Miscellaneous Notes* Telephone Encounter - Ruth Perez APRN.GANG HEMSTITCHING MACHINE OPERATOR - 03/17/2023 3:25 PM EDT Consult has been signed, printed, and faxed to [facility]. Ruth Perez APRN.LIZET * Telephone Encounter - Precious Henry RN - 03/03/2023 8:36 AM EDT Spouse ([place]) calls and reports that the recommendation would be for a referral to pulmonology and asking if provider would send it to [facility]. Pended consult for a-fib with excessive daytime sleepiness per spouse's request. Please fax to [phone] if provider agrees. Precious Henry RN * Telephone Encounter - Yasmeen Oliveros Ma - 02/17/2023 12:28 PM EDT If Sleep Lab states that this this is not covered by pt's insurance and Cardio wanted this completed, what do you suggest? Yasmeen Oliveros Ma * Telephone Encounter - Elif Godoy LPN - 02/17/2023 11:31 AM EDT [facility] called and the office notes they received do not support the order for sleep study. The phone number shows the safety physician wanted pt to have this done. Per the Sleep lab ptwill need a face to face with documentation from pcp is needed. Please contact pt to schedule a face to face apt. After this has been done please fax office note to [facility]. Need documented signs and symptoms that qualify pt for the sleep study. Elif Godoy LPN documented in this encounterHolzer Health System08-07-2023 Miscellaneous Notes* Telephone Encounter - Elena Watkins APRN.CNP - 02/21/2023 1:58 PM EDT Noted and agree with plan. Thank you, Elena Watkins APRN.LIZET * Telephone Encounter - Keila Renteria LPN - 02/21/2023 1:24 PM EDT Spouse, Ry, calling in to Nurse's Line to advise that patient is experiencing head pain and blurred vision. Patient went to his chromosomal disorders counselor/opthalmology who cleared him there. Spouse states there was a change on patient's carotid but patient also had ablation for A-fib by Dr. Joya (sp?). Patient wasn't due for his carotid follow-up until April however they got an early appointment, March 17, 2023 at 9:30am. This Nurse returned call to confirm the March 17, 2023 appointment and to notify us if any changesor concerns and always, if patient's symptoms worsen, to get him to the closest medical facility anitra evaluated. Keila Renteria LPN February 21, 2023 1:28 PM documented in this encounterHolzer Health System07-11-2023 Miscellaneous Notes* Telephone Encounter - Orly Corrigan - 01/25/2023 9:13 AM EDT LMOM to schedule with Dr Caba in [place] Annual F/UP for Carotid Stenosis, Asymptomatic, Bilat with US CAROTID BILAT 02/15/2023 *DOLLY SCHULER* documented in this encounterHolzer Health System07-03-2023 History of Present illness Narrative* Federico Vigil MD - 01/17/2023 3:00 PM EDT Chief Complaint Follow up HPI Shelton Fox is a 77 year old male who presents here today for a follow up visit. Pt here today with his , Ry to discuss his recent health changes. GI/Uro [...] a cardiac work out he received from [facility]. On current regimen of Lisinopril 2.5 mg once daily in addition to Coreg 3.125 mg 2 tab po bid, Jardiance 10 mg once daily, Eliquis 5 mg bid, Amiodarone 200 mg once daily, Lasix 40 mg prn, Aldactone 25 mg once daily and Plavix 75 mg once daily. Afib - Is followed by [facility], had new onset of Afib earlier this year. Pt had cardiac work up completed with stress test, heart cath with 2 stents placed in September. Pt was then referred for ablation, which was completed on 12/20/22. Pt was seen in [place] by Dr. Walker. Has f/u with Cardio. [...] cause unspecified Arthritis Atherosclerotic heart disease of [place] coronary artery without angina pectoris Atrial fibrillation [...] atrial fibrillation as well as typical atrial flutterwith Dr. Walker on 12/20/2022. Subclavian arterial stenosis (HCC) Unspecified atrial fibrillation (HCC) Previous Surgical History PAST SURGICAL HISTORY Procedure Laterality Date ARTHROPLASTY TOTAL SHOULDER 06/2011 Dr. Benitez. ARTHRP ACETBLR/PROX FEM PROSTC AGRFT/ALGRFT 04/2012 Dr. Wood> [facility]. ARTHRP KNE CONDYLE&PLATU MEDIAL&LAT COMPARTMENTS Right COLONOSCOPY [...] Moderate Federico Vigil MD documented in this encounterHolzer Health System06-15-2023 Miscellaneous Notes* Telephone Encounter - Tiarra Rand - 12/30/2022 9:51 AM EDT Post PVAI orders pended for signature documented in this encounterHolzer Health System05-16-2023 Miscellaneous Notes* Telephone Encounter - Magda Wallace RN - 11/30/2022 9:14 AM EDT Pt's name has been added to jay procedure board. Magda Wallace RN * Telephone Encounter - Tiarra Rand - 11/30/2022 8:59 AM EDT Patient is scheduled for a PVI Ablation on 12/[address] Walker. The hospital will call the day before between 2-5pm with your arrival time. You should not eat or drink after midnight the day before the procedure. You will need a ice cream truck driver when released from the hospital and you will stay overnight for observation. You should continue to take medications as prescribed the morning of the procedure with just a sip of water unless otherwise instructed. Spoke with Shelton Fox on November 30, 2022. Informed of instructions as stated above. Patient verbalized understanding. Tiarra Rand documented in this encounterHolzer Health System05-15-2023 Instructions* Patient Instructions* Timothy Walker MD - 11/29/2022 10:13 AM EDT [...] pathways to the upper left atrium and tothe lower chambers of the heart (the ventricles). [...] heart has 4 valves that open and closewith each heartbeat to help blood flow in [...] may help keep you from having so manyspells. If a health problem like a leaky [...] called a catheter to deliver energy to theinside of the heart. The energy (usually radio [...] healthcare provider's instructions for treatment. Developed by [employer]. Published by [employer]. Copyright 2014 [employer] and/or one of its subsidiaries. All rights reserved. documented in this encounterHolzer Health System05-15-2023 History of Present illness Narrative* Timothy Walker MD - 11/29/2022 9:42 AM EDT Images from the original note were not included. PRIMARY CARE PHYSICIAN: Federico Vigil [address] [place] [address] REFERRING PHYSICIAN: No referring provider defined for this encounter. Patient Care Team: Federico Vigil MD as PCP - General (Family Medicine) CHIEF COMPLAINT: Paroxysmal atrial fibrillation HISTORY OF PRESENT ILLNESS: Mr. Fox is a 77 year old male with [...] a sleep study because of his history ofsnoring. Patient was referred to electrophysiology for management of atrial fibrillation. He denies chest pain, orthopnea, cough, edema, PND, lightheadedness or syncope. I have confirmed and edited as necessary, the PFSH and ROS obtained by others. PAST MEDICAL HISTORY Diagnosis Date Allergic rhinitis, cause unspecified Arthritis Atherosclerotic heart disease of [place] coronary artery without angina pectoris Atrial fibrillation [...] ACETBLR/PROX FEM PROSTC AGRFT/ALGRFT 04/2012 Dr. Wood> [facility]. ARTHRP KNE CONDYLE&PLATU MEDIAL&LAT COMPARTMENTS Right COLONOSCOPY [...] Negative for: Weakness, Paralysis, Numbness, Tingling, Tremor, Nervousness,Depressed mood, Memory loss SKIN: Negative for: Rashes, Itching HEMATOLOGICAL/LYMPHATIC: Negative for: Easy bruising , Easy bleeding ENDOCRINE: Negative for: Heat or cold intolerance, Excessive sweating, Frequent urination, Frequentthirst PHYSICAL EXAMINATION: BP 122/69 Pulse 65 Ht 5' 10 (1.78m) Wt 176 lb 6.4 oz (80.0kg) SpO2 99% BMI 25.31 kg/(m^2). General: Well appearing, in no acute distress. Skin: No clubbing, no cyanosis. Eyes: Extra ocular movements intact Oropharynx: Teeth in good repair. Neck: No jugular venous distention, no carotid bruits, carotids have a normal upstroke, no palpablethyromegaly. Lungs: Clear to auscultation bilaterally, no wheezing [...] MEDICINE TESTING: Electrocardiogram: Echocardiogram: Stress test: 09/24/2022 [facility]: I have personally reviewed the Electrocardiogram, Echocardiogram, and Stress Test: Nuclear (Non-PET). ASSESSMENT/PLAN: 1. PAF (paroxysmal atrial fibrillation) ([facility]) - ICD9: 427.31, ICD10: I48.0 (primary diagnosis) 2. Atrial fibrillation, unspecified type (HCC) - ICD9: 427.31, ICD10: I48.91 - ECG B/O W INTERP (MED OFFICE) 3. Cardiomyopathy, ischemic - ICD9: 414.8, ICD10: I25.5 4. PAD (peripheral artery disease) (HCC) - ICD9: 443.9, ICD10: I73.9 5. Mixed hyperlipidemia - ICD9: 272.2, ICD10: E78.2 6. Coronary artery disease involving [place] coronary artery of [place] heart without angina pectoris- ICD9: 414.01, ICD10: I25.10 7. S/P drug eluting coronary stent placement - ICD9: V45.82, ICD10: Z95.5 IMPRESSION: Mr. Fox is a 77 year old male with PMH significant for hypertension, hyperlipidemia, GERD, CAD status post PCI to OM, PAD, chronic systolic heart failure (EF 40%), paroxysmal atrial fibrillation who presents today as a referral for management of atrial fibrillation. Patient was formally diagnosedin July 2022 with symptomatic atrial fibrillation which is currently rate controlled. He presents today to discuss various options for rhythm control of atrial fibrillation. I did discuss the natural history of atrial fibrillation and progression especially given concomitant history of multiple risk factors including hypertension, possible ALONDRA, and dilated left atrium. Idiscussed options for rhythm control with AAD, which will probably involve Tikosyn initiation as heis likely not a candidate for other antiarrhythmics [...] left anterior fascicular block at baseline, no historyof syncope and currently no indication for pacemaker. We will continue to monitor. -We will also need repeat echo in 3 to 4 months after PCI and then ablation to achieve rhythm control, to assess with improvement in EF. Return in about 3 months (around 03/01/2023). Or follow-up to be determined after atrial fibrillation ablation. Timothy Walker MD documented in this encounterHolzer Health System05-15-2023 Nurse Note* Veronica Rosas MA - 11/29/2022 9:39 AM EDT C/o SOB. Veronica Rosas MA documented in this encounterHolzer Health System04-26-2023 Miscellaneous Notes* Telephone Encounter - Karine Salvador LPN - 11/10/2022 4:33 PM EDT Patient aware. Karine Salvador LPN * Telephone Encounter - Anna Marie APRN.CNP - 11/10/2022 3:44 PM EDT I understand but since they saw him I would feel tanya if they talk with him first. Thanks, Anna Marie APRN.CNP * Telephone Encounter - Gretel Morelos RN - 11/10/2022 3:33 PM EDT Pts called and is notified of providers message and instructions. She voices understanding. She states they weren't trying to go over Dr Cline, but she said sometimes he will have them go to the PCP. She was sent through on the phones to Dr Berkowitz office. Gretel Morelos RN * Telephone Encounter - Anna Marie APRN.CNP - 11/10/2022 3:12 PM EDT I would have him follow-up with Dr. Cline as if he recommended he not have it I do not feel comfortable overriding his decision since he has been treating this. Anna Marie APRN.CNP * Telephone Encounter - Evon Ross RN - 11/10/2022 3:03 PM EDT checking on reply. Scheduled same day appt with Associate Professor Of Communication. * Telephone Encounter - Elif Godoy LPN - 11/10/2022 10:18 AM EDT called in and pt has seen Dr. [...] does have and apt but needs help whilewaiting for apt. Please advise . Elif Godoy LPN documented in this encounterHolzer Health System04-26-2023 Miscellaneous Notes* Telephone Encounter - Gretel Bansal RN - 11/10/2022 4:24 PM EDT See Phone Encounter 11/10/22. Called patient and notified him that new steroid script was sent to pharmacy. * Telephone Encounter - Nurys Stevens LPN - 11/08/2022 9:56 AM EDT Records faxed to [facility] Dr. Seo. Consent has been scanned into chart. Nurys Stevens LPN * Telephone Encounter - Nurys Stevens LPN - 11/08/2022 9:02 AM EDT Called patient to inform him that he will need to stop into office and sign a consent to forward medical records to arthritis clinic.Patient verbalized understanding. Patient asked if he could have another round of prednisone but tapered. Nurys Stevens LPN documented in this encounterHolzer Health System04-26-2023 Miscellaneous Notes* Telephone Encounter - Nurys Stevens LPN - 11/10/2022 4:06 PM EDT Images from the original note were not included. Karina Cline [facility] Podiatry Pool 1 minute ago (4:04 PM) I will call in oral steroid for one time refill. If condition fails to improve, present to ed Karina Cline DPM * Telephone Encounter - Malathi Padilla LPN - 11/10/2022 3:50 PM EDT Ry called. Verified name and date of of patient. Patient was referred to reach back out toDr. Cline due to continuity of care. Patient has rheumatology appointment in two weeks but the gout is causing pain, redness, swelling, and warm to touch. He did complete the prednisone but it didnot help completely. Per Ry it helped about 70%. On the last day it was not completely resolved.Ry did express going to [facility] or Emergency Room but would really like to have guidance from Dr. Cline. Please review and advise. Malathi Padilla LPN documented in this encounterHolzer Health System04-26-2023 Miscellaneous Notes* Telephone Encounter - Karina Cline - 11/10/2022 4:04 PM EDT Called in refill for oral steroid documented in this encounterHolzer Health System04-19-2023 History of Present illness Narrative* Arun Lopez RT(R) - 11/03/2022 9:30 AM EDT Radiology Service Progress Note PATIENT NAME: Shelton Fox DATE OF SERVICE: November 03, 2022 TIME: 9:28 AM PATIENT IDENTITY VERIFICATION COMPLETED USING TWO (2) IDENTIFIERS: Name and Date of confirmedby patient verbally. FALL SCREENING: Has the patient had 2 falls in the last year or 1 fall with injury or currently using an Ambulatory Assistive Device (Walker, Cane, Wheelchair, Crutches, etc.)? No PATIENT GENDER DATA: Male PATIENT RELEVANT IMPLANT DATA REVIEWED: Not Applicable RADIOLOGY DEPARTMENT: General X-ray: Exam(s) Completed: Lower Extremity X- Ray(s): Foot, Right and Wt. Bearing PERIPHERAL IV DATA: Not applicable SIGNED BY: RT Eunice(R) November 03, 2022 9:28 AM documented in this encounterHolzer Health System04-12-2023 Instructions* Patient Instructions* Ruth Perez APRN.CNP - 10/27/2022 11:16 AM EDT Continue to take all medication as prescribed. Keep scheduled appointments with cardiology Red flag symptoms go to ER Due for Tdap booster Follow up in 6 months or sooner as needed. documented in this encounterHolzer Health System04-12-2023 History of Present illness Narrative* Ruth Perez APRN.CNP - 10/27/2022 11:00 AM EDT This is a 77 year old male who presents today with: Patient presents with: 6 Month Exam HISTORY OF PRESENT ILLNESS: Shelton Fox is a 77 year old male. Patient presents with: 6 Month Exam Office for 6-month follow-up. Afib: Was seen by [facility] for new onset A-fib. Had cardiac work-up completed by them, stress test/heart cath. 2 stents placed in September Was referred to [facility] cardiology for ablation due to afib. [...] Gout: Taking Allopurinol 100 mg twice daily.Saw Staging Technician, had an injection into the foot. Injection [...] ACETBLR/PROX FEM PROSTC AGRFT/ALGRFT 04/2012 Dr. Wood> [facility]. ARTHRP KNE CONDYLE&PLATU MEDIAL&LAT COMPARTMENTS Right COLONOSCOPY [...] 100 mg by mouth once daily. omega 9-bqh-wzy-fish oil 500-100-1,000 mg cap Take 1 capsule [...] APRN.LIZET This note was partially generated using [employer] voice recognition system. Note was reviewed for accuracy. There may be minor misspellings or grammar miscues with [employer] voice recognition. documented in this encounterHolzer Health System04-10-2023 Instructions* Patient Instructions* Karina Cline - 10/25/2022 1:16 PM EDT STEROID INJECTION You have been injected with a corticosteroid and local anesthesia today. This should provide reliefof symptoms for the next 8 hours or [...] joint infection may occur. Joint infection is aconcern if you experience any of the following: [...] injections of steroids can also damage joint cartilage.For these reasons, there are limits to how many times and how frequently corticosteroid injections can be used in the same area. If anything seems unusual or out of the ordinary please contact our office as soon as possible for further instruction. documented in this encounterHolzer Health System04-10-2023 History of Present illness Narrative* Karina Marlyn - 10/25/2022 1:09 PM EDT FOLLOW UP PODIATRIC OFFICE VISIT Chief Complaint: [...] 5.5 4.3 - 5.6 % Final Comment: [place] [employer] guidelines indicate that patients with [...] 100 mg by mouth once daily. omega 3-qbb-ilp-fish oil 500-100-1,000 mg cap Take 1 capsule [...] ACETBLR/PROX FEM PROSTC AGRFT/ALGRFT 04/2012 Dr. Wood> [facility]. ARTHRP KNE CONDYLE&PLATU MEDIAL&LAT COMPARTMENTS Right [...] % Marcaine plain, of kenalog and cc ofdexamethazone Patient noted immediate improvement following injection. Will repeat blood work today. Discussed swelling. Was told by cardiology to discontinue. Would recommend compression stocking. Karina Cline DPM * Rosemary Desouza RN - 10/25/2022 12:58 PM EDT AMB ROOMING INTAKE FLOWSHEET DATA Pain Pain [...] to foot and ankle. documented in this encounterHolzer Health System04-04-2023 Miscellaneous Notes* Telephone Encounter - Nurys Stevens LPN - 10/19/2022 8:55 AM EDT Patient notified of results and provider's instructions. Patient verbalizes understanding. Patient states he just needs shot and he as an appointment on 11/02/2022. Nurys Stevens LPN documented in this encounterHolzer Health System04-03-2023 Miscellaneous Notes* Telephone Encounter - Phani Rajan APRN.CNP - 10/18/2022 8:27 AM EDT The following approved medication requests have been transmitted electronically. Requested Prescriptions Pending Prescriptions Disp Refills allopurinol (ZYLOPRIM) 100 mg tablet [Pharmacy Med Name: ALLOPURINOL 100 MG TABLET] 180 tablet 1 Sig: TAKE 1 TABLET BY MOUTH TWICE A DAY Phani Rajan APRN.LIZET * Telephone Encounter - Luma Keyes MA - 10/18/2022 8:10 AM EDT Patient has been identified by name and [...] 10/27/22 Luma Keyes MA documented in this encounterHolzer Health System03-29-2023 Miscellaneous Notes* Telephone Encounter - Karina Cline - 10/13/2022 2:38 PM EDT I called patient and spoke to He started the medication He just started yesterday Will check back later in week to see how he is doing Informed patient that I am out of town next week so if issues arise, present to hospital Karina Cline DPM * Telephone Encounter - Karina Cline - 10/12/2022 12:45 PM EDT I attempted to contact patient but no answer. I am going to hold on colcrys and give him oral steroid. I am also going to call in antibiotic as precaution as blood work was slightly elevated Left message. Karina Cline DPM * Telephone Encounter - Gretel Bansal RN - 10/12/2022 10:45 AM EDT Spoke with Pharmacy, they state that the interaction is with patient's Simvastatin and can cause muscle pain. Notified Dr. Cline. Will wait for further instructions. * Telephone Encounter - Seema Kitchen RN - 10/12/2022 10:22 AM EDT Pt called back again stating pharmacy will not fill script until they are contacted from Dr. Berkowitz office due to medication interactions. She is asking that either that happens or they receive a call back. She stated the patient had a rough night as he is in a ton of pain with what they believe is gout. Please contact patient.Seema Stitzlein, RN * Telephone Encounter - Pascale Walker LPN - 10/11/2022 4:07 PM EDT Patient's called stating she went to [facility] prescription colchicine (COLCRYS) 0.6 mg tablet, pharmacy stated they are waiting on a reply from doctor. Please review and advise pharmacy and patient. Pascale Walker LPN documented in this encounterHolzer Health System03-27-2023 History of Present illness Narrative* Karina Cline - 10/11/2022 1:11 PM EDT Images from the original note were not [...] pain but he is concerned about the overallappearance. Patient was recently on oral steroid (possibly [...] Duration Units: Weeks Frequency: Intermittent Intervention/Comfort measure: Reposition;Relaxation;Cold;Medication Hemoglobin A1C (%) Date Value 10/06/2021 5.5 [...] BY MOUTH EVERY DAY (Patient not taking: Reportedon 08/05/2022) simvastatin (ZOCOR) 20 mg tablet Take 1 tablet by mouth once daily. sildenafil (VIAGRA) 100 mg tablet Take 1/2 to 1 tablet by mouth 1 hour prior to anticipated intercourse. POTASSIUM-99 ORAL Take 99 % by mouth twice daily. lisinopril (ZESTRIL, PRINIVIL) 10 mg tablet Take 1 tablet by mouth once daily. (Patient not taking:Reported on 08/30/2022) aspirin 81 mg chewable tablet Take 81 mg by mouth once daily. coenzyme Q10 (COENZYME Q-10) 100 mg cap capsule Take 100 mg by mouth once daily. omega 7-lul-ejf-fish oil 500-100-1,000 mg cap Take 1 capsule [...] ACETBLR/PROX FEM PROSTC AGRFT/ALGRFT 04/2012 Dr. Wood> [facility]. ARTHRP KNE CONDYLE&PLATU MEDIAL&LAT COMPARTMENTS Right COLONOSCOPY [...] at this present time, favor more gout. Willcheck esr, crp, cbc, uric acid 4. Will [...] results. Karina Cline DPM Podiatry [address] [facility] [address] Dept: [phone] Dept * Nurys Stevens LPN - 10/11/2022 1:01 PM EDT AMB ROOMING INTAKE FLOWSHEET DATA Pain Pain [...] touched. Nurys Stevens LPN documented in this encounterHolzer Health System03-27-2023 Miscellaneous Notes* Telephone Encounter - Nurys Stevens LPN - 10/11/2022 10:39 AM EDT Patient scheduled for 10/11/2022. Nurys Stevens LPN * Telephone Encounter - Coral Burks Pss - 10/11/2022 9:16 AM EDT Patient returned office call and has been scheduled with Dr. Cline on 10/14. Patient voiced understanding. * Telephone Encounter - Nurys Stevens LPN - 10/11/2022 8:50 AM EDT Called patient to offer sooner appointments. No response. Left VM. Nurys Stevens LPN documented in this encounterHolzer Health System03-13-2023 History of Present illness Narrative* Ita Villanueva APRN.GANG HEMSTITCHING MACHINE OPERATOR - 09/27/2022 9:03 AM EDT Images from the original note were not [...] history is provided by the patient. No senior research consultant was used. Pain (foot) Review of Systems [...] ACETBLR/PROX FEM PROSTC AGRFT/ALGRFT 04/2012 Dr. Wood> [facility] ARTHRP KNE CONDYLE&PLATU MEDIAL&LAT COMPARTMENTS Right [...] mg by mouth once daily.^Disp: ^Rfl: omega 1-daa-qly-fish oil 500-100-1,000 mg cap^Take 1 capsule by mouth once daily. ^Disp: ^Rfl: multivitamins ORAL Liqd^TAKES 1 OUNCE DAILY^Disp: ^Rfl: methylPREDNISolone (MEDROL, NOAH,) 4 mg Dose-Pack^Take as directed^Disp: 21 tablet^Rfl: [...] 1 tablet by mouth once daily.^Disp: 90 tablet^Rfl:3 (Patient not taking: Reported on 08/30/2022) FAMILY [...] IMPRESSION IMPRESSION: No acute fracture or dislocation Feather Drying Machine Operator: [facility]PITALDevorah Transcribe Date/Time: Sep 27 2022 9:58A [...] Patient was okay with this care plan. Ita Villanueva APRN.CNP documented in this encounterHolzer Health System03-07-2023 Miscellaneous Notes* Telephone Encounter - Phani Rajan APRN.CNP - 09/21/2022 2:59 PM EST The following approved medication requests have been transmitted electronically. Requested Prescriptions Pending Prescriptions Disp Refills metoprolol succinate ER (TOPROL XL) 25 mg 24 hr tablet [Pharmacy Med Name: METOPROLOL SUCC ER 25 MGTAB] 30 tablet 5 Sig: TAKE 1 TABLET BY MOUTH EVERY DAY Phani Rajan APRN.CNP * Telephone Encounter - Luma Keyes MA - 09/21/2022 2:49 PM EST Patient has been identified by name and date of : Yes Requested Prescriptions Pending Prescriptions Disp Refills metoprolol succinate ER (TOPROL XL) 25 mg 24 hr tablet [Pharmacy Med Name: METOPROLOL SUCC ER 25 MGTAB] 30 tablet 5 Sig: TAKE 1 TABLET BY MOUTH EVERY DAY RX INSTRUCTIONS: Patient aware RX will be sent to pharmacy. No need to notify patient. Patient last office visit: 08/30/22 Patient next office visit: 10/27/22 Luma Keyes MA documented in this encounterHolzer Health System03-02-2023 Miscellaneous Notes* Telephone Encounter - Yasmeen Oliveros Ma - 09/16/2022 4:48 PM EST Called and spoke with and notified her of message below. She verbalized understanding and wanted to thank PCP for doing this. Going to a lot of appt's for Cardiology. Yasmeen Oliveros Ma * Telephone Encounter - Federico Vigil MD - 09/16/2022 4:42 PM EST I would suggest another Medrol dose noah as ordered to clear up his attack. He has appt with Ruth in October. Federico Vigil MD * Telephone Encounter - Phylicia Alberts RN - 09/16/2022 4:12 PM EST Patient's is calling because he is having what she thinks is a gout flare of his left foot second toe. She says his toe is red, swollen, shiny, painful and warm. He had a flare in July of hisright big toe. He is currently taking Allopurinol 100 mg twice daily. He started taking Lasix 40 mgon 09/07/22. She says the swelling has improved in both feet but now he noticed the swelling on thetop of the left foot near the red toe. He used to take an NSAID (Aleve) for a mild flare but is nowon Eliquis and cannot do so. She said he'd be willing to come in for an office visit. She is asking for a recommendation? Phylicia Alberts RN documented in this encounterHolzer Health System02-28-2023 Miscellaneous Notes* Telephone Encounter - Federico Vigil MD - 09/14/2022 2:01 PM EST OK to refill as ordered Federico Vigil MD documented in this encounterHolzer Health System02-21-2023 Miscellaneous Notes* Telephone Encounter - Janneth Burkett Ma - 09/07/2022 4:02 PM EST Notified via [email or web address]. Janneth Burkett Ma * Telephone Encounter - Federico Vigil MD - 09/07/2022 3:56 PM EST OK for Lasix 40 mg daily as ordered Federico Vigil MD * Telephone Encounter - Cynthia Sam RN - 09/07/2022 3:35 PM EST Patient's calls and states that patient has not been able to sleep due to cough. Patient's states that she had called safety physician and was told that it sounds like patient may need some lasix. Patient does have pitting edema to left foot. By the end of day patient has pitting edema to bilateral feet. states that safety physician nurse told her to call PCP for lasix since he has not hadestablish care visit with safety physician (this appointment is 09/13/2022). asking if provider can order lasix? [facility]. Please review and advise, Cynthia Sam RN documented in this encounterHolzer Health System02-20-2023 Miscellaneous Notes* Telephone Encounter - Ruth Perez APRN.CNP - 09/06/2022 1:47 PM EST Order has been placed and faxed. Ruth Perez APRN.LIZET * Telephone Encounter - Phylicia Albetrs RN - 09/06/2022 12:36 PM EST Luma @ [facility] Cardiovascular Testing calling to request order for Nuclear Lexiscan. They were unableto perform Exercise Stress ECG due to patient is in A fib. Please fax order to [facility]. Phylicia Alberts RN documented in this encounterHolzer Health System02-15-2023 Miscellaneous Notes* Telephone Encounter - Ruth Perez APRN.CNP - 09/01/2022 10:32 AM EST Noted, last office note, echo results, and EKG faxed to [facility] office. Ruth Perez APRN.CNP * Telephone Encounter - Magali Diaz LPN - 09/01/2022 9:56 AM EST Patient notified of results, verbalizes understanding of instructions. Pt has appt. with [facility]. on Sep 13 Magali Diaz LPN * Telephone Encounter - Ruth Perez APRN.CNP - 09/01/2022 9:34 AM EST Can you please call the patient and [...] is agreeable I can check with the [facility] at [facility] to see if they can see him sooner? Please let me know what he prefers. Thank you. Ruth Perez APRN.LIZET documented in this encounterHolzer Health System02-13-2023 Miscellaneous Notes* Telephone Encounter - Janneth Burkett Ma - 08/30/2022 3:45 PM EST Stress test order faxed to [facility]. Referral, demo, OV, lab, insurance card, faxed to [facility]. Janneth Burkett Ma * Telephone Encounter - Barbara Combs - 08/30/2022 3:19 PM EST Patient would like stress test sent to [facility] to complete as patient is current scheduled for 01/10 andthey would also like cardi[facility] consult [facility] documented in this encounterHolzer Health System02-10-2023 Miscellaneous Notes* Telephone Encounter - Ruth Perez APRN.CNP - 08/27/2022 9:04 AM EST The following approved medication requests have been transmitted electronically. Requested Prescriptions Signed Prescriptions Disp Refills benzonatate (TESSALON PERLE) 100 mg capsule 60 capsule 0 Sig: Take 2 capsules by mouth three times daily as needed for cough for up to 10 days. Authorizing Provider: RUTH PEREZ APRN.CNP * Telephone Encounter - Gt Joseph LPN - 08/27/2022 8:08 AM EST Patient complains of a dry hacking cough for about 1 week. Worse at night while trying to sleep. Denies any fever, headache or chest tightness. Is requesting a refill of the tessalon capsules he was prescribed about 4 months ago. documented in this encounterHolzer Health System01-27-2023 Miscellaneous Notes* Telephone Encounter - Kellen Morejon Ma - 08/13/2022 8:47 AM EST Patient was notified Kellen Morejon Ma * Telephone Encounter - Ruth Perez APRN.CNP - 08/13/2022 7:02 AM EST Can you please call the patient and let him know that I reviewed his lab result. Uric acid is elevated. I would like to go ahead and start him on allopurinol and recheck labs in 4 weeks. Take allopurinol 100 mg once daily for 1 week and increase to 100 mg twice daily. I sent prescription to [facility]. Please let me know if he have any questions. Thank you. The following approved medication requests have been transmitted electronically. Requested Prescriptions Signed Prescriptions Disp Refills allopurinol (ZYLOPRIM) 100 mg tablet 60 tablet 5 Sig: Take 1 tablet by mouth twice daily. Authorizing Provider: RUTH PEREZ APRN.CNP documented in this encounterHolzer Health System01-19-2023 Instructions* Patient Instructions* Ruth Perez APRN.CNP - 08/05/2022 11:01 AM EST Get labs completed next week. Finish the steroids. 3. Follow up pending test results or sooner as needed. documented in this encounterHolzer Health System01-19-2023 History of Present illness Narrative* Ruth Perez APRN.CNP - 08/05/2022 11:00 AM EST This is a 76 year old male who presents today with: Patient presents with: Acute Visit: Gout right great toe HISTORY OF PRESENT ILLNESS: Shelton Fox is a 76 year old male. Patient presents with: Acute Visit: Gout right great toe Here in the office to follow-up from express care visit. Was seen for great right toe redness, swelling, tenderness. Diagnosed with gout. Given steroid. Questioning whether he can start allopurinol. This is the 2nd flare up since [place]. Steroids have helped with symptoms. Redness and tendernesshas improved. Refers that he was on allopurinol [...] Laterality Date ARTHROPLASTY TOTAL SHOULDER 06/2011 Dr. Ianotti. ARTHRP ACETBLR/PROX FEM PROSTC AGRFT/ALGRFT 04/2012 Dr. Wood> [facility]. ARTHRP KNE CONDYLE&PLATU MEDIAL&LAT COMPARTMENTS Right COLONOSCOPY [...] Current Outpatient Medications Medication Sig methylPREDNISolone (MEDROL, NOAH,) 4 mg Dose-Pack Take as directed pantoprazole [...] 100 mg by mouth once daily. omega 8-xej-uot-fish oil 500-100-1,000 mg cap Take 1 capsule [...] APRN.CNP This note was partially generated using [employer] voice recognition system. Note was reviewed for accuracy. There may be minor misspellings or grammar miscues with [employer] voice recognition. documented in this encounterHolzer Health System01-15-2023 Instructions* Patient Instructions* Royce Rivera APRN.CNP - 08/01/2022 10:01 AM [...] or other joint pains. documented in this encounterHolzer Health System01-15-2023 History of Present illness Narrative* Royce Rivera APRN.CNP - 08/01/2022 9:48 AM EST Images from the original note were not included. Subjective HPI Nontoxic-appearing male presents urgent care chief complaint right great toe pain. Duration of symptoms 1 day. Associated symptoms right great toe pain swelling or redness. States he believes he has gout. Has had gout in the past. This feels similar. Last flareup of gout about 3 weeks ago. Was seenin the ED. Diagnosed with gout of right ankle. Denies any trauma. No numbness no tingling. Denies any systemic symptoms. States overall feels well. Denies any fever body aches chills productive coughchest pain shortness of breath pleuritic pain hemoptysis [...] ACETBLR/PROX FEM PROSTC AGRFT/ALGRFT 04/2012 Dr. Wood> [facility] ARTHRP KNE CONDYLE&PLATU MEDIAL&LAT COMPARTMENTS Right [...] 100 mg by mouth once daily. omega 4-brm-vvj-fish oil 500-100-1,000 mg cap Take 1 capsule [...] of care. This note was generated using [employer] software. It may contain errors in wording, punctuation, or spelling. Royce Rivera APRN.LIZET documented in this encounterHolzer Health System01-12-2023 Instructions* Patient Instructions* Ruth Perez APRN.CNP - 07/29/2022 10:34 AM EST Stop omeprazole, start Protnix 20 mg ,30 minutes prior to breakfast. Recommend eating smaller meals, watch acidic and fatty foods in the diet. Do not eat close to bedtime. If symptoms do not improve recommend follow up with general surgery for possible repeat upper scopeif needed. Follow up 1 month if needed. May add on Pepcid 20 mg if needed documented in this encounterHolzer Health System01-12-2023 History of Present illness Narrative* Ruth Perez APRN.GANG HEMSTITCHING MACHINE OPERATOR - 07/29/2022 10:20 AM EST This is a 76 year old male who presents today with: Patient presents with: Acute Visit: question about throat, and coughing HISTORY OF PRESENT ILLNESS: Shelton Fox is a 76 year old male. Patient [...] ACETBLR/PROX FEM PROSTC AGRFT/ALGRFT 04/2012 Dr. Wood> [facility] ARTHRP KNE CONDYLE&PLATU MEDIAL&LAT COMPARTMENTS Right [...] 100 mg by mouth once daily. omega 5-ukm-msh-fish oil 500-100-1,000 mg cap Take 1 capsule [...] discussed and patient voices understanding. Ruth Perez APRN.GANG HEMSTITCHING MACHINE OPERATOR This note was partially generated using [employer] recognition system. Note was reviewed for accuracy. There may be minor misspellings or grammar miscues with [employer] voice recognition. documented in this encounterHolzer Health System01-06-2023 History of Present illness Narrative* Elena Hennessy RDMS - 07/23/2022 3:15 PM EST Radiology Service Progress Note PATIENT NAME: Shelton Fox DATE OF SERVICE: July 23, 2022 TIME: 3:22 PM PATIENT IDENTITY VERIFICATION COMPLETED USING TWO (2) IDENTIFIERS: Name and Date of confirmedby patient verbally. FALL SCREENING: Has the patient had 2 falls in the last year or 1 fall with injury or currently using an Ambulatory Assistive Device (Walker, Cane, Wheelchair, Crutches, etc.)? No PATIENT GENDER DATA: Male PATIENT RELEVANT IMPLANT DATA REVIEWED: Not Applicable RADIOLOGY DEPARTMENT: Ultrasound PERIPHERAL IV DATA: Not applicable SIGNED BY: Elena Hennessy RDMS [facility] July 23, 2022 3:22 PM documented in this [facility]01-04-2023 Instructions* Patient Instructions* Ruth Perez APRN.CNP - 07/21/2022 8:37 AM EST Get labs completed. Schedule appointment for ultrasound. Recommend follow up with Dr. Wolff Follow up pending test results or sooner as needed. Increasing burping may add on Pepcid 20 mg as needed. documented in this [facility]01-04-2023 History of Present illness Narrative* Ruth Perez APRN.CNP - 07/21/2022 8:20 AM EST This is a 76 year old male who presents today with: Patient presents with: Acute Visit: dizziness HISTORY OF PRESENT ILLNESS: Shelton Fox is a 76 year old male. Patient presents with: Acute Visit: dizziness Here in the office for dizziness. Dizziness started several days ago, lasting 10 seconds. Symptoms occur randomly. Improves with rest. Has not had dizziness since last Tuesday. Seems to have resolved.No LOC. Following with Dr. Wolff, Vascular Medicine, has been monitoring carotid arteries. Had ultrasound in January showing carotid stenosis. Has noticed some tenderness with swallowing. History of Gerd. Noticed for the past couple weeks with swallowing vitamin. No difficulty swallowing water or food. Denies any increase heartburn but having increased belching. Has tried Omeprazole 20 mg twice daily but did not tolerate, currently takingonce daily. No abdominal pain, N/V/D. PAST MEDICAL [...] ACETBLR/PROX FEM PROSTC AGRFT/ALGRFT 04/2012 Dr. Wood> [facility]. ARTHRP KNE CONDYLE&PLATU MEDIAL&LAT COMPARTMENTS Right COLONOSCOPY [...] 100 mg by mouth once daily. omega 4-jcy-zdl-fish oil 500-100-1,000 mg cap Take 1 capsule [...] APRN.LIZET This note was partially generated using [employer] voice recognition system. Note was reviewed for accuracy. There may be minor misspellings or grammar miscues with [employer] voice recognition. documented in this encounterHolzer Health System12-30-2022 Miscellaneous Notes* Telephone Encounter - Felicia Olguin RN - 07/16/2022 4:48 PM EST Reason for Call: intermittent dizziness Outcome: Pt advised to be evaluated per a physician within 24 hrs. Pt and his agree. Pt.'s states pt will go to the [facility] tomorrow if no appt is available.Express care hours for today and tomorrow given. I forwarded call to the appointment center to schedule appt. Reason for Disposition Taking a medicine that could cause dizziness (e.g., blood pressure medications, diuretics) Answer Assessment - Initial Assessment Questions 1. DESCRIPTION: pt states he has intermittent dizziness that lasts about 10 seconds at a time whichbegan a few days ago 2. LIGHTHEADED: Pt [...] swallowing pills earlier today, but some pills arelarge. Pt drinks fluids normally, voids normally Protocols used: Dizziness - [id number] Pt reports recent dx of gout or cellulitis per his ankle which has improved and appears better. documented in this encounterHolzer Health System10-12-2022 Instructions* Patient Instructions* Ruth Perez APRN.CNP - 04/28/2022 11:17 AM EDT Continue to take all medication as prescribed. Get fasting labs completed prior to next appointment. No food 8-10 hours, may have black coffee andwater. Keep scheduled appointment with specialist. Follow up in 6 months or sooner as needed. documented in this encounterHolzer Health System10-12-2022 History of Present illness Narrative* Ruth Perez APRN.CNP - 04/28/2022 11:00 AM EDT This is a 76 year old male who presents today with: Patient presents with: Follow Up Immunizations: Flu vaccination HISTORY OF PRESENT ILLNESS: Shelton Fox is a 76 year old male. Patient [...] ACETBLR/PROX FEM PROSTC AGRFT/ALGRFT 04/2012 Dr. Wood> [facility]. ARTHRP KNE CONDYLE&PLATU MEDIAL&LAT COMPARTMENTS Right COLONOSCOPY [...] 100 mg by mouth once daily. omega 4-vbf-spw-fish oil 500-100-1,000 mg cap Take 1 capsule [...] APRN.LIZET This note was partially generated using [employer] voice recognition system. Note was reviewed for accuracy. There may be minor misspellings or grammar miscues with [employer] voice recognition. documented in this encounterHolzer Health System10-05-2022 Miscellaneous Notes* Telephone Encounter - Юлия Enriquez MA - 04/21/2022 2:14 PM EDT The following approved medication requests have been transmitted electronically. Requested Prescriptions Signed Prescriptions Disp Refills omeprazole (PRILOSEC) 20 mg capsule 90 capsule 3 Sig: TAKE 1 CAPSULE BY MOUTH EVERY DAY Authorizing Provider: FEDERICO VIGIL MA * Telephone Encounter - Federico Vigil MD - 04/21/2022 2:13 PM EDT OK to refill as ordered Federico Vigil MD * Telephone Encounter - Evon Ross RN - 04/21/2022 1:40 PM EDT Patient asking if pcp will refill omeprazole, since GI Associate Professor Of Communication is no longer here? Pended. Last ov in pcp office- 01-15-22. Next appt: 04-28-22. Reports he has 2 pills left. documented in this encounterHolzer Health System10-05-2022 Miscellaneous Notes* Telephone Encounter - Gt Joseph LPN - 04/21/2022 10:16 AM EDT PATIENT NOTIFIED OF SAME. * Telephone Encounter - Ruth Perez APRN.CNP - 04/21/2022 10:02 AM EDT Can you please call the patient and let him know that he does not have to have labs completed at this time, looking in his chart he had labs completed in January. Please let me know if he has any questions. Thank you. Ruth Perez APRN.GANG HEMSTITCHING MACHINE OPERATOR * Telephone Encounter - Evon Ross RN - 04/21/2022 8:51 AM EDT Patient scheduled his 6 mth f/u with Associate Professor Of Communication on 04-28. Asking if you want him to do lab work? Reports hetakes cholesterol and BP medication. Please advise patient. documented in this encounterHolzer Health System10-04-2022 History of Present illness Narrative* Karina Marlyn - 04/20/2022 6:31 PM EDT FOLLOW UP PODIATRIC OFFICE VISIT Chief Complaint: This 76 year old who presents for follow up:left foot pain Patient presents to clinic for follow-up left foot pain. Patient has pain to the lateral aspect of left 5th metatarsal. He had similar pain in the left footlast July and he had this treated with [...] 5.5 4.3 - 5.6 % Final Comment: [place] [employer] guidelines indicate that patients with [...] 100 mg by mouth once daily. omega 4-iaa-zfm-fish oil 500-100-1,000 mg cap Take 1 capsule [...] ACETBLR/PROX FEM PROSTC AGRFT/ALGRFT 04/2012 Dr. Wood> [facility]. ARTHRP KNE CONDYLE&PLATU MEDIAL&LAT COMPARTMENTS Right COLONOSCOPY [...] and this helped. I informed him that long chain quiller tender management with injections would not be recommended [...] and cc of dexamethazone Karina Cline DPM * Rosemary Desouza RN - 04/20/2022 3:33 PM EDT AMB ROOMING INTAKE FLOWSHEET DATA Risk Screening Do you have concerns about personal safety or safety in the home?: No Pain Pain Level: 1 Pain Location: Foot-Left Description: Sore Duration Amount of Time: 2 Duration Units: Weeks Frequency: Intermittent Intervention/Comfort measure: Reposition, Relaxation Patient presents with: Left Foot - Follow Up, Naomy Patient states he had a cortisone injection a year ago and pain came back about 2 weeks ago while on vacation. Requesting subsequent injection. documented in this encounterHolzer Health System10-04-2022 Instructions* Patient Instructions* Karina Cline - 04/20/2022 4:05 PM EDT STEROID INJECTION You have been injected with a corticosteroid and local anesthesia today. This should provide reliefof symptoms for the next 8 hours or [...] joint infection may occur. Joint infection is aconcern if you experience any of the following: [...] injections of steroids can also damage joint cartilage.For these reasons, there are limits to how many times and how frequently corticosteroid injections can be used in the same area. If anything seems unusual or out of the ordinary please contact our office as soon as possible for further instruction. documented in this encounterHolzer Health System10-04-2022 History of Present illness Narrative* RT Eunice(R) - 04/20/2022 3:20 PM EDT Radiology Service Progress Note PATIENT NAME: Shelton Fox DATE OF SERVICE: April 20, 2022 TIME: 3:18 PM PATIENT IDENTITY VERIFICATION COMPLETED USING TWO (2) IDENTIFIERS: Name and Date of confirmedby patient verbally. FALL SCREENING: Has the patient had 2 falls in the last year or 1 fall with injury or currently using an Ambulatory Assistive Device (Walker, Cane, Wheelchair, Crutches, etc.)? No PATIENT GENDER DATA: Male PATIENT RELEVANT IMPLANT DATA REVIEWED: Not Applicable RADIOLOGY DEPARTMENT: General X-ray: Exam(s) Completed: Lower Extremity X- Ray(s): Foot, Left and Wt. Bearing PERIPHERAL IV DATA: Not applicable SIGNED BY: RT Eunice(R) April 20, 2022 3:18 PM documented in this encounterHolzer Health System09-29-2022 Instructions* Patient Instructions* Elina Darnell - 04/15/2022 12:12 PM EDT [...] Elina Darnell APRN Student documented in this encounterHolzer Health System09-29-2022 History of Present illness Narrative* Kinga Pepper APRN.GANG HEMSTITCHING MACHINE OPERATOR - 04/15/2022 12:04 PM EDT Subjective Cough Associated symptoms include wheezing. Pertinent negatives include no chills, no ear pain, no headaches, no sore throat, no myalgias, no shortness of breath and no eye redness. Shelton Fox is a 76 year old male who [...] symptoms. Has tried mucinex and robitussin at homewithout relief. Pt reports taking multiple at home [...] ACETBLR/PROX FEM PROSTC AGRFT/ALGRFT 04/2012 Dr. Wood> [facility]. ARTHRP KNE CONDYLE&PLATU MEDIAL&LAT COMPARTMENTS Right COLONOSCOPY [...] 100 mg by mouth once daily. omega 7-lix-ssg-fish oil 500-100-1,000 mg cap Take 1 capsule [...] TABLET Elina Darnell APRN Student TEACHING PROVIDER (Physician/PA/CUSTOMER SALES CONSULTANT) NOTE OF PERSONAL INVOLVEMENT IN CARE: I have personally seen and examined the patient and performed the medical decision-making components. I have reviewed the Advanced Practice Registered Nurse (CUSTOMER SALES CONSULTANT) Student's documentation and verified the findings in the note as written. Any additions or changes are noted in bold/italics. Signature: Kinga Pepper Date: 04/15/2022 Time: 12:59 PM documented in this encounterHolzer Health System09-29-2022 History of Present illness Narrative* Arun Lopez RT(R) - 04/15/2022 12:00 PM EDT Radiology Service Progress Note PATIENT NAME: Shelton Fox DATE OF SERVICE: April 15, 2022 TIME: 12:04 PM PATIENT IDENTITY VERIFICATION COMPLETED USING TWO (2) IDENTIFIERS: Name and Date of confirmedby patient verbally. FALL SCREENING: Has the patient had 2 falls in the last year or 1 fall with injury or currently using an Ambulatory Assistive Device (Walker, Cane, Wheelchair, Crutches, etc.)? No PATIENT GENDER DATA: Male PATIENT RELEVANT IMPLANT DATA REVIEWED: Not Applicable RADIOLOGY DEPARTMENT: General X-ray: Exam(s) Completed: Chest X-Ray PERIPHERAL IV DATA: Not applicable SIGNED BY: RT Eunice(R) April 15, 2022 12:04 PM documented in this encounterHolzer Health System08-22-2022 Miscellaneous Notes* Telephone Encounter - Federico Vigil MD - 03/08/2022 11:17 AM EDT OK to refill as ordered Federico Vigil MD * Telephone Encounter - Gt Joseph LPN - 03/08/2022 9:48 AM EDT Last office visit: 01/15/22 Last labs: 10/06/21 Patient phones requesting refills as follows: Requested Prescriptions Pending Prescriptions Disp Refills simvastatin (ZOCOR) 20 mg tablet 90 tablet 3 Sig: Take 1 tablet by mouth once daily. Please review and advise. Gt Joseph LPN documented in this encounterHolzer Health System08-18-2022 History of Present illness Narrative* Phi Caba MD - 03/04/2022 9:58 AM EDT Shelton Fox is a 76 year old male presents for yearly evaluation of carotid disease. He is a prior W pt that was last seen 04/30/21 when [...] 50-99% stenosis. L CCA 50-99% stenosos, L ODY76-00% stenosis, L SCA 50-99% stenosis. And no [...] symptoms develop and that delay could result instroke. We had an extensive discussion about carotid [...] ACETBLR/PROX FEM PROSTC AGRFT/ALGRFT 04/2012 Dr. Wood> [facility] ARTHRP KNE CONDYLE&PLATU MEDIAL&LAT COMPARTMENTS Right [...] 100 mg by mouth once daily. omega 1-nyz-kha-fish oil 500-100-1,000 mg cap Take 1 capsule [...] carotid artery disease are discussed with specific regardto his problem. Different alternatives including medical management [...] claudication symptoms, will not repeat his pvr. Phi Caba MD I spent 30 minutes in the visit, with more than 50% of the total [id number]-vvfo time of the visit in counseling / coordination of care. documented in this encounterHolzer Health System08-15-2022 Miscellaneous Notes* Telephone Encounter - Yasmeen Oliveros Ma - 03/01/2022 4:58 PM EDT Pt called and notified Rx ready for cotton picker at [facility]. Will come tomorrow to get this. Yasmeen Oliveros Ma * Telephone Encounter - Federico Vigil MD - 03/01/2022 2:59 PM EDT OK to refill as ordered Federico Vigil MD * Telephone Encounter - Gloria Villanueva MA - 03/01/2022 2:46 PM EDT Patient has been identified by name and date of : Yes Requested Prescriptions Pending Prescriptions Disp Refills sildenafil (VIAGRA) 100 mg tablet 30 tablet 5 Sig: Take 1/2 to 1 tablet by mouth 1 hour prior to anticipated intercourse. RX INSTRUCTIONS: Print and leave at the medical records. Call patient when complete. Gloria Villanueva MA Patient requested printed prescription. Xu: 09/2021 No appointment scheduled. It appears it needs rescheduled. Last refill: 07/2021 * Telephone Encounter - [facility] - 03/01/2022 2:32 PM EDT Patient is requesting to pick-up this RX [...] WOULD LIKE TO PICK-UP THIS RX AT DOCUMENTATION WRITER, PLEASE NOTIFY WHEN READY AT [phone] [facility] documented in this encounterHolzer Health System08-15-2022 Miscellaneous Notes* Telephone Encounter - Tiarra Somers - 03/01/2022 2:39 PM EDT LM for patient to see if we can move his appointment up to 10am with Dr. Caba on for brianna. Told him to call me to see if that works. documented in this encounterHolzer Health System07-05-2022 Miscellaneous Notes* Telephone Encounter - Janneth Burkett Ma - 01/19/2022 1:52 PM EDT Pt notified of results via moziyhart. Janneth Burkett Ma * Telephone Encounter - Ruth Perez APRN.GANG HEMSTITCHING MACHINE OPERATOR - 01/19/2022 1:47 PM EDT Can please call the patient and let [...] has any questions. Thank you. Ruth Perez APRN.CNP documented in this encounterHolzer Health System07-01-2022 Instructions* Patient Instructions* Ruth Perez APRN.CNP - 01/15/2022 9:46 AM EDT 1.) Get labs completed. 2.) Increase water intake to 8-10 glasses per day. 3.) Recommend trying a B complex vitamin 4.) Continue to stretch the legs. 5.) schedule follow up with vascular, Dr. Wolff. 6.) Follow up pending test results. documented in this encounterHolzer Health System07-01-2022 History of Present illness Narrative* Ruth Perez APRN.CNP - 01/15/2022 9:40 AM EDT This is a 76 year old male who presents today with: Patient presents with: Acute Visit: cramping in calves HISTORY OF PRESENT ILLNESS: Shelton Fox is a 76 year old male. Patient [...] per week. Has been taking a statin senior living without any problems. Does take a potassium [...] ACETBLR/PROX FEM PROSTC AGRFT/ALGRFT 04/2012 Dr. Wood> [facility]. ARTHRP KNE CONDYLE&PLATU MEDIAL&LAT COMPARTMENTS Right COLONOSCOPY [...] 100 mg by mouth once daily. omega 5-zzk-ays-fish oil 500-100-1,000 mg cap Take 1 capsule [...] APRN.CNP This note was partially generated using [employer] voice recognition system. Note was reviewed for accuracy. There may be minor misspellings or grammar miscues with [employer] voice recognition. documented in this encounterHolzer Health System05-10-2022 Instructions* Patient Instructions* Karina Cline - 11/24/2021 4:16 PM EDT STEROID INJECTION You have been injected with a corticosteroid and local anesthesia today. This should provide reliefof symptoms for the next 8 hours or [...] joint infection may occur. Joint infection is aconcern if you experience any of the following: [...] injections of steroids can also damage joint cartilage.For these reasons, there are limits to how many times and how frequently corticosteroid injections can be used in the same area. If anything seems unusual or out of the ordinary please contact our office as soon as possible for further instruction. documented in this encounterHolzer Health System05-10-2022 History of Present illness Narrative* Karina Cline - 11/24/2021 4:04 PM EDT Images from the original note were not included. FOLLOW UP PODIATRIC OFFICE VISIT Chief Complaint: This 76 year old who presents for follow up:pain in right 5th toe Patient presents to clinic for evaluation of right foot. Patient complains of pain to the right 5thtoe. Patient states he gets pain in the [...] 5.5 4.3 - 5.6 % Final Comment: [place] [employer] guidelines indicate that patients with [...] 100 mg by mouth once daily. omega 2-dds-fmj-fish oil 500-100-1,000 mg cap Take 1 capsule by mouth once daily. multivitamins ORAL Liqd TAKES 1 OUNCE DAILY No current facility-administered medications for this visit. ALLERGIES Allergen Reactions Indocin [Indomethac* Diarrhea Mobic [Meloxicam] Diarrhea PAST SURGICAL HISTORY Procedure Laterality Date ARTHROPLASTY TOTAL SHOULDER 06/2011 Dr. Benitez. ARTHRP ACETBLR/PROX FEM PROSTC AGRFT/ALGRFT 04/2012 Dr. Wood> [facility] ARTHRP KNE CONDYLE&PLATU MEDIAL&LAT COMPARTMENTS Right [...] to pain, swelling, bleeding, slow wound healing, recurrentpain. Patient elects to proceed with injection. Patient [...] dexamethazone Karina Cline DPM documented in this encounterHolzer Health System05-10-2022 History of Present illness Narrative* RT Eunice(R) - 11/24/2021 2:40 PM EDT Radiology Service Progress Note PATIENT NAME: Shelton Fox DATE OF SERVICE: November 24, 2021 TIME: 2:30 PM PATIENT IDENTITY VERIFICATION COMPLETED USING TWO (2) IDENTIFIERS: Name and Date of confirmedby patient verbally. FALL SCREENING: Has the patient had 2 falls in the last year or 1 fall with injury or currently using an Ambulatory Assistive Device (Walker, Cane, Wheelchair, Crutches, etc.)? No PATIENT GENDER DATA: Male PATIENT RELEVANT IMPLANT DATA REVIEWED: Not Applicable RADIOLOGY DEPARTMENT: General X-ray: Exam(s) Completed: Lower Extremity X- Ray(s): Foot, Right and Wt. Bearing PERIPHERAL IV DATA: Not applicable SIGNED BY: RT Eunice(R) November 24, 2021 2:30 PM documented in this encounterHolzer Health System03-31-2022 Miscellaneous Notes* Telephone Encounter - Gt Joseph LPN - 10/15/2021 10:08 AM EDT Insurance will only cover Quantity Limit: 1 Quantity per 1 Day Pharmacy calls in requesting the following refill(s): Pending Prescriptions Disp Refills OMEPRAZOLE 20 MG CAPSULE,DELAYED RELEASE 90 capsule 1 Sig: TAKE 1 CAPSULE BY MOUTH EVERY DAY NUHA: Yes documented in this encounterHolzer Health System01-12-2021 History of Present illness Narrative* Arun LopezRt), Yomi - 07/29/2020 2:50 PM EST Radiology Service Progress Note PATIENT NAME: Shelton Fox DATE OF SERVICE: July 29, 2020 TIME: 2:51 PM PATIENT IDENTITY VERIFICATION COMPLETED USING TWO (2) IDENTIFIERS: Name and Date of confirmedby patient verbally. FALL SCREENING: Has the patient had 2 falls in the last year or 1 fall with injury or currently using an Ambulatory Assistive Device (Walker, Cane, Wheelchair, Crutches, etc.)? 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 Pain in limb 10/09/2007 10/30/2018 Disturbance of skin sensation 10/09/2007 documented as of this encounter (statuses as of 01/18/2023) [facility] of [facility] Narrative* Problem Noted Date Diagnosed Date Resolved Date 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 3 Pain in limb 10/09/2007 10/30/2018 Disturbance of skin sensation 10/09/2007 10/30/2018 documented as of this encounter (statuses as of 01/25/2023) [facility] Narrative* Problem Noted Date Diagnosed Date Resolved Date 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 3 Pain in limb 10/09/2007 10/30/2018 Disturbance of skin sensation 10/09/2007 10/30/2018 documented as of this encounter (statuses as of 02/21/2023) [facility] Narrative* Problem Noted Date Diagnosed Date Resolved Date 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 3 Pain in limb 10/09/2007 10/30/2018 Disturbance of skin sensation 10/09/2007 10/30/2018 documented as of this encounter (statuses as of 03/18/2023) [address]07-2011 History of Past illness Narrative* Problem Noted Date Diagnosed Date Resolved Date 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 3 Pain in limb 10/09/2007 10/30/2018 Disturbance of skin sensation 10/09/2007 10/30/2018 documented as of this encounter (statuses as of 03/18/2023) [facility] Narrative* Problem Noted Date Diagnosed Date Resolved Date 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 3 Pain in limb 10/09/2007 10/30/2018 Disturbance of skin sensation 10/09/2007 10/30/2018 documented as of this encounter (statuses as of 03/30/2023) [facility] Narrative* Problem Noted Date Diagnosed Date Resolved Date 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 3 Pain in limb 10/09/2007 10/30/2018 Disturbance of skin sensation 10/09/2007 10/30/2018 documented as of this encounter (statuses as of 03/30/2023) [facility] Narrative* Problem Noted Date Diagnosed Date Resolved Date 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 3 Pain in limb 10/09/2007 10/30/2018 Disturbance of skin sensation 10/09/2007 10/30/2018 documented as of this encounter (statuses as of 03/30/2023) [facility] Narrative* Problem Noted Date Diagnosed Date Resolved Date 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 3 Pain in limb 10/09/2007 10/30/2018 Disturbance of skin sensation 10/09/2007 10/30/2018 documented as of this encounter (statuses as of 03/30/2023) [facility] Narrative* Problem Noted Date Diagnosed Date Resolved Date 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 3 Pain in limb 10/09/2007 10/30/2018 Disturbance of skin sensation 10/09/2007 10/30/2018 documented as of this encounter (statuses as of 04/17/2023) [facility] Narrative* Problem Noted Date Diagnosed Date Resolved Date 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 3 Pain in limb 10/09/2007 10/30/2018 Disturbance of skin sensation 10/09/2007 10/30/2018 documented as of this encounter (statuses as of 04/23/2023) [facility] Narrative* Problem Noted Date Diagnosed Date Resolved Date 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 3 Pain in limb 10/09/2007 10/30/2018 Disturbance of skin sensation 10/09/2007 10/30/2018 documented as of this encounter (statuses as of 05/02/2023) [facility] Narrative* Problem Noted Date Diagnosed Date Resolved Date 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 3 Pain in limb 10/09/2007 10/30/2018 Disturbance of skin sensation 10/09/2007 10/30/2018 documented as of this encounter (statuses as of 05/02/2023) [facility] Narrative* Problem Noted Date Diagnosed Date Resolved Date 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 3 Pain in limb 10/09/2007 10/30/2018 Disturbance of skin sensation 10/09/2007 10/30/2018 documented as of this encounter (statuses as of 05/10/2023) [facility] Narrative* Problem Noted Date Diagnosed Date Resolved Date 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 3 Pain in limb 10/09/2007 10/30/2018 Disturbance of skin sensation 10/09/2007 10/30/2018 documented as of this encounter (statuses as of 05/10/2023) [facility] Narrative* Problem Noted Date Diagnosed Date Resolved Date 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 3 Pain in limb 10/09/2007 10/30/2018 Disturbance of skin sensation 10/09/2007 10/30/2018 documented as of this encounter (statuses as of 05/22/2023) [facility] Narrative* Problem Noted Date Diagnosed Date Resolved Date 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 3 Pain in limb 10/09/2007 10/30/2018 Disturbance of skin sensation 10/09/2007 10/30/2018 documented as of this encounter (statuses as of 05/22/2023) [facility] Narrative* Problem Noted Date Diagnosed Date Resolved Date 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 3 Pain in limb 10/09/2007 10/30/2018 Disturbance of skin sensation 10/09/2007 10/30/2018 documented as of this encounter (statuses as of 05/22/2023) [facility] Narrative* Problem Noted Date Diagnosed Date Resolved Date 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 3 Pain in limb 10/09/2007 10/30/2018 Disturbance of skin sensation 10/09/2007 10/30/2018 documented as of this encounter (statuses as of 05/24/2023) [address]07-2011 History of Past illness Narrative* Problem Noted Date Diagnosed Date Resolved Date 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 3 Pain in limb 10/09/2007 10/30/2018 Disturbance of skin sensation 10/09/2007 10/30/2018 documented as of this encounter (statuses as of 05/25/2023) [facility] Narrative* Problem Noted Date Diagnosed Date Resolved Date 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 3 Pain in limb 10/09/2007 10/30/2018 Disturbance of skin sensation 10/09/2007 10/30/2018 documented as of this encounter (statuses as of 05/26/2023) [facility] Narrative* Problem Noted Date Diagnosed Date Resolved Date 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 3 Pain in limb 10/09/2007 10/30/2018 Disturbance of skin sensation 10/09/2007 10/30/2018 documented as of this encounter (statuses as of 05/26/2023) [address]07-2011 History of Past illness Narrative* Problem Noted Date Diagnosed Date Resolved Date 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 3 Pain in limb 10/09/2007 10/30/2018 Disturbance of skin sensation 10/09/2007 10/30/2018 documented as of this encounter (statuses as of 06/07/2023) [address]07-2011 History of Past illness Narrative* Problem Noted Date Diagnosed Date Resolved Date 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 3 Pain in limb 10/09/2007 10/30/2018 Disturbance of skin sensation 10/09/2007 10/30/2018 documented as of this encounter (statuses as of 06/14/2023) [facility] Narrative* Problem Noted Date Diagnosed Date Resolved Date 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 3 Pain in limb 10/09/2007 10/30/2018 Disturbance of skin sensation 10/09/2007 10/30/2018 documented as of this encounter (statuses as of 06/23/2023) [facility] Narrative* Problem Noted Date Diagnosed Date Resolved Date 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 3 Pain in limb 10/09/2007 10/30/2018 Disturbance of skin sensation 10/09/2007 10/30/2018 documented as of this encounter (statuses as of 08/19/2023) [facility] Narrative* Problem Noted Date Diagnosed Date Resolved Date 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 3 Pain in limb 10/09/2007 10/30/2018 Disturbance of skin sensation 10/09/2007 10/30/2018 documented as of this encounter (statuses as of 08/23/2023) [facility] Narrative* Problem Noted Date Diagnosed Date Resolved Date 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 3 Pain in limb 10/09/2007 10/30/2018 Disturbance of skin sensation 10/09/2007 10/30/2018 documented as of this encounter (statuses as of 09/02/2023) [facility] Narrative* Problem Noted Date Diagnosed Date Resolved Date 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 3 Pain in limb 10/09/2007 10/30/2018 Disturbance of skin sensation 10/09/2007 10/30/2018 documented as of this encounter (statuses as of 09/02/2023) [address]07-2011 History of Past illness Narrative* Problem Noted Date Diagnosed Date Resolved Date 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 3 Pain in limb 10/09/2007 10/30/2018 Disturbance of skin sensation 10/09/2007 10/30/2018 documented as of this encounter (statuses as of 09/08/2023) [facility] Narrative* Problem Noted Date Diagnosed Date Resolved Date 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 3 Pain in limb 10/09/2007 10/30/2018 Disturbance of skin sensation 10/09/2007 10/30/2018 documented as of this encounter (statuses as of 09/14/2023) [facility] Narrative* Problem Noted Date Diagnosed Date Resolved Date 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 3 Pain in limb 10/09/2007 10/30/2018 Disturbance of skin sensation 10/09/2007 10/30/2018 documented as of this encounter (statuses as of 09/16/2023) [facility] Narrative* Problem Noted Date Diagnosed Date Resolved Date 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 3 Pain in limb 10/09/2007 10/30/2018 Disturbance of skin sensation 10/09/2007 10/30/2018 documented as of this encounter (statuses as of 09/19/2023) [facility] Narrative* Problem Noted Date Diagnosed Date Resolved Date 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 3 Pain in limb 10/09/2007 10/30/2018 Disturbance of skin sensation 10/09/2007 10/30/2018 documented as of this encounter (statuses as of 09/19/2023) [facility] Narrative* Problem Noted Date Diagnosed Date Resolved Date 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 3 Pain in limb 10/09/2007 10/30/2018 Disturbance of skin sensation 10/09/2007 10/30/2018 documented as of this encounter (statuses as of 10/25/2023) [facility] Narrative* Problem Noted Date Diagnosed Date Resolved Date 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 3 Pain in limb 10/09/2007 10/30/2018 Disturbance of skin sensation 10/09/2007 10/30/2018 documented as of this encounter (statuses as of 10/27/2023) [facility] Narrative* Problem Noted Date Diagnosed Date Resolved Date 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 3 Pain in limb 10/09/2007 10/30/2018 Disturbance of skin sensation 10/09/2007 10/30/2018 documented as of this encounter (statuses as of 10/28/2023) [facility] Narrative* Problem Noted Date Resolved Date Pain in limb 10/09/2007 10/30/2018 Disturbance of skin sensation 10/09/2007 documented as of this encounter (statuses as of 10/15/2021) [facility] Narrative* Problem Noted Date Resolved Date Pain in limb 10/09/2007 10/30/2018 Disturbance of skin sensation 10/09/2007 documented as of this encounter (statuses as of 10/15/2021) [facility] Narrative* Problem Noted Date Resolved Date Pain in limb 10/09/2007 10/30/2018 Disturbance of skin sensation 10/09/2007 documented as of this encounter (statuses as of 11/16/2021) [facility] Narrative* Problem Noted Date Resolved Date Pain in limb 10/09/2007 10/30/2018 Disturbance of skin sensation 10/09/2007 documented as of this encounter (statuses as of 11/25/2021) [facility] Narrative* Problem Noted Date Resolved Date Pain in limb 10/09/2007 10/30/2018 Disturbance of skin sensation 10/09/2007 documented as of this encounter (statuses as of 11/25/2021) [facility] Narrative* Problem Noted Date Resolved Date Pain in limb 10/09/2007 10/30/2018 Disturbance of skin sensation 10/09/2007 documented as of this encounter (statuses as of 01/15/2022) [address]24-2008 History of Past illness Narrative* Problem Noted Date Resolved Date Pain in limb 10/09/2007 10/30/2018 Disturbance of skin sensation 10/09/2007 documented as of this encounter (statuses as of 01/19/2022) [address]24-2008 History of Past illness Narrative* Problem Noted Date Resolved Date Pain in limb 10/09/2007 10/30/2018 Disturbance of skin sensation 10/09/2007 documented as of this encounter (statuses as of 03/01/2022) [address]24-2008 History of Past illness Narrative* Problem Noted Date Resolved Date Pain in limb 10/09/2007 10/30/2018 Disturbance of skin sensation 10/09/2007 documented as of this encounter (statuses as of 03/01/2022) [place] [id number] History of Past illness Narrative* Problem Noted Date Resolved Date Pain in limb 10/09/2007 10/30/2018 Disturbance of skin sensation 10/09/2007 documented as of this encounter (statuses as of 03/04/2022) [place] [id number] History of Past illness Narrative* Problem Noted Date Resolved Date Pain in limb 10/09/2007 10/30/2018 Disturbance of skin sensation 10/09/2007 documented as of this encounter (statuses as of 03/08/2022) [facility]arr[facility]* Problem Noted Date Resolved Date Pain in limb 10/09/2007 10/30/2018 Disturbance of skin sensation 10/09/2007 documented as of this encounter (statuses as of 04/12/2022) [address]24-2008 History of Past illness Narrative* Problem Noted Date Resolved Date Pain in limb 10/09/2007 10/30/2018 Disturbance of skin sensation 10/09/2007 documented as of this encounter (statuses as of 04/15/2022) [address]24-2008 History of Past illness Narrative* Problem Noted Date Resolved Date Pain in limb 10/09/2007 10/30/2018 Disturbance of skin sensation 10/09/2007 documented as of this encounter (statuses as of 04/16/2022) [facility]arrative* Problem Noted Date Resolved Date Pain in limb 10/09/2007 10/30/2018 Disturbance of skin sensation 10/09/2007 documented as of this encounter (statuses as of 04/21/2022) [address]24-2008 History of Past illness Narrative* Problem Noted Date Resolved Date Pain in limb 10/09/2007 10/30/2018 Disturbance of skin sensation 10/09/2007 documented as of this encounter (statuses as of 04/21/2022) [place] [id number] History of Past illness Narrative* Problem Noted Date Resolved Date Pain in limb 10/09/2007 10/30/2018 Disturbance of skin sensation 10/09/2007 documented as of this encounter (statuses as of 04/22/2022) [address]24-2008 History of Past illness Narrative* Problem Noted Date Resolved Date Pain in limb 10/09/2007 10/30/2018 Disturbance of skin sensation 10/09/2007 documented as of this encounter (statuses as of 04/28/2022) [place] [id number] History of Past illness Narrative* Problem Noted Date Resolved Date Pain in limb 10/09/2007 10/30/2018 Disturbance of skin sensation 10/09/2007 documented as of this encounter (statuses as of 07/22/2022) [address]24[address]2008 History of Past illness Narrative* Problem Noted Date Resolved Date Pain in limb 10/09/2007 10/30/2018 Disturbance of skin sensation 10/09/2007 documented as of this encounter (statuses as of 07/22/2022) [address]24[address]2008 History of Past illness Narrative* Problem Noted Date Resolved Date Pain in limb 10/09/2007 10/30/2018 Disturbance of skin sensation 10/09/2007 documented as of this encounter (statuses as of 07/29/2022) [address]24-2008 History of Past illness Narrative* Problem Noted Date Resolved Date Pain in limb 10/09/2007 10/30/2018 Disturbance of skin sensation 10/09/2007 documented as of this encounter (statuses as of 08/01/2022) [place] [id number] History of Past illness Narrative* Problem Noted Date Resolved Date Pain in limb 10/09/2007 10/30/2018 Disturbance of skin sensation 10/09/2007 documented as of this encounter (statuses as of 08/05/2022) [address]24-2008 History of Past illness Narrative* Problem Noted Date Resolved Date Pain in limb 10/09/2007 10/30/2018 Disturbance of skin sensation 10/09/2007 documented as of this encounter (statuses as of 08/13/2022) [place] [id number] History of Past illness Narrative* Problem Noted Date Resolved Date Pain in limb 10/09/2007 10/30/2018 Disturbance of skin sensation 10/09/2007 documented as of this encounter (statuses as of 08/27/2022) [address]24-2008 History of Past illness Narrative* Problem Noted Date Resolved Date Pain in limb 10/09/2007 10/30/2018 Disturbance of skin sensation 10/09/2007 documented as of this encounter (statuses as of 08/31/2022) [address]24-2008 History of Past illness Narrative* Problem Noted Date Resolved Date Pain in limb 10/09/2007 10/30/2018 Disturbance of skin sensation 10/09/2007 documented as of this encounter (statuses as of 09/01/2022) [address]24-2008 History of Past illness Narrative* Problem Noted Date Resolved Date Pain in limb 10/09/2007 10/30/2018 Disturbance of skin sensation 10/09/2007 documented as of this encounter (statuses as of 09/06/2022) [place] [id number] History of Past illness Narrative* Problem Noted Date Resolved Date Pain in limb 10/09/2007 10/30/2018 Disturbance of skin sensation 10/09/2007 documented as of this encounter (statuses as of 09/07/2022) [address]24-2008 History of Past illness Narrative* Problem Noted Date Resolved Date Pain in limb 10/09/2007 10/30/2018 Disturbance of skin sensation 10/09/2007 documented as of this encounter (statuses as of 09/14/2022) [place] [id number] History of Past illness Narrative* Problem Noted Date Resolved Date Pain in limb 10/09/2007 10/30/2018 Disturbance of skin sensation 10/09/2007 documented as of this encounter (statuses as of 09/17/2022) [address]24-2008 History of Past illness Narrative* Problem Noted Date Resolved Date Pain in limb 10/09/2007 10/30/2018 Disturbance of skin sensation 10/09/2007 documented as of this encounter (statuses as of 09/21/2022) [address]24-2008 History of Past illness Narrative* Problem Noted Date Resolved Date Pain in limb 10/09/2007 10/30/2018 Disturbance of skin sensation 10/09/2007 documented as of this encounter (statuses as of 09/27/2022) [address]24-2008 History of Past illness Narrative* Problem Noted Date Resolved Date Pain in limb 10/09/2007 10/30/2018 Disturbance of skin sensation 10/09/2007 documented as of this encounter (statuses as of 10/11/2022) [place] [id number] History of Past illness Narrative* Problem Noted Date Resolved Date Pain in limb 10/09/2007 10/30/2018 Disturbance of skin sensation 10/09/2007 documented as of this encounter (statuses as of 10/11/2022) [place] [id number] History of Past illness Narrative* Problem Noted Date Resolved Date Pain in limb 10/09/2007 10/30/2018 Disturbance of skin sensation 10/09/2007 documented as of this encounter (statuses as of 10/12/2022) [address]24-2008 History of Past illness Narrative* Problem Noted Date Resolved Date Pain in limb 10/09/2007 10/30/2018 Disturbance of skin sensation 10/09/2007 documented as of this encounter (statuses as of 10/18/2022) [address]24-2008 History of Past illness Narrative* Problem Noted Date Resolved Date Pain in limb 10/09/2007 10/30/2018 Disturbance of skin sensation 10/09/2007 documented as of this encounter (statuses as of 10/19/2022) [address]24-2008 History of Past illness Narrative* Problem Noted Date Resolved Date Pain in limb 10/09/2007 10/30/2018 Disturbance of skin sensation 10/09/2007 documented as of this encounter (statuses as of 10/19/2022) [address]24-2008 History of Past illness Narrative* Problem Noted Date Resolved Date Pain in limb 10/09/2007 10/30/2018 Disturbance of skin sensation 10/09/2007 documented as of this encounter (statuses as of 10/25/2022) [address]24-2008 History of Past illness Narrative* Problem Noted Date Resolved Date Pain in limb 10/09/2007 10/30/2018 Disturbance of skin sensation 10/09/2007 documented as of this encounter (statuses as of 10/28/2022) [address]24-2008 History of Past illness Narrative* Problem Noted Date Resolved Date Pain in limb 10/09/2007 10/30/2018 Disturbance of skin sensation 10/09/2007 documented as of this encounter (statuses as of 11/11/2022) [address]24-2008 History of Past illness Narrative* Problem Noted Date Resolved Date Pain in limb 10/09/2007 10/30/2018 Disturbance of skin sensation 10/09/2007 documented as of this encounter (statuses as of 11/11/2022) [address]24-2008 History of Past illness Narrative* Problem Noted Date Resolved Date Pain in limb 10/09/2007 10/30/2018 Disturbance of skin sensation 10/09/2007 documented as of this encounter (statuses as of 11/11/2022) [address]24-2008 History of Past illness Narrative* Problem Noted Date Resolved Date Pain in limb 10/09/2007 10/30/2018 Disturbance of skin sensation 10/09/2007 documented as of this encounter (statuses as of 11/11/2022) [facility]03-24-2008 History of Past illness Narrative* Problem Noted Date Resolved Date Pain in limb 10/09/2007 10/30/2018 Disturbance of skin sensation 10/09/2007 documented as of this encounter (statuses as of 11/29/2022) [facility]-24-2008 History of Past illness Narrative* Problem Noted Date Resolved Date Pain in limb 10/09/2007 10/30/2018 Disturbance of skin sensation 10/09/2007 documented as of this encounter (statuses as of 11/30/2022) [facility]-24-2008 History of Past illness Narrative* Problem Noted Date Resolved Date Pain in limb 10/09/2007 10/30/2018 Disturbance of skin sensation 10/09/2007 documented as of this encounter (statuses as of 12/30/2022) [facility] note* Diagnosis Pain- Primary [facility]ized pain [facility] Diagnosis Pain Generalized pain [facility] Diagnosis Bursitis of right foot- Primary Tailor's bunion of right foot [facility] Diagnosis Leg cramping- Primary Cramp of limb [facility] Diagnosis ED (erectile dysfunction) of organic origin Impotence of organic origin [facility] Diagnosis Carotid stenosis, asymptomatic, bilateral- Primary [facility] Mixed hyperlipidemia [facility] Diagnosis Acute cough- Primary Suspected COVID-19 virus infection BENIGN HYPERTENSION Essential hypertension, benign Lower resp. tract infection Other diseases of respiratory system, not elsewhere classified [facility] Pain in left foot- Primary Pain in limb [facility] Diagnosis Pain in left foot Pain in limb [facility] Diagnosis Tailor's bunion of left foot- Primary [facility] Diagnosis BENIGN HYPERTENSION- Primary Essential hypertension, benign Mixed hyperlipidemia PAD (peripheral artery disease) (HCC) Peripheral vascular disease, unspecified ED (erectile dysfunction) of organic origin Impotence of organic origin Gastroesophageal reflux disease, unspecified whether esophagitis present Need for influenza vaccination Need for prophylactic vaccination and inoculation against influenza documented in this encounter [facility] noteNo assessment information availableWSt. [facility] Work [facility]: [facility]* Diagnosis Dizziness- Primary Dizziness and giddiness Enlarged thyroid Goiter, unspecified documented in this encounter [facility] note* Diagnosis Pain with swallowing- Primary Dysphagia, unspecified GERD without esophagitis Esophageal reflux documented in this encounter [facility] note* Diagnosis Toe swelling- Primary Swelling of limb documented in this encounter [facility] note* Diagnosis History of gout- Primary Personal history of other endocrine, metabolic, and immunity disorders documented in this encounter [facility] note* Diagnosis Gout involving toe of right foot, unspecified cause, unspecified chronicity- Primary documented in this encounter [facility] note* Diagnosis Acute cough documented in this encounter [facility] note* Diagnosis Atrial fibrillation, unspecified type (HCC)- Primary SOB (shortness of breath) Shortness of breath Shortness of breath documented in this encounter [facility] note* Diagnosis Acute cough documented in this encounter [facility] note* Diagnosis Gout involving toe of right foot, unspecified cause, unspecified chronicity- Primary documented in this encounter [facility] note* Diagnosis Atrial fibrillation, unspecified type (HCC) documented in this encounter [facility] note* Diagnosis Pain- Primary Generalized pain Acute gout involving toe of left foot, unspecified cause documented in this encounter [facility] note* Diagnosis Onset Date Resolution Status Atrial fibrillation chronic Cardiomyopathy chronic Carotid stenosis, bilateral chronic Dyslipidemia chronic Erectile dysfunction chronic Essential (primary) hypertension [facility] Work Phone: Evaluation note* Diagnosis Acute gout involving toe of left foot, unspecified cause- Primary Pain in left foot Pain in limb documented in this encounter [facility] note* Diagnosis Acute gout involving toe of left foot, unspecified cause- Primary documented in this encounter [facility] note* Diagnosis Acute gout involving toe of left foot, unspecified cause- Primary Pain in left foot Pain in limb Tailor's bunion of left foot Atrial fibrillation, unspecified type (HCC)- Primary Gout involving toe of right foot, unspecified cause, unspecified chronicity GERD without esophagitis Esophageal reflux BENIGN HYPERTENSION Essential hypertension, benign Mixed hyperlipidemia [facility] Diagnosis Atrial fibrillation, unspecified type (HCC)- Primary BENIGN HYPERTENSION Essential hypertension, benign Mixed hyperlipidemia GERD without esophagitis Esophageal reflux Gout involving toe of right foot, unspecified cause, unspecified chronicity documented in this encounter [facility] note* Diagnosis Onset Date Resolution Status Atrial fibrillation chronic Cardiomyopathy chronic Carotid stenosis, bilateral chronic Dyslipidemia chronic Erectile dysfunction chronic Essential (primary) hypertension chronic Atrial fibrillation chronic CAD (coronary artery disease) chronic Cardiomyopathy chronic Carotid stenosis, bilateral chronic Dyslipidemia chronic Erectile dysfunction chronic Essential (primary) hypertension chronic Atrial fibrillation chronic CAD (coronary artery disease) chronic Cardiomyopathy chronic Carotid stenosis, bilateral chronic Dyslipidemia chronic Erectile dysfunction chronic Essential (primary) hypertension chronic Fatigue [facility] Work Phone: Evaluation note* Diagnosis PAF (paroxysmal atrial fibrillation) (HCC)- Primary Atrial fibrillation Atrial fibrillation, unspecified type (HCC) Cardiomyopathy, ischemic Other specified forms of chronic ischemic heart disease PAD (peripheral artery disease) (HCC) Peripheral vascular disease, unspecified Mixed hyperlipidemia Coronary artery disease involving [place] coronary artery of [place] heart without angina pectoris S/P drug eluting coronary stent placement Postsurgical percutaneous transluminal coronary angioplasty status documented in this encounter [facility] note* Diagnosis Persistent atrial fibrillation (HCC)- Primary Atrial fibrillation Dyspnea, unspecified type documented in this encounter [facility] note* Diagnosis BENIGN HYPERTENSION- Primary Essential hypertension, benign GERD without esophagitis Esophageal reflux Mixed hyperlipidemia PAD (peripheral artery disease) (HCC) Peripheral vascular disease, unspecified Atrial fibrillation, unspecified type (HCC) Cardiomyopathy, ischemic Other specified forms of chronic ischemic heart disease Ischemic cardiomyopathy Other specified forms of chronic ischemic heart disease documented in this encounter [facility] note* Diagnosis Paroxysmal atrial fibrillation (HCC)- Primary Atrial fibrillation Excessive daytime sleepiness 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 Long-term (current) use of anticoagulants At risk for stroke Other specified personal history presenting hazards to health documented in this encounter [facility] note* Diagnosis Persistent atrial fibrillation (HCC) Atrial fibrillation Dyspnea, unspecified type documented in this encounter [facility] note* Diagnosis Persistent atrial fibrillation (HCC) Atrial fibrillation Dyspnea, unspecified type documented in this encounter [facility] note* Diagnosis Rash- Primary Rash and other nonspecific skin eruption Acute gout involving toe of right foot, unspecified cause documented in this encounter [facility] note* Diagnosis Pain with swallowing- Primary Dysphagia, unspecified History of colonic polyps Personal history of colonic polyps Upper abdominal pain Abdominal pain, other specified site [facility] this [facility]* Diagnosis Paroxysmal atrial fibrillation (HCC)- Primary Atrial fibrillation Dizziness Dizziness and giddiness Tinnitus, unspecified laterality Bilateral impacted cerumen Impacted cerumen Tenderness of neck [facility] this [facility]* Diagnosis Acute idiopathic gout, unspecified site Pain in right foot Pain in limb documented in this encounter [facility] note* Diagnosis Enlarged thyroid Goiter, unspecified Tenderness of neck documented in this encounter [facility] note* Diagnosis Enlarged thyroid Goiter, unspecified [facility]* Diagnosis GERD without esophagitis- Primary Esophageal reflux documented in this encounter [facility] note* Diagnosis Dizziness Dizziness and giddiness Tinnitus, unspecified laterality documented in this encounter [facility] note* Diagnosis Other dysphagia- Primary Pain with swallowing Dysphagia, unspecified documented in this encounter [facility] note* Diagnosis Paroxysmal atrial fibrillation (HCC)- Primary Atrial fibrillation Cardiomyopathy, unspecified type (HCC) Coronary artery disease involving [place] coronary artery of [place] heart with angina pectoris (HCC) Mixed hyperlipidemia BENIGN HYPERTENSION Essential hypertension, benign Status post ablation of atrial flutter Other postprocedural status [facility] this [facility]* Diagnosis Onset Date Resolution Status Atrial fibrillation chronic CAD (coronary artery disease) chronic Cardiomyopathy chronic Carotid stenosis, bilateral chronic Dyslipidemia chronic Erectile dysfunction chronic Essential (primary) hypertension chronic Other cervical disc degenera tion, mid-cervical region, unspecified level acute [facility] Work Phone: Evaluation note* Diagnosis Anemia, unspecified type- Primary documented in this encounter [facility] note* Diagnosis Anemia, unspecified type- Primary Iron deficiency anemia, unspecified iron deficiency anemia type documented in this encounter [facility] note* Diagnosis Acute pain of left knee- Primary documented in this encounter [facility] note* Diagnosis Anemia, unspecified type- Primary Iron deficiency anemia, unspecified iron deficiency anemia type documented in this encounter [facility] note* Diagnosis Iron deficiency anemia, unspecified iron deficiency anemia type- Primary documented in this encounter [facility] note* Diagnosis Iron deficiency anemia, unspecified iron deficiency anemia type- Primary documented in this encounter [facility] note* Diagnosis Iron deficiency anemia, unspecified iron deficiency anemia type- Primary documented in this encounter [facility] note* Diagnosis Onset Date Resolution Status Other cervical disc degenera tion, mid-cervical region, unspecified level acute Left knee pain noneactive Anemia acute Atrial fibrillation chronic CAD (coronary artery disease) chronic Cardiomyopathy chronic Carotid stenosis, bilateral chronic Dyslipidemia chronic Essential (primary) hypertension [facility] Work Phone: Evaluation note* Diagnosis Iron deficiency anemia, unspecified iron deficiency anemia type- Primary documented in this encounter [facility] note* Diagnosis Anemia, unspecified type- Primary Iron deficiency anemia, unspecified iron deficiency anemia type documented in this encounter [facility] note* Diagnosis Iron deficiency anemia, unspecified iron deficiency anemia type- Primary Anemia, unspecified type documented in this encounter [facility] note* Diagnosis Onset Date Resolution Status Other cervical disc degenera tion, mid-cervical region, unspecified level acute Left knee pain noneactive Anemia acute Atrial fibrillation chronic CAD (coronary artery disease) chronic Cardiomyopathy chronic Carotid stenosis, bilateral chronic Dyslipidemia chronic Essential (primary) hypertension chronic Cervical radiculopathy [facility] Work Phone: Evaluation note* Diagnosis Vision changes- Primary Unspecified visual disturbance Amaurosis fugax Transient arterial occlusion of retina documented in this encounter [facility] note* Diagnosis Carotid stenosis, asymptomatic, bilateral- Primary Amaurosis fugax of right eye Transient arterial occlusion of retina Carotid stenosis, asymptomatic, bilateral Amaurosis fugax of right eye Transient arterial occlusion of retina documented in this encounter [facility] note* Diagnosis Carotid stenosis, asymptomatic, bilateral Amaurosis fugax of right eye Transient arterial occlusion of retina documented in this encounter [facility] note* Diagnosis Onset Date Resolution Status Left knee pain noneactive Anemia acute Atrial fibrillation chronic CAD (coronary artery disease) chronic Cardiomyopathy chronic Carotid stenosis, bilateral chronic Dyslipidemia chronic Essential (primary) hypertension chronic Cervical radiculopathy acute [facility] Work Phone: Evaluation note* Diagnosis Occlusion and stenosis of unspecified carotid artery Amaurosis fugax Transient arterial occlusion of retina [facility] this [facility]* Diagnosis Bilateral extracranial carotid artery stenosis- Primary Amaurosis fugax Transient arterial occlusion of retina Occlusion and stenosis of unspecified carotid artery Occlusion and stenosis of unspecified carotid artery Amaurosis fugax Transient arterial occlusion of retina [facility] this [facility]* Diagnosis Bilateral extracranial carotid artery stenosis- Primary Amaurosis fugax of right eye Transient arterial occlusion of retina documented [facility] this [facility]* Diagnosis Bilateral extracranial carotid artery stenosis- Primary Bilateral extracranial carotid artery stenosis documented [facility] this [facility]* Diagnosis Carotid stenosis, asymptomatic, bilateral- Primary Preop examination Preoperative examination, unspecified Paroxysmal atrial fibrillation (HCC) Atrial fibrillation Mixed hyperlipidemia Coronary artery disease involving [place] coronary artery of [place] heart with angina pectoris (HCC) Cardiomyopathy, unspecified type (HCC) BENIGN HYPERTENSION Essential hypertension, benign Gastroesophageal reflux disease, unspecified whether esophagitis present Iron deficiency anemia, unspecified iron deficiency anemia type Bilateral extracranial carotid artery stenosis * Assessment & Plan Note - Heidy Bernstein APRN.CNP - 12/19/2023 11:09 AM EDTAssociated Problem(s): Anemia Hemoglobin (g/dL) Date Value 10/26/2023 11.5 09/25/2020 13.2 Hematocrit (%) Date Value 10/26/2023 36.0 09/25/2020 41.0 WBC (k/uL) Date Value 10/26/2023 9.59 09/25/2020 8.09 CBC today in PAT * Assessment & Plan Note - Heidy Bernstein APRN.CNP - 12/19/2023 11:09 AM EDTAssociated Problem(s): Gastroesophageal reflux disease Controlled with pantoprazole, instructed to take morning of surgery * Assessment & Plan Note - Heidy Bernstein APRN.CNP - 12/19/2023 11:08 AM EDTAssociated Problem(s): BENIGN HYPERTENSION Controlled with carvedilol, instructed to take morning of surgery * Assessment & Plan Note - Heidy Bernstein APRN.CNP - 12/19/2023 11:08 AM EDTAssociated Problem(s): Cardiomyopathy, unspecified type (HCC) ECHO 03/29/2023 CONCLUSIONS: - Exam indication: Sustained atrial fibrillation - The left ventricle is normal [...] patient in sinus rhythm on todays exam. * Assessment & Plan Note - Heidy Bernstein APRN.CNP - 12/19/2023 11:07 AM EDTAssociated Problem(s): Coronary artery disease involving [place] coronary artery of [place] heart with angina pectoris (HCC) S/P PCI to OM Managed by Dr. Vernon, last OV 05/19/2024 On Carvedilol, statin and ASA * Assessment & Plan Note - Heidy Bernstein APRN.CNP - 12/19/2023 11:04 AM EDTAssociated Problem(s): Mixed hyperlipidemia Statin, continue as prescribed * Assessment & Plan Note - Heidy Bernstein APRN.CNP - 12/19/2023 11:03 AM EDTAssociated Problem(s): Paroxysmal atrial fibrillation (HCC) Ablation 12/2022 Rate controlled with carvedilol Pt taking Eliquis I instructed patient to get preop instructions from surgeon and safety physician. Managed by hector Camargo 06/22/2024 * Assessment & Plan Note - Heidy Bernstein APRN.CNP - 12/19/2023 11:00 AM EDTAssociated Problem(s): Preop examination Patient has the following medical conditions which may affect judy-operative course addressed in assessment and plan today. * Assessment & Plan Note - Heidy Bernstein APRN.CNP - 12/19/2023 11:00 AM EDTAssociated Problem(s): Carotid stenosis, asymptomatic, bilateral Surgery scheduled with Dr. Caba on 12/26/2023 documented in this encounter [facility] note* Diagnosis Mixed hyperlipidemia Bilateral extracranial carotid artery stenosis documented in this encounter [facility] note* Diagnosis Mixed hyperlipidemia Bilateral extracranial carotid artery stenosis documented in this encounter [facility] note* Diagnosis Paroxysmal atrial fibrillation (HCC)- Primary Atrial fibrillation Cardiomyopathy, unspecified type (HCC) Hyperlipidemia, unspecified hyperlipidemia type Primary hypertension Unspecified essential hypertension Status post ablation of atrial flutter Other postprocedural status Status post catheter ablation of atrial fibrillation documented [facility] Diagnosis Post-op pain- Primary Other acute postoperative pain documented in this encounter [facility] note* Diagnosis BENIGN HYPERTENSION- Primary Essential hypertension, benign Mixed hyperlipidemia Paroxysmal atrial fibrillation (HCC) Atrial fibrillation Cardiomyopathy, unspecified type (HCC) Coronary artery disease involving [place] coronary artery of [place] heart with angina pectoris (HCC) Atrial fibrillation, unspecified type (HCC) Gout involving toe of right foot, unspecified cause, unspecified chronicity GERD without esophagitis Esophageal reflux Anemia, unspecified type Inflammatory polyarthropathy (HCC) Unspecified inflammatory polyarthropathy Headache, unspecified headache type Ear pressure, right Elevated glucose Other abnormal glucose documented in this encounter [facility]* Diagnosis Amaurosis [place] of right eye- Primary Transient arterial occlusion of retina Bilateral extracranial carotid artery stenosis History of right-sided carotid endarterectomy documented [facility] this [facility]* Diagnosis S/P carotid endarterectomy- Primary Other postprocedural status Carotid stenosis, asymptomatic, bilateral documented in this encounter [facility]* Diagnosis Acute right-sided low back pain without sciatica- Primary [facility] Diagnosis Acute right-sided low back pain without sciatica documented in this encounter [facility] note* Diagnosis Pre-operative examination- Primary Preoperative examination, unspecified Atrial fibrillation, unspecified type (HCC) BENIGN HYPERTENSION Essential hypertension, benign Carotid stenosis, asymptomatic, bilateral Ischemic cardiomyopathy Other specified forms of chronic ischemic heart disease Mixed hyperlipidemia PAD (peripheral artery disease) (HCC) Peripheral vascular disease, unspecified Coronary artery disease involving [place] coronary artery of [place] heart with angina pectoris (HCC) Gout involving toe of right foot, unspecified cause, unspecified chronicity Inflammatory polyarthropathy (HCC) Unspecified inflammatory polyarthropathy History of arthritis Personal history of arthritis Former smoker Personal history of tobacco use, presenting hazards to health Anemia, unspecified type Carotid stenosis, asymptomatic, bilateral- Primary Preop examination Preoperative examination, unspecified Paroxysmal atrial fibrillation (HCC) Atrial fibrillation Mixed hyperlipidemia Coronary artery disease involving [place] coronary artery of [place] heart with angina pectoris (HCC) Cardiomyopathy, unspecified type (HCC) BENIGN HYPERTENSION Essential hypertension, benign Gastroesophageal reflux disease, unspecified whether esophagitis present Iron deficiency anemia, unspecified iron deficiency anemia type Acute right-sided low back pain without sciatica- Primary documented in this [facility]* Diagnosis Pre-operative examination- Primary Preoperative examination, unspecified Atrial fibrillation, unspecified type (HCC) BENIGN HYPERTENSION Essential hypertension, benign Carotid stenosis, asymptomatic, bilateral Ischemic cardiomyopathy Other specified forms of chronic ischemic heart disease Mixed hyperlipidemia PAD (peripheral artery disease) (HCC) Peripheral vascular disease, unspecified Coronary artery disease involving [place] coronary artery of [place] heart with angina pectoris (HCC) Gout involving toe of right foot, unspecified cause, unspecified chronicity Inflammatory polyarthropathy (HCC) Unspecified inflammatory polyarthropathy History of arthritis Personal history of arthritis Former smoker Personal history of tobacco use, presenting hazards to health Anemia, unspecified type Carotid stenosis, asymptomatic, bilateral- Primary Preop examination Preoperative examination, unspecified Paroxysmal atrial fibrillation (HCC) Atrial fibrillation Mixed hyperlipidemia Coronary artery disease involving [place] coronary artery of [place] heart with angina pectoris (HCC) Cardiomyopathy, unspecified type (HCC) BENIGN HYPERTENSION Essential hypertension, benign Gastroesophageal reflux disease, unspecified whether esophagitis present Iron deficiency anemia, unspecified iron deficiency anemia type Contact dermatitis, unspecified contact dermatitis type, unspecified trigger- Primary Acute right-sided low back pain without sciatica Bilateral impacted cerumen Impacted cerumen documented in this encounter [facility] note* Diagnosis Pain Generalized pain Pre-operative examination- Primary Preoperative examination, unspecified Atrial fibrillation, unspecified type (HCC) BENIGN HYPERTENSION Essential hypertension, benign Carotid stenosis, asymptomatic, bilateral Ischemic cardiomyopathy Other specified forms of chronic ischemic heart disease Mixed hyperlipidemia PAD (peripheral artery disease) (HCC) Peripheral vascular disease, unspecified Coronary artery disease involving [place] coronary artery of [place] heart with angina pectoris (HCC) Gout involving toe of right foot, unspecified cause, unspecified chronicity Inflammatory polyarthropathy (HCC) Unspecified inflammatory polyarthropathy History of arthritis Personal history of arthritis Former smoker Personal history of tobacco use, presenting hazards to health Anemia, unspecified type Carotid stenosis, asymptomatic, bilateral- Primary Preop examination Preoperative examination, unspecified Paroxysmal atrial fibrillation (HCC) Atrial fibrillation Mixed hyperlipidemia Coronary artery disease involving [place] coronary artery of [place] heart with angina pectoris (HCC) Cardiomyopathy, unspecified type (HCC) BENIGN HYPERTENSION Essential hypertension, benign Gastroesophageal reflux disease, unspecified whether esophagitis present Iron deficiency anemia, unspecified iron deficiency anemia type [facility] Acute cough Pre-operative examination- Primary Preoperative examination, unspecified Atrial fibrillation, unspecified type (HCC) BENIGN HYPERTENSION Essential hypertension, benign Carotid stenosis, asymptomatic, bilateral Ischemic cardiomyopathy Other specified forms of chronic ischemic heart disease Mixed hyperlipidemia PAD (peripheral artery disease) (HCC) Peripheral vascular disease, unspecified Coronary artery disease involving [place] coronary artery of [place] heart with angina pectoris (HCC) Gout involving toe of right foot, unspecified cause, unspecified chronicity Inflammatory polyarthropathy (HCC) Unspecified inflammatory polyarthropathy History of arthritis Personal history of arthritis Former smoker Personal history of tobacco use, presenting hazards to health Anemia, unspecified type Carotid stenosis, asymptomatic, bilateral- Primary Preop examination Preoperative examination, unspecified Paroxysmal atrial fibrillation (HCC) Atrial fibrillation Mixed hyperlipidemia Coronary artery disease involving [place] coronary artery of [place] heart with angina pectoris (HCC) Cardiomyopathy, unspecified type (HCC) BENIGN HYPERTENSION Essential hypertension, benign Gastroesophageal reflux disease, unspecified whether esophagitis present Iron deficiency anemia, unspecified iron deficiency anemia type documented in this encounter [facility]* Diagnosis Pre-operative examination- Primary Preoperative examination, unspecified Atrial fibrillation, unspecified type (HCC) BENIGN HYPERTENSION Essential hypertension, benign Carotid stenosis, asymptomatic, bilateral Ischemic cardiomyopathy Other specified forms of chronic ischemic heart disease Mixed hyperlipidemia PAD (peripheral artery disease) (HCC) Peripheral vascular disease, unspecified Coronary artery disease involving [place] coronary artery of [place] heart with angina pectoris (HCC) Gout involving toe of right foot, unspecified cause, unspecified chronicity Inflammatory polyarthropathy (HCC) Unspecified inflammatory polyarthropathy History of arthritis Personal history of arthritis Former smoker Personal history of tobacco use, presenting hazards to health Anemia, unspecified type Carotid stenosis, asymptomatic, bilateral- Primary Preop examination Preoperative examination, unspecified Paroxysmal atrial fibrillation (HCC) Atrial fibrillation Mixed hyperlipidemia Coronary artery disease involving [place] coronary artery of [place] heart with angina pectoris (HCC) Cardiomyopathy, unspecified type (HCC) BENIGN HYPERTENSION Essential hypertension, benign Gastroesophageal reflux disease, unspecified whether esophagitis present Iron deficiency anemia, unspecified iron deficiency anemia type Anemia, unspecified type- Primary documented in this encounter [facility]* Diagnosis Acute pain of left shoulder Pre-operative examination- Primary Preoperative examination, unspecified Atrial fibrillation, unspecified type (HCC) BENIGN HYPERTENSION Essential hypertension, benign Carotid stenosis, asymptomatic, bilateral Ischemic cardiomyopathy Other specified forms of chronic ischemic heart disease Mixed hyperlipidemia PAD (peripheral artery disease) (HCC) Peripheral vascular disease, unspecified Coronary artery disease involving [place] coronary artery of [place] heart with angina pectoris (HCC) Gout involving toe of right foot, unspecified cause, unspecified chronicity Inflammatory polyarthropathy (HCC) Unspecified inflammatory polyarthropathy History of arthritis Personal history of arthritis Former smoker Personal history of tobacco use, presenting hazards to health Anemia, unspecified type Carotid stenosis, asymptomatic, bilateral- Primary Preop examination Preoperative examination, unspecified Paroxysmal atrial fibrillation (HCC) Atrial fibrillation Mixed hyperlipidemia Coronary artery disease involving [place] coronary artery of [place] heart with angina pectoris (HCC) Cardiomyopathy, unspecified type (HCC) BENIGN HYPERTENSION Essential hypertension, benign Gastroesophageal reflux disease, unspecified whether esophagitis present Iron deficiency anemia, unspecified iron deficiency anemia type documented in this encounter [facility]* Diagnosis Pre-operative examination- Primary Preoperative examination, unspecified Atrial fibrillation, unspecified type (HCC) BENIGN HYPERTENSION Essential hypertension, benign Carotid stenosis, asymptomatic, bilateral Ischemic cardiomyopathy Other specified forms of chronic ischemic heart disease Mixed hyperlipidemia PAD (peripheral artery disease) (HCC) Peripheral vascular disease, unspecified Coronary artery disease involving [place] coronary artery of [place] heart with angina pectoris (HCC) Gout involving toe of right foot, unspecified cause, unspecified chronicity Inflammatory polyarthropathy (HCC) Unspecified inflammatory polyarthropathy History of arthritis Personal history of arthritis Former smoker Personal history of tobacco use, presenting hazards to health Anemia, unspecified type Carotid stenosis, asymptomatic, bilateral- Primary Preop examination Preoperative examination, unspecified Paroxysmal atrial fibrillation (HCC) Atrial fibrillation Mixed hyperlipidemia Coronary artery disease involving [place] coronary artery of [place] heart with angina pectoris (HCC) Cardiomyopathy, unspecified type (HCC) BENIGN HYPERTENSION Essential hypertension, benign Gastroesophageal reflux disease, unspecified whether esophagitis present Iron deficiency anemia, unspecified iron deficiency anemia type GERD without esophagitis Esophageal reflux [facility] Diagnosis Pre-operative examination- Primary Preoperative examination, unspecified Atrial fibrillation, unspecified type (HCC) BENIGN HYPERTENSION Essential hypertension, benign Carotid stenosis, asymptomatic, bilateral Ischemic cardiomyopathy Other specified forms of chronic ischemic heart disease Mixed hyperlipidemia PAD (peripheral artery disease) (HCC) Peripheral vascular disease, unspecified Coronary artery disease involving [place] coronary artery of [place] heart with angina pectoris (HCC) Gout involving toe of right foot, unspecified cause, unspecified chronicity Inflammatory polyarthropathy (HCC) Unspecified inflammatory polyarthropathy History of arthritis Personal history of arthritis Former smoker Personal history of tobacco use, presenting hazards to health Anemia, unspecified type Carotid stenosis, asymptomatic, bilateral- Primary Preop examination Preoperative examination, unspecified Paroxysmal atrial fibrillation (HCC) Atrial fibrillation Mixed hyperlipidemia Coronary artery disease involving [place] coronary artery of [place] heart with angina pectoris (HCC) Cardiomyopathy, unspecified type (HCC) BENIGN HYPERTENSION Essential hypertension, benign Gastroesophageal reflux disease, unspecified whether esophagitis present Iron deficiency anemia, unspecified iron deficiency anemia type Sinobronchitis- Primary Unspecified sinusitis (chronic) documented in this encounter [facility]* Diagnosis Pre-operative examination- Primary Preoperative examination, unspecified Atrial fibrillation, unspecified type (HCC) BENIGN HYPERTENSION Essential hypertension, benign Carotid stenosis, asymptomatic, bilateral Ischemic cardiomyopathy Other specified forms of chronic ischemic heart disease Mixed hyperlipidemia PAD (peripheral artery disease) (HCC) Peripheral vascular disease, unspecified Coronary artery disease involving [place] coronary artery of [place] heart with angina pectoris (HCC) Gout involving toe of right foot, unspecified cause, unspecified chronicity Inflammatory polyarthropathy (HCC) Unspecified inflammatory polyarthropathy History of arthritis Personal history of arthritis Former smoker Personal history of tobacco use, presenting hazards to health Anemia, unspecified type Carotid stenosis, asymptomatic, bilateral- Primary Preop examination Preoperative examination, unspecified Paroxysmal atrial fibrillation (HCC) Atrial fibrillation Mixed hyperlipidemia Coronary artery disease involving [place] coronary artery of [place] heart with angina pectoris (HCC) Cardiomyopathy, unspecified type (HCC) BENIGN HYPERTENSION Essential hypertension, benign Gastroesophageal reflux disease, unspecified whether esophagitis present Iron deficiency anemia, unspecified iron deficiency anemia type Chronic 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- Primary documented in this encounter [facility] note* Diagnosis Pre-operative examination- Primary Preoperative examination, unspecified Atrial fibrillation, unspecified type (HCC) BENIGN HYPERTENSION Essential hypertension, benign Carotid stenosis, asymptomatic, bilateral Ischemic cardiomyopathy Other specified forms of chronic ischemic heart disease Mixed hyperlipidemia PAD (peripheral artery disease) (HCC) Peripheral vascular disease, unspecified Coronary artery disease involving [place] coronary artery of [place] heart with angina pectoris (HCC) Gout involving toe of right foot, unspecified cause, unspecified chronicity Inflammatory polyarthropathy (HCC) Unspecified inflammatory polyarthropathy History of arthritis Personal history of arthritis Former smoker Personal history of tobacco use, presenting hazards to health Anemia, unspecified type Carotid stenosis, asymptomatic, bilateral- Primary Preop examination Preoperative examination, unspecified Paroxysmal atrial fibrillation (HCC) Atrial fibrillation Mixed hyperlipidemia Coronary artery disease involving [place] coronary artery of [place] heart with angina pectoris (HCC) Cardiomyopathy, unspecified type (HCC) BENIGN HYPERTENSION Essential hypertension, benign Gastroesophageal reflux disease, unspecified whether esophagitis present Iron deficiency anemia, unspecified iron deficiency anemia type Chronic 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- Primary documented [facility] this [facility]* Diagnosis Pre-operative examination- Primary Preoperative examination, unspecified Atrial fibrillation, unspecified type (HCC) BENIGN HYPERTENSION Essential hypertension, benign Carotid stenosis, asymptomatic, bilateral Ischemic cardiomyopathy Other specified forms of chronic ischemic heart disease Mixed hyperlipidemia PAD (peripheral artery disease) (HCC) Peripheral vascular disease, unspecified Coronary artery disease involving [place] coronary artery of [place] heart with angina pectoris (HCC) Gout involving toe of right foot, unspecified cause, unspecified chronicity Inflammatory polyarthropathy (HCC) Unspecified inflammatory polyarthropathy History of arthritis Personal history of arthritis Former smoker Personal history of tobacco use, presenting hazards to health Anemia, unspecified type Carotid stenosis, asymptomatic, bilateral- Primary Preop examination Preoperative examination, unspecified Paroxysmal atrial fibrillation (HCC) Atrial fibrillation Mixed hyperlipidemia Coronary artery disease involving [place] coronary artery of [place] heart with angina pectoris (HCC) Cardiomyopathy, unspecified type (HCC) BENIGN HYPERTENSION Essential hypertension, benign Gastroesophageal reflux disease, unspecified whether esophagitis present Iron deficiency anemia, unspecified iron deficiency anemia type Preop examination- Primary Preoperative examination, unspecified Chronic 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 GERD without esophagitis Esophageal reflux BENIGN HYPERTENSION Essential hypertension, benign Paroxysmal atrial fibrillation (HCC) Atrial fibrillation Coronary artery disease involving [place] coronary artery of [place] heart with angina pectoris (HCC) Mixed hyperlipidemia Gout involving toe of right foot, unspecified cause, unspecified chronicity Anemia, unspecified type Bilateral leg edema Edema documented [facility] this [facility]* Diagnosis Pre-operative examination- Primary Preoperative examination, unspecified Atrial fibrillation, unspecified type (HCC) BENIGN HYPERTENSION Essential hypertension, benign Carotid stenosis, asymptomatic, bilateral Ischemic cardiomyopathy Other specified forms of chronic ischemic heart disease Mixed hyperlipidemia PAD (peripheral artery disease) (HCC) Peripheral vascular disease, unspecified Coronary artery disease involving [place] coronary artery of [place] heart with angina pectoris (HCC) Gout involving toe of right foot, unspecified cause, unspecified chronicity Inflammatory polyarthropathy (HCC) Unspecified inflammatory polyarthropathy History of arthritis Personal history of arthritis Former smoker Personal history of tobacco use, presenting hazards to health Anemia, unspecified type Carotid stenosis, asymptomatic, bilateral- Primary Preop examination Preoperative examination, unspecified Paroxysmal atrial fibrillation (HCC) Atrial fibrillation Mixed hyperlipidemia Coronary artery disease involving [place] coronary artery of [place] heart with angina pectoris (HCC) Cardiomyopathy, unspecified type (HCC) BENIGN HYPERTENSION Essential hypertension, benign Gastroesophageal reflux disease, unspecified whether esophagitis present Iron deficiency anemia, unspecified iron deficiency anemia type Hyponatremia- Primary Hyposmolality and/or hyponatremia documented in this encounter [facility] note* Diagnosis Pre-operative examination- Primary Preoperative examination, unspecified Atrial fibrillation, unspecified type (HCC) BENIGN HYPERTENSION Essential hypertension, benign Carotid stenosis, asymptomatic, bilateral Ischemic cardiomyopathy Other specified forms of chronic ischemic heart disease Mixed hyperlipidemia PAD (peripheral artery disease) (HCC) Peripheral vascular disease, unspecified Coronary artery disease involving [place] coronary artery of [place] heart with angina pectoris (HCC) Gout involving toe of right foot, unspecified cause, unspecified chronicity Inflammatory polyarthropathy (HCC) Unspecified inflammatory polyarthropathy History of arthritis Personal history of arthritis Former smoker Personal history of tobacco use, presenting hazards to health Anemia, unspecified type Carotid stenosis, asymptomatic, bilateral- Primary Preop examination Preoperative examination, unspecified Paroxysmal atrial fibrillation (HCC) Atrial fibrillation Mixed hyperlipidemia Coronary artery disease involving [place] coronary artery of [place] heart with angina pectoris (HCC) Cardiomyopathy, unspecified type (HCC) BENIGN HYPERTENSION Essential hypertension, benign Gastroesophageal reflux disease, unspecified whether esophagitis present Iron deficiency anemia, unspecified iron deficiency anemia type Hyperlipidemia, unspecified hyperlipidemia type- Primary Primary hypertension Unspecified essential hypertension Gout involving toe of right foot, unspecified cause, unspecified chronicity PAD (peripheral artery disease) (HCC) Peripheral vascular disease, unspecified Atrial fibrillation, unspecified type (HCC) Coronary artery disease involving [place] coronary artery of [place] heart with angina pectoris (HCC) Iron deficiency anemia, unspecified iron deficiency anemia type Inflammatory polyarthropathy (HCC) Unspecified inflammatory polyarthropathy Ischemic cardiomyopathy Other specified forms of chronic ischemic heart disease Bilateral leg edema Edema Cardiomyopathy, unspecified type (HCC) Elevated glucose Other abnormal glucose Non-traumatic compression fracture of L5 lumbar vertebra with routine healing, subsequent encounter documented in this encounter [facility] note* Diagnosis Pre-operative examination- Primary Preoperative examination, unspecified Atrial fibrillation, unspecified type (HCC) BENIGN HYPERTENSION Essential hypertension, benign Carotid stenosis, asymptomatic, bilateral Ischemic cardiomyopathy Other specified forms of chronic ischemic heart disease Mixed hyperlipidemia PAD (peripheral artery disease) (HCC) Peripheral vascular disease, unspecified Coronary artery disease involving [place] coronary artery of [place] heart with angina pectoris (HCC) Gout involving toe of right foot, unspecified cause, unspecified chronicity Inflammatory polyarthropathy (HCC) Unspecified inflammatory polyarthropathy History of arthritis Personal history of arthritis Former smoker Personal history of tobacco use, presenting hazards to health Anemia, unspecified type Carotid stenosis, asymptomatic, bilateral- Primary Preop examination Preoperative examination, unspecified Paroxysmal atrial fibrillation (HCC) Atrial fibrillation Mixed hyperlipidemia Coronary artery disease involving [place] coronary artery of [place] heart with angina pectoris (HCC) Cardiomyopathy, unspecified type (HCC) BENIGN HYPERTENSION Essential hypertension, benign Gastroesophageal reflux disease, unspecified whether esophagitis present Iron deficiency anemia, unspecified iron deficiency anemia type Acute pain of right knee- Primary documented [facility]* Diagnosis Pre-operative examination- Primary Preoperative examination, unspecified Atrial fibrillation, unspecified type (HCC) BENIGN HYPERTENSION Essential hypertension, benign Carotid stenosis, asymptomatic, bilateral Ischemic cardiomyopathy Other specified forms of chronic ischemic heart disease Mixed hyperlipidemia PAD (peripheral artery disease) (HCC) Peripheral vascular disease, unspecified Coronary artery disease involving [place] coronary artery of [place] heart with angina pectoris (HCC) Gout involving toe of right foot, unspecified cause, unspecified chronicity Inflammatory polyarthropathy (HCC) Unspecified inflammatory polyarthropathy History of arthritis Personal history of arthritis Former smoker Personal history of tobacco use, presenting hazards to health Anemia, unspecified type Carotid stenosis, asymptomatic, bilateral- Primary Preop examination Preoperative examination, unspecified Paroxysmal atrial fibrillation (HCC) Atrial fibrillation Mixed hyperlipidemia Coronary artery disease involving [place] coronary artery of [place] heart with angina pectoris (HCC) Cardiomyopathy, unspecified type (HCC) BENIGN HYPERTENSION Essential hypertension, benign Gastroesophageal reflux disease, unspecified whether esophagitis present Iron deficiency anemia, unspecified iron deficiency anemia type Chronic gout of left knee, unspecified cause- [facility] Diagnosis Pre-operative examination- Primary Preoperative examination, unspecified Atrial fibrillation, unspecified type (HCC) BENIGN HYPERTENSION Essential hypertension, benign Carotid stenosis, asymptomatic, bilateral Ischemic cardiomyopathy Other specified forms of chronic ischemic heart disease Mixed hyperlipidemia PAD (peripheral artery disease) (HCC) Peripheral vascular disease, unspecified Coronary artery disease involving [place] coronary artery of [place] heart with angina pectoris (HCC) Gout involving toe of right foot, unspecified cause, unspecified chronicity Inflammatory polyarthropathy (HCC) Unspecified inflammatory polyarthropathy History of arthritis Personal history of arthritis Former smoker Personal history of tobacco use, presenting hazards to health Anemia, unspecified type Carotid stenosis, asymptomatic, bilateral- Primary Preop examination Preoperative examination, unspecified Paroxysmal atrial fibrillation (HCC) Atrial fibrillation Mixed hyperlipidemia Coronary artery disease involving [place] coronary artery of [place] heart with angina pectoris (HCC) Cardiomyopathy, unspecified type (HCC) BENIGN HYPERTENSION Essential hypertension, benign Gastroesophageal reflux disease, unspecified whether esophagitis present Iron deficiency anemia, unspecified iron deficiency anemia type URI, acute- Primary Acute upper respiratory infections of unspecified site Acute cough Acute cough documented in this encounter [facility] note* Diagnosis Pre-operative examination- Primary Preoperative examination, unspecified Atrial fibrillation, unspecified type (HCC) BENIGN HYPERTENSION Essential hypertension, benign Carotid stenosis, asymptomatic, bilateral Ischemic cardiomyopathy Other specified forms of chronic ischemic heart disease Mixed hyperlipidemia PAD (peripheral artery disease) (HCC) Peripheral vascular disease, unspecified Coronary artery disease involving [place] coronary artery of [place] heart with angina pectoris (HCC) Gout involving toe of right foot, unspecified cause, unspecified chronicity Inflammatory polyarthropathy (HCC) Unspecified inflammatory polyarthropathy History of arthritis Personal history of arthritis Former smoker Personal history of tobacco use, presenting hazards to health Anemia, unspecified type Carotid stenosis, asymptomatic, bilateral- Primary Preop examination Preoperative examination, unspecified Paroxysmal atrial fibrillation (HCC) Atrial fibrillation Mixed hyperlipidemia Coronary artery disease involving [place] coronary artery of [place] heart with angina pectoris (HCC) Cardiomyopathy, unspecified type (HCC) BENIGN HYPERTENSION Essential hypertension, benign Gastroesophageal reflux disease, unspecified whether esophagitis present Iron deficiency anemia, unspecified iron deficiency anemia type Acute cough documented in this encounter [facility] note* Diagnosis Pre-operative examination- Primary Preoperative examination, unspecified Atrial fibrillation, unspecified type (HCC) BENIGN HYPERTENSION Essential hypertension, benign Carotid stenosis, asymptomatic, bilateral Ischemic cardiomyopathy Other specified forms of chronic ischemic heart disease Mixed hyperlipidemia PAD (peripheral artery disease) Peripheral vascular disease, unspecified Coronary artery disease involving [place] coronary artery of [place] heart with angina pectoris Gout involving toe of right foot, unspecified cause, unspecified chronicity Inflammatory polyarthropathy (HCC) Unspecified inflammatory polyarthropathy History of arthritis Personal history of arthritis Former smoker Personal history of tobacco use, presenting hazards to health Anemia, unspecified type Carotid stenosis, asymptomatic, bilateral- Primary Preop examination Preoperative examination, unspecified Paroxysmal atrial fibrillation (HCC) Atrial fibrillation Mixed hyperlipidemia Coronary artery disease involving [place] coronary artery of [place] heart with angina pectoris Cardiomyopathy, unspecified type (HCC) BENIGN HYPERTENSION Essential hypertension, benign Gastroesophageal reflux disease, unspecified whether esophagitis present Iron deficiency anemia, unspecified iron deficiency anemia type APPOINTMENT CANCELLED- Primary documented in this encounter [facility] for referral (narrative)* Diagnostic Procedure Only (Routine) - Authorized Specialty Diagnoses / Procedures Referred By Contac t Referred To Contact XR IMAGING Diagnoses Pain Procedures XR FOOT GENERAL 3V AP/LAT/OBL RIGHT RADEX FOOT COMPLETE MINIMUM 3 VIEWS Karina [address]line[address] [place] [address] Xr Imaging Referral ID Status Reason Start Date Expiration Date Visits Requested Visits Authorized [id number] Authorized Auto-Generat ed Referral 11/16/2021 12/16/2022 1 1 [facility] for referral (narrative)* Diagnostic Procedure Only (Routine) - Closed Specialty Diagnoses / Procedures Referred By Contac t Referred To Contact XR IMAGING Diagnoses Pain Procedures XR FOOT GENERAL 3V AP/LAT/OBL RIGHT RADEX FOOT COMPLETE MINIMUM 3 VIEWS Karina [address]line[address] [place] [address] Xr Imaging Referral ID Status Reason Start Date Expiration Date V isits Requested Visits Authorized [id number] Closed Auto-Generate d Referral 11/16/2021 12/16/2022 1 1 [facility] for referral (narrative)* Diagnostic Procedure Only (Routine) - Pending Review Specialty Diagnoses / Procedures Referred By Contac t Referred To Contact XR IMAGING Diagnoses Pain in left foot Procedures XR FOOT GENERAL 3V AP/LAT/OBL LEFT RADEX FOOT COMPLETE MINIMUM 3 VIEWS Karina [address]line[address] [place] [address] Xr Imaging Referral ID Status Reason Start Date Expiration Date Visits Requested Visits Authorized [id number] Pending Review Auto-Generat ed Referral 04/16/2022 05/16/2023 1 1 [facility] for referral (narrative)* Diagnostic Procedure Only (Routine) - Closed Specialty Diagnoses / Procedures Referred By Contac t Referred To Contact XR IMAGING Diagnoses Pain in left foot Procedures XR FOOT GENERAL 3V AP/LAT/OBL LEFT RADEX FOOT COMPLETE MINIMUM 3 VIEWS Karina Cline [address] [place] [address] Xr Imaging Referral ID Status Reason Start Date Expiration Date V isits Requested Visits Authorized [id number] Closed Auto-Generate d Referral 04/16/2022 05/16/2023 1 1 [facility] for referral (narrative)* Diagnostic Procedure Only (Routine) - Authorized Specialty Diagnoses / Procedures Referred By Contac t Referred To Contact US IMAGING Diagnoses Enlarged thyroid Procedures US THYROID/PARATHYROID US SOFT TISSUE HEAD & NECK REAL TIME IMGE Ruth Gonzalez APRN.CNP [address] [place] [address] Us Imaging Referral ID Status Reason Start Date Expiration Date Visits Requested Visits Authorized [id number] Authorized Auto-Generat ed Referral 07/21/2022 08/20/2023 1 1 [facility] for referral (narrative)* Diagnostic Procedure Only (Urgent) - Pending Review Specialty Diagnoses / Procedures Referred By Contac t Referred To Contact XR IMAGING Diagnoses Toe swelling Procedures XR FOOT GENERAL 3V AP/LAT/OBL RIGHT RADEX FOOT COMPLETE MINIMUM 3 VIEWS Royce Rivera APRN.CNP [address] [place] [address] Xr Imaging Referral ID Status Reason Start Date Expiration Date Visits Requested Visits Authorized [id number] Pending Review Auto-Generat ed Referral 08/01/2022 08/31/2023 1 1 [facility] for referral (narrative)* Diagnostic Procedure Only (Routine) - Pending Review Specialty Diagnoses / Procedures [facility] MOLECULAR & FUNCTIONAL IMAGING Diagnoses Atrial fibrillation, unspecified type (HCC) Shortness of breath Procedures NM CARDIAC PERF STRESS/PHARM MYOCARDIAL SPECT MULTIPLE STUDIES Ruth Perez APRN.GANG HEMSTITCHING MACHINE OPERATOR [address] [place] [address] Molecular & Functional Imaging [address] [place] [address] Referral ID Status Reason Start Date Expiration Date Visits Requested Visits Authorized [id number] Pending Review Auto-Generat ed Referral 09/06/2022 10/06/2023 1 1 [facility] for referral (narrative)* Diagnostic Procedure Only (Urgent) - Closed Specialty Diagnoses / Procedures [facility] To Contact XR IMAGING Diagnoses Pain Procedures XR FOOT GENERAL 3V AP/LAT/OBL LEFT RADEX FOOT COMPLETE MINIMUM 3 VIEWS Ita Villanueva APRN.GANG HEMSTITCHING MACHINE OPERATOR [address] [place] [address] Xr Imaging Referral ID Status Reason Start Date Expiration Date V isits Requested Visits Authorized [id number] Closed Auto-Generate d Referral 09/27/2022 10/27/2023 1 1 [facility] for referral (narrative)* Diagnostic Procedure Only (Routine) - Closed Specialty Diagnoses / Procedures [facility] To Contact XR IMAGING Diagnoses Acute gout involving toe of left foot, unspecified cause Pain in left foot Procedures XR FOOT GENERAL 3V AP/LAT/OBL LEFT RADEX FOOT COMPLETE MINIMUM 3 [place] [address] Xr Imaging Referral ID Status Reason Start Date Expiration Date V isits Requested Visits Authorized [id number] Closed Auto-Generate d Referral 10/11/2022 11/10/2023 1 1 [facility] for referral (narrative)* Outpatient Procedure (Routine) - Closed Specialty Diagnoses / Procedures Referred By Contac t Referred To Contact [facility] Diagnoses Persistent atrial fibrillation (HCC) Dyspnea, unspecified type Procedures ECHO ECHO TTHRC R-T 2D W/WOM-MODE COMPL SPEC&COLR D Timothy Walker MD [address] [place] [address] [facility] [address] [place] [address] Referral ID Status Reason Start Date Expiration Date V isits Requested Visits Authorized [id number] Closed Auto-Generate d Referral 03/22/2023 12/30/2023 1 1 [facility] for referral (narrative)* Diagnostic Procedure Only (Routine) - Closed Specialty Diagnoses / Procedures Referred By Contac t Referred To Contact XR IMAGING Diagnoses Acute idiopathic gout, unspecified site Pain in right foot Procedures XR FOOT GENERAL 3V AP/LAT/OBL RIGHT RADEX FOOT COMPLETE MINIMUM 3 VIEWS Karina Cline [address] [place] [address] [place] [address] Referral ID Status Reason Start Date Expiration Date V isits Requested Visits Authorized [id number] Closed Auto-Generate d Referral 11/03/2022 12/03/2023 1 1 T [facility] for referral (narrative)* Diagnostic Procedure Only (Routine) - Closed Specialty Diagnoses / Procedures Referred By Contac t Referred To Contact US IMAGING Diagnoses Tenderness of neck Procedures US HEAD/NECK SOFT TISSUE OTHER US SOFT TISSUE HEAD & NECK REAL TIME IMGE Ruth Gonzalez, AL.GANG HEMSTITCHING MACHINE OPERATOR [address] [place] [address] [place] [address] Referral ID Status Reason Start Date Expiration Date V isits Requested Visits Authorized [id number] Closed Auto-Generate d Referral 04/06/2023 05/05/2024 1 1 * Diagnostic Procedure Only (Routine) - Closed Specialty Diagnoses / Procedures Referred By Contac t Referred To Contact US IMAGING Diagnoses Enlarged thyroid Procedures US THYROID/PARATHYROID US SOFT TISSUE HEAD & NECK REAL TIME IMGE DOCRuth Nelson APRN.GANG HEMSTITCHING MACHINE OPERATOR [address] [place] [address] [place] [address] Referral ID Status Reason Start Date Expiration Date V isits Requested Visits Authorized [id number] Closed Auto-Generate d Referral 04/06/2023 05/05/2024 1 1 [facility] for referral (narrative)* Diagnostic Procedure Only (Routine) - Closed Specialty Diagnoses / Procedures Referred By Contac t Referred To Contact US IMAGING Diagnoses Enlarged thyroid Procedures US THYROID/PARATHYROID US SOFT TISSUE HEAD & NECK REAL TIME IMGE DOCRuth Nelson APRN.GANG HEMSTITCHING MACHINE OPERATOR [address] [place] [address] [place] [address] Referral ID Status Reason Start Date Expiration Date V isits Requested Visits Authorized [id number] Closed Auto-Generate d Referral 07/21/2022 08/20/2023 1 1 [facility] for referral (narrative)* Diagnostic Procedure Only (Urgent) - Closed Specialty Diagnoses / Procedures Referred By Contac t Referred To Contact XR IMAGING Diagnoses Acute pain of left knee Procedures XR KNEE INJURY 4V AP/LAT/OBLS LEFT RADIOLOGIC EXAM KNEE COMPLETE 4/MORE VIEWS Sumaya Alcazar APRN.GANG HEMSTITCHING MACHINE OPERATOR [address] [place] [address] [place] [address] Referral ID Status Reason Start Date Expiration Date V isits Requested Visits Authorized [id number] Closed Auto-Generate d Referral 09/02/2023 10/01/2024 1 1 [facility] for referral (narrative)* Outpatient Procedure (Routine) - Authorized Specialty Diagnoses / Procedures Referred By Contac t Referred To Contact [facility] Diagnoses Vision changes Amaurosis fugax Procedures US CAROTID ARTERIES TERRY VAS LAB DUPLEX SCAN EXTRACRANIAL ART COMPL BI STUDY Federico Vigil MD [address] [place] [address] [facility] [address] [place] [address] Referral ID Status Reason Start Date Expiration Date Visits Requested Visits Authorized [id number] Authorized Auto-Generat ed Referral 11/10/2023 11/09/2024 1 1 [facility] for referral (narrative)* Diagnostic Procedure Only (Routine) - Pending Review Specialty Diagnoses / Procedures Referred By Contac t Referred To Contact US IMAGING Diagnoses Bilateral extracranial carotid artery stenosis Amaurosis fugax Occlusion and stenosis of unspecified carotid artery Procedures US CAROTID BILATERAL Phi Caba MD [address] [place] [address] [place] [address] Referral ID Status Reason Start Date Expiration Date Visits Requested Visits Authorized [id number] Pending Review Auto-Generat ed Referral 11/17/2023 12/16/2024 1 1 * MRI/CT (Routine) - Closed Specialty Diagnoses / Procedures Referred By Contac t Referred To Contact CT IMAGING Diagnoses Amaurosis fugax Procedures CTA NECK W IVCON CT ANGIOGRAPHY NECK W/CONTRAST/NONCONTRAST Phi Caba MD [address] [place] [address] [place] [address] Referral ID Status Reason Start Date Expiration Date Visits Re quested Visits Authorized [id number] Closed 11/18/2023 07/17/2024 1 1 * MRI/CT (Routine) - Closed Specialty Diagnoses / Procedures Referred By Nupur fischer Referred To Contact CT IMAGING Diagnoses Occlusion and stenosis of unspecified carotid artery Procedures CTA HEAD W IVCON CT ANGIOGRAPHY HEAD W/CONTRAST/NONCONTRAST Phi Caba MD [address] [place] [address] [place] [address] Referral ID Status Reason Start Date Expiration Date Visits Re quested Visits Authorized [id number] Closed 11/18/2023 07/17/2024 1 1 [facility] for referral (narrative)* Outpatient Procedure (Routine) - Pending Review Specialty Diagnoses / Procedures Referred By Nupur fischer Referred To Contact [facility] Diagnoses Bilateral extracranial carotid artery stenosis Procedures ECG COMPLETE ECG ROUTINE ECG W/LEAST 12 LDS W/I&R Elena Watkins APRN.CNP [address] [place] [address] [facility] [address] [place] [id number] Referral ID Status Reason Start Date Expiration Date Visits Requested Visits Authorized [id number] Pending Review Auto-Generat ed Referral 12/09/2023 12/08/2024 1 1 [facility] for referral (narrative)* Diagnostic Procedure Only (Routine) - New Request Specialty Diagnoses / Procedures Referred By Nupur fischer Referred To Contact US IMAGING Diagnoses Bilateral extracranial carotid artery stenosis History of right-sided carotid endarterectomy Procedures US CAROTID BILATERAL Phi Caba MD [address] [place] [address] [place] [address] Referral ID Status Reason Start Date Expiration Date Visits Requested Visits Authorized [id number] New Request Auto-Generat ed Referral 02/26/2024 02/24/2025 1 1 [facility] for referral (narrative)* Outpatient Procedure (Routine) - New Request Specialty Diagnoses / Procedures Referred By Contac t Referred To Contact [facility] Diagnoses S/P carotid endarterectomy Carotid stenosis, asymptomatic, bilateral Procedures US CAROTID ARTERIES TERRY VAS LAB DUPLEX SCAN EXTRACRANIAL ART COMPL BI STUDY Phi Caba MD [address] [facility] [address] [place] [address] [facility] [address] [place] [address] Referral ID Status Reason Start Date Expiration Date Visits Requested Visits Authorized [id number] New Request Auto-Generat ed Referral 02/23/2024 02/22/2025 1 1 [facility] for referral (narrative)* Diagnostic Procedure Only (Routine) - New Request Specialty Diagnoses / Procedures Referred By Contac t Referred To Contact XR IMAGING Diagnoses Acute right-sided low back pain without sciatica Procedures XR LUMBAR GENERAL 3V AP/LAT/L5-S1 RADEX SPINE LUMBOSACRAL 2/3 VIEWS Federico Vigil MD [address] [place] [address] [place] [address] Referral ID Status Reason Start Date Expiration Date Visits Requested Visits Authorized [id number] New Request Auto-Generat ed Referral 02/27/2024 03/28/2025 1 1 [facility] for referral (narrative)* Diagnostic Procedure Only (Urgent) - Closed Specialty Diagnoses / Procedures Referred By Contac t Referred To Contact XR IMAGING Diagnoses Pain Procedures XR FOOT GENERAL 3V AP/LAT/OBL LEFT RADEX FOOT COMPLETE MINIMUM 3 VIEWS Ita Villanueva APRN.CNP [address] [place] [address] [place] [address] Referral ID Status Reason Start Date Expiration Date V isits Requested Visits Authorized [id number] Closed Auto-Generate d Referral 09/27/2022 10/27/2023 1 1 [facility] for referral (narrative)* Diagnostic Procedure Only (Urgent) - Closed Specialty Diagnoses / Procedures Referred By Contac t Referred To Contact XR IMAGING Diagnoses Acute pain of right knee Procedures XR KNEE GENERAL 4V AP BOTH/PA BOTH/LAT/MERC LEFT RADIOLOGIC EXAM KNEE COMPLETE 4/MORE VIEWS Sumaya Alcazar APRN.CNP [address] [place] [address] [place] [address] Referral ID Status Reason Start Date Expiration Date V isits Requested Visits Authorized [id number] Closed Auto-Generate d Referral 08/24/2024 09/23/2025 1 1 [facility] for referral (narrative)No reason for referral [facility] N[facility]* Diagnostic Procedure Only (Routine) - Closed Specialty Diagnoses / Procedures Referred By Contac t Referred To Contact XR IMAGING Diagnoses Pain Procedures XR FOOT GENERAL 3V AP/LAT/OBL RIGHT RADEX FOOT COMPLETE MINIMUM 3 VIEWS Karina Cline [address] [place] [address] Xr Imaging Referral ID Status Reason Start Date Expiration Date V isits Requested Visits Authorized [id number] Closed Auto-Generate d Referral 11/16/2021 12/16/2022 1 1 [facility] for visit Narrative* Diagnostic Procedure Only (Routine) - Closed Specialty Diagnoses / Procedures Referred By Contac t Referred To Contact XR IMAGING Diagnoses Pain in left foot Procedures XR FOOT GENERAL 3V AP/LAT/OBL LEFT RADEX FOOT COMPLETE MINIMUM 3 VIEWS Karina Cline [address] [place] [address] Xr Imaging Referral ID Status Reason Start Date Expiration Date V isits Requested Visits Authorized [id number] Closed Auto-Generate d Referral 04/16/2022 05/16/2023 1 1 [facility] for visit Narrative* Outpatient Procedure (Routine) - Closed Specialty Diagnoses / Procedures Referred By Contac t Referred To Contact [facility] Diagnoses Persistent atrial fibrillation (HCC) Dyspnea, unspecified type Procedures ECHO ECHO TTHRC R-T 2D W/WOM-MODE COMPL SPEC&COLR D Timothy Walker MD [address] [place] [address] [facility] [address] [place] [address] Referral ID Status Reason Start Date Expiration Date V isits Requested Visits Authorized [id number] Closed Auto-Generate d Referral 03/22/2023 12/30/2023 1 1 [facility] for visit Narrative* Diagnostic Procedure Only (Routine) - Closed Specialty Diagnoses / Procedures Referred By Contac t Referred To Contact XR IMAGING Diagnoses Acute idiopathic gout, unspecified site Pain in right foot Procedures XR FOOT GENERAL 3V AP/LAT/OBL RIGHT RADEX FOOT COMPLETE MINIMUM 3 VIEWS Karina Cline [address] [place] [address] [place] [address] Referral ID Status Reason Start Date Expiration Date V isits Requested Visits Authorized [id number] Closed Auto-Generate d Referral 11/03/2022 12/03/2023 1 1 [facility] for visit Narrative* Diagnostic Procedure Only (Routine) - Closed Specialty Diagnoses / Procedures Referred By Contac t Referred To Contact XR IMAGING Diagnoses Acute right-sided low back pain without sciatica Procedures XR LUMBAR GENERAL 3V AP/LAT/L5-S1 RADEX SPINE LUMBOSACRAL 2/3 VIEWS Federico Vigil MD [address] [place] [address] [place] [address] Referral ID Status Reason Start Date Expiration Date V isits Requested Visits Authorized [id number] Closed Auto-Generate d Referral 02/27/2024 03/28/2025 1 1 [facility] for visit Narrative* Diagnostic Procedure Only (Urgent) - Closed Specialty Diagnoses / Procedures Referred By Contac t Referred To Contact XR IMAGING Diagnoses Acute pain of left knee Procedures XR KNEE INJURY 4V AP/LAT/OBLS LEFT RADIOLOGIC EXAM KNEE COMPLETE 4/MORE VIEWS Sumaya Alcazar, CUSTOMER SALES CONSULTANT.GANG HEMSTITCHING MACHINE OPERATOR [address] [place] [address] [place] [address] Referral ID Status Reason Start Date Expiration Date V isits Requested Visits Authorized [id number] Closed Auto-Generate d Referral 09/02/2023 10/01/2024 1 1 [facility] for visit Narrative* Diagnostic Procedure Only (Urgent) - Closed Specialty Diagnoses / Procedures Referred By Contac t Referred To Contact XR IMAGING Diagnoses Pain Procedures XR FOOT GENERAL 3V AP/LAT/OBL LEFT RADEX FOOT COMPLETE MINIMUM 3 VIEWS Ita Villanueva, CUSTOMER SALES CONSULTANT.GANG HEMSTITCHING MACHINE OPERATOR [address] [place] [address] [place] [address] Referral ID Status Reason Start Date Expiration Date V isits Requested Visits Authorized [id number] Closed Auto-Generate d Referral 09/27/2022 10/27/2023 1 1 [facility] for visit Narrative* Diagnostic Procedure Only (Urgent) - Closed Specialty Diagnoses / Procedures Referred By Contac t Referred To Contact XR IMAGING Diagnoses Acute pain of right knee Procedures XR KNEE GENERAL 4V AP BOTH/PA BOTH/LAT/MERC RIGHT RADIOLOGIC EXAM KNEE COMPLETE 4/MORE VIEWS Sumaya Alcazar, CUSTOMER SALES CONSULTANT.GANG HEMSTITCHING MACHINE OPERATOR [address] [place] [address] Phone: tel: fax: [place] [address] Referral ID Status Reason Start Date Expiration Date V isits Requested Visits Authorized [id number] Closed Auto-Generate d Referral 08/24/2024 09/23/2025 1 1 [facility] Summary Purpose Family History No Family History Records Found Relationship Condition Age at Onset Recorded Date/T juan mother Cerebrovascular accident (CVA) Unknown Cardiac disease Unknown Hypertension Unknown Relationship Condition Age at Onset Recorded Date/T juan mother Cerebrovascular accident (CVA) Unknown Cardiac disease Unknown Hypertension Unknown Coronary artery disease Unknown Malignant neoplasm Unknown father Malignant neoplasm Unknown sister Fibromyalgia Unknown brother Malignant neoplasm Unknown Advance Directives No Advanced Directives Records FoundDocuments on File Type Date 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 Advance Directive(s) 12/01/2020 9:29 AM Advance Directive(s) 12/01/2020 9:32 AM Advance Directive(s) 11/13/2020 10:53 AM Advance Directive(s) 09/08/2016 6:36 AM Documents on File Type Date Recorded 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 Advance Directive(s) 12/01/2020 9:29 AM Advance Directive(s) 12/01/2020 9:32 AM Advance Directive(s) 11/13/2020 10:53 AM Advance Directive(s) 09/08/2016 6:36 AM Advance Directive Response Recorded Date/ Time Living Will No July 03 11:37pm Power of Driveway Attendant No July 03, 2022 11:37pm Advance Directive Response Recorded Date/ Time Living Will No July 04 12:37am Power of Driveway Attendant No July 04, 2022 12:37am Advance Directive Response Recorded Date/ Time Advance Directives No October 06 8:30am Living Will No October 06, 2022 8:30am Power of Driveway Attendant No October 06 8:30am Advance Directive Response Recorded Date/ Time Advance Directives No October 06 8:30am Living Will No December 25, 2022 6:37am Power of Driveway Attendant No December 25 6:37am Advance Directive Response Recorded Date/ Time Advance Directives No October 06 8:30am Living Will No May 10 9:51pm Power of Driveway Attendant No May 10, 2023 9:51pm Advance Directive Response Recorded Date/ Time Advance Directives No June 10:21am Living Will No July 31 3:48pm Power of Driveway Attendant No July 31, 2023 3:48pm Advance Directive Response Recorded Date/ Time Advance Directives No June 11:21am Living Will No July 31 4:48pm Power of Driveway Attendant No July 31, 2023 4:48pm Advance Directive Response Recorded Date/ Time Living Will No July 31 4:48pm Do you have a Healthcare Power of Driveway Attendant? No July 31, 2023 4:48pm Advance Directives No June 11:21am Advance Directive Response Recorded Date/ Time Advance Directives No June 11:21am Chief Complaint Chief Complaint Description Start Date [...] (0.5 mL), INTRA-ARTICULAR, ONCE, 1 dose, On Ellen 04/22/22 at 0830 Given 04/20/2022 8:01 AM EDT 2.5 mg Foot, Left dexAMETHasone sodium phosphate 2 mg injection (DECADRON) 2 mg, INTRA-ARTICULAR, ONCE, 1 dose, On Ellen 04/22/22 at 0830 Given 04/20/2022 8:01 AM [...] 1:46 PM EDT 5 mg Foot, Left Chief Complaint and Reason for Visit Chief Complaint LOWER Chief Complaint LOWER RIGHT LEG Chief Complaint LOWER RIGHT LEG 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) SHORTNESS OF BREATH SHORTNESS OF BREATH Reason for Visit Atrial fibrillation Cardiomyopathy Carotid stenosis, bilateral Dyslipidemia Erectile dysfunction Essential (primary) hypertension Chief Complaint 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) SHORTNESS OF BREATH SHORTNESS OF BREATH ABN STRESS, SOB 6 wk FU Amb Documentation 6 wk FU INT LABS PAIN- COPY PCP Reason for Visit Atrial fibrillation Cardiomyopathy Carotid stenosis, bilateral Dyslipidemia Erectile dysfunction Essential (primary) hypertension Atrial fibrillation CAD (coronary artery disease) Cardiomyopathy Carotid stenosis, bilateral Dyslipidemia Erectile dysfunction Essential (primary) hypertension Atrial fibrillation CAD (coronary artery disease) Cardiomyopathy Carotid stenosis, bilateral Dyslipidemia Erectile dysfunction Essential (primary) hypertension Fatigue Chief Complaint 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) SHORTNESS OF BREATH SHORTNESS OF BREATH ABN STRESS, SOB 6 wk FU Amb Documentation 6 wk FU INT LABS PAIN- COPY PCP ELEVATED LIVER ENZYMES Reason for Visit Atrial fibrillation Cardiomyopathy Carotid stenosis, bilateral Dyslipidemia Erectile dysfunction Essential (primary) hypertension Atrial fibrillation CAD (coronary artery disease) Cardiomyopathy Carotid stenosis, bilateral Dyslipidemia Erectile dysfunction Essential (primary) hypertension Atrial fibrillation CAD (coronary artery disease) Cardiomyopathy Carotid stenosis, bilateral Dyslipidemia Erectile dysfunction Essential (primary) hypertension Fatigue Chief Complaint 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) SHORTNESS OF BREATH SHORTNESS OF BREATH ABN STRESS, SOB 6 wk FU Amb Documentation 6 wk FU INT LABS PAIN- COPY PCP ELEVATED LIVER ENZYMES sob Reason for Visit Atrial fibrillation Cardiomyopathy Carotid stenosis, bilateral Dyslipidemia Erectile dysfunction Essential (primary) hypertension Atrial fibrillation CAD (coronary artery disease) Cardiomyopathy Carotid stenosis, bilateral Dyslipidemia Erectile dysfunction Essential (primary) hypertension Atrial fibrillation CAD (coronary artery disease) Cardiomyopathy Carotid stenosis, bilateral Dyslipidemia Erectile dysfunction Essential (primary) hypertension Fatigue Chief Complaint ELEVATED LIVER ENZYM ES sob PAIN- COPY PCP Chief Complaint PAIN- COPY PCP n/v Chief Complaint n/v 6 M FU CERVIAL SPINE room 4 NECK PAIN. RX HERE CHEST INJURY Reason for Visit Atrial fibrillation CAD (coronary artery disease) Cardiomyopathy Carotid stenosis, bilateral Dyslipidemia Erectile dysfunction Essential (primary) hypertension Other cervical disc degeneration, mid-cervical region, unspecified level Chief Complaint n/v 6 M FU CERVIAL SPINE room 4 CHEST INJURY NECK PAIN. RX HERE INT LABS Reason for Visit Atrial fibrillation CAD (coronary artery disease) Cardiomyopathy Carotid stenosis, bilateral Dyslipidemia Erectile dysfunction Essential (primary) hypertension Other cervical disc degeneration, mid-cervical region, unspecified level Chief Complaint CERVIAL SPINE room 4 CHEST INJURY NECK PAIN. RX HERE INT LABS LEFT KNEE Room 4 Increased SOB out of proportion to anemia E-ORDER Reason for Visit Other cervical disc degeneration, mid-cervical region, unspecified level Left knee pain Anemia Atrial fibrillation CAD (coronary artery disease) Cardiomyopathy Carotid stenosis, bilateral Dyslipidemia Essential (primary) hypertension Chief Complaint CERVIAL SPINE room 4 CHEST INJURY NECK PAIN. RX HERE INT LABS LEFT KNEE Room 4 Increased SOB out of proportion to anemia E-ORDER PAIN- COPY PCP Reason for Visit Other cervical disc degeneration, mid-cervical region, unspecified level Left knee pain Anemia Atrial fibrillation CAD (coronary artery disease) Cardiomyopathy Carotid stenosis, bilateral Dyslipidemia Essential (primary) hypertension Chief Complaint CERVIAL SPINE room 4 CHEST INJURY NECK PAIN. RX HERE INT LABS LEFT KNEE Room 4 Increased SOB out of proportion to anemia E-ORDER PAIN- COPY PCP CERVICAL SPINE Reason for Visit Other cervical disc degeneration, mid-cervical region, unspecified level Left knee pain Anemia Atrial fibrillation CAD (coronary artery disease) Cardiomyopathy Carotid stenosis, bilateral Dyslipidemia Essential (primary) hypertension Cervical radiculopathy Chief Complaint CHEST INJURY NECK PAIN. RX HERE INT LABS LEFT KNEE Room 4 Increased SOB out of proportion to anemia E-ORDER PAIN- COPY PCP CERVICAL SPINE CERVICAL RAD Reason for Visit Left knee pain Anemia Atrial fibrillation CAD (coronary artery disease) Cardiomyopathy Carotid stenosis, bilateral Dyslipidemia Essential (primary) hypertension Cervical radiculopathy Chief Complaint Admit Date 6 M FU August 20, 2024 9 :40am LUMBAR SPINE September 14, 2024 10:44am Xray room 2 September 14, 2024 10:55am Carotid Artery, coming from Dr. Caba Apr 2024 12:34pm LUMBAR SPONDYLOSIS November 21, 2024 1:08pm Reason for Visit Admit Date Anemia August 20, 2024 9 :40am Atrial fibrillation August 20, 2024 9 :40am CAD (coronary artery disease) August 202024 9:40am Cardiomyopathy August 20, 2024 9 :40am Carotid stenosis, bilateral August 9:40am Dyslipidemia August 20, 2024 9 :40am Essential (primary) hypertension 2024 9:40am Mitral insufficiency August 20, 2024 9:40am Lumbar compression fracture August 10:44am Status post laminectomy September 14, 10:44am Carotid stenosis, bilateral November 14, 2024 12:34pm PAD (peripheral artery disease) November 142024 12:34pm Subclavian arterial stenosis November 14, 2024 12:34pm Chief Complaint Admit Date 6 M FU August 20, 2024 9 :40am LUMBAR SPINE September 14, 2024 10:44am Xray room 2 September 14, 2024 10:55am Carotid Artery, coming from Dr. Caba Apr 2024 12:34pm LUMBAR SPONDYLOSIS November 21, 2024 1:08pm MURMUR November 28, 2024 9:34a m EORDER November 29, 2024 2:11p m Chief Complaint Admit Date 6 M FU August 20, 2024 9 :40am LUMBAR SPINE September 14, 2024 10:44am Xray room 2 September 14, 2024 10:55am Carotid Artery, coming from Dr. Caba Apr 2024 12:34pm LUMBAR SPONDYLOSIS November 21, 2024 1:08pm MURMUR November 28, 2024 9:34a m EORDER November 29, 2024 2:11p m Atrial fibrillation December 11, 2024 1:57p m Reason for Visit Admit Date Anemia August 20, 2024 9 :40am Atrial fibrillation August 20, 2024 9 :40am CAD (coronary artery disease) August 202024 9:40am Cardiomyopathy August 20, 2024 9 :40am Carotid stenosis, bilateral August 9:40am Dyslipidemia August 20, 2024 9 :40am Essential (primary) hypertension 2024 9:40am Mitral insufficiency August 20, 2024 9:40am Lumbar compression fracture August 10:44am Status post laminectomy September 14, 2 025 10:44am Carotid stenosis, bilateral November 14, 2024 12:34pm PAD (peripheral artery disease) November 142024 12:34pm Subclavian arterial stenosis November 14, 2024 12:34pm Atrial fibrillation December 11, 2024 1:57p m CAD (coronary artery disease) December 11, 2024 1:57pm Cardiomyopathy December 11, 2024 1:57p m Carotid stenosis, bilateral December 11 1:57pm Dyslipidemia December 11, 2024 1:57p m Erectile dysfunction December 11, 2024 1:57 pm Essential (primary) hypertension November 1:57pm Mitral insufficiency December 11, 2024 1:57 pm Chief Complaint Admit Date 6 M FU August 20, 2024 9 :40am LUMBAR SPINE September 14, 2024 10:44am Xray room 2 September 14, 2024 10:55am Carotid Artery, coming from Dr. Caba Apr 2024 12:34pm LUMBAR SPONDYLOSIS November 21, 2024 1:08pm MURMUR November 28, 2024 9:34a m EORDER November 29, 2024 2:11p m Atrial fibrillation December 11, 2024 1:57p m S/P R CEA December 12, 2024 12:30 pm COMPRESSION FRACTURE December 13, 2024 12:3 3pm Chief Complaint Admit Date LUMBAR SPINE September 14, 2024 10:44am Xray room 2 September 14, 2024 10:55am Carotid Artery, coming from Dr. Caba Apr 2024 12:34pm LUMBAR SPONDYLOSIS November 21, 2024 1:08pm MURMUR November 28, 2024 9:34a m EORDER November 29, 2024 2:11p m Atrial fibrillation December 11, 2024 1:57p m S/P R CEA December 12, 2024 12:30 pm COMPRESSION FRACTURE December 13, 2024 12:3 3pm Reason for Visit Admit Date Lumbar compression fracture August 10:44am Status post laminectomy September 14, 2 025 10:44am Carotid stenosis, bilateral November 14, 2024 12:34pm PAD (peripheral artery disease) November 142024 12:34pm Subclavian arterial stenosis November 14, 2024 12:34pm Atrial fibrillation December 11, 2024 1:57p m CAD (coronary artery disease) December 11, 2024 1:57pm Cardiomyopathy December 11, 2024 1:57p m Carotid stenosis, bilateral December 11 1:57pm Dyslipidemia December 11, 2024 1:57p m Erectile dysfunction December 11, 2024 1:57 pm Essential (primary) hypertension November 1:57pm Mitral insufficiency December 11, 2024 1:57 pm Reason for Referral Specialty Diagnoses / Procedures Referred By Mandeepac t Referred To Contact General Surgery Diagnoses Pain with swallowing Procedures CONSULT TO GENERAL SURGERY OFFICE/[facility]IENT [facility] 60-74 MINUTES Ruth Perez, CUSTOMER SALES CONSULTANT.GANG HEMSTITCHING MACHINE OPERATOR [address] [place] [address] Referral ID Status Reason Start Date Expiration Date Visits Requested Visits Authorized [id number] Pending Review PCP Requested Referral 07/29/2022 07/29/2023 1 1 Specialty Diagnoses / Procedures Referred By Nupur t Referred To Contact CT IMAGING Diagnoses Persistent atrial fibrillation (HCC) Dyspnea, unspecified type Procedures CTA CHEST (NONGATED) W IVCON CT ANGIOGRAPHY CHEST W/CONTRAST/NONCONTRAST Timothy Walker MD [address] [place] [id number] Fax: Ct Imaging Referral ID Status Reason Start Date Expiration Date Visits Requested Visits Authorized [id number] Authorized Auto-Generat ed Referral 03/22/2023 01/29/2024 1 1 Specialty Diagnoses / Procedures Referred By Nupur t Referred To Contact [facility] Diagnoses Persistent atrial fibrillation (HCC) Dyspnea, unspecified type Procedures ECHO ECHO TTHRC R-T 2D W/WOM-MODE COMPL SPEC&COLR D Timothy Walekr MD [address] [place] [id number] [facility] [address] [place] [address] Referral ID Status Reason Start Date Expiration Date Visits Requested Visits Authorized [id number] Authorized Auto-Generat ed Referral 03/22/2023 12/30/2023 1 1 Specialty Diagnoses / Procedures Referred By Contac t Referred To Contact CT IMAGING Diagnoses Dizziness Tinnitus, unspecified laterality Procedures CTA NECK W IVCON CT ANGIOGRAPHY NECK W/CONTRAST/NONCONTRAST Ruth Perez, AL.GANG HEMSTITCHING MACHINE OPERATOR [address] [place] [address] Ct Imaging [facility] Referral ID Status Reason Start Date Expiration Date Visits Requested Visits Authorized [id number] Authorized Auto-Generat ed Referral 06/07/2024 1 1 Specialty Diagnoses / Procedures Referred By Contac t Referred To Contact CT IMAGING Diagnoses Dizziness Tinnitus, unspecified laterality Procedures CTA HEAD WO/W IVCON CT ANGIOGRAPHY HEAD W/CONTRAST/NONCONTRAST Ruth Perez, AL.GANG HEMSTITCHING MACHINE OPERATOR [address] [place] [address] Ct Imaging [facility] Referral ID Status Reason Start Date Expiration Date Visits Requested Visits Authorized [id number] Authorized Auto-Generat ed Referral 06/07/2024 1 1 Referral ID Status Reason Start Date Expiration Date V isits Requested Visits Authorized [id number] Closed Auto-Generate d Referral 05/09/2023 06/07/2024 1 1 Referral ID Status Reason Start Date Expiration Date V isits Requested Visits Authorized [id number] Closed Auto-Generate d Referral 05/09/2023 06/07/2024 1 1 Specialty Diagnoses / Procedures Referred By Contac t Referred To Contact Hematology Diagnoses Anemia, unspecified type Procedures CONSULT TO HEMATOLOGY OFFICE/[facility]IENT [facility] 60 MINUTES Federico Vigil MD [address] [place] [address] Referral ID Status Reason Start Date Expiration Date Visits Requested Visits Authorized [id number] Authorized PCP Requested Referral 08/18/2023 08/17/2024 1 1 Specialty Diagnoses / Procedures Referred By Contac t Referred To Contact CT IMAGING Diagnoses Carotid stenosis, asymptomatic, bilateral Amaurosis fugax of right eye Procedures CTA NECK W IVCON CTA NECK W IVCON CT ANGIOGRAPHY NECK W/CONTRAST/NONCONTRAST Elena Watkins, CUSTOMER SALES CONSULTANT.GANG HEMSTITCHING MACHINE OPERATOR [address] [place] [address] [place] [address] Referral ID Status Reason Start Date Expiration Date V isits Requested Visits Authorized [id number] Closed Auto-Generat ed Referral Patient Cleared - Admin/Chairm an/Director advise to proceed or did not respond 11/11/2023 05/09/2024 1 1 Specialty Diagnoses / Procedures Referred By Contac t Referred To Contact CT IMAGING Diagnoses Carotid stenosis, asymptomatic, bilateral Amaurosis fugax of right eye Procedures CTA HEAD W IVCON CT ANGIOGRAPHY HEAD W/CONTRAST/NONCONTRAST Elena Watkins, CUSTOMER SALES CONSULTANT.GANG HEMSTITCHING MACHINE OPERATOR [address] [place] [address] [place] [address] [address] [place] [address] Referral ID Status Reason Start Date Expiration Date Visits Requested Visits Authorized [id number] Pending Review Auto-Generat ed Referral 11/11/2023 12/10/2024 1 1 Specialty Diagnoses / Procedures Referred By Contac t Referred To Contact CT IMAGING Diagnoses Carotid stenosis, asymptomatic, bilateral Amaurosis fugax of right eye Procedures CTA HEAD W IVCON CT ANGIOGRAPHY HEAD W/CONTRAST/NONCONTRAST CT ANGIOGRAPHY NECK W/CONTRAST/NONCONTRAST Elena Watkins, CUSTOMER SALES CONSULTANT.GANG HEMSTITCHING MACHINE OPERATOR [address] [place] [address] [place] [address] Referral ID Status Reason Start Date Expiration Date Visits Requested Visits Authorized [id number] Authorized Auto-Generat ed Referral 07/18/2023 07/17/2024 2 2 Specialty Diagnoses / Procedures Referred By Contac t Referred To Contact CT IMAGING Diagnoses Amaurosis fugax Procedures CTA NECK W IVCON CT ANGIOGRAPHY NECK W/CONTRAST/NONCONTRAST Phi Caba MD [address] [place] [address] [place] [address] [place] [address] Referral ID Status Reason Start Date Expiration Date Visits Re quested Visits Authorized [id number] Closed 11/18/2023 07/17/2024 1 1 Specialty Diagnoses / Procedures Referred By Contac t Referred To Contact CT IMAGING Diagnoses Occlusion and stenosis of unspecified carotid artery Procedures CTA HEAD W IVCON CT ANGIOGRAPHY HEAD W/CONTRAST/NONCONTRAST Phi Caba MD [address] [facility] [address] [place] [address] [place] [address] Referral ID Status Reason Start Date Expiration Date Visits Re quested Visits Authorized [id number] Closed 11/18/2023 07/17/2024 1 1 Specialty Diagnoses / Procedures Referred By Contac t Referred To Contact Diagnoses Post-op pain Elena Watkins APRN.GANG HEMSTITCHING MACHINE OPERATOR [address] [facility] [address] [place] [address] Referral ID Status Reason Start Date Expiration Date Visits Re quested Visits Authorized [id number] Closed 1 1 Additional Source Comments (unrecognized sect ion and content) No Status Records FoundNo Status Records FoundNo Status Records FoundNo Status Records FoundNo Status Records FoundNo Status Records Found INFORMATION SOURCE (unrecogn ized section and content) DATE CREATED AUTHOR 01/21/2018 [facility] DATE CREATED AUTHOR AUTHOR'S ORGANIZ ATION 10/20/2022 [facility] DATE CREATED AUTHOR AUTHOR'S ORGANIZ ATION 05/24/2023 [facility] DATE CREATED AUTHOR AUTHOR'S ORGANIZ ATION 02/01/2024 [facility] DATE CREATED AUTHOR AUTHOR'S ORGANIZ ATION 12/13/2024 [facility] DATE CREATED AUTHOR AUTHOR'S ORGANIZ ATION 01/08/2025 [facility] Reason for Visit (unrecogniz ed section and content) Reason Comments Established Patient Specialty Diagnoses / Procedures Referred By Contac t Referred To Contact Diagnoses Iron deficiency anemia, unspecified iron deficiency anemia type Procedures IRON SUCROSE INJECTION PER 1 MG David Lundberg [address] [place] [address] [facility] [address] [place] [address] Referral ID Status Reason Start Date Expiration Date V isits Requested Visits Authorized [id number] Authorized 09/02/2023 07/17/2024 99 99 Reason For Visit Description Start Date Follow-up by complaint Preliminary reason f or visit data, not yet signed by the author as of right knee Reason Onset Date Comments Refill Request 10/15/2021 Reason Comments Refill Request Reason Comments Follow Up Pain Toe Injury Reason Comments Acute Visit cramping in calves Reason Comments Results Labs Reason Comments Appointment Reason Onset Date Comments Refill Request Refill Request 03/01/2022 Reason Comments Carotid artery stenosis Shel[place] is former Dr. Dean pt here to review 02/05/22 US Reason Onset Date Comments Refill Request 03/06/2022 [...] Exam Reason Comments patient update/requesting medication ph. [phone] Reason Comments Patient Update Patient Question Reason Comments New Patient Ref [facility] for a-fib discuss ablation Reason Comments Preparations For Procedures Reason Comments Orders Reason Comments Wellness Reason Comments Appointment Annual f/up with rupal chiu BRIANNA Reason Comments Patient Update Head pain and blurre d vision Reason Comments [facility] Reason Comments CARD Follow Up 3 Month S/p PVI Specialty Diagnoses / Procedures Referred By Nupur t Referred To Contact CT IMAGING Diagnoses Persistent atrial fibrillation (HCC) Dyspnea, unspecified type Procedures CTA CHEST (NONGATED) W IVCON CT ANGIOGRAPHY CHEST W/CONTRAST/NONCONTRAST Timothy Walker MD [address] [place] [address] [place] [address] Referral ID Status Reason Start Date Expiration Date V isits Requested Visits Authorized [id number] Closed Auto-Generate d Referral 03/22/2023 01/29/2024 1 1 Reason Comments Rash Rash on ankle and sw ollen toe right foot Reason Comments Consult EGD, pain with swall owing, 04/13/2023 [facility] Specialty Diagnoses / Procedures Referred By Contac t Referred To Contact General Surgery Diagnoses Pain with swallowing Procedures CONSULT TO GENERAL SURGERY OFFICE/[facility]IENT [facility] 60-74 MINUTES Ruth Perez, CUSTOMER SALES CONSULTANT.GANG HEMSTITCHING MACHINE OPERATOR [address] [place] [address] Referral ID Status Reason Start Date Expiration Date Visits Requested Visits Authorized [id number] Pending Review PCP Requested Referral 07/29/2022 07/29/2023 1 1 Reason Comments Acute Visit continued dizziness, neck ear pain, tinnitis Reason Comments GIPRE OP CALL Reason Comments Radiology US Specialty Diagnoses / Procedures Referred By Contac t Referred To Contact US IMAGING Diagnoses Enlarged thyroid Procedures US THYROID/PARATHYROID US SOFT TISSUE HEAD & NECK REAL TIME IMGE DOCM Ruth Perez, CUSTOMER SALES CONSULTANT.GANG HEMSTITCHING MACHINE OPERATOR [address] [place] [address] [place] [address] Referral ID Status Reason Start Date Expiration Date V isits Requested Visits Authorized [id number] Closed Auto-Generate d Referral 04/06/2023 05/05/2024 1 1 Reason Comments Radiology US Referral ID Status Reason Start Date Expiration Date V isits Requested Visits Authorized [id number] Closed Auto-Generate d Referral 07/21/2022 08/20/2023 1 1 Reason Comments Patient Question Questions regarding results Reason Comments Radiology CT Specialty Diagnoses / Procedures Referred By Contac t Referred To Contact CT IMAGING Diagnoses Dizziness Tinnitus, unspecified laterality Procedures CTA NECK W IVCON CT ANGIOGRAPHY NECK W/CONTRAST/NONCONTRAST Ruth Perez, CUSTOMER SALES CONSULTANT.GANG HEMSTITCHING MACHINE OPERATOR [address] [place] [address] [place] [address] Referral ID Status Reason Start Date Expiration Date V isits Requested Visits Authorized [id number] Closed Auto-Generate d Referral 05/09/2023 06/07/2024 [address] Head/Neck Reason Comments Follow Up colonoscopy Reason Comments CARD Follow Up 3 Month Paroxysmal atrial fibrillation Reason Comments New Patient Specialty Diagnoses / Procedures Referred By Contac t Referred To Contact Hematology Diagnoses Anemia, unspecified type Procedures CONSULT TO HEMATOLOGY OFFICE/OUTPATIENT NEW HIGH MDM 60 MINUTES Federico Vigil MD [address] [place] [address] Referral ID Status Reason Start Date Expiration Date V isits Requested Visits Authorized [id number] Closed PCP Requested Referral 08/18/2023 08/17/2024 1 1 Reason Comments Knee Pain left knee pain x 4 d ays Reason Comments Non-Chemotherapy Treatment Reason Comments Social Work Services Reason Comments AVS 10/27/23 Reason Comments Requesting testing Reason Comments Patient Update Vision loss Reason Comments Results Specialty Diagnoses / [facility] Diagnoses Carotid stenosis, asymptomatic, bilateral Amaurosis fugax of right eye Procedures CTA NECK W IVCON CTA NECK W IVCON CT ANGIOGRAPHY NECK W/CONTRAST/NONCONTRAST Elena Watkins, CUSTOMER SALES CONSULTANT.GANG HEMSTITCHING MACHINE OPERATOR [address] [place] [address] [place] [address] Referral ID Status Reason Start Date Expiration Date V isits Requested Visits Authorized [id number] Closed Auto-Generat ed Referral Patient Cleared - Admin/Chairm an/Director advise to proceed or did not respond 11/11/2023 05/09/2024 1 1 Specialty Diagnoses / Procedures [facility] CT [facility] Diagnoses Amaurosis fugax Procedures CTA NECK W IVCON CT ANGIOGRAPHY NECK W/CONTRAST/NONCONTRAST Phi Caba MD [address] [place] [address] Ct [place] [id number] Referral ID Status Reason Start Date Expiration Date Visits Re quested Visits Authorized [id number] Closed 11/18/2023 07/17/2024 [address] scan results Reason Comments Established Patient Follow Up Stenosis Carotid stenosis Reason Comments Carotid artery stenosis [facility] is here t o review testing Reason Comments Schedule Surgery Reason Onset Date Comments Refill Request 12/23/2023 Reason Comments CARD Follow Up 6 Month Afib Reason Comments Patient Update Swelling in the neck Reason Comments Patient Update Reason Comments F/U 6 Month Reason Comments Post Op 12/26/23 Rt CEA Reason Comments Future Appointment Reason Comments Schedule Surgery Reason Comments Back Pain Reason Comments Patient Update Medication Request Reason Comments Acute Visit rash on right leg Referral ID Status Reason Start Date Expiration Date Visits Re quested Visits Authorized [id number] Closed 09/02/2023 07/17/2024 99 99 Reason Onset Date Comments Refill Request 05/16/2024 Reason Onset Date Comments Refill Request 05/18/2024 Reason Comments Acute Visit lingering cough and cold Reason Comments Acute Visit Low back pain Reason Comments Forms Medical Clearance Reason Comments Pre-Op Exam Reason Comments Results and Form Reason Comments Agree to follow for [facility] PT OT Reason Comments PT Plan of Care Medication Clarification Request Reason Comments Results labs Reason Onset Date Comments Refill Request 08/02/2024 Reason Comments Left Knee Pain X this AM, possible gout, redness and warmth Reason Comments Follow Up UC follow up for gou t. Possible cold Reason Comments Acute Visit flu/cough/fever Reason Onset Date Comments Results 09/03/2024 Chest Xray Reason Comments Follow Up Source Comments (unrecognize d section and content) In the event this informatio n is protected by the Federal Confidentiality of Alcohol and Drug Abuse Patient Records regulations: The Federal rules restrict any use of the information to criminally investigate or prosecute any alcohol or drug abuse patient.[facility] SystemIn the event this information is protected by the Federal Confidentiality of Alcohol and Drug Abuse Patient Records regulations: The Federal rules restrict any use of the information to criminally investigate or prosecute any alcohol or drug abuse patient.[facility] SystemIn the event this information is protected by the Federal Confidentiality of Alcohol and Drug Abuse Patient Records regulations: The Federal rules restrict any use of the information to criminally investigate or prosecute any alcohol or drug abuse patient.[facility] SystemIn the event this information is protected by the Federal Confidentiality of Alcohol and Drug Abuse Patient Records regulations: The Federal rules restrict any use of the information to criminally investigate or prosecute any alcohol or drug abuse patient.[facility] SystemIn the event this information is protected by the Federal Confidentiality of Alcohol and Drug Abuse Patient Records regulations: The Federal rules restrict any use of the information to criminally investigate or prosecute any alcohol or drug abuse patient.[facility] SystemIn the event this information is protected by the Federal Confidentiality of Alcohol and Drug Abuse Patient Records regulations: The Federal rules restrict any use of the information to criminally investigate or prosecute any alcohol or drug abuse patient.[facility] SystemIn the event this information is protected by the Federal Confidentiality of Alcohol and Drug Abuse Patient Records regulations: The Federal rules restrict any use of the information to criminally investigate or prosecute any alcohol or drug abuse patient.[facility] SystemIn the event this information is protected by the Federal Confidentiality of Alcohol and Drug Abuse Patient Records regulations: The Federal rules restrict any use of the information to criminally investigate or prosecute any alcohol or drug abuse patient.[facility] SystemIn the event this information is protected by the Federal Confidentiality of Alcohol and Drug Abuse Patient Records regulations: The Federal rules restrict any use of the information to criminally investigate or prosecute any alcohol or drug abuse patient.[facility] SystemIn the event this information is protected by the Federal Confidentiality of Alcohol and Drug Abuse Patient Records regulations: The Federal rules restrict any use of the information to criminally investigate or prosecute any alcohol or drug abuse patient.[facility] SystemIn the event this information is protected by the Federal Confidentiality of Alcohol and Drug Abuse Patient Records regulations: The Federal rules restrict any use of the information to criminally investigate or prosecute any alcohol or drug abuse patient.[facility] SystemIn the event this information is protected by the Federal Confidentiality of Alcohol and Drug Abuse Patient Records regulations: The Federal rules restrict any use of the information to criminally investigate or prosecute any alcohol or drug abuse patient.[facility] SystemIn the event this information is protected by the Federal Confidentiality of Alcohol and Drug Abuse Patient Records regulations: The Federal rules restrict any use of the information to criminally investigate or prosecute any alcohol or drug abuse patient.[facility] SystemIn the event this information is protected by the Federal Confidentiality of Alcohol and Drug Abuse Patient Records regulations: The Federal rules restrict any use of the information to criminally investigate or prosecute any alcohol or drug abuse patient.[facility] SystemIn the event this information is protected by the Federal Confidentiality of Alcohol and Drug Abuse Patient Records regulations: The Federal rules restrict any use of the information to criminally investigate or prosecute any alcohol or drug abuse patient.[facility] SystemIn the event this information is protected by the Federal Confidentiality of Alcohol and Drug Abuse Patient Records regulations: The Federal rules restrict any use of the information to criminally investigate or prosecute any alcohol or drug abuse patient.[facility] SystemIn the event this information is protected by the Federal Confidentiality of Alcohol and Drug Abuse Patient Records regulations: The Federal rules restrict any use of the information to criminally investigate or prosecute any alcohol or drug abuse patient.[facility] SystemIn the event this information is protected by the Federal Confidentiality of Alcohol and Drug Abuse Patient Records regulations: The Federal rules restrict any use of the information to criminally investigate or prosecute any alcohol or drug abuse patient.[facility] SystemIn the event this information is protected by the Federal Confidentiality of Alcohol and Drug Abuse Patient Records regulations: The Federal rules restrict any use of the information to criminally investigate or prosecute any alcohol or drug abuse patient.[facility] SystemIn the event this information is protected by the Federal Confidentiality of Alcohol and Drug Abuse Patient Records regulations: The Federal rules restrict any use of the information to criminally investigate or prosecute any alcohol or drug abuse patient.[facility] SystemIn the event this information is protected by the Federal Confidentiality of Alcohol and Drug Abuse Patient Records regulations: The Federal rules restrict any use of the information to criminally investigate or prosecute any alcohol or drug abuse patient.[facility] SystemIn the event this information is protected by the Federal Confidentiality of Alcohol and Drug Abuse Patient Records regulations: The Federal rules restrict any use of the information to criminally investigate or prosecute any alcohol or drug abuse patient.[facility] SystemIn the event this information is protected by the Federal Confidentiality of Alcohol and Drug Abuse Patient Records regulations: The Federal rules restrict any use of the information to criminally investigate or prosecute any alcohol or drug abuse patient.[facility] SystemIn the event this information is protected by the Federal Confidentiality of Alcohol and Drug Abuse Patient Records regulations: The Federal rules restrict any use of the information to criminally investigate or prosecute any alcohol or drug abuse patient.[facility] SystemIn the event this information is protected by the Federal Confidentiality of Alcohol and Drug Abuse Patient Records regulations: The Federal rules restrict any use of the information to criminally investigate or prosecute any alcohol or drug abuse patient.[facility] SystemIn the event this information is protected by the Federal Confidentiality of Alcohol and Drug Abuse Patient Records regulations: The Federal rules restrict any use of the information to criminally investigate or prosecute any alcohol or drug abuse patient.[facility] SystemIn the event this information is protected by the Federal Confidentiality of Alcohol and Drug Abuse Patient Records regulations: The Federal rules restrict any use of the information to criminally investigate or prosecute any alcohol or drug abuse patient.[facility] SystemIn the event this information is protected by the Federal Confidentiality of Alcohol and Drug Abuse Patient Records regulations: The Federal rules restrict any use of the information to criminally investigate or prosecute any alcohol or drug abuse patient.[facility] SystemIn the event this information is protected by the Federal Confidentiality of Alcohol and Drug Abuse Patient Records regulations: The Federal rules restrict any use of the information to criminally investigate or prosecute any alcohol or drug abuse patient.[facility] SystemIn the event this information is protected by the Federal Confidentiality of Alcohol and Drug Abuse Patient Records regulations: The Federal rules restrict any use of the information to criminally investigate or prosecute any alcohol or drug abuse patient.[facility] SystemIn the event this information is protected by the Federal Confidentiality of Alcohol and Drug Abuse Patient Records regulations: The Federal rules restrict any use of the information to criminally investigate or prosecute any alcohol or drug abuse patient.[facility] SystemIn the event this information is protected by the Federal Confidentiality of Alcohol and Drug Abuse Patient Records regulations: The Federal rules restrict any use of the information to criminally investigate or prosecute any alcohol or drug abuse patient.[facility] SystemIn the event this information is protected by the Federal Confidentiality of Alcohol and Drug Abuse Patient Records regulations: The Federal rules restrict any use of the information to criminally investigate or prosecute any alcohol or drug abuse patient.[facility] SystemIn the event this information is protected by the Federal Confidentiality of Alcohol and Drug Abuse Patient Records regulations: The Federal rules restrict any use of the information to criminally investigate or prosecute any alcohol or drug abuse patient.[facility] SystemIn the event this information is protected by the Federal Confidentiality of Alcohol and Drug Abuse Patient Records regulations: The Federal rules restrict any use of the information to criminally investigate or prosecute any alcohol or drug abuse patient.[facility] SystemIn the event this information is protected by the Federal Confidentiality of Alcohol and Drug Abuse Patient Records regulations: The Federal rules restrict any use of the information to criminally investigate or prosecute any alcohol or drug abuse patient.[facility] SystemIn the event this information is protected by the Federal Confidentiality of Alcohol and Drug Abuse Patient Records regulations: The Federal rules restrict any use of the information to criminally investigate or prosecute any alcohol or drug abuse patient.[facility] SystemIn the event this information is protected by the Federal Confidentiality of Alcohol and Drug Abuse Patient Records regulations: The Federal rules restrict any use of the information to criminally investigate or prosecute any alcohol or drug abuse patient.[facility] SystemIn the event this information is protected by the Federal Confidentiality of Alcohol and Drug Abuse Patient Records regulations: The Federal rules restrict any use of the information to criminally investigate or prosecute any alcohol or drug abuse patient.[facility] SystemIn the event this information is protected by the Federal Confidentiality of Alcohol and Drug Abuse Patient Records regulations: The Federal rules restrict any use of the information to criminally investigate or prosecute any alcohol or drug abuse patient.[facility] SystemIn the event this information is protected by the Federal Confidentiality of Alcohol and Drug Abuse Patient Records regulations: The Federal rules restrict any use of the information to criminally investigate or prosecute any alcohol or drug abuse patient.[facility] SystemIn the event this information is protected by the Federal Confidentiality of Alcohol and Drug Abuse Patient Records regulations: The Federal rules restrict any use of the information to criminally investigate or prosecute any alcohol or drug abuse patient.[facility] SystemIn the event this information is protected by the Federal Confidentiality of Alcohol and Drug Abuse Patient Records regulations: The Federal rules restrict any use of the information to criminally investigate or prosecute any alcohol or drug abuse patient.[facility] SystemIn the event this information is protected by the Federal Confidentiality of Alcohol and Drug Abuse Patient Records regulations: The Federal rules restrict any use of the information to criminally investigate or prosecute any alcohol or drug abuse patient.[facility] SystemIn the event this information is protected by the Federal Confidentiality of Alcohol and Drug Abuse Patient Records regulations: The Federal rules restrict any use of the information to criminally investigate or prosecute any alcohol or drug abuse patient.[facility] SystemIn the event this information is protected by the Federal Confidentiality of Alcohol and Drug Abuse Patient Records regulations: The Federal rules restrict any use of the information to criminally investigate or prosecute any alcohol or drug abuse patient.[facility] SystemIn the event this information is protected by the Federal Confidentiality of Alcohol and Drug Abuse Patient Records regulations: The Federal rules restrict any use of the information to criminally investigate or prosecute any alcohol or drug abuse patient.[facility] SystemIn the event this information is protected by the Federal Confidentiality of Alcohol and Drug Abuse Patient Records regulations: The Federal rules restrict any use of the information to criminally investigate or prosecute any alcohol or drug abuse patient.[facility] SystemIn the event this information is protected by the Federal Confidentiality of Alcohol and Drug Abuse Patient Records regulations: The Federal rules restrict any use of the information to criminally investigate or prosecute any alcohol or drug abuse patient.[facility] SystemIn the event this information is protected by the Federal Confidentiality of Alcohol and Drug Abuse Patient Records regulations: The Federal rules restrict any use of the information to criminally investigate or prosecute any alcohol or drug abuse patient.[facility] SystemIn the event this information is protected by the Federal Confidentiality of Alcohol and Drug Abuse Patient Records regulations: The Federal rules restrict any use of the information to criminally investigate or prosecute any alcohol or drug abuse patient.[facility] SystemIn the event this information is protected by the Federal Confidentiality of Alcohol and Drug Abuse Patient Records regulations: The Federal rules restrict any use of the information to criminally investigate or prosecute any alcohol or drug abuse patient.[facility] SystemIn the event this information is protected by the Federal Confidentiality of Alcohol and Drug Abuse Patient Records regulations: The Federal rules restrict any use of the information to criminally investigate or prosecute any alcohol or drug abuse patient.[facility] SystemIn the event this information is protected by the Federal Confidentiality of Alcohol and Drug Abuse Patient Records regulations: The Federal rules restrict any use of the information to criminally investigate or prosecute any alcohol or drug abuse patient.[facility] SystemIn the event this information is protected by the Federal Confidentiality of Alcohol and Drug Abuse Patient Records regulations: The Federal rules restrict any use of the information to criminally investigate or prosecute any alcohol or drug abuse patient.[facility] SystemIn the event this information is protected by the Federal Confidentiality of Alcohol and Drug Abuse Patient Records regulations: The Federal rules restrict any use of the information to criminally investigate or prosecute any alcohol or drug abuse patient.[facility] SystemIn the event this information is protected by the Federal Confidentiality of Alcohol and Drug Abuse Patient Records regulations: The Federal rules restrict any use of the information to criminally investigate or prosecute any alcohol or drug abuse patient.[facility] SystemIn the event this information is protected by the Federal Confidentiality of Alcohol and Drug Abuse Patient Records regulations: The Federal rules restrict any use of the information to criminally investigate or prosecute any alcohol or drug abuse patient.[facility] SystemIn the event this information is protected by the Federal Confidentiality of Alcohol and Drug Abuse Patient Records regulations: The Federal rules restrict any use of the information to criminally investigate or prosecute any alcohol or drug abuse patient.[facility] SystemIn the event this information is protected by the Federal Confidentiality of Alcohol and Drug Abuse Patient Records regulations: The Federal rules restrict any use of the information to criminally investigate or prosecute any alcohol or drug abuse patient.[facility] SystemIn the event this information is protected by the Federal Confidentiality of Alcohol and Drug Abuse Patient Records regulations: The Federal rules restrict any use of the information to criminally investigate or prosecute any alcohol or drug abuse patient.[facility] SystemIn the event this information is protected by the Federal Confidentiality of Alcohol and Drug Abuse Patient Records regulations: The Federal rules restrict any use of the information to criminally investigate or prosecute any alcohol or drug abuse patient.[facility] SystemIn the event this information is protected by the Federal Confidentiality of Alcohol and Drug Abuse Patient Records regulations: The Federal rules restrict any use of the information to criminally investigate or prosecute any alcohol or drug abuse patient.[facility] SystemIn the event this information is protected by the Federal Confidentiality of Alcohol and Drug Abuse Patient Records regulations: The Federal rules restrict any use of the information to criminally investigate or prosecute any alcohol or drug abuse patient.[facility] SystemIn the event this information is protected by the Federal Confidentiality of Alcohol and Drug Abuse Patient Records regulations: The Federal rules restrict any use of the information to criminally investigate or prosecute any alcohol or drug abuse patient.[facility] SystemIn the event this information is protected by the Federal Confidentiality of Alcohol and Drug Abuse Patient Records regulations: The Federal rules restrict any use of the information to criminally investigate or prosecute any alcohol or drug abuse patient.[facility] SystemIn the event this information is protected by the Federal Confidentiality of Alcohol and Drug Abuse Patient Records regulations: The Federal rules restrict any use of the information to criminally investigate or prosecute any alcohol or drug abuse patient.[facility] SystemIn the event this information is protected by the Federal Confidentiality of Alcohol and Drug Abuse Patient Records regulations: The Federal rules restrict any use of the information to criminally investigate or prosecute any alcohol or drug abuse patient.[facility] SystemIn the event this information is protected by the Federal Confidentiality of Alcohol and Drug Abuse Patient Records regulations: The Federal rules restrict any use of the information to criminally investigate or prosecute any alcohol or drug abuse patient.[facility] SystemIn the event this information is protected by the Federal Confidentiality of Alcohol and Drug Abuse Patient Records regulations: The Federal rules restrict any use of the information to criminally investigate or prosecute any alcohol or drug abuse patient.[facility] SystemIn the event this information is protected by the Federal Confidentiality of Alcohol and Drug Abuse Patient Records regulations: The Federal rules restrict any use of the information to criminally investigate or prosecute any alcohol or drug abuse patient.[facility] SystemIn the event this information is protected by the Federal Confidentiality of Alcohol and Drug Abuse Patient Records regulations: The Federal rules restrict any use of the information to criminally investigate or prosecute any alcohol or drug abuse patient.[facility] SystemIn the event this information is protected by the Federal Confidentiality of Alcohol and Drug Abuse Patient Records regulations: The Federal rules restrict any use of the information to criminally investigate or prosecute any alcohol or drug abuse patient.[facility] SystemIn the event this information is protected by the Federal Confidentiality of Alcohol and Drug Abuse Patient Records regulations: The Federal rules restrict any use of the information to criminally investigate or prosecute any alcohol or drug abuse patient.[facility] SystemIn the event this information is protected by the Federal Confidentiality of Alcohol and Drug Abuse Patient Records regulations: The Federal rules restrict any use of the information to criminally investigate or prosecute any alcohol or drug abuse patient.[facility] SystemIn the event this information is protected by the Federal Confidentiality of Alcohol and Drug Abuse Patient Records regulations: The Federal rules restrict any use of the information to criminally investigate or prosecute any alcohol or drug abuse patient.[facility] SystemIn the event this information is protected by the Federal Confidentiality of Alcohol and Drug Abuse Patient Records regulations: The Federal rules restrict any use of the information to criminally investigate or prosecute any alcohol or drug abuse patient.[facility] SystemIn the event this information is protected by the Federal Confidentiality of Alcohol and Drug Abuse Patient Records regulations: The Federal rules restrict any use of the information to criminally investigate or prosecute any alcohol or drug abuse patient.[facility] SystemIn the event this information is protected by the Federal Confidentiality of Alcohol and Drug Abuse Patient Records regulations: The Federal rules restrict any use of the information to criminally investigate or prosecute any alcohol or drug abuse patient.[facility] SystemIn the event this information is protected by the Federal Confidentiality of Alcohol and Drug Abuse Patient Records regulations: The Federal rules restrict any use of the information to criminally investigate or prosecute any alcohol or drug abuse patient.[facility] SystemIn the event this information is protected by the Federal Confidentiality of Alcohol and Drug Abuse Patient Records regulations: The Federal rules restrict any use of the information to criminally investigate or prosecute any alcohol or drug abuse patient.[facility] SystemIn the event this information is protected by the Federal Confidentiality of Alcohol and Drug Abuse Patient Records regulations: The Federal rules restrict any use of the information to criminally investigate or prosecute any alcohol or drug abuse patient.[facility] SystemIn the event this information is protected by the Federal Confidentiality of Alcohol and Drug Abuse Patient Records regulations: The Federal rules restrict any use of the information to criminally investigate or prosecute any alcohol or drug abuse patient.[facility] SystemIn the event this information is protected by the Federal Confidentiality of Alcohol and Drug Abuse Patient Records regulations: The Federal rules restrict any use of the information to criminally investigate or prosecute any alcohol or drug abuse patient.[facility] SystemIn the event this information is protected by the Federal Confidentiality of Alcohol and Drug Abuse Patient Records regulations: The Federal rules restrict any use of the information to criminally investigate or prosecute any alcohol or drug abuse patient.[facility] SystemIn the event this information is protected by the Federal Confidentiality of Alcohol and Drug Abuse Patient Records regulations: The Federal rules restrict any use of the information to criminally investigate or prosecute any alcohol or drug abuse patient.[facility] SystemIn the event this information is protected by the Federal Confidentiality of Alcohol and Drug Abuse Patient Records regulations: The Federal rules restrict any use of the information to criminally investigate or prosecute any alcohol or drug abuse patient.[facility] SystemIn the event this information is protected by the Federal Confidentiality of Alcohol and Drug Abuse Patient Records regulations: The Federal rules restrict any use of the information to criminally investigate or prosecute any alcohol or drug abuse patient.[facility] SystemIn the event this information is protected by the Federal Confidentiality of Alcohol and Drug Abuse Patient Records regulations: The Federal rules restrict any use of the information to criminally investigate or prosecute any alcohol or drug abuse patient.[facility] SystemIn the event this information is protected by the Federal Confidentiality of Alcohol and Drug Abuse Patient Records regulations: The Federal rules restrict any use of the information to criminally investigate or prosecute any alcohol or drug abuse patient.[facility] SystemIn the event this information is protected by the Federal Confidentiality of Alcohol and Drug Abuse Patient Records regulations: The Federal rules restrict any use of the information to criminally investigate or prosecute any alcohol or drug abuse patient.[facility] SystemIn the event this information is protected by the Federal Confidentiality of Alcohol and Drug Abuse Patient Records regulations: The Federal rules restrict any use of the information to criminally investigate or prosecute any alcohol or drug abuse patient.[facility] SystemIn the event this information is protected by the Federal Confidentiality of Alcohol and Drug Abuse Patient Records regulations: The Federal rules restrict any use of the information to criminally investigate or prosecute any alcohol or drug abuse patient.[facility] SystemIn the event this information is protected by the Federal Confidentiality of Alcohol and Drug Abuse Patient Records regulations: The Federal rules restrict any use of the information to criminally investigate or prosecute any alcohol or drug abuse patient.[facility] SystemIn the event this information is protected by the Federal Confidentiality of Alcohol and Drug Abuse Patient Records regulations: The Federal rules restrict any use of the information to criminally investigate or prosecute any alcohol or drug abuse patient.[facility] SystemIn the event this information is protected by the Federal Confidentiality of Alcohol and Drug Abuse Patient Records regulations: The Federal rules restrict any use of the information to criminally investigate or prosecute any alcohol or drug abuse patient.[facility] SystemIn the event this information is protected by the Federal Confidentiality of Alcohol and Drug Abuse Patient Records regulations: The Federal rules restrict any use of the information to criminally investigate or prosecute any alcohol or drug abuse patient.[facility] SystemIn the event this information is protected by the Federal Confidentiality of Alcohol and Drug Abuse Patient Records regulations: The Federal rules restrict any use of the information to criminally investigate or prosecute any alcohol or drug abuse patient.[facility] SystemIn the event this information is protected by the Federal Confidentiality of Alcohol and Drug Abuse Patient Records regulations: The Federal rules restrict any use of the information to criminally investigate or prosecute any alcohol or drug abuse patient.[facility] SystemIn the event this information is protected by the Federal Confidentiality of Alcohol and Drug Abuse Patient Records regulations: The Federal rules restrict any use of the information to criminally investigate or prosecute any alcohol or drug abuse patient.[facility] SystemIn the event this information is protected by the Federal Confidentiality of Alcohol and Drug Abuse Patient Records regulations: The Federal rules restrict any use of the information to criminally investigate or prosecute any alcohol or drug abuse patient.[facility] SystemIn the event this information is protected by the Federal Confidentiality of Alcohol and Drug Abuse Patient Records regulations: The Federal rules restrict any use of the information to criminally investigate or prosecute any alcohol or drug abuse patient.[facility] SystemIn the event this information is protected by the Federal Confidentiality of Alcohol and Drug Abuse Patient Records regulations: The Federal rules restrict any use of the information to criminally investigate or prosecute any alcohol or drug abuse patient.[facility] SystemIn the event this information is protected by the Federal Confidentiality of Alcohol and Drug Abuse Patient Records regulations: The Federal rules restrict any use of the information to criminally investigate or prosecute any alcohol or drug abuse patient.[facility] SystemIn the event this information is protected by the Federal Confidentiality of Alcohol and Drug Abuse Patient Records regulations: The Federal rules restrict any use of the information to criminally investigate or prosecute any alcohol or drug abuse patient.[facility] SystemIn the event this information is protected by the Federal Confidentiality of Alcohol and Drug Abuse Patient Records regulations: The Federal rules restrict any use of the information to criminally investigate or prosecute any alcohol or drug abuse patient.[facility] SystemIn the event this information is protected by the Federal Confidentiality of Alcohol and Drug Abuse Patient Records regulations: The Federal rules restrict any use of the information to criminally investigate or prosecute any alcohol or drug abuse patient.[facility] SystemIn the event this information is protected by the Federal Confidentiality of Alcohol and Drug Abuse Patient Records regulations: The Federal rules restrict any use of the information to criminally investigate or prosecute any alcohol or drug abuse patient.[facility] SystemIn the event this information is protected by the Federal Confidentiality of Alcohol and Drug Abuse Patient Records regulations: The Federal rules restrict any use of the information to criminally investigate or prosecute any alcohol or drug abuse patient.[facility] SystemIn the event this information is protected by the Federal Confidentiality of Alcohol and Drug Abuse Patient Records regulations: The Federal rules restrict any use of the information to criminally investigate or prosecute any alcohol or drug abuse patient.[facility] SystemIn the event this information is protected by the Federal Confidentiality of Alcohol and Drug Abuse Patient Records regulations: The Federal rules restrict any use of the information to criminally investigate or prosecute any alcohol or drug abuse patient.[facility] SystemIn the event this information is protected by the Federal Confidentiality of Alcohol and Drug Abuse Patient Records regulations: The Federal rules restrict any use of the information to criminally investigate or prosecute any alcohol or drug abuse patient.[facility] SystemIn the event this information is protected by the Federal Confidentiality of Alcohol and Drug Abuse Patient Records regulations: The Federal rules restrict any use of the information to criminally investigate or prosecute any alcohol or drug abuse patient.[facility] SystemIn the event this information is protected by the Federal Confidentiality of Alcohol and Drug Abuse Patient Records regulations: The Federal rules restrict any use of the information to criminally investigate or prosecute any alcohol or drug abuse patient.[facility] SystemIn the event this information is protected by the Federal Confidentiality of Alcohol and Drug Abuse Patient Records regulations: The Federal rules restrict any use of the information to criminally investigate or prosecute any alcohol or drug abuse patient.[facility] SystemIn the event this information is protected by the Federal Confidentiality of Alcohol and Drug Abuse Patient Records regulations: The Federal rules restrict any use of the information to criminally investigate or prosecute any alcohol or drug abuse patient.[facility] SystemIn the event this information is protected by the Federal Confidentiality of Alcohol and Drug Abuse Patient Records regulations: The Federal rules restrict any use of the information to criminally investigate or prosecute any alcohol or drug abuse patient.[facility] SystemIn the event this information is protected by the Federal Confidentiality of Alcohol and Drug Abuse Patient Records regulations: The Federal rules restrict any use of the information to criminally investigate or prosecute any alcohol or drug abuse patient.[facility] SystemIn the event this information is protected by the Federal Confidentiality of Alcohol and Drug Abuse Patient Records regulations: The Federal rules restrict any use of the information to criminally investigate or prosecute any alcohol or drug abuse patient.[facility] SystemIn the event this information is protected by the Federal Confidentiality of Alcohol and Drug Abuse Patient Records regulations: The Federal rules restrict any use of the information to criminally investigate or prosecute any alcohol or drug abuse patient.[facility] SystemIn the event this information is protected by the Federal Confidentiality of Alcohol and Drug Abuse Patient Records regulations: The Federal rules restrict any use of the information to criminally investigate or prosecute any alcohol or drug abuse patient.[facility] SystemIn the event this information is protected by the Federal Confidentiality of Alcohol and Drug Abuse Patient Records regulations: The Federal rules restrict any use of the information to criminally investigate or prosecute any alcohol or drug abuse patient.[facility] SystemIn the event this information is protected by the Federal Confidentiality of Alcohol and Drug Abuse Patient Records regulations: The Federal rules restrict any use of the information to criminally investigate or prosecute any alcohol or drug abuse patient.[facility] SystemIn the event this information is protected by the Federal Confidentiality of Alcohol and Drug Abuse Patient Records regulations: The Federal rules restrict any use of the information to criminally investigate or prosecute any alcohol or drug abuse patient.[facility] SystemIn the event this information is protected by the Federal Confidentiality of Alcohol and Drug Abuse Patient Records regulations: The Federal rules restrict any use of the information to criminally investigate or prosecute any alcohol or drug abuse patient.[facility] SystemIn the event this information is protected by the Federal Confidentiality of Alcohol and Drug Abuse Patient Records regulations: The Federal rules restrict any use of the information to criminally investigate or prosecute any alcohol or drug abuse patient.[facility] SystemIn the event this information is protected by the Federal Confidentiality of Alcohol and Drug Abuse Patient Records regulations: The Federal rules restrict any use of the information to criminally investigate or prosecute any alcohol or drug abuse patient.[facility] SystemIn the event this information is protected by the Federal Confidentiality of Alcohol and Drug Abuse Patient Records regulations: The Federal rules restrict any use of the information to criminally investigate or prosecute any alcohol or drug abuse patient.[facility] SystemIn the event this information is protected by the Federal Confidentiality of Alcohol and Drug Abuse Patient Records regulations: The Federal rules restrict any use of the information to criminally investigate or prosecute any alcohol or drug abuse patient.[facility] SystemIn the event this information is protected by the Federal Confidentiality of Alcohol and Drug Abuse Patient Records regulations: The Federal rules restrict any use of the information to criminally investigate or prosecute any alcohol or drug abuse patient.[facility] SystemIn the event this information is protected by the Federal Confidentiality of Alcohol and Drug Abuse Patient Records regulations: The Federal rules restrict any use of the information to criminally investigate or prosecute any alcohol or drug abuse patient.[facility] SystemIn the event this information is protected by the Federal Confidentiality of Alcohol and Drug Abuse Patient Records regulations: The Federal rules restrict any use of the information to criminally investigate or prosecute any alcohol or drug abuse patient.[facility] SystemIn the event this information is protected by the Federal Confidentiality of Alcohol and Drug Abuse Patient Records regulations: The Federal rules restrict any use of the information to criminally investigate or prosecute any alcohol or drug abuse patient.[facility] SystemIn the event this information is protected by the Federal Confidentiality of Alcohol and Drug Abuse Patient Records regulations: The Federal rules restrict any use of the information to criminally investigate or prosecute any alcohol or drug abuse patient.[facility] SystemIn the event this information is protected by the Federal Confidentiality of Alcohol and Drug Abuse Patient Records regulations: The Federal rules restrict any use of the information to criminally investigate or prosecute any alcohol or drug abuse patient.[facility] SystemIn the event this information is protected by the Federal Confidentiality of Alcohol and Drug Abuse Patient Records regulations: The Federal rules restrict any use of the information to criminally investigate or prosecute any alcohol or drug abuse patient.[facility] SystemIn the event this information is protected by the Federal Confidentiality of Alcohol and Drug Abuse Patient Records regulations: The Federal rules restrict any use of the information to criminally investigate or prosecute any alcohol or drug abuse patient.[facility] SystemIn the event this information is protected by the Federal Confidentiality of Alcohol and Drug Abuse Patient Records regulations: The Federal rules restrict any use of the information to criminally investigate or prosecute any alcohol or drug abuse patient.[facility] SystemIn the event this information is protected by the Federal Confidentiality of Alcohol and Drug Abuse Patient Records regulations: The Federal rules restrict any use of the information to criminally investigate or prosecute any alcohol or drug abuse patient.[facility] SystemIn the event this information is protected by the Federal Confidentiality of Alcohol and Drug Abuse Patient Records regulations: The Federal rules restrict any use of the information to criminally investigate or prosecute any alcohol or drug abuse patient.[facility] SystemIn the event this information is protected by the Federal Confidentiality of Alcohol and Drug Abuse Patient Records regulations: The Federal rules restrict any use of the information to criminally investigate or prosecute any alcohol or drug abuse patient.[facility] SystemIn the event this information is protected by the Federal Confidentiality of Alcohol and Drug Abuse Patient Records regulations: The Federal rules restrict any use of the information to criminally investigate or prosecute any alcohol or drug abuse patient.[facility] SystemIn the event this information is protected by the Federal Confidentiality of Alcohol and Drug Abuse Patient Records regulations: The Federal rules restrict any use of the information to criminally investigate or prosecute any alcohol or drug abuse patient.[facility] SystemIn the event this information is protected by the Federal Confidentiality of Alcohol and Drug Abuse Patient Records regulations: The Federal rules restrict any use of the information to criminally investigate or prosecute any alcohol or drug abuse patient.[facility] Care Teams (unrecognized sec tion and content) Center Consultant Relationship Specialty Start Date End Date Federico Vigil MD [address] [facility] [place] [address] PCP - General Family Practice 04/27/17 Center Consultant Relationship Specialty Start Date End Date Federico Vigil MD [address] [facility] [place] [address] PCP - General Family Practice 04/27/17 Center Consultant Relationship Specialty Start Date End Date Federico Vigil MD [address] [facility] [place] [address] PCP - General Family Practice 04/27/17 Center Consultant Relationship Specialty Start Date End Date Federico Vigil MD [address] [facility] [place] [address] PCP - General Family Practice 04/27/17 Center Consultant Relationship Specialty Start Date End Date Federico Vigil MD [address] [facility] [place] [address] PCP - General Family Practice 04/27/17 Center Consultant Relationship Specialty Start Date End Date Federico Vigil MD [address] [facility] [place] [address] PCP - General Family Practice 04/27/17 Center Consultant Relationship Specialty Start Date End Date Federico Vigil MD [address] [facility] [place] [address] PCP - General Family Practice 04/27/17 Center Consultant Relationship Specialty Start Date End Date Federico Vigil MD [address] [facility] [place] [address] PCP - General Family Medicine 04/27/17 Center Consultant Relationship Specialty Start Date End Date Federico Vigil MD [address] [facility] [place] [address] PCP - General Family Medicine 04/27/17 Center Consultant Relationship Specialty Start Date End Date Federico Vigil MD [address] [facility] [place] [address] PCP - General Family Medicine 04/27/17 Center Consultant Relationship Specialty Start Date End Date Federico Vigil MD [address] [facility] [place] [address] PCP - General Family Medicine 04/27/17 Center Consultant Relationship Specialty Start Date End Date Federico Vigil MD [address] [facility] [place] [address] PCP - General Family Medicine 04/27/17 Center Consultant Relationship Specialty Start Date End Date Federico Vigil MD [address] [facility] [place] [address] PCP - General Family Medicine 04/27/17 Center Consultant Relationship Specialty Start Date End Date Federico Vigil MD [address] [facility] [place] [address] PCP - General Family Medicine 04/27/17 Center Consultant Relationship Specialty Start Date End Date Federico Vigil MD [address] [facility] [place] [address] PCP - General Family Medicine 04/27/17 Center Consultant Relationship Specialty Start Date End Date Federico Vigil MD [address] [facility] [place] [address] PCP - General Family Medicine 04/27/17 Center Consultant Relationship Specialty Start Date End Date Federico Vigil MD [address] [facility] [place] [address] PCP - General Family Medicine 04/27/17 Center Consultant Relationship Specialty Start Date End Date Federico Vigil MD [address] [facility] [place] [address] PCP - General Family Medicine 04/27/17 Center Consultant Relationship Specialty Start Date End Date Federico Vigil MD [address] [place] [address] PCP - General Family Medicine 04/27/17 Center Consultant Relationship Specialty Start Date End Date Federico Vigil MD [address] [place] [address] PCP - General Family Medicine 04/27/17 Center Consultant Relationship Specialty Start Date End Date Federico Vigil MD [address] [place] [address] PCP - General Family Medicine 04/27/17 Center Consultant Relationship Specialty Start Date End Date Federico Vigil MD [address] [place] [address] PCP - General Family Medicine 04/27/17 Center Consultant Relationship Specialty Start Date End Date Federico Vigil MD [address] [place] [address] PCP - General Family Medicine 04/27/17 Center Consultant Relationship Specialty Start Date End Date Federico Vigil MD [address] [place] [address] PCP - General Family Medicine 04/27/17 Team Status: Active Member Role Status Dates Dr. Federico Vigil MD Family Provider Active Dr. Federico Vigil MD Primary Care Provider Active Team Status: Active Member Role Status Dates Dr. Federico Vigil MD Primary Care Provider Active Dr. Miller Alexandre MD Attending Provider Active Dr. Keiko Munguia MD Referring Provider Active Team Status: Inactive Member Role Status Dates Dr. Federico Vigil MD Primary Care Provider, Referr ing Provider Active Dr. Osbaldo Vernon MD Attending Provider Active Team Status: Active Member Role Status Dates Dr. Federico Vigil MD Primary Care Provider Active Dr. Osbaldo Vernon MD Attending Provider , Referring Provider, Other Provider Active Team Status: Inactive Member Role Status Dates Dr. Federico Vigil MD Primary Care Provider Active Dr. Keiko Munguia MD Attending Provider, Emergency Provider Active Team Status: Inactive Member Role Status Dates Dr. Federico Vigil MD Primary Care Provider Active Dr. Keiko Munguia MD Attending Provider, Referring Provider Active Team Status: Inactive Member Role Status Dates Dr. Federico Vigil MD Primary Care Provider Active Dr. Osbaldo Vernon MD Attending Provider, Referring Pr ovider Active Center Consultant Relationship Specialty Start Date End Date Federico Vigil MD [address] [place] [address] PCP - General Family Medicine 04/27/17 Center Consultant Relationship Specialty Start Date End Date Federico Vigil MD [address] [place] [address] PCP - General Family Medicine 04/27/17 Center Consultant Relationship Specialty Start Date End Date Federico Vigil MD [address] [place] [address] PCP - General Family Medicine 04/27/17 Center Consultant Relationship Specialty Start Date End Date Federico Vigil MD [address] [place] [address] PCP - General Family Medicine 04/27/17 Team Status: Active Member Role Status Dates Dr. Federico Vigil MD Primary Care Provider Active Dr. Osbaldo Vernon MD Attending Provider Active Team Status: Active Member Role Status Dates Dr. Federico Vigil MD Primary Care Provider Active Karine Chiang Attending Provider Active Team Status: Inactive Member Role Status Dates Dr. Federico Vigil MD Primary Care Provider Active Dr. Osbaldo Vernon MD Admit Provider, At tending Provider, Referring Provider Active Team Status: Active Member Role Status Dates Dr. Federico Vigil MD Primary Care Provider Active Dr. Radha Seo MD Attending Provider, Referring Provider Active Team Status: Inactive Member Role Status Dates Dr. Federico Vigil MD Primary Care Provider Active Dr. Radha Seo MD Attending Provider, Referring Provider Active Center Consultant Relationship Specialty Start Date End Date Federico Vigil MD [address] [facility] [facility] [place] [address] PCP - General Family Medicine 04/27/17 Center Consultant Relationship Specialty Start Date End Date Federico Vigil MD [address] [facility] [place] [address] PCP - General Family Medicine 04/27/17 Center Consultant Relationship Specialty Start Date End Date Federico Vigil MD [address] [facility] [place] [address] PCP - General Family Medicine 04/27/17 Team Status: Inactive Member Role Status Dates Dr. Federico Vigil MD Primary Care Provider Active Dr. Merrick Abreu DO Attending Provider, Emergency Pr ovider Active Center Consultant Relationship Specialty Start Date End Date Federico Vigil MD [address] [facility] [place] [address] PCP - General Family Medicine 04/27/17 Center Consultant Relationship Specialty Start Date End Date Federico Vigil MD [address] [facility] [place] [address] PCP - General Family Medicine 04/27/17 Center Consultant Relationship Specialty Start Date End Date Federico Vigil MD [address] [facility] [place] [address] PCP - General Family Medicine 04/27/17 Center Consultant Relationship Specialty Start Date End Date Federico Vigil MD [address] [facility] [place] [address] PCP - General Family Medicine 04/27/17 Center Consultant Relationship Specialty Start Date End Date Federico Vigil MD [address] [facility] [place] [address] PCP - General Family Medicine 04/27/17 Center Consultant Relationship Specialty Start Date End Date Federico Vigil MD [address] [facility] [place] [address] PCP - General Family Medicine 04/27/17 Center Consultant Relationship Specialty Start Date End Date Federico Vigil MD [address] [facility] [place] [address] PCP - General Family Medicine 04/27/17 Center Consultant Relationship Specialty Start Date End Date Federico Vigil MD [address] [facility] [place] [address] PCP - General Family Medicine 04/27/17 Center Consultant Relationship Specialty Start Date End Date Federico Vigil MD [address] [facility] [place] [address] PCP - General Family Medicine 04/27/17 Center Consultant Relationship Specialty Start Date End Date Federico Vigil MD [address] [facility] [place] [address] PCP - General Family Medicine 04/27/17 Center Consultant Relationship Specialty Start Date End Date Federico Vigil MD [address] [place] [address] PCP - General Family Medicine 04/27/17 Center Consultant Relationship Specialty Start Date End Date Federico Vigil MD [address] [facility] [place] [address] PCP - General Family Medicine 04/27/17 Center Consultant Relationship Specialty Start Date End Date Federico Vigil MD [address] [facility] [place] [address] PCP - General Family Medicine 04/27/17 Team Status: Inactive Member Role Status Dates Dr. Federico Vigil MD Primary Care Provider Active Dr. Cabrera Ngo DO Emergency Provider Active Center Consultant Relationship Specialty Start Date End Date Federico Vigil MD [address] [facility] [place] [address] PCP - General Family Medicine 04/27/17 Center Consultant Relationship Specialty Start Date End Date Federico Vigil MD [address] [facility] [place] [address] PCP - General Family Medicine 04/27/17 Center Consultant Relationship Specialty Start Date End Date Federico Vigil MD [address] [facility] [place] [address] PCP - General Family Medicine 04/27/17 Center Consultant Relationship Specialty Start Date End Date Federico Vigil MD [address] [facility] [place] [address] PCP - General Family Medicine 04/27/17 Center Consultant Relationship Specialty Start Date End Date Federico Vigil MD [address] [facility] [place] [address] PCP - General Family Medicine 04/27/17 Center Consultant Relationship Specialty Start Date End Date Federico Vigil MD [address] [facility] [place] [address] PCP - General Family Medicine 04/27/17 Center Consultant Relationship Specialty Start Date End Date Federico Vigil MD [address] [facility] [place] [address] PCP - General Family Medicine 04/27/17 Team Status: Inactive Member Role Status Dates Dr. Federico Vigil MD Primary Care Provider, Referr ing Provider Active Dr. Hang Pool MD Attending Provider Active Team Status: Inactive Member Role Status Dates Dr. Federico Vigil MD Primary Care Provider Active Dr. Luis A Rios MD Attending Provider Active Team Status: Inactive Member Role Status Dates Dr. Federico Vigil MD Primary Care Provider Active Dr. Cabrera Ngo DO Attending Provider, Emergency P rovider Active Team Status: Active Member Role Status Dates Dr. Federico Vigil MD Primary Care Provider Active Dr. Hang Pool MD Attending Provider Active Center Consultant Relationship Specialty Start Date End Date Federico Vigil MD [address] [place] [address] PCP - General Family Medicine 04/27/17 Team Status: Inactive Member Role Status Dates Dr. Federico Vigil MD Primary Care Provider Active Barbara Canada SOLID PROPELLANT PROCESSOR, SOLID PROPELLANT PROCESSOR-C Attending Provider, Referring P rovider Active Center Consultant Relationship Specialty Start Date End Date Federico Vigil MD [address] [place] [address] PCP - General Family Medicine 04/27/17 Center Consultant Relationship Specialty Start Date End Date Federico Vigil MD [address] [facility] [place] [address] PCP - General Family Medicine 04/27/17 Center Consultant Relationship Specialty Start Date End Date Federico Vigil MD [address] [facility] [place] [address] PCP - General Family Medicine 04/27/17 Center Consultant Relationship Specialty Start Date End Date Federico Vigil MD [address] [facility] [place] [address] PCP - General Family Medicine 04/27/17 Center Consultant Relationship Specialty Start Date End Date Federico Vigil MD [address] [facility] [place] [address] PCP - General Family Medicine 04/27/17 Team Status: Inactive Member Role Status Dates Dr. Federico Vigil MD Primary Care Provider, Referr ing Provider Active Elham WESLEY PA Attending Provider Active Team Status: Inactive Member Role Status Dates Dr. Federico Vigil MD Primary Care Provider, Referr ing Provider Active Abram Mckeon SOLID PROPELLANT PROCESSOR, SOLID PROPELLANT PROCESSOR-C Attending Provider Active Team Status: Inactive Member Role Status Dates Dr. Federico Vigil MD Primary Care Provider Active Abram Mckeon SOLID PROPELLANT PROCESSOR, SOLID PROPELLANT PROCESSOR-C Attending Provider, Referring Pro vider Active Center Consultant Relationship Specialty Start Date End Date Federico Vigil MD [address] [place] [address] PCP - General Family Medicine 04/27/17 Center Consultant Relationship Specialty Start Date End Date Federico Vigil MD [address] [place] [address] PCP - General Family Medicine 04/27/17 Center Consultant Relationship Specialty Start Date End Date Federico Vigil MD [address] [place] [address] PCP - General Family Medicine 04/27/17 Team Status: Inactive Member Role Status Dates Dr. Federico Vigil MD Primary Care Provider Active Dr. Hang Pool MD Attending Provider Active Center Consultant Relationship Specialty Start Date End Date Federico Vigil MD [address] [place] [address] PCP - General Family Medicine 04/27/17 Center Consultant Relationship Specialty Start Date End Date Federico Vigil MD [address] [facility] [place] [address] PCP - General Family Medicine 04/27/17 Center Consultant Relationship Specialty Start Date End Date Federico Vigil MD [address] [place] [address] PCP - General Family Medicine 04/27/17 Center Consultant Relationship Specialty Start Date End Date Federico Vigil MD [address] [place] [address] PCP - General Family Medicine 04/27/17 Team Status: Inactive Member Role Status Dates Dr. Federico Vigil MD Primary Care Provider Active Dr. Hang Pool MD Attending Provider, Referring Pr ovider Active Center Consultant Relationship Specialty Start Date End Date Federico Vigil MD [address] [place] [address] PCP - General Family Medicine 04/27/17 Center Consultant Relationship Specialty Start Date End Date Federico Vigil MD [address] [place] [address] PCP - General Family Medicine 04/27/17 Center Consultant Relationship Specialty Start Date End Date Fedreico Vigil MD [address] [place] [address] PCP - General Family Medicine 04/27/17 Center Consultant Relationship Specialty Start Date End Date Federico Vigil MD [address] [place] [address] PCP - General Family Medicine 04/27/17 Center Consultant Relationship Specialty Start Date End Date Federico Vigil MD [address] [place] [address] PCP - General Family Medicine 04/27/17 Center Consultant Relationship Specialty Start Date End Date Federico Vigil MD [address] [place] [address] PCP - General Family Medicine 04/27/17 Center Consultant Relationship Specialty Start Date End Date Federico Vigil MD [address] [place] [address] PCP - General Family Medicine 04/27/17 Agustin Fenton MD [employer]elance Digital Project Manager 12/27/23 01/26/24 Center Consultant Relationship Specialty Start Date End Date Federico Vigil MD [address] [place] [address] PCP - General Family Medicine 04/27/17 Agustin Fenton MD Freelance Digital Project Manager 12/27/23 01/26/24 Center Consultant Relationship Specialty Start Date End Date Federico Vigil MD [address] [place] [address] PCP - General Family Medicine 04/27/17 Agustin Fenton MD Freelance Digital Project Manager 12/27/23 01/26/24 Center Consultant Relationship Specialty Start Date End Date Federico Vigil MD [address] [place] [address] PCP - General Family Medicine 04/27/17 Agustin Fenton MD Freelance Digital Project Manager 12/27/23 01/26/24 Center Consultant Relationship Specialty Start Date End Date Federico Vigil MD [address] [place] [address] PCP - General Family Medicine 04/27/17 Agustin Fenton MD Freelance Digital Project Manager 12/27/23 01/26/24 Center Consultant Relationship Specialty Start Date End Date Federico Vigil MD [address] [place] [address] PCP - General Family Medicine 04/27/17 Agustin Fenton MD Freelance Digital Project Manager 12/27/23 01/26/24 Center Consultant Relationship Specialty Start Date End Date Federico Vigil MD [address] [place] [address] PCP - General Family Medicine 04/27/17 Agustin Fenton MD Freelance Digital Project Manager 12/27/23 01/26/24 Center Consultant Relationship Specialty Start Date End Date Federico Vigil MD [address] [place] [address] PCP - General Family Medicine 04/27/17 Agustin Fenton MD Freelance Digital Project Manager 12/27/23 01/26/24 Center Consultant Relationship Specialty Start Date End Date Federcio Vigil MD [address] [place] [address] PCP - General Family Medicine 04/27/17 Center Consultant Relationship Specialty Start Date End Date Federico Vigil MD [address] [place] [address] PCP - General Family Medicine 04/27/17 Center Consultant Relationship Specialty Start Date End Date Federico Vigil MD [address] [place] [address] PCP - General Family Medicine 04/27/17 Center Consultant Relationship Specialty Start Date End Date Federico Vigil MD [address] [facility] [place] [address] PCP - General Family Medicine 04/27/17 Center Consultant Relationship Specialty Start Date End Date Federico Vigil MD [address] [facility] [place] [address] PCP - General Family Medicine 04/27/17 Center Consultant Relationship Specialty Start Date End Date Federico Vigil MD [address] [facility] [place] [address] PCP - General Family Medicine 04/27/17 Center Consultant Relationship Specialty Start Date End Date Federico Vigil MD [address] [facility] [place] [address] PCP - General Family Medicine 04/27/17 Juan Oliver MD [address] [facility] [address] [place] [address] Anesthesiology 04/23/24 Radha Seo [address] [place] [address] Rheumatology 04/23/24 Center Consultant Relationship Specialty Start Date End Date Federico Vigil MD [address] [facility] [place] [address] PCP - General Family Medicine 04/27/17 Juan Oliver MD [address] [facility] [address] [place] [address] Anesthesiology 04/23/24 Radha Seo L [address] [place] [address] Rheumatology 04/23/24 Center Consultant Relationship Specialty Start Date End Date Federico Vigil MD [address] [facility] [place] [address] PCP - General Family Medicine 04/27/17 Juan Oliver MD [address] [facility] [address] [place] [address] Anesthesiology 04/23/24 Radha Seo [address] [place] [address] Rheumatology 04/23/24 Center Consultant Relationship Specialty Start Date End Date Federico Vigil MD [address] [facility] [place] [address] PCP - General Family Medicine 04/27/17 Juan Oliver MD [address] [facility] [address] [place] [address] Anesthesiology 04/23/24 Radha Seo [address] [place] [address] Rheumatology 04/23/24 Center Consultant Relationship Specialty Start Date End Date Federico Vigil MD [address] [facility] [place] [address] PCP - General Family Medicine 04/27/17 Juan Oliver MD [address] [facility] [address] [place] [address] Anesthesiology 04/23/24 Radha Seo [address] [place] [address] Rheumatology 04/23/24 Center Consultant Relationship Specialty Start Date End Date Federico Vigil MD [address] [facility] [place] [address] PCP - General Family Medicine 04/27/17 Juan Oliver MD [address] [facility] [address] [place] [address] Anesthesiology 04/23/24 Radha Seo [address] [place] [address] Rheumatology 04/23/24 Center Consultant Relationship Specialty Start Date End Date Federico Vigil MD [address] [facility] [place] [address] PCP - General Family Medicine 04/27/17 Juan Oliver MD [address] [facility] [address] [place] [address] Anesthesiology 04/23/24 Radha Seo [address] [place] [address] Rheumatology 04/23/24 Center Consultant Relationship Specialty Start Date End Date Federico Vigil MD [address] [facility] [place] [address] PCP - General Family Medicine 04/27/17 Juan Oliver MD [address] [facility] [address] [place] [address] Anesthesiology 04/23/24 Radha Seo [address] [place] [address] Rheumatology 04/23/24 Center Consultant Relationship Specialty Start Date End Date Federico Vigil MD [address] [place] [address] PCP - General Family Medicine 04/27/17 Juan Oliver MD [address] [address] Anesthesiology 04/23/24 Radha Seo [address] [place] [address] Rheumatology 04/23/24 Center Consultant Relationship Specialty Start Date End Date Federico Vigil MD [address] [place] [address] PCP - General Family Medicine 04/27/17 Juan Oliver MD [address] [place] [address] Anesthesiology 04/23/24 Radha Seo [address] [place] [address] Rheumatology 04/23/24 Ruth Perez APRN.GANG HEMSTITCHING MACHINE OPERATOR [address] [place] [address] Freelance Digital Project Manager Family Medicine 06/24/24 Center Consultant Relationship Specialty Start Date End Date Federico Vigil MD [address] [place] [address] PCP - General Family Medicine 04/27/17 Juan Oliver MD [address] [place] [address] Anesthesiology 04/23/24 Radha Seo [address] [place] [address] Rheumatology 04/23/24 Ruth Perez, CUSTOMER SALES CONSULTANT.GANG HEMSTITCHING MACHINE OPERATOR [address] [place] [address] Freelance Digital Project Manager Family Medicine 06/24/24 Center Consultant Relationship Specialty Start Date End Date Federico Vigil MD [address] [place] [address] PCP - General Family Medicine 04/27/17 Juan Oliver MD [address] [place] [address] Anesthesiology 04/23/24 Radha Seo [address] [place] [address] Rheumatology 04/23/24 Ruth Perez, CUSTOMER SALES CONSULTANT.GANG HEMSTITCHING MACHINE OPERATOR [address] [place] [address] Freelance Digital Project Manager Family Medicine 06/24/24 Phani Rajan CUSTOMER SALES CONSULTANT.GANG HEMSTITCHING MACHINE OPERATOR [address] [place] [address] Freelance Digital Project Manager Family Medicine 07/03/24 Center Consultant Relationship Specialty Start Date End Date Federico Vigil MD [address] [place] [address] PCP - General Family Medicine 04/27/17 Juan Oliver MD [address] [place] [address] Anesthesiology 04/23/24 Radha Seo [address] [facility] [address] Rheumatology 04/23/24 Ruth Perez APRN.GANG HEMSTITCHING MACHINE OPERATOR [address] [place] [address] Freelance Digital Project Manager Family Medicine 06/24/24 Phani Rajan APRN.GANG HEMSTITCHING MACHINE OPERATOR [address] [place] [address] Freelance Digital Project Manager Family Medicine 07/03/24 Center Consultant Relationship Specialty Start Date End Date Federico Vigil MD [address] [place] [address] PCP - General Family Medicine 04/27/17 Juan Oliver MD [address] [place] [address] Anesthesiology 04/23/24 Radha Seo [address] [place] [address] Rheumatology 04/23/24 Ruth Perez APRN.GANG HEMSTITCHING MACHINE OPERATOR [address] [place] [address] Freelance Digital Project Manager Family Medicine 06/24/24 Phani Rajan APRN.GANG HEMSTITCHING MACHINE OPERATOR [address] [place] [address] Freelance Digital Project Manager Family Medicine 07/03/24 Center Consultant Relationship Specialty Start Date End Date Federico Vigil MD [address] [place] [address] PCP - General Family Medicine 04/27/17 Juan Oliver MD [address] [place] [address] Anesthesiology 04/23/24 Radha Seo [address] [place] [address] Rheumatology 04/23/24 Ruth Perez APRN.GANG HEMSTITCHING MACHINE OPERATOR [address] [place] [address] Freelance Digital Project Manager Family [facility] 06/24/24 Phani Rajan APRN.GANG HEMSTITCHING MACHINE OPERATOR [address] [place] [address] Freelance Digital Project Manager Family [facility] 07/03/24 Center Consultant Relationship Specialty Start Date End Date Federico Vigil MD [address] [place] [address] PCP - General Family Medicine 04/27/17 Juan Oliver MD [address] [place] [address] Anesthesiology 04/23/24 Radha Seo [address] [place] [address] Rheumatology 04/23/24 Ruth Perez APRN.GANG HEMSTITCHING MACHINE OPERATOR [address] [place] [address] Freelance Digital Project Manager Family [facility] 06/24/24 Phani Rajan APRN.GANG HEMSTITCHING MACHINE OPERATOR [address] [place] [address] Freelance Digital Project Manager Family [facility] 07/03/24 Center Consultant Relationship Specialty Start Date End Date Federico Vigil MD [address] [place] [address] PCP - General Family Medicine 04/27/17 Juan Oliver MD [address] [place] [address] Anesthesiology 04/23/24 Radha Seo [address] [place] [address] Rheumatology 04/23/24 Ruth Perez, CUSTOMER SALES CONSULTANT.GANG HEMSTITCHING MACHINE OPERATOR [address] [place] [address] Freelance Digital Project Manager Family Medicine 06/24/24 Phani Rajan, CUSTOMER SALES CONSULTANT.GANG HEMSTITCHING MACHINE OPERATOR [address] [place] [address] Freelance Digital Project Manager [facility] 07/03/24 Center Consultant Relationship Specialty Start Date End Date Federico Vigil MD [address] [place] [address] PCP - General Family Medicine 04/27/17 Juan Oliver MD [address] [place] [address] Anesthesiology 04/23/24 Radha Seo [address] [place] [address] Rheumatology 04/23/24 Ruth Perez, CUSTOMER SALES CONSULTANT.GANG HEMSTITCHING MACHINE OPERATOR [address] [place] [address] Freelance Digital Project Manager Family Medicine 06/24/24 Phani Rajan, CUSTOMER SALES CONSULTANT.GANG HEMSTITCHING MACHINE OPERATOR [address] [place] [address] Freelance Digital Project Manager [facility] 07/03/24 Center Consultant Relationship Specialty Start Date End Date Federico Vigil MD [address] [place] [address] PCP - General Family Medicine 04/27/17 Juan Oliver MD [address] [place] [address] Anesthesiology 04/23/24 Radha Seo [address] [place] [address] Rheumatology 04/23/24 Ruth Perez, CUSTOMER SALES CONSULTANT.GANG HEMSTITCHING MACHINE OPERATOR [address] [place] [address] Freelance Digital Project Manager [facility] 06/24/24 Phani Rajan, CUSTOMER SALES CONSULTANT.GANG HEMSTITCHING MACHINE OPERATOR [address] [place] [address] Freelance Digital Project Manager [facility] 07/03/24 Center Consultant Relationship Specialty Start Date End Date Federico Vigil MD [address] [place] [address] PCP - General Family Medicine 04/27/17 Juan Oliver MD [address] [place] [address] Anesthesiology 04/23/24 Radha Seo [address] [place] [address] Rheumatology 04/23/24 Ruth Perez APRN.GANG HEMSTITCHING MACHINE OPERATOR [address] [place] [address] Freelance Digital Project Manager Family Medicine 06/24/24 Phani Rajan APRN.GANG HEMSTITCHING MACHINE OPERATOR [address] [place] [address] Freelance Digital Project Manager Family Medicine 07/03/24 Center Consultant Relationship Specialty Start Date End Date Federico Vigil MD [address] [place] [address] PCP - General Family Medicine 04/27/17 Juan Oliver MD [address] [place] [address] Anesthesiology 04/23/24 Radha Seo [address] [place] [address] Rheumatology 04/23/24 Ruth Perez APRN.GANG HEMSTITCHING MACHINE OPERATOR [address] [place] [address] Freelance Digital Project Manager Family Medicine 06/24/24 Phani Rajan APRN.GANG HEMSTITCHING MACHINE OPERATOR [address] [place] [address] Freelance Digital Project Manager Family Medicine 07/03/24 Center Consultant Relationship Specialty Start Date End Date Federico Vigil MD [address] [place] [address] PCP - General Family Medicine 04/27/17 Juan Oliver MD [address] [place] [address] Anesthesiology 04/23/24 Radha Seo [address] [place] [address] Rheumatology 04/23/24 Ruth Perez, AL.GANG HEMSTITCHING MACHINE OPERATOR [address] [place] [address] [employer]elance Digital Project Manager Family Medicine 06/24/24 Phani Rajan CUSTOMER SALES CONSULTANT.GANG HEMSTITCHING MACHINE OPERATOR [address] [place] [address] Freelance Digital Project Manager Family Medicine 07/03/24 Team Status: Active Member Role Status Dates Dr. Federico Vigil MD Primary Care Provider Active Team Status: Inactive Member Role Status Dates Dr. Federico Vigil MD Primary Care Provider Active Start: August 20, 2024 End: August 20, 2024 Dr. Federico Vigil MD Referring Provider Active Start: August 20, 2024 End: August 20, 2024 Karine Brasher PA, PA Attending Provider Active Start: August 20, 2024 End: August 20, 2024 Team Status: Inactive Member Role Status Dates Dr. Federico Vigil MD Primary Care Provider Active Start: September 14, 2024 End: September 14, 2024 Dr. Federico Vigil MD Referring Provider Active Start: September 14, 2024 End: September 14, 2024 Dr. Hang Pool MD Attending Provider Active Start: September 14, 2024 End: September 14, 2024 Team Status: Inactive Member Role Status Dates Dr. Federico Vigil MD Primary Care Provider Active Start: September 14, 2024 End: September 14, 2024 Dr. Luis A Rios MD Attending Provider Active S tart: September 14, 2024 End: September 14, 2024 Team Status: Inactive Member Role Status Dates Dr. Feedrico Vigil MD Primary Care Provider Active Start: November 14, 2024 End: November 14, 2024 Dr. Federico Vigil MD Referring Provider Active Start: November 14, 2024 End: November 14, 2024 MARYJANE Hunter Attending Provider Active Star t: November 14, 2024 End: November 14, 2024 Team Status: Inactive Member Role Status Dates Dr. Federico Vigil MD Primary Care Provider Active Start: November 21, 2024 End: November 21, 2024 Dr. Juan Oliver MD Attending Provider Active Start: November 21, 2024 End: November 21, 2024 Dr. Juan Oliver MD Referring Provider Active Start: November 21, 2024 End: November 21, 2024 Team Status: Active Member Role Status Dates Dr. Federico Vigil MD Primary Care Provider Active Start: November 27, 2024 Dr. Juan Oliver MD Attending Provider Active Start: November 27, 2024 Dr. Juan Oliver MD Referring Provider Active Start: November 27, 2024 Team Status: Active Member Role Status Dates Dr. Michael Ko MD Primary Care Provider Active Team Status: Inactive Member Role Status Dates Dr. Federico Vigil MD Primary Care Provider Active Start: November 27, 2024 End: November 27, 2024 Dr. Juan Oliver MD Attending Provider Active Start: November 27, 2024 End: November 27, 2024 Dr. Juan Oliver MD Referring Provider Active Start: November 27, 2024 End: November 27, 2024 Team Status: Active Member Role Status Dates Karine WESLEY PA Attending Provider Active Start: November 28, 2024 Karine WESLEY PA Referring Provider Active Start: November 28, 2024 Dr. Michael Ko MD Primary Care Provider Active Start: November 28, 2024 Team Status: Active Member Role Status Dates Dr. Michael Ko MD Primary Care Provider Active Start: November 28, 2024 Dr. Osbaldo Vernon MD Attending Provider Active Start: November 28, 2024 Team Status: Active Member Role Status Dates Dr. Michael Ko MD Primary Care Provider Active Start: November 29, 2024 Dr. Osbaldo Vernon MD Attending Provider Active Start: November 29, 2024 Dr. Osbaldo Vernon MD Referring Provider Active Start: November 29, 2024 Team Status: Inactive Member Role Status Dates Karine WESLEY PA Attending Provider Active Start: November 28, 2024 End: November 28, 2024 Karine WESLEY PA Referring Provider Active Start: November 28, 2024 End: November 28, 2024 Dr. Michael Ko MD Primary Care Provider Active Start: November 28, 2024 End: November 28, 2024 Team Status: Inactive Member Role Status Dates Dr. Michael Ko MD Primary Care Provider Active Start: November 29, 2024 End: November 29, 2024 Dr. Osbaldo Vernon MD Attending Provider Active Start: November 29, 2024 End: November 29, 2024 Dr. Osbaldo Vernon MD Referring Provider Active Start: November 29, 2024 End: November 29, 2024 Team Status: Active Member Role Status Dates Dr. Michael Ko MD Primary Care Provider Active Start: December 11, 2024 Dr. Michael Ko MD Attending Provider Active Start: December 11, 2024 Dr. Michael Ko MD Referring Provider Active Start: December 11, 2024 Team Status: Inactive Member Role Status Dates Dr. Federico Vigil MD Referring Provider Active Start: December 11, 2024 End: December 11, 2024 Dr. Osbaldo Vernon MD Attending Provider Active Start: December 11, 2024 End: December 11, 2024 Dr. Michael Ko MD Primary Care Provider Active Start: December 11, 2024 End: December 11, 2024 Team Status: Inactive Member Role Status Dates Dr. Michael Ko MD Primary Care Provider Active Start: December 11, 2024 End: December 11, 2024 Dr. Michael Ko MD Attending Provider Active Start: December 11, 2024 End: December 11, 2024 Dr. Michael Ko MD Referring Provider Active Start: December 11, 2024 End: December 11, 2024 Team Status: Active Member Role Status Dates MARYJANE Hunter Attending Provider Active Star t: December 12, 2024 MARYJANE Hunter Referring Provider Active Star t: December 12, 2024 Dr. Michael Ko MD Primary Care Provider Active Start: December 12, 2024 Team Status: Active Member Role Status Dates Dr. Michael Ko MD Primary Care Provider Active Start: December 12, 2024 Dr. Miller Alexandre MD Attending Provider Active S tart: December 12, 2024 Team Status: Active Member Role Status Dates Dr. Michael Ko MD Primary Care Provider Active Start: December 13, 2024 Dr. Michael Ko MD Attending Provider Active Start: December 13, 2024 Dr. Michael Ko MD Referring Provider Active Start: December 13, 2024 Team Status: Inactive Member Role Status Dates MARYJANE Hunter Attending Provider Active Star t: December 12, 2024 End: December 12, 2024 MARYJANE Hunter Referring Provider Active Star t: December 12, 2024 End: December 12, 2024 Dr. Michael Ko MD Primary Care Provider Active Start: December 12, 2024 End: December 12, 2024 Team Status: Inactive Member Role Status Dates Dr. Michael Ko MD Primary Care Provider Active Start: December 13, 2024 End: December 13, 2024 Dr. Michael Ko MD Attending Provider Active Start: December 13, 2024 End: December 13, 2024 Dr. Michael Ko MD Referring Provider Active Start: December 13, 2024 End: December 13, 2024 Goals (unrecognized section and content) Goals may be documented in a n alternate sectionGoals may be documented in an alternate sectionGoals may be documented in an alternate sectionGoals may be documented in an alternate sectionGoals may be documented in an alternate sectionGoals may be documented in an alternate sectionGoals may be documented in an alternate sectionGoals may be documented in an alternate sectionGoals may be documented in an alternate sectionGoals may be documented in an alternate sectionGoals may be documented in an alternate sectionGoals may be documented in an alternate sectionGoals may be documented in an alternate sectionGoals may be documented in an alternate sectionGoals may be documented in an alternate sectionGoals may be documented in an alternate sectionGoals may be documented in an alternate sectionGoals may be documented in an alternate sectionGoals may be documented in an alternate section Inactive Administered Medications - up to 3 most recent administrations Administered Medications (un recognized section and content) Medication Order MAR Action Action Date Dose Rate Site iron sucrose iv piggyback 200 mg in NaCl 0.9% 100 mL (VENOFER) 200 mg, INTRAVENOUS, at 400 mL/hr, Administer over 15 Minutes, ONCE, 1 dose, On Tue09/08/23 at 1100, Please conduct a 30 minute post dose observation. Refrigerate New Bag/Syringe/Bottle 09/08/2023 11:10 AM EST 200 mg 400 mL/hr Inactive Administered Medications - up to 3 most recent administrations Medication Order MAR Action Action Date Dose Rate Site iron sucrose iv piggyback 200 mg in NaCl 0.9% 100 mL (VENOFER) 200 mg, INTRAVENOUS, at 400 mL/hr, Administer over 15 Minutes, ONCE, 1 dose, On Tue09/14/23 at 0930, Please conduct a 30 minute post dose observation. Refrigerate New Bag/Syringe/Bottle 09/14/2023 9:43 AM EST 200 mg 400 mL/hr Inactive Administered Medications - up to 3 most recent administrations Medication Order MAR Action Action Date Dose Rate Site iron sucrose iv piggyback 200 mg in NaCl 0.9% 100 mL (VENOFER) 200 mg, INTRAVENOUS, at 400 mL/hr, Administer over 15 Minutes, ONCE, 1 dose, On Tue09/16/23 at 1130, Please conduct a 30 minute post dose observation. Refrigerate New Bag/Syringe/Bottle 09/16/2023 11:17 AM EST 200 mg 400 mL/hr Inactive Administered Medications - up to 3 most recent administrations Medication Order MAR Action Action Date Dose Rate Site iron sucrose iv piggyback 200 mg in NaCl 0.9% 100 mL (VENOFER) 200 mg, INTRAVENOUS, at 400 mL/hr, Administer over 15 Minutes, ONCE, 1 dose, On Tue09/19/23 at 0830, Please conduct a 30 minute post dose observation. Refrigerate New Bag/Syringe/Bottle 09/19/2023 8:28 AM EST 200 mg 400 mL/hr FOR RECORDS PERTAINING TO PATIENTS WHO ARE [...] BE BASED ON THE PRIMARY CLINICAL RECORDS. [facility]. provides no warranty or guarantee of the accuracy or completeness of information in this document.
--- NOTE | 2025-02-25 09:45 | CL.D_ITS ---
Patient Name: TRINH FOX Study Date: 01/08/2025 Performing: Osbaldo Vernon MD Ht: 70 inches 177.8 cm : 1945 Wt: 164.99 lbs 74.84 kg Age: 79 Gender: male BSA: 1.92 PROCEDURE(S) PERFORMED DC01-(09013)LHC/COR/LV CLINICAL PROFILE AND INDICATIONS Indications: LV Dysfunction Heart Failure: NYHA Class: 2 CAD Presentations: No Sxs, no angina. 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 LVEF 35% 50% Mid LAD Stent to Mid LCX into OM2 patent RECOMMENDATIONS Medical therapy DESCRIPTION OF PROCEDURE The patient arrived to the procedure lab. The risks and benefits of the procedure as well as a full description of our services here and current unavailability of surgical backup were fully explained to the patient and/or their significant other prior to the catheterization. The Timeout was completed, verifying the correct patient and procedure. The patient's procedural site was prepped and draped in the usual fashion. Local anesthetic was given subcutaneously to left radial region with Lidocaine 2%. Local anesthetic was given subcutaneously to right groin region with Lidocaine 2%. Using a modified Seldinger technique, arterial access was obtained via the left femoral artery, a 6Fr sheath was inserted., arterial access was obtained via the right femoral artery, a 6Fr sheath was inserted. Left Coronary Artery selective angiography was performed in multiple views using a 5 Fr. JL4 catheter. Right Coronary Artery selective angiography was then performed in multiple views using a 5 Fr. 3DRC (Peng) catheter. Left Ventriculography was performed in ARREAGA projection using a 5 Fr. Pigtail catheter. LV to AO pullback pressures were then recorded.Contrast was injected through the sheath and the Right Iliac and Femoral artery were assessed for possible closure device.The arterial sheath was pulled and a TR Band was applied for hemostasis 11cc's of air in band. The arterial sheath was pulled and a Perclose closure device was deployed for hemostasis CORONARY ANGIOGRAPHY LEFT HEART ASSESSMENT Left Ventricular Ejection Fraction: by LV Gram 35 % LVEDP: 15 mmHg LEFT MAIN: Angiographically normal LEFT ANTERIOR DESCENDING ARTERY: LAD: Tubular 50% Mid lesion in LAD CIRCUMFLEX ARTERY: Stent to Mid LCX into OM2 patent RIGHT CORONARY ARTERY: Angiographically normal COMPLICATIONS No Complications PROCEDURE MEDICATIONS Versed 1 mg IV Fentanyl 50 mcg IV Versed 1 mg IV Fentanyl 50 mcg IV Versed 1 mg IV Baby Aspirin (81mg) 1 Tabs PO @ 01/08/2025 07:58:45 Heparin given IA 01/08/2025 09:23:46 Verapamil 2.5mg, Ntg 200mcgs, 2000 units of Heparin given IA 01/08/2025 09:23:46 SUMMARY OF HEMODYNAMIC DATA Time AIR REST ECG 07:52:24 ECG 07:53:13 LV 165/7, 18 09:43:43 LV 171/3, 15 09:43:52 LV 159/12, 17 09:47:28 LVp 159/14, 24 09:47:33 AOp 154/-165 (69) 09:47:40 10:02:09 Signed By Osbaldo Vernon MD On 01/08/2025 10:05:30 Osbaldo Vernon MD
== END 2025-01-08 13:05 | disposition home or self-care (01) ==
PROVIDERS: PCP Family Medicine Geriatric Medicine; Referring Provider Internal Medicine Cardiovascular Disease; Visit Provider Internal Medicine Cardiovascular Disease
DX: I25.10 Atherosclerotic heart disease of native coronary artery without angina pectoris (principal); I48.0 Paroxysmal atrial fibrillation; I42.8 Other cardiomyopathies; I34.0 Nonrheumatic mitral (valve) insufficiency; I10 Essential (primary) hypertension; I65.23 Occlusion and stenosis of bilateral carotid arteries; E78.5 Hyperlipidemia, unspecified; N52.9 Male erectile dysfunction, unspecified; Z87.891 Personal history of nicotine dependence; R53.1 Weakness; R06.02 Shortness of breath; Z95.5 Presence of coronary angioplasty implant and graft
CPT/HCPCS: 36415; 71046; 80048; 85610; 93458; 99152; 99153; C1769; C1894; Q9967; C1760

== ENCOUNTER → 2025-01-21 | Outpatient (CLI) | payer MEDICARE, SELFPAY ==
[2025-01-21 14:39] LABS: Hematocrit 35.4 % (40-54); Hemoglobin 11.6 g/dL (13.0-16.5); Immature Granulocytes Count 0.030 X10^3/uL (0.0-0.0); Mean Corp Hgb Conc 32.8 g/dL (32-36); Mean Corpuscular Volume 90.3 fL (80-94); Mean Platelet Vol. 9.5 fl (6.2-12.0); NRBC Flagged by Analyzer 0 % (0-5); Platelet Count 223 K/mm3 (150-450); RBC Distribution Width CV 16.0 % (11.6-14.6); RBC Distribution Width SD 53.7 fl (35.1-43.9); Red Blood Count 3.92 M/mm3 (4.6-6.2); White Blood Count 8.1 K/mm3 (4.4-11.0)
[2025-01-21 15:21] LABS: Anion Gap 11 (5-15); BUN 24 mg/dL (4-19); BUN/Creat Ratio 21.5 RATIO (10-20); Calcium,Total 9.1 mg/dL (7.6-11.0); Carbon Dioxide 23.7 mmol/L (21.0-32.0); Chloride 100 mmol/L (98-108); Glucose 108 mg/dL (70-99); Magnesium 2.0 mg/dL (1.5-2.2); Potassium 5.0 mmol/L (3.3-5.1)
== END | disposition home or self-care (01) ==
LOC: LAB 12:48
PROVIDERS: PCP Family Medicine Geriatric Medicine; Referring Provider Nurse Practitioner Family; Visit Provider Nurse Practitioner Family
DX: I48.0 Paroxysmal atrial fibrillation (principal); Z79.01 Long term (current) use of anticoagulants; Z51.81 Encounter for therapeutic drug level monitoring; Z79.899 Other long term (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; R00.2 Palpitations
CPT/HCPCS: 36415; 80048; 83735; 84443; 85025

== ENCOUNTER → 2025-02-01 | Outpatient (CLI) | payer MEDICARE, SELFPAY ==
--- NOTE | 2025-02-01 15:07 | MRI_ITS ---
PROCEDURE: SPINE LUMBAR (ROUTINE) 02/01/2025 REASON FOR EXAM: LBP TECHNIQUE: SPINE LUMBAR (ROUTINE) COMPARISON: MRI L-spine 06/27/2024. FINDINGS: Vertebrae: Prior cement augmentation of the L5 vertebral body. Slight interval progression of the moderate L5 vertebral body compression deformity. Slight interval progression of multilevel mild vertebral body height loss deformities (for example the superior endplate of the L3 vertebral body). Alignment: No traumatic or degenerative listhesis. Conus Medullaris: Normal in size and intensity, terminating at the L1 vertebral body. L1-2: Mild degenerative disc disease. No significant disc bulge. No central canal stenosis. Mild right and moderate left neural foraminal stenosis secondary to uncovertebral facet hypertrophy and congenital shortened pedicles. L2-3: Moderate degenerative disc disease with symmetric posterior disc bulging, resulting in moderate central canal, moderate right and severe left neural foraminal stenosis at this level. This has progressed since prior examination. L3-4: Mild degenerative disc disease, mild symmetric posterior disc bulging with mild central canal stenosis. Mild bilateral neural foraminal stenosis secondary to uncovertebral facet hypertrophy and congenital shortened pedicles. L4-5: Prior decompressive laminectomy at L4-5. Mild degenerative disc disease and facet hypertrophy resulting in severe right and moderate left neural foraminal stenosis. L5-S1: Mild degenerative disc disease without significant disc bulging. Sacrum: Unremarkable. Prior total left hip arthroplasty. Calcific plaque of the abdominal aorta. MRI/Spine Lumbar (Routine) IMPRESSION: 1. Prior decompressive laminectomy at L4-5, and cement augmentation of the L5 v ertebral body. 2. Progression of the now moderate L5 vertebral body compression deformity sinc e prior examination. 3. Additional progression of multilevel central and neural foraminal stenosis, as described, since prior examination. Reading Location: [id number]
== END | disposition home or self-care (01) ==
PROVIDERS: PCP Family Medicine Geriatric Medicine; Referring Provider Anesthesiology; Visit Provider Anesthesiology
DX: M47.816 Spondylosis without myelopathy or radiculopathy, lumbar region (principal)
CPT/HCPCS: 72148

== ENCOUNTER → 2025-03-27 | Outpatient (CLI) | payer MEDICARE, SELFPAY ==
[2025-03-27 09:26] LABS: Hematocrit 32.8 % (40-54); Hemoglobin 11.1 g/dL (13.0-16.5); Immature Granulocytes Count 0.040 X10^3/uL (0.0-0.0); Mean Corp Hgb Conc 33.8 g/dL (32-36); Mean Corpuscular Volume 93.2 fL (80-94); Mean Platelet Vol. 9.7 fl (6.2-12.0); NRBC Flagged by Analyzer 0 % (0-5); Platelet Count 255 K/mm3 (150-450); RBC Distribution Width CV 13.9 % (11.6-14.6); RBC Distribution Width SD 47.4 fl (35.1-43.9); Red Blood Count 3.52 M/mm3 (4.6-6.2); White Blood Count 7.1 K/mm3 (4.4-11.0)
[2025-03-27 10:17] LABS: Anion Gap 12 (5-15); BUN 17 mg/dL (4-19); BUN/Creat Ratio 18.1 RATIO (10-20); Calcium,Total 9.0 mg/dL (7.6-11.0); Carbon Dioxide 22.4 mmol/L (21.0-32.0); Chloride 101 mmol/L (98-108); Glucose 118 mg/dL (70-99); Potassium 4.1 mmol/L (3.3-5.1)
== END | disposition home or self-care (01) ==
LOC: LAB 08:41
PROVIDERS: PCP Family Medicine Geriatric Medicine; Referring Provider Nurse Practitioner Family; Visit Provider Nurse Practitioner Family
DX: I50.20 Unspecified systolic (congestive) heart failure (principal); Z51.81 Encounter for therapeutic drug level monitoring; Z79.899 Other long term (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; D64.9 Anemia, unspecified; Z79.01 Long term (current) use of anticoagulants
CPT/HCPCS: 36415; 80048; 85025

== ENCOUNTER → 2025-05-21 | Outpatient (CLI) | payer MEDICARE, SELFPAY ==
[2025-05-21 14:25] LABS: Mucous, Urine 0 SEEN /hpf (<or=2+); Red Blood Cells-Urine 0 SEEN /hpf (0-5); Squamous Epithelial Cells - UA 0 SEEN /hpf (0-5)
[2025-05-21 15:01] LABS: Hematocrit 33.1 % (40-54); Hemoglobin 11.4 g/dL (13.0-16.5); Immature Granulocytes Count 0.020 X10^3/uL (0.0-0.0); Mean Corp Hgb Conc 34.4 g/dL (32-36); Mean Corpuscular Volume 93.5 fL (80-94); Mean Platelet Vol. 10.0 fl (6.2-12.0); NRBC Flagged by Analyzer 0 % (0-5); Platelet Count 190 K/mm3 (150-450); RBC Distribution Width CV 13.3 % (11.6-14.6); RBC Distribution Width SD 45.7 fl (35.1-43.9); Red Blood Count 3.54 M/mm3 (4.6-6.2); White Blood Count 6.8 K/mm3 (4.4-11.0)
[2025-05-21 15:02] LABS: Color, Urine Yellow (Yellow); Glucose, Dipstick Normal (Normal); Ketone-Dipstick 5 mg/dl (Negative); Leukocyte Esterase-Dipstick 25 /ul (Negative); Nitrite-Dipstick Negative (Negative); Occult Blood-Urine 10 /ul (Negative); Protein-Dipstick 30 mg/dl (Negative); Specific Gravity, Urine 1.010 (1.002-1.030); Urine Bilirubin Dipstick Negative (Negative)
[2025-05-21 15:11] LABS: Prothrombin Time (Protime)PT. 18.3 SECONDS (11.7-14.9)
[2025-05-21 15:42] LABS: AST(SGOT) 20 U/L (<=37); Alanine Aminotransfer ALT/SGPT 12 U/L (<=46); Albumin, Serum 3.9 g/dL (3.4-4.8); Alkaline Phosphatase 68 U/L (40-129); Anion Gap 10 (5-15); BUN 22 mg/dL (4-19); BUN/Creat Ratio 19.7 RATIO (10-20); Calcium,Total 8.8 mg/dL (7.6-11.0); Carbon Dioxide 22.3 mmol/L (21.0-32.0); Chloride 100 mmol/L (98-108); Globulin 2.6 g/dL (2.2-4.2); Glucose 114 mg/dL (70-99); Magnesium 2.1 mg/dL (1.5-2.2); Potassium 4.7 mmol/L (3.3-5.1)
== END | disposition home or self-care (01) ==
LOC: LAB 14:11
PROVIDERS: PCP Family Medicine Geriatric Medicine; Referring Provider Nurse Practitioner Family; Visit Provider Nurse Practitioner Family
DX: R42 Dizziness and giddiness (principal); I50.20 Unspecified systolic (congestive) heart failure; I48.0 Paroxysmal atrial fibrillation; I25.5 Ischemic cardiomyopathy; Z79.01 Long term (current) use of anticoagulants; I25.10 Atherosclerotic heart disease of native coronary artery without angina pectoris
CPT/HCPCS: 36415; 80053; 81001; 83735; 84439; 84443; 85025; 85610

== ENCOUNTER 2025-05-25 17:17 | Emergency (ER) | payer MEDICARE, SELFPAY ==
[2025-05-25 17:19] VITALS: BP 165/91; PULSE 72; RESP 18; TEMP 36.7; O2SAT 100; BMI 25.3
--- NOTE | 2025-05-25 17:54 | RAD_ITS ---
PROCEDURE: LEFT ELBOW MIN 3 VIEWS 05/25/2025 REASON FOR EXAM: INJURY TECHNIQUE: Procedure Code: RADEL Modality: DX Procedure: ELBOW MIN 3 VIEWS Laterality: Left COMPARISON: None. FINDINGS: No acute fracture or dislocation appreciated. Alignment appears anatomic. 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 Degenerative calcification adjacent to the humeral epicondyles greater on the lateral side. No appreciable joint effusion or focal soft tissue swelling. RAD/Elbow min 3 Views IMPRESSION: No acute fracture or dislocation. Reading Location: [id number]
--- NOTE | 2025-05-25 17:54 | RAD_ITS ---
PROCEDURE: LEFT HAND MIN 3 VIEWS 05/25/2025 REASON FOR EXAM: INJURY TECHNIQUE: Procedure Code: SHAKIRA Modality: DX Procedure: HAND MIN 3 VIEWS Laterality: Left COMPARISON: None. FINDINGS: No acute fracture or dislocation. Alignment appears anatomic. Moderate diffuse interphalangeal joint space narrowing, and triscaphe joint arthrosis. Qualitative osteopenia. No marked soft tissue swelling. Atherosclerotic vascular calcifications. RAD/Hand Min 3 Views IMPRESSION: No acute fracture or dislocation. Reading Location: [id number]
--- NOTE | 2025-05-25 17:54 | CT_ITS ---
PROCEDURE: CT BRAIN/HEAD WITHOUT CONTRAST 05/25/2025 REASON FOR EXAM: HEAD INJURY TECHNIQUE: Procedure Code: CTBR Modality: CT Procedure: BRAIN/HEAD WITHOUT CONTRAST Coronal and Sagittal reconstruction series were provided. One or more dose reduction techniques were used (e.g., Automated exposure control, adjustment of the mA and/or kV according to patient size, use of iterative reconstruction technique. RADIATION DOSE SUMMARY: CTDlvol: 47.06 mGy DLP: 855.03 mGycm COMPARISON: None. FINDINGS: No acute intracranial hemorrhage, extra-axial collection, mass effect or evidence of acute infarct. Mild generalized brain parenchymal volume loss and chronic microangiopathic changes. Absent [place] ocular lenses. Atherosclerotic vascular calcifications. Intact skull base and calvarium. No mastoid effusions. Mild peripheral mucosal thickening in the bilateral maxillary sinuses. CT/Brain/Head without Contrast IMPRESSION: No acute intracranial abnormality. Reading Location: [id number]
--- OUTSIDE RECORDS SUMMARY | 2025-05-25 18:04 | XMS RPT_ITS | CCD ---
Author Organization [facility]ini[facility] Care Team Providers Care Clothes Designer Name Role Phone VICKIE PAEZ Unavailable Unavailable [...] Referring Provider MARYJANE Chilel Attending Provider Roof CONTROL OPERATOR, CONTROL OPERATOR-Juve Fish Attending Provider Dr. Federico Vigil Primary Care Provider Dr. Federico Vigil Referring Provider Dr. Hang Pool Attending Provider [phone] Luis A Rios Attending Provider [phone] MARYJANE Chilel Attending Provider Roof CONTROL OPERATOR, CONTROL OPERATOR-C Abram Fish Attending Provider Federico Vigil MD [...] ELDERREDD, FEDERICO Linares Primary Care Unavailable MALATHI GALEAS Attending Unavailable ELDERVIKTORCK, FEDERICO Linares Primary Care [...] Seo Unavailable Juan Oliver MD Unavailable Tannhof BOARD CERTIFIED ARTS THERAPIST.THRESHING MACHINE OPERATOR, Ruth Unavailable Juan Oliver MD Unavailable Maciel BOARD CERTIFIED ARTS THERAPIST.THRESHING MACHINE OPERATOR, Phani Unavailable Juan Oliver MD Unavailable Tannhof BOARD CERTIFIED ARTS THERAPIST.THRESHING MACHINE OPERATOR, Ruth Unavailable Unavail able Yaritza VIDALES, Dr. Francisco Primary Care Provider Yaritza VIDALES, Dr. Francisco Referring Provider Karine Betancur Attending Provider Yrn VIDALES, Dr. Mauricio Attending Provider Gabriel VIDALES, Dr. Gunn Attending Provider Phoebe Sandoval Attending Provider Benito VIDALES, Dr. Martinez Attending Provider Dr. Juan Oliver MD Referring Provider Karine Betancur Referring Provider Dr. Michael Ko MD, Chi Primary Care Provider Dr. Osbaldo Vernon MD Attending Provider Saulo VIDALES, Dr. Roblero Referring Provider Dr. Michael Ko MD, Chi Attending Provider Maikel VIDALES, Dr. Michael Braswell Referring Provider Phoebe Sandoval Referring Provider Bettie VIDALES, Dr. Bhatt Attending Provider Yaritza VIDALES, Dr. Francisco Primary Care Provider Yaritza VIDALES, Dr. Francisco Referring Provider Sameera WESLEY, Karine Barnard Attending Provider Yaritza VIDALES, Dr. Francisco Primary Care Provider [phone] Yaritza VIDALES, Dr. Francisco Referring Provider Roof CONTROL OPERATOR-C, Abram H Attending Provider Roof CONTROL OPERATOR-C, Abram H Referring Provider Saulo VIDALES, Dr. Roblero Other Provider Benito VIDALES, Juan Unavailable Maria Eugenia VIDALES, Dr. Valderrama Attending Provider Maikel VIDALES, Dr. Michael Braswell Primary Care Physician Saulo VIDALES, Dr. Roblero Attending Physician Saulo VIDALES, Dr. Roblero Referring Provider Roof CONTROL OPERATOR-C, Abram H Attending Physician Saulo VIDALES, Dr. Roblero Nurse Practitioner Maikel VIDALES, Dr. Michael Braswell Referring Provider Benito VIDALES, Dr. Martinez Attending Physician Benito VIDALES, Dr. Martinez Referring Provider Maria Eugenia VIDALES, Dr. Valderrama Attending Physician FEDERICO VIGIL Primary Care Unavailable RUTH MIRANDA Referring Unavailabl FEDERICO Whatley Primary Care Unavailable FEDERICO VIGIL Attending Unavailable FEDERICO VIGIL Primary Care Unavailable FEDERICO VIGIL Primary Care Unavailable RUTH MIRANDA Referring Unavailabl FEDERICO Whatley Primary Care Unavailable FEDERICO VIGIL Primary Care Unavailable RUTH MIRANDA Referring Unavailabl SUMAYA Kendrick Referring Unavailable FEDERICO VIGIL Primary Care Unavailable RUTH MIRANDA Attending UnavailFEDERICO Davis Primary Care Unavailable FEDERICO VIGIL Primary Care Unavailable RUTH MIRANDA Attending Unavailabl e ELDERBROCK, FEDERICO D Primary Care Unavailable RUTH MIRANDA Referring Unavailabl PHANI Seth Attending Unavailable [facility] Linares Primary Care Unavailable SELF Referring Unavailable DANNY JUÁREZ Attending Unavailable [place], FEDERICO D Primary Care Unavailable [facility], FEDERICO D Primary Care Unavailable TANNHOJacobo, RUTH MCDONNELL Attending Unavailabl e ELDERBROCK, FEDERICO D Primary Care Unavailable RUTH MIRANDA Attending Unavailabl e ELDERBROCK, FEDERICO D Primary Care Unavailable DEANNAHOJacobo, URTH MCDONNELL Attending Unavailabl e Elder[place], Federico Primary Care Unavailable Prayson, Juan Referring Unavailable PraysonSolomonJuan Attending Unavailable Prayson, Juan Referring Unavailable PraysonDanielas Attending Unavailable Yaritza, Federico Primary Care Unavailable Yaritza, Federico Primary Care Unavailable Hang Pool Attending Unavailable Amadou Wade Admitting Unavailable Amadou Wade Consulting Unavailable Andres Luciano Referring Unavailable Patel Poolag Consulting Unavailable Prayson, Juan Consulting Unavailable Maikel, Michael Chi Primary Care Unavailable Roof CONTROL OPERATOR, Abram H Referring Unavailable Roof CONTROL OPERATOR, Abram Fish Attending Unavailable Maikel, Michael Chi Primary Care Unavailable Saulo, Osbaldo Referring Unavailable Saulo Osbaldo Attending Unavailable Yaritza, Federico Primary Care Unavailable Mauro Amadou Consulting Unavailable Mostbrooke, Amadou Admitting Unavailable Jonnaam, Jeniffer Brandy Attending Unavailable Ankita Andres Referring Unavailable Yrn, Hang Consulting Unavailable Benito, Juan Consulting Unavailable Janneth Nur Consulting Unavailable Federico Beltrán Attending Unavailable Yaritza, Federico Primary Care Unavailable Pool, Hang Admitting Unavailable Pool, Hang Referring Unavailable Mostbrooke Amadou Consulting Unavailable Paintsil, [place] Consulting Unavailable Judson, Achintya Consulting Unavailable Destiny Vuong Consulting Unavailable Jayce Shay Consulting Unavailable Jayce Corrales Consulting Unavailable Miller Gonzalez Consulting Unavailable Renato Velázquez Consulting Unavailable Mian Avila Consulting Unavailable Janneth Nur Consulting Unavailable Federico Beltrán Consulting Unavailable Gertrudis Glassa Brandy Consulting Unavailable Juan Tran Consulting Unavailable Rashad La Consulting Unavailable Carlo Rollins Consulting Unavailable Audrey Burks Consulting Unavailable Francisco Blankenship Consulting Unavailable Pool, Hang Consulting Unavailable Troncoso, Phoebe Referring Unavailable Maikel, Michael Chi Primary Care Unavailable Troncoso, Phoebe Attending Unavailable Amadou Wade Attending Unavailable Elder[place], Federico Primary Care Unavailable Elder[place], Federico Referring Unavailable Pool, Hang Attending Unavailable Maikel, Michael Chi Primary Care Unavailable Roof CONTROL OPERATOR, Abram H Referring Unavailable Saulo, Osbaldo Consulting Unavailable Roof CONTROL OPERATOR, Abram Fish Attending Unavailable Maikel, Michael Chi Primary Care Unavailable Saulo, Osbaldo Referring Unavailable Saulo, Osbaldo Attending Unavailable Maikel, Michael Chi Primary Care Unavailable Maikel, Michael Chi Referring Unavailable Maikel, Michael Chi Attending Unavailable Maikel, Michael Chi Primary Care Unavailable Karine Betancur Referring Unavail able Karine Betancur Attending Unavail able [place], Federico Primary Care Unavailable Prayson Juan Referring Unavailable Prayson Juan Attending Unavailable Maikel, Michael Chi Referring Unavailable Maikel, Michael Chi Attending Unavailable Maikel, Michael Chi Primary Care Unavailable Maikel, Michael Chi Primary Care Unavailable Roof CONTROL OPERATOR, Abram Fish Attending Unavailable Roof CONTROL OPERATOR, Abram H Referring Unavailable Gabriel, [place] Attending Unavailable Elderbrock, Federico Primary Care Unavailable Elderbrock, Federico Referring Unavailable Elderbrock, Federico Primary Care Unavailable Pool, Hang Attending Unavailable Elderbrock, Federico Referring Unavailable Maikel, Michael Chi Primary Care Unavailable Saulo, Osbaldo Attending Unavailable Elderbro[place], Federico Primary Care Unavailable Gabriel, [place] Attending Unavailable Elderbrock, Federico Referring Unavailable Elderbrock, Federico Primary Care Unavailable Karine Betancur Attending Unavail able Satti, Lavelle Referring Unavailable Maikel, Michael Chi Primary Care Unavailable Satti, Lavelle Attending Unavailable Maikel, Michael Chi Primary Care Unavailable Maikel, Michael Chi Referring Unavailable Roof CONTROL OPERATOR, Abram Fish Attending Unavailable Gabriel, [place] Attending Unavailable Elderbrock, Federico Primary Care Unavailable Elderbrock, Federico Primary Care Unavailable Elderbro[place], Federico Referring Unavailable Kaycee Sanchez Attending Unavailable Satti, Lavelle Attending Unavailable Maikel, Michael Chi Primary Care Unavailable Maikel, Michael Chi Referring Unavailable Elderbrock, Federico Referring Unavailable Elder[place], Federico Primary Care Unavailable Troncoso Phoebe Attending Unavailable Elderbrock, Federico Primary Care Unavailable Pool, Hang Referring Unavailable Eugenio Mauricio Attending Unavailable Elderbrock, Federico Primary Care Unavailable Pool, Hang Attending Unavailable Pool, Hang Admitting Unavailable Pool, Hang Referring Unavailable Amadou Wade Consulting Unavailable Paintsil, [place] Consulting Unavailable Judson, Achintya Consulting Unavailable Destiny Vuong Consulting Unavailable Jayce Shay Consulting Unavailable Jayce Corrales Consulting Unavailable Miller Gonzalez Consulting Unavailable Olemelizae, Ifijen Consulting Unavailable Austin, Mian Consulting Unavailable Janneth Nur Consulting Unavailable Tereletsjakob, Federico Consulting Unavailable Koram, Jeniffer Brandy Consulting Unavailable Juan Tran Consulting Unavailable Abhinav Rashad Consulting Unavailable Ayo, Carlo Consulting Unavailable Audrey Burks Consulting Unavailable Pattie, Francisco Consulting Unavailable Pool, Hang Consulting [facility] Unavailable Pool, Hang Referring Unavailable Mauro, Amadou Consulting Unavailable Audrey Burks Attending Unavailable Paintsil, [place] Consulting Unavailable Judson, Achintya Consulting Unavailable Destiny Vuong Consulting Unavailable Jayce Shay Consulting Unavailable Jayce Corrales Consulting Unavailable Lisa, Miller Consulting Unavailable Oleghe, Ifijen Consulting Unavailable Austin, Mian Consulting Unavailable Janneth Nur Consulting Unavailable Tereletsky, Federico Consulting Unavailable Koram, Jeniffer Brandy Consulting Unavailable Juan Tran Consulting Unavailable Abhinav, Rashad Consulting Unavailable Rollins, Acrlo Consulting Unavailable Burks, Audrey Consulting Unavailable Pattie, Francisco Consulting Unavailable Pool, Hang Consulting Unavailable [facility] Primary Care Unavailable Pool, Hang Attending Unavailable Pool, Hang Consulting Unavailable Pool, Hang Referring Unavailable [facility] Primary Care Unavailable Yrn Hang Attending Unavailable Andres Luciano Referring Unavailable Jonnaam, Jeniffer Brandy Attending Unavailable Janneth Nur Consulting Unavailable Koram, Jeniffer Brandy Consulting Unavailable Janneth Nur Attending Unavailable Maikel, Michael Chi Primary Care Unavailable Osbaldo Vernon Attending Unavailable Maikel, Michael Chi Primary Care Unavailable Phoebe Troncoso Referring Unavailable Miller Alexandre Attending Unavailable Juan Oliver Referring Unavailable Juan Oliver Attending Unavailable Maikel, Michael Chi Primary Care Unavailable Allergies Allergy Classification Reported Allergen(s) Allergy Type Date of Onset Reaction(s) Facility NSAIDs (8 sources) Indomethacin Drug Allergy 5 Diarrhea [facility] Work Phone: Spironolactone (3 sources) Spironolactone Drug Allergy 3 Other: See Comments [facility] (20 sources) indomethacin; Translations: [INDOMETHACIN SODIUM] Drug Allergy 5 Diarrhea [facility] Repository (20 sources) meloxicam; Translations: [MELOXICAM] Drug Allergy 5 Diarrhea [facility] (1 source) Indomethacin Drug Allergy 4 nausea [facility] Work Phone: (20 sources) Indomethacin Drug Allergy 3 Diarrhea, Bleeding [facility] (20 sources) Spironolactone; Translations: [SPIRONOLACTONE] Drug Allergy 3 Other: See Comments [facility] (20 sources) Hydroxychloroquine ; Translations: [HYDROXYCHLOROQUIN E] Drug Allergy 4 Itching [facility] (1 source) Indomethacin Drug Allergy 5 [facility] (1 source) Spironolactone Drug Allergy 5 [facility] Repository Medications Current Medications Medication Drug Class(es) Dates Sig (Normalized) Sig (Original) acetaminophen 325 mg oral capsule (20 sources) Start: 06-29-2024 take 2 capsules by mouth every six hours as needed for pain Start: 11-04-2022 End: 06-21-2024 take 1 tablet [...] take 1 tablet by mouth twice daily Comment on above: Take 1 tablet by [...] Platelet Aggregation Inhibitor, Nonsteroidal Anti-inflammatory Drug Start: 03-07-2025 take 1 tablet by mouth once daily Start: 06-11-2024 End: 01-22-2025 take 1 capsule by mouth once daily Aspirin 81 mg capsule Discontinued 81 mg PO DAILY June 11, 2024 1:00am January 22, 2025 8:40am Start: 12-09-2017 End: 09-07-2022 take 1 tablet [...] Take 81 mg by mouth once daily. benzonatate 100 mg oral capsule (20 sources) [...] for cough for up to 10 days. calcium carbonate 500 mg chewable tablet (2 sources) Start: 03-07-2025 take 1 tablet by mouth once daily codeine phosphate 2 mg/ml / guaiFENesin 20 [...] above: Take 1 tablet by inocente twice daily for 10 days. doxycycline hyclate 100 mg oral tablet (20 sources) Tetracycline-cla ss Drug Start: 05-24-2024 End: 06-03-2024 take 1 tablet by mouth twice daily doxycycline (VIBRA-TABS) 100 mg tablet Indications: Sinobronchitis Take 1 tablet by mouth two times a day for 10 days. 20 tablet 05/24/2024 06/03/2024 Active Start: 07-04-2022 End: 09-07-2022 take 1 capsule by mouth twice daily Doxycycline Monohydrate 100 mg capsule Discontinued 100 mg PO TWICE A DAY 20 0 July 04, 2022 1:00am September 07, 2022 4:22pm gabapentin 300 mg oral capsule (14 sources) Anti-epileptic Agent Start: 09-14-2024 take 1 capsule by mouth twice daily Lactobacillus acidophilus (20 sources) take 1 capsule by mouth once daily Lactobacillus acidophilus (ACIDOPHILUS ORAL) Take 1 capsule by mouth once daily. Active take 1 capsule by mouth once car ly Lactobacillus acidophilus (ACIDOPHILUS ORAL) Take 1 capsule by mouth once daily. 0 Active Comment on above: Take 1 capsule by mo [facility] once daily. melatonin 5 mg oral capsule (20 sources) Start: 09-07-2022 End: 09-10-2022 take 1 capsule by mouth at bedtime Start: 09-07-2022 End: 09-10-2022 Melatonin Discontinued MG [...] TABLET PO DAILY September 13, 2023 12:00am pantoprazole 20 mg delayed release oral tablet (20 sources) Proton Pump Inhibitor Start: 07-29-2022 End: 05-16-2025 take 1 tablet by mouth once daily Comment on above: Take 1 tablet by inocente th daily before breakfast. Take on empty stomach, 1/2 hr before meal. polyethylene glycol [id number] mg powder for oral solution (20 sources) Osmotic Laxative Start: 09-05-2023 End: 02-16-2024 potassium chloride 20 meq extended release oral tablet (20 sources) Start: 11-29-2024 End: 03-25-2025 take 1 tablet by mouth once daily predniSONE 20 mg oral tablet (20 sources) [...] on above: Take 2 tablets by mo [facility] once daily for 4 days. Take daily with food. Take 4 tabs daily fo r 3 days, then 2 tabs daily for 3 days, then 1 tab daily for 3 days with food. Take 1.2 tablets by mouth as needed. Take 1 tablet by inocente as needed. Take 2.5 mg by mouth [...] follow with 5 ml of normal saline simvastatin 20 mg oral tablet (20 sources) HMG-CoA Reductase Inhibitor Start: 02-29-20 End: 12-23-19 take 1 tablet by mouth once daily in the evening Comment on above: Take 1 tablet by inocente once daily. tiZANidine 4 mg oral tablet (2 sources) Central alpha-2 Adrenergic Agonist Start: 03-29-20 End: 04-08-20 take 1 tablet by mouth every eight [...] days. 9 tablet 0 12/27/2023 12/30/2023 Active vit d3 (2 sources) Start: 03-07-2025 Start: 03-07-2025 vit d3 Active PO DAILY March 07, 2025 12:00am Vitamin B Complex (20 sources) Start: 09-13-2023 [...] 1 tablet by inocente th once daily. Completed/Discontinued Medications Medication Drug Class(es) Dates Sig (Normalized) Sig (Original) acetaminophen 325 mg / HYDROcodone bitartrate 5 mg oral tablet (20 sources) Opioid Agonist Start: 06-21-2024 End: 06-29-2024 Hydrocodone-Acetamino phen 5-325 mg Tablet Discontinued 1 {tbl} PO EVERY 6 HOURS NEEDED as needed for Pain Score 4-10 20 5 0 June 21, 2024 June 29, 2024 12:58pm Status post laminectomy Other specified postprocedural states Start: 07-04-2022 End: 09-13-2022 Hydrocodone-Acetaminophen 5- 325 mg tablet Discontinued 1 {tbl} PO EVERY 6 HOURS as needed for pain 10 3 0 July 04, 2022 September 13, 2022 12:34pm Gout Gout, unspecified Start: 07-04-2022 End: 09-13-2022 take 1 tablet by mouth every six hours Hydrocodone-Acetaminophen Discontinued 1 TABLET PO EVERY 6 HOURS 10 3 July 04, 2022 September 13, 2022 12:34pm acetaminophen 325 mg / oxyCODONE hydrochloride 5 mg oral tablet (16 sources) Opioid Agonist Start: 06-07-2024 End: 06-21-2024 Oxycodone-Acetaminophen 5-32 5 mg tablet Discontinued 1 {tbl} PO THREE TIMES A DAY as needed for pain 0 June 07, 2024 1:00am June 21, 2024 [...] above: Take 1 tablet by inocente th three times daily for 21 doses. TID for 7 days followed by 200 mg once daily for 3 months (Total of 111 tabs) apixaban 5 mg oral tablet (20 sources) Factor Xa Inhibitor Start: 3 End: 5 take 1 tablet by mouth twice daily Apixaban (Eliquis) 5 mg tablet Discontinued 5 mg PO TWICE A DAY 180 March 12, 2024 9:02am July 24, 2024 11:48am blood thinner Comment on above: Take 1 tablet by inocente th twice daily. TWICE A DAY Take 5 mg by mouth t wice daily. atorvastatin 40 mg oral tablet (9 sources) HMG-CoA Reductase Inhibitor Start: 5 End: 5 take 1 tablet by mouth once daily Atorvastatin (Lipitor) 40 mg tablet Discontinued 40 mg PO daily 90 December 11, 2024 12:00am March 07, 2025 10:08am 5 ml bupivacaine hydrochloride 5 mg/ml injection (3 sources) Amide Local Anesthetic Start: 3 End: BUPivacaine (PF) 0.5 % (5 mg/mL) 2.5 mg injection Start: 04-22-2022 End: 04-20-2022 bupivacaine (PF) 0.5 % (5 mg /mL) 2.5 mg injection Start: 11-25-2021 End: 11-25-2021 bupivacaine (PF) 0.5 % (5 mg /mL) 2.5 mg injection carvedilol 6.25 mg oral tablet (20 sources) alpha-Adrenergic Eppe, beta-Adrenergic Pepe Start: 11-04-2022 End: 12-24-2024 take 1 tablet by mouth twice daily at mealtime Carvedilol 6.25 mg tablet Discontinued 6.25 mg PO TWICE A DAY 180 January 04, 2024 10:12am Kathy 9th, 2025 8:25am must administer with a meal/food Start: 10-12-2022 [...] mg Tablet Discontinued 75 mg PO DAILY 90 October 07, 2022 12:00am October 25, 2023 [...] to 10 days. 30 tablet 05/31/2024 06/10/2024 dapagliflozin 10 mg oral tablet (9 sources) Sodium-Glucose Cotransporter 2 Inhibitor Start: End: take 1 tablet by mouth once daily Dapagliflozin Propanediol (Farxiga) 10 mg tablet Discontinued 10 mg PO daily 90 December 11, 2024 12:00am January 22, 2025 8:40am 1 ml dexamethasone phosphate 4 mg/ml injection (3 sources) Corticosteroid Start: 023 End: dexAMETHasone sodium phosphate 2 mg injection [...] 1 tablet by inocente th once daily. docusate sodium 50 mg / sennosides, retirement 8.6 mg oral tablet (14 sources) Start: 06-21-20 End: 01-23-20 Sennosides-Docusate Sodium (Stimulant Laxative Plus) 8.6-50 mg Tablet Discontinued 2 {tbl} PO TWICE A DAY as needed for constipation June 21, 2024 1:26pm January 22, 2025 8:41am empagliflozin 10 mg oral tablet (20 sources) Sodium-Glucose Cotransporter 2 Inhibitor Start: 11-05-19 End: 04-26-20 take 1 tablet by mouth once daily Empagliflozin (Jardiance) 10 mg tablet Discontinued 10 mg PO DAILY 30 November 04, 2022 10:18am February 03, 2023 [...] tablet by mouth once daily. 30 tablet 11 04/08/2023 05/18/2023 Discontinued Comment on above: Take 1 tablet by inocente once daily. furosemide 40 mg oral tablet (20 sources) Loop Diuretic Start: 08-09-2023 End: 03-07-2025 take 1 tablet by mouth once daily Furosemide 40 mg tablet Discontinued 40 mg PO DAILY 90 3 December 13, 2024 8:53am March 07, 2025 10:10am Swelling or weight gain Start: 02-10-2023 End: 08-09-2023 Furosemide (Lasix) 40 mg tab let Discontinued 20 mg PO DAILY as needed for diuretic 0 0 February 10, 2023 11:00am August 09, 2023 2:40pm Start: 09-07-2022 End: 05-18-2023 take 1 tablet by mouth once daily as needed Furosemide (Lasix) 40 mg tablet Discontinued 40 mg PO DAILY as needed for diuretic 90 3 October 18, 2022 11:11am February 10, 2023 [...] in the [place] contrast administration guidelines link. Lactobacillus Combination No.4 (Probiotic) 3 billion cell capsule (20 sources) Start: 023 End: 025 take 3 capsules by mouth once daily Lactobacillus Combination No.4 (Probiotic) 3 billion cell capsule Discontinued 3000 NMA PO DAILY July 15, 2023 1:00am January 22, 2025 8:40am administer with a meal Start: 07-15-2023 take [...] 15, 2023 12:00am administer with a meal lisinopril 5 mg oral tablet (20 sources) Angiotensin Converting Enzyme Inhibitor Start: 11-29-2024 End: 11-29-2024 take 1 tablet by mouth once daily Lisinopril 5 mg tablet Discontinued 5 mg PO daily November 29, 2024 1:17pm November 29, 2024 1:26pm on hold Start: 01-13-2024 End: 11-29-2024 take 1 tablet by mouth twice daily Lisinopril 5 mg tablet Discontinued 5 mg PO TWICE A DAY 60 May 29, 2024 11:15am August 20, 2024 11:03am on hold Start: 01-13-2024 End: 04-23-2024 take 1 tablet by mouth once daily Lisinopril 5 mg tablet Discontinued 5 mg PO DAILY 30 January 13, 2024 12:00am April 23, 2024 [...] tablet Discontinued 2.5 mg PO DAILY 0 0 February 10, 2023 10:59am May 19, [...] mg tablet Discontinued 5 mg PO DAILY 90 November 04, 2022 10:18am February 10, 2023 11:00am Start: 09-13-2022 End: 11-04-2022 take 1 tablet by mouth once daily Lisinopril 2.5 mg tablet Discontinued 2.5 mg PO DAILY 30 October 06, 2022 1:50pm October 07, 2022 [...] 02-29-2012 LISINOPRIL 10 MG TABS daily LISINOPRIL [id number] Magali Parekh Comment on above: Take 1 tablet by inocente th once daily. Take 5 mg by mouth o nce daily. LORazepam 1 mg oral tablet (15 sources) Benzodiazepine Start: 11-04-19 End: 02-16-20 Lorazepam (Ativan) 1 mg tablet Discontinued 1 mg PO .COMPLEX 2 0 November 04, 2023 12:00am February 16, 2024 9:29am 1 hour before MRI for claustrophobia 1 mg orally 1 hour before MRI for claustrophobia; Magnesium (20 sources) Start: 07-31-19 End: 09-13-19 take 2 tablets by mouth at bedtime [...] 12:00am magnesium citrate 58.2 mg/ml oral solution (20 sources) Start: 05-11-2023 End: 07-15-2023 take 1 mL by mouth once as needed for constipation Magnesium Citrate solution Discontinued 300 mL PO ONE TIME as needed for constipation 2 0 May 11, 2023 2:00am July 15, 2023 11:56am Start: 05-11-2023 End: 07-15-2023 take 1 mL by mouth once Magnesium Citrate Discontinu ed 300 ML PO ONE TIME May 11, 2023 2:00am July 15, 2023 11:56am magnesium oxide 500 mg oral capsule (20 sources) Start: 09-13-2023 End: 01-22-2025 take 1 capsule by mouth once daily Magnesium Oxide 500 mg capsule Discontinued 500 mg PO DAILY September 13, 2023 1:00am January 22, 2025 8:41am take 1 tablet by mouth once francisco javier y Magnesium Oxide 500 mg tab Take 1 tablet by mouth once daily. Active Comment on above: Take 1 tablet by inocente th once daily. methocarbamol 500 mg oral tablet (14 sources) Muscle Relaxant Start: 4 End: 5 Methocarbamol 500 mg Tablet Discontinued 750 mg PO THREE TIMES A DAY as needed for pain/spasms 30 0 June 21, 2024 1:26pm September 14, 2024 11:52am 24 hr metoprolol succinate 25 mg extended release oral tablet (20 sources) beta-Adrenergic Pepe Start: 3 End: 3 take 1 tablet by mouth once daily Metoprolol Succinate 25 mg tablet extended release 24 hr Discontinued 25 mg PO DAILY September 07, 2022 1:00am October 12, 2022 9:17am blood pressure Comment on above: Take 1 tablet by inocente th once daily. TAKE 1 TABLET BY INOCENTE TH EVERY DAY MULTIPLE VITAMIN (1 source) Start: 2 MULTIVITAMINS TABS daily MULTIPLE VITAMIN [id number] Magali Parekh multivitamin capsule (15 sources) Start: 8 End: 3 take 1 capsule by mouth once daily multivitamin capsule Discontinued 1 CAP PO daily December 08, 2017 11:00pm September 10, 2022 2:55pm Start: 12-09-2017 End: 09-10-2022 take 1 capsule by mouth once daily multivitamin capsule Discontinued 1 CAP PO daily December 09, 2017 12:00am September 10, 2022 3:55pm Start: 12-09-2017 take 1 capsule by mo [facility] once daily multivitamin capsule Active 1 CAP PO daily December 08, 2017 11:00pm Multivitamin capsule (14 sources) Start: 12-09-2017 End: 09-10-2022 Multivitamin capsule Discontinued 1 NMA PO daily December 09, 2017 12:00am September 10, 2022 3:55pm Multivitamin liquid (14 sources) Start: 09-10-2022 End: 09-13-2023 take 1 mL by mouth once daily Multivitamin liquid Discontinued 5 mL PO DAILY September 10, 2022 1:00am September 13, 2023 2:03pm vitamin Start: 09-10-2022 End: 09-13-2023 take 1 mL by mouth once daily Multivitamin liquid Disc ontinued 5 mL PO DAILY September 10, 2022 [...] ML PO DAILY September 10, 2022 1:00am Multivitamin With Iron-Double End Tenoner Setter al tablet (14 sources) Start: 09-13-2023 End: 01-22-2025 Multivitamin With Iron-Double End Tenoner Setter al tablet Discontinued 1 {tbl} PO DAILY September 13, 2023 1:00am January 22, 2025 8:41am Start: 09-13-2023 Multivitamin W ith Iron-Mineral tablet Active 1 {tbl} PO DAILY September 13, 2023 1:00am multivitamins ORAL Liqd (20 sources) End: 11-29-2022 multivitamins ORAL Liqd TAKE S 1 OUNCE DAILY 11/29/2022 Discontinued (Course of therapy completed) End: 11-29-2022 multivitamins ORAL Liqd TAKE S 1 OUNCE DAILY 0 11/29/2022 Discontinued (Course of therapy completed) multivitamins OR AL Liqd TAKES 1 OUNCE DAILY 0 Active Comment on above: TAKES 1 OUNCE DAILY [place] 9-Upe-Bob-Fish Oil (13 sources) Start: 09-10-2022 End: 11-04-2022 take 1 capsule by mouth once daily [place] 2-Gnr-Jmi-Fish Oil Discontinued 1 CAP PO DAILY September 10, 2022 12:00am November 04, 2022 8:55am Start: 09-10-2022 End: 11-04-2022 take 1 capsule by mouth once daily [place] 3-Tdc-Alr-Fish Oil Discontinued 1 CAP PO DAILY September 10, 2022 1:00am November 04, 2022 9:55am Start: 09-10-2022 take 1 capsule by mo uth once daily [place] 1-Boq-Zcd-Fish Oil Active 1 CAP PO DAILY September 10, 2022 1:00am omega 4-qau-avy-fish oil 500-100-1,000 mg cap (20 sources) End: 11-29-2022 take 1 capsule by mouth once daily omega 4-bji-wli-fish oil 500-100-1,000 mg cap Take 1 capsule by mouth once daily. 11/29/2022 Discontinued (Course of therapy completed) End: 11-29-2022 take 1 capsule by mouth once daily omega 3-qta-nbp-fish oil 500-100-1,000 mg cap Take 1 capsule by mouth once daily. 0 11/29/2022 Discontinued (Course of therapy completed) take 1 capsule by mo uth once daily omega 8-vtu-vsh-fish oil 500-100-1,000 mg cap Take 1 capsule by mouth once daily. 0 Active Comment on above: Take 1 capsule by mo uth once daily. [place] 0-Gqe-Zxx-Fish Oil 500-100-1,000 mg capsule (14 sources) Start: 09-10-2022 End: 11-04-2022 [place] 9-Iiq-Xts-Fish Oil 500-100-1,000 mg capsule Discontinued 1 NMA PO DAILY September 10, 2022 1:00am November 04, 2022 9:55am supplement Start: 09-10-2022 End: 11-04-2022 [place] 9-Yzl-Mrx-Fish Oil 500 -100-1,000 mg capsule Discontinued 1 NMA PO DAILY September 10, 2022 1:00am November 04, 2022 9:55am omeprazole 20 mg delayed release oral capsule (20 sources) Proton Pump Inhibitor Start: 12-23-2020 End: 11-29-2022 take 1 capsule by mouth once daily Omeprazole 20 mg capsule,delayed release(/EC) Discontinued 20 mg PO DAILY July 03, 2022 1:00am September 07, 2022 4:23pm Start: 03-21-2020 End: 09-23-2020 take 1 capsule by mouth once daily before breakfast omeprazole (PRILOSEC) 20 mg capsule Take 1 capsule by mouth daily before breakfast. 1/2 hr before meal. 30 capsule 11 03/21/2020 09/23/2020 Discontinued Comment on above: Take 1 capsule by mo ut once daily. TAKE 1 CAPSULE BY MO UT EVERY DAY oxyCODONE hydrochloride 5 mg oral tablet (20 sources) Opioid Agonist Start: End: take 1 tablet by mouth every four hours as needed for pain Oxycodone 5 mg Tablet Discontinued 5 mg PO EVERY 4 HOURS NEEDED as needed for Pain Score 4-10 30 35 0 June 29, 2024 September 14, 2024 11:53am Compression fracture of vertebra Start: 06-29-2024 End: 09-03-2024 take 1 tablet [...] 10, 2022 3:49pm May 10, 2023 9:53pm supplement Start: 09-07-2022 End: 09-10-2022 take 1 tablet [...] 99 % by mouth t wice daily. sacubitril 49 mg / valsartan 51 mg oral tablet (20 sources) Angiotensin 2 Receptor Pepe Start: 12-12-19 End: 03-08-20 Sacubitril-Valsarta n (Entresto) 49-51 mg tablet Discontinued 1 {tbl} PO TWICE A DAY 180 3 December 24, 2024 4:24pm January 22, 2025 8:45am sildenafil 100 mg oral tablet (20 sources) Phosphodiesterase 5 Inhibitor Start: 09-10-19 End: 09-05-19 24 take 0.5-1 tablets by mouth once daily [...] tablet Discontinued 25 mg PO DAILY 90 3 December 30, 2022 12:00am February 03, 2023 [...] 10, 2022 1:00am November 04, 2022 9:55am supplement Comment on above: Take 100 mg by mouth once daily. Vitamin B Comp And C No.3 (B Complex Plus Vitamin C) 37-34-17-5-300 mg capsule (20 sources) Start: 09-07-2022 End: 09-10-2022 Vitamin B Comp And C No.3 (B Complex Plus Vitamin C) 14-49-72-5-300 mg capsule Discontinued 1 NMA PO DAILY September 07, 2022 1:00am September 10, 2022 3:58pm give with food (meal/snack) Start: 09-07-2022 End: 09-10-2022 Vitamin B Comp And C No.3 (B Complex Plus Vitamin C) 60-18-12-5-300 mg capsule Discontinued 1 CAP PO DAILY September 07, 2022 12:00am September 10, 2022 2:58pm give with food (meal/snack) Start: 09-07-2022 End: 09-10-2022 Vitamin B Comp And C No.3 (B Complex Plus Vitamin C) 41-62-05-5-300 mg capsule Discontinued 1 CAP PO DAILY September 07, 2022 1:00am September 10, 2022 3:58pm give with food (meal/snack) Vitamin B Complex tablet (14 sources) Start: 09-13-2023 End: 03-07-2025 Vitamin B Complex tablet Dis continued 1 {tbl} PO DAILY September 13, 2023 1:00am March 07, 2025 10:09am Start: 09-13-2023 Vitamin B Comp miky tablet Active 1 {tbl} PO DAILY September 13, 2023 1:00am Problems Active Problems Problem Classification Problem Date Documented Da te Episodic/Chronic Abdominal pain (20 sources) Upper abdominal pain; Translations: [Upper abdominal pain, unspecified] 05-02-2023 Episodic Acquired foot deformities (1 source) Tailor's bunion of right foot; Translations: [Bunionette of right foot] Episodic Acquired foot deformities (2 sources) Tailor's bunion of left foot; Translations: [Bunionette of left foot] Episodic Allergic reactions (1 source) Contact dermatitis; Translations: [Unspecified contact dermatitis, unspecified cause] 03-29-2024 Episodic Blindness and vision defects (1 source) Eye / vision finding; Translations: [Unspecified visual disturbance] 11-10-2023 Episodic Cardiac dysrhythmias (20 sources) Atrial fibrillation; Translations: [Unspecified atrial fibrillation] Onset: 3 08-30-2022 Chronic Comment on above: The patient has a hi story of paroxysmal atrial fibrillation, status post ablation, and is currently in a regular rhythm. His [id number] score is 5 (Congestive heart failure, Hypertension, Age =75 [2 points], Vascular disease), indicating a high annual risk of thromboembolic stroke. Chronic oral anticoagulation is strongly indicated and clinically necessary. The current regimen of apixaban provides appropriate stroke risk reduction. His physical exam is absent of signs of thromboembolism.A dual-chamber ICD would provide continuous A-fib monitoring. Cardiac dysrhythmias (20 sources) Bradycardia; Translations: [Bradycardia, unspecified] Onset: 5 05-03-2023 Episodic Comment on above: Patient would benefi t from dual-chamber AICD both for bradycardia support and for atrial fibrillation monitoring. Conditions associated with dizziness or vertigo (20 sources) Dizziness; Translations: [Dizziness and giddiness] Episodic Congestive heart failure; nonhypertensive (3 sources) Heart failure with reduced ejection fraction; Translations: [Unspecified systolic (congestive) heart failure] Onset: 5 03-11-2025 Chronic Coronary atherosclerosis and other heart disease (20 sources) Coronary arteriosclerosis; Translations: [Atherosclerotic heart disease of [place] coronary artery without angina pectoris] Onset: 3 10-12-2022 Chronic Comment on above: The patient has sign ificant coronary artery disease, which is the etiology of his ischemic cardiomyopathy. He is status post successful percutaneous coronary intervention with drug-eluting stent placement to the first obtuse marginal artery in September 2022. He has residual moderate, non-obstructive disease in the left anterior descending artery. His clinical presentation is stable without anginal symptoms. His ongoing medical therapy is appropriate for secondary prevention of major adverse cardiovascular events. Deficiency and other anemia (20 sources) Anemia; Translations: [Anemia, unspecified] Onset: 3 05-19-2023 Episodic Deficiency and other anemia (10 sources) Iron deficiency anemia; Translations: [Iron deficiency anemia, unspecified] 08-23-2023 Episodic Diabetes mellitus without complication (2 sources) Increased glucose level; Translations: [Other abnormal glucose] 01-20-2024 Episodic Disorders of lipid metabolism (20 sources) Mixed hyperlipidemia; Translations: [Mixed hyperlipidemia] Onset: 5 10-27-2015 Chronic Diverticulosis and diverticulitis (20 sources) Diverticulosis of colon; Translations: [Diverticulosis of large intestine without perforation or abscess without bleeding] Onset: 7 08-24-2006 Chronic E Codes: Fall (20 sources) Fall; Translations: [Unspecified fall, initial encounter] 07-31-2023 Episodic Esophageal disorders (20 sources) Gastroesophageal reflux disease; Translations: [Gastro-esophageal reflux disease without esophagitis] Onset: 7 04-27-2017 Chronic Essential hypertension (20 sources) Benign essential hypertension; Translations: [Essential (primary) hypertension] Onset: 5 07-13-2021 Chronic Comment on above: Blood pressure stabl e. Continue on current blood pressure medications. Gout and other crystal arthropathies (20 sources) [...] [Other fatigue] 11-04-2022 Episodic Nausea and vomiting (20 sources) Vomiting; Translations: [Vomiting, unspecified] 05-10-2023 Episodic Occlusion or stenosis of precerebral arteries (20 sources) Bilateral stenosis of carotid arteries; Translations: [Occlusion and stenosis of bilateral carotid arteries] Onset: 9 01-20-2018 Chronic Comment on above: S/P R CEA 12/2023 Osteoarthritis (15 sources) Osteoarthritis of knee; Translations: [Osteoarthritis of right hip joint] Onset: 5 04-09-2015 Chronic Other aftercare (20 sources) Long-term current use of anticoagulant; Translations: [nursing home (current) use of anticoagulants] 01-02-2023 Episodic Other aftercare (1 source) Long-term current use of drug therapy; Translations: [Other mcc (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] 03-28-2023 Episodic Other aftercare (13 sources) Long-term current use of diuretic; Translations: [Encounter for therapeutic drug level monitoring] 11-29-2024 Episodic Other and unspecified benign neoplasm (1 [...] respiratory systems] 09-10-2022 Episodic Other circulatory disease (20 sources) H/O: atrial fibrillation; Translations: [Personal history [...] with routine healing] 07-24-2024 Episodic Other fractures (14 sources) Compression fracture of vertebral column; Translations: [Collapsed vertebra, not elsewhere classified, site unspecified, initial encounter for fracture] 07-07-2024 Episodic Other gastrointestinal disorders (3 sources) Swallowing painful; Translations: [Dysphagia, unspecified] Episodic Other gastrointestinal disorders (20 sources) Constipation; Translations: [Constipation, unspecified] 05-10-2023 Episodic Other gastrointestinal disorders (1 source) Dysphagia, unspecified; Translations: [Dysphagia, unspecified type] Onset: 3 Episodic Other gastrointestinal disorders (13 sources) Swollen abdomen; Translations: [Abdominal distension (gaseous)] [...] Cough; Translations: [Acute cough] 04-15-2022 Episodic Other male genital disorders (20 sources) [...] Episodic Other nutritional; endocrine; and metabolic disorders (14 sources) Weight increased; Translations: [Abnormal weight gain] [...] Translations: [Cardiomyopathy, unspecified] Onset: 3 09-13-2022 Chronic Comment on above: This 79-year-old mal e presents with known ischemic cardiomyopathy, with a left ventricular ejection fraction documented at 35% on cardiac catheterization. This degree of systolic dysfunction places him at a significantly elevated risk for life-threatening ventricular arrhythmias and subsequent sudden cardiac (SCD). His current clinical status is stable, with physical exam notable for clear lungs and no peripheral edema, suggesting he is euvolemic and compensated. He is maintained on appropriate guideline-directed medical therapy, including Entresto and carvedilol.A lengthy shared decision-making discussion was held with the patient regarding the indication for an implantable cardioverter-defibrillator (ICD) for primary prevention of SCD. We reviewed that the device functions as a rescue therapy, nell to an "airbag," and does not prevent the underlying cardiac condition or a myocardial infarction. The procedural details, including the implantation process under conscious sedation, risks of infection, bleeding, and lead-related complications, were explained in detail. We also discussed the patient's personal values and goals of care, confirming his desire for resuscitation in the event of a cardiac arrest. The patient demonstrated understanding and has agreed to proceed with ICD implantation. Shared decision making was performed with the patient, his granddaughter and they are agreeable to proceed.Plan:Therapeutics/Medications: Schedule for implantation of a dual-chamber implantable cardioverter-defibrillator (ICD). The patient is instructed to hold his Apixaban for 48 hours prior to the procedure to mitigate judy-procedural bleeding risk while minimizing the risk of a thromboembolic event. Continue current guideline-directed medical therapy with carvedilol and Entresto.Diagnostics/Labs: Standard pre-operative laboratory assessment including CBC, BMP, and coagulation studies will be obtained prior to the procedure.Education: Patient was extensively educated on the rationale for ICD therapy for primary prevention of SCD. We reviewed the procedural risks, benefits, and alternatives, including the option of no intervention. Post-operative care was discussed, including an anticipated overnight hospital stay and the requirement for left arm restrictions (no lifting above the shoulder) for approximately one month to ensure lead fixation. Peripheral and visceral atherosclerosis (20 sources) Peripheral vascular disease, unspecified; Translations: [Peripheral vascular disease, unspecified] Onset: 9 05-01-2019 Chronic Residual codes; unclassified (1 source) Daytime somnolence; Translations: [Other hypersomnia] 03-03-2023 Chronic Residual codes; unclassified (4 sources) Pain; Translations: [Pain, unspecified] Episodic Residual codes; unclassified (19 sources) Edema; Translations: [Edema, unspecified] 08-09-2023 Episodic Residual codes; unclassified (2 sources) Bilateral lower limb edema; Translations: [Localized edema] 06-12-2024 Episodic Residual codes; unclassified (20 sources) H/O Spinal surgery; Translations: [Other specified postprocedural states] 09-14-2024 Episodic Rheumatoid arthritis and related disease (20 sources) Inflammatory polyarthropathy; Translations: [Inflammatory polyarthropathy] Onset: 3 05-19-2023 Chronic Spondylosis; intervertebral disc disorders; other back problems (20 sources) Degeneration of cervical intervertebral disc; Translations: [Other cervical disc degeneration, mid-cervical region, unspecified level] Onset: 4 07-15-2023 Chronic Sprains and strains (20 sources) Unspecified sprain of left little finger, initial encounter; Translations: [Sprain of left little finger] 07-31-2023 Episodic Superficial injury; contusion (20 sources) Contusion of right hand, initial encounter; Translations: [Hematoma of right hand] 07-31-2023 Episodic Thyroid disorders (3 sources) Goiter; Translations: [Nontoxic goiter, unspecified] Chronic Transient cerebral ischemia (8 sources) Amaurosis fugax; Translations: [Amaurosis fugax] Onset: [...] pain; Translations: [Other low back pain] Onset: Past or Other Problems Problem Classification Problem Date Documented Da te Episodic/Chronic Coronary atherosclerosis and other heart disease (20 sources) Stented coronary artery; Translations: [Presence of coronary angioplasty implant and graft] Onset: 09-15-2022 10-29-2022 Episodic Comment on above: Successful PTCA/CALE LCX into Prox OM1 using [employer] [place] 2.5x18 & 2.25x8mm Dr. Vernon 10/06/22 Deficiency and other anemia (5 sources) Anemia, unspecified; Translations: [Anemia, unspecified] Onset: 05-19-2023 09-13-2023 Episodic Deficiency and other anemia (2 sources) Iron deficiency anemia, unspecified; Translations: [Iron deficiency anemia, unspecified iron deficiency anemia type] Onset: 05-19-2023 Episodic Fluid and electrolyte disorders (3 sources) Hyponatremia; Translations: [Hypo-osmolality and hyponatremia] Onset: 06-18-2024 06-13-2024 Episodic Genitourinary symptoms and ill-defined conditions (15 sources) Acute retention of urine ; Translations: [Other retention of urine] Onset: 06-29-2024 07-07-2024 Episodic Hemorrhoids (20 sources) Internal hemorrhoids; Translations: [Other hemorrhoids] Onset: 08-24-2006 08-24-2006 Episodic Other aftercare (1 source) 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 mining 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 (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; Translations: [roasterman current use of antiarrhythmic drug] Onset: 03-29-2023 Episodic Other aftercare (1 source) roasterman (current) use of anticoagulants; Translations: [nursing home (current) use of anticoagulants] Onset: 03-29-2023 Episodic [...] Onset: 10-09-2007 Resolved: 10-30-2018 10-30-2018 Episodic Other fractures (2 sources) Wedge compression fracture of fifth lumbar vertebra, initial encounter for closed fracture; Translations: [Wedge compression fracture of fifth lumbar vertebra, initial encounter for closed fracture] Onset: 07-21-2024 Episodic Other fractures (1 source) Collapsed vertebra, not elsewhere classified, site unspecified, initial encounter for fracture; Translations: [Collapsed vertebra, not elsewhere classified, site unspecified, initial encounter for fracture] Onset: 06-29-2024 Episodic Other gastrointestinal disorders (20 sources) Dysphagia; Translations: [Dysphagia, unspecified] Onset: 05-20-2023 05-20-2023 Episodic Other lower respiratory disease (1 source) Dyspnea, unspecified; Translations: [Dyspnea, unspecified type] Onset: 03-29-2023 Episodic Other lower respiratory disease (1 source) Shortness of breath; Translations: [Shortness of breath] Onset: 12-05-2024 Episodic Other nervous system disorders (20 sources) Skin sensation disturbance; Translations: [Unspecified disturbances of skin sensation] Onset: 10-09-2007 Resolved: 10-30-2018 10-30-2018 Episodic Other upper respiratory infections (2 sources) [...] Test Name Value Interpretation Reference Range Facility CBC W/Diff, Automatedon 11-0 Absolute Lymph 1.32 X10 3/uL Normal 0.83-4.51 [facility] Comment on above: Performed By: #### L 100.0100, L300.3900, [id number], L506.0400, L501.9520, L500.4050 ####[facility] [id number] [place], [place], [id number] Absolute Neut 4.8 X10 3/uL Normal 2.0-7.7 [facility] Comment on above: Performed By: #### L 100.0100, L300.3900, [id number], L506.0400, [id number], L500.4050 ####[facility] [id number] [place], [address] Basophils/100 WBC (Bld) 0.6 % Normal 0-1 [facility] Comment on above: Performed By: #### L 100.0100, L300.3900, [id number], L506.0400, L501.9520, L500.4050 ####[facility] [id number] [place], [address] Eosinophils/100 WBC (Bld) 0.7 % Normal 0-5 [facility] Comment on above: Performed By: #### L 100.0100, [id number], [id number], L506.0400, L501.9520, L500.4050 ####[facility] [address] [place], [address] Erythrocyte distribution width (RBC) [Ratio] 13.3 % Normal 11.6-14.6 [facility] Comment on above: Performed By: #### L 100.0100, [id number], [id number], L506.0400, L501.9520, L500.4050 ####[facility] [address] [place], [address] Hematocrit (Bld) [Volume fraction] 33.1 % Low 40-54 [facility] Comment on above: Performed By: #### L 100.0100, [id number], [id number], L506.0400, L501.9520, L500.4050 ####[facility] [address] [place], [address] Hemoglobin (Bld) [Mass/Vol] 11.4 g/dL Low 13.0-16.5 [facility] Comment on above: Performed By: #### L 100.0100, [id number], [id number], L506.0400, L501.9520, L500.4050 ####[facility] [address] [place], [address] IG% 0.300 Normal 0.0-0.9 [facility] Comment on above: Result Comment: IG% - Immature Granulocytes (promyelocytes, myelocytes andmetamyelocytes) > 1% indicates that a LEFT SHIFT is Present. Performed By: #### L 100.0100, L300.3900, [id number], L506.0400, L501.9520, L500.4050 ####[facility] [address] [place], [address] Lymphocytes/100 WBC (Bld) 19.3 % Normal 19-41 [facility] Comment on above: Performed By: #### L 100.0100, [id number], [id number], L506.0400, L501.9520, L500.4050 ####[facility] [id number] [place], [address] MCH (RBC) [Entitic mass] 32.2 pg High 27.0-32.0 [facility] Comment on above: Performed By: #### L 100.0100, L300.3900, [id number], L506.0400, L501.9520, L500.4050 ####[facility] [address] [place], [address] MCHC (RBC) [Mass/Vol] 34.4 g/dL Normal 32-36 [facility] Comment on above: Performed By: #### L 100.0100, [id number], [id number], L506.0400, [id number], L500.4050 ####[facility] [address] [place], [address] MCV (RBC) [Entitic vol] 93.5 fL Normal 80-94 [facility] Comment on above: Performed By: #### L 100.0100, [id number], [id number], L506.0400, [id number], L500.4050 ####[facility] [address] [place], [address] Monocytes/100 WBC (Bld) 9.5 % Normal 0-10 [facility] Comment on above: Performed By: #### L 100.0100, [id number], [id number], L506.0400, L501.9520, L500.4050 ####[facility] [address] [place], [address] Neutrophils/100 WBC (Bld) 69.6 % Normal 47-70 [facility] Comment on above: Performed By: #### L 100.0100, L300.3900, [id number], L506.0400, L501.9520, L500.4050 ####[facility] [address] [place], [address] Nucleated RBC (Bld) [#/Vol] 0 10*3/uL Normal 0-5 [facility] Comment on above: Performed By: #### L 100.0100, L300.3900, [id number], L506.0400, [id number], L500.4050 ####[facility] [address] [place], [address] Platelet mean volume (Bld) [Entitic vol] 10.0 fL Normal 6.2-12.0 [facility] Comment on above: Performed By: #### L 100.0100, [id number], [id number], L506.0400, L501.9520, L500.4050 ####[facility] [id number] [place], [address] Platelets (Bld) [#/Vol] 190 10*3/uL Normal 150-450 [facility] Comment on above: Performed By: #### L 100.0100, L300.3900, [id number], L506.0400, [id number], L500.4050 ####[facility] [address] [place], [address] RBC (Bld) [#/Vol] 3.54 10*6/uL Low 4.6-6.2 [facility] Comment on above: Performed By: #### L 100.0100, [id number], [id number], L506.0400, [id number], L500.4050 ####[facility] [address] [place], [address] RDW SD 45.7 fl High 35.1-43.9 [facility] Comment on above: Performed By: #### L 100.0100, L300.3900, [id number], L506.0400, L501.9520, L500.4050 ####[facility] [address] [place], [address] WBC (Bld) [#/Vol] 6.8 10*3/uL Normal 4.4-11.0 [facility] Comment on above: Performed By: #### L 100.0100, L300.3900, L501.5200, L506.0400, L501.9520, L500.4050 ####[facility] [address] [place], [address] Comprehensive Metabolic Prof ilon 05-21-2025 Albumin [Mass/Vol] 3.9 g/dL Normal 3.4-4.8 [facility] Comment on above: Order Comment: For D ICD implant 05/23/25 Performed By: #### L 100.0100, L300.3900, L501.5200, L506.0400, L501.9520, L500.4050 ####[facility] [address] [place], [address] Albumin/Globulin [Mass ratio] 1.5 {ratio} Normal 0.9-2.4 [facility] Comment on above: Order Comment: For D ICD implant 05/23/25 Performed By: #### L 100.0100, L300.3900, L501.5200, L506.0400, L501.9520, L500.4050 ####[facility] [address] [place], [address] ALK PHOS 68 U/L Normal 40-129 [facility] Comment on above: Order Comment: For D ICD implant 05/23/25 Performed By: #### L 100.0100, L300.3900, L501.5200, L506.0400, L501.9520, L500.4050 ####[facility] [address] [place], [address] ALT [Catalytic activity/Vol] 12 U/L Normal <=46 [facility] Comment on above: Order Comment: For D ICD implant 05/23/25 Performed By: #### L 100.0100, L300.3900, L501.5200, L506.0400, L501.9520, L500.4050 ####[facility] [address] [place], [address] AST [Catalytic activity/Vol] 20 U/L Normal <=37 [facility] Comment on above: Order Comment: For D ICD implant 05/23/25 Performed By: #### L 100.0100, L300.3900, L501.5200, L506.0400, L501.9520, L500.4050 ####[facility] [address] [place], [address] Bilirubin [Mass/Vol] 0.76 mg/dL Normal 0.00-1.30 [facility] Comment on above: Order Comment: For D ICD implant 05/23/25 Performed By: #### L 100.0100, L300.3900, L501.5200, L506.0400, L501.9520, L500.4050 ####[facility] [address] [place], [address] BUN/CRE 19.7 RATIO Normal 10-20 [facility] Comment on above: Order Comment: For D ICD implant 05/23/25 Performed By: #### L 100.0100, L300.3900, L501.5200, L506.0400, L501.9520, L500.4050 ####[facility] [address] [place], [address] Calcium [Mass/Vol] 8.8 mg/dL Normal 7.6-11.0 [facility] Comment on above: Order Comment: For D ICD implant 05/23/25 Performed By: #### L 100.0100, L300.3900, L501.5200, L506.0400, L501.9520, L500.4050 ####[facility] [address] [place], [address] Chloride [Moles/Vol] 100 mmol/L Normal 98-108 [facility] Comment on above: Order Comment: For D ICD implant 05/23/25 Performed By: #### L 100.0100, L300.3900, L501.5200, L506.0400, L501.9520, L500.4050 ####[facility] [address] [place], [address] CO2 [Moles/Vol] 22.3 mmol/L Normal 21.0-32.0 [facility] Comment on above: Order Comment: For D ICD implant 05/23/25 Performed By: #### L 100.0100, L300.3900, L501.5200, L506.0400, L501.9520, L500.4050 ####[facility] [address] [place], [address] Creatinine [Mass/Vol] 1.12 mg/dL Normal 0.70-1.20 [facility] Comment on above: Order Comment: For D ICD implant 05/23/25 Performed By: #### L 100.0100, L300.3900, L501.5200, L506.0400, L501.9520, L500.4050 ####[facility] [address] [place], [address] GAP 10 Normal 5-15 [facility] Comment on above: Order Comment: For D ICD implant 05/23/25 Performed By: #### L 100.0100, L300.3900, L501.5200, L506.0400, L501.9520, L500.4050 ####[facility] [address] [place], [address] GFR/1.73 sq M.predicted among non-blacks MDRD (S/P/Bld) [Vol rate/Area] 67 mL/min/{1.73_m2} Normal >60 [facility] Comment on above: Order Comment: For D ICD implant 05/23/25 Result Comment: mL/m in/1.73m2 CKD-EPI Creatinine Equation (2020) Performed By: #### L 100.0100, L300.3900, L501.5200, L506.0400, L501.9520, L500.4050 ####[facility] [address] [place], [address] Globulin (S) [Mass/Vol] 2.6 g/dL Normal 2.2-4.2 [facility] Comment on above: Order Comment: For D ICD implant 05/23/25 Performed By: #### L 100.0100, L300.3900, L501.5200, L506.0400, L501.9520, L500.4050 ####[facility] [address] [place], [address] Glucose [Mass/Vol] 114 mg/dL High 70-99 [facility] Comment on above: Order Comment: For D ICD implant 05/23/25 Performed By: #### L 100.0100, L300.3900, L501.5200, L506.0400, L501.9520, L500.4050 ####[facility] [address] [place], [address] Potassium [Moles/Vol] 4.7 mmol/L Normal 3.3-5.1 [facility] Comment on above: Order Comment: For D ICD implant 05/23/25 Performed By: #### L 100.0100, L300.3900, L501.5200, L506.0400, L501.9520, L500.4050 ####[facility] [address] [place], [address] Sodium [Moles/Vol] 132 mmol/L Low 133-145 [facility] Comment on above: Order Comment: For D ICD implant 05/23/25 Performed By: #### L 100.0100, L300.3900, L501.5200, L506.0400, L501.9520, L500.4050 ####[facility] [address] [place], [address] T PROT 6.4 g/dL Normal 5.9-8.4 [facility] Comment on above: Order Comment: For D ICD implant 05/23/25 Performed By: #### L 100.0100, L300.3900, L501.5200, L506.0400, L501.9520, L500.4050 ####[facility] [address] [place], [address] Urea nitrogen [Mass/Vol] 22 mg/dL High 4-19 [facility] Comment on above: Order Comment: For D ICD implant 05/23/25 Performed By: #### L 100.0100, L300.3900, L501.5200, L506.0400, L501.9520, L500.4050 ####[facility] [address] [place], [address] Magnesiumon 05-21-2025 Magnesium [Mass/Vol] 2.1 mg/dL Normal 1.5-2.2 [facility] Comment on above: Performed By: #### L 100.0100, L300.3900, L501.5200, L506.0400, L501.9520, L500.4050 ####[facility] [address] [place], [address] Prothrombin Time w/INRon INR Coag (PPP) [Relative time] 1.5 {INR} Normal [facility] Comment on above: Order Comment: Comme nts: For DICD implant 05/23/25 Performed By: #### L 100.0100, L300.3900, L501.5200, L506.0400, L501.9520, L500.4050 ####[facility] [address] [place], [address] PT Coag (PPP) [Time] 18.3 s High 11.7-14.9 [facility] Comment on above: Order Comment: Comme nts: For DICD implant 05/23/25 Performed By: #### L 100.0100, L300.3900, L501.5200, L506.0400, L501.9520, L500.4050 ####[facility] [address] [place], [address] T4 Free Directon 05-21-2025 T4 FREE DIRECT 1.00 ng/dL Normal 0.76-1.46 [facility] Comment on above: Order Comment: For D ICD implant 05/23/25 Performed By: #### L 100.0100, L300.3900, L501.5200, L506.0400, L501.9520, L500.4050 ####[facility] [address] [place], [address] Thyroid Stim Hormone (TSH)on 05-21-2025 TSH 1.480 uIU/mL Normal 0.300-4.200 [facility] Comment on above: Performed By: #### L 100.0100, L300.3900, L501.5200, L506.0400, L501.9520, L500.4050 ####[facility] [address] [place], [address] Urinalysis, Completeon 05-21 WBC 0-5 SEEN Normal 0-5 [facility] Comment on above: Order Comment: For D ICD implant 05/23/25COLLECTOR TO SPECIFY Performed By: #### L 400.0001 ####[facility] [address] [place], [address] BACTERIA 0 SEEN Normal None Seen [facility] Comment on above: Order Comment: For D ICD implant 05/23/25COLLECTOR TO SPECIFY Performed By: #### L 400.0001 ####[facility] [address] [place], [address] EPI,SQUAMOUS 0 SEEN Normal 0-5 [facility] Comment on above: Order Comment: For D ICD implant 05/23/25COLLECTOR TO SPECIFY Performed By: #### L 400.0001 ####[facility] [address] [place], [address] Mucus Ql (Urine sed) 0 SEEN Normal [facility] Comment on above: Order Comment: For D ICD implant 05/23/25COLLECTOR TO SPECIFY Performed By: #### L 400.0001 ####[facility] [address] [place], [address] RBC 0 SEEN Normal 0-5 [facility] Comment on above: Order Comment: For D ICD implant 05/23/25COLLECTOR TO SPECIFY Performed By: #### L 400.0001 ####[facility] [address] [place], [address] Absolute lymphocyte countOrd ered By: Abram Mckeon on 03-27-2025 Lymphocytes Auto (Unsp spec) [#/Vol] 2.73 10*3/uL 0.83-4.51 [facility] Absolute neutrophil countOrd ered By: Abram Mckeon on 03-27-2025 Neutrophils (Bld) [#/Vol] 3.6 10*3/uL 2.0-7.7 [facility] Anion gap in Serum or Plasma Ordered By: Abram Mckeon on 03-27-2025 Anion gap [Moles/Vol] 12 mmol/L - [facility] Automated lymphocyte count a s percentage of total leukocytesOrdered By: Abram Mckeon on 03-27-2025 Lymphocytes/100 WBC Auto (Unsp spec) 38.3 % [facility] BUN/creatinine ratioOrdered By: Abram Mckeon on 03-27-2025 Urea nitrogen/Creatinine [Mass ratio] 18.1 mg/mg - [facility] Basic Metabolic Profile (BMP )on 03-27-2025 BUN/CRE 18.1 RATIO Normal 05-06 [facility] Comment on above: Performed By: #### L 500.2500, L100.0100 ####[facility] [address] [place], [address] Calcium [Mass/Vol] 9.0 mg/dL Normal 7.6-11.0 [facility] Comment on above: Performed By: #### L 500.2500, L100.0100 ####[facility] [address] [place], [address] Chloride [Moles/Vol] 101 mmol/L Normal 98-108 [facility] Comment on above: Performed By: #### L 500.2500, L100.0100 ####[facility] [address] [place], [address] CO2 [Moles/Vol] 22.4 mmol/L Normal 21.0-32.0 [facility] Comment on above: Performed By: #### L 500.2500, L100.0100 ####[facility] [address] [place], [address] Creatinine [Mass/Vol] 0.92 mg/dL Normal 0.70-1.20 [facility] Comment on above: Performed By: #### L 500.2500, L100.0100 ####[facility] [address] [place], [address] GAP 12 Normal 5-15 [facility] Comment on above: Performed By: #### L 500.2500, L100.0100 ####[facility] [address] [place], [address] GFR/1.73 sq M.predicted among non-blacks MDRD (S/P/Bld) [Vol rate/Area] 85 mL/min/{1.73_m2} Normal >60 [facility] Comment on above: Result Comment: mL/m in/1.73m2 CKD-EPI Creatinine Equation (2020) Performed By: #### L 500.2500, L100.0100 ####[facility] [address] [place], [address] Glucose [Mass/Vol] 118 mg/dL High 70-99 [facility] Comment on above: Performed By: #### L 500.2500, L100.0100 ####[facility] [address] [place], [address] Potassium [Moles/Vol] 4.1 mmol/L Normal 3.3-5.1 [facility] Comment on above: Performed By: #### L 500.2500, L100.0100 ####[facility] [address] [place], [address] Sodium [Moles/Vol] 135 mmol/L Normal 133-145 [facility] Comment on above: Performed By: #### L 500.2500, L100.0100 ####[facility] [address] [place], [address] Urea nitrogen [Mass/Vol] 17 mg/dL Normal 4-19 [facility] Comment on above: Performed By: #### L 500.2500, L100.0100 ####[facility] [address] [place], [address] Basophil percentageOrdered B y: Abram Mckeon on 03-27-2025 Basophils/100 WBC (Bld) 0.6 % 0-1 [facility] CBC W/Diff, Automatedon 03-18 0-2024 Absolute Lymph 2.73 X10 3/uL Normal 0.83-4.51 [facility] Comment on above: Performed By: #### L 500.2500, L100.0100 ####[facility] [address] [place], [address] Absolute Neut 3.6 X10 3/uL Normal 2.0-7.7 [facility] Comment on above: Performed By: #### L 500.2500, L100.0100 ####[facility] [address] [place], [address] Basophils/100 WBC (Bld) 0.6 % Normal 0-1 [facility] Comment on above: Performed By: #### L 500.2500, L100.0100 ####[facility] [address] [place], [address] Eosinophils/100 WBC (Bld) 1.5 % Normal 0-5 [facility] Comment on above: Performed By: #### L 500.2500, L100.0100 ####[facility] [address] [place], [address] Erythrocyte distribution width (RBC) [Ratio] 13.9 % Normal 11.6-14.6 [facility] Comment on above: Performed By: #### L 500.2500, L100.0100 ####[facility] [address] [place], [address] Hematocrit (Bld) [Volume fraction] 32.8 % Low 40-54 [facility] Comment on above: Performed By: #### L 500.2500, L100.0100 ####[facility] [address] [place], [address] Hemoglobin (Bld) [Mass/Vol] 11.1 g/dL Low 13.0-16.5 [facility] Comment on above: Performed By: #### L 500.2500, L100.0100 ####[facility] [address] [place], [address] IG% 0.600 Normal 0.0-0.9 [facility] Comment on above: Result Comment: IG% - Immature Granulocytes (promyelocytes, myelocytes andmetamyelocytes) > 1% indicates that a LEFT SHIFT is Present. Performed By: #### L 500.2500, L100.0100 ####[facility] [address] [place], [address] Lymphocytes/100 WBC (Bld) 38.3 % Normal 19-41 [facility] Comment on above: Performed By: #### L 500.2500, L100.0100 ####[facility] [address] [place], [address] MCH (RBC) [Entitic mass] 31.5 pg Normal 27.0-32.0 [facility] Comment on above: Performed By: #### L 500.2500, L100.0100 ####[facility] [address] [place], [address] MCHC (RBC) [Mass/Vol] 33.8 g/dL Normal 32-36 [facility] Comment on above: Performed By: #### L 500.2500, L100.0100 ####[facility] [address] [place], [address] MCV (RBC) [Entitic vol] 93.2 fL Normal 80-94 [facility] Comment on above: Performed By: #### L 500.2500, L100.0100 ####[facility] [address] [place], [address] Monocytes/100 WBC (Bld) 9.0 % Normal 0-10 [facility] Comment on above: Performed By: #### L 500.2500, L100.0100 ####[facility] [address] [place], [address] Neutrophils/100 WBC (Bld) 50.0 % Normal 47-70 [facility] Comment on above: Performed By: #### L 500.2500, L100.0100 ####[facility] [address] [place], [address] Nucleated RBC (Bld) [#/Vol] 0 10*3/uL Normal 0-5 [facility] Comment on above: Performed By: #### L 500.2500, L100.0100 ####[facility] [address] [place], [address] Platelet mean volume (Bld) [Entitic vol] 9.7 fL Normal 6.2-12.0 [facility] Comment on above: Performed By: #### L 500.2500, L100.0100 ####[facility] [address] [place], [address] Platelets (Bld) [#/Vol] 255 10*3/uL Normal 150-450 [facility] Comment on above: Performed By: #### L 500.2500, L100.0100 ####[facility] [address] [place], [address] RBC (Bld) [#/Vol] 3.52 10*6/uL Low 4.6-6.2 [facility] Comment on above: Performed By: #### L 500.2500, L100.0100 ####[facility] [address] [place], [address] RDW SD 47.4 fl High 35.1-43.9 [facility] Comment on above: Performed By: #### L 500.2500, L100.0100 ####[facility] [address] [place], [address] WBC (Bld) [#/Vol] 7.1 10*3/uL Normal 4.4-11.0 [facility] Comment on above: Performed By: #### L 500.2500, L100.0100 ####[facility] [address] [place], [address] Carbon dioxide, total [Moles /volume] in Central venous bloodOrdered By: Abram Mckeon on 03-27-2025 CO2 [Moles/Vol] 22.4 mmol/L 21.0-32.0 [facility] Chloride assayOrdered By: Marylou Mckeon on 03-27-2025 Chloride [Moles/Vol] 101 mmol/L 98-108 [facility] Eosinophil percentageOrdered By: Abram Mckeon on 03-27-2025 Eosinophils/100 WBC (Bld) 1.5 % 0-5 [facility] Erythrocyte distribution wid th ratioOrdered By: Abram Mckeon on 03-27-2025 Erythrocyte distribution width (RBC) [Ratio] 13.9 % 11.6-14.6 [facility] Erythrocyte distribution wid th standard deviationOrdered By: Abram Mckeon on 03-27-2025 Erythrocyte distribution width (RBC) [Ratio] 47.4 fl High 35.1-43.9 [facility] Glomerular filtration rate ( GFR) estimation/1.73 sq m using serum, plasma, or whole bOrdered By: Abram Mckeon on 03-27-2025 GFR/1.73 sq M.predicted among non-blacks MDRD (S/P/Bld) [Vol rate/Area] 85 mL/min/{1.73_m2} >60 [facility] Comment on above: mL/min/1.73m2 CKD-EP I Creatinine Equation (2020) Hematocrit Auto (Bld) [Volum e fraction]Ordered By: Abram Mckeon on 03-27-2025 Hematocrit (Bld) [Volume fraction] 32.8 % Low 40-54 [facility] Hemoglobin measurementOrdere d By: Abram Mckeon on 03-27-2025 Hemoglobin (Bld) [Mass/Vol] 11.1 g/dL Low 13.0-16.5 [facility] Immature granulocytes/100 WB C Auto (Bld)Ordered By: Abram Mckeon on 03-27-2025 Immature granulocytes/100 WBC (Bld) 0.600 % 0.0-0.9 [facility] Comment on above: IG% - Immature Granu locytes (promyelocytes, myelocytes and metamyelocytes) > 1% indicates that a LEFT SHIFT is Present. MCV (mean corpuscular volume ) determinationOrdered By: Abram Mckeon on 03-27-2025 MCV (RBC) [Entitic vol] 93.2 fL 80-94 [facility] Mean corpuscular hemoglobin (MCH) determinationOrdered By: Abram Mckeon on 03-27-2025 MCH (RBC) [Entitic mass] 31.5 pg 27.0-32.0 [facility] Mean corpuscular hemoglobin concentration (MCHC) determinationOrdered By: Abram Mckeon on 03-27-2025 MCHC (RBC) [Mass/Vol] 33.8 g/dL 32-36 [facility] Mean platelet volume determi nationOrdered By: Abram Mckeon on 03-27-2025 Platelet mean volume (Bld) [Entitic vol] 9.7 fL 6.2-12.0 [facility] Monocyte percentageOrdered B y: Abram Mckeon on 03-27-2025 Monocytes/100 WBC (Bld) 9.0 % 0-10 [facility] Neutrophil percentageOrdered By: Abram Mckeon on 03-27-2025 Neutrophils/100 WBC (Bld) 50.0 % 47-70 [facility] Nucleated red blood cell per centageOrdered By: Abram Mckeon on 03-27-2025 Nucleated RBC/100 WBC (Bld) [Ratio] 0 % 0-5 [facility] Platelet countOrdered By: Marylou Mckeon on 03-27-2025 Platelets (Bld) [#/Vol] 255 10*3/uL 150-450 [facility] Potassium measurement (mass/ volume)Ordered By: Abram Mckeon on 03-27-2025 Potassium (Unsp spec) [Mass/Vol] 4.1 mmol/L 3.3-5.1 [facility] RBC Auto (Bld) [#/Vol]Ordere d By: Abram Mckeon on 03-27-2025 RBC (Bld) [#/Vol] 3.52 10*6/uL Low 4.6-6.2 [facility] Serum creatinine measurement (mass/volume)Ordered By: Abram Mckeon on 03-27-2025 Creatinine [Mass/Vol] 0.92 mg/dL 0.70-1.20 [facility] Serum glucose measurement (m ass/volume)Ordered By: Abram Mckeon on 03-27-2025 Glucose [Mass/Vol] 118 mg/dL High 70-99 [facility] Serum or plasma calcium mikel urement (mass/volume)Ordered By: Abram Mckeon on 03-27-2025 Calcium [Mass/Vol] 9.0 mg/dL 7.6-11.0 [facility] Serum or plasma urea nitroge n measurement (mass/volume)Ordered By: Abram Mckeon on 03-27-2025 Urea nitrogen [Mass/Vol] 17 mg/dL 4-19 [facility] Sodium levelOrdered By: Abram Mckeon on 03-27-2025 Sodium [Moles/Vol] 135 mmol/L 133-145 [facility] White blood cell (WBC) count Ordered By: Abram Mckeon on 03-27-2025 WBC (Bld) [#/Vol] 7.1 10*3/uL 4.4-11.0 [facility] Cardiology Visit Reporton Cardiology Visit Report Normal [facility] Cardiac Cath Diagnosticon Cardiac Cath Diagnostic Normal [facility] Magnetic resonance imaging r eportOrdered By: Tierra Hemphill on 02-05-2025 Study report [facility] Imaging Services [address] [place] [address] Spine Lumbar (Routine) MR#: [id number] Acct: [id number] Name: SHELTON KAY Page Rep #: [id number] : 1945 M 79 From: Sonya Hemphill MD PCP: Dr. Michael Ko MD Status: REG C BULL Study:Spine Lumbar (Routine) Date of Exam: 02/01/25 Exam# [id number] Ordering Dr: Juan Oliver MD PROCEDURE: SPINE LUMBAR (ROUTINE) 02/01/2025 REASON FOR EXAM: LBP TECHNIQUE: SPINE LUMBAR (ROUTINE) COMPARISON: MRI L-spine 06/27/2024. FINDINGS: Vertebrae: Prior cement augmentation of the L5 vertebral body. Slight interval progression of the moderate L5 vertebral body compression deformity. Slight interval progression of multilevel mild vertebralbody height loss deformities (for example the superior endplate of the L3 vertebral body). Alignment: No traumatic or degenerative listhesis. Conus Medullaris: Normal in size and intensity, terminating at the L1 vertebral body. L1-2: Mild degenerative disc disease. No significant disc bulge. No central canal stenosis. Mild right and moderate left neural foraminal stenosis secondary to uncovertebral facet hypertrophy and congenital shortened pedicles. L2-3: Moderate degenerative disc disease with symmetric posterior disc bulging, resulting in moderate central canal, moderate right and severe left neural foraminal stenosis at this level. This has progressed since prior examination. L3-4: Mild degenerative disc disease, mild symmetric posterior disc bulging withmild central canal stenosis. Mild bilateral neural foraminal stenosis secondary to uncovertebral facet hypertrophy and congenital shortened pedicles. L4-5: Prior decompressive laminectomy at L4-5. Mild degenerative disc disease and facet hypertrophy resulting in severe right and moderate left neural foraminal stenosis. L5-S1: Mild degenerative disc disease without significant disc bulging. Sacrum: Unremarkable. Prior total left hip arthroplasty. Calcific plaque of the abdominal aorta. MRI/Spine Lumbar (Routine) IMPRESSION: 1. Prior decompressive laminectomy at L4-5, and cement augmentation of the L5 vertebral body. 2. Progression of the now moderate L5 vertebral body compression deformity sinceprior examination. 3. Additional progression of multilevel central and neural foraminal stenosis, as described, since prior examination. Reading Location: [id number] CC: Dr. Juan Oliver MD; Dr. Michael Ko MD ~ Cloth Shrinking Tester: Signed [facility] Spine Lumbar (Routine)on Spine Lumbar (Routine) Normal [facility] Cardiology Visit Reporton Cardiology Visit Report Normal [facility] Absolute lymphocyte countOrd ered By: Abram Mckeon on 01-21-2025 Lymphocytes Auto (Unsp spec) [#/Vol] 1.69 10*3/uL 0.83-4.51 [facility] Absolute neutrophil countOrd ered By: Abram Mckeon on 01-21-2025 Neutrophils (Bld) [#/Vol] 5.6 10*3/uL 2.0-7.7 [facility] Anion gap in Serum or Plasma Ordered By: Abram Mckeon on 01-21-2025 Anion gap [Moles/Vol] 11 mmol/L 5-15 [facility] Automated lymphocyte count a s percentage of total leukocytesOrdered By: Abram Mckeon on 01-21-2025 Lymphocytes/100 WBC Auto (Unsp spec) 21.0 % 19-41 [facility] BUN/creatinine ratioOrdered By: Abram Mckeon on 01-21-2025 Urea nitrogen/Creatinine [Mass ratio] 21.5 mg/mg High 10-20 [facility] Basic Metabolic Profile (BMP )on 01-21-2025 BUN/CRE 21.5 RATIO High 10-20 [facility] Comment on above: Performed By: #### L 100.0100, L500.2500, L501.5200, L501.9520 ####[facility] [address] [place], [address] Calcium [Mass/Vol] 9.1 mg/dL Normal 7.6-11.0 [facility] Comment on above: Performed By: #### L 100.0100, L500.2500, L501.5200, L501.9520 ####[facility] [address] [place], [address] Chloride [Moles/Vol] 100 mmol/L Normal 98-108 [facility] Comment on above: Performed By: #### L 100.0100, L500.2500, L501.5200, L501.9520 ####[facility] [address] [place], [address] CO2 [Moles/Vol] 23.7 mmol/L Normal 21.0-32.0 [facility] Comment on above: Performed By: #### L 100.0100, L500.2500, L501.5200, L501.9520 ####[facility] [address] [place], [address] Creatinine [Mass/Vol] 1.11 mg/dL Normal 0.70-1.20 [facility] Comment on above: Performed By: #### L 100.0100, L500.2500, L501.5200, L501.9520 ####[facility] [address] [place], [address] GAP 11 Normal 5-15 [facility] Comment on above: Performed By: #### L 100.0100, L500.2500, L501.5200, L501.9520 ####[facility] [address] [place], [address] GFR/1.73 sq M.predicted among non-blacks MDRD (S/P/Bld) [Vol rate/Area] 68 mL/min/{1.73_m2} Normal >60 [facility] Comment on above: Result Comment: mL/m in/1.73m2 CKD-EPI Creatinine Equation (2020) Performed By: #### L 100.0100, L500.2500, L501.5200, L501.9520 ####[facility] [address] [place], [address] Glucose [Mass/Vol] 108 mg/dL High 70-99 [facility] Comment on above: Performed By: #### L 100.0100, L500.2500, L501.5200, L501.9520 ####[facility] [address] [place], [address] Potassium [Moles/Vol] 5.0 mmol/L Normal 3.3-5.1 [facility] Comment on above: Performed By: #### L 100.0100, L500.2500, L501.5200, L501.9520 ####[facility] [address] [place], [address] Sodium [Moles/Vol] 134 mmol/L Normal 133-145 [facility] Comment on above: Performed By: #### L 100.0100, L500.2500, L501.5200, L501.9520 ####[facility] [address] [place], [address] Urea nitrogen [Mass/Vol] 24 mg/dL High 4-19 [facility] Comment on above: Performed By: #### L 100.0100, L500.2500, L501.5200, L501.9520 ####[facility] [address] [place], [address] BUN Normal -19 [facility] Comment on above: Result Comment: DUPL ICATE Performed By: #### L 500.2500 ####[facility] [address] [place], [address] BUN/CRE Normal 10-20 [facility] Comment on above: Result Comment: DUPL ICATE Performed By: #### L 500.2500 ####[facility] [address] [place], [address] Calcium Normal 7.6-11.0 [facility] Comment on above: Result Comment: DUPL ICATE Performed By: #### L 500.2500 ####[facility] [address] [place], [address] CL Normal 98-108 [facility] Comment on above: Result Comment: DUPL ICATE Performed By: #### L 500.2500 ####[facility] [address] [place], [address] CO2 Normal 21.0-32.0 [facility] Comment on above: Result Comment: DUPL ICATE Performed By: #### L 500.2500 ####[facility] [address] [place], [address] CREAT,SERUM Normal 0.70-1.20 [facility] Comment on above: Result Comment: DUPL ICATE Performed By: #### L 500.2500 ####[facility] [address] [place], [address] eGFR Normal >60 [facility] Comment on above: Result Comment: DUPL ICATE Performed By: #### L 500.2500 ####[facility] [address] [place], [address] GAP Normal 5-15 [facility] Comment on above: Result Comment: DUPL ICATE Performed By: #### L 500.2500 ####[facility] [address] [place], [address] GLU Normal 70-99 [facility] Comment on above: Result Comment: DUPL ICATE Performed By: #### L 500.2500 ####[facility] [address] [place], [address] Potassium Normal 3.3-5.1 [facility] Comment on above: Result Comment: DUPL ICATE Performed By: #### L 500.2500 ####[facility] [address] [place], [address] Basic Metabolic Profile (BMP) Normal 133-145 [facility] Comment on above: Result Comment: DUPL ICATE Performed By: #### L 500.2500 ####[facility] [address] [place], [address] Basophil percentageOrdered B y: Abram Mckeon on 01-21-2025 Basophils/100 WBC (Bld) 0.4 % 0-1 [facility] CBC W/Diff, Automatedon Absolute Lymph 1.69 X10 3/uL Normal 0.83-4.51 [facility] Comment on above: Performed By: #### L 100.0100, L500.2500, L501.5200, L501.9520 ####[facility] [address] [place], [address] Absolute Neut 5.6 X10 3/uL Normal 2.0-7.7 [facility] Comment on above: Performed By: #### L 100.0100, L500.2500, L501.5200, L501.9520 ####[facility] [address] [place], [address] Basophils/100 WBC (Bld) 0.4 % Normal 0-1 [facility] Comment on above: Performed By: #### L 100.0100, L500.2500, L501.5200, L501.9520 ####[facility] [address] [place], [address] Eosinophils/100 WBC (Bld) 1.5 % Normal 0-5 [facility] Comment on above: Performed By: #### L 100.0100, L500.2500, L501.5200, L501.9520 ####[facility] [address] [place], [address] Erythrocyte distribution width (RBC) [Ratio] 16.0 % High 11.6-14.6 [facility] Comment on above: Performed By: #### L 100.0100, L500.2500, L501.5200, L501.9520 ####[facility] [address] [place], [address] Hematocrit (Bld) [Volume fraction] 35.4 % Low 40-54 [facility] Comment on above: Performed By: #### L 100.0100, L500.2500, L501.5200, L501.9520 ####[facility] [address] [place], [address] Hemoglobin (Bld) [Mass/Vol] 11.6 g/dL Low 13.0-16.5 [facility] Comment on above: Performed By: #### L 100.0100, L500.2500, L501.5200, L501.9520 ####[facility] [address] [place], [address] IG% 0.400 Normal 0.0-0.9 [facility] Comment on above: Result Comment: IG% - Immature Granulocytes (promyelocytes, myelocytes andmetamyelocytes) > 1% indicates that a LEFT SHIFT is Present. Performed By: #### L 100.0100, L500.2500, L501.5200, L501.9520 ####[facility] [address] [place], [address] Lymphocytes/100 WBC (Bld) 21.0 % Normal 19-41 [facility] Comment on above: Performed By: #### L 100.0100, L500.2500, L501.5200, L501.9520 ####[facility] [address] [place], [address] MCH (RBC) [Entitic mass] 29.6 pg Normal 27.0-32.0 [facility] Comment on above: Performed By: #### L 100.0100, L500.2500, L501.5200, L501.9520 ####[facility] [address] [place], [address] MCHC (RBC) [Mass/Vol] 32.8 g/dL Normal 32-36 [facility] Comment on above: Performed By: #### L 100.0100, L500.2500, L501.5200, L501.9520 ####[facility] [address] [place], [address] MCV (RBC) [Entitic vol] 90.3 fL Normal 80-94 [facility] Comment on above: Performed By: #### L 100.0100, L500.2500, L501.5200, L501.9520 ####[facility] [address] [place], [address] Monocytes/100 WBC (Bld) 7.4 % Normal 0-10 [facility] Comment on above: Performed By: #### L 100.0100, L500.2500, L501.5200, L501.9520 ####[facility] [address] [place], [address] Neutrophils/100 WBC (Bld) 69.3 % Normal 47-70 [facility] Comment on above: Performed By: #### L 100.0100, L500.2500, L501.5200, L501.9520 ####[facility] [address] [place], [address] Nucleated RBC (Bld) [#/Vol] 0 10*3/uL Normal 0-5 [facility] Comment on above: Performed By: #### L 100.0100, L500.2500, L501.5200, L501.9520 ####[facility] [address] [place], [address] Platelet mean volume (Bld) [Entitic vol] 9.5 fL Normal 6.2-12.0 [facility] Comment on above: Performed By: #### L 100.0100, L500.2500, L501.5200, L501.9520 ####[facility] [address] [place], [address] Platelets (Bld) [#/Vol] 223 10*3/uL Normal 150-450 [facility] Comment on above: Performed By: #### L 100.0100, L500.2500, L501.5200, L501.9520 ####[facility] [address] [place], [address] RBC (Bld) [#/Vol] 3.92 10*6/uL Low 4.6-6.2 [facility] Comment on above: Performed By: #### L 100.0100, L500.2500, L501.5200, L501.9520 ####[facility] [address] [place], [address] RDW SD 53.7 fl High 35.1-43.9 [facility] Comment on above: Performed By: #### L 100.0100, L500.2500, L501.5200, L501.9520 ####[facility] [address] [place], [address] WBC (Bld) [#/Vol] 8.1 10*3/uL Normal 4.4-11.0 [facility] Comment on above: Performed By: #### L 100.0100, L500.2500, L501.5200, L501.9520 ####[facility] [address] [place], [address] Carbon dioxide, total [Moles /volume] in Central venous bloodOrdered By: Abram Mckeon on 01-21-2025 CO2 [Moles/Vol] 23.7 mmol/L 21.0-32.0 [facility] Chloride assayOrdered By: Marylou Mckeon on 01-21-2025 Chloride [Moles/Vol] 100 mmol/L 98-108 [facility] Eosinophil percentageOrdered By: Abram Mckeon on 01-21-2025 Eosinophils/100 WBC (Bld) 1.5 % 0-5 [facility] Erythrocyte distribution wid th ratioOrdered By: Abram Mckeon on 01-21-2025 Erythrocyte distribution width (RBC) [Ratio] 16.0 % High 11.6-14.6 [facility] Erythrocyte distribution wid th standard deviationOrdered By: Abram Mckeon on 01-21-2025 Erythrocyte distribution width (RBC) [Ratio] 53.7 fl High 35.1-43.9 [facility] Glomerular filtration rate ( GFR) estimation/1.73 sq m using serum, plasma, or whole bOrdered By: Abram Mckeon on 01-21-2025 GFR/1.73 sq M.predicted among non-blacks MDRD (S/P/Bld) [Vol rate/Area] 68 mL/min/{1.73_m2} >60 [facility] Comment on above: mL/min/1.73m2 CKD-EP I Creatinine Equation (2020) Hematocrit Auto (Bld) [Volum e fraction]Ordered By: Abram Mckeon on 01-21-2025 Hematocrit (Bld) [Volume fraction] 35.4 % Low 40-54 [facility] Hemoglobin measurementOrdere d By: Abram Mckeon on 01-21-2025 Hemoglobin (Bld) [Mass/Vol] 11.6 g/dL Low 13.0-16.5 [facility] Immature granulocytes/100 WB C Auto (Bld)Ordered By: Abram Mckeon on 01-21-2025 Immature granulocytes/100 WBC (Bld) 0.400 % 0.0-0.9 [facility] Comment on above: IG% - Immature Granu locytes (promyelocytes, myelocytes and metamyelocytes) > 1% indicates that a LEFT SHIFT is Present. MCV (mean corpuscular volume ) determinationOrdered By: Abram Mckeon on 01-21-2025 MCV (RBC) [Entitic vol] 90.3 fL 80-94 [facility] Magnesiumon 01-21-2025 Magnesium [Mass/Vol] 2.0 mg/dL Normal 1.5-2.2 [facility] Comment on above: Performed By: #### L 100.0100, L500.2500, L501.5200, L501.9520 ####[facility] [address] [place], [address] Magnesium measurement (mass/ volume)Ordered By: Abram Mckeon on 01-21-2025 Magnesium (Unsp spec) [Mass/Vol] 2.0 mg/dL 1.5-2.2 [facility] Mean corpuscular hemoglobin (MCH) determinationOrdered By: Abram Mckeon on 01-21-2025 MCH (RBC) [Entitic mass] 29.6 pg 27.0-32.0 [facility] Mean corpuscular hemoglobin concentration (MCHC) determinationOrdered By: Abram Mckeon on 01-21-2025 MCHC (RBC) [Mass/Vol] 32.8 g/dL 32-36 [facility] Mean platelet volume determi nationOrdered By: Abram Mckeon on 01-21-2025 Platelet mean volume (Bld) [Entitic vol] 9.5 fL 6.2-12.0 [facility] Monocyte percentageOrdered B y: Abram Mckeon on 01-21-2025 Monocytes/100 WBC (Bld) 7.4 % 0-10 [facility] Neutrophil percentageOrdered By: Abram Mckeon on 01-21-2025 Neutrophils/100 WBC (Bld) 69.3 % 47-70 [facility] Nucleated red blood cell per centageOrdered By: Abram Mckeon on 01-21-2025 Nucleated RBC/100 WBC (Bld) [Ratio] 0 % 0-5 [facility] Platelet countOrdered By: Marylou Mckeon on 01-21-2025 Platelets (Bld) [#/Vol] 223 10*3/uL 150-450 [facility] Potassium measurement (mass/ volume)Ordered By: Abram Mckeon on 01-21-2025 Potassium (Unsp spec) [Mass/Vol] 5.0 mmol/L 3.3-5.1 [facility] RBC Auto (Bld) [#/Vol]Ordere d By: Abram Mckeon on 01-21-2025 RBC (Bld) [#/Vol] 3.92 10*6/uL Low 4.6-6.2 [facility] Serum creatinine measurement (mass/volume)Ordered By: Abram Mckeon on 01-21-2025 Creatinine [Mass/Vol] 1.11 mg/dL 0.70-1.20 [facility] Serum glucose measurement (m ass/volume)Ordered By: Abram Mckeon on 01-21-2025 Glucose [Mass/Vol] 108 mg/dL High 70-99 [facility] Serum or plasma calcium mikel urement (mass/volume)Ordered By: Abram Mckeon on 01-21-2025 Calcium [Mass/Vol] 9.1 mg/dL 7.6-11.0 [facility] Serum or plasma urea nitroge n measurement (mass/volume)Ordered By: Abram Mckeon on 01-21-2025 Urea nitrogen [Mass/Vol] 24 mg/dL High 4-19 [facility] Sodium levelOrdered By: Abram Mckeon on 01-21-2025 Sodium [Moles/Vol] 134 mmol/L 133-145 [facility] TSH DL <= 0.005 mIU/L QnOrde red By: Abram Mckeon on 01-21-2025 TSH Qn 1.210 uIU/mL 0.300-4.200 [facility] Thyroid Stim Hormone (TSH)on 01-21-2025 TSH 1.210 uIU/mL Normal 0.300-4.200 [facility] Comment on above: Performed By: #### L 100.0100, L500.2500, L501.5200, L501.9520 ####[facility] [address] [facility] [address] White blood cell (WBC) count Ordered By: Abram Mckeon on 01-21-2025 WBC (Bld) [#/Vol] 8.1 10*3/uL 4.4-11.0 [facility] Anion gap in Serum or Plasma Ordered By: Osbaldo Vernon on 01-02-2025 Anion gap [Moles/Vol] 13 mmol/L 5-15 [facility] BUN/creatinine ratioOrdered By: Osbaldo Vernon on 01-02-2025 Urea nitrogen/Creatinine [Mass ratio] 25.0 mg/mg High 10-20 [facility] Basic Metabolic Profile (BMP )on 01-02-2025 BUN/CRE 25.0 RATIO High -20 [facility] Comment on above: Order Comment: Repea t 1 week to 10 days after starting Lasix Performed By: #### L 500.2500, L300.3900 ####[facility] [address] [facility] [address] Calcium [Mass/Vol] 9.5 mg/dL Normal 7.6-11.0 [facility] Comment on above: Order Comment: Repea t 1 week to 10 days after starting Lasix Performed By: #### L 500.2500, L300.3900 ####[facility] [address] [place], [address] Chloride [Moles/Vol] 103 mmol/L Normal 98-108 [facility] Comment on above: Order Comment: Repea t 1 week to 10 days after starting Lasix Performed By: #### L 500.2500, L300.3900 ####[facility] [address] [place], [address] CO2 [Moles/Vol] 22.9 mmol/L Normal 21.0-32.0 [facility] Comment on above: Order Comment: Repea t 1 week to 10 days after starting Lasix Performed By: #### L 500.2500, L300.3900 ####[facility] [address] [place], [address] Creatinine [Mass/Vol] 1.00 mg/dL Normal 0.70-1.20 [facility] Comment on above: Order Comment: Repea t 1 week to 10 days after starting Lasix Performed By: #### L 500.2500, L300.3900 ####[facility] [address] [place], [address] GAP 13 Normal 5-15 [facility] Comment on above: Order Comment: Repea t 1 week to 10 days after starting Lasix Performed By: #### L 500.2500, L300.3900 ####[facility] [address] [place], [address] GFR/1.73 sq M.predicted among non-blacks MDRD (S/P/Bld) [Vol rate/Area] 77 mL/min/{1.73_m2} Normal >60 [facility] Comment on above: Order Comment: Repea t 1 week to 10 days after starting Lasix Result Comment: mL/m in/1.73m2 CKD-EPI Creatinine Equation (2020) Performed By: #### L 500.2500, L300.3900 ####[facility] [address] [place], [address] Glucose [Mass/Vol] 111 mg/dL High 70-99 [facility] Comment on above: Order Comment: Repea t 1 week to 10 days after starting Lasix Performed By: #### L 500.2500, L300.3900 ####[facility] [address] [place], [address] Potassium [Moles/Vol] 4.7 mmol/L Normal 3.3-5.1 [facility] Comment on above: Order Comment: Repea t 1 week to 10 days after starting Lasix Performed By: #### L 500.2500, L300.3900 ####[facility] [address] [place], [address] Sodium [Moles/Vol] 139 mmol/L Normal 133-145 [facility] Comment on above: Order Comment: Repea t 1 week to 10 days after starting Lasix Performed By: #### L 500.2500, L300.3900 ####[facility] [address] [place], [address] Urea nitrogen [Mass/Vol] 25 mg/dL High 4-19 [facility] Comment on above: Order Comment: Repea t 1 week to 10 days after starting Lasix Performed By: #### L 500.2500, L300.3900 ####[facility] [address] [place], [address] Carbon dioxide, total [Moles /volume] in Central venous bloodOrdered By: Osbaldo Vernon on 01-02-2025 CO2 [Moles/Vol] 22.9 mmol/L 21.0-32.0 [facility] Chest PA and Lateralon 01-02 Chest PA and Lateral Normal [facility] Chloride assayOrdered By: Sid Vernon on 01-02-2025 Chloride [Moles/Vol] 103 mmol/L 98-108 [facility] Glomerular filtration rate ( GFR) estimation/1.73 sq m using serum, plasma, or whole bOrdered By: Osbaldo Vernon on 01-02-2025 GFR/1.73 sq M.predicted among non-blacks MDRD (S/P/Bld) [Vol rate/Area] 77 mL/min/{1.73_m2} >60 [facility] Comment on above: mL/min/1.73m2 CKD-EP I Creatinine Equation (2020) International normalized rat io (INR) calculationOrdered By: Osbaldo Vernon on 01-02-2025 INR Coag (Bld) [Relative time] 1.3 {INR} [facility] Potassium measurement (mass/ volume)Ordered By: Osbaldo Vernon on 01-02-2025 Potassium (Unsp spec) [Mass/Vol] 4.7 mmol/L 3.3-5.1 [facility] Prothrombin Time w/INRon INR Coag (PPP) [Relative time] 1.3 {INR} Normal [facility] Comment on above: Performed By: #### L 500.2500, L300.3900 ####[facility] [address] [place], [address] PT Coag (PPP) [Time] 16.6 s High 11.7-14.9 [facility] Comment on above: Performed By: #### L 500.2500, L300.3900 ####[facility] [address] [place], [address] Prothrombin timeOrdered By: Osbaldo Vernon on 01-02-2025 PT Coag (PPP) [Time] 16.6 s High 11.7-14.9 [facility] Serum creatinine measurement (mass/volume)Ordered By: Osbaldo Vernon on 01-02-2025 Creatinine [Mass/Vol] 1.00 mg/dL 0.70-1.20 [facility] Serum glucose measurement (m ass/volume)Ordered By: Osbaldo Vernon on 01-02-2025 Glucose [Mass/Vol] 111 mg/dL High 70-99 [facility] Serum or plasma calcium mikel urement (mass/volume)Ordered By: Osbaldo Vernon on 01-02-2025 Calcium [Mass/Vol] 9.5 mg/dL 7.6-11.0 [facility] Serum or plasma urea nitroge n measurement (mass/volume)Ordered By: Osbaldo Vernon on 01-02-2025 Urea nitrogen [Mass/Vol] 25 mg/dL High 4-19 [facility] Sodium levelOrdered By: Zack Maciasan on 01-02-2025 Sodium [Moles/Vol] 139 mmol/L 133-145 [facility] Bone density reportOrdered B y: Mario Trujillo on 12-13-2024 Study report Skeletal system DXA [facility] Services [address] [place] [address] Dexa Bone Density Study MR#: [id number] Acct: [id number] Name: SHELTON KAY Rep #: [id number] : 1945 M 79 From: Mahendra Trujillo MD PCP: Dr. Michael Ko MD Status: ROMARIO GOTTLIEB Study:Dexa Bone Density Study Date of Exam: 12/13/24 Exam# [id number] Ordering Dr: Michael Ko MD PROCEDURE: DEXA [...] Recommend follow-up as clinically warranted. Reading Location: [id number] CC: Dr. Michael Ko MD ~ Cloth Shrinking Tester: Signed [facility] Dexa Bone Density Studyon Dexa Bone Density Study Normal [facility] Carotid Duplex Ultrasoundon 12-12-2024 Carotid Duplex Ultrasound Normal [facility] Duplex ultrasound of carotid artery reportOrdered By: Miller Alexandre on 12-12-2024 Study report [facility] [place] [address] Carotid Duplex Ultrasound 12/12/24 1254 MR#: [id number] Acct: [id number] Name: SHELTON KAY Rep #:[id number] : 1945 79 From: Miller Linares Attending [...] in theleft vertebral artery. Procedure Carotid Duplex 53053. This is a Carotid Duplex examination using B-mode, color flow and specral Doppler. The exam was diagnostic. Exam performed in department. VL/Carotid Duplex Ultrasound Interpretation Summary Mild (<50%) stenosis right extracranial internal carotid. Moderate (50-69%) stenosis left extracranial internal carotid. Patent and antegrade vertebrals bilaterally. ___ Ordering Physician: Phoebe Troncoso Referring Physician: Michael Ko Chi Performed By: Soren Santacruz Aaliyah 12/12/241718 Date _ Miller Alexandre MD CC: MARYJANE Hunter; Dr. Michael Ko MD ~ Date Dictated: 12/12/24 1254 Date Transcribed: 12/12/241718 Cloth Shrinking Tester: Signed [facility] Work Phone: Absolute lymphocyte countOrd ered By: Michael Ko on 12-11-2024 Lymphocytes Auto (Unsp spec) [#/Vol] 2.81 10*3/uL 0.83-4.51 [facility] Absolute neutrophil countOrd ered By: Michael Ko on 12-11-2024 Neutrophils (Bld) [#/Vol] 4.7 10*3/uL 2.0-7.7 [facility] Anion gap in Serum or Plasma Ordered By: Michael Ko on 12-11-2024 Anion gap [Moles/Vol] 12 mmol/L 5-15 [facility] Automated lymphocyte count a s percentage of total leukocytesOrdered By: Michael Ko on 12-11-2024 Lymphocytes/100 WBC Auto (Unsp spec) 34.0 % - [facility] BUN/creatinine ratioOrdered By: Michael Ko on 12-11-2024 Urea nitrogen/Creatinine [Mass ratio] 21.0 mg/mg High 10- [facility] Basophil percentageOrdered B y: Michael Ko on 12-11-2024 Basophils/100 WBC (Bld) 0.7 % 0-1 [facility] Bilirubin, totalOrdered By: Michael Ko on 12-11-2024 Bilirubin [Mass/Vol] 0.46 mg/dL 0.00-1.30 [facility] CBC W/Diff, Automatedon 11-16 Absolute Lymph 2.81 X10 3/uL Normal 0.83-4.51 [facility] Comment on above: Performed By: #### L 501.9520, L506.1001, L501.1400, L100.0100, L500.4050, L500.4100, L3890.6301 ####[facility] [address] [place], [address] Absolute Neut 4.7 X10 3/uL Normal 2.0-7.7 [facility] Comment on above: Performed By: #### L 501.9520, L506.1001, L501.1400, L100.0100, L500.4050, L500.4100, L3890.6301 ####[facility] [address] [place], [address] Basophils/100 WBC (Bld) 0.7 % Normal 0-1 [facility] Comment on above: Performed By: #### L 501.9520, L506.1001, L501.1400, L100.0100, L500.4050, L500.4100, L3890.6301 ####[facility] [address] [place], [address] Eosinophils/100 WBC (Bld) 0.8 % Normal 0-5 [facility] Comment on above: Performed By: #### L 501.9520, L506.1001, L501.1400, L100.0100, L500.4050, L500.4100, L3890.6301 ####[facility] [address] [place], [address] Erythrocyte distribution width (RBC) [Ratio] 14.7 % High 11.6-14.6 [facility] Comment on above: Performed By: #### L 501.9520, L506.1001, L501.1400, L100.0100, L500.4050, L500.4100, L3890.6301 ####[facility] [address] [place], [address] Hematocrit (Bld) [Volume fraction] 38.4 % Low 40-54 [facility] Comment on above: Performed By: #### L 501.9520, L506.1001, L501.1400, L100.0100, L500.4050, L500.4100, L3890.6301 ####[facility] [address] [place], [address] Hemoglobin (Bld) [Mass/Vol] 12.6 g/dL Low 13.0-16.5 [facility] Comment on above: Performed By: #### L 501.9520, L506.1001, L501.1400, L100.0100, L500.4050, L500.4100, L3890.6301 ####[facility] [address] [place], [address] IG% 0.400 Normal 0.0-0.9 [facility] Comment on above: Result Comment: IG% - Immature Granulocytes (promyelocytes, myelocytes andmetamyelocytes) > 1% indicates that a LEFT SHIFT is Present. Performed By: #### L 501.9520, L506.1001, L501.1400, L100.0100, L500.4050, L500.4100, L3890.6301 ####[facility] [address] [place], [address] Lymphocytes/100 WBC (Bld) 34.0 % Normal 19-41 [facility] Comment on above: Performed By: #### L 501.9520, L506.1001, L501.1400, L100.0100, L500.4050, L500.4100, L3890.6301 ####[facility] [address] [place], [address] MCH (RBC) [Entitic mass] 28.9 pg Normal 27.0-32.0 [facility] Comment on above: Performed By: #### L 501.9520, L506.1001, L501.1400, L100.0100, L500.4050, L500.4100, L3890.6301 ####[facility] [address] [place], [address] MCHC (RBC) [Mass/Vol] 32.8 g/dL Normal 32-36 [facility] Comment on above: Performed By: #### L 501.9520, L506.1001, L501.1400, L100.0100, L500.4050, L500.4100, L3890.6301 ####[facility] [address] [place], [address] MCV (RBC) [Entitic vol] 88.1 fL Normal 80-94 [facility] Comment on above: Performed By: #### L 501.9520, L506.1001, L501.1400, L100.0100, L500.4050, L500.4100, L3890.6301 ####[facility] [address] [place], [address] Monocytes/100 WBC (Bld) 7.3 % Normal 0-10 [facility] Comment on above: Performed By: #### L 501.9520, L506.1001, L501.1400, L100.0100, L500.4050, L500.4100, L3890.6301 ####[facility] [address] [place], [address] Neutrophils/100 WBC (Bld) 56.8 % Normal 47-70 [facility] Comment on above: Performed By: #### L 501.9520, L506.1001, L501.1400, L100.0100, L500.4050, L500.4100, L3890.6301 ####[facility] [address] [place], [address] Nucleated RBC (Bld) [#/Vol] 0 10*3/uL Normal 0-5 [facility] Comment on above: Performed By: #### L 501.9520, L506.1001, L501.1400, L100.0100, L500.4050, L500.4100, L3890.6301 ####[facility] [address] [place], [address] Platelet mean volume (Bld) [Entitic vol] 9.9 fL Normal 6.2-12.0 [facility] Comment on above: Performed By: #### L 501.9520, L506.1001, L501.1400, L100.0100, L500.4050, L500.4100, L3890.6301 ####[facility] [address] [place], [address] Platelets (Bld) [#/Vol] 253 10*3/uL Normal 150-450 [facility] Comment on above: Performed By: #### L 501.9520, L506.1001, L501.1400, L100.0100, L500.4050, L500.4100, L3890.6301 ####[facility] [address] [place], [address] RBC (Bld) [#/Vol] 4.36 10*6/uL Low 4.6-6.2 [facility] Comment on above: Performed By: #### L 501.9520, L506.1001, L501.1400, L100.0100, L500.4050, L500.4100, L3890.6301 ####[facility] [address] [place], [address] RDW SD 47.5 fl High 35.1-43.9 [facility] Comment on above: Performed By: #### L 501.9520, L506.1001, L501.1400, L100.0100, L500.4050, L500.4100, L3890.6301 ####[facility] [address] [place], [address] WBC (Bld) [#/Vol] 8.3 10*3/uL Normal 4.4-11.0 [facility] Comment on above: Performed By: #### L 501.9520, L506.1001, L501.1400, L100.0100, L500.4050, L500.4100, L3890.6301 ####[facility] [address] [place], [address] Calculated very low density lipoprotein (VLDL) cholesterol measurementOrdered By: Michael Ko on 12-11-2024 Calculated very low density lipoprotein (VLDL) cholesterol measurement 20 mg/dL 5-40 [facility] Carbon dioxide, total [Moles /volume] in Central venous bloodOrdered By: Michael Ko on 12-11-2024 CO2 [Moles/Vol] 23.6 mmol/L 21.0-32.0 [facility] Cardiology Visit Reporton Cardiology Visit Report Normal [facility] Chloride assayOrdered By: Julian Ko on 12-11-2024 Chloride [Moles/Vol] 100 mmol/L 98-108 [facility] Comprehensive Metabolic Prof ilon 12-11-2024 Albumin [Mass/Vol] 4.1 g/dL Normal 3.4-4.8 [facility] Comment on above: Performed By: #### L 501.9520, L506.1001, L501.1400, L100.0100, L500.4050, L500.4100, L3890.6301 ####[facility] [address] [place], [address] Albumin/Globulin [Mass ratio] 1.3 {ratio} Normal 0.9-2.4 [facility] Comment on above: Performed By: #### L 501.9520, L506.1001, L501.1400, L100.0100, L500.4050, L500.4100, L3890.6301 ####[facility] [address] [place], [address] ALK PHOS 99 U/L Normal 40-129 [facility] Comment on above: Performed By: #### L 501.9520, L506.1001, L501.1400, L100.0100, L500.4050, L500.4100, L3890.6301 ####[facility] [address] [place], [address] ALT [Catalytic activity/Vol] 15 U/L Normal <=46 [facility] Comment on above: Performed By: #### L 501.9520, L506.1001, L501.1400, L100.0100, L500.4050, L500.4100, L3890.6301 ####[facility] [address] [place], [address] AST [Catalytic activity/Vol] 23 U/L Normal <=37 [facility] Comment on above: Performed By: #### L 501.9520, L506.1001, L501.1400, L100.0100, L500.4050, L500.4100, L3890.6301 ####[facility] [address] [place], [address] Bilirubin [Mass/Vol] 0.46 mg/dL Normal 0.00-1.30 [facility] Comment on above: Performed By: #### L 501.9520, L506.1001, L501.1400, L100.0100, L500.4050, L500.4100, L3890.6301 ####[facility] [address] [place], [address] BUN/CRE 21.0 RATIO High 10-20 [facility] Comment on above: Performed By: #### L 501.9520, L506.1001, L501.1400, L100.0100, L500.4050, L500.4100, L3890.6301 ####[facility] [address] [place], [address] Calcium [Mass/Vol] 9.5 mg/dL Normal 7.6-11.0 [facility] Comment on above: Performed By: #### L 501.9520, L506.1001, L501.1400, L100.0100, L500.4050, L500.4100, L3890.6301 ####[facility] [address] [place], [address] Chloride [Moles/Vol] 100 mmol/L Normal 98-108 [facility] Comment on above: Performed By: #### L 501.9520, L506.1001, L501.1400, L100.0100, L500.4050, L500.4100, L3890.6301 ####[facility] [address] [place], [address] CO2 [Moles/Vol] 23.6 mmol/L Normal 21.0-32.0 [facility] Comment on above: Performed By: #### L 501.9520, L506.1001, L501.1400, L100.0100, L500.4050, L500.4100, L3890.6301 ####[facility] [address] [place], [address] Creatinine [Mass/Vol] 1.01 mg/dL Normal 0.70-1.20 [facility] Comment on above: Performed By: #### L 501.9520, L506.1001, L501.1400, L100.0100, L500.4050, L500.4100, L3890.6301 ####[facility] [address] [place], [address] GAP 12 Normal 5-15 [facility] Comment on above: Performed By: #### L 501.9520, L506.1001, L501.1400, L100.0100, L500.4050, L500.4100, L3890.6301 ####[facility] [address] [place], [address] GFR/1.73 sq M.predicted among non-blacks MDRD (S/P/Bld) [Vol rate/Area] 76 mL/min/{1.73_m2} Normal >60 [facility] Comment on above: Result Comment: mL/m in/1.73m2 CKD-EPI Creatinine Equation (2020) Performed By: #### L 501.9520, L506.1001, L501.1400, L100.0100, L500.4050, L500.4100, L3890.6301 ####[facility] [address] [place], [address] Globulin (S) [Mass/Vol] 3.1 g/dL Normal 2.2-4.2 [facility] Comment on above: Performed By: #### L 501.9520, L506.1001, L501.1400, L100.0100, L500.4050, L500.4100, L3890.6301 ####[facility] [address] [place], [address] Glucose [Mass/Vol] 104 mg/dL High 70-99 [facility] Comment on above: Performed By: #### L 501.9520, L506.1001, L501.1400, L100.0100, L500.4050, L500.4100, L3890.6301 ####[facility] [address] [place], [address] Potassium [Moles/Vol] 4.6 mmol/L Normal 3.3-5.1 [facility] Comment on above: Performed By: #### L 501.9520, L506.1001, L501.1400, L100.0100, L500.4050, L500.4100, L3890.6301 ####[facility] [address] [place], [address] Sodium [Moles/Vol] 136 mmol/L Normal 133-145 [facility] Comment on above: Performed By: #### L 501.9520, L506.1001, L501.1400, L100.0100, L500.4050, L500.4100, L3890.6301 ####[facility] [address] [place], [address] T PROT 7.2 g/dL Normal 5.9-8.4 [facility] Comment on above: Performed By: #### L 501.9520, L506.1001, L501.1400, L100.0100, L500.4050, L500.4100, L3890.6301 ####[facility] [address] [place], [address] Urea nitrogen [Mass/Vol] 21 mg/dL High 4-19 [facility] Comment on above: Performed By: #### L 501.9520, L506.1001, L501.1400, L100.0100, L500.4050, L500.4100, L3890.6301 ####[facility] [address] [place], [address] Eosinophil percentageOrdered By: [facility] 12-[facility] Eosinophils/100 WBC (Bld) 0.8 % 0-5 [facility] Erythrocyte distribution wid th ratioOrdered By: [facility] on 12-11-2024 Erythrocyte distribution width (RBC) [Ratio] 14.7 % High 11.6-14.6 [facility] Erythrocyte distribution wid th standard deviationOrdered By: [facility] on 12-11-2024 Erythrocyte distribution width (RBC) [Ratio] 47.5 fl High 35.1-43.9 [facility] Glomerular filtration rate ( GFR) estimation/1.73 sq m using serum, plasma, or whole bOrdered By: [facility] on 12-11-2024 GFR/1.73 sq M.predicted among non-blacks MDRD (S/P/Bld) [Vol rate/Area] 76 mL/min/{1.73_m2} >60 [facility] Comment on above: mL/min/1.73m2 CKD-EP I Creatinine Equation (2020) Hematocrit Auto (Bld) [Volum e fraction]Ordered By: [facility] on 12-11-2024 Hematocrit (Bld) [Volume fraction] 38.4 % Low 40-54 [facility] Hemoglobin measurementOrdere d By: [facility] on 12-11-2024 Hemoglobin (Bld) [Mass/Vol] 12.6 g/dL Low 13.0-16.5 [facility] Hepatitis C Antibodyon 12-11 Hepatitis C Ab Non-Reactive Normal Nonreactive [facility] Comment on above: Result Comment: Reac tive: Presumptive evidence of antibodies to HCV. [facility] recommendations for supplemental testing.Non-Reactive: Antibodies to HCV were not detected; does notexclude the possibility of exposure to HCVReactive Results are presumptive evidence of antibodies toHCV. Follow CDC recommendations for supplemental testing.Order confirmation testing: HCV Quant by PCR testing -HCVPCR #[id number] Non Reactive: < 0.8 Equivocal: >/= 0.8 to < 1.0 Reactive: >/= 1.0The CDC requires that a reactive/equivocal HCV antibodyresult be sent out for confirmation. HCV Quant by PCRtesting. Performed By: #### L 501.9520, L506.1001, L501.1400, L100.0100, L500.4050, L500.4100, L3890.6301 ####[facility] [address] [place], [place], [id number] Immature granulocytes/100 WB C Auto (Bld)Ordered By: Michael Ko on 12-11-2024 Immature granulocytes/100 WBC (Bld) 0.400 % 0.0-0.9 [facility] Comment on above: IG% - Immature Granu locytes (promyelocytes, myelocytes and metamyelocytes) > 1% indicates that a LEFT SHIFT is Present. LDL calc ser/plasOrdered By: Michael Ko on 12-11-2024 Cholesterol in LDL [Mass/Vol] 97 mg/dL [facility] Comment on above: Vyzoevosay=694-125 m g/dL & Higher Mjqs=329 mg/dL or greater Laboratory - Chemistry and C hemistry - challengeOrdered By: Michael Ko on 12-11-2024 AST [Catalytic activity/Vol] 23 U/L <38 [facility] Lipid Profileon 12-11-2024 CHOL:HDL 3.44 Normal [facility] Comment on above: Performed By: #### L 501.9520, L506.1001, L501.1400, L100.0100, L500.4050, L500.4100, L3890.6301 ####[facility] [address] [place], [place], [address] Cholesterol [Mass/Vol] 165 mg/dL Normal <=200 [facility] Comment on above: Result Comment: Chol esterol level, Desirable <200 mg/dLBorderline high cholesterol 200-239 mg/dLHigh cholesterol >=240 mg/dLRecommendations of the NCEP Adult Treatment Panel for thefollowing risk-cutoff thresholds for the [place] Americanpopulation. Performed By: #### L 501.9520, L506.1001, L501.1400, L100.0100, L500.4050, L500.4100, L3890.6301 ####[facility] [address] [place], [address] Cholesterol in HDL [Mass/Vol] 48 mg/dL Normal [facility] Comment on above: Result Comment: Shelli onal Cholesterol Education Program (NCEP) guidelines:<40 mg/dL: Low HDL-cholesterol (major risk factor for CHD)>= 60 mg/dL: High HDL-cholesterol (negative risk factor forCHD)HDL-cholesterol is affected by a number of factors, e.g.smoking, exercise, hormones, sex and age. Performed By: #### L 501.9520, L506.1001, L501.1400, L100.0100, L500.4050, L500.4100, L3890.6301 ####[facility] [address] [place], [address] Cholesterol in LDL [Mass/Vol] 97 mg/dL Normal [facility] Comment on above: Result Comment: Bord cpzjcj=201-116 mg/dL Higher Ealy=208 mg/dL or greater Performed By: #### L 501.9520, L506.1001, L501.1400, L100.0100, L500.4050, L500.4100, L3890.6301 ####[facility] [address] [place], [address] Cholesterol in VLDL [Mass/Vol] 20 mg/dL Normal 5-40 [facility] Comment on above: Performed By: #### L 501.9520, L506.1001, L501.1400, L100.0100, L500.4050, L500.4100, L3890.6301 ####[facility] [address] [place], [address] Triglyceride [Mass/Vol] 101 mg/dL Normal [facility] Comment on above: Result Comment: The drugs N-Acetylcysteine and Metamizole may falselydepress this assay.Normal range: <150 mg/dLBorderline High: 150-199 mg/dLHigh: 200-499 mg/dLVery High: >500 mg/dL Performed By: #### L 501.9520, L506.1001, L501.1400, L100.0100, L500.4050, L500.4100, L3890.6301 ####[facility] [address] [place], [address] MCV (mean corpuscular volume ) determinationOrdered By: Michael Ko on 12-11-2024 MCV (RBC) [Entitic vol] 88.1 fL 80-94 [facility] Mean corpuscular hemoglobin (MCH) determinationOrdered By: Michael Ko on 12-11-2024 MCH (RBC) [Entitic mass] 28.9 pg 27.0-32.0 [facility] Mean corpuscular hemoglobin concentration (MCHC) determinationOrdered By: Michael Ko 12-11-2024 MCHC (RBC) [Mass/Vol] 32.8 g/dL 32-36 [facility] Mean platelet volume determi nationOrdered By: Michael Ko 12-11-2024 Platelet mean volume (Bld) [Entitic vol] 9.9 fL 6.2-12.0 [facility] Monocyte percentageOrdered B y: Michael Ko 12-11-2024 Monocytes/100 WBC (Bld) 7.3 % 0-10 [facility] Neutrophil percentageOrdered By: Michael Ko 12-11-2024 Neutrophils/100 WBC (Bld) 56.8 % 47-70 [facility] Nucleated red blood cell per centageOrdered By: Michael Ko 12-11-2024 Nucleated RBC/100 WBC (Bld) [Ratio] 0 % 0-5 [facility] Platelet countOrdered By: Julian Ko on 12-11-2024 Platelets (Bld) [#/Vol] 253 10*3/uL 150-450 [facility] Potassium measurement (mass/ volume)Ordered By: Michael Ko 12-11-2024 Potassium (Unsp spec) [Mass/Vol] 4.6 mmol/L 3.3-5.1 [facility] RBC Auto (Bld) [#/Vol]Ordere d By: Michael Ko on 12-11-2024 RBC (Bld) [#/Vol] 4.36 10*6/uL Low 4.6-6.2 [facility] Screening total cholesterol/ high density lipoprotein (HDL) cholesterol ratioOrdered By: Michael Ko on 12-11-2024 Cholesterol.total/Cho lesterol in HDL [Mass ratio] 3.44 {ratio} [facility] Serum creatinine measurement (mass/volume)Ordered By: Michael Ko on 12-11-2024 Creatinine [Mass/Vol] 1.01 mg/dL 0.70-1.20 [facility] Serum globulin measurementOr dered By: Michael Ko 12-11-2024 Globulin (S) [Mass/Vol] 3.1 g/dL 2.2-4.2 [facility] Serum glucose measurement (m ass/volume)Ordered By: Michael Ko 12-11-2024 Glucose [Mass/Vol] 104 mg/dL High 70-99 [facility] Serum or plasma alanine condon otransferase (ALT) measurementOrdered By: Michael Ko 12-11-2024 ALT [Catalytic activity/Vol] 15 U/L <47 [facility] Serum or plasma albumin mikel urement (mass/volume)Ordered By: Michael Ko 12-11-2024 Albumin [Mass/Vol] 4.1 g/dL 3.4-4.8 [facility] Serum or plasma albumin/glob ulin mass ratioOrdered By: Michael Ko 12-11-2024 Albumin/Globulin [Mass ratio] 1.3 {ratio} 0.9-2.4 [facility] Serum or plasma alkaline radha sphatase measurementOrdered By: Michael Ko 12-11-2024 ALP [Catalytic activity/Vol] 99 U/L 40-129 [facility] Serum or plasma calcium mikel urement (mass/volume)Ordered By: Michael Ko 12-11-2024 Calcium [Mass/Vol] 9.5 mg/dL 7.6-11.0 [facility] Serum or plasma cholesterol in HDL measurement (mass/volume)Ordered By: Michael Ko 12-11-2024 Cholesterol in HDL [Mass/Vol] 48 mg/dL >40 [facility] Comment on above: National Cholesterol Education Program (NCEP) guidelines:<40 mg/dL: Low HDL-cholesterol (major risk factor for CHD)>= 60 mg/dL: High HDL-cholesterol (negative risk factor for CHD)HDL-cholesterol is affected by a number of factors, e.g. smoking, exercise, hormones, sex and age. Serum or plasma cholesterol measurement (mass/volume)Ordered By: Michael Ko on 12-11-2024 Cholesterol [Mass/Vol] 165 mg/dL <201 [facility] Comment on above: Cholesterol level, D esirable <200 mg/dLBorderline high cholesterol 200-239 mg/dLHigh cholesterol >=240 mg/dLRecommendations of the NCEP Adult Treatment Panel for the following risk-cutoff thresholds for the [place] population. Serum or plasma urea nitroge n measurement (mass/volume)Ordered By: Michael Ko on 12-11-2024 Urea nitrogen [Mass/Vol] 21 mg/dL High 4-19 [facility] Serum or plasma uric acid me asurement (mass/volume)Ordered By: Michael Ko on 12-11-2024 Urate [Mass/Vol] 4.9 mg/dL 3.5-7.2 [facility] Comment on above: The drugs N-Acetylcy steine and Metamizole may falsely depress this assay. Sodium levelOrdered By: Michael Ko on 12-11-2024 Sodium [Moles/Vol] 136 mmol/L 133-145 [facility] TSH DL <= 0.005 mIU/L QnOrde red By: Michael Ko on 12-11-2024 TSH Qn 1.010 uIU/mL 0.300-4.200 [facility] Thyroid Stim Hormone (TSH)on 12-11-2024 TSH 1.010 uIU/mL Normal 0.300-4.200 [facility] Comment on above: Performed By: #### L 501.9520, L506.1001, L501.1400, L100.0100, L500.4050, L500.4100, L3890.6301 ####[facility] [address] [place], [address] Total proteinOrdered By: Michael Ko on 12-11-2024 Protein [Mass/Vol] 7.2 g/dL 5.9-8.4 [facility] Triglycerides measurementOrd ered By: Michael Ko on 12-11-2024 Triglyceride [Mass/Vol] 101 mg/dL <199 [facility] Comment on above: The drugs N-Acetylcy steine and Metamizole may falsely depress this assay. Normal range: <150 mg/dLBorderline High: 150-199 mg/dLHigh: 200-499 mg/dLVery High: >500 mg/dL Uric Acidon 12-11-2024 URIC 4.9 mg/dL Normal 3.5-7.2 [facility] Comment on above: Result Comment: The drugs N-Acetylcysteine and Metamizole may falselydepress this assay. Performed By: #### L 501.9520, L506.1001, L501.1400, L100.0100, L500.4050, L500.4100, L3890.9502 ####[facility] [address] [place], [place], [id number] Vitamin D,25 Hydroxyon 12-11 Vitamin D 25-OH 39.2 ng/mL Normal 30-100 [facility] Comment on above: Result Comment: Dea min D StatusDeficiency: <20 ng/mL (50nmol/L)Insufficiency: 20-30 ng/mL (50-75 nmol/L)Sufficiency: 30-100 ng/mL (75-250 nmol/L)Toxicity: >100 ng/mL (>250 nmol/L) Performed By: #### L 501.9520, L506.1001, L501.1400, L100.0100, L500.4050, L500.4100, L3890.6303 ####[facility] [address] [place], [place], [id number] White blood cell (WBC) count Ordered By: Michael Ko on 12-11-2024 WBC (Bld) [#/Vol] 8.3 10*3/uL 4.4-11.0 [facility] CNPNon [facility] SHELTON KAY ([id number]) 1945 M Date Time Provider Department 12/06/24 [facility] During your visit today, we recorded the following information about you: Yasmeen Oliveros MA 12/06/2024 10:07 AM Signed Office received a Medical Records Release form, requesting all records be faxed from this office to [facility]. F: . Routed to PCP to review [...] mg by mouth two times a day. 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10] 05/20/2023 History of colonic polyps [Z86.0100] 05/20/2023 Cardiomyopathy, unspecified type (HCC) [I42.9] 06/22/2023 Preop examination [Z01.818] 12/19/2023 S/P carotid endarterectomy [Z98.890] 12/26/2023 Encounter Status:Closed by JANNETH BURKETT on 12/06/24 Normal [facility] Anion gap in Serum or Plasma Ordered By: Osbaldo Vernon on 11-29-2024 Anion gap [Moles/Vol] 12 mmol/L 11-29 [facility] BUN/creatinine ratioOrdered By: Osbaldo Vernon on 11-29-2024 Urea nitrogen/Creatinine [Mass ratio] 21.8 mg/mg High 05-06 [facility] Basic Metabolic Profile (BMP )on 11-29-2024 BUN/CRE 21.8 RATIO High 05-06 [facility] Comment on above: Order Comment: di Performed By: #### L 338.8249, L500.2500 ####[facility] [address] [place], [address] Calcium [Mass/Vol] 9.2 mg/dL Normal 7.6-11.0 [facility] Comment on above: Order Comment: di Performed By: #### L 503.7505, L500.2500 ####[facility] [address] [place], [address] Chloride [Moles/Vol] 104 mmol/L Normal 98-108 [facility] Comment on above: Order Comment: di Performed By: #### L 503.7505, L500.2500 ####[facility] [address] [place], [address] CO2 [Moles/Vol] 21.5 mmol/L Normal 21.0-32.0 [facility] Comment on above: Order Comment: di Performed By: #### L 503.7505, L500.2500 ####[facility] [address] [place], [address] Creatinine [Mass/Vol] 0.95 mg/dL Normal 0.70-1.20 [facility] Comment on above: Order Comment: di Performed By: #### L 503.7505, L500.2500 ####[facility] [address] [place], [address] GAP 12 Normal 5-15 [facility] Comment on above: Order Comment: di Performed By: #### L 503.7505, L500.2500 ####[facility] [address] [place], [address] GFR/1.73 sq M.predicted among non-blacks MDRD (S/P/Bld) [Vol rate/Area] 81 mL/min/{1.73_m2} Normal >60 [facility] Comment on above: Order Comment: di Result Comment: mL/m in/1.73m2 CKD-EPI Creatinine Equation (2020) Performed By: #### L 503.7505, L500.2500 ####[facility] [address] [place], [address] Glucose [Mass/Vol] 86 mg/dL Normal 70-99 [facility] Comment on above: Order Comment: di Performed By: #### L 503.7505, L500.2500 ####[facility] [address] [place], [address] Potassium [Moles/Vol] 4.2 mmol/L Normal 3.3-5.1 [facility] Comment on above: Order Comment: di Performed By: #### L 503.7505, L500.2500 ####[facility] [address] [place], [address] Sodium [Moles/Vol] 137 mmol/L Normal 133-145 [facility] Comment on above: Order Comment: di Performed By: #### L 503.7505, L500.2500 ####[facility] [address] [place], [address] Urea nitrogen [Mass/Vol] 21 mg/dL High 4-19 [facility] Comment on above: Order Comment: di Performed By: #### L 503.7505, L500.2500 ####[facility] [address] [place], [address] Carbon dioxide, total [Moles /volume] in Central venous bloodOrdered By: Osbaldo Vernon on 11-29-2024 CO2 [Moles/Vol] 21.5 mmol/L 21.0-32.0 [facility] Chloride assayOrdered By: Sid Vernon on 11-29-2024 Chloride [Moles/Vol] 104 mmol/L 98-108 [facility] Glomerular filtration rate ( GFR) estimation/1.73 sq m using serum, plasma, or whole bOrdered By: Osbaldo Vernon on 11-29-2024 GFR/1.73 sq M.predicted among non-blacks MDRD (S/P/Bld) [Vol rate/Area] 81 mL/min/{1.73_m2} >60 [facility] Comment on above: mL/min/1.73m2 CKD-EP I Creatinine Equation (2020) L503.7505on 11-29-2024 Natriuretic peptide B (Bld) [Mass/Vol] 4979 pg/mL High <=1800 [facility] Comment on above: Result Comment: Hear t Failure Unlikely: < 300 pg/mLHeart Failure Likely< 50 Years: > 450 pg/mL50-75 Years: > 900 pg/mL>75 Years: > 1800 pg/mL Performed By: #### L 503.7505, L500.2500 ####[facility] [address] [place], [address] Natriuretic peptide.B prohor lupillo N-Terminal [Mass/volume] in Serum or PlasmaOrdered By: Osbaldo Vernon on 11-29-2024 Natriuretic peptide.B prohormone N-Terminal [Mass/Vol] 4979 pg/mL High <1800 [facility] Comment on above: Heart Failure Unlike ly: < 300 pg/mLHeart Failure Likely< 50 Years: > 450 pg/mL50-75 Years: > 900 pg/mL>75 Years: > 1800 pg/mL Potassium measurement (mass/ volume)Ordered By: Osbaldo Vernon on 11-29-2024 Potassium (Unsp spec) [Mass/Vol] 4.2 mmol/L 3.3-5.1 [facility] Serum creatinine measurement (mass/volume)Ordered By: Osbaldo Vernon on 11-29-2024 Creatinine [Mass/Vol] 0.95 mg/dL 0.70-1.20 [facility] Serum glucose measurement (m ass/volume)Ordered By: Osbaldo Vernon on 11-29-2024 Glucose [Mass/Vol] 86 mg/dL 70-99 [facility] Serum or plasma calcium mikel urement (mass/volume)Ordered By: Osbaldo Vernon on 11-29-2024 Calcium [Mass/Vol] 9.2 mg/dL 7.6-11.0 [facility] Serum or plasma urea nitroge n measurement (mass/volume)Ordered By: Osbaldo Vernon on 11-29-2024 Urea nitrogen [Mass/Vol] 21 mg/dL High 4-19 [facility] Sodium levelOrdered By: Zack Vernon on 11-29-2024 Sodium [Moles/Vol] 137 mmol/L 133-145 [facility] Echo Completeon 11-28-2024 Echo Complete Normal [facility] Echocardiogram study reportO rdered By: Osbaldo Vernon on 11-28-2024 Study report [facility] [address] [place] [address] Echo Complete 11/28/24 1013 MR#: [id number] Acct: [id number] Name: SHELTON KAY Rep #:[id number] : 1945 79 From: Osbaldo Vernon MD Attending Dr: MARYJANE Sarkar Status: REG CLI Ordering Dr: Karine Brasher Date: 11/28/24 Location: [facility] Sex: M C Admitted: Reason [...] Physician: Michael Ko Chi Performed By: Dora Akins, DAVID, RVT 11/28/24 1121 Date _ Osbaldo Vernon MD CC: Dr. Michael Ko MD; Karine Brasher, PA ~ Date Dictated: 11/28/24 1013 Date Transcribed: 11/28/24 1121 Cloth Shrinking Tester: Signed [facility] Work Phone: Absolute lymphocyte countOrd ered By: Juan Oliver on 11-27-2024 Lymphocytes Auto (Unsp spec) [#/Vol] 2.16 10*3/uL 0.83-4.51 [facility] Absolute neutrophil countOrd ered By: Juan Oliver on 11-27-2024 Neutrophils (Bld) [#/Vol] 7.6 10*3/uL 2.0-7.7 [facility] Automated lymphocyte count a s percentage of total leukocytesOrdered By: Juan Oliver on 11-27-2024 Lymphocytes/100 WBC Auto (Unsp spec) 20.2 % 19-41 [facility] Basophil percentageOrdered B y: Juan Oliver on 11-27-2024 Basophils/100 WBC (Bld) 0.4 % 0-1 [facility] CBC W/Diff, Automatedon 11-15 Absolute Lymph 2.16 X10 3/uL Normal 0.83-4.51 [facility] Comment on above: Performed By: #### L 501.6710, L101.9900, L100.0100 ####[facility] [address] [place], [address] Absolute Neut 7.6 X10 3/uL Normal 2.0-7.7 [facility] Comment on above: Performed By: #### L 501.6710, L101.9900, L100.0100 ####[facility] [address] [place], [address] Basophils/100 WBC (Bld) 0.4 % Normal 0-1 [facility] Comment on above: Performed By: #### L 501.6710, L101.9900, L100.0100 ####[facility] [address] [place], [address] Eosinophils/100 WBC (Bld) 0.7 % Normal 0-5 [facility] Comment on above: Performed By: #### L 501.6710, L101.9900, L100.0100 ####[facility] [address] [place], [address] Erythrocyte distribution width (RBC) [Ratio] 14.7 % High 11.6-14.6 [facility] Comment on above: Performed By: #### L 501.6710, L101.9900, L100.0100 ####[facility] [address] [place], [address] Hematocrit (Bld) [Volume fraction] 38.8 % Low 40-54 [facility] Comment on above: Performed By: #### L 501.6710, L101.9900, L100.0100 ####[facility] [address] [place], [address] Hemoglobin (Bld) [Mass/Vol] 12.7 g/dL Low 13.0-16.5 [facility] Comment on above: Performed By: #### L 501.6710, L101.9900, L100.0100 ####[facility] [address] [place], [address] IG% 0.500 Normal 0.0-0.9 [facility] Comment on above: Result Comment: IG% - Immature Granulocytes (promyelocytes, myelocytes andmetamyelocytes) > 1% indicates that a LEFT SHIFT is Present. Performed By: #### L 501.6710, L101.9900, L100.0100 ####[facility] [address] [place], [address] Lymphocytes/100 WBC (Bld) 20.2 % Normal 19-41 [facility] Comment on above: Performed By: #### L 501.6710, L101.9900, L100.0100 ####[facility] [address] [place], [address] MCH (RBC) [Entitic mass] 29.1 pg Normal 27.0-32.0 [facility] Comment on above: Performed By: #### L 501.6710, L101.9900, L100.0100 ####[facility] [address] [place], [address] MCHC (RBC) [Mass/Vol] 32.7 g/dL Normal 32-36 [facility] Comment on above: Performed By: #### L 501.6710, L101.9900, L100.0100 ####[facility] [address] [place], [address] MCV (RBC) [Entitic vol] 89.0 fL Normal 80-94 [facility] Comment on above: Performed By: #### L 501.6710, L101.9900, L100.0100 ####[facility] [address] [place], [address] Monocytes/100 WBC (Bld) 7.6 % Normal 0-10 [facility] Comment on above: Performed By: #### L 501.6710, L101.9900, L100.0100 ####[facility] [address] [place], [address] Neutrophils/100 WBC (Bld) 70.6 % High 47-70 [facility] Comment on above: Performed By: #### L 501.6710, L101.9900, L100.0100 ####[facility] [address] [place], [address] Nucleated RBC (Bld) [#/Vol] 0 10*3/uL Normal 0-5 [facility] Comment on above: Performed By: #### L 501.6710, L101.9900, L100.0100 ####[facility] [address] [place], [address] Platelet mean volume (Bld) [Entitic vol] 10.5 fL Normal 6.2-12.0 [facility] Comment on above: Performed By: #### L 501.6710, L101.9900, L100.0100 ####[facility] [address] [place], [address] Platelets (Bld) [#/Vol] 242 10*3/uL Normal 150-450 [facility] Comment on above: Performed By: #### L 501.6710, L101.9900, L100.0100 ####[facility] [address] [place], [address] RBC (Bld) [#/Vol] 4.36 10*6/uL Low 4.6-6.2 [facility] Comment on above: Performed By: #### L 501.6710, L101.9900, L100.0100 ####[facility] [address] [place], [address] RDW SD 48.2 fl High 35.1-43.9 [facility] Comment on above: Performed By: #### L 501.6710, L101.9900, L100.0100 ####[facility] [address] [place], [address] WBC (Bld) [#/Vol] 10.7 10*3/uL Normal 4.4-11.0 [facility] Comment on above: Performed By: #### L 501.6710, L101.9900, L100.0100 ####[facility] [address] [place], [address] CRPon 11-27-2024 C-REACTIVE PROT < 3.00 Normal 0.0-3.0 [facility] Comment on above: Performed By: #### L 501.6710, L101.9900, L100.0100 ####[facility] [address] [place], [address] Eosinophil percentageOrdered By: Juan Oliver on 11-27-2024 Eosinophils/100 WBC (Bld) 0.7 % 0-5 [facility] Erythrocyte Sed Rateon 11-27 SED RATE 34 mm/hr High 0-20 [facility] Comment on above: Performed By: #### L 501.6710, L101.9900, L100.0100 ####[facility] [address] [place], [address] Erythrocyte distribution wid th ratioOrdered By: Juan Oliver on 11-27-2024 Erythrocyte distribution width (RBC) [Ratio] 14.7 % High 11.6-14.6 [facility] Erythrocyte distribution wid th standard deviationOrdered By: Juan Oliver on 11-27-2024 Erythrocyte distribution width (RBC) [Ratio] 48.2 fl High 35.1-43.9 [facility] Erythrocyte sedimentation ra teOrdered By: Juan Oliver on 11-27-2024 ESR (Bld) [Velocity] 34 mm/h High 0-20 [facility] Hematocrit Auto (Bld) [Volum e fraction]Ordered By: Juan Oliver on 11-27-2024 Hematocrit (Bld) [Volume fraction] 38.8 % Low 40-54 [facility] Hemoglobin measurementOrdere d By: Juan Oliver on 11-27-2024 Hemoglobin (Bld) [Mass/Vol] 12.7 g/dL Low 13.0-16.5 [facility] Immature granulocytes/100 WB C Auto (Bld)Ordered By: Juan Oliver on 11-27-2024 Immature granulocytes/100 WBC (Bld) 0.500 % 0.0-0.9 [facility] Comment on above: IG% - Immature Granu locytes (promyelocytes, myelocytes and metamyelocytes) > 1% indicates that a LEFT SHIFT is Present. MCV (mean corpuscular volume ) determinationOrdered By: Juan Oliver on 11-27-2024 MCV (RBC) [Entitic vol] 89.0 fL 80-94 [facility] Mean corpuscular hemoglobin (MCH) determinationOrdered By: Juan Oliver on 11-27-2024 MCH (RBC) [Entitic mass] 29.1 pg 27.0-32.0 [facility] Mean corpuscular hemoglobin concentration (MCHC) determinationOrdered By: Juan Oliver on 11-27-2024 MCHC (RBC) [Mass/Vol] 32.7 g/dL 32-36 [facility] Mean platelet volume determi nationOrdered By: Juan Oliver on 11-27-2024 Platelet mean volume (Bld) [Entitic vol] 10.5 fL 6.2-12.0 [facility] Monocyte percentageOrdered B y: Juan Oliver on 11-27-2024 Monocytes/100 WBC (Bld) 7.6 % 0-10 [facility] Neutrophil percentageOrdered By: Juan Oliver on 11-27-2024 Neutrophils/100 WBC (Bld) 70.6 % High 47-70 [facility] Nucleated red blood cell per centageOrdered By: Juan Oliver on 11-27-2024 Nucleated RBC/100 WBC (Bld) [Ratio] 0 % 0-5 [facility] Platelet countOrdered By: Gaby Oliver on 11-27-2024 Platelets (Bld) [#/Vol] 242 10*3/uL 150-450 [facility] RBC Auto (Bld) [#/Vol]Ordere d By: Juan Oliver on 11-27-2024 RBC (Bld) [#/Vol] 4.36 10*6/uL Low 4.6-6.2 [facility] Serum or plasma C reactive p rotein measurement (mass/volume)Ordered By: Juan Oliver on 11-27-2024 CRP [Mass/Vol] mg/L 0.0-3.0 [facility] White blood cell (WBC) count Ordered By: Juan Oliver on 11-27-2024 WBC (Bld) [#/Vol] 10.7 10*3/uL 4.4-11.0 [facility] L/S Spine Min 4 Viewson L/S Spine Min 4 Views Normal [facility] MR/BMS.BVSon 11-14-2024 MR/BMS.BVS Normal [facility] CNOVon 11-09-2024 CNOV Office Visit (SILVIANOPWS ) ----- SHELTON KAY ([id number]) 1945 M Date Time Provider Department 11/09/24 11:00 AM DANNY JUÁREZ During your visit today, we recorded the following information about you: Pulse Blood pressure Weight 92/minute 122/76 78 kg Danny Juárez 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 Wood> [facility] ARTHRP KNE CONDYLEANDPLATU MEDIALANDLAT COMPARTMENTS Right COLONOSCOPY FLX DX W/COLLJ SPEC WHEN PFRMD 05/[address] Mejia COLONOSCOPY SCREENING 05/20/2023 COLONOSCOPY W/BIOPSY SINGLE/MULTIPLE 08/24/2006 EGD 12/01/2020 ESOPHAGOGASTRODUODENOSCOP Y TRANSORAL DIAGNOSTIC 05/2023 EYE SURGERY HX JOINT REPLACEMENT HX LAMINECTOMY,LUMBAR 06/20/2024 Dr. Pool with [facility] LEFT HEART CATH,PERCUTANEOUS 10/06/2022 OPEN REPAIR OF ROTATOR CUFF ACUTE 10/03/2008 Rotator cuff repair-right PAST SURGICAL HISTORY OF right knee scope PAST SURGICAL HISTORY OF cataract both eyes PAST SURGICAL HISTORY OF N/A 12/20/2022 EPS with Ablation, [facility] PAST SURGICAL HISTORY OF Right 12/26/2023 [...] mg by mouth two times a day. [facility] acetaminophen (TYLENOL) 325 mg tablet [...] daily. multi (more content not included)... Normal [facility] Lumbar Spine 2 or 3 Viewson 09-14-2024 Lumbar Spine 2 or 3 Views Normal [facility] Orthopedic Visit Reporton Orthopedic Visit Report Normal [facility] CNOVon 09-03-2024 CNOV Office Visit (FAMPWS ) ----- SHELTON KAY ([id number]) 1945 M Date Time Provider Department 09/03/24 10:00 AM RUTH MIRANDA During your visit today, we recorded the following information about you: Temperature Pulse Respiration Blood pressure 98.2 degrees 76/minute 16/minute 106/70 Weight 77 kg Ruth Miranda APRN.THRESHING MACHINE OPERATOR 09/03/2024 10:00 AM Addendum Strep Negative Get chest xray completed today Covid, flu, RSV pending Continue supportive care at home, stay well hydrated May use Codeine cough syrup as needed, may cause sleepiness Follow up pending test results or sooner as needed Ruth Miranda APRN.CNP 09/03/2024 10:15 AM Signed This is a 79 year old male who presents today with: Patient presents with: Acute Visit: flu/cough/fever HISTORY OF PRESENT ILLNESS: Shelton Kay is a 79 year old male. Patient presents with: Acute Visit: flu/cough/fever Here in the office for flu symptoms. Symptoms started last Tuesday. Ongoing sore throat, low-grade fever, and cough. Cough is dry. No wheezing or SOB. Taking Mucinex without relief. PAST MEDICAL HISTORY: PAST MEDICAL HISTORY Diagnosis Date Allergic rhinitis, cause unspecified Arthritis Atherosclerotic heart disease of [place] coronary artery without angina pectoris Atrial fibrillation [...] ACETBLR/PROX FEM PROSTC AGRFT/ALGRFT 04/2012 Dr. Wood> [facility] ARTHRP KNE CONDYLEANDPLATU MEDIALANDLAT COMPARTMENTS Right COLONOSCOPY FLX DX W/COLLJ SPEC WHEN PFRMD 05/[address] Mejia COLONOSCOPY SCREENING 05/20/2023 COLONOSCOPY W/BIOPSY SINGLE/MULTIPLE 08/24/2006 EGD 12/01/2020 ESOPHAGOGASTRODUODENOSCOP Y TRANSORAL DIAGNOSTIC 05/2023 EYE SURGERY HX JOINT REPLACEMENT HX LAMINECTOMY,LUMBAR 06/20/2024 Dr. Pool with [facility] LEFT HEART CATH,PERCUTANEOUS 10/06/2022 OPEN REPAIR OF ROTATOR CUFF ACUTE 10/03/2008 Rotator cuff repair-right PAST SURGICAL HISTORY OF right knee scope PAST SURGICAL HISTORY OF cataract both eyes PAST SURGICAL HISTORY OF N/A 12/20/2022 EPS with Ablation, [facility] PAST SURGICAL HISTORY OF Right 12/26/2023 [...] mg by mouth two times a day. [facility] acetaminophen (TYLENOL) 325 mg tablet [...] (MULTIVITAMIN 50 (more content not included)... Normal [facility] STREP A MOLECULAR (POC)on Procedural Control Valid [facility] Strep A (POCT) Negative Negative [facility] XR CHEST 2V FRONTAL/LATon XR CHEST 2V [...] tissues: Unremarkable. IMPRESSION: No acute radiographic abnormality. Cloth Shrinking Tester: SIA Transcribe Date/Time: Sep 03 2024 10:15A Dictated by : ABRAM MG MD This examination was interpreted and the report reviewed and electronically signed by: ABRAM MG MD on Sep 03 2024 10:17AM EST [id number] Normal [facility] XR Chest PA and Lateralon Radiology Study observation (narrative) [facility] IMPRESSION: No acute radiographic abnormality. Cloth Shrinking Tester: SIA Transcribe Date/Time: Sep 03 2024 10:15A Dictated [...] soft tissues: Unremarkable. DIVISION OF RADIOLOGY Provider, [facility] - 09/03/2024 * * *Final Report* * [...] Unremarkable. IMPRESSION IMPRESSION: No acute radiographic abnormality. Cloth Shrinking Tester: PSCDevorah Transcribe Date/Time: Sep 03 2024 10:15A Dictated by : ABRAM MG MD This examination was interpreted and the report reviewed and electronically signed by: ABRAM MG MD on Sep 03 2024 10:17AM EST [facility] XR Chest PA and LateralOrder ed By: Cc Provider on 09-03-2024 [facility] CNOVon 08-29-2024 CNOV Office Visit (FAMPWS ) ----- SHELTON KAY ([id number]) 1945 M Date Time Provider Department 08/29/24 10:00 AM RUTH MIRANDA During your visit today, we recorded the following information about you: Temperature Pulse Respiration Blood pressure 97.1 degrees 62/minute 16/minute 140/90 Weight 79.8 kg Ruth Miranda APRN.CNP 08/29/2024 12:58 PM Signed This is a 79 year old male who presents today with: Patient presents with: Follow Up: UC follow up for gout. Possible cold HISTORY OF PRESENT ILLNESS: Shelton Kay is a 79 year old male. Patient presents with: Follow Up: UC follow up for gout. Possible cold Here in the office for gout flare. Was seen in [facility] 08/24/23 treated with prednisone 40 mg daily [...] cause unspecified Arthritis Atherosclerotic heart disease of [place] coronary artery without angina pectoris Atrial fibrillation [...] ACETBLR/PROX FEM PROSTC AGRFT/ALGRFT 04/2012 Dr. Wood> [facility] ARTHRP KNE CONDYLEANDPLATU MEDIALANDLAT COMPARTMENTS Right COLONOSCOPY FLX DX W/COLLJ SPEC WHEN PFRMD 05/[address] Mejia COLONOSCOPY SCREENING 05/20/2023 COLONOSCOPY W/BIOPSY SINGLE/MULTIPLE 08/24/2006 EGD 12/01/2020 ESOPHAGOGASTRODUODENOSCOP Y TRANSORAL DIAGNOSTIC 05/2023 EYE SURGERY HX JOINT REPLACEMENT HX LAMINECTOMY,LUMBAR 06/20/2024 Dr. Pool with [facility] LEFT HEART CATH,PERCUTANEOUS 10/06/2022 OPEN REPAIR OF ROTATOR CUFF ACUTE 10/03/2008 Rotator cuff repair-right PAST SURGICAL HISTORY OF right knee scope PAST SURGICAL HISTORY OF cataract both eyes PAST SURGICAL HISTORY OF N/A 12/20/2022 EPS with Ablation, [facility] PAST SURGICAL HISTORY OF Right 12/26/2023 [...] once daily. Pain Management Dr. Burger pantoprazole (PROTONIX) 20 mg tablet Take 1 tablet by mouth daily before breakfast. Take on empty stomach, 1/2 hr before meal. lisinopril (ZESTRIL) 5 mg tablet Take 5 mg by mouth two times a day. [facility] acetaminophen (TYLENOL) 325 mg tablet [...] mg tab(s (more content not included)... Normal [facility] Comprehensive metabolic 2000 panelon 08-29-2024 Albumin [Mass/Vol] 4.4 g/dL Normal 3.9-4.9 [facility] Comment on above: Order Comment: Speci men Type: BLOOD SPECIMEN Ordering Facility: [facility] Address: [address] [place] [address] Performed By: #### 5 0190-8, 6-4 #### [facility] CLIA [id number] [address] [place] [address] [place] ALP [Catalytic activity/Vol] 83 U/L Normal 38-113 [facility] Comment on above: Order Comment: Speci men Type: BLOOD SPECIMEN Ordering Facility: [facility] Address: [address] [place] [address] Performed By: #### 5 0190-8, 2275-4 #### [facility] CLIA [id number] [address] [place] [address] [place] ALT [Catalytic activity/Vol] 24 U/L Normal 10-54 [facility] Comment on above: Order Comment: Speci men Type: BLOOD SPECIMEN Ordering Facility: [facility] Address: [address] [place] [address] Performed By: #### 5 0190-8, 2275-4 #### [facility] CLIA [id number] [address] [place] [address] [place] Anion gap [Moles/Vol] 12 mmol/L Normal 8-15 [facility] Comment on above: Order Comment: Speci men Type: BLOOD SPECIMEN Ordering Facility[facility] Address: [address] [place] [address] Performed By: #### 5 0190-8, 6-4 #### [facility] CLIA [id number] [address] [place] [address] [place] AST [Catalytic activity/Vol] 27 U/L Normal 14-40 [facility] Comment on above: Order Comment: Speci men Type: BLOOD SPECIMEN Ordering Facility[facility] Address: [address] [place] [address] Performed By: #### 5 0190-8, 2275-4 #### [facility] CLIA [id number] [address] [place] [address] [place] Bilirubin [Mass/Vol] 0.6 mg/dL Normal 0.2-1.3 [facility] Comment on above: Order Comment: Speci men Type: BLOOD SPECIMEN Ordering Facility[facility] Address: [address] [place] [address] Performed By: #### 5 0190-8, 2275-4 #### [facility] CLIA [id number] [address] [place] [address] [place] Calcium [Mass/Vol] 9.3 mg/dL Normal 8.5-10.2 [facility] Comment on above: Order Comment: Speci men Type: BLOOD SPECIMEN Ordering [facility] Address: [address] [place] [address] Performed By: #### 5 0190-8, 2275-4 #### [facility] CLIA [id number] [address] [place] [address] [place] Chloride [Moles/Vol] 105 mmol/L Normal 98-107 [facility] Comment on above: Order Comment: Speci men Type: BLOOD SPECIMEN Ordering [facility] Address: [address] [place] [address] Performed By: #### 5 0190-8, 2275-4 #### [facility] CLIA [id number] [address] [place] [address] [place] CO2 [Moles/Vol] 24 mmol/L Normal 22-30 [facility] Comment on above: Order Comment: Tiarra jackson Type: BLOOD SPECIMEN Ordering [facility] Address: [address] [place] [address] Performed By: #### 5 0190-8, 2275-4 #### [facility] CLIA [id number] [address] [place] [address] [place] Creatinine [Mass/Vol] 0.83 mg/dL Normal 0.73-1.22 [facility] Comment on above: Order Comment: Aimeei men Type: BLOOD SPECIMEN Ordering [facility] Address: [address] [place] [address] Performed By: #### 5 0190-8, 2275-4 #### [facility] CLIA [id number] [address] [place] [address] [place] Creatinine and Glomerular filtration rate.predicted panel (S/P/Bld) 89 mL/min/1.73m??? Normal >=60 [facility] Comment on above: Order Comment: Tiarra jackson Type: BLOOD SPECIMEN [facility] Address: [address] [place] [address] Result Comment: More mated Glomerular Filtration Rate [...] accurately reflect actual GFR. Performed By: #### 5 0190-8, 2275-4 #### [facility] CLIA [id number] [address] [place] [address] [place] Glucose [Mass/Vol] 132 mg/dL High 74-99 [facility] Comment on above: Order Comment: Tiarra men Type: BLOOD SPECIMEN Ordering [facility] Address: [address] [id number] Result Comment: The [place] [employer] (ADA) provides guidance for cutoff [...] Standards of Medical Care in Diabetes 2016, [place] [employer]. Diabetes Care. 2016.39(Suppl 1). Performed By: #### 5 0190-8, 6- #### [facility] CLIA [id number] [address] [place] [address] [place] Potassium [Moles/Vol] 4.5 mmol/L Normal 3.7-5.1 [facility] Comment on above: Order Comment: Speci men Type: BLOOD SPECIMEN Ordering [facility] Address: [address] [place] [address] Performed By: #### 5 0190-8, 2275- #### [facility] CLIA [id number] [address] [place] [address] [place] Protein [Mass/Vol] 6.9 g/dL Normal 6.3-8.0 [facility] Comment on above: Order Comment: Speci men Type: BLOOD SPECIMEN Ordering Facility: [facility] Address: [address] [place] [address] Performed By: #### 5 0190-8, 2275-10 #### [facility] CLIA [id number] [address] [place] [address] [place] Sodium [Moles/Vol] 141 mmol/L Normal 136-144 [facility] Comment on above: Order Comment: Speci men Type: BLOOD SPECIMEN Ordering [facility] Address: [address] [place] [address] Performed By: #### 5 0190-8, 2276-4 #### [facility] CLIA [id number] [address] [place] [address] [place] Urea nitrogen [Mass/Vol] 15 mg/dL Normal 9-24 [facility] Comment on above: Order Comment: Speci men Type: BLOOD SPECIMEN Ordering [facility] Address: [address] [place] [address] Performed By: #### 5 0190-8, 2276-4 #### [facility] CLIA [id number] [address] [place] [address] [place] Urate SerPl-mCncon Urate [Mass/Vol] 4.4 mg/dL Normal 4.0-8.1 [facility] Comment on above: Order Comment: Speci men Type: BLOOD SPECIMEN Ordering [facility] Address: [address] [place] [address] Performed By: #### 5 0190-8, 2276-4 #### [facility] CLIA [id number] [address] [place] [address] [place] CNOVon 08-24-2024 CNOV Office Visit (UCWSTR ) ----- SHELTON KAY ([id number]) 1945 M Date Time Provider Department 08/24/24 3:30 PM SUMAYA ALCAZAR During your visit today, we recorded the following information about you: Temperature Pulse Respiration Blood pressure 97 degrees 84/minute 18/minute 148/80 Weight 78.7 kg Sumaya Alcazar APRN.THRESHING MACHINE OPERATOR 08/24/2024 5:18 PM Signed Subjective HPI HPI Shelton Kay is a 78 year old male who [...] cause unspecified Arthritis Atherosclerotic heart disease of [place] coronary artery without angina pectoris Atrial fibrillation [...] ACETBLR/PROX FEM PROSTC AGRFT/ALGRFT 04/2012 Dr. Wood> [facility] ARTHRP KNE CONDYLEANDPLATU MEDIALANDLAT COMPARTMENTS Right COLONOSCOPY FLX DX W/COLLJ SPEC WHEN PFRMD 05/[address] Mejia COLONOSCOPY SCREENING 05/20/2023 COLONOSCOPY W/BIOPSY SINGLE/MULTIPLE 08/24/2006 EGD 12/01/2020 ESOPHAGOGASTRODUODENOSCOP Y TRANSORAL DIAGNOSTIC 05/2023 EYE SURGERY HX JOINT REPLACEMENT HX LAMINECTOMY,LUMBAR 06/20/2024 Dr. Pool with [facility] LEFT HEART CATH,PERCUTANEOUS 10/06/2022 OPEN REPAIR OF ROTATOR CUFF ACUTE 10/03/2008 Rotator cuff repair-right PAST SURGICAL HISTORY OF right knee scope PAST SURGICAL HISTORY OF cataract both eyes PAST SURGICAL HISTORY OF N/A 12/20/2022 EPS with Ablation, [facility] PAST SURGICAL HISTORY OF Right 12/26/2023 [...] ttl pk-yrs) (more content not included)... Normal [facility] XR KNEE 4V AP/PA BOTH+LAT/ME R [...] weightbearing frontal as labeled with the knees wemv-vm-rgun and including patellar sunrise views with the knees oxxm-as-gbrq. No identified osseous or other acute osseous abnormality or interval change either knee. No left knee joint effusion. No increased left prepatellar swelling and no identified prepatellar soft tissue calcifications. Preexistent findings as follows. Moderate well-defined left patellar dorsal proximal traction spur. Right knee arthroplasty. Chronic severe atherosclerosis IMPRESSION: No acute osseous findings Cloth Shrinking Tester: SIA Transcribe Date/Time: Aug 24 2024 4:55P Dictated by : MAYRA ODOM MD This examination was interpreted and the report reviewed and electronically signed by: MAYRA ODOM MD on Aug 24 2024 5:09PM EST [id number] Normal [facility] XR Knee - left 4 Viewson IMPRESSION: No acute osseous findings Cloth Shrinking Tester: PSCB Transcribe Date/Time: Aug 24 2024 4:55P Dictated [...] weightbearing frontal as labeled with the knees lllw-rv-vrid and including patellar sunrise views with the knees hwbm-hf-ogay. No identified osseous or other acute osseous abnormality or interval change either knee. No left knee joint effusion. No increased left prepatellar swelling and no identified prepatellar soft tissue calcifications. Preexistent findings as follows. Moderate well-defined left patellar dorsal proximal traction spur. Right knee arthroplasty. Chronic severe atherosclerosis DIVISION OF RADIOLOGY Provider, [facility] - 08/24/2024 * * *Final Report* * [...] weightbearing frontal as labeled with the knees covl-cy-foaj and including patellar sunrise views with the knees ffov-bg-ulsr. No identified osseous or other acute osseous abnormality or interval change either knee. No left knee joint effusion. No increased left prepatellar swelling and no identified prepatellar soft tissue calcifications. Preexistent findings as follows. Moderate well-defined left patellar dorsal proximal traction spur. Right knee arthroplasty. Chronic severe atherosclerosis IMPRESSION IMPRESSION: No acute osseous findings Cloth Shrinking Tester: SIA Transcribe Date/Time: Aug 24 2024 4:55P Dictated by : MAYRA ODOM MD This examination was interpreted and the report reviewed and electronically signed by: MAYRA ODOM MD on Aug 24 2024 5:09PM EST [facility] Radiology Study observation (narrative) [facility] XR Knee - left 4 ViewsOrdere d By: [facility] Provider on 08-24-2024 [facility] Cardiology Visit Reporton Cardiology Visit Report Normal [facility] CNOVon 07-24-2024 CNOV Office Visit (FAMPWS ) ----- SHELTON KAY ([id number]) 1945 M Date Time Provider Department 07/24/24 10:40 AM FEDERICO VIGIL During your visit today, we recorded the following information about you: Pulse Respiration Blood pressure Weight 74/minute 18/minute 110/68 77.7 kg Federico Vigil MD 07/24/2024 11:42 AM Signed Chief Complaint Patient presents with: 6 Month Exam HPI Shelton Kay is a 78 year old male who presents here today for 6 month follow up. No bowel, Gi, or urinary issues. Taking Protonix 20 mg daily for dysphagia. Anemia: Follows with Hem/Onc. Edema: terry legs; L>R foot. Uses Lasix 40 mg once daily as needed. A-fib: Follows with [facility] [place] [facility] Dr. Timothy Walker s/p ablation. Taking Eliquis 5 mg 1 pill twice daily. HTN: No chest pains, dizziness, or SOB. Checks BP at home. Taking Lisinopril 5 mg daily and Coreg 6.25 mg BID. Follows with [facility]. Lipid/CAD/PAD: Follows with Vascular Surgeon Dr. Phi Arreguin. Taking Zocor 20 mg daily and ASA [...] which was done by Dr. Pool with [facility]. He is following with Dr. Burger, Pain [...] cause unspecified Arthritis Atherosclerotic heart disease of [place] coronary artery without angina pectoris Atrial fibrillation [...] ACETBLR/PROX FEM PROSTC AGRFT/ALGRFT 04/2012 Dr. Wood> [facility] ARTHRP KNE CONDYLEANDPLATU MEDIALANDLAT COMPARTMENTS Right COLONOSCOPY FLX DX W/COLLJ SPEC WHEN PFRMD 05/[address] Mejia COLONOSCOPY SCREENING 05/20/2023 COLONOSCOPY W/BIOPSY SINGLE/MULTIPLE 08/24/2006 EGD 12/01/2020 ESOPHAGOGASTRODUODENOSCOP Y TRANSORAL DIAGNOSTIC 05/2023 EYE SURGERY HX JOINT REPLACEMENT HX LAMINECTOMY,LUMBAR 06/20/2024 Dr. Pool with [facility] LEFT HEART CATH,PERCUTANEOUS 10/06/2022 OPEN REPAIR OF ROTATOR CUFF ACUTE 10/03/2008 Rotator cuff repair-right PAST SURGICAL HISTORY OF right knee scope PAST SURGICAL HISTORY OF cataract both eyes PAST SURGICAL HISTORY OF N/A 12/20/2022 [facility]ST SURGICAL HISTORY OF Right 12/26/2023 [...] hr be (more content not included)... Normal [facility] CBC W Auto Differential pane l (Bld)on 07-19-2024 Basophils (Bld) [#/Vol] 0.04 10*3/uL Normal <0.11 [facility] Comment on above: Order Comment: Speci men Type: BLOOD SPECIMEN [facility] Address: [address] [place] [address] Performed By: #### 5 0190-8, 6- #### [facility] CLIA [id number] [address] [place] [address] [place] Basophils/100 WBC (Bld) 0.5 % Normal [facility] Comment on above: Order Comment: Speci men Type: BLOOD SPECIMEN Order[facility] Address: [address] [place] [address] Performed By: #### 5 0190-8, 6-4 #### [facility] CLIA [id number] [address] [place] [address] [place] Differential cell count method Nom (Bld) Auto Normal [facility] Comment on above: Order Comment: Speci men Type: BLOOD SPECIMEN [facility] Address: [address] [place] [address] Performed By: #### 5 0190-8, 2275-4 #### [facility] CLIA [id number] [address] [place] [address] [place] Eosinophils (Bld) [#/Vol] 0.11 10*3/uL Normal <0.46 [facility] Comment on above: Order Comment: Speci men Type: BLOOD SPECIMEN [facility] Address: [address] [place] [address] Performed By: #### 5 0190-8, 2275-4 #### [facility] CLIA [id number] [address] [place] [address] [place] Eosinophils/100 WBC (Bld) 1.5 % Normal [facility] Comment on above: Order Comment: Speci men Type: BLOOD SPECIMEN [facility] Address: [address] [place] [address] Performed By: #### 5 0190-8, 2275-10 #### [facility] CLIA [id number] [address] [place] [address] [place] Erythrocyte distribution width (RBC) [Ratio] 14.6 % Normal 11.5-15.0 [facility] Comment on above: Order Comment: Speci men Type: BLOOD SPECIMEN Order[facility] Address: [address] [place] [address] Performed By: #### 5 0190-8, 4 #### [facility] CLIA [id number] [address] [place] [address] [place] Hematocrit (Bld) [Volume fraction] 33.3 % Low 39.0-51.0 [facility] Comment on above: Order Comment: Speci men Type: BLOOD SPECIMEN Order[facility] Address: [address] [place] [address] Performed By: #### 5 0190-8, 2275-4 #### [facility] CLIA [id number] [address] [place] [address] [place] Hemoglobin (Bld) [Mass/Vol] 11.0 g/dL Low 13.0-17.0 [facility] Comment on above: Order Comment: Speci men Type: BLOOD SPECIMEN [facility] Address: [address] [place] [address] Performed By: #### 5 0190-8, 2275-4 #### [facility] CLIA [id number] [address] [place] [address] [place] Immature granulocytes (Bld) [#/Vol] 0.04 10*3/uL Normal <0.10 [facility] Comment on above: Order Comment: Speci men Type: BLOOD SPECIMEN [facility] Address: [address] [place] [address] Performed By: #### 5 0190-8, 2275-10 #### [facility] CLIA [id number] [address] [place] [address] [place] Immature granulocytes/100 WBC (Bld) 0.5 % Normal [facility] Comment on above: Order Comment: Speci men Type: BLOOD SPECIMEN [facility] Address: [address] [place] [address] Performed By: #### 5 0190-8, 2275-10 #### [facility] CLIA [id number] [address] [place] [address] [place] Lymphocytes (Bld) [#/Vol] 1.96 10*3/uL Normal 1.00-4.00 [facility] Comment on above: Order Comment: Speci men Type: BLOOD SPECIMEN [facility] Address: [address] [place] [address] Performed By: #### 5 0190-8, 2275-10 #### [facility] CLIA [id number] [address] [place] [address] [place] Lymphocytes/100 WBC (Bld) 26.8 % Normal [facility] Comment on above: Order Comment: Speci men Type: BLOOD SPECIMEN [facility] Address: [address] [place] [address] Performed By: #### 5 0190-8, 2275-10 #### [facility] CLIA [id number] [address] [place] [address] [place] MCH (RBC) [Entitic mass] 30.5 pg Normal 26.0-34.0 [facility] Comment on above: Order Comment: Speci men Type: BLOOD SPECIMEN [facility] Address: [address] [place] [address] Performed By: #### 5 0190-8, 2275-10 #### [facility] CLIA [id number] [address] [place] [address] [place] MCHC (RBC) [Mass/Vol] 33.0 g/dL Normal 30.5-36.0 [facility] Comment on above: Order Comment: Speci men Type: BLOOD SPECIMEN [facility] Address: [address] [place] [address] Performed By: #### 5 0190-8, 2275-10 #### [facility] CLIA [id number] [address] [place] [address] [place] MCV (RBC) [Entitic vol] 92.2 fL Normal 80.0-100.0 [facility] Comment on above: Order Comment: Speci men Type: BLOOD SPECIMEN Order[facility] Address: [address] [place] [address] Performed By: #### 5 0190-8, 2275-10 #### [facility] CLIA [id number] [address] [place] [address] [place] Monocytes (Bld) [#/Vol] 0.72 10*3/uL Normal <0.87 [facility] Comment on above: Order Comment: Speci men Type: BLOOD SPECIMEN [facility] Address: [address] [place] [address] Performed By: #### 5 0190-8, 2275-4 #### [facility] CLIA [id number] [address] [place] [address] [place] Monocytes/100 WBC (Bld) 9.9 % Normal [facility] Comment on above: Order Comment: Speci men Type: BLOOD SPECIMEN [facility] Address: [address] [place] [address] Performed By: #### 5 0190-8, 2275-4 #### [facility] CLIA [id number] [address] [place] [address] [place] Neutrophils (Bld) [#/Vol] 4.43 10*3/uL Normal 1.45-7.50 [facility] Comment on above: Order Comment: Speci men Type: BLOOD SPECIMEN [facility] Address: [address] [place] [address] Performed By: #### 5 0190-8, 2275-4 #### [facility] CLIA [id number] [address] [place] [address] [place] Neutrophils/100 WBC (Bld) 60.8 % Normal [facility] Comment on above: Order Comment: Speci men Type: BLOOD SPECIMEN [facility] Address: [address] [place] [address] Performed By: #### 5 0190-8, 2275- #### [facility] CLIA [id number] [address] [place] [address] [place] Nucleated RBC (Bld) [#/Vol] 10*3/uL Normal <0.01 [facility] Comment on above: Order Comment: Speci men Type: BLOOD SPECIMEN [facility] Address: [address] [place] [address] Performed By: #### 5 0190-8, 2275-4 #### [facility] CLIA [id number] [address] [place] [address] [place] Nucleated RBC/100 WBC (Bld) [Ratio] 0.0 /100 WBC Normal [facility] Comment on above: Order Comment: Speci men Type: BLOOD SPECIMEN [facility] Address: [address] [place] [address] Performed By: #### 5 0190-8, 2275-4 #### [facility] CLIA [id number] [address] [place] [address] [place] Platelet mean volume (Bld) [Entitic vol] 8.4 fL Low 9.0-12.7 [facility] Comment on above: Order Comment: Speci men Type: BLOOD SPECIMEN Order[facility] Address: [address] [place] [address] Performed By: #### 5 0190-8, 2275-4 #### [facility] CLIA [id number] [address] [place] [address] [place] Platelets (Bld) [#/Vol] 249 10*3/uL Normal 150-400 [facility] Comment on above: Order Comment: Speci men Type: BLOOD SPECIMEN Order[facility] Address: [address] [place] [address] Performed By: #### 5 0190-8, 2275-4 #### [facility] CLIA [id number] [address] [place] [address] [place] RBC (Bld) [#/Vol] 3.61 10*6/uL Low 4.20-6.00 [facility] Comment on above: Order Comment: Speci men Type: BLOOD SPECIMEN [facility] Address: [address] [place] [address] Performed By: #### 5 0190-8, 6-4 #### [facility] CLIA [id number] [address] [place] [address] [place] WBC (Bld) [#/Vol] 7.30 10*3/uL Normal 3.70-11.00 [facility] Comment on above: Order Comment: Speci men Type: BLOOD SPECIMEN [facility] Address: [address] [place] [address] Performed By: #### 5 0190-8, 6-4 #### [facility] CLIA [id number] [address] [place] [address] [place] Ferritin SerPl-ncon 2024 Ferritin [Mass/Vol] 430.0 ng/mL Normal 30.3-565.7 [facility] Comment on above: Order Comment: Speci men Type: BLOOD SPECIMEN Order[facility] Address: [address] [place] [address] Performed By: #### 5 0190-8, 2275-4 #### [facility] CLIA [id number] [address] [place] [address] [place] Iron and Iron binding capaci ty panelon 07-19-2024 Iron [Mass/Vol] 60 ug/dL Normal 41-186 [facility] Comment on above: Order Comment: Speci men Type: BLOOD SPECIMEN [facility] Address: [address] [place] [address] Performed By: #### 5 0190-8, 6-4 #### [facility] CLIA [id number] [address] [place] [address] [place] Iron binding capacity [Mass/Vol] 286 ug/dL Normal 232-386 [facility] Comment on above: Order Comment: Speci men Type: BLOOD SPECIMEN [facility] Address: [address] [place] [address] Performed By: #### 5 0190-8, 2276-4 #### [facility] CLIA [id number] [address] [place] [address] [place] Iron/TIBC [Molar ratio] 21.0 % Normal 15.0-57.0 [facility] Comment on above: Order Comment: Speci men Type: BLOOD SPECIMEN Order[facility] Address: [address] [place] [address] Performed By: #### 5 0190-8, 2276-4 #### [facility] CLIA [id number] [address] [place] [address] [place] CNPDarlin 07-16-2024 NAEL Telephone (TERELL) ----- SHELTON KAY ([id number]) 1945 M Date Time Provider Department 07/16/24 DAVID LUNDBERG During your visit today, we recorded the following information about you: Tommy CombsGuadalupe 07/16/2024 9:11 AM Signed Spouse called stating that patient had labs completed at [facility], she believes on 06/17. 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10] 05/20/2023 History of colonic polyps [Z86.0100] 05/20/2023 Cardiomyopathy, unspecified type (HCC) [I42.9] 06/22/2023 Preop examination [Z01.818] 12/19/2023 S/P carotid endarterectomy [Z98.890] 12/26/2023 Encounter Status:Closed by GINA MALAVE on 07/16/24 Normal [facility] Lumbar Spine 2 or 3 Viewson 07-06-2024 Lumbar Spine 2 or 3 Views Normal [facility] Orthopedic Visit Reporton Orthopedic Visit Report Normal [facility] CNPNon 07-02-2024 [facility] ([employer]) ----- SHELTON KAY ([id number]) 1945 M Date Time Provider Department 07/02/24 [facility] During your visit today, we recorded the following information about you: Barbara Roman, KEANU 07/02/2024 1:42 PM Signed Ranulfo with [facility] Physical Therapy calling with the following: [...] with clarification of frequency for this medication. [phone]. Thank you. Ruth Miranda APRN.LIZET 07/02/2024 2:28 PM Signed Can you please call Ranulfo back and let him know that yes the patient should be taking allopurinol 100 mg twice daily, I updated the MAR. We are also agreeable with physical therapy plan of care. Please let me know if he has any additional questions. Thank you. 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 PAD (peripheral artery disease) (HCC) [I73.9] 05/01/2019 Atrial fibrillation (HCC) [I48.91] 08/30/2022 Ischemic cardiomyopathy [I25.5] Status post catheter ablation of atrial fibrill*12/21/2022 Paroxysmal atrial fibrillation (HCC) [I48.0] 03/28/2023 Status post ablation of atrial flutter [Z98.890*03/28/2023 Dyspnea [R06.00] 03/29/2023 Coronary artery disease involving [place]*05/19/2023 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 Normal [facility] Basic Metabolic Profile (BMP )on 06-29-2024 BUN/CRE 15.9 RATIO Normal 10-20 [facility] Comment on above: Performed By: #### L 100.0500, L500.2500 ####[facility] [address] [place], [address] CA,Total 9.2 mg/dL Normal 8.5-10.1 [facility] Comment on above: Performed By: #### L 100.0500, L500.2500 ####[facility] [address] [place], [address] Chloride [Moles/Vol] 104 mmol/L Normal 98-107 [facility] Comment on above: Performed By: #### L 100.0500, L500.2500 ####[facility] [address] [place], [address] CO2 [Moles/Vol] 21.0 mmol/L Normal 21.0-32.0 [facility] Comment on above: Performed By: #### L 100.0500, L500.2500 ####[facility] [address] [place], [address] Creatinine [Mass/Vol] 1.13 mg/dL Normal 0.70-1.30 [facility] Comment on above: Result Comment: The validity of the calculated GFR GFRAA in patients over70 years has not been determined. Clinical correlation isessential. Performed By: #### L 100.0500, L500.2500 ####[facility] [address] [place], [address] ECRCL 55.63 ml/min Normal [facility] Comment on above: Performed By: #### L 100.0500, L500.2500 ####[facility] [address] [place], [address] EST GFR - AA 81 mL/min Normal >60 [facility] Comment on above: Result Comment: Afri can [place] GFR Calc Performed By: #### L 100.0500, L500.2500 ####[facility] [address] [place], [address] GAP 7 Normal 5-15 [facility] Comment on above: Performed By: #### L 100.0500, L500.2500 ####[facility] [address] [place], [address] GFR/1.73 sq M.predicted among non-blacks MDRD (S/P/Bld) [Vol rate/Area] 67 mL/min/{1.73_m2} Normal >60 [facility] Comment on above: Result Comment: Non- GFR Calc Performed By: #### L 100.0500, L500.2500 ####[facility] [address] [place], [address] Glucose [Mass/Vol] 101 mg/dL Normal 74-106 [facility] Comment on above: Result Comment: Fast ing Glucose result from 100 to 125 mg/dLsuggests IMPAIRED HOMEOSTASIS per A.D.A. criteria. Performed By: #### L 100.0500, L500.2500 ####[facility] [address] [place], [address] Potassium [Moles/Vol] 4.3 mmol/L Normal 3.5-5.1 [facility] Comment on above: Result Comment: Slig ht Hemolysis, Result may be falsely increased. Performed By: #### L 100.0500, L500.2500 ####[facility] [address] [place], [address] Sodium [Moles/Vol] 132 mmol/L Low 136-145 [facility] Comment on above: Performed By: #### L 100.0500, L500.2500 ####[facility] [address] [place], [address] Urea nitrogen [Mass/Vol] 18 mg/dL Normal 7-18 [facility] Comment on above: Performed By: #### L 100.0500, L500.2500 ####[facility] [address] [place], [address] CBC-Complete Blood Cnt No Di ffon 06-29-2024 Erythrocyte distribution width (RBC) [Ratio] 14.6 % Normal 11.6-14.6 [facility] Comment on above: Performed By: #### L 100.0500, L500.2500 ####[facility] [address] [place], [address] Hematocrit (Bld) [Volume fraction] 31.1 % Low 40-54 [facility] Comment on above: Performed By: #### L 100.0500, L500.2500 ####[facility] [address] [place], [address] Hemoglobin (Bld) [Mass/Vol] 10.5 g/dL Low 13.0-16.5 [facility] Comment on above: Performed By: #### L 100.0500, L500.2500 ####[facility] [address] [place], [address] MCH (RBC) [Entitic mass] 30.7 pg Normal 27.0-32.0 [facility] Comment on above: Performed By: #### L 100.0500, L500.2500 ####[facility] [address] [place], [address] MCHC (RBC) [Mass/Vol] 33.8 g/dL Normal 32-36 [facility] Comment on above: Performed By: #### L 100.0500, L500.2500 ####[facility] [address] [place], [address] MCV (RBC) [Entitic vol] 90.9 fL Normal 80-94 [facility] Comment on above: Performed By: #### L 100.0500, L500.2500 ####[facility] [address] [place], [address] Platelet mean volume (Bld) [Entitic vol] 8.9 fL Normal 6.2-12.0 [facility] Comment on above: Performed By: #### L 100.0500, L500.2500 ####[facility] [address] [place], [address] Platelets (Bld) [#/Vol] 240 10*3/uL Normal 150-450 [facility] Comment on above: Performed By: #### L 100.0500, L500.2500 ####[facility] [address] [place], [address] RBC (Bld) [#/Vol] 3.42 10*6/uL Low 4.6-6.2 [facility] Comment on above: Performed By: #### L 100.0500, L500.2500 ####[facility] [address] [place], [address] RDW SD 49.0 fl High 35.1-43.9 [facility] Comment on above: Performed By: #### L 100.0500, L500.2500 ####[facility] [address] [place], [address] WBC (Bld) [#/Vol] 10.3 10*3/uL Normal 4.4-11.0 [facility] Comment on above: Performed By: #### L 100.0500, L500.2500 ####[facility] [address] [place], [address] Ivette 06-29-2024 NAEL Telephone (FAMPWS) ----- SHELTON KAY ([id number]) 1945 M Date Time Provider Department 06/29/24 [facility] During your visit today, we recorded the following information about you: Evon Ross RN 06/29/2024 12:20 PM Signed Susy - [facility]- reports patient will discharge from [facility] today with orders for [facility] PT OT. Dx: L5 compression fracture. Asking if pcp is agreeable to follow for orders, and asking for delay in care order because [facility] is not available to see patient until Tuesday. Please phone Susy with verbal: [phone] [facility] MD 06/29/2024 1:52 PM Signed I am agreeable to follow for orders, and OK for delay in care order because 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10] 05/20/2023 History of colonic polyps [Z86.0100] 05/20/2023 Cardiomyopathy, unspecified type (HCC) [I42.9] 06/22/2023 Preop examination [Z01.818] 12/19/2023 S/P carotid endarterectomy [Z98.890] 12/26/2023 Encounter Status:Closed by Evon ROSS on 07/02/24 Normal [facility] Discharge Instructionon 06-17 Discharge Instruction Normal [facility] Basic Metabolic Profile (BMP )on 06-28-2024 BUN/CRE 14.1 RATIO Normal 05-06 [facility] Comment on above: Performed By: #### L 100.0500, L500.2500 ####[facility] [address] [place], [place], [id number] [place],Total 8.9 mg/dL Normal 8.5-10.1 [facility] Comment on above: Performed By: #### L 100.0500, L500.2500 ####[facility] [address] [place], [address] Chloride [Moles/Vol] 104 mmol/L Normal 98-107 [facility] Comment on above: Performed By: #### L 100.0500, L500.2500 ####[facility] [address] [place], [address] CO2 [Moles/Vol] 25.0 mmol/L Normal 21.0-32.0 [facility] Comment on above: Performed By: #### L 100.0500, L500.2500 ####[facility] [address] [place], [address] Creatinine [Mass/Vol] 0.92 mg/dL Normal 0.70-1.30 [facility] Comment on above: Result Comment: The validity of the calculated GFR GFRAA in patients over70 years has not been determined. Clinical correlation isessential. Performed By: #### L 100.0500, L500.2500 ####[facility] [address] [place], [address] ECRCL 68.33 ml/min Normal [facility] Comment on above: Performed By: #### L 100.0500, L500.2500 ####[facility] [address] [place], [address] EST GFR - AA 102 mL/min Normal >60 [facility] Comment on above: Result Comment: Afri can [place] GFR Calc Performed By: #### L 100.0500, L500.2500 ####[facility] [address] [place], [address] GAP 5 Normal 5-15 [facility] Comment on above: Performed By: #### L 100.0500, L500.2500 ####[facility] [address] [place], [address] GFR/1.73 sq M.predicted among non-blacks MDRD (S/P/Bld) [Vol rate/Area] 84 mL/min/{1.73_m2} Normal >60 [facility] Comment on above: Result Comment: Non- GFR Calc Performed By: #### L 100.0500, L500.2500 ####[facility] [address] [place], [address] Glucose [Mass/Vol] 102 mg/dL Normal 74-106 [facility] Comment on above: Result Comment: Fast ing Glucose result from 100 to 125 mg/dLsuggests IMPAIRED HOMEOSTASIS per A.D.A. criteria. Performed By: #### L 100.0500, L500.2500 ####[facility] [address] [place], [address] Potassium [Moles/Vol] 4.3 mmol/L Normal 3.5-5.1 [facility] Comment on above: Performed By: #### L 100.0500, L500.2500 ####[facility] [address] [place], [address] Sodium [Moles/Vol] 134 mmol/L Low 136-145 [facility] Comment on above: Performed By: #### L 100.0500, L500.2500 ####[facility] [address] [place], [address] Urea nitrogen [Mass/Vol] 13 mg/dL Normal 7-18 [facility] Comment on above: Performed By: #### L 100.0500, L500.2500 ####[facility] [address] [place], [address] CBC-Complete Blood Cnt No Di ffon 06-28-2024 Erythrocyte distribution width (RBC) [Ratio] 14.5 % Normal 11.6-14.6 [facility] Comment on above: Performed By: #### L 100.0500, L500.2500 ####[facility] [address] [place], [address] Hematocrit (Bld) [Volume fraction] 32.2 % Low 40-54 [facility] Comment on above: Performed By: #### L 100.0500, L500.2500 ####[facility] [address] [place], [address] Hemoglobin (Bld) [Mass/Vol] 11.0 g/dL Low 13.0-16.5 [facility] Comment on above: Performed By: #### L 100.0500, L500.2500 ####[facility] [address] [place], [address] MCH (RBC) [Entitic mass] 30.9 pg Normal 27.0-32.0 [facility] Comment on above: Performed By: #### L 100.0500, L500.2500 ####[facility] [address] [place], [address] MCHC (RBC) [Mass/Vol] 34.2 g/dL Normal 32-36 [facility] Comment on above: Performed By: #### L 100.0500, L500.2500 ####[facility] [address] [place], [address] MCV (RBC) [Entitic vol] 90.4 fL Normal 80-94 [facility] Comment on above: Performed By: #### L 100.0500, L500.2500 ####[facility] [address] [place], [address] Platelet mean volume (Bld) [Entitic vol] 9.0 fL Normal 6.2-12.0 [facility] Comment on above: Performed By: #### L 100.0500, L500.2500 ####[facility] [address] [place], [address] Platelets (Bld) [#/Vol] 249 10*3/uL Normal 150-450 [facility] Comment on above: Performed By: #### L 100.0500, L500.2500 ####[facility] [address] [place], [address] RBC (Bld) [#/Vol] 3.56 10*6/uL Low 4.6-6.2 [facility] Comment on above: Performed By: #### L 100.0500, L500.2500 ####[facility] [address] [place], [address] RDW SD 48.3 fl High 35.1-43.9 [facility] Comment on above: Performed By: #### L 100.0500, L500.2500 ####[facility] [address] [place], [address] WBC (Bld) [#/Vol] 11.0 10*3/uL Normal 4.4-11.0 [facility] Comment on above: Performed By: #### L 100.0500, L500.2500 ####[facility] [address] [place], [address] Consultation - Orthopedicson 06-28-2024 Consultation - Orthopedics Normal [facility] Basic Metabolic Profile (BMP )on 06-27-2024 BUN/CRE 12.6 RATIO Normal 10-20 [facility] Comment on above: Performed By: #### L 100.0100, L500.2500 ####[facility] [address] [place], [address] CA,Total 9.1 mg/dL Normal 8.5-10.1 [facility] Comment on above: Performed By: #### L 100.0100, L500.2500 ####[facility] [address] [place], [address] Chloride [Moles/Vol] 101 mmol/L Normal 98-107 [facility] Comment on above: Performed By: #### L 100.0100, L500.2500 ####[facility] [address] [place], [address] CO2 [Moles/Vol] 23.0 mmol/L Normal 21.0-32.0 [facility] Comment on above: Performed By: #### L 100.0100, L500.2500 ####[facility] [address] [place], [address] Creatinine [Mass/Vol] 0.95 mg/dL Normal 0.70-1.30 [facility] Comment on above: Result Comment: The validity of the calculated GFR GFRAA in patients over70 years has not been determined. Clinical correlation isessential. Performed By: #### L 100.0100, L500.2500 ####[facility] [address] [place], [address] ECRCL 66.17 ml/min Normal [facility] Comment on above: Performed By: #### L 100.0100, L500.2500 ####[facility] [address] [place], [address] EST GFR - AA 98 mL/min Normal >60 [facility] Comment on above: Result Comment: Afri can [place] GFR Calc Performed By: #### L 100.0100, L500.2500 ####[facility] [address] [place], [address] GAP 8 Normal 5-15 [facility] Comment on above: Performed By: #### L 100.0100, L500.2500 ####[facility] [address] [place], [address] GFR/1.73 sq M.predicted among non-blacks MDRD (S/P/Bld) [Vol rate/Area] 81 mL/min/{1.73_m2} Normal >60 [facility] Comment on above: Result Comment: Non- GFR Calc Performed By: #### L 100.0100, L500.2500 ####[facility] [address] [place], [address] Glucose [Mass/Vol] 112 mg/dL High 74-106 [facility] Comment on above: Result Comment: Fast ing Glucose result from 100 to 125 mg/dLsuggests IMPAIRED HOMEOSTASIS per A.D.A. criteria. Performed By: #### L 100.0100, L500.2500 ####[facility] [address] [place], [address] Potassium [Moles/Vol] 4.1 mmol/L Normal 3.5-5.1 [facility] Comment on above: Performed By: #### L 100.0100, L500.2500 ####[facility] [address] [place], [address] Sodium [Moles/Vol] 132 mmol/L Low 136-145 [facility] Comment on above: Performed By: #### L 100.0100, L500.2500 ####[facility] [address] [place], [address] Urea nitrogen [Mass/Vol] 12 mg/dL Normal 7-18 [facility] Comment on above: Performed By: #### L 100.0100, L500.2500 ####[facility] [address] [place], [address] CBC W/Diff, Automatedon 06-17 Absolute Lymph 1.70 X10 3/uL Normal 0.83-4.51 [facility] Comment on above: Performed By: #### L 100.0100, L500.2500 ####[facility] [address] [place], [address] Absolute Neut 6.6 X10 3/uL Normal 2.0-7.7 [facility] Comment on above: Performed By: #### L 100.0100, L500.2500 ####[facility] [address] [place], [address] Basophils/100 WBC (Bld) 0.4 % Normal 0-1 [facility] Comment on above: Performed By: #### L 100.0100, L500.2500 ####[facility] [address] [place], [address] Eosinophils/100 WBC (Bld) 2.1 % Normal 0-5 [facility] Comment on above: Performed By: #### L 100.0100, L500.2500 ####[facility] [address] [place], [address] Erythrocyte distribution width (RBC) [Ratio] 14.6 % Normal 11.6-14.6 [facility] Comment on above: Performed By: #### L 100.0100, L500.2500 ####[facility] [address] [place], [address] Hematocrit (Bld) [Volume fraction] 34.5 % Low 40-54 [facility] Comment on above: Performed By: #### L 100.0100, L500.2500 ####[facility] [address] [place], [address] Hemoglobin (Bld) [Mass/Vol] 12.0 g/dL Low 13.0-16.5 [facility] Comment on above: Performed By: #### L 100.0100, L500.2500 ####[facility] [address] [place], [address] IG% 1.100 High 0.0-0.9 [facility] Comment on above: Result Comment: IG% - Immature Granulocytes (promyelocytes, myelocytes andmetamyelocytes) > 1% indicates that a LEFT SHIFT is Present. Performed By: #### L 100.0100, L500.2500 ####[facility] [address] [place], [address] Lymphocytes/100 WBC (Bld) 18.0 % Low 19-41 [facility] Comment on above: Performed By: #### L 100.0100, L500.2500 ####[facility] [address] [place], [address] MCH (RBC) [Entitic mass] 31.3 pg Normal 27.0-32.0 [facility] Comment on above: Performed By: #### L 100.0100, L500.2500 ####[facility] [address] [place], [address] MCHC (RBC) [Mass/Vol] 34.8 g/dL Normal 32-36 [facility] Comment on above: Performed By: #### L 100.0100, L500.2500 ####[facility] [address] [place], [address] MCV (RBC) [Entitic vol] 89.8 fL Normal 80-94 [facility] Comment on above: Performed By: #### L 100.0100, L500.2500 ####[facility] [address] [place], [address] Monocytes/100 WBC (Bld) 8.1 % Normal 0-10 [facility] Comment on above: Performed By: #### L 100.0100, L500.2500 ####[facility] [address] [place], [address] Neutrophils/100 WBC (Bld) 70.3 % High 47-70 [facility] Comment on above: Performed By: #### L 100.0100, L500.2500 ####[facility] [address] [place], [address] Nucleated RBC (Bld) [#/Vol] 0 10*3/uL Normal 0-5 [facility] Comment on above: Performed By: #### L 100.0100, L500.2500 ####[facility] [address] [place], [address] Platelet mean volume (Bld) [Entitic vol] 9.0 fL Normal 6.2-12.0 [facility] Comment on above: Performed By: #### L 100.0100, L500.2500 ####[facility] [address] [place], [address] Platelets (Bld) [#/Vol] 265 10*3/uL Normal 150-450 [facility] Comment on above: Performed By: #### L 100.0100, L500.2500 ####[facility] [address] [place], [address] RBC (Bld) [#/Vol] 3.84 10*6/uL Low 4.6-6.2 [facility] Comment on above: Performed By: #### L 100.0100, L500.2500 ####[facility] [address] [place], [address] RDW SD 47.3 fl High 35.1-43.9 [facility] Comment on above: Performed By: #### L 100.0100, L500.2500 ####[facility] [address] [place], [address] WBC (Bld) [#/Vol] 9.4 10*3/uL Normal 4.4-11.0 [facility] Comment on above: Performed By: #### L 100.0100, L500.2500 ####[facility] [address] [place], [address] Emergency Department Summary on 06-27-2024 Emergency Department Summary Normal [facility] H AND P Exam - Hospitaliston 06-27-2024 H&P Exam - Hospitalist Normal [facility] Spine Lumbar (Routine)on Spine Lumbar (Routine) Normal [facility] Urinalysis, Completeon 06-27 BACTERIA 0 SEEN Normal None Seen [facility] Comment on above: Order Comment: COLLE CTOR TO SPECIFY Performed By: #### L 400.0001 ####[facility] [address] [place], [address] EPI,SQUAMOUS 0 SEEN Normal 0-5 [facility] Comment on above: Order Comment: COLLE CTOR TO SPECIFY Performed By: #### L 400.0001 ####[facility] [address] [place], [address] Mucus Ql (Urine sed) 0 SEEN Normal [facility] Comment on above: Order Comment: COLLE CTOR TO SPECIFY Performed By: #### L 400.0001 ####[facility] [address] [place], [address] RBC 0 SEEN Normal 0-5 [facility] Comment on above: Order Comment: COLLE CTOR TO SPECIFY Performed By: #### L 400.0001 ####[facility] [address] [place], [address] WBC 0 SEEN Normal 0-5 [facility] Comment on above: Order Comment: COLLE CTOR TO SPECIFY Performed By: #### L 400.0001 ####[facility] [address] [place], [address] Basic Metabolic Profile (BMP )on 06-21-2024 BUN/CRE 20.4 RATIO High 10-20 [facility] Comment on above: Performed By: #### L 100.0500, L500.2500 ####[facility] [address] [place], [address] CA,Total 9.1 mg/dL Normal 8.5-10.1 [facility] Comment on above: Performed By: #### L 100.0500, L500.2500 ####[facility] [address] [place], [address] Chloride [Moles/Vol] 103 mmol/L Normal 98-107 [facility] Comment on above: Performed By: #### L 100.0500, L500.2500 ####[facility] [address] [place], [address] CO2 [Moles/Vol] 22.0 mmol/L Normal 21.0-32.0 [facility] Comment on above: Performed By: #### L 100.0500, L500.2500 ####[facility] [address] [place], [address] Creatinine [Mass/Vol] 0.98 mg/dL Normal 0.70-1.30 [facility] Comment on above: Result Comment: The validity of the calculated GFR GFRAA in patients over70 years has not been determined. Clinical correlation isessential. Performed By: #### L 100.0500, L500.2500 ####[facility] [address] [place], [address] ECRCL 64.14 ml/min Normal [facility] Comment on above: Performed By: #### L 100.0500, L500.2500 ####[facility] [address] [place], [address] EST GFR - AA 95 mL/min Normal >60 [facility] Comment on above: Result Comment: Afri can [place] GFR Calc Performed By: #### L 100.0500, L500.2500 ####[facility] [address] [place], [address] GAP 7 Normal 5-15 [facility] Comment on above: Performed By: #### L 100.0500, L500.2500 ####[facility] [address] [place], [address] GFR/1.73 sq M.predicted among non-blacks MDRD (S/P/Bld) [Vol rate/Area] 79 mL/min/{1.73_m2} Normal >60 [facility] Comment on above: Result Comment: Non- GFR Calc Performed By: #### L 100.0500, L500.2500 ####[facility] [address] [place], [address] Glucose [Mass/Vol] 171 mg/dL High 74-106 [facility] Comment on above: Result Comment: Fast ing Glucose result greater than or equal to 126 mg/dLsuggests DIABETES MELLITUS per A.D.A. criteria. Performed By: #### L 100.0500, L500.2500 ####[facility] [address] [place], [address] Potassium [Moles/Vol] 4.7 mmol/L Normal 3.5-5.1 [facility] Comment on above: Performed By: #### L 100.0500, L500.2500 ####[facility] [address] [place], [address] Sodium [Moles/Vol] 132 mmol/L Low 136-145 [facility] Comment on above: Performed By: #### L 100.0500, L500.2500 ####[facility] [address] [place], [address] Urea nitrogen [Mass/Vol] 20 mg/dL High 7-18 [facility] Comment on above: Performed By: #### L 100.0500, L500.2500 ####[facility] [address] [place], [address] CBC-Complete Blood Cnt No Di ffon 06-21-2024 Erythrocyte distribution width (RBC) [Ratio] 14.8 % High 11.6-14.6 [facility] Comment on above: Performed By: #### L 100.0500, L500.2500 ####[facility] [address] [place], [address] Hematocrit (Bld) [Volume fraction] 36.5 % Low 40-54 [facility] Comment on above: Performed By: #### L 100.0500, L500.2500 ####[facility] [address] [place], [address] Hemoglobin (Bld) [Mass/Vol] 12.2 g/dL Low 13.0-16.5 [facility] Comment on above: Performed By: #### L 100.0500, L500.2500 ####[facility] [address] [place], [address] MCH (RBC) [Entitic mass] 30.2 pg Normal 27.0-32.0 [facility] Comment on above: Performed By: #### L 100.0500, L500.2500 ####[facility] [address] [place], [address] MCHC (RBC) [Mass/Vol] 33.4 g/dL Normal 32-36 [facility] Comment on above: Performed By: #### L 100.0500, L500.2500 ####[facility] [address] [place], [address] MCV (RBC) [Entitic vol] 90.3 fL Normal 80-94 [facility] Comment on above: Performed By: #### L 100.0500, L500.2500 ####[facility] [address] [place], [address] Platelet mean volume (Bld) [Entitic vol] 9.3 fL Normal 6.2-12.0 [facility] Comment on above: Performed By: #### L 100.0500, L500.2500 ####[facility] [address] [place], [address] Platelets (Bld) [#/Vol] 218 10*3/uL Normal 150-450 [facility] Comment on above: Performed By: #### L 100.0500, L500.2500 ####[facility] [address] [place], [address] RBC (Bld) [#/Vol] 4.04 10*6/uL Low 4.6-6.2 [facility] Comment on above: Performed By: #### L 100.0500, L500.2500 ####[facility] [address] [place], [address] RDW SD 48.4 fl High 35.1-43.9 [facility] Comment on above: Performed By: #### L 100.0500, L500.2500 ####[facility] [address] [place], [address] WBC (Bld) [#/Vol] 14.2 10*3/uL High 4.4-11.0 [facility] Comment on above: Performed By: #### L 100.0500, L500.2500 ####[facility] [address] [place], [address] Bedside Glucoseon 06-20-2024 FINGERSTICK GLU 105 mg/dL Normal 74-106 [facility] Comment on above: Result Comment: SHANA QUESADA OF PATIENT CARE PER NURSING PROTOCOL Performed By: #### L 501.080 ####[facility] [address] [place], [address] MR/POSTOP.ANEon 06-20-2024 MR/POSTOP.ANE Normal [facility] MR/NLYRHETV6on 06-20-2024 MR/POSTOPAN2 Normal [facility] Operative Reporton 4 Operative Report Normal [facility] Spine 1 View Any Levelon Spine 1 View Any Level Normal [facility] CNPNon 06-18-2024 CNPN Telephone (INTMWS) ----- SHELTON KAY ([id number]) 1945 M Date Time Provider Department 06/18/24 RUTH MIRANDA During your visit today, we recorded the following information about you: Gt Barcenas LPN 06/18/2024 2:17 PM Signed called asking that today labs be faxed to Dr. Pool at [facility]. Labs printed and faxed as requested. 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10] 05/20/2023 History of colonic polyps [Z86.0100] 05/20/2023 Cardiomyopathy, unspecified type (HCC) [I42.9] 06/22/2023 Preop examination [Z01.818] 12/19/2023 S/P carotid endarterectomy [Z98.890] 12/26/2023 Encounter Status:Closed by GT BARCENAS on 07/06/24 Normal [facility] Comprehensive metabolic 2000 panelon 06-18-2024 Albumin [Mass/Vol] 4.3 g/dL Normal 3.9-4.9 [facility] Comment on above: Order Comment: Aimeei manuel Type: BLOOD SPECIMEN Ordering Facility: [facility] Address: [address] [place] [address] Performed By: #### 5 0190-8, 6-4 #### [facility] CLIA [id number] [address] [place] [address] [place] ALP [Catalytic activity/Vol] 110 U/L Normal 38-113 [facility] Comment on above: Order Comment: Aimeei manuel Type: BLOOD SPECIMEN Ordering Facility: [facility] Address: [address] [place] [address] Performed By: #### 5 0190-8, 2275-4 #### [facility] CLIA [id number] [address] [place] [address] [place] ALT [Catalytic activity/Vol] 19 U/L Normal 10-54 [facility] Comment on above: Order Comment: Aimeei men Type: BLOOD SPECIMEN Ordering Facility: [facility] Address: [address] [place] [address] Performed By: #### 5 0190-8, 6-4 #### [facility] CLIA [id number] [address] [place] [address] [place] Anion gap [Moles/Vol] 14 mmol/L Normal 8-15 [facility] Comment on above: Order Comment: Speci men Type: BLOOD SPECIMEN Ordering Facility: [facility] Address: [address] [place] [address] Performed By: #### 5 0190-8, 6-4 #### [facility] CLIA [id number] [address] [place] [address] [place] AST [Catalytic activity/Vol] 25 U/L Normal 14-40 [facility] Comment on above: Order Comment: Speci men Type: BLOOD SPECIMEN Ordering Facility: [facility] Address: [address] [place] [address] Performed By: #### 5 0190-8, 2275-4 #### [facility] CLIA [id number] [address] [place] [address] [place] Bilirubin [Mass/Vol] 0.9 mg/dL Normal 0.2-1.3 [facility] Comment on above: Order Comment: Speci men Type: BLOOD SPECIMEN Ordering Facility: [facility] Address: [address] [place] [address] Performed By: #### 5 0190-8, 2275-4 #### [facility] CLIA [id number] [address] [place] [address] [place] Calcium [Mass/Vol] 9.8 mg/dL Normal 8.5-10.2 [facility] Comment on above: Order Comment: Speci men Type: BLOOD SPECIMEN Ordering Facility: [facility] Address: [address] [place] [address] Performed By: #### 5 0190-8, 6-4 #### [facility] CLIA [id number] [address] [place] [address] [place] Chloride [Moles/Vol] 97 mmol/L Low 98-107 [facility] Comment on above: Order Comment: Speci men Type: BLOOD SPECIMEN Ordering [facility]: [facility] Address: [address] [place] [address] Performed By: #### 5 0190-8, 2276-4 #### [facility] CLIA [id number] [address] [place] [address] [place] CO2 [Moles/Vol] 19 mmol/L Low 22-30 [facility] Comment on above: Order Comment: Speci men Type: BLOOD SPECIMEN Ordering [facility]: [facility] Address: [address] [place] [address] Performed By: #### 5 0190-8, 6-4 #### [facility] CLIA [id number] [address] [place] [address] [place] Creatinine [Mass/Vol] 0.96 mg/dL Normal 0.73-1.22 [facility] Comment on above: Order Comment: Speci men Type: BLOOD SPECIMEN Ordering [facility]: [facility] Address: [address] [place] [address] Performed By: #### 5 0190-8, 6-4 #### [facility] CLIA [id number] [address] [place] [address] [place] Creatinine and Glomerular filtration rate.predicted panel (S/P/Bld) 81 mL/min/1.73m??? Normal >=60 [facility] Comment on above: Order Comment: Speci men Type: BLOOD SPECIMEN Ordering [facility]: [facility] Address: [address] [place] [address] Result Comment: More mated Glomerular Filtration Rate [...] accurately reflect actual GFR. Performed By: #### 5 0190-8, 6-4 #### [facility] CLIA [id number] [address] [place] [address] [place] Glucose [Mass/Vol] 113 mg/dL High 74-99 [facility] Comment on above: Order Comment: Speci men Type: BLOOD SPECIMEN Ordering [facility]: [facility] Address: [address] [place] [address] Result Comment: The [place] Diabetes Association (ADA) provides guidance for cutoff [...] Standards of Medical Care in Diabetes 2016, [place] [employer] Association. Diabetes Care. 2016.39(Suppl 1). Performed By: #### 5 0190-8, 2275-4 #### [facility] CLIA [id number] [address] [place] [address] [place] Potassium [Moles/Vol] 5.2 mmol/L High 3.7-5.1 [facility] Comment on above: Order Comment: Aimeei men Type: BLOOD SPECIMEN Order[facility] Address: [address] [place] [address] Performed By: #### 5 0190-8, 6-4 #### [facility] CLIA [id number] [address] [place] [address] [place] Protein [Mass/Vol] 7.1 g/dL Normal 6.3-8.0 [facility] Comment on above: Order Comment: Aimeei men Type: BLOOD SPECIMEN Ordering [facility]: [facility] Address: [address] [place] [address] Performed By: #### 5 0190-8, 6-4 #### [facility] CLIA [id number] [address] [place] [address] [place] Sodium [Moles/Vol] 130 mmol/L Low 136-144 [facility] Comment on above: Order Comment: Speci men Type: BLOOD SPECIMEN Ordering [facility]: [facility] Address: [address] [place] [address] Performed By: #### 5 0190-8, 2275-4 #### [facility] CLIA [id number] [address] [place] [address] [place] Urea nitrogen [Mass/Vol] 37 mg/dL High 9-24 [facility] Comment on above: Order Comment: Speci men Type: BLOOD SPECIMEN Ordering [facility] Address: [address] [place] [address] Performed By: #### 5 0190-8, 2275-4 #### [facility] CLIA [id number] [address] [place] [address] [place] Comprehensive metabolic 2000 panelon 06-15-2024 Albumin [Mass/Vol] 4.5 g/dL Normal 3.9-4.9 [facility] Comment on above: Order Comment: Speci men Type: BLOOD SPECIMEN Ordering [facility]: [facility] Address: [address] [place] [address] Performed By: #### 2 4323-8 #### [facility] CLIA [id number] [address] [place] [address] [place] ALP [Catalytic activity/Vol] 97 U/L Normal 38-113 [facility] Comment on above: Order Comment: Speci men Type: BLOOD SPECIMEN Ordering [facility] Address: [address] [place], [place] [address] Performed By: #### 2 4323-8 #### [facility] CLIA [id number] [address] [place] [place] [id number] [place] ALT [Catalytic activity/Vol] 21 U/L Normal 10-54 [facility] Comment on above: Order Comment: Speci men Type: BLOOD SPECIMEN Order[facility] Address: [address] [place] [address] Performed By: #### 2 4323-8 #### [facility] CLIA [id number] [address] [place] [address] [place] Anion gap [Moles/Vol] 10 mmol/L Normal 8-15 [facility] Comment on above: Order Comment: Speci men Type: BLOOD SPECIMEN Order[facility] Address: [address] [place] [address] Performed By: #### 2 4323-8 #### [facility] CLIA [id number] [address] [place] [address] [place] AST [Catalytic activity/Vol] 31 U/L Normal 14-40 [facility] Comment on above: Order Comment: Speci men Type: BLOOD SPECIMEN Order[facility] Address: [address] [place] [address] Performed By: #### 2 4323-8 #### [facility] CLIA [id number] [address] [place] [address] [place] Bilirubin [Mass/Vol] 0.5 mg/dL Normal 0.2-1.3 [facility] Comment on above: Order Comment: Speci men Type: BLOOD SPECIMEN Ordering [facility]: [facility] Address: [address] [place] [address] Performed By: #### 2 4323-8 #### [facility] CLIA [id number] [address] [place] [address] [place] Calcium [Mass/Vol] 9.8 mg/dL Normal 8.5-10.2 [facility] Comment on above: Order Comment: Speci men Type: BLOOD SPECIMEN Ordering [facility] Address: [address] [place] [address] Performed By: #### 2 4323-8 #### [facility] CLIA [id number] [address] [place] [address] [place] Chloride [Moles/Vol] 94 mmol/L Low 98-107 [facility] Comment on above: Order Comment: Speci men Type: BLOOD SPECIMEN Ordering [facility]: [facility] Address: [address] [place] [address] Performed By: #### 2 4323-8 #### [facility] CLIA [id number] [address] [place] [address] [place] CO2 [Moles/Vol] 22 mmol/L Normal 22-30 [facility] Comment on above: Order Comment: Speci men Type: BLOOD SPECIMEN Ordering [facility] Address: [address] [place] [address] Performed By: #### 2 4323-8 #### [facility] CLIA [id number] [address] [place] [address] [place] Creatinine [Mass/Vol] 1.04 mg/dL Normal 0.73-1.22 [facility] Comment on above: Order Comment: Speci men Type: BLOOD SPECIMEN Order[facility] Address: [address] [place] [address] Performed By: #### 2 4323-8 #### [facility] CLIA [id number] [address] [place] [address] [place] Creatinine and Glomerular filtration rate.predicted panel (S/P/Bld) 73 mL/min/1.73m??? Normal >=60 [facility] Comment on above: Order Comment: Speci men Type: BLOOD SPECIMEN Order[facility] Address: [address] [place] [address] Result Comment: More mated Glomerular Filtration Rate [...] actual GFR. Performed By: #### 2 4323-8 #### [facility] CLIA [id number] [address] [place] [address] [place] Glucose [Mass/Vol] 130 mg/dL High 74-99 [facility] Comment on above: Order Comment: Tiarra jackson Type: BLOOD SPECIMEN Ordering [facility] Address: [address] [place] [address] Result Comment: The [place] Diabetes Association (ADA) provides guidance for cutoff [...] Standards of Medical Care in Diabetes 2016, [place] [employer]. Diabetes Care. 2016.39(Suppl 1). Performed By: #### 2 4323-8 #### [facility] CLIA [id number] [address] [place] [address] [place] Potassium [Moles/Vol] 5.3 mmol/L High 3.7-5.1 [facility] Comment on above: Order Comment: Tiarra jackson Type: BLOOD SPECIMEN Order[facility] Address: [address] [place] [address] Performed By: #### 2 4323-8 #### [facility] CLIA [id number] [address] [place] [address] [place] Protein [Mass/Vol] 7.3 g/dL Normal 6.3-8.0 [facility] Comment on above: Order Comment: Speci men Type: BLOOD SPECIMEN Ordering [facility] Address: [address] [place], [place] [address] Performed By: #### 2 4323-8 #### [facility] CLIA [id number] [address] [place] [address] [place] Sodium [Moles/Vol] 126 mmol/L Low 136-144 [facility] Comment on above: Order Comment: Speci men Type: BLOOD SPECIMEN Ordering [facility] Address: [address] [place] [address] Performed By: #### 2 4323-8 #### [facility] CLIA [id number] [address] [place], [place] [address] [place] Urea nitrogen [Mass/Vol] 28 mg/dL High 9-24 [facility] Comment on above: Order Comment: Speci men Type: BLOOD SPECIMEN [facility] Address: [address] [place] [address] Performed By: #### 2 4323-8 #### [id number] [address] [place] [address] OF [facility] CNPNon 06-13-2024 [facility] ----- SHELTON KAY ([id number]) 1945 M Date Time Provider Department 06/13/24 [facility] During your visit today, we recorded the following information about you: Evon Ross RN 06/13/2024 9:35 AM Addendum Susy- Dr. Pool's office- [facility]- phoned to let Ruth know, labs and EKG were completed yesterday. The lab results are in epic as outside labs. Susy wants to make sure you look at the Sodium lab- was 128 yesterday. Susy is going to fax the EKG results to your office today. Dr. 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 Ruth Miranda APRN.CNP 06/13/2024 12:18 PM Signed Can you [...] can recheck labs on Tuesday or Tuesday? NITA Monique Barbara, LPN 06/13/2024 12:30 PM Signed Patient notified of updates, verbalizes understanding of instructions. stated they will do labs on Tuesday. FREDDY Hays Ashley, APRN.CNP 06/13/2024 2:27 PM Signed Lab order has been placed. Thank you. NITA Monique Ashley, APRN.CNP 06/15/2024 2:14 PM Signed Can you please call the patient and and let them know that I reviewed his repeat lab results. Sodium is still low and potassium was mildly elevated. However I am concerned that the mild elevated glucose is affecting the sodium level. We can repeat labs on Tuesday however I would prefer that he fast. NITA Monique Barbara, LPN 06/15/2024 2:18 PM Signed Patient notified of results, verbalizes understanding of instructions. FREDDY Hays Ashley, APRN.CNP 06/15/2024 2:21 PM Signed Lab order placed. Preop forms faxed NITA Monique Ashley, APRN.CNP 06/15/2024 2:21 PM Signed Addended by: RUTH MIRANDA on: 06/15/2024 02:21 PM Modules accepted: Orders [...] [E87.5] Order(s):COMPREHENSIVE METABOLIC PANEL [SQCMP] Order #: [id number] FUTURE COMPREHENSIVE METABOLIC PANEL [SQCMP] Order #: [id number] FUTURE Prescriptions as of 06/15/2024 - allopurinol [...] the last (more content not included)... Normal [facility] Hepatitis A AB, Totalon 05-19 HEPATITIS A,TOT Negative Normal Negative [facility] Comment on above: Result Comment: Comm ent: [...] HAVtotal antibody results to IgM (e.g., panel #[id number] HAVAntibody w/ Rfx).Performed at: [address] [id number] Director: Emmanuel Lazcano PhD, Phone: [phone] Performed By: #### L 100.0100, L500.2500, L3100.0300, BTSPAT, L3890.6200, L3890.6300, M100.651, R4880.2192 ####[facility] [address] [place], [address] MRSA/SAID NASAL SCREENon MRSA+SAID SCRN Reason for Exam: PRE OP MRSA MRSA Negative S. AUREUS S. aureus PositiveA Normal [facility] Comment on above: Performed By: #### L 100.0100, L500.2500, L3100.0300, BTSPAT, L3890.6200, L3890.6300, M100.651, L3890.6005 ####[facility] [address] [place], [address] 12 Lead EKGon 06-12-2024 12 Lead EKG Normal [facility] Basic Metabolic Profile (BMP )on 06-12-2024 BUN/CRE 20.1 RATIO High 10- [facility] Comment on above: Performed By: #### L 100.0100, L500.2500, L3100.0300, BTSPAT, L3890.6200, L3890.6300, M100.651, L3890.6005 ####[facility] [address] [place], [address] CA,Total 9.4 mg/dL Normal 8.5-10.1 [facility] Comment on above: Performed By: #### L 100.0100, L500.2500, L3100.0300, BTSPAT, L3890.6200, L3890.6300, M100.651, L3890.6005 ####[facility] [address] [place], [address] Chloride [Moles/Vol] 97 mmol/L Low 98-107 [facility] Comment on above: Performed By: #### L 100.0100, L500.2500, L3100.0300, BTSPAT, L3890.6200, L3890.6300, M100.651, L3890.6005 ####[facility] [address] [place], [address] CO2 [Moles/Vol] 25.0 mmol/L Normal 21.0-32.0 [facility] Comment on above: Performed By: #### L 100.0100, L500.2500, L3100.0300, BTSPAT, L3890.6200, L3890.6300, M100.651, L3890.6005 ####[facility] [address] [place], [place], [phone] Creatinine [Mass/Vol] 1.34 mg/dL High 0.70-1.30 [facility] Comment on above: Result Comment: The validity of the calculated GFR GFRAA in patients over70 years has not been determined. Clinical correlation isessential. Performed By: #### L 100.0100, L500.2500, L3100.0300, BTSPAT, L3890.6200, L3890.6300, M100.651, L3890.6005 ####[facility] [address] [place], [address] EST GFR - AA 66 mL/min Normal >60 [facility] Comment on above: Result Comment: Afri can [place] GFR Calc Performed By: #### L 100.0100, L500.2500, L3100.0300, BTSPAT, L3890.6200, L3890.6300, M100.651, L3890.6005 ####[facility] [address] [place], [address] GAP 6 Normal 5-15 [facility] Comment on above: Performed By: #### L 100.0100, L500.2500, L3100.0300, BTSPAT, L3890.6200, L3890.6300, M100.651, L3890.6005 ####[facility] [address] [place], [address] GFR/1.73 sq M.predicted among non-blacks MDRD (S/P/Bld) [Vol rate/Area] 55 mL/min/{1.73_m2} Low >60 [facility] Comment on above: Result Comment: Non- GFR Calc Performed By: #### L 100.0100, L500.2500, L3100.0300, BTSPAT, L3890.6200, L3890.6300, M100.651, L3890.6005 ####[facility] [address] [place], [address] Glucose [Mass/Vol] 101 mg/dL Normal 74-106 [facility] Comment on above: Result Comment: Fast ing Glucose result from 100 to 125 mg/dLsuggests IMPAIRED HOMEOSTASIS per A.D.A. criteria. Performed By: #### L 100.0100, L500.2500, L3100.0300, BTSPAT, L3890.6200, L3890.6300, M100.651, L3890.6005 ####[facility] [address] [place], [address] Potassium [Moles/Vol] 5.0 mmol/L Normal 3.5-5.1 [facility] Comment on above: Performed By: #### L 100.0100, L500.2500, L3100.0300, BTSPAT, L3890.6200, L3890.6300, M100.651, L3890.6005 ####[facility] [address] [place], [address] Sodium [Moles/Vol] 128 mmol/L Low 136-145 [facility] Comment on above: Performed By: #### L 100.0100, L500.2500, L3100.0300, BTSPAT, L3890.6200, L3890.6300, M100.651, L3890.6005 ####[facility] [address] [place], [address] Urea nitrogen [Mass/Vol] 27 mg/dL High 7-18 [facility] Comment on above: Performed By: #### L 100.0100, L500.2500, L3100.0300, BTSPAT, L3890.6200, L3890.6300, M100.651, L3890.6005 ####[facility] [address] [place], [address] CBC W/Diff, Automatedon 11-2 -2023 Absolute Lymph 2.18 X10 3/uL Normal 0.83-4.51 [facility] Comment on above: Performed By: #### L 100.0100, L500.2500, L3100.0300, BTSPAT, L3890.6200, L3890.6300, M100.651, L3890.6005 ####[facility] [address] [place], [address] Absolute Neut 8.6 X10 3/uL High 2.0-7.7 [facility] Comment on above: Performed By: #### L 100.0100, L500.2500, L3100.0300, BTSPAT, L3890.6200, L3890.6300, M100.651, L3890.6005 ####[facility] [address] [place], [address] Basophils/100 WBC (Bld) 0.4 % Normal 0-1 [facility] Comment on above: Performed By: #### L 100.0100, L500.2500, L3100.0300, BTSPAT, L3890.6200, L3890.6300, M100.651, L3890.6005 ####[facility] [address] [place], [address] Eosinophils/100 WBC (Bld) 1.6 % Normal 0-5 [facility] Comment on above: Performed By: #### L 100.0100, L500.2500, L3100.0300, BTSPAT, L3890.6200, L3890.6300, M100.651, L3890.6005 ####[facility] [address] [place], [address] Erythrocyte distribution width (RBC) [Ratio] 15.3 % High 11.6-14.6 [facility] Comment on above: Performed By: #### L 100.0100, L500.2500, L3100.0300, BTSPAT, L3890.6200, L3890.6300, M100.651, L3890.6005 ####[facility] [address] [place], [address] Hematocrit (Bld) [Volume fraction] 39.2 % Low 40-54 [facility] Comment on above: Performed By: #### L 100.0100, L500.2500, L3100.0300, BTSPAT, L3890.6200, L3890.6300, M100.651, L3890.6005 ####[facility] [address] [place], [address] Hemoglobin (Bld) [Mass/Vol] 13.4 g/dL Normal 13.0-16.5 [facility] Comment on above: Performed By: #### L 100.0100, L500.2500, L3100.0300, BTSPAT, L3890.6200, L3890.6300, M100.651, L3890.6005 ####[facility] [address] [place], [address] IG% 1.200 High 0.0-0.9 [facility] Comment on above: Result Comment: IG% - Immature Granulocytes (promyelocytes, myelocytes andmetamyelocytes) > 1% indicates that a LEFT SHIFT is Present. Performed By: #### L 100.0100, L500.2500, L3100.0300, BTSPAT, L3890.6200, L3890.6300, M100.651, L3890.6005 ####[facility] [address] [place], [address] Lymphocytes/100 WBC (Bld) 18.0 % Low 19-41 [facility] Comment on above: Performed By: #### L 100.0100, L500.2500, L3100.0300, BTSPAT, L3890.6200, L3890.6300, M100.651, L3890.6005 ####[facility] [address] [place], [address] MCH (RBC) [Entitic mass] 30.9 pg Normal 27.0-32.0 [facility] Comment on above: Performed By: #### L 100.0100, L500.2500, L3100.0300, BTSPAT, L3890.6200, L3890.6300, M100.651, L3890.6005 ####[facility] [address] [place], [address] MCHC (RBC) [Mass/Vol] 34.2 g/dL Normal 32-36 [facility] Comment on above: Performed By: #### L 100.0100, L500.2500, L3100.0300, BTSPAT, L3890.6200, L3890.6300, M100.651, L3890.6005 ####[facility] [address] [place], [address] MCV (RBC) [Entitic vol] 90.3 fL Normal 80-94 [facility] Comment on above: Performed By: #### L 100.0100, L500.2500, L3100.0300, BTSPAT, L3890.6200, L3890.6300, M100.651, L3890.6005 ####[facility] [address] [place], [address] Monocytes/100 WBC (Bld) 7.6 % Normal 0-10 [facility] Comment on above: Performed By: #### L 100.0100, L500.2500, L3100.0300, BTSPAT, L3890.6200, L3890.6300, M100.651, L3890.6005 ####[facility] [address] [place], [address] Neutrophils/100 WBC (Bld) 71.2 % High 47-70 [facility] Comment on above: Performed By: #### L 100.0100, L500.2500, L3100.0300, BTSPAT, L3890.6200, L3890.6300, M100.651, L3890.6005 ####[facility] [address] [place], [address] Nucleated RBC (Bld) [#/Vol] 0 10*3/uL Normal 0-5 [facility] Comment on above: Performed By: #### L 100.0100, L500.2500, L3100.0300, BTSPAT, L3890.6200, L3890.6300, M100.651, L3890.6005 ####[facility] [address] [place], [address] Platelet mean volume (Bld) [Entitic vol] 9.6 fL Normal 6.2-12.0 [facility] Comment on above: Performed By: #### L 100.0100, L500.2500, L3100.0300, BTSPAT, L3890.6200, L3890.6300, M100.651, L3890.6005 ####[facility] [address] [place], [address] Platelets (Bld) [#/Vol] 247 10*3/uL Normal 150-450 [facility] Comment on above: Performed By: #### L 100.0100, L500.2500, L3100.0300, BTSPAT, L3890.6200, L3890.6300, M100.651, L3890.6005 ####[facility] [address] [place], [address] RBC (Bld) [#/Vol] 4.34 10*6/uL Low 4.6-6.2 [facility] Comment on above: Performed By: #### L 100.0100, L500.2500, L3100.0300, BTSPAT, L3890.6200, L3890.6300, M100.651, L3890.6005 ####[facility] [address] [place], [place], [phone] RDW SD 49.8 fl High 35.1-43.9 [facility] Comment on above: Performed By: #### L 100.0100, L500.2500, L3100.0300, BTSPAT, L3890.6200, L3890.6300, M100.651, L3890.6005 ####[facility] [address] [place], [place], [phone] WBC (Bld) [#/Vol] 12.1 10*3/uL High 4.4-11.0 [facility] Comment on above: Performed By: #### L 100.0100, L500.2500, L3100.0300, BTSPAT, L3890.6200, L3890.6300, M100.651, L3890.6005 ####[facility] [address] [place], [place], [address] CNOVon 06-12-2024 OV [facility] ----- SHELTON KAY ([id number]) 1945 M Date Time Provider Department 06/12/24 10:00 AM [facility] During your visit today, we recorded the following information about you: Pulse Respiration Blood pressure 72/minute 20/minute 120/60 Ruth Miranda APRN.CNP 06/12/2024 1:39 PM Signed This is a 78 year old male who presents today with: Patient presents with: Pre-Op Exam HISTORY OF PRESENT ILLNESS: Shelton Kay is a 78 year old male. Patient presents with: Pre-Op Exam Here in the office for preop clearance. Will be having lumbar laminectomy L4-L5, with Dr. Pool at [facility] On June 20, 2024. Will be getting labs and EKG at [facility] today. Pain has been severe, pain radiating [...] A-fib: Following with cardiology, Dr. Hanna at [facility]. Taking Eliquis 5 mg twice [...] cause unspecified Arthritis Atherosclerotic heart disease of [place] coronary artery without angina pectoris Atrial fibrillation [...] ACETBLR/PROX FEM PROSTC AGRFT/ALGRFT 04/2012 Dr. Wood> [facility]. ARTHRP KNE CONDYLEANDPLATU MEDIALANDLAT COMPARTMENTS Right COLONOSCOPY [...] HISTORY OF N/A 12/20/2022 EPS with Ablation, [facility] PAST SURGICAL HISTORY OF Right 12/26/2023 [...] daily. f (more content not included)... Normal [facility] HIV - WCHon 06-12-2024 HIV Non-Reactive Normal Nonreactive [facility] Comment on above: Order Comment: Reaso n for Exam: PAT Performed By: #### L 100.0100, L500.2500, L3100.0300, BTSPAT, L3890.6200, L3890.6300, M100.651, L3890.6005 ####[facility] [address] [place], [address] Hepatitis B Surface Antibody on 06-12-2024 HEP B Surf Ab Non-Reactive Normal [facility] Comment on above: Order Comment: Reaso n for Exam: PAT Result Comment: Non Reactive: Inconsistent with immunity less than <10 mIU/mL Reactive: Consistent with immunity greater than or equal to 10 mIU/mL Performed By: #### L 100.0100, L500.2500, L3100.0300, BTSPAT, L3890.6200, L3890.6300, M100.651, L3890.6005 ####[facility] [address] [place], [address] Hepatitis C Antibodyon 06-12 Hepatitis C AB Non-Reactive Normal Nonreactive [facility] Comment on above: Order Comment: Reaso n for Exam: PAT Result Comment: Non Reactive: < 0.8 Equivocal: >/= 0.8 to < 1.0 Reactive: >/= 1.0The CDC requires that a reactive/equivocal HCV antibodyresult be sent out for confirmation. HCV Quant by PCRtesting. Performed By: #### L 100.0100, L500.2500, L3100.0300, BTSPAT, L3890.6200, L3890.6300, M100.651, L3890.6005 ####[facility] [address] [place], [address] Magnesiumon 06-12-2024 Magnesium [Mass/Vol] 3.4 mg/dL High 1.6-2.6 [facility] Comment on above: Performed By: #### L 501.5200 ####[facility] [address] [place], [address] Type AND Screen - PAT ONLYon 06-12-2024 Ab SCREEN GEL Negative Normal [facility] Comment on above: Order Comment: Reaso n for Laboratory Test [id number] LAMINECTOMY Performed By: #### L 100.0100, L500.2500, L3100.0300, BTSPAT, L3890.6200, L3890.6300, M100.651, L3890.6005 ####[facility] [address] [place], [address] CNPNon [facility] ----- SHELTON KAY ([id number]) 1945 M Date Time Provider Department 06/07/24 FEDERICO VIGIL [facility] During your visit today, we recorded the following information about you: Yasmeen Oliveros MA 06/07/2024 2:23 PM Addendum Type of form: Medical Clearance for surgery from [facility] for Lumbar Laminectomy (L4-L5) on 06/20/24. Form received via fax When form is completed, Fax form to [phone] Form has been forwarded to Physician Desk: YON Munoz Mark D, MD 06/08/2024 5:10 PM Signed He needs appt in the next few days to complete this. His last routine check was in January. Surgery scheduled for Jun 20. 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 PAD (peripheral artery disease) (HCC) [I73.9] 05/01/2019 Atrial fibrillation (HCC) [I48.91] 08/30/2022 Ischemic cardiomyopathy [I25.5] Status post catheter ablation of atrial fibrill*12/21/2022 Paroxysmal atrial fibrillation (HCC) [I48.0] 03/28/2023 Status post ablation of atrial flutter [Z98.890*03/28/2023 Dyspnea [R06.00] 03/29/2023 Coronary artery disease involving [place] gates*05/19/2023 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] 02/03/2023 Diagnosed: 05/19/2023 History of arthritis [Z87.39] 05/19/2023 Former smoker [Z87.891] 05/19/2023 Anemia [D64.9] 05/19/2023 Dysphagia [R13.10] 05/20/2023 History of colonic polyps [Z86.0100] 05/20/2023 Cardiomyopathy, unspecified type (HCC) [I42.9] 06/22/2023 Preop examination [Z01.818] 12/19/2023 S/P carotid endarterectomy [Z98.890] 12/26/2023 Encounter Status:Closed by MAGALI DIAZ on 06/11/24 [facility] Sp[facility] Min 4 Viewson 05-19 L/S Spine Min 4 Views Normal [facility] Orthopedic Visit Reporton Orthopedic Visit Report Normal [facility] CNOVon 05-30-2024 CNOV Office Visit ([facility] ) ----- SHELTON KAY ([id number]) 1945 M Date Time Provider Department 05/30/24 2:40 PM [facility] [place] During your visit today, we recorded the following information about you: Pulse Respiration Blood pressure Weight 75/minute 16/minute 102/68 80.7 kg Ruth Miranda APRN.THRESHING MACHINE OPERATOR 05/30/2024 4:35 PM Signed This is a 78 year old male who presents today with: Patient presents with: Acute Visit: Low back pain HISTORY OF PRESENT ILLNESS: Shelton Kay is a 78 year old male. Patient [...] cause unspecified Arthritis Atherosclerotic heart disease of [place] coronary artery without angina pectoris Atrial fibrillation [...] ACETBLR/PROX FEM PROSTC AGRFT/ALGRFT 04/2012 Dr. Wood> [facility]. ARTHRP KNE CONDYLEANDPLATU MEDIALANDLAT COMPARTMENTS Right COLONOSCOPY [...] HISTORY OF N/A 12/20/2022 EPS with Ablation, [facility] PAST SURGICAL HISTORY OF Right 12/26/2023 [...] Artery Dis (more content not included)... Normal [facility] Spine Lumbar (Routine)on Spine Lumbar (Routine) Normal [facility] CNOVon 05-24-2024 OV Office Visit ([facility] ) ----- SHELTON KAY ([id number]) 1945 M Date Time Provider Department 05/24/24 9:20 AM [facility] During your visit today, we recorded the following information about you: Temperature Pulse Respiration Blood pressure 97.6 degrees 76/minute 16/minute 128/72 Weight 79.6 kg Ruth Miranda APRN.CNP 05/24/2024 9:13 AM Addendum Start Doxycyline, take with food, hold vitamins while taking antibiotic Start prednisone 20 mg daily for the next 5 days May use Tessalon Perles as needed for cough Stay well hydrated Follow up as needed. Ruth Miranda APRN.CNP 05/24/2024 9:54 AM Signed This is a 78 year old male who presents today with: Patient presents with: Acute Visit: lingering cough and cold HISTORY OF PRESENT ILLNESS: Shelton Kay is a 78 year old male. Patient [...] cause unspecified Arthritis Atherosclerotic heart disease of [place] coronary artery without angina pectoris Atrial fibrillation [...] ACETBLR/PROX FEM PROSTC AGRFT/ALGRFT 04/2012 Dr. Wood> [facility] ARTHRP KNE CONDYLEANDPLATU MEDIALANDLAT COMPARTMENTS Right [...] HISTORY OF N/A 12/20/2022 EPS with Ablation, [facility] PAST SURGICAL HISTORY OF Right 12/26/2023 [...] Cancer Mother (more content not included)... [facility] Lumbar spine 3 Viewson * * [...] abdominal aorta. _ DIVISION OF RADIOLOGY Provider, [facility] - 03/04/2024 * * *Final Report* [...] lumbar spine, progressed since the previous study. Cloth Shrinking Tester: SIA Transcribe Date/Time: Mar 04 2024 7:39P Dictated by : KINJAL GALEAS MD This examination was interpreted and the report reviewed and electronically signed by: KINJAL GALEAS MD on Mar 04 2024 7:40PM EST [facility] XR Lumbar spine 3 ViewsOrder ed By: Ccf Provider on 03-04-2024 [facility] XR Lumbar spine 3 Viewson Radiology Study observation (narrative) [facility] CNPNon 01-27-2024 CNPN Telephone (AGVASACC) ----- SHELTON KAY ([id number]) 1945 M Date Time Provider Department 01/27/24 PHI ARREGUIN [facility] During your visit today, we recorded the following information about you: Vel Patel MA 01/27/2024 3:35 PM Signed Left detailed message regarding future appt [facility] 02/27/24 10:00am [facility]. 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] 06/28/2011 Gastroesophageal reflux disease [K21.9] 04/27/2017 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 PAD (peripheral artery disease) (HCC) [I73.9] 05/01/2019 Atrial fibrillation (HCC) [I48.91] 08/30/2022 Ischemic cardiomyopathy [I25.5] Status post catheter ablation of atrial fibrill*12/21/2022 Paroxysmal atrial fibrillation (HCC) [I48.0] 03/28/2023 Status post ablation of atrial flutter [Z98.890*03/28/2023 Dyspnea [R06.00] 03/29/2023 Coronary artery disease involving [place] gates*05/19/2023 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] 02/03/2023 History of arthritis [Z87.39] 05/19/2023 Former smoker [Z87.891] 05/19/2023 Anemia [D64.9] 05/19/2023 Dysphagia [R13.10] 05/20/2023 History of colonic polyps [Z86.010] 05/20/2023 Cardiomyopathy, unspecified type (HCC) [I42.9] 06/22/2023 Preop examination [Z01.818] 12/19/2023 S/P carotid endarterectomy [Z98.890] 12/26/2023 Encounter Status:Closed by EDGAR PATEL on 01/27/24 [facility] CNOVon 01-26-2024 CNOV Office Visit (TOM ANG) ----- SHELTON KAY ([id number]) 1945 M Date Time Provider Department 01/26/24 9:00 AM PHI ARREGUIN During your visit today, we recorded the following information about you: Pulse Respiration Blood pressure Weight 64/minute 16/minute 130/70 77.1 kg Height 1.778 m Phi Arreguin MD 01/26/2024 9:17 AM Signed Shelton Kay is a 78 year old male who [...] FOLLOW UP: No follow-ups on file. Phi Arreguin MD Referring Provider: FEDERICO VIGIL [[id number]] Allergies As of Date: 01/26/2024 Noted Allergy Reaction PLAQUENIL (HYDROXYCHLOROQUINE) 01/20/2024 9 - Itching SPIRONOLACTONE 02/03/2023 14 - Other: See Comments Comments: Dizziness and severe headaches INDOCIN (INDOMETHACIN SODIUM) 05/05/2005 6 - Diarrhea MOBIC (MELOXICAM) 08/16/2014 6 - Diarrhea Date Reviewed: 01/26/2024 Reviewed by: Phi Arreguin MD - Fully Assessed Reason for Visit: Post Op [174] Cmt: 12/26/23 Rt CEA Primary Visit Diagnosis:Amaurosis fugax of right eye [G45.3] Other Visit Diagnoses:Bilateral extracranial carotid artery stenosis [I65.23] History of right-sided carotid endarterectomy [Z98.890] Order(s):US CAROTID BILATERAL [[id number]] Order #: [id number] FUTURE Prescriptions as of 01/26/2024 - lisinopril [...] once d (more content not included)... Normal [facility] 01-13-2024 [facility] Telephone (AGLadies Who LaunchACC) ----- SHELTON KAY ([id number]) 1945 M Date Time Provider Department 01/13/24 PHI ARREGUIN During your visit today, we recorded the following information about you: Delmy Spear LPN 01/13/2024 4:11 PM Signed Ry called back stating Shelton's B/P is higher than it usual is. She said this morning it was 186/69 AND 160/60 prior to taking his medications. I told her to call her custom home installer or PCP for blood pressure management. I also let her know I did let Dr. Arreguin know about his B/P AND the firm lump area on his neck AND she agreed- just to keep an eye on it as we discussed earlier. Ry voiced understanding. 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] 06/28/2011 Gastroesophageal reflux disease [K21.9] 04/27/2017 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 PAD (peripheral artery disease) (HCC) [I73.9] 05/01/2019 Atrial fibrillation (HCC) [I48.91] 08/30/2022 Ischemic cardiomyopathy [I25.5] Status post catheter ablation of atrial fibrill*12/21/2022 Paroxysmal atrial fibrillation (HCC) [I48.0] 03/28/2023 Status post ablation of atrial flutter [Z98.890*03/28/2023 Dyspnea [R06.00] 03/29/2023 Coronary artery disease involving [place] gates*05/19/2023 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] 02/03/2023 History of arthritis [Z87.39] 05/19/2023 Former smoker [Z87.891] 05/19/2023 Anemia [D64.9] 05/19/2023 Dysphagia [R13.10] 05/20/2023 History of colonic polyps [Z86.010] 05/20/2023 Cardiomyopathy, unspecified type (HCC) [I42.9] 06/22/2023 Preop examination [Z01.818] 12/19/2023 S/P carotid endarterectomy [Z98.890] 12/26/2023 Encounter Status:Closed by DELMY SPEAR on 01/13/24 [facility] CNPN Telephone (AGVASACC) ----- SHELTON KAY ([id number]) 1945 M Date Time Provider Department 01/13/24 PHI ARREGUIN During your visit today, we recorded the following information about you: Delmy Spear LPN 01/13/2024 1:21 PM Signed Ry called [...] Shelton has post op appt with Dr. Arreguin 01/26/24. 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] 06/28/2011 Gastroesophageal reflux disease [K21.9] 04/27/2017 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 PAD (peripheral artery disease) (HCC) [I73.9] 05/01/2019 Atrial fibrillation (HCC) [I48.91] 08/30/2022 Ischemic cardiomyopathy [I25.5] Status post catheter ablation of atrial fibrill*12/21/2022 Paroxysmal atrial fibrillation (HCC) [I48.0] 03/28/2023 Status post ablation of atrial flutter [Z98.890*03/28/2023 Dyspnea [R06.00] 03/29/2023 Coronary artery disease involving [place]*05/19/2023 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] 02/03/2023 History of arthritis [Z87.39] 05/19/2023 Former smoker [Z87.891] 05/19/2023 Anemia [D64.9] 05/19/2023 Dysphagia [R13.10] 05/20/2023 History of colonic polyps [Z86.010] 05/20/2023 Cardiomyopathy, unspecified type (HCC) [I42.9] 06/22/2023 Preop examination [Z01.818] 12/19/2023 S/P carotid endarterectomy [Z98.890] 12/26/2023 Encounter Status:Closed by DELMY SPEAR on 01/13/24 [facility] CNOValjeo 01-04-2024 CNOV Office Visit (AGCARD POB) ----- SHELTON KAY ([id number]) 1945 M Date Time Provider Department 01/04/24 3:00 PM TIMOTHY WALKER AGCARDPODevorah During your visit today, we recorded the following information about you: Pulse Blood pressure Weight Height 68/minute 132/59 78 kg 1.778 m Timothy Walker MD 01/04/2024 4:26 PM Addendum PRIMARY CARE PHYSICIAN: Federico Vigil [address] [place] [address] Patient Care Team: Federico Vigil MD as PCP - General (Family Medicine) Provider, MD Agustin as Food And Drug Inspector CHIEF COMPLAINT: Paroxysmal atrial fibrillation HISTORY OF PRESENT ILLNESS: Mr. Kay is a 78 year old male who [...] cause unspecified Arthritis Atherosclerotic heart disease of [place] coronary artery without angina pectoris Atrial fibrillation [...] ACETBLR/PROX FEM PROSTC AGRFT/ALGRFT 04/2012 Dr. Wood> [facility]. ARTHRP KNE CONDYLEANDPLATU MEDIALANDLAT COMPARTMENTS Right COLONOSCOPY FLX DX W/COLLJ SPEC WHEN PFRMD 05/[address] Mejia COLONOSCOPY SCREENING 05/20/2023 COLONOSCOPY W/BIOPSY SINGLE/MULTIPLE 08/24/2006 EGD 12/01/2020 ESOPHAGOGASTRODUODENOSCOP Y TRANSORAL DIAGNOSTIC 05/2023 EYE SURGERY HX JOINT REPLACEMENT HX LEFT HEART CATH,PERCUTANEOUS 10/06/2022 OPEN REPAIR OF ROTATOR CUFF ACUTE 10/03/2008 Rotator cuff repair-right PAST SURGICAL HISTORY OF righ (more content not included)... Normal [facility] Ivette 01-04-2024 NAEL Telephone (DAVE) ----- SHELTON KAY ([id number]) 1945 M Date Time Provider Department 01/04/24 PHI ARREGUIN During your visit today, we recorded the following information about you: Keila Lucas LPN 01/04/2024 11:54 AM Signed Spouse, Ry, calling in and left message on Nurse's Line that patient is experiencing a lot of swelling in his neck. Spouse asking is this normal? Recommendations? Keila Lucas LPN January 04, 2024 11:54 AM Elena Watkins APRN.LIZET 01/04/2024 12:20 PM Signed Swelling is quite [...] continue to monitor for now. Elena Watkins APRN.Keila Hall LPN 01/04/2024 4:16 PM Signed Attempted to contact patient however no answer. This Nurse left a voice message requesting a return call, providing our phone number. Keila Lucas LPN January 04, 2024 4:16 PM Keila Lucas LPN 01/05/2024 3:35 PM Signed This Nurse [...] the last few days compared to the "squishiness" of skin/tissue. This Nurse provided [facility] phone number to send a picture. Patient asking if Tramadol can be refilled since he is still having pain? Pharmacy: RENAE Lucas LPN January 05, 2024 3:29 PM Elena Watkins APRN.LIZET 01/05/2024 4:10 PM Signed Photo received AND reviewed. * The above image(s) of the NECK was/were taken on 01/05/24 by the patient, for use in clinical documentation purposes only using an encrypted, [facility] approved device. All efforts were made to [...] activity was identified. 01/05/2024 by Elena Watkins APRN.Elena Garcia APRN.Keila Hall LPN 01/06/2024 11:03 AM Signed Notified patient per below. Keila Lucas LPN January 06, 2024 11:03 AM Allergies [...] empty s (more content not included)... Normal [facility] ANES POSTPROC EVALon 024 ANES POSTPROC EVAL HNO ID: [id number] Author: KIERA DIAZ MD Service: Anesthesiology Author Type: Physician Type: Anesthesia Postprocedure Evaluation Filed: 12/27/2023 09:05 Note Text: POST ANESTHESIA EVALUATION NOTE : 1945 Procedure Summary Date: 12/26/23 Room / Location: [place] [address] [place] [address] OR Anesthesia Start: 839 Anesthesia Stop: 1317 Procedure: ENDARTERECTOMY CAROTID ADULT (Right: Neck) Diagnosis: Bilateral extracranial carotid artery stenosis (Bilateral extracranial carotid artery stenosis [I65.23]) Surgeons: Phi Arreguin MD Responsible Provider: Kiera Diaz MD Anesthesia [...] SIGNATURE: Kiera Diaz MD PATIENT NAME: Shelton Kay DATE: December 27, 2023 TIME: 9:05 AM CSN: [id number] Normal [facility] Basic metabolic 2000 panelon 12-27-2023 Anion gap [Moles/Vol] 12 mmol/L Normal 8-15 [facility] Comment on above: Order Comment: Speci men Type: BLOOD SPECIMEN [facility] Address: [address] [place] [address] Performed By: #### 2 4321-2 #### [facility] CLIA [id number] 1 [place] [address] [place] Calcium [Mass/Vol] 8.9 mg/dL Normal 8.5-10.2 [facility] Comment on above: Order Comment: Speci men Type: BLOOD SPECIMEN [facility] Address: [address] [place] [address] Performed By: #### 2 4321-2 #### [facility] CLIA [id number] 1 [place] [address] [place] Chloride [Moles/Vol] 100 mmol/L Normal 98-107 [facility] Comment on above: Order Comment: Speci men Type: BLOOD SPECIMEN [facility] Address: [address] [place] [address] Performed By: #### 2 4321-2 #### [facility] CLIA [id number] 1 [place] [address] [place] CO2 [Moles/Vol] 21 mmol/L Low 22-30 [facility] Comment on above: Order Comment: Speci men Type: BLOOD SPECIMEN [facility] Address: [address] [place] [address] Performed By: #### 2 4321-2 #### [facility] CLIA [id number] 1 [place] [address] [place] Creatinine [Mass/Vol] 0.88 mg/dL Normal 0.73-1.22 [facility] Comment on above: Order Comment: Speci men Type: BLOOD SPECIMEN [facility] Address: [address] [place], [place] [address] Performed By: #### 2 4321-2 #### [facility] CLIA [id number] [address] [place] [address] [place] Creatinine and Glomerular filtration rate.predicted panel (S/P/Bld) 88 mL/min/1.73m??? Normal >=60 [facility] Comment on above: Order Comment: Tiarra jackson Type: BLOOD SPECIMEN [facility] Address: [address] [place] [address] Result Comment: More mated Glomerular Filtration Rate [...] GFR. Performed By: #### 2 4321-2 #### [facility] CLIA [id number] [address] [place] [address] [place] Glucose [Mass/Vol] 141 mg/dL High 74-99 [facility] Comment on above: Order Comment: Tiarra jackson Type: BLOOD SPECIMEN [facility] Address: [address] [place] [address] Result Comment: The [place] [employer] (ADA) provides guidance for cutoff [...] Standards of Medical Care in Diabetes 2016, [place] [employer]. Diabetes Care. 2016.39(Suppl 1). Performed By: #### 2 4321-2 #### [facility] CLIA [id number] [address] [place] [address] [place] Potassium [Moles/Vol] 4.0 mmol/L Normal 3.7-5.1 [facility] Comment on above: Order Comment: Speci men Type: BLOOD SPECIMEN [facility] Address: [address] [place] [address] Performed By: #### 2 4321-2 #### [facility] CLIA [id number] [address] STATES [facility] Sodium [Moles/Vol] 133 mmol/L Low 136-144 [facility] Comment on above: Order Comment: Speci men Type: BLOOD SPECIMEN [facility] Address: [address] [place] [address] Performed By: #### 2 4321-2 #### [facility] CLIA [id number] [address] STATES [facility] Urea nitrogen [Mass/Vol] 15 mg/dL Normal 9-24 [facility] Comment on above: Order Comment: Speci men Type: BLOOD SPECIMEN [facility] Address: [address] [place] [address] Performed By: #### 2 4321-2 #### [facility] CLIA [id number] [address] CBC panel Auto (Bld)on 12-26 Erythrocyte distribution width (RBC) [Ratio] 15.0 % Normal 11.5-15.0 [facility] Comment on above: Order Comment: Speci men Type: BLOOD SPECIMEN [facility] Address: [facility] [place] [address] Performed By: #### 5 8410-2 #### [facility] CLIA [id number] [address] Hematocrit (Bld) [Volume fraction] 34.5 % Low 39.0-51.0 [facility] Comment on above: Order Comment: Speci men Type: BLOOD SPECIMEN [facility] Address: [address] [place] [address] Performed By: #### 5 8410-2 #### [facility] CLIA [id number] [address] OF [facility] Hemoglobin (Bld) [Mass/Vol] 11.3 g/dL Low 13.0-17.0 [facility] Comment on above: Order Comment: Speci men Type: BLOOD SPECIMEN [facility] Address: [address] [place] [address] Performed By: #### 5 8410-2 #### [facility] CLIA [id number] [address] MCH (RBC) [Entitic mass] 31.0 pg Normal 26.0-34.0 [facility] Comment on above: Order Comment: Speci men Type: BLOOD SPECIMEN [facility] Address: [address] [place] [address] Performed By: #### 5 8410-2 #### [facility] CLIA [id number] [address] MCHC (RBC) [Mass/Vol] 32.8 g/dL Normal 30.5-36.0 [facility] Comment on above: Order Comment: Speci men Type: BLOOD SPECIMEN [facility] Address: [address] [place] [address] Performed By: #### 5 8410-2 #### [facility] CLIA [id number] [address] MCV (RBC) [Entitic vol] 94.5 fL Normal 80.0-100.0 [facility] Comment on above: Order Comment: Speci men Type: BLOOD SPECIMEN Order[facility] Address: [address] [place] [address] Performed By: #### 5 8410-2 #### [facility] CLIA [id number] [address] Nucleated RBC (Bld) [#/Vol] 10*3/uL Normal <0.01 [facility] Comment on above: Order Comment: Speci men Type: BLOOD SPECIMEN [facility] Address: [address] [place] [address] Performed By: #### 5 8410-2 #### [facility] CLIA [id number] [address] [place] Platelet mean volume (Bld) [Entitic vol] 9.4 fL Normal 9.0-12.7 [facility] Comment on above: Order Comment: Speci men Type: BLOOD SPECIMEN [facility] Address: [address] [place] [address] Performed By: #### 5 8410-2 #### [facility] CLIA [id number] [address] [place] Platelets (Bld) [#/Vol] 205 10*3/uL Normal 150-400 [facility] Comment on above: Order Comment: Speci men Type: BLOOD SPECIMEN [facility] Address: [address] [place] [address] Performed By: #### 5 8410-2 #### [facility] CLIA [id number] [address] [place] RBC (Bld) [#/Vol] 3.65 10*6/uL Low 4.20-6.00 [facility] Comment on above: Order Comment: Speci men Type: BLOOD SPECIMEN [facility] Address: [address] [place] [address] Performed By: #### 5 8410-2 #### [facility] CLIA [id number] [address] [place] WBC (Bld) [#/Vol] 18.08 10*3/uL High 3.70-11.00 [facility] Comment on above: Order Comment: Speci men Type: BLOOD SPECIMEN [facility] Address: [facility] [place] [address] Performed By: #### 5 8410-2 #### [facility] CLIA [id number] [address] [place] CNDSon 12-27-2023 CNDS HNO ID: [id number] Author: PHI ARREGUIN MD Service: Vascular Surgery Author Type: Physician Eye Surgeon Type: Discharge Summary Filed: 12/27/2023 12:02 Note Text: ----- Attestation signed by Phi Arreguin MD at 12/27/2023 12:02 PM Phi Arreguin MD ----- DISCHARGE SUMMARY PATIENT NAME: Shelton Kay Code Status: Not on file Highest Readmission [...] MEDICAL TEAM: [facility] Doctor: Phi Arreguin MD Primary Care Provider: Federico Vigil MD My Medical Team Members: Treatment Team: Attending Provider: Phi Arreguin MD CONDITION AT DISCHARGE: Stable REASON FOR HOSPITALIZATION: Symptomatic carotid stenosis - right SUMMARY OF HOSPITAL COURSE: Pt presented to [facility] for elective right carotid endarterectomy with extended common carotid endarterectomy performed by Dr. Arreguin on 12/26/2023. No perioperative complications. Patient was [...] you become constipated, you may use any zddo-ckz-iurgxwq treatment such as Milk of Magnesia, Sennakot, Prune Juice, Suppositories, etc. in addition to the stool softener/fiber supplement No alcohol or driving while on pain medication Use acetaminophen (Tylenol) as recommended on the bottle Use the dispensed medication (see prescription) You should use an gizc-jmz-naqyyau stool softener (Docusate sodium) and/or a fiber [...] Patient/Parents to call for appointment?: Scheduled Phi Arreguin MD [phone] 1 [facility] [address] [facility] [address] PCP Requested Referral Additional Provider to Provider Information: Treatment Team: Attending Provider: Phi Arreguin MD Transitions of Care Critical Issues: SPECIALIST FOLLOW-UP: Vascular LABS AND PROCEDURES PENDING AT DISCHARGE: No pending results. FOLLOW-UP APPOINTMENTS ALREADY SCHEDULED WITH A [facility] PROVIDER: Future Appointments Date Time Provider Department Center 01/04/2024 3:00 PM Timothy Walker MD AGCARDPOB AG POB 01/20/2024 9:00 AM Federico Vigil MD FAMPWS [facility] [place] 01/23/2024 8:00 AM LAB [facility] WS MOB LABMOB [place] 01/26/2024 10:30 AM Phi Arreguin MD [facility] 04/23/2024 8:00 AM LAB [facility] WSTR MOB LABMOB [place] 04/23/2024 8:30 AM David Lundberg HEMAWS [place] ALLERGIES Allergen Reactions Spironolactone Other: See Comments Dizziness and severe headaches Indocin [Indomethac* Diarrhea Mobic [Meloxicam] Diarrhea DISCHARGE MEDICATION: Medication List START taking these medications traMADol 50 mg tablet Commo (more content not included)... Normal [facility] ANES PRE-OPon 12-26-2023 ANES PRE-OP HNO ID: [id number] Author: KIERA DIAZ MD Service: Anesthesiology Author Type: Physician Type: Anesthesia Preprocedure Evaluation Filed: 12/26/2023 07:39 Note Text: ANESTHESIOLOGY DAY OF SURGERY NOTE : 1945 Procedure Information Date/Time: 12/26/23829 Procedure: ENDARTERECTOMY CAROTID ADULT (Right: Neck) Location: [place] [address] [place] [address] OR Surgeons: Phi Arreguin MD Estimated body mass index is 24.39 kg/m? as calculated from the following: Height as of 12/20/23: 177.8 cm (5' 10"). Weight as of 12/20/23: 77.1 kg (170 lb). Most recent hematocrit and potassium results: Hematocrit 37.8 12/20/2023 Potassium 4.0 12/20/2023 Relevant Problems CARDIO (+) Atrial fibrillation (HCC) (+) BENIGN HYPERTENSION (+) Carotid stenosis, asymptomatic, bilateral (+) Coronary artery disease involving [place] coronary artery of [place] heart with angina pectoris (HCC) (+) Internal [...] and consent discussed: yes. Patient / Responsible [employer] Party agrees to proceed: yes Patient / Surrogate agrees to blood products: Yes Significant changes in the patient condition since the History and Physical, not otherwise documented in primary service progress note: no. Potential Anesthesia issues that may suggest increased risk of complications or contraindication to planned procedure: none. Vitals Value Taken Time BP 145/66 12/26/23 0731 Pulse 70 12/26/23 0712 Resp 13 12/26/23 0712 Temp 35.9 ?C (96.6 ?F) 12/26/23 0712 SpO2 97 % 12/26/23 0731 Vitals shown include unfiled device data. No [...] SIGNATURE: Kiera Diaz MD PATIENT NAME: Shelton Kay DATE: December 26, 2023 TIME: 7:39 AM CSN: [id number] [facility] BRIEF OP NOTon 12-26-2023 BRIEF OP NOT HNO ID: [id number] Author: PHI ARREGUIN MD Service: Vascular Surgery Author Type: Physician Type: Brief Op Note Filed: 12/26/2023 13:39 Note Text: BRIEF OPERATIVE / PROCEDURE NOTE LOG ID: [id number] SURGERY/PROCEDURE DATE: 12/26/2023 INCISION/PROCEDURE START TIME: 9:24 AM INCISION CLOSE/PROCEDURE END TIME: 12:47 PM SURGEON(S)/PROCEDURALIST( S) AND GLOBAL COMMODITY MANAGER(S): Surgeon(s) and Role: * Phi Arreguin MD - Primary Physician Eye Surgeon: Bertha Segundo PA-C; La Bang PA-C SURGERY/PROCEDURE(S): right carotid endarterectomy with extended common carotid endarterectomy ANESTHESIA: General FINDINGS: good flow post procedure ESTIMATED BLOOD LOSS: per anesthesia SPECIMENS: carotid plaque COMPLICATIONS: None CLOSURE TECHNIQUE: Primary PRE-OP/PRE-PROCEDURE DIAGNOSIS: symptomatic right ICA stenosis POST-OP/POST-PROCEDURE DIAGNOSIS: Same as Preop SIGNATURE: Phi Arreguin MD PATIENT NAME: Shelton Kay DATE: December 26, 2023 TIME: 1:38 PM Normal [facility] CBC panel Auto (Bld)on 12-25 Erythrocyte distribution width (RBC) [Ratio] 15.0 % Normal 11.5-15.0 [facility] Comment on above: Order Comment: Tiarra jackson Type: BLOOD SPECIMEN [facility] Address: [address] [place] [address] Performed By: #### 5 8410-2 #### [facility] CLIA [id number] [address] [place] Hematocrit (Bld) [Volume fraction] 33.8 % Low 39.0-51.0 [facility] Comment on above: Order Comment: Tiarra jackson Type: BLOOD SPECIMEN [facility] Address: [address] [place] [address] Performed By: #### 5 8410-2 #### [facility] CLIA [id number] [address] [place] Hemoglobin (Bld) [Mass/Vol] 11.0 g/dL Low 13.0-17.0 [facility] Comment on above: Order Comment: Tiarra jackson Type: BLOOD SPECIMEN [facility] Address: [address] [place] [address] Performed By: #### 5 8410-2 #### [facility] CLIA [id number] [address] [place] MCH (RBC) [Entitic mass] 31.1 pg Normal 26.0-34.0 [facility] Comment on above: Order Comment: Tiarra jackson Type: BLOOD SPECIMEN [facility] Address: [address] [place] [address] Performed By: #### 5 8410-2 #### [facility] CLIA [id number] [address] MCHC (RBC) [Mass/Vol] 32.5 g/dL Normal 30.5-36.0 [facility] Comment on above: Order Comment: Speci men Type: BLOOD SPECIMEN [facility] Address: [address] [place] [address] Performed By: #### 5 8410-2 #### [facility] CLIA [id number] [address] STATES [facility] MCV (RBC) [Entitic vol] 95.5 fL Normal 80.0-100.0 [facility] Comment on above: Order Comment: Speci men Type: BLOOD SPECIMEN [facility] Address: [address] [place] [address] Performed By: #### 5 8410-2 #### [facility] CLIA [id number] [address] STATES OF [facility] Nucleated RBC (Bld) [#/Vol] 10*3/uL Normal <0.01 [facility] Comment on above: Order Comment: Speci men Type: BLOOD SPECIMEN [facility] Address: [address] [place] [address] Performed By: #### 5 8410-2 #### [facility] CLIA [id number] [address] [place] Platelet mean volume (Bld) [Entitic vol] 9.7 fL Normal 9.0-12.7 [facility] Comment on above: Order Comment: Speci men Type: BLOOD SPECIMEN [facility] Address: [address] [place] [address] Performed By: #### 5 8410-2 #### [facility] CLIA [id number] [address] [place] Platelets (Bld) [#/Vol] 161 10*3/uL Normal 150-400 [facility] Comment on above: Order Comment: Speci men Type: BLOOD SPECIMEN [facility] Address: [address] [place] [address] Performed By: #### 5 8410-2 #### [facility] CLIA [id number] [address] RBC (Bld) [#/Vol] 3.54 10*6/uL Low 4.20-6.00 [facility] Comment on above: Order Comment: Speci men Type: BLOOD SPECIMEN [facility] Address: [address] [place] [address] Performed By: #### 5 8410-2 #### [facility] CLIA [id number] [address] WBC (Bld) [#/Vol] 8.78 10*3/uL Normal 3.70-11.00 [facility] Comment on above: Order Comment: Speci men Type: BLOOD SPECIMEN [facility] Address: [address] [place] [address] Performed By: #### 5 8410-2 #### [facility] CLIA [id number] [address] OPERATIVE NOon 12-26-2023 OPERATIVE NO HNO ID: [id number] Author: PHI ARREGUIN MD Service: Vascular Surgery Author Type: Physician Type: Operative Report Filed: 12/30/2023 13:10 Note Text: [facility] - Operative Report SHELTON KAY : 1945 AGE: 78. SEX: M PATIENT TYPE: I HOSP SVC: ICU LOCATION: [facility] ATTENDING PHYSICIAN: PHI ARREGUIN CSN NUMBER: [id number] DATE OF SURGERY/PROCEDURE: 12/26/2023 INCISION/PROCEDURE START TIME: 9:24 AM INCISION CLOSE/PROCEDURE END TIME: 12:47 PM PREOPERATIVE DIAGNOSIS: Symptomatic right internal carotid artery stenosis, high- grade right common carotid artery stenosis. POSTOPERATIVE DIAGNOSIS: Symptomatic right internal carotid artery stenosis, high- grade right common carotid artery stenosis. SURGEON: Phi Arreguin MD GLOBAL COMMODITY MANAGER: 1. Bertha eSgundo PA-C. She was present and scrubbed for the entirety of the case, no qualified residents were available. 2. La Bang PA-C. She was present and scrubbed for the entirety of the case, no qualified residents were available. SURGERY/PROCEDURE: Right carotid endarterectomy with bovine patch angioplasty. ANESTHESIA: General. INDICATION: The patient was born in 1946. The patient was seen in the office after he was referred by his business initiatives manager for concerns of a right-sided amaurosis. The [...] nerve damage, restenosis, need for secondary procedure, AL, and . In addition, the patient does [...] sterile fashion. Preoperative antibiotics were given. A [facility] approved time-out was performed. The ultrasound [...] of th (more content not included)... Normal [facility] SURGICAL PATHOLOGYon CASE REPORT Normal [facility] Comment on above: Order Comment: Tiarra jackson Type: TISSUE SPECIMENOrdering Facility: [facility] Address: [address] [place] [address] Result Comment: Surg ica Pathology Report Case: [id number] Authorizing Provider: Phi Arreguin MD Collected: 12/26/2023 09:33 AM Ordering Location: [facility] Received: 12/27/2023 08:19 AM Pathologist: Mckenna Goyal MD Specimen: Plaque, RIGHT CAROTID PLAQUE Performed By: #### S ####[facility] [id number] [address] STATES OF [facility] CLINICAL HISTORY Normal [facility] Comment on above: Order Comment: Speci men Type: TISSUE SPECIMENOrdering Facility: [facility] Address: [address] [place] [address] Result Comment: Pre- op diagnosis: Bilateral extracranial carotid artery stenosis [I65.23] Performed By: #### S ####[facility] [id number] [address] FINAL DIAGNOSIS Normal [facility] Comment on above: Order Comment: Speci men Type: TISSUE SPECIMENOrdering Facility: [facility] Address: [address] [place] [address] Result Comment: A. P laque, right carotid, endarterectomy: - Compatible with atherosclerotic plaque. Performed By: #### S ####[facility] [facility]ORYCLIA [id number] [address] FINAL PERFORMING LAB Normal [facility] Comment on above: Order Comment: Speci [facility] Type: TISSUE SPECIMENOrdering Facility: [facility] Address: [address] [place] [address] Result Comment: Diag nostic interpretation performed at [facility], [address] [place] [address] CLIA# [id number] Survey Coordinator: Miller Camilo M.D. Performed By: #### S ####[facility] LABORATORYCLIA [id number] [address] GROSS DESCRIPTION A. Plaque Normal [facility] Comment on above: Order Comment: [facility] Type: TISSUE SPECIMENOrdering Facility: [facility] Address: [address] [place] [address] Result Comment: Rece ived in formalin labeled "right carotid plaque" is a yellow-sheldon calcified tubular structure measuring 5.5 x 0.8 x 0.5 cm. Thrombi and vessel wall are not present. Detention Attendant sections are submitted in A1 following light decalcification Gross examination performed at [facility], [address] [place] [address] CLIA#[id number] OLS December 27, 2023 1:25 PM Performed By: #### S ####[facility]ATORYCLIA [id number] [place] [address] [place] Basic metabolic 2000 panelon 12-20-2023 Anion gap [Moles/Vol] 11 mmol/L Normal 8-15 [facility] Comment on above: Order Comment: Speci men Type: BLOOD SPECIMEN [facility] Address: [address] [place] [address] Performed By: #### 2 4321-2 #### [facility] CLIA [id number] 1 [place] [address] [place] Calcium [Mass/Vol] 9.5 mg/dL Normal 8.5-10.2 [facility] Comment on above: Order Comment: Speci men Type: BLOOD SPECIMEN [facility] Address: [address] [place] [address] Performed By: #### 2 4321-2 #### [facility] CLIA [id number] [address] STATES [place] Chloride [Moles/Vol] 105 mmol/L Normal 98-107 [facility] Comment on above: Order Comment: Speci men Type: BLOOD SPECIMEN [facility] Address: [address] [place] [address] Performed By: #### 2 4321-2 #### [facility] CLIA [id number] [address] STATES [place] CO2 [Moles/Vol] 27 mmol/L Normal 22-30 [facility] Comment on above: Order Comment: Speci men Type: BLOOD SPECIMEN [facility] Address: [address] [place] [address] Performed By: #### 2 4321-2 #### [facility] CLIA [id number] 1 [place] [address] [place] Creatinine [Mass/Vol] 0.99 mg/dL Normal 0.73-1.22 [facility] Comment on above: Order Comment: Speci men Type: BLOOD SPECIMEN [facility] Address: [address] [place] [address] Performed By: #### 2 4321-2 #### [facility] CLIA [id number] [address] [place] [address] [place] Creatinine and Glomerular filtration rate.predicted panel (S/P/Bld) 78 mL/min/1.73m??? Normal >=60 [facility] Comment on above: Order Comment: Tiarra men Type: BLOOD SPECIMEN [facility] Address: [address] [place] [address] Result Comment: More mated Glomerular Filtration Rate [...] GFR. Performed By: #### 2 4321-2 #### [facility] CLIA [id number] [address] [place] [address] [place] Glucose [Mass/Vol] 76 mg/dL Normal 74-99 [facility] Comment on above: Order Comment: Tiarra jackson Type: BLOOD SPECIMEN [facility] Address: [address] [place] [address] Result Comment: The [place] [employer] (ADA) provides guidance for cutoff [...] Standards of Medical Care in Diabetes 2016, [place] [employer]. Diabetes Care. 2016.39(Suppl 1). Performed By: #### 2 4321-2 #### [facility] CLIA [id number] [address] STATES OF [facility] Potassium [Moles/Vol] 4.0 mmol/L Normal 3.7-5.1 [facility] Comment on above: Order Comment: Speci men Type: BLOOD SPECIMEN [facility] Address: [address] [place] [address] Performed By: #### 2 4321-2 #### [facility] CLIA [id number] [address] STATES [place] Sodium [Moles/Vol] 143 mmol/L Normal 136-144 [facility] Comment on above: Order Comment: Speci men Type: BLOOD SPECIMEN [facility] Address: [address] [place] [address] Performed By: #### 2 4321-2 #### [facility] CLIA [id number] [address] STATES [facility] Urea nitrogen [Mass/Vol] 20 mg/dL Normal 9-24 [facility] Comment on above: Order Comment: Speci men Type: BLOOD SPECIMEN [facility] Address: [address] [place] [address] Performed By: #### 2 4321-2 #### [facility] CLIA [id number] [address] CBC panel Auto (Bld)on 12-19 Erythrocyte distribution width (RBC) [Ratio] 15.9 % High 11.5-15.0 [facility] Comment on above: Order Comment: Speci men Type: BLOOD SPECIMEN [facility] Address: [address] [place] [address] Performed By: #### 5 8410-2 #### [facility] CLIA [id number] [address] OF [facility] Hematocrit (Bld) [Volume fraction] 37.8 % Low 39.0-51.0 [facility] Comment on above: Order Comment: Speci men Type: BLOOD SPECIMEN [facility] Address: [address] [place] [address] Performed By: #### 5 8410-2 #### [facility] CLIA [id number] [address] Hemoglobin (Bld) [Mass/Vol] 12.4 g/dL Low 13.0-17.0 [facility] Comment on above: Order Comment: Speci men Type: BLOOD SPECIMEN [facility] Address: [address] [place] [address] Performed By: #### 5 8410-2 #### [facility] CLIA [id number] [address] MCH (RBC) [Entitic mass] 31.0 pg Normal 26.0-34.0 [facility] Comment on above: Order Comment: Speci men Type: BLOOD SPECIMEN [facility] Address: [address] [place] [address] Performed By: #### 5 8410-2 #### [facility] CLIA [id number] [address] MCHC (RBC) [Mass/Vol] 32.8 g/dL Normal 30.5-36.0 [facility] Comment on above: Order Comment: Speci men Type: BLOOD SPECIMEN [facility] Address: [address] [place] [address] Performed By: #### 5 8410-2 #### [facility] CLIA [id number] [address] MCV (RBC) [Entitic vol] 94.5 fL Normal 80.0-100.0 [facility] Comment on above: Order Comment: Speci men Type: BLOOD SPECIMEN [facility] Address: [address] [place] [address] Performed By: #### 5 8410-2 #### [facility] CLIA [id number] [address] Nucleated RBC (Bld) [#/Vol] 10*3/uL Normal <0.01 [facility] Comment on above: Order Comment: Speci men Type: BLOOD SPECIMEN [facility] Address: [address] [place] [address] Performed By: #### 5 8410-2 #### [facility] CLIA [id number] [address] Platelet mean volume (Bld) [Entitic vol] 10.8 fL Normal 9.0-12.7 [facility] Comment on above: Order Comment: Speci men Type: BLOOD SPECIMEN [facility] Address: [address] [place] [address] Performed By: #### 5 8410-2 #### [facility] CLIA [id number] [address] Platelets (Bld) [#/Vol] 221 10*3/uL Normal 150-400 [facility] Comment on above: Order Comment: Speci men Type: BLOOD SPECIMEN [facility] Address: [address] [place] [address] Performed By: #### 5 8410-2 #### [facility] CLIA [id number] [address] RBC (Bld) [#/Vol] 4.00 10*6/uL Low 4.20-6.00 [facility] Comment on above: Order Comment: Speci men Type: BLOOD SPECIMEN [facility] Address: [address] [place] [address] Performed By: #### 5 8410-2 #### [facility] CLIA [id number] [address] [place] WBC (Bld) [#/Vol] 10.60 10*3/uL Normal 3.70-11.00 [facility] Comment on above: Order Comment: Speci men Type: BLOOD SPECIMEN [facility] Address: [address] [place] [address] Performed By: #### 5 8410-2 #### [facility] CLIA [id number] [address] [place] EKGon 12-20-2023 Electrocardiogram Ventricular Rate : 6 0 BPM Atrial Rate : 60 BPM P-R Interval : 188 ms QRS Duration : 118 ms Q-T Interval : 434 ms QTC Calculation(Bazett) : 434 ms Calculated P [place] : 31 degrees Calculated R [place] : -64 degrees Calculated T [place] : 25 degrees SINUS RHYTHM WITH OCCASIONAL PREMATURE VENTRICULAR COMPLEXES LEFT ANTERIOR FASCICULAR BLOCK NONSPECIFIC ST ABNORMALITY ABNORMAL ECG NO PREVIOUS ECGS AVAILABLE Confirmed by MD SALDAÑA KAMALESH ([id number]) on 12/21/2023 8:25:43 AM NAME : SHELTON KAY PID : [id number] : 1945 Gender : Male Race : ORD : Procedure Date : Dec 20 2023 10:32:11 Edit Date : Dec 21 2023 08:25:44 Diagnosis: SINUS RHYTHM WITH OCCASIONAL PREMATURE VENTRICULAR COMPLEXES LEFT ANTERIOR FASCICULAR BLOCK NONSPECIFIC ST ABNORMALITY ABNORMAL ECG NO PREVIOUS ECGS AVAILABLE Confirmed by MD SALDAÑA KAMALESH ([id number]) on 12/21/2023 8:25:43 AM Test Reason : Location : 147 : [facility] Overread By : MD SALDAÑA KAMALESH Edited By : MD SALDAÑA KAMALESH Referred By : ELENA WATKINS Acquired by : HEIDY BERNSTEIN [facility] HISTORY PHYSICALon HISTORY PHYSICAL HNO ID: [id number] Author: HEIDY BERNSTEIN APRN.CNP Service: ? Author Type: Nurse Practitioner Type: H&P Filed: 12/20/2023 11:04 Note Text: HISTORY AND PHYSICAL EXAMINATION SERVICE DATE: 12/20/2023 SERVICE TIME: 11:00 AM PRIMARY CARE PHYSICIAN: Federico Vigil MD Assessment Patient has the following medical conditions which may affect judy-operative course: Carotid stenosis, asymptomatic, bilateral Surgery scheduled with Dr. Arreguin on 12/26/2023 Preop examination Patient has the following medical conditions which may affect judy-operative course addressed in assessment and plan today. Paroxysmal atrial fibrillation (HCC) Ablation 12/2022 Rate controlled with carvedilol Pt taking Eliquis I instructed patient to get preop instructions from surgeon and custom home installer. Managed by Dr. Walker, last OV 06/22/2024 Mixed hyperlipidemia Statin, continue as prescribed Coronary artery disease involving [place] coronary artery of [place] heart with angina pectoris (HCC) S/P PCI [...] the prior echocardiographic exam performed on 08/31/2022 ([place]). Mild improvement in the LV systolic function, [...] take as directed. REASON FOR VISIT: Shelton Kay is a 78 year old male who [...] Artery Disease (more content not included)... Normal [facility] PT panel Coag (PPP)on 2023 INR Coag (PPP) [Relative time] 1.2 {INR} Normal 0.9-1.3 [facility] Comment on above: Order Comment: Speci men Type: BLOOD SPECIMEN [facility] Address: [address] [place], [place] [address] Result Comment: Dea min K Antagonist (VKA) Therapeutic Range: INR 2 to 3 (Target INR of 2.5) Note: For patients treated with VKA drugs, such as warfarin, the [place] [employer] 2012 Guideline recommends [...] to 3.5 (target INR of 3). Foster GH, et al. Chest 2012, 141:7S-47S Era RA, et al. [facility] 2017, 70: 252-289 Performed By: #### 3 4528-0 #### [facility] CLIA [id number] [address] [place] [address] [place] PT Coag (PPP) [Time] 12.3 s Normal <13.1 [facility] Comment on above: Order Comment: Speci men Type: BLOOD SPECIMEN [facility] Address: [address] [place] [address] Performed By: #### 3 4528-0 #### [facility] CLIA [id number] [address] [place] [address] [place] TYPE AND SCREEN,30 DAYon ABO A Normal [facility] Comment on above: Order Comment: Speci men Type: BLOOD SPECIMENOrdering Facility: [facility] Address: [facility] [place] [address] Performed By: #### T SCR30 ####[facility] BLOOD BANKCLIA [id number] [address] [place] HISTORICAL AB SCR STATUS Negative [facility] Comment on above: Order Comment: Speci men Type: BLOOD SPECIMENOrdering Facility: [facility] Address: [address] [place] [address] Performed By: #### T SCR30 ####[facility] BLOOD BANKCLIA [id number] [address] [place] Rh Nom (Bld) Positive Normal [facility] Comment on above: Order Comment: Speci men Type: BLOOD SPECIMENOrdering Facility: [facility] Address: [address] [place] [address] Performed By: #### T SCR30 ####[facility] BLOOD BANKIA [id number] [place] [address] [facility] Ivette 12-09-2023 LIZETN Telephone (AGBolt) ----- SHELTON KAY ([id number]) 1945 M Date Time Provider Department 12/09/23 PHI ARREGUIN [facility] During your visit today, we recorded the following information about you: Elena Watkins APRN.CNP 12/09/2023 9:36 AM Signed Orders signed. Thank you, Elena Watkins APRN.THRESHING MACHINE OPERATOR Allergies As of Date: 12/09/2023 Noted Allergy Reaction INDOCIN (INDOMETHACIN SODIUM) 05/05/2005 6 - Diarrhea MOBIC (MELOXICAM) 08/16/2014 6 - Diarrhea Date Reviewed: 12/08/2023 Reviewed by: Phi Arreguin MD - Fully Assessed Reason for Visit: Schedule Surgery [1330] Primary Visit Diagnosis:Bilateral extracranial carotid artery stenosis [I65.23] Order(s):SURGICAL REQUEST - ELECTIVE (02/2020) [7846420] Order #: [id number]: 1 HANDP FOR SURGERY [Z9514EYY] Order #: [id number] COMPLETE BLOOD COUNT [SQCBC] Order #: [id number] FUTURE BASIC METABOLIC PANEL [SQBMP] Order #: [id number] FUTURE PROTHROMBIN TIME [SQPT] Order #: [id number] FUTURE ECG COMPLETE [ECG01] Order #: [id number] FUTURE TYPE AND SCREEN,30 DAY [EFKFEN90] Order #: [id number] FUTURE Prescriptions as of 12/09/2023 - aspirin [...] by other means [Z96.*10/01/2010 Other physical therapy [JXU3165] 10/01/2010 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] 06/28/2011 Gastroesophageal reflux disease [K21.9] 04/27/2017 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 PAD (peripheral artery disease) (HCC) [I73.9] 05/01/2019 Atrial fibrillation (HCC) [I48.91] 08/30/2022 Ischemic cardiomyopathy [I25.5] Status post catheter ablation of atrial fibrill*12/21/2022 Paroxysmal atrial fibrillation (HCC) [I48.0] 03/28/2023 Status post ablation of atrial flutter [Z98.890*03/28/2023 Dyspnea [R06.00] 03/29/2023 Coronary artery disease involving [place] gates*05/19/2023 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] 02/03/2023 History of arthritis [Z87.39] 05/19/2023 Former smoker [Z87.891] 05/19/2023 Anemia [D64.9] 05/19/2023 Dysphagia [R13.10] 05/20/2023 History of colonic polyps [Z86.010] 05/20/2023 Cardiomyopathy, unspecified type (HCC) [I42.9] 06/22/2023 Encounter Status:Closed by ELENA WATKINS on 12/09/23 [facility] Jadiel 12-08-2023 CNROSY Office Visit (TOM ANG) ----- SHELTON KAY ([id number]) 1945 M Date Time Provider Department 12/08/23 3:30 PM PHI ARREGUIN During your visit today, we recorded the following information about you: Pulse Respiration Blood pressure Weight 68/minute 16/minute 120/70 75.8 kg Height 1.778 m Phi Arreguin MD 12/08/2023 4:53 PM Signed Shelton Kay is a 78 year old male presents [...] CEA. I offered to send him to [facility] to discuss potential for TFCAS if he [...] not limited to bleeding, infection, re-stenosis, hematoma, AL, and . The pt understands that delay in treatment once it is indicated could result in stroke. PATIENT'S CURRENT TREATMENT: Aspirin, eliquis Statin: Yes Patient does not have a history of a CVA. Patient has not had previous carotid surgery RISK FACTORS: HISTORIES: PAST MEDICAL HISTORY Diagnosis Date Allergic rhinitis, cause unspecified Arthritis Atherosclerotic heart disease of [place] coronary artery without angina pectoris Atrial fibrillation [...] post cat (more content not included)... Normal [facility] CNPNon [facility] SHELTON KAY ([id number]) 1945 M Date Time Provider Department 11/25/23 PHI ARREGUIN [facility] During your visit today, we recorded the following information about you: Keila Lucas LPN 11/25/2023 12:02 PM Signed Spouse, Courtney, [...] help patient they will do it. Keila Lucas LPN November 25, 2023 12:02 PM Keila Lucas LPN 11/25/2023 3:53 PM Signed This Nurse spoke to Dr. Arreguin in regard to prior Telephone Encounter. Dr. Arreguin states that these test do show different things however if co-pay for CT scan on Tuesday is high it would be up to the patient to not get it. Patient has an upcoming appointment to discuss CT scan results. This Nurse returned call to patient and advised per above. Patient states he will get test scheduled on 11/28/2023. 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] 06/28/2011 Gastroesophageal reflux disease [K21.9] 04/27/2017 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 PAD (peripheral artery disease) (HCC) [I73.9] 05/01/2019 Atrial fibrillation (HCC) [I48.91] 08/30/2022 Ischemic cardiomyopathy [I25.5] Status post catheter ablation of atrial fibrill*12/21/2022 Paroxysmal atrial fibrillation (HCC) [I48.0] 03/28/2023 Status post ablation of atrial flutter [Z98.890*03/28/2023 Dyspnea [R06.00] 03/29/2023 Coronary artery disease involving [place] gates*05/19/2023 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 Posterior circulation: configuration of the right QUILL STRIPPER with hypoplastic right P1 segment. The nondominant right vertebral artery terminates predominantly as the right PICA with absent versus markedly hypoplastic distal V4 segment to the vertebrobasilar junction. Distal vertebral arteries, basilar trunk and engineering consultant are normal in caliber. No vessel cut off, filling defect, significant focal narrowing, or evidence of aneurysm. Opacified dural venous sinuses and major deep and superficial draining veins are patent. Card Punching Machine Operator (topogram) images: No additional findings. DIVISION OF RADIOLOGY [facility]23 * * *Final Report* * * DATE OF EXAM: Nov 24 2023 10:23AM [facility] 0024 - CTA NECK W IVCON / [...] segment. Posterior circulation: configuration of the right QUILL STRIPPER with hypoplastic right P1 segment. The nondominant right vertebral artery terminates predominantly as the right PICA with absent versus markedly hypoplastic distal V4 segment to the vertebrobasilar junction. Distal vertebral arteries, basilar trunk and engineering consultant are normal in caliber. No vessel cut off, filling defect, significant focal narrowing, or evidence of aneurysm. Opacified dural venous sinuses and major deep and superficial draining veins are patent. Card Punching Machine Operator (topogram) images: No additional findings. IMPRESSION IMPRESSION: [...] by computer aided detection software: Not Performed. Cloth Shrinking Tester: [facility] Transcribe Date/Time: Nov 24 2023 12:04P Dictated by : KARINA JARRELL MD This examination was interpreted and the report reviewed and electronically signed by: KARINA JARRELL MD on Nov 24 2023 12:10PM [facility] CTA Head Arteries W contrast Johnson 11-24-2023 * * *Final Report* * * DATE OF EXAM: Nov 24 2023 10:23AM [facility] 0022 - CTA HEAD W IVCON / [...] segment. Posterior circulation: configuration of the right QUILL STRIPPER with hypoplastic right P1 segment. The nondominant right vertebral artery terminates predominantly as the right PICA with absent versus markedly hypoplastic distal V4 segment to the vertebrobasilar junction. Distal vertebral arteries, basilar trunk and engineering consultant are normal in caliber. No vessel cut off, filling defect, significant focal narrowing, or evidence of aneurysm. Opacified dural venous sinuses and major deep and superficial draining veins are patent. Card Punching Machine Operator (topogram) images: No additional findings. DIVISION OF RADIOLOGY Provider, [facility] - 11/24/2023 * * *Final Report* * * DATE OF EXAM: Nov 24 2023 10:23AM [facility] 0022 - CTA HEAD W IVCON / [...] segment. Posterior circulation: configuration of the right QUILL STRIPPER with hypoplastic right P1 segment. The nondominant right vertebral artery terminates predominantly as the right PICA with absent versus markedly hypoplastic distal V4 segment to the vertebrobasilar junction. Distal vertebral arteries, basilar trunk and engineering consultant are normal in caliber. No vessel cut off, filling defect, significant focal narrowing, or evidence of aneurysm. Opacified dural venous sinuses and major deep and superficial draining veins are patent. Card Punching Machine Operator (topogram) images: No additional findings. IMPRESSION IMPRESSION: [...] by computer aided detection software: Not Performed. Cloth Shrinking Tester: [facility] Transcribe Date/Time: Nov 24 2023 12:04P Dictated by : KARINA JARRELL MD This examination was interpreted and the report reviewed and electronically signed by: KARINA JARRELL MD on Nov 24 2023 12:10PM EST [facility] No Panel Informationon 11-23 IMPRESSION: Diffuse eccentric [...] by computer aided detection software: Not Performed. Cloth Shrinking Tester: [facility] Transcribe Date/Time: Nov 24 2023 12:04P Dictated by : KARINA JARRELL MD This examination was interpreted and the report reviewed and electronically signed by: KARINA JARRELL MD on Nov 24 2023 12:10PM [facility] DIVISION OF RADIOLOGY Radiology Study observation (narrative) [facility] No Panel InformationOrdered By: Ccf Provider on 11-24-2023 [facility] CNOVon 11-17-2023 CNOV Office Visit (AGVASA ) ----- SHELTON KAY ([id number]) 1945 M Date Time Provider Department 11/17[facility]23 4:00 [facility] your visit today, we recorded the following information about you: Pulse Blood pressure Weight Height 68/minute 130/70 75.3 kg 1.765 m Phi Arreguin MD 11/25/2023 3:45 PM Signed Carotid stenosisMaranibal Kay is a 78 year old male presents [...] plaques in his eye. Pt is prior [facility] pt who was seen by me 02/2022 [...] cause unspecified Arthritis Atherosclerotic heart disease of [place] coronary artery without angina pectoris Atrial fibrillation [...] ACETBLR/PROX FEM PROSTC AGRFT/ALGRFT 04/2012 Dr. Wood> [facility]. ARTHRP KNE CONDYLEANDPLATU MEDIALANDLAT COMPARTMENTS Right COLONOSCOPY [...] HISTORY OF N/A 12/20/2022 EPS with Ablation, [facility] TONSILLECTOMY HX TONSILLECTOMY PRIMARY/SECONDARY Tonsillectomy and [...] 81mg chew (more content not included)... Normal [facility] CNPNon 11-11-2023 CNPN Telephone (AGVASACC) ----- SHELTON KAY ([id number]) 1945 M Date Time Provider Department 11/11/23 ELENA WATKINS During your visit today, we recorded the following information about you: Elena Watkins APRN.LIZET 11/11/2023 3:41 PM Signed Reviewed pt's CTA report - unfortunately CTA neck "non-diagnostic". I called and spoke with pt AND [...] week to discuss recent symptoms with Dr. Arreguin (can even review scan, even though report [...] with PCP regarding recent labs. 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] 06/28/2011 Gastroesophageal reflux disease [K21.9] 04/27/2017 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 PAD (peripheral artery disease) (HCC) [I73.9] 05/01/2019 Atrial fibrillation (HCC) [I48.91] 08/30/2022 Ischemic cardiomyopathy [I25.5] Status post catheter ablation of atrial fibrill*12/21/2022 Paroxysmal atrial fibrillation (HCC) [I48.0] 03/28/2023 Status post ablation of atrial flutter [Z98.890*03/28/2023 Dyspnea [R06.00] 03/29/2023 Coronary artery disease involving [place]*05/19/2023 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 Normal [facility] CREATININE, POC (MR SABRINA)on Creatinine [Mass/Vol] 1.00 mg/dL 0.60 - 1.30 mg/dL [facility] eGFR (POCT) mL/min/1.73 m2 [facility] Meter ID:[id number] Location:[facility], [address] [place] [address], [address] [place] [address] POINT OF CARE [facility] CT Neck W contrast Johnson 04-2 * * *Final Report* * * DATE OF EXAM: Nov 11 2023 1:53PM [facility] 0024 - CTA NECK W IVCON / [...] ACAs and MCAs are overall patent. Bilateral engineering consultant and basilar artery is grossly patent. Card Punching Machine Operator (topogram) images: No additional findings. [facility] Provider, [facility] Janusz [facility] - 11/11/2023 * * *Final Report* * * DATE OF EXAM: Nov 11 2023 1:53PM [facility] 0024 - CTA NECK W IVCON / [...] ACAs and MCAs are overall patent. Bilateral engineering consultant and basilar artery is grossly patent. Card Punching Machine Operator (topogram) images: No additional findings. IMPRESSION IMPRESSION: Poor contrast opacification of the arterial circulation. CTA neck is nondiagnostic. Extensive atherosclerosis in bilateral common carotid arteries and proximal internal carotid arteries. Repeat CTA neck may be considered. Bilateral ACAs and MCAs are overall patent. Bilateral engineering consultant are grossly patent. Cloth Shrinking Tester: SIA Transcribe Date/Time: Nov 11 2023 1:58P Dictated by : RIKA CHÁVEZ MD This examination was interpreted and the report reviewed and electronically signed by: RIKA CHÁVEZ MD on Nov 11 2023 2:15PM [facility] CTA HEAD W IVCONon 4 CTA HEAD W IVCON * * *Final Report* * * DATE OF EXAM: Nov 11 2023 1:53PM [facility] 0022 - CTA HEAD W IVCON / [...] ACAs and MCAs are overall patent. Bilateral engineering consultant and basilar artery is grossly patent. Card Punching Machine Operator (topogram) images: No additional findings. IMPRESSION: Poor contrast opacification of the arterial circulation. CTA neck is nondiagnostic. Extensive atherosclerosis in bilateral common carotid arteries and proximal internal carotid arteries. Repeat CTA neck may be considered. Bilateral ACAs and MCAs are overall patent. Bilateral engineering consultant are grossly patent. Cloth Shrinking Tester: PSCB Transcribe Date/Time: Nov 11 2023 1:58P Dictated by : RIKA CHÁVEZ MD This examination was interpreted and the report reviewed and electronically signed by: RIKA CHÁVEZ MD on Nov 11 2023 2:15PM EST [id number] Normal [facility] CTA Head Arteries W contrast Johnson 11-11-2023 * * *Final Report* * * DATE OF EXAM: Nov 11 2023 1:53PM [facility] 0022 - CTA HEAD W IVCON / [...] ACAs and MCAs are overall patent. Bilateral engineering consultant and basilar artery is grossly patent. Card Punching Machine Operator (topogram) images: No additional findings. [facility] Provider, [facility] Jan[facility] - 11/11/2023 * * *Final Report* * * DATE OF EXAM: Nov 11 2023 1:53PM [facility] 0022 - CTA HEAD W IVCON / [...] ACAs and MCAs are overall patent. Bilateral engineering consultant and basilar artery is grossly patent. Card Punching Machine Operator (topogram) images: No additional findings. IMPRESSION IMPRESSION: Poor contrast opacification of the arterial circulation. CTA neck is nondiagnostic. Extensive atherosclerosis in bilateral common carotid arteries and proximal internal carotid arteries. Repeat CTA neck may be considered. Bilateral ACAs and MCAs are overall patent. Bilateral engineering consultant are grossly patent. Cloth Shrinking Tester: SIA Transcribe Date/Time: Nov 11 2023 1:58P Dictated by : RIKA CHÁVEZ MD This examination was interpreted and the report reviewed and electronically signed by: RIKA CHÁVEZ MD on Nov 11 2023 2:15PM [facility] CTA NECK W IVCONon CTA NECK W IVCON * * *Final Report* * * DATE OF EXAM: Nov 11 2023 1:53PM [facility] 0024 - CTA NECK W IVCON / [...] ACAs and MCAs are overall patent. Bilateral engineering consultant and basilar artery is grossly patent. Card Punching Machine Operator (topogram) images: No additional findings. IMPRESSION: Poor contrast opacification of the arterial circulation. CTA neck is nondiagnostic. Extensive atherosclerosis in bilateral common carotid arteries and proximal internal carotid arteries. Repeat CTA neck may be considered. Bilateral ACAs and MCAs are overall patent. Bilateral engineering consultant are grossly patent. Cloth Shrinking Tester: PSCB Transcribe Date/Time: Nov 11 2023 1:58P Dictated by : RIKA CHÁVEZ MD This examination was interpreted and the report reviewed and electronically signed by: RIKA CHÁVEZ MD on Nov 11 2023 2:15PM EST [id number] Normal [facility] No Panel Informationon 11-10 IMPRESSION: Poor contrast opacification of the arterial circulation. CTA neck is nondiagnostic. Extensive atherosclerosis in bilateral common carotid arteries and proximal internal carotid arteries. Repeat CTA neck may be considered. Bilateral ACAs and MCAs are overall patent. Bilateral engineering consultant are grossly patent. Cloth Shrinking Tester: [facility] Transcribe Date/Time: Nov 11 2023 1:58P Dictated by : RIKA CHÁVEZ MD This examination was interpreted and the report reviewed and electronically signed by: RIKA CHÁVEZ MD on Nov 11 2023 2:15PM EST [facility] Radiology Study observation (narrative) [facility] No Panel InformationOrdered By: Ccf Provider on 11-11-2023 [facility] C-REACTIVE PROTEINon 024 CRP [Mass/Vol] 1.0 mg/dL High NINF - 0.9 mg/dL [facility] CNPNon 11-10-2023 CNPN Telephone (AGVASACC) ----- SHELTON KAY ([id number]) 1945 M Date Time Provider Department 11/10/23 PHI ARREGUIN [facility] During your visit today, we recorded the following information about you: Keila uLcas LPN 11/10/2023 4:55 PM Signed Spouse, Courtney, calling in and left message on Nurse's Line that patient recently has had symptoms of vision loss. PCP is Ordering blood work and ultrasound. Spouse is asking from vascular standpoint, how do they proceed? Keila Lucas LPN November 10, 2023 4:55 PM Elena Watkins APRN.THRESHING MACHINE OPERATOR 11/11/2023 8:26 AM Signed Well, [...] scheduled if that's what he'd prefer. Thanks, NITA Shearer Carolyn, LPN 11/11/2023 9:10 AM Signed This Nurse [...] number. As this Nurse was reporting to CONTROL OPERATOR at the same time spouse, Ry, returned call and CONTROL OPERATOR spoke to spouse. Keila Lucas LPN November 11, 2023 9:07 AM Elena [...] with ortho not associated with [facility] in [place]) scheduled on Tuesday. Pt believes MRI should [...] Will proceed with scheduling CTA head/neck. Elena Watkins, BOARD CERTIFIED ARTS THERAPIST.THRESHING MACHINE OPERATOR Allergies As of Date: 11/10/2023 Noted Allergy Reaction INDOCIN (INDOMETHACIN SODIUM) 05/05/2005 6 - Diarrhea MOBIC (MELOXICAM) 08/16/2014 6 - Diarrhea Date Reviewed: 10/27/2023 Reviewed by: David Lundberg - Fully Assessed Reason for Visit: Patient Update [1234] Cmt: Vision loss Primary Visit Diagnosis:Carotid stenosis, asymptomatic, bilateral [I65.23] Other Visit Diagnosis:Amaurosis fugax of right eye [G45.3] Order(s):CTA HEAD W IVCON [[id number]] Order #: [id number] FUTURE iv contrast (will be provided with [...] EachRfl: 0 CREATININE BLD [SQCRET] Order #: [id number] FUTURE CTA NECK W IVCON [[id number]] Order #: [id number] FUTURE Prescriptions as of 11/11/2023 - iv contrast (will be provided with radiolo (more content not included)... Normal [facility] CRP [Mass/Vol]on 11-10-2023 Interpretation and review of laboratory results Abnormal [facility] ESR Westergren method (Bld) [Velocity]on 11-10-2023 ESR (Bld) [Velocity] 42 mm/h [facility] Interpretation and review of laboratory results Abnormal [facility] Absolute lymphocyte countOrd ered By: Radha Seo on 09-23-2023 Lymphocytes Auto (Unsp spec) [#/Vol] 1.68 10*3/uL 0.83-4.51 [facility] Automated lymphocyte count a s percentage of total leukocytesOrdered By: Radha Seo on 09-23-2023 Lymphocytes/100 WBC Auto (Unsp spec) 15.4 % 19-41 [facility] Basophil percentageOrdered B y: Radha Seo on 09-23-2023 Basophils/100 WBC (Bld) 0.0 % 0-1 [facility] Bilirubin [Mass/Vol] 1.40 mg/dL 0.20-1.00 [facility] Comment on above: For patients on eltr ombopag therapy, use of Dimension [place] TBIL is not recommended. Chloride [Moles/Vol] 102 mmol/L 98-107 [facility] Eosinophils/100 WBC (Bld) 0.5 % 0-5 [facility] Glucose [Mass/Vol] 120 mg/dL 74-106 [facility] Comment on above: Fasting Glucose resu lt from 100 to 125 mg/dL suggests IMPAIRED HOMEOSTASIS per A.D.A. criteria. Hemoglobin (Bld) [Mass/Vol] 12.0 g/dL 13.0-16.5 [facility] Monocytes/100 WBC (Bld) 6.6 % 0-10 [facility] Neutrophils (Bld) [#/Vol] 8.4 10*3/uL 2.0-7.7 [facility] Neutrophils/100 WBC (Bld) 76.8 % 47-70 [facility] Potassium [Moles/Vol] 4.7 mmol/L 3.5-5.1 [facility] Protein [Mass/Vol] 6.2 g/dL 6.4-8.2 [facility] Sodium [Moles/Vol] 134 mmol/L 136-145 [facility] WBC (Bld) [#/Vol] 10.9 10*3/uL 4.4-11.0 [facility] Determination of erythrocyte mean corpuscular volume (MCV)Ordered By: Radha Seo on 09-23-2023 MCV (RBC) [Entitic vol] 88.6 fL 80-94 [facility] Erythrocyte distribution wid th ratioOrdered By: [facility] Gabbi on 09-23-2023 Erythrocyte distribution width (RBC) [Ratio] 18.5 % 11.6-14.6 [facility] Erythrocyte distribution wid th standard deviationOrdered By: [facility] Gabbi on 09-23-2023 Erythrocyte distribution width (RBC) [Entitic vol] 59.6 fL 35.1-43.9 [facility] Hematocrit Auto (Bld) [Volum e fraction]Ordered By: Radhayon Seo on 09-23-2023 Hematocrit (Bld) [Volume fraction] 38.0 % 40-54 [facility] Immature granulocytes/100 WB C Auto (Bld)Ordered By: [facility] Gabbi on 09-23-2023 Immature granulocytes/100 WBC (Bld) 0.700 % 0.0-0.9 [facility] Comment on above: IG% - Immature Granu locytes (promyelocytes, myelocytes and metamyelocytes) > 1% indicates that a LEFT SHIFT is Present. Laboratory - Chemistry and C hemistry - challengeOrdered By: Radhayon Seo on 09-23-2023 Albumin/Globulin [Mass ratio] 1.2 {ratio} 0.9-2.4 [facility] ALP [Catalytic activity/Vol] 81 U/L 45-117 [facility] ALT [Catalytic activity/Vol] 73 U/L 16-61 [facility] CO2 [Moles/Vol] 27.0 mmol/L 21.0-32.0 [facility] Globulin (S) [Mass/Vol] 2.8 g/dL 2.2-4.2 [facility] Urea nitrogen/Creatinine [Mass ratio] 24.4 mg/mg 10-20 [facility] Laboratory - Hematology and Cell countsOrdered By: Radha Seo on 09-23-2023 MCH (RBC) [Entitic mass] 28.0 pg 27.0-32.0 [facility] MCHC (RBC) [Mass/Vol] 31.6 g/dL 32-36 [facility] Nucleated RBC/100 WBC (Bld) [Ratio] 0 % 0-5 [facility] Platelet mean volume (Bld) [Entitic vol] 10.1 fL 6.2-12.0 [facility] Platelets (Bld) [#/Vol] 171 10*3/uL 150-450 [facility] No Panel InformationOrdered By: Radha Seo on 09-23-2023 Estimated GFR (MDRD) Amer 100 mL/min >60 [facility] Comment on above: GFR Calc Estimated GFR (MDRD) Non-Af Amer 82 mL/min >60 [facility] Comment on above: Non- GFR Calc RBC Auto (Bld) [#/Vol]Ordere d By: Radha Seo on 09-23-2023 RBC (Bld) [#/Vol] 4.29 10*6/uL 4.6-6.2 [facility] Serum or plasma calcium mikel urement (mass/volume)Ordered By: Radha Seo on 09-23-2023 Calcium [Mass/Vol] 8.3 mg/dL 8.5-10.1 [facility] Serum or plasma creatinine m easurement (mass/volume)Ordered By: Radha Seo on 09-23-2023 Creatinine [Mass/Vol] 0.94 mg/dL 0.70-1.30 [facility] Comment on above: The validity of the calculated GFR & GFRAA in patients over 70 years has not been determined. Clinical correlation is essential. Serum or plasma urea nitroge n measurement (mass/volume)Ordered By: Radha Seo on 09-23-2023 Urea nitrogen [Mass/Vol] 23 mg/dL 7-18 [facility] Serum or plasma uric acid me asurement (mass/volume)Ordered By: Radha Seo on 09-23-2023 Urate [Mass/Vol] 4.5 mg/dL 3.5-7.2 [facility] Comment on above: The drugs N-Acetylcy steine and Metamizole may falsely depress this assay. Thin prep Papanicolaou smear with manual screeningOrdered By: Radha Seo on 09-23-2023 Thin prep Papanicolaou smear with manual screening 3.4 g/dL 3.2-5.0 [facility] Thin prep Papanicolaou smear with manual screening 36 U/L 15-37 [facility] Thin prep Papanicolaou smear with manual screening 5 5-15 [facility] Absolute lymphocyte countOrd ered By: Abram Mckeon on 09-13-2023 Lymphocytes Auto (Unsp spec) [#/Vol] 1.33 10*3/uL 0.83-4.51 [facility] Automated lymphocyte count a s percentage of total leukocytesOrdered By: Abram Mckeon on 09-13-2023 Lymphocytes/100 WBC Auto (Unsp spec) 9.3 % 19-41 [facility] Basophil percentageOrdered B y: Abram Mckeon on 09-13-2023 Basophils/100 WBC (Bld) 0.1 % 0-1 [facility] Bilirubin [Mass/Vol] 1.00 mg/dL 0.20-1.00 [facility] Comment on above: For patients on eltr ombopag therapy, use of Dim[place] TBIL is not recommended. Chloride [Moles/Vol] 105 mmol/L 98-107 [facility] Eosinophils/100 WBC (Bld) 0.2 % 0-5 [facility] Glucose [Mass/Vol] 126 mg/dL 74-106 [facility] Comment on above: Fasting Glucose resu lt greater than or equal to 126 mg/dL suggests DIABETES MELLITUS per A.D.A. criteria. Hemoglobin (Bld) [Mass/Vol] 10.7 g/dL 13.0-16.5 [facility] Monocytes/100 WBC (Bld) 8.3 % 0-10 [facility] Neutrophils (Bld) [#/Vol] 11.6 10*3/uL 2.0-7.7 [facility] Neutrophils/100 WBC (Bld) 81.3 % 47-70 [facility] Potassium [Moles/Vol] 4.3 mmol/L 3.5-5.1 [facility] Protein [Mass/Vol] 7.2 g/dL 6.4-8.2 [facility] Sodium [Moles/Vol] 137 mmol/L 136-145 [facility] WBC (Bld) [#/Vol] 14.3 10*3/uL 4.4-11.0 [facility] Determination of erythrocyte mean corpuscular volume (MCV)Ordered By: Abram Mckeon on 09-13-2023 MCV (RBC) [Entitic vol] 87.0 fL 80-94 [facility] Erythrocyte distribution wid th ratioOrdered By: Abram Mckeon on 09-13-2023 Erythrocyte distribution width (RBC) [Ratio] 17.2 % 11.6-14.6 [facility] Erythrocyte distribution wid th standard deviationOrdered By: Abram Mckeon on 09-13-2023 Erythrocyte distribution width (RBC) [Entitic vol] 54.4 fL 35.1-43.9 [facility] Hematocrit Auto (Bld) [Volum e fraction]Ordered By: Abram Mckeon on 09-13-2023 Hematocrit (Bld) [Volume fraction] 34.7 % 40-54 [facility] Immature granulocytes/100 WB C Auto (Bld)Ordered By: Abram Mckeon on 09-13-2023 Immature granulocytes/100 WBC (Bld) 0.800 % 0.0-0.9 [facility] Comment on above: IG% - Immature Granu locytes (promyelocytes, myelocytes and metamyelocytes) > 1% indicates that a LEFT SHIFT is Present. Laboratory - Chemistry and C hemistry - challengeOrdered By: Abram Mckeon on 09-13-2023 Albumin/Globulin [Mass ratio] 1.1 {ratio} 0.9-2.4 [facility] ALP [Catalytic activity/Vol] 112 U/L 45-117 [facility] ALT [Catalytic activity/Vol] 46 U/L 16-61 [facility] CO2 [Moles/Vol] 27.0 mmol/L 21.0-32.0 [facility] Globulin (S) [Mass/Vol] 3.4 g/dL 2.2-4.2 [facility] Natriuretic peptide B (Bld) [Mass/Vol] 1241.4 pg/mL 0-100 [facility] Urea nitrogen/Creatinine [Mass ratio] 24.8 mg/mg 10-20 [facility] Laboratory - Hematology and Cell countsOrdered By: Abram Mckeon on 09-13-2023 MCH (RBC) [Entitic mass] 26.8 pg 27.0-32.0 [facility] MCHC (RBC) [Mass/Vol] 30.8 g/dL 32-36 [facility] Nucleated RBC/100 WBC (Bld) [Ratio] 0 % 0-5 [facility] Platelet mean volume (Bld) [Entitic vol] 10.8 fL 6.2-12.0 [facility] Platelets (Bld) [#/Vol] 197 10*3/uL 150-450 [facility] No Panel InformationOrdered By: Abram Mckeon on 09-13-2023 Estimated GFR (MDRD) Amer 81 mL/min >60 [facility] Comment on above: GFR Calc Estimated GFR (MDRD) Non-Af Amer 67 mL/min >60 [facility] Comment on above: Non- GFR Calc RBC Auto (Bld) [#/Vol]Ordere d By: Abram Mckeon on 09-13-2023 RBC (Bld) [#/Vol] 3.99 10*6/uL 4.6-6.2 [facility] Serum or plasma calcium mikel urement (mass/volume)Ordered By: Abram Mckeon on 09-13-2023 Calcium [Mass/Vol] 9.0 mg/dL 8.5-10.1 [facility] Serum or plasma creatinine m easurement (mass/volume)Ordered By: Abram Mckeon on 09-13-2023 Creatinine [Mass/Vol] 1.13 mg/dL 0.70-1.30 [facility] Comment on above: The validity of the calculated GFR & GFRAA in patients over 70 years has not been determined. Clinical correlation is essential. Serum or plasma urea nitroge n measurement (mass/volume)Ordered By: Abram Mckeon on 09-13-2023 Urea nitrogen [Mass/Vol] 28 mg/dL 7-18 [facility] Thin prep Papanicolaou smear with manual screeningOrdered By: Abram Mckeon on 09-13-2023 Thin prep Papanicolaou smear with manual screening 3.8 g/dL 3.2-5.0 [facility] Thin prep Papanicolaou smear with manual screening 28 U/L 15-37 [facility] Thin prep Papanicolaou smear with manual screening 5 5-15 [facility] XR Knee - left AP and Latera l and obliqueon 09-02-2023 IMPRESSION: No acute bony finding. Minimal degenerative findings Cloth Shrinking Tester: SIA Transcribe Date/Time: Sep 02 2023 9:04A Dictated by : FEDERICO BRYANT MD This examination was interpreted and the report reviewed and electronically signed by: FEDERICO BRYANT MD on Sep 02 2023 9:06AM [facility] DIVISION OF RADIOLOGY * * *Final Report* [...] knee joint replacement DIVISION OF RADIOLOGY Provider, [facility]z [facility] - 09/02/2023 * * *Final Report* * [...] No acute bony finding. Minimal degenerative findings Cloth Shrinking Tester: SIA Transcribe Date/Time: Sep 02 2023 9:04A Dictated by : FEDERICO BRYANT MD This examination was interpreted and the report reviewed and electronically signed by: FEDERICO BRYANT MD on Sep 02 2023 9:06AM EST [facility] Radiology Study observation (narrative) [facility] XR Knee - left AP and Latera l and obliqueOrdered By: Ccf Provider on 09-02-2023 [facility] COPPER BLOODon 08-23-2023 Copper [Mass/Vol] 142 ug/dL High 70 - 140 ug/dL [facility] FOLATE SERUMon 08-23-2023 Folate [Mass/Vol] >4.7 ng/mL [facility] HAPTOGLOBIN BLDon 08-23-2023 Haptoglobin [Mass/Vol] 219 mg/dL 31 - 238 mg/dL [facility] VITAMIN B12 BLOODon 08-23-19 Cobalamin (Vitamin B12) [Mass/Vol] 486 pg/mL 232 - 1,245 pg/mL [facility] CBC W Auto Differential pane l (Bld)on 08-22-2023 Basophils (Bld) [#/Vol] 0.04 10*3/uL <0.11 k/uL [facility] Basophils/100 WBC (Bld) 0.5 % [facility] Differential cell count method Nom (Bld) Auto [facility] Eosinophils (Bld) [#/Vol] 0.26 10*3/uL <0.46 k/uL [facility] Eosinophils/100 WBC (Bld) 3.3 % [facility] Erythrocyte distribution width (RBC) [Ratio] 16.1 % High 11.5 - 15.0 % [facility] Hematocrit (Bld) [Volume fraction] 33.4 % Low 39.0 - 51.0 % [facility] Hemoglobin (Bld) [Mass/Vol] 10.4 g/dL Low 13.0 - 17.0 g/dL [facility] Immature granulocytes (Bld) [#/Vol] <0.10 k/uL [facility] Immature granulocytes/100 WBC (Bld) 0.3 % [facility] Lymphocytes (Bld) [#/Vol] 1.38 10*3/uL 1.00 - 4.00 k/uL [facility] Lymphocytes/100 WBC (Bld) 17.5 % [facility] MCH (RBC) [Entitic mass] 27.2 pg 26.0 - 34.0 pg [facility] MCHC (RBC) [Mass/Vol] 31.1 g/dL 30.5 - 36.0 g/dL [facility] MCV (RBC) [Entitic vol] 87.4 fL 80.0 - 100.0 fL [facility] Monocytes (Bld) [#/Vol] 0.64 10*3/uL <0.87 k/uL [facility] Monocytes/100 WBC (Bld) 8.1 % [facility] Neutrophils (Bld) [#/Vol] 5.53 10*3/uL 1.45 - 7.50 k/uL [facility] Neutrophils/100 WBC (Bld) 70.3 % [facility] Nucleated RBC (Bld) [#/Vol] <0.01 k/uL [facility] Nucleated RBC/100 WBC (Bld) [Ratio] 0.0 /100 WBC [facility] Platelet mean volume (Bld) [Entitic vol] 10.9 fL 9.0 - 12.7 fL [facility] Platelets (Bld) [#/Vol] 159 10*3/uL 150 - 400 k/uL [facility] RBC (Bld) [#/Vol] 3.82 10*6/uL Low 4.20 - 6.0 0 m/uL [facility] WBC (Bld) [#/Vol] 7.87 10*3/uL 3.70 - 11. 00 k/uL [facility] Comprehensive metabolic 2000 panelon 08-22-2023 Albumin [Mass/Vol] 4.2 g/dL 3.9 - 4.9 g/dL [facility] [facility] ALP [Catalytic activity/Vol] 117 U/L High 38 - 113 U/L [facility] ALT [Catalytic activity/Vol] 14 U/L 10 - 54 U/L [facility] Anion gap [Moles/Vol] 9 mmol/L 9 - 18 mmol/L [facility] AST [Catalytic activity/Vol] 17 U/L 14 - 40 U/L [facility] Bilirubin [Mass/Vol] 1.1 mg/dL 0.2 - 1 .3 mg/dL [facility] Calcium [Mass/Vol] 9.3 mg/dL 8.5 - 10. 2 mg/dL [facility] Chloride [Moles/Vol] 106 mmol/L High 97 - 10 5 mmol/L [facility] CO2 [Moles/Vol] 26 mmol/L 22 - 30 mmol/L [facility] Creatinine [Mass/Vol] 1.21 mg/dL 0.73 - 1.22 mg/dL [facility] Estimated Glomerular Filtration Rate 62 mL/min/1.73m >=60 mL/min/1.73m [facility] Glucose [Mass/Vol] 104 mg/dL High 74 - 99 mg/dL [facility] Potassium [Moles/Vol] 3.8 mmol/L 3.7 - 5.1 mmol/L [facility] Protein [Mass/Vol] 6.8 g/dL 6.3 - 8.0 g/dL [facility] Sodium [Moles/Vol] 141 mmol/L 136 - 144 mmol/L [facility] Urea nitrogen [Mass/Vol] 22 mg/dL 9 - 24 mg/dL [facility] LD LACTATE DEHYDROon 024 LDH [Catalytic activity/Vol] 211 U/L 135 - 225 U/L [facility] RETIC COUNTon 08-22-2023 Reticulocytes (Bld) [#/Vol] 0.60134 10*3/uL 0.018 - 0.100 M/uL [facility] Reticulocytes (Bld) [#/Vol]o n 08-22-2023 Reticulocytes/100 RBC (Bld) 1.7 % 0.4 - 2.0 % [facility] Basophil percentageOrdered B y: Barbara Canada on 08-15-2023 Chloride [Moles/Vol] 113 mmol/L 98-107 [facility] Glucose [Mass/Vol] 119 mg/dL 74-106 [facility] Comment on above: Fasting Glucose resu lt from 100 to 125 mg/dL suggests IMPAIRED HOMEOSTASIS per A.D.A. criteria. Hemoglobin (Bld) [Mass/Vol] 10.1 g/dL 13.0-16.5 [facility] Potassium [Moles/Vol] 3.7 mmol/L 3.5-5.1 [facility] Sodium [Moles/Vol] 143 mmol/L 136-145 [facility] WBC (Bld) [#/Vol] 8.8 10*3/uL 4.4-11.0 [facility] Determination of erythrocyte mean corpuscular volume (MCV)Ordered By: Barbara Canada on 08-15-2023 MCV (RBC) [Entitic vol] 90.3 fL 80-94 [facility] Erythrocyte distribution wid th ratioOrdered By: Barbara Canada on 08-15-2023 Erythrocyte distribution width (RBC) [Ratio] 16.2 % 11.6-14.6 [facility] Erythrocyte distribution wid th standard deviationOrdered By: Barbara Canada on 08-15-2023 Erythrocyte distribution width (RBC) [Entitic vol] 54.0 fL 35.1-43.9 [facility] Hematocrit Auto (Bld) [Volum e fraction]Ordered By: Barbara Canada on 08-15-2023 Hematocrit (Bld) [Volume fraction] 33.6 % 40-54 [facility] Laboratory - Chemistry and C hemistry - challengeOrdered By: Barbara Canada on 08-15-2023 CO2 [Moles/Vol] 27.0 mmol/L 21.0-32.0 [facility] Urea nitrogen/Creatinine [Mass ratio] 16.9 mg/mg 10-20 [facility] Laboratory - Hematology and Cell countsOrdered By: Barbara Canada on 08-15-2023 MCH (RBC) [Entitic mass] 27.2 pg 27.0-32.0 [facility] MCHC (RBC) [Mass/Vol] 30.1 g/dL 32-36 [facility] Platelets (Bld) [#/Vol] 166 10*3/uL 150-450 [facility] No Panel InformationOrdered By: Barbara Canada on 08-15-2023 Estimated GFR (MDRD) Amer 65 mL/min >60 [facility] Comment on above: GFR Calc Estimated GFR (MDRD) Non-Af Amer 54 mL/min >60 [facility] Comment on above: Non- GFR Calc Platelet mean volume Matthias-Ec ker (Bld) [Entitic vol]Ordered By: Barbara Canada on 08-15-2023 Platelet mean volume (Bld) [Entitic vol] 11.1 fL 6.2-12.0 [facility] RBC Auto (Bld) [#/Vol]Ordere d By: Barbara Canada on 08-15-2023 RBC (Bld) [#/Vol] 3.72 10*6/uL 4.6-6.2 [facility] Serum or plasma calcium mikel urement (mass/volume)Ordered By: Barbara Canada on 08-15-2023 Calcium [Mass/Vol] 9.0 mg/dL 8.5-10.1 [facility] Serum or plasma creatinine m easurement (mass/volume)Ordered By: Barbara Canada on 08-15-2023 Creatinine [Mass/Vol] 1.36 mg/dL 0.70-1.30 [facility] Comment on above: The validity of the calculated GFR & GFRAA in patients over 70 years has not been determined. Clinical correlation is essential. Serum or plasma thyroid stim ulating hormone (TSH) measurement (units/volume)Ordered By: Barbara Canada on 08-15-2023 TSH Qn 2.61 uIU/mL 0.358-3.74 [facility] Serum or plasma urea nitroge n measurement (mass/volume)Ordered By: Barbara Canada on 08-15-2023 Urea nitrogen [Mass/Vol] 23 mg/dL 7-18 [facility] Thin prep Papanicolaou smear with manual screeningOrdered By: Barbara Canada on 08-15-2023 Thin prep Papanicolaou smear with manual screening 3 5-15 [facility] CNOVon 06-22-2023 CNOV Office Visit (AGCARD POB) ----- SHELTON AKY ([id number]) 1945 Evon Date Time Provider Department 06/22/23 3:00 PM TIMOTHY WALKER AGCARDPODevorah During your visit today, we recorded the following information about you: Pulse Blood pressure Weight Height 72/minute 108/66 75.8 kg 1.791 m Keiko Santos LPN 06/22/2023 2:50 PM Signed Patient denies any cardiac complaints or symptoms. FREDDY Thurman Faisal, MD 06/22/2023 4:17 PM Signed PRIMARY CARE PHYSICIAN: Federico Vigil [address] [place] [address] Patient Care Team: Federico Vigil MD as [...] per week at the wellness center in [place], under the supervision of an barrel handler. He checks his heart rhythm daily on [...] cause unspecified Arthritis Atherosclerotic heart disease of [place] coronary artery without angina pectoris Atrial fibrillation [...] S/P drug (more content not included)... Normal [facility] No Panel Informationon 05-25 [facility] ANES POSTPROC EVALon 023 ANES POSTPROC EVAL HNO ID: [id number] Author: Mckenna Alcazar MD Service: ? Author Type: Anesthesiologist Type: Anesthesia Postprocedure Evaluation Filed: 05/20/2023 12:53 PM Note Text: POST ANESTHESIA EVALUATION NOTE : 1945 Procedure Summary Date: 05/20/23 Room / Location: [facility] Endoscopy Anesthesia Start: 940 Anesthesia Stop: 1026 Procedures: EGD DIAGNOSTIC COLONOSCOPY SCREENING Diagnosis: Dysphagia, unspecified type History of colonic polyps (Dysphagia) (High risk colon cancer surveillance: Personal history of colonic polyps) Scheduled Providers: Cabrera Mejia MD; Tiarra Cueva APRN.UDAY; Mckenna Alcazar MD Responsible Provider: Mckenna Alcazar [...] SIGNATURE: Mckenna Alcazar MD PATIENT NAME: Shelton Kay DATE: May 20, 2023 TIME: 12:53 PM CSN: [id number] Normal [facility] ANES PRE-OPon 05-20-2023 ANES PRE-OP HNO ID: [id number] Author: Mckenna Alcazar MD Service: ? Author Type: Anesthesiologist Type: Anesthesia Preprocedure Evaluation Filed: 05/20/2023 9:29 AM Note Text: ANESTHESIOLOGY DAY OF SURGERY NOTE : 1945 Procedure Information Date/Time: 05/20/23 1100 Scheduled providers: Cabrera Mejia MD; Tiarra Cueva APRN.[employer]; Mckenna Alcazar MD Procedures: EGD DIAGNOSTIC COLONOSCOPY SCREENING Location: [facility] Endoscopy Estimated body mass index is 24.82 kg/m? as calculated from the following: Height as of this encounter: 177.8 cm (5' 10"). Weight as of this encounter: 78.5 kg (173 lb). Most recent hematocrit and potassium results: Hematocrit 34.4 04/06/2023 Potassium 3.7 12/21/2022 Relevant Problems CARDIO (+) Atrial fibrillation (HCC) (+) BENIGN HYPERTENSION (+) Carotid stenosis, asymptomatic, bilateral (+) Coronary artery disease involving [place] coronary artery of [place] heart with angina pectoris (HCC) (+) Internal [...] and consent discussed: yes. Patient / Responsible [employer] agrees to proceed: yes Patient / Surrogate [...] SIGNATURE: Mckenna Alcazar MD PATIENT NAME: Shelton Kay DATE: May 20, 2023 TIME: 9:29 AM CSN: [id number] Normal [facility] Colonoscopyon 05-20-2023 Colonoscopy [facility] Gastrointestinal Endoscopy Patient Name: Shelton Kay Procedure Date: 05/20/2023 9:35 AM Date of : 1945 Admit Type: Outpatient Age: 77 Room: [facility] Gender: Male Note Status: Finalized Attending MD: [...] for retreatment. Procedure Code(s): --- Professional --- 05715, 53, Colonoscopy, flexible; diagnostic, including collection of specimen(s) by brushing or washing, when performed (separate procedure) Diagnosis Code(s): --- Professional --- Z12.11, Encounter for screening for malignant neoplasm of colon Z86.010, Personal history of colonic polyps Q43.8, Other specified congenital malformations of intestine CPT copyright 2020 [employer]. All rights reserved. The codes documented in this report are preliminary and upon automotive service cashier review may be revised to meet current compliance requirements. Attending Participation: I personally performed the entire procedure. Scope In: 9:55:54 AM Scope Out: 10:13:54 AM MD Cabrera Avila MD 05/20/2023 10:20:13 AM This report has been signed electronically by Cabrera Mejia MD Number of Addenda: 0 Note Initiated On: 05/20/2023 9:35 AM Estimated Blood Loss: Estimated blood loss: none. Normal [facility] HISTORY PHYSICALon HISTORY PHYSICAL HNO ID: [id number] Author: Cabrera Mejia MD Service: General Surgery Author Type: Physician Type: HANDP Filed: 05/20/2023 9:42 AM Note Text: HISTORY AND PHYSICAL Shelton Kay [...] sedation, findings of gastritis. Last colonoscopy in [facility] 09/08/16 with removal of sigmoid polyp, 3 year follow-up recommended. Path report not available in [facility]. Patient's medical history is significant for atrial fibrillation, AVN, cardiomyopathy, coronary stents, carotid stenosis, PAD. He follows with Dr. Vigil in primary care for his chronic medical conditions. PAST MEDICAL HISTORY PAST MEDICAL HISTORY Diagnosis Date Allergic rhinitis, cause unspecified Arthritis Atherosclerotic heart disease of [place] coronary artery without angina pectoris Atrial fibrillation [...] ACETBLR/PROX FEM PROSTC AGRFT/ALGRFT 04/2012 Dr. Wood> [facility]. ARTHRP KNE CONDYLEANDPLATU MEDIALANDLAT COMPARTMENTS Right COLONOSCOPY W/BIOPSY SINGLE/MULTIPLE 08/24/2006 EGD 12/01/2020 EYE SURGERY HX JOINT REPLACEMENT HX LEFT HEART CATH,PERCUTANEOUS 10/06/2022 OPEN REPAIR OF ROTATOR CUFF ACUTE 10/03/2008 Rotator cuff repair-right PAST SURGICAL HISTORY OF right knee scope PAST SURGICAL HISTORY OF cataract both eyes PAST SURGICAL HISTORY OF N/A 12/20/2022 EPS with Ablation, [facility] TONSILLECTOMY HX TONSILLECTOMY PRIMARY/SECONDARY Tonsillectomy and [...] Quit date: (more content not included)... Normal [facility] NURSING PROGon 05-20-2023 NURSING PROG HNO ID: [id number] Author: Luma Armstrong RN Service: ? Author Type: Registered Nurse Type: Nursing Progress Note Filed: 05/20/2023 12:38 PM Note Text: Patient waiting on barrium enema study. Plan to go around 2:30pm. Pt resting with at the bedside at this time. Will continue to monitor. Normal [facility] SURGICAL PATHOLOGYon 023 CASE REPORT Normal [facility] Comment on above: Order Comment: Tiarra jackson Type: TISSUE SPECIMEN Ordering Facility: [facility] Address: [address] [place] [address] Result Comment: Surg [facility] Pathology Report Case: [id number] Authorizing Provider: Cabrera Mejia MD Collected: 05/20/2023 09:52 AM Ordering Location: [facility] Endoscopy Received: 05/20/2023 12:48 PM Pathologist: Butch Ulrich MD Specimens: A) - DUODENUM BIOPSY B) - STOMACH BIOPSY C) - ESOPHAGUS LOWER BIOPSY D) - ESOPHAGUS MID BIOPSY Performed By: #### S #### [facility] CLIA [id number] [address] [place], [place] [address] [address] [place] FINAL DIAGNOSIS Normal [facility] Comment on above: Order Comment: Speci men Type: TISSUE SPECIMEN Ordering Facility: [facility] Address: [address] [place] [address] Result Comment: A. D uodenum, biopsy: -Duodenal mucosa with no diagnostic abnormality. B. Stomach, biopsy: -Gastric antral mucosa with no diagnostic abnormality. C. Esophagus, lower, biopsy: -Squamous epithelium with glycogenic acanthosis. D. Esophagus, mid, biopsy: -Squamous epithelium with glycogenic acanthosis. Performed By: #### S #### [facility] CLIA [id number] [address] [place] [address] STATES [place] [facility] FINAL PERFORMING LAB Normal [facility] Comment on above: Order Comment: Speci men Type: TISSUE SPECIMEN Ordering Facility: [facility] Address: [address] [place] [address] Result Comment: Diag nostic interpretation performed at [facility], [address] [place] [address] CLIA# [id number] Survey Coordinator: Sanchez Ruth M.D. Performed By: #### S #### [facility] CLIA [id number] [address] [place] [address] OF [facility] GROSS DESCRIPTION Normal [facility] Comment on above: Order Comment: Aimeei manuel Type: TISSUE SPECIMEN Ordering Facility: [facility] Address: [address] [place] [address] Result Comment: A. D UODENUM BIOPSY Received [...] 2023 4:08 PM Gross examination performed at [facility], [address] [place] [address] Performed By: #### S #### [facility] CLIA [id number] [address] [place] [address] [place] [address] [place] [facility] Upper GI endoscopyon 023 Upper GI endoscopy [facility] Gastrointestinal Endoscopy Patient Name: Shelton Kay Procedure Date: 05/20/2023 9:49 AM Date of : 1945 Admit Type: Outpatient Age: 77 Room: [facility] Gender: Male Note Status: Finalized Attending MD: [...] PRN for surveillance. - Return to physician investigative assistant in 1 week. Procedure Code(s): --- Professional --- 81598, Esophagogastroduodenoscop y, flexible, transoral; with biopsy, single or multiple Diagnosis Code(s): --- Professional --- K29.70, Gastritis, unspecified, without bleeding R13.10, Dysphagia, unspecified CPT copyright 2020 [employer]. All rights reserved. The codes documented in this report are preliminary and upon automotive service cashier review may be revised to meet current compliance requirements. Attending Participation: I personally performed the entire procedure. Scope In: 9:49:48 AM Scope Out: 9:54:16 AM MD Cabrera Avila MD 05/20/2023 10:17:07 AM This report has been signed electronically by Cabrera Mejia MD Number of Addenda: 0 Note Initiated On: 05/20/2023 9:49 AM Estimated Blood Loss: Estimated blood loss was minimal. Normal [facility] XR COLON ROUTINE DOUBLE CONT [facility] 05-20-2023 XR COLON ROUTINE DOUBLE CONTRAST [...] diverticulitis 3. Sigmoid colon is extremely tortuous Cloth Shrinking Tester: PSCB Transcribe Date/Time: May 20 2023 4:38P Dictated by : ROBERT CHIRINOS DO This examination was interpreted and the report reviewed and electronically signed by: ROBERT CHIRINOS DO on May 20 2023 4:44PM EST [id number] Normal [facility] Absolute lymphocyte countOrd ered By: Cabrera Ngo on 05-10-2023 Lymphocytes Auto (Unsp spec) [#/Vol] 2.74 10*3/uL 0.83-4.51 [facility] Basophil percentageOrdered B y: Cabrera Ngo on 05-10-2023 Basophils/100 WBC (Bld) 0.3 % 0-1 [facility] Bilirubin [Mass/Vol] 0.80 mg/dL 0.20-1.00 [facility] Comment on above: For patients on eltr ombopag therapy, use of Dimension [place] TBIL is not recommended. Chloride [Moles/Vol] 111 mmol/L 98-107 [facility] Eosinophils/100 WBC (Bld) 0.7 % 0-5 [facility] Glucose [Mass/Vol] 129 mg/dL 74-106 [facility] Comment on above: Fasting Glucose resu lt greater than or equal to 126 mg/dL suggests DIABETES MELLITUS per A.D.A. criteria. Neutrophils (Bld) [#/Vol] 8.0 10*3/uL 2.0-7.7 [facility] Neutrophils/100 WBC (Bld) 69.8 % 47-70 [facility] Potassium [Moles/Vol] 3.9 mmol/L 3.5-5.1 [facility] Comment on above: Slight Hemolysis, Re sult may be falsely increased. Protein [Mass/Vol] 7.3 g/dL 6.4-8.2 [facility] Sodium [Moles/Vol] 139 mmol/L 136-145 [facility] WBC (Bld) [#/Vol] 11.5 10*3/uL 4.4-11.0 [facility] Blood erythrocytes count (nu mber/volume)Ordered By: Cabrera Ngo on 05-10-2023 RBC (Bld) [#/Vol] 4.02 10*6/uL 4.6-6.2 [facility] Blood hemoglobin measurement (mass/volume)Ordered By: Cabrera Ngo on 05-10-2023 Hemoglobin (Bld) [Mass/Vol] 11.7 g/dL 13.0-16.5 [facility] Blood lymphocytes/100 leukoc ytesOrdered By: Cabrera Ngo on 05-10-2023 Lymphocytes/100 WBC (Bld) 23.9 % 19-41 [facility] Blood monocytes/100 leukocyt esOrdered By: Cabrera Ngo on 05-10-2023 Monocytes/100 WBC (Bld) 5.0 % 0-10 [facility] Blood platelet mean volumeOr dered By: Cabrera Ngo on 05-10-2023 Platelet mean volume (Bld) [Entitic vol] 11.0 fL 6.2-12.0 [facility] Determination of erythrocyte mean corpuscular volume (MCV)Ordered By: Cabrera Ngo on 05-10-2023 MCV (RBC) [Entitic vol] 91.8 fL 80-94 [facility] Direct bilirubinOrdered By: Cabrera Ngo on 05-10-2023 Bilirubin.direct [Mass/Vol] 0.28 mg/dL 0.00-0.30 [facility] Hematocrit Auto (Bld) [Volum e fraction]Ordered By: Cabrera Ngo on 05-10-2023 Hematocrit (Bld) [Volume fraction] 36.9 % 40-54 [facility] Laboratory - Chemistry and C hemistry - challengeOrdered By: Cabrera Ngo on 05-10-2023 ALP [Catalytic activity/Vol] 94 U/L 45-117 [facility] ALT [Catalytic activity/Vol] 35 U/L 16-61 [facility] CO2 [Moles/Vol] 21.0 mmol/L 21.0-32.0 [facility] Globulin (S) [Mass/Vol] 3.6 g/dL 2.2-4.2 [facility] Lipase [Catalytic activity/Vol] 42 U/L 13-75 [facility] Comment on above: Please note:LIPASE r evised reference range effective 22. New Lipase methodology. Expected to produce lower values than the previous assay method. NEW Reference Range: 13 - 75 U/L Urea nitrogen/Creatinine [Mass ratio] 15.3 mg/mg 10-20 [facility] Laboratory - Hematology and Cell countsOrdered By: Cabrera Ngo on 05-10-2023 Erythrocyte distribution width (RBC) [Entitic vol] 46.9 fL 35.1-43.9 [facility] Erythrocyte distribution width (RBC) [Ratio] 13.8 % 11.6-14.6 [facility] Immature granulocytes/100 WBC (Bld) 0.300 % 0.0-0.9 [facility] Comment on above: IG% - Immature Granu locytes (promyelocytes, myelocytes and metamyelocytes) > 1% indicates that a LEFT SHIFT is Present. MCH (RBC) [Entitic mass] 29.1 pg 27.0-32.0 [facility] Nucleated RBC/100 WBC (Bld) [Ratio] 0 % 0-5 [facility] MCHC Auto (RBC) [Mass/Vol]Or dered By: Cabrera Ngo on 05-10-2023 MCHC (RBC) [Mass/Vol] 31.7 g/dL 32-36 [facility] No Panel InformationOrdered By: Cabrera Ngo on 05-10-2023 Estimated Creatinine Clearance Calc 46.62 ml/min [facility] Estimated GFR (MDRD) Amer 65 mL/min >60 [facility] Comment on above: GFR Calc Estimated GFR (MDRD) Non-Af Amer 54 mL/min >60 [facility] Comment on above: Non- GFR Calc Platelets bldOrdered By: Delonte Ngo on 05-10-2023 Platelets (Bld) [#/Vol] 286 10*3/uL 150-450 [facility] Serum or plasma albumin mikel urement (mass/volume)Ordered By: Cabrera Ngo on 05-10-2023 Albumin [Mass/Vol] 3.7 g/dL 3.2-5.0 [facility] Serum or plasma calcium mikel urement (mass/volume)Ordered By: Cabrera Ngo on 05-10-2023 Calcium [Mass/Vol] 9.1 mg/dL 8.5-10.1 [facility] Serum or plasma creatinine m easurement (mass/volume)Ordered By: Cabrera Ngo on 05-10-2023 Creatinine [Mass/Vol] 1.37 mg/dL 0.70-1.30 [facility] Comment on above: The validity of the calculated GFR & GFRAA in patients over 70 years has not been determined. Clinical correlation is essential. Serum or plasma urea nitroge n measurement (mass/volume)Ordered By: Cabrera Ngo on 05-10-2023 Urea nitrogen [Mass/Vol] 21 mg/dL 7-18 [facility] Thin prep Papanicolaou smear with manual screeningOrdered By: Cabrera Ngo on 05-10-2023 Thin prep Papanicolaou smear with manual screening 42 U/L 15 [facility] Comment on above: Slight Hemolysis, Re sult may be falsely increased. Thin prep Papanicolaou smear with manual screening 7 - [facility] No Panel Informationon 04-13 [facility] Absolute lymphocyte countOrd ered By: Radha Seo on 04-01-2023 Lymphocytes Auto (Unsp spec) [#/Vol] 1.77 10*3/uL 0.83-4.51 [facility] Basophil percentageOrdered B y: Radha Seo on 04-01-2023 Basophils/100 WBC (Bld) 0.6 % 0-1 [facility] Bilirubin [Mass/Vol] 0.50 mg/dL 0.20-1.00 [facility] Comment on above: For patients on eltr ombopag therapy, use of Dimension [place] TBIL is not recommended. Chloride [Moles/Vol] 112 mmol/L 98-107 [facility] Eosinophils/100 WBC (Bld) 0.8 % 0-5 [facility] Glucose [Mass/Vol] 92 mg/dL 74-106 [facility] Neutrophils (Bld) [#/Vol] 4.5 10*3/uL 2.0-7.7 [facility] Neutrophils/100 WBC (Bld) 63.1 % 47-70 [facility] Potassium [Moles/Vol] 3.9 mmol/L 3.5-5.1 [facility] Protein [Mass/Vol] 6.6 g/dL 6.4-8.2 [facility] Sodium [Moles/Vol] 140 mmol/L 136-145 [facility] WBC (Bld) [#/Vol] 7.2 10*3/uL 4.4-11.0 [facility] Blood erythrocytes count (nu mber/volume)Ordered By: Radha Seo on 04-01-2023 RBC (Bld) [#/Vol] 3.59 10*6/uL 4.6-6.2 [facility] Blood hemoglobin measurement (mass/volume)Ordered By: Radha Seo on 04-01-2023 Hemoglobin (Bld) [Mass/Vol] 10.6 g/dL 13.0-16.5 [facility] Blood lymphocytes/100 leukoc ytesOrdered By: Radha Seo on 04-01-2023 Lymphocytes/100 WBC (Bld) 24.8 % 19-41 [facility] Blood monocytes/100 leukocyt esOrdered By: Radha Seo on 04-01-2023 Monocytes/100 WBC (Bld) 9.4 % 0-10 [facility] Blood platelet mean volumeOr dered By: Radha Seo on 04-01-2023 Platelet mean volume (Bld) [Entitic vol] 10.3 fL 6.2-12.0 [facility] Determination of erythrocyte mean corpuscular volume (MCV)Ordered By: Radha Seo on 04-01-2023 MCV (RBC) [Entitic vol] 92.5 fL 80-94 [facility] Hematocrit Auto (Bld) [Volum e fraction]Ordered By: Radha Seo on 04-01-2023 Hematocrit (Bld) [Volume fraction] 33.2 % 40-54 [facility] Laboratory - Chemistry and C hemistry - challengeOrdered By: Radha Seo on 04-01-2023 ALP [Catalytic activity/Vol] 53 U/L 45-117 [facility] ALT [Catalytic activity/Vol] 25 U/L 16-61 [facility] CO2 [Moles/Vol] 22.0 mmol/L 21.0-32.0 [facility] Globulin (S) [Mass/Vol] 3.1 g/dL 2.2-4.2 [facility] Urea nitrogen/Creatinine [Mass ratio] 14.4 mg/mg 10-20 [facility] Laboratory - Hematology and Cell countsOrdered By: Radha Seo on 04-01-2023 Erythrocyte distribution width (RBC) [Entitic vol] 54.1 fL 35.1-43.9 [facility] Erythrocyte distribution width (RBC) [Ratio] 15.9 % 11.6-14.6 [facility] Immature granulocytes/100 WBC (Bld) 1.300 % 0.0-0.9 [facility] Comment on above: IG% - Immature Granu locytes (promyelocytes, myelocytes and metamyelocytes) > 1% indicates that a LEFT SHIFT is Present. MCH (RBC) [Entitic mass] 29.5 pg 27.0-32.0 [facility] Nucleated RBC/100 WBC (Bld) [Ratio] 0 % 0-5 [facility] MCHC Auto (RBC) [Mass/Vol]Or dered By: Radha Seo on 04-01-2023 MCHC (RBC) [Mass/Vol] 31.9 g/dL 32-36 [facility] No Panel InformationOrdered By: Radha Seo on 04-01-2023 Estimated GFR (MDRD) Amer 77 mL/min >60 [facility] Comment on above: GFR Calc Estimated GFR (MDRD) Non-Af Amer 64 mL/min >60 [facility] Comment on above: Non- GFR Calc Platelets bldOrdered By: Chilo Seo on 04-01-2023 Platelets (Bld) [#/Vol] 169 10*3/uL 150-450 [facility] Serum or plasma albumin mikel urement (mass/volume)Ordered By: Radha Seo on 04-01-2023 Albumin [Mass/Vol] 3.5 g/dL 3.2-5.0 [facility] Serum or plasma albumin/glob ulin mass ratioOrdered By: [facility] Gabbi on 04-01-2023 Albumin/Globulin [Mass ratio] 1.1 {ratio} 0.9-2.4 [facility] Serum or plasma calcium mikel urement (mass/volume)Ordered By: [facility] Gabbi on 04-01-2023 Calcium [Mass/Vol] 8.6 mg/dL 8.5-10.1 [facility] Serum or plasma creatinine m easurement (mass/volume)Ordered By: Radhayon Seo on 04-01-2023 Creatinine [Mass/Vol] 1.18 mg/dL 0.70-1.30 [facility] Comment on above: The validity of the calculated GFR & GFRAA in patients over 70 years has not been determined. Clinical correlation is essential. Serum or plasma urea nitroge n measurement (mass/volume)Ordered By: Radhayon Seo on 04-01-2023 Urea nitrogen [Mass/Vol] 17 mg/dL 7-18 [facility] Thin prep Papanicolaou smear with manual screeningOrdered By: [facility] Gabbi on 04-01-2023 Thin prep Papanicolaou smear with manual screening 18 U/L 15-37 [facility] Thin prep Papanicolaou smear with manual screening 6 5-15 [facility] CNOVon 03-29-2023 CNOV Office Visit (AGCALEX POB) ----- SHELTON KAY ([id number]) 1945 M Date Time Provider Department 03/29/23 3:00 PM MALATHI GALEAS During your visit today, we recorded the following information about you: Pulse Blood pressure Weight Height 66/minute 132/49 78.8 kg 1.778 m Veronica Rosas MA 03/29/2023 3:03 PM Signed No cardiac complaints today. YON Pennington Kimberly, APRN.CNP 03/29/2023 3:48 PM Signed [facility] General Cardiology Electrophysiology PRIMARY CARE PHYSICIAN: Federico Vigil [address] [place] [address] CHIEF COMPLAINT: Cardiovascular medicine follow-up for arrhythmia. [...] per week at the wellness center in [place], under the supervision of an barrel handler. He checks his heart rhythm daily on the [employer] mobile, reports 2 episodes of atrial fibrillation [...] cause unspecified Arthritis Atherosclerotic heart disease of [place] coronary artery without angina pectoris Atrial fibrillation [...] ACETBLR/PROX FEM PROSTC AGRFT/ALGRFT 04/2012 Dr. Wood> [facility]. ARTHRP KNE CONDYLEANDPLATU MEDIALANDLAT COMPARTMENTS Right COLONOSCOPY W/BIOPSY SINGLE/MULTIPLE 08/24/2006 EGD 12/01/2020 EYE SURGERY HX JOINT REPLACEMENT HX LEFT HEART CATH,PERCUTANEOUS 10/06/2022 OPEN REPAIR OF ROTATOR CUFF ACUTE 10/03/2008 Rotator cuff repair-right PAST SURGICAL HISTORY OF right knee scope PAST SURGICAL HISTORY OF cataract both eyes PAST SURGICAL HISTORY OF N/A 12/20/2022 EPS with Ablation, [facility] TONSILLECTOMY HX TONSILLECTOMY PRIMARY/SECONDARY Tons (more content not included)... Normal [facility] CTA CHEST (NONGATED) W IVCON on 03-29-2023 CTA CHEST (NONGATED) W IVCON * * *Final Report* * * DATE OF EXAM: Mar 29 2023 8:30AM [facility] 0123 - CTA CHEST (NONGATED) W [...] inflammation. Follow-up in 3-6 months is recommended. Cloth Shrinking Tester: SIA Transcribe Date/Time: Mar 30 2023 2:37P Dictated by : XAVI AREVALO MD This examination was interpreted and the report reviewed and electronically signed by: XAVI AREVALO MD on Mar 30 2023 2:54PM EST [id number] Normal [facility] ECHOon 03-29-2023 Echocardiography Echocardiography Rep ort: Transthoracic Echo [facility] Date of service: 03/29/2023 9:34:10 AM [facility] Ordering physician: TIMOTHY WALKER Indication: Sustained atrial fibrillation Technologist: Luma Smalls and Eugenio Devine [facility] Interpreting physician: Fabricio Jamison MD PATIENT: Name: MR. SHELTON KAY : 1945 Age: 77 years Gender: M [...] * * * Final * * * [employer] [facility] : [id number] Normal [facility] NURSING PROGon 03-29-2023 NURSING PROG HNO ID: [id number] Author: Cassidy Munoz Packing House Laborer Service: ? Author Type: Packing House Laborer Type: Nursing Progress Note Filed: 03/29/2023 11:04 AM Note Text: Applied event monitor. Pt verbalized understanding of monitor use and appropriately demonstrated recording a baseline. Spouse present for instruction. Normal [facility] CNOVon 03-24-2023 CNOV Office Visit (TMO ) ----- SHELTON KAY ([id number]) 1945 M Date Time Provider Department 03/24/23 2:30 PM ELENA WATKINS During your visit today, we recorded the following information about you: Pulse Respiration Blood pressure Weight 78/minute 16/minute 132/64 77.1 kg Height 1.791 m Elena Watkins, AL.THRESHING MACHINE OPERATOR 03/25/2023 11:33 AM Signed Shelton Kay is a 77 year old male presents for yearly evaluation of carotid disease. He is a prior [facility] pt, and established care with Dr. Arreguin a year ago at the [place] office, following [facility]'s residential. Annual Carotid US was requested. Pt has [...] cause unspecified Arthritis Atherosclerotic heart disease of [place] coronary artery without angina pectoris Atrial fibrillation [...] ACETBLR/PROX FEM PROSTC AGRFT/ALGRFT 04/2012 Dr. Wood> [facility] ARTHRP KNE CONDYLEANDPLATU MEDIALANDLAT COMPARTMENTS Right COLONOSCOPY W/BIOPSY SINGLE/MULTIPLE 08/24/2006 EGD 12/01/2020 EYE SURGERY HX JOINT REPLACEMENT HX LEFT HEART CATH,PERCUTANEOUS 10/06/2022 OPEN REPAIR OF ROTATOR CUFF ACUTE 10/03/2008 Rotator cuff repair-right PAST SURGICAL HISTORY OF right knee scope PAST SURGICAL HISTORY OF cataract both eyes PAST SURGICAL HISTORY OF N/A 12/20/2022 EPS with Ablation, [facility] TONSILLECTOMY HX TONSILLECTOMY PRIMARY/SECONDARY Tonsillectomy and [...] daily. clopidogrel (more content not included)... Normal [facility] CNPDarlin 02-21-2023 CNPN Telephone (AGVASACC) ----- SHELTON KAY ([id number]) 1945 M Date Time Provider Department 02/21/23 [facility] During your visit today, we recorded the following information about you: Keila Lucas LPN 02/21/2023 1:31 PM Signed Spouse, Ry, calling in to Nurse's Line to advise that patient is experiencing head pain and blurred vision. Patient went to his cilnical scientist/opthalmology who cleared him there. Spouse states there [...] closest medical facility to be evaluated. Keila Lucas LPN February 21, 2023 1:28 PM Elena Watkins APRN.LIZET 02/21/2023 1:58 PM Signed Noted and agree with plan. 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 Seo on 01-04-2023 Bilirubin [Mass/Vol] 0.70 mg/dL 0.20-1.00 [facility] Comment on above: For patients on eltr ombopag therapy, use of Dimension [place] TBIL is not recommended. Chloride [Moles/Vol] 108 mmol/L 98-107 [facility] Glucose [Mass/Vol] 131 mg/dL 74-106 [facility] Comment on above: Fasting Glucose resu lt greater than or equal to 126 mg/dL suggests DIABETES MELLITUS per A.D.A. criteria. Potassium [Moles/Vol] 3.8 mmol/L 3.5-5.1 [facility] Protein [Mass/Vol] 6.9 g/dL 6.4-8.2 [facility] Sodium [Moles/Vol] 140 mmol/L 136-145 [facility] Laboratory - Chemistry and C hemistry - challengeOrdered By: Dr. Seo on 01-04-2023 ALP [Catalytic activity/Vol] 76 U/L 45-117 [facility] ALT [Catalytic activity/Vol] 33 U/L 16-61 [facility] CO2 [Moles/Vol] 24.0 mmol/L 21.0-32.0 [facility] Globulin (S) [Mass/Vol] 3.4 g/dL 2.2-4.2 [facility] Urea nitrogen/Creatinine [Mass ratio] 23.1 mg/mg 10-20 [facility] No Panel InformationOrdered By: Dr. Seo on 01-04-2023 Estimated GFR (MDRD) Amer 85 mL/min >60 [facility] Comment on above: GFR Calc Estimated GFR (MDRD) Non-Af Amer 70 mL/min >60 [facility] Comment on above: Non- GFR Calc Serum or plasma albumin mikel urement (mass/volume)Ordered By: Dr. Seo on 01-04-2023 Albumin [Mass/Vol] 3.5 g/dL 3.2-5.0 [facility] Serum or plasma albumin/glob ulin mass ratioOrdered By: Dr. Seo on 01-04-2023 Albumin/Globulin [Mass ratio] 1.0 {ratio} 0.9-2.4 [facility] Serum or plasma calcium mikel urement (mass/volume)Ordered By: Dr. Seo on 01-04-2023 Calcium [Mass/Vol] 9.1 mg/dL 8.5-10.1 [facility] Serum or plasma creatinine m easurement (mass/volume)Ordered By: Dr. Seo on 01-04-2023 Creatinine [Mass/Vol] 1.08 mg/dL 0.70-1.30 [facility] Comment on above: The validity of the calculated GFR & GFRAA in patients over 70 years has not been determined. Clinical correlation is essential. Serum or plasma urea nitroge n measurement (mass/volume)Ordered By: Dr. Seo on 01-04-2023 Urea nitrogen [Mass/Vol] 25 mg/dL 7-18 [facility] Serum or plasma uric acid me asurement (mass/volume)Ordered By: Dr. Seo on 01-04-2023 Urate [Mass/Vol] 3.7 mg/dL 3.5-7.2 [facility] Comment on above: The drugs N-Acetylcy steine and Metamizole may falsely depress this assay. Thin prep Papanicolaou smear with manual screeningOrdered By: Dr. Seo on 01-04-2023 Thin prep Papanicolaou smear with manual screening 17 U/L 15-37 [facility] Thin prep Papanicolaou smear with manual screening 8 5-15 [facility] Absolute lymphocyte countOrd ered By: Merrick Abreu on 12-25-2022 Lymphocytes Auto (Unsp spec) [#/Vol] 2.16 10*3/uL 0.83-4.51 [facility] Basophil percentageOrdered B y: Merrick Abreu on 12-25-2022 Basophils/100 WBC (Bld) 0.3 % 0-1 [facility] Chloride [Moles/Vol] 111 mmol/L 98-107 [facility] Eosinophils/100 WBC (Bld) 1.5 % 0-5 [facility] Glucose [Mass/Vol] 106 mg/dL 74-106 [facility] Comment on above: Fasting Glucose resu lt from 100 to 125 mg/dL suggests IMPAIRED HOMEOSTASIS per A.D.A. criteria. Neutrophils (Bld) [#/Vol] 6.7 10*3/uL 2.0-7.7 [facility] Neutrophils/100 WBC (Bld) 68.4 % 47-70 [facility] Potassium [Moles/Vol] 3.7 mmol/L 3.5-5.1 [facility] Sodium [Moles/Vol] 142 mmol/L 136-145 [facility] WBC (Bld) [#/Vol] 9.7 10*3/uL 4.4-11.0 [facility] Basophil percentageOrdered B y: Dr. Saldaña on 12-25-2022 Bilirubin [Mass/Vol] 0.90 mg/dL 0.20-1.[address] [facility] Comment on above: For patients on eltr ombopag therapy, use of Dimension [place] TBIL is not recommended. Protein [Mass/Vol] 6.8 g/dL 6.4-8.2 [facility] Blood erythrocytes count (nu mber/volume)Ordered By: Merrick Abreu on 12-25-2022 RBC (Bld) [#/Vol] 4.31 10*6/uL 4.6-6.2 [facility] Blood hemoglobin measurement (mass/volume)Ordered By: Merrick Abreu on 12-25-2022 Hemoglobin (Bld) [Mass/Vol] 12.1 g/dL 13.0-16.5 [facility] Blood lymphocytes/100 leukoc ytesOrdered By: Merrick Abreu on 12-25-2022 Lymphocytes/100 WBC (Bld) 22.2 % 19-41 [facility] Blood monocytes/100 leukocyt esOrdered By: Merrick Abreu on 12-25-2022 Monocytes/100 WBC (Bld) 6.9 % 0-10 [facility] Blood platelet mean volumeOr dered By: Merrick Abreu on 12-25-2022 Platelet mean volume (Bld) [Entitic vol] 10.5 fL 6.2-12.0 [facility] Determination of erythrocyte mean corpuscular volume (MCV)Ordered By: Merrick Abreu on 12-25-2022 MCV (RBC) [Entitic vol] 88.9 fL 80-94 [facility] Direct bilirubinOrdered By: Dr. Saldaña on 12-25-2022 Bilirubin.direct [Mass/Vol] 0.29 mg/dL 0.00-0.30 [facility] Hematocrit Auto (Bld) [Volum e fraction]Ordered By: Merrick Abreu on 12-25-2022 Hematocrit (Bld) [Volume fraction] 38.3 % 40-54 [facility] INR in Blood by Coagulation assayOrdered By: Merrick Abreu on 12-25-2022 INR Coag (Bld) [Relative time] 1.7 {INR} [facility] Laboratory - Chemistry and C hemistry - challengeOrdered By: Dr. Saldaña on 12-25-2022 ALP [Catalytic activity/Vol] 96 U/L 45-117 [facility] ALT [Catalytic activity/Vol] 60 U/L 16-61 [facility] Globulin (S) [Mass/Vol] 3.2 g/dL 2.2-4.2 [facility] Laboratory - Chemistry and C hemistry - challengeOrdered By: Merrick Abreu on 12-25-2022 CO2 [Moles/Vol] 23.0 mmol/L 21.0-32.0 [facility] Magnesium [Mass/Vol] 2.4 mg/dL 1.6-2.6 [facility] Natriuretic peptide B (Bld) [Mass/Vol] 466.0 pg/mL 0-100 [facility] Urea nitrogen/Creatinine [Mass ratio] 17.0 mg/mg 10-20 [facility] Laboratory - CoagulationOrde red By: Merrick Abreu on 12-25-2022 aPTT Coag (Bld) [Time] 32.6 s 24.1-36.2 [facility] PT Coag (PPP) [Time] 19.8 s 11.7-14.9 [facility] Laboratory - Hematology and Cell countsOrdered By: Merrick Abreu on 12-25-2022 Erythrocyte distribution width (RBC) [Entitic vol] 54.8 fL 35.1-43.9 [facility] Erythrocyte distribution width (RBC) [Ratio] 17.1 % 11.6-14.6 [facility] Immature granulocytes/100 WBC (Bld) 0.700 % 0.0-0.9 [facility] Comment on above: IG% - Immature Granu locytes (promyelocytes, myelocytes and metamyelocytes) > 1% indicates that a LEFT SHIFT is Present. MCH (RBC) [Entitic mass] 28.1 pg 27.0-32.0 [facility] Nucleated RBC/100 WBC (Bld) [Ratio] 0 % 0-5 [facility] MCHC Auto (RBC) [Mass/Vol]Or dered By: Merrick Abreu on 12-25-2022 MCHC (RBC) [Mass/Vol] 31.6 g/dL 32-36 [facility] No Panel InformationOrdered By: Merrick Abreu on 12-25-2022 Troponin I High Sensitivity 161 pg/mL 3.0-78.0 [facility] Comment on above: Critical Result(s) C alled at: 09:52:34 12/25/2022 by: Keith Sanchez. Jersey Garcia RN (ER). Results read back by same. Please Note: New Test Units and Gender Specific Reference Ranges. For more information see Policy Stat Procedure [place] High Sensitivity Troponin (TNIH) and attachments. Estimated Creatinine Clearance Calc 57.03 ml/min [facility] Estimated GFR (MDRD) Amer 82 mL/min >60 [facility] Comment on above: GFR Calc Estimated GFR (MDRD) Non-Af Amer 68 mL/min >60 [facility] Comment on above: Non- GFR Calc Platelets bldOrdered By: Ben Abreu on 12-25-2022 Platelets (Bld) [#/Vol] 147 10*3/uL 150-450 [facility] Serum or plasma albumin mikel urement (mass/volume)Ordered By: Dr. Saldaña on 12-25-2022 Albumin [Mass/Vol] 3.6 g/dL 3.2-5.0 [facility] Serum or plasma calcium mikel urement (mass/volume)Ordered By: Merrick Abreu on 12-25-2022 Calcium [Mass/Vol] 9.0 mg/dL 8.5-10.1 [facility] Serum or plasma creatinine m easurement (mass/volume)Ordered By: Merrick Abreu on 12-25-2022 Creatinine [Mass/Vol] 1.12 mg/dL 0.70-1.30 [facility] Comment on above: The validity of the calculated GFR & GFRAA in patients over 70 years has not been determined. Clinical correlation is essential. Serum or plasma urea nitroge n measurement (mass/volume)Ordered By: Merrick Abreu on 12-25-2022 Urea nitrogen [Mass/Vol] 19 mg/dL 7-18 [facility] Thin prep Papanicolaou smear with manual screeningOrdered By: Dr. Saldaña on 12-25-2022 Thin prep Papanicolaou smear with manual screening 34 U/L 15-37 [facility] Thin prep Papanicolaou smear with manual screeningOrdered By: Merrick Abreu on 12-25-2022 Thin prep Papanicolaou smear with manual screening 8 5-15 [facility] Absolute lymphocyte countOrd ered By: Dr. Seo on 11-16-2022 Lymphocytes Auto (Unsp spec) [#/Vol] 3.20 10*3/uL 0.83-4.51 [facility] Basophil percentageOrdered B y: Dr. Seo on 11-16-2022 Basophils/100 WBC (Bld) 0.4 % 0-1 [facility] Bilirubin [Mass/Vol] 0.50 mg/dL 0.20-1.00 [facility] Comment on above: For patients on eltr ombopag therapy, use of Dimension [place] TBIL is not recommended. Chloride [Moles/Vol] 112 mmol/L 98-107 [facility] Eosinophils/100 WBC (Bld) 0.9 % 0-5 [facility] Glucose [Mass/Vol] 100 mg/dL 74-106 [facility] Comment on above: Fasting Glucose resu lt from 100 to 125 mg/dL suggests IMPAIRED HOMEOSTASIS per A.D.A. criteria. Neutrophils (Bld) [#/Vol] 7.7 10*3/uL 2.0-7.7 [facility] Neutrophils/100 WBC (Bld) 63.7 % 47-70 [facility] Potassium [Moles/Vol] 3.9 mmol/L 3.5-5.1 [facility] Protein [Mass/Vol] 7.0 g/dL 6.4-8.2 [facility] Sodium [Moles/Vol] 142 mmol/L 136-145 [facility] WBC (Bld) [#/Vol] 12.1 10*3/uL 4.4-11.0 [facility] Blood erythrocytes count (nu mber/volume)Ordered By: Dr. Seo on 11-16-2022 RBC (Bld) [#/Vol] 4.61 10*6/uL 4.6-6.2 [facility] Blood hemoglobin measurement (mass/volume)Ordered By: Dr. Seo on 11-16-2022 Hemoglobin (Bld) [Mass/Vol] 13.1 g/dL 13.0-16.5 [facility] Blood lymphocytes/100 leukoc ytesOrdered By: Dr. Seo on 11-16-2022 Lymphocytes/100 WBC (Bld) 26.4 % 19-41 [facility] Blood monocytes/100 leukocyt esOrdered By: Dr. Seo on 11-16-2022 Monocytes/100 WBC (Bld) 7.6 % 0-10 [facility] Blood platelet mean volumeOr dered By: Dr. Seo on 11-16-2022 Platelet mean volume (Bld) [Entitic vol] 10.8 fL 6.2-12.0 [facility] Determination of erythrocyte mean corpuscular volume (MCV)Ordered By: Dr. Seo on 11-16-2022 MCV (RBC) [Entitic vol] 92.8 fL 80-94 [facility] Erythrocyte sedimentation ra teOrdered By: Dr. Seo on 11-16-2022 ESR (Bld) [Velocity] 15 mm/h 0-20 [facility] Hematocrit Auto (Bld) [Volum e fraction]Ordered By: Dr. Seo on 11-16-2022 Hematocrit (Bld) [Volume fraction] 42.8 % 40-54 [facility] Laboratory - Chemistry and C hemistry - challengeOrdered By: Dr. Seo on 11-16-2022 ALP [Catalytic activity/Vol] 97 U/L 45-117 [facility] ALT [Catalytic activity/Vol] 96 U/L 16-61 [facility] CO2 [Moles/Vol] 23.0 mmol/L 21.0-32.0 [facility] Globulin (S) [Mass/Vol] 3.4 g/dL 2.2-4.2 [facility] Urea nitrogen/Creatinine [Mass ratio] 21.7 mg/mg 10-20 [facility] Laboratory - Hematology and Cell countsOrdered By: Dr. Seo on 11-16-2022 Erythrocyte distribution width (RBC) [Entitic vol] 53.0 fL 35.1-43.9 [facility] Erythrocyte distribution width (RBC) [Ratio] 15.7 % 11.6-14.6 [facility] Immature granulocytes/100 WBC (Bld) 1.000 % 0.0-0.9 [facility] Comment on above: IG% - Immature Granu locytes (promyelocytes, myelocytes and metamyelocytes) > 1% indicates that a LEFT SHIFT is Present. MCH (RBC) [Entitic mass] 28.4 pg 27.0-32.0 [facility] Nucleated RBC/100 WBC (Bld) [Ratio] 0.2 % 0-5 [facility] MCHC Auto (RBC) [Mass/Vol]Or dered By: Dr. Seo on 11-16-2022 MCHC (RBC) [Mass/Vol] 30.6 g/dL 32-36 [facility] No Panel InformationOrdered By: Dr. Seo on 11-16-2022 Anti-Nuclear Antibody Screen Negative Negative [facility] Comment on above: Performed at: [facility] [address] [id number] Director: Emmanuel Lazcano PhD, Phone: [phone] Estimated GFR (MDRD) Amer 79 mL/min >60 [facility] Comment on above: GFR Calc Estimated GFR (MDRD) Non-Af Amer 66 mL/min >60 [facility] Comment on above: Non- GFR Calc Hepatitis B Surface Antigen Non-Reactive Nonreactive [facility] Hepatitis C Antibody Non-Reactive Nonreactive [facility] Comment on above: Non Reactive: < 0.8 Equivocal: >/= 0.8 to < 1.0 Reactive: >/= 1.0The CDC recommends that a reactive/equivocal HCV antibody result be followed up by the HCV Nucleic Acid Amplificationtest (509383) Platelets bldOrdered By: Dr. Seo on 11-16-2022 Platelets (Bld) [#/Vol] 240 10*3/uL 150-450 [facility] Serum cyclic citrullinated p eptide IgG antibody assay (units/volume)Ordered By: Dr. Seo on 11-16-2022 Cyclic citrullinated peptide IgG Qn 3 units 0-19 [facility] Comment on above: Negative <20 Weak po sitive 20 - 39 Moderate positive 40 - 59 Strong positive >59Performed at: [facility] [id number] [place], [place] [id number] Director: Blaine Martins PhD, Phone: [phone] at: [facility] [address] [id number] Director: Emmanuel Lazcano PhD, Phone: [phone] Serum hepatitis B virus surf yanira antibody IgG detectionOrdered By: Dr. Seo on 11-16-2022 HBV surface IgG Ql (S) Non-Reactive [facility] Comment on above: Non Reactive: Incons istent with immunity less than <10 mIU/mL Reactive: Consistent with immunity greater than or equal to 10 mIU/mL Serum or plasma C reactive p rotein measurement (mass/volume)Ordered By: Dr. Seo on 11-16-2022 CRP [Mass/Vol] mg/L 0.0-3.0 [facility] Comment on above: C-Reactive Protein ( CRP) provides useful information for thediagnosis, therapy and monitoring of inflammatory processesand associated diseases. For the evaluation of Relative Riskfor Cardiovascular Disease, a High Sensitivity CRP (HSCRP)should be ordered. Serum or plasma albumin mikel urement (mass/volume)Ordered By: Dr. Seo on 11-16-2022 Albumin [Mass/Vol] 3.6 g/dL 3.2-5.0 [facility] Serum or plasma albumin/glob ulin mass ratioOrdered By: Dr. Seo on 11-16-2022 Albumin/Globulin [Mass ratio] 1.1 {ratio} 0.9-2.4 [facility] Serum or plasma calcium mikel urement (mass/volume)Ordered By: Dr. Seo on 11-16-2022 Calcium [Mass/Vol] 8.9 mg/dL 8.5-10.1 [facility] Serum or plasma creatinine m easurement (mass/volume)Ordered By: Dr. Seo on 11-16-2022 Creatinine [Mass/Vol] 1.15 mg/dL 0.70-1.30 [facility] Comment on above: The validity of the calculated GFR & GFRAA in patients over 70 years has not been determined. Clinical correlation is essential. Serum or plasma urea nitroge n measurement (mass/volume)Ordered By: Dr. Seo on 11-16-2022 Urea nitrogen [Mass/Vol] 25 mg/dL 7-18 [facility] Serum rheumatoid factor dete ctionOrdered By: Dr. Seo on 11-16-2022 Rheumatoid factor Ql (S) < 10.0 IU/mL <15 [facility] Thin prep Papanicolaou smear with manual screeningOrdered By: Dr. Seo on 11-16-2022 Thin prep Papanicolaou smear with manual screening 50 U/L 15-37 [facility] Thin prep Papanicolaou smear with manual screening 7 5-15 [facility] Thin prep Papanicolaou smear with manual screening Negative . [facility] Comment on above: HLA-B*27 [id number] allele interpretation for all loci based on IMGT/HLAdatabase version 3.44This test was developed and its performance characteristicsdetermined by [facility]. It has not been cleared or approvedby the Food and Drug Administration.[facility] CLIA ID Number [id number] test was performed using PCR (Polymerase ChainReaction)/SSOP (Sequence Specific Oligonucleotide Probes)technique. SBT (Sequence Based Typing) and/or SSP(Sequence Specific Primers) may be used as supplementalmethods when necessary. Please contact [facility] at if you have any questions. Director of [facility] Dr Blaine Martins, PhD Basophil percentageOrdered B y: Dr. Vernon on 11-12-2022 Chloride [Moles/Vol] 110 mmol/L 98-107 [facility] Glucose [Mass/Vol] 138 mg/dL 74-106 [facility] Comment on above: Fasting Glucose resu lt greater than or equal to 126 mg/dL suggests DIABETES MELLITUS per A.D.A. criteria. Potassium [Moles/Vol] 4.2 mmol/L 3.5-5.1 [facility] Sodium [Moles/Vol] 136 mmol/L 136-145 [facility] Laboratory - Chemistry and C hemistry - challengeOrdered By: Dr. Vernon on 11-12-2022 CO2 [Moles/Vol] 22.0 mmol/L 21.0-32.0 [facility] Urea nitrogen/Creatinine [Mass ratio] 22.3 mg/mg 10-20 [facility] No Panel InformationOrdered By: Dr. Vernon on 11-12-2022 Estimated GFR (MDRD) Amer 95 mL/min >60 [facility] Comment on above: GFR Calc Estimated GFR (MDRD) Non-Af Amer 78 mL/min >60 [facility] Comment on above: Non- GFR Calc Serum or plasma calcium mikel urement (mass/volume)Ordered By: Dr. Vernon on 11-12-2022 Calcium [Mass/Vol] 8.8 mg/dL 8.5-10.1 [facility] Serum or plasma creatinine m easurement (mass/volume)Ordered By: Dr. Vernon on 11-12-2022 Creatinine [Mass/Vol] 0.98 mg/dL 0.70-1.30 [facility] Comment on above: The validity of the calculated GFR & GFRAA in patients over 70 years has not been determined. Clinical correlation is essential. Serum or plasma urea nitroge n measurement (mass/volume)Ordered By: Dr. Vernon on 11-12-2022 Urea nitrogen [Mass/Vol] 22 mg/dL 7-18 [facility] Thin prep Papanicolaou smear with manual screeningOrdered By: Dr. Vernon on 11-12-2022 Thin prep Papanicolaou smear with manual screening 4 5-15 [facility] XR FOOT GENERAL 3V AP/LAT/OB L RIGHTon 11-03-2022 [facility] CBC panel Auto (Bld)on 10-25 Erythrocyte distribution width (RBC) [Ratio] 14.5 % 11.5 - 15.0 % [facility] Hematocrit (Bld) [Volume fraction] 36.7 % Low 39.0 - 51.0 % [facility] Hemoglobin (Bld) [Mass/Vol] 12.1 g/dL Low 13.0 - 17.0 g/dL [facility] MCH (RBC) [Entitic mass] 29.5 pg 26.0 - 34.0 pg [facility] MCHC (RBC) [Mass/Vol] 33.0 g/dL 30.5 - 36.0 g/dL [facility] MCV (RBC) [Entitic vol] 89.5 fL 80.0 - 100.0 fL [facility] Nucleated RBC (Bld) [#/Vol] <0.01 k/uL [facility] Platelet mean volume (Bld) [Entitic vol] 9.8 fL 9.0 - 12.7 fL [facility] Platelets (Bld) [#/Vol] 247 10*3/uL 150 - 400 k/uL [facility] RBC (Bld) [#/Vol] 4.10 10*6/uL Low 4.20 - 6.0 0 m/uL [facility] WBC (Bld) [#/Vol] 8.48 10*3/uL 3.70 - 11. 00 k/uL [facility] ESR Westergren method (Bld) [Velocity]on 10-25-2022 ESR (Bld) [Velocity] 33 mm/h High 0 - 15 mm/hr Cl [facility] CBC panel Auto (Bld)on 10-11 Erythrocyte distribution width (RBC) [Ratio] 14.6 % 11.5 - 15.0 % [facility] Hematocrit (Bld) [Volume fraction] 38.9 % Low 39.0 - 51.0 % [facility] Hemoglobin (Bld) [Mass/Vol] 12.7 g/dL Low 13.0 - 17.0 g/dL [facility] MCH (RBC) [Entitic mass] 29.7 pg 26.0 - 34.0 pg [facility] MCHC (RBC) [Mass/Vol] 32.6 g/dL 30.5 - 36.0 g/dL [facility] MCV (RBC) [Entitic vol] 90.9 fL 80.0 - 100.0 fL [facility] Nucleated RBC (Bld) [#/Vol] <0.01 k/uL [facility] Platelet mean volume (Bld) [Entitic vol] 9.6 fL 9.0 - 12.7 fL [facility] Platelets (Bld) [#/Vol] 256 10*3/uL 150 - 400 k/uL [facility] RBC (Bld) [#/Vol] 4.28 10*6/uL 4.20 - 6.0 0 m/uL [facility] WBC (Bld) [#/Vol] 11.27 10*3/uL High 3.70 - 11 .00 k/uL [facility] URIC ACID BLOODon 10-11-2022 Urate [Mass/Vol] 4.9 mg/dL 4.0 - 8.1 mg/dL [facility] Basophil percentageOrdered B y: Dr. Vernon on 10-07-2022 Bilirubin [Mass/Vol] 0.60 mg/dL 0.20-1.00 [facility] Comment on above: For patients on eltr ombopag therapy, use of Dimension [place] TBIL is not recommended. Chloride [Moles/Vol] 111 mmol/L 98-107 [facility] Cholesterol [Mass/Vol] 115 mg/dL <200 [facility] Comment on above: <200 mg/dL Desirable 200-240 mg/dL Borderline >240 mg/dL High Risk Glucose [Mass/Vol] 103 mg/dL 74-106 [facility] Comment on above: Fasting Glucose resu lt from 100 to 125 mg/dL suggests IMPAIRED HOMEOSTASIS per A.D.A. criteria. Potassium [Moles/Vol] 4.0 mmol/L 3.5-5.1 [facility] Protein [Mass/Vol] 5.9 g/dL 6.4-8.2 [facility] Sodium [Moles/Vol] 143 mmol/L 136-145 [facility] Triglyceride [Mass/Vol] 121 mg/dL <199 [facility] Comment on above: The drugs N-Acetylcy steine and Metamizole may falsely depress this assay.Serum Triglycerides Reference Interval Normal <150 mg/dL Borderline high 150 - 199 mg/dL High 200 - 499 mg/dL Very High > or = 500 mg/dL WBC (Bld) [#/Vol] 9.3 10*3/uL 4.4-11.0 [facility] Blood erythrocytes count (nu mber/volume)Ordered By: Dr. Vernon on 10-07-2022 RBC (Bld) [#/Vol] 3.62 10*6/uL 4.6-6.2 [facility] Blood hemoglobin measurement (mass/volume)Ordered By: Dr. Vernon on 10-07-2022 Hemoglobin (Bld) [Mass/Vol] 10.9 g/dL 13.0-16.5 [facility] Blood platelet mean volumeOr dered By: Dr. Vernon on 10-07-2022 Platelet mean volume (Bld) [Entitic vol] 10.3 fL 6.2-12.0 [facility] Determination of erythrocyte mean corpuscular volume (MCV)Ordered By: Dr. Vernon on 10-07-2022 MCV (RBC) [Entitic vol] 93.9 fL 80-94 [facility] Hematocrit Auto (Bld) [Volum e fraction]Ordered By: Dr. Vernon on 10-07-2022 Hematocrit (Bld) [Volume fraction] 34.0 % 40-54 [facility] Laboratory - Chemistry and C hemistry - challengeOrdered By: Dr. Vernon on 10-07-2022 ALP [Catalytic activity/Vol] 67 U/L 45-117 [facility] ALT [Catalytic activity/Vol] 59 U/L 16-61 [facility] CO2 [Moles/Vol] 24.0 mmol/L 21.0-32.0 [facility] Globulin (S) [Mass/Vol] 2.9 g/dL 2.2-4.2 [facility] Urea nitrogen/Creatinine [Mass ratio] 15.4 mg/mg 10-20 [facility] Laboratory - Hematology and Cell countsOrdered By: Dr. Vernon on 10-07-2022 Erythrocyte distribution width (RBC) [Entitic vol] 52.7 fL 35.1-43.9 [facility] Erythrocyte distribution width (RBC) [Ratio] 15.5 % 11.6-14.6 [facility] MCH (RBC) [Entitic mass] 30.1 pg 27.0-32.0 [facility] MCHC Auto (RBC) [Mass/Vol]Or dered By: Dr. Vernon on 10-07-2022 MCHC (RBC) [Mass/Vol] 32.1 g/dL 32-36 [facility] No Panel InformationOrdered By: Dr. Vernon on 10-07-2022 Estimated Creatinine Clearance Calc 65.18 ml/min [facility] Estimated GFR (MDRD) Amer 96 mL/min >60 [facility] Comment on above: GFR Calc Estimated GFR (MDRD) Non-Af Amer 79 mL/min >60 [facility] Comment on above: Non- GFR Calc Platelets bldOrdered By: Dr. Vernon on 10-07-2022 Platelets (Bld) [#/Vol] 156 10*3/uL 150-450 [facility] Serum or plasma albumin mikel urement (mass/volume)Ordered By: Dr. Vernon on 10-07-2022 Albumin [Mass/Vol] 3.0 g/dL 3.2-5.0 [facility] Serum or plasma albumin/glob ulin mass ratioOrdered By: Dr. Vernon on 10-07-2022 Albumin/Globulin [Mass ratio] 1.0 {ratio} 0.9-2.4 [facility] Serum or plasma calcium mikel urement (mass/volume)Ordered By: Dr. Vernon on 10-07-2022 Calcium [Mass/Vol] 8.7 mg/dL 8.5-10.1 [facility] Serum or plasma cholesterol in HDL measurement (mass/volume)Ordered By: Dr. Vernon on 10-07-2022 Cholesterol in HDL [Mass/Vol] 42 mg/dL >40 [facility] Comment on above: The drugs N-Acetylcy steine and Metamizole may falsely depress this assay. Reference Range HDL <40 mg/dL Low HDL Cholesterol HDL >or= 60 mg/dL High HDL Cholesterol Serum or plasma cholesterol in VLDL measurement (mass/volume)Ordered By: Dr. Vernon on 10-07-2022 Cholesterol in VLDL [Mass/Vol] 24 mg/dL 5-40 [facility] Serum or plasma creatinine m easurement (mass/volume)Ordered By: Dr. Vernon on 10-07-2022 Creatinine [Mass/Vol] 0.98 mg/dL 0.70-1.30 [facility] Comment on above: The validity of the calculated GFR & GFRAA in patients over 70 years has not been determined. Clinical correlation is essential. Serum or plasma low density lipoprotein (LDL) cholesterol measurement (mass/volume)Ordered By: Dr. Vernon on 10-07-2022 Cholesterol in LDL [Mass/Vol] 49 mg/dL 0-130 [facility] Serum or plasma urea nitroge n measurement (mass/volume)Ordered By: Dr. Vernon on 10-07-2022 Urea nitrogen [Mass/Vol] 15 mg/dL 7-18 [facility] Thin prep Papanicolaou smear with manual screeningOrdered By: Dr. Vernon on 10-07-2022 Thin prep Papanicolaou smear with manual screening 22 U/L 15-37 [facility] Thin prep Papanicolaou smear with manual screening 8 5-15 [facility] INR in Blood by Coagulation assayOrdered By: Dr. Vernon on 10-04-2022 INR Coag (Bld) [Relative time] 1.4 {INR} [facility] Laboratory - CoagulationOrde red By: Dr. Vernon on 10-04-2022 aPTT Coag (Bld) [Time] 30.2 s 24.1-36.2 [facility] PT Coag (PPP) [Time] 16.4 s 11.7-14.9 [facility] XR FOOT GENERAL 3V AP/LAT/OB L LEFTon 09-27-2022 [facility] XR Foot - left AP and Latera l and obliqueon 09-27-2022 IMPRESSION: No acute fracture or dislocation Cloth Shrinking Tester: SIA Transcribe Date/Time: Sep 27 2022 9:58A Dictated by : MUNA HARPER MD This examination was interpreted and the report reviewed and electronically signed by: MUNA HARPER MD on Sep 27 2022 10:07AM [facility] DIVISION OF RADIOLOGY * * *Final Report* [...] calcifications are noted. DIVISION OF RADIOLOGY [facility] * * *Final Report* * [...] IMPRESSION IMPRESSION: No acute fracture or dislocation Cloth Shrinking Tester: PSCB Transcribe Date/Time: Sep 27 2022 9:58A Dictated by : MUNA HARPER MD This examination was interpreted and the report reviewed and electronically signed by: MUNA HARPER MD on Sep 27 2022 10:07AM EST [facility] Radiology Study observation (narrative) [facility] XR Foot - left AP and Latera l and obliqueOrdered By: Ccf Provider on 09-27-2022 [facility] US THYROID/PARATHYROIDon [facility] Comprehensive metabolic 2000 panelon 07-22-2022 Albumin [Mass/Vol] 4.6 g/dL 3.9 - 4.9 g/dL [facility] ALP [Catalytic activity/Vol] 78 U/L 38 - 113 U/L [facility] ALT [Catalytic activity/Vol] 21 U/L 10 - 54 U/L [facility] Anion gap [Moles/Vol] 12 mmol/L 9 - 18 mmol/L [facility] AST [Catalytic activity/Vol] 24 U/L 14 - 40 U/L [facility] Bilirubin [Mass/Vol] 0.5 mg/dL 0.2 - 1 .3 mg/dL [facility] Calcium [Mass/Vol] 10.1 mg/dL 8.5 - 10. 2 mg/dL [facility] Chloride [Moles/Vol] 103 mmol/L 97 - 10 5 mmol/L [facility] CO2 [Moles/Vol] 25 mmol/L 22 - 30 mmol/L [facility] Creatinine [Mass/Vol] 1.08 mg/dL 0.73 - 1.22 mg/dL [facility] Estimated Glomerular Filtration Rate 71 mL/min/1.73m >=60 mL/min/1.73m [facility] Glucose [Mass/Vol] 116 mg/dL High 74 - 99 mg/dL [facility] Potassium [Moles/Vol] 5.1 mmol/L 3.7 - 5.1 mmol/L [facility] Protein [Mass/Vol] 7.6 g/dL 6.3 - 8.0 g/dL [facility] Sodium [Moles/Vol] 140 mmol/L 136 - 144 mmol/L [facility] Urea nitrogen [Mass/Vol] 17 mg/dL 9 - 24 mg/dL [facility] T3 BLDon 07-22-2022 T3 [Mass/Vol] 119 ng/dL 79 - 165 ng/dL [facility] T4 FREE/FREE THYROXon 2022 Free T4 [Mass/Vol] 0.9 ng/dL 0.9 - 1.7 ng/dL [facility] TSH BLDon 07-22-2022 TSH Qn 2.430 m[IU]/L 0.270 - 4.200 mIU/L [facility] CBC W Auto Differential pane l (Bld)on 07-21-2022 Basophils (Bld) [#/Vol] 0.05 10*3/uL <0.11 k/uL [facility] Basophils/100 WBC (Bld) 0.5 % [facility] Differential cell count method Nom (Bld) Auto [facility] Eosinophils (Bld) [#/Vol] 0.15 10*3/uL <0.46 k/uL [facility] Eosinophils/100 WBC (Bld) 1.5 % [facility] Erythrocyte distribution width (RBC) [Ratio] 13.5 % 11.5 - 15.0 % [facility] Hematocrit (Bld) [Volume fraction] 41.9 % 39.0 - 51.0 % [facility] Hemoglobin (Bld) [Mass/Vol] 13.6 g/dL 13.0 - 17.0 g/dL [facility] Immature granulocytes (Bld) [#/Vol] 0.05 10*3/uL <0.10 k/uL [facility] Immature granulocytes/100 WBC (Bld) 0.5 % [facility] Lymphocytes (Bld) [#/Vol] 3.46 10*3/uL 1.00 - 4.00 k/uL [facility] Lymphocytes/100 WBC (Bld) 35.4 % [facility] MCH (RBC) [Entitic mass] 30.0 pg 26.0 - 34.0 pg [facility] MCHC (RBC) [Mass/Vol] 32.5 g/dL 30.5 - 36.0 g/dL [facility] MCV (RBC) [Entitic vol] 92.5 fL 80.0 - 100.0 fL [facility] Monocytes (Bld) [#/Vol] 0.64 10*3/uL <0.87 k/uL [facility] Monocytes/100 WBC (Bld) 6.6 % [facility] Neutrophils (Bld) [#/Vol] 5.42 10*3/uL 1.45 - 7.50 k/uL [facility] Neutrophils/100 WBC (Bld) 55.5 % [facility] Nucleated RBC (Bld) [#/Vol] <0.01 k/uL [facility] Nucleated RBC/100 WBC (Bld) [Ratio] 0.0 /100 WBC [facility] Platelet mean volume (Bld) [Entitic vol] 9.9 fL 9.0 - 12.7 fL [facility] Platelets (Bld) [#/Vol] 281 10*3/uL 150 - 400 k/uL [facility] RBC (Bld) [#/Vol] 4.53 10*6/uL 4.20 - 6.0 0 m/uL [facility] WBC (Bld) [#/Vol] 9.77 10*3/uL 3.70 - 11. 00 k/uL [facility] XR CHEST 2V FRONTAL/LATon [facility] XR Chest PA and Lateralon IMPRESSION: No acute radiographic abnormality. Cloth Shrinking Tester: PSCB Transcribe Date/Time: Apr 15 2022 12:14P Dictated by : KEYA ALMENDAREZ DO This examination was interpreted and the report reviewed and electronically signed by: KEYA ALMENDAREZ DO on Apr 15 2022 12:17PM [facility] DIVISION OF RADIOLOGY * * *Final Report* [...] the visualized spine. DIVISION OF RADIOLOGY Provider, [facility] Boudreaux [facility] - 04/15/2022 * * *Final Report* * [...] spine. IMPRESSION IMPRESSION: No acute radiographic abnormality. Cloth Shrinking Tester: PSCB Transcribe Date/Time: Apr 15 2022 12:14P Dictated by : KEYA ALMENDAREZ DO This examination was interpreted and the report reviewed and electronically signed by: KEYA ALMENDAREZ DO on Apr 15 2022 12:17PM EST [facility] Radiology Study observation (narrative) [facility] XR Chest PA and LateralOrder ed By: [facility]cf Provider on 04-15-2022 [facility] CBC W Auto Differential pane l (Bld)on 01-15-2022 Abs Immature Gran <0.03 <0.10 k/uL [facility] Basophils (Bld) [#/Vol] 0.04 10*3/uL <0.11 k/uL [facility] Basophils/100 WBC (Bld) 0.5 % [facility] Differential cell count method Nom (Bld) Auto [facility] Eosinophils (Bld) [#/Vol] 0.09 10*3/uL <0.46 k/uL [facility] Eosinophils/100 WBC (Bld) 1.1 % [facility] Erythrocyte distribution width (RBC) [Ratio] 13.9 % 11.5 - 15.0 % [facility] Hematocrit (Bld) [Volume fraction] 40.5 % 39.0 - 51.0 % [facility] Hemoglobin (Bld) [Mass/Vol] 13.4 g/dL 13.0 - 17.0 g/dL [facility] Immature Gran % 0.3 % [facility] Lymphocytes (Bld) [#/Vol] 2.79 10*3/uL 1.00 - 4.00 k/uL [facility] Lymphocytes/100 WBC (Bld) 35.4 % [facility] MCH (RBC) [Entitic mass] 30.3 pg 26.0 - 34.0 pg [facility] MCHC (RBC) [Mass/Vol] 33.1 g/dL 30.5 - 36.0 g/dL [facility] MCV (RBC) [Entitic vol] 91.6 fL 80.0 - 100.0 fL [facility] Monocytes (Bld) [#/Vol] 0.66 10*3/uL <0.87 k/uL [facility] Monocytes/100 WBC (Bld) 8.4 % [facility] Neutrophils (Bld) [#/Vol] 4.28 10*3/uL 1.45 - 7.50 k/uL [facility] Neutrophils/100 WBC (Bld) 54.3 % [facility] Nucleated RBC (Bld) [#/Vol] 10*3/uL <0.01 k/uL [facility] Nucleated RBC/100 WBC (Bld) [Ratio] 0.0 /100 WBC [facility] Platelet mean volume (Bld) [Entitic vol] 10.1 fL 9.0 - 12.7 fL [facility] Platelets (Bld) [#/Vol] 280 10*3/uL 150 - 400 k/uL [facility] RBC (Bld) [#/Vol] 4.42 10*6/uL 4.20 - 6.0 0 m/uL [facility] WBC (Bld) [#/Vol] 7.88 10*3/uL 3.70 - 11. 00 k/uL [facility] XR FOOT GENERAL 3V AP/LAT/OB L RIGHTon 11-24-2021 [facility] XR Shoulder - left 3 Viewson 07-29-2020 IMPRESSION: Mild AC joint degenerative change. Cloth Shrinking Tester: SIA Transcribe Date/Time: Jul 29 2020 4:02P Dictated by : REYNOLD OROZCO MD This examination was interpreted and the report reviewed and electronically signed by: REYNOLD OROZCO MD on Jul 29 2020 4:34PM [facility] DIVISION OF RADIOLOGY * * *Final Report* [...] acromioclavicular joint. - DIVISION OF RADIOLOGY Provider, [facility] - 07/29/2020 * * *Final Report* * [...] IMPRESSION IMPRESSION: Mild AC joint degenerative change. Cloth Shrinking Tester: SAI Transcribe Date/Time: Jul 29 2020 4:02P Dictated by : REYNOLD OROZCO MD This examination was interpreted and the report reviewed and electronically signed by: REYNOLD OROZCO MD on Jul 29 2020 4:34PM [facility] Radiology Study observation (narrative) [facility] XR Shoulder - left 3 ViewsOr dered By: Ccf Provider on 07-29-2020 [facility] Clinical Lists Update: Prelo ad Extendedon 08-08-2018 Tobacco smoking status NHIS Tobacco smoking status NHIS [facility] Work Phone: Clinical Summary: Data Submi tted by Patient in [place] 08-04-2018 #DEP CHLDRN Yes [facility] Work Phone: 3+ETOHDAILY 2 drinks per day [facility] Work Phone: ASTHEHSZHOUS 2 floors [facility] Work Phone: BROTHERS A/D My brother(s)' healt h history is unknown [facility] Work Phone: DEATHCAU DAD Cancer [facility] Work Phone: DEATHCAU MOM Heart failure [facility] Work Phone: DEP ALG LIST I don't have any jayce g allergies.,I don't have any food allergies.,I don't have any environmental allergies. 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 [facility] Work Phone: DEP ETOH USE Yes [facility] Work Phone: DEP MED LIST Lisinopril 20 mg Tab , 1 times per day,Aspirin 81 mg Tab, 1 times per day,Simvastatin 20 mg Tab, 1 times per day [facility] Work Phone: DEP MOM PMH Arthritis, Cancer, H eart disease [facility] Work Phone: DEP PMH Arterial sclerosis, GERD, Gout, High blood pressure, Peripheral vascular disease [facility] Work Phone: DEP SH CSMO former smoker [facility] Work Phone: DEP SH FSMO 1980 [facility] Work Phone: DEP SH MAST [facility] Work Phone: DEP SURGERY Hip replacement - to day, Knee replacement - total, Shoulder replacement - total [facility] Work Phone: DEPEXER FREQ 5 days per week [facility] Work Phone: ETOHPERFRM beer [facility] Work Phone: FATHER A/D [facility] Work Phone: HCG.beta subunit ( test) Ql (U) 1 time per year [facility] Work Phone: MOTHER A/D [facility] Work Phone: RLATNSHPINFR Self [facility] Work Phone: SISTER A/D My sister(s)' health history is unknown [facility] Work Phone: SWHOUTYPE house [facility] Work Phone: DEP EXERCISE Yes [facility] Work Phone: DEP EXERTYP walking, strength training, aerobics [facility] Work Phone: DEP MED LIST Lisinopril 20 mg Tab , 1 times per day,Simvastatin 20 mg Tab, 1 times per day [facility] Work Phone: Clinical Summary: HMSPatient IDon 08-04-2018 OOP [facility] Work Phone: Office Visit: Follow-up by juve cabrales, Rm: 3on 08-04-2018 NEGATED: Highlighted rowProtein mass conc Done [facility] Work Phone: ECG B/O W INTERP (MED OFFICE ) [facility] Vital Signs Date Time Vital Sign Value Performing Clinician Facility 03-07-2025 10:02-0400 Body height 177.[address] Federico Vigil MD Work Phone: 0(345)395-803451 [place] [address] 03-07-2025 10:02-0400 Body mass index (BMI) [Ratio] 24.5 kg/m2 Dr. Federico Vigil MD Work Phone: 5(539)222-914951 [place] [address] 03-07-2025 10:02-0400 Body weight 77.[address] Federico Vigil MD Work Phone: 0(422)050-356451 [place] [address] 03-07-2025 10:02-0400 Diastolic blood pressure 60 mm[Hg] Dr. Federico Vigil MD Work Phone: 4(313)133-076251 [place] [address] 03-07-2025 10:02-0400 Heart rate 64 /min Dr. Federico Vigil MD Work Phone: 2(496)869-043351 [place] [address] 03-07-2025 10:02-0400 Respiratory rate 16 /min Dr. Federico Vigil MD Work Phone: 1(738)210-842951 [place] [address] 03-07-2025 10:02-0400 Systolic blood pressure 142 mm[Hg] Dr. Federico Vigil MD Work Phone: 2(378)552-191551 [place] [address] 01-22-2025 08:33-0400 Body height 177.[address] Federico Vigil MD Work Phone: 7(904)958-868251 [place] [address] 01-22-2025 08:33-0400 Body mass index (BMI) [Ratio] 24.2 kg/m2 Dr. Federico Vigil MD Work Phone: 0(508)731-077351 [place] [address] 01-22-2025 08:33-0400 Body weight 76.[address] Federico Vigil MD Work Phone: 3(859)549-197251 [place] [address] 01-22-2025 08:33-0400 Diastolic blood pressure 57 mm[Hg] Dr. Federico Vigil MD Work Phone: 1(582)514-409851 [place] [address] 01-22-2025 08:33-0400 Heart rate 58 /min Dr. Federico Vigil MD Work Phone: 4(287)316-547951 [place] [address] 01-22-2025 08:33-0400 Respiratory rate 16 /min Dr. Federico Vigil MD Work Phone: 9(491)093-613851 [place] [address] 01-22-2025 08:33-0400 Systolic blood pressure 117 mm[Hg] Dr. Federico Vigil MD Work Phone: 6(040)429-907051 [place] [address] 01-08-2025 07:53-0400 Body height 177.[address] Federico Vigil MD Work Phone: 3(221)538-044451 [place] [address] 01-08-2025 07:53-0400 Body weight 74.[address] Federico Vigil MD Work Phone: 0(176)875-404651 [place] [address] 01-07-2025 08:29-0400 Body mass index (BMI) [Ratio] 23.6 kg/m2 Dr. Federico Vigil MD Work Phone: 2(557)511-389551 [place] [address] 12-11-2024 08:39-0400 Body mass index (BMI) [Ratio] 23.6 kg/m2 Dr. Federico Vigil MD Work Phone: 9(826)205-989551 [place] [address] 12-11-2024 08:39-0400 Body weight 74.[address] Federico Vigil MD Work Phone: 5(387)321-627051 [place] [address] 12-11-2024 08:39-0400 Diastolic blood pressure 74 mm[Hg] Dr. Federico Vigil MD Work Phone: 2(857)221-197051 [place] [address] 12-11-2024 08:39-0400 Heart rate 68 /min Dr. Federico Vigil MD Work Phone: 2(182)381-406351 [place] [address] 12-11-2024 08:39-0400 Respiratory rate 18 /min Dr. Federico Vigil MD Work Phone: 6(223)404-127239 [place] [address] 12-11-2024 08:39-0400 Systolic blood pressure 133 mm[Hg] Dr. Federico Vigil MD Work Phone: 8(886)064-771551 [place] [address] 11-14-2024 13:33-0400 Diastolic blood pressure 80 mm[Hg] Dr. Federico Vigil MD Work Phone: 8(399)242-641151 [place] [address] 11-14-2024 13:33-0400 Systolic blood pressure 150 mm[Hg] Dr. Federico Vigil MD Work Phone: 4(771)985-400051 [place] [address] 11-14-2024 13:01-0400 Body temperature 98 [degF] Dr. Federico Vigil MD Work Phone: 3(187)207-495951 [place] [address] 11-14-2024 13:01-0400 Body weight 79.[address] Federico Vigil MD Work Phone: 2(367)178-923451 [place] [address] 11-14-2024 13:01-0400 Heart rate 69 /min Dr. Federico Vigil MD Work Phone: 2(864)520-721639 [place] [address] 11-14-2024 13:01-0400 Respiratory rate 16 /min Dr. Federico Vigil MD Work Phone: 8(220)288-210151 [place] [address] 11-14-2024 13:01-0400 SaO2% (BldA) [Mass fraction] 97 % Dr. Federico Vigil MD Work Phone: [facility] 09-03-2024 09:46-0500 Body mass index (BMI) [Ratio] 24.36 kg/m2 Ruth Miranda APRN.THRESHING MACHINE OPERATOR Work Phone: [facility] 09-03-2024 09:46-0500 Body temperature 98.2 [degF] Ruth Miranda APRN.THRESHING MACHINE OPERATOR Work Phone: [facility] 09-03-2024 09:46-0500 Body weight 77 kg Ruth Miranda APRN.THRESHING MACHINE OPERATOR Work Phone: [facility] 09-03-2024 09:46-0500 Diastolic blood pressure 70 mm[Hg] Ruth Tannhof BOARD CERTIFIED ARTS THERAPIST.THRESHING MACHINE OPERATOR Work Phone: [facility] 09-03-2024 09:46-0500 Heart rate 76 /min Ruth Tannhof BOARD CERTIFIED ARTS THERAPIST.THRESHING MACHINE OPERATOR Work Phone: [facility] 09-03-2024 09:46-0500 Respiratory rate 16 /min Ruth Tannhof BOARD CERTIFIED ARTS THERAPIST.THRESHING MACHINE OPERATOR Work Phone: [facility] 09-03-2024 09:46-0500 SaO2% (BldA) [Mass fraction] 97 % Ruth Tannhof BOARD CERTIFIED ARTS THERAPIST.THRESHING MACHINE OPERATOR Work Phone: [facility] 09-03-2024 09:46-0500 Systolic blood pressure 106 mm[Hg] Ruth Tannhof BOARD CERTIFIED ARTS THERAPIST.THRESHING MACHINE OPERATOR Work Phone: [facility] 08-29-2024 09:47-0500 Body mass index (BMI) [Ratio] 25.24 kg/m2 Ruth Tannhof BOARD CERTIFIED ARTS THERAPIST.THRESHING MACHINE OPERATOR Work Phone: [facility] 08-29-2024 09:47-0500 Body temperature 97.11 [degF] Ruth Tannhof BOARD CERTIFIED ARTS THERAPIST.THRESHING MACHINE OPERATOR Work Phone: [facility] 08-29-2024 09:47-0500 Body weight 79.8 kg Ruth Tannhof BOARD CERTIFIED ARTS THERAPIST.THRESHING MACHINE OPERATOR Work Phone: [facility] 08-29-2024 09:47-0500 Diastolic blood pressure 90 mm[Hg] Ruth Tannhof BOARD CERTIFIED ARTS THERAPIST.THRESHING MACHINE OPERATOR Work Phone: [facility] 08-29-2024 09:47-0500 Heart rate 62 /min Ruth Tannhof BOARD CERTIFIED ARTS THERAPIST.THRESHING MACHINE OPERATOR Work Phone: [facility] 08-29-2024 09:47-0500 Respiratory rate 16 /min Ruth Tannhof BOARD CERTIFIED ARTS THERAPIST.THRESHING MACHINE OPERATOR Work Phone: [facility] 08-29-2024 09:47-0500 SaO2% (BldA) [Mass fraction] 97 % Ruth Tannhof BOARD CERTIFIED ARTS THERAPIST.THRESHING MACHINE OPERATOR Work Phone: [facility] 08-29-2024 09:47-0500 Systolic blood pressure 140 mm[Hg] Ruth Miranda BOARD CERTIFIED ARTS THERAPIST.THRESHING MACHINE OPERATOR Work Phone: [facility] 08-24-2024 16:27-0500 Diastolic blood pressure 80 mm[Hg] Sumaya Ottoniel BOARD CERTIFIED ARTS THERAPIST.THRESHING MACHINE OPERATOR Work Phone: [facility] 08-24-2024 16:27-0500 Systolic blood pressure 148 mm[Hg] Sumaya Ottoniel BOARD CERTIFIED ARTS THERAPIST.THRESHING MACHINE OPERATOR Work Phone: [facility] 08-24-2024 15:54-0500 Body mass index (BMI) [Ratio] 24.89 kg/m2 Sumaya Ottoniel BOARD CERTIFIED ARTS THERAPIST.THRESHING MACHINE OPERATOR Work Phone: [facility] 08-24-2024 15:54-0500 Body temperature 97 [degF] Sumaya Alcazar BOARD CERTIFIED ARTS THERAPIST.THRESHING MACHINE OPERATOR Work Phone: [facility] 08-24-2024 15:54-0500 Body weight 78.7 kg Sumaya Ottoniel BOARD CERTIFIED ARTS THERAPIST.THRESHING MACHINE OPERATOR Work Phone: [facility] 08-24-2024 15:54-0500 Heart rate 84 /min Sumaya Ottoniel BOARD CERTIFIED ARTS THERAPIST.THRESHING MACHINE OPERATOR Work Phone: [facility] 08-24-2024 15:54-0500 Respiratory rate 18 /min Sumaya Alcazar BOARD CERTIFIED ARTS THERAPIST.THRESHING MACHINE OPERATOR Work Phone: [facility] 08-24-2024 15:54-0500 SaO2% (BldA) [Mass fraction] 99 % Sumaya Ottoniel BOARD CERTIFIED ARTS THERAPIST.THRESHING MACHINE OPERATOR Work Phone: [facility] 08-20-2024 09:42-0500 Body height 177.[address] Federico Vigil MD Work Phone: [facility] 08-20-2024 09:42-0500 Body mass index (BMI) [Ratio] 25 kg/m2 Dr. Federico Vigil MD Work Phone: [facility] 08-20-2024 09:42-0500 Body weight 78.[address] Federico Vigil MD Work Phone: [facility] 08-20-2024 09:42-0500 Diastolic blood pressure 66 mm[Hg] Dr. Federico Vigil MD Work Phone: [facility] 08-20-2024 09:42-0500 Heart rate 75 /min Dr. Federico Vigil MD Work Phone: [facility] 08-20-2024 09:42-0500 Respiratory rate 18 /min Dr. Federico Vigil MD Work Phone: [facility] 08-20-2024 09:42-0500 SaO2% (BldA) [Mass fraction] 98 % Dr. Federico Vigil MD Work Phone: [facility] 08-20-2024 09:42-0500 Systolic blood pressure 117 mm[Hg] Dr. Federico Vigil MD Work Phone: [facility] 07-24-2024 10:31-0500 Body mass index (BMI) [Ratio] 24.58 kg/m2 Federico Vigil MD Work Phone: [facility] 07-24-2024 10:31-0500 Body weight 77.7 kg Federico Vigil MD Work Phone: [facility] 07-24-2024 10:31-0500 Diastolic blood pressure 68 mm[Hg] Federico Vigil MD Work Phone: [facility] 07-24-2024 10:31-0500 Heart rate 74 /min Federico Vigil MD Work Phone: [facility] 07-24-2024 10:31-0500 Respiratory rate 18 /min Federico Vigil MD Work Phone: [facility] 07-24-2024 10:31-0500 Systolic blood pressure 110 mm[Hg] Federico Vigil MD Work Phone: [facility] 06-12-2024 10:21-0500 Diastolic blood pressure 60 mm[Hg] Ruth Miranda BOARD CERTIFIED ARTS THERAPIST.THRESHING MACHINE OPERATOR Work Phone: [facility] 06-12-2024 10:21-0500 Heart rate 72 /min Ruth Tannhof BOARD CERTIFIED ARTS THERAPIST.THRESHING MACHINE OPERATOR Work Phone: [facility] 06-12-2024 10:21-0500 Respiratory rate 20 /min Ruth Tannhof BOARD CERTIFIED ARTS THERAPIST.THRESHING MACHINE OPERATOR Work Phone: [facility] 06-12-2024 10:21-0500 SaO2% (BldA) [Mass fraction] 98 % Ruth Tannhof BOARD CERTIFIED ARTS THERAPIST.THRESHING MACHINE OPERATOR Work Phone: [facility] 06-12-2024 10:21-0500 Systolic blood pressure 120 mm[Hg] Ruth Tannhof BOARD CERTIFIED ARTS THERAPIST.THRESHING MACHINE OPERATOR Work Phone: [facility] 05-30-2024 14:32-0500 Body mass index (BMI) [Ratio] 25.53 kg/m2 Ruth Tannhof BOARD CERTIFIED ARTS THERAPIST.THRESHING MACHINE OPERATOR Work Phone: [facility] 05-30-2024 14:32-0500 Body weight 80.7 kg Ruth Tannhof BOARD CERTIFIED ARTS THERAPIST.THRESHING MACHINE OPERATOR Work Phone: [facility] 05-30-2024 14:32-0500 Diastolic blood pressure 68 mm[Hg] Ruth Tannhof BOARD CERTIFIED ARTS THERAPIST.THRESHING MACHINE OPERATOR Work Phone: [facility] 05-30-2024 14:32-0500 Heart rate 75 /min Ruth Tannhof BOARD CERTIFIED ARTS THERAPIST.THRESHING MACHINE OPERATOR Work Phone: [facility] 05-30-2024 14:32-0500 Respiratory rate 16 /min Ruth Tannhof BOARD CERTIFIED ARTS THERAPIST.THRESHING MACHINE OPERATOR Work Phone: [facility] 05-30-2024 14:32-0500 SaO2% (BldA) [Mass fraction] 98 % Ruth Tannhof BOARD CERTIFIED ARTS THERAPIST.THRESHING MACHINE OPERATOR Work Phone: [facility] 05-30-2024 14:32-0500 Systolic blood pressure 102 mm[Hg] Ruth Tannhof BOARD CERTIFIED ARTS THERAPIST.THRESHING MACHINE OPERATOR Work Phone: [facility] 05-24-2024 09:00-0500 Body mass index (BMI) [Ratio] 25.18 kg/m2 Ruth Tannhof BOARD CERTIFIED ARTS THERAPIST.THRESHING MACHINE OPERATOR Work Phone: [facility] 05-24-2024 09:00-0500 Body temperature 97.59 [degF] Ruth Smithhof BOARD CERTIFIED ARTS THERAPIST.THRESHING MACHINE OPERATOR Work Phone: [facility] 05-24-2024 09:00-0500 Body weight 79.6 kg Ruth Smithhof BOARD CERTIFIED ARTS THERAPIST.THRESHING MACHINE OPERATOR Work Phone: [facility] 05-24-2024 09:00-0500 Diastolic blood pressure 72 mm[Hg] Ruth Tannhof BOARD CERTIFIED ARTS THERAPIST.THRESHING MACHINE OPERATOR Work Phone: [facility] 05-24-2024 09:00-0500 Heart rate 76 /min Ruth Smithhof BOARD CERTIFIED ARTS THERAPIST.THRESHING MACHINE OPERATOR Work Phone: [facility] 05-24-2024 09:00-0500 Respiratory rate 16 /min Ruth Smithhof BOARD CERTIFIED ARTS THERAPIST.THRESHING MACHINE OPERATOR Work Phone: [facility] 05-24-2024 09:00-0500 SaO2% (BldA) [Mass fraction] 98 % Ruth Smithhof BOARD CERTIFIED ARTS THERAPIST.THRESHING MACHINE OPERATOR Work Phone: [facility] 05-24-2024 09:00-0500 Systolic blood pressure 128 mm[Hg] Ruth Smithhof BOARD CERTIFIED ARTS THERAPIST.THRESHING MACHINE OPERATOR Work Phone: [facility] 04-23-2024 08:20-0400 Body mass index (BMI) [Ratio] 25.33 kg/m2 David Lundberg Work Phone: [facility] 04-23-2024 08:20-0400 Body temperature 97.5 [degF] David Tamika Work Phone: [facility] 04-23-2024 08:20-0400 Body weight 80.06 kg David Lundberg Work Phone: [facility] 04-23-2024 08:20-0400 Diastolic blood pressure 70 mm[Hg] David Lundberg Work Phone: [facility] 04-23-2024 08:20-0400 Heart rate 68 /min David Lundberg Work Phone: [facility] 04-23-2024 08:20-0400 SaO2% (BldA) [Mass fraction] 99 % David Lundberg Work Phone: [facility] 04-23-2024 08:20-0400 Systolic blood pressure 159 mm[Hg] David Lundberg Work Phone: [facility] 03-29-2024 07:36-0400 Body mass index (BMI) [Ratio] 25.08 kg/m2 Ruth Tannhof BOARD CERTIFIED ARTS THERAPIST.THRESHING MACHINE OPERATOR Work Phone: [facility] 03-29-2024 07:36-0400 Body weight 79.3 kg Ruth Tannhof BOARD CERTIFIED ARTS THERAPIST.THRESHING MACHINE OPERATOR Work Phone: [facility] 03-29-2024 07:36-0400 Diastolic blood pressure 68 mm[Hg] Ruth Tannhof BOARD CERTIFIED ARTS THERAPIST.THRESHING MACHINE OPERATOR Work Phone: [facility] 03-29-2024 07:36-0400 Heart rate 85 /min Ruth Tannhof BOARD CERTIFIED ARTS THERAPIST.THRESHING MACHINE OPERATOR Work Phone: [facility] 03-29-2024 07:36-0400 Respiratory rate 16 /min Ruth Tannhof BOARD CERTIFIED ARTS THERAPIST.THRESHING MACHINE OPERATOR Work Phone: [facility] 03-29-2024 07:36-0400 SaO2% (BldA) [Mass fraction] 97 % Ruth Tannhof BOARD CERTIFIED ARTS THERAPIST.THRESHING MACHINE OPERATOR Work Phone: [facility] 03-29-2024 07:36-0400 Systolic blood pressure 142 mm[Hg] Ruth Tannhof BOARD CERTIFIED ARTS THERAPIST.THRESHING MACHINE OPERATOR Work Phone: [facility] 02-27-2024 18:40-0400 Body mass index (BMI) [Ratio] 25.08 kg/m2 Federico Vigil MD Work Phone: [facility] 02-27-2024 18:40-0400 Body weight 79.3 kg Federico Vigil MD Work Phone: [facility] 02-27-2024 18:40-0400 Diastolic blood pressure 76 mm[Hg] Federico Vigil MD Work Phone: [facility] 02-27-2024 18:40-0400 Heart rate 78 /min Federico Vigil MD Work Phone: [facility] 02-27-2024 18:40-0400 Respiratory rate 18 /min Federico Vigil MD Work Phone: [facility] 02-27-2024 18:40-0400 Systolic blood pressure 128 mm[Hg] Federico Vigil MD Work Phone: [facility] 01-26-2024 08:52-0400 Body height 177.8 cm Phi Arreguin MD Work Phone: [facility] 01-26-2024 08:52-0400 Body mass index (BMI) [Ratio] 24.39 kg/m2 Phi Arreguin MD Work Phone: [facility] 01-26-2024 08:52-0400 Body weight 77.11 kg Phi Arreguin MD Work Phone: [facility] 01-26-2024 08:52-0400 Diastolic blood pressure 70 mm[Hg] Phi Arreguin MD Work Phone: [facility] 01-26-2024 08:52-0400 Heart rate 64 /min Phi Arreguin MD Work Phone: [facility] 01-26-2024 08:52-0400 Respiratory rate 16 /min Phi Arreguin MD Work Phone: [facility] 01-26-2024 08:52-0400 Systolic blood pressure 130 mm[Hg] Phi Arreguin MD Work Phone: [facility] 01-20-2024 08:51-0400 Body mass index (BMI) [Ratio] 25.05 kg/m2 Federico Vigil MD Work Phone: [facility] 01-20-2024 08:51-0400 Body weight 79.2 kg Federico Vigil MD Work Phone: [facility] 01-20-2024 08:51-0400 Diastolic blood pressure 64 mm[Hg] Federico Vigil MD Work Phone: [facility] 01-20-2024 08:51-0400 Heart rate 60 /min Federico Vigil MD Work Phone: [facility] 01-20-2024 08:51-0400 Respiratory rate 18 /min Federico Vigil MD Work Phone: [facility] 01-20-2024 08:51-0400 Systolic blood pressure 138 mm[Hg] Federico Vigil MD Work Phone: [facility] 01-04-2024 14:55-0400 Body height 177.8 cm Timothy Walker MD Work Phone: [facility] 01-04-2024 14:55-0400 Body mass index (BMI) [Ratio] 24.68 kg/m2 Timothy Walker MD Work Phone: [facility] 01-04-2024 14:55-0400 Body weight 78.02 kg Timothy Walker MD Work Phone: [facility] 01-04-2024 14:55-0400 Diastolic blood pressure 59 mm[Hg] Timothy Walker MD Work Phone: [facility] 01-04-2024 14:55-0400 Heart rate 68 /min Timothy Walker MD Work Phone: [facility] 01-04-2024 14:55-0400 SaO2% (BldA) [Mass fraction] 98 % Timothy Walker MD Work Phone: [facility] 01-04-2024 14:55-0400 Systolic blood pressure 132 mm[Hg] Timothy Walker MD Work Phone: [facility] 12-20-2023 10:45-0400 Body height 177.8 cm P[address] 1 [facility] 12-20-2023 10:45-0400 Body mass index (BMI) [Ratio] 24.39 kg/m2 Pst 1 [facility] 12-20-2023 10:45-0400 Body temperature 97.9 [degF] Pst 1 [facility] 12-20-2023 10:45-0400 Body weight 77.11 kg Pst 1 [facility] 12-20-2023 10:45-0400 Diastolic blood pressure 56 mm[Hg] Pst 1 [facility] 12-20-2023 10:45-0400 Heart rate 61 /min Pst 1 [facility] 12-20-2023 10:45-0400 Respiratory rate 16 /min Pst 1 [facility] 12-20-2023 10:45-0400 SaO2% (BldA) [Mass fraction] 99 % Pst 1 [facility] 12-20-2023 10:45-0400 Systolic blood pressure 127 mm[Hg] Pst 1 [facility] 12-08-2023 15:27-0400 Body height 177.8 cm Phi Arreguin MD Work Phone: 6(696)773-926958 [place] [address] 12-08-2023 15:27-0400 Body mass index (BMI) [Ratio] 23.96 kg/m2 Phi Arreguin MD Work Phone: 5(949)910-166158 [place] [address] 12-08-2023 15:27-0400 Body weight 75.75 kg Phi Arreguin MD Work Phone: 6(274)037-942558 [place] [address] 12-08-2023 15:27-0400 Diastolic blood pressure 70 mm[Hg] Phi Arreguin MD Work Phone: [facility] 12-08-2023 15:27-0400 Heart rate 68 /min Phi Arreguin MD Work Phone: [facility] 12-08-2023 15:27-0400 Respiratory rate 16 /min Phi Arreguin MD Work Phone: [facility] 12-08-2023 15:27-0400 SaO2% (BldA) [Mass fraction] 98 % Phi Arreguin MD Work Phone: [facility] 12-08-2023 15:27-0400 Systolic blood pressure 120 mm[Hg] Phi Arreguin MD Work Phone: [facility] 11-17-2023 16:10-0400 Body height 176.5 cm Phi Arreguin MD Work Phone: [facility] Comment on above: Patient reports. 11-17-2023 16:10-0400 Body mass index (BMI) [Ratio] 24.16 kg/m2 Phi Arreguin MD Work Phone: [facility] 11-17-2023 16:10-0400 Body weight 75.3 kg Phi Arreguin MD Work Phone: [facility] 11-17-2023 16:10-0400 Diastolic blood pressure 70 mm[Hg] Phi Arreguin MD Work Phone: [facility] 11-17-2023 16:10-0400 Heart rate 68 /min Phi Arreguin MD Work Phone: [facility] 11-17-2023 16:10-0400 SaO2% (BldA) [Mass fraction] 98 % Phi Arreguin MD Work Phone: [facility] 11-17-2023 16:10-0400 Systolic blood pressure 130 mm[Hg] Phi Arreguin MD Work Phone: [facility] 10-27-2023 08:16-0400 Body temperature 98.6 [degF] David Lundberg Work Phone: [facility] 10-27-2023 08:16-0400 Body weight 76.66 kg David Lundberg Work Phone: [facility] 10-27-2023 08:16-0400 Diastolic blood pressure 71 mm[Hg] David Lundberg Work Phone: [facility] 10-27-2023 08:16-0400 Heart rate 77 /min David Lundberg Work Phone: [facility] 10-27-2023 08:16-0400 SaO2% (BldA) [Mass fraction] 98 % David Lundberg Work Phone: [facility] 10-27-2023 08:16-0400 Systolic blood pressure 136 mm[Hg] David Lundberg Work Phone: [facility] 09-19-2023 08:55-0500 Diastolic blood pressure 72 mm[Hg] Treatment Wstr Work Phone: [facility] 09-19-2023 08:55-0500 Systolic blood pressure 148 mm[Hg] Treatment Wstr Work Phone: [facility] 09-19-2023 08:18-0500 Body temperature 97.81 [degF] Treatment Wstr Work Phone: [facility] 09-19-2023 08:18-0500 Heart rate 77 /min Treatment [facility] Work Phone: [facility] 09-19-2023 08:18-0500 Respiratory rate 16 /min Treatment [facility] Work Phone: [facility] 09-19-2023 08:18-0500 SaO2% (BldA) [Mass fraction] 97 % [facility] Work Phone: [facility] [facility] 09-16-2023 11:10-0500 Body temperature 97.81 [degF] Treatment Wstr Work Phone: [facility] 09-16-2023 11:10-0500 Diastolic blood pressure 66 mm[Hg] Treatment Wstr Work Phone: [facility] 09-16-2023 11:10-0500 Heart rate 72 /min Treatment Wstr Work Phone: [facility] 09-16-2023 11:10-0500 Respiratory rate 16 /min Treatment Wstr Work Phone: [facility] 09-16-2023 11:10-0500 SaO2% (BldA) [Mass fraction] 99 % Treatment Wstr Work Phone: [facility] 09-16-2023 11:10-0500 Systolic blood pressure 128 mm[Hg] Treatment Wstr Work Phone: [facility] 09-14-2023 10:09-0500 Diastolic blood pressure 74 mm[Hg] Treatment Wstr Work Phone: [facility] 09-14-2023 10:09-0500 Heart rate 70 /min Treatment Wstr Work Phone: [facility] 09-14-2023 10:09-0500 Respiratory rate 16 /min Treatment Wstr Work Phone: [facility] 09-14-2023 10:09-0500 Systolic blood pressure 137 mm[Hg] Treatment Wstr Work Phone: [facility] 09-14-2023 09:30-0500 Body temperature 97.81 [degF] Treatment Wstr Work Phone: [facility] 09-14-2023 09:30-0500 SaO2% (BldA) [Mass fraction] 99 % Treatment Wstr Work Phone: [facility] 09-13-2023 12:59-0500 Body height 177.[address] Federico Vigil Work Phone: [facility] 09-13-2023 12:59-0500 Body mass index (BMI) [Ratio] 23.9 kg/m2 Dr. Federico Vigil Work Phone: [facility] 09-13-2023 12:59-0500 Body weight 75.[address] Federico Vigil Work Phone: [facility] 09-13-2023 12:59-0500 Diastolic blood pressure 68 mm[Hg] Dr. Federico Vigil Work Phone: [facility] 09-13-2023 12:59-0500 Heart rate 68 /min Dr. Federico Vigil Work Phone: [facility] 09-13-2023 12:59-0500 Respiratory rate 16 /min Dr. Federico Vigil Work Phone: [facility] 09-13-2023 12:59-0500 Systolic blood pressure 136 mm[Hg] Dr. Federico Vigil Work Phone: [facility] 09-08-2023 10:48-0500 Body temperature 97.3 [degF] Treatment Wstr Work Phone: [facility] 09-08-2023 10:48-0500 Diastolic blood pressure 64 mm[Hg] Treatment Wstr Work Phone: [facility] 09-08-2023 10:48-0500 Heart rate 67 /min Treatment Wstr Work Phone: [facility] 09-08-2023 10:48-0500 Respiratory rate 18 /min Treatment Wstr Work Phone: [facility] 09-08-2023 10:48-0500 SaO2% (BldA) [Mass fraction] 100 % Treatment Wstr Work Phone: [facility] 09-08-2023 10:48-0500 Systolic blood pressure 119 mm[Hg] Treatment Wstr Work Phone: [facility] 09-02-2023 08:32-0500 Body temperature 96.8 [degF] Sumaya Ottoniel BOARD CERTIFIED ARTS THERAPIST.THRESHING MACHINE OPERATOR Work Phone: [facility] 09-02-2023 08:32-0500 Body weight 79.56 kg Sumaya Alcazar BOARD CERTIFIED ARTS THERAPIST.THRESHING MACHINE OPERATOR Work Phone: [facility] 09-02-2023 08:32-0500 Diastolic blood pressure 68 mm[Hg] Sumaya Ottoniel BOARD CERTIFIED ARTS THERAPIST.THRESHING MACHINE OPERATOR Work Phone: [facility] 09-02-2023 08:32-0500 Heart rate 72 /min Sumaya Ottoniel BOARD CERTIFIED ARTS THERAPIST.THRESHING MACHINE OPERATOR Work Phone: [facility] 09-02-2023 08:32-0500 Respiratory rate 21 /min Sumaya Ottoniel BOARD CERTIFIED ARTS THERAPIST.THRESHING MACHINE OPERATOR Work Phone: [facility] 09-02-2023 08:32-0500 SaO2% (BldA) [Mass fraction] 99 % Sumaya Alcazar BOARD CERTIFIED ARTS THERAPIST.THRESHING MACHINE OPERATOR Work Phone: [facility] 09-02-2023 08:32-0500 Systolic blood pressure 100 mm[Hg] Sumaya Ottoniel BOARD CERTIFIED ARTS THERAPIST.THRESHING MACHINE OPERATOR Work Phone: [facility] 09-01-2023 09:22-0500 Body temperature 97.9 [degF] David Lundberg Work Phone: [facility] 09-01-2023 09:22-0500 Body weight 78.7 kg David Lundberg Work Phone: [facility] 09-01-2023 09:22-0500 Diastolic blood pressure 69 mm[Hg] David Lundberg Work Phone: [facility] 09-01-2023 09:22-0500 Heart rate 61 /min David Lundberg Work Phone: [facility] 09-01-2023 09:22-0500 SaO2% (BldA) [Mass fraction] 99 % David Lundberg Work Phone: [facility] 09-01-2023 09:22-0500 Systolic blood pressure 118 mm[Hg] David Lundberg Work Phone: [facility] 08-22-2023 10:34-0500 Body height 177.2 cm David Lundberg Work Phone: [facility] 08-22-2023 10:34-0500 Body temperature 97.11 [degF] David Lundberg Work Phone: [facility] 08-22-2023 10:34-0500 Body weight 77.56 kg David Lundberg Work Phone: [facility] 08-22-2023 10:34-0500 Diastolic blood pressure 62 mm[Hg] David Lundberg Work Phone: [facility] 08-22-2023 10:34-0500 Heart rate 62 /min David Lundberg Work Phone: [facility] 08-22-2023 10:34-0500 SaO2% (BldA) [Mass fraction] 99 % David Lundberg Work Phone: [facility] 08-22-2023 10:34-0500 Systolic blood pressure 111 mm[Hg] David Lundberg Work Phone: [facility] 07-31-2023 15:38-0500 Body height 177.[address] Federico Vigil Work Phone: 6(597)880-260912 [address] 07-31-2023 15:38-0500 Body mass index (BMI) [Ratio] 24.3 kg/m2 Dr. Federico Vigil Work Phone: 9(019)348-985651 [place] [address] 07-31-2023 15:38-0500 Body temperature 97.2 [degF] Dr. Federico Vigil Work Phone: 8(362)[phone] [place] [address] 07-31-2023 15:38-0500 Body weight 77.[address] Federico Vigil Work Phone: 9(648)284-973151 [place] [address] 07-31-2023 15:38-0500 Diastolic blood pressure 78 mm[Hg] Dr. Federico Vigil Work Phone: 9(940)142-252451 [place] [address] 07-31-2023 15:38-0500 Heart rate 76 /min Dr. Federico Vigil Work Phone: 3(824)532-063951 [place] [address] 07-31-2023 15:38-0500 Respiratory rate 15 /min Dr. Federico Vigil Work Phone: 3(871)[phone] [place] [address] 07-31-2023 15:38-0500 SaO2% (BldA) [Mass fraction] 100 % Dr. Federico Vigil Work Phone: 7(392)026-142812 [address] 07-31-2023 15:38-0500 Systolic blood pressure 150 mm[Hg] Dr. Federico Vigil Work Phone: [facility] 07-15-2023 10:54-0500 Body mass index (BMI) [Ratio] 24.4 kg/m2 Dr. Federico Vigil Work Phone: [facility] 07-15-2023 10:54-0500 Body weight 77.[address] Federico Vigil Work Phone: [facility] 06-22-2023 14:48-0500 Body height 179.1 cm Timothy Walker MD Work Phone: [facility] 06-22-2023 14:48-0500 Body weight 75.75 kg Timothy Walker MD Work Phone: [facility] 06-22-2023 14:48-0500 Diastolic blood pressure 66 mm[Hg] Timothy Walker MD Work Phone: [facility] 06-22-2023 14:48-0500 Heart rate 72 /min Timothy Walker MD Work Phone: [facility] 06-22-2023 14:48-0500 SaO2% (BldA) [Mass fraction] 98 % Timothy Walker MD Work Phone: [facility] 06-22-2023 14:48-0500 Systolic blood pressure 108 mm[Hg] Timothy Walker MD Work Phone: [facility] 06-06-2023 14:52-0500 Body height 179.1 cm Cabrera Mejia MD Work Phone: [facility] 06-06-2023 14:52-0500 Body temperature 96.49 [degF] Cabrera Mejia MD Work Phone: [facility] 06-06-2023 14:52-0500 Body weight 78.47 kg Cabrera Mejia MD Work Phone: [facility] 06-06-2023 14:52-0500 Diastolic blood pressure 58 mm[Hg] Cabrera Mejia MD Work Phone: [facility] 06-06-2023 14:52-0500 Heart rate 68 /min Cabrera Mejia MD Work Phone: [facility] 06-06-2023 14:52-0500 SaO2% (BldA) [Mass fraction] 100 % Cabrera Mejia MD Work Phone: [facility] 06-06-2023 14:52-0500 Systolic blood pressure 112 mm[Hg] Cabrera Mejia MD Work Phone: [facility] 05-19-2023 13:19-0400 Body mass index (BMI) [Ratio] 24.3 kg/m2 Dr. Federico Vigil Work Phone: [facility] 05-19-2023 13:19-0400 Body weight 77.[address] Federico Vigil Work Phone: [facility] 05-19-2023 13:19-0400 Diastolic blood pressure 66 mm[Hg] Dr. Federico Vigil Work Phone: [facility] 05-19-2023 13:19-0400 Heart rate 65 /min Dr. Federico Vigil Work Phone: [facility] 05-19-2023 13:19-0400 Respiratory rate 16 /min Dr. Federico Vigil Work Phone: [facility] 05-19-2023 13:19-0400 Systolic blood pressure 137 mm[Hg] Dr. Federico Vigil Work Phone: [facility] 05-11-2023 01:00-0400 Diastolic blood pressure 73 mm[Hg] [facility] 05-11-2023 01:00-0400 Heart rate 72 /min [facility] 05-11-2023 01:00-0400 Respiratory rate 18 /min [facility] 05-11-2023 01:00-0400 SaO2% (BldA) [Mass fraction] 99 % [facility] 05-11-2023 01:00-0400 Systolic blood pressure 123 mm[Hg] [facility] 05-10-2023 21:46-0400 Body height 177.[address] [facility] 05-10-2023 21:46-0400 Body mass index (BMI) [Ratio] 25.2 kg/m2 [facility] 05-10-2023 21:46-0400 Body temperature 97.9 [degF] [facility] 05-10-2023 21:46-0400 Body weight 79.[address] [facility] 05-09-2023 12:47-0400 Body weight 78.47 kg Ruth Miranda APRN.THRESHING MACHINE OPERATOR Work Phone: [facility] 05-09-2023 12:47-0400 Diastolic blood pressure 50 mm[Hg] Ruth Miranda APRN.THRESHING MACHINE OPERATOR Work Phone: [facility] 05-09-2023 12:47-0400 Heart rate 66 /min Ruth Smithhof BOARD CERTIFIED ARTS THERAPIST.THRESHING MACHINE OPERATOR Work Phone: [facility] 05-09-2023 12:47-0400 Respiratory rate 16 /min Ruth Smithhof BOARD CERTIFIED ARTS THERAPIST.THRESHING MACHINE OPERATOR Work Phone: [facility] 05-09-2023 12:47-0400 SaO2% (BldA) [Mass fraction] 97 % Ruth Smithhof BOARD CERTIFIED ARTS THERAPIST.THRESHING MACHINE OPERATOR Work Phone: [facility] 05-09-2023 12:47-0400 Systolic blood pressure 100 mm[Hg] Ruth Smithhof BOARD CERTIFIED ARTS THERAPIST.THRESHING MACHINE OPERATOR Work Phone: [facility] 04-26-2023 12:56-0400 Body height 177.8 cm Gretel [place] PA-C Work Phone: [facility] 04-26-2023 12:56-0400 Body temperature 97.2 [degF] Gretel [place] PA-C Work Phone: [facility] 04-26-2023 12:56-0400 Body weight 78.47 kg Gretel Luther PA-C Work Phone: [facility] 04-26-2023 12:56-0400 Diastolic blood pressure 64 mm[Hg] Gretel [place] PA-C Work Phone: [facility] 04-26-2023 12:56-0400 Heart rate 61 /min Gretel Luther PA-C Work Phone: [facility] 04-26-2023 12:56-0400 SaO2% (BldA) [Mass fraction] 97 % Gretel [place] PA-C Work Phone: [facility] 04-26-2023 12:56-0400 Systolic blood pressure 132 mm[Hg] Gretel [place] PA-C Work Phone: [facility] 04-17-2023 12:14-0400 Body temperature 97.59 [degF] Ita Villanueva BOARD CERTIFIED ARTS THERAPIST.THRESHING MACHINE OPERATOR Work Phone: [facility] 04-17-2023 12:14-0400 Body weight 80.56 kg Ita Villanueva APRN.THRESHING MACHINE OPERATOR Work Phone: [facility] 04-17-2023 12:14-0400 Diastolic blood pressure 62 mm[Hg] Ita Villanueva BOARD CERTIFIED ARTS THERAPIST.THRESHING MACHINE OPERATOR Work Phone: [facility] 04-17-2023 12:14-0400 Heart rate 60 /min Ita Villanueva APRN.THRESHING MACHINE OPERATOR Work Phone: [facility] 04-17-2023 12:14-0400 Respiratory rate 16 /min Ita Villanueva BOARD CERTIFIED ARTS THERAPIST.THRESHING MACHINE OPERATOR Work Phone: [facility] 04-17-2023 12:14-0400 SaO2% (BldA) [Mass fraction] 99 % Ita Villanueva APRN.THRESHING MACHINE OPERATOR Work Phone: [facility] 04-17-2023 12:14-0400 Systolic blood pressure 152 mm[Hg] Ita Villanueva BOARD CERTIFIED ARTS THERAPIST.THRESHING MACHINE OPERATOR Work Phone: [facility] 03-29-2023 14:54-0400 Body height 177.8 cm Malathi Galeas BOARD CERTIFIED ARTS THERAPIST.THRESHING MACHINE OPERATOR Work Phone: [facility] 03-29-2023 14:54-0400 Body weight 78.83 kg Malathi Galeas APRN.THRESHING MACHINE OPERATOR Work Phone: [facility] 03-29-2023 14:54-0400 Diastolic blood pressure 49 mm[Hg] Malathi Galeas BOARD CERTIFIED ARTS THERAPIST.THRESHING MACHINE OPERATOR Work Phone: [facility] 03-29-2023 14:54-0400 Heart rate 66 /min Malathi Galeas BOARD CERTIFIED ARTS THERAPIST.THRESHING MACHINE OPERATOR Work Phone: [facility] 03-29-2023 14:54-0400 SaO2% (BldA) [Mass fraction] 96 % Malathi Galeas BOARD CERTIFIED ARTS THERAPIST.THRESHING MACHINE OPERATOR Work Phone: [facility] 03-29-2023 14:54-0400 Systolic blood pressure 132 mm[Hg] Malathi Galeas BOARD CERTIFIED ARTS THERAPIST.THRESHING MACHINE OPERATOR Work Phone: [facility] 01-17-2023 15:03-0400 Body weight 76.66 kg Federico Vigil MD Work Phone: [facility] 01-17-2023 15:03-0400 Diastolic blood pressure 60 mm[Hg] Federico Vigil MD Work Phone: [facility] 01-17-2023 15:03-0400 Heart rate 80 /min Federico Vigil MD Work Phone: [facility] 01-17-2023 15:03-0400 Respiratory rate 16 /min Federico Vigil MD Work Phone: [facility] 01-17-2023 15:03-0400 Systolic blood pressure 122 mm[Hg] Federico Vigil MD Work Phone: [facility] 12-25-2022 10:23-0400 Body temperature 98.1 [degF] Dr. Federico Vigil Work Phone: [facility] 12-25-2022 10:23-0400 Diastolic blood pressure 65 mm[Hg] Dr. Federico Vigil Work Phone: [facility] 12-25-2022 10:23-0400 Heart rate 69 /min Dr. Federico Vigil Work Phone: [facility] 12-25-2022 10:23-0400 Respiratory rate 18 /min Dr. Federico Vigil Work Phone: [facility] 12-25-2022 10:23-0400 SaO2% (BldA) [Mass fraction] 99 % Dr. Federico Vigil Work Phone: [facility] 12-25-2022 10:23-0400 Systolic blood pressure 142 mm[Hg] Dr. Federico Vigil Work Phone: [facility] 12-25-2022 06:29-0400 Body height 177.[address] Federico Vigil Work Phone: [facility] 12-25-2022 06:29-0400 Body mass index (BMI) [Ratio] 25.7 kg/m2 Dr. Federico Vigil Work Phone: [facility] 12-25-2022 06:29-0400 Body weight 81.[address] Federico Vigil Work Phone: [facility] 11-29-2022 09:33-0400 Body height 177.8 cm Timothy Walker MD Work Phone: [facility] 11-29-2022 09:33-0400 Body weight 80.02 kg Timothy Walker MD Work Phone: [facility] 11-29-2022 09:33-0400 Diastolic blood pressure 69 mm[Hg] Timothy Walker MD Work Phone: [facility] 11-29-2022 09:33-0400 Heart rate 65 /min Timothy Walker MD Work Phone: [facility] 11-29-2022 09:33-0400 SaO2% (BldA) [Mass fraction] 99 % Timothy Walker MD Work Phone: [facility] 11-29-2022 09:33-0400 Systolic blood pressure 122 mm[Hg] Timothy Walker MD Work Phone: [facility] 11-04-2022 09:52-0400 Body height 177.[address] Federico Vigil Work Phone: [facility] 11-04-2022 09:52-0400 Body mass index (BMI) [Ratio] 25 kg/m2 Dr. Federico Vigil Work Phone: [facility] 11-04-2022 09:52-0400 Body weight 78.[address] Federico Vigil Work Phone: [facility] 11-04-2022 09:52-0400 Diastolic blood pressure 75 mm[Hg] Dr. Federico Vigil Work Phone: [facility] 11-04-2022 09:52-0400 Heart rate 95 /min Dr. Federico Vigil Work Phone: [facility] 11-04-2022 09:52-0400 Respiratory rate 16 /min Dr. Federico Vigil Work Phone: [facility] 11-04-2022 09:52-0400 Systolic blood pressure 155 mm[Hg] Dr. Federico Vigil Work Phone: [facility] 10-27-2022 10:50-0400 Body weight 81.65 kg Ruth Tannhof BOARD CERTIFIED ARTS THERAPIST.THRESHING MACHINE OPERATOR Work Phone: [facility] 10-27-2022 10:50-0400 Diastolic blood pressure 88 mm[Hg] Ruth Tannhof BOARD CERTIFIED ARTS THERAPIST.THRESHING MACHINE OPERATOR Work Phone: [facility] 10-27-2022 10:50-0400 Heart rate 83 /min Ruth Tannhof BOARD CERTIFIED ARTS THERAPIST.THRESHING MACHINE OPERATOR Work Phone: [facility] 10-27-2022 10:50-0400 Respiratory rate 16 /min Ruth Tannhof BOARD CERTIFIED ARTS THERAPIST.THRESHING MACHINE OPERATOR Work Phone: [facility] 10-27-2022 10:50-0400 SaO2% (BldA) [Mass fraction] 100 % Ruth Tannhof BOARD CERTIFIED ARTS THERAPIST.THRESHING MACHINE OPERATOR Work Phone: [facility] 10-27-2022 10:50-0400 Systolic blood pressure 130 mm[Hg] Ruth Tannhof BOARD CERTIFIED ARTS THERAPIST.THRESHING MACHINE OPERATOR Work Phone: [facility] 10-12-2022 09:01-0400 Body mass index (BMI) [Ratio] 25.5 kg/m2 Dr. Federico Vigil Work Phone: [facility] 10-12-2022 09:01-0400 Body weight 80.[address] Federico Vigil Work Phone: [facility] 10-12-2022 09:01-0400 Diastolic blood pressure 72 mm[Hg] Dr. Federico Vigil Work Phone: [facility] 10-12-2022 09:01-0400 Heart rate 86 /min Dr. Federico Vigil Work Phone: [facility] 10-12-2022 09:01-0400 Respiratory rate 16 /min Dr. Federico Vigil Work Phone: [facility] 10-12-2022 09:01-0400 Systolic blood pressure 118 mm[Hg] Dr. Federico Vigil Work Phone: [facility] 10-07-2022 12:44-0400 Body temperature 98.3 [degF] Dr. Federico Vigil Work Phone: [facility] 10-07-2022 12:44-0400 Diastolic blood pressure 81 mm[Hg] Dr. Federico Vigil Work Phone: [facility] 10-07-2022 12:44-0400 Heart rate 92 /min Dr. Federico Vigil Work Phone: [facility] 10-07-2022 12:44-0400 Respiratory rate 16 /min Dr. Federico Vigil Work Phone: [facility] 10-07-2022 12:44-0400 SaO2% (BldA) [Mass fraction] 97 % Dr. Federico Vigil Work Phone: [facility] 10-07-2022 12:44-0400 Systolic blood pressure 119 mm[Hg] Dr. Federico Vigil Work Phone: [facility] 10-06-2022 08:30-0400 Body weight 79.[address] Federico Vigil Work Phone: [facility] 10-05-2022 06:58-0400 Body mass index (BMI) [Ratio] 25.2 kg/m2 Dr. Federico Vigil Work Phone: [facility] 09-27-2022 08:55-0400 Body temperature 98.49 [degF] Ita Villanueva APRN.THRESHING MACHINE OPERATOR Work Phone: [facility] 09-27-2022 08:55-0400 Body weight 80.47 kg Ita Villanueva APRN.THRESHING MACHINE OPERATOR Work Phone: [facility] 03-13-2023 08:55-0400 Diastolic blood pressure 62 mm[Hg] Ita Villanueva APRN.THRESHING MACHINE OPERATOR Work Phone: [facility] 09-27-2022 08:55-0400 Heart rate 77 /min Ita Villanueva APRN.THRESHING MACHINE OPERATOR Work Phone: [facility] 09-27-2022 08:55-0400 Respiratory rate 18 /min Ita Villanueva APRN.THRESHING MACHINE OPERATOR Work Phone: [facility] 09-27-2022 08:55-0400 SaO2% (BldA) [Mass fraction] 98 % Ita Villanueva APRN.THRESHING MACHINE OPERATOR Work Phone: [facility] 09-27-2022 08:55-0400 Systolic blood pressure 126 mm[Hg] Ita Villanueva APRN.THRESHING MACHINE OPERATOR Work Phone: [facility] 09-13-2022 11:36-0500 Body height 177.[address] Federico Vigil Work Phone: [facility] 09-13-2022 11:28-0500 Body mass index (BMI) [Ratio] 25.2 kg/m2 Dr. Federico Vigil Work Phone: [facility] 09-13-2022 11:28-0500 Body weight 79.[address] Federico Vigil Work Phone: [facility] 09-13-2022 11:28-0500 Diastolic blood pressure 74 mm[Hg] Dr. Federico Vigil Work Phone: [facility] 09-13-2022 11:28-0500 Heart rate 90 /min Dr. Federico Vigil Work Phone: [facility] 09-13-2022 11:28-0500 Respiratory rate 18 /min Dr. Federico Vigil Work Phone: [facility] 09-13-2022 11:28-0500 SaO2% (BldA) [Mass fraction] 99 % Dr. Federico Vigil Work Phone: [facility] 09-13-2022 11:28-0500 Systolic blood pressure 175 mm[Hg] Dr. Federico Vigil Work Phone: [facility] 08-05-2022 10:51-0500 Body weight 81.19 kg Ruth Tannhof BOARD CERTIFIED ARTS THERAPIST.THRESHING MACHINE OPERATOR Work Phone: [facility] 08-05-2022 10:51-0500 Diastolic blood pressure 70 mm[Hg] Ruth Tannhof BOARD CERTIFIED ARTS THERAPIST.THRESHING MACHINE OPERATOR Work Phone: [facility] 08-05-2022 10:51-0500 Heart rate 69 /min Ruth Tannhof BOARD CERTIFIED ARTS THERAPIST.THRESHING MACHINE OPERATOR Work Phone: [facility] 08-05-2022 10:51-0500 Respiratory rate 16 /min Ruth Tannhof BOARD CERTIFIED ARTS THERAPIST.THRESHING MACHINE OPERATOR Work Phone: [facility] 08-05-2022 10:51-0500 SaO2% (BldA) [Mass fraction] 97 % Ruth Tannhof BOARD CERTIFIED ARTS THERAPIST.THRESHING MACHINE OPERATOR Work Phone: [facility] 08-05-2022 10:51-0500 Systolic blood pressure 124 mm[Hg] Ruth Tannhof BOARD CERTIFIED ARTS THERAPIST.THRESHING MACHINE OPERATOR Work Phone: [facility] 08-01-2022 09:31-0500 Body temperature 97 [degF] Royce Pendlebury BOARD CERTIFIED ARTS THERAPIST.THRESHING MACHINE OPERATOR Work Phone: [facility] 08-01-2022 09:31-0500 Body weight 83.28 kg Royce Pendlebury BOARD CERTIFIED ARTS THERAPIST.THRESHING MACHINE OPERATOR Work Phone: [facility] 08-01-2022 09:31-0500 Diastolic blood pressure 70 mm[Hg] Royce Pendlebury BOARD CERTIFIED ARTS THERAPIST.THRESHING MACHINE OPERATOR Work Phone: [facility] 08-01-2022 09:31-0500 Heart rate 68 /min Royce Pendlebury BOARD CERTIFIED ARTS THERAPIST.THRESHING MACHINE OPERATOR Work Phone: [facility] 08-01-2022 09:31-0500 Respiratory rate 18 /min Royce [place] BOARD CERTIFIED ARTS THERAPIST.THRESHING MACHINE OPERATOR Work Phone: [facility] 08-01-2022 09:31-0500 SaO2% (BldA) [Mass fraction] 99 % Royce Farfanbury BOARD CERTIFIED ARTS THERAPIST.THRESHING MACHINE OPERATOR Work Phone: [facility] 08-01-2022 09:31-0500 Systolic blood pressure 148 mm[Hg] Royce [place] BOARD CERTIFIED ARTS THERAPIST.THRESHING MACHINE OPERATOR Work Phone: [facility] 07-29-2022 10:13-0500 Body temperature 98.2 [degF] Ruth Tannhof BOARD CERTIFIED ARTS THERAPIST.THRESHING MACHINE OPERATOR Work Phone: [facility] 07-29-2022 10:13-0500 Body weight 81.65 kg Ruth Tannhof BOARD CERTIFIED ARTS THERAPIST.THRESHING MACHINE OPERATOR Work Phone: [facility] 07-29-2022 10:13-0500 Diastolic blood pressure 72 mm[Hg] Ruth Tannhof BOARD CERTIFIED ARTS THERAPIST.THRESHING MACHINE OPERATOR Work Phone: [facility] 07-29-2022 10:13-0500 Heart rate 60 /min Ruth Tannhof BOARD CERTIFIED ARTS THERAPIST.THRESHING MACHINE OPERATOR Work Phone: [facility] 07-29-2022 10:13-0500 Respiratory rate 16 /min Ruth Tannhof BOARD CERTIFIED ARTS THERAPIST.THRESHING MACHINE OPERATOR Work Phone: [facility] 07-29-2022 10:13-0500 SaO2% (BldA) [Mass fraction] 96 % Ruth Tannhof BOARD CERTIFIED ARTS THERAPIST.THRESHING MACHINE OPERATOR Work Phone: [facility] 07-29-2022 10:13-0500 Systolic blood pressure 140 mm[Hg] Ruth Tannhof BOARD CERTIFIED ARTS THERAPIST.THRESHING MACHINE OPERATOR Work Phone: [facility] 07-21-2022 08:20-0500 Body weight 82.56 kg Ruth Tannhof BOARD CERTIFIED ARTS THERAPIST.THRESHING MACHINE OPERATOR Work Phone: [facility] 07-21-2022 08:20-0500 Diastolic blood pressure 60 mm[Hg] Ruth Tannhof BOARD CERTIFIED ARTS THERAPIST.THRESHING MACHINE OPERATOR Work Phone: [facility] 07-21-2022 08:20-0500 Heart rate 75 /min Ruth Tannhof BOARD CERTIFIED ARTS THERAPIST.THRESHING MACHINE OPERATOR Work Phone: [facility] 07-21-2022 08:20-0500 Respiratory rate 16 /min Ruth Tannhof BOARD CERTIFIED ARTS THERAPIST.THRESHING MACHINE OPERATOR Work Phone: [facility] 07-21-2022 08:20-0500 SaO2% (BldA) [Mass fraction] 96 % Ruth Tannhof BOARD CERTIFIED ARTS THERAPIST.THRESHING MACHINE OPERATOR Work Phone: [facility] 07-21-2022 08:20-0500 Systolic blood pressure 130 mm[Hg] Ruth Tannhof BOARD CERTIFIED ARTS THERAPIST.THRESHING MACHINE OPERATOR Work Phone: [facility] 07-03-2022 23:02-0500 Body height 177.[address] [facility] Work Phone: 07-03-2022 23:02-0500 Body mass index (BMI) [Ratio] 25.2 kg/m2 [facility] 07-03-2022 23:02-0500 Body temperature 97.1 [degF] [facility] 07-03-2022 23:02-0500 Body weight 79.[address] [facility] 07-03-2022 23:02-0500 Diastolic blood pressure 66 mm[Hg] [facility] 07-03-2022 23:02-0500 Heart rate 88 /min [facility] 07-03-2022 23:02-0500 Respiratory rate 16 /min [facility] 07-03-2022 23:02-0500 SaO2% (BldA) [Mass fraction] 100 % [facility] 07-03-2022 23:02-0500 Systolic blood pressure 177 mm[Hg] [facility] 04-28-2022 10:57-0400 Diastolic blood pressure 66 mm[Hg] Ruth Tannhof BOARD CERTIFIED ARTS THERAPIST.THRESHING MACHINE OPERATOR Work Phone: [facility] 04-28-2022 10:57-0400 Systolic blood pressure 134 mm[Hg] Ruth Tannhof BOARD CERTIFIED ARTS THERAPIST.THRESHING MACHINE OPERATOR Work Phone: [facility] 04-28-2022 10:55-0400 Body weight 79.83 kg Ruth Tannhof BOARD CERTIFIED ARTS THERAPIST.THRESHING MACHINE OPERATOR Work Phone: [facility] 04-28-2022 10:55-0400 Heart rate 75 /min Ruth Tannhof BOARD CERTIFIED ARTS THERAPIST.THRESHING MACHINE OPERATOR Work Phone: [facility] 04-28-2022 10:55-0400 Respiratory rate 20 /min Ruth Tannhof BOARD CERTIFIED ARTS THERAPIST.THRESHING MACHINE OPERATOR Work Phone: [facility] 04-28-2022 10:55-0400 SaO2% (BldA) [Mass fraction] 98 % Ruth Tannhof BOARD CERTIFIED ARTS THERAPIST.THRESHING MACHINE OPERATOR Work Phone: [facility] 04-15-2022 11:40-0400 Body temperature 97 [degF] Kinga Praisler-Wood BOARD CERTIFIED ARTS THERAPIST.THRESHING MACHINE OPERATOR Work Phone: [facility] 04-15-2022 11:40-0400 Body weight 82.56 kg Kinga Praisler-Wood BOARD CERTIFIED ARTS THERAPIST.THRESHING MACHINE OPERATOR Work Phone: [facility] 04-15-2022 11:40-0400 Diastolic blood pressure 84 mm[Hg] Kinga Praisler-Wood BOARD CERTIFIED ARTS THERAPIST.THRESHING MACHINE OPERATOR Work Phone: [facility] 04-15-2022 11:40-0400 Heart rate 81 /min Kinga Praisler-Wood BOARD CERTIFIED ARTS THERAPIST.THRESHING MACHINE OPERATOR Work Phone: [facility] 04-15-2022 11:40-0400 Respiratory rate 18 /min Kinga Praisler-Wood BOARD CERTIFIED ARTS THERAPIST.THRESHING MACHINE OPERATOR Work Phone: [facility] 04-15-2022 11:40-0400 SaO2% (BldA) [Mass fraction] 98 % Kinga Praisler-Wood BOARD CERTIFIED ARTS THERAPIST.THRESHING MACHINE OPERATOR Work Phone: [facility] 04-15-2022 11:40-0400 Systolic blood pressure 168 mm[Hg] Kinga Praisler-Wood BOARD CERTIFIED ARTS THERAPIST.THRESHING MACHINE OPERATOR Work Phone: [facility] 03-04-2022 09:54-0400 Body height 179.1 cm Phi Arreguin MD Work Phone: [facility] 03-04-2022 09:54-0400 Body weight 79.38 kg Phi Arreguin MD Work Phone: [facility] 03-04-2022 09:54-0400 Diastolic blood pressure 70 mm[Hg] Phi Arreguin MD Work Phone: [facility] 03-04-2022 09:54-0400 Heart rate 72 /min Phi Arreguin MD Work Phone: [facility] 03-04-2022 09:54-0400 Respiratory rate 16 /min Phi Arreguin MD Work Phone: [facility] 03-04-2022 09:54-0400 Systolic blood pressure 132 mm[Hg] Phi Arreguin MD Work Phone: [facility] 01-15-2022 09:29-0400 Body weight 80.74 kg Ruth Miranda BOARD CERTIFIED ARTS THERAPIST.THRESHING MACHINE OPERATOR Work Phone: [facility] 01-15-2022 09:29-0400 Diastolic blood pressure 68 mm[Hg] Ruth Smithhof BOARD CERTIFIED ARTS THERAPIST.THRESHING MACHINE OPERATOR Work Phone: [facility] 01-15-2022 09:29-0400 Heart rate 59 /min Ruth Smithhof BOARD CERTIFIED ARTS THERAPIST.THRESHING MACHINE OPERATOR Work Phone: [facility] 01-15-2022 09:29-0400 Respiratory rate 16 /min Ruth Smithhof BOARD CERTIFIED ARTS THERAPIST.THRESHING MACHINE OPERATOR Work Phone: [facility] 01-15-2022 09:29-0400 SaO2% (BldA) [Mass fraction] 98 % Ruth Smithhof BOARD CERTIFIED ARTS THERAPIST.THRESHING MACHINE OPERATOR Work Phone: [facility] 01-15-2022 09:29-0400 Systolic blood pressure 140 mm[Hg] Ruth Smithhof BOARD CERTIFIED ARTS THERAPIST.THRESHING MACHINE OPERATOR Work Phone: [facility] NEGATED: Highlighted [id number] 12:27-0500 BMI (Body Mass Index) 24.77 kg/m2 [facility] Work Phone: NEGATED: Highlighted [id number] 12:27-0500 BP Diastolic 84 mm[Hg] [facility] Work Phone: NEGATED: Highlighted [id number] 12:27-0500 BP Systolic 134 mm[Hg] Tita Vernelltel [facility] Work Phone: NEGATED: Highlighted [id number] 12:27-0500 Height 177.8 cm [place] Vernelltel [facility] Work Phone: NEGATED: Highlighted [id number] 12:27-0500 Height 178 cm [place]tel [facility] Work Phone: NEGATED: Highlighted [id number] 12:27-0500 Pulse (Heart Rate) 85 /min Itta Adele [facility] Work Phone: NEGATED: Highlighted [id number] 12:27-0500 Weight 78.02 kg [place] Vernellte [facility] Work Phone: NEGATED: Highlighted [id number] 12:27-0500 Weight 78 kg [place]tel [facility] Work Phone: Encounters Encounter Date Encounter Type Care Provider Facility Start: 05-23-2025 ambulatory Lavelle Del Cid [facility] Start: 05-21-2025 ambulatory Michael Chi Maikel Facility:[facility] Start: 03-27-2025 End: 03-27-[address] Michael Ko MD Work Phone: -Laboratory Start: 03-27-2025 End: 03-27-2025 Patient encounter procedure Abram Mckeon CONTROL OPERATOR-C -Laboratory Work Phone: Start: 03-27-2025 End: 03-27-2025 ambulatory Michael Chi Maikel Facility:[facility] Start: 03-07-2025 End: 03-07-[address] Lavelle Del Cid MD -[facility] Work Phone: Start: 03-07-2025 End: 03-07-[address] Federico Vigil MD Work Phone: -[facility] Start: 02-01-2025 End: 02-01-[address] Federico Vigil MD Work Phone: -[facility] Start: 02-01-2025 End: 02-01-[address] Juan Oliver MD -[facility] Work Phone: Start: 02-01-2025 End: 02-01-2025 ambulatory Juan Oliver Facility:[facility] Start: 01-22-2025 End: 01-22-2025 Patient encounter procedure Abram Mckeon NP-Juve -[facility] Work Phone: Comment on above: Population Health Na vigation Outreach [facility] Start: 01-22-2025 End: 01-22-[address] Federico Vigil MD Work Phone: -[facility] Start: 01-21-2025 End: 01-21-[address] Federico Vigil MD Work Phone: -Laboratory Start: 01-21-2025 End: 01-21-2025 Patient encounter procedure Abram LEON -Laboratory Work Phone: Start: 01-21-2025 End: 01-21-2025 ambulatory Michael Chi Maikel Facility:[facility] Start: 01-08-2025 End: 01-08-2025 Admission to same day surgery center Dr. Osbaldo Vernon MD -Program Planner/Special Procedures Work Phone: Start: 01-08-2025 End: 01-08-[address] Federico Vigil MD Work Phone: [facility] Work Phone: Start: 12-13-2024 End: 12-13-[address] Federico Vigil MD Work Phone: [facility] Work Phone: Start: 12-13-2024 End: 12-13-[address] Michael Ko MD -Outpatient Bone Densitometry Work Phone: Start: 12-12-2024 Non-patient / Non-visit Dr. Miller polk MD -[facility] Start: 12-12-2024 End: 12-13-[address] Federico Vigil MD Work Phone: [facility] Work Phone: Start: 12-12-2024 End: 12-12-2024 Patient encounter procedure Phoebe WESLEY -Cardiovascular Services Work Phone: Start: 12-11-2024 End: 12-11-[address] Osbaldo Vernon MD -[facility] Work Phone: Start: 12-11-2024 End: 12-11-[address] Federico Vigil MD Work Phone: [facility] Work Phone: Start: 12-11-2024 End: 12-12-[address] Federico Vigil MD Work Phone: [facility] Work Phone: Start: 12-11-2024 End: 12-11-[address] Michael Ko MD -Laboratory Work Phone: Start: 12-11-2024 End: 12-11-2024 ambulatory Michael Ko Facility:[facility] Start: 11-29-2024 End: 11-29-[address] Federico Vigil MD Work Phone: [facility] Work Phone: Start: 11-29-2024 End: 11-29-[address] Osbaldo Vernon MD -Laboratory Work Phone: Start: 11-28-2024 Non-patient / Non-visit Dr. Osbaldo ortiz MD -[facility] Start: 11-28-2024 End: 11-29-[address] Federico Vigil MD Work Phone: [facility] Work Phone: Start: 11-28-2024 End: 11-28-2024 Patient encounter procedure Karine WESLEY -Cardiovascular Services Work Phone: Start: 11-27-2024 End: 11-28-[address] Federico Vigil MD Work Phone: [facility] Work Phone: Start: 11-27-2024 End: 11-27-[address] Juan Oliver MD -Laboratory Work Phone: Start: 11-27-2024 End: 11-27-2024 ambulatory Juan Oliver Facility:[facility] Start: 11-21-2024 End: 11-21-[address] Federico Vigil MD Work Phone: [facility] Work Phone: Start: 11-21-2024 End: 11-21-[address] Juan Oliver MD -Radiology, [facility] Work Phone: Start: 11-21-2024 End: 11-21-2024 ambulatory Federico Vigil Facility:[facility] Start: 11-14-2024 End: 11-14-2024 Patient encounter procedure Phoebe WESLEY -[facility] Work Phone: Start: 11-14-2024 End: 11-14-2024 ambulatory Federico Vigil Facility:[facility] Start: 11-09-2024 End: 11-09-2024 ambulatory SELF Facility:[facility] Start: 10-12-2024 End: 10-12-2024 ambulatory PHANI RAJAN Facility:[facility] Start: 10-12-2024 End: 10-12-2024 Patient encounter procedure Phani Rajan BOARD CERTIFIED ARTS THERAPIST.THRESHING MACHINE OPERATOR Work Phone: [facility] Comment on above: APPOINTMENT CANCELLE D (Primary Dx) Start: 10-12-2024 End: 10-12-2024 Telemedicine consultation with patient Phani Rajan THRESHING MACHINE OPERATOR Work Phone: [facility] [place] Start: 09-14-2024 End: 09-14-[address] Hang Pool MD -[facility] Work Phone: Start: 09-14-2024 End: 09-14-2024 ambulatory [facility] Facility:[facility] Start: 09-03-2024 End: 09-03-2024 Follow-up encounter Ruth Miranda APRN.THRESHING MACHINE OPERATOR Work Phone: [facility] [place] Start: 09-03-2024 End: 09-03-2024 Subsequent hospital visit by physician Jamel Hugh [facility] [place] Work Phone: Radiology Comment on above: Acute cough [R05.1] Start: 09-03-2024 End: 09-03-2024 Office outpatient visit 15 minutes Ruth Miranda APRN.THRESHING MACHINE OPERATOR Work Phone: [facility] Comment on above: URI, acute (Primary Dx); Acute cough Start: 09-03-2024 End: 09-03-2024 [facility] Facility:[facility] Start: 08-30-2024 End: 10-30-2024 Follow-up encounter Ruth Miranda APRN.CNP [facility] [place] Start: 08-29-2024 End: 08-29-2024 ambulatory [facility] Facility:[facility] Start: 08-29-2024 End: 08-29-2024 Office outpatient visit 25 minutes Ruth Miranda APRN.THRESHING MACHINE OPERATOR Work Phone: [facility] Comment on above: Chronic gout of left knee, unspecified cause (Primary Dx) Start: 08-29-2024 End: 08-29-2024 ambulatory RUTH MIRANDA Facility:[facility] Start: 08-24-2024 End: 08-24-2024 Subsequent hospital visit by physician Jamel Hugh [facility] [place] Work Phone: Radiology Comment on above: Acute pain of right knee [M25.561] Start: 08-24-2024 End: 08-24-2024 ambulatory [facility] Facility:[facility] Start: 08-24-2024 End: 08-24-2024 Patient encounter procedure Sumaya King NITA Work Phone: [facility] Comment on above: Acute pain of right knee (Primary Dx) Start: 08-20-2024 End: 08-20-2024 Patient encounter procedure Karine Brasher CT -[facility] Work Phone: Start: 08-20-2024 End: 08-20-2024 ambulatory [facility] Facility:[facility] Start: 08-02-2024 End: 08-02-2024 Refill Federico Vigil MD Work Phone: [facility] Comment on above: Refill Request Start: 07-24-2024 End: 07-24-2024 [facility] Facility:[facility] Start: 07-24-2024 End: 07-24-2024 Patient encounter procedure Federico Vigil MD Work Phone: [facility] Comment on above: Hyperlipidemia, unsp ecified hyperlipidemia type (Primary Dx); Primary hypertension; Gout involving toe of right foot, unspecified cause, unspecified chronicity; PAD (peripheral artery disease) (HCC); Atrial fibrillation, unspecified type (HCC); Coronary artery disease involving [place] coronary artery of [place] heart with angina pectoris (HCC); Iron deficiency anemia, unspecified iron deficiency anemia type; Inflammatory polyarthropathy (HCC); Ischemic cardiomyopathy; Bilateral leg edema; Cardiomyopathy, unspecified type (HCC); Elevated glucose; Non-traumatic compression fracture of L5 lumbar vertebra with routine healing, subsequent encounter Start: 07-22-2024 [facility] Start: 07-19-2024 End: 07-19-2024 ambulatory [facility] Facility:[facility] Start: 07-16-2024 End: 07-16-2024 Telephone encounter David Lundberg Work Phone: Hematology/Oncology Comment on above: Results Start: 07-06-2024 End: 07-06-2024 ambulatory [facility] Facility:[facility] Start: 07-02-2024 End: 07-02-2024 Telephone encounter Federico Vigil MD Work Phone: [facility] [place] Comment on above: PT Plan of Care; Med ication Clarification Request Start: 06-29-2024 End: 07-02-2024 Telephone encounter Federico Vigil MD Work Phone: [facility] [place] Comment on above: Agree to follow for [facility] PT OT Start: 06-27-2024 ambulatory Federico Vigil Facilit y:[facility] Start: 06-27-2024 End: 06-29-2024 Evaluation and management of inpatient Federico Vigil Facility:[facility] Start: 06-27-2024 ambulatory Federico Vigil Facilit y:[facility] Start: 06-20-2024 ambulatory Federico Vigil Facilit y:[facility] Start: 06-20-2024 End: 06-21-2024 ambulatory Federico Beltrán Facility:[facility] Start: 06-20-2024 ambulatory Federico Vigil Facilit y:[facility] Start: 06-18-2024 End: 07-06-2024 Telephone encounter Ruth Miranda APRN.THRESHING MACHINE OPERATOR Work Phone: [facility] [place] Comment on above: Results (labs) Start: 06-18-2024 End: 06-18-2024 ambulatory FEDERICO [facility] Facility:[facility] Start: 06-15-2024 End: 06-15-2024 ambulatory FEDERICO Linares [facility] Facility:[facility] Start: 06-13-2024 End: 06-13-2024 Telephone encounter Federico Vigil MD Work Phone: [facility] [place] Comment on above: Results and Form Start: 06-12-2024 End: 06-12-2024 Patient encounter procedure Ruth Miranda APRN.THRESHING MACHINE OPERATOR Work Phone: [facility] [place] Comment on above: Preop examination (P rimary Dx); Chronic 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; GERD without esophagitis; BENIGN HYPERTENSION; Paroxysmal atrial fibrillation (HCC); Coronary artery disease involving [place] coronary artery of [place] heart with angina pectoris (HCC); Mixed hyperlipidemia; Gout involving toe of right foot, unspecified cause, unspecified chronicity; Anemia, unspecified type; Bilateral leg edema Start: 06-12-2024 End: 06-12-2024 Preprocedural examination done Ruth Miranda APRN.THRESHING MACHINE OPERATOR Work Phone: [facility] Work Phone: Start: 06-12-2024 End: 06-12-2024 ambulatory [facility] Facility:[facility] Start: 06-07-2024 End: 06-11-2024 Telephone encounter Federico Vigil MD Work Phone: [facility] [place] Comment on above: Forms (Medical Clear ance) Start: 06-07-2024 End: 06-07-2024 ambulatory [facility] Facility:[facility] Start: 05-31-2024 End: 05-31-2024 ambulatory Ruth Miranda APRN.THRESHING MACHINE OPERATOR Work Phone: [facility] [place] Comment on above: Shel[place]'s pain Start: 05-30-2024 End: 05-30-2024 Patient encounter procedure Ruth Miranda APRN.THRESHING MACHINE OPERATOR Work Phone: [facility] [place] Comment on above: Chronic 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 (Primary Dx) Start: 05-30-2024 End: 05-30-2024 ambulatory [facility] Facility:[facility] Start: 05-29-2024 End: 05-29-2024 ambulatory [facility] Facility:[facility] Start: 05-24-2024 End: 05-24-2024 ambulatory [facility] Facility:[facility] Start: 05-24-2024 End: 05-24-2024 Patient encounter procedure Ruth Miranda APRN.THRESHING MACHINE OPERATOR Work Phone: [facility] [place] Comment on above: Sinobronchitis (Prim ne[place] Dx) Start: 05-18-2024 End: 05-21-2024 Refill Phani Rajan APRN.THRESHING MACHINE OPERATOR Work Phone: [facility] [place] Comment on above: Refill Request Start: 05-16-2024 End: 05-16-2024 Refill Ruth Miranda APRN.THRESHING MACHINE OPERATOR Work Phone: [facility] [place] Comment on above: Refill Request Start: 05-02-2024 End: 05-02-2024 ambulatory [facility] [place] Work Phone: [facility] [place] Start: 05-02-2024 End: 05-02-2024 Patient encounter procedure [facility] [place] Work Phone: [facility] [place] Start: 04-23-2024 End: 04-23-2024 ambulatory David Lundberg Work Phone: Hematology/Oncology Comment on above: Anemia, unspecified type (Primary Dx) Start: 04-23-2024 End: 04-23-2024 Patient encounter procedure David Lundberg Work Phone: Hematology/Oncology Start: 03-29-2024 End: 03-29-2024 Patient encounter procedure Ruth Miranda APRN.CNP Work Phone: [facility] [place] Comment on above: Contact dermatitis, unspecified contact dermatitis type, unspecified trigger (Primary Dx); Acute right-sided low back pain without sciatica; Bilateral impacted cerumen Start: 03-08-2024 End: 03-08-2024 Telephone encounter Federico Vigil MD Work Phone: [facility] [place] Comment on above: Patient Update; Medi cation Request Start: 02-28-2024 End: 02-28-2024 Subsequent hospital visit by physician Jamel Hugh [facility] [place] Work Phone: Radiology Comment on above: Acute right-sided lo w back pain without sciatica [M54.50] Start: 02-27-2024 End: 02-27-2024 Patient encounter procedure Federico Vigil MD Work Phone: [facility] [place] Comment on above: Acute right-sided lo w back pain without sciatica (Primary Dx) Start: 02-23-2024 Orders Only Phi Arreguin MD Work Phone: [facility] Comment on above: S/P carotid endarter ectomy (Primary Dx); Carotid stenosis, asymptomatic, bilateral Start: 01-27-2024 Telephone encounter Phi Arreguin MD Work Phone: [facility] Comment on above: Future Appointment Start: 01-26-2024 End: 01-26-2024 Patient encounter procedure Phi Arreguin MD Work Phone: [facility] Comment on above: Amaurosis fugax of r ight eye (Primary Dx); Bilateral extracranial carotid artery stenosis; History of right-sided carotid endarterectomy Start: 01-26-2024 End: 01-26-2024 ambulatory FEDERICO VIGIL Facility:[facility] Start: 01-20-2024 End: 01-20-2024 Patient encounter procedure Federico Vigil MD Work Phone: [facility] Comment on above: BENIGN HYPERTENSION (Primary Dx); Mixed hyperlipidemia; Paroxysmal atrial fibrillation (HCC); Cardiomyopathy, unspecified type (HCC); Coronary artery disease involving [place] coronary artery of [place] heart with angina pectoris (HCC); Atrial fibrillation, unspecified type (HCC); Gout involving toe of right foot, unspecified cause, unspecified chronicity; GERD without esophagitis; Anemia, unspecified type; Inflammatory polyarthropathy (HCC); Headache, unspecified headache type; Ear pressure, right; Elevated glucose Start: 01-13-2024 Telephone encounter Pih Arreguin MD Work Phone: [facility] Comment on above: Patient Update Start: 01-04-2024 End: 01-04-2024 Patient encounter procedure Timothy Walker MD Work Phone: [facility] [place] Comment on above: Paroxysmal atrial fi brillation (HCC) (Primary Dx); Cardiomyopathy, unspecified type (HCC); Hyperlipidemia, unspecified hyperlipidemia type; Primary hypertension; Status post ablation of atrial flutter; Status post catheter ablation of atrial fibrillation Start: 01-04-2024 End: 01-04-2024 ambulatory TIMOTHY WALKER Facility:[facility] Start: 01-04-2024 Telephone encounter Phi Arreguin MD Work Phone: [facility] Comment on above: Patient Update (Swel ling in the neck) Start: 01-03-2024 Telephone encounter Agustin Linares [facility] Department Comment on above: Fabric Transition of Care Start: 12-28-2023 Telephone encounter Agustin Linares [facility] Department Comment on above: Fabric Transition of Care Start: 12-26-2023 End: 12-27-2023 Evaluation and management of inpatient FEDERICO Linares [facility] Facility:[facility] Start: 12-23-2023 Refill Federico dsouza MD Work Phone: [facility] [place] Comment on above: Refill Request Start: 12-21-2023 Refill Ruth Miranda APRN.CNP Work Phone: [facility] [place] Comment on above: Refill Request Start: 12-20-2023 End: 12-20-2023 Admission to establishment [facility] 1 Pre Surgical Testing Start: 12-20-2023 End: 12-20-2023 Preprocedural examination done Pst 1 [facility] Start: 12-20-2023 End: 12-20-2023 ambulatory FEDERICO Milagros [facility] Pre Surgical Testing Comment on above: Carotid stenosis, as ymptomatic, bilateral (Primary Dx); Preop examination; Paroxysmal atrial fibrillation (HCC); Mixed hyperlipidemia; Coronary artery disease involving [place] coronary artery of [place] heart with angina pectoris (HCC); Cardiomyopathy, unspecified type (HCC); BENIGN HYPERTENSION; Gastroesophageal reflux disease, unspecified whether esophagitis present; Iron deficiency anemia, unspecified iron deficiency anemia type Start: 12-19-2023 Preprocedural examination done Pst 1 [facility] Start: 12-19-2023 Encounter for other preprocedural examination RUTH MIRANDA [facility] Start: 12-09-2023 Telephone encounter Phi Arreguin MD Work Phone: [facility] Comment on above: Schedule Surgery Start: 12-08-2023 End: 12-08-2023 Patient encounter procedure Phi Arreguin MD Work Phone: [facility] Comment on above: Bilateral extracrani al carotid artery stenosis (Primary Dx); Amaurosis fugax of right eye Start: 12-08-2023 End: 12-08-2023 ambulatory FEDERICO Linares [facility] Facility:[facility] Start: 11-28-2023 Telephone encounter Federico steven MD Work Phone: [facility] [place] Comment on above: Schedule Surgery Start: 11-25-2023 Telephone encounter Phi Arreguin MD Work Phone: [facility] Comment on above: Results (CT scan res ults) Start: 11-24-2023 End: 11-24-2023 Subsequent hospital visit by physician [facility] (I-Stat) Work Phone: Cat Scan Comment on above: Occlusion and stenos is of unspecified carotid artery [I65.29] Start: 11-17-2023 End: 11-17-2023 Patient encounter procedure Phi Arreguin MD Work Phone: [facility] Comment on above: Bilateral extracrani al carotid artery stenosis (Primary Dx); Amaurosis fugax; Occlusion and stenosis of unspecified carotid artery Start: 11-17-2023 End: 11-17-2023 ambulatory FEDERICO VIGIL Facility:[facility] Start: 11-14-2023 End: 11-14-[address] Federico Vigil Work Phone: [facility] Work Phone: Start: 11-14-2023 End: 11-14-[address] Federico Vigil Work Phone: [facility] Work Phone: Start: 11-11-2023 Telephone encounter Elena Woo tthews BOARD CERTIFIED ARTS THERAPIST.THRESHING MACHINE OPERATOR Work Phone: [facility] Comment on above: Results Start: 11-11-2023 ambulatory FEDERICO VIGIL Facil ity:[facility] Start: 11-11-2023 End: 11-11-2023 Subsequent hospital visit by physician [facility] Comment on above: Carotid stenosis, as ymptomatic, bilateral [I65.23] Start: 11-10-2023 Telephone encounter Phi Arreguin MD Work Phone: [facility] Comment on above: Patient Update (Visi on loss) Patient Update; Corazon ent Question Start: 11-09-2023 Telephone encounter Federico steven MD Work Phone: [facility] [place] Comment on above: Requesting testing Start: 10-27-2023 Telephone encounter David limaaaliyah Work Phone: Hematology/Oncology Comment on above: AVS 10/27/23 Start: 10-27-2023 End: 10-27-2023 ambulatory David Lundberg Work Phone: Hematology/Oncology Comment on above: Iron deficiency anem ia, unspecified iron deficiency anemia type (Primary Dx); Anemia, unspecified type Start: 10-27-2023 End: 10-27-2023 Patient encounter procedure David Lundberg Work Phone: [facility] Start: 10-25-2023 End: 10-25-[address] Federico Vigil Work Phone: [facility] Work Phone: Start: 10-24-2023 Orders Only David Tamika Work Phone: Hematology/Oncology Comment on above: Anemia, unspecified type (Primary Dx); Iron deficiency anemia, unspecified iron deficiency anemia type Start: 09-23-2023 End: 09-23-[address] Federico Vigil Work Phone: [facility] Work Phone: Start: 09-23-2023 End: 09-23-[address] Federico Vigil Work Phone: [facility] Work Phone: Start: 09-19-2023 Telephone encounter Cass WALTERS Hematology/Oncology Comment on above: Social Work Services Start: 09-19-2023 End: 09-19-2023 ambulatory Treatment Rm 13 Yohan [facility] Work Phone: Hematology/Oncology Comment on above: Iron deficiency anem ia, unspecified iron deficiency anemia type (Primary Dx) Start: 09-16-2023 End: 09-16-2023 ambulatory Treatment Rm 13 Yohan [facility] Work Phone: Hematology/Oncology Comment on above: Iron deficiency anem ia, unspecified iron deficiency anemia type (Primary Dx) Start: 09-14-2023 End: 09-14-2023 ambulatory [facility] Work Phone: [facility] Comment on above: Iron deficiency anem ia, unspecified iron deficiency anemia type (Primary Dx) Start: 09-13-2023 End: 09-13-[address] Federico Vigil Work Phone: [facility] Work Phone: Start: 09-13-2023 End: 09-13-[address] Federico Vigil Work Phone: [facility] Work Phone: Start: 09-08-2023 End: 09-08-2023 ambulatory Treatment 13 [facility] Work Phone: Hematology/Oncology Comment on above: Iron deficiency anem ia, unspecified iron deficiency anemia type (Primary Dx) Start: 09-05-2023 End: 09-05-[address] Federico Vigil Work Phone: [facility] Work Phone: Start: 09-02-2023 End: 09-02-2023 Subsequent hospital visit by physician [facility] Work Phone: Radiology Comment on above: Acute pain of left k nee [M25.562] Start: 09-02-2023 End: 09-02-2023 Patient encounter procedure Sumaya Alcazar APRN.CNP Work Phone: [facility] Comment on above: Acute pain of left k nee (Primary Dx) Start: 09-01-2023 End: 09-01-2023 ambulatory David Lundberg Work Phone: Hematology/Oncology Comment on above: Anemia, unspecified type (Primary Dx); Iron deficiency anemia, unspecified iron deficiency anemia type Start: 09-01-2023 End: 09-01-2023 Patient encounter procedure David Lundberg Work Phone: [facility] Start: 08-22-2023 End: 08-22-2023 ambulatory David Lundberg Work Phone: Hematology/Oncology Comment on above: Anemia, unspecified type (Primary Dx); Iron deficiency anemia, unspecified iron deficiency anemia type Start: 08-22-2023 End: 08-22-2023 Patient encounter procedure David Lundberg Work Phone: [facility] Start: 08-18-2023 Telephone encounter Federico steven MD Work Phone: [facility] [place] Comment on above: New Patient Start: 08-15-2023 End: 08-15-[address] Federico Vigil Work Phone: [facility] Work Phone: Start: 08-15-2023 End: 08-15-[address] Federico Vigil Work Phone: [facility]Laboratory Work Phone: Start: 08-01-2023 End: 08-01-[address] Federico Vigil Work Phone: [facility] Work Phone: Start: 08-01-2023 End: 08-01-[address] Federico Vigil Work Phone: [facility]Physical Therapy Work Phone: Start: 08-01-[address] Federico Vigil Work Phone: [facility] Work Phone: Start: 07-31-2023 End: 07-31-2023 Emergency department patient visit Dr. Federico Vigil Work Phone: [facility]-Emergency Department Work Phone: Start: 07-25-[address] Federico Vigil Work Phone: [facility]Physical Therapy Work Phone: Start: 07-15-2023 End: 07-15-[address] Federico Vigil Work Phone: [facility] Work Phone: Start: 06-22-2023 End: 06-22-2023 Patient encounter procedure Timothy Walker MD Work Phone: [facility] [place] Comment on above: Paroxysmal atrial fi brillation (HCC) (Primary Dx); Cardiomyopathy, unspecified type (HCC); Coronary artery disease involving [place] coronary artery of [place] heart with angina pectoris (HCC); Mixed hyperlipidemia; BENIGN HYPERTENSION; Status post ablation of atrial flutter Start: 06-22-2023 End: 06-22-2023 ambulatory TIMOTHY WALKER Facility:[facility] Start: 06-06-2023 End: 06-06-2023 Patient encounter procedure Cabrera Mejia MD Work Phone: General Surgery Comment on above: Other dysphagia (Karla flaca Dx); Pain with swallowing Start: 06-06-2023 Telephone encounter Cabrera kimball MD Work Phone: General Surgery Start: 05-25-2023 Telephone encounter Ruth arango APRN.THRESHING MACHINE OPERATOR Work Phone: [facility] [place] Comment on above: Results (CT Head/Nec k ) Start: 05-25-2023 End: 05-25-2023 Subsequent hospital visit by physician [facility] (I-Stat) Work Phone: Cat Scan Comment on above: Dizziness [R42] Start: 05-24-2023 Refill Phani REYEZ RN.THRESHING MACHINE OPERATOR Work Phone: [facility] [place] Comment on above: Refill Request Start: 05-24-2023 Telephone encounter Cabrera kimball MD Work Phone: General Surgery Comment on above: Patient Question (Qu estions regarding results) Start: 05-22-2023 ambulatory Ruth Miranda APRN.THRESHING MACHINE OPERATOR Work Phone: [facility] Comment on above: Pantoprazole Start: 05-20-2023 ambulatory GRETEL MORGAN Facility:[facility] Start: 05-19-2023 End: 05-19-[address] Federico Vigil Work Phone: [facility] [facility] Work Phone: Start: 05-10-2023 End: 05-11-2023 Emergency department patient visit [facility]Emergency Department Work Phone: Start: 05-10-2023 Telephone encounter Rickmarguerite Snell [facility] Surgery Comment on above: GIPRE OP CALL Start: 05-09-2023 End: 05-09-2023 Patient encounter procedure Ruth Miranda APRN.THRESHING MACHINE OPERATOR Work Phone: [facility] Comment on above: Paroxysmal atrial fi brillation (HCC) (Primary Dx); Dizziness; Tinnitus, unspecified laterality; Bilateral impacted cerumen; Tenderness of neck Start: 05-01-2023 ambulatory Ruth Miranda APRN.THRESHING MACHINE OPERATOR Work Phone: [facility] Comment on above: RSV vaccine Start: 04-26-2023 End: 04-26-2023 Patient encounter procedure Gretelemmanuel Morgan MARYJANE-Juve Work Phone: General Surgery Comment on above: Pain with swallowing (Primary Dx); History of colonic polyps; Upper abdominal pain Start: 04-22-2023 End: 04-22-2023 ambulatory [facility] Nurse [place] Work Phone: [facility] Start: 04-17-2023 End: 04-17-2023 Patient encounter procedure Ita Villanueva APRN.THRESHING MACHINE OPERATOR Work Phone: [facility] Comment on above: Rash (Primary Dx); Acute gout involving toe of right foot, unspecified cause Start: 04-13-2023 End: 04-13-2023 Subsequent hospital visit by physician [facility] Work Phone: Radiology Comment on above: Enlarged thyroid [E0 4.9] Start: 04-01-2023 End: 04-01-2023 ambulatory [facility] Work Phone: Start: 04-01-2023 End: 04-01-2023 Patient encounter procedure [facility] Work Phone: Start: 03-29-2023 End: 03-29-2023 Patient encounter procedure Malathi Galeas APRN.THRESHING MACHINE OPERATOR Work Phone: [facility] [place] Comment on above: Status post catheter ablation of atrial fibrillation (Primary Dx); Status post ablation of atrial flutter; Paroxysmal atrial fibrillation (HCC); roasterman current use of antiarrhythmic drug; roasterman (current) use of anticoagulants; At risk for stroke Start: 03-29-2023 End: 03-29-2023 ambulatory FEDERICO VIGIL Facility:[facility] Start: 03-29-2023 ambulatory TIMOTHY WALKER [facility] Start: 03-29-2023 End: 03-29-2023 Subsequent hospital visit by physician Ekg/Holter/Event Monitor [facility] Comment on above: Persistent atrial fi brillation (HCC) [I48.19] Start: 03-24-2023 End: 03-24-2023 ambulatory FEDERICO VIGIL Facility:[facility] Start: 03-18-2023 Refill Thomas Sonal MELENDEZ.THRESHING MACHINE OPERATOR Work Phone: [facility] [place] Comment on above: Refill Request Start: 02-21-2023 Telephone encounter Phi Arreguin MD Work Phone: [facility] Comment on above: Patient Update (Head pain and blurred vision) Start: 02-17-2023 Telephone encounter Federico steven MD Work Phone: [facility] [place] Comment on above: [facility] Sleep Disorder C enter Start: 01-25-2023 Telephone encounter Phi Arreguin MD Work Phone: [facility] Comment on above: Appointment (Annual f/up with testing [place]) Start: 01-17-2023 End: 01-17-2023 Patient encounter procedure Federico Vigil MD Work Phone: [facility] [place] Comment on above: BENIGN HYPERTENSION (Primary Dx); GERD without esophagitis; Mixed hyperlipidemia; PAD (peripheral artery disease) (HCC); Atrial fibrillation, unspecified type (HCC); Cardiomyopathy, ischemic; Ischemic cardiomyopathy Start: 01-04-2023 End: 01-04-[address] Federico Vigil Work Phone: [facility] Work Phone: Start: 01-04-2023 End: 01-04-[address] Federico Vigil Work Phone: [facility]Laboratory Start: 12-30-2022 Telephone encounter Timothy antoine MD Work Phone: [facility] Comment on above: Orders Start: 12-25-2022 End: 12-25-2022 Emergency department patient visit Dr. Federico Vigil Work Phone: [facility]Emergency Department Start: 12-18-2022 End: 12-18-[address] Federico Vigil Work Phone: [facility] Work Phone: Start: 12-18-2022 End: 12-18-[address] Federico Vigil Work Phone: [facility] Start: 11-30-2022 Telephone encounter Timothy antoine MD Work Phone: [facility] Comment on above: Preparations For Pro cedures Start: 11-29-2022 End: 11-29-2022 Patient encounter procedure Timothy Walker MD Work Phone: [facility] Comment on above: PAF (paroxysmal atri al fibrillation) (HCC) (Primary Dx); Atrial fibrillation, unspecified type (HCC); Cardiomyopathy, ischemic; PAD (peripheral artery disease) (HCC); Mixed hyperlipidemia; Coronary artery disease involving [place] coronary artery of [place] heart without angina pectoris; S/P drug eluting coronary stent placement Start: 11-16-2022 End: 11-16-[address] Federico Vigil Work Phone: [facility] Work Phone: Start: 11-16-2022 End: 11-16-[address] Federico Vigil Work Phone: [facility] Start: 11-12-2022 End: 11-12-[address] Federico Vigil Work Phone: [facility] Work Phone: Start: 11-12-2022 End: 11-12-[address] Federico Vigil Work Phone: [facility] Start: 11-10-2022 Telephone encounter Federico steven MD Work Phone: [facility] Comment on above: patient update/reque sting medication ([id number]/) Orders Patient Update; Corazon ent Question Start: 11-07-2022 ambulatory Karina carrasco Work Phone: Podiatry Comment on above: Gout Start: 11-04-2022 End: 11-04-[address] Federico Vigil Work Phone: [facility] Start: 11-03-2022 End: 11-03-2022 Subsequent hospital visit by physician [facility] Work Phone: Radiology Comment on above: Acute idiopathic gou t, unspecified site [M10.00] Start: 10-29-2022 Non-patient / Non-visit Dr. Yon Vigil Work Phone: [facility] Start: 10-27-2022 End: 10-27-2022 Patient encounter procedure Ruth Miranda APRN.CNP Work Phone: [facility] Comment [...] of left foot Start: 10-16-2022 Refill Ruth Miranda APRN.CNP Work Phone: [facility] Comment on above: Refill Request Start: 10-14-2022 ambulatory Karinasheela carrasco Work Phone: Podiatry Comment on above: xrays Start: 10-14-2022 E-mail encounter fro m caregiver Karina Miguelsly Work Phone: [facility] Start: 10-12-2022 Orders Only Karina Michel carrasco Work Phone: Podiatry Comment on above: Acute gout involving toe of left foot, unspecified cause (Primary Dx) Start: 10-12-2022 End: 10-12-[address] Federico Vigil Work Phone: [facility] [facility] Start: 10-11-2022 Telephone encounter Karina Gonzalez pa Work Phone: Podiatry Comment on above: Medication Problem ( Pharmacy issue) Start: 10-11-2022 End: 10-11-2022 Patient encounter procedure Karina Pearsondanilo Work Phone: Podiatry Comment on above: Acute gout involving toe of left foot, unspecified cause (Primary Dx); Pain in left foot Start: 10-10-2022 ambulatory Karina carrasco Work Phone: Podiatry Comment on above: Left foot bunion and repeated gout despite allipurinol Start: 10-07-2022 Non-patient / Non-visit Dr. Yon Vigil Work Phone: [facility] Start: 10-06-2022 End: 10-07-2022 Evaluation and management of inpatient Dr. Federico Vigil Work Phone: [facility]Progressive Care Unit Start: 09-27-2022 End: 09-27-2022 Subsequent hospital visit by physician [facility] Work Phone: Radiology Comment on above: Pain [R52] Start: 09-27-2022 End: 09-27-2022 Patient encounter procedure Ita Villanueva APRN.THRESHING MACHINE OPERATOR Work Phone: [facility] Comment on above: Pain (Primary Dx); Acute gout involving toe of left foot, unspecified cause Start: 09-24-2022 Non-patient / Non-visit Dr. Yon Vigil Work Phone: [facility] Start: 09-24-2022 End: 09-24-[address] Federico Vigil Work Phone: [facility] Work Phone: Start: 09-24-2022 End: 09-24-[address] Federico Vigil Work Phone: [facility]Cardiovascular Services Start: 09-21-2022 Refill Ruth Miranda APRN.THRESHING MACHINE OPERATOR Work Phone: [facility] Comment on above: Refill Request Start: 09-16-2022 Telephone encounter Federico steven MD Work Phone: [facility] Comment on above: Gout Flare Start: 09-14-2022 Refill Ruth Miranda APRN.THRESHING MACHINE OPERATOR Work Phone: [facility] Comment on above: Refill Request Start: 09-13-2022 End: 09-13-[address] Federico Vigil Work Phone: [facility] Start: 09-07-2022 ambulatory Ruth Miranda APRN.THRESHING MACHINE OPERATOR Work Phone: [facility] Comment on above: Cough Start: 09-06-2022 Telephone encounter Federico steven MD Work Phone: [facility] Comment on above: Need new order for s tress test Start: 09-01-2022 Telephone encounter Ruth arango APRN.THRESHING MACHINE OPERATOR Work Phone: [facility] Comment on above: Results (Echo ) Start: 08-30-2022 Telephone encounter Ruth arango BOARD CERTIFIED ARTS THERAPIST.THRESHING MACHINE OPERATOR Work Phone: [address] [place] [address] Comment on above: Orders Start: 08-27-2022 Telephone encounter Federico steven MD Work Phone: [facility] [place] Comment on above: Cough Start: 08-13-2022 Telephone encounter Ruth arango BOARD CERTIFIED ARTS THERAPIST.THRESHING MACHINE OPERATOR Work Phone: [facility] [place] Comment on above: Results (Labs ) Start: 08-05-2022 End: 08-05-2022 Patient encounter procedure Ruth Miranda BOARD CERTIFIED ARTS THERAPIST.THRESHING MACHINE OPERATOR Work Phone: [facility] [place] Comment on above: History of gout (Karla flaca Dx) Start: 08-01-2022 End: 08-01-2022 Office outpatient visit 25 minutes Royce Rivera BOARD CERTIFIED ARTS THERAPIST.THRESHING MACHINE OPERATOR Work Phone: [facility] Comment on above: Toe swelling (Primar y Dx) Start: 07-29-2022 End: 07-29-2022 Patient encounter procedure Ruth Miranda BOARD CERTIFIED ARTS THERAPIST.THRESHING MACHINE OPERATOR Work Phone: [facility] Comment on above: Pain with swallowing (Primary Dx); GERD without esophagitis Start: 07-23-2022 End: 07-23-2022 Subsequent hospital visit by physician [facility] Work Phone: Radiology Comment on above: Enlarged thyroid [E0 4.9] Start: 07-21-2022 End: 07-21-2022 Patient encounter procedure Ruth Miranda BOARD CERTIFIED ARTS THERAPIST.THRESHING MACHINE OPERATOR Work Phone: [facility] Comment on above: Dizziness (Primary D x); Enlarged thyroid Start: 07-16-2022 ambulatory Felicia Olguin RN NURSE O N CALL Comment on above: Dizziness Start: 07-04-2022 Non-patient / Non-visit Dr. Yon Vigil Work Phone: [facility] Start: 07-04-2022 End: 07-04-2022 ambulatory [facility] Work Phone: Start: 07-04-2022 End: 07-04-2022 Patient encounter procedure [facility] Start: 07-03-2022 End: 07-04-2022 Emergency department patient visit [facility]Emergency Department Start: 04-28-2022 End: 04-28-2022 Patient encounter procedure Ruth Miranda APRN.THRESHING MACHINE OPERATOR Work Phone: [facility] Comment on above: BENIGN HYPERTENSION (Primary Dx); Mixed hyperlipidemia; PAD (peripheral artery disease) (HCC); ED (erectile dysfunction) of organic origin; Gastroesophageal reflux disease, unspecified whether esophagitis present; Need for influenza vaccination Start: 04-21-2022 Telephone encounter Federico steven MD Work Phone: [facility] [facility] Comment on above: Patient Question Start: 04-20-2022 End: 04-20-2022 Patient encounter procedure Karina Marlyn Work Phone: Podiatry Comment on above: Tailor's bunion of l eft foot (Primary Dx) Start: 04-20-2022 End: 04-20-2022 Subsequent hospital visit by physician Xr [facility] [place] Work Phone: Radiology Comment on above: Pain in left foot [M 79.672] Start: 04-16-2022 Orders Only Karina carrasco Work Phone: Podiatry Comment on above: Pain in left foot (P rimary Dx) Start: 04-15-2022 Refill Karma Duenas.THRESHING MACHINE OPERATOR Work Phone: Gastroenterology Comment on above: Refill Request Start: 04-15-2022 End: 04-15-2022 Subsequent hospital visit by physician Jamel [facility] [place] Work Phone: Radiology Comment on above: Acute cough [R05.1] Start: 04-15-2022 End: 04-15-2022 Patient encounter procedure Kinga Pepper APRN.THRESHING MACHINE OPERATOR Work Phone: [facility] Comment on above: Acute cough (Primary Dx); Suspected COVID-19 virus infection; BENIGN HYPERTENSION; Lower resp. tract infection Start: 04-11-2022 Refill Karma Alberto APR N.THRESHING MACHINE OPERATOR Work Phone: Gastroenterology Comment on above: Refill Request Start: 03-06-2022 Refill Federico dsouza MD Work Phone: [facility] [place] Comment on above: Refill Request Start: 03-04-2022 End: 03-04-2022 Patient encounter procedure Phi Arreguin MD Work Phone: [facility] Specialties Comment on above: Carotid stenosis, as ymptomatic, bilateral (Primary Dx) Start: 03-01-2022 Telephone encounter Phi Arreguin MD Work Phone: [facility] Cardiac, Thoracic and Vascular Specialties Comment on above: Appointment Refill Request; Refi ll Request Start: 01-19-2022 Telephone encounter Ruth arango BOARD CERTIFIED ARTS THERAPIST.THRESHING MACHINE OPERATOR Work Phone: [facility] [place] Comment on above: Results (Labs) Start: 01-15-2022 End: 01-15-2022 Patient encounter procedure Ruth Miranda BOARD CERTIFIED ARTS THERAPIST.THRESHING MACHINE OPERATOR Work Phone: [facility] [place] Comment on above: Leg cramping (Primar y Dx) Start: 11-24-2021 End: 11-24-2021 Patient encounter procedure Karina Cline Work Phone: Podiatry Comment on above: Bursitis of right fo ot (Primary Dx); Tailor's bunion of right foot Start: 11-24-2021 End: 11-24-2021 Subsequent hospital visit by physician Jamel [facility] [place] Jenkins Work Phone: Radiology Comment on above: Pain [R52] Start: 11-16-2021 Orders Only Karina carrasco Work Phone: [facility] Comment on above: Pain (Primary Dx) Start: 10-15-2021 Refill Karma Alberto APR N.THRESHING MACHINE OPERATOR Work Phone: Gastroenterology Comment on above: Refill Request Start: 10-15-2021 Refill Karma Alberto APR N.THRESHING MACHINE OPERATOR Work Phone: Gastroenterology Comment on above: Refill Request Start: 07-29-2020 End: 07-29-2020 Subsequent hospital visit by physician Xr [facility] [place] Work Phone: Radiology Comment on above: Acute pain of left s sravaniulder [M25.512] Start: 02-02-2019 Ambulatory ANTOINETTE DEAN Facilit y:[facility] Start: 08-04-2018 End: 08-08-2018 Patient encounter procedure Serge Dubon MD Work Phone: [facility] Work Phone: Start: 01-20-2018 End: 01-20-2018 Ambulatory VICKIE PAEZ Facility:[facility] Start: 12-29-2017 Ambulatory VICKIE PHILIPPE Facilit y:[facility] Procedures Date Procedure Procedure Detail Performing Clinician Start: 02-01-2025 MRI of lumbar spine Dr. Federico Vigil MD Work Phone: Start: 01-02-2025 X-ray of chest, PA a nd lateral views Dr. Federico Vigil MD Work Phone: Start: 12-13-2024 Dual energy X-ray absorptiometry Dr. [...] HCV Quant by PCR testing - HCVPCR #[id number] Non Reactive: < 0.8 Equivocal: >/= 0.8 [...] Radiologic exam ches t 2 views Ruth Miranda BOARD CERTIFIED ARTS THERAPIST.THRESHING MACHINE OPERATOR Work Phone: Start: 09-03-2024 STREP A MOLECULAR (POC) Ruth Miranda BOARD CERTIFIED ARTS THERAPIST.THRESHING MACHINE OPERATOR Work Phone: Start: 08-24-2024 Radiologic exam knee complete 4/more views Sumaya Alcazar BOARD CERTIFIED ARTS THERAPIST.THRESHING MACHINE OPERATOR Work Phone: Start: 02-28-2024 Radex spine lumbosac ral 2/3 views Federico Vigil MD Work Phone: Start: 01-20-2024 Adult depression screening assessment Federico Vigil MD Work Phone: Start: 12-26-2023 History of carotid endarterectomy S/P carotid endarterectomy Agustin Fenton MD Start: 12-20-2023 Antibody screen FEDERICO WILLIS Comment on above: Order Comment: Speci men Type: BLOOD SPECIMENOrdering Facility: [facility] Address: [address] [place] [address] Performed By: #### T [id number] ####[facility] BLOOD BANKCLIA [id number] [place] [address] [place] Start: 11-24-2023 Ct angiography head w/contrast/noncontrast Phi Arreguin MD Work Phone: Start: 11-24-2023 Ct angiography neck w/contrast/noncontrast Phi Arreguin MD Work Phone: Start: 11-14-2023 MRI of cervical spine Milagros Vigil Work Phone: Start: 11-11-2023 Ct angiography head w/contrast/noncontrast Elena Watkins BOARD CERTIFIED ARTS THERAPIST.THRESHING MACHINE OPERATOR Work Phone: Start: 11-11-2023 Ct angiography neck w/contrast/noncontrast Vel Patel MA Start: 11-11-2023 Creatinine blood [facility] Pr ovider Start: 09-05-2023 Radiologic examinati on of knee Dr. Federico Vigil Work Phone: Start: 09-02-2023 Radiologic exam knee complete 4/more views Sumaya Alcazar BOARD CERTIFIED ARTS THERAPIST.THRESHING MACHINE OPERATOR Work Phone: Start: 07-31-2023 Plain x-ray of hand Dr. Federico Vigil Work Phone: Start: 07-31-2023 CT of chest without contrast Dr. Federico Vigil Work Phone: Start: 07-31-2023 Diagnostic radiograp hy of finger Dr. Federico Vigil Work Phone: Start: 07-15-2023 X-ray of cervical spine Dr. Federico Vigil Work Phone: Start: 05-25-2023 Ct angiography head w/contrast/noncontrast Ruth Miranda BOARD CERTIFIED ARTS THERAPIST.THRESHING MACHINE OPERATOR Work Phone: Start: 05-25-2023 Ct angiography neck w/contrast/noncontrast Ruth Miranda BOARD CERTIFIED ARTS THERAPIST.THRESHING MACHINE OPERATOR Work Phone: Start: 05-10-2023 Computed tomography of abdomen and pelvis with intravenous contrast Start: 04-22-2023 INFLUENZA VACCINE, P RSV FREE, AGE 65+ YR, HIGH DOSE, QUADRIVALENT (FLUZONE HIGH-DOSE) Federico Vigil MD Work Phone: Start: 04-13-2023 Us soft tissue head & neck real time imge roverto Miranda BOARD CERTIFIED ARTS THERAPIST.THRESHING MACHINE OPERATOR Work Phone: Start: 03-29-2023 Ecg routine ecg w/le ast 12 lds w/i&r Malathi Galeas BOARD CERTIFIED ARTS THERAPIST.THRESHING MACHINE OPERATOR Work Phone: Start: 03-29-2023 Echo [...] foot complete minimum 3 views Ita Villanueva BOARD CERTIFIED ARTS THERAPIST.THRESHING MACHINE OPERATOR Work Phone: Start: 09-24-2022 Cardiovascular stres s test using pharmacologic stress agent Dr. Federico Vigil Work Phone: Start: 09-15-2022 History of placement of stent for coronary artery disease History of coronary artery stent placement Dr. Federico Vigil Work Phone: Comment on above: 1st OM(Ostial)-PTCA/ CALE Resolute Lc 2.5x18mm and Resolute Glen 2.25x8mm, Mid Circumflex PTCA Start: 07-23-2022 Us soft tissue head & neck real time imge roverto Miranda BOARD CERTIFIED ARTS THERAPIST.THRESHING MACHINE OPERATOR Work Phone: Start: 04-28-2022 INFLUENZA SEASONAL QUADRIVALENT HIGH DOSE AGE 65+ Ruth Miranda BOARD CERTIFIED ARTS THERAPIST.THRESHING MACHINE OPERATOR Work Phone: Start: 04-15-2022 Radiologic exam ches t 2 views Kinga Pepper BOARD CERTIFIED ARTS THERAPIST.THRESHING MACHINE OPERATOR Work Phone: Start: 11-24-2021 Radex foot complete minimum 3 views Karina Cline Work Phone: Start: 10-06-2021 Adult depression screening assessment Karma Alberto BOARD CERTIFIED ARTS THERAPIST.THRESHING MACHINE OPERATOR Work Phone: Start: 07-29-2020 Radex shoulder compl ete minimum 2 views Reyna Mandel BOARD CERTIFIED ARTS THERAPIST.THRESHING MACHINE OPERATOR Work Phone: Start: 08-04-2018 End: [...] joint replacement by other means Karma Alberto BOARD CERTIFIED ARTS THERAPIST.THRESHING MACHINE OPERATOR Work Phone: Start: 09-28-2010 H/O: artificial joint Shoulder joint replacement Karma Alberto BOARD CERTIFIED ARTS THERAPIST.THRESHING MACHINE OPERATOR Work Phone: History of carotid endarterectomy History of right-sided carotid endarterectomy Phi Arreguin MD Work Phone: History of carotid endarterectomy S/P carotid endarterectomy Phi Arreguin MD Work Phone: History of placement of stent for coronary artery disease S/P drug eluting coronary stent placement Timothy Walker MD Work Phone: Plan of Treatment Date Care Activity Detail Author Start: 08-29-2027 Diabetes Screening Diabetes Screening [facility] Start: 06-18-2027 Diabetes Screening Diabetes Screening [facility] Start: 01-22-2027 Diabetes Screening Diabetes Screening [facility] Start: 12-26-2026 Diabetes Screening Diabetes Screening [facility] Start: 12-19-2026 Diabetes Screening Diabetes Screening [facility] Start: 08-22-2026 Diabetes Screening Diabetes Screening [facility] Start: 07-21-2026 Diabetes Screening Diabetes Screening [facility] Start: 12-21-2025 DIABETES SCREEN DIABETES SCREEN [facility] Start: 12-21-2025 Diabetes Screening Diabetes Screening [facility] Start: 11-09-2025 Annual PCP Team Chronic Disease Visit Annual PCP Team Chronic Disease Visit [facility] Start: 10-12-2025 Annual PCP Team Chronic Disease Visit Annual PCP Team Chronic Disease Visit [facility] Start: 09-03-2025 Annual PCP Team Chronic Disease Visit Annual PCP Team Chronic Disease Visit [facility] Start: 09-03-2025 BP Controlled (<130/80) BP Controlled (<130/80) [facility] in Start: 08-29-2025 Annual PCP Team Chronic Disease Visit Annual PCP Team Chronic Disease Visit [facility] Start: 07-24-2025 Annual PCP Team Chronic Disease Visit Annual PCP Team Chronic Disease Visit [facility] Start: 07-24-2025 BP Controlled (<130/80) BP Controlled (<130/80) [facility] Start: 07-21-2025 DIABETES SCREEN DIABETES SCREEN [facility] Start: 06-12-2025 Annual PCP Team Chronic Disease Visit Annual PCP Team Chronic Disease Visit [facility] Start: 06-12-2025 BP Controlled (<130/80) BP Controlled (<130/80) [facility] in Start: 05-30-2025 Annual PCP Team Chronic Disease Visit Annual PCP Team Chronic Disease Visit [facility] Start: 05-30-2025 BP Controlled (<130/80) BP Controlled (<130/80) [facility] in Start: 05-23-2025 [facility] Start: 05-07-2025 Complete blood count [facility] Start: 05-07-2025 Prothrombin time [facility] Start: 03-29-2025 Annual PCP Team Chronic Disease Visit Annual PCP Team Chronic Disease Visit [facility] Start: 03-18-2025 Influenza vaccination Influenza Vaccine (#1) [facility] Start: 02-26-2025 Annual PCP Team Chronic Disease Visit Annual PCP Team Chronic Disease Visit [facility] Start: 02-26-2025 BP Controlled (<130/80) BP Controlled (<130/80) [facility] Start: 01-25-2025 End: 01-25-2025 Patient encounter procedure 01/25/2025 11:00 AM EDT Office Visit Family Medicine [place] [address] [place] [address] Federico Vigil MD [address] [place] [address] 6 month follow up [facility] [place] Comment on above: 6 month follow up Start: 01-22-2025 Hepatitis B surface antibody level LDL Cholesterol [facility] Start: 01-21-2025 End: 04-22-2025 Comprehensive metabolic 2000 panel - Serum or Plasma COMPREHENSIVE METABOLIC PANEL Lab Routine Hyperlipidemia, unspecified hyperlipidemia type PAD (peripheral artery disease) (HCC) Coronary artery disease involving [place] coronary artery of [place] heart with angina pectoris (HCC) Elevated glucose Expected: 01/21/2025 (Approximate), Expires: 04/22/2025 [facility] Work Phone: Comment on above: Expected: 01/21/2025 (Approximate), Expi res: 04/22/2025 Start: 01-21-2025 End: 04-22-2025 Hemoglobin A1c in Blood HEMOGLOBIN A1C Lab Routine Elevated glucose Expected: 01/21/2025 (Approximate), Expires: 04/22/2025 [facility] Comment on above: Expected: 01/21/2025 (Approximate), Expi res: 04/22/2025 Start: 01-21-2025 End: 04-22-2025 Lipid 1996 panel - Serum or Plasma LIPID PANEL BASIC Lab Routine Hyperlipidemia, unspecified hyperlipidemia type PAD (peripheral artery disease) (HCC) Coronary artery disease involving [place] coronary artery of [place] heart with angina pectoris (HCC) Expected: 01/21/2025 (Approximate), Expires: 04/22/2025 [facility] Comment on above: Expected: 01/21/2025 (Approximate), Expi res: 04/22/2025 Start: 01-21-2025 End: 04-22-2025 Urate [Mass/volume] in Serum or Plasma URIC ACID Lab Routine Gout involving toe of right foot, unspecified cause, unspecified chronicity Expected: 01/21/2025 (Approximate), Expires: 04/22/2025 [facility] Comment on above: Expected: 01/21/2025 (Approximate), Expi res: 04/22/2025 Start: 01-19-2025 Annual PCP Team Chronic Disease Visit Annual PCP Team Chronic Disease Visit [facility] Start: 01-19-2025 Anxiety Screening Anxiety Screening [facility] Start: 01-19-2025 Depression Screening Depression Screening [facility] Start: 01-15-2025 DIABETES SCREEN DIABETES SCREEN [facility] Start: 01-08-2025 Patient discharge [facility] Start: 12-19-2024 BP Controlled (<130/80) BP Controlled (<130/80) [facility] Start: 12-07-2024 BP Controlled (<130/80) BP Controlled (<130/80) [facility] Start: 10-22-2024 End: 10-22-2024 ambulatory [facility] Comment on above: CBC/IRON STUDIES* 6 MO OV/LABS EARLY* Start: 10-18-2024 Covid-19 Vaccine () Covid-19 Vaccine () [facility] Start: 10-06-2024 DIABETES SCREEN DIABETES SCREEN [facility] Start: 09-02-2024 BP Controlled (<130/80) BP Controlled (<130/80) [facility] Start: 08-29-2024 End: 11-28-2024 Comprehensive metabolic 2000 panel - Serum or Plasma [facility] Comment on above: Expected: 08/29/2024, Expires: Start: 08-29-2024 End: 11-28-2024 Urate [Mass/volume] in Serum or Plasma [facility] Work Phone: Comment on above: Expected: 08/29/2024, Expires: Start: 08-22-2024 BP Controlled (<130/80) BP Controlled (<130/80) [facility] Start: 08-16-2024 Annual PCP Team Chronic Disease Visit Annual PCP Team Chronic Disease Visit [facility] Start: 08-16-2024 BP Controlled (<130/80) BP Controlled (<130/80) [facility] Start: 07-24-2024 End: 07-24-2024 Patient encounter procedure 07/24/2024 10:40 AM EST Office Visit Family Medicine [place] [address] [place] [address] Federico Vigil MD [address] [place] [address] 6 mo follow up [facility] [place] Comment on above: 6 mo follow up Start: 07-24-2024 End: 07-24-2024 ambulatory 07/24/2024 10:00 AM EST Results Only [place] L[place] [facility] [address] [place] [address] CBC/IRON STUDIES* [place] [facility] Comment on above: CBC/IRON STUDIES* Start: 07-21-2024 Hepatitis B surface antibody level LDL Cholesterol [facility] Start: 07-19-2024 End: 07-19-2024 ambulatory 07/19/2024 11:00 AM EST Results Only [place] Lacywn [facility] [address] [place] [address] CBC/Iron studies [place] [facility] Comment on above: CBC/Iron studies Start: 07-18-2024 Advance Directive Discussion Advance Directive Discussion [facility] Start: 07-18-2024 Medicare Advantage Annual Wellness Visit Medicare [facility] Annual Wellness Visit [facility] Start: 06-22-2024 BP Controlled (<130/80) BP Controlled (<130/80) [facility] Start: 06-15-2024 End: 06-15-2024 ambulatory 06/15/2024 8:45 AM EST Results Only [place] Lan [facility] [address] [place] [address] [place] [facility] Start: 06-13-2024 End: 09-12-2024 Comprehensive metabolic 2000 panel - Serum or Plasma COMPREHENSIVE METABOLIC PANEL Lab Routine Hyponatremia Expected: 06/13/2024, Expires: 09/12/2024 [facility] Work Phone: Comment on above: Expected: 06/13/2024, Expires: Start: 06-12-2024 End: 06-12-2024 Patient encounter procedure 06/12/2024 10:00 AM EST Office Visit Family Medicine [place] [address] [place] [address] Ruth Miranda, BOARD CERTIFIED ARTS THERAPIST.THRESHING MACHINE OPERATOR [address] [place] [address] Pre - op check [facility] Medicine [place] Comment on above: Pre - op check Start: 06-06-2024 BP Controlled (<130/80) BP Controlled (<130/80) [facility] in Start: 05-24-2024 End: 05-24-2024 Patient encounter procedure 05/24/2024 9:20 AM EST Office Visit Family Medicine [place] [address] [place] [address] Ruth Miranda, BOARD CERTIFIED ARTS THERAPIST.THRESHING MACHINE OPERATOR [address] [place] [address] Lingering cough and cold Family [facility] [place] Comment on above: Lingering cough and cold Start: 05-18-2024 BP Controlled (<130/80) BP Controlled (<130/80) [facility] Start: 05-09-2024 Annual PCP Team Chronic Disease Visit Annual PCP Team Chronic Disease Visit [facility] Start: 05-09-2024 BP Controlled (<130/80) BP Controlled (<130/80) [facility] Start: 04-23-2024 End: 04-23-2024 ambulatory [place] [facility] Comment on above: CBC/FERRITIN/IRON STUDIES* 6 MO OV/LABS EARLY* Start: 04-06-2024 Annual PCP Team Chronic Disease Visit Annual PCP Team Chronic Disease Visit [facility] Start: 03-18-2024 Covid-19 Vaccine ( season) Covid-19 Vaccine ( season) [facility] Start: 03-18-2024 Covid-19 Vaccine ( season) Covid-19 Vaccine ( season) [facility] Start: 03-18-2024 Influenza vaccination Influenza Vaccine (#1) [facility] Start: 02-27-2024 End: 02-27-2024 Patient encounter procedure 02/27/2024 10:00 AM EDT Appointment Radiology [address] [place] [address] Bilateral extracranial carotid artery stenosis [I65.23]; History of right-sided carotid endarterectomy [Z98.890] Radiology Comment on above: Bilateral extracranial carotid artery st enosis [I65.23]; History of right-sided carotid endarterectomy [Z98.890] Start: 02-26-2024 End: 02-24-2025 US Carotid arteries - bilateral US CAROTID BILATERAL Radiology Routine Bilateral extracranial carotid artery stenosis History of right-sided carotid endarterectomy Expected: 02/26/2024, Expires: 02/24/2025 [facility] Work Phone: Comment on above: Expected: 02/26/2024, Expires: Start: 01-26-2024 End: 01-26-2024 Patient encounter procedure [facility] Comment on above: PO RCEA done on 12/25 by DOLLY PO RCEA done on 12/25 by DOLLY (JM PTO & pt out week of 01/30/24) Start: 01-23-2024 End: 04-23-2024 Comprehensive metabolic 2000 panel - Serum or Plasma COMPREHENSIVE METABOLIC PANEL Lab Routine BENIGN HYPERTENSION Elevated glucose Expected: 01/23/2024 (Approximate), Expires: 04/23/2024 [facility] Comment on above: Expected: 01/23/2024 (Approximate), Expi res: 04/23/2024 Start: 01-23-2024 End: 04-23-2024 Hemoglobin A1c in Blood HEMOGLOBIN A1C Lab Routine BENIGN HYPERTENSION Elevated glucose Expected: 01/23/2024 (Approximate), Expires: 04/23/2024 [facility] Comment on above: Expected: 01/23/2024 (Approximate), Expi res: 04/23/2024 Start: 01-23-2024 End: 04-23-2024 Lipid 1996 panel - Serum or Plasma LIPID PANEL BASIC Lab Routine BENIGN HYPERTENSION Mixed hyperlipidemia Expected: 01/23/2024 (Approximate), Expires: 04/23/2024 [facility] Work Phone: Comment on above: Expected: 01/23/2024 (Approximate), Expi res: 04/23/2024 Start: 01-23-2024 End: 01-23-2024 ambulatory [place] Lacy[place] [facility] Comment on above: CBC/FERRITIN/IRON STUDIES* (SO)CBC/FERRITIN/IRO N STUDIES* Start: 01-20-2024 End: 01-20-2024 Patient encounter procedure 01/20/2024 9:00 AM EDT Office Visit Family Medicine [place] [address] [place] [address] Federico Vigil MD [address] [place] [address] 6 month follow up Family Medicine [place] Comment on above: 6 month follow up Start: 01-18-2024 ANNUAL PCP TEAM CHRONIC DISEASE VISIT ANNUAL PCP TEAM CHRONIC DISEASE VISIT [facility] Start: 01-18-2024 BP CONTROLLED (<130/80) BP CONTROLLED (<130/80) [facility] inic Start: 01-04-2024 End: 01-04-2024 Patient encounter procedure [facility] [place] Comment on above: Return in about 6 [...] EDT PAT Pre Surgical Testing [address] [place] [id number] ENDARTERECTOMY CAROTID ADULT Pre Surgical Testing Comment on above: ENDARTERECTOMY CAROTID ADULT Start: 12-09-2023 End: 12-08-2024 Basic metabolic 2000 panel - Serum or Plasma BASIC METABOLIC PANEL Lab Routine Bilateral extracranial carotid artery stenosis Expected: 12/09/2023, Expires: 12/08/2024 [facility] Comment on above: Expected: 12/09/2023, Expires: Start: 12-09-2023 End: 12-08-2024 CBC panel - Blood by Automated count COMPLETE BLOOD COUNT Lab Routine Bilateral extracranial carotid artery stenosis Expected: 12/09/2023, Expires: 12/08/2024 [facility] Comment on above: Expected: 12/09/2023, Expires: 5 Start: 12-09-2023 End: 12-08-2024 PT panel - Platelet poor plasma by Coagulation assay PROTHROMBIN TIME Lab Routine Bilateral extracranial carotid artery stenosis Expected: 12/09/2023, Expires: 12/08/2024 [facility] Comment on above: Expected: 12/09/2023, Expires: Start: 12-09-2023 End: 03-09-2024 TYPE AND SCREEN,30 DAY TYPE AND SCREEN,30 DAY Blood Bank Routine Bilateral extracranial carotid artery stenosis Expected: 12/09/2023, Expires: 03/09/2024 [facility] Comment on above: Expected: 12/09/2023, Expires: 4 Start: 12-08-2023 End: 12-08-2023 Patient encounter procedure 12/08/2023 3:30 PM EDT Office Visit [facility] [address] [phone] Phi Arreguin MD 1 [facility] [address] [id number] 2 -3 Week F/up - Bilateral Extracranial Carotid Artery Stenosis. Repeat CTA NECK/CAROTID US on *11/24/23 & 11/28/23* [facility] Comment on above: 2 -3 Week F/up - Bilateral Extracranial Carotid Artery Stenosis. Repeat CTA NECK/CAROTID US on *11/24/23 & 11/28/23* Start: 11-30-2023 BP CONTROLLED (<130/80) BP CONTROLLED (<130/80) [facility] Start: 11-28-2023 End: 11-28-2023 Patient encounter procedure 11/28/2023 8:00 AM EDT Office Visit Vascular Surgery [address] [address] [id number] Vision changes [H53.9] Vascular Surgery Comment on above: Vision changes [H53.9] Start: 11-17-2023 End: 11-17-2023 Patient encounter procedure 11/17/2023 4:00 PM EDT Office Visit [facility] [address] [place] [address] Phi Arreguin MD 1 [facility] [address] [place], [place] [id number] f/up - Amarousis; carotid stenosis [facility] Comment on above: f/up - Amarousis; carotid stenosis Start: 11-17-2023 End: 02-16-2024 Basic metabolic 2000 panel - Serum or Plasma BASIC METABOLIC PANEL Lab Routine Bilateral extracranial carotid artery stenosis Amaurosis fugax Occlusion and stenosis of unspecified carotid artery Expected: 11/17/2023, Expires: 02/16/2024 [facility] Comment on above: Expected: 11/17/2023, Expires: Start: 11-14-2023 End: 11-14-2023 Patient encounter procedure 11/14/2023 1:00 PM EDT Appointment [facility] [address] [place] [id number] Vision changes [H53.9]; Amaurosis fugax [G45.3] [facility] Comment on above: Vision changes [H53.9]; Amaurosis fugax [G45.3] Start: 11-11-2023 End: 02-10-2024 CREATININE BLD CREATININE BLD Lab STAT Carotid stenosis, asymptomatic, bilateral Amaurosis fugax of right eye Expected: 11/11/2023, Expires: 02/10/2024 [facility] Work Phone: Comment on above: Expected: 11/11/2023, Expires: Start: 10-28-2023 ANNUAL PCP TEAM CHRONIC DISEASE VISIT ANNUAL PCP TEAM CHRONIC DISEASE VISIT [facility] Start: 10-27-2023 End: 01-26-2024 DUPL / OVERRIDE LAB ORDER DUPL / OVERRIDE LAB ORDER Lab Routine Iron deficiency anemia, unspecified iron deficiency anemia type Anemia, unspecified type Expected: 10/27/2023, Expires: 01/26/2024 [facility] Work Phone: Comment on above: Expected: 10/27/2023, Expires: Start: 10-25-2023 End: 01-24-2024 CBC W Auto Differential panel - Blood CBC + DIFF Lab STAT Anemia, unspecified type Iron deficiency anemia, unspecified iron deficiency anemia type Expected: 10/25/2023, Expires: 01/24/2024 [facility] Work Phone: Comment on above: Expected: 10/25/2023, Expires: Start: 10-25-2023 End: 01-24-2024 Ferritin [Mass/volume] in Serum or Plasma FERRITIN BLD Lab Routine Anemia, unspecified type Iron deficiency anemia, unspecified iron deficiency anemia type Expected: 10/25/2023, Expires: 01/24/2024 [facility] Work Phone: Comment on above: Expected: 10/25/2023, Expires: Start: 10-25-2023 End: 01-24-2024 Iron and Iron binding capacity panel - Serum or Plasma IRON + TIBC Lab Routine Anemia, unspecified type Iron deficiency anemia, unspecified iron deficiency anemia type Expected: 10/25/2023, Expires: 01/24/2024 [facility] Work Phone: Comment on above: Expected: 10/25/2023, Expires: Start: 09-28-2023 BP CONTROLLED (<130/80) BP CONTROLLED (<130/80) [facility] Start: 08-30-2023 ANNUAL PCP TEAM CHRONIC DISEASE VISIT ANNUAL PCP TEAM CHRONIC DISEASE VISIT [facility] Start: 08-30-2023 BP CONTROLLED (<130/80) BP CONTROLLED (<130/80) [facility] Start: 08-22-2023 End: 11-21-2023 PROTEIN ELECTROPHORESIS SERUM W/INTERP [facility] Work Phone: Comment on above: Expected: 08/22/2023, Expires: Start: 08-05-2023 ANNUAL PCP TEAM CHRONIC DISEASE VISIT ANNUAL PCP TEAM CHRONIC DISEASE VISIT [facility] Start: 08-05-2023 BP CONTROLLED (<130/80) BP CONTROLLED (<130/80) [facility] Start: 07-31-2023 [facility] Start: 07-29-2023 ANNUAL PCP TEAM CHRONIC DISEASE VISIT ANNUAL PCP TEAM CHRONIC DISEASE VISIT [facility] Start: 07-21-2023 ANNUAL PCP TEAM CHRONIC DISEASE VISIT ANNUAL PCP TEAM CHRONIC DISEASE VISIT [facility] Start: 07-18-2023 Advance Directive Discussion Advance Directive Discussion [facility] Start: 07-18-2023 Behavioral Health Screening Behavioral Health Screening [facility] Start: 07-15-2023 Patient referral [facility] Work Phone: Start: 05-11-2023 [facility] Start: 05-09-2023 End: 08-08-2023 CREATININE BLD CREATININE BLD Lab Routine Dizziness Tinnitus, unspecified laterality Expected: 05/09/2023, Expires: 08/08/2023 [facility] Work Phone: Comment on above: Expected: 05/09/2023, Expires: Start: 04-28-2023 ANNUAL PCP TEAM CHRONIC DISEASE VISIT ANNUAL PCP TEAM CHRONIC DISEASE VISIT [facility] Start: 03-22-2023 End: 01-29-2024 Ct angiography chest w/contrast/noncontrast CTA CHEST (NONGATED) W IVCON Radiology Routine Persistent atrial fibrillation (HCC) Dyspnea, unspecified type Expected: 03/22/2023, Expires: 01/29/2024 [facility] Work Phone: Comment on above: Expected: 03/22/2023, Expires: Start: 03-22-2023 End: 12-31-2023 Echocardiography ECHO Cardiology Routine Persistent atrial fibrillation (HCC) Dyspnea, unspecified type Expected: 03/22/2023, Expires: 12/31/2023 [facility] Work Phone: Comment on above: Expected: 03/22/2023, Expires: 4 Start: 03-18-2023 Covid-19 Vaccine ( season) Covid-19 Vaccine ( season) [facility] Start: 03-18-2023 Influenza vaccination [facility] Start: 01-15-2023 ANNUAL PCP TEAM CHRONIC DISEASE VISIT ANNUAL PCP TEAM CHRONIC DISEASE VISIT [facility] Start: 10-27-2022 End: 12-27-2022 Comprehensive metabolic 2000 panel - Serum or Plasma COMP METABOLIC PANEL Lab Routine BENIGN HYPERTENSION Expected: 10/27/2022, Expires: 12/27/2022 [facility] Work Phone: Comment on above: Expected: 10/27/2022, Expires: 3 Start: 10-27-2022 End: 12-27-2022 Lipid 1996 panel - Serum or Plasma LIPID PANEL BASIC Lab Routine Mixed hyperlipidemia Expected: 10/27/2022, Expires: 12/27/2022 [facility] Work Phone: Comment on above: Expected: 10/27/2022, Expires: 3 Start: 10-27-2022 End: 12-27-2022 Magnesium [Mass/volume] in Serum or Plasma MAGNESIUM BLD Lab Routine Gastroesophageal reflux disease, unspecified whether esophagitis present Expected: 10/27/2022, Expires: 12/27/2022 [facility] Work Phone: Comment on above: Expected: 10/27/2022, Expires: 3 Start: 10-25-2022 End: 12-25-2022 C reactive protein [Mass/volume] in Serum or Plasma [facility] Work Phone: Comment on above: Expected: 10/25/2022, Expires: 3 Start: 10-11-2022 End: 12-11-2022 C reactive protein [Mass/volume] in Serum or Plasma [facility] Work Phone: Comment on above: Expected: 10/11/2022, Expires: 3 Start: 10-11-2022 End: 12-11-2022 Erythrocyte sedimentation rate [facility] Work Phone: Comment on above: Expected: 10/11/2022, Expires: 3 Start: 10-07-2022 Patient referral [facility] Work Phone: Start: 10-07-2022 Patient discharge [facility] Start: 10-06-2022 Following clinical pathway protocol [facility] Start: 10-06-2022 Adult depression screening assessment DEPRESSION SCREENING [facility] Start: 10-06-2022 ANNUAL PCP TEAM CHRONIC DISEASE VISIT ANNUAL PCP TEAM CHRONIC DISEASE VISIT [facility] Start: 10-06-2022 Hepatitis B surface antibody level LDL Cholesterol [facility] Start: 10-06-2022 Admission procedure [facility] Start: 10-06-2022 Pulse taking [facility] Start: 10-06-2022 End: 10-06-2022 [facility] Start: 10-06-2022 Cardiac monitoring [facility] Start: 10-06-2022 Cardiac rehabilitation - phase 1 [facility] Start: 10-06-2022 Cardiac rehabilitation - phase 2 [facility] Start: 10-06-2022 Notification of physician [facility] Start: 10-06-2022 Oxygen therapy [facility] Start: 10-06-2022 Patient discharge [facility] Start: 10-06-2022 Taking patient vital signs [facility] Start: 10-06-2022 Vascular disease risk assessment [facility] Start: 10-06-2022 Vital signs measurements [facility] Start: 10-06-2022 [facility] Start: 09-29-2022 COVID-19 VACCINE (6 - Moderna series) COVID-19 VACCINE (6 - Moderna series) [facility] Start: 09-13-2022 End: 11-13-2022 Comprehensive metabolic 2000 panel - Serum or Plasma COMP METABOLIC PANEL Lab Routine Gout involving toe of right foot, unspecified cause, unspecified chronicity Expected: 09/13/2022, Expires: 11/13/2022 [facility] Work Phone: Comment on above: Expected: 09/13/2022, Expires: 3 Start: 09-13-2022 End: 11-13-2022 Urate [Mass/volume] in Serum or Plasma URIC ACID BLOOD Lab Routine Gout involving toe of right foot, unspecified cause, unspecified chronicity Expected: 09/13/2022, Expires: 11/13/2022 [facility] Work Phone: Comment on above: Expected: 09/13/2022, Expires: 3 Start: 08-05-2022 End: 10-05-2022 Urate [Mass/volume] in Serum or Plasma URIC ACID BLOOD Lab Routine History of gout Expected: 08/05/2022, Expires: 10/05/2022 [facility] Work Phone: Comment on above: Expected: 08/05/2022, Expires: 3 Start: 08-01-2022 End: 10-01-2022 CBC W Auto Differential panel - Blood CBC + DIFF Lab Routine Toe swelling Expected: 08/01/2022, Expires: 10/01/2022 [facility] Work Phone: Comment on above: Expected: 08/01/2022, Expires: 3 Start: 08-01-2022 End: 10-01-2022 Comprehensive metabolic 2000 panel - Serum or Plasma COMP METABOLIC PANEL Lab Routine Toe swelling Expected: 08/01/2022, Expires: 10/01/2022 [facility] Work Phone: Comment on above: Expected: 08/01/2022, Expires: 3 Start: 07-18-2022 ADVANCE DIRECTIVE DISCUSSION ADVANCE DIRECTIVE DISCUSSION [facility] Start: 07-18-2022 DEPRESSION ASSESSMENT DEPRESSION ASSESSMENT [facility] Start: 07-04-2022 .doppler Lower extremity vein [facility] Work Phone: Start: 03-18-2022 Influenza vaccination INFLUENZA (#1) [facility] Start: 02-04-2022 COVID-19 VACCINE (5 - Booster for Moderna series) COVID-19 VACCINE (5 - Booster for Moderna series) [facility] Start: 01-15-2022 End: 03-17-2022 Comprehensive metabolic 2000 panel - Serum or Plasma [facility] Work Phone: Comment on above: Expected: 01/15/2022, Expires: 2 Start: 01-15-2022 End: 03-17-2022 Creatine kinase [Enzymatic activity/volume] in Serum or Plasma [facility] Work Phone: Comment on above: Expected: 01/15/2022, Expires: 2 Start: 01-15-2022 End: 03-17-2022 Magnesium [Mass/volume] in Serum or Plasma [facility] Work Phone: Comment on above: Expected: 01/15/2022, Expires: 2 Start: 09-18-2021 COVID-19 VACCINE (4 - Booster for Moderna series) COVID-19 VACCINE (4 - Booster for Moderna series) [facility] Start: 07-18-2021 DEPRESSION ASSESSMENT DEPRESSION ASSESSMENT [facility] Start: 10-05-2016 Urine microalbumin profile [facility] Start: 2005 RSV Vaccine (1 - 1-dose 60+ series) RSV Vaccine (1 - 1-dose 60+ series) [facility] Start: 1995 SHINGRIX VACCINE (1 of 2) SHINGRIX VACCINE (1 of 2) [facility] Start: 1963 BP CONTROLLED (<130/80) BP CONTROLLED (<130/80) [facility] in Basic metabolic 2007 panel with ionized calcium - Serum or Plasma [facility] Basic metabolic 2008 panel with ionized calcium - Serum or Plasma [facility] C reactive protein [Mass/volume] in Serum or Plasma [facility] End: 10-26-2024 CBC W Auto Differential panel - Blood COMPLETE BLOOD COUNT AND DIFFERENTIAL Lab STAT Iron deficiency anemia, unspecified iron deficiency anemia type Every 3 months for 4 Occurrences starting 10/27/2023 until 10/26/2024 [facility] Work Phone: Comment on above: Every 3 months for 4 Occurrences startin g 10/27/2023 until 10/26/2024 COVID & INFLUENZA A/ B & RSV PCR, ROUTINE COVID & INFLUENZA A/B & RSV PCR, ROUTINE Microbiology Routine URI, acute Ordered: 09/03/2024 [facility] Work Phone: Comment on above: Ordered: 09/03/2024 Ct angiography chest w/contrast/noncontrast CTA CHEST (NONGATED) W IVCON Radiology Routine Persistent atrial fibrillation (HCC) Dyspnea, unspecified type 03/29/2023 8:30 AM EDT [facility] Work Phone: End: 06-07-2024 CTA HEAD WO/W IVCON CTA HEAD WO/W IVCON Radiology Routine Dizziness Tinnitus, unspecified laterality 1 Occurrences starting 05/09/2023 until 06/07/2024 [facility] Work Phone: Comment on above: 1 Occurrences starting 05/09/2023 until 06/07/2024 End: 06-07-2024 CTA NECK W IVCON CTA NECK W IVCON Radiology Routine Dizziness Tinnitus, unspecified laterality 1 Occurrences starting 05/09/2023 until 06/07/2024 [facility] Work Phone: Comment on above: 1 Occurrences starting 05/09/2023 until 06/07/2024 Cyclic citrullinated peptide IgG Ab [Units/volume] in Serum or Plasma [facility] ECG B/O W INTERP (ME D OFFICE) ECG B/O W INTERP (MED OFFICE) ECG Routine Atrial fibrillation, unspecified type (HCC) Ordered: 11/29/2022 [facility] Work Phone: Comment on above: Ordered: 11/29/2022 ECG B/O W INTERP (ME D OFFICE) ECG B/O W INTERP (MED OFFICE) ECG Routine Paroxysmal atrial fibrillation (HCC) Ordered: 06/22/2023 [facility] Work Phone: Comment on above: Ordered: 06/22/2023 End: 12-08-2024 ECG COMPLETE ECG COMPLETE ECG Routine Bilateral extracranial carotid artery stenosis 1 Occurrences starting 12/09/2023 until 12/08/2024 [facility] Comment on above: 1 Occurrences starting 12/09/2023 until 12/08/2024 Erythrocyte mean corpuscular volume determination [facility] Erythrocyte sediment ation rate [facility] EVENT MONITOR EVENT MONITOR Ca rdiology Routine Persistent atrial fibrillation (HCC) Dyspnea, unspecified type Ordered: 12/30/2022 [facility] Work Phone: Comment on above: Ordered: 12/30/2022 End: 10-26-2024 Ferritin [Mass/volume] in Serum or Plasma FERRITIN Lab Routine Iron deficiency anemia, unspecified iron deficiency anemia type Anemia, unspecified type Every 3 months for 4 Occurrences starting 10/27/2023 until 10/26/2024 [facility] Work Phone: Comment on above: Every 3 months for 4 Occurrences startin g 10/27/2023 until 10/26/2024 H&P for surgery H&P FOR SURGERY Procedures Routine Bilateral extracranial carotid artery stenosis Ordered: 12/09/2023 [facility] Work Phone: Comment on above: Ordered: 12/09/2023 Hematocrit [Volume Fraction] of Blood [facility] Hemoglobin [Mass/vol ume] in Blood [facility] HLA-B27 [Presence] b y KVNG with probe detection [facility] Influenza virus A an d B RNA and SARS-CoV-2 (COVID-19) N gene panel - Respiratory specimen by KVNG with probe detection COVID WITH FLUA+B, ROUTINE Microbiology Routine Suspected COVID-19 virus infection Ordered: 04/15/2022 [facility] Work Phone: Comment on above: Ordered: 04/15/2022 End: 10-26-2024 Iron and Iron binding capacity panel - Serum or Plasma IRON AND TIBC Lab Routine Iron deficiency anemia, unspecified iron deficiency anemia type Every 3 months for 4 Occurrences starting 10/27/2023 until 10/26/2024 [facility] Work Phone: Comment on above: Every 3 months for 4 Occurrences startin g 10/27/2023 until 10/26/2024 Leukocytes [#/volume ] in Blood [facility] Mean corpuscular hemoglobin concentration determination [facility] Mean corpuscular hemoglobin determination [facility] Neutrophil count [facility] Neutrophil percent differential count [facility] NM CARDIAC PERF STRESS/PHARM NM CARDIAC PERF STRESS/PHARM Radiology Routine Atrial fibrillation, unspecified type (HCC) Shortness of breath Ordered: 09/06/2022 [facility] Work Phone: Comment on above: Ordered: 09/06/2022 Patient Education [facility] Work Phone: Patient referral [facility] Work Phone: Platelets [#/volume] in Blood [facility] Prothrombin time [facility] Red blood cell count [facility] Red cell distributio n width determination [facility] Urinalysis complete panel - Urine [facility] US Carotid arteries [facility] End: 11-09-2024 US Carotid arteries - bilateral US CAROTID ARTERIES [facility] V[facility] Lab Routine Vision changes Amaurosis fugax 1 Occurrences starting 11/10/2023 until 11/09/2024 [facility] Work Phone: Comment on above: 1 Occurrences starting 11/10/2023 until 11/09/2024 End: 12-16-2024 US Carotid arteries - bilateral US CAROTID BILATERAL Radiology Routine Bilateral extracranial carotid artery stenosis Amaurosis fugax Occlusion and stenosis of unspecified carotid artery 1 Occurrences starting 11/17/2023 until 12/16/2024 [facility] Work Phone: Comment on above: 1 Occurrences starting 11/17/2023 until 12/16/2024 End: 02-22-2025 US Carotid arteries - bilateral [facility] CAROTID ARTERIES [facility] Vascular Lab Routine S/P carotid endarterectomy Carotid stenosis, asymptomatic, bilateral 1 Occurrences starting 02/23/2024 until 02/22/2025 [facility] Work Phone: Comment on above: 1 Occurrences starting 02/23/2024 until 02/22/2025 US Heart [facility] End: 08-20-2023 Us soft tissue head & neck real time imge docm US THYROID/PARATHYROID Radiology Routine Enlarged thyroid 1 Occurrences starting 07/21/2022 until 08/20/2023 [facility] Work Phone: Comment on above: 1 Occurrences starting 07/21/2022 until 08/20/2023 XR Chest PA and Lateral [facility] End: 05-16-2023 XR FOOT GENERAL 3V AP/LAT/OBL LEFT XR FOOT GENERAL 3V AP/LAT/OBL LEFT Radiology Routine Pain in left foot 1 Occurrences starting 04/16/2022 until 05/16/2023 [facility] Work Phone: Comment on above: 1 Occurrences starting 04/16/2022 until 05/16/2023 End: 04-20-2022 XR FOOT GENERAL 3V AP/LAT/OBL LEFT [facility] Work Phone: Comment on above: 1 Occurrences starting 04/20/2022 until 04/20/2022 End: 11-10-2023 XR FOOT GENERAL 3V AP/LAT/OBL LEFT XR FOOT GENERAL 3V AP/LAT/OBL LEFT Radiology Routine Acute gout involving toe of left foot, unspecified cause Pain in left foot 1 Occurrences starting 10/11/2022 until 11/10/2023 [facility] Work Phone: Comment on above: 1 Occurrences starting 10/11/2022 until 11/10/2023 XR FOOT GENERAL 3V AP/LAT/OBL LEFT XR FOOT GENERAL 3V AP/LAT/OBL LEFT Radiology Routine Acute gout involving toe of left foot, unspecified cause Pain in left foot 10/11/2022 2:34 PM EDT [facility] Work Phone: End: 12-16-2022 XR FOOT GENERAL 3V AP/LAT/OBL RIGHT XR FOOT GENERAL 3V AP/LAT/OBL RIGHT Radiology Routine Pain 1 Occurrences starting 11/16/2021 until 12/16/2022 [facility] Work Phone: Comment on above: 1 Occurrences starting 11/16/2021 until 12/16/2022 End: 08-31-2023 XR FOOT GENERAL 3V AP/LAT/OBL RIGHT XR FOOT GENERAL 3V AP/LAT/OBL RIGHT Radiology STAT Toe swelling 1 Occurrences starting 08/01/2022 until 08/31/2023 [facility] Work Phone: Comment on above: 1 Occurrences starting 08/01/2022 until 08/31/2023 End: 03-28-2025 XR Lumbar spine 3 Views XR LUMBAR GENERAL 3V AP/LAT/L5-S1 Radiology Routine Acute right-sided low back pain without sciatica 1 Occurrences starting 02/27/2024 until 03/28/2025 [facility] Work Phone: Comment on above: 1 Occurrences starting 02/27/2024 until 03/28/2025 XR Lumbar spine 3 Views XR LUMBA R GENERAL 3V AP/LAT/L5-S1 Radiology Routine Acute right-sided low back pain without sciatica 02/28/2024 3:05 PM EDT [facility] Work Phone: [facility] [place] [facility] Work Phone: [facility] Immunizations Immunization Date Immunization Notes Care Provider [facility] 05-02-2024 influenza, high dose seasonal, preservative-free Immunization [place] Work Phone: [facility] 05-02-2024 influenza virus vaccine, unspecified formulation Danny Alfonso MA [facility] 04-19-2024 Covid (Spikevax) Dr. Federico willis MD Work Phone: [facility] 04-22-2023 influenza (HD-IIV4) vaccine, age 65+ yr, high dose, quadrivalent, PF (FLUZONE HIGH-DOSE) Immunization [place] Work Phone: [facility] Work Phone: 04-22-2023 influenza virus vaccine, unspecified formulation Federico Vigil MD Work Phone: [facility] 04-28-2022 influenza, high-dose , quadrivalent vaccine (FLUZONE HIGH DOSE QUADRIVALENT) Ruth Miranda BOARD CERTIFIED ARTS THERAPIST.THRESHING MACHINE OPERATOR Work Phone: [facility] Work Phone: 04-28-2022 influenza virus vaccine, unspecified formulation Malathi Galeas BOARD CERTIFIED ARTS THERAPIST.THRESHING MACHINE OPERATOR Work Phone: [facility] 04-08-2021 influenza, high-dose , quadrivalent vaccine (FLUZONE HIGH DOSE QUADRIVALENT) Karma Alberto BOARD CERTIFIED ARTS THERAPIST.THRESHING MACHINE OPERATOR Work Phone: [facility] 09-22-2020 COVID-19 vaccine, fu ll dose (MODERNA) Karma Alberto BOARD CERTIFIED ARTS THERAPIST.THRESHING MACHINE OPERATOR Work Phone: [facility] 08-25-2020 COVID-19 vaccine, fu ll dose (MODERNA) Karma Alberto BOARD CERTIFIED ARTS THERAPIST.THRESHING MACHINE OPERATOR Work Phone: [facility] 04-19-2020 influenza, high-dose , quadrivalent vaccine (FLUZONE HIGH DOSE QUADRIVALENT) Karma Alberto BOARD CERTIFIED ARTS THERAPIST.THRESHING MACHINE OPERATOR Work Phone: [facility] 05-01-2019 influenza, high dose seasonal, preservative-free Karma Alberto BOARD CERTIFIED ARTS THERAPIST.THRESHING MACHINE OPERATOR Work Phone: [facility] 05-01-2018 influenza, high dose seasonal, preservative-free Karma Alberto BOARD CERTIFIED ARTS THERAPIST.THRESHING MACHINE OPERATOR Work Phone: [facility] 04-27-2017 influenza, high dose seasonal, preservative-free Karma Alberto BOARD CERTIFIED ARTS THERAPIST.THRESHING MACHINE OPERATOR Work Phone: [facility] 07-08-2016 pneumococcal polysaccharide vaccine, 23 valent Karma Alberto BOARD CERTIFIED ARTS THERAPIST.THRESHING MACHINE OPERATOR Work Phone: [facility] 05-21-2016 influenza, high dose seasonal, preservative-free Karma Alberto BOARD CERTIFIED ARTS THERAPIST.THRESHING MACHINE OPERATOR Work Phone: [facility] Work Phone: 06-02-2015 influenza, high dose seasonal, preservative-free Karma Alberto BOARD CERTIFIED ARTS THERAPIST.THRESHING MACHINE OPERATOR Work Phone: [facility] 03-26-2015 pneumococcal conjuga te vaccine, 13 valent Karma Alberto BOARD CERTIFIED ARTS THERAPIST.THRESHING MACHINE OPERATOR Work Phone: [facility] Work Phone: 07-01-2008 influenza virus vaccine, unspecified formulation Karma Alberto BOARD CERTIFIED ARTS THERAPIST.THRESHING MACHINE OPERATOR Work Phone: [facility] 06-05-2007 influenza virus vaccine, unspecified formulation Karma Alberto BOARD CERTIFIED ARTS THERAPIST.THRESHING MACHINE OPERATOR Work Phone: [facility] Work Phone: 10-05-2006 tetanus toxoid, reduced diphtheria toxoid, and acellular pertussis vaccine, adsorbed Karma Alberto BOARD CERTIFIED ARTS THERAPIST.THRESHING MACHINE OPERATOR Work Phone: [facility] Work Phone: 05-05-2005 influenza virus vaccine, whole virus Karma Alberto BOARD CERTIFIED ARTS THERAPIST.[facility] Work Phone: [facility] Work Phone: No information available. iTta Angulo [facility] Work Phone: Payers Date Payer Category Payer Self-pay [id number] 2021 Medicare AETNA MEDICARE A ETNA MEDICARE PPO [id number] 2021-Present [phone] [address] [place] [address] O [id number]. [id number] 2021 Medicare (Managed Care) AETNA ME ROS[place]IO [id number]. [id number] 2021 Private Health Insurance [facility] [id number] 2019 Medicare [id number]. 1.13.159.2. [id number] 2014 Unknown [id number] 1945 Unknown [id number] 2.16.840.1.926485.3.579.2. 594 Unknown [id number] 2.16.840.1.950468.3.579.2. 462 Unknown [id number] 2.16.840.1.108716.3.579.2. 462 Unknown [id number] 2.16.840.1.628224.3.579.2. 462 Unknown [id number] 2.16.840.1.509829.3.579.2. 462 Unknown [id number] 2.16.840.1.478889.3.579.2. 462 Unknown [id number] 2.16.840.1.846308.3.579.2. 462 Unknown [id number] 2.16.840.1.148428.3.579.2. 462 Unknown [id number] 2.16.840.1.553543.3.579.2. 462 Unknown [id number] 2.16.840.1.412550.3.579.2. 462 Unknown [id number] 2.16.840.1.111630.3.579.2. 462 Unknown [id number] 2.16.840.1.206116.3.579.2. 462 Unknown [id number] 2.16.840.1.736453.3.579.2. 462 Unknown [id number] 2.16.840.1.680197.3.579.2. 462 Unknown [id number] 2.16.840.1.307121.3.579.2. 462 Unknown [id number] 2.16.840.1.366871.3.579.2. 462 Unknown [id number] 2.16.840.1.717514.3.579.2. 462 Unknown [id number] 2.16840.1.766750.3.579.2. 462 Unknown [id number] 2.16840.1.746601.3.579.2. 462 Unknown [id number] 2.840.1.273868.3.579.2. 462 Unknown [id number] 2.840.1.082354.3.579.2. 462 Unknown [id number] 2.840.1.969343.3.579.2. 462 Unknown [id number] 2.840.1.739369.3.579.2. 462 Unknown [id number] 2.840.1.729513.3.579.2. 462 Unknown [id number] 2.840.1.421969.3.579.2. 462 Unknown [id number] 2.16840.1.240709.3.579.2. 462 Unknown [id number] 2.840.1.908428.3.579.2. 462 Unknown [id number] 2.16840.1.075297.3.579.2. 462 Unknown [id number] 2.16840.1.260145.3.579.2. 462 Unknown [id number] 2.16840.1.094078.3.579.2. 462 Unknown [id number] 2.16840.1.292529.3.579.2. 462 Unknown [id number] 2.16840.1.549190.3.579.2. 462 Unknown [id number] 2.16.840.1.567079.3.579.2. 462 Unknown [id number] 2.16.840.1.442149.3.579.2. 462 Unknown [id number] 2.16.840.1.327043.3.579.2. 462 Unknown [id number] 2.16.840.1.311306.3.579.2. 462 Unknown [id number] 2.16.840.1.916705.3.579.2. 462 Unknown [id number] 2.16.840.1.770610.3.579.2. 462 Unknown [id number] 2.16.840.1.954435.3.579.2. 462 Unknown [id number] 2.16.840.1.243718.3.579.2. 462 Social History Date Type Detail Facility Start: 07-03-2022 End: 10-25-2023 Assertion Unknown if ever smoked [facility] Work Phone: Start: 02-22-2011 End: 01-08-2025 Tobacco smoking status NHIS Ex-smoker [facility] Start: 07-18-1961 End: 07-18-1971 History of tobacco use Current smoker [facility] Start: 07-18-1961 End: 07-18-1971 History of tobacco use Cigarette Smoker [facility] Start: 10-06-2021 End: 08-29-2024 Alcohol intake Current drinker of alcohol (finding) [facility] Start: 10-06-2021 End: 11-29-2022 Alcohol intake [facility] Work Phone: Start: 1945 Sex Assigned At Not on file C [facility] Start: 06-29-2020 End: 04-20-2022 Exposure to SARS-CoV-2 (event) Not sure [facility] Start: 02-22-2011 End: 03-29-2024 Tobacco use and exposure Smokeless tobacco non-user [facility] Start: 1945 Sex Assigned At Male [facility] Start: 11-29-2022 Alcohol Comment daily beer [facility] Start: 11-29-2022 End: 01-17-2023 Tobacco use panel [facility] Work Phone: Adult Depression Screening Assessment 0 [facility] Work Phone: Start: 03-29-2023 Alcohol Comment weekends beer [facility] Start: 05-18-2023 End: 09-02-2023 Alcohol intake Ex-drinker (finding) [facility] Start: 05-18-2023 Alcohol Comment occasional [facility] Start: 12-20-2023 Alcohol Comment occasional, 2 beers a week [facility] How often to you hav e a drink containing alcohol? 2-4 times a month [facility] How many standard drinks containing alcohol do you have on a typical day? 1 or 2 [facility] How often do you hav e 6 or more drinks on 1 occasion? Never [facility] Medical Equipment Procedure Code Equipment Code Equipment Origin al Text Equipment Identifier Dates Surgical procedure on lumbar spine including any or all of laminectomy, discectomy, a Gelatin haemostatic agent [id number] FDA Start: 06-20-2024 Assemb Tapr Ball Adj Nk - [id number] Start: 07-23-2010 Comment on above: Description: left Head Hum 18mm 52 mm Ecc Glob Ap - [id number] Start: 07-23-2010 Comment on above: Description: right Stem Hum 10mm Gl ob Ap - [id number] Start: 07-23-2010 Comment on above: Description: right Drug-eluting coronary artery stent, wyi-hmhttmlrhczfu-ih lymer-coated [id number] FDA Start: 10-06-2022 Drug-eluting coronary artery stent, dck-iyhqgrulbdhlu-yj lymer-coated [id number] FDA Start: 10-06-2022 Femoral vessel suture implantation set [id number] FDA Start: 10-06-2022 Patch Xenosure Bovine Pericardial Tissue 8x.8cm Vascular Sterile - [id number] Start: 12-26-2023 Patch Xenosure Bovine Pericardial Tissue 8x.8cm Vascular Sterile - [id number]_[facility] Start: 12-26-2023 Goals Date Patient Goal Desired Activity /State Personal health goal Functional Status Date Assessment Result Facility 10-12-2024 Total score [AUDIT-C] 2 10/13/19 11:08 AM EDT User, Frac[employer]ot [facility] 10-12-2024 How often to you hav e a drink containing alcohol? 2-4 times a month 10/12/2024 11:08 AM EDT User, Mychart 2-4 times a month [facility] 10-12-[address] inks containing alcohol do you have on a typical day? 1 or 2 10/12/2024 11:08 AM EDT User, Mychart 1 or 2 [facility] 10-12-2024 How often do you hav e 6 or more drinks on 1 occasion? Never 10/12/2024 11:08 AM EDT User, Santinohart Never [facility] 12-27-2023 Are you deaf, or do you have serious difficulty hearing No 12/27/2023 11:51 AM Mari Salomon RN No [facility] 12-27-2023 Are you blind, or do you have serious difficulty seeing, even when wearing glasses No 12/27/2023 11:51 AM Mari Salomon, KEANU No [facility] 12-27-2023 Do you have serious difficulty walking or climbing stairs No 12/27/2023 11:51 AM Mari Salomon, KEANU No [facility] 12-27-2023 Do you have difficul ty dressing or bathing No 12/27/2023 11:51 AM Mari Salomon, KEANU No [facility] 12-27-2023 Because of a physica l, mental, or emotional condition, do you have difficulty doing errands alone such as visiting a physician's office or shopping No 12/27/2023 11:51 AM Mari Salomon, KEANU No [facility] 10-07-2022 Functional status [facility] Work Phone: Mental Status Date Assessment Result Facility 12-27-2023 Because of a physica l, mental, or emotional condition, do you have serious difficulty concentrating, remembering, or making decisions No 12/27/2023 11:51 AM Mari Salomon, KEANU No [facility] 07-31-2023 Cognitive function Voice/Name [facility] Work Phone: 10-07-2022 Cognitive function Voice/Name [facility] Work Phone: Clinical Notes 10-09-2007 to 05-16-2025 Note Date & Type Note Facility 05-16-2025 Note HNO ID: [id number] Author: ?, ?, ? Service: ? Author Type: ? Type: Progress Notes Filed: 05/16/2025 15:40 Note Text: POPULATION HEALTH NAVIGATION OUTREACH Action/ - HCC Wellness: Never done Flu: Overdue for dose 1 since 03/18/2025 Called Patient: Left Voicemail AND Sent [employer]ett Reason for Outreach Care Gap/HCC or Scheduling Wellness Visits Care Gaps due: Medicare Annual Wellness Visit Flu Vaccine Patient Contacted: Unable or unnecessary to reach patient: Left message PixelFlow message sent Navigation Signature: James Berger May 16, 2025 3:37 PM [facility] 05-16-2025 Note Patient Outreach (NE TNAV) SHELTON KAY ([id number]) 1945 M Date Time Provider Department 05/16/25 [facility]ER[facility]IL During your visit today, we recorded the following information about you: James Berger 05/16/2025 3:40 PM Signed POPULATION HEALTH NAVIGATION OUTREACH Action/ - 0 HCC Wellness: Never done Flu: Overdue for dose 1 since 03/18/2025 Called Patient: Left Voicemail AND Sent FilesXhart Reason for Outreach Care Gap/HCC or Scheduling Wellness Visits Care Gaps due: Medicare Annual Wellness Visit Flu Vaccine Patient Contacted: Unable or unnecessary to reach patient: Left message MyChart message sent Navigation Signature: James Berger May 16, 2025 3:37 PM Allergies As of Date: 05/16/2025 Noted Allergy Reaction PLAQUENIL (HYDROXYCHLOROQUINE) 01/20/2024 9 - Itching SPIRONOLACTONE 02/03/2023 14 - Other: See Comments Comments: Dizziness and severe headaches INDOCIN (INDOMETHACIN SODIUM) 05/05/2005 6 - Diarrhea MOBIC (MELOXICAM) 08/16/2014 6 - Diarrhea Date Reviewed: 11/09/2024 Reviewed by: Юлия Linn MA - Fully Assessed Reason for Visit: Population Health Navigation Outreach [3910] Cmt: Nicky Yuen Brianna Prescriptions as of 05/16/2025 - allopurinol (ZYLOPRIM) 100 mg tablet Take 1 tablet by mouth two times a day. - pantoprazole DR (PROTONIX) 20 mg tablet Take 1 tablet by mouth daily before breakfast. Take on empty stomach, 1/2 hr before meal. - lisinopril (ZESTRIL) 5 mg tablet Take 5 mg by mouth two times a day. [facility] - acetaminophen (TYLENOL) 325 mg [...] month 07/16/2022TP Problem List As Of Date 05/16/2025 Noted Resolved Hyperlipidemia [E78.5] 05/05/2005 Hypertension [I10] [...] by other means [Z96.*10/01/2010 Other physical therapy [OJX5809] 10/01/2010 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] 06/28/2011 Gastroesophageal reflux disease [K21.9] 04/27/2017 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 PAD (peripheral artery disease) (HCC) [I73.9] 05/01/2019 Atrial fibrillation (HCC) [I48.91] 08/30/2022 Ischemic cardiomyopathy [I25.5] Status post catheter ablation of atrial fibrill*12/21/2022 Paroxysmal atrial fibrillation (HCC) [I48.0] 03/28/2023 Status post ablation of atrial flutter [Z98.890*03/28/2023 Dyspnea [R06.00] 03/29/2023 Coronary artery disease involving [place] gates*05/19/2023 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] 02/03/2023 Diagnosed: 05/19/2023 History of arthritis [Z87.39] 05/19/2023 Former smoker [Z87.891] 05/19/2023 Anemia [D64.9] 05/19/2023 Dysphagia [R13.10] 05/20/2023 History of colonic polyps [Z86.0100] 05/20/2023 Cardiomyopathy, unspecified type (HCC) [I42.9] 06/22/2023 Preop examination [Z01.818] 12/19/2023 S/P carotid endarterectomy [Z98.890] 12/26/2023 Encounter Status:Closed by JAMES BERGER on 05/16/25 [facility] 03-07-2025 Progress note [facility] 03-07-2025 Progress note Note Date/Time March 07, 2025 10:44am [facility] [address] [place] [address] OFFICE VISIT Date of Service: 03/07/25 MR#: [id number] Acct: [id number] Name: SHELTON KAY Rep #: [id number] : 1945 Provider: Dr. Osmar Del Cid MD Age/Sex: 79/M Location: [facility] Status: Signed HPI HPI History of Present Illness Surgical H&P: No Details: The patient presents for evaluation and discussion regarding the need for an implantable cardioverter-defibrillator (ICD). He is a 79-year-old male with a history of paroxysmal atrial fibrillation status post ablation, resolved tachycardia-mediated cardiomyopathy, coronary artery disease, hypertension, and hyperlipidemia. The primary indication for consideration of an ICD is a significantly reduced left ventricular ejection fraction, last measured at 35%, which places him at increased risk for sudden cardiac arrest. The patient reports he is asymptomatic at this time. He does note experiencing easy bruising and blood spots on his skin. The patient is maintained on apixaban, carvedilol, and Entresto. An echocardiogram performed on 08/31/2022 revealed a normal-sized left ventriclewith moderately decreased systolic function and an estimated ejection fraction (EF) of 40% ? 5%. Additional findings included global hypokinesis, a mildly dilated left atrium, mild (1-2+) mitral regurgitation, and mild (1+) tricuspid regurgitation. Left ventricular diastolic function was not evaluated due to atrial fibrillation. A pharmacologic stress nuclear imaging study on 09/24/2022 demonstrated a moderate-sized anterior, apical, and septal reversible defect suggestive of ischemia. There were no ischemic ECG changes or cardiac dysrhythmias noted. The gated Cardiolite study reported a left ventricular ejection fraction (LVEF) of 49%. A cardiac catheterization on 10/06/2022 reported an LVEF of 35%. Findings included a 90% ostial and proximal obtuse marginal 1 (OM1) lesion, heavily calcified proximal and mid-left anterior descending (LAD) artery with 50% stenosis, a porcelain aorta, and a heavily calcified, ulcerated lesion in the proximal right innominate artery. A successful percutaneous transluminal coronary angioplasty with drug-eluting stent placement to the proximal OM1 was performed. Review of systems: CARDIOVASCULAR: Edema negative. HEMATOLOGIC: Easily bruises positive Physical examination: GENERAL APPEARANCE: The patient is an elderly male who is alert, oriented, and conversant, appearinghis stated age and in no acute distress. LUNGS: Lungs are clear to auscultation bilaterally with no rales or rhonchi appreciated. CARDIAC: Regular rate and rhythm are noted. A grade 2/6 systolic murmur is auscultated. No rubs or gallops are appreciated. MUSCLES/EXTREMITIES: There is no peripheral edema in the lower extremities. SKIN: Skin is noted to be thin with scattered ecchymoses. NEUROLOGICAL: Patient is alert and oriented to person, place, and time. Speech is clear and coherent. PSYCHIATRIC: Mood and affect are appropriate to the situation. Intake Vital Signs 01/08/25 07:53 01/22/25 08:33 03/07/25 10:02 Height 5 ft 10 in 5 ft 10 in 5 ft 10 in Weight: 171 lb BMI 24.5 BP 142/60 H Blood Pressure Location Lt brachial Position Sitting Respiration 16 Pulse 64 Pulse Source Monitor Intake Visit Reasons: ESTABLISH Student Development Advisor Required: No Accompanied by: Granddaughter Is patient in pain?: No Allergies indomethacin (From Indocin) Allergy (Verified 03/07/25 10:02) Bleeding meloxicam (From Mobic) Adverse Reaction (Intermediate, Verified 03/07/25 10:02) Diarrhea spironolactone Adverse Reaction (Intermediate, Verified 03/07/25 10:02) Dizziness and severe headaches Medications ?Medication ?Instructions ?Recorded ?Confirmed ?Type simvastatin 20 mg tablet 20 mg PO QPM cholesterol 03/07/25 History allopurinol 100 mg tablet 100 mg PO BID gout 09/07/22 03/07/25 History pantoprazole 20 mg tablet,delayed 20 mg PO DAILY reflu x 09/07/22 03/07/25 History release melatonin 5 mg capsule 5 mg PO QHS sleep 09/10/22 0 03/07/25 History polyethylene glycol 3350 17 gram 17 g PO DAILY PRN CON STIPATION 02/16/24 History oral powder packet (Miralax) acetaminophen 325 mg capsule 650 mg (2 x 325 mg) PO Q6 H PRN 06/29/24 03/07/25 Rx fever or pain #30 caps apixaban 5 mg tablet (Eliquis) 5 mg PO BID blood thinn er #180 tabs 07/24/24 03/07/25 Rx gabapentin 300 mg capsule 300 mg PO BID 09/14/2403/07 History carvedilol 6.25 mg tablet 6.25 mg PO BID #180 tabs 04/1103/07/25 Rx potassium chloride 20 mEq 20 meq PO QDAY #30 tabs 02/0803/07/25 Rx tablet,extended release sacubitril 49 mg-valsartan 51 mg 1 tab PO BID 01/22/25 03/07/25 History tablet (Entresto) aspirin 81 mg tablet 81 mg PO QDAY 03/07/2503/07 History calcium carbonate (Tums) 200 mg PO DAILY 03/07/25 History furosemide 40 mg tablet 40 mg PO DAILY PRN Swelling or 03/07/25 History weight gain vit d3 PO DAILY 03/07/25 History Ejection fraction %: 35 Have you fallen in the past year?: No PFSH Medical History Mitral insufficiency Compression fracture of vertebra Closed compression fracture of L5 vertebra Intractable low back pain Wears hearing aid Loss of hearing Wears glasses Wears dentures History of steroid therapy Back pain Walker as ambulation aid Arthritis DDD (degenerative disc disease) Low iron Excessive bleeding High cholesterol Diverticulosis History of diverticulitis Former smoker Shortness of breath on exertion History of CHF (congestive heart failure) Leg cramps History of echocardiogram History of stress test Cardiology follow-up encounter Cervical radiculopathy Anemia Weight gain Edema Other cervical disc degeneration, mid-cervical region, unspecified level Bradycardia Lightheadedness Fatigue Presence of stent in coronary artery (~10/06/22) Atherosclerotic heart disease of [place] coronary artery without angina pectoris Dyslipidemia Cardiomyopathy SOB (shortness of breath) Snoring Erectile dysfunction Avascular necrosis Allergic rhinitis Diverticulosis of colon Benign neoplasm of colon Hepatomegaly PAD (peripheral artery disease) Essential (primary) hypertension Mixed hyperlipidemia Atrial fibrillation Prominent abdominal aortic pulsation Subclavian arterial stenosis Carotid stenosis, bilateral GERD (gastroesophageal reflux disease) CAD (coronary artery disease) Gout Osteoarthritis Chronic back pain Surgical History Status post laminectomy History of cardiac catheterization (~12/2024) History of right-sided carotid endarterectomy (~12/26/23) History of radiofrequency ablation (RFA) for complex left atrial arrhythmia (~12/2022) Presence of coronary angioplasty implant and graft (~10/06/22) History of tonsillectomy and adenoidectomy S/P eye surgery S/P knee replacement S/P hip replacement S/P shoulder replacement Family History Mother CVA (cerebral vascular accident) [...] Number of servings: 2 ROS Const Const: Negative for fatigue or weakness Eyes Eyes: Negative for change in vision ENT ENT: Negative for dizziness or balance problems Cardio Chest Pain: No Palpitations: No Edema: None Resp Respiratory: Negative for SOB with activity, SOB at rest or SOB orthopnea\\SOB lying down GI GI: Negative nausea or heartburn Musc Musc: Negative for balance problems Neuro Neuro: Positive for lightheadedness; Negative for dizziness, near syncope, syncope or weakness Endo Endo: Negative for fatigue Supplemental Info Supplemental Information Labs: HDL Cholesterol 48 mg/dL (40-) Cholesterol 165 mg/dL (<=200) Triglycerides 101 mg/dL (-199) Diagnostics: Echocardiogram Cardiac Catheterization Chest X-Ray Carotid Duplex Pulmonary: No Data to Display Past Visits: No Data to Display Assessment and Plan Assessment and Plan (1) Cardiomyopathy: Status: Chronic Qualifiers: Cardiomyopathy type: other Qualified Code(s): I42.8 - Other cardiomyopathies Comment: This 79-year-old male presents with known ischemic cardiomyopathy, with a left ventricular ejection fraction documented at 35% on cardiac catheterization. Thisdegree of systolic dysfunction places him at a significantly elevated risk for life-threatening ventricular arrhythmias and subsequent sudden cardiac (SCD). His current clinical status is stable, with physical exam notable for clear lungs and no peripheral edema, suggesting he is euvolemic and compensated.He is maintained on appropriate guideline-directed medical therapy, including Entresto and carvedilol. A lengthy shared decision-making discussion was held with the patient regarding the indication for an implantable cardioverter-defibrillator (ICD) for primary prevention of SCD. We reviewed that the device functions as a rescue therapy, nell to an "airbag," and does not prevent the underlying cardiac condition or a myocardial infarction. The procedural details, including the implantation process under conscious sedation, risks of infection, bleeding, and lead-relatedcomplications, were explained in detail. We also discussed the patient's personal values and goals of care, confirming his desire for resuscitation in the event of a cardiac arrest. The patient demonstrated understanding and has agreed to proceed with ICD implantation. Shared decision making was performed with the patient, his granddaughter and they are agreeable to proceed. Plan: Therapeutics/Medications: Schedule for implantation of a dual-chamber implantable cardioverter-defibrillator (ICD). The patient is instructed to hold his Apixaban for 48 hours prior to the procedure to mitigate judy-procedural bleeding risk while minimizing the risk of a thromboembolic event. Continue current guideline-directed medical therapy with carvedilol and Entresto. Diagnostics/Labs: Standard pre-operative laboratory assessment including CBC, BMP, and coagulation studies will be obtained prior to the procedure. Education: Patient was extensively educated on the rationale for ICD therapy forprimary prevention of SCD. We reviewed the procedural risks, benefits, and alternatives, including the option of no intervention. Post-operative care was discussed, including an anticipated overnight hospital stay and the requirement for left arm restrictions (no lifting above the shoulder) for approximately one month to ensure lead fixation. (2) Atrial fibrillation: Status: Chronic Qualifiers: Atrial fibrillation type: paroxysmal Qualified Code(s): I48.0 - Paroxysmal atrial fibrillation Comment: The patient has a history of paroxysmal atrial fibrillation, status post ablation, and is currently in a regular rhythm. His [id number] score is 5 (Congestive heart failure, Hypertension, Age =75 [2 points], Vascular disease), indicating a high annual risk of thromboembolic stroke. Chronic oral anticoagulation is strongly indicated and clinically necessary. The current regimen of apixaban provides appropriate stroke risk reduction. His physical exam is absent of signs of thromboembolism. A dual-chamber ICD would provide continuous A-fib monitoring. Plan: Plan: Therapeutics/Medications: Continue Apixaban 5 mg twice daily for stroke prophylaxis. As noted above, this will be held for 48 hours prior to the scheduled ICD implant. (3) Bradycardia: Status: Acute Comment: Patient would benefit from dual-chamber AICD both for bradycardia support and for atrial fibrillation monitoring. (4) Essential (primary) hypertension: Status: Chronic Comment: Blood pressure stable. Continue on current blood pressure medications. (5) CAD (coronary artery disease): Status: Chronic Qualifiers: Coronary Disease-Associated Artery/Lesion type: [place] artery [place] vs. transplanted heart: [place] heart Associated angina: without angina Qualified Code(s): I25.10 - Atherosclerotic heart disease of [place] coronary artery without angina pectoris Comment: The patient has significant coronary artery disease, which is the etiology of his ischemic cardiomyopathy. He is status post successful percutaneous coronary intervention with drug-eluting stent placement to the first obtuse marginal artery in September 2022. He has residual moderate, non-obstructive disease in the left anterior descending artery. His clinical presentation is stable without anginal symptoms. His ongoing medical therapy is appropriate for secondary prevention of major adverse cardiovascular events. Plan Details Follow Up: 3 Months Coding Level of Care Code Off vis,new,level 5 Diagnoses Other cardiomyopathy I42.8 Cardiomyopathy type: other Paroxysmal atrial fibrillation I48.0 Atrial fibrillation type: paroxysmal Bradycardia R00.1 Essential (primary) hypertension I10 Coronary artery disease involving [place] coronary artery of [place] heart withoutangina pectoris I25.10 Coronary Disease-Associated Artery/Lesion type: [place] artery [place] vs. transplanted heart: [place] heart Associated angina: without angina Coding Level of Care Code Off vis,new,level 5 Diagnoses Other cardiomyopathy I42.8 Cardiomyopathy type: other Paroxysmal atrial fibrillation I48.0 Atrial fibrillation type: paroxysmal Bradycardia R00.1 Essential (primary) hypertension I10 Coronary artery disease involving [place] coronary artery of [place] heart withoutangina pectoris I25.10 Coronary Disease-Associated Artery/Lesion type: [place] artery [place] vs. transplanted heart: [place] heart Associated angina: without angina Clinical Quality Measures Falls Risk Screening/Assistive Devices Have you fallen in the past year?: No Cardiac Ejection fraction %: 35 03/07/25 1044 <Electronically signed by Lavelle davila MD> Date _ Lavelle Del Cid MD Cosigner Signature: Date (if applicable) CC: Dr. Michael Ko MD ~ [facility] [email or web address] [facility] Work Phone: 1([phone]) 646-510907-08-2025 NoteHNO ID: [id number] Author: DANNY ALFONSO MA Service: ? 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 Type: Progress Notes Filed: 01/22/2025 13:17 Note Text: POPULATION HEALTH NAVIGATION OUTREACH Action/FYI Patient is on [employer] list for below and needs appointment to address: Shingrix Vaccine(1 of 2) DTaP,Tdap,Td Vaccine(2 - Td or Tdap) Advance Directive Discussion Medicare Advantage Annual Wellness Visit Covid-19 Vaccine( season) Depression Screening Anxiety Screening LDL Cholesterol Hemoglobin A1C (%) Date Value 01/23/2024 5.0 04/09/2021 5.5 Last 1 Encounter BP Readings: Date: BP: 11/09/2024 122/76 Patient due for: Medicare Annual Wellness Visit MyChart Active: Yes Left message for patient to call back. Sent [employer] message. HCC: No Reason for Outreach Care Gap/HCC or Scheduling Wellness Visits Care Gaps due: Medicare Annual Wellness Visit Patient Contacted: Unable or unnecessary to reach patient: Left message MyChart message sent Navigation Signature: Danny Alfonso MA January 22, 2025 1:15 [facility]07-08-2025 History of Present illness Narrative* Danny Alfonso MA - 01/22/2025 1:15 PM EDT POPULATION HEALTH NAVIGATION OUTREACH Action/FYI Patient is on [employer] list for below and needs appointment to address: Shingrix Vaccine(1 of 2) DTaP,Tdap,Td Vaccine(2 - Td or Tdap) Advance Directive Discussion Medicare Advantage Annual Wellness Visit Covid-19 Vaccine() Depression Screening Anxiety Screening LDL Cholesterol Hemoglobin A1C (%) Date Value 01/23/2024 5.0 04/09/2021 5.5 Last 1 Encounter BP Readings: Date: BP: 11/09/2024 122/76 Patient due for: Medicare Annual Wellness Visit MyChart Active: Yes Left message for patient to call back. Sent [employer] message. HCC: No Reason for Outreach Care Gap/HCC or Scheduling Wellness Visits Care Gaps due: Medicare Annual Wellness Visit Patient Contacted: Unable or unnecessary to reach patient: Left message [employer] message sent Navigation Signature: Danny Alfonso MA January 22, 2025 1:15 PM documented in [facility] encounter[facility] Evaluation note* Diagnosis Onset Date Resolution Status Admit Date Anemia acute January 22, 2025 8:28am Atrial fibrillation chronic January 22, 2025 8:28am CAD (coronary artery disease) chroni c January 22, 2025 8:28am Cardiomyopathy chronic January 22, 2025 8:28am Carotid stenosis, bilateral chronic January 22, 2025 8:28am Dyslipidemia chronic January 22 8:28am Essential (primary) hypertension chr onic January 22, 2025 8:28am Mitral insufficiency chronic January 22, 2025 8:28am Bradycardia acute March 07, 2025 9:40am Atrial fibrillation chronic Augus t 2024 9:40am CAD (coronary artery disease) chroni c March 07, 2025 9:40am Cardiomyopathy chronic February 9:40am Essential (primary) hypertension chr onic March 07, 2025 9:40am [facility] Work Phone: [phone] NotePatient Outreach (NETNAV) SHELTON KAY ([id number]) 1945 M Date Time Provider Department 01/22/25 DANNY ALFONSO NETPRIYA During your visit today, we recorded the following information about you: Danny Alfonso MA 01/22/2025 1:17 PM Signed POPULATION HEALTH NAVIGATION OUTREACH Action/ Patient is on [employer] [facility] list for below and needs appointment to address: Shingrix Vaccine(1 of 2) DTaP,Tdap,Td Vaccine(2 - Td or Tdap) Advance Directive Discussion Medicare Advantage Annual Wellness Visit Covid-19 Vaccine() Depression Screening Anxiety Screening LDL Cholesterol Hemoglobin A1C (%) Date Value 01/23/2024 5.0 04/09/2021 5.5 Last 1 Encounter BP Readings: Date: BP: 11/09/2024 122/76 Patient due for: Medicare Annual Wellness Visit Healthrageoushart Active: Yes Left message for patient to call back. Sent [employer] message. HCC: No Reason for Outreach Care Gap/HCC or Scheduling Wellness Visits Care Gaps due: Medicare Annual Wellness Visit Patient Contacted: Unable or unnecessary to reach patient: Left message [employer] message sent Navigation Signature: Danny Alfonso MA January 22, 2025 1:15 PM Allergies As of Date: 01/22/2025 Noted Allergy Reaction PLAQUENIL (HYDROXYCHLOROQUINE) 01/20/2024 9 - Itching SPIRONOLACTONE 02/03/2023 14 - Other: See Comments Comments: Dizziness and severe headaches INDOCIN (INDOMETHACIN SODIUM) 05/05/2005 6 - Diarrhea MOBIC (MELOXICAM) 08/16/2014 6 - Diarrhea Date Reviewed: 11/09/2024 Reviewed by: Юлия Linn MA - Fully Assessed Reason for Visit: Population Health Navigation Outreach [3910] [facility] Prescriptions as of 01/22/2025 - allopurinol (ZYLOPRIM) 100 mg tablet Take 1 tablet by mouth two times a day. - pantoprazole DR (PROTONIX) 20 mg tablet Take 1 tablet by mouth daily before breakfast. Take on empty stomach, 1/2 hr before meal. - lisinopril (ZESTRIL) 5 mg tablet Take 5 mg by mouth two times a day. [facility] - acetaminophen (TYLENOL) 325 mg [...] month 07/16/2022TP Problem List As Of Date 01/22/2025 Noted Resolved Hyperlipidemia [E78.5] 05/05/2005 Hypertension [I10] [...] by other means [Z96.*10/01/2010 Other physical therapy [PDG9579] 10/01/2010 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] 06/28/2011 Gastroesophageal reflux disease [K21.9] 04/27/2017 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 PAD (peripheral artery disease) (HCC) [I73.9] 05/01/2019 Atrial fibrillation (HCC) [I48.91] 08/30/2022 Ischemic cardiomyopathy [I25.5] Status post catheter ablation of atrial fibrill*12/21/2022 Paroxysmal atrial fibrillation (HCC) [I48.0] 03/28/2023 Status post ablation of atrial flutter [Z98.890*03/28/2023 Dyspnea [R06.00] 03/29/2023 Coronary artery disease involving [place] gates*05/19/2023 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] 02/03/2023 Diagnosed: 05/19/2023 History of arthritis [Z87.39] 05/19/2023 Former smoker [Z87.891] 05/19/2023 Anemia [D64.9] 05/19/2023 Dysphagia [R13.10] 05/20/2023 History of colonic polyps [Z86.0100] 05/20/2023 Cardiomyopathy, unspecified type (HCC) [I42.9] 06/22/2023 Preop examination [Z01.818] (more content not included)...[facility]06-19-2025 Radiology Diagnostic study note [facility] Imaging Services [address] [place] [address] Chest PA and Lateral MR#: [id number] Acct: [id number] Name: SHELTON KAY Rep #: [id number] : 1945 M 79 From: Mahendra Trujillo MD PCP: Dr. Michael Ko MD Status: PRE S DC Study:Chest PA and Lateral Date of Exam: 01/02/25 Exam# [id number] Ordering Dr: Sid Vernon MD PROCEDURE: CHEST PA AND LATERAL 01/02/2025 REASON FOR EXAM: ASHD, PRE-PROCEDURE DIAGNOSTIC TECHNIQUE: CHEST PA AND LATERAL COMPARISON: None FINDINGS: Hardware: None Heart: The heart size is normal. Mediastinum: The mediastinal contour is unremarkable. Lungs: The lungs are clear. Bones: Prior right reverse shoulder replacement. RAD/Chest PA and Lateral IMPRESSION: NO ACUTE FINDINGS. Reading Location: [place] [address] CC: Dr. Osbaldo Vernon MD; Dr. Michael Ko MD ~ Cloth Shrinking Tester: Signed [facility]05-27-2025 Progress [facility] [address] [place], [place] [address] OFFICE VISIT Date of Service: 12/11/24 MR#: [id number] Acct: [id number] Name: SHELTON KAY Rep #: [id number] : 1945 Provider: Dr. Zack Vernon MD Age/Sex: 79/M Location: [place] Status: Signed HPI HPI History of Present [...] Source NIBP Intake Visit Reasons: Atrial fibrillation Student Development Advisor Required: No Accompanied by: [id number] Allergies indomethacin (From Indocin) Allergy (Verified 12/11/24 14:01) Bleeding meloxicam (From Mobic) Adverse Reaction (Intermediate, Verified 12/11/24 14:01) Diarrhea spironolactone Adverse Reaction (Intermediate, Verified 12/11/24 14:01) Dizziness and severe headaches Medications ?Medication ?Instructions ?Recorded ?Confirmed ?Type simvastatin 20 mg tablet 20 mg PO QPM cholesterol 11/29/24 History allopurinol 100 mg tablet 100 mg [...] you fallen in the past year?: No PFSH Medical History Allergic rhinitis Anemia Arthritis Atherosclerotic heart disease of [place] coronary artery without angina pectoris Atrial fibrillation [...] joint pain (back, s/p back surgery in Jun) and balance problems; Negative for muscle aches/ [...] Moderately calcified aortic root. ECHOCARDIOGRAM 03/29/23 @ [facility] CONCLUSIONS - Exam indication: Sustained atrial fibrillation [...] rhythm on today's exam. E[facility]GRAM [facility]/31/22 @ [facility] CONCLUSIONS: - Exam indication: Atrial fibrillation - [...] PTCA/CALE LCX into Prox OM1 using Resolute Lc 2.5x18 & 2.25x8mm RECOMMENDATIONS Plavix for at least 12 months Continue Eliqucristina CAROTID DUPLEX 02/15/23: IMPRESSION RIGHT SIDE Common [...] Status: Chronic Qualifiers: Coronary Disease-Associated Artery/Lesion type: [place] artery [place] vs. transplanted heart: [place] Associated angina: without angina Qualified Code(s): I25.10 - Atherosclerotic heart disease of [place] coronary artery without angina pectoris Plan: Status [...] fibrillation type: paroxysmal Coronary artery disease involving [place] coronary artery of [place] heart withoutangina pectoris I25.10 Coronary Disease-Associated Artery/Lesion type: [place] artery [place] vs. transplanted heart: [place] heart Associated angina: without angina Other cardiomyopathy I42.8 Cardiomyopathy type: other Mitral insufficiency I34.0 Essential (primary) hypertension I10 Carotid stenosis, bilateral I65.23 Dyslipidemia E78.5 Erectile dysfunction N52.9 Coding Level of Care Code Off vis,est,level 4 Diagnoses Paroxysmal atrial fibrillation I48.0 Atrial fibrillation type: paroxysmal Coronary artery disease involving [place] coronary artery of [place] heart withoutangina pectoris I25.10 Coronary Disease-Associated Artery/Lesion type: [place] artery [place] vs. transplanted heart: [place] heart Associated angina: without angina Other cardiomyopathy I42.8 Cardiomyopathy type: other Mitral insufficiency I34.0 Essential (primary) hypertension I10 Carotid stenosis, bilateral I65.23 Dyslipidemia E78.5 Erectile dysfunction N52.9 Clinical Quality Measures Falls Risk Screening/Assistive Devices Have you fallen in the past year?: No Cardiac Ejection fraction %: 35 12/11/24 1431 MD> Date _ Osbaldo Vernon MD Cosigner Signature: Date (if applicable) CC: Dr. Michael Ko MD ~ [facility]05-27-2025 Progress note Author Osbaldo Vernon [facility] Note Date/Time December 11, 2024 2:31p m [facility] [address] [place], [place] [address] OFFICE VISIT Date of Service: 12/11/24 MR#: [id number] Acct: [id number] Name: SHELTON KAY Rep #: [id number] : 1945 Provider: Dr. Zack Vernon MD Age/Sex: 79/M Location: [place] Status: Signed HPI HPI History of Present [...] Source NIBP Intake Visit Reasons: Atrial fibrillation Student Development Advisor Required: No Accompanied by: [id number] Allergies indomethacin (From Indocin) Allergy (Verified 12/11/24 14:01) Bleeding meloxicam (From Mobic) Adverse Reaction (Intermediate, Verified 12/11/24 14:01) Diarrhea spironolactone Adverse Reaction (Intermediate, Verified 12/11/24 14:01) Dizziness and severe headaches Medications ?Medication ?Instructions ?Recorded ?Confirmed ?Type simvastatin 20 mg tablet 20 mg PO QPM cholesterol 11/29/24 History allopurinol 100 mg tablet 100 mg [...] you fallen in the past year?: No PFSH Medical History Allergic rhinitis Anemia Arthritis Atherosclerotic heart disease of [place] coronary artery without angina pectoris Atrial fibrillation [...] joint pain (back, s/p back surgery in Jun) and balance problems; Negative for muscle aches/ [...] Moderately calcified aortic root. ECHOCARDIOGRAM 03/29/23 @ [facility] CONCLUSIONS - Exam indication: Sustained atrial fibrillation [...] rhythm on today's exam. ECHOCARDIOGRAM 08/31/22 @ [facility] CONCLUSIONS: - Exam indication: Atrial fibrillation - [...] PTCA/CALE LCX into Prox OM1 using Resolute Cl 2.5x18 & 2.25x8mm RECOMMENDATIONS Plavix for at least 12 months Continue Eliquis CAROTID DUPLEX 02/15/23: IMPRESSION RIGHT SIDE Common [...] Status: Chronic Qualifiers: Coronary Disease-Associated Artery/Lesion type: [place] artery [place] vs. transplanted heart: [place] heart Associated angina: without angina Qualified Code(s): I25.10 - Atherosclerotic heart disease of [place] coronary artery without angina pectoris Plan: Status [...] fibrillation type: paroxysmal Coronary artery disease involving [place] coronary artery of [place] heart withoutangina pectoris I25.10 Coronary Disease-Associated Artery/Lesion type: [place] artery [place] vs. transplanted heart: [place] heart Associated angina: without angina Other cardiomyopathy I42.8 Cardiomyopathy type: other Mitral insufficiency I34.0 Essential (primary) hypertension I10 Carotid stenosis, bilateral I65.23 Dyslipidemia E78.5 Erectile dysfunction N52.9 Coding Level of Care Code Off vis,est,level 4 Diagnoses Paroxysmal atrial fibrillation I48.0 Atrial fibrillation type: paroxysmal Coronary artery disease involving [place] coronary artery of [place] heart withoutangina pectoris I25.10 Coronary Disease-Associated Artery/Lesion type: [place] artery [place] vs. transplanted heart: [place] heart Associated angina: without angina Other cardiomyopathy [...] applicable) CC: Dr. Michael Ko MD ~ [facility] [employer] Work Phone: 1(787) 109-312405-08-2025 Radiology Diagnostic study note [facility] Imaging Services [address] [place] [id number] L/S Spine Min 4 Views MR#: [id number] Acct: [id number] Name: SHELTON KAY Rep #: [id number] : 1945 M 79 From: Jimmy Iverson MD PCP: Dr. Federico Vigil MD Status: RE G CLI Study:L/S Spine Min 4 Views Date of Exam: 11/21/24 Exam# [id number] Ordering Dr: Juan Oliver MD PROCEDURE: L/S [...] consider MRI if no contraindication. Reading Location: [id number] CC: Dr. Federico Vigil MD; Dr. Juan Oliver MD ~ Cloth Shrinking Tester: Signed [facility]04-30-2025 Evaluation note* Diagnosis Onset Date Resolution Status Admit Date Carotid stenosis, bilateral chronic November 14, 2024 12:34pm PAD (peripheral artery disease) solar manager ruth November 14, 2024 12:34pm Subclavian arterial stenosis chronic November 14, 2024 12:34pm Atrial fibrillation chronic November 162024 1:57pm CAD (coronary artery disease) chroni c December 11, 2024 1:57pm Cardiomyopathy chronic December 11, 2024 1:57pm Carotid stenosis, bilateral chronic December 11, 2024 1:57pm Dyslipidemia chronic December 11 1:57pm Erectile dysfunction chronic December 11, 2024 1:57pm Essential (primary) hypertension chr onic December 11, 2024 1:57pm Mitral insufficiency chronic December 11, 2024 1:57pm Anemia acute January 22, 2025 8:28am Atrial fibrillation chronic January 22, 2025 8:28am CAD (coronary artery disease) chroni c January 22, 2025 8:28am Cardiomyopathy chronic January 22, 2025 8:28am Carotid stenosis, bilateral chronic January 22, 2025 8:28am Dyslipidemia chronic January 22 8:28am Essential (primary) hypertension chr onic January 22, 2025 8:28am Mitral insufficiency chronic January 22, 2025 8:28am [facility] Work Phone: 1(299) 347-471404-30-2025 Evaluation note* Diagnosis Onset Date Resolution Status Admit Date Carotid stenosis, bilateral chronic November 14, 2024 12:34pm PAD (peripheral artery disease) solar manager ruth November 14, 2024 12:34pm Subclavian arterial stenosis chronic November 14, 2024 12:34pm Atrial fibrillation chronic November 162024 1:57pm CAD (coronary artery disease) chroni c December 11, 2024 1:57pm Cardiomyopathy chronic December 11, 2024 1:57pm Carotid stenosis, bilateral chronic December 11, 2024 1:57pm Dyslipidemia chronic December 11 1:57pm Erectile dysfunction chronic December 11, 2024 1:57pm Essential (primary) hypertension chr onic December 11, 2024 1:57pm Mitral insufficiency chronic December 11, 2024 1:57pm Anemia acute January 22, 2025 8:28am Atrial fibrillation chronic January 22, 2025 8:28am CAD (coronary artery disease) chroni c January 22, 2025 8:28am Cardiomyopathy chronic January 22, 2025 8:28am Carotid stenosis, bilateral chronic January 22, 2025 8:28am Dyslipidemia chronic January 22 8:28am Essential (primary) hypertension chr onic January 22, 2025 8:28am Mitral insufficiency chronic January 22, 2025 8:28am Bradycardia acute March 07, 2025 9:40am Atrial fibrillation chronic Aug t 2024 9:40am CAD (coronary artery disease) chroni c March 07, 2025 9:40am Cardiomyopathy chronic February 9:40am Essential (primary) hypertension chr onic March 07, 2025 9:40am [facility] Work Phone: 1([phone]) 580-986704-25-2025 NoteHNO ID: [id number] Author: DANNY JUÁREZ APRN.THRESHING MACHINE OPERATOR Service: ? Author Type: Nurse Practitioner Type: Progress Notes Filed: 11/09/2024 11:01 Note Text: Chief Complaint Patient presents with: Gout HPI Shelton Kay is a 79 year old male who [...] cause unspecified Arthritis Atherosclerotic heart disease of [place] coronary artery without angina pectoris Atrial fibrillation [...] ACETBLR/PROX FEM PROSTC AGRFT/ALGRFT 04/2012 Dr. Wood> [facility]. ARTHRP KNE CONDYLEANDPLATU MEDIALANDLAT COMPARTMENTS Right COLONOSCOPY FLX DX W/COLLJ SPEC WHEN PFRMD 05/[address] Mejia COLONOSCOPY SCREENING 05/20/2023 COLONOSCOPY W/BIOPSY SINGLE/MULTIPLE 08/24/2006 EGD 12/01/2020 ESOPHAGOGASTRODUODENOSCOPY TRANSORAL DIAGNOSTIC 05/2023 EYE SURGERY HX JOINT REPLACEMENT HX LAMINECTOMY,LUMBAR 06/20/2024 Dr. Pool with [facility] LEFT HEART CATH,PERCUTANEOUS 10/06/2022 OPEN REPAIR OF ROTATOR CUFF ACUTE 10/03/2008 Rotator cuff repair-right PAST SURGICAL HISTORY OF right knee scope PAST SURGICAL HISTORY OF cataract both eyes PAST SURGICAL HISTORY OF N/A 12/20/2022 EPS with Ablation, [facility] PAST SURGICAL HISTORY OF Right 12/26/2023 [...] needed. No current facility-admi (more content not included)...[facility]03-28-2025 History of Present illness Narrative* Phani Rajan APRN.THRESHING MACHINE OPERATOR - 10/12/2024 11:20 AM EDT Telemedicine Visit - Distance Health Virtual Visit Note Patient seen on [employer] Video Visit platform. Location [place] I have communicated my name and active licensure. The patient's identity and physical location wereverified at the time of this visit. Either the patient or their legal field sales representative has been informed of the risks and [...] for which he was evaluated in the [facility]. He was informed that he might have [...] cause unspecified Arthritis Atherosclerotic heart disease of [place] coronary artery without angina pectoris Atrial fibrillation [...] ACETBLR/PROX FEM PROSTC AGRFT/ALGRFT 04/2012 Dr. Wood> [facility] ARTHRP KNE CONDYLE&PLATU MEDIAL&LAT COMPARTMENTS Right COLONOSCOPY FLX DX W/COLLJ SPEC WHEN PFRMD 05/[address] Mejia COLONOSCOPY SCREENING 05/20/2023 COLONOSCOPY W/BIOPSY SINGLE/MULTIPLE 08/24/2006 EGD 12/01/2020 ESOPHAGOGASTRODUODENOSCOPY TRANSORAL DIAGNOSTIC 05/2023 EYE SURGERY HX JOINT REPLACEMENT HX LAMINECTOMY,LUMBAR 06/20/2024 Dr. Pool with [facility] LEFT HEART CATH,PERCUTANEOUS 10/06/2022 OPEN REPAIR OF ROTATOR CUFF ACUTE 10/03/2008 Rotator cuff repair-right PAST SURGICAL HISTORY OF right knee scope PAST SURGICAL HISTORY OF cataract both eyes PAST SURGICAL HISTORY OF N/A 12/20/2022 EPS with Ablation, [facility] PAST SURGICAL HISTORY OF Right 12/26/2023 [...] 1. APPOINTMENT CANCELLED Patient is currently in [place], outside of my licensed practice area. Reschedule appointment for when patient is back in [place], either virtual or in-person. Phani Rajan APRN.LIZET documented in this encounter[facility]25 NoteHNO ID: [id number] Author: PHANI RAJAN APRN.CNP Service: ? Author Type: Nurse Practitioner Type: Progress Notes Filed: 10/12/2024 11:33 Note Text: Telemedicine Visit - Distance Health Virtual Visit Note Patient seen on [employer] Video Visit platform. [place] I have communicated my name and active licensure. The patient's identity and physical location were verified at the time of this visit. Either the patient or their legal field sales representative has been informed of the risks and [...] he was evaluated in the ER in [place]. He was informed that he might have [...] cause unspecified Arthritis Atherosclerotic heart disease of [place] coronary artery without angina pectoris Atrial fibrillation [...] ACETBLR/PROX FEM PROSTC AGRFT/ALGRFT 04/2012 Dr. Wood> [facility] ARTHRP KNE CONDYLEANDPLATU MEDIALANDLAT COMPARTMENTS Right COLONOSCOPY FLX DX W/COLLJ SPEC WHEN PFRMD 05/[address] Mejia COLONOSCOPY SCREENING 05/20/2023 COLONOSCOPY W/BIOPSY SINGLE/MULTIPLE 08/24/2006 EGD 12/01/2020 ESOPHAGOGASTRODUODENOSCOPY TRANSORAL DIAGNOSTIC 05/2023 EYE SURGERY HX JOINT REPLACEMENT HX LAMINECTOMY,LUMBAR 06/20/2024 Dr. Pool with [facility] LEFT HEART CATH,PERCUTANEOUS 10/06/2022 OPEN REPAIR OF ROTATOR CUFF ACUTE 10/03/2008 Rotator cuff repair-right PAST SURGICAL HISTORY OF right knee scope PAST SURGICAL HISTORY OF cataract both eyes PAST SURGICAL HISTORY OF N/A 12/20/2022 EPS with Ablation, [facility] PAST SURGICAL HISTORY OF Right 12/26/2023 [...] mg by mouth two times a day. [facility] acetaminophen (TYLENOL) 325 mg tablet [...] one 81mg chewable t (more content not included)...[facility]02-28-2025 Evaluation note* Diagnosis Onset Date Resolution Status Admit Date Lumbar compression fracture acute September 14, 2024 10:44am Status post laminectomy acute F ebruary 2024 10:44am Carotid stenosis, bilateral chronic November 14, 2024 12:34pm PAD (peripheral artery disease) solar manager ruth November 14, 2024 12:34pm Subclavian arterial [...] Mitral insufficiency chronic December 11, 2024 1:57pm [facility] Work Phone: 1(219) 617-787602-17-2025 Telephone encounter Note* Telephone Encounter - Miryam Ferrara LPN - 09/03/2024 1:11 PM EST Patient returned call and went over results, notes from Ruth Miranda CONTROL OPERATOR with understanding. [facility]02-17-2025 Miscellaneous Notes* Telephone Encounter - Miryam Ferrara LPN - 09/03/2024 1:11 PM EST Patient returned call and went over results, notes from Ruth Miranda CONTROL OPERATOR with understanding. * Telephone Encounter - Elif Godoy LPN - 09/03/2024 10:47 AM EST Left a message for pt to call the office and ask to speak to a nurse. Elif Godoy LPN * Telephone Encounter - Ruth Miranda APRN.CNP - 09/03/2024 10:22 AM EST Can you please call the patient and let him know that his chest x-ray was normal. I would recommendhe continue supportive care at home. COVID/RSV/flu results should be back by tomorrow. Please let me know if he has any additional questions. Ruth Miranda APRN.CNP documented in this encounterTrihealth Mcc[facility]02-17-2025 Telephone encounter Note * Telephone Encounter - Elif Godoy LPN - 09/03/2024 10:47 AM EST Left a message for pt to call the office and ask to speak to a nurse. Elif Godoy LPN [facility]02-17-2025 History of Present illness Narrative* Kat Stone Tech - 09/03/2024 10:40 AM EST Radiology Service Progress Note PATIENT NAME: Shelton Kay DATE OF SERVICE: September 03, 2024 TIME: [...] PATIENT PRESENTS WITH AN IMPLANTABLE OR ATTACHED CLOTHES DESIGNER: No RADIOLOGY DEPARTMENT: General X-ray: Exam(s) Completed: Chest X-Ray PERIPHERAL IV DATA: Not applicable SIGNED BY: Yomi Bone September 03, 2024 10:11 AM documented in this encounterTrihealth Mccull[facility]02-17-2025 NoteHNO ID: [id number] Author: KAT STONE Tech Service: ? Author Type: Technologist Type: Progress Notes Filed: 09/03/2024 10:11 Note Text: Radiology Service Progress Note PATIENT NAME: Shelton Kay DATE OF SERVICE: September 03, 2024 TIME: [...] PATIENT PRESENTS WITH AN IMPLANTABLE OR ATTACHED CLOTHES DESIGNER: No RADIOLOGY DEPARTMENT: General X-ray: Exam(s) Completed: Chest X-Ray PERIPHERAL IV DATA: Not applicable SIGNED BY: Yomi Bone September 03, 2024 10:11 [facility]02-17-2025 Telephone encounter Note* Telephone Encounter - Ruth Miranda APRN.CNP - 09/03/2024 10:22 AM EST Can you please call the patient and let him know that his chest x-ray was normal. I would recommendhe continue supportive care at home. COVID/RSV/flu results should be back by tomorrow. Please let me know if he has any additional questions. Ruth Miranda APRN.LIZET [facility]02-17-2025 [id number] (AGENT OF COVID-19) RNA: Not detected INFLUENZA A RNA: Not detected INFLUENZA B RNA: Not detected RESPIRATORY SYNCYTIAL VIRUS (RSV) RNA: Not detectedZanesville City HospitalComment on above:Performed By: #### [id number] ####[facility] LABCLIA [id number] [address] [place] [id number] History of Present illness Narrative* Ruth Miranda APRN.CNP - 09/03/2024 10:00 AM EST This is a 79 year old male who presents today with: Patient presents with: Acute Visit: flu/cough/fever HISTORY OF PRESENT ILLNESS: Shelton Kay is a 79 year old male. Patient presents with: Acute Visit: flu/cough/fever Here in the office for flu symptoms. Symptoms started last Tuesday. Ongoing sore throat, low-grade fever, and cough. Cough is dry. No wheezing or SOB. Taking Mucinex without relief. PAST MEDICAL HISTORY: PAST MEDICAL HISTORY Diagnosis Date Allergic rhinitis, cause unspecified Arthritis Atherosclerotic heart disease of [place] coronary artery without angina pectoris Atrial fibrillation [...] ACETBLR/PROX FEM PROSTC AGRFT/ALGRFT 04/2012 Dr. Wood> [facility]. ARTHRP KNE CONDYLE&PLATU MEDIAL&LAT COMPARTMENTS Right COLONOSCOPY FLX DX W/COLLJ SPEC WHEN PFRMD 05/[address] Mejia COLONOSCOPY SCREENING 05/20/2023 COLONOSCOPY W/BIOPSY SINGLE/MULTIPLE 08/24/2006 EGD 12/01/2020 ESOPHAGOGASTRODUODENOSCOPY TRANSORAL DIAGNOSTIC 05/2023 EYE SURGERY HX JOINT REPLACEMENT HX LAMINECTOMY,LUMBAR 06/20/2024 Dr. Pool with [facility] LEFT HEART CATH,PERCUTANEOUS 10/06/2022 OPEN REPAIR OF ROTATOR CUFF ACUTE 10/03/2008 Rotator cuff repair-right PAST SURGICAL HISTORY OF right knee scope PAST SURGICAL HISTORY OF cataract both eyes PAST SURGICAL HISTORY OF N/A 12/20/2022 EPS with Ablation, [facility] PAST SURGICAL HISTORY OF Right 12/26/2023 [...] mg by mouth two times a day. [facility] acetaminophen (TYLENOL) 325 mg tablet [...] were discussed and patient voices understanding. Ruth Miranda APRN.CNP This note was partially generated using [employer]vant[employer] voice recognition system. Note was reviewed for accuracy. There may be minor misspellings or grammar miscues with [employer] voice recognition. PDMP website checked and validated. All prescriptions have been APPROPRIATELY filled. No suspiciousactivity was identified. 09/03/2024 by Ruth Miranda APRN.THRESHING MACHINE OPERATOR documented in this encounterTrihealth Mccull[facility]02-17-2025 NoteHNO ID: [id number] Author: RUTH MIRANDA APRN.CNP Service: ? Author Type: Nurse Practitioner Type: Progress Notes Filed: 09/03/2024 10:15 Note Text: This is a 79 year old male who presents today with: Patient presents with: Acute Visit: flu/cough/fever HISTORY OF PRESENT ILLNESS: Shelton Kay is a 79 year old male. Patient presents with: Acute Visit: flu/cough/fever Here in the office for flu symptoms. Symptoms started last Tuesday. Ongoing sore throat, low-grade fever, and cough. Cough is dry. No wheezing or SOB. Taking Mucinex without relief. PAST MEDICAL HISTORY: PAST MEDICAL HISTORY Diagnosis Date Allergic rhinitis, cause unspecified Arthritis Atherosclerotic heart disease of [place] coronary artery without angina pectoris Atrial fibrillation [...] ACETBLR/PROX FEM PROSTC AGRFT/ALGRFT 04/2012 Dr. Wood> [facility]. ARTHRP KNE CONDYLEANDPLATU MEDIALANDLAT COMPARTMENTS Right COLONOSCOPY FLX DX W/COLLJ SPEC WHEN PFRMD 05/[address] Mejia COLONOSCOPY SCREENING 05/20/2023 COLONOSCOPY W/BIOPSY SINGLE/MULTIPLE 08/24/2006 EGD 12/01/2020 ESOPHAGOGASTRODUODENOSCOPY TRANSORAL DIAGNOSTIC 05/2023 EYE SURGERY HX JOINT REPLACEMENT HX LAMINECTOMY,LUMBAR 06/20/2024 Dr. Pool with [facility] LEFT HEART CATH,PERCUTANEOUS 10/06/2022 OPEN REPAIR OF ROTATOR CUFF ACUTE 10/03/2008 Rotator cuff repair-right PAST SURGICAL HISTORY OF right knee scope PAST SURGICAL HISTORY OF cataract both eyes PAST SURGICAL HISTORY OF N/A 12/20/2022 EPS with Ablation, [facility] PAST SURGICAL HISTORY OF Right 12/26/2023 [...] packs/day: 0.00 Average packs/day: (more content not included)...[facility] 09-03-2024 Instructions* Patient Instructions* Ruth Miranda APRN.CNP - 09/03/2024 9:58 AM EST Strep Negative Get chest xray completed today Covid, flu, RSV pending Continue supportive care at home, stay well hydrated May use Codeine cough syrup as needed, may cause sleepiness Follow up pending test results or sooner as needed documented in this encounterTrihealth Mcc[facility]02-12-2025 Instructions* Patient Instructions* Ruth Miranda APRN.CNP - 08/29/2024 10:30 AM EST Get labs completed today Start Colchicine, take as prescribed Continue supportive care at home May apply warm or cool compress to knee, elevated knee May take Claritin or Zyrtec as needed Follow up pending test results documented in this encounterTrihealth Mccull[facility]02-12-2025 History of Present illness Narrative* Ruth Miranda APRN.CNP - 08/29/2024 10:00 AM EST This is a 79 year old male who presents today with: Patient presents with: Follow Up: UC follow up for gout. Possible cold HISTORY OF PRESENT ILLNESS: Shelton Kay is a 79 year old male. Patient presents with: Follow Up: UC follow up for gout. Possible cold Here in the office for gout flare. Was seen in [facility] 08/24/23 treated with prednisone 40 mg daily [...] cause unspecified Arthritis Atherosclerotic heart disease of [place] coronary artery without angina pectoris Atrial fibrillation [...] ACETBLR/PROX FEM PROSTC AGRFT/ALGRFT 04/2012 Dr. Wood> [facility] ARTHRP KNE CONDYLE&PLATU MEDIAL&LAT COMPARTMENTS Right COLONOSCOPY FLX DX W/COLLJ SPEC WHEN PFRMD 05/[address] Mejia COLONOSCOPY SCREENING 05/20/2023 COLONOSCOPY W/BIOPSY SINGLE/MULTIPLE 08/24/2006 EGD 12/01/2020 ESOPHAGOGASTRODUODENOSCOPY TRANSORAL DIAGNOSTIC 05/2023 EYE SURGERY HX JOINT REPLACEMENT HX LAMINECTOMY,LUMBAR 06/20/2024 Dr. Pool with [facility] LEFT HEART CATH,PERCUTANEOUS 10/06/2022 OPEN REPAIR OF ROTATOR CUFF ACUTE 10/03/2008 Rotator cuff repair-right PAST SURGICAL HISTORY OF right knee scope PAST SURGICAL HISTORY OF cataract both eyes PAST SURGICAL HISTORY OF N/A 12/20/2022 EPS with Ablation, [facility] PAST SURGICAL HISTORY OF Right 12/26/2023 [...] mg by mouth two times a day. [facility] acetaminophen (TYLENOL) 325 mg tablet [...] were discussed and patient voices understanding. Ruth Miranda APRN.CNP This note was partially generated using Qvant[employer] voice recognition system. Note was reviewed for accuracy. There may be minor misspellings or grammar miscues with Be[employer] voice recognition. documented in this encounterTrihealth Mccullough-[facility]02-12-2025 NoteHNO ID: [id number] Author: RUTH MIRANDA APRN.CNP Service: ? Author Type: Nurse Practitioner Type: Progress Notes Filed: 08/29/2024 12:58 Note Text: This is a 79 year old male who presents today with: Patient presents with: Follow Up: UC follow up for gout. Possible cold HISTORY OF PRESENT ILLNESS: Shelton Kay is a 79 year old male. Patient presents with: Follow Up: UC follow up for gout. Possible cold Here in the office for gout flare. Was seen in [facility] 08/24/23 treated with prednisone 40 mg daily [...] cause unspecified Arthritis Atherosclerotic heart disease of [place] coronary artery without angina pectoris Atrial fibrillation [...] ACETBLR/PROX FEM PROSTC AGRFT/ALGRFT 04/2012 Dr. Wood> [facility]. ARTHRP KNE CONDYLEANDPLATU MEDIALANDLAT COMPARTMENTS Right COLONOSCOPY FLX DX W/COLLJ SPEC WHEN PFRMD 05/[address] Mejia COLONOSCOPY SCREENING 05/20/2023 COLONOSCOPY W/BIOPSY SINGLE/MULTIPLE 08/24/2006 EGD 12/01/2020 ESOPHAGOGASTRODUODENOSCOPY TRANSORAL DIAGNOSTIC 05/2023 EYE SURGERY HX JOINT REPLACEMENT HX LAMINECTOMY,LUMBAR 06/20/2024 Dr. Pool with [facility] LEFT HEART CATH,PERCUTANEOUS 10/06/2022 OPEN REPAIR OF ROTATOR CUFF ACUTE 10/03/2008 Rotator cuff repair-right PAST SURGICAL HISTORY OF right knee scope PAST SURGICAL HISTORY OF cataract both eyes PAST SURGICAL HISTORY OF N/A 12/20/2022 EPS with Ablation, [facility] PAST SURGICAL HISTORY OF Right 12/26/2023 [...] once daily. Pain Management Dr. Burger pantoprazole (PROTONIX) 20 mg tablet Take 1 tablet by mouth daily before breakfast. Take on empty stomach, 1/2 hr before meal. lisinopril (ZESTRIL) 5 mg tablet Take 5 mg by mouth two times a day. [facility] acetaminophen (TYLENOL) 325 mg tablet [...] Lipids Mother Stroke Moth (more content not included)...[facility]02-07-2025 History of Present illness Narrative* Arun Lopez RT(R) - 08/24/2024 4:20 PM EST Radiology Service Progress Note PATIENT NAME: Shelton Kay DATE OF SERVICE: August 24, 2024 TIME: [...] PATIENT PRESENTS WITH AN IMPLANTABLE OR ATTACHED CLOTHES DESIGNER: No RADIOLOGY DEPARTMENT: General X-ray: Exam(s) Completed: Lower Extremity X- Ray(s): Knee, AP / Lat / Tunne / Merchant Left and Wt. Bearing PERIPHERAL IV DATA: Not applicable SIGNED BY: RT Eunice(R) August 24, 2024 4:21 PM documented in this encounterTrihealth Mccullough-[facility]02-07-2025 NoteHNO ID: [id number] Author: ARUN LOPEZ RT(R) Service: Radiology Author Type: Technologist Type: Progress Notes Filed: 08/24/2024 16:30 Note Text: Radiology Service Progress Note PATIENT NAME: Shelton Kay DATE OF SERVICE: August 24, 2024 TIME: [...] PATIENT PRESENTS WITH AN IMPLANTABLE OR ATTACHED CLOTHES DESIGNER: No RADIOLOGY DEPARTMENT: General X-ray: Exam(s) Completed: Lower Extremity X-Ray(s): Knee, AP / Lat / Tunne / Merchant Left and Wt. Bearing PERIPHERAL IV DATA: Not applicable SIGNED BY: RT Eunice(R) August 24, 2024 4:21 [facility]02-07-2025 NoteHNO ID: [id number] Author: SUMAYA ALCAZAR APRN.THRESHING MACHINE OPERATOR Service: ? Author Type: Nurse Practitioner Type: Progress Notes Filed: 08/24/2024 17:18 Note Text: Subjective HPI HPI Shelton Kay is a 78 year old male who [...] cause unspecified Arthritis Atherosclerotic heart disease of [place] coronary artery without angina pectoris Atrial fibrillation [...] well as typical atrial flutter with Dr. Wakler on 12/20/2022. Subclavian arterial stenosis (HCC) Unspecified atrial fibrillation (HCC) PAST SURGICAL HISTORY Procedure Laterality Date ARTHROPLASTY TOTAL SHOULDER 06/2011 Dr. Benitez. ARTHRP ACETBLR/PROX FEM PROSTC AGRFT/ALGRFT 04/2012 Dr. Wood> [facility]. ARTHRP KNE CONDYLEANDPLATU MEDIALANDLAT COMPARTMENTS Right COLONOSCOPY FLX DX W/COLLJ SPEC WHEN PFRMD 05/[address] Mejia COLONOSCOPY SCREENING 05/20/2023 COLONOSCOPY W/BIOPSY SINGLE/MULTIPLE 08/24/2006 EGD 12/01/2020 ESOPHAGOGASTRODUODENOSCOPY TRANSORAL DIAGNOSTIC 05/2023 EYE SURGERY HX JOINT REPLACEMENT HX LAMINECTOMY,LUMBAR 06/20/2024 Dr. Pool with [facility] LEFT HEART CATH,PERCUTANEOUS 10/06/2022 OPEN REPAIR OF ROTATOR CUFF ACUTE 10/03/2008 Rotator cuff repair-right PAST SURGICAL HISTORY OF right knee scope PAST SURGICAL HISTORY OF cataract both eyes PAST SURGICAL HISTORY OF N/A 12/20/2022 EPS with Ablation, [facility] PAST SURGICAL HISTORY OF Right 12/26/2023 [...] ROS Objective Blood pressu (more content not included)...[facility]02-07-2025 History of Present illness Narrative* Sumaya Alcazar APRN.THRESHING MACHINE OPERATOR - 08/24/2024 3:59 PM EST Images from the original note were not included. Subjective HPI HPI Shelton Kay is a 78 year old male who [...] cause unspecified Arthritis Atherosclerotic heart disease of [place] coronary artery without angina pectoris Atrial fibrillation [...] ACETBLR/PROX FEM PROSTC AGRFT/ALGRFT 04/2012 Dr. Wood> [facility] ARTHRP KNE CONDYLE&PLATU MEDIAL&LAT COMPARTMENTS Right COLONOSCOPY FLX DX W/COLLJ SPEC WHEN PFRMD 05/[address] Mejia COLONOSCOPY SCREENING 05/20/2023 COLONOSCOPY W/BIOPSY SINGLE/MULTIPLE 08/24/2006 EGD 12/01/2020 ESOPHAGOGASTRODUODENOSCOPY TRANSORAL DIAGNOSTIC 05/2023 EYE SURGERY HX JOINT REPLACEMENT HX LAMINECTOMY,LUMBAR 06/20/2024 Dr. Pool with [facility] LEFT HEART CATH,PERCUTANEOUS 10/06/2022 OPEN REPAIR OF ROTATOR CUFF ACUTE 10/03/2008 Rotator cuff repair-right PAST SURGICAL HISTORY OF right knee scope PAST SURGICAL HISTORY OF cataract both eyes PAST SURGICAL HISTORY OF N/A 12/20/2022 EPS with Ablation, [facility] PAST SURGICAL HISTORY OF Right 12/26/2023 [...] mg by mouth two times a day. [facility] acetaminophen (TYLENOL) 325 mg tablet [...] - PREDNISONE 20 MG TABLET Sumaya Alcazar APRN.THRESHING MACHINE OPERATOR documented in this encounterTrihealth Mccull[facility]02-03-2025 Evaluation note* Diagnosis Onset Date Resolution Status [...] 14, 2024 12:34pm PAD (peripheral artery disease) solar manager ruth November 14, 2024 12:34pm Subclavian arterial stenosis chronic November 14, 2024 12:34pm [facility] Work Phone: 1(710) 625-668202-03-2025 Evaluation note* Diagnosis Onset Date Resolution Status Admit Date Anemia acute August 20, 2024 9:40am Atrial fibrillation chronic 2024 9:40am CAD (coronary artery disease) chroni c August 20, 2024 9:40am Cardiomyopathy chronic August 202024 9:40am Carotid stenosis, bilateral chronic August 20, 2024 9:40am Dyslipidemia chronic August 9:40am Essential (primary) hypertension chronic August 20 9:40am Mitral insufficiency chronic Febr 2024 9:40am Lumbar compression fracture acute September 14, 2024 10:44am Status post laminectomy acute F ebruary 2024 10:44am Carotid stenosis, bilateral chronic November 14, 2024 12:34pm PAD (peripheral artery disease) solar manager ruth November 14, 2024 12:34pm Subclavian arterial [...] Mitral insufficiency chronic December 11, 2024 1:57pm [facility] [employer] Work Phone: 1(438) 908-680101-16-2025 Telephone encounter Note* Telephone Encounter - Phani Rajan APRN.CNP - 08/02/2024 10:25 AM EST The following approved medication requests have been transmitted electronically. Requested Prescriptions Pending Prescriptions Disp Refills allopurinol (ZYLOPRIM) 100 mg tablet 180 tablet 3 Sig: Take 1 tablet by mouth two times a day. Phani Rajan APRN.CNP [facility]01-16-2025 Miscellaneous Notes* Telephone Encounter - Phani Rajan [...] 02, 2024 10:15 AM documented in this encounterTrihealth Mccull[facility]01-16-2025 Telephone encounter Note * Telephone Encounter - [...] Godoy LPN August 02, 2024 10:15 AM [facility]01-07-2025 History of Present illness Narrative* Federico Vigil MD - 07/24/2024 10:40 AM EST Chief Complaint Patient presents with: 6 Month Exam HPI Shelton Kay is a 78 year old male who presents here today for 6 month follow up. No bowel, Gi, or urinary issues. Taking Protonix 20 mg daily for dysphagia. Anemia: Follows with Hem/Onc. Edema: terry legs; L>R foot. Uses Lasix 40 mg once daily as needed. A-fib: Follows with [facility] Dr. Timothy Walker s/p ablation. Taking Eliquis 5 mg 1 pill twicedaily. HTN: No chest pains, dizziness, or SOB. Checks BP at home. Taking Lisinopril 5 mg daily and Coreg 6.25 mg BID. Follows with [facility]. Lipid/CAD/PAD: Follows with Vascular Surgeon Dr. Phi Arreguin. Taking Zocor 20 mg daily and ASA [...] which was done by Dr. Pool with [facility]. He is following with Dr. Burgre, [facility] [...] cause unspecified Arthritis Atherosclerotic heart disease of [place] coronary artery without angina pectoris Atrial fibrillation [...] ACETBLR/PROX FEM PROSTC AGRFT/ALGRFT 04/2012 Dr. Wood> [facility] ARTHRP KNE CONDYLE&PLATU MEDIAL&LAT COMPARTMENTS Right COLONOSCOPY FLX DX W/COLLJ SPEC WHEN PFRMD 05/[address] Mejia COLONOSCOPY SCREENING 05/20/2023 COLONOSCOPY W/BIOPSY SINGLE/MULTIPLE 08/24/2006 EGD 12/01/2020 ESOPHAGOGASTRODUODENOSCOPY TRANSORAL DIAGNOSTIC 05/2023 EYE SURGERY HX JOINT REPLACEMENT HX LAMINECTOMY,LUMBAR 06/20/2024 Dr. Pool with [facility] LEFT HEART CATH,PERCUTANEOUS 10/06/2022 OPEN REPAIR OF ROTATOR CUFF ACUTE 10/03/2008 Rotator cuff repair-right PAST SURGICAL HISTORY OF right knee scope PAST SURGICAL HISTORY OF cataract both eyes PAST SURGICAL HISTORY OF N/A 12/20/2022 EPS with Ablation, [facility] PAST SURGICAL HISTORY OF Right 12/26/2023 [...] with Cardio 6. Coronary artery disease involving [place] coronary artery of [place] heart with angina pectoris (HCC) - ICD9: [...] Past Histories independently gathered by the clinical ict support engineer and the remaining scribed note accurately describes [...] AM. Janneth Burkett MA documented in this encounterTrihealth Mccull[facility]01-07-2025 NoteHNO ID: [id number] Author: FEDERICO VIGIL MD Service: ? Author Type: Physician Type: Progress Notes Filed: 07/24/2024 11:42 Note Text: Chief Complaint Patient presents with: 6 Month Exam HPI Shelton Kay is a 78 year old male who presents here today for 6 month follow up. No bowel, Gi, or urinary issues. Taking Protonix 20 mg daily for dysphagia. Anemia: Follows with Hem/Onc. Edema: terry legs; L>R foot. Uses Lasix 40 mg once daily as needed. A-fib: Follows with [facility] Dr. Timothy Walker s/p ablation. Taking Eliquis 5 mg 1 pill twice daily. HTN: No chest pains, dizziness, or SOB. Checks BP at home. Taking Lisinopril 5 mg daily and Coreg 6.25 mg BID. Follows with [facility]. Lipid/CAD/PAD: Follows with Vascular Surgeon Dr. Phi Arreguin. Taking Zocor 20 mg daily and ASA [...] [facility] He is following with Dr. Burger, Pain [...] cause unspecified Arthritis Atherosclerotic heart disease of [place] coronary artery without angina pectoris Atrial fibrillation [...] ACETBLR/PROX FEM PROSTC AGRFT/ALGRFT 04/2012 Dr. Wood> [facility] ARTHRP KNE CONDYLEANDPLATU MEDIALANDLAT COMPARTMENTS Right COLONOSCOPY FLX DX W/COLLJ SPEC WHEN PFRMD 05/[address] Mejia COLONOSCOPY SCREENING 05/20/2023 COLONOSCOPY W/BIOPSY SINGLE/MULTIPLE 08/24/2006 EGD 12/01/2020 ESOPHAGOGASTRODUODENOSCOPY TRANSORAL DIAGNOSTIC 05/2023 EYE SURGERY HX JOINT REPLACEMENT HX LAMINECTOMY,LUMBAR 06/20/2024 [facility] LEFT HEART CATH,PERCUTANEOUS 10/06/2022 OPEN REPAIR OF ROTATOR CUFF ACUTE 10/03/2008 Rotator cuff repair-right PAST SURGICAL HISTORY OF right knee scope PAST SURGICAL HISTORY OF cataract both eyes PAST SURGICAL HISTORY OF N/A 12/20/2022 EPS with Ablation, [facility] PAST SURGICAL HISTORY OF Right 12/26/2023 [...] by mouth once daily (more content not included)...[facility]12-30-2024 Telephone encounter Note* Telephone Encounter - Raiza Segovia - 07/16/2024 10:40 AM EST Scheduled [facility]12-30-2024 Miscellaneous Notes* Telephone Encounter - Raiza Segovia - 07/16/2024 10:40 AM EST Scheduled * Telephone Encounter - Gina Malave LPN - 07/16/2024 9:27 AM EST Pt.needs scheduled for CBC/Iron studies. PSS please put on lab schedule for 1/2 @ 11:00 am Gina Malave LPN * Telephone Encounter - Guadalupe Sofia - 07/16/2024 9:11 AM EST Spouse called stating that patient had labs completed at [facility], she believes on 06/17. She states blood counts were low and is asking for an appointment or phone call. Please advise. documented in this encounterTrihealth Mccullough-[facility] Hospital12-30-2024 Telephone encounter Note * Telephone Encounter - Gina Malave LPN - 07/16/2024 9:27 AM EST Pt.needs scheduled for CBC/Iron studies. PSS please put on lab schedule for 2 @ 11:00 am Gina Malave LPN [facility]12-30-2024 Telephone encounter Note* Telephone Encounter - Guadalupe Sofia - 07/16/2024 9:11 AM EST Spouse called stating that patient had labs completed at [facility], she believes on 06/17. She states blood counts were low and is asking for an appointment or phone call. Please advise. [facility] Work Phone: [phone]) 932-169312-16-2024 Telephone encounter Note* Telephone Encounter - Magali Diaz LPN - 07/02/2024 2:30 PM EST TC to pt. Left a detailed message on a secure line with updates. Magali Diaz LPN [facility]12-16-2024 Miscellaneous Notes* Telephone Encounter - Magali Diaz LPN - 07/02/2024 2:30 PM EST TC to pt. Left a detailed message on a secure line with updates. Magali Diaz LPN * Telephone Encounter - Ruth Miranda APRN.CNP - 07/02/2024 2:27 PM EST Can you please call Ranulfo back and let him know that yes the patient should be taking allopurinol 100 mg twice daily, I updated the MAR. We are also agreeable with physical therapy plan of care. Please let me know if he has any additional questions. Thank you. Ruth Miranda APRN.LIZET * Telephone Encounter - Barbara Roman RN - 07/02/2024 1:34 PM EST Ranulfo with [facility] Physical Therapy calling with the following: [...] with clarification of frequency for this medication. [phone]. Thank you. documented in this encounterTrihealth Mccullough-[facility]12-16-2024 Telephone encounter Note * Telephone Encounter - Ruth Miranda APRN.CNP - 07/02/2024 2:27 PM EST Can you please call Ranulfo back and let him know that yes the patient should be taking allopurinol 100 mg twice daily, I updated the MAR. We are also agreeable with physical therapy plan of care. Please let me know if he has any additional questions. Thank you. Ruth Miranda APRN.THRESHING MACHINE OPERATOR [facility]12-16-2024 Telephone encounter Note* Telephone Encounter - Barbara Roman RN - 07/02/2024 1:34 PM EST Ranulfo with [facility] Physical Therapy calling with the following: [...] with clarification of frequency for this medication. [phone]. Thank you. [facility]12-13-2024 Telephone encounter Note* Telephone Encounter - Yasmeen Oliveros MA - 06/29/2024 1:55 PM EST Called and LM on confidential intake line with information below. If questions to contact office and ask to speak with Triage Nurse. Yasmeen Oliveros MA [facility]12-13-2024 Miscellaneous Notes* Telephone Encounter - Yasmeen Oliveros [...] OK for delay in care order because [facility] is not available tosee patient until Tuesday Federico Vigil MD * Telephone Encounter - Evon Ross RN - 06/29/2024 12:16 PM EST Susy - [facility] HH- reports patient will discharge from [facility] today with orders for [facility]HC PT OT. Dx: L5 compression fracture. Asking if pcp is agreeable to follow for orders, and asking for delay in care order because C is not available to see patient until Tuesday. Please phone Susy with verbal: [phone] documented in this encounterTrihealth M[facility]12-[facility]-2024 Telephone encounter Note * Telephone Encounter - Federico Vigil MD - 06/29/2024 1:52 PM EST I am agreeable to follow for orders, and OK for delay in care order because [facility] is not available tosee patient until Tuesday Federico Vigil MD [facility]12-13-2024 Telephone encounter Note* Telephone Encounter - Evon Ross RN - 06/29/2024 12:16 PM EST Susy - [facility] HH- reports patient will discharge from [facility] today with orders for [facility]HC PT OT. Dx: L5 compression fracture. Asking if pcp is agreeable to follow for orders, and asking for delay in care order because [facility] is not available to see patient until Tuesday. Please phone Susy with verbal: [phone] [facility]12-13-2024 [facility]12-12-2024 [facility]12-04-2024 [facility]12-02-2024 Telephone encounter Note* Telephone Encounter - Gt Barcenas LPN - 06/18/2024 2:12 PM EST called asking that today labs be faxed to Dr. Pool at [facility]. Labs printed and faxed as requested. [facility]12-02-2024 Miscellaneous Notes* Telephone Encounter - Gt Barcenas LPN - 06/18/2024 2:12 PM EST called asking that today labs be faxed to Dr. Pool at [facility]. Labs printed and faxed as requested. documented in this encounterTrihealth M[facility]11-27-2024 Telephone encounter Note * Telephone Encounter - Ruth Miranda APRN.CNP - 06/13/2024 2:27 PM EST Lab order has been placed. Thank you. Ruth Miranda APRN.LIZET [facility]11-27-2024 Miscellaneous Notes* Telephone Encounter - Ruth Miranda APRN.CNP - 06/13/2024 2:27 PM EST Lab order has been placed. Thank you. Ruth Miranda APRN.THRESHING MACHINE OPERATOR * Telephone Encounter - Magali Diaz LPN - 06/13/2024 12:29 PM EST Patient notified of updates, verbalizes understanding of instructions. stated they will do labs on Tuesday. Magali Diaz LPN * Telephone Encounter - Ruth Miranda APRN.CNP - 06/13/2024 12:14 PM EST Can [...] recheck labs on Tuesday or Tuesday? Ruth Miranda APRN.THRESHING MACHINE OPERATOR * Telephone Encounter - Magali Chairez RN [...] if this was a question for his custom home installer or if Ruth can answer questions. * Telephone Encounter - Evon Ross RN - 06/13/2024 9:23 AM EST Susy- Dr. Pool's office- [facility] [facility]- phoned to let Ruth know, labs and EKG were completed yesterday. The lab results are in epic as outside labs. Susy wants to make sure you look at the [facility] lab- [id number] yesterday. Susy is going to fax the EKG results to your office today. Dr. Pool's fax # [phone] documented in this encounterTrihealth [facility]11-27-2024 Telephone encounter Note * Telephone Encounter - Magali Diaz LPN - 06/13/2024 12:29 PM EST Patient notified of updates, verbalizes understanding of instructions. stated they will do labs on Tuesday. Magali Diaz LPN [facility]11-27-2024 Telephone encounter Note* Telephone Encounter - Ruth Miranda APRN.CNP - 06/13/2024 12:14 PM EST Can [...] recheck labs on Tuesday or Tuesday? Ruth Miranda APRN.THRESHING MACHINE OPERATOR [facility]11-27-2024 Telephone encounter Note* Telephone Encounter - Magali [...] if this was a question for his custom home installer or if Ruth can answer questions. [facility]11-27-2024 Telephone encounter Note* Telephone Encounter - Evon Ross RN - 06/13/2024 9:23 AM EST Denis Pool's office- [facility] [facility]- phoned to let Ruth know, labs and EKG were completed yesterday. The lab results are in epic as outside labs. Susy wants to make sure you look at the [facility] lab- [id number] yesterday. Susy is going to fax the EKG results to your office today. Dr. Pool's fax # [phone] [facility]11-26-2024 Instructions* Patient Instructions* Ruth Miranda APRN.CNP - 06/12/2024 10:18 AM EST Get labs and EKG completed Preop forms will be completed Keep scheduled appointments with specialist Continue to take all medication as prescribed Follow up as needed. documented in this encounterTrihealth M[facility]11-[facility] History of Present illness Narrative* Ruth Miranda APRN.CNP - 06/12/2024 10:00 AM EST This is a 78 year old male who presents today with: Patient presents with: Pre-Op Exam HISTORY OF PRESENT ILLNESS: Shelton Kay is a 78 year old male. Patient presents with: Pre-Op Exam Here in the office for preop clearance. Will be having lumbar laminectomy L4-L5, with Dr. Pool at [facility] On June 20, 2024. Will be getting labs and EKG at [facility] today. Pain has been severe, pain radiating into the legs, worse on the right. Feet will go numb. Seeing Dr. Yesenia barrios management today to help with medication management. Difficulty getting comfortable. Taking Perocet 5/325 mg. Finished prednisone. Taking Tylenol 1000 mg every 8 hours. Muscle relaxant was not helpful. GERD: Has had a EGD completed in the past. Taking Protonix 20 mg daily. A-fib: Following with cardiology, Dr. Hanna at [facility]. Taking Eliquis 5 mg twice [...] cause unspecified Arthritis Atherosclerotic heart disease of [place] coronary artery without angina pectoris Atrial fibrillation [...] ACETBLR/PROX FEM PROSTC AGRFT/ALGRFT 04/2012 Dr. Wood> [facility]. ARTHRP KNE CONDYLE&PLATU MEDIAL&LAT COMPARTMENTS Right COLONOSCOPY [...] HISTORY OF N/A 12/20/2022 EPS with Ablation, [facility] PAST SURGICAL HISTORY OF Right 12/26/2023 [...] (primary diagnosis) - Complete preop testing at [facility] - Preop forms will be completed once test results are reviewd, forms will be faxed back to Dr. Pool. - Keep scheduled surgery date - Due to Afib will need anticoagulation instructions/preference from custom home installer. 2. Chronic midline low back pain without [...] with cardiology. 6. Coronary artery disease involving [place] coronary artery of [place] heart with angina pectoris (HCC) - ICD9: [...] were discussed and patient voices understanding. Ruth Miranda APRN.CNP This note was partially generated using [employer] voice recognition system. Note was reviewed for accuracy. There may be minor misspellings or grammar miscues with [employer] voice recognition. documented in this encounterTrihealth Mcc[facility]11-26-2024 NoteHNO ID: [id number] Author: RUTH MIRANDA APRN.CNP Service: ? Author Type: Nurse Practitioner Type: Progress Notes Filed: 06/12/2024 13:39 Note Text: This is a 78 year old male who presents today with: Patient presents with: Pre-Op Exam HISTORY OF PRESENT ILLNESS: Shelton Kay is a 78 year old male. Patient presents with: Pre-Op Exam Here in the office for preop clearance. Will be having lumbar laminectomy L4-L5, with Dr. Pool at [facility] On June 20, 2024. Will be getting labs and EKG at [facility] today. Pain has been severe, pain radiating [...] A-fib: Following with cardiology, Dr. Hanna at [facility]. Taking Eliquis 5 mg twice [...] cause unspecified Arthritis Atherosclerotic heart disease of [place] coronary artery without angina pectoris Atrial fibrillation [...] ACETBLR/PROX FEM PROSTC AGRFT/ALGRFT 04/2012 Dr. Wood> [facility]. ARTHRP KNE CONDYLEANDPLATU MEDIALANDLAT COMPARTMENTS Right COLONOSCOPY [...] HISTORY OF N/A 12/20/2022 EPS with Ablation, [facility] PAST SURGICAL HISTORY OF Right 12/26/2023 [...] daily. apixaban (ELIQUIS) 5 (more content not included)...[facility] 06-11-2024 Telephone encounter Note* Telephone Encounter - Magali Diaz LPN - 06/11/2024 8:58 AM EST Pt has a pre - op appt with [facility] on 06/12/24 Magali Diaz LPN [facility]11-25-2024 Miscellaneous Notes* Telephone Encounter - Magali Diaz LPN - 06/11/2024 8:58 AM EST Pt has a pre - op appt with [facility] on 06/12/24 Magali Diaz LPN * Telephone Encounter - Federico Vigil MD - 06/08/2024 5:08 PM EST He needs appt in the next few days to complete this. His last routine check was in January. Surgery scheduled for Jun 20. Federico Vigil MD * Telephone Encounter - Yasmeen Oliveros MA - 06/07/2024 2:20 PM EST Type of form: Medical Clearance for surgery from [facility] for Lumbar Laminectomy (L4-L5) on 06/20/24. Form received via fax When form is completed, Fax form to [phone] Form has been forwarded to Physician Desk: Dr. Yaritza Oliveros MA documented in this encounterTrihealth [facility]11-[facility]-2024 Telephone encounter Note * Telephone Encounter - Federico Vigil MD - 06/08/2024 5:08 PM EST He needs appt in the next few days to complete this. His last routine check was in January. Surgery scheduled for Jun 20. Federico Vigil MD [facility]11-21-2024 Telephone encounter Note* Telephone Encounter - Yasmeen Oliveros MA - 06/07/2024 2:20 PM EST Type of form: Medical Clearance for surgery from [facility] for Lumbar Laminectomy (L4-L5) on 06/20/24. Form received via fax When form is completed, Fax form to [phone] Form has been forwarded to Physician Desk: Dr. Yaritza Oliveros MA [facility]11-14-2024 Telephone encounter Note* Telephone Encounter - Ruth Miranda APRN.CNP - 05/31/2024 10:41 AM EST The following approved medication requests have been transmitted electronically. Requested Prescriptions Signed Prescriptions Disp Refills cyclobenzaprine (FLEXERIL) 10 mg tablet 30 tablet 0 Sig: Take 1 tablet by mouth three times a day as needed for up to 10 days. Ruth Miranda APRN.CNP [facility]11-14-2024 Miscellaneous Notes* Telephone Encounter - Ruth Miranda APRN.CNP - 05/31/2024 10:41 AM EST The following approved medication requests have been transmitted electronically. Requested Prescriptions Signed Prescriptions Disp Refills cyclobenzaprine (FLEXERIL) 10 mg tablet 30 tablet 0 Sig: Take 1 tablet by mouth three times a day as needed for up to 10 days. Ruth Miranda APRN.CNP * Telephone Encounter - Yasmeen Oliveros MA - 05/31/2024 10:16 AM EST Please see message and advise. Yasmeen Oliveros MA documented in this encounterTrihealth Mcc[facility]11-14-2024 Telephone encounter Note * Telephone Encounter - Yasmeen Oliveros MA - 05/31/2024 10:16 AM EST Please see message and advise. Yasmeen Oliveros MA [facility]11-13-2024 Instructions* Patient Instructions* Ruth Miranda APRN.CNP - 05/30/2024 2:50 PM EST Kenalog injection given today (Steroid) Start prednisone taper tomorrow, take with food May use Percocet as needed for moderate to severe pain May use additional tylenol as needed Continue supportive care at home May apply heat and gentle stretching Keep scheduled appointment next week with pain management Follow up as needed. documented in this encounterTrihealth [facility]11-[facility] History of Present illness Narrative* Ruth Miranda APRN.CNP - 05/30/2024 2:40 PM EST This is a 78 year old male who presents today with: Patient presents with: Acute Visit: Low back pain HISTORY OF PRESENT ILLNESS: Shelton Kay is a 78 year old male. Patient [...] cause unspecified Arthritis Atherosclerotic heart disease of [place] coronary artery without angina pectoris Atrial fibrillation [...] ACETBLR/PROX FEM PROSTC AGRFT/ALGRFT 04/2012 Dr. Wood> [facility]. ARTHRP KNE CONDYLE&PLATU MEDIAL&LAT COMPARTMENTS Right COLONOSCOPY [...] HISTORY OF N/A 12/20/2022 EPS with Ablation, [facility] PAST SURGICAL HISTORY OF Right 12/26/2023 [...] were discussed and patient voices understanding. Ruth Miranda APRN.CNP This note was partially generated using [employer] voice recognition system. Note was reviewed for accuracy. There may be minor misspellings or grammar miscues with Dragon voice recognition. PDMP website checked and validated. All prescriptions have been APPROPRIATELY filled. No suspiciousactivity was identified. 05/30/2024 by Ruth Miranda APRN.CNP documented in this encounterTrihealth M[facility]11-13-2024 NoteHNO ID: [id number] Author: RUTH MIRANDA APRN.CNP Service: ? Author Type: Nurse Practitioner Type: Progress Notes Filed: 05/30/2024 16:35 Note Text: This is a 78 year old male who presents today with: Patient presents with: Acute Visit: Low back pain HISTORY OF PRESENT ILLNESS: Shelton Kay is a 78 year old male. Patient [...] cause unspecified Arthritis Atherosclerotic heart disease of [place] coronary artery without angina pectoris Atrial fibrillation [...] ACETBLR/PROX FEM PROSTC AGRFT/ALGRFT 04/2012 Dr. Wood> [facility]. ARTHRP KNE CONDYLEANDPLATU MEDIALANDLAT COMPARTMENTS Right COLONOSCOPY [...] HISTORY OF N/A 12/20/2022 EPS with Ablation, [facility] PAST SURGICAL HISTORY OF Right 12/26/2023 [...] 0.00 Average packs/day: 1 (more content not included)...[facility] 05-24-2024 History of Present illness Narrative* Ruth Miranda APRN.[facility] - 05/24/2024 9:20 AM EST This is a 78 year old male who presents today with: Patient presents with: Acute Visit: lingering cough and cold HISTORY OF PRESENT ILLNESS: Shelton Kay is a 78 year old male. Patient [...] cause unspecified Arthritis Atherosclerotic heart disease of [place] coronary artery without angina pectoris Atrial fibrillation [...] ACETBLR/PROX FEM PROSTC AGRFT/ALGRFT 04/2012 Dr. Wood> [facility]. ARTHRP KNE CONDYLE&PLATU MEDIAL&LAT COMPARTMENTS Right COLONOSCOPY [...] HISTORY OF N/A 12/20/2022 EPS with Ablation, [facility] PAST SURGICAL HISTORY OF Right 12/26/2023 [...] were discussed and patient voices understanding. Ruth Miranda APRN.CNP This note was partially generated using [employer] recognition system. Note was reviewed for accuracy. There may be minor misspellings or grammar miscues with [employer] voice recognition. documented in this encounterTrihealth M[facility]11-07-2024 NoteHNO ID: [id number] Author: RUTH MIRANDA APRN.CNP Service: ? Author Type: Nurse Practitioner Type: Progress Notes Filed: 05/24/2024 09:54 Note Text: This is a 78 year old male who presents today with: Patient presents with: Acute Visit: lingering cough and cold HISTORY OF PRESENT ILLNESS: Shelton Kay is a 78 year old male. Patient [...] cause unspecified Arthritis Atherosclerotic heart disease of [place] coronary artery without angina pectoris Atrial fibrillation [...] ACETBLR/PROX FEM PROSTC AGRFT/ALGRFT 04/2012 Dr. Wood> [facility] ARTHRP KNE CONDYLEANDPLATU MEDIALANDLAT COMPARTMENTS Right [...] HISTORY OF N/A 12/20/2022 EPS with Ablation, [facility] PAST SURGICAL HISTORY OF Right 12/26/2023 [...] use: Yes Comment: occasional (more content not included)...[facility] 05-24-2024 Instructions* Patient Instructions* Ruth Miranda APRN.CNP - 05/24/2024 9:12 AM EST Start Doxycyline, take with food, hold vitamins while taking antibiotic Start prednisone 20 mg daily for the next 5 days May use Tessalon Perles as needed for cough Stay well hydrated Follow up as needed. documented in this encounterTrihealth [facility]11-04-2024 Telephone encounter Note * Telephone Encounter - Phani Rajan APRN.CNP - 05/21/2024 7:22 AM EST The following approved medication requests have been transmitted electronically. Requested Prescriptions Pending Prescriptions Disp Refills allopurinol (ZYLOPRIM) 100 mg tablet 180 tablet 3 Sig: Take 1 tablet by mouth once daily. Phani Rajan APRN.CNP [facility]11-04-2024 Miscellaneous Notes* Telephone Encounter - Phani Rajan [...] 21, 2024 6:58 AM documented in this encounterTrihealth Mcc[facility]11-04-2024 Telephone encounter Note * Telephone Encounter - [...] Cano LPN May 21, 2024 6:58 AM [facility]10-30-2024 Telephone encounter Note* Telephone Encounter - Phani Rajan APRN.CNP - 05/16/2024 12:27 PM EDT The following approved medication requests have been transmitted electronically. Requested Prescriptions Pending Prescriptions Disp Refills pantoprazole DR (PROTONIX) 20 mg tablet 90 tablet 3 Sig: Take 1 tablet by mouth daily before breakfast. Take on empty stomach, 1/2 hr before meal. Phani Rajan APRN.CNP [facility]10-30-2024 Miscellaneous Notes* Telephone Encounter - Phani Rajan [...] 16, 2024 11:14 AM documented in this encounterTrihealth Mcc[facility]10-30-2024 Telephone encounter Note * Telephone Encounter - [...] Diaz LPN May 16, 2024 11:14 AM [facility]10-07-2024 History of Present illness Narrative* David Lundberg - 04/23/2024 8:39 AM EDT Images from the original note were not included. Hematology Progress Note Shelton Kay 1945 Encounter date: 04/23/2024 Cancer Staging No matching staging information was found for the patient. 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 Presents today for evaulation of anemia. Recent [facility] labs from 08/15/23 demonstrated Hgb 10.1. He [...] to works out regularly. Active golf, bowling. [employer] Tuesday - Tuesday but recently feels he [...] stools or BRB. On plavix and eliquis. "Bad gout" in the last year. Started plaquenil about 6 months ago. Prednisone and lasix as needed. Multivitamin. No additional supplements or OTC meds. Does not take any NSAIDs. Tylenol as needed. Taking miralax and magnesium daily to prevent constipation. No known personal or family hx of blood disorders. Father, lung ca. Mother, kidney ca. [place] for 33 years, retired - no known chemical exposures. Interval Hx: Mr. Kay presents today for follow up and lab [...] symptoms. He is planning to call his custom home installer once he returns home this afternoon. PAST MEDICAL HISTORY Diagnosis Date Allergic rhinitis, cause unspecified Arthritis Atherosclerotic heart disease of [place] coronary artery without angina pectoris Atrial fibrillation [...] FEM PROSTC AGRFT/ALGRFT 04/2012 Dr. Wood> [facility] ARTHRP KNE CONDYLE&PLATU MEDIAL&LAT COMPARTMENTS Right [...] HISTORY OF N/A 12/20/2022 EPS with Ablation, [facility] PAST SURGICAL HISTORY OF Right 12/26/2023 [...] 07/31/2023, injury : Assessment and Plan: Mr. Kay is a pleasant 78 year old gentleman [...] like labs faxed to Dr. Gabbi Lundberg APRN.THRESHING MACHINE OPERATOR I spent a total of 25 minutes on the date of the service which included preparing to see the patient, [id number] patient care, completing clinical documentation, and performing [...] evaluation of this patient. documented in this encounterTrihealth Mcc[facility]09-12-2024 Instructions* Patient Instructions* Ruth Miranda APRN.THRESHING MACHINE OPERATOR - 03/29/2024 7:57 AM EDT If back pain does not improve, start the prednisone taper, take with food May use muscle relaxant as needed. Apply steroid cream to rash for the next 10 days. Follow up if no improvement. documented in this encounterTrihealth Mcc[facility]09-12-2024 History of Present illness Narrative* Ruth Miranda APRN.CNP - 03/29/2024 7:40 AM EDT This is a 78 year old male who presents today with: Patient presents with: Acute Visit: rash on right leg HISTORY OF PRESENT ILLNESS: Shelton Kay is a 78 year old male. Patient [...] Arthritis No date: Atherosclerotic heart disease of [place] coronary artery without angina pectoris No date: [...] ACETBLR/PROX FEM PROSTC AGRFT/ALGRFT Comment: Dr. Wood> [facility] No date: ARTHRP KNE CONDYLE&PLATU MEDIAL&LAT [...] HISTORY OF; N/A Comment: EPS with Ablation, [facility] Horowitz 12/26/2023: PAST SURGICAL HISTORY OF; Right [...] were discussed and patient voices understanding. Ruth Miranda APRN.THRESHING MACHINE OPERATOR This note was partially generated using [employer] voice recognition system. Note was reviewed for accuracy. There may be minor misspellings or grammar miscues with [employer] voice recognition. documented in this encounterTrihealth Mcc[facility]08-22-2024 Telephone encounter Note * Telephone Encounter - Ruth Miranda APRN.CNP - 03/08/2024 11:27 AM EDT The following approved medication requests have been transmitted electronically. Requested Prescriptions Signed Prescriptions Disp Refills predniSONE (DELTASONE) 10 mg tablet 21 tablet 0 Sig: Take 4 tabs daily for 3 days, then 2 tabs daily for 3 days, then 1 tab daily for 3 days with food. Authorizing Provider: RUTH MIRANDA tiZANidine (ZANAFLEX) 4 mg tablet 30 tablet 0 Sig: Take 1 tablet by mouth every 8 hours as needed (muscle spasms) for up to 10 days. Authorizing Provider: RUTH MIRANDA APRN.CNP [facility]08-22-2024 Miscellaneous Notes* Telephone Encounter - Ruth Miranda APRN.CNP - 03/08/2024 11:27 AM EDT The following approved medication requests have been transmitted electronically. Requested Prescriptions Signed Prescriptions Disp Refills predniSONE (DELTASONE) 10 mg tablet 21 tablet 0 Sig: Take 4 tabs daily for 3 days, then 2 tabs daily for 3 days, then 1 tab daily for 3 days with food. Authorizing Provider: RUTH MIRANDA tiZANidine (ZANAFLEX) 4 mg tablet 30 tablet 0 Sig: Take 1 tablet by mouth every 8 hours as needed (muscle spasms) for up to 10 days. Authorizing Provider: RUTH MIRANDA APRN.CNP * Telephone Encounter - Magali Diaz LPN - 03/08/2024 11:18 AM EDT Patient notified of recommendations, verbalizes understanding of instructions. Pt stated he will do both Prednisone and muscle relaxant. Please send to [facility] [place]. Magali Diaz LPN * Telephone Encounter - Ruth Miranda APRN.LIZET - 03/08/2024 11:10 AM EDT Can you please call the patient back and ask if he would like to do a prednisone taper to see if that will help with his pain? If he is agreeable please verify pharmacy. If he would like I can order a muscle relaxant as well. Please let me know what he prefers. Thank you. Ruth Miranda APRN.LIZET * Telephone Encounter - Gretel Morelos [...] call them about his back. Pt uses [facility] in [place]. Please call and advise. documented in this encounterTrihealth Mcc[facility]08-22-2024 Telephone encounter Note * Telephone Encounter - Magali Diaz LPN - 03/08/2024 11:18 AM EDT Patient notified of recommendations, verbalizes understanding of instructions. Pt stated he will do both Prednisone and muscle relaxant. Please send to [facility] [place]. Magali Diaz LPN [facility]08-22-2024 Telephone encounter Note* Telephone Encounter - Ruth Miranda APRN.LIZET - 03/08/2024 11:10 AM EDT Can you please call the patient back and ask if he would like to do a prednisone taper to see if that will help with his pain? If he is agreeable please verify pharmacy. If he would like I can order a muscle relaxant as well. Please let me know what he prefers. Thank you. Ruth Miranda APRN.THRESHING MACHINE OPERATOR [facility]08-22-2024 Telephone encounter Note* Telephone Encounter - Gretel Morelos RN - [...] call them about his back. Pt uses [facility] in [place]. Please call and advise. [facility]08-18-2024 NoteIMPRESSION: Degenerative changes of the lumbar spine, progressed since the previous study. Cloth Shrinking Tester: SIA Transcribe Date/Time: Mar 04 2024 7:39P Dictated by : KINJAL GALEAS MD This examination was interpreted and the report reviewed and electronically signed by: KINJAL GALEAS MD on Mar 04 2024 7:40PM [facility] [id number] History of Present illness Narrative* Sheridan Gilbert RT(R) - 02/28/2024 2:50 PM EDT Radiology Service Progress Note PATIENT NAME: Shelton Kay DATE OF SERVICE: February 28, 2024 TIME: [...] PATIENT PRESENTS WITH AN IMPLANTABLE OR ATTACHED CLOTHES DESIGNER: No RADIOLOGY DEPARTMENT: General X-ray: Exam(s) Completed: Spine X-Ray(s): Lumbar AP / LAT / L5-S1 PERIPHERAL IV DATA: Not applicable SIGNED BY: RT Damion(R) February 28, 2024 2:53 PM documented in this encounterTrihealth Mccull[facility]08-12-2024 History of Present illness Narrative* Federico Vigil MD - 02/27/2024 6:40 PM EDT Chief Complaint Patient presents with: Back Pain HPI Shelton Kay is a 78 year old male who [...] Arthritis No date: Atherosclerotic heart disease of [place] coronary artery without angina pectoris No date: [...] HISTORY OF; N/A Comment: EPS with Ablation, [facility] 12/26/2023: PAST SURGICAL HISTORY OF; Right [...] Low Federico Vigil MD documented in this encounterTrihealth Mccull[facility]07-12-2024 Telephone encounter Note * Telephone Encounter - Vle Patel MA - 01/27/2024 3:34 PM EDT Left detailed message regarding future appt Carotid US 02/27/24 10:00am [facility]. [facility]07-12-2024 Miscellaneous Notes* Telephone Encounter - Vel Patel MA - 01/27/2024 3:34 PM EDT Left detailed message regarding future appt Carotid US 02/27/24 10:00am [facility]. documented in this encounterTrihealth Mccull[facility]07-11-2024 NoteHNO ID: [id number] Author: PHI ARREGUIN MD Service: ? Author Type: Physician Type: Progress Notes Filed: 01/26/2024 09:17 Note Text: Shelton Kay is a 78 year old male who [...] FOLLOW UP: No follow-ups on file. Phi Arreguin [facility]07-11-2024 History of Present illness Narrative* Phi Arreguin MD - 01/26/2024 8:50 AM EDT Shelton Kay is a 78 year old male who [...] FOLLOW UP: No follow-ups on file. Phi Arreguin MD documented in this encounterTrihealth Mccull[facility]07-05-2024 History of Present illness Narrative* Federico Vigil MD - 01/20/2024 9:00 AM EDT Chief Complaint Patient presents with: F/U 6 Month HPI Shelton Kay is a 78 year old male who presents here today for 6 month follow up. Pt here today for a follow up. Daughter, Li here with him today. No bowel, Gi, or urinary issues. Taking Protonix 20 mg daily for dysphagia. Had EGD completed in past for this. Lipid/CAD: Follows with Vascular Surgeon Dr. Phi Arreguin, had endarterectomy done 12/26/23, bilateral carotid stenosis. Has not been fully released to do all activities, is able to now walk on a treadmill. Hopefully get released to do more activities such as lift weights and golf. States he doesn't eat real badly. Current regimen of Zocor 20 mg daily and ASA 81 mg daily. Tolerating the Zocor well. A-fib: Follows with EP [facility] Dr. Timothy Walker s/p ablation. Was recently [...] 5 mg once daily. Cardio Doctor at [facility] added Lisinopril to regimen due to increased [...] cause unspecified Arthritis Atherosclerotic heart disease of [place] coronary artery without angina pectoris Atrial fibrillation [...] ACETBLR/PROX FEM PROSTC AGRFT/ALGRFT 04/2012 Dr. Wood> [facility] ARTHRP KNE CONDYLE&PLATU MEDIAL&LAT COMPARTMENTS Right [...] HISTORY OF N/A 12/20/2022 EPS with Ablation, [facility] TONSILLECTOMY HX TONSILLECTOMY PRIMARY/SECONDARY <AGE 12 [...] medication regimen. 5. Coronary artery disease involving [place] coronary artery of [place] heart with angina pectoris (HCC) - ICD9: [...] Past Histories independently gathered by the clinical ict support engineer and the remaining scribed note accurately describes [...] AM. Yasmeen Oliveros MA documented in this encounterTrihealth Mcc[facility]06-28-2024 Telephone encounter Note * Telephone Encounter - Delmy Spear LPN - 01/13/2024 4:02 PM EDT Ry called back stating Shelton's B/P is higher than it usual is. She said this morning it was 186/69 & 160/60 prior to taking his medications. I told her to call her custom home installer or PCP for blood pressure management. I also let her know I did let Dr. Arreguin know about his B/P & the firm lump area on his neck & she agreed- just to keep an eye on it as we discussed earlier. Ry voiced understanding. Delmy Spear LPN [facility]06-28-2024 Miscellaneous Notes* Telephone Encounter - Delmy Spear LPN - 01/13/2024 4:02 PM EDT Ry called back stating Shelton's B/P is higher than it usual is. She said this morning it was 186/69 & 160/60 prior to taking his medications. I told her to call her custom home installer or PCP for blood pressure management. I also let her know I did let Dr. Arreguin know about his B/P & the firm lump area on his neck & she agreed- just to keep an eye on it as we discussed earlier. Ry voiced understanding. Delmy Spear LPN documented in this encounterTrihealth Mcc[facility]06-28-2024 Telephone encounter Note * Telephone Encounter - Delmy Spear LPN - 01/13/2024 1:14 PM EDT Ry [...] Shelton has post op appt with Dr. Arreguin 01/26/24. Delmy Spear LPN [facility]06-28-2024 Miscellaneous Notes* Telephone Encounter - Delmy Spear LPN - 01/13/2024 1:14 PM EDT Ry [...] Shelton has post op appt with Dr. Arreguin 01/26/24. Delmy Spear LPN documented in this encounterTrihealth Mcc[facility]06-21-2024 Telephone encounter Note * Telephone Encounter - Keila Lucas LPN - 01/06/2024 11:03 AM EDT Notified patient per below. Keila Lucas LPN January 06, 2024 11:03 AM [facility]06-21-2024 Miscellaneous Notes* Telephone Encounter - Keila Lucas LPN - 01/06/2024 11:03 AM EDT Notified patient per below. Keila Lucas LPN January 06, 2024 11:03 AM * Telephone Encounter - Elena Watkins APRN.THRESHING MACHINE OPERATOR - 01/05/2024 4:00 PM EDT Images from the original note were not included. Photo received & reviewed. * The above image(s) of the NECK was/were taken on 01/05/24 by the patient, for use in clinical documentation purposes only using an encrypted, [facility] approved device. All efforts were made to [...] suspiciousactivity was identified. 01/05/2024 by Elena Watkins APRN.THRESHING MACHINE OPERATOR Thanks, Elena Watkins APRN.THRESHING MACHINE OPERATOR * Telephone Encounter - Keila Lucas LPN - 01/05/2024 3:24 PM EDT This [...] the last few days compared to the "squishiness" of skin/tissue. This Nurse provided [facility] phone number to send a picture. Patient asking if Tramadol can be refilled since he is still having pain? Pharmacy: [facility] Lucas LPN January 05, 2024 3:29 PM * Telephone Encounter - Keila Lucas LPN - 01/04/2024 4:15 PM EDT Attempted to contact patient however no answer. This Nurse left a voice message requesting a returncall, providing our phone number. Keila Lucas LPN January 04, 2024 4:16 PM * [...] to monitor for now. Elena Watkins APRN.LIZET * Telephone Encounter - Keila Lucas LPN - 01/04/2024 11:53 AM EDT Spouse, Ry, calling in and left message on Nurse's Line that patient is experiencing a lot of swelling in his neck. Spouse asking is this normal? Recommendations? Keila Lucas LPN January 04, 2024 11:54 AM documented in this encounterTrihealth Mcc[facility]06-20-2024 Telephone encounter Note * Telephone Encounter - Elena Watkins APRN.LIZET - 01/05/2024 4:00 PM EDT Images from the original note were not included. Photo received & reviewed. * The above image(s) of the NECK was/were taken on 01/05/24 by the patient, for use in clinical documentation purposes only using an encrypted, [facility] approved device. All efforts were made to [...] suspiciousactivity was identified. 01/05/2024 by Elena Watkins APRN.THRESHING MACHINE OPERATOR Thanks, Elena Watkins APRN.THRESHING MACHINE OPERATOR [facility]06-20-2024 Telephone encounter Note* Telephone Encounter - Keila Lucas LPN - 01/05/2024 3:24 PM EDT This [...] the last few days compared to the "squishiness" of skin/tissue. This Nurse provided [facility] phone number to send a picture. Patient asking if Tramadol can be refilled since he is still having pain? Pharmacy: [facility] [place] Lucas LPN January 05, 2024 3:29 PM [facility]06-19-2024 Telephone encounter Note* Telephone Encounter - Keila Lucas LPN - 01/04/2024 4:15 PM EDT Attempted to contact patient however no answer. This Nurse left a voice message requesting a returncall, providing our phone number. Keila Lucas LPN January 04, 2024 4:16 PM [facility]06-19-2024 Instructions* Patient Instructions* Timothy Walker MD - [...] healthcare provider's instructions for treatment. Developed by [employer]. Published by [employer]. Copyright 2014 [employer] and/or one of its subsidiaries. All rights reserved. documented in this encounterTrihealth Mccull[facility]06-19-2024 Nurse Note* Urvashi Gan MA - 01/04/2024 2:57 PM EDT Patient has no cardiac complaints today. [facility]06-19-[facility] Nurse Note* Urvashi Gan MA - 01/04/2024 2:57 PM EDT Patient has no cardiac complaints today. documented in this encounterTrihealth Mccull[facility]06-19-2024 NoteHNO ID: [id number] Author: TIMOTHY WALKER MD Service: ? Author Type: Physician Type: Progress Notes Filed: 01/04/2024 16:26 Note Text: PRIMARY CARE PHYSICIAN: Federico Vigil [address] [place] [address] Patient Care Team: Federico Vigil MD as PCP - General (Family Medicine) Provider, MD Agustin as Food And Drug Inspector CHIEF COMPLAINT: Paroxysmal atrial fibrillation HISTORY OF PRESENT ILLNESS: Mr. Kay is a 78 year old male who [...] cause unspecified Arthritis Atherosclerotic heart disease of [place] coronary artery without angina pectoris Atrial fibrillation [...] ACETBLR/PROX FEM PROSTC AGRFT/ALGRFT 04/2012 Dr. Wood> [facility]. ARTHRP KNE CONDYLEANDPLATU MEDIALANDLAT COMPARTMENTS Right COLONOSCOPY [...] HISTORY OF N/A 12/20/2022 EPS with Ablation, [facility] TONSILLECTOMY HX TONSILLECTOMY PRIMARY/SECONDARY Tonsillectomy and adnoids SOCIAL HISTORY Social History Tobacco Use Smokin (more content not included)...[facility] History of Present illness Narrative* Timothy Walker MD - 01/04/2024 2:56 PM EDT PRIMARY CARE PHYSICIAN: Federico Vigil [address] [place] [address] Patient Care Team: Federico Vigil MD as PCP - General (Family Medicine) Provider, MD Agustin as Food And Drug Inspector CHIEF COMPLAINT: Paroxysmal atrial fibrillation HISTORY OF PRESENT ILLNESS: Mr. Kay is a 78 year old male who [...] cause unspecified Arthritis Atherosclerotic heart disease of [place] coronary artery without angina pectoris Atrial fibrillation [...] ACETBLR/PROX FEM PROSTC AGRFT/ALGRFT 04/2012 Dr. Wood> [facility] ARTHRP KNE CONDYLE&PLATU MEDIAL&LAT COMPARTMENTS Right [...] HISTORY OF N/A 12/20/2022 EPS with Ablation, [facility] TONSILLECTOMY HX TONSILLECTOMY PRIMARY/SECONDARY <AGE 12 [...] EXAMINATION: BP 132/59 Pulse 68 Ht 5' 10" (1.78m) Wt 172 lb (78.0kg) SpO2 98% [...] the prior echocardiographic exam performed on 08/31/2022 ([place]). Mild improvement in the LV systolic function, [...] with more than 50% of the total watv-oq-loww time of the visit in counseling / [...] 1 History of vascular disease IMPRESSION: Mr. Kay is a 78 year old male with [...] -He will follow-up with his regular general custom home installer in [place], Dr. Vernon and see EP as needed if future arrhythmia issues arise. No follow-ups on file. Timothy Walker MD documented in this encounterTrihealth Mcc[facility]06-19-2024 Telephone encounter Note * Telephone Encounter - [...] to monitor for now. Elena Watkins APRN.CNP [facility]06-19-2024 Telephone encounter Note* Telephone Encounter - Keila Lucas LPN - 01/04/2024 11:53 AM EDT Spouse, Ry, calling in and left message on Nurse's Line that patient is experiencing a lot of swelling in his neck. Spouse asking is this normal? Recommendations? Keila Lucas LPN January 04, 2024 11:54 AM [facility]06-18-2024 Telephone encounter Note* Telephone Encounter - Agustin - 01/03/2024 12:12 AM EDT Record ID: [id number] Patient name: Shelton Kay Date: January 02, 2024 - 07:12 Administered [...] enter your date of in MM/DD/YYYY format:(e.g., "08/05/1969" for Aug 05, 1969) -> 1945 Thank [...] given orders to obtain medical equipment? ->No [facility]06-18-2024 Miscellaneous Notes* Telephone Encounter - Agustin - 01/03/2024 12:12 AM EDT Record ID: [id number] Patient name: Shelton Kay Date: January 02, 2024 - 07:12 Administered [...] enter your date of in MM/DD/YYYY format:(e.g., "08/05/1969" for Aug 05, 1969) -> 1945 Thank [...] obtain medical equipment? ->No documented in this encounterTrihealth Mcc[facility]06-12-2024 Telephone encounter Note * Telephone Encounter - Agustin - 12/28/2023 7:37 PM EDT Record ID: [id number] Patient name: Shelton Kay Date: December 28, 2023 - 02:37 Administered [...] enter your date of in MM/DD/YYYY format:(e.g., "08/05/1969" for Aug 05, 1969) -> 1945 Thank [...] medications you should be on? -> No [facility]06-12-2024 Miscellaneous Notes* Telephone Encounter - Agustin - 12/28/2023 7:37 PM EDT Record ID: [id number] Patient name: Shelton Kay Date: December 28, 2023 - 02:37 Administered [...] enter your date of in MM/DD/YYYY format:(e.g., "08/05/1969" for Aug 05, 1969) -> 1945 Thank [...] be on? -> No documented in this encounterTrihealth Mccull[facility]06-11-2024 NoteHNO ID: [id number] Author: ?, ?, ? Service: Pharmacy Author Type: Mcat Instructor Type: Plan of Care Filed: 12/27/2023 12:33 Note Text: PHARMACY MEDICATION REVIEW Patient Name: Shelton Kay : 1945 The following medications were updated within the PRODUCT DELIVERY SPECIALIST medication list: Medications ADDED to PRODUCT DELIVERY SPECIALIST medication list Medications CHANGED on PRODUCT DELIVERY SPECIALIST medication list Medications REMOVED from PRODUCT DELIVERY SPECIALIST medication list triamcinolone acetonide (KENALOG) 0.1 % cream Adjust Sig - Block E-Cancel Additional comments: Verified medication information with e-scripts/dispense report and chart review. Confirmed medications with patient. Patient stated no longer taking Kenalog cream - remove from med list. Required follow up actions for nursing: None The below information represents the best possible medication history: Yes Medication history completed by: Mcat Instructor: Augusta Mejia (Cementer) Source of history: Patient: Reliability of source: Appears reliable, clearly identified: Medication name, Medication dose, Medication route, and Medication frequency, Pharmacy records: e-scripts/dispense report, and [facility] records Medication nonadherence identified: No barriers noted Reconciliation completed: No, pharmacist not yet reviewed Patient interested in Bedside Delivery Services or using CC OP Pharmacy at discharge? Unable to assess Preferred outpatient pharmacy: [id number] [place] [address] - [phone] - [phone] [facility] [phone] Allergies: Spironolactone Other: See Comments Comment:Dizziness and [...] once daily. Facility-Administered Medications: None Augusta Mejia (Cementer)[id number] 12/27/2023[facility]06-11-2024 NoteHNO ID: [id number] Author: PHI ARREGUIN MD Service: Vascular Surgery Author Type: Physician Type: Progress Notes Filed: 12/27/2023 12:03 Note Text: Pt seen and examined. Doing well post op. Incision c/d/I. Neuro in tact. Tolerating po. Urinating. BP wnl. No issues. Pt has yet to walk in cvicu. D/c instructions discussed with pt and . Pt okay for d/c after he ambulates successfully. Phi Arreguin, [facility]06-11-2024 NoteHNO ID: [id number] Author: EUGENIO BARNETT PA-C Service: Vascular Surgery Author Type: Physician Eye Surgeon Type: Progress Notes Filed: 12/27/2023 09:15 Note [...] Patient seen and examined. No events overnight. case monitor with some PVCs. Denies N/V/CP/SOB. Pain well controlled on APAP. Has not walked yet. + flatus Diet: DIET REGULAR Objective OBJECTIVE: Vitals: Temp (24hrs), Av.3 ?C (97.3 ?F), Min:36.1 ?C (97 ?F), Max:36.5 ?C (97.7 ?F) BP 121/67 Pulse 71 Temp 36.1 ?C (97 ?F) (Temporal) Resp 21 Ht 177.8 cm (5' 10") Wt 78.1 kg (172 lb 2.9 oz) SpO2 98% BMI 24.71 kg/m? O2 Therapy: Room Air IANDO: Date 12/26/23 07 - 12/27/23 0659 12/27/23 07 - 12/28/23 0659 Shift 5582-5916 5510-1044 9530-5233 24 Hour Total 0025-8560 1468-5803 4242-1148 24 Hour Total INTAKE PO 240 650 [...] -Perioperative ABX completed -Will discuss with Dr. Arreguin on when to restart OAC (eliquis) -Remove arterial line -Mobilize -Voided -Tolerating PO intake -Possible DC later today SIGNATURE: Eugenio Barnett PA-C PATIENT NAME: Shelton Kay DATE: December 27, 2023 TIME: 8:01 AM Vascular Surgery Service Pager: For questions or concerns Mon-Fri 6a-5p please page [phone]. After 5pm and on Weekends and Holidays, please page [phone] if in ICU or [phone] if on RNF.[facility]06-10-2024 NoteHNO ID: [id number] Author: DANNY PEREZ APRN.ARCHITECT INTERNSHIP Service: Anesthesiology Author Type: Nurse Bioinformatics Associate Type: Anesthesia Procedure Notes Filed: 12/26/2023 12:27 Note Text: ANESTHESIOLOGY PROCEDURE NOTE A-Line General Information Procedure Start Time/Medication Administration: 12/26/2023 8:45 AM Procedure End Time: 12/26/2023 8:50 AM Patient location during procedure: OR Timeout Performed Pre-procedure: timeout performed Indications: continuous blood pressure monitoring and blood sampling needed Staffing Anesthesiologist: Kiera Diaz MD ARCHITECT INTERNSHIP: Danny Perez APRN.ARCHITECT INTERNSHIP SRNA: Martin Loja SRNA Performed by: anesthesiologist [...] SIGNATURE: Kiera Diaz MD PATIENT NAME: Shelton Kay DATE: December 26, 2023 TIME: 10:44 AM CSN: [id number]06-10-2024 NoteHNO ID: [id number] Author: DANNY PEREZ APRN.ARCHITECT INTERNSHIP Service: Anesthesiology Author Type: Nurse Bioinformatics Associate Type: Anesthesia Procedure Notes Filed: 12/26/2023 12:26 Note Text: ANESTHESIOLOGY PROCEDURE NOTE Airway General Information Procedure Start Time/Medication Administration: 12/26/2023 8:48 AM Procedure End Time: 12/26/2023 8:48 AM Patient location during procedure: OR Timeout Performed Pre-procedure: timeout performed Consent Obtained: Yes Patient identity confirmed: arm band Staffing Anesthesiologist: Kiera Diaz MD ARCHITECT INTERNSHIP: Danny Perez APRN.ARCHITECT INTERNSHIP SRNA: Martin Loja SRNA Performed by: ARCHITECT INTERNSHIP Indications and Patient Condition Indications for airway [...] no Airway not difficult SIGNATURE: Danny Perez APRN.CRNA PATIENT NAME: Shelton Kay DATE: December 26, 2023 TIME: 9:32 AM CSN: [id number]06-07-2024 Telephone encounter Note* Telephone Encounter - Federico Vigil MD - 12/23/2023 11:10 AM EDT OK to refill as ordered Federico Vigil MD [facility]06-07-2024 Miscellaneous Notes* Telephone Encounter - Federico Vigil MD - 12/23/2023 11:10 AM EDT OK to refill as ordered Federico Viigl MD * Telephone Encounter - Luma Edmonds [...] 1 tablet by mouth once daily. Luma Combs December 23, 2023 8:30 AM documented in this encounterTrihealth Mcc[facility]06-07-2024 Telephone encounter Note * Telephone Encounter - [...] 1 tablet by mouth once daily. Luma Combs December 23, 2023 8:30 AM [facility]06-04-2024 History and physical note* Heidy Bernstein APRN.CNP - 12/20/2023 10:40 AM EDT HISTORY AND PHYSICAL EXAMINATION SERVICE DATE: 12/20/2023 SERVICE TIME: 11:00 AM PRIMARY CARE PHYSICIAN: Federico Vigil MD Assessment Patient has the following medical conditions which may affect judy-operative course: Carotid stenosis, asymptomatic, bilateral Surgery scheduled with Dr. Arreguin on 12/26/2023 Preop examination Patient has the following medical conditions which may affect judy-operative course addressed in assessment and plan today. Paroxysmal atrial fibrillation (HCC) Ablation 12/2022 Rate controlled with carvedilol Pt taking Eliquis I instructed patient to get preop instructions from surgeon and custom home installer. Managed by Dr. Walker, last OV 06/22/2024 Mixed hyperlipidemia Statin, continue as prescribed Coronary artery disease involving [place] coronary artery of [place] heart with angina pectoris (HCC) S/P PCI to OM Managed by Dr. Vernon, last OV 05/19/2024 On Carvedilol, statin and ASA Cardiomyopathy, unspecified type ([facility]) ECHO 03/29/2023 CONCLUSIONS: - Exam [...] take as directed. REASON FOR VISIT: Shelton Kay is a 78 year old male who [...] Atrial Flutter Dyspnea Coronary Artery Disease Involving [place] Coronary Artery of [place] Heart With Angina Pectoris (Hcc) Inflammatory Polyarthropathy [...] cause unspecified Arthritis Atherosclerotic heart disease of [place] coronary artery without angina pectoris Atrial fibrillation [...] ACETBLR/PROX FEM PROSTC AGRFT/ALGRFT 04/2012 Dr. Wood> [facility] ARTHRP KNE CONDYLE&PLATU MEDIAL&LAT COMPARTMENTS Right [...] HISTORY OF N/A 12/20/2022 EPS with Ablation, [facility] TONSILLECTOMY HX TONSILLECTOMY PRIMARY/SECONDARY Tonsillectomy and [...] 61 Temp 97.9 Resp 16 Ht 5' 10" (1.78m) Wt 170 lb (77.1kg) SpO2 99% [...] 8760 hour(s)). Recent Results (from the past 27288 hour(s)) ECHO Collection Time: 03/29/23 9:34 AM [...] PT, BMP, CBC ordered per surgeon in [facility] Assessment/Plan Diagnosis: Bilateral extracranial carotid artery stenosis [I65.23] PLAN Planned Procedure: Procedure(s): ENDARTERECTOMY CAROTID ADULT (Right) Instructions Given to Patient: Instructions located in the after visit summary. Patient given verbal and written preop instructions and voices comprehension and compliance. I spent a total of 50 minutes on the date of the service which included preparing to see the patient, souq-be-rxly patient care, completing clinical documentation, obtaining and/or reviewing separately obtained history, performing a medically appropriate examination, counseling and educating the pat ient/family/caregiver, and ordering medications, tests, or procedures. SIGNATURE: Heidy Bernstein APRN.CNP PATIENT NAME: Sheltno Kay DATE: December 20, 2023 TIME: 11:00 AM PAGER/CONTACT #: [facility]06-04-2024 History and physical note* Heidy Bernstein APRN.CNP - 12/20/2023 10:40 AM EDT HISTORY AND PHYSICAL EXAMINATION SERVICE DATE: 12/20/2023 SERVICE TIME: 11:00 AM PRIMARY CARE PHYSICIAN: Federico Vigil MD Assessment Patient has the following medical conditions which may affect judy-operative course: Carotid stenosis, asymptomatic, bilateral Surgery scheduled with Dr. Arreguin on 12/26/2023 Preop examination Patient has the following medical conditions which may affect judy-operative course addressed in assessment and plan today. Paroxysmal atrial fibrillation (HCC) Ablation 12/2022 Rate controlled with carvedilol Pt taking Eliquis I instructed patient to get preop instructions from surgeon and custom home installer. Managed by Dr. Walker, last OV 06/22/2024 Mixed hyperlipidemia Statin, continue as prescribed Coronary artery disease involving [place] coronary artery of [place] heart with angina pectoris (HCC) S/P PCI [...] take as directed. REASON FOR VISIT: Shelton Kay is a 78 year old male who [...] Atrial Flutter Dyspnea Coronary Artery Disease Involving [place] Coronary Artery of [place] Heart With Angina Pectoris (Hcc) Inflammatory Polyarthropathy [...] cause unspecified Arthritis Atherosclerotic heart disease of [place] coronary artery without angina pectoris Atrial fibrillation [...] ACETBLR/PROX FEM PROSTC AGRFT/ALGRFT 04/2012 Dr. Wood> [facility]. ARTHRP KNE CONDYLE&PLATU MEDIAL&LAT COMPARTMENTS Right COLONOSCOPY [...] HISTORY OF N/A 12/20/2022 EPS with Ablation, [facility] TONSILLECTOMY HX TONSILLECTOMY PRIMARY/SECONDARY <AGE 12 [...] daily before breakfast. Take on empty stomach, 2 hr before meal. Taking Yes carvedilol (COREG) [...] 61 Temp 97.9 Resp 16 Ht 5' 10" (1.78m) Wt 170 lb (77.1kg) SpO2 99% [...] 8760 hour(s)). Recent Results (from the past 48969 hour(s)) ECHO Collection Time: 03/29/23 9:34 AM [...] which included preparing to see the patient, ootz-qd-vqrd patient care, completing clinical documentation, obtaining and/or reviewing separately obtained history, performing a medically appropriate examination, counseling and educating the pat ient/family/caregiver, and ordering medications, tests, or procedures. SIGNATURE: Heidy Bernstein APRN.CNP PATIENT NAME: Shelton Kay DATE: December 20, 2023 TIME: 11:00 AM PAGER/CONTACT #: documented in this encounterTrihealth M[facility]06[facility] Instructions* Patient Instructions* Heidy Bernstein APRN.CNP - 12/19/2023 10:55 AM EDT PATIENT PREOPERATIVE INSTRUCTIONS Dr. Arreguin has scheduled you for your procedure at this surgery center: [facility]: [phone], [address], [place] [address] Please read below carefully for your personalized [...] older. - YOU MUST HAVE A RESPONSIBLE SCRAP METAL COLLECTOR TO TAKE YOU HOME. A FOREIGN EXCHANGE STUDENT COORDINATOR, CAB OR UBER SCRAP METAL COLLECTOR CANNOT BE MADE A RESPONSIBLE SCRAP METAL COLLECTOR. - You cannot stay in a hotel [...] the surgery center above. Visitors to any [facility] facility: An individual who is sick should [...] Advance Directive, please fax a copy to [phone] or email to for it to be [...] your chart that day. documented in this encounterTrihealth M[facility]05-24-2024 Telephone encounter Note * Telephone Encounter - Elena Watkins APRN.CNP - 12/09/2023 9:33 AM EDT Orders signed. Thank you, Elena Watkins APRN.CNP [facility] Work Phone: 1(949) 174-463305-24-2024 Miscellaneous Notes* Telephone Encounter - Elena Watkins APRN.CNP - 12/09/2023 9:33 AM EDT Orders signed. Thank you, Elena Watkins APRN.THRESHING MACHINE OPERATOR documented in this encounterTrihealth Mcc[facility]05-23-2024 NoteHNO ID: [id number] Author: PHI ARREGUIN MD Service: ? Author Type: Physician Type: Progress Notes Filed: 12/08/2023 16:53 Note Text: Shelton Kay is a 78 year old male presents [...] CEA. I offered to send him to [facility] to discuss potential for TFCAS if he [...] not limited to bleeding, infection, re-stenosis, hematoma, AL, and . The pt understands that delay in treatment once it is indicated could result in stroke. PATIENT'S CURRENT TREATMENT: Aspirin, eliquis Statin: Yes Patient does not have a history of a CVA. Patient has not had previous carotid surgery RISK FACTORS: HISTORIES: PAST MEDICAL HISTORY Diagnosis Date Allergic rhinitis, cause unspecified Arthritis Atherosclerotic heart disease of [place] coronary artery without angina pectoris Atrial fibrillation [...] SURGICAL HISTORY Procedure [place] (more content not included)...[facility] 12-08-2023 History of Present illness Narrative* Phi Arreguin MD - 12/08/2023 3:34 PM EDT Shelton Kay is a 78 year old male presents [...] declined referral. We also discussed CEA and jose alfredo mullen trying to do an extended endarterectomy to [...] not limited to bleeding, infection, re-stenosis, hematoma, AL, and . The pt understands that delay in treatment once it is indicated could result in stroke. PATIENT'S CURRENT TREATMENT: Aspirin, eliquis Statin: Yes Patient does not have a history of a CVA. Patient has not had previous carotid surgery RISK FACTORS: HISTORIES: PAST MEDICAL HISTORY Diagnosis Date Allergic rhinitis, cause unspecified Arthritis Atherosclerotic heart disease of [place] coronary artery without angina pectoris Atrial fibrillation [...] ACETBLR/PROX FEM PROSTC AGRFT/ALGRFT 04/2012 Dr. Wood> [facility]. ARTHRP KNE CONDYLE&PLATU MEDIAL&LAT COMPARTMENTS Right COLONOSCOPY [...] HISTORY OF N/A 12/20/2022 EPS with Ablation, [facility] TONSILLECTOMY HX TONSILLECTOMY PRIMARY/SECONDARY <AGE 12 [...] extended incision for CCA Consent signed Continue asa, hold eliquis before surgery Phi Arreguin MD I spent 25 minutes in the visit, with more than 50% of the total yptm-zb-nvqa time of the visit in counseling / coordination of care. documented in this encounterTrihealth M[facility]05-10-[facility]24 Telephone encounter Note * Telephone Encounter - Keila Lucas LPN - 11/25/2023 3:51 PM EDT This Nurse spoke to Dr. Arreguin in regard to prior Telephone Encounter. Dr. Arreguin states that these test do show different things however if co-pay for CT scan on Tuesday is high it would be up to the patient to not get it. Patient has an upcoming appointment to discuss CT scan results. This Nurse returned call to patient and advised per above. Patient states he will get test scheduled on 11/28/2023. Keila Lucas LPN November 25, 2023 3:53 PM [facility]05-10-2024 Miscellaneous Notes* Telephone Encounter - Keila Lucas LPN - 11/25/2023 3:51 PM EDT This Nurse spoke to Dr. Arreguin in regard to prior Telephone Encounter. Dr. Arreguin states that these test do show different things however if co-pay for CT scan on Tuesday is high it would be up to the patient to not get it. Patient has an upcoming appointment to discuss CT scan results. This Nurse returned call to patient and advised per above. Patient states he will get test scheduled on 11/28/2023. Keila Lucas LPN November 25, 2023 3:53 PM * Telephone Encounter - Keila Lucas LPN - 11/25/2023 12:00 PM EDT Spouse, [...] help patient they will do it. Keila Lucas LPN November 25, 2023 12:02 PM documented in this encounterTrihealth Mcc[facility]05-10-2024 Telephone encounter Note * Telephone Encounter - Keila Lucas LPN - 11/25/2023 12:00 PM EDT Spouse, [...] help patient they will do it. Keila Lucas LPN November 25, 2023 12:02 PM [facility]05-09-2024 History of Present illness Narrative* Meme Mcgovern, CT - 11/24/2023 10:00 AM EDT Radiology [...] PATIENT PRESENTS WITH AN IMPLANTABLE OR ATTACHED CLOTHES DESIGNER: No ALLERGIES: Reviewed and unchanged CONTRAST ALLERGY: [...] Completed: CTA Brain and CTA Neck SIGNATURE: ALVIN Sherman PATIENT NAME: Shelton Kay DATE: November 24, 2023 TIME: 11:00 AM documented in this encounterTrihealth Mccull[facility]05-02-2024 NoteHNO ID: [id number] Author: PHI ARREGUIN MD Service: ? Author Type: Physician Type: Progress Notes Filed: 11/25/2023 15:45 Note Text: Carotid stenosisShelton Kay is a 78 year old male presents [...] plaques in his eye. Pt is prior W pt who was seen by me 02/2022 [...] cause unspecified Arthritis Atherosclerotic heart disease of [place] coronary artery without angina pectoris Atrial fibrillation [...] ACETBLR/PROX FEM PROSTC AGRFT/ALGRFT 04/2012 Dr. Wood> [facility] ARTHRP KNE CONDYLEANDPLATU MEDIALANDLAT COMPARTMENTS Right [...] HISTORY OF N/A 12/20/2022 EPS with Ablation, [facility] TONSILLECTOMY HX TONSILLECTOMY PRIMARY/SECONDARY Tonsillectomy and [...] by mouth once daily. (more content not included)...[facility]05-02-2024 History of Present illness Narrative* Phi Arreguin MD - 11/17/2023 4:18 PM EDT Carotid stenosisShelton Kay is a 78 year old male presents [...] cause unspecified Arthritis Atherosclerotic heart disease of [place] coronary artery without angina pectoris Atrial fibrillation [...] ACETBLR/PROX FEM PROSTC AGRFT/ALGRFT 04/2012 Dr. Wood> [facility]. ARTHRP KNE CONDYLE&PLATU MEDIAL&LAT COMPARTMENTS Right COLONOSCOPY [...] HISTORY OF N/A 12/20/2022 EPS with Ablation, [facility] TONSILLECTOMY HX TONSILLECTOMY PRIMARY/SECONDARY <AGE 12 [...] with question or changes in symptoms Phi Arreguin MD I spent 25 minutes in the visit, with more than 50% of the total vrco-yb-zfnq time of the visit in counseling / coordination of care. documented in this encounterTrihealth Mcc[facility]04-26-2024 Telephone encounter Note * Telephone Encounter - Elena Watkins APRN.CNP - 11/11/2023 3:32 PM EDT Reviewed pt's CTA report - unfortunately CTA neck "non-diagnostic". I called and spoke with pt & [...] week to discuss recent symptoms with Dr. Arreguin (can even review scan, even though report [...] with PCP regarding recent labs. Elena Watkins APRN.THRESHING MACHINE OPERATOR [facility]04-26-2024 Miscellaneous Notes* Telephone Encounter - Elena Watkins APRN.CNP - 11/11/2023 3:32 PM EDT Reviewed pt's CTA report - unfortunately CTA neck "non-diagnostic". I called and spoke with pt & [...] week to discuss recent symptoms with Dr. Arreguin (can even review scan, even though report [...] PCP regarding recent labs. Elena Watkins APRN.CNP documented in this encounterTrihealth Mcc[facility]04-26-[facility]24 History of Present illness Narrative* Karie Galeas RT(R) - 11/11/2023 1:00 PM EDT Radiology Service [...] PATIENT PRESENTS WITH AN IMPLANTABLE OR ATTACHED CLOTHES DESIGNER: No ALLERGIES: Reviewed and unchanged CONTRAST ALLERGY: [...] CTA Brain and CTA Neck SIGNATURE: RT Smith (R) PATIENT NAME: Shelton Kay DATE: November 11, 2023 TIME: 1:42 PM documented in this encounterTrihealth Mccull[facility]04-26-2024 NoteHNO ID: [id number] Author: KARIE GALEAS RT (R) Service: Radiology Author Type: Technologist Type: Progress [...] PATIENT PRESENTS WITH AN IMPLANTABLE OR ATTACHED CLOTHES DESIGNER: No ALLERGIES: Reviewed and unchanged CONTRAST ALLERGY: [...] CTA Brain and CTA Neck SIGNATURE: RT Sarah(R) PATIENT NAME: Shelton Kay DATE: November 11, 2023 TIME: 1:42 [facility]04-26-2024 Telephone encounter Note* Telephone Encounter - Elena Watkins APRN.THRESHING MACHINE OPERATOR - 11/11/2023 9:39 AM EDT I spoke [...] with ortho not associated with [facility] in [place]) scheduled on Tuesday. Pt believes MRI should [...] proceed with scheduling CTA head/neck. Elena Watkins APRN.CNP [facility]04-26-2024 Miscellaneous Notes* Telephone Encounter - Elena Watkins [...] proceed with scheduling CTA head/neck. Elena Watkins APRN.CNP * Telephone Encounter - Keila Lucas LPN - 11/11/2023 9:05 AM EDT This [...] number. As this Nurse was reporting to CONTROL OPERATOR at the same time spouse, Ry, returned call and CONTROL OPERATOR spoke to spouse. Keila Lucas LPN November 11, 2023 9:07 AM * [...] that's what he'd prefer. Thanks, Elena Watkins APRN.CNP * Telephone Encounter - Keila Lucas LPN - 11/10/2023 4:53 PM EDT Spouse, Courtney, calling in and left message on Nurse's Line that patient recently has had symptoms of vision loss. PCP is Ordering blood work and ultrasound. Spouse is asking from vascular standpoint, how do they proceed? Keila Lucas LPN November 10, 2023 4:55 PM documented in this encounterTrihealth Mcc[facility]04-26-2024 Telephone encounter Note * Telephone Encounter - Keila Lucas LPN - 11/11/2023 9:05 AM EDT This [...] number. As this Nurse was reporting to CONTROL OPERATOR at the same time spouse Ry, returned call and CONTROL OPERATOR spoke to spouse. Keila Lucas LPN November 11, 2023 9:07 AM [facility]04-26-2024 Telephone encounter Note* Telephone Encounter - Elena Watkins APRN.LIZET - [...] that's what he'd prefer. Thanks, Elena Watkins APRN.THRESHING MACHINE OPERATOR [facility]04-25-2024 Telephone encounter Note* Telephone Encounter - Annie Garcias OCCA - 11/10/2023 4:58 PM EDT TC to patients who verbalized understanding. She states she called [facility] but had to leave a message. She is going to try again tomorrow and if necessary, go to office. She will call back with an update once she has spoken to [facility]. GARCIA Felix [facility]04-25-2024 Miscellaneous Notes* Telephone Encounter - Annie Gacrias OCCA - 11/10/2023 4:58 PM EDT TC to patients who verbalized understanding. She states she called [facility] but had to leave a message. She is going to try again tomorrow and if necessary, go to office. She will call back with an update once she has spoken to [facility]. GARCIA Felix * Telephone Encounter - Federico Vigil MD - 11/10/2023 4:51 PM EDT With that additional history I would agree with getting in touch with [facility] and let them know what happened and see what they recommend. He does not need the carotid test repeated here if hechecks with them. Federico Vigil MD * Telephone Encounter - Gretel Morelos RN - 11/10/2023 4:43 PM EDT Pts called in and reports Pt already sees [facility] and he has had an US [...] isblocked. She is also going to call [facility]. Please call and advise. documented in this encounterTrihealth M[facility]04-25-[facility]24 Telephone encounter Note * Telephone Encounter - Keila Lucas LPN - 11/10/2023 4:53 PM EDT Spouse, Courtney, calling in and left message on Nurse's Line that patient recently has had symptoms of vision loss. PCP is Ordering blood work and ultrasound. Spouse is asking from vascular standpoint, how do they proceed? Keila Lucas LPN November 10, 2023 4:55 PM [facility]04-25-2024 Telephone encounter Note* Telephone Encounter - Federico Vigil MD - 11/10/2023 4:51 PM EDT With that additional history I would agree with getting in touch with [facility] and let them know what happened and see what they recommend. He does not need the carotid test repeated here if hechecks with them. Federico Vigil MD [facility]04-25-2024 Telephone encounter Note* Telephone Encounter - Gretel Morelos RN - 11/10/2023 4:43 PM EDT Pts called in and reports Pt already sees [facility] and he has had an US [...] isblocked. She is also going to call [facility]. Please call and advise. [facility]04-25-2024 Telephone encounter Note* Telephone Encounter - Yasmeen Oliveros MA - 11/10/2023 3:02 PM EDT Call to pt and notified him of message below, pt driving at this time and not able to be transferred to scheduling. Will call back in to schedule an appt. Wanted to make you aware he will be having an MRI done on Tuesday as well. Yasmeen Oliveros MA [facility]04-25-2024 Miscellaneous Notes* Telephone Encounter - Yasmeen Oliveros [...] 11/09/2023 2:52 PM EDT Elena with , [facility] called to get orders for pt to [...] tomorrow Elif Godoy LPN documented in this encounterTrihealth M[facility]04-25-2024 Telephone encounter Note * Telephone Encounter - Federico Vigil MD - 11/10/2023 2:48 PM EDT Doppler ordered Federico Vigil MD [facility]04-25-2024 Telephone encounter Note* Telephone Encounter - Elif Godoy LPN - 11/10/2023 9:39 AM EDT Pt called in and will get lab work done. Pt also needs to have a carotid doppler done. Please call pt when this has been ordered. Elif Godoy LPN [facility]04-24-2024 Telephone encounter Note* Telephone Encounter - Elif Godoy LPN - 11/09/2023 2:52 PM EDT Elena with , [facility] called to get orders for pt to [...] and will return tomorrow Elif Godoy LPN [facility]04-12-2024 Miscellaneous Notes* Telephone Encounter - Guadalupe Sofia [...] 6 mo with labs documented in this encounterTrihealth Mccullough-[facility]04-12-2024 Discharge summary Author Rich Dunham [facility] October 28, 2023 12:44pm Note Date/Time October 28, 2023 12: 36pm [facility] Physical Therapy [facility] [address] [place] [address] / REHABILITATION SERVICES DISCHARGE SUMMARY MR#: [id number] Acct: [id number] Name: SHELTON KAY Rep #: [id number] : 1945 78 From: Cert. FLASH MoiseT, OCS Referring Dr.: Dr. Hang Pool MD Status: REG R Insurance: [facility] [employer]URANCE Patient Information Patient Information: SHELTON KAY was seen in my office for initial [...] appropriate by the physician. Thank you! Rich Dunham, PT, Cert MDT, OCS Balance/Gait/Functional tests Balance/Special Test Scores Oswestry Neck Score: 18 <Electronically signed by Rich Dunham PT, Cert. MDT, OCS> 10/28/23 1244 CC: Dr. Hang Pool MD; Dr. Federico Vigil MD ~ JLA Signed [facility] Work Phone: [phone]) 176-516004-11-2024 History of Present illness Narrative* David Lundberg - 10/27/2023 8:30 AM EDT Images from the original note were not included. Hematology Progress Note Shelton Kay 1945 Encounter date: 10/27/2023 Cancer Staging No matching staging information was found for the patient. 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 Presents today for evaulation of anemia. Recent [facility] labs from 08/15/23 demonstrated Hgb 10.1. He [...] to works out regularly. Active golf, bowling. [employer] Tuesday - Tuesday but recently feels he [...] stools or BRB. On plavix and eliquis. "Bad gout" in the last year. Started plaquenil about 6 months ago. Prednisone and lasix as needed. Multivitamin. No additional supplements or OTC meds. Does not take any NSAIDs. Tylenol as needed. Taking miralax and magnesium daily to prevent constipation. No known personal or family hx of blood disorders. Father, lung ca. Mother, kidney ca. [place] for 33 years, retired - no known chemical exposures. Interval Hx: Mr. Kay presents today for follow up and lab [...] cause unspecified Arthritis Atherosclerotic heart disease of [place] coronary artery without angina pectoris Atrial fibrillation [...] ACETBLR/PROX FEM PROSTC AGRFT/ALGRFT 04/2012 Dr. Wood> [facility] ARTHRP KNE CONDYLE&PLATU MEDIAL&LAT COMPARTMENTS Right [...] HISTORY OF N/A 12/20/2022 EPS with Ablation, [facility] TONSILLECTOMY HX TONSILLECTOMY PRIMARY/SECONDARY <AGE 12 [...] 07/31/2023, injury : Assessment and Plan: Mr. Kay is a pleasant 78 year old gentleman [...] acknowledged and agreeable with plan. David Lundberg APRN.THRESHING MACHINE OPERATOR I spent a total of 30 minutes on the date of the service which included preparing to see the patient, zdmy-bu-eqzo patient care, completing clinical documentation, and counseling [...] evaluation of this patient. documented in this encounterTrihealth Mcc[facility]04-11-2024 Nurse Note* Gina Malave LPN - 10/27/2023 8:16 AM EDT Est. Pt, discuss recent lab results, 2 month F/u Gina Malave LPN documented in this [facility]03-04-2024 Miscellaneous Notes* Telephone Encounter - Cass Smalls LISW - 09/19/2023 3:44 PM EST Pt noted on [facility] 1st time treatment report. Pt has a non-oncology regimen. No social work followup indicated. ROMEO Muro-S documented in this [facility]02-22-2024 History of Present illness Narrative* Amanda Weinberg RN - 09/08/2023 11:03 AM EST No reaction or hypersensitivity noted after transfusion. Pt verbalized " I feel good." documented in this [facility]02-16-2024 History of Present illness Narrative* Arun Lopez RT(R) - 09/02/2023 8:50 AM EST Radiology Service Progress Note PATIENT NAME: Shelton Kay DATE OF SERVICE: September 02, 2023 TIME: [...] PATIENT PRESENTS WITH AN IMPLANTABLE OR ATTACHED CLOTHES DESIGNER: No RADIOLOGY DEPARTMENT: General X-ray: Exam(s) Completed: Lower Extremity X- Ray(s): Knee, AP / LAT Left and Wt. Bearing with obliques PERIPHERAL IV DATA: Not applicable SIGNED BY: RT Eunice(R) September 02, 2023 8:54 AM documented in this encounterTrihealth Mccull[facility]02-16-2024 History of Present illness Narrative* Sumaya Alcazar APRN.THRESHING MACHINE OPERATOR - 09/02/2023 8:48 AM EST Images from the original note were not included. Subjective HPI HPI Shelton Kay is a 78 year old male who presents today for CC of left knee pain after stumbling last week. Has tried otc medication, ice for relief. Symptoms are worsened by rom/walking. Risk factors hx of gout. .Patient presents with: Knee Pain: left knee pain x 4 days PAST MEDICAL HISTORY Diagnosis Date Allergic rhinitis, cause unspecified Arthritis Atherosclerotic heart disease of [place] coronary artery without angina pectoris Atrial fibrillation [...] ACETBLR/PROX FEM PROSTC AGRFT/ALGRFT 04/2012 Dr. Wood> [facility] ARTHRP KNE CONDYLE&PLATU MEDIAL&LAT COMPARTMENTS Right [...] HISTORY OF N/A 12/20/2022 EPS with Ablation, [facility] TONSILLECTOMY HX TONSILLECTOMY PRIMARY/SECONDARY <AGE 12 [...] - PREDNISONE 10 MG TABLET Sumaya Alcazar APRN.THRESHING MACHINE OPERATOR documented in this encounterTrihealth M[facility]02-15-2024 History of Present illness Narrative* David Lundberg - 09/01/2023 9:30 AM EST Images from the original note were not included. Hematology Consult Note Shelton Kay 1945 Encounter date: 09/02/2023 Cancer Staging No matching staging information was found for the patient. 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 Presents today for evaulation of anemia. Recent [facility] labs from 08/15/23 demonstrated Hgb 10.1. He [...] to works out regularly. Active golf, bowling. [employer] Tuesday - Tuesday but recently feels he [...] stools or BRB. On plavix and eliquis. "Bad gout" in the last year. Started plaquenil about 6 months ago. Prednisone and lasix as needed. Multivitamin. No additional supplements or OTC meds. Does not take any NSAIDs. Tylenol as needed. Taking miralax and magnesium daily to prevent constipation. No known personal or family hx of blood disorders. Father, lung ca. Mother, kidney ca. [place] for 33 years, retired - no known chemical exposures. Interval Hx: Mr. Kay presents today with his spouse for follow [...] cause unspecified Arthritis Atherosclerotic heart disease of [place] coronary artery without angina pectoris Atrial fibrillation [...] ACETBLR/PROX FEM PROSTC AGRFT/ALGRFT 04/2012 Dr. Wood> [facility] ARTHRP KNE CONDYLE&PLATU MEDIAL&LAT COMPARTMENTS Right [...] HISTORY OF N/A 12/20/2022 EPS with Ablation, [facility] TONSILLECTOMY HX TONSILLECTOMY PRIMARY/SECONDARY <AGE 12 [...] 07/31/2023, injury : Assessment and Plan: Mr. Kay is a pleasant 78 year old gentleman [...] iron studies in 8 weeks. David Lundberg APRN.THRESHING MACHINE OPERATOR I spent >35 minutes in the visit, with more than 50% of the total koco-sf-domu time of the visitin counseling / coordination [...] evaluation of this patient. documented in this encounterTrihealth Mccull[facility]02-05-[facility]24 History of Present illness Narrative* David Lundberg - 08/22/2023 10:30 AM EST Images from the original note were not included. Hematology Consult Note Shelton Kay 1945 Encounter date: 08/22/2023 Cancer Staging No matching staging information was found for the patient. 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 Presents today for evaulation of anemia. Recent [facility] labs from 08/15/23 demonstrated Hgb 10.1. He [...] to works out regularly. Active golf, bowling. [employer] Tuesday - Tuesday but recently feels he [...] stools or BRB. On plavix and eliquis. "Bad gout" in the last year. Started plaquenil about 6 months ago. Prednisone and lasix as needed. Multivitamin. No additional supplements or OTC meds. Does not take any NSAIDs. Tylenol as needed. Taking miralax and magnesium daily to prevent constipation. No known personal or family hx of blood disorders. Father, lung ca. Mother, kidney ca. [place] for 33 years, retired - no known chemical exposures. PAST MEDICAL HISTORY Diagnosis Date Allergic rhinitis, cause unspecified Arthritis Atherosclerotic heart disease of [place] coronary artery without angina pectoris Atrial fibrillation [...] ACETBLR/PROX FEM PROSTC AGRFT/ALGRFT 04/2012 Dr. Wood> [facility] ARTHRP KNE CONDYLE&PLATU MEDIAL&LAT COMPARTMENTS Right [...] HISTORY OF N/A 12/20/2022 EPS with Ablation, [facility] TONSILLECTOMY HX TONSILLECTOMY PRIMARY/SECONDARY <AGE 12 [...] 62 Temp (Src) 97.1 (Temporal) Ht 5' 9.75" (1.77m) Wt 171 lb (77.6kg) PyH662% BMI 24.70 kg/(m^2). ECOG PS: 0 Pain [...] PRIOR: ARMANDO&SPEP in scanned docs from 10/2015 WN Colonscopy: 05/20/2023 4:46 PM - Radiology, Oru In Impression IMPRESSION: 1. Difficult exam due to patient's level of discomfort 2. Multiple diverticula but no evidence of diverticulitis 3. Sigmoid colon is extremely tortuous XR of hands from 07/31/2023, injury : Assessment and Plan: Mr. Kay is a pleasant 77 year old gentleman [...] 2 weeks to review labs David Lundberg APRN.THRESHING MACHINE OPERATOR I spent >60 minutes in the visit, with more than 50% of the total xteu-md-meya time of the visitin counseling / coordination [...] evaluation of this patient. documented in this encounterTrihealth Mccull[facility]02-01-2024 Miscellaneous Notes* Telephone Encounter - Barbara Sears - 08/18/2023 4:23 PM EST Please note consult to hematology * Telephone Encounter - Janneth Burkett Ma - 08/18/2023 4:21 PM EST Pt Ry notified and voiced understanding. Transferred to [facility] to set up Hematology appt. Janneth Burkett [...] advise. Josselin Hung LPN documented in this encounterTrihealth Mccull[facility]12-06-2023 Instructions* Patient Instructions* Timothy Walker MD - [...] healthcare provider's instructions for treatment. Developed by [employer]. Published by [employer]. Copyright 2014 [employer] and/or one of its subsidiaries. All rights reserved. documented in this encounterTrihealth Mccullough-[facility]12-06-2023 NoteHNO ID: [id number] Author: Timothy Walker MD Service: ? Author Type: Physician Type: Progress Notes Filed: 06/22/2023 4:17 PM Note Text: PRIMARY CARE PHYSICIAN: Federico Vigil [address] [place] [address] Patient Care Team: Federico Vigil MD as [...] per week at the wellness center in [place], under the supervision of an barrel handler. He checks his heart rhythm daily on the [employer], reports 2 episodes of atrial fibrillation which [...] cause unspecified Arthritis Atherosclerotic heart disease of [place] coronary artery without angina pectoris Atrial fibrillation [...] Laterality Date ARTHROPLASTY T (more content not included)...[facility] History of Present illness Narrative* Timothy Walker MD - 06/22/2023 2:56 PM EST PRIMARY CARE PHYSICIAN: Federico Vigil [address] [place] [address] Patient Care Team: Federico Vigil MD as [...] per week at the wellness center in [place], under the supervision of an barrel handler. He checks his heart rhythm daily on the [employer], reports 2 episodes of atrial fibrillation which [...] cause unspecified Arthritis Atherosclerotic heart disease of [place] coronary artery without angina pectoris Atrial fibrillation [...] ACETBLR/PROX FEM PROSTC AGRFT/ALGRFT 04/2012 Dr. Wood> [facility] ARTHRP KNE CONDYLE&PLATU MEDIAL&LAT COMPARTMENTS Right [...] HISTORY OF N/A 12/20/2022 EPS with Ablation, [facility] TONSILLECTOMY HX TONSILLECTOMY PRIMARY/SECONDARY <AGE 12 [...] EXAMINATION: BP 108/66 Pulse 72 Ht 5' 10.5" (1.79m) Wt 167 lb (75.8kg) SpO2 98% [...] with more than 50% of the total nwzd-ko-gzbf time of the visit in counseling / coordination of care. ASSESSMENT/PLAN: 1. Paroxysmal atrial fibrillation (HCC) - ICD9: 427.31, ICD10: I48.0 (primary diagnosis) - ECG B/O W INTERP (MED OFFICE) 2. Cardiomyopathy, unspecified type (HCC) - ICD9: 425.4, ICD10: I42.9 3. Coronary artery disease involving [place] coronary artery of [place] heart with angina pectoris (HCC) - ICD9: [...] visit with his PCP. -Continue Eliquis for [id number] score of 5, CHF/age/hypertension/vascular disease. No bleeding complications on Eliquis. -Continue lifestyle modifications including maintaining a healthy weight, regular exercise and limiting use of alcohol and/or caffeine. Return in about 6 months (around 12/22/2023) for Afib follow up. Timothy Walker MD documented in this encounterTrihealth Mccull[facility]12-06-2023 Nurse Note* Keiko Santos LPN - 06/22/2023 2:47 PM EST Patient denies any cardiac complaints or symptoms. Keiko Santos LPN documented in this encounterTrihealth Mccull[facility]11-27-2023 History of Present illness Narrative* Cabrera Mejia MD - 06/13/2023 1:11 PM EST Subjective: Patient is status post an EGD completed at [facility] on 05/20/2023. This was done secondaryto dysphagia. Biopsy was results of the duodenum were normal the stomach was normal as well distal esophageal and mid esophageal showed squamous epithelium with glycogenic acanthosis. Objective: Blood pressure 112/58, pulse 68, temperature (!) 35.8 C (96.5 F), height 179.1 cm (5' 10.5"), weight 78.5 kg (173 lb), SpO2 100 %. Abdomen is soft and nontender Assessment:Other dysphagia (primary encounter diagnosis) Pain with swallowing Plan: Told the patient that probably the neck step. But have to be some esophageal manometry possibly pH probe. She would like to see one of the bilingual counter sales retail in time and we will hopefully get this set up for her documented in this encounterTrihealth Mccull[facility]11-20-2023 Miscellaneous Notes* Telephone Encounter - Flaca Lewis [...] results to their office. documented in this encounterTrihealth Mccull[facility]11-09-2023 Miscellaneous Notes* Telephone Encounter - Magali Diaz LPN - 05/26/2023 9:06 AM EST Patient notified of results, verbalizes understanding of instructions. Magali Diaz LPN * Telephone Encounter - Ruth Miranda APRN.LIZET - 05/25/2023 6:47 PM EST Can [...] controlling cholesterol to prevent worsening stenosis. Ruth Miranda APRN.LIZET documented in this encounterTrihealth Mccull[facility]11-08-2023 Miscellaneous Notes* Telephone Encounter - Pascale Walker [...] advise. Pascale Walker LPN documented in this encounterTrihealth Mccull[facility]11-08-2023 History of Present illness Narrative* Malathi Aldana, [...] 2023 TIME: 4:16 PM documented in this encounterTrihealth Mccull[facility]11-07-2023 Miscellaneous Notes* Telephone Encounter - Federico Vigil [...] you. Elif Godoy LPN. documented in this encounterTrihealth Mccull[facility]11-06-2023 Miscellaneous Notes* Telephone Encounter - Ruth Miranda APRN.CNP - 05/23/2023 8:07 AM EST The following approved medication requests have been transmitted electronically. Requested Prescriptions Signed Prescriptions Disp Refills pantoprazole DR (PROTONIX) 20 mg tablet 90 tablet 3 Sig: Take 1 tablet by mouth daily before breakfast. Take on empty stomach, 1/2 hr before meal. Ruth Miranda APRN.LIZET * Telephone Encounter - Elizabeth Brennan LPN [...] patient. Elizabeth Brennan LPN documented in this encounterTrihealth Mccull[facility]11-03-2023 NoteHNO ID: [id number] Author: Luma Armstrong, KEANU Service: ? Author Type: Registered Nurse Type: Nursing Progress Note Filed: 05/20/2023 3:43 PM Note Text: Pt to xray for ferdinand hancock.[facility] [id number] NoteHNO ID: [id number] Author: Lexis Junior RT(R) Service: Radiology Author [...] PERIPHERAL IV DATA: Not applicable SIGNED BY: Lexis Junior, RT(R) May 20, 2023 4:31 PMMccullough-Hyde Memorial [id number] Miscellaneous Notes* Telephone Encounter - Rick Snell - 05/10/2023 12:35 PM EDT Contacted patient for pre-op GI phone call via either phone and or [employer]. Patient understands prep instructions, sent either Mychart and/or Mail. Understands where to report on the day of procedure. All questions answered and or sent to providers office for clarification. Patient understands [facility] arrival time could change and wait for their arrival time call from the facility the day before procedure.Patient understands must have a hazmat tanker driver and or responsible republican present. Patient was givendirect phone number to call ) if patient has any further questions or given the option to respond to [employer] message If one was sent (please see below for [employer] message). If you have any questions please contact the surgical tech at [phone] or respond to this [employer] message. . Thank you, Rick documented in this encounterTrihealth Mccull[facility]10-23-2023 Instructions* Patient Instructions* Ruth Miranda APRN.LIZET - 05/09/2023 1:[address] [...] up pending test results. documented in this encounterCleveland [id number] History of Present illness Narrative* Ruth Miranda APRN.THRESHING MACHINE OPERATOR - 05/09/2023 1:00 PM EDT This is [...] in the year. Following with cardiology ( [facility]), refers following up soon. Getting [...] cause unspecified Arthritis Atherosclerotic heart disease of [place] coronary artery without angina pectoris Atrial fibrillation [...] ACETBLR/PROX FEM PROSTC AGRFT/ALGRFT 04/2012 Dr. Wood> [facility] ARTHRP KNE CONDYLE&PLATU MEDIAL&LAT COMPARTMENTS Right COLONOSCOPY W/BIOPSY SINGLE/MULTIPLE 08/24/2006 EGD 12/01/2020 EYE SURGERY HX JOINT REPLACEMENT HX LEFT HEART CATH,PERCUTANEOUS 10/06/2022 OPEN REPAIR OF ROTATOR CUFF ACUTE 10/03/2008 Rotator cuff repair-right PAST SURGICAL HISTORY OF right knee scope PAST SURGICAL HISTORY OF cataract both eyes PAST SURGICAL HISTORY OF N/A 12/20/2022 EPS with Ablation, [facility] TONSILLECTOMY HX TONSILLECTOMY PRIMARY/SECONDARY <AGE 12 [...] were discussed and patient voices understanding. Ruth Miranda APRN.THRESHING MACHINE OPERATOR This note was partially generated using [employer] voice recognition system. Note was reviewed for accuracy. There may be minor misspellings or grammar miscues with [employer] voice recognition. documented in this encounterTrihealth Mccull[facility]10-16-2023 Miscellaneous Notes* Telephone Encounter - Janneth Burkett Ma - 05/02/2023 8:06 AM EDT Pt advised he can get the vaccine at any pharmacy or he can call in and make a nurse visit appt. Janneth Burkett Ma documented in this encounterTrihealth Mccullough-[facility]10-10-2023 History of Present illness Narrative* Gretel Morgan PA-C - 04/26/2023 1:06 PM EDT HISTORY AND PHYSICAL Shelton Kay 1945 REFERRING [...] sedation, findings of gastritis. Last colonoscopy in [facility] 09/08/16 with removal of sigmoid polyp, 3 year follow-up recommended. Path report not available in [facility]. Patient's medical history is significant for atrial fibrillation, AVN, cardiomyopathy, coronary stents, carotid stenosis, PAD. He follows with Dr. Vigil in primary care for his chronic medical conditions. PAST MEDICAL HISTORY Diagnosis Date Allergic rhinitis, cause unspecified Arthritis Atherosclerotic heart disease of [place] coronary artery without angina pectoris Atrial fibrillation [...] ACETBLR/PROX FEM PROSTC AGRFT/ALGRFT 04/2012 Dr. Wood> [facility]. ARTHRP KNE CONDYLE&PLATU MEDIAL&LAT COMPARTMENTS Right COLONOSCOPY W/BIOPSY SINGLE/MULTIPLE 08/24/2006 EGD 12/01/2020 EYE SURGERY HX JOINT REPLACEMENT HX LEFT HEART CATH,PERCUTANEOUS 10/06/2022 OPEN REPAIR OF ROTATOR CUFF ACUTE 10/03/2008 Rotator cuff repair-right PAST SURGICAL HISTORY OF right knee scope PAST SURGICAL HISTORY OF cataract both eyes PAST SURGICAL HISTORY OF N/A 12/20/2022 EPS with Ablation, [facility] TONSILLECTOMY HX TONSILLECTOMY PRIMARY/SECONDARY <AGE 12 [...] entered by the nurse and reviewed by in Nursing Notes: Flaca Lewis LPN 04/26/2023 1:00 [...] N/A Last Colonoscopy: 2016 Flaca Lewis LPN I have confirmed and edited as necessary, the PFSH and ROS obtained by others. Gretel Morgan PA-C PHYSICAL EXAMINATION: General: The patient is 77 year old male, well nourished, well hydrated in no acute distress. The patient is oriented to time, place, and person. VITALS: Blood pressure 132/64, pulse 61, temperature 36.2 C (97.2 F), height 177.8 cm (5' 10"), weight 78.5 kg (173 lb), SpO2 97 [...] mail. Gretel Morgan PA-C documented in this encounterTrihealth Mccull[facility]10-10-2023 Nurse Note* Flaca LewisFREDDY - 04/26/2023 12:56 PM EDT REVIEW OF [...] 2016 Flaca Lewis LPN documented in this encounterTrihealth Mccull[facility]10-01-2023 History of Present illness Narrative* Ita Villanueva APRN.[facility] - 04/17/2023 12:34 PM EDT Images from [...] history is provided by the patient. No sign language teacher was used. Rash Review of Systems Constitutional: [...] cause unspecified Arthritis Atherosclerotic heart disease of [place] coronary artery without angina pectoris Atrial fibrillation [...] ACETBLR/PROX FEM PROSTC AGRFT/ALGRFT 04/2012 Dr. Wood> [facility]. ARTHRP KNE CONDYLE&PLATU MEDIAL&LAT COMPARTMENTS Right COLONOSCOPY W/BIOPSY SINGLE/MULTIPLE 08/24/2006 EGD 12/01/2020 EYE SURGERY HX JOINT REPLACEMENT HX LEFT HEART CATH,PERCUTANEOUS 10/06/2022 OPEN REPAIR OF ROTATOR CUFF ACUTE 10/03/2008 Rotator cuff repair-right PAST SURGICAL HISTORY OF right knee scope PAST SURGICAL HISTORY OF cataract both eyes PAST SURGICAL HISTORY OF N/A 12/20/2022 EPS with Ablation, [facility] TONSILLECTOMY HX TONSILLECTOMY PRIMARY/SECONDARY <AGE 12 [...] okay with this care plan. Ita Villanueva APRN.LIZET documented in this encounterTrihealth Mccull[facility]09-27-2023 History of Present illness Narrative* Elena Hennessy [...] 13, 2023 9:38 AM documented in this encounterTrihealth Mccullough-[facility]09-12-2023 Instructions* Patient Instructions* Malathi Galeas APRN.CNP - 03/29/2023 3:35 PM EDT Atrial Fibrillation [...] healthcare provider's instructions for treatment. Copyright 2014 [employer] and/or one of its subsidiaries. All rights reserved. documented in this encounterTrihealth Mccullough-[facility]09-12-2023 History of Present illness Narrative* Malathi Galeas APRN.THRESHING MACHINE OPERATOR - 03/29/2023 3:00 PM EDT Images from the original note were not included. [facility] General Cardiology Electrophysiology PRIMARY CARE PHYSICIAN: Federico Vigil [address] [place] [address] CHIEF COMPLAINT: Cardiovascular medicine follow-up for arrhythmia. [...] per week at the wellness center in [place], under the supervision of an barrel handler. He checks his heart rhythm daily on the [employer] mobile, reports 2 episodes of atrial fibrillation [...] cause unspecified Arthritis Atherosclerotic heart disease of [place] coronary artery without angina pectoris Atrial fibrillation [...] ACETBLR/PROX FEM PROSTC AGRFT/ALGRFT 04/2012 Dr. Wood> [facility]. ARTHRP KNE CONDYLE&PLATU MEDIAL&LAT COMPARTMENTS Right COLONOSCOPY W/BIOPSY SINGLE/MULTIPLE 08/24/2006 EGD 12/01/2020 EYE SURGERY HX JOINT REPLACEMENT HX LEFT HEART CATH,PERCUTANEOUS 10/06/2022 OPEN REPAIR OF ROTATOR CUFF ACUTE 10/03/2008 Rotator cuff repair-right PAST SURGICAL HISTORY OF right knee scope PAST SURGICAL HISTORY OF cataract both eyes PAST SURGICAL HISTORY OF N/A 12/20/2022 EPS with Ablation, [facility] TONSILLECTOMY HX TONSILLECTOMY PRIMARY/SECONDARY <AGE 12 [...] EXAMINATION: BP 132/49 Pulse 66 Ht 5' 10" (1.78m) Wt 173 lb 12.8 oz (78.8kg) [...] with occasional PVCs, RBBB, LAFB, 65 bpm, UT 198 ms, QRS 130 ms, QT/QTc 452/470 [...] patient and his spouse verbalized understanding. 4. 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 In the future, if patient needs antiarrhythmic drug therapy, will consider dofetilide, as discussed with Dr. Walker. 5. nursing home (current) use of anticoagulants - ICD9: V58.61, [...] (around 06/28/2023) for Dr. Walker or [place]. Malathi Galeas APRN.THRESHING MACHINE OPERATOR Medical Decision Making: Problems: Moderate: 2+ stable [...] to correct any errors. documented in this encounterTrihealth Mccullough-[facility]09-12-2023 NoteHNO ID: [id number] Author: Malathi Galeas APRN.LIZET Service: ? Author Type: Nurse Practitioner Type: Progress Notes Filed: 03/29/2023 3:48 PM Note Text: [facility] Cardiology Electrophysiology PRIMARY CARE PHYSICIAN: Federico Vigil [address] [place] [address] CHIEF COMPLAINT: Cardiovascular medicine follow-up for arrhythmia. [...] per week at the wellness center in [place], under the supervision of an barrel handler. He checks his heart rhythm daily on the [employer] mobile, reports 2 episodes of atrial fibrillation [...] cause unspecified Arthritis Atherosclerotic heart disease of [place] coronary artery without angina pectoris Atrial fibrillation [...] ACETBLR/PROX FEM PROSTC AGRFT/ALGRFT 04/2012 Dr. Wood> [facility] ARTHRP KNE CONDYLEANDPLATU MEDIALANDLAT COMPARTMENTS Right COLONOSCOPY W/BIOPSY SINGLE/MULTIPLE 08/24/2006 EGD 12/01/2020 EYE SURGERY HX JOINT REPLACEMENT HX LEFT HEART CATH,PERCUTANEOUS 10/06/2022 OPEN REPAIR OF ROTATOR CUFF ACUTE 10/03/2008 Rotator cuff repair-right PAST SURGICAL HISTORY OF right knee scope PAST SURGICAL HISTORY OF cataract both eyes PAST SURGICAL HISTORY OF N/A 12/20/2022 EPS with Ablation, [facility] TONSILLECTOMY HX TONSILLECTOMY PRIMARY/SECONDARY Tonsillectomy and adnoids Social History Tobacco Use Smoking status: Former Packs/day: 1.00 Years: 10.00 Additional pack years: 0.00 Total pack years: 10.00 Types: Cigarettes Quit date: 07/18/1971 Years since quittin.7 Smokeless tobacco: Never Vaping Use Vaping Use: Never used Substance Use Topics Alcohol use: Yes Alcohol/week: 5 (more content not included)...[facility] Nurse Note* Veronica Rosas MA - 03/29/2023 2:57 PM EDT No cardiac complaints today. Veronica Rosas MA documented in this encounterTrihealth Mccull[facility]09-12-2023 Nurse Note* Cassidy Munoz Packing House Laborer - 03/29/2023 11:00 AM EDT Applied event monitor. Pt verbalized understanding of monitor use and appropriately demonstrated recording a baseline. Spouse present for instruction. documented in this encounterTrihealth Mccullough-[facility]09-12-2023 History of Present illness Narrative* Tatianna Benavidez RT(Joe) - 03/29/2023 8:30 AM EDT Radiology Service [...] RADIOLOGY DEPARTMENT: CT; Exam(s) Completed: Cardiac SIGNATURE: JOHN Ruth) PATIENT NAME: Shelton Kay DATE: March 29, 2023 TIME: 8:27 AM documented in this encounterTrihealth Mccullough-[facility]09-12-2023 NoteHNO ID: [id number] Author: Tatianna Benavidez RT (R) Service: Radiology Author Type: Technologist Type: Progress [...] Kay DATE: March 29, 2023 TIME: 8:27 [facility]09-08-2023 NoteHNO ID: [id number] Author: Elena Watkins APRN.THRESHING MACHINE OPERATOR Service: ? Author Type: Nurse Practitioner Type: Progress Notes Filed: 03/25/2023 11:33 AM Note Text: Shelton Kay is a 77 year old male presents for yearly evaluation of carotid disease. He is a prior [facility] pt, and established care with Dr. Arreguin a year ago at the [place] office, following [facility]'s residential. Annual Carotid US was requested. Pt has [...] cause unspecified Arthritis Atherosclerotic heart disease of [place] coronary artery without angina pectoris Atrial fibrillation [...] ACETBLR/PROX FEM PROSTC AGRFT/ALGRFT 04/2012 Dr. Wood> [facility]. ARTHRP KNE CONDYLEANDPLATU MEDIALANDLAT COMPARTMENTS Right COLONOSCOPY W/BIOPSY SINGLE/MULTIPLE 08/24/2006 EGD 12/01/2020 EYE SURGERY HX JOINT REPLACEMENT HX LEFT HEART CATH,PERCUTANEOUS 10/06/2022 OPEN REPAIR OF ROTATOR CUFF ACUTE 10/03/2008 Rotator cuff repair-right PAST SURGICAL HISTORY OF right knee scope PAST SURGICAL HISTORY OF cataract both eyes PAST SURGICAL HISTORY OF N/A 12/20/2022 EPS with Ablation, [facility] TONSILLECTOMY HX TONSILLECTOMY PRIMARY/SECONDARY Tonsillectomy and [...] prior to anticipated interco (more content not included)...[facility] Miscellaneous Notes* Telephone Encounter - Elena Foster LPN - 03/18/2023 10:10 AM EDT Left message for to call [facility] for update and new order. AGC [...] accordingly. Elena Foster LPN documented in this encounterTrihealth Mccullough-[facility]08-31-2023 Miscellaneous Notes* Telephone Encounter - Ruth Miranda APRN.CNP - 03/17/2023 3:25 PM EDT Consult has been signed, printed, and faxed to [place] [facility]. Ruth Miranda APRN.LIZET * Telephone Encounter - Precious Henry RN - 03/03/2023 8:36 AM EDT Spouse (De mike) calls and reports that the recommendation would be for a referral to pulmonology and asking if provider would send it to [facility]. Pended consult for a-fib with excessive daytime sleepiness per spouse's request. Please fax to [phone] if provider agrees. Precious Henry RN * Telephone Encounter - Yasmeen Oliveros Ma - 02/17/2023 12:28 PM EDT If Sleep Lab states that this this is not covered by pt's insurance and Cardio wanted this completed, what do you suggest? Yasmeen Oliveros Ma * Telephone Encounter - Elif Godoy LPN - 02/17/2023 11:31 AM EDT [place] [facility] and the office notes they received do not support the order for sleep study. The phone number shows the custom home installer wanted pt to have this done. Per the Sleep lab ptwill need a face to face with documentation from pcp is needed. Please contact pt to schedule a face to face apt. After this has been done please fax office note to [facility]. Need documented signs and symptoms that qualify pt for the sleep study. Elif Godoy LPN documented in this encounterTrihealth Mccull[facility]08-07-2023 Miscellaneous Notes* Telephone Encounter - Elena Watkins APRN.CNP - 02/21/2023 1:58 PM EDT Noted and agree with plan. Thank you, Elena Watkins APRN.LIZET * Telephone Encounter - Keila Lucas LPN - 02/21/2023 1:24 PM EDT Spouse, Ry, calling in to Nurse's Line to advise that patient is experiencing head pain and blurred vision. Patient went to his cilnical scientist/opthalmology who cleared him there. Spouse states there [...] the closest medical facility anitra evaluated. Keila Lucas LPN February 21, 2023 1:28 PM documented in this encounterTrihealth Mccullough-[facility]07-11-2023 Miscellaneous Notes* Telephone Encounter - Orly Corrigan - 01/25/2023 9:13 AM EDT LMOM to schedule with Dr Arreguin in [place] Annual F/UP for Carotid Stenosis, Asymptomatic, Bilat with US CAROTID BILAT 02/15/2023 *DOLLY SCHULER* documented in this encounterTrihealth Mccullough-Hy[facility]07-03-2023 History of Present illness Narrative* Federico Vigil MD - 01/17/2023 3:00 PM EDT Chief Complaint Follow up HPI Shelton Kay [...] a cardiac work out he received from [employer]. On current regimen of Lisinopril 2.5 mg once daily in addition to Coreg 3.125 mg 2 tab po bid, Jardiance 10 mg once daily, Eliquis 5 mg bid, Amiodarone 200 mg once daily, Lasix 40 mg prn, Aldactone 25 mg once daily and Plavix 75 mg once daily. Afib - Is followed by [facility], had new onset of Afib earlier this year. Pt had cardiac work up completed with stress test, heart cath with 2 stents placed in September. Pt was then referred for ablation, which was completed on 12/20/22. Pt was seen in [place] by Dr. Walker. Has f/u with Cardio. [...] cause unspecified Arthritis Atherosclerotic heart disease of [place] coronary artery without angina pectoris Atrial fibrillation [...] ACETBLR/PROX FEM PROSTC AGRFT/ALGRFT 04/2012 Dr. Wood> [facility] ARTHRP KNE CONDYLE&PLATU MEDIAL&LAT COMPARTMENTS Right [...] Moderate Federico Vigil MD documented in this encounterTrihealth Mccull[facility]06-15-2023 Miscellaneous Notes* Telephone Encounter - Tiarra Rand - 12/30/2022 9:51 AM EDT Post PVAI orders pended for signature documented in this encounterTrihealth Mccullough-Hy[facility] Hospital05-16-2023 Miscellaneous Notes* Telephone Encounter - Magda Wallace [...] before the procedure. You will need a hazmat tanker driver when released from the hospital and you will stay overnight for observation. You should continue to take medications as prescribed the morning of the procedure with just a sip of water unless otherwise instructed. Spoke with Shelton Kay on November 30, 2022. Informed of instructions as stated above. Patient verbalized understanding. Tiarra Rand documented in this encounterTrihealth Mccullough-[facility] Hospital05-15-2023 Instructions* Patient Instructions* Timothy Walker MD - [...] healthcare provider's instructions for treatment. Developed by [employer]. Published by [employer]. Copyright 2014 [employer] and/or one of its subsidiaries. All rights reserved. documented in this encounterTrihealth Mccullough-Hyde [facility] Hospital05-15-2023 History of Present illness Narrative* Timothy Walker MD - 11/29/2022 9:42 AM EDT Images from the original note were not included. PRIMARY CARE PHYSICIAN: Federico Vigil [address] [place] [address] REFERRING PHYSICIAN: No referring provider defined for [...] cause unspecified Arthritis Atherosclerotic heart disease of [place] coronary artery without angina pectoris Atrial fibrillation [...] ACETBLR/PROX FEM PROSTC AGRFT/ALGRFT 04/2012 Dr. Wood> [facility] ARTHRP KNE CONDYLE&PLATU MEDIAL&LAT COMPARTMENTS Right [...] EXAMINATION: BP 122/69 Pulse 65 Ht 5' 10" (1.78m) Wt 176 lb 6.4 oz (80.0kg) [...] MEDICINE TESTING: Electrocardiogram: Echocardiogram: Stress test: 09/24/2022 [facility]: I have personally reviewed the Electrocardiogram, Echocardiogram, and Stress Test: Nuclear (Non-PET). ASSESSMENT/PLAN: 1. PAF (paroxysmal atrial fibrillation) ([facility]) - ICD9: 427.31, ICD10: I48.0 (primary diagnosis) 2. Atrial fibrillation, unspecified type ([facility]) - ICD9: 427.31, ICD10: I48.91 - ECG B/O W INTERP (MED OFFICE) 3. Cardiomyopathy, ischemic - ICD9: 414.8, ICD10: I25.5 4. PAD (peripheral artery disease) ([facility]) - ICD9: 443.9, ICD10: I73.9 5. Mixed hyperlipidemia - ICD9: 272.2, ICD10: E78.2 6. Coronary artery disease involving [place] coronary artery of [place] heart without angina pectoris- ICD9: 414.01, ICD10: [...] ablation. Timothy Walker MD documented in this encounterTrihealth Mccull[facility]05-15-2023 Nurse Note* Veronica Rosas MA - 11/29/2022 9:39 AM EDT C/o SOB. Veronica Rosas MA documented in this encounterTrihealth Mccullough-[facility] Hospital04-26-2023 Miscellaneous Notes* Telephone Encounter - Karine Salvador [...] on reply. Scheduled same day appt with Algebraist. * Telephone Encounter - Elif Godoy LPN [...] . Elif Godoy LPN documented in this encounterTrihealth Mccullough-Hy[facility] Hospital04-26-2023 Miscellaneous Notes* Telephone Encounter - Gretel Bansal RN - 11/10/2022 4:24 PM EDT See Phone Encounter 11/10/22. Called patient and notified him that new steroid script was sent to pharmacy. * Telephone Encounter - Nurys Stevens LPN - 11/08/2022 9:56 AM EDT Records faxed to [place] [facility] Dr. Seo. Consent has been [...] tapered. Nurys Stevens LPN documented in this encounterTrihealth Mccullough-[facility]04-26-2023 Miscellaneous Notes* Telephone Encounter - Nurys Stevens LPN - 11/10/2022 4:06 PM EDT Images from the original note were not included. Karina Cline [facility] Podiatry Pool 1 minute ago (4:04 PM) [...] advise. Malathi Padilla LPN documented in this encounterTrihealth Mccull[facility]04-26-2023 Miscellaneous Notes* Telephone Encounter - Karina Cline - 11/10/2022 4:04 PM EDT Called in refill for oral steroid documented in this encounterTrihealth Mccull[facility]04-19-2023 History of Present illness Narrative* Arun Lopez [...] 03, 2022 9:28 AM documented in this encounterTrihealth Mccull[facility]04-12-2023 Instructions* Patient Instructions* Ruth Miranda APRN.CNP - 10/27/2022 11:16 AM EDT Continue to take all medication as prescribed. Keep scheduled appointments with cardiology Red flag symptoms go to ER Due for Tdap booster Follow up in 6 months or sooner as needed. documented in this encounterTrihealth Mccull[facility]04-12-2023 History of Present illness Narrative* Ruth Miranda APRN.CNP - 10/27/2022 11:00 AM EDT This is a 77 year old male who presents today with: Patient presents with: 6 Month Exam HISTORY OF PRESENT ILLNESS: Shelton Kay is a 77 year old male. Patient presents with: 6 Month Exam Office for 6-month follow-up. Afib: Was seen by [place] [facility] for new onset A-fib. Had cardiac work-up completed by them, stress test/heart cath. 2 stents placed in September Was referred to [facility] cardiology for ablation due to afib. Discussion [...] Gout: Taking Allopurinol 100 mg twice daily.Saw Pageant Director, had an injection into the foot. Injection [...] ACETBLR/PROX FEM PROSTC AGRFT/ALGRFT 04/2012 Dr. Wood> [facility]. ARTHRP KNE CONDYLE&PLATU MEDIAL&LAT COMPARTMENTS Right COLONOSCOPY [...] 100 mg by mouth once daily. omega 0-fwu-gyv-fish oil 500-100-1,000 mg cap Take 1 capsule [...] were discussed and patient voices understanding. Ruth Miranda APRN.THRESHING MACHINE OPERATOR This note was partially generated using [employer] system. Note was reviewed for accuracy. There may be minor misspellings or grammar miscues with Dragon voice recognition. documented in this encounterTrihealth Mccullough-[facility]04-10-2023 Instructions* Patient Instructions* Karina Cline - 10/25/2022 [...] possible for further instruction. documented in this encounterTrihealth Mccullough-Hyde [facility] Hospital04-10-2023 History of Present illness Narrative* Karina Cline - 10/25/2022 1:09 PM EDT FOLLOW UP [...] 5.5 4.3 - 5.6 % Final Comment: [place] [employer] guidelines indicate that patients with [...] 100 mg by mouth once daily. omega 7-agv-fkz-fish oil 500-100-1,000 mg cap Take 1 capsule [...] ACETBLR/PROX FEM PROSTC AGRFT/ALGRFT 04/2012 Dr. Wood> [facility]. ARTHRP KNE CONDYLE&PLATU MEDIAL&LAT COMPARTMENTS Right COLONOSCOPY [...] to foot and ankle. documented in this encounterTrihealth Mccullough-[facility] Hospital04-04-2023 Miscellaneous Notes* Telephone Encounter - Nurys Stevens LPN - 10/19/2022 8:55 AM EDT Patient notified of results and provider's instructions. Patient verbalizes understanding. Patient states he just needs shot and he as an appointment on 11/02/2022. Nurys Stevens LPN documented in this encounterTrihealth Mccull[facility]04-03-2023 Miscellaneous Notes* Telephone Encounter - Phani Rajan APRN.CNP - 10/18/2022 8:27 AM EDT The following approved medication requests have been transmitted electronically. Requested Prescriptions Pending Prescriptions Disp Refills allopurinol (ZYLOPRIM) 100 mg tablet [Pharmacy Med Name: ALLOPURINOL 100 MG TABLET] 180 tablet 1 Sig: TAKE 1 TABLET BY MOUTH TWICE A DAY Phani Rajan APRN.CNP * Telephone Encounter [...] 10/27/22 Luma Keyes MA documented in this encounterTrihealth Mccullough-[facility] Hospital03-29-2023 Miscellaneous Notes* Telephone Encounter - Karina Cline [...] back. She stated the patient had a "rough night" as he is in a ton of pain with what they believe is gout. Please contact patient.Seema Kitchen RN * Telephone Encounter - Pascale Walker LPN - 10/11/2022 4:07 PM EDT Patient's called stating she went to [facility] colchicine (COLCRYS) 0.6 mg tablet, pharmacy stated they are waiting on a reply from doctor. Please review and advise pharmacy and patient. Pascale Wlaker LPN documented in this encounterTrihealth Mccull[facility]03-27-2023 History of Present illness Narrative* Karina Cline [...] Date Value 10/06/2021 5.5 04/09/2021 5.5 HBA1C, [place] (%) Date Value 06/24/2010 5.2 06/06/2007 5.1 [...] 100 mg by mouth once daily. omega 8-gtm-raa-fish oil 500-100-1,000 mg cap Take 1 capsule [...] ACETBLR/PROX FEM PROSTC AGRFT/ALGRFT 04/2012 Dr. Wood> [facility] ARTHRP KNE CONDYLE&PLATU MEDIAL&LAT COMPARTMENTS Right [...] results. Karina Cline DPM Podiatry [address] [facility] [address] Dept: [phone] Dept * Nurys Stevens LPN - 10/11/2022 [...] touched. Nurys Stevens LPN documented in this encounterTrihealth Mccullough-[facility] Hospital03-27-2023 Miscellaneous Notes* Telephone Encounter - Nurys Stevens [...] VM. Nurys Stevens LPN documented in this encounterTrihealth Mccullough-[facility] Hospital03-13-2023 History of Present illness Narrative* Ita Villanueva BOARD CERTIFIED ARTS THERAPIST.THRESHING MACHINE OPERATOR - 09/27/2022 9:03 AM EDT [...] history is provided by the patient. No sign language teacher was used. Pain (foot) Review of Systems [...] ACETBLR/PROX FEM PROSTC AGRFT/ALGRFT 04/2012 Dr. Wood> [facility]. ARTHRP KNE CONDYLE&PLATU MEDIAL&LAT COMPARTMENTS Right COLONOSCOPY [...] mg by mouth once daily.^Disp: ^Rfl: omega 5-hbg-pon-fish oil 500-100-1,000 mg cap^Take 1 capsule by [...] IMPRESSION IMPRESSION: No acute fracture or dislocation Cloth Shrinking Tester: [facility]PITALDevorah Transcribe Date/Time: Sep 27 2022 9:58A [...] plan. Ita Villanueva APRN.CNP documented in this encounterTrihealth Mccull[facility]03-07-2023 Miscellaneous Notes* Telephone Encounter - Phani Rajan [...] 10/27/22 Luma Keyes MA documented in this encounterTrihealth Mccull[facility]03-02-2023 Miscellaneous Notes* Telephone Encounter - Yasmeen Oliveros [...] recommendation? Phylicia Alberts, RN documented in this encounterTrihealth Mccullough-Hyde [facility] Hospital02-28-2023 Miscellaneous Notes* Telephone Encounter - Federico Vigil MD - 09/14/2022 2:01 PM EST OK to refill as ordered Federico Vigil MD documented in this encounterTrihealth Mccullough-Hyde [facility] Hospital02-21-2023 Miscellaneous Notes* Telephone Encounter - Janneth Burkett Ma - 09/07/2022 4:02 PM EST Notified via [employer]. Janneth Burkett Ma * Telephone Encounter - Federico Vigil MD - 09/07/2022 3:56 PM EST OK for Lasix 40 mg daily as ordered Federico Vigil MD * Telephone Encounter - Cynthia Galeas RN - 09/07/2022 3:35 PM EST Patient's calls and states that patient has not been able to sleep due to cough. Patient's states that she had called custom home installer and was told that it sounds like patient may need some lasix. Patient does have pitting edema to left foot. By the end of day patient has pitting edema to bilateral feet. states that custom home installer nurse told her to call PCP for lasix since he has not hadestablish care visit with custom home installer (this appointment is 09/13/2022). asking if provider can order lasix? [facility]. Please review and advise, Cynthia Galeas RN documented in this encounterTrihealth Mccullough-[facility]02-20-2023 Miscellaneous Notes* Telephone Encounter - Ruth Miranda APRN.CNP - 09/06/2022 1:47 PM EST Order has been placed and faxed. Ruth Miranda APRN.CNP * Telephone Encounter - Phylicia Alberts RN - 09/06/2022 12:36 PM EST Luma @ [facility] Cardiovascular Testing calling to request order for Nuclear Lexiscan. They were unableto perform Exercise Stress ECG due to patient is in A fib. Please fax order to [facility]. Phylicia Alberts RN documented in this encounterTrihealth Mccullough-[facility]02-15-2023 Miscellaneous Notes* Telephone Encounter - Ruth Miranda APRN.CNP - 09/01/2022 10:32 AM EST Noted, last office note, echo results, and EKG faxed to [facility] office. Ruth Miranda APRN.CNP * Telephone Encounter - Magali Diaz LPN - 09/01/2022 9:56 AM EST Patient notified of results, verbalizes understanding of instructions. Pt has appt. with [facility]. on Sep 13 Magali Diaz LPN * Telephone Encounter - Ruth Miranda APRN.CNP - 09/01/2022 9:34 AM EST Can [...] is agreeable I can check with the [place] [facility] at [facility] to see if they can see him sooner? Please let me know what he prefers. Thank you. Ruth Miranda APRN.CNP documented in this encounterTrihealth Mccullough-[facility]02-13-2023 Miscellaneous Notes* Telephone Encounter - Janneth Burkett Ma - 08/30/2022 3:45 PM EST Stress test order faxed to [facility]. Referral, demo, OV, lab, insurance card, faxed to [facility]. Janneth Burkett Ma * Telephone Encounter - Barbara Combs - 08/30/2022 3:19 PM EST Patient would like stress test sent to [facility] to complete as patient is current scheduled for 01/10 andthey would also like cardiology consult sent to [place] [facility] as first opening in [facility] January 2023 documented in this encounterTrihealth Mccullough-[facility]02-10-2023 Miscellaneous Notes* Telephone Encounter - Ruth Miranda APRN.CNP - 08/27/2022 9:04 AM EST The following approved medication requests have been transmitted electronically. Requested Prescriptions Signed Prescriptions Disp Refills benzonatate (TESSALON PERLE) 100 mg capsule 60 capsule 0 Sig: Take 2 capsules by mouth three times daily as needed for cough for up to 10 days. Authorizing Provider: RUTH MIRANDA APRN.CNP * Telephone Encounter - Gt Barcenas LPN - 08/27/2022 8:08 AM EST Patient complains of a dry hacking cough for about 1 week. Worse at night while trying to sleep. Denies any fever, headache or chest tightness. Is requesting a refill of the tessalon capsules he was prescribed about 4 months ago. documented in this encounterTrihealth Mccullough-Hyde [facility] Hospital01-27-2023 Miscellaneous Notes* Telephone Encounter - Kellen Morejon Ma - 08/13/2022 8:47 AM EST Patient was notified Kellen Morejon Ma * Telephone Encounter - Ruth Miranda APRN.CNP - 08/13/2022 7:02 AM EST Can [...] by mouth twice daily. Authorizing Provider: RUTH MIRANDA APRN.CNP documented in this encounterTrihealth Mccullough-Hyde [facility] Hospital01-19-2023 Instructions* Patient Instructions* Ruth Miranda APRN.CNP - 08/05/2022 11:01 AM EST Get labs completed next week. Finish the steroids. 3. Follow up pending test results or sooner as needed. documented in this encounterTrihealth Mccullough-Hyde [facility] Hospital01-19-2023 History of Present illness Narrative* Ruth Miranda APRN.LIZET - 08/05/2022 11:00 AM EST This is [...] ACETBLR/PROX FEM PROSTC AGRFT/ALGRFT 04/2012 Dr. Wood> [facility] ARTHRP KNE CONDYLE&PLATU MEDIAL&LAT COMPARTMENTS Right [...] 100 mg by mouth once daily. omega 9-nfc-lin-fish oil 500-100-1,000 mg cap Take 1 capsule [...] were discussed and patient voices understanding. Ruth Miranda APRN.LIZET This note was partially generated using [employer] voice recognition system. Note was reviewed for accuracy. There may be minor misspellings or grammar miscues with [employer] voice recognition. documented in this encounterTrihealth Mccullough-Hyde [facility] Hospital01-15-2023 Instructions* Patient Instructions* Royce Rivera APRN.CNP - [...] or other joint pains. documented in this encounterTrihealth Mccullough-Hyde [facility] Hospital01-15-2023 History of Present illness Narrative* Royce Rivera [...] ACETBLR/PROX FEM PROSTC AGRFT/ALGRFT 04/2012 Dr. Wood> [facility] ARTHRP KNE CONDYLE&PLATU MEDIAL&LAT COMPARTMENTS Right [...] 100 mg by mouth once daily. omega 2-jxd-ifa-fish oil 500-100-1,000 mg cap Take 1 capsule [...] of care. This note was generated using [employer] software. It may contain errors in wording, punctuation, or spelling. oRyce Rivera APRN.LIZET documented in this encounterTrihealth Mccullough-[facility]01-12-2023 Instructions* Patient Instructions* Ruth Miranda APRN.CNP - 07/29/2022 10:34 AM EST Stop [...] 20 mg if needed documented in this encounterTrihealth Mccullough-[facility]01-12-2023 History of Present illness Narrative* Ruth Miranda APRN.CNP - 07/29/2022 10:20 AM EST This is [...] ACETBLR/PROX FEM PROSTC AGRFT/ALGRFT 04/2012 Dr. Wood> [facility]. ARTHRP KNE CONDYLE&PLATU MEDIAL&LAT COMPARTMENTS Right COLONOSCOPY [...] 100 mg by mouth once daily. omega 5-wgu-ktl-fish oil 500-100-1,000 mg cap Take 1 capsule [...] were discussed and patient voices understanding. Ruth Miranda APRN.LIZET This note was partially generated using [employer] voice recognition system. Note was reviewed for accuracy. There may be minor misspellings or grammar miscues with [employer] voice recognition. documented in this encounterTrihealth Mccullough-[facility]01-06-2023 History of Present illness Narrative* Elena Hennessy [...] applicable SIGNED BY: Elena Hennessy RDMS RVT July 23, 2022 3:22 PM documented in this encounterTrihealth Mccullough-[facility]de [facility]01-04-2023 Instructions* Patient Instructions* Ruth Miranda APRN.CNP - 07/21/2022 8:37 AM EST Get labs completed. Schedule appointment for ultrasound. Recommend follow up with Dr. Wolff Follow up pending test results or sooner as needed. Increasing burping may add on Pepcid 20 mg as needed. documented in this encounterTrihealth Mccullough-Hyde [facility]01-04-2023 History of Present illness Narrative* Ruth Miranda APRN.CNP - 07/21/2022 8:20 AM EST This [...] ACETBLR/PROX FEM PROSTC AGRFT/ALGRFT 04/2012 Dr. Wood> [facility] ARTHRP KNE CONDYLE&PLATU MEDIAL&LAT COMPARTMENTS Right [...] 100 mg by mouth once daily. omega 9-jpg-fco-fish oil 500-100-1,000 mg cap Take 1 capsule [...] were discussed and patient voices understanding. Ruth Miranda APRN.LIZET This note was partially generated using [employer] recognition system. Note was reviewed for accuracy. There may be minor misspellings or grammar miscues with [employer] voice recognition. documented in this encounterTrihealth Mccullough-Hyde [facility] Hospital12-30-2022 Miscellaneous Notes* Telephone Encounter - Felicia Olguin RN - 07/16/2022 4:48 PM EST Reason for Call: intermittent dizziness Outcome: Pt advised to be evaluated per a physician within 24 hrs. Pt and his agree. Pt.'s states pt will go to the [place] [facility] tomorrow if no appt is [...] normally, voids normally Protocols used: Dizziness - [id number] Pt reports recent dx of gout or cellulitis per his ankle which has improved and appears better. documented in this encounterTrihealth Mccullough-Hyde [facility] Hospital10-12-2022 Instructions* Patient Instructions* Ruth Miranda APRN.CNP - 04/28/2022 11:17 AM EDT Continue to take all medication as prescribed. Get fasting labs completed prior to next appointment. No food 8-10 hours, may have black coffee andwater. Keep scheduled appointment with specialist. Follow up in 6 months or sooner as needed. documented in this encounterTrihealth Mccullough-Hyde [facility] Hospital10-12-2022 History of Present illness Narrative* Ruth Miranda APRN.CNP - 04/28/2022 11:00 AM EDT This [...] 130/60's. Follows with vascular was seeing Dr. Arreguin and Dr. Wolff. Denies chest pain, palpitations, [...] ACETBLR/PROX FEM PROSTC AGRFT/ALGRFT 04/2012 Dr. Wood> [facility] ARTHRP KNE CONDYLE&PLATU MEDIAL&LAT COMPARTMENTS Right [...] 100 mg by mouth once daily. omega 2-byu-fvc-fish oil 500-100-1,000 mg cap Take 1 capsule [...] were discussed and patient voices understanding. Ruth Miranda APRN.THRESHING MACHINE OPERATOR This note was partially generated using Dragon voice recognition system. Note was reviewed for accuracy. There may be minor misspellings or grammar miscues with [employer] voice recognition. documented in this encounterTrihealth Mccullough-Hyde [facility] Hospital10-05-2022 Miscellaneous Notes* Telephone Encounter - Юлия Enriquez [...] if pcp will refill omeprazole, since GI Algebraist is no longer here? Pended. Last ov in pcp office- 01-15-22. Next appt: 04-28-22. Reports he has 2 pills left. documented in this encounterTrihealth Mccullough-Hyde [facility] Hospital10-05-2022 Miscellaneous Notes* Telephone Encounter - Gt Barcenas LPN - 04/21/2022 10:16 AM EDT PATIENT NOTIFIED OF SAME. * Telephone Encounter - Ruth Miranda APRN.CNP - 04/21/2022 10:02 AM EDT Can you please call the patient and let him know that he does not have to have labs completed at this time, looking in his chart he had labs completed in January. Please let me know if he has any questions. Thank you. Ruth Miranda APRN.LIZET * Telephone Encounter - Evon Ross RN - 04/21/2022 8:51 AM EDT Patient scheduled his 6 mth f/u with Algebraist on 04-28. Asking if you want him to do lab work? Reports hetakes cholesterol and BP medication. Please advise patient. documented in this encounterTrihealth Mccullough-Hyde [facility] Hospital10-04-2022 History of Present illness Narrative* Karina Cline - 04/20/2022 6:31 PM EDT FOLLOW UP [...] 5.5 4.3 - 5.6 % Final Comment: [place] [employer] guidelines indicate that patients with [...] 100 mg by mouth once daily. omega 2-wto-doj-fish oil 500-100-1,000 mg cap Take 1 capsule [...] ACETBLR/PROX FEM PROSTC AGRFT/ALGRFT 04/2012 Dr. Wood> [facility] ARTHRP KNE CONDYLE&PLATU MEDIAL&LAT COMPARTMENTS Right [...] this helped. 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 Requesting subsequent injection. documented in this encounterTrihealth [facility]10-04-[facility]22 Instructions* Patient Instructions* Karina Cline - 04/20/2022 [...] possible for further instruction. documented in this encounterTrihealth Mcc[facility]10-04-2022 History of Present illness Narrative* RT Eunice(oJe) - 04/20/2022 3:20 PM EDT Radiology Service [...] 20, 2022 3:18 PM documented in this encounterTrihealth Mcc[facility]09-29-2022 Instructions* Patient Instructions* Elina Darnell - 04/15/2022 [...] Elina Darnell APRN Student documented in this encounterTrihealth Mccull[facility]09-29-2022 History of Present illness Narrative* Kinga Pepper APRN.THRESHING MACHINE OPERATOR - 04/15/2022 12:04 PM EDT [...] ACETBLR/PROX FEM PROSTC AGRFT/ALGRFT 04/2012 Dr. Wood> [facility] ARTHRP KNE CONDYLE&PLATU MEDIAL&LAT COMPARTMENTS Right [...] 100 mg by mouth once daily. omega 0-dhm-wsa-fish oil 500-100-1,000 mg cap Take 1 capsule [...] TABLET Elina Darnell APRN Student TEACHING PROVIDER (Physician/PA/BOARD CERTIFIED ARTS THERAPIST) NOTE OF PERSONAL INVOLVEMENT IN CARE: I have personally seen and examined the patient and performed the medical decision-making components. I have reviewed the Advanced Practice Registered Nurse (BOARD CERTIFIED ARTS THERAPIST) Student's documentation and verified the findings in the note as written. Any additions or changes are noted in bold/italics. Signature: Kinga Pepper Date: 04/15/2022 Time: 12:59 PM documented in this encounterTrihealth Mccull[facility]09-29-2022 History of Present illness Narrative* Arun Lopez, RT(R) - 04/15/2022 12:00 PM EDT Radiology Service Progress Note PATIENT NAME: Shelton Kay DATE OF SERVICE: April 15, 2022 TIME: [...] 15, 2022 12:04 PM documented in this encounterTrihealth Mccull[facility]08-22-2022 Miscellaneous Notes* Telephone Encounter - Federico Vigil MD - 03/08/2022 11:17 AM EDT OK to refill as ordered Federico Vigil MD * Telephone Encounter - Gt Barcenas LPN - 03/08/2022 9:48 AM EDT Last office visit: 01/15/22 Last labs: 10/06/21 Patient phones requesting refills as follows: Requested Prescriptions Pending Prescriptions Disp Refills simvastatin (ZOCOR) 20 mg tablet 90 tablet 3 Sig: Take 1 tablet by mouth once daily. Please review and advise. Gt Barcenas LPN documented in this encounterTrihealth Mccull[facility]08-18-2022 History of Present illness Narrative* Phi Arreguin MD - 03/04/2022 9:58 AM EDT Shelton Kay is a 76 year old [...] 50-99% stenosis. L CCA 50-99% stenosos, L AAC38-80% stenosis, L SCA 50-99% stenosis. And no [...] ACETBLR/PROX FEM PROSTC AGRFT/ALGRFT 04/2012 Dr. Wood> [facility]. ARTHRP KNE CONDYLE&PLATU MEDIAL&LAT COMPARTMENTS Right COLONOSCOPY [...] 100 mg by mouth once daily. omega 0-xcb-xhz-fish oil 500-100-1,000 mg cap Take 1 capsule [...] symptoms, will not repeat his pvr. Phi Arreguin MD I spent 30 minutes in the visit, with more than 50% of the total hici-eg-rfwa time of the visit in counseling / coordination of care. documented in this encounterTrihealth Mccull[facility]08-15-2022 Miscellaneous Notes* Telephone Encounter - Yasmeen Oliveros Ma - 03/01/2022 4:58 PM EDT Pt called and notified Rx ready for fern picker at [facility]. Will come tomorrow to get this. [...] Last refill: 07/2021 * Telephone Encounter - Sarai Lacey [facility] - 03/01/2022 2:32 PM EDT Patient is [...] WOULD LIKE TO PICK-UP THIS RX AT [facility] [employer] [facility], PLEASE NOTIFY WHEN READY AT [phone] [facility] Electronically signed by Sarai [facility] at 03/01/2022 2:37 PM EDT documented in this encounterTrihealth Mcc[facility]08-15-2022 Miscellaneous Notes* Telephone Encounter - Tiarra Somers - 03/01/2022 2:39 PM EDT LM for patient to see if we can move his appointment up to 10am with Dr. Arreguin on for brianna. Told him to call me to see if that works. documented in this encounterTrihealth Mcc[facility]07-05-2022 Miscellaneous Notes* Telephone Encounter - Janneth Burkett Ma - 01/19/2022 1:52 PM EDT Pt notified of results via [employer]. Janneth Burkett Ma * Telephone Encounter - Ruth Miranda APRN.CNP - 01/19/2022 1:47 PM EDT Can please [...] he has any questions. Thank you. Ruth Miranda APRN.CNP documented in this encounterTrihealth Mccull[facility]07-01-2022 Instructions* Patient Instructions* Ruth Miranda APRN.CNP - 01/15/2022 9:46 AM EDT 1.) Get labs completed. 2.) Increase water intake to 8-10 glasses per day. 3.) Recommend trying a B complex vitamin 4.) Continue to stretch the legs. 5.) schedule follow up with vascular, Dr. Wolff. 6.) Follow up pending test results. documented in this encounterTrihealth Mcc[facility]07-01-2022 History of Present illness Narrative* Ruth Miranda APRN.CNP - 01/15/2022 9:40 AM EDT This [...] per week. 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 Does take a potassium [...] ACETBLR/PROX FEM PROSTC AGRFT/ALGRFT 04/2012 Dr. Wood> [facility] ARTHRP KNE CONDYLE&PLATU MEDIAL&LAT COMPARTMENTS Right [...] 100 mg by mouth once daily. omega 3-cdn-omr-fish oil 500-100-1,000 mg cap Take 1 capsule [...] were discussed and patient voices understanding. Ruth Miranda APRN.LIZET This note was partially generated using [employer] voice recognition system. Note was reviewed for accuracy. There may be minor misspellings or grammar miscues with [employer] voice recognition. documented in this encounterTrihealth Mcc[facility]05-10-2022 Instructions* Patient Instructions* Karina Cline - 11/24/2021 [...] possible for further instruction. documented in this encounterTrihealth Mcc[facility]05-10-2022 History of Present illness Narrative* Karina Cline [...] of right 5th metatarsal He feels a "knot" to the bottom of his right foot. [...] 5.5 4.3 - 5.6 % Final Comment: [place] [employer] guidelines indicate that patients with [...] 100 mg by mouth once daily. omega 9-ljp-sca-fish oil 500-100-1,000 mg cap Take 1 capsule by mouth once daily. multivitamins ORAL Liqd TAKES 1 OUNCE DAILY No current facility-administered medications for this visit. ALLERGIES Allergen Reactions Indocin [Indomethac* Diarrhea Mobic [Meloxicam] Diarrhea PAST SURGICAL HISTORY Procedure Laterality Date ARTHROPLASTY TOTAL SHOULDER 06/2011 Dr. Benitez. ARTHRP ACETBLR/PROX FEM PROSTC AGRFT/ALGRFT 04/2012 Dr. Wood> [facility] ARTHRP KNE CONDYLE&PLATU MEDIAL&LAT COMPARTMENTS Right [...] dexamethazone Karina Cline DPM documented in this encounterTrihealth Mcc[facility]05-10-2022 History of Present illness Narrative* RT Eunice(R) [...] 24, 2021 2:30 PM documented in this encounterTrihealth Mcc[facility]03-31-2022 Miscellaneous Notes* Telephone Encounter - Gt Barcenas LPN - 10/15/2021 10:08 AM EDT Insurance will only cover Quantity Limit: 1 Quantity per 1 Day Pharmacy calls in requesting the following refill(s): Pending Prescriptions Disp Refills OMEPRAZOLE 20 MG CAPSULE,DELAYED RELEASE 90 capsule 1 Sig: TAKE 1 CAPSULE BY MOUTH EVERY DAY NUHA: Yes documented in this encounterTrihealth Mccull[facility]01-12-2021 History of Present illness Narrative* Arun Lopez (Rt), 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 Pain in limb 10/09/2007 10/30/2018 Disturbance of skin sensation 10/09/2007 documented as of this encounter (statuses as of 01/18/2023) [address]07-2011 History of Past illness Narrative* Problem Noted Date Diagnosed Date Resolved Date 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 3 Pain in limb 10/09/2007 10/30/2018 Disturbance of skin sensation 10/09/2007 10/30/2018 documented as of this encounter (statuses as of 01/25/2023) [address]07-2011 History of Past illness Narrative* Problem Noted Date Diagnosed Date Resolved Date 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 3 Pain in limb 10/09/2007 10/30/2018 Disturbance of skin sensation 10/09/2007 10/30/2018 documented as of this encounter (statuses as of 02/21/2023) [facility] of Past illness Narrative* Problem Noted Date Diagnosed Date Resolved Date 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 3 Pain in limb 10/09/2007 10/30/2018 Disturbance of skin sensation 10/09/2007 10/30/2018 documented as of this encounter (statuses as of 03/18/2023) [facility] of Past illness Narrative* Problem Noted Date Diagnosed Date Resolved Date 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 3 Pain in limb 10/09/2007 10/30/2018 Disturbance of skin sensation 10/09/2007 10/30/2018 documented as of this encounter (statuses as of 03/18/2023) [address]07-2011 History of Past illness Narrative* Problem Noted Date Diagnosed Date Resolved Date 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 3 Pain in limb 10/09/2007 10/30/2018 Disturbance of skin sensation 10/09/2007 10/30/2018 documented as of this encounter (statuses as of 03/30/2023) [address]07-2011 History of Past illness Narrative* Problem Noted Date Diagnosed Date Resolved Date 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 3 Pain in limb 10/09/2007 10/30/2018 Disturbance of skin sensation 10/09/2007 10/30/2018 documented as of this encounter (statuses as of 03/30/2023) [facility] of [facility] illness Narrative* Problem Noted Date Diagnosed Date Resolved Date 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 3 Pain in limb 10/09/2007 10/30/2018 Disturbance of skin sensation 10/09/2007 10/30/2018 documented as of this encounter (statuses as of 03/30/2023) [facility] of Past illness Narrative* Problem Noted Date Diagnosed Date Resolved Date 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 3 Pain in limb 10/09/2007 10/30/2018 Disturbance of skin sensation 10/09/2007 10/30/2018 documented as of this encounter (statuses as of 03/30/2023) [facility] of Past illness Narrative* Problem Noted Date Diagnosed Date Resolved Date 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 3 Pain in limb 10/09/2007 10/30/2018 Disturbance of skin sensation 10/09/2007 10/30/2018 documented as of this encounter (statuses as of 04/17/2023) [facility] of Past illness Narrative* Problem Noted Date Diagnosed Date Resolved Date 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 3 Pain in limb 10/09/2007 10/30/2018 Disturbance of skin sensation 10/09/2007 10/30/2018 documented as of this encounter (statuses as of 04/23/2023) [facility] of Past illness Narrative* Problem Noted Date Diagnosed Date Resolved Date 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 3 Pain in limb 10/09/2007 10/30/2018 Disturbance of skin sensation 10/09/2007 10/30/2018 documented as of this encounter (statuses as of 05/02/2023) [facility] of Past illness Narrative* Problem Noted Date Diagnosed Date Resolved Date 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 3 Pain in limb 10/09/2007 10/30/2018 Disturbance of skin sensation 10/09/2007 10/30/2018 documented as of this encounter (statuses as of 05/02/2023) [facility] of [facility] illness Narrative* Problem Noted Date Diagnosed Date Resolved Date 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 3 Pain in limb 10/09/2007 10/30/2018 Disturbance of skin sensation 10/09/2007 10/30/2018 documented as of this encounter (statuses as of 05/10/2023) [facility] of Past illness Narrative* Problem Noted Date Diagnosed Date Resolved Date 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 3 Pain in limb 10/09/2007 10/30/2018 Disturbance of skin sensation 10/09/2007 10/30/2018 documented as of this encounter (statuses as of 05/10/2023) [facility] of [facility] illness Narrative* Problem Noted Date Diagnosed Date Resolved Date 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 3 Pain in limb 10/09/2007 10/30/2018 Disturbance of skin sensation 10/09/2007 10/30/2018 documented as of this encounter (statuses as of 05/22/2023) [facility] of Past illness Narrative* Problem Noted Date Diagnosed Date Resolved Date 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 3 Pain in limb 10/09/2007 10/30/2018 Disturbance of skin sensation 10/09/2007 10/30/2018 documented as of this encounter (statuses as of 05/22/2023) [facility] of Past illness Narrative* Problem Noted Date Diagnosed Date Resolved Date 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 3 Pain in limb 10/09/2007 10/30/2018 Disturbance of skin sensation 10/09/2007 10/30/2018 documented as of this encounter (statuses as of 05/22/2023) [facility] of Past illness Narrative* Problem Noted Date Diagnosed Date Resolved Date 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 3 Pain in limb 10/09/2007 10/30/2018 Disturbance of skin sensation 10/09/2007 10/30/2018 documented as of this encounter (statuses as of 05/24/2023) [address]07-2011 History of Past illness Narrative* Problem Noted Date Diagnosed Date Resolved Date 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 3 Pain in limb 10/09/2007 10/30/2018 Disturbance of skin sensation 10/09/2007 10/30/2018 documented as of this encounter (statuses as of 05/25/2023) [address]07-2011 History of Past illness Narrative* Problem Noted Date Diagnosed Date Resolved Date 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 3 Pain in limb 10/09/2007 10/30/2018 Disturbance of skin sensation 10/09/2007 10/30/2018 documented as of this encounter (statuses as of 05/26/2023) [address]07-2011 History of Past illness Narrative* Problem Noted Date Diagnosed Date Resolved Date 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 3 Pain in limb 10/09/2007 10/30/2018 Disturbance of skin sensation 10/09/2007 10/30/2018 documented as of this encounter (statuses as of 05/26/2023) [facility] of Past illness Narrative* Problem Noted Date Diagnosed Date Resolved Date 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 3 Pain in limb 10/09/2007 10/30/2018 Disturbance of skin sensation 10/09/2007 10/30/2018 documented as of this encounter (statuses as of 06/07/2023) [facility] of Past illness Narrative* Problem Noted Date Diagnosed Date Resolved Date 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 3 Pain in limb 10/09/2007 10/30/2018 Disturbance of skin sensation 10/09/2007 10/30/2018 documented as of this encounter (statuses as of 06/14/2023) [facility] of Past illness Narrative* Problem Noted Date Diagnosed Date Resolved Date 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 3 Pain in limb 10/09/2007 10/30/2018 Disturbance of skin sensation 10/09/2007 10/30/2018 documented as of this encounter (statuses as of 06/23/2023) [place] [address]07-2011 History of Past illness Narrative* Problem Noted Date Diagnosed Date Resolved Date 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 3 Pain in limb 10/09/2007 10/30/2018 Disturbance of skin sensation 10/09/2007 10/30/2018 documented as of this encounter (statuses as of 08/19/2023) [facility] of [facility] illness Narrative* Problem Noted Date Diagnosed Date Resolved Date 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 3 Pain in limb 10/09/2007 10/30/2018 Disturbance of skin sensation 10/09/2007 10/30/2018 documented as of this encounter (statuses as of 08/23/2023) [facility] of Past illness Narrative* Problem Noted Date Diagnosed Date Resolved Date 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 3 Pain in limb 10/09/2007 10/30/2018 Disturbance of skin sensation 10/09/2007 10/30/2018 documented as of this encounter (statuses as of 09/02/2023) [facility] of Past illness Narrative* Problem Noted Date Diagnosed Date Resolved Date 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 3 Pain in limb 10/09/2007 10/30/2018 Disturbance of skin sensation 10/09/2007 10/30/2018 documented as of this encounter (statuses as of 09/02/2023) [facility] History of Past illness Narrative* Problem Noted Date Diagnosed Date Resolved Date 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 3 Pain in limb 10/09/2007 10/30/2018 Disturbance of skin sensation 10/09/2007 10/30/2018 documented as of this encounter (statuses as of 09/08/2023) [facility] History of Past illness Narrative* Problem Noted Date Diagnosed Date Resolved Date 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 3 Pain in limb 10/09/2007 10/30/2018 Disturbance of skin sensation 10/09/2007 10/30/2018 documented as of this encounter (statuses as of 09/14/2023) [facility] History of Past illness Narrative* Problem Noted Date Diagnosed Date Resolved Date 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 3 Pain in limb 10/09/2007 10/30/2018 Disturbance of skin sensation 10/09/2007 10/30/2018 documented as of this encounter (statuses as of 09/16/2023) [facility] of Past illness Narrative* Problem Noted Date Diagnosed Date Resolved Date 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 3 Pain in limb 10/09/2007 10/30/2018 Disturbance of skin sensation 10/09/2007 10/30/2018 documented as of this encounter (statuses as of 09/19/2023) [facility] of Past illness Narrative* Problem Noted Date Diagnosed Date Resolved Date 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 3 Pain in limb 10/09/2007 10/30/2018 Disturbance of skin sensation 10/09/2007 10/30/2018 documented as of this encounter (statuses as of 09/19/2023) [facility] of Past illness Narrative* Problem Noted Date Diagnosed Date Resolved Date 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 3 Pain in limb 10/09/2007 10/30/2018 Disturbance of skin sensation 10/09/2007 10/30/2018 documented as of this encounter (statuses as of 10/25/2023) [facility] History of Past illness Narrative* Problem Noted Date Diagnosed Date Resolved Date 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 3 Pain in limb 10/09/2007 10/30/2018 Disturbance of skin sensation 10/09/2007 10/30/2018 documented as of this encounter (statuses as of 10/27/2023) [facility] History of Past illness Narrative* Problem Noted Date Diagnosed Date Resolved Date 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 3 Pain in limb 10/09/2007 10/30/2018 Disturbance of skin sensation 10/09/2007 10/30/2018 documented as of this encounter (statuses as of 10/28/2023) [facility] of Past illness Narrative* Problem Noted Date Resolved Date Pain in limb 10/09/2007 10/30/2018 Disturbance of skin sensation 10/09/2007 documented as of this encounter (statuses as of 10/15/2021) [facility] of Past illness Narrative* Problem Noted Date Resolved Date Pain in limb 10/09/2007 10/30/2018 Disturbance of skin sensation 10/09/2007 documented as of this encounter (statuses as of 10/15/2021) [facility] of Past illness Narrative* Problem Noted Date Resolved Date Pain in limb 10/09/2007 10/30/2018 Disturbance of skin sensation 10/09/2007 documented as of this encounter (statuses as of 11/16/2021) [facility] of Past illness Narrative* Problem Noted Date Resolved Date Pain in limb 10/09/2007 10/30/2018 Disturbance of skin sensation 10/09/2007 documented as of this encounter (statuses as of 11/25/2021) [facility] of Past illness Narrative* Problem Noted Date Resolved Date Pain in limb 10/09/2007 10/30/2018 Disturbance of skin sensation 10/09/2007 documented as of this encounter (statuses as of 11/25/2021) [facility] Narrative* Problem Noted Date Resolved Date Pain in limb 10/09/2007 10/30/2018 Disturbance of skin sensation 10/09/2007 documented as of this encounter (statuses as of 01/15/2022) [facility] of Past illness Narrative* Problem Noted Date Resolved Date Pain in limb 10/09/2007 10/30/2018 Disturbance of skin sensation 10/09/2007 documented as of this encounter (statuses as of 01/19/2022) [facility] of Past illness Narrative* Problem Noted Date Resolved Date Pain in limb 10/09/2007 10/30/2018 Disturbance of skin sensation 10/09/2007 documented as of this encounter (statuses as of 03/01/2022) [address]24-2008 History of Past illness Narrative* Problem Noted Date Resolved Date Pain in limb 10/09/2007 10/30/2018 Disturbance of skin sensation 10/09/2007 documented as of this encounter (statuses as of 03/01/2022) [address]24-2008 History of Past illness Narrative* Problem Noted Date Resolved Date Pain in limb 10/09/2007 10/30/2018 Disturbance of skin sensation 10/09/2007 documented as of this encounter (statuses as of 03/04/2022) [facility] of Past illness Narrative* Problem Noted Date Resolved Date Pain in limb 10/09/2007 10/30/2018 Disturbance of skin sensation 10/09/2007 documented as of this encounter (statuses as of 03/08/2022) [facility] of Past illness Narrative* Problem Noted Date Resolved Date Pain in limb 10/09/2007 10/30/2018 Disturbance of skin sensation 10/09/2007 documented as of this encounter (statuses as of 04/12/2022) [facility] History of Past illness Narrative* Problem Noted Date Resolved Date Pain in limb 10/09/2007 10/30/2018 Disturbance of skin sensation 10/09/2007 documented as of this encounter (statuses as of 04/15/2022) [address]24-2008 History of Past illness Narrative* Problem Noted Date Resolved Date Pain in limb 10/09/2007 10/30/2018 Disturbance of skin sensation 10/09/2007 documented as of this encounter (statuses as of 04/16/2022) [address]24-2008 History of Past illness Narrative* Problem Noted Date Resolved Date Pain in limb 10/09/2007 10/30/2018 Disturbance of skin sensation 10/09/2007 documented as of this encounter (statuses as of 04/21/2022) [address]24[address]2008 History of Past illness Narrative* Problem Noted Date Resolved Date Pain in limb 10/09/2007 10/30/2018 Disturbance of skin sensation 10/09/2007 documented as of this encounter (statuses as of 04/21/2022) [facility] Narrative* Problem Noted Date Resolved Date Pain in limb 10/09/2007 10/30/2018 Disturbance of skin sensation 10/09/2007 documented as of this encounter (statuses as of 04/22/2022) [facility] of Past illness Narrative* Problem Noted Date Resolved Date Pain in limb 10/09/2007 10/30/2018 Disturbance of skin sensation 10/09/2007 documented as of this encounter (statuses as of 04/28/2022) [facility] [facility] History of Past illness Narrative* Problem Noted Date Resolved Date Pain in limb 10/09/2007 10/30/2018 Disturbance of skin sensation 10/09/2007 documented as of this encounter (statuses as of 07/22/2022) [facility]03[facility]24[facility] History of Past illness Narrative* Problem Noted Date Resolved Date Pain in limb 10/09/2007 10/30/2018 Disturbance of skin sensation 10/09/2007 documented as of this encounter (statuses as of 07/22/2022) [address]24-2008 History of Past illness Narrative* Problem Noted Date Resolved Date Pain in limb 10/09/2007 10/30/2018 Disturbance of skin sensation 10/09/2007 documented as of this encounter (statuses as of 07/29/2022) [facility]03-24-2008 History of Past illness Narrative* Problem Noted Date Resolved Date Pain in limb 10/09/2007 10/30/2018 Disturbance of skin sensation 10/09/2007 documented as of this encounter (statuses as of 08/01/2022) [facility]-24-2008 History of Past illness Narrative* Problem Noted Date Resolved Date Pain in limb 10/09/2007 10/30/2018 Disturbance of skin sensation 10/09/2007 documented as of this encounter (statuses as of 08/05/2022) [facility]03-24-2008 History of Past illness Narrative* Problem Noted Date Resolved Date Pain in limb 10/09/2007 10/30/2018 Disturbance of skin sensation 10/09/2007 documented as of this encounter (statuses as of 08/13/2022) [place] [id number] History of Past illness Narrative* Problem Noted Date Resolved Date Pain in limb 10/09/2007 10/30/2018 Disturbance of skin sensation 10/09/2007 documented as of this encounter (statuses as of 08/27/2022) [facility]03-24-2008 History of Past illness Narrative* Problem Noted Date Resolved Date Pain in limb 10/09/2007 10/30/2018 Disturbance of skin sensation 10/09/2007 documented as of this encounter (statuses as of 08/31/2022) [facility]-24-2008 History of Past illness Narrative* Problem Noted Date Resolved Date Pain in limb 10/09/2007 10/30/2018 Disturbance of skin sensation 10/09/2007 documented as of this encounter (statuses as of 09/01/2022) [facility] History of Past illness Narrative* Problem Noted Date Resolved Date Pain in limb 10/09/2007 10/30/2018 Disturbance of skin sensation 10/09/2007 documented as of this encounter (statuses as of 09/06/2022) [facility]-24-[facility] History of Past illness Narrative* Problem Noted Date Resolved Date Pain in limb 10/09/2007 10/30/2018 Disturbance of skin sensation 10/09/2007 documented as of this encounter (statuses as of 09/07/2022) [facility] History of Past illness Narrative* Problem Noted Date Resolved Date Pain in limb 10/09/2007 10/30/2018 Disturbance of skin sensation 10/09/2007 documented as of this encounter (statuses as of 09/14/2022) [facility] History of Past illness Narrative* Problem Noted Date Resolved Date Pain in limb 10/09/2007 10/30/2018 Disturbance of skin sensation 10/09/2007 documented as of this encounter (statuses as of 09/17/2022) [facility]03-24-2008 History of Past illness Narrative* Problem Noted Date Resolved Date Pain in limb 10/09/2007 10/30/2018 Disturbance of skin sensation 10/09/2007 documented as of this encounter (statuses as of 09/21/2022) [facility]-24-2008 History of Past illness Narrative* Problem Noted Date Resolved Date Pain in limb 10/09/2007 10/30/2018 Disturbance of skin sensation 10/09/2007 documented as of this encounter (statuses as of 09/27/2022) [facility]-24-[facility] History of Past illness Narrative* Problem Noted Date Resolved Date Pain in limb 10/09/2007 10/30/2018 Disturbance of skin sensation 10/09/2007 documented as of this encounter (statuses as of 10/11/2022) [facility]-24[facility] History of Past illness Narrative* Problem Noted Date Resolved Date Pain in limb 10/09/2007 10/30/2018 Disturbance of skin sensation 10/09/2007 documented as of this encounter (statuses as of 10/11/2022) [facility]-24[facility] History of Past illness Narrative* Problem Noted Date Resolved Date Pain in limb 10/09/2007 10/30/2018 Disturbance of skin sensation 10/09/2007 documented as of this encounter (statuses as of 10/12/2022) [place] [id number] History of Past illness Narrative* Problem Noted Date Resolved Date Pain in limb 10/09/2007 10/30/2018 Disturbance of skin sensation 10/09/2007 documented as of this encounter (statuses as of 10/18/2022) [facility] History of Past illness Narrative* Problem Noted Date Resolved Date Pain in limb 10/09/2007 10/30/2018 Disturbance of skin sensation 10/09/2007 documented as of this encounter (statuses as of 10/19/2022) [facility] History of Past illness Narrative* Problem Noted Date Resolved Date Pain in limb 10/09/2007 10/30/2018 Disturbance of skin sensation 10/09/2007 documented as of this encounter (statuses as of 10/19/2022) [place] [id number] History of Past illness Narrative* Problem Noted Date Resolved Date Pain in limb 10/09/2007 10/30/2018 Disturbance of skin sensation 10/09/2007 documented as of this encounter (statuses as of 10/25/2022) [place] [id number] History of Past illness Narrative* Problem Noted Date Resolved Date Pain in limb 10/09/2007 10/30/2018 Disturbance of skin sensation 10/09/2007 documented as of this encounter (statuses as of 10/28/2022) [address]24-2008 History of Past illness Narrative* Problem Noted Date Resolved Date Pain in limb 10/09/2007 10/30/2018 Disturbance of skin sensation 10/09/2007 documented as of this encounter (statuses as of 11/11/2022) [facility] History of Past illness Narrative* Problem Noted Date Resolved Date Pain in limb 10/09/2007 10/30/2018 Disturbance of skin sensation 10/09/2007 documented as of this encounter (statuses as of 11/11/2022) [facility]-24[facility] History of Past illness Narrative* Problem Noted Date Resolved Date Pain in limb 10/09/2007 10/30/2018 Disturbance of skin sensation 10/09/2007 documented as of this encounter (statuses as of 11/11/2022) [address]24-2008 History of Past illness Narrative* Problem Noted Date Resolved Date Pain in limb 10/09/2007 10/30/2018 Disturbance of skin sensation 10/09/2007 documented as of this encounter (statuses as of 11/11/2022) [facility]-24-[facility] History of Past illness Narrative* Problem Noted Date Resolved Date Pain in limb 10/09/2007 10/30/2018 Disturbance of skin sensation 10/09/2007 documented as of this encounter (statuses as of 11/29/2022) [facility]-24-2008 History of Past illness Narrative* Problem Noted Date Resolved Date Pain in limb 10/09/2007 10/30/2018 Disturbance of skin sensation 10/09/2007 documented as of this encounter (statuses as of 11/30/2022) [address]24-2008 History of Past illness Narrative* Problem Noted Date Resolved Date Pain in limb 10/09/2007 10/30/2018 Disturbance of skin sensation 10/09/2007 documented as of this encounter (statuses as of 12/30/2022) [facility]- [facility] Generalized pain [facility] Diagnosis Bursitis of right foot- Primary Tailor's bunion of right foot documented in this encounter [facility] note* Diagnosis Leg cramping- Primary Cramp of limb documented in this encounter [facility] note* Diagnosis ED (erectile dysfunction) of organic origin Impotence of organic origin [facility]* Diagnosis Carotid stenosis, asymptomatic, bilateral- Primary documented [facility]* Diagnosis Mixed hyperlipidemia documented [facility]* Diagnosis Acute cough- Primary Suspected COVID-19 virus infection BENIGN HYPERTENSION Essential hypertension, benign Lower resp. tract infection Other diseases of respiratory system, not elsewhere classified documented [facility]* Diagnosis Pain in left foot- Primary Pain in limb [facility]* Diagnosis Pain in left foot Pain in limb documented [facility]* Diagnosis Tailor's bunion of left foot- Primary [facility] Diagnosis BENIGN HYPERTENSION- Primary Essential hypertension, benign Mixed hyperlipidemia PAD (peripheral artery disease) (HCC) Peripheral vascular disease, unspecified ED (erectile dysfunction) of organic origin Impotence of organic origin Gastroesophageal reflux disease, unspecified whether esophagitis present Need for influenza vaccination Need for prophylactic vaccination and inoculation against influenza documented in this encounter [facility] noteNo assessment information availableWWright-[facility] Work Phone: Evaluation note* Diagnosis Dizziness- Primary Dizziness and giddiness Enlarged thyroid Goiter, unspecified documented [facility]* Diagnosis Pain with swallowing- Primary Dysphagia, unspecified GERD without esophagitis Esophageal reflux documented [facility] this [facility]* Diagnosis Toe swelling- Primary Swelling of limb documented [facility] this [facility]* Diagnosis History of gout- Primary Personal history of other endocrine, metabolic, and immunity disorders documented [facility] this [facility]* Diagnosis Gout involving toe of right foot, unspecified cause, unspecified chronicity- Primary documented [facility] Diagnosis Acute cough documented [facility] this [facility]* Diagnosis Atrial fibrillation, unspecified type (HCC)- Primary SOB (shortness of breath) Shortness of breath Shortness of breath documented in this encounter [facility] note* Diagnosis Acute cough documented in this encounter [facility] note* Diagnosis Gout involving toe of right foot, unspecified cause, unspecified chronicity- Primary documented in this encounter [facility] note* Diagnosis Atrial fibrillation, unspecified type (HCC) documented in this encounter [facility] note* Diagnosis Pain- Primary Generalized pain Acute gout involving toe of left foot, unspecified cause documented in this encounter [facility] note* Diagnosis Onset Date Resolution Status Atrial fibrillation chronic Cardiomyopathy chronic Carotid stenosis, bilateral chronic Dyslipidemia chronic Erectile dysfunction chronic Essential (primary) hypertension [facility] Work Phone: Evaluation note* Diagnosis Acute gout involving toe of left foot, unspecified cause- Primary Pain in left foot Pain in limb documented [facility]* Diagnosis Acute gout involving toe of left foot, unspecified cause- Primary documented in this encounter [facility] note* Diagnosis Acute gout involving toe of left foot, unspecified cause- Primary Pain in left foot Pain in limb Tailor's bunion of left foot Atrial fibrillation, unspecified type (HCC)- Primary Gout involving toe of right foot, unspecified cause, unspecified chronicity GERD without esophagitis Esophageal reflux BENIGN HYPERTENSION Essential hypertension, benign Mixed hyperlipidemia documented in this encounter [facility] note* Diagnosis Atrial fibrillation, unspecified type (HCC)- Primary BENIGN HYPERTENSION Essential hypertension, benign Mixed hyperlipidemia GERD without esophagitis Esophageal reflux Gout involving toe of right foot, unspecified cause, unspecified chronicity documented in this encounter [facility] note* Diagnosis Onset Date Resolution Status Atrial [...] dysfunction chronic Essential (primary) hypertension chronic Fatigue chronic [facility] Work Phone: Evaluation note* Diagnosis PAF (paroxysmal atrial fibrillation) (HCC)- Primary Atrial fibrillation Atrial fibrillation, unspecified type (HCC) Cardiomyopathy, ischemic Other specified forms of chronic ischemic heart disease PAD (peripheral artery disease) (HCC) Peripheral vascular disease, unspecified Mixed hyperlipidemia Coronary artery disease involving [place] coronary artery of [place] heart without angina pectoris S/P drug eluting coronary stent placement Postsurgical percutaneous transluminal coronary angioplasty status documented [facility] this [facility]* Diagnosis Persistent atrial fibrillation (HCC)- Primary Atrial fibrillation Dyspnea, unspecified type documented [facility]* Diagnosis BENIGN HYPERTENSION- Primary Essential hypertension, benign GERD without esophagitis Esophageal reflux Mixed hyperlipidemia PAD (peripheral artery disease) (HCC) Peripheral vascular disease, unspecified Atrial fibrillation, unspecified type (HCC) Cardiomyopathy, ischemic Other specified forms of chronic ischemic heart disease Ischemic cardiomyopathy Other specified forms of chronic ischemic heart disease documented in this encounter [facility]* Diagnosis Paroxysmal atrial fibrillation (HCC)- Primary Atrial fibrillation Excessive daytime sleepiness documented [facility] this [facility]* Diagnosis Status post catheter ablation of atrial fibrillation documented [facility] this [facility]* Diagnosis Status post catheter ablation of atrial fibrillation- Primary Status post ablation of atrial flutter Other postprocedural status Paroxysmal atrial fibrillation (HCC) Atrial fibrillation nursing home current use of antiarrhythmic drug roaster[place] (current) use of anticoagulants Long-term (current) use of anticoagulants At risk for stroke Other specified personal history presenting hazards to health documented in this encounter [facility]* Diagnosis Persistent atrial fibrillation (HCC) Atrial fibrillation Dyspnea, unspecified type documented [facility] this encounter [facility]* Diagnosis Persistent atrial fibrillation (HCC) Atrial fibrillation Dyspnea, unspecified type documented in this encounter [facility]* Diagnosis Rash- Primary Rash and other nonspecific skin eruption Acute gout involving toe of right foot, unspecified cause [facility] Diagnosis Pain with swallowing- Primary Dysphagia, unspecified History of colonic polyps Personal history of colonic polyps Upper abdominal pain Abdominal pain, other specified site documented in this encounter [facility]* Diagnosis Paroxysmal atrial fibrillation (HCC)- Primary Atrial fibrillation Dizziness Dizziness and giddiness Tinnitus, unspecified laterality Bilateral impacted cerumen Impacted cerumen Tenderness of neck [facility] Diagnosis Acute idiopathic gout, unspecified site Pain in right foot Pain in limb documented [facility] this [facility]* Diagnosis Enlarged thyroid Goiter, unspecified Tenderness of neck documented in this encounter [facility] note* Diagnosis Enlarged thyroid Goiter, unspecified documented in this encounter [facility] note* Diagnosis GERD without esophagitis- Primary Esophageal reflux documented in this encounter [facility] note* Diagnosis Dizziness Dizziness and giddiness Tinnitus, unspecified laterality documented in this encounter [facility] note* Diagnosis Other dysphagia- Primary Pain with swallowing Dysphagia, unspecified documented in this encounter [facility] note* Diagnosis Paroxysmal atrial fibrillation (HCC)- Primary Atrial fibrillation Cardiomyopathy, unspecified type (HCC) Coronary artery disease involving [place] coronary artery of [place] heart with angina pectoris (HCC) Mixed hyperlipidemia BENIGN HYPERTENSION Essential hypertension, benign Status post ablation of atrial flutter Other postprocedural status documented in this encounter [facility] note* Diagnosis Onset Date Resolution Status Atrial fibrillation chronic CAD (coronary artery disease) chronic Cardiomyopathy chronic Carotid stenosis, bilateral chronic Dyslipidemia chronic Erectile dysfunction chronic Essential (primary) hypertension chronic Other cervical disc degenera tion, mid-cervical region, unspecified level acute [facility] Work Phone: Evaluation note* Diagnosis Anemia, unspecified type- Primary documented [facility]* Diagnosis Anemia, unspecified type- Primary Iron deficiency anemia, unspecified iron deficiency anemia type documented in this encounter [facility] note* Diagnosis Acute pain of left knee- Primary documented in this encounter [facility] note* Diagnosis Anemia, unspecified type- Primary Iron deficiency anemia, unspecified iron deficiency anemia type documented in this encounter [facility] note* Diagnosis Iron deficiency anemia, unspecified iron deficiency anemia type- Primary documented in this encounter [facility] note* Diagnosis Iron deficiency anemia, unspecified iron deficiency anemia type- Primary documented in this encounter [facility] note* Diagnosis Iron deficiency anemia, unspecified iron deficiency anemia type- Primary documented [facility] this [facility]* Diagnosis Onset Date Resolution Status Other cervical disc degenera tion, mid-cervical region, unspecified level acute Left knee pain noneactive Anemia acute Atrial fibrillation chronic CAD (coronary artery disease) chronic Cardiomyopathy chronic Carotid stenosis, bilateral chronic Dyslipidemia chronic Essential (primary) hypertension chronic [facility] Work Phone: Evaluation note* Diagnosis Iron deficiency anemia, unspecified iron deficiency anemia type- Primary documented [facility] this [facility]* Diagnosis Anemia, unspecified type- Primary Iron deficiency anemia, unspecified iron deficiency anemia type documented in this encounter [facility] note* Diagnosis Iron deficiency anemia, unspecified iron deficiency anemia type- Primary Anemia, unspecified type documented in this encounter [facility] note* Diagnosis Onset Date Resolution Status Other cervical disc degenera tion, mid-cervical region, unspecified level acute Left knee pain noneactive Anemia acute Atrial fibrillation chronic CAD (coronary artery disease) chronic Cardiomyopathy chronic Carotid stenosis, bilateral chronic Dyslipidemia chronic Essential (primary) hypertension chronic Cervical radiculopathy [facility] Work Phone: Evaluation note* Diagnosis Vision changes- Primary Unspecified visual disturbance Amaurosis [place] Transient arterial occlusion of retina documented in this encounter [facility] note* Diagnosis Carotid stenosis, asymptomatic, bilateral- Primary Amaurosis [place] of right eye Transient arterial occlusion of retina Carotid stenosis, asymptomatic, bilateral Amaurosis [place] of right eye Transient arterial occlusion of retina documented in this encounter [facility] note* Diagnosis Carotid stenosis, asymptomatic, bilateral Amaurosis [place] of right eye Transient arterial occlusion of retina documented in this encounter [facility] note* Diagnosis Onset Date Resolution Status Left knee pain noneactive Anemia acute Atrial fibrillation chronic CAD (coronary artery disease) chronic Cardiomyopathy chronic Carotid stenosis, bilateral chronic Dyslipidemia chronic Essential (primary) hypertension chronic Cervical radiculopathy [facility] Work Phone: Evaluation note* Diagnosis Occlusion and stenosis of unspecified carotid artery Amaurosis [place] Transient arterial occlusion of retina documented in this encounter [facility] note* Diagnosis Bilateral extracranial carotid artery stenosis- Primary Amaurosis [place] Transient arterial occlusion of retina Occlusion and stenosis of unspecified carotid artery Occlusion and stenosis of unspecified carotid artery Amaurosis [place] Transient arterial occlusion of retina documented in this encounter [facility] note* Diagnosis Bilateral extracranial carotid artery stenosis- Primary Amaurosis [place] of right eye Transient arterial occlusion of retina documented in this encounter [facility] note* Diagnosis Bilateral extracranial carotid artery stenosis- Primary Bilateral extracranial carotid artery stenosis documented in this encounter [facility] note* Diagnosis Carotid stenosis, asymptomatic, bilateral- Primary Preop examination Preoperative examination, unspecified Paroxysmal atrial fibrillation (HCC) Atrial fibrillation Mixed hyperlipidemia Coronary artery disease involving [place] coronary artery of [place] heart with angina pectoris (HCC) Cardiomyopathy, unspecified [...] AM EDTAssociated Problem(s): Coronary artery disease involving [place] coronary artery of [place] heart with angina pectoris (HCC) S/P PCI [...] to get preop instructions from surgeon and custom home installer. Managed by Dr. Walker, last OV 06/22/2024 * Assessment & Plan Note - Heidy Bernstein APRN.CNP - 12/19/2023 11:00 AM EDTAssociated Problem(s): Preop examination Patient has the following medical conditions which may affect judy-operative course addressed in assessment and plan today. * Assessment & Plan Note - Heidy Bernstein APRN.CNP - 12/19/2023 11:00 AM EDTAssociated Problem(s): Carotid stenosis, asymptomatic, bilateral Surgery scheduled with Dr. Arreguin on 12/26/2023 [facility]* Diagnosis Mixed hyperlipidemia Bilateral extracranial carotid artery stenosis documented [facility]* Diagnosis Mixed hyperlipidemia Bilateral extracranial carotid artery stenosis documented [facility]* Diagnosis Paroxysmal atrial fibrillation (HCC)- Primary Atrial fibrillation Cardiomyopathy, unspecified type (HCC) Hyperlipidemia, unspecified hyperlipidemia type Primary hypertension Unspecified essential hypertension Status post ablation of atrial flutter Other postprocedural status Status post catheter ablation of atrial fibrillation documented in this [facility]* Diagnosis Post-op pain- Primary Other acute postoperative pain [facility] Diagnosis BENIGN HYPERTENSION- Primary Essential hypertension, benign Mixed hyperlipidemia Paroxysmal atrial fibrillation (HCC) Atrial fibrillation Cardiomyopathy, unspecified type (HCC) Coronary artery disease involving [place] coronary artery of [place] heart with angina pectoris (HCC) Atrial fibrillation, unspecified type (HCC) Gout involving toe of right foot, unspecified cause, unspecified chronicity GERD without esophagitis Esophageal reflux Anemia, unspecified type Inflammatory polyarthropathy (HCC) Unspecified inflammatory polyarthropathy Headache, unspecified headache type Ear pressure, right Elevated glucose Other abnormal glucose documented [facility]* Diagnosis Amaurosis [place] of right eye- Primary Transient arterial occlusion of retina Bilateral extracranial carotid artery stenosis History of right-sided carotid endarterectomy documented in this encounter [facility] note* Diagnosis S/P carotid endarterectomy- Primary Other postprocedural status Carotid stenosis, asymptomatic, bilateral documented [facility]* Diagnosis Acute right-sided low back pain without sciatica- Primary documented [facility]* Diagnosis Acute right-sided low back pain without sciatica documented [facility] this [facility]* Diagnosis Pre-operative examination- Primary Preoperative examination, unspecified Atrial fibrillation, unspecified type (HCC) BENIGN HYPERTENSION Essential hypertension, benign Carotid stenosis, asymptomatic, bilateral Ischemic cardiomyopathy Other specified forms of chronic ischemic heart disease Mixed hyperlipidemia PAD (peripheral artery disease) (HCC) Peripheral vascular disease, unspecified Coronary artery disease involving [place] coronary artery of [place] heart with angina pectoris (HCC) Gout involving [...] fibrillation Mixed hyperlipidemia Coronary artery disease involving [place] coronary artery of [place] heart with angina pectoris (HCC) Cardiomyopathy, unspecified type (HCC) BENIGN HYPERTENSION Essential hypertension, benign Gastroesophageal reflux disease, unspecified whether esophagitis present Iron deficiency anemia, unspecified iron deficiency anemia type Acute right-sided low back pain without sciatica- Primary documented [facility]* Diagnosis Pre-operative examination- Primary Preoperative examination, unspecified Atrial fibrillation, unspecified type (HCC) BENIGN HYPERTENSION Essential hypertension, benign Carotid stenosis, asymptomatic, bilateral Ischemic cardiomyopathy Other specified forms of chronic ischemic heart disease Mixed hyperlipidemia PAD (peripheral artery disease) (HCC) Peripheral vascular disease, unspecified Coronary artery disease involving [place] coronary artery of [place] heart with angina pectoris (HCC) Gout involving [...] fibrillation Mixed hyperlipidemia Coronary artery disease involving [place] coronary artery of [place] heart with angina pectoris (HCC) Cardiomyopathy, unspecified type (HCC) BENIGN HYPERTENSION Essential hypertension, benign Gastroesophageal reflux disease, unspecified whether esophagitis present Iron deficiency anemia, unspecified iron deficiency anemia type Contact dermatitis, unspecified contact dermatitis type, unspecified trigger- Primary Acute right-sided low back pain without sciatica Bilateral impacted cerumen Impacted cerumen documented [facility] this [facility]* Diagnosis Pain Generalized pain Pre-operative examination- Primary Preoperative examination, unspecified Atrial fibrillation, unspecified type (HCC) BENIGN HYPERTENSION Essential hypertension, benign Carotid stenosis, asymptomatic, bilateral Ischemic cardiomyopathy Other specified forms of chronic ischemic heart disease Mixed hyperlipidemia PAD (peripheral artery disease) (HCC) Peripheral vascular disease, unspecified Coronary artery disease involving [place] coronary artery of [place] heart with angina pectoris (HCC) Gout involving [...] fibrillation Mixed hyperlipidemia Coronary artery disease involving [place] coronary artery of [place] heart with angina pectoris (HCC) Cardiomyopathy, unspecified type (HCC) BENIGN HYPERTENSION Essential hypertension, benign Gastroesophageal reflux disease, unspecified whether esophagitis present Iron deficiency anemia, unspecified iron deficiency anemia type documented [facility]* Diagnosis Acute cough Pre-operative examination- Primary Preoperative examination, unspecified Atrial fibrillation, unspecified type (HCC) BENIGN HYPERTENSION Essential hypertension, benign Carotid stenosis, asymptomatic, bilateral Ischemic cardiomyopathy Other specified forms of chronic ischemic heart disease Mixed hyperlipidemia PAD (peripheral artery disease) (HCC) Peripheral vascular disease, unspecified Coronary artery disease involving [place] coronary artery of [place] heart with angina pectoris (HCC) Gout involving [...] fibrillation Mixed hyperlipidemia Coronary artery disease involving [place] coronary artery of [place] heart with angina pectoris (HCC) Cardiomyopathy, unspecified type (HCC) BENIGN HYPERTENSION Essential hypertension, benign Gastroesophageal reflux disease, unspecified whether esophagitis present Iron deficiency anemia, unspecified iron deficiency anemia type [facility] Pre-operative examination- Primary Preoperative examination, unspecified Atrial fibrillation, unspecified type (HCC) BENIGN HYPERTENSION Essential hypertension, benign Carotid stenosis, asymptomatic, bilateral Ischemic cardiomyopathy Other specified forms of chronic ischemic heart disease Mixed hyperlipidemia PAD (peripheral artery disease) (HCC) Peripheral vascular disease, unspecified Coronary artery disease involving [place] coronary artery of [place] heart with angina pectoris (HCC) Gout involving [...] fibrillation Mixed hyperlipidemia Coronary artery disease involving [place] coronary artery of [place] heart with angina pectoris (HCC) Cardiomyopathy, unspecified type (HCC) BENIGN HYPERTENSION Essential hypertension, benign Gastroesophageal reflux disease, unspecified whether esophagitis present Iron deficiency anemia, unspecified iron deficiency anemia type Anemia, unspecified type- Primary documented in this encounter [facility] note* Diagnosis Acute pain of left shoulder Pre-operative examination- Primary Preoperative examination, unspecified Atrial fibrillation, unspecified type (HCC) BENIGN HYPERTENSION Essential hypertension, benign Carotid stenosis, asymptomatic, bilateral Ischemic cardiomyopathy Other specified forms of chronic ischemic heart disease Mixed hyperlipidemia PAD (peripheral artery disease) (HCC) Peripheral vascular disease, unspecified Coronary artery disease involving [place] coronary artery of [place] heart with angina pectoris (HCC) Gout involving [...] fibrillation Mixed hyperlipidemia Coronary artery disease involving [place] coronary artery of [place] heart with angina pectoris (HCC) Cardiomyopathy, unspecified type (HCC) BENIGN HYPERTENSION Essential hypertension, benign Gastroesophageal reflux disease, unspecified whether esophagitis present Iron deficiency anemia, unspecified iron deficiency anemia type documented in this encounter [facility] note* Diagnosis Pre-operative examination- Primary Preoperative examination, unspecified Atrial fibrillation, unspecified type (HCC) BENIGN HYPERTENSION Essential hypertension, benign Carotid stenosis, asymptomatic, bilateral Ischemic cardiomyopathy Other specified forms of chronic ischemic heart disease Mixed hyperlipidemia PAD (peripheral artery disease) (HCC) Peripheral vascular disease, unspecified Coronary artery disease involving [place] coronary artery of [place] heart with angina pectoris (HCC) Gout involving [...] fibrillation Mixed hyperlipidemia Coronary artery disease involving [place] coronary artery of [place] heart with angina pectoris (HCC) Cardiomyopathy, unspecified type (HCC) BENIGN HYPERTENSION Essential hypertension, benign Gastroesophageal reflux disease, unspecified whether esophagitis present Iron deficiency anemia, unspecified iron deficiency anemia type GERD without esophagitis Esophageal reflux documented in this [facility]* Diagnosis Pre-operative examination- Primary Preoperative examination, unspecified Atrial fibrillation, unspecified type (HCC) BENIGN HYPERTENSION Essential hypertension, benign Carotid stenosis, asymptomatic, bilateral Ischemic cardiomyopathy Other specified forms of chronic ischemic heart disease Mixed hyperlipidemia PAD (peripheral artery disease) (HCC) Peripheral vascular disease, unspecified Coronary artery disease involving [place] coronary artery of [place] heart with angina pectoris (HCC) Gout involving [...] fibrillation Mixed hyperlipidemia Coronary artery disease involving [place] coronary artery of [place] heart with angina pectoris (HCC) Cardiomyopathy, unspecified type (HCC) BENIGN HYPERTENSION Essential hypertension, benign Gastroesophageal reflux disease, unspecified whether esophagitis present Iron deficiency anemia, unspecified iron deficiency anemia type Sinobronchitis- Primary Unspecified sinusitis (chronic) documented in this encounter [facility]* Diagnosis Pre-operative examination- Primary Preoperative examination, unspecified Atrial fibrillation, unspecified type (HCC) BENIGN HYPERTENSION Essential hypertension, benign Carotid stenosis, asymptomatic, bilateral Ischemic cardiomyopathy Other specified forms of chronic ischemic heart disease Mixed hyperlipidemia PAD (peripheral artery disease) (HCC) Peripheral vascular disease, unspecified Coronary artery disease involving [place] coronary artery of [place] heart with angina pectoris (HCC) Gout involving [...] fibrillation Mixed hyperlipidemia Coronary artery disease involving [place] coronary artery of [place] heart with angina pectoris (HCC) Cardiomyopathy, unspecified type (HCC) BENIGN HYPERTENSION Essential hypertension, benign Gastroesophageal reflux disease, unspecified whether esophagitis present Iron deficiency anemia, unspecified iron deficiency anemia type Chronic 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- Primary documented in this encounter [facility] note* Diagnosis Pre-operative examination- Primary Preoperative examination, unspecified Atrial fibrillation, unspecified type (HCC) BENIGN HYPERTENSION Essential hypertension, benign Carotid stenosis, asymptomatic, bilateral Ischemic cardiomyopathy Other specified forms of chronic ischemic heart disease Mixed hyperlipidemia PAD (peripheral artery disease) (HCC) Peripheral vascular disease, unspecified Coronary artery disease involving [place] coronary artery of [place] heart with angina pectoris (HCC) Gout involving [...] fibrillation Mixed hyperlipidemia Coronary artery disease involving [place] coronary artery of [place] heart with angina pectoris (HCC) Cardiomyopathy, unspecified type (HCC) BENIGN HYPERTENSION Essential hypertension, benign Gastroesophageal reflux disease, unspecified whether esophagitis present Iron deficiency anemia, unspecified iron deficiency anemia type Chronic 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- Primary documented in this encounter [facility] note* Diagnosis Pre-operative examination- Primary Preoperative examination, unspecified Atrial fibrillation, unspecified type (HCC) BENIGN HYPERTENSION Essential hypertension, benign Carotid stenosis, asymptomatic, bilateral Ischemic cardiomyopathy Other specified forms of chronic ischemic heart disease Mixed hyperlipidemia PAD (peripheral artery disease) (HCC) Peripheral vascular disease, unspecified Coronary artery disease involving [place] coronary artery of [place] heart with angina pectoris (HCC) Gout involving [...] fibrillation Mixed hyperlipidemia Coronary artery disease involving [place] coronary artery of [place] heart with angina pectoris (HCC) Cardiomyopathy, unspecified type (HCC) BENIGN HYPERTENSION Essential hypertension, benign Gastroesophageal reflux disease, unspecified whether esophagitis present Iron deficiency anemia, unspecified iron deficiency anemia type Preop examination- Primary Preoperative examination, unspecified Chronic 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 GERD without esophagitis Esophageal reflux BENIGN HYPERTENSION Essential hypertension, benign Paroxysmal atrial fibrillation (HCC) Atrial fibrillation Coronary artery disease involving [place] coronary artery of [place] heart with angina pectoris (HCC) Mixed hyperlipidemia Gout involving toe of right foot, unspecified cause, unspecified chronicity Anemia, unspecified type Bilateral leg edema Edema documented [facility]* Diagnosis Pre-operative examination- Primary Preoperative examination, unspecified Atrial fibrillation, unspecified type (HCC) BENIGN HYPERTENSION Essential hypertension, benign Carotid stenosis, asymptomatic, bilateral Ischemic cardiomyopathy Other specified forms of chronic ischemic heart disease Mixed hyperlipidemia PAD (peripheral artery disease) (HCC) Peripheral vascular disease, unspecified Coronary artery disease involving [place] coronary artery of [place] heart with angina pectoris (HCC) Gout involving [...] fibrillation Mixed hyperlipidemia Coronary artery disease involving [place] coronary artery of [place] heart with angina pectoris (HCC) Cardiomyopathy, unspecified type (HCC) BENIGN HYPERTENSION Essential hypertension, benign Gastroesophageal reflux disease, unspecified whether esophagitis present Iron deficiency anemia, unspecified iron deficiency anemia type Hyponatremia- Primary Hyposmolality and/or hyponatremia documented in this [facility]* Diagnosis Pre-operative examination- Primary Preoperative examination, unspecified Atrial fibrillation, unspecified type (HCC) BENIGN HYPERTENSION Essential hypertension, benign Carotid stenosis, asymptomatic, bilateral Ischemic cardiomyopathy Other specified forms of chronic ischemic heart disease Mixed hyperlipidemia PAD (peripheral artery disease) (HCC) Peripheral vascular disease, unspecified Coronary artery disease involving [place] coronary artery of [place] heart with angina pectoris (HCC) Gout involving [...] fibrillation Mixed hyperlipidemia Coronary artery disease involving [place] coronary artery of [place] heart with angina pectoris (HCC) Cardiomyopathy, unspecified [...] unspecified type (HCC) Coronary artery disease involving [place] coronary artery of [place] heart with angina pectoris (HCC) Iron deficiency anemia, unspecified iron deficiency anemia type Inflammatory polyarthropathy (HCC) Unspecified inflammatory polyarthropathy Ischemic cardiomyopathy Other specified forms of chronic ischemic heart disease Bilateral leg edema Edema Cardiomyopathy, unspecified type (HCC) Elevated glucose Other abnormal glucose Non-traumatic compression fracture of L5 lumbar vertebra with routine healing, subsequent encounter documented in this [facility]* Diagnosis Pre-operative examination- Primary Preoperative examination, unspecified Atrial fibrillation, unspecified type (HCC) BENIGN HYPERTENSION Essential hypertension, benign Carotid stenosis, asymptomatic, bilateral Ischemic cardiomyopathy Other specified forms of chronic ischemic heart disease Mixed hyperlipidemia PAD (peripheral artery disease) (HCC) Peripheral vascular disease, unspecified Coronary artery disease involving [place] coronary artery of [place] heart with angina pectoris (HCC) Gout involving [...] fibrillation Mixed hyperlipidemia Coronary artery disease involving [place] coronary artery of [place] heart with angina pectoris (HCC) Cardiomyopathy, unspecified type (HCC) BENIGN HYPERTENSION Essential hypertension, benign Gastroesophageal reflux disease, unspecified whether esophagitis present Iron deficiency anemia, unspecified iron deficiency anemia type Acute pain of right knee- Primary documented [facility]* Diagnosis Pre-operative examination- Primary Preoperative examination, unspecified Atrial fibrillation, unspecified type (HCC) BENIGN HYPERTENSION Essential hypertension, benign Carotid stenosis, asymptomatic, bilateral Ischemic cardiomyopathy Other specified forms of chronic ischemic heart disease Mixed hyperlipidemia PAD (peripheral artery disease) (HCC) Peripheral vascular disease, unspecified Coronary artery disease involving [place] coronary artery of [place] heart with angina pectoris (HCC) Gout involving [...] fibrillation Mixed hyperlipidemia Coronary artery disease involving [place] coronary artery of [place] heart with angina pectoris (HCC) Cardiomyopathy, unspecified type (HCC) BENIGN HYPERTENSION Essential hypertension, benign Gastroesophageal reflux disease, unspecified whether esophagitis present Iron deficiency anemia, unspecified iron deficiency anemia type Chronic gout of left knee, unspecified cause- Primary documented [facility]* Diagnosis Pre-operative examination- Primary Preoperative examination, unspecified Atrial fibrillation, unspecified type (HCC) BENIGN HYPERTENSION Essential hypertension, benign Carotid stenosis, asymptomatic, bilateral Ischemic cardiomyopathy Other specified forms of chronic ischemic heart disease Mixed hyperlipidemia PAD (peripheral artery disease) (HCC) Peripheral vascular disease, unspecified Coronary artery disease involving [place] coronary artery of [place] heart with angina pectoris (HCC) Gout involving [...] fibrillation Mixed hyperlipidemia Coronary artery disease involving [place] coronary artery of [place] heart with angina pectoris (HCC) Cardiomyopathy, unspecified type (HCC) BENIGN HYPERTENSION Essential hypertension, benign Gastroesophageal reflux disease, unspecified whether esophagitis present Iron deficiency anemia, unspecified iron deficiency anemia type URI, acute- Primary Acute upper respiratory infections of unspecified site Acute cough Acute cough documented in this [facility]* Diagnosis Pre-operative examination- Primary Preoperative examination, unspecified Atrial fibrillation, unspecified type (HCC) BENIGN HYPERTENSION Essential hypertension, benign Carotid stenosis, asymptomatic, bilateral Ischemic cardiomyopathy Other specified forms of chronic ischemic heart disease Mixed hyperlipidemia PAD (peripheral artery disease) (HCC) Peripheral vascular disease, unspecified Coronary artery disease involving [place] coronary artery of [place] heart with angina pectoris (HCC) Gout involving [...] fibrillation Mixed hyperlipidemia Coronary artery disease involving [place] coronary artery of [place] heart with angina pectoris (HCC) Cardiomyopathy, unspecified type (HCC) BENIGN HYPERTENSION Essential hypertension, benign Gastroesophageal reflux disease, unspecified whether esophagitis present Iron deficiency anemia, unspecified iron deficiency anemia type Acute cough documented in this [facility]* Diagnosis Pre-operative examination- Primary Preoperative examination, unspecified Atrial fibrillation, unspecified type (HCC) BENIGN HYPERTENSION Essential hypertension, benign Carotid stenosis, asymptomatic, bilateral Ischemic cardiomyopathy Other specified forms of chronic ischemic heart disease Mixed hyperlipidemia PAD (peripheral artery disease) Peripheral vascular disease, unspecified Coronary artery disease involving [place] coronary artery of [place] heart with angina pectoris Gout involving toe of right foot, unspecified cause, unspecified chronicity Inflammatory polyarthropathy (HCC) Unspecified inflammatory polyarthropathy History of arthritis Personal history of arthritis Former smoker Personal history of tobacco use, presenting hazards to health Anemia, unspecified type Carotid stenosis, asymptomatic, bilateral- Primary Preop examination Preoperative examination, unspecified Paroxysmal atrial fibrillation (HCC) Atrial fibrillation Mixed hyperlipidemia Coronary artery disease involving [place] coronary artery of [place] heart with angina pectoris Cardiomyopathy, unspecified type (HCC) BENIGN HYPERTENSION Essential hypertension, benign Gastroesophageal reflux disease, unspecified whether esophagitis present Iron deficiency anemia, unspecified iron deficiency anemia type APPOINTMENT CANCELLED- Primary [facility] Diagnostic Procedure Only (Routine) - Authorized Specialty Diagnoses / Procedures Referred By Contfreay t Referred To Contact XR IMAGING Diagnoses Pain Procedures XR FOOT GENERAL 3V AP/LAT/OBL RIGHT RADEX FOOT COMPLETE MINIMUM 3 VIEWS Karina Cline [address] [place] [place] [address] Xr Imaging Referral ID Status Reason Start Date Expiration Date Visits Requested Visits Authorized [id number] Authorized Auto-Generat ed Referral 11/16/2021 12/16/2022 1 1 [facility] for referral (narrative)* Diagnostic Procedure Only (Routine) - Closed Specialty Diagnoses / Procedures Referred By Contac t Referred To Contact XR IMAGING Diagnoses Pain Procedures XR FOOT GENERAL 3V AP/LAT/OBL RIGHT RADEX FOOT COMPLETE MINIMUM 3 VIEWS Karina Cline [address] [place] [address] Xr Imaging Referral ID Status Reason Start Date Expiration Date V isits Requested Visits Authorized [id number] Closed Auto-Generate d Referral 11/16/2021 12/16/2022 1 1 [facility] for referral (narrative)* Diagnostic Procedure Only (Routine) - Pending Review Specialty Diagnoses / Procedures Referred By Contac t Referred To Contact XR IMAGING Diagnoses Pain in left foot Procedures XR FOOT GENERAL 3V AP/LAT/OBL LEFT RADEX FOOT COMPLETE MINIMUM 3 VIEWS Karina Cline[address] [place] [address] Xr Imaging Referral ID Status Reason Start Date Expiration Date Visits Requested Visits Authorized [id number] Pending Review Auto-Generat ed Referral 04/16/2022 05/16/2023 1 1 [facility] for referral (narrative)* Diagnostic Procedure Only (Routine) - Closed Specialty Diagnoses / Procedures Referred By Contac t Referred To Contact XR IMAGING Diagnoses Pain in left foot Procedures XR FOOT GENERAL 3V AP/LAT/OBL LEFT RADEX FOOT COMPLETE MINIMUM 3 VIEWS Karina Cline [address] [place] [address] Xr Imaging Referral ID Status Reason Start Date Expiration Date V isits Requested Visits Authorized [id number] Closed Auto-Generate d Referral 04/16/2022 05/16/2023 1 1 [facility] for referral (narrative)* Diagnostic Procedure Only (Routine) - Authorized Specialty Diagnoses / Procedures Referred By Contac t Referred To Contact US IMAGING Diagnoses Enlarged thyroid Procedures US THYROID/PARATHYROID US SOFT TISSUE HEAD & NECK REAL TIME IMGE DOCM Ruth Miranda APRN.THRESHING MACHINE OPERATOR [address] [place] [address] Us Imaging Referral ID Status Reason Start Date Expiration Date Visits Requested Visits Authorized [id number] Authorized Auto-Generat ed Referral 07/21/2022 08/20/[address] [facility] for referral (narrative)* Diagnostic Procedure Only (Urgent) - Pending Review Specialty Diagnoses / Procedures Referred By Contac t Referred To Contact XR IMAGING Diagnoses Toe swelling Procedures XR FOOT GENERAL 3V AP/LAT/OBL RIGHT RADEX FOOT COMPLETE MINIMUM 3 VIEWS Royce Rivera APRN.THRESHING MACHINE OPERATOR [address] [place] [address] Xr Imaging Referral ID Status Reason Start Date Expiration Date Visits Requested Visits Authorized [id number] Pending Review Auto-Generat ed Referral 08/01/2022 08/31/[address] [facility] for referral (narrative)* Diagnostic Procedure Only (Routine) - Pending Review Specialty Diagnoses / Procedures Referred By Contac t Referred To Contact MOLECULAR & FUNCTIONAL IMAGING Diagnoses Atrial fibrillation, unspecified type (HCC) Shortness of breath Procedures NM CARDIAC PERF STRESS/PHARM MYOCARDIAL SPECT MULTIPLE STUDIES Ruth Miranda APRN.THRESHING MACHINE OPERATOR [address] [place] [address] [facility] [address] [place] [address] Referral ID Status Reason Start Date Expiration Date Visits Requested Visits Authorized [id number] Pending Review Auto-Generat ed Referral 09/06/2022 10/06/2023 1 1 [facility] for referral (narrative)* Diagnostic Procedure Only (Urgent) - Closed Specialty Diagnoses / Procedures Referred By Contac t Referred To Contact XR IMAGING Diagnoses Pain Procedures XR FOOT GENERAL 3V AP/LAT/OBL LEFT RADEX FOOT COMPLETE MINIMUM 3 VIEWS Ita Villanueva APRN.CNP [address] [place] [address] Xr Imaging Referral ID Status Reason Start Date Expiration Date V isits Requested Visits Authorized [id number] Closed Auto-Generate d Referral 09/27/2022 10/27/2023 1 1 [facility] for referral (narrative)* Diagnostic Procedure Only (Routine) - Closed Specialty Diagnoses / Procedures Referred By Contac t Referred To Contact XR IMAGING Diagnoses Acute gout involving toe of left foot, unspecified cause Pain in left foot Procedures XR FOOT GENERAL 3V AP/LAT/OBL LEFT RADEX FOOT COMPLETE MINIMUM 3 VIEWS Karina Cline [address] [place] [address] Xr Imaging Referral ID Status Reason Start Date Expiration Date V isits Requested Visits Authorized [id number] Closed Auto-Generate d Referral 10/11/2022 11/10/2023 1 1 [facility] for referral (narrative)* Outpatient Procedure (Routine) - Closed Specialty Diagnoses / Procedures Referred By Contac t Referred To Contact [facility] Diagnoses Persistent atrial fibrillation (HCC) Dyspnea, unspecified type Procedures ECHO ECHO TTHRC R-T 2D W/WOM-MODE COMPL SPEC&COLR D Timothy Walker MD [address] [place] [address] [facility] [address] [place] [address] Referral ID Status Reason Start Date Expiration Date V isits Requested Visits Authorized [id number] Closed Auto-Generate d Referral 03/22/2023 12/30/2023 1 1 [facility] for referral (narrative)* Diagnostic Procedure Only (Routine) - Closed Specialty Diagnoses / Procedures Referred By Contac t Referred To Contact XR IMAGING Diagnoses Acute idiopathic gout, unspecified site Pain in right foot Procedures XR FOOT GENERAL 3V AP/LAT/OBL RIGHT RADEX FOOT COMPLETE MINIMUM 3 VIEWS Karina Cline [address] [place] [address] [place] [address] Referral ID Status Reason Start Date Expiration Date V isits Requested Visits Authorized [id number] Closed Auto-Generate d Referral 11/03/2022 12/03/2023 1 1 [facility] for referral (narrative)* Diagnostic Procedure Only (Routine) - Closed Specialty Diagnoses / Procedures Referred By Contac t Referred To Contact US IMAGING Diagnoses Tenderness of neck Procedures US HEAD/NECK SOFT TISSUE OTHER US SOFT TISSUE HEAD & NECK REAL TIME IMGE DOCRuth Nelson APRN.THRESHING MACHINE OPERATOR [address] [place] [address] [place] [address] Referral ID Status Reason Start Date Expiration Date V isits Requested Visits Authorized [id number] Closed Auto-Generate d Referral 04/06/2023 05/05/2024 1 1 * Diagnostic Procedure Only (Routine) - Closed Specialty Diagnoses / Procedures Referred By Contac t Referred To Contact US IMAGING Diagnoses Enlarged thyroid Procedures US THYROID/PARATHYROID US SOFT TISSUE HEAD & NECK REAL TIME IMGE Ruth Gonzalez APRN.THRESHING MACHINE OPERATOR [address] [place] [address] [place] [address] Referral ID Status Reason Start Date Expiration Date V isits Requested Visits Authorized [id number] Closed Auto-Generate d Referral 04/06/2023 05/05/2024 1 1 [facility] for referral (narrative)* Diagnostic Procedure Only (Routine) - Closed Specialty Diagnoses / Procedures [facility] To [facility]AG[facility] Diagnoses Enlarged thyroid Procedures US THYROID/PARATHYROID US SOFT TISSUE HEAD & NECK REAL TIME IMGE Ruth Gonzalez APRN.THRESHING MACHINE OPERATOR [address] [place] [address] [place] [address] Referral ID Status Reason Start Date Expiration Date V isits Requested Visits Authorized [id number] Closed Auto-Generate d Referral 07/21/2022 08/20/2023 1 1 [facility] for referral (narrative)* Diagnostic Procedure Only (Urgent) - Closed Specialty Diagnoses / Procedures [facility] Referred To Contact XR IMAGING Diagnoses Acute pain of left knee Procedures XR KNEE INJURY 4V AP/LAT/OBLS LEFT RADIOLOGIC EXAM KNEE COMPLETE 4/MORE VIEWS Sumaya Alcazar APRN.THRESHING MACHINE OPERATOR [address] [place] [address] [place] [address] Referral ID Status Reason Start Date Expiration Date V isits Requested Visits Authorized [id number] Closed Auto-Generate d Referral 09/02/2023 10/01/2024 1 1 [facility] for referral (narrative)* Outpatient Procedure (Routine) - Authorized Specialty Diagnoses / Procedures [facility] Diagnoses Vision changes Amaurosis fugax Procedures US CAROTID ARTERIES TERRY VAS LAB DUPLEX SCAN EXTRACRANIAL ART COMPL BI STUDY Federico Vigil MD [address] [place] [address] [facility] [address] [place] [address] Referral ID Status Reason Start Date Expiration Date Visits Requested Visits Authorized [id number] Authorized Auto-Generat ed Referral 11/10/2023 11/09/2024 1 1 [facility] for referral (narrative)* Diagnostic Procedure Only (Routine) - Pending Review Specialty Diagnoses / Procedures Referred By Nupur fischer Referred To Contact US IMAGING Diagnoses Bilateral extracranial carotid artery stenosis Amaurosis fugax Occlusion and stenosis of unspecified carotid artery Procedures US CAROTID BILATERAL Phi Arreguin MD [address] [employer] [address] [place] [address] [place] [address] Referral ID Status Reason Start Date Expiration Date Visits Requested Visits Authorized [id number] Pending Review Auto-Generat ed Referral 11/17/2023 12/16/2024 1 1 * MRI/CT (Routine) - Closed Specialty Diagnoses / Procedures Referred By Nupur fischer Referred To Contact CT IMAGING Diagnoses Amaurosis fugax Procedures CTA NECK W IVCON CT ANGIOGRAPHY NECK W/CONTRAST/NONCONTRAST Phi Arreguin MD 1 [employer] [address] [place] [address] [place] [address] Referral ID Status Reason Start Date Expiration Date Visits Re quested Visits Authorized [id number] Closed 11/18/2023 07/17/2024 1 1 * MRI/CT (Routine) - Closed Specialty Diagnoses / Procedures Referred By Nupur fischer Referred To Contact CT IMAGING Diagnoses Occlusion and stenosis of unspecified carotid artery Procedures CTA HEAD W IVCON CT ANGIOGRAPHY HEAD W/CONTRAST/NONCONTRAST Phi Arreguin MD 1 [employer] [address] [place] [address] [place] [address] Referral ID Status Reason Start Date Expiration Date Visits Re quested Visits Authorized [id number] Closed 11/18/2023 07/17/2024 1 1 [facility] for referral (narrative)* Outpatient Procedure (Routine) - Pending Review Specialty Diagnoses / Procedures Referred By Nupur fischer Referred To Contact [facility] Diagnoses Bilateral extracranial carotid artery stenosis Procedures ECG COMPLETE ECG ROUTINE ECG W/LEAST 12 LDS W/I&R Elena Watkins, AL.THRESHING MACHINE OPERATOR [address] [place] [address] [facility] [address] [place] [address] Referral ID Status Reason Start Date Expiration Date Visits Requested Visits Authorized [id number] Pending Review Auto-Generat ed Referral 12/09/2023 12/08/2024 1 1 [facility] for referral (narrative)* Diagnostic Procedure Only (Routine) - New Request Specialty Diagnoses / Procedures Referred By Contac t Referred To Contact US IMAGING Diagnoses Bilateral extracranial carotid artery stenosis History of right-sided carotid endarterectomy Procedures US CAROTID BILATERAL Phi Arreguin MD [address] [facility] [place] [address] [place] [address] Referral ID Status Reason Start Date Expiration Date Visits Requested Visits Authorized [id number] New Request Auto-Generat ed Referral 02/26/2024 02/24/2025 1 1 [facility] for referral (narrative)* Outpatient Procedure (Routine) - New Request Specialty Diagnoses / Procedures Referred By Contac t Referred To Contact [facility] Diagnoses S/P carotid endarterectomy Carotid stenosis, asymptomatic, bilateral Procedures US CAROTID ARTERIES TERRY VAS LAB DUPLEX SCAN EXTRACRANIAL ART COMPL BI STUDY Phi Arreguin MD [address] [facility] [place] [address] [facility] [address] [place] [address] Referral ID Status Reason Start Date Expiration Date Visits Requested Visits Authorized [id number] New Request Auto-Generat ed Referral 02/23/2024 02/22/2025 1 1 [facility] for referral (narrative)* Diagnostic Procedure Only (Routine) - New Request Specialty Diagnoses / Procedures Referred By Contac t Referred To Contact XR IMAGING Diagnoses Acute right-sided low back pain without sciatica Procedures XR LUMBAR GENERAL 3V AP/LAT/L5-S1 RADEX SPINE LUMBOSACRAL 2/3 VIEWS Federico Vigil MD [address] [place] [address] [place] [address] Referral ID Status Reason Start Date Expiration Date Visits Requested Visits Authorized [id number] New Request Auto-Generat ed Referral 02/27/2024 03/28/2025 1 1 [facility] for referral (narrative)* Diagnostic Procedure Only (Urgent) - Closed Specialty Diagnoses / Procedures Referred By Contac t Referred To Contact XR IMAGING Diagnoses Pain Procedures XR FOOT GENERAL 3V AP/LAT/OBL LEFT RADEX FOOT COMPLETE MINIMUM 3 VIEWS Ita Villanueva APRN.THRESHING MACHINE OPERATOR [address] [place] [address] [place] [address] Referral ID Status Reason Start Date Expiration Date V isits Requested Visits Authorized [id number] Closed Auto-Generate d Referral 09/27/2022 10/27/2023 1 1 [facility] for referral (narrative)* Diagnostic Procedure Only (Urgent) - Closed Specialty Diagnoses / Procedures Referred By Contac t Referred To Contact XR IMAGING Diagnoses Acute pain of right knee Procedures XR KNEE GENERAL 4V AP BOTH/PA BOTH/LAT/MERC LEFT RADIOLOGIC EXAM KNEE COMPLETE 4/MORE VIEWS Sumaya Alcazar APRN.THRESHING MACHINE OPERATOR [address] [place] [address] [place] [address] Referral ID Status Reason Start Date Expiration Date V isits Requested Visits Authorized [id number] Closed Auto-Generate d Referral 08/24/2024 09/23/2025 1 1 [facility] for referral (narrative)No reason for [facility] Narrative* Diagnostic Procedure Only (Routine) - Closed Specialty Diagnoses / Procedures Referred By Contac t Referred To Contact XR IMAGING Diagnoses Pain Procedures XR FOOT GENERAL 3V AP/LAT/OBL RIGHT RADEX FOOT COMPLETE MINIMUM 3 VIEWS Karina Cline[address] [place] [address] Xr Imaging Referral ID Status Reason Start Date Expiration Date V isits Requested Visits Authorized [id number] Closed Auto-Generate d Referral 11/16/2021 12/16/2022 1 1 [facility] for visit Narrative* Diagnostic Procedure Only (Routine) - Closed Specialty Diagnoses / Procedures Referred By Contac t Referred To Contact XR IMAGING Diagnoses Pain in left foot Procedures XR FOOT GENERAL 3V AP/LAT/OBL LEFT RADEX FOOT COMPLETE MINIMUM 3 VIEWS Karina Cline[address] [place] [address] Xr Imaging Referral ID Status Reason Start Date Expiration Date V isits Requested Visits Authorized [id number] Closed Auto-Generate d Referral 04/16/2022 05/16/2023 1 1 [facility] for visit Narrative* Outpatient Procedure (Routine) - Closed Specialty Diagnoses / Procedures Referred By Contac t Referred To Contact [facility] Diagnoses Persistent atrial fibrillation (HCC) Dyspnea, unspecified type Procedures ECHO ECHO TTHRC R-T 2D W/WOM-MODE COMPL SPEC&COLR D Timothy Walker MD [address] [place] [address] [facility] [address] [place] [address] Referral ID Status Reason Start Date Expiration Date V isits Requested Visits Authorized [id number] Closed Auto-Generate d Referral 03/22/2023 12/30/2023 1 1 [facility] for visit Narrative* Diagnostic Procedure Only (Routine) - Closed Specialty Diagnoses / Procedures Referred By Contac t Referred To Contact XR IMAGING Diagnoses Acute idiopathic gout, unspecified site Pain in right foot Procedures XR FOOT GENERAL 3V AP/LAT/OBL RIGHT RADEX FOOT COMPLETE MINIMUM 3 VIEWS Karina [address] [place] [address] [place] [address] Referral ID Status Reason Start Date Expiration Date V isits Requested Visits Authorized [id number] Closed Auto-Generate d Referral 11/03/2022 12/03/2023 1 1 [facility] for visit Narrative* Diagnostic Procedure Only (Routine) - Closed Specialty Diagnoses / Procedures Referred By Contac t Referred To Contact XR IMAGING Diagnoses Acute right-sided low back pain without sciatica Procedures XR LUMBAR GENERAL 3V AP/LAT/L5-S1 RADEX SPINE LUMBOSACRAL 2/3 VIEWS Federico Vigil MD [address] [place] [address] [place] [address] Referral ID Status Reason Start Date Expiration Date V isits Requested Visits Authorized [id number] Closed Auto-Generate d Referral 02/27/2024 03/28/2025 1 1 [facility] for visit Narrative* Diagnostic Procedure Only (Urgent) - Closed Specialty Diagnoses / Procedures Referred By Contac t Referred To Contact XR IMAGING Diagnoses Acute pain of left knee Procedures XR KNEE INJURY 4V AP/LAT/OBLS LEFT RADIOLOGIC EXAM KNEE COMPLETE 4/MORE VIEWS Sumaya Alcazar APRN.THRESHING MACHINE OPERATOR [address] [place] [address] [place] [address] Referral ID Status Reason Start Date Expiration Date V isits Requested Visits Authorized [id number] Closed Auto-Generate d Referral 09/02/2023 10/01/2024 1 1 [facility] for visit Narrative* Diagnostic Procedure Only (Urgent) - Closed Specialty Diagnoses / Procedures Referred By Contac t Referred To Contact XR IMAGING Diagnoses Pain Procedures XR FOOT GENERAL 3V AP/LAT/OBL LEFT RADEX FOOT COMPLETE MINIMUM 3 VIEWS Ita Villanueva APRN.THRESHING MACHINE OPERATOR [address] [place] [address] [place] [address] Referral ID Status Reason Start Date Expiration Date V isits Requested Visits Authorized [id number] Closed Auto-Generate d Referral 09/27/2022 10/27/2023 1 1 [facility] for visit Narrative* Diagnostic Procedure Only (Urgent) - Closed Specialty Diagnoses / Procedures Referred By Contac t Referred To Contact XR IMAGING Diagnoses Acute pain of right knee Procedures XR KNEE GENERAL 4V AP BOTH/PA BOTH/LAT/MERC RIGHT RADIOLOGIC EXAM KNEE COMPLETE 4/MORE VIEWS Sumaya Alcazar, BOARD CERTIFIED ARTS THERAPIST.THRESHING MACHINE OPERATOR [address] [place] [address] Phone: tel: fax: [place] [address] Referral ID Status Reason Start Date Expiration Date V isits Requested Visits Authorized [id number] Closed Auto-Generate d Referral 08/24/2024 09/23/2025 1 1 [facility] Summary Purpose Family History No Family History [...] FoundDocuments on File Type Date Recorded Patient Detention Attendant Expl anation Advance Directive(s) 12/01/2020 9:29 AM Advance Directive(s) 12/01/2020 9:32 AM Advance Directive(s) 11/13/2020 10:53 AM Advance Directive(s) 09/08/2016 6:36 AM Documents on File Type Date Recorded Patient Detention Attendant Expl anation Advance Directive(s) 12/01/2020 9:29 AM Advance Directive(s) 12/01/2020 9:32 AM Advance Directive(s) 11/13/2020 10:53 AM Advance Directive(s) 09/08/2016 6:36 AM Advance Directive Response Recorded Date/ Time Living Will No July 03 11:37pm Power of Stocking Inspector No July 03, 2022 11:37pm Advance Directive Response Recorded Date/ Time Living Will No July 04 12:37am Power of Stocking Inspector No July 04, 2022 12:37am Advance Directive Response Recorded Date/ Time Advance Directives No October 06 8:30am Living Will No October 06, 2022 8:30am Power of Stocking Inspector No October 06 8:30am Advance Directive Response Recorded Date/ Time Advance Directives No October 06, 023 8:30am Living Will No December 25, 2022 6:37am Power of Stocking Inspector No December 25 6:37am Advance Directive Response Recorded Date/ Time Advance Directives No October 06, 023 8:30am Living Will No May 10 9:51pm Power of Stocking Inspector No May 10, 2023 9:51pm Advance Directive Response Recorded Date/ Time Advance Directives No June 10:21am Living Will No July 31 3:48pm Power of Stocking Inspector No July 31, 2023 3:48pm Advance Directive Response Recorded Date/ Time Advance Directives No June 11:21am Living Will No July 31 4:48pm Power of Stocking Inspector No July 31, 2023 4:48pm Advance Directive Response Recorded Date/ Time Living Will No July 31 4:48pm Do you have a Healthcare Power of Stocking Inspector? No July 31, 2023 4:48pm Advance Directives No June 11:21am Advance Directive Response Recorded Date/ Time Advance Directives No June 11:21am Advance Directive Response Recorded Date/ Time Advance Directives on File No January 07, 2025 8:30am Living Will No January 08, 2025 7:53am Do you have a Healthcare Power of Stocking Inspector? 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 Arreguin Oct 12:34pm LUMBAR SPONDYLOSIS November 21, 2024 1:08pm [...] 2024 10:55am Carotid Artery, coming from Dr. Arreguin Apr 2024 12:34pm LUMBAR SPONDYLOSIS November 21, 2024 1:08pm MURMUR November 28, 2024 9:34a m EORDER November 29, 2024 2:11p m Chief Complaint Admit Date 6 M FU August 20, 2024 9 :40am LUMBAR SPINE September 14, 2024 10:44am Xray room 2 September 14, 2024 10:55am Carotid Artery, coming from Dr. Arreguin Apr 2024 12:34pm LUMBAR SPONDYLOSIS November 21, [...] 2024 10:55am Carotid Artery, coming from Dr. Arreguin Apr 2024 12:34pm LUMBAR SPONDYLOSIS November 21, [...] 2024 10:55am Carotid Artery, coming from Dr. Arreguin Apr 2024 12:34pm LUMBAR SPONDYLOSIS November 21, [...] 2024 1:57 pm Chief Complaint Admit Date LUMBAR SPINE September 14, 2024 10:44am Xray room 2 September 14, 2024 10:55am Carotid Artery, coming from Dr. Arreguin Apr 2024 12:34pm LUMBAR SPONDYLOSIS November 21, 2024 1:08pm MURMUR November 28, 2024 9:34a m EORDER November 29, 2024 2:11p m Atrial fibrillation December 11, 2024 1:57p m S/P R CEA December 12, 2024 12:30 pm COMPRESSION FRACTURE December 13, 2024 12:3 3pm CAD CARDIOMYOPATHY January 08, 2025 7:27 am Chief Complaint Admit Date Carotid Artery, coming from Dr. Arreguin Apr 2024 12:34pm LUMBAR SPONDYLOSIS November 21, 2024 1:08pm MURMUR November 28, 2024 9:34a m EORDER November 29, 2024 2:11p m Atrial fibrillation December 11, 2024 1:57p m S/P R CEA December 12, 2024 12:30 pm COMPRESSION FRACTURE December 13, 2024 12:3 3pm CAD CARDIOMYOPATHY January 08, 2025 7:27 am INT LABS January 21, 2025 12:46 pm see clinical notes January 22, 2025 8:28a m Reason for Visit Admit Date Carotid stenosis, bilateral November 14, 2024 12:34pm [...] Mitral insufficiency December 11, 2024 1:57 pm Anemia January 22, 2025 8:28a m Atrial fibrillation January 22, 2025 8:28a m CAD (coronary artery disease) January 22, 2025 8:28am Cardiomyopathy January 22, 2025 8:28a m Carotid stenosis, bilateral January 22 8:28am Dyslipidemia January 22, 2025 8:28a m Essential (primary) hypertension January 8:28am Mitral insufficiency January 22, 2025 8:28 am Chief Complaint Admit Date Carotid Artery, coming from Dr. Arreguin Apr 2024 12:34pm LUMBAR SPONDYLOSIS November 21, 2024 1:08pm MURMUR November 28, 2024 9:34a m EORDER November 29, 2024 2:11p m Atrial fibrillation December 11, 2024 1:57p m S/P R CEA December 12, 2024 12:30 pm COMPRESSION FRACTURE December 13, 2024 12:3 3pm CAD CARDIOMYOPATHY January 08, 2025 7:27 am INT LABS January 21, 2025 12:46 pm see clinical notes January 22, 2025 8:28a m LUMBAR SPOND February 01, 2025 2:56 pm Chief Complaint Admit Date Carotid Artery, coming from Dr. Arreguin Apr 2024 12:34pm LUMBAR SPONDYLOSIS November 21, 2024 1:08pm MURMUR November 28, 2024 9:34a m EORDER November 29, 2024 2:11p m Atrial fibrillation December 11, 2024 1:57p m S/P R CEA December 12, 2024 12:30 pm COMPRESSION FRACTURE December 13, 2024 12:3 3pm CAD CARDIOMYOPATHY January 08, 2025 7:27 am INT LABS January 21, 2025 12:46 pm see clinical notes January 22, 2025 8:28a m LUMBAR SPOND February 01, 2025 2:56 pm ESTABLISH March 07, 2025 9: 40am Reason for Visit Admit Date Carotid stenosis, bilateral November 14, 2024 12:34pm [...] Mitral insufficiency December 11, 2024 1:57 pm Anemia January 22, 2025 8:28a m Atrial fibrillation January 22, 2025 8:28a m CAD (coronary artery disease) January 22, 2025 8:28am Cardiomyopathy January 22, 2025 8:28a m Carotid stenosis, bilateral January 22 8:28am Dyslipidemia January 22, 2025 8:28a m Essential (primary) hypertension January 8:28am Mitral insufficiency January 22, 2025 8:28 am Bradycardia March 07, 2025 9: 40am Atrial fibrillation March 07, 2025 9: 40am CAD (coronary artery disease) February 9:40am Cardiomyopathy March 07, 2025 9: 40am Essential (primary) hypertension March 07, 2025 9:40am Chief Complaint Admit Date CAD CARDIOMYOPATHY January 08, 2025 7:27 am INT LABS January 21, 2025 12:46 pm see clinical notes January 22, 2025 8:28a m LUMBAR SPOND February 01, 2025 2:56 pm ESTABLISH March 07, 2025 9: 40am INT LABS March 27, 2025 8:40am Reason for Visit Admit Date Anemia January 22, 2025 8:28a m Atrial fibrillation January 22, 2025 8:28a m CAD (coronary artery disease) January 22, 2025 8:28am Cardiomyopathy January 22, 2025 8:28a m Carotid stenosis, bilateral January 22 8:28am Dyslipidemia January 22, 2025 8:28a m Essential (primary) hypertension January 8:28am Mitral insufficiency January 22, 2025 8:28 am Bradycardia March 07, 2025 9: 40am Atrial fibrillation March 07, 2025 9: 40am CAD (coronary artery disease) February 9:40am Cardiomyopathy March 07, 2025 9: 40am Essential (primary) hypertension March 07, 2025 9:40am Reason for Referral Specialty Diagnoses / Procedures Referred By Contac t Referred To Contact General Surgery Diagnoses Pain with swallowing Procedures CONSULT TO GENERAL SURGERY OFFICE/OUTPATIENT [facility] 60-74 MINUTES TannRuth munoz APRN.THRESHING MACHINE OPERATOR [address] [place] [address] Referral ID Status Reason Start Date Expiration Date Visits Requested Visits Authorized [id number] Pending Review PCP Requested Referral 07/29/2022 07/29/2023 1 1 Specialty Diagnoses / Procedures Referred By Contac t Referred To Contact CT IMAGING Diagnoses Persistent atrial fibrillation (HCC) Dyspnea, unspecified type Procedures CTA CHEST (NONGATED) W IVCON CT ANGIOGRAPHY CHEST W/CONTRAST/NONCONTRAST Timothy Walker MD [address] [place] [id number] Fax: Ct Imaging Referral ID Status Reason Start Date Expiration Date Visits Requested Visits Authorized [id number] Authorized Auto-Generat ed Referral 03/22/2023 01/29/2024 1 1 Specialty Diagnoses / Procedures Referred By Contac t Referred To Contact [facility] Diagnoses Persistent atrial fibrillation (HCC) Dyspnea, unspecified type Procedures ECHO ECHO TTHRC R-T 2D W/WOM-MODE COMPL SPEC&COLR D Timothy Walker MD [address] [place] [address] Fax: [facility] [address] [place] [address] Referral ID Status Reason Start Date Expiration Date Visits Requested Visits Authorized [id number] Authorized Auto-Generat ed Referral 03/22/2023 12/30/2023 1 1 Specialty Diagnoses / Procedures Referred By Contac t Referred To Contact CT IMAGING Diagnoses Dizziness Tinnitus, unspecified laterality Procedures CTA NECK W IVCON CT ANGIOGRAPHY NECK W/CONTRAST/NONCONTRAST Ruth Miranda APRN.THRESHING MACHINE OPERATOR [address] [place] [address] [place] [address] Referral ID Status Reason Start Date Expiration Date Visits Requested Visits Authorized [id number] Authorized Auto-Generat ed Referral 06/07/2024 1 1 Specialty Diagnoses / Procedures Referred By Contac t Referred To Contact CT IMAGING Diagnoses Dizziness Tinnitus, unspecified laterality Procedures CTA HEAD WO/W IVCON CT ANGIOGRAPHY HEAD W/CONTRAST/NONCONTRAST Ruth Miranda APRN.THRESHING MACHINE OPERATOR [address] [place] [address] [place] [address] Referral ID Status Reason Start Date Expiration Date Visits Requested Visits Authorized [id number] Authorized Auto-Generat ed Referral 06/07/2024 1 1 Referral ID Status Reason Start Date Expiration Date V isits Requested Visits Authorized [id number] Closed Auto-Generate d Referral 05/09/2023 06/07/2024 1 1 Referral ID Status Reason Start Date Expiration Date V isits Requested Visits Authorized [id number] Closed Auto-Generate d Referral 05/09/2023 06/07/2024 1 1 Specialty Diagnoses / Procedures Referred By Contac t Referred To Contact Hematology Diagnoses Anemia, unspecified type Procedures CONSULT TO HEMATOLOGY OFFICE/OUTPATIENT [facility] 60 MINUTES Federico Vigil MD [address] [place] [address] Referral ID Status Reason Start Date Expiration Date Visits Requested Visits Authorized [id number] Authorized PCP Requested Referral 08/18/2023 08/17/2024 1 1 Specialty Diagnoses / Procedures Referred By Contac t Referred To Contact CT IMAGING Diagnoses Carotid stenosis, asymptomatic, bilateral Amaurosis fugax of right eye Procedures CTA NECK W IVCON CTA NECK W IVCON CT ANGIOGRAPHY NECK W/CONTRAST/NONCONTRAST Elena Watkins, BOARD CERTIFIED ARTS THERAPIST.THRESHING MACHINE OPERATOR 1 [employer] [address] [place] [address] [place] [address] Referral ID Status Reason Start Date Expiration Date V isits Requested Visits Authorized [id number] Closed Auto-Generat ed Referral Patient Cleared - Admin/Chairm an/Director advise to proceed or did not respond 11/11/2023 05/09/2024 1 1 Specialty Diagnoses / Procedures Referred By Contac t Referred To Contact CT IMAGING Diagnoses Carotid stenosis, asymptomatic, bilateral Amaurosis fugax of right eye Procedures CTA HEAD W IVCON CT ANGIOGRAPHY HEAD W/CONTRAST/NONCONTRAST Elena Watkins, BOARD CERTIFIED ARTS THERAPIST.THRESHING MACHINE OPERATOR 1 [employer] [address] [place] [address] [place] [address] Referral ID Status Reason Start Date Expiration Date Visits Requested Visits Authorized [id number] Pending Review Auto-Generat ed Referral 11/11/2023 12/10/2024 1 1 Specialty Diagnoses / Procedures Referred By Contac t Referred To Contact CT IMAGING Diagnoses Carotid stenosis, asymptomatic, bilateral Amaurosis fugax of right eye Procedures CTA HEAD W IVCON CT ANGIOGRAPHY HEAD W/CONTRAST/NONCONTRAST CT ANGIOGRAPHY NECK W/CONTRAST/NONCONTRAST Elena Watkins, BOARD CERTIFIED ARTS THERAPIST.THRESHING MACHINE OPERATOR 1 [employer] [address] [address] Ct Imaging [facility] Referral ID Status Reason Start Date Expiration Date Visits Requested Visits Authorized [id number] Authorized Auto-Generat ed Referral 07/18/2023 07/17/2024 2 2 Specialty Diagnoses / Procedures Referred By Contac t Referred To Contact CT IMAGING Diagnoses Amaurosis fugax Procedures CTA NECK W IVCON CT ANGIOGRAPHY NECK W/CONTRAST/NONCONTRAST Phi Arreguin MD 1 [employer] [address] [place] [id number] Ct Imaging [facility] Referral ID Status Reason Start Date Expiration Date Visits Re quested Visits Authorized [id number] Closed 11/18/2023 07/17/2024 1 1 Specialty Diagnoses / Procedures Referred By Contac t Referred To Contact CT IMAGING Diagnoses Occlusion and stenosis of unspecified carotid artery Procedures CTA HEAD W IVCON CT ANGIOGRAPHY HEAD W/CONTRAST/NONCONTRAST Phi Arreguin MD 1 [employer] [address] [place] [address] Ct Imaging [facility] Referral ID Status Reason Start Date Expiration Date Visits Re quested Visits Authorized [id number] Closed 11/18/2023 07/17/2024 1 1 Specialty Diagnoses / Procedures Referred By Contac t Referred To Contact Diagnoses Post-op pain Elena Watkins, BOARD CERTIFIED ARTS THERAPIST.THRESHING MACHINE OPERATOR 1 [employer] [address] [place] [address] Referral ID Status Reason Start Date Expiration Date Visits Re quested Visits Authorized [id number] Closed 1 1 Additional Source Comments (unrecognized sect ion and content) No Status Records FoundNo Status Records FoundNo Status Records FoundNo Status Records FoundNo Status Records FoundNo Status Records Found INFORMATION SOURCE (unrecogn ized section and content) DATE CREATED AUTHOR 01/21/2018 [facility] DATE CREATED AUTHOR AUTHOR'S ORGANIZ ATION 10/20/2022 [facility] DATE CREATED AUTHOR AUTHOR'S ORGANIZ ATION 05/24/2023 [facility] DATE CREATED AUTHOR AUTHOR'S ORGANIZ ATION 02/01/2024 [facility] DATE CREATED AUTHOR AUTHOR'S ORGANIZ ATION 05/18/2025 [facility] DATE CREATED AUTHOR AUTHOR'S ORGANIZ ATION 05/23/2025 [facility] Reason for Visit (unrecogniz ed section and content) Reason Comments Established Patient Specialty Diagnoses / Procedures Referred By Contac t Referred To Contact Diagnoses Iron deficiency anemia, unspecified iron deficiency anemia type Procedures IRON SUCROSE INJECTION PER 1 MG David Lundberg [address] [place] [address] Yohan [facility] [address] [place] [address] Referral ID Status Reason Start Date Expiration Date V isits Requested Visits Authorized [id number] Authorized 09/02/2023 07/17/2024 99 99 Reason For [...] Exam Reason Comments patient update/requesting medication ph. [phone] Reason Comments Patient Update Patient Question Reason Comments New Patient Ref [facility] for a-fib discuss ablation Reason Comments Preparations For Procedures Reason Comments Orders Reason Comments Wellness Reason Comments Appointment Annual f/up with rupal SCHULER Reason Comments Patient Update Head pain and blurre d vision Reason Comments [facility] Reason Comments CARD Follow Up 3 Month S/p PVI Specialty Diagnoses / Procedures Referred By Contac t Referred To Contact CT IMAGING Diagnoses Persistent atrial fibrillation (HCC) Dyspnea, unspecified type Procedures CTA CHEST (NONGATED) W IVCON CT ANGIOGRAPHY CHEST W/CONTRAST/NONCONTRAST Timothy Walker MD [address] [place] [address] [place] [address] Referral ID Status Reason Start Date Expiration Date V isits Requested Visits Authorized [id number] Closed Auto-Generate d Referral 03/22/2023 01/29/2024 1 1 Reason Comments Rash Rash on ankle and sw ollen toe right foot Reason Comments Consult EGD, pain with swall owing, 04/13/2023 [facility] Specialty Diagnoses / Procedures Referred By Contac t Referred To Contact General Surgery Diagnoses Pain with swallowing Procedures CONSULT TO GENERAL SURGERY OFFICE/OUTPATIENT [facility] MDM 60-74 MINUTES Ruth Miranda, BOARD CERTIFIED ARTS THERAPIST.THRESHING MACHINE OPERATOR [address] [place] [address] Referral ID Status Reason Start Date Expiration Date Visits Requested Visits Authorized [id number] Pending Review PCP Requested Referral 07/29/2022 07/29/2023 1 1 Reason Comments Acute Visit continued dizziness, neck ear pain, tinnitis Reason Comments GIPRE OP CALL Reason Comments Radiology US Specialty Diagnoses / Procedures Referred By Contac t Referred To Contact US IMAGING Diagnoses Enlarged thyroid Procedures US THYROID/PARATHYROID US SOFT TISSUE HEAD & NECK REAL TIME IMGE DOCM Ruth Miranda, BOARD CERTIFIED ARTS THERAPIST.THRESHING MACHINE OPERATOR [address] [place] [address] [place] [address] Referral ID Status Reason Start Date Expiration Date V isits Requested Visits Authorized [id number] Closed Auto-Generate d Referral 04/06/2023 05/05/2024 1 1 Reason Comments Radiology US Referral ID Status Reason Start Date Expiration Date V isits Requested Visits Authorized [id number] Closed Auto-Generate d Referral 07/21/2022 08/20/2023 1 1 Reason Comments Patient Question Questions regarding results Reason Comments Radiology CT Specialty Diagnoses / Procedures Referred By Contac t Referred To Contact CT IMAGING Diagnoses Dizziness Tinnitus, unspecified laterality Procedures CTA NECK W IVCON CT ANGIOGRAPHY NECK W/CONTRAST/NONCONTRAST Ruth Miranda, BOARD CERTIFIED ARTS THERAPIST.THRESHING MACHINE OPERATOR [address] [place] [address] [place] [address] Referral ID Status Reason Start Date Expiration Date V isits Requested Visits Authorized [id number] Closed Auto-Generate d Referral 05/09/2023 06/07/2024 [address] Head/Neck Reason Comments Follow Up colonoscopy Reason Comments CARD Follow Up 3 Month Paroxysmal atrial fibrillation Reason Comments New Patient Specialty Diagnoses / Procedures Referred By Contac t Referred To Contact Hematology Diagnoses Anemia, unspecified type Procedures CONSULT TO HEMATOLOGY OFFICE/OUTPATIENT NEW HIGH MDM 60 MINUTES Federico Vigil MD [address] [place] [address] Referral ID Status Reason Start Date Expiration Date V isits Requested Visits Authorized [id number] Closed PCP Requested Referral 08/18/2023 08/17/2024 1 1 Reason Comments Knee Pain left knee pain x 4 d ays Reason Comments Non-Chemotherapy Treatment Reason Comments Social Work Services Reason Comments AVS 10/27/23 Reason Comments Requesting testing Reason Comments Patient Update Vision loss Reason Comments Results Specialty Diagnoses / Procedures Referred By Contac t Referred To Contact CT IMAGING Diagnoses Carotid stenosis, asymptomatic, bilateral Amaurosis fugax of right eye Procedures CTA NECK W IVCON CTA NECK W IVCON CT ANGIOGRAPHY NECK W/CONTRAST/NONCONTRAST Elena Watkins, [place].THRESHING MACHINE OPERATOR 1 [employer] [address] [place] [address] [place] [address] Referral ID Status Reason Start Date Expiration Date V isits Requested Visits Authorized [id number] Closed Auto-Generat ed Referral Patient Cleared - Admin/Chairm an/Director advise to proceed or did not respond 11/11/2023 05/09/2024 1 1 Specialty Diagnoses / Procedures Referred By Contac t Referred To Contact CT IMAGING Diagnoses Amaurosis fugax Procedures CTA NECK W IVCON CT ANGIOGRAPHY NECK W/CONTRAST/NONCONTRAST Phi Arreguin MD 1 [facility] [employer] [address] [place] [address] [place] [address] Referral ID Status Reason Start Date Expiration Date Visits Re quested Visits Authorized [id number] Closed 11/18/2023 07/17/2024 1 1 Reason Comments [...] Expiration Date Visits Re quested Visits Authorized [id number] Closed 09/02/2023 07/17/2024 99 99 Reason Onset Date Comments Refill Request 05/16/2024 Reason Onset Date Comments Refill Request 05/18/2024 Reason Comments Acute Visit lingering cough and cold Reason Comments Acute Visit Low back pain Reason Comments Forms Medical Clearance Reason Comments Pre-Op Exam Reason Comments Results and Form Reason Comments Agree to follow for [facility] PT OT Reason Comments PT Plan [...] 09/03/2024 Chest Xray Reason Comments Follow Up Reason Onset Date Comments Population Health Navigation Outreach 01/22/2025 [employer] PCSA Source Comments (unrecognize d section and content) In the event this informatio n is protected by the Federal Confidentiality of Alcohol and Drug Abuse Patient Records regulations: The Federal rules restrict any use of the information to criminally investigate or prosecute any alcohol or drug abuse patient.[facility] the event this information is protected by the Federal Confidentiality of Alcohol and Drug Abuse Patient Records regulations: The Federal rules restrict any use of the information to criminally investigate or prosecute any alcohol or drug abuse patient.[facility] Hospital[facility] the event this information is protected by the Federal Confidentiality of Alcohol and Drug Abuse Patient Records regulations: The Federal rules restrict any use of the information to criminally investigate or prosecute any alcohol or drug abuse patient.[facility] Hospital[facility] the event this information is protected by the Federal Confidentiality of Alcohol and Drug Abuse Patient Records regulations: The Federal rules restrict any use of the information to criminally investigate or prosecute any alcohol or drug abuse patient.[facility] the event this information is protected by the Federal Confidentiality of Alcohol and Drug Abuse Patient Records regulations: The Federal rules restrict any use of the information to criminally investigate or prosecute any alcohol or drug abuse patient.[facility] Hospital[facility] the event this information is protected by the Federal Confidentiality of Alcohol and Drug Abuse Patient Records regulations: The Federal rules restrict any use of the information to criminally investigate or prosecute any alcohol or drug abuse patient.[facility] Hospital[facility] the event this information is protected by the Federal Confidentiality of Alcohol and Drug Abuse Patient Records regulations: The Federal rules restrict any use of the information to criminally investigate or prosecute any alcohol or drug abuse patient.[facility] Hospital[facility] the event this information is protected by the Federal Confidentiality of Alcohol and Drug Abuse Patient Records regulations: The Federal rules restrict any use of the information to criminally investigate or prosecute any alcohol or drug abuse patient.[facility] Hospital[facility] the event this information is protected by the Federal Confidentiality of Alcohol and Drug Abuse Patient Records regulations: The Federal rules restrict any use of the information to criminally investigate or prosecute any alcohol or drug abuse patient.[facility] Hospital[facility] the event this information is protected by the Federal Confidentiality of Alcohol and Drug Abuse Patient Records regulations: The Federal rules restrict any use of the information to criminally investigate or prosecute any alcohol or drug abuse patient.[facility] Hospital[facility] the event this information is protected by the Federal Confidentiality of Alcohol and Drug Abuse Patient Records regulations: The Federal rules restrict any use of the information to criminally investigate or prosecute any alcohol or drug abuse patient.[facility] HospitalIn the event this information is protected by the Federal Confidentiality of Alcohol and Drug Abuse Patient Records regulations: The Federal rules restrict any use of the information to criminally investigate or prosecute any alcohol or drug abuse patient.[facility] HospitalIn the event this information is protected by the Federal Confidentiality of Alcohol and Drug Abuse Patient Records regulations: The Federal rules restrict any use of the information to criminally investigate or prosecute any alcohol or drug abuse patient.[facility] HospitalIn the event this information is protected by the Federal Confidentiality of Alcohol and Drug Abuse Patient Records regulations: The Federal rules restrict any use of the information to criminally investigate or prosecute any alcohol or drug abuse patient.[facility] HospitalIn the event this information is protected by the Federal Confidentiality of Alcohol and Drug Abuse Patient Records regulations: The Federal rules restrict any use of the information to criminally investigate or prosecute any alcohol or drug abuse patient.[facility] HospitalIn the event this information is protected by the Federal Confidentiality of Alcohol and Drug Abuse Patient Records regulations: The Federal rules restrict any use of the information to criminally investigate or prosecute any alcohol or drug abuse patient.[facility] HospitalIn the event this information is protected by the Federal Confidentiality of Alcohol and Drug Abuse Patient Records regulations: The Federal rules restrict any use of the information to criminally investigate or prosecute any alcohol or drug abuse patient.[facility] HospitalIn the event this information is protected by the Federal Confidentiality of Alcohol and Drug Abuse Patient Records regulations: The Federal rules restrict any use of the information to criminally investigate or prosecute any alcohol or drug abuse patient.[facility] HospitalIn the event this information is protected by the Federal Confidentiality of Alcohol and Drug Abuse Patient Records regulations: The Federal rules restrict any use of the information to criminally investigate or prosecute any alcohol or drug abuse patient.[facility] HospitalIn the event this information is protected by the Federal Confidentiality of Alcohol and Drug Abuse Patient Records regulations: The Federal rules restrict any use of the information to criminally investigate or prosecute any alcohol or drug abuse patient.[facility] HospitalIn the event this information is protected by the Federal Confidentiality of Alcohol and Drug Abuse Patient Records regulations: The Federal rules restrict any use of the information to criminally investigate or prosecute any alcohol or drug abuse patient.[facility] HospitalIn the event this information is protected by the Federal Confidentiality of Alcohol and Drug Abuse Patient Records regulations: The Federal rules restrict any use of the information to criminally investigate or prosecute any alcohol or drug abuse patient.[facility] HospitalIn the event this information is protected by the Federal Confidentiality of Alcohol and Drug Abuse Patient Records regulations: The Federal rules restrict any use of the information to criminally investigate or prosecute any alcohol or drug abuse patient.[facility] HospitalIn the event this information is protected by the Federal Confidentiality of Alcohol and Drug Abuse Patient Records regulations: The Federal rules restrict any use of the information to criminally investigate or prosecute any alcohol or drug abuse patient.[facility] HospitalIn the event this information is protected by the Federal Confidentiality of Alcohol and Drug Abuse Patient Records regulations: The Federal rules restrict any use of the information to criminally investigate or prosecute any alcohol or drug abuse patient.[facility] HospitalIn the event this information is protected by the Federal Confidentiality of Alcohol and Drug Abuse Patient Records regulations: The Federal rules restrict any use of the information to criminally investigate or prosecute any alcohol or drug abuse patient.[facility] HospitalIn the event this information is protected by the Federal Confidentiality of Alcohol and Drug Abuse Patient Records regulations: The Federal rules restrict any use of the information to criminally investigate or prosecute any alcohol or drug abuse patient.[facility] HospitalIn the event this information is protected by the Federal Confidentiality of Alcohol and Drug Abuse Patient Records regulations: The Federal rules restrict any use of the information to criminally investigate or prosecute any alcohol or drug abuse patient.[facility] HospitalIn the event this information is protected by the Federal Confidentiality of Alcohol and Drug Abuse Patient Records regulations: The Federal rules restrict any use of the information to criminally investigate or prosecute any alcohol or drug abuse patient.[facility] HospitalIn the event this information is protected by the Federal Confidentiality of Alcohol and Drug Abuse Patient Records regulations: The Federal rules restrict any use of the information to criminally investigate or prosecute any alcohol or drug abuse patient.[facility] HospitalIn the event this information is protected by the Federal Confidentiality of Alcohol and Drug Abuse Patient Records regulations: The Federal rules restrict any use of the information to criminally investigate or prosecute any alcohol or drug abuse patient.[facility]In the event this information is protected by the Federal Confidentiality of Alcohol and Drug Abuse Patient Records regulations: The Federal rules restrict any use of the information to criminally investigate or prosecute any alcohol or drug abuse patient.[facility] HospitalIn the event this information is protected by the Federal Confidentiality of Alcohol and Drug Abuse Patient Records regulations: The Federal rules restrict any use of the information to criminally investigate or prosecute any alcohol or drug abuse patient.[facility] HospitalIn the event this information is protected by the Federal Confidentiality of Alcohol and Drug Abuse Patient Records regulations: The Federal rules restrict any use of the information to criminally investigate or prosecute any alcohol or drug abuse patient.[facility]In the event this information is protected by the Federal Confidentiality of Alcohol and Drug Abuse Patient Records regulations: The Federal rules restrict any use of the information to criminally investigate or prosecute any alcohol or drug abuse patient.[facility] HospitalIn the event this information is protected by the Federal Confidentiality of Alcohol and Drug Abuse Patient Records regulations: The Federal rules restrict any use of the information to criminally investigate or prosecute any alcohol or drug abuse patient.[facility] HospitalIn the event this information is protected by the Federal Confidentiality of Alcohol and Drug Abuse Patient Records regulations: The Federal rules restrict any use of the information to criminally investigate or prosecute any alcohol or drug abuse patient.[facility] HospitalIn the event this information is protected by the Federal Confidentiality of Alcohol and Drug Abuse Patient Records regulations: The Federal rules restrict any use of the information to criminally investigate or prosecute any alcohol or drug abuse patient.[facility] HospitalIn the event this information is protected by the Federal Confidentiality of Alcohol and Drug Abuse Patient Records regulations: The Federal rules restrict any use of the information to criminally investigate or prosecute any alcohol or drug abuse patient.[facility] HospitalIn the event this information is protected by the Federal Confidentiality of Alcohol and Drug Abuse Patient Records regulations: The Federal rules restrict any use of the information to criminally investigate or prosecute any alcohol or drug abuse patient.[facility] HospitalIn the event this information is protected by the Federal Confidentiality of Alcohol and Drug Abuse Patient Records regulations: The Federal rules restrict any use of the information to criminally investigate or prosecute any alcohol or drug abuse patient.[facility] HospitalIn the event this information is protected by the Federal Confidentiality of Alcohol and Drug Abuse Patient Records regulations: The Federal rules restrict any use of the information to criminally investigate or prosecute any alcohol or drug abuse patient.[facility] HospitalIn the event this information is protected by the Federal Confidentiality of Alcohol and Drug Abuse Patient Records regulations: The Federal rules restrict any use of the information to criminally investigate or prosecute any alcohol or drug abuse patient.[facility] HospitalIn the event this information is protected by the Federal Confidentiality of Alcohol and Drug Abuse Patient Records regulations: The Federal rules restrict any use of the information to criminally investigate or prosecute any alcohol or drug abuse patient.[facility] HospitalIn the event this information is protected by the Federal Confidentiality of Alcohol and Drug Abuse Patient Records regulations: The Federal rules restrict any use of the information to criminally investigate or prosecute any alcohol or drug abuse patient.[facility] HospitalIn the event this information is protected by the Federal Confidentiality of Alcohol and Drug Abuse Patient Records regulations: The Federal rules restrict any use of the information to criminally investigate or prosecute any alcohol or drug abuse patient.[facility] HospitalIn the event this information is protected by the Federal Confidentiality of Alcohol and Drug Abuse Patient Records regulations: The Federal rules restrict any use of the information to criminally investigate or prosecute any alcohol or drug abuse patient.[facility] HospitalIn the event this information is protected by the Federal Confidentiality of Alcohol and Drug Abuse Patient Records regulations: The Federal rules restrict any use of the information to criminally investigate or prosecute any alcohol or drug abuse patient.[facility] HospitalIn the event this information is protected by the Federal Confidentiality of Alcohol and Drug Abuse Patient Records regulations: The Federal rules restrict any use of the information to criminally investigate or prosecute any alcohol or drug abuse patient.[facility] HospitalIn the event this information is protected by the Federal Confidentiality of Alcohol and Drug Abuse Patient Records regulations: The Federal rules restrict any use of the information to criminally investigate or prosecute any alcohol or drug abuse patient.[facility] HospitalIn the event this information is protected by the Federal Confidentiality of Alcohol and Drug Abuse Patient Records regulations: The Federal rules restrict any use of the information to criminally investigate or prosecute any alcohol or drug abuse patient.[facility] HospitalIn the event this information is protected by the Federal Confidentiality of Alcohol and Drug Abuse Patient Records regulations: The Federal rules restrict any use of the information to criminally investigate or prosecute any alcohol or drug abuse patient.[facility] HospitalIn the event this information is protected by the Federal Confidentiality of Alcohol and Drug Abuse Patient Records regulations: The Federal rules restrict any use of the information to criminally investigate or prosecute any alcohol or drug abuse patient.[facility] HospitalIn the event this information is protected by the Federal Confidentiality of Alcohol and Drug Abuse Patient Records regulations: The Federal rules restrict any use of the information to criminally investigate or prosecute any alcohol or drug abuse patient.[facility] HospitalIn the event this information is protected by the Federal Confidentiality of Alcohol and Drug Abuse Patient Records regulations: The Federal rules restrict any use of the information to criminally investigate or prosecute any alcohol or drug abuse patient.[facility] HospitalIn the event this information is protected by the Federal Confidentiality of Alcohol and Drug Abuse Patient Records regulations: The Federal rules restrict any use of the information to criminally investigate or prosecute any alcohol or drug abuse patient.[facility] HospitalIn the event this information is protected by the Federal Confidentiality of Alcohol and Drug Abuse Patient Records regulations: The Federal rules restrict any use of the information to criminally investigate or prosecute any alcohol or drug abuse patient.[facility] HospitalIn the event this information is protected by the Federal Confidentiality of Alcohol and Drug Abuse Patient Records regulations: The Federal rules restrict any use of the information to criminally investigate or prosecute any alcohol or drug abuse patient.[facility] HospitalIn the event this information is protected by the Federal Confidentiality of Alcohol and Drug Abuse Patient Records regulations: The Federal rules restrict any use of the information to criminally investigate or prosecute any alcohol or drug abuse patient.[facility] HospitalIn the event this information is protected by the Federal Confidentiality of Alcohol and Drug Abuse Patient Records regulations: The Federal rules restrict any use of the information to criminally investigate or prosecute any alcohol or drug abuse patient.[facility] HospitalIn the event this information is protected by the Federal Confidentiality of Alcohol and Drug Abuse Patient Records regulations: The Federal rules restrict any use of the information to criminally investigate or prosecute any alcohol or drug abuse patient.[facility] HospitalIn the event this information is protected by the Federal Confidentiality of Alcohol and Drug Abuse Patient Records regulations: The Federal rules restrict any use of the information to criminally investigate or prosecute any alcohol or drug abuse patient.[facility] HospitalIn the event this information is protected by the Federal Confidentiality of Alcohol and Drug Abuse Patient Records regulations: The Federal rules restrict any use of the information to criminally investigate or prosecute any alcohol or drug abuse patient.[facility] HospitalIn the event this information is protected by the Federal Confidentiality of Alcohol and Drug Abuse Patient Records regulations: The Federal rules restrict any use of the information to criminally investigate or prosecute any alcohol or drug abuse patient.[facility] HospitalIn the event this information is protected by the Federal Confidentiality of Alcohol and Drug Abuse Patient Records regulations: The Federal rules restrict any use of the information to criminally investigate or prosecute any alcohol or drug abuse patient.[facility] HospitalIn the event this information is protected by the Federal Confidentiality of Alcohol and Drug Abuse Patient Records regulations: The Federal rules restrict any use of the information to criminally investigate or prosecute any alcohol or drug abuse patient.[facility] HospitalIn the event this information is protected by the Federal Confidentiality of Alcohol and Drug Abuse Patient Records regulations: The Federal rules restrict any use of the information to criminally investigate or prosecute any alcohol or drug abuse patient.[facility] HospitalIn the event this information is protected by the Federal Confidentiality of Alcohol and Drug Abuse Patient Records regulations: The Federal rules restrict any use of the information to criminally investigate or prosecute any alcohol or drug abuse patient.[facility] HospitalIn the event this information is protected by the Federal Confidentiality of Alcohol and Drug Abuse Patient Records regulations: The Federal rules restrict any use of the information to criminally investigate or prosecute any alcohol or drug abuse patient.[facility] HospitalIn the event this information is protected by the Federal Confidentiality of Alcohol and Drug Abuse Patient Records regulations: The Federal rules restrict any use of the information to criminally investigate or prosecute any alcohol or drug abuse patient.[facility] HospitalIn the event this information is protected by the Federal Confidentiality of Alcohol and Drug Abuse Patient Records regulations: The Federal rules restrict any use of the information to criminally investigate or prosecute any alcohol or drug abuse patient.[facility] HospitalIn the event this information is protected by the Federal Confidentiality of Alcohol and Drug Abuse Patient Records regulations: The Federal rules restrict any use of the information to criminally investigate or prosecute any alcohol or drug abuse patient.[facility] HospitalIn the event this information is protected by the Federal Confidentiality of Alcohol and Drug Abuse Patient Records regulations: The Federal rules restrict any use of the information to criminally investigate or prosecute any alcohol or drug abuse patient.[facility] HospitalIn the event this information is protected by the Federal Confidentiality of Alcohol and Drug Abuse Patient Records regulations: The Federal rules restrict any use of the information to criminally investigate or prosecute any alcohol or drug abuse patient.[facility] HospitalIn the event this information is protected by the Federal Confidentiality of Alcohol and Drug Abuse Patient Records regulations: The Federal rules restrict any use of the information to criminally investigate or prosecute any alcohol or drug abuse patient.[facility] HospitalIn the event this information is protected by the Federal Confidentiality of Alcohol and Drug Abuse Patient Records regulations: The Federal rules restrict any use of the information to criminally investigate or prosecute any alcohol or drug abuse patient.[facility] HospitalIn the event this information is protected by the Federal Confidentiality of Alcohol and Drug Abuse Patient Records regulations: The Federal rules restrict any use of the information to criminally investigate or prosecute any alcohol or drug abuse patient.[facility] HospitalIn the event this information is protected by the Federal Confidentiality of Alcohol and Drug Abuse Patient Records regulations: The Federal rules restrict any use of the information to criminally investigate or prosecute any alcohol or drug abuse patient.[facility] HospitalIn the event this information is protected by the Federal Confidentiality of Alcohol and Drug Abuse Patient Records regulations: The Federal rules restrict any use of the information to criminally investigate or prosecute any alcohol or drug abuse patient.[facility] HospitalIn the event this information is protected by the Federal Confidentiality of Alcohol and Drug Abuse Patient Records regulations: The Federal rules restrict any use of the information to criminally investigate or prosecute any alcohol or drug abuse patient.[facility] HospitalIn the event this information is protected by the Federal Confidentiality of Alcohol and Drug Abuse Patient Records regulations: The Federal rules restrict any use of the information to criminally investigate or prosecute any alcohol or drug abuse patient.[facility] HospitalIn the event this information is protected by the Federal Confidentiality of Alcohol and Drug Abuse Patient Records regulations: The Federal rules restrict any use of the information to criminally investigate or prosecute any alcohol or drug abuse patient.[facility] HospitalIn the event this information is protected by the Federal Confidentiality of Alcohol and Drug Abuse Patient Records regulations: The Federal rules restrict any use of the information to criminally investigate or prosecute any alcohol or drug abuse patient.[facility] HospitalIn the event this information is protected by the Federal Confidentiality of Alcohol and Drug Abuse Patient Records regulations: The Federal rules restrict any use of the information to criminally investigate or prosecute any alcohol or drug abuse patient.[facility]In the event this information is protected by the Federal Confidentiality of Alcohol and Drug Abuse Patient Records regulations: The Federal rules restrict any use of the information to criminally investigate or prosecute any alcohol or drug abuse patient.[facility] HospitalIn the event this information is protected by the Federal Confidentiality of Alcohol and Drug Abuse Patient Records regulations: The Federal rules restrict any use of the information to criminally investigate or prosecute any alcohol or drug abuse patient.[facility] HospitalIn the event this information is protected by the Federal Confidentiality of Alcohol and Drug Abuse Patient Records regulations: The Federal rules restrict any use of the information to criminally investigate or prosecute any alcohol or drug abuse patient.[facility] HospitalIn the event this information is protected by the Federal Confidentiality of Alcohol and Drug Abuse Patient Records regulations: The Federal rules restrict any use of the information to criminally investigate or prosecute any alcohol or drug abuse patient.[facility] HospitalIn the event this information is protected by the Federal Confidentiality of Alcohol and Drug Abuse Patient Records regulations: The Federal rules restrict any use of the information to criminally investigate or prosecute any alcohol or drug abuse patient.[facility] HospitalIn the event this information is protected by the Federal Confidentiality of Alcohol and Drug Abuse Patient Records regulations: The Federal rules restrict any use of the information to criminally investigate or prosecute any alcohol or drug abuse patient.[facility] HospitalIn the event this information is protected by the Federal Confidentiality of Alcohol and Drug Abuse Patient Records regulations: The Federal rules restrict any use of the information to criminally investigate or prosecute any alcohol or drug abuse patient.[facility] HospitalIn the event this information is protected by the Federal Confidentiality of Alcohol and Drug Abuse Patient Records regulations: The Federal rules restrict any use of the information to criminally investigate or prosecute any alcohol or drug abuse patient.[facility] HospitalIn the event this information is protected by the Federal Confidentiality of Alcohol and Drug Abuse Patient Records regulations: The Federal rules restrict any use of the information to criminally investigate or prosecute any alcohol or drug abuse patient.[facility] HospitalIn the event this information is protected by the Federal Confidentiality of Alcohol and Drug Abuse Patient Records regulations: The Federal rules restrict any use of the information to criminally investigate or prosecute any alcohol or drug abuse patient.[facility] HospitalIn the event this information is protected by the Federal Confidentiality of Alcohol and Drug Abuse Patient Records regulations: The Federal rules restrict any use of the information to criminally investigate or prosecute any alcohol or drug abuse patient.[facility] HospitalIn the event this information is protected by the Federal Confidentiality of Alcohol and Drug Abuse Patient Records regulations: The Federal rules restrict any use of the information to criminally investigate or prosecute any alcohol or drug abuse patient.[facility] HospitalIn the event this information is protected by the Federal Confidentiality of Alcohol and Drug Abuse Patient Records regulations: The Federal rules restrict any use of the information to criminally investigate or prosecute any alcohol or drug abuse patient.[facility] HospitalIn the event this information is protected by the Federal Confidentiality of Alcohol and Drug Abuse Patient Records regulations: The Federal rules restrict any use of the information to criminally investigate or prosecute any alcohol or drug abuse patient.[facility] HospitalIn the event this information is protected by the Federal Confidentiality of Alcohol and Drug Abuse Patient Records regulations: The Federal rules restrict any use of the information to criminally investigate or prosecute any alcohol or drug abuse patient.[facility] HospitalIn the event this information is protected by the Federal Confidentiality of Alcohol and Drug Abuse Patient Records regulations: The Federal rules restrict any use of the information to criminally investigate or prosecute any alcohol or drug abuse patient.[facility] HospitalIn the event this information is protected by the Federal Confidentiality of Alcohol and Drug Abuse Patient Records regulations: The Federal rules restrict any use of the information to criminally investigate or prosecute any alcohol or drug abuse patient.[facility] HospitalIn the event this information is protected by the Federal Confidentiality of Alcohol and Drug Abuse Patient Records regulations: The Federal rules restrict any use of the information to criminally investigate or prosecute any alcohol or drug abuse patient.[facility] HospitalIn the event this information is protected by the Federal Confidentiality of Alcohol and Drug Abuse Patient Records regulations: The Federal rules restrict any use of the information to criminally investigate or prosecute any alcohol or drug abuse patient.[facility] HospitalIn the event this information is protected by the Federal Confidentiality of Alcohol and Drug Abuse Patient Records regulations: The Federal rules restrict any use of the information to criminally investigate or prosecute any alcohol or drug abuse patient.[facility] HospitalIn the event this information is protected by the Federal Confidentiality of Alcohol and Drug Abuse Patient Records regulations: The Federal rules restrict any use of the information to criminally investigate or prosecute any alcohol or drug abuse patient.[facility] HospitalIn the event this information is protected by the Federal Confidentiality of Alcohol and Drug Abuse Patient Records regulations: The Federal rules restrict any use of the information to criminally investigate or prosecute any alcohol or drug abuse patient.[facility] HospitalIn the event this information is protected by the Federal Confidentiality of Alcohol and Drug Abuse Patient Records regulations: The Federal rules restrict any use of the information to criminally investigate or prosecute any alcohol or drug abuse patient.[facility] HospitalIn the event this information is protected by the Federal Confidentiality of Alcohol and Drug Abuse Patient Records regulations: The Federal rules restrict any use of the information to criminally investigate or prosecute any alcohol or drug abuse patient.[facility] HospitalIn the event this information is protected by the Federal Confidentiality of Alcohol and Drug Abuse Patient Records regulations: The Federal rules restrict any use of the information to criminally investigate or prosecute any alcohol or drug abuse patient.[facility] HospitalIn the event this information is protected by the Federal Confidentiality of Alcohol and Drug Abuse Patient Records regulations: The Federal rules restrict any use of the information to criminally investigate or prosecute any alcohol or drug abuse patient.[facility] HospitalIn the event this information is protected by the Federal Confidentiality of Alcohol and Drug Abuse Patient Records regulations: The Federal rules restrict any use of the information to criminally investigate or prosecute any alcohol or drug abuse patient.[facility] HospitalIn the event this information is protected by the Federal Confidentiality of Alcohol and Drug Abuse Patient Records regulations: The Federal rules restrict any use of the information to criminally investigate or prosecute any alcohol or drug abuse patient.[facility] HospitalIn the event this information is protected by the Federal Confidentiality of Alcohol and Drug Abuse Patient Records regulations: The Federal rules restrict any use of the information to criminally investigate or prosecute any alcohol or drug abuse patient.[facility] HospitalIn the event this information is protected by the Federal Confidentiality of Alcohol and Drug Abuse Patient Records regulations: The Federal rules restrict any use of the information to criminally investigate or prosecute any alcohol or drug abuse patient.[facility] HospitalIn the event this information is protected by the Federal Confidentiality of Alcohol and Drug Abuse Patient Records regulations: The Federal rules restrict any use of the information to criminally investigate or prosecute any alcohol or drug abuse patient.[facility] HospitalIn the event this information is protected by the Federal Confidentiality of Alcohol and Drug Abuse Patient Records regulations: The Federal rules restrict any use of the information to criminally investigate or prosecute any alcohol or drug abuse patient.[facility] HospitalIn the event this information is protected by the Federal Confidentiality of Alcohol and Drug Abuse Patient Records regulations: The Federal rules restrict any use of the information to criminally investigate or prosecute any alcohol or drug abuse patient.[facility] HospitalIn the event this information is protected by the Federal Confidentiality of Alcohol and Drug Abuse Patient Records regulations: The Federal rules restrict any use of the information to criminally investigate or prosecute any alcohol or drug abuse patient.[facility] HospitalIn the event this information is protected by the Federal Confidentiality of Alcohol and Drug Abuse Patient Records regulations: The Federal rules restrict any use of the information to criminally investigate or prosecute any alcohol or drug abuse patient.[facility] HospitalIn the event this information is protected by the Federal Confidentiality of Alcohol and Drug Abuse Patient Records regulations: The Federal rules restrict any use of the information to criminally investigate or prosecute any alcohol or drug abuse patient.[facility] HospitalIn the event this information is protected by the Federal Confidentiality of Alcohol and Drug Abuse Patient Records regulations: The Federal rules restrict any use of the information to criminally investigate or prosecute any alcohol or drug abuse patient.[facility] HospitalIn the event this information is protected by the Federal Confidentiality of Alcohol and Drug Abuse Patient Records regulations: The Federal rules restrict any use of the information to criminally investigate or prosecute any alcohol or drug abuse patient.[facility] HospitalIn the event this information is protected by the Federal Confidentiality of Alcohol and Drug Abuse Patient Records regulations: The Federal rules restrict any use of the information to criminally investigate or prosecute any alcohol or drug abuse patient.[facility] HospitalIn the event this information is protected by the Federal Confidentiality of Alcohol and Drug Abuse Patient Records regulations: The Federal rules restrict any use of the information to criminally investigate or prosecute any alcohol or drug abuse patient.[facility] HospitalIn the event this information is protected by the Federal Confidentiality of Alcohol and Drug Abuse Patient Records regulations: The Federal rules restrict any use of the information to criminally investigate or prosecute any alcohol or drug abuse patient.[facility] HospitalIn the event this information is protected by the Federal Confidentiality of Alcohol and Drug Abuse Patient Records regulations: The Federal rules restrict any use of the information to criminally investigate or prosecute any alcohol or drug abuse patient.[facility] HospitalIn the event this information is protected by the Federal Confidentiality of Alcohol and Drug Abuse Patient Records regulations: The Federal rules restrict any use of the information to criminally investigate or prosecute any alcohol or drug abuse patient.[facility] HospitalIn the event this information is protected by the Federal Confidentiality of Alcohol and Drug Abuse Patient Records regulations: The Federal rules restrict any use of the information to criminally investigate or prosecute any alcohol or drug abuse patient.[facility] HospitalIn the event this information is protected by the Federal Confidentiality of Alcohol and Drug Abuse Patient Records regulations: The Federal rules restrict any use of the information to criminally investigate or prosecute any alcohol or drug abuse patient.[facility] HospitalIn the event this information is protected by the Federal Confidentiality of Alcohol and Drug Abuse Patient Records regulations: The Federal rules restrict any use of the information to criminally investigate or prosecute any alcohol or drug abuse patient.[facility] HospitalIn the event this information is protected by the Federal Confidentiality of Alcohol and Drug Abuse Patient Records regulations: The Federal rules restrict any use of the information to criminally investigate or prosecute any alcohol or drug abuse patient.[facility] HospitalIn the event this information is protected by the Federal Confidentiality of Alcohol and Drug Abuse Patient Records regulations: The Federal rules restrict any use of the information to criminally investigate or prosecute any alcohol or drug abuse patient.[facility] HospitalIn the event this information is protected by the Federal Confidentiality of Alcohol and Drug Abuse Patient Records regulations: The Federal rules restrict any use of the information to criminally investigate or prosecute any alcohol or drug abuse patient.[facility] HospitalIn the event this information is protected by the Federal Confidentiality of Alcohol and Drug Abuse Patient Records regulations: The Federal rules restrict any use of the information to criminally investigate or prosecute any alcohol or drug abuse patient.[facility]In the event this information is protected by the Federal Confidentiality of Alcohol and Drug Abuse Patient Records regulations: The Federal rules restrict any use of the information to criminally investigate or prosecute any alcohol or drug abuse patient.[facility] HospitalIn the event this information is protected by the Federal Confidentiality of Alcohol and Drug Abuse Patient Records regulations: The Federal rules restrict any use of the information to criminally investigate or prosecute any alcohol or drug abuse patient.[facility] HospitalIn the event this information is protected by the Federal Confidentiality of Alcohol and Drug Abuse Patient Records regulations: The Federal rules restrict any use of the information to criminally investigate or prosecute any alcohol or drug abuse patient.[facility] HospitalIn the event this information is protected by the Federal Confidentiality of Alcohol and Drug Abuse Patient Records regulations: The Federal rules restrict any use of the information to criminally investigate or prosecute any alcohol or drug abuse patient.[facility] HospitalIn the event this information is protected by the Federal Confidentiality of Alcohol and Drug Abuse Patient Records regulations: The Federal rules restrict any use of the information to criminally investigate or prosecute any alcohol or drug abuse patient.[facility] HospitalIn the event this information is protected by the Federal Confidentiality of Alcohol and Drug Abuse Patient Records regulations: The Federal rules restrict any use of the information to criminally investigate or prosecute any alcohol or drug abuse patient.[facility] HospitalIn the event this information is protected by the Federal Confidentiality of Alcohol and Drug Abuse Patient Records regulations: The Federal rules restrict any use of the information to criminally investigate or prosecute any alcohol or drug abuse patient.[facility] HospitalIn the event this information is protected by the Federal Confidentiality of Alcohol and Drug Abuse Patient Records regulations: The Federal rules restrict any use of the information to criminally investigate or prosecute any alcohol or drug abuse patient.[facility] HospitalIn the event this information is protected by the Federal Confidentiality of Alcohol and Drug Abuse Patient Records regulations: The Federal rules restrict any use of the information to criminally investigate or prosecute any alcohol or drug abuse patient.[facility] HospitalIn the event this information is protected by the Federal Confidentiality of Alcohol and Drug Abuse Patient Records regulations: The Federal rules restrict any use of the information to criminally investigate or prosecute any alcohol or drug abuse patient.[facility] HospitalIn the event this information is protected by the Federal Confidentiality of Alcohol and Drug Abuse Patient Records regulations: The Federal rules restrict any use of the information to criminally investigate or prosecute any alcohol or drug abuse patient.[facility] Care Teams (unrecognized sec tion and content) Clothes Designer Relationship Specialty Start Date End Date Federico Vigil MD [address] [place], [place] [address] PCP - General Family Practice 04/27/17 Clothes Designer Relationship Specialty Start Date End Date Federico Vigil MD [address] [facility] [address] PCP - General Family Practice 04/27/17 Clothes Designer Relationship Specialty Start Date End Date Federico Vigil MD [address] [place] [address] PCP - General Family Practice 04/27/17 Clothes Designer Relationship Specialty Start Date End Date Federico Vigil MD [address] [place] [address] PCP - General Family Practice 04/27/17 Clothes Designer Relationship Specialty Start Date End Date Federico Vigil MD [address] [place] [address] PCP - General Family Practice 04/27/17 Clothes Designer Relationship Specialty Start Date End Date Federico Vigil MD [address] [place] [address] PCP - General Family Practice 04/27/17 Clothes Designer Relationship Specialty Start Date End Date Federico Vigil MD [address] [place] [address] PCP - General Family Practice 04/27/17 Clothes Designer Relationship Specialty Start Date End Date Federico Vigil MD [address] [place] [address] PCP - General Family Medicine 04/27/17 Clothes Designer Relationship Specialty Start Date End Date Federico Vigil MD [address] [place] [address] PCP - General Family Medicine 04/27/17 Clothes Designer Relationship Specialty Start Date End Date Federico Vigil MD [address] [place] [address] PCP - General Family Medicine 04/27/17 Clothes Designer Relationship Specialty Start Date End Date Federico Vigil MD [address] [place] [address] PCP - General Family Medicine 04/27/17 Clothes Designer Relationship Specialty Start Date End Date Federico Vigil MD [address] [place] [address] PCP - General Family Medicine 04/27/17 Clothes Designer Relationship Specialty Start Date End Date Federico Vigil MD [address] [place] [address] PCP - General Family Medicine 04/27/17 Clothes Designer Relationship Specialty Start Date End Date Federico Vigil MD [address] [place] [address] PCP - General Family Medicine 04/27/17 Clothes Designer Relationship Specialty Start Date End Date Federico Vigil MD [address] [place] [address] PCP - General Family Medicine 04/27/17 Clothes Designer Relationship Specialty Start Date End Date Federico Vigil MD [address] [place] [address] PCP - General Family Medicine 04/27/17 Clothes Designer Relationship Specialty Start Date End Date Federico Vigil MD [address] [place] [address] PCP - General Family Medicine 04/27/17 Clothes Designer Relationship Specialty Start Date End Date Federico Vigil MD [address] [place] [address] PCP - General Family Medicine 04/27/17 Clothes Designer Relationship Specialty Start Date End Date Federico Vigil MD [address] [place] [address] PCP - General Family Medicine 04/27/17 Clothes Designer Relationship Specialty Start Date End Date Federico Vigil MD [address] [place] [address] PCP - General Family Medicine 04/27/17 Clothes Designer Relationship Specialty Start Date End Date Federico Vigil MD [address] [place] [address] PCP - General Family Medicine 04/27/17 Clothes Designer Relationship Specialty Start Date End Date Federico Vigil MD [address] [place] [address] PCP - General Family Medicine 04/27/17 Clothes Designer Relationship Specialty Start Date End Date Federico Vigil MD [address] [place] [address] PCP - General Family Medicine 04/27/17 Clothes Designer Relationship Specialty Start Date End Date Federcio Vigil MD [address] [place] [address] PCP - General Family Medicine 04/27/17 Team [...] MD Attending Provider, Referring Pr ovider Active Clothes Designer Relationship Specialty Start Date End Date Federico Vigil MD [address] [place] [address] PCP - General Family Medicine 04/27/17 Clothes Designer Relationship Specialty Start Date End Date Federico Vigil MD [address] [place] [address] PCP - General Family Medicine 04/27/17 Clothes Designer Relationship Specialty Start Date End Date Federico Vigil MD [address] [place] [address] PCP - General Family Medicine 04/27/17 Clothes Designer Relationship Specialty Start Date End Date Federico Vigil MD [address] [place] [address] PCP - General Family Medicine 04/27/17 Team [...] Seo MD Attending Provider, Referring Provider Active Clothes Designer Relationship Specialty Start Date End Date Federico Vigil MD [address] [place] [address] PCP - General Family Medicine 04/27/17 Clothes Designer Relationship Specialty Start Date End Date Federico Vigil MD [address] [facility] [address] PCP - General Family Medicine 04/27/17 Clothes Designer Relationship Specialty Start Date End Date Federico Vigil MD [address] [place] [address] PCP - General Family Medicine 04/27/17 Team Status: Inactive Member Role Status Dates Dr. Federico Vigil MD Primary Care Provider Active Dr. Merrick Abreu DO Attending Provider, Emergency Pr ovider Active Clothes Designer Relationship Specialty Start Date End Date Federico Vigil MD [address] [place] [address] PCP - General Family Medicine 04/27/17 Clothes Designer Relationship Specialty Start Date End Date Federico Vigil MD [address] [place] [address] PCP - General Family Medicine 04/27/17 Clothes Designer Relationship Specialty Start Date End Date Federico Vigil MD [address] [place] [address] PCP - General Family Medicine 04/27/17 Clothes Designer Relationship Specialty Start Date End Date Federico Vigil MD [address] [place] [address] PCP - General Family Medicine 04/27/17 Clothes Designer Relationship Specialty Start Date End Date Federico Vigil MD [address] [place] [address] PCP - General Family Medicine 04/27/17 Clothes Designer Relationship Specialty Start Date End Date Federico Vigil MD [address] [place] [address] PCP - General Family Medicine 04/27/17 Clothes Designer Relationship Specialty Start Date End Date Federico Vigil MD [address] [place] [address] PCP - General Family Medicine 04/27/17 Clothes Designer Relationship Specialty Start Date End Date Federico Vigil MD [address] [place] [address] PCP - General Family Medicine 04/27/17 Clothes Designer Relationship Specialty Start Date End Date Federico Vigil MD [address] [place] [address] PCP - General Family Medicine 04/27/17 Clothes Designer Relationship Specialty Start Date End Date Federico Vigil MD [address] [place] [address] PCP - General Family Medicine 04/27/17 Clothes Designer Relationship Specialty Start Date End Date Federico Vigil MD [address] [place] [address] PCP - General Family Medicine 04/27/17 Clothes Designer Relationship Specialty Start Date End Date Federico Vigil MD [address] [place] [address] PCP - General Family Medicine 04/27/17 Clothes Designer Relationship Specialty Start Date End Date Federico Vigil MD [address] [place] [address] PCP - General Family Medicine 04/27/17 Team Status: Inactive Member Role Status Dates Dr. Federico Vigil MD Primary Care Provider Active Dr. Cabrera Ngo DO Emergency Provider Active Clothes Designer Relationship Specialty Start Date End Date Federico Vigil MD [address] [place] [address] PCP - General Family Medicine 04/27/17 Clothes Designer Relationship Specialty Start Date End Date Federico Vigil MD [address] [place] [address] PCP - General Family Medicine 04/27/17 Clothes Designer Relationship Specialty Start Date End Date Federico Vigil MD [address] [place] [address] PCP - General Family Medicine 04/27/17 Clothes Designer Relationship Specialty Start Date End Date Federico Vigil MD [address] [place] [address] PCP - General Family Medicine 04/27/17 Clothes Designer Relationship Specialty Start Date End Date Federico Vigil MD [address] [place] [address] PCP - General Family Medicine 04/27/17 Clothes Designer Relationship Specialty Start Date End Date Federico Vigil MD [address] [place] [address] PCP - General Family Medicine 04/27/17 Clothes Designer Relationship Specialty Start Date End Date Federico Vigil MD [address] [place] [address] PCP - General Family Medicine 04/27/17 Team [...] Dr. Hang Pool MD Attending Provider Active Clothes Designer Relationship Specialty Start Date End Date Federico Vigil MD [address] [place] [address] PCP - General Family Medicine 04/27/17 Team Status: Inactive Member Role Status Dates Dr. Federico Vigil MD Primary Care Provider Active Barbara Canada CONTROL OPERATOR, CONTROL OPERATOR-C Attending Provider, Referring P rovider Active Clothes Designer Relationship Specialty Start Date End Date Federico Vigil MD [address] [place] [address] PCP - General Family Medicine 04/27/17 Clothes Designer Relationship Specialty Start Date End Date Federico Vigil MD [address] [place] [address] PCP - General Family Medicine 04/27/17 Clothes Designer Relationship Specialty Start Date End Date Federico Vigil MD [address] [place] [address] PCP - General Family Medicine 04/27/17 Clothes Designer Relationship Specialty Start Date End Date Federico Vigil MD [address] [place] [address] PCP - General Family Medicine 04/27/17 Clothes Designer Relationship Specialty Start Date End Date Federico Vigil MD [address] [place] [address] PCP - General Family Medicine 04/27/17 Team Status: Inactive Member Role Status Dates Dr. Federico Vigil MD Primary Care Provider, Referr ing Provider Active Elham WESLEY, PA Attending Provider Active Team Status: Inactive Member Role Status Dates Dr. Federico Vigil MD Primary Care Provider, Referr ing Provider Active Abram Mckeon CONTROL OPERATOR, CONTROL OPERATOR-C Attending Provider Active Team Status: Inactive Member Role Status Dates Dr. Federico Vigil MD Primary Care Provider Active Abram Mckeon CONTROL OPERATOR, CONTROL OPERATOR-C Attending Provider, Referring Pro vider Active Clothes Designer Relationship Specialty Start Date End Date Federico Vigil MD [address] [place] [address] PCP - General Family Medicine 04/27/17 Clothes Designer Relationship Specialty Start Date End Date Federico Vigil MD [address] [place] [address] PCP - General Family Medicine 04/27/17 Clothes Designer Relationship Specialty Start Date End Date Federico Vigil MD [address] [place] [address] PCP - General Family Medicine 04/27/17 Team Status: Inactive Member Role Status Dates Dr. Federico Vigil MD Primary Care Provider Active Dr. Hang Pool MD Attending Provider Active Clothes Designer Relationship Specialty Start Date End Date Federico Vigil MD [address] [place] [address] PCP - General Family Medicine 04/27/17 Clothes Designer Relationship Specialty Start Date End Date Federico Vigil MD [address] [place] [address] PCP - General Family Medicine 04/27/17 Clothes Designer Relationship Specialty Start Date End Date Federico Vigil MD [address] [place] [address] PCP - General Family Medicine 04/27/17 Clothes Designer Relationship Specialty Start Date End Date Federico Vigil MD [address] [place] [address] PCP - General Family Medicine 04/27/17 Team Status: Inactive Member Role Status Dates Dr. Federico Vigil MD Primary Care Provider Active Dr. Hang Pool MD Attending Provider, Referring Pr ovider Active Clothes Designer Relationship Specialty Start Date End Date Federico Vigil MD [address] [place] [address] PCP - General Family Medicine 04/27/17 Clothes Designer Relationship Specialty Start Date End Date Federico Vigil MD [address] [place] [address] PCP - General Family Medicine 04/27/17 Clothes Designer Relationship Specialty Start Date End Date Federico Vigil MD [address] [place] [address] PCP - General Family Medicine 04/27/17 Clothes Designer Relationship Specialty Start Date End Date Federico Vigil MD [address] [place] [address] PCP - General Family Medicine 04/27/17 Clothes Designer Relationship Specialty Start Date End Date Federico Vigil MD [address] [place] [address] PCP - General Family Medicine 04/27/17 Clothes Designer Relationship Specialty Start Date End Date Federico Vigil MD [address] [place] [address] PCP - General Family Medicine 04/27/17 Clothes Designer Relationship Specialty Start Date End Date Federico Vigil MD [address] [place] [address] PCP - General Family Medicine 04/27/17 Agustin Fenton MD Food And Drug Inspector 12/27/23 01/26/24 Clothes Designer Relationship Specialty Start Date End Date Federico Vigil MD [address] [place] [address] PCP - General Family Medicine 04/27/17 Agustin Fenton MD Food And Drug Inspector 12/27/23 01/26/24 Clothes Designer Relationship Specialty Start Date End Date Federico Vigil MD [address] [place] [address] PCP - General Family Medicine 04/27/17 Agustin Fenton MD Food And Drug Inspector 12/27/23 01/26/24 Clothes Designer Relationship Specialty Start Date End Date Federico Vigil MD [address] [place] [address] PCP - General Family Medicine 04/27/17 Agustin Fenton MD Food And Drug Inspector 12/27/23 01/26/24 Clothes Designer Relationship Specialty Start Date End Date Federico Vigil MD [address] [place] [address] PCP - General Family Medicine 04/27/17 Agustin Fenton MD Food And Drug Inspector 12/27/23 01/26/24 Clothes Designer Relationship Specialty Start Date End Date Federico Vigil MD [address] [place] [address] PCP - General Family Medicine 04/27/17 Agustin Fenton MD Food And Drug Inspector 12/27/23 01/26/24 Clothes Designer Relationship Specialty Start Date End Date Federico Vigil MD [address] [place] [address] PCP - General Family Medicine 04/27/17 Agustin Fenton MD Food And Drug Inspector 12/27/23 01/26/24 Clothes Designer Relationship Specialty Start Date End Date Federico Vigil MD [address] [place] [address] PCP - General Family Medicine 04/27/17 Agustin Fenton MD Food And Drug Inspector 12/27/23 01/26/24 Clothes Designer Relationship Specialty Start Date End Date Federico Vigil MD [address] [place] [address] PCP - General Family Medicine 04/27/17 Clothes Designer Relationship Specialty Start Date End Date Federico Vigil MD [address] [place] [address] PCP - General Family Medicine 04/27/17 Clothes Designer Relationship Specialty Start Date End Date Federico Vigil MD [address] [place] [address] PCP - General Family Medicine 04/27/17 Clothes Designer Relationship Specialty Start Date End Date Federico Vigil MD [address] [place] [address] PCP - General Family Medicine 04/27/17 Clothes Designer Relationship Specialty Start Date End Date Federico Vigil MD [address] [facility] [address] PCP - General Family Medicine 04/27/17 Clothes Designer Relationship Specialty Start Date End Date Federico Vigil MD [address] [place] [address] PCP - General Family Medicine 04/27/17 Clothes Designer Relationship Specialty Start Date End Date Federico Vigil MD [address] [place] [address] PCP - General Family Medicine 04/27/17 Juan Oliver MD [address] [place] [address] Anesthesiology 04/23/24 Radha Seo [address] [place] [address] Rheumatology 04/23/24 Clothes Designer Relationship Specialty Start Date End Date Federico Vigil MD [address] [place] [address] PCP - General Family Medicine 04/27/17 Juan Oliver MD [address] [facility] [address] [place] [address] Anesthesiology 04/23/24 Radha Seo [address] [facility] [address] Rheumatology 04/23/24 Clothes Designer Relationship Specialty Start Date End Date Federico Vigil MD [address] [facility] [address] PCP - General Family Medicine 04/27/17 Juan Oliver MD [address] [facility] [address] [place] [address] Anesthesiology 04/23/24 Radha Seo [address] [facility] [address] Rheumatology 04/23/24 Clothes Designer Relationship Specialty Start Date End Date Federico Vigil MD [address] [facility] [address] PCP - General Family Medicine 04/27/17 Juan Oliver MD [address] [place] [address] Anesthesiology 04/23/24 Rahda Seo [address] [place] [address] Rheumatology 04/23/24 Clothes Designer Relationship Specialty Start Date End Date Federico Vigil MD [address] [facility] [address] PCP - General Family Medicine 04/27/17 Juan Oliver MD [address] [facility] [address] [place] [address] Anesthesiology 04/23/24 Radha Seo [address] [facility] [place] [address] Rheumatology 04/23/24 Clothes Designer Relationship Specialty Start Date End Date Federico Vigil MD [address] [facility] [address] PCP - General Family Medicine 04/27/17 Juan Oliver MD [address] [facility] [address] [place] [address] Anesthesiology 04/23/24 Radha Seo [address] [facility] [place] [address] Rheumatology 04/23/24 Clothes Designer Relationship Specialty Start Date End Date Federico Vigil MD [address] [facility] [address] PCP - General Family Medicine 04/27/17 Juan Oliver MD [address] [facility] [address] [place] [address] Anesthesiology 04/23/24 Radha Seo [address] [place] [address] Rheumatology 04/23/24 Clothes Designer Relationship Specialty Start Date End Date Federico Vigil MD [address] [place] [address] PCP - General Family Medicine 04/27/17 Juan Oliver MD [address] [facility] [address] [place] [address] Anesthesiology 04/23/24 Radha Seo [address] [place] [address] Rheumatology 04/23/24 Clothes Designer Relationship Specialty Start Date End Date Federico Vigil MD [address] [place] [address] PCP - General Family Medicine 04/27/17 Juan Oliver MD [address] [facility] [address] [place] [address] Anesthesiology 04/23/24 Radha Seo [address] [place] [address] Rheumatology 04/23/24 Clothes Designer Relationship Specialty Start Date End Date Federico Vigil MD [address] [place] [address] PCP - General Family Medicine 04/27/17 Juan Oliver MD [address] [place] [address] Anesthesiology 04/23/24 Radha Seo [address] [place] [address] Rheumatology 04/23/24 Ruth Miranda APRN.THRESHING MACHINE OPERATOR [address] [place] [address] Food And Drug Inspector Family Medicine 06/24/24 Clothes Designer Relationship Specialty Start Date End Date Federico Vigil MD [address] [place] [address] PCP - General Family Medicine 04/27/17 Juan Oliver MD [address] [place] [address] Anesthesiology 04/23/24 Radha Seo [address] [place] [address] Rheumatology 04/23/24 Ruth Miranda APRN.THRESHING MACHINE OPERATOR [address] [place] [address] Food And Drug Inspector Family [facility] 06/24/24 Clothes Designer Relationship Specialty Start Date End Date Federico Vigil MD [address] [place] [address] PCP - General Family Medicine 04/27/17 Juan Oliver MD [address] [place] [address] Anesthesiology 04/23/24 Radha Seo [address] [facility] [place] [address] Rheumatology 04/23/24 Ruth Miranda, BOARD CERTIFIED ARTS THERAPIST.THRESHING MACHINE OPERATOR [address] [place] [address] Food And Drug Inspector Family Medicine 06/24/24 Phani Rajan APRN.THRESHING MACHINE OPERATOR [address] [place] [address] Food And Drug Inspector [facility] 07/03/24 Clothes Designer Relationship Specialty Start Date End Date Federico Vigil MD [address] [place] [address] PCP - General Family Medicine 04/27/17 Juan Oliver MD [address] [place] [address] Anesthesiology 04/23/24 Radha Seo [address] [place] [address] Rheumatology 04/23/24 Ruth Miranda, BOARD CERTIFIED ARTS THERAPIST.THRESHING MACHINE OPERATOR [address] [place] [address] Food And Drug Inspector Family Medicine 06/24/24 Phani Rajan APRN.THRESHING MACHINE OPERATOR [address] [place] [address] Food And Drug Inspector Family [facility] 07/03/24 Clothes Designer Relationship Specialty Start Date End Date Federico Vigil MD [address] [place] [address] PCP - General Family Medicine 04/27/17 Juan Oliver MD [address] [place] [address] Anesthesiology 04/23/24 Radha Seo [address] [place] [address] Rheumatology 04/23/24 Ruth Miranda, BOARD CERTIFIED ARTS THERAPIST.THRESHING MACHINE OPERATOR [address] [place] [address] Food And Drug Inspector [facility] [place] 06/24/24 Phani Rajan, BOARD CERTIFIED ARTS THERAPIST.THRESHING MACHINE OPERATOR [address] [place] [address] Food And Drug Inspector Family [facility] 07/03/24 Clothes Designer Relationship Specialty Start Date End Date Federico Vigil MD [address] [place] [address] PCP - General Family Medicine 04/27/17 Juan Oliver MD [address] [place] [address] Anesthesiology 04/23/24 Radha Seo [address] [place] [address] Rheumatology 04/23/24 Ruth Miranda APRN.THRESHING MACHINE OPERATOR [address] [place] [address] Food And Drug Inspector Family Medicine 06/24/24 Phani Rajan APRN.THRESHING MACHINE OPERATOR [address] [place] [address] Food And Drug Inspector [facility] [place] 07/03/24 Clothes Designer Relationship Specialty Start Date End Date Federico Vigil MD [address] [place] [address] PCP - General Family Medicine 04/27/17 Juan Oliver MD [address] [place] [address] Anesthesiology 04/23/24 Radha Seo [address] [place] [address] Rheumatology 04/23/24 Ruth Miranda APRN.THRESHING MACHINE OPERATOR [address] [place] [address] Food And Drug Inspector Family Medicine 06/24/24 Phani Rajan APRN.THRESHING MACHINE OPERATOR [address] [place] [address] [facility] [place] 07/03/24 Clothes Designer Relationship Specialty Start Date End Date Federico Vigil MD [address] [place] [address] PCP - General Family Medicine 04/27/17 Juan Oliver MD [address] [place] [address] Anesthesiology 04/23/24 Radha Seo [address] [place] [address] Rheumatology 04/23/24 Ruth Miranda APRN.THRESHING MACHINE OPERATOR [address] [place] [address] Food And Drug Inspector Family Medicine 06/24/24 Phani Rajan APRN.THRESHING MACHINE OPERATOR [address] [place] [address] Food And Drug Inspector Family [facility] 07/03/24 Clothes Designer Relationship Specialty Start Date End Date Federico Vigil MD [address] [place] [address] PCP - General Family Medicine 04/27/17 Juan Oliver MD [address] [place] [address] Anesthesiology 04/23/24 Radha Seo [address] [place] [address] Rheumatology 04/23/24 Ruth Miranda APRN.THRESHING MACHINE OPERATOR [address] [place] [address] Food And Drug Inspector Family Medicine 06/24/24 Phani Rajan APRN.THRESHING MACHINE OPERATOR [address] [place] [address] Food And Drug Inspector Family Medicine 07/03/24 Clothes Designer Relationship Specialty Start Date End Date Federico Vigli MD [address] [place] [address] PCP - General Family Medicine 04/27/17 Juan Oliver MD [address] [place] [address] Anesthesiology 04/23/24 Radha Seo [address] [place] [address] Rheumatology 04/23/24 Ruth Miranda, BOARD CERTIFIED ARTS THERAPIST.THRESHING MACHINE OPERATOR [address] [place] [address] Food And Drug Inspector Family Medicine 06/24/24 Phani Rajan BOARD CERTIFIED ARTS THERAPIST.THRESHING MACHINE OPERATOR [address] [place] [address] Food And Drug Inspector [facility] [place] 07/03/24 Clothes Designer Relationship Specialty Start Date End Date Federico Vigil MD [address] [place] [address] PCP - General Family Medicine 04/27/17 Juan Oliver MD [address] [place] [address] Anesthesiology 04/23/24 Radha Seo [address] [place] [address] Rheumatology 04/23/24 Ruth Miranda, BOARD CERTIFIED ARTS THERAPIST.THRESHING MACHINE OPERATOR [address] [place] [address] Food And Drug Inspector Family Medicine 06/24/24 Phani Rajan, BOARD CERTIFIED ARTS THERAPIST.THRESHING MACHINE OPERATOR [address] [place] [address] Food And Drug Inspector [facility] [place] 07/03/24 Clothes Designer Relationship Specialty Start Date End Date Federico Vigil MD [address] [place] [address] PCP - General Family Medicine 04/27/17 Juan Oliver MD [address] [place] [address] Anesthesiology 04/23/24 Radha Seo [address] [place] [address] Rheumatology 04/23/24 Ruth Miranda BOARD CERTIFIED ARTS THERAPIST.THRESHING MACHINE OPERATOR [address] [place] [address] Food And Drug Inspector [facility] [place] 06/24/24 Phani Rajan, BOARD CERTIFIED ARTS THERAPIST.THRESHING MACHINE OPERATOR [address] [place] [address] Food And Drug Inspector [facility] [place] 07/03/24 Clothes Designer Relationship Specialty Start Date End Date Federico Vigil MD [address] [place] [address] PCP - General Family Medicine 04/27/17 Juan Olivre MD [address] [place] [address] Anesthesiology 04/23/24 Radha Seo [address] [place] [address] Rheumatology 04/23/24 Ruth Miranda, BOARD CERTIFIED ARTS THERAPIST.THRESHING MACHINE OPERATOR [address] [place] [address] Food And Drug Inspector Family Medicine 06/24/24 Phani Rajan, BOARD CERTIFIED ARTS THERAPIST.THRESHING MACHINE OPERATOR [address] [place] [address] Food And Drug Inspector Family Medicine 07/03/24 Team Status: Active Member Role Status Dates Dr. Federico Vigil MD Primary Care Provider Active Team Status: Inactive Member Role Status Dates Dr. Federico Vigil MD Primary Care Provider Active Start: August 20, 2024 End: August 20, 2024 Dr. Federico Vigil MD Referring Provider Active Start: August 20, 2024 End: August 20, 2024 Karine WESLEY, PA Attending Provider Active Start: August 20, [...] Inactive Member Role Status Dates Dr. Federico Vigli MD Primary Care Provider Active Start: November [...] Status: Active Member Role Status Dates Karine WESLEY, PA Attending Provider Active Start: November 28, 2024 Karine WESLEY, PA Referring Provider Active Start: November 28, [...] Status: Inactive Member Role Status Dates Karine Brasher PA, PA Attending Provider Active Start: November 28, 2024 End: November 28, 2024 Karine Brasher PA, PA Referring Provider Active Start: November 28, [...] December 13, 2024 End: December 13, 2024 Team Status: Active Member Role Status Dates Dr. Michael Ko MD Primary Care Provider Active Start: December 12, 2024 Dr. Miller Alexandre MD Attending Provider Active S tart: December 12, 2024 MARYJANE Hunter Referring Provider Active Star t: December 12, 2024 Team Status: Inactive Member Role Status Dates Dr. Michael Ko MD Primary Care Provider Active Start: January 08, 2025 End: January 08, 2025 Dr. Osbaldo Vernon MD Attending Provider Active Start: January 08, 2025 End: January 08, 2025 Dr. Osbaldo Vernon MD Referring Provider Active Start: January 08, 2025 End: January 08, 2025 Team Status: Active Member Role/Relationship Status Dates Dr. Michael Ko MD Primary Care Provider Active Team Status: Inactive Member Role/Relationship Status Dates Dr. Federico Vigil MD Primary Care Provider Active Start: November 14, 2024 End: November 14, 2024 Dr. Federico Vigil MD Referring Provider Active Start: November 14, 2024 End: November 14, 2024 MARYJANE Hunter Attending Provider Active Star t: November 14, 2024 End: November 14, 2024 Team Status: Inactive Member Role/Relationship Status Dates Dr. Federico Vigil MD Primary Care Provider Active Start: November 21, 2024 End: November 21, 2024 Dr. Juan Oliver MD Attending Provider Active Start: November 21, 2024 End: November 21, 2024 Dr. Juan Oliver MD Referring Provider Active Start: November 21, 2024 End: November 21, 2024 Team Status: Inactive Member Role/Relationship Status Dates Dr. Federico Vigil MD Primary Care Provider Active Start: November 27, 2024 End: November 27, 2024 Dr. Juan Oliver MD Attending Provider Active Start: November 27, 2024 End: November 27, 2024 Dr. Juan Oliver MD Referring Provider Active Start: November 27, 2024 End: November 27, 2024 Team Status: Inactive Member Role/Relationship Status Dates Karine WESLEY PA Attending Provider Active Start: November 28, 2024 End: November 28, 2024 Karine WESLEY PA Referring Provider Active Start: November 28, 2024 End: November 28, 2024 Dr. Michael Ko MD Primary Care Provider Active Start: November 28, 2024 End: November 28, 2024 Team Status: Active Member Role/Relationship Status Dates Dr. Michael Ko MD Primary Care Provider Active Start: November 28, 2024 Dr. Osbaldo Vernon MD Attending Provider Active Start: November 28, 2024 Team Status: Inactive Member Role/Relationship Status Dates Dr. Michael Ko MD Primary Care Provider Active Start: November 29, 2024 End: November 29, 2024 Dr. Osbaldo Vernon MD Attending Provider Active Start: November 29, 2024 End: November 29, 2024 Dr. Osbaldo Vernon MD Referring Provider Active Start: November 29, 2024 End: November 29, 2024 Team Status: Inactive Member Role/Relationship Status Dates Dr. Michael Ko MD Primary Care Provider Active Start: December 11, 2024 End: December 11, 2024 Dr. Michael Ko MD Attending Provider Active Start: December 11, 2024 End: December 11, 2024 Dr. Michael Ko MD Referring Provider Active Start: December 11, 2024 End: December 11, 2024 Team Status: Inactive Member Role/Relationship Status Dates Dr. Federico Vigil MD Referring Provider Active Start: December 11, 2024 End: December 11, 2024 Dr. Osbaldo Vernon MD Attending Provider Active Start: December 11, 2024 End: December 11, 2024 Dr. Michael Ko MD Primary Care Provider Active Start: December 11, 2024 End: December 11, 2024 Team Status: Inactive Member Role/Relationship Status Dates MARYJANE Hunter Attending Provider Active Star t: December 12, 2024 End: December 12, 2024 MARYJANE Hunter Referring Provider Active Star t: December 12, 2024 End: December 12, 2024 Dr. Michael Ko MD Primary Care Provider Active Start: December 12, 2024 End: December 12, 2024 Team Status: Active Member Role/Relationship Status Dates Dr. Michael Ko MD Primary Care Provider Active Start: December 12, 2024 Dr. Miller Alexandre MD Attending Provider Active S tart: December 12, 2024 MARYJANE Hunter Referring Provider Active Star t: December 12, 2024 Team Status: Inactive Member Role/Relationship Status Dates Dr. Michael Ko MD Primary Care Provider Active Start: December 13, 2024 End: December 13, 2024 Dr. Michael Ko MD Attending Provider Active Start: December 13, 2024 End: December 13, 2024 Dr. Michael oK MD Referring Provider Active Start: December 13, 2024 End: December 13, 2024 Team Status: Inactive Member Role/Relationship Status Dates Dr. Michael Ko MD Primary Care Provider Active Start: January 08, 2025 End: January 08, 2025 Dr. Osbaldo Vernon MD Attending Provider Active Start: January 08, 2025 End: January 08, 2025 Dr. Osbaldo Vernon MD Referring Provider Active Start: January 08, 2025 End: January 08, 2025 Team Status: Active Member Role/Relationship Status Dates Dr. Michael Ko MD Primary Care Provider Active Start: January 21, 2025 Abram Mckeon CONTROL OPERATOR, CONTROL OPERATOR-C Attending Provider Active S tart: January 21, 2025 Abram Mckeon CONTROL OPERATOR, CONTROL OPERATOR-C Referring Provider Active S tart: January 21, 2025 Dr. Osbaldo Vernon MD Other Provider Active Star t: January 21, 2025 Team Status: Inactive Member Role/Relationship Status Dates Dr. Michael Ko MD Primary Care Provider Active Start: January 22, 2025 End: January 22, 2025 Dr. Michael Ko MD Referring Provider Active Start: January 22, 2025 End: January 22, 2025 Abram Mckeon CONTROL OPERATOR, CONTROL OPERATOR-C Attending Provider Active S tart: January 22, 2025 End: January 22, 2025 Clothes Designer Relationship Specialty Start Date End Date Federico Vigil MD [address] [place], [place] [address] PCP - General Family Medicine 04/27/17 Juan Oliver MD [address] [place] [address] Anesthesiology 04/23/24 Radha Seo [address] [place] [address] Rheumatology 04/23/24 Phani Rajan APRN.THRESHING MACHINE OPERATOR [address] [place] [address] Food And Drug Inspector Family Medicine 07/03/24 Team Status: Inactive Member Role/Relationship Status Dates Dr. Michael Ko MD Primary Care Provider Active Start: January 21, 2025 End: January 21, 2025 Abram Mckeon CONTROL OPERATOR, CONTROL OPERATOR-C Attending Provider Active S tart: January 21, 2025 End: January 21, 2025 Abram Mckeon CONTROL OPERATOR, CONTROL OPERATOR-C Referring Provider Active S tart: January 21, 2025 End: January 21, 2025 Dr. Osbaldo Vernon MD Other Provider Active Star t: January 21, 2025 End: January 21, 2025 Team Status: Inactive Member Role/Relationship Status Dates Dr. Michael Ko MD Primary Care Provider Active Start: February 01, 2025 End: February 01, 2025 Dr. Juan Oliver MD Attending Provider Active Start: February 01, 2025 End: February 01, 2025 Dr. Juan Oliver MD Referring Provider Active Start: February 01, 2025 End: February 01, 2025 Team Status: Inactive Member Role/Relationship Status Dates Dr. Michael Ko MD Primary Care Provider Active Start: March 07, 2025 End: March 07, 2025 Dr. Michael Ko MD Referring Provider Active Start: March 07, 2025 End: March 07, 2025 Dr. Lavelle Del Cid MD Attending Provider Active Start: March 07, 2025 End: March 07, 2025 Team Status: Active Member Role/Relationship Status Dates Dr. Michael Ko MD Primary care physician Active Team Status: Inactive Member Role/Relationship Status Dates Dr. Michael Ko MD Primary care physician Active Start: January 08, 2025 End: January 08, 2025 Dr. Osbaldo Vernon MD Attending physician Active Start: January 08, 2025 End: January 08, 2025 Dr. Osbaldo Vernon MD Referring Provider Active Start: January 08, 2025 End: January 08, 2025 Team Status: Inactive Member Role/Relationship Status Dates Dr. Michael Ko MD Primary care physician Active Start: January 21, 2025 End: January 21, 2025 Abram Mckeon CONTROL OPERATOR, CONTROL OPERATOR-C Attending physician Active Start: January 21, 2025 End: January 21, 2025 Abram Mckeon CONTROL OPERATOR, CONTROL OPERATOR-C Referring Provider Active S tart: January 21, 2025 End: January 21, 2025 Dr. Osbaldo Vernon MD Nurse Practitioner Active Start: January 21, 2025 End: January 21, 2025 Team Status: Inactive Member Role/Relationship Status Dates Dr. Michael Ko MD Primary care physician Active Start: January 22, 2025 End: January 22, 2025 Dr. Michael Ko MD Referring Provider Active Start: January 22, 2025 End: January 22, 2025 Abram Mckeon CONTROL OPERATOR, CONTROL OPERATOR-C Attending physician Active Start: January 22, 2025 End: January 22, 2025 Team Status: Inactive Member Role/Relationship Status Dates Dr. Michael Ko MD Primary care physician Active Start: February 01, 2025 End: February 01, 2025 Dr. Juan Oliver MD Attending physician Active Start: February 01, 2025 End: February 01, 2025 Dr. Juan Oliver MD Referring Provider Active Start: February 01, 2025 End: February 01, 2025 Team Status: Inactive Member Role/Relationship Status Dates Dr. Michael Ko MD Primary care physician Active Start: March 07, 2025 End: March 07, 2025 Dr. Michael Ko MD Referring Provider Active Start: March 07, 2025 End: March 07, 2025 Dr. Lavelle Del Cid MD Attending physician Active Start: March 07, 2025 End: March 07, 2025 Team Status: Inactive Member Role/Relationship Status Dates Dr. Michael Ko MD Primary care physician Active Start: March 27, 2025 End: March 27, 2025 Abram Mckeon CONTROL OPERATOR, CONTROL OPERATOR-C Attending physician Active Start: March 27, 2025 End: March 27, 2025 Abram Mckeon CONTROL OPERATOR, CONTROL OPERATOR-C Referring Provider Active S tart: March 27, 2025 End: March 27, 2025 Goals (unrecognized section and content) Goals may [...] BE BASED ON THE PRIMARY CLINICAL RECORDS. [facility]. provides no warranty or guarantee of the accuracy or completeness of information in this document.
[2025-05-25 18:39] VITALS: BP 174/58; PULSE 69; RESP 17; O2SAT 98
[2025-05-25 19:25] VITALS: BP 157/98; PULSE 65; RESP 18; TEMP 36.6; O2SAT 99
--- NOTE | 2025-05-25 20:00 | ED.RN ---
Pt l/ arm wrapped with tefla and kerlex per Dr. Abreu. pt provided sling and instructed on application per Dr. Abreu
[2025-05-25 20:01] VITALS: BP 157/98; PULSE 65; RESP 18; TEMP 36.6; O2SAT 99
--- NOTE | 2025-05-25 20:05 | EDS_ITS ---
HPI History of Present Illness Chief Complaint: Fall Informant: patient and spouse/S.O. Narrative Narrative: Patient is a 79-year-old male with past med history of hypertension hyperlipidemia paroxysmal atrial fibrillation currently on Eliquis. He states that roughly an hour prior to arrival he was walking [place] when he missed the curb and this caused him to trip falling and landing on his left side. He does state he struck his head but denies any loss of consciousness. He reports pain in his left elbow and left hand. was present and saw the fall and confirms no LOC. However with the head trauma and history of blood thinner use there was concern for internal injury and therefore he was brought to the hospital for evaluation. [facility] Medical History (Updated 05/27/25 @ 01:[address] Merrick Abreu DO) Current use of residential anticoagulation HFrEF (heart failure with reduced ejection fraction) Ischemic cardiomyopathy Mitral insufficiency Compression fracture of vertebra Closed compression fracture of L5 vertebra Intractable low back pain Wears hearing aid Loss of hearing Wears glasses Wears dentures History of steroid therapy Back pain Walker as ambulation aid Arthritis DDD (degenerative disc disease) Low iron Excessive bleeding High cholesterol Diverticulosis History of diverticulitis Former smoker Shortness of breath on exertion History of CHF (congestive heart failure) Leg cramps History of echocardiogram History of stress test Cardiology follow-up encounter Cervical radiculopathy Anemia Weight gain Edema Other cervical disc degeneration, mid-cervical region, unspecified level Bradycardia Lightheadedness Fatigue Presence of stent in coronary artery (~10/06/22) Atherosclerotic heart disease of [place] coronary artery without angina pectoris Dyslipidemia Cardiomyopathy SOB (shortness of breath) Snoring Erectile dysfunction Avascular necrosis Allergic rhinitis Diverticulosis of colon Benign neoplasm of colon Hepatomegaly PAD (peripheral artery disease) Essential (primary) hypertension Mixed hyperlipidemia Atrial fibrillation Prominent abdominal aortic pulsation Subclavian arterial stenosis Carotid stenosis, bilateral GERD (gastroesophageal reflux disease) CAD (coronary artery disease) Gout Osteoarthritis Chronic back pain Home Medications Medication Instructions Recorded Last Taken Type simvastatin 20 mg tablet 20 mg PO QPM cholesterol 06/19/24 History allopurinol 100 mg tablet 100 mg PO BID gout 09/07/22 06/19/24 History pantoprazole 20 mg tablet,delayed 20 mg PO DAILY reflu x 09/07/22 01/08/25 History release melatonin 5 mg capsule 5 mg PO QHS sleep 09/10/22 1 08/20/23 History polyethylene glycol 3350 17 gram 17 g PO DAILY PRN CON STIPATION 02/16/24 06/17/24 History oral powder packet (Miralax) acetaminophen 325 mg capsule 650 mg (2 x 325 mg) PO Q6 H PRN 06/29/24 Unknown Rx fever or pain #30 caps apixaban 5 mg tablet (Eliquis) 5 mg PO BID blood thinn er #180 tabs 07/24/24 01/04/25 Rx gabapentin 300 mg capsule 300 mg PO BID 09/14/24 Unkno wn History carvedilol 6.25 mg tablet 6.25 mg PO BID #180 tabs 04/1101/08/25 Rx aspirin 81 mg tablet 81 mg PO QDAY 03/07/25 Unkno wn History calcium carbonate (Tums) 200 mg PO DAILY 03/07/25 Unk nown History furosemide 40 mg tablet 40 mg PO DAILY PRN Swelling or 03/07/25 Unknown History weight gain vit d3 PO DAILY 03/07/25 Unknown Hi story sacubitril 49 mg-valsartan 51 mg 1 tab PO BID #180 tab s 03/08/25 Unknown Rx tablet (Entresto) potassium chloride 20 mEq 20 meq PO QDAY #30 tabs 03/11 Unknown Rx tablet,extended release oxycodone 5 mg tablet 5 mg PO Q6H PRN pain 5 days #20 05/25/25 Unknown Rx tabs Allergy/AdvReac Type Severity Reaction Status Date / Time indomethacin (From Indocin) Allergy Bleeding Verified 05/25/25 17:18 meloxicam (From Mobic) AdvReac Intermediate Diarrhea Verified 05/25/25 17:18 spironolactone AdvReac Intermediate Dizziness Verified 05/25/25 17:18 and severe headaches Family History Mother CVA (cerebral vascular accident) Heart disease Hypertension CAD (coronary artery disease) Cancer kidney Father Cancer lung Sister Fibromyalgia Brother Cancer prostate Surgical History Status post laminectomy History of cardiac catheterization (~12/2024) History of right-sided carotid endarterectomy (~12/26/23) History of radiofrequency ablation (RFA) for complex left atrial arrhythmia (~12/2022) Presence of coronary angioplasty implant and graft (~10/06/22) History of tonsillectomy and adenoidectomy S/P eye surgery S/P knee replacement S/P hip replacement S/P shoulder replacement Social History Smoking Status: Former smoker quit date: 07/18/71 pack-years: 10 how long ago did patient quit smokin alcohol intake: current alcohol intake frequency: a few times a week Alcohol type: beer substance use type: does not use caffeine: Yes Type: coffee Number of servings: 2 ROS ROS ED Constitutional Constitutional ED: Denies chills or fever(s) Eyes Eyes: Denies blurry vision or change in vision Cardiovascular Cardiovascular: Reports other Details: Negative syncope ; Denies chest pain, palpitations or racing heartbeat Respiratory/Chest Respiratory/Chest: Denies cough or dyspnea Gastrointestinal Gastrointestinal: Denies abdominal pain, diarrhea, nausea or vomiting Musculoskeletal Musculoskeletal: Reports other Details: Positive left elbow and left hand pain ; Denies back pain or neck pain Integumentary Reports Abrasions and other Details: Positive laceration to the forehead and left hand with abrasions/skin tears to the left forearm Neurologic Neurologic: Denies headache(s), paresthesias or weakness Hematologic/Lymphatic Hematologic/Lymphatic: Reports easy bleeding and easy bruising EXAM Physical Exam Const Vital Signs: 05/25/25 17:18 05/25/25 17:19 05/25/25 18:39 Temperature 98.1 F Temperature Source Oral Pulse Rate 72 69 Respiratory Rate 18 17 Respiratory Effort Normal Respiratory Depth Normal Respiratory Pattern Normal Blood Pressure 165/91 H 174/58 H Blood Pressure Mean 115 96 Pulse Ox 100 98 Oxygen Delivery Method Room Air Room Air Room Air 05/25/25 19:25 05/25/25 20:01 Temperature 97.9 F 97.9 F Temperature Source Oral Pulse Rate 65 65 Respiratory Rate 18 18 Respiratory Effort Respiratory Depth Respiratory Pattern Blood Pressure 157/98 H 157/98 H Blood Pressure Mean 117 117 Pulse Ox 99 99 Oxygen Delivery Method Room Air Positive well nourished and well developed General Appearance ED: well developed HEENT HEENT Narrative: Patient has a 2.5 cm linear dermal layer laceration to the left lower portion of the forehead just above the left eyebrow. Next to this laceration is a skin tear that is roughly 1 cm in length. No retained foreign object is noted No signs of depressed or basilar skull fracture No septal hematoma No obvious sign of facial fracture such as orbital floor fracture or muscular entrapment Eyes PERRL and EOMs intact bilaterally Eyes Narrative: No hyphema Neck supple Neck Narrative: No bony deformity or step-off of the cervical spine Patient is able to move his neck in all directions without pain Chest Wall palpation of chest normal Chest Narrative: No bony deformity or subcutaneous emphysema noted Resp normal respiratory effort and clear to auscultation bilaterally Cardio regular rate and regular rhythm Rate: other Other Details: Radial and carotid pulses are equal and symmetric GI normal to inspection, nondistended, normoactive bowel sounds, non-tender, non- distended and no masses GI Narrative: No abrasions or ecchymosis noted over top the abdominal wall No pain with palpation. No pulsatile mass. No peritoneal signs Auscultation: normoactive bowel sounds Palpation: soft Back/Spine Back/Spine Narrative: No bony deformity or step-off of the thoracic or lumbar spine No midline tenderness to palpation Extremity Extremity Narrative: Left upper extremity is neurovascularly intact Along the medial aspect of the left elbow there is a bony prominence concerning for potential avulsion fracture. No sign of joint effusion. No ligamentous or tendon laxity of the left elbow noted Patient has superficial skin tears to the dorsal aspect of the distal third of the forearm with minimal ooze blood and no retained foreign body There is a curvilinear laceration along the lateral aspect of the right hand midway up the fifth metacarpal. This wound is 2 cm in length subcutaneous layer deep with minimal ooze of blood and no retained foreign object. Pelvis is stable there is no shortening or external rotation of either lower extremity. No pain on palpation over top the inguinal region. Patient can move both lower extremities and weight-bear without difficulty. Neuro oriented x3, CN's II-XII intact bilaterally and no sensory deficits noted Sensorium / Orientation: alert Motor Exam: strength 5/5 throughout Psych mental status grossly normal Skin Skin Narrative: Soft tissue injuries to the left sided head as well as forearm and hand as documented above without secondary findings to suggest infection MDM MDM MDM Narrative Medical decision making narrative: Patient arrived to the ER hypertensive but has a past medical history of this and otherwise stable vitals. He reported mechanical fall and therefore I felt no need for cardiac or syncope workup. As he is on Eliquis and struck his head there is concern for traumatic subarachnoid or subdural hemorrhage so a CT of the head was obtained. The patient does not have any midline neck tenderness and is moving his neck in all directions so I have low concern for cervical compression fracture and feel no need for cervical spine CT. with pain and trauma to the left elbow and hand I do feel appropriate to have x-rays obtained to assess for retained foreign object or potential fracture. X-ray of the hand revealed no acute finding. Radiologist felt there was no obvious fracture of the left elbow but the patient does have a bony prominence along the medial epicondyle it is tender to touch and according to and patient was not there prior to the fall and therefore I feel this is a an avulsion fracture. However the area is closed he is neurovascular intact he does not have signs of ligamentous or tendon injury and he has no findings of compartment syndrome so there is no need for emergent orthopedic consultation. The patient will have his left arm placed in a sling to provide stabilization to the apparent avulsion fracture of the left elbow. The lacerations were closed with Dermabond and sutures as documented below. As he does not have a subarachnoid or subdural hemorrhage there is no need for transfer or admission and he is otherwise safe for discharge. The patient had the left side forehead laceration cleaned with chlorhexidine. Manual pressure was then applied to bring the wound edges together with close approximation. Dermabond was then placed over top the wound holding the edges together well. Patient tolerated the procedure without complication Patient had the left hand laceration cleaned with chlorhexidine. Then 4 mL of 2% lidocaine with epinephrine was placed in the wound for anesthesia and injected by local route. Following this four 4-0 Ethilon sutures were placed in simple interrupted fashion bringing the wound edges get there well good approximation. Patient tolerated procedure well without complication History & Record Review Discussion w/independent historian: Patient and Significant other Radiography Diagnostic Testing: Clinical Impression(s) from Imaging Studies Brain CT 05/25/25 17:54 IMPRESSION: No acute intracranial abnormality. Reading Location: [facility] Elbow X-Ray 05/25/25 17:54 IMPRESSION: No acute fracture or dislocation. Reading Location: [facility] Hand X-Ray 05/25/25 17:54 IMPRESSION: No acute fracture or dislocation. Reading Location: [facility] Left hand x-ray as interpreted by the emergency medicine physician reveals no acute fracture dislocation retained foreign Left elbow x-ray as interpreted by the emergency medicine reveals a bony fragmen t off the medial condyle concerning for avulsion fracture. Discharge Plan Triage Chief Complaint: Fall ED Provider: Merrick Abreu Dx/Rx/DC Orders Clinical Impression: Accidental fall, Head injury, Current use of residential anticoagulation, Avulsion injury of left elbow region, Laceration of hand, left, Essential (primary) hypertension, Paroxysmal atrial fibrillation Instructions: ED Head Injury (Adult), ED Laceration, All Closures Prescriptions: New oxycodone 5 mg tablet 5 mg PO Q6H PRN (Reason: pain) 5 Days Qty: 20 0RF No Action simvastatin 20 mg tablet 20 mg PO QPM polyethylene glycol 3350 [Miralax] 17 gram powder in packet 17 g PO DAILY PRN (Reason: CONSTIPATION ) gabapentin 300 mg capsule 300 mg PO BID furosemide 40 mg tablet 40 mg PO DAILY PRN (Reason: Swelling or weight gain) aspirin 81 mg tablet 81 mg PO QDAY vit d3 PO DAILY calcium carbonate [Tums] 200 mg calcium (500 mg) tablet,chewable 200 mg PO DAILY acetaminophen 325 mg capsule 650 mg PO Q6H PRN (Reason: fever or pain) Qty: 30 0RF allopurinol 100 mg tablet 100 mg PO BID pantoprazole 20 mg tablet,delayed release (DR/EC) 20 mg PO DAILY melatonin 5 mg capsule 5 mg PO QHS Eliquis 5 mg tablet 5 mg PO BID Qty: 180 3RF carvedilol 6.25 mg tablet 6.25 mg PO BID Qty: 180 3RF Rx Instructions: must administer with a meal/food Entresto 49-51 mg tablet 1 tab PO BID Qty: 180 3RF potassium chloride 20 mEq tablet extended release 20 meq PO QDAY Qty: 30 11RF Primary Care Provider: Michael oK Chi Referrals: Juan Simon DO [Med Staff - Active Staff, Orthopedics] Michael Ko Chi, MD [Primary Care Provider, Geriatrics] Activity Restrictions/Additional Instructions: Please follow-up with your family doctor or return to the ER in 7 to 10 days for suture removal. Follow-up with orthopedics/Dr. Simon as there is concern that the pain and injury to your left elbow is an acute fracture and not simply arthritis. Wear the sling for stabilization but remember to take your arm out and perform range of motion exercises at least 3 times a day to prevent frozen shoulder. Return to the ER should you have any further concerns Print Language: Croatian Disposition Disposition: Home, Self Care Discharge Date/Time: 05/25/25 20:12
== END 2025-05-25 20:12 | disposition home or self-care (01) ==
PROVIDERS: Emergency Provider Emergency Medicine; PCP Family Medicine Geriatric Medicine; Visit Provider Emergency Medicine
DX: S01.81XA Laceration without foreign body of other part of head, initial encounter (principal); I11.0 Hypertensive heart disease with heart failure; I50.22 Chronic systolic (congestive) heart failure; I48.0 Paroxysmal atrial fibrillation; S61.412A Laceration without foreign body of left hand, initial encounter; W19.XXXA Unspecified fall, initial encounter; I25.10 Atherosclerotic heart disease of native coronary artery without angina pectoris; S59.902A Unspecified injury of left elbow, initial encounter; E78.2 Mixed hyperlipidemia; Z87.891 Personal history of nicotine dependence; Z79.01 Long term (current) use of anticoagulants; Z95.5 Presence of coronary angioplasty implant and graft
CPT/HCPCS: 12001; 12011; 70450; 73080; 73130; 99283

== ENCOUNTER → 2025-06-07 | Outpatient (CLI) | payer MEDICARE, SELFPAY ==
[2025-06-07 09:52] LABS: Hematocrit 35.7 % (40-54); Hemoglobin 11.5 g/dL (13.0-16.5); Immature Granulocytes Count 0.030 X10^3/uL (0.0-0.0); Mean Corp Hgb Conc 32.2 g/dL (32-36); Mean Corpuscular Volume 94.9 fL (80-94); Mean Platelet Vol. 9.2 fl (6.2-12.0); NRBC Flagged by Analyzer 0 % (0-5); Platelet Count 255 K/mm3 (150-450); RBC Distribution Width CV 13.3 % (11.6-14.6); RBC Distribution Width SD 46.0 fl (35.1-43.9); Red Blood Count 3.76 M/mm3 (4.6-6.2); White Blood Count 6.3 K/mm3 (4.4-11.0)
--- NOTE | 2025-06-07 10:20 | RAD_ITS ---
PROCEDURE: SHOULDER MIN 2 VIEWS 06/07/2025 REASON FOR EXAM: PAIN TECHNIQUE: Procedure Code: RADSH Modality: DX Procedure: SHOULDER MIN 2 VIEWS Laterality: FINDINGS: No evidence of acute fracture or dislocation. Mild acromioclavicular and glenohumeral degenerative changes. The left lung apex is clear. RAD/Shoulder min 2 Views IMPRESSION: Osteoarthrosis. Reading Location: [id number]
[2025-06-07 10:52] LABS: AST(SGOT) 20 U/L (<=37); Alanine Aminotransfer ALT/SGPT 12 U/L (<=46); Albumin, Serum 4.0 g/dL (3.4-4.8); Alkaline Phosphatase 83 U/L (40-129); Anion Gap 11 (5-15); BUN 20 mg/dL (4-19); BUN/Creat Ratio 17.6 RATIO (10-20); Calcium,Total 9.4 mg/dL (7.6-11.0); Carbon Dioxide 25.2 mmol/L (21.0-32.0); Chloride 105 mmol/L (98-108); Cholesterol 149 mg/dL (<=200); Globulin 2.7 g/dL (2.2-4.2); Glucose 93 mg/dL (70-99); Low Density Lipoprotein Calc. 83 mg/dL; Potassium 4.1 mmol/L (3.3-5.1); Triglycerides 82 mg/dL; Very Low Density Lipoprotein 16 mg/dL (5-40); cholesterol:hdl ratio screen 2.94
[2025-06-07 17:40] LABS: Xtra Tube Kwok EXTRA TUBE
== END | disposition home or self-care (01) ==
LOC: POLAB3 09:20 → RAD 10:15
PROVIDERS: PCP Family Medicine Geriatric Medicine; Referring Provider Family Medicine Geriatric Medicine; Visit Provider Family Medicine Geriatric Medicine
DX: I50.20 Unspecified systolic (congestive) heart failure (principal); E78.5 Hyperlipidemia, unspecified; M25.512 Pain in left shoulder; I25.10 Atherosclerotic heart disease of native coronary artery without angina pectoris
CPT/HCPCS: 36415; 73030; 80053; 80061; 84443; 85025

== ENCOUNTER 2025-07-01 10:50 | Emergency (ER) | payer MEDICARE, SELFPAY ==
[2025-07-01 10:52] VITALS: BP 92/69; PULSE 66; RESP 18; TEMP 36.3; O2SAT 100; BMI 25.1
--- NOTE | 2025-07-01 11:03 | EKG12_ITS ---
Test Reason : NECK PAIN Blood Pressure : */* mmHG Vent. Rate : 94 BPM Atrial Rate : * BPM P-R Int : * ms QRS Dur : 104 ms QT Int : 358 ms P-R-T Axes : * -65 34 degrees QTcB Int : 447 ms Atrial fibrillation with a competing junctional pacemaker with premature ventricular or aberrantly conducted complexes Left axis deviation Nonspecific ST abnormality Abnormal ECG Confirmed by DEEPAK VIDALES, PETER ([id number]), newspaper editor GRETEL ESPINO ([id number]) on 07/02/2025 1:23:05 PM Referred By: NEIL Confirmed By: PETER SOTELO MD
--- NOTE | 2025-07-01 11:10 | EKG12_ITS ---
Test Reason : CARDIOVERSION Blood Pressure : */* mmHG Vent. Rate : 77 BPM Atrial Rate : 77 BPM P-R Int : 182 ms QRS Dur : 116 ms QT Int : 416 ms P-R-T Axes : 77 -69 41 degrees QTcB Int : 470 ms Normal sinus rhythm with sinus arrhythmia Left anterior fascicular block Abnormal ECG Confirmed by DEEPAK VIDALES, PETER ([id number]), fashion editor GRETEL ESPINO ([id number]) on 07/02/2025 1:23:16 PM Referred By: JUDIE Confirmed By: PETER SOTELO MD
--- NOTE | 2025-07-01 11:11 | EX.ED.DYSGE1 ---
HPI History of Present Illness Chief Complaint: Chest Other Detail of Chief Complaint: Tachycardia Informant: patient and spouse/S.O. Narrative Narrative: Patient presents with high heart rates that he noticed yesterday. Heart rates have been up to 135. He denies chest pain or shortness of breath. He has history of A-fib and is currently on Eliquis. States that he had an ablation 2 years ago and had been doing well since that time. Patient denies recent illness. Has some discomfort in his neck which he has had for over a week and he sees pain management for that. Denies chest pain or exertional symptoms otherwise [facility] Medical History (Updated 07/01/25 @ 14:[address] Rojas Saldaña, DO) Depression Non-smoker Chest pain Hypertension Left elbow contusion Left elbow pain HFrEF (heart failure with reduced ejection fraction) Ischemic cardiomyopathy Mitral insufficiency Compression fracture of vertebra Closed compression fracture of L5 vertebra Intractable low back pain Wears hearing aid Loss of hearing Wears glasses Wears dentures History of steroid therapy Back pain Walker as ambulation aid Arthritis DDD (degenerative disc disease) Low iron Excessive bleeding High cholesterol Diverticulosis History of diverticulitis Former smoker Shortness of breath on exertion History of CHF (congestive heart failure) Leg cramps History of echocardiogram History of stress test Cardiology follow-up encounter Cervical radiculopathy Anemia Weight gain Edema Other cervical disc degeneration, mid-cervical region, unspecified level Bradycardia Lightheadedness Current use of senior care anticoagulation Fatigue Presence of stent in coronary artery (~10/06/22) Atherosclerotic heart disease of [place] coronary artery without angina pectoris Dyslipidemia Cardiomyopathy SOB (shortness of breath) Snoring Erectile dysfunction Avascular necrosis Allergic rhinitis Diverticulosis of colon Benign neoplasm of colon Hepatomegaly PAD (peripheral artery disease) Essential (primary) hypertension Mixed hyperlipidemia Atrial fibrillation Prominent abdominal aortic pulsation Subclavian arterial stenosis Carotid stenosis, bilateral GERD (gastroesophageal reflux disease) CAD (coronary artery disease) Gout Osteoarthritis Chronic back pain Home Medications ?Medication ?Instructions ?Recorded ?Last Taken ?Type allopurinol 100 mg tablet 100 mg PO BID gout 09/07/22 07/01/25 History pantoprazole 20 mg tablet,delayed 20 mg PO DAILY reflux 09/07/22 07/01/25 History release acetaminophen 325 mg capsule 650 mg (2 x 325 mg) PO Q6H PRN 06/29/24 Unknown Rx fever or pain #30 caps gabapentin 300 mg capsule 300 mg PO BID 09/14/24 07/01/25 History carvedilol 6.25 mg tablet 6.25 mg PO BID #180 tabs 12/24/24 07/01/25 Rx aspirin 81 mg tablet 81 mg PO QDAY 03/07/25 Unknown History calcium carbonate (Tums) 200 mg PO DAILY 03/07/25 Unknown History atorvastatin 40 mg tablet (Lipitor) 40 mg PO QDAY #90 tabs 06/06/25 06/30/25 Rx apixaban 5 mg tablet (Eliquis) 5 mg PO BID blood clot 07/01/25 07/01/25 History cholecalciferol (vitamin D3) 25 25 mcg PO DAILY 07/01/25 07/01/25 History mcg (1,000 unit) capsule (Vitamin D3) citalopram 20 mg tablet 20 mg PO DAILY 07/01/25 06/30/25 History furosemide 40 mg tablet 40 mg PO DAILY swelling 07/01/25 06/25/25 History sacubitril 49 mg-valsartan 51 mg 1 tab PO BID 07/01/25 07/01/25 History tablet (Entresto) Allergy/AdvReac Type Severity Reaction Status Date / Time indomethacin (From Indocin) Allergy Bleeding Verified 07/01/25 10:52 meloxicam (From Mobic) AdvReac Intermediate Diarrhea Verified 07/01/25 10:52 spironolactone AdvReac Intermediate Dizziness Verified 07/01/25 10:52 and severe headaches Family History Mother CVA (cerebral vascular accident) Heart disease Hypertension CAD (coronary artery disease) Cancer kidney Father Cancer lung Sister Fibromyalgia Brother Cancer prostate Surgical History Status post laminectomy History of cardiac catheterization (~12/2024) History of right-sided carotid endarterectomy (~12/26/23) History of radiofrequency ablation (RFA) for complex left atrial arrhythmia (~12/2022) Presence of coronary angioplasty implant and graft (~10/06/22) History of tonsillectomy and adenoidectomy S/P eye surgery S/P knee replacement S/P hip replacement S/P shoulder replacement Social History (Reviewed 05/28/25 @ 08:47 by Shaista Dia Smoking Status: Former smoker quit date: 07/18/71 pack-years: 10 how long ago did patient quit smokin alcohol intake: current alcohol intake frequency: a few times a week Alcohol type: beer substance use type: does not use caffeine: Yes Type: coffee Number of servings: 2 ROS ROS ED Review of Systems ROS Unobtainable: other Constitutional Constitutional ED: Reports lethargy; Denies chills, fever(s), sweats or weight loss Eyes Eyes: Denies blurry vision, change in vision or diplopia ENT ENT ED: Denies rhinorrhea or sore throat Cardiovascular Cardiovascular: Reports other Details: Tachycardia ; Denies chest pain, orthopnea or racing heartbeat Respiratory/Chest Respiratory/Chest: Denies cough, dyspnea, dyspnea on exertion, orthopnea or sputum Gastrointestinal Gastrointestinal: Denies abdominal pain, diarrhea, nausea or vomiting Genitourinary Genitourinary ED: Denies dysuria, hematuria or urinary frequency Musculoskeletal Musculoskeletal: Denies arthralgias, back pain, myalgias or neck pain Integumentary Denies abscess, Abrasions or rash Neurologic Neurologic: Denies headache(s) or weakness Psychiatric Psychiatric: Denies anxiety, depression or suicidal thoughts Endocrine Endocrinology: Denies polydipsia, polyphagia or polyuria Hematologic/Lymphatic Hematologic/Lymphatic: Denies easy bleeding, easy bruising or lymphadenopathy Allergic/Immunologic Allergic/Immunologic ED: Denies mouth swelling, tongue swelling or urticaria EXAM Physical Exam Const Vital Signs: 07/01/25 10:52 07/01/25 13:39 07/01/25 13:45 Temperature 97.3 F L 98.1 F Temperature Source Temporal Pulse Rate 66 117 H Pulse Rate [1 (Initial Baseline)] 124 H Respiratory Rate 18 18 Respiratory Rate [1 (Initial Baseline)] 12 Blood Pressure 92/69 170/74 H Blood Pressure [1 (Initial Baseline)] 170/74 H Blood Pressure Mean 76 Baseline BP 170/74 Pulse Ox 100 100 Oxygen Delivery Method Room Air Room Air Oxygen Delivery Method [1 (Initial Baseline)] Room Air Oxygen Flow Rate (L/min) EtCo2 - Document during CPR and with ROSC EtCo2 - Document during CPR and with ROSC [1 (Initial Baseline)] 35 07/01/25 13:45 Temperature Temperature Source Pulse Rate 73 Pulse Rate [1 (Initial Baseline)] Respiratory Rate 16 Respiratory Rate [1 (Initial Baseline)] Blood Pressure 141/73 H Blood Pressure [1 (Initial Baseline)] Blood Pressure Mean Baseline BP Pulse Ox 100 Oxygen Delivery Method Nasal Cannula Oxygen Delivery Method [1 (Initial Baseline)] Oxygen Flow Rate (L/min) 2 EtCo2 - Document during CPR and with ROSC 35 EtCo2 - Document during CPR and with ROSC [1 (Initial Baseline)] Positive well nourished and well developed General Appearance ED: well developed and NAD HEENT Reports TM's clear and moist mucous membranes normocephalic and atraumatic; Negative for trauma or tenderness Tympanic Membrane ED: Yes TM's clear Eyes PERRL and EOMs intact bilaterally General Eye ED: Negative for pale conjunctiva or scleral icterus Neck no lymphadenopathy, supple and no JVD General: Negative for tenderness Chest Wall inspection of chest normal and palpation of chest normal Chest: Negative for tenderness Resp normal respiratory effort and clear to auscultation bilaterally Effort and Inspection: Negative for respiratory distress or pain with movement Auscultation: Negative for rhonchi, wheezes or diminished lung sounds Cardio S1 normal heart sound, S2 normal heart sound and no murmurs; Negative for regular rate or regular rhythm Rate: tachycardic and other Rhythm: abnormal rhythm irregularly irregular Peripheral Pulses: pulses 2+ throughout GI normal to inspection, nondistended, normoactive bowel sounds, soft to palpation, non-tender, non-distended and no masses Back/Spine no CVA tenderness and no thoracic nor lumbar tenderness Extremity normal to inspection General Extremety ED: Negative for edema General Extremity: Negative for edema Neuro oriented x3, CN's II-XII intact bilaterally, no sensory deficits noted and gait normal Sensorium / Orientation: awake, alert, oriented to person, oriented to place and oriented to time Motor Exam: strength 5/5 throughout and strength abnormal Psych mental status grossly normal Skin no rashes or lesions noted and no wounds MDM MDM MDM Narrative Medical decision making narrative: Patient presents with tachycardia with history of A-fib and had an ablation 2 years ago. Denies chest pain. Currently on Eliquis. Also on carvedilol. IV established. EKG obtained arrival showed atrial fibrillation with rate of 94 bpm occasional PVCs. CBC with differential obtained showed white count 6.6 with hemoglobin 11.3 and platelet count of 226. Chemistries unremarkable. BUN 17 and creat 1.11. Troponin was 27. Discussed case with cardiology Dr. Vernon who recommended cardioversion. Patient was given this option versus rate control. Patient states that cardiology in the past has had issue with increasing carvedilol because at times his systolic blood pressure was just barely around 100. They would like to try cardioversion. Patient will have procedural sedation with propofol. Patient was given a total of 60 mg of propofol with good sedation and he was cardioverted via synchronized cardioversion with 200 J back into a sinus rhythm. Patient tolerated procedure well. This point will be discharged to home and advised to follow-up with cardiology within next 3 to 5 days. Advised to continue with his Eliquis. I do not feel he is having an acute coronary syndrome. Patient advised to follow-up with cardiology or return to the ER if persistent tachycardia, chest pain, shortness of breath, or condition worsen anyway. Lab Data Labs: Laboratory Results - last 24 hr 07/01/25 11:15 WBC 6.6 RBC 3.63 L Hgb 11.3 L Hct 33.5 L MCV 92.3 MCH 31.1 MCHC 33.7 RDW Std Deviation 44.8 H RDW Coeff of Jar[place]o 13.4 Plt Count 226 MPV 9.4 Immature Gran % (Auto) 0.300 Neut % (Auto) 62.9 Lymph % (Auto) 27.4 Banks % (Auto) 7.2 Eos % (Auto) 1.7 Baso % (Auto) 0.5 Absolute Neuts (auto) 4.2 Absolute Lymphs (auto) 1.82 Nucleated RBC % 0 Sodium 134 Potassium 4.3 Chloride 99 Carbon Dioxide 24.5 Anion Gap 11 BUN 17 Creatinine 1.11 Estim Creat Clear Calc 55.72 Est GFR (MDRD) Non-Af 68 BUN/Creatinine Ratio 15.6 Glucose 147 H Calcium 9.1 Troponin T High Sens 27 H Radiography Diagnostic Testing: Clinical Impression(s) from Imaging Studies Chest X-Ray 07/01/25 12:20 IMPRESSION: Cardiomegaly. No evidence of acute cardiopulmonary pathology. Reading Location: [place] [id number] Procedures Procedural Sedation 1 (Initial Baseline): Consent Signed: Yes Any Problems With Anesthesia: No You/Your family experience fever (hyperthermia) w/anesthesia: No Sedation medication: Propofol Dose: 60 Maliampati Score: Class II ASA Classification: II Discharge Plan Triage Chief Complaint: Chest Other ED Provider: Rojas Saldaña Dx/Rx/DC Orders Clinical Impression: Atrial flutter, Encounter for cardioversion procedure Instructions: Electrical Cardioversion, ED Atrial Flutter Prescriptions: No Action gabapentin 300 mg capsule 300 mg PO BID aspirin 81 mg tablet 81 mg PO QDAY calcium carbonate [Tums] 200 mg calcium (500 mg) tablet,chewable 200 mg PO DAILY acetaminophen 325 mg capsule 650 mg PO Q6H PRN (Reason: fever or pain) Qty: 30 0RF citalopram 20 mg tablet 20 mg PO DAILY Eliquis 5 mg tablet 5 mg PO BID sacubitril-valsartan [Entresto] 49-51 mg tablet 1 tab PO BID furosemide 40 mg tablet 40 mg PO DAILY cholecalciferol (vitamin D3) [Vitamin D3] 25 mcg (1,000 unit) capsule 25 mcg PO DAILY allopurinol 100 mg tablet 100 mg PO BID pantoprazole 20 mg tablet,delayed release (DR/EC) 20 mg PO DAILY carvedilol 6.25 mg tablet 6.25 mg PO BID Qty: 180 3RF Rx Instructions: must administer with a meal/food atorvastatin [Lipitor] 40 mg tablet 40 mg PO QDAY Qty: 90 3RF Primary Care Provider: Michael Ko Chi Referrals: Osbaldo Vernon MD [Med Staff - Active Staff, Cardiology] - 3-5 Days Michael Ko Chi, MD [Primary Care Provider, Geriatrics] Print Language: Spanish Disposition Disposition: Home, Self Care
[2025-07-01 11:25] LABS: Hematocrit 33.5 % (40-54); Hemoglobin 11.3 g/dL (13.0-16.5); Immature Granulocytes Count 0.020 X10^3/uL (0.0-0.0); Mean Corp Hgb Conc 33.7 g/dL (32-36); Mean Corpuscular Volume 92.3 fL (80-94); Mean Platelet Vol. 9.4 fl (6.2-12.0); NRBC Flagged by Analyzer 0 % (0-5); Platelet Count 226 K/mm3 (150-450); RBC Distribution Width CV 13.4 % (11.6-14.6); RBC Distribution Width SD 44.8 fl (35.1-43.9); Red Blood Count 3.63 M/mm3 (4.6-6.2); White Blood Count 6.6 K/mm3 (4.4-11.0)
[2025-07-01 12:06] LABS: Anion Gap 11 (5-15); BUN 17 mg/dL (4-19); BUN/Creat Ratio 15.6 RATIO (10-20); Calcium,Total 9.1 mg/dL (7.6-11.0); Carbon Dioxide 24.5 mmol/L (21.0-32.0); Chloride 99 mmol/L (98-108); Estimated Creatinine Clearance 55.72 ml/min (50-250); Glucose 147 mg/dL (70-99); Potassium 4.3 mmol/L (3.3-5.1); Troponin T High Sensitivity 27 ng/L (<=22)
[2025-07-01] MEDS: 0.9% Normal Saline (1000mL) 1,000 ML 150 ML IV (12:09)
--- NOTE | 2025-07-01 12:20 | RAD_ITS ---
PROCEDURE: CHEST 1 VIEW (PORTABLE) 07/01/2025 REASON FOR EXAM: TACHYCARDIA TECHNIQUE: Frontal view of the chest. COMPARISON: Two-view chest, 01/02/2025. FINDINGS: The lungs are clear. There is no lobar consolidation or pleural effusion. There is cardiomegaly. There is calcific vascular disease of the thoracic aorta. The upper abdominal bowel gas pattern is normal. There is a right shoulder arthroplasty. RAD/Chest 1 View (Portable) IMPRESSION: Cardiomegaly. No evidence of acute cardiopulmonary pathology. Reading Location: [place] [address]
[2025-07-01 13:39] VITALS: BP 170/74; PULSE 117; RESP 18; TEMP 36.7; O2SAT 100
[2025-07-01 13:45] VITALS: BP 141/73; BP 170/74; PULSE 124; PULSE 73; RESP 12; RESP 16; O2SAT 100
[2025-07-01 13:50] VITALS: BP 113/62; PULSE 70; RESP 16; O2SAT 99
--- NOTE | 2025-07-01 13:50 | EKG12_ITS ---
Test Reason : NECK PAIN Blood Pressure : */* mmHG Vent. Rate : 92 BPM Atrial Rate : * BPM P-R Int : * ms QRS Dur : 116 ms QT Int : 376 ms P-R-T Axes : * -68 87 degrees QTcB Int : 464 ms Atrial fibrillation with premature ventricular or aberrantly conducted complexes Left anterior fascicular block Abnormal ECG Confirmed by DEEPAK VIDALES, PETER ([id number]), map editor GRETEL ESPINO ([id number]) on 07/02/2025 1:23:43 PM Referred By: NEIL Confirmed By: PETER SOTELO MD
[2025-07-01 13:55] VITALS: BP 113/61; PULSE 75; RESP 16; O2SAT 98
[2025-07-01 14:14] VITALS: BP 146/60; PULSE 75; RESP 18; TEMP 36.5; O2SAT 99
== END 2025-07-01 14:20 | disposition home or self-care (01) ==
PROVIDERS: Emergency Provider Emergency Medicine; PCP Family Medicine Geriatric Medicine; Visit Provider Emergency Medicine
DX: I48.92 Unspecified atrial flutter (principal); I48.91 Unspecified atrial fibrillation; Z87.891 Personal history of nicotine dependence; I49.3 Ventricular premature depolarization; I25.5 Ischemic cardiomyopathy; E78.2 Mixed hyperlipidemia; Z79.01 Long term (current) use of anticoagulants; I25.10 Atherosclerotic heart disease of native coronary artery without angina pectoris; Z95.5 Presence of coronary angioplasty implant and graft; I10 Essential (primary) hypertension
CPT/HCPCS: 71045; 80048; 84484; 85025; 92960; 93005; 96360; 96361; 99283; A4216